=== PATIENT | male | born 1965 | race Caucasian/White ===

== ENCOUNTER → 2017-08-17 | Outpatient (CLI) | payer OTHER ==
--- NOTE | 2017-08-17 17:24 | MR ---
MR brain without contrast HISTORY: Migraine, history of TIA Correlation of previous MR brain 05/22/2017 Plain multisequence imaging obtained through the brain. The restricted diffusion seen in the parietal lobe on previous exam is somewhat less conspicuous on t jimmy's exam. There is no hemorrhage or hydrocephalus. Brain signal is stable. Periventricular increas ed signal on inversion recovery and T2-weighted sequences present, measuring approximately 9 mm in gr eatest dimension and the left frontal lobe, 9 mm in the right parietal location. There are normal vas cular flow voids. The orbits show a symmetric appearance. The corpus callosum, pituitary, cervical me dullary junction, cerebellopontine angles show a stable appearance. IMPRESSION: Findings compatible with patient's history of prior infarct. Correlate for appropriate hi story. Consider additional causes of demyelination such as multiple sclerosis, migraine headaches, hy pertension, vasculitis.
== END | disposition home or self-care (01) ==
LOC: RADMRIMAIN 15:37
PROVIDERS: ATTEND Internal Medicine
DX: G43.909 Migraine, unspecified, not intractable, without status migrainosus (principal); Z86.73 Personal history of transient ischemic attack (TIA), and cerebral infarction without residual deficits
CPT/HCPCS: 70551

== ENCOUNTER → 2017-08-27 | Outpatient (CLI) | payer OTHER ==
--- NOTE | 2017-08-27 10:46 | US ---
EXAMINATION TYPE: US venous doppler duplex LE DATE OF EXAM: 08/27/2017 10:33 AM COMPARISON: NONE CLINICAL HISTORY: R22.42 Swelling of Left R22.41 Swelling of Right. Pt states bilateral leg swelling SIDE PERFORMED: Bilateral TECHNIQUE: The lower extremity deep venous system is examined utilizing real time linear array sonog annabel with graded compression, doppler sonography and color-flow sonography. VESSELS IMAGED: External Iliac Vein (EIV) Common Femoral Vein Deep Femoral Vein Greater Saphenous Vein * Femoral Vein Popliteal Vein Small Saphenous Vein * Proximal Calf Veins (* superficial vessels) Right Leg: Negative for DVT Left Leg: Negative for DVT IMPRESSION: 1. No deep venous thrombosis bilateral lower extremities by ultrasound.
== END | disposition home or self-care (01) ==
LOC: RADUSWWP 10:10
PROVIDERS: ATTEND Internal Medicine
DX: R22.43 Localized swelling, mass and lump, lower limb, bilateral (principal)
CPT/HCPCS: 93970

== ENCOUNTER → 2017-09-08 | Outpatient (CLI) | payer OTHER ==
--- NOTE | 2017-09-15 11:16 | P.ARTDOP ---
Arterial Doppler LOWER EXTREMITY ARTERIAL DOPPLER: DATE OF SERVICE: 09/08/2017 Reason for study: Suspected PVD. Doppler waveforms: Multiphasic bilaterally throughout. Pulse volume recording: Blunted at the ankle level and monophasic at the digital level, especially on the right. Pressure gradients: Significant at the toe level on the right and somewhat on the left. Ankle-brachial indices: Greater than 1 bilaterally. Toe pressures: 0 registered on the right, 60 on the left Impression: Suspect at least moderate distal disease right worse than left. Clinical correlation recommended..
== END | disposition home or self-care (01) ==
LOC: RADUSWWP 14:11
PROVIDERS: ATTEND Podiatrist Foot & Ankle Surgery
DX: I73.9 Peripheral vascular disease, unspecified (principal)
CPT/HCPCS: 93923

== ENCOUNTER → 2017-09-08 | Outpatient (CLI) | payer OTHER ==
--- NOTE | 2017-09-08 16:11 | CT ---
EXAMINATION TYPE: CT heart w calcium score DATE OF EXAM: 09/08/2017 COMPARISON: NONE HISTORY: Screening for cardiovascular disorder. 213.9. Family history of heart disease. CVA per order . CT DLP: 70.6 mGycm Automated exposure control for dose reduction was used. CT CALCIUM SCORING Coronary calcium is a marker for plaque (fatty deposits) in a blood vessel or atherosclerosis (harden ing of the arteries). The presence and amount of calcium detected in a coronary artery by the CT sca n, indicates the presence and amount of atherosclerotic plaque. These calcium deposits appear years before the development of heart disease symptoms such as chest pain and shortness of breath. A calcium score is computed for each of the coronary arteries based upon the volume and density of th e calcium deposits. This can be referred to as your calcified plaque burden. It does not correspond directly to the percentage of narrowing in the artery but does correlate with the severity of the un derlying coronary atherosclerosis. PROCEDURE TECHNIQUE - Prospective Gating was used. Slice thickness: 3mm. Density threshold (HU): 130, Pixel threshold: 3, Algorithm: discrete. RESULTS Region: LM Calcium Score (Agatston): 1 Volume (mm3): 2 Region: RCA Calcium Score (Agatston): 9 Volume (mm3): 18 Region: LAD Calcium Score (Agatston): 96 Volume (mm3): 135 Region: CX Calcium Score (Agatston): 26 Volume (mm3): 19 Region: Other1 Calcium Score (Agatston): 6 Volume (mm3): 11 Total: Calcium Score (Agatston): 138 Volume (mm3): 185 TOTAL CALCIUM SCORE: 138 OTHER: Small sized hiatal hernia is present. Dominant left circumflex artery noted. IMPRESSION: Calcium Score: 101-400 Implication: Definite, at least moderate atherosclerotic plaque. Risk of Coronary Artery Disease: Mild coronary artery disease highly likely, significant narrowings p ossible
== END | disposition home or self-care (01) ==
LOC: RADCTMAIN 15:07
PROVIDERS: ATTEND Internal Medicine Cardiovascular Disease
DX: I25.10 Atherosclerotic heart disease of native coronary artery without angina pectoris (principal); Z86.73 Personal history of transient ischemic attack (TIA), and cerebral infarction without residual deficits
CPT/HCPCS: 75571

== ENCOUNTER → 2017-09-09 | Outpatient (CLI) | payer OTHER | END | disposition home or self-care (01) | LOC: LABWHC1 10:32 | PROVIDERS: ATTEND Internal Medicine Cardiovascular Disease | DX: E11.9 Type 2 diabetes mellitus without complications (principal) | CPT/HCPCS: 36415; 83704 ==

== ENCOUNTER 2017-09-12 22:56 | Emergency (ER) | payer OTHER ==
[2017-09-12 23:06] VITALS: BP 122/72; PULSE 78; RESP 20; TEMP 98
[2017-09-12] MEDS ORDERED: OXYMETAZOLINE 0.05% NASL SPRAY 1 SPRAY BOTTLE NASAL STA (23:43)
--- NOTE | 2017-09-12 23:49 | ED ---
ENT HPI - General Chief complaint: ENT Stated complaint: Blood leaking from ear Time Seen by Provider: 09/12/17 23:13 Source: patient Mode of arrival: ambulatory Limitations: no limitations - History of Present Illness Initial comments: This patient is a 52-year-old man who presents to be evaluated for bleeding from his ear. Patient states that he may have scratched is here earlier he does not recall, but he noticed that there was a trickle of blood from his ear continue to return he checked it. Patient does take platelet age. Patient denies change in hearing or pain. MD complaint: other (Bleeding from the ear canal) -: hour(s) Location: R ear Severity: mild Severity scale (1-10): 0 Quality: other (No pain) Consistency: constant - Related Data Home Medications Medication Instructions Recorded Confirmed Aspirin 325 mg PO DAILY 09/12/17 09/23/17 Atorvastatin [Lipitor] 40 mg PO HS 09/12/17 09/23/17 Citalopram Hydrobromide [CeleXA] 40 mg PO QAM 09/12/17 09/23/17 Docusate Sodium [Dok] 100 mg PO BID 09/12/17 09/23/17 Gabapentin 600 mg PO HS 09/12/17 09/23/17 Glimepiride [Amaryl] 1 mg PO AC-BRKFST 09/12/17 09/23/17 Lisinopril [Zestril] 20 mg PO BID 09/12/17 09/23/17 Lurasidone HCl [Latuda] 20 mg PO HS 09/12/17 09/23/17 amLODIPine [Norvasc] 5 mg PO BID 09/12/17 09/23/17 cloNIDine HCL [Catapres] 0.2 mg PO TID 09/12/17 09/23/17 metFORMIN HCL 1,000 mg PO BID 09/12/17 09/23/17 sitaGLIPtin [Januvia] 100 mg PO QAM 09/12/17 09/23/17 Butalb/Asprin/Caff 50-325-40Mg 1 cap PO Q6H PRN 09/23/17 09/23/17 [Fiorinal 50-325-40 MG] Allergies Allergy/AdvReac Type Severity Reaction Status Date / Time Iodinated Contrast- Oral and Allergy Nausea & Verified 09/23/17 15:21 IV Dye Vomiting Review of Systems ROS Statement: Those systems with pertinent positive or pertinent negative responses have been documented in the HPI. ROS Other: All systems not noted in ROS Statement are negative. Constitutional: Denies: fever, chills ENT: Denies: ear pain, throat pain, hearing loss Respiratory: Denies: cough, dyspnea Cardiovascular: Denies: palpitations Skin: Denies: rash Neurological: Denies: headache, weakness, numbness Past Medical History Past Medical History: CVA/TIA, Hypertension History of Any Multi-Drug Resistant Organisms: None Reported Past Surgical History: No Surgical Hx Reported Past Psychological History: No Psychological Hx Reported Smoking Status: Never smoker Past Alcohol Use History: None Reported Past Drug Use History: None Reported General Exam Limitations: no limitations General appearance: alert, in no apparent distress Head exam: Present: atraumatic, normocephalic Eye exam: Present: normal appearance. Absent: scleral icterus, conjunctival injection ENT exam: Present: TM's normal bilaterally, normal external ear exam, other ( There is an excoriation in the right ear canal with a small amount of dark red blood at the site.) Neck exam: Present: normal inspection, full ROM. Absent: lymphadenopathy Skin exam: Present: warm, dry, normal color. Absent: rash Course Vital Signs 09/12/17 23:04 Temperature 98.0 F Pulse Rate 78 Respiratory 20 Rate Blood Pressure 122/72 O2 Sat by Pulse 100 Oximetry Medical Decision Making - Medical Decision Making I did apply a small amount of oxymetazoline alone using applicator swab, and then observed there was no active bleeding. Discussed appropriate further care and follow-up as well as return parameters. Disposition Clinical Impression: Excoriation of ear canal Disposition: HOME SELF-CARE Condition: Good Instructions: Earache (ED) Referrals: Lamar Scott MD [Primary Care Provider] - 1-2 days
== END 2017-09-13 00:57 | disposition home or self-care (01) ==
LOC: EC 22:56
DX: S00.411A Abrasion of right ear, initial encounter (principal); I10 Essential (primary) hypertension; Z86.73 Personal history of transient ischemic attack (TIA), and cerebral infarction without residual deficits; Z79.82 Long term (current) use of aspirin; Z79.899 Other long term (current) drug therapy; Z79.84 Long term (current) use of oral hypoglycemic drugs; Z91.041 Radiographic dye allergy status
CPT/HCPCS: 99282

== ENCOUNTER → 2017-09-25 | Outpatient (CLI) | payer OTHER ==
[2017-09-25 17:02] LABS: HCT 29.3 % (39.0-53.0); HGB 10.1 gm/dL (13.0-17.5); MCH 29.2 pg (25.0-35.0); MCHC 34.4 g/dL (31.0-37.0); MCV 84.8 fL (80.0-100.0); Mean Platelet Volume 6.9; Platelet Count 177 k/uL (150-450); RBC 3.45 m/uL (4.30-5.90); RDW 13.5 % (11.5-15.5); WBC 7.4 k/uL (3.8-10.6)
[2017-09-25 17:10] LABS: Potassium 4.6 mmol/L (3.5-5.1)
== END | disposition home or self-care (01) ==
LOC: LABPAT 16:04
PROVIDERS: ATTEND Internal Medicine Cardiovascular Disease
DX: Z01.812 Encounter for preprocedural laboratory examination (principal); R94.30 Abnormal result of cardiovascular function study, unspecified
CPT/HCPCS: 80051; 82565; 84520; 85027

== ENCOUNTER 2017-09-29 09:30 | Observation (INO) | payer OTHER ==
[2017-09-29] MEDS ORDERED: LORazepam 2 MG/ML INJ IV STA (09:37)
[2017-09-29] MEDS ORDERED: NITROGLYCERIN OINT 1 INCH/GM PACKET TOPICAL STA (09:37)
[2017-09-29] MEDS ORDERED: ASPIRIN 81 MG PO STA ×2 (09:37→11:29)
[2017-09-29] MEDS ORDERED: ONDANSETRON 4 MG/2 ML VIAL IVP STA (09:37)
--- NOTE | 2017-09-29 09:41 | ED ---
General Adult HPI - General Chief complaint: Weakness Stated complaint: Weakness Time Seen by Provider: 09/29/17 09:30 Source: patient, RN notes reviewed Mode of arrival: EMS Limitations: no limitations - History of Present Illness Initial comments: This is a 52-year-old male with past medical history of diabetes hypertension high cholesterol. Patient states that he also had some heart damage recently was supposed to be eating a catheterization today at 9:00. Patient also has had a stroke in the past. Patient comes in today stating that since last night his been having some chest pain radiates to his back is been short of breath states he is a little sweaty and nauseated. Patient states he vomited times one. Patient states currently has no chest pain but he does have some back pain still. Patient denies any abdominal pain patient denies any headache patient denies lightheadedness or dizziness. Patient denies any recent fever chills. Patient denies any cough. Patient also complains of having some tremors lately. He says the shaking seems of gotten worse today. - Related Data Home Medications Medication Instructions Recorded Confirmed Aspirin 325 mg PO DAILY 09/12/17 09/29/17 Atorvastatin [Lipitor] 40 mg PO HS 09/12/17 09/29/17 Citalopram Hydrobromide [CeleXA] 40 mg PO QAM 09/12/17 09/29/17 Docusate Sodium [Dok] 100 mg PO BID 09/12/17 09/29/17 Gabapentin 600 mg PO HS 09/12/17 09/29/17 Glimepiride [Amaryl] 1 mg PO AC-BRKFST 09/12/17 09/29/17 Lisinopril [Zestril] 20 mg PO BID 09/12/17 09/29/17 Lurasidone HCl [Latuda] 20 mg PO HS 09/12/17 09/29/17 amLODIPine [Norvasc] 5 mg PO BID 09/12/17 09/29/17 cloNIDine HCL [Catapres] 0.2 mg PO TID 09/12/17 09/29/17 metFORMIN HCL 1,000 mg PO BID 09/12/17 09/29/17 sitaGLIPtin [Januvia] 100 mg PO QAM 09/12/17 09/29/17 Butalb/Asprin/Caff 50-325-40Mg 1 cap PO Q6H PRN 09/23/17 09/29/17 [Fiorinal 50-325-40 MG] Allergies Allergy/AdvReac Type Severity Reaction Status Date / Time Iodinated Contrast- Oral and Allergy Nausea & Verified 09/29/17 09:52 IV Dye Vomiting Review of Systems ROS Statement: Those systems with pertinent positive or pertinent negative responses have been documented in the HPI. ROS Other: All systems not noted in ROS Statement are negative. Past Medical History Past Medical History: CVA/TIA, Diabetes Mellitus, Hyperlipidemia, Hypertension, Myocardial Infarction ([place]), Renal Disease, Rheumatoid Arthritis ([place]) Additional Past Medical History / Comment(s): stroke nov, migranes, diabetic neuropathy arms and legs, stage 2 kidney failure Last Myocardial Infarction Date:: 2014? not sure History of Any Multi-Drug Resistant Organisms: None Reported Past Surgical History: No Surgical Hx Reported Past Anesthesia/Blood Transfusion Reactions: Unable to Obtain Additional Past Anesthesia/Blood Transfusion Reaction / Comment(s): never had anethesia Past Psychological History: Anxiety, Depression Smoking Status: Never smoker Past Alcohol Use History: None Reported Past Drug Use History: None Reported - Past Family History Mother Family Medical History: CVA/TIA, Diabetes Mellitus, Hypertension Father Family Medical History: CVA/TIA, Diabetes Mellitus, Myocardial Infarction ([place]) General Exam - General Exam Comments Initial Comments: GENERAL: Patient is well-developed and well-nourished. Patient is nontoxic and well- hydrated and is in mild distress. ENT: Neck is soft and supple. No significant lymphadenopathy is noted. Oropharynx is clear. Moist mucous membranes. EYES: The sclera were anicteric and conjunctiva were pink and moist. Extraocular movements were intact and pupils were equal round and reactive to light. Eyelids were unremarkable. PULMONARY: Unlabored respirations. Good breath sounds bilaterally. No audible rales rhonchi or wheezing was noted. CARDIOVASCULAR: There is a regular rate and rhythm without any murmurs gallops or rubs. ABDOMEN: Soft and nontender with normal bowel sounds. No palpable organomegaly was noted. There is no palpable pulsatile mass. SKIN: Skin is clear with no lesions or rashes and otherwise unremarkable. NEUROLOGIC: Patient is alert and oriented x3. Cranial nerves II through XII are grossly intact. Motor and sensory are also intact. Normal speech, volume and content. Symmetrical smile. Patient has a slight tremor. MUSCULOSKELETAL: Normal extremities with adequate strength and full range of motion. No lower extremity swelling or edema. No calf tenderness. LYMPHATICS: No significant lymphadenopathy is noted PSYCHIATRIC: Normal psychiatric evaluation. Normal interpersonal interactions appears functionally intact in deals appropriately with others. No signs of depression. No signs of anxiety. Limitations: no limitations Course Vital Signs 09/29/17 09/29/17 09:34 10:32 Temperature 98.8 F Pulse Rate 92 93 Respiratory 18 17 Rate Blood Pressure 208/98 169/92 O2 Sat by Pulse 100 100 Oximetry Medical Decision Making - Medical Decision Making EKG shows normal sinus rhythm at 92 bpm OH interval 156 QRS 110 QT interval 380 QTC is 469. Patient's EKG shows no ST segment elevation or depression or T wave abnormalities are noted. I spoke with Kristi and she wanted the patient heparinized I spoke with the Dr. Pizarro he agreed to admit the patient admitted the patient I wrote admitting orders. I consult cardiology. I continued heparin and aspirin and Nitropaste on the floor. - Lab Data Result diagrams: 09/29/17 09:50 09/29/17 09:50 Lab Results 09/29/17 09/29/17 09/29/17 Range/Units 09:50 09:50 09:50 WBC 13.2 H (3.8-10.6) k/uL RBC 4.38 (4.30-5.90) m/uL Hgb 12.4 L (13.0-17.5) gm/dL Hct 36.6 L (39.0-53.0) % MCV 83.6 (80.0-100.0) fL MCH 28.3 (25.0-35.0) pg MCHC 33.8 (31.0-37.0) g/dL RDW 13.3 (11.5-15.5) % Plt Count 202 (150-450) k/uL Neutrophils % 88 % Lymphocytes % 7 % Monocytes % 4 % Eosinophils % 0 % Basophils % 0 % Neutrophils # 11.5 H (1.3-7.7) k/uL Lymphocytes # 0.9 L (1.0-4.8) k/uL Monocytes # 0.5 (0-1.0) k/uL Eosinophils # 0.1 (0-0.7) k/uL Basophils # 0.0 (0-0.2) k/uL PT (9.0-12.0) sec INR (<1.2) APTT (22.0-30.0) sec Sodium 143 (137-145) mmol/L Potassium 5.6 H (3.5-5.1) mmol/L Chloride 102 (98-107) mmol/L Carbon Dioxide 24 (22-30) mmol/L Anion Gap 17 mmol/L BUN 18 (9-20) mg/dL Creatinine 1.03 (0.66-1.25) mg/dL Est GFR (CKD-EPI)AfAm >90 (>60 ml/min/1.73 sqM) Est GFR (CKD-EPI)NonAf 85 (>60 ml/min/1.73 sqM) Glucose 278 H (74-99) mg/dL Calcium 10.0 (8.4-10.2) mg/dL Magnesium 1.5 L (1.6-2.3) mg/dL Total Bilirubin 0.6 (0.2-1.3) mg/dL AST 22 (17-59) U/L ALT 39 (21-72) U/L Alkaline Phosphatase 125 (38-126) U/L Total Creatine Kinase 143 (55-170) U/L CK-MB (CK-2) 2.3 (0.0-2.4) ng/mL CK-MB (CK-2) Rel Index 1.6 Troponin I <0.012 (0.000-0.034) ng/mL Total Protein 8.0 (6.3-8.2) g/dL Albumin 4.9 (3.5-5.0) g/dL 09/29/17 Range/Units 09:50 WBC (3.8-10.6) k/uL RBC (4.30-5.90) m/uL Hgb (13.0-17.5) gm/dL Hct (39.0-53.0) % MCV (80.0-100.0) fL MCH (25.0-35.0) pg MCHC (31.0-37.0) g/dL RDW (11.5-15.5) % Plt Count (150-450) k/uL Neutrophils % % Lymphocytes % % Monocytes % % Eosinophils % % Basophils % % Neutrophils # (1.3-7.7) k/uL Lymphocytes # (1.0-4.8) k/uL Monocytes # (0-1.0) k/uL Eosinophils # (0-0.7) k/uL Basophils # (0-0.2) k/uL PT 10.8 (9.0-12.0) sec INR 1.1 (<1.2) APTT 23.2 (22.0-30.0) sec Sodium (137-145) mmol/L Potassium (3.5-5.1) mmol/L Chloride (98-107) mmol/L Carbon Dioxide (22-30) mmol/L Anion Gap mmol/L BUN (9-20) mg/dL Creatinine (0.66-1.25) mg/dL Est GFR (CKD-EPI)AfAm (>60 ml/min/1.73 sqM) Est GFR (CKD-EPI)NonAf (>60 ml/min/1.73 sqM) Glucose (74-99) mg/dL Calcium (8.4-10.2) mg/dL Magnesium (1.6-2.3) mg/dL Total Bilirubin (0.2-1.3) mg/dL AST (17-59) U/L ALT (21-72) U/L Alkaline Phosphatase (38-126) U/L Total Creatine Kinase (55-170) U/L CK-MB (CK-2) (0.0-2.4) ng/mL CK-MB (CK-2) Rel Index Troponin I (0.000-0.034) ng/mL Total Protein (6.3-8.2) g/dL Albumin (3.5-5.0) g/dL Critical Care Time Critical Care Time: Yes Total Critical Care Time: 35 Disposition Clinical Impression: Unstable angina, Acute vomiting Disposition: ADMITTED IP TO THIS HOSP Referrals: Lamar Scott MD [Primary Care Provider] - 1-2 days Time of Disposition: 11:29
[2017-09-29 10:09] LABS: Basophils % (A) 0 %; Eosinophils # (A) 0.1 k/uL (0-0.7); Eosinophils % (A) 0 %; HCT 36.6 % (39.0-53.0); HGB 12.4 gm/dL (13.0-17.5); Lymphocytes # (A) 0.9 k/uL (1.0-4.8); Lymphocytes % (A) 7 %; MCH 28.3 pg (25.0-35.0); MCHC 33.8 g/dL (31.0-37.0); MCV 83.6 fL (80.0-100.0); Mean Platelet Volume 6.8; Monocytes # (A) 0.5 k/uL (0-1.0); Monocytes % (A) 4 %; Neutrophils # (A) 11.5 k/uL (1.3-7.7); Neutrophils % (A) 88 %; Platelet Count 202 k/uL (150-450); RBC 4.38 m/uL (4.30-5.90); RDW 13.3 % (11.5-15.5); WBC 13.2 k/uL (3.8-10.6)
[2017-09-29 10:12] LABS: INR 1.1 (<1.2); Partial Thromboplastin Time 23.2 sec (22.0-30.0); Prothrombin Time 10.8 sec (9.0-12.0)
[2017-09-29 10:17] LABS: ALT 39 U/L (21-72); AST 22 U/L (17-59); Albumin 4.9 g/dL (3.5-5.0); Alkaline Phosphatase 125 U/L (38-126); Blood Urea Nitrogen 18 mg/dL (9-20); Carbon Dioxide 24 mmol/L (22-30); Glucose 278 mg/dL (74-99); Magnesium 1.5 mg/dL (1.6-2.3); Potassium 5.6 mmol/L (3.5-5.1); Sodium 143 mmol/L (137-145); Total Bilirubin 0.6 mg/dL (0.2-1.3)
--- NOTE | 2017-09-29 10:19 | XR ---
EXAMINATION TYPE: XR chest 2V DATE OF EXAM: 09/29/2017 COMPARISON: NONE HISTORY: Shortness of breath TECHNIQUE: Frontal and lateral views of the chest are obtained. FINDINGS: Scattered senescent parenchymal changes noted. Hyperinflation compatible with COPD. No evidence for infiltrate. No evidence for atelectasis. Heart size is stable. Mediastinal structures are stable and grossly unremarkable. No evidence for hilar prominence. Degenerative changes dorsal spine. IMPRESSION: 1. No evidence for acute pulmonary disease.
[2017-09-29 10:31] LABS: Anion Gap 17 mmol/L; Chloride 102 mmol/L (98-107)
[2017-09-29 10:37] LABS: Creatine Kinase 143 U/L (55-170)
[2017-09-29 10:49] LABS: Creatine Kinase MB 2.3 ng/mL (0.0-2.4); Troponin I <0.012 ng/mL (0.000-0.034)
[2017-09-29] MEDS ORDERED: MAGNESIUM SULFATE-D5W PMX 1 GM in DEXTROSE/WATER 1 100ML.BAG IVPB ONE (10:53)
[2017-09-29] MEDS ORDERED: HEPARIN SODIUM,PORCINE 5,000 UNIT/ML 1 ML VIAL IV ONE (11:26)
[2017-09-29] MEDS ORDERED: NITROGLYCERIN SL TABS 0.4 MG TAB SUBLINGUAL PRN (11:29)
[2017-09-29] MEDS ORDERED: HEPARIN SOD,PORK IN 0.45% NACL 25,000 UNIT in 0.45% NACL 1 500ML.BAG IV SCH (11:30)
[2017-09-29 16:38] LABS: Creatine Kinase MB 1.6 ng/mL (0.0-2.4); Troponin I 0.031 ng/mL (0.000-0.034)
[2017-09-29] MEDS ORDERED: amLODIPine 10 MG TAB PO SCH (17:00)
--- NOTE | 2017-09-29 17:01 | P.CRDCN ---
History of Present Illness Consult date: 09/29/17 Requesting physician: Bryant Pizarro Chief complaint: Fever or chills History of present illness: This is a 52-year-old gentleman with a documented history of diabetes , hypertension, hyperlipidemia, recent CVA, family history of premature coronary artery disease, who underwent a [facility] test at [facility], which revealed evidence of moderate size perfusion defect in the inferior lateral segment with partial reversibility. For this reason he was advised to undergo cardiac catheterization which was actually scheduled as an outpatient for him today. According to the patient, over the past couple of days he has been running fever and chills at home. As of this morning he started also vomiting a significant amount at home and continuing to have chills. For this reason he came to the emergency room for further evaluation. He denies any overt chest discomfort but states he does have a discomfort which starts of his rib cage and radiates up his back. Chest x-ray does not reveal any evidence for acute pulmonary disease. EKG shows a normal sinus rhythm with incomplete left bundle branch block and nonspecific ST-T wave changes. White blood cell count 13.2, hemoglobin 12.4, platelet count 202. Sodium 143, potassium 5.6, BUN 18, creatinine 1.0. Magnesium level on admission 1.5. Troponin 0.012. At the time of my examination today, patient continues to have chills, denies any chest pain. Vomiting seems to have subsided. Temperature on arrival 98.8, blood pressure on arrival 208/98, heart rate in the 90s, 100% on room air. Past Medical History Past Medical History: CVA/TIA, Diabetes Mellitus, Hyperlipidemia, Hypertension, Myocardial Infarction ([place]), Renal Disease, Rheumatoid Arthritis (RA) Additional Past Medical History / Comment(s): NIDDM type II, neuropathy bilateral hands/arms and feet/legs, diabetic retinopathy bilaterally/legally blind, silent ND per echo/stress test, CVA 04/2017, chronic kidney disease stage II, migraines. Last Myocardial Infarction Date:: unknown-silent History of Any Multi-Drug Resistant Organisms: None Reported Past Surgical History: No Surgical Hx Reported Past Anesthesia/Blood Transfusion Reactions: Unable to Obtain Additional Past Anesthesia/Blood Transfusion Reaction / Comment(s): never had anethesia Smoking Status: Never smoker - Past Family History Mother Family Medical History: CVA/TIA, Diabetes Mellitus, Hypertension Additional Family Medical History / Comment(s): Mother is 77yrs old. Father Family Medical History: CVA/TIA, Diabetes Mellitus, Myocardial Infarction (ND) Additional Family Medical History / Comment(s): Father of a ND in his 50s. Medications and Allergies Home Medications Medication Instructions Recorded Confirmed Type Aspirin 325 mg PO DAILY 09/12/17 09/29/17 History Atorvastatin [Lipitor] 40 mg PO HS 09/12/17 09/29/17 History Citalopram Hydrobromide [CeleXA] 40 mg PO QAM 09/12/17 09/29/17 History Docusate Sodium [Dok] 100 mg PO BID 09/12/17 09/29/17 History Gabapentin 600 mg PO HS 09/12/17 09/29/17 History Glimepiride [Amaryl] 1 mg PO AC-BRKFST 09/12/17 09/29/17 History Lisinopril [Zestril] 20 mg PO BID 09/12/17 09/29/17 History Lurasidone HCl [Latuda] 20 mg PO HS 09/12/17 09/29/17 History amLODIPine [Norvasc] 5 mg PO BID 09/12/17 09/29/17 History cloNIDine HCL [Catapres] 0.2 mg PO TID 09/12/17 09/29/17 History metFORMIN HCL 1,000 mg PO BID 09/12/17 09/29/17 History sitaGLIPtin [Januvia] 100 mg PO QAM 09/12/17 09/29/17 History Butalb/Asprin/Caff 50-325-40Mg 1 cap PO Q6H PRN 09/23/17 09/29/17 History [Fiorinal 50-325-40 MG] Allergies Allergy/AdvReac Type Severity Reaction Status Date / Time Iodinated Contrast- Oral and Allergy Nausea & Verified 09/29/17 09:52 IV Dye Vomiting Physical Exam Vitals: Vital Signs Temp Pulse Resp BP Pulse Ox 09/29/17 14:35 98.3 F 76 16 152/77 99 09/29/17 13:14 86 18 170/83 100 09/29/17 12:41 91 17 145/77 97 09/29/17 11:33 98.4 F 80 18 151/72 100 09/29/17 10:32 93 17 169/92 100 09/29/17 09:34 98.8 F 92 18 208/98 100 Intake and Output 09/29/17 09/29/17 09/29/17 06:59 14:59 22:59 Other: Weight 86.183 kg PHYSICAL EXAMINATION: 52-year-old male, currently experiencing chills HEENT: Head is atraumatic, normocephalic. Pupils equal, round. Neck is supple. There is no elevated jugular venous pressure. HEART EXAMINATION: Heart S1, S2 normal. No murmur or gallop heard. CHEST EXAMINATION: Lungs are clear to auscultation and precussion. No chest wall tenderness is noted on palpation or with deep breathing. ABDOMEN: Soft, nontender. Bowel sounds are heard. No organomegaly noted. EXTREMITIES: 2+ peripheral pulses with no evidence of peripheral edema and no calf tenderness noted. NEUROLOGIC patient is awake, alert and oriented -3. . Results 09/29/17 09:50 09/29/17 09:50 Cardiac Enzymes 09/29/17 09/29/17 Range/Units 09:50 09:50 AST 22 (17-59) U/L CK-MB (CK-2) 2.3 (0.0-2.4) ng/mL Troponin I <0.012 (0.000-0.034) ng/mL Coagulation 09/29/17 Range/Units 09:50 PT 10.8 (9.0-12.0) sec APTT 23.2 (22.0-30.0) sec CBC 09/29/17 Range/Units 09:50 WBC 13.2 H (3.8-10.6) k/uL RBC 4.38 (4.30-5.90) m/uL Hgb 12.4 L (13.0-17.5) gm/dL Hct 36.6 L (39.0-53.0) % Plt Count 202 (150-450) k/uL Comprehensive Metabolic Panel 09/29/17 Range/Units 09:50 Sodium 143 (137-145) mmol/L Potassium 5.6 H (3.5-5.1) mmol/L Chloride 102 (98-107) mmol/L Carbon Dioxide 24 (22-30) mmol/L BUN 18 (9-20) mg/dL Creatinine 1.03 (0.66-1.25) mg/dL Glucose 278 H (74-99) mg/dL Calcium 10.0 (8.4-10.2) mg/dL AST 22 (17-59) U/L ALT 39 (21-72) U/L Alkaline Phosphatase 125 (38-126) U/L Total Protein 8.0 (6.3-8.2) g/dL Albumin 4.9 (3.5-5.0) g/dL Current Medications Generic Name Dose Route Start Last Admin Trade Name Freq PRN Reason Stop Dose Admin Aspirin 325 mg 09/30/17 09:00 Aspirin PO DAILY [facility] Heparin Sodium/Sodium Chloride 500 mls @ 19.99 mls/hr 09/29/17 11:30 12:40 25,000 unit/ Sodium Chloride IV 11.6 units/kg/hr .Q24H JAD 19.99 mls/hr Protocol Administration 11.6 UNITS/KG/HR Nitroglycerin 1 inch 09/29/17 18:00 Nitro-Bid Oint TOPICAL Q6HR [facility] Nitroglycerin 0.4 mg 09/29/17 11:29 Nitrostat SUBLINGUAL Q5M PRN Chest Pain Intake and Output 09/29/17 09/29/17 09/29/17 06:59 14:59 22:59 Other: Weight 86.183 kg Patient Weight 09/30/17 06:59 Weight 86.183 kg 09/29/17 09:50 09/29/17 09:50 EKG Interpretations (text) EKG shows normal sinus rhythm with an incomplete right bundle branch block pattern. Assessment and Plan Plan: Assessment and plan #1 symptoms of 2 day duration of fever and chills, vomiting, rule out influenza. White blood cell count 13.2 on admission. Temperature 98.8 on admission. #2 hypertension, blood pressure 208/98 on admission. #3 symptoms of back discomfort, with some radiation to the chest. Initial troponin 0.012, subsequent troponin 0.031. #4 hypomagnesemia, replaced #5 hyperkalemia, potassium 5.6 #6 diabetes #7 hyperlipidemia #8 prior stroke #9 family history of premature coronary artery disease #10 recent stress test positive for reversible ischemia, patient was scheduled to undergo cardiac catheterization as an outpatient today. This has currently been deferred. Plan We will obtain copy of recent echo performed in the office. We'll also obtain a flu swab. Reorder patient's antihypertensive medications. At this point in time, the cardiac catheterization has been placed on hold, we will continue to follow. DNP note has been reviewed, I agree with a documented findings and plan of care. Patient was seen and examined.
[2017-09-29 17:02] LABS: Glucose,Whole Blood 170 mg/dL (75-99)
[2017-09-29 18:41] LABS: Anion Gap 12 mmol/L; Blood Urea Nitrogen 17 mg/dL (9-20); Calcium 9.4 mg/dL (8.4-10.2); Carbon Dioxide 25 mmol/L (22-30); Chloride 103 mmol/L (98-107); Glucose 165 mg/dL (74-99); Potassium 4.6 mmol/L (3.5-5.1); Sodium 140 mmol/L (137-145)
[2017-09-29] MEDS: cloNIDine HCL 0.2 MG TAB PO SCH ×2 (18:55→21:28)
[2017-09-29] MEDS: NITROGLYCERIN OINT 1 INCH/GM PACKET TOPICAL SCH ×2 (18:56→23:35)
[2017-09-29 20:50] LABS: Glucose,Whole Blood 227 mg/dL (75-99)
[2017-09-29] MEDS: LURASIDONE 40 MG TAB PO SCH (21:21)
[2017-09-29] MEDS: DOCUSATE 100 MG CAP PO SCH (21:21)
[2017-09-29] MEDS: GABAPENTIN 300 MG CAP PO SCH (21:21)
[2017-09-29] MEDS: MELATONIN 3 MG TABLET PO SCH (21:27)
[2017-09-29] MEDS: INSULIN ASPART 100 UNIT/ML 1 ML 10 ML VIAL SQ SCH (21:28)
[2017-09-29 21:37] LABS: Creatine Kinase MB 1.4 ng/mL (0.0-2.4); Troponin I 0.025 ng/mL (0.000-0.034)
--- NOTE | 2017-09-30 00:57 | P.HPIM ---
History of Present Illness H&P Date: 09/29/17 Chief Complaint: Fever and chills Patient is a 52-year-old male with a known history of hypertension, hyperlipidemia, history of CVA with mild residual left-sided weakness and diabetes type 2 came to ER with complaints of fever and chills and episode of vomiting in the morning today. Patient was taking shower and became very shaky. Patient did have some chest discomfort and was radiating to the back as a time. Currently patient denied any chest pain. Chest x-ray showed no evidence of acute cardio pulmonary process EKG showed normal sinus rhythm. Patient is supposed to have cardiac catheterization today. Patient is following with cardiology clinic and recently had stress test which showed moderate reversible ischemia. Influenza is negative. Currently saturating well on room air. Blood pressure 208/108 on admission Initial troponin 0.012, subsequent troponin 0.031. Review of Systems Constitutional: Fever and chills . No generalized weakness or weight loss. Abdomen: Patient denied nausea vomiting and diarrhea and abdominal pain. Cardiovascular: Chest pain. No short of breath no palpitations. Respiratory: patient denied any cough is from production. No shortness of breath Neurologic: Patient denied any numbness or tingling headache. Musculoskeletal: Patient denies any complaints of joint swelling or deformity. Skin: Negative Psychiatric: Negative Endocrine: No heat or cold intolerance. No recent weight gain. Genitourinary: No dysuria or hematuria. All other 14 point ROS negative except the above Past Medical History Past Medical History: CVA/TIA, Diabetes Mellitus, Hyperlipidemia, Hypertension, Myocardial Infarction ([place]), Renal Disease, Rheumatoid Arthritis (RA) Additional Past Medical History / Comment(s): stroke nov, migranes, diabetic neuropathy arms and legs, stage 2 kidney failure Last Myocardial Infarction Date:: 2014? not sure History of Any Multi-Drug Resistant Organisms: None Reported Past Surgical History: No Surgical Hx Reported Past Anesthesia/Blood Transfusion Reactions: Unable to Obtain Additional Past Anesthesia/Blood Transfusion Reaction / Comment(s): never had anethesia Past Psychological History: Anxiety, Depression Smoking Status: Never smoker Past Alcohol Use History: None Reported Past Drug Use History: None Reported - Past Family History Mother Family Medical History: CVA/TIA, Diabetes Mellitus, Hypertension Father Family Medical History: CVA/TIA, Diabetes Mellitus, Myocardial Infarction ([place]) Medications and Allergies Home Medications Medication Instructions Recorded Confirmed Type Aspirin 325 mg PO DAILY 09/12/17 09/29/17 History Atorvastatin [Lipitor] 40 mg PO HS 09/12/17 09/29/17 History Citalopram Hydrobromide [CeleXA] 40 mg PO QAM 09/12/17 09/29/17 History Docusate Sodium [Dok] 100 mg PO BID 09/12/17 09/29/17 History Gabapentin 600 mg PO HS 09/12/17 09/29/17 History Glimepiride [Amaryl] 1 mg PO AC-BRKFST 09/12/17 09/29/17 History Lisinopril [Zestril] 20 mg PO BID 09/12/17 09/29/17 History Lurasidone HCl [Latuda] 20 mg PO HS 09/12/17 09/29/17 History amLODIPine [Norvasc] 5 mg PO BID 09/12/17 09/29/17 History cloNIDine HCL [Catapres] 0.2 mg PO TID 09/12/17 09/29/17 History metFORMIN HCL 1,000 mg PO BID 09/12/17 09/29/17 History sitaGLIPtin [Januvia] 100 mg PO QAM 09/12/17 09/29/17 History Butalb/Asprin/Caff 50-325-40Mg 1 cap PO Q6H PRN 09/23/17 09/29/17 History [Fiorinal 50-325-40 MG] Allergies Allergy/AdvReac Type Severity Reaction Status Date / Time Iodinated Contrast- Oral and Allergy Nausea & Verified 09/29/17 09:52 IV Dye Vomiting Physical Exam Vitals: Vital Signs Temp Pulse Resp BP Pulse Ox 09/29/17 12:41 91 17 145/77 97 09/29/17 11:33 98.4 F 80 18 151/72 100 09/29/17 10:32 93 17 169/92 100 09/29/17 09:34 98.8 F 92 18 208/98 100 Intake and Output 09/28/17 09/29/17 09/29/17 22:59 06:59 14:59 Other: Weight 86.183 kg PHYSICAL EXAMINATION: Patient is lying in the bed comfortably, no acute distress, awake alert and oriented.. HEENT: Normocephalic. Neck is supple. Pupils reactive. Nostrils clear. Oral cavity is moist. Ears reveal no drainage. Neck reveals no JVD, carotid bruits, or thyromegaly. CHEST EXAMINATION: Trachea is central. Symmetrical expansion. Lung ricks clear to auscultation and percussion. CARDIAC: Normal S1, S2 with no gallops. No murmurs ABDOMEN: Soft. Bowel sounds normal. No organomegaly. No abdominal bruits. Extremities: reveal no edema. No clubbing or cyanosis Neurologically awake, alert, oriented x3 with well-coordinated movements. No focal deficits noted Skin: No rash or skin lesions. Psychiatric: Coperative. Nonsuicidal Musculoskeletal: No joint swelling or deformity. Normal range of motion. Results CBC & Chem 7: 09/29/17 09:50 09/29/17 17:46 Labs: Abnormal Lab Results - Last 24 Hours (Table) 09/29/17 09/29/17 Range/Units 09:50 09:50 WBC 13.2 H (3.8-10.6) k/uL Hgb 12.4 L (13.0-17.5) gm/dL Hct 36.6 L (39.0-53.0) % Neutrophils # 11.5 H (1.3-7.7) k/uL Lymphocytes # 0.9 L (1.0-4.8) k/uL Potassium 5.6 H (3.5-5.1) mmol/L Glucose 278 H (74-99) mg/dL Magnesium 1.5 L (1.6-2.3) mg/dL Thrombosis Risk Factor Assmnt - DVT/VTE Prophylaxis DVT/VTE Prophylaxis: Pharmacologic Prophylaxis ordered Assessment and Plan Assessment: Fever and chills on admission likely due to viral illness. Influenza negative. Hypertensive urgency on admission Atypical chest pain. Mainly right lower rib cage. Rule out ACS Hyperkalemia mild hypomagnesemia Diabetes type 2 [id number] Hypertension History of CVA with mild left-sided weakness Recent stress test [facility] office showed moderate ischemia reversible. Patient is supposed to get cardiac Catheterization today morning. Plan: Patient be continued on telemetry monitoring. Serial troponin and EKG. Patient was started on heparin drip and cardiology is following. Continue with aspirin and statins. Further recommendations based on the clinical course. Time with Patient: Greater than 30
[2017-09-30 01:27] LABS: Hemoglobin A1C 6.8 % (4.0-6.0)
[2017-09-30 04:57] LABS: Basophils % (A) 0 %; Eosinophils # (A) 0.1 k/uL (0-0.7); Eosinophils % (A) 1 %; HCT 31.2 % (39.0-53.0); HGB 10.9 gm/dL (13.0-17.5); Lymphocytes # (A) 2.2 k/uL (1.0-4.8); Lymphocytes % (A) 29 %; MCHC 34.8 g/dL (31.0-37.0); MCV 83.1 fL (80.0-100.0); Mean Platelet Volume 6.6; Monocytes # (A) 0.6 k/uL (0-1.0); Monocytes % (A) 7 %; Neutrophils # (A) 4.4 k/uL (1.3-7.7); Neutrophils % (A) 59 %; Platelet Count 204 k/uL (150-450); RBC 3.75 m/uL (4.30-5.90); RDW 13.3 % (11.5-15.5); WBC 7.5 k/uL (3.8-10.6)
[2017-09-30 05:13] LABS: Calcium 9.1 mg/dL (8.4-10.2); Potassium 4.4 mmol/L (3.5-5.1)
[2017-09-30 06:13] LABS: Glucose,Whole Blood 197 mg/dL (75-99)
[2017-09-30] MEDS: NITROGLYCERIN OINT 1 INCH/GM PACKET TOPICAL SCH ×2 (06:35→13:01)
[2017-09-30] MEDS: INSULIN ASPART 100 UNIT/ML 1 ML 10 ML VIAL SQ SCH ×4 (06:36→21:04)
[2017-09-30] MEDS ORDERED: ATORVASTATIN 40 MG TAB PO SCH (09:00)
[2017-09-30] MEDS ORDERED: ASPIRIN 325 MG TAB PO SCH (09:00)
[2017-09-30] MEDS: LISINOPRIL 20 MG TAB PO SCH (10:04)
[2017-09-30] MEDS: amLODIPine 5 MG TAB PO SCH ×2 (10:05→20:39)
[2017-09-30] MEDS: ATORVASTATIN 20 MG TAB PO SCH ×2 (10:05→20:39)
[2017-09-30] MEDS: DOCUSATE 100 MG CAP PO SCH ×2 (10:05→20:40)
[2017-09-30] MEDS: cloNIDine HCL 0.2 MG TAB PO SCH ×3 (10:05→20:40)
[2017-09-30 11:53] LABS: Glucose,Whole Blood 190 mg/dL (75-99)
--- NOTE | 2017-09-30 12:50 | P.PN ---
Subjective Progress Note Date: 09/30/17 This is a 52-year-old gentleman with a documented history of diabetes , hypertension, hyperlipidemia, recent CVA, family history of premature coronary artery disease, who underwent a stress test at [facility], which revealed evidence of moderate size perfusion defect in the inferior lateral segment with partial reversibility. For this reason he was advised to undergo cardiac catheterization which was actually scheduled as an outpatient for him today. According to the patient, over the past couple of days he has been running fever and chills at home. As of this morning he started also vomiting a significant amount at home and continuing to have chills. For this reason he came to the emergency room for further evaluation. He denies any overt chest discomfort but states he does have a discomfort which starts of his rib cage and radiates up his back. Chest x-ray does not reveal any evidence for acute pulmonary disease. EKG shows a normal sinus rhythm with incomplete left bundle branch block and nonspecific ST-T wave changes. White blood cell count 13.2, hemoglobin 12.4, platelet count 202. Sodium 143, potassium 5.6, BUN 18, creatinine 1.0. Magnesium level on admission 1.5. Troponin 0.012. At the time of my examination today, patient continues to have chills, denies any chest pain. Vomiting seems to have subsided. Temperature on arrival 98.8, blood pressure on arrival 208/98, heart rate in the 90s, 100% on room air. 09/30/2017 Patient was seen and examined this morning, denies any further chills, no further nausea or vomiting. Blood pressure 120/60 with a heart rate in the 60s , temperature 98.1, 98% on room air. Afebrile. White blood cell count this morning 9.5, hemoglobin 10.9. Sodium 141, potassium 4.4, BUN 22, creatinine 1.2. Liver enzymes normal. Magnesium level I.8. Troponins 0.012, 0.031, 0.025. Influenza A and B-. Blood cultures pending. Objective - Vital Signs Vital signs: Vital Signs Temp 97.9 F 09/30/17 08:00 Pulse 75 09/30/17 08:00 Resp 18 09/30/17 08:00 BP 150/74 09/30/17 08:00 Pulse Ox 99 09/30/17 08:00 Intake & Output 09/29/17 09/30/17 09/30/17 18:59 06:59 18:59 Intake Total 849.558 60 Balance 849.558 60 Weight 86.183 kg 81.4 kg Intake: IV 120 Heparin Sod,Pork in 0.45% 120 NaCl 25,000 unit In 0.45 % NaCl 1 500ml.bag @ 11.6 UNITS/KG/HR 19.99 mls/hr IV .Q24H JAD Rx#: [id number] Intake, IV Titration 369.558 Amount Heparin Sod,Pork in 0.45% 369.558 NaCl 25,000 unit In 0.45 % NaCl 1 500ml.bag @ 11.6 UNITS/KG/HR 19.99 mls/hr IV .Q24H JAD Rx#: [id number] Oral 360 60 Other: # Voids 1 - Exam PHYSICAL EXAMINATION: 52-year-old male, currently experiencing chills HEENT: Head is atraumatic, normocephalic. Pupils equal, round. Neck is supple. There is no elevated jugular venous pressure. HEART EXAMINATION: Heart S1, S2 normal. No murmur or gallop heard. CHEST EXAMINATION: Lungs are clear to auscultation and precussion. No chest wall tenderness is noted on palpation or with deep breathing. ABDOMEN: Soft, nontender. Bowel sounds are heard. No organomegaly noted. EXTREMITIES: 2+ peripheral pulses with no evidence of peripheral edema and no calf tenderness noted. NEUROLOGIC patient is awake, alert and oriented -3. - Labs CBC & Chem 7: 09/30/17 04:07 09/30/17 04:07 Labs: Abnormal Lab Results - Last 24 Hours (Table) 09/29/17 09/29/17 09/29/17 Range/Units 16:51 17:46 20:49 RBC (4.30-5.90) m/uL Hgb (13.0-17.5) gm/dL Hct (39.0-53.0) % APTT (22.0-30.0) sec BUN (9-20) mg/dL Glucose 165 H (74-99) mg/dL POC Glucose (mg/dL) 170 H 227 H (75-99) mg/dL Hemoglobin A1c (4.0-6.0) % HDL Cholesterol (40-60) mg/dL 09/29/17 09/29/17 09/30/17 Range/Units 20:52 20:52 04:07 RBC (4.30-5.90) m/uL Hgb (13.0-17.5) gm/dL Hct (39.0-53.0) % APTT 31.0 H (22.0-30.0) sec BUN 22 H (9-20) mg/dL Glucose 155 H (74-99) mg/dL POC Glucose (mg/dL) (75-99) mg/dL Hemoglobin A1c 6.8 H (4.0-6.0) % HDL Cholesterol 36 L (40-60) mg/dL 09/30/17 09/30/17 09/30/17 Range/Units 04:07 04:07 06:12 RBC 3.75 L (4.30-5.90) m/uL Hgb 10.9 L (13.0-17.5) gm/dL Hct 31.2 L (39.0-53.0) % APTT 31.3 H (22.0-30.0) sec BUN (9-20) mg/dL Glucose (74-99) mg/dL POC Glucose (mg/dL) 197 H (75-99) mg/dL Hemoglobin A1c (4.0-6.0) % HDL Cholesterol (40-60) mg/dL 09/30/17 Range/Units 11:24 RBC (4.30-5.90) m/uL Hgb (13.0-17.5) gm/dL Hct (39.0-53.0) % APTT (22.0-30.0) sec BUN (9-20) mg/dL Glucose (74-99) mg/dL POC Glucose (mg/dL) 190 H (75-99) mg/dL Hemoglobin A1c (4.0-6.0) % HDL Cholesterol (40-60) mg/dL Assessment and Plan Plan: Assessment and plan #1 symptoms of 2 day duration of fever and chills, vomiting, rule out influenza. White blood cell count 13.2 on admission. Temperature 98.8 on admission. #2 hypertension, blood pressure 208/98 on admission. #3 symptoms of back discomfort, with some radiation to the chest. Initial troponin 0.012, subsequent troponin 0.031. #4 hypomagnesemia, replaced #5 hyperkalemia, potassium 5.6 #6 diabetes #7 hyperlipidemia #8 prior stroke #9 family history of premature coronary artery disease #10 recent stress test positive for reversible ischemia, patient was scheduled to undergo cardiac catheterization as an outpatient today. This has currently been deferred. Plan From cardiology's perspective, patient may be able to be discharged home once cleared by the primary. We will make him a follow-up appointment to see Dr. VC Church in the office post discharge. Outpatient cardiac catheterization will be scheduled. DNP note has been reviewed, I agree with a documented findings and plan of care. Patient was seen and examined.
[2017-09-30 14:48] LABS: Reticulocyte % 2.2 % (0.5-2.0)
[2017-09-30 17:00] LABS: Glucose,Whole Blood 205 mg/dL (75-99)
[2017-09-30 18:39] LABS: Iron Saturation 57.96 (15.00-50.00)
[2017-09-30] MEDS: MELATONIN 3 MG TABLET PO SCH (20:39)
[2017-09-30] MEDS: LURASIDONE 40 MG TAB PO SCH (20:40)
[2017-09-30] MEDS: GABAPENTIN 300 MG CAP PO SCH (20:40)
[2017-09-30 20:50] LABS: Glucose,Whole Blood 226 mg/dL (75-99)
--- NOTE | 2017-09-30 21:56 | P.PN ---
Subjective Progress Note Date: 09/30/17 Principal diagnosis: Chest pain and acute viral illness Patient is a 52-year-old male with a known history of hypertension, hyperlipidemia, history of CVA with mild residual left-sided weakness and diabetes type 2 came to ER with complaints of fever and chills and episode of vomiting in the morning today. Patient was taking shower and became very shaky. Patient did have some chest discomfort and was radiating to the back as a time. Currently patient denied any chest pain. Chest x-ray showed no evidence of acute cardio pulmonary process EKG showed normal sinus rhythm. Patient is supposed to have cardiac catheterization today. Patient is following with cardiology clinic and recently had stress test which showed moderate reversible ischemia. Influenza is negative. Currently saturating well on room air. Blood pressure 208/108 on admission Initial troponin 0.012, subsequent troponin 0.031. 09/30/2017 Patient says that he is feeling better today. Otherwise troponins are trending down. Cardiology has seen the patient and recommended possibly outpatient cardiac catheterization once patient is symptomatically much improved. No fever no chills. No complaints of chest pain or worsening shortness of breath. No nausea vomiting or abdominal pain or diarrhea. All other review of systems negative except the above Active Medications Generic Name Dose Route Start Last Admin Trade Name Freq PRN Reason Stop Dose Admin Amlodipine Besylate 5 mg 09/30/17 09:00 09/30/17 20:39 Norvasc PO 5 mg BID JAD Administration Aspirin 81 mg 10/01/17 09:00 Aspirin PO DAILY JAD Atorvastatin Calcium 20 mg 09/30/17 09:00 09/30/17 20:39 Lipitor PO 20 mg BID JAD Administration Clonidine 0.2 mg 09/29/17 17:00 09/30/17 20:40 Catapres PO 0.2 mg TID JAD Administration Docusate Sodium 100 mg 09/29/17 21:00 09/30/17 20:40 Colace PO 100 mg BID JAD Administration Gabapentin 600 mg 09/29/17 21:00 09/30/17 20:40 Neurontin PO 600 mg HS JAD Administration Insulin Aspart 0 unit 09/29/17 21:00 09/30/17 21:04 Novolog SQ 3 unit ACHS JAD Administration Protocol Lisinopril 20 mg 09/30/17 09:00 09/30/17 10:04 Zestril PO 20 mg DAILY JAD Administration Lurasidone HCl 20 mg 09/29/17 21:00 09/30/17 20:40 Latuda PO 20 mg HS JAD Administration Melatonin 3 mg 09/29/17 21:30 09/30/17 20:39 Melatonin PO 3 mg HS JAD Administration Nitroglycerin 0.4 mg 09/29/17 11:29 Nitrostat SUBLINGUAL Q5M PRN Chest Pain Objective - Vital Signs Vital signs: Vital Signs Temp 97.4 F L 09/30/17 16:00 Pulse 71 09/30/17 16:00 Resp 18 09/30/17 16:00 BP 137/74 09/30/17 16:00 Pulse Ox 99 09/30/17 16:00 Intake & Output 09/29/17 09/30/17 09/30/17 18:59 06:59 18:59 Intake Total 619.555 4275 Balance 461.237 4390 Weight 86.183 kg 81.4 kg Intake: IV 120 Heparin Sod,Pork in 0.45% 120 NaCl 25,000 unit In 0.45 % NaCl 1 500ml.bag @ 11.6 UNITS/KG/HR 19.99 mls/hr IV .Q24H JAD Rx#: [id number] Intake, IV Titration 369.558 Amount Heparin Sod,Pork in 0.45% 369.558 NaCl 25,000 unit In 0.45 % NaCl 1 500ml.bag @ 11.6 UNITS/KG/HR 19.99 mls/hr IV .Q24H JAD Rx#: [id number] Oral 360 1180 Other: # Voids 1 3 # Bowel Movements 1 - Exam PHYSICAL EXAMINATION: Patient is lying in the bed comfortably, no acute distress, awake alert and oriented.. HEENT: Normocephalic. Neck is supple. Pupils reactive. Nostrils clear. Oral cavity is moist. Ears reveal no drainage. Neck reveals no JVD, carotid bruits, or thyromegaly. CHEST EXAMINATION: Trachea is central. Symmetrical expansion. Bibasilar diminished air entry. Lung ricks clear to auscultation and percussion. CARDIAC: Normal S1, S2 with no gallops. No murmurs ABDOMEN: Soft. Bowel sounds normal. No organomegaly. No abdominal bruits. Extremities: reveal no edema. No clubbing or cyanosis Neurologically awake, alert, oriented x3 with well-coordinated movements. No focal deficits noted Skin: No rash or skin lesions. Psychiatric: Coperative. Nonsuicidal Musculoskeletal: No joint swelling or deformity. Normal range of motion. - Labs CBC & Chem 7: 09/30/17 04:07 09/30/17 04:07 Labs: Abnormal Lab Results - Last 24 Hours (Table) 09/29/17 09/29/17 09/29/17 Range/Units 17:46 20:49 20:52 RBC (4.30-5.90) m/uL Hgb (13.0-17.5) gm/dL Hct (39.0-53.0) % Retic Count (0.5-2.0) % APTT 31.0 H (22.0-30.0) sec BUN (9-20) mg/dL Glucose 165 H (74-99) mg/dL POC Glucose (mg/dL) 227 H (75-99) mg/dL Hemoglobin A1c (4.0-6.0) % HDL Cholesterol (40-60) mg/dL 09/29/17 09/30/17 09/30/17 Range/Units 20:52 04:07 04:07 RBC (4.30-5.90) m/uL Hgb (13.0-17.5) gm/dL Hct (39.0-53.0) % Retic Count (0.5-2.0) % APTT 31.3 H (22.0-30.0) sec BUN 22 H (9-20) mg/dL Glucose 155 H (74-99) mg/dL POC Glucose (mg/dL) (75-99) mg/dL Hemoglobin A1c 6.8 H (4.0-6.0) % HDL Cholesterol 36 L (40-60) mg/dL 09/30/17 09/30/17 09/30/17 Range/Units 04:07 06:12 11:24 RBC 3.75 L (4.30-5.90) m/uL Hgb 10.9 L (13.0-17.5) gm/dL Hct 31.2 L (39.0-53.0) % Retic Count (0.5-2.0) % APTT (22.0-30.0) sec BUN (9-20) mg/dL Glucose (74-99) mg/dL POC Glucose (mg/dL) 197 H 190 H (75-99) mg/dL Hemoglobin A1c (4.0-6.0) % HDL Cholesterol (40-60) mg/dL 09/30/17 09/30/17 Range/Units 13:42 16:55 RBC (4.30-5.90) m/uL Hgb (13.0-17.5) gm/dL Hct (39.0-53.0) % Retic Count 2.2 H (0.5-2.0) % APTT (22.0-30.0) sec BUN (9-20) mg/dL Glucose (74-99) mg/dL POC Glucose (mg/dL) 205 H (75-99) mg/dL Hemoglobin A1c (4.0-6.0) % HDL Cholesterol (40-60) mg/dL Assessment and Plan Assessment: Fever and chills on admission likely due to viral illness. Influenza negative. Improved symptomatically. Hypertensive urgency on admission Atypical chest pain. Mainly right lower rib cage. 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 Patient is supposed to get cardiac Catheterization today morning. Plan: Patient be continued on telemetry monitoring. Serial troponin and EKG. heparin drip has been discontinued and cardiology is following. Continue with aspirin and statins. Further recommendations based on the clinical course. Cardiology is planning for catheterization once clinically improves as an outpatient. Time with Patient: Greater than 30
[2017-10-01 06:21] LABS: Glucose,Whole Blood 226 mg/dL (75-99)
[2017-10-01] MEDS: INSULIN ASPART 100 UNIT/ML 1 ML 10 ML VIAL SQ SCH ×3 (06:52→17:43)
[2017-10-01 06:56] VITALS: RESP 16
[2017-10-01] MEDS ORDERED: ASPIRIN 81 MG PO SCH (09:00)
[2017-10-01] MEDS: cloNIDine HCL 0.2 MG TAB PO SCH ×2 (09:01→15:11)
[2017-10-01] MEDS: amLODIPine 5 MG TAB PO SCH (09:01)
[2017-10-01] MEDS: DOCUSATE 100 MG CAP PO SCH (09:01)
[2017-10-01] MEDS: LISINOPRIL 20 MG TAB PO SCH (09:01)
[2017-10-01] MEDS: ATORVASTATIN 20 MG TAB PO SCH (09:01)
--- NOTE | 2017-10-01 09:27 | US ---
EXAMINATION TYPE: US gallbladder DATE OF EXAM: 10/01/2017 COMPARISON: NONE CLINICAL HISTORY: vomiting. Abdominal pain. EXAM MEASUREMENTS: Liver Length: 15.8 cm Gallbladder Wall: 0.1 cm CBD: 0.7 cm Right Kidney: 10.3 x 5.4 x 6.4 cm overlying bowel gas limits exam Pancreas: limited views appears wnl Liver: intercostal images due to bowel gas Gallbladder: possible polyps with dependant debris Evidence for sonographic Solorzano's sign: no CBD: wnl Right Kidney: wnl Visualized portion of pancreas is heterogeneous. Portions are obscured by overlying bowel gas on imag es saved. Visualized portion of liver is heterogeneously hyperechoic. No worrisome intrahepatic ducta l dilatation is seen. Evaluation for focal masses suboptimal due to the heterogeneity. Visualized por tion of gallbladder shows no definitive shadowing mobile gallstones. Dependent density could reflect gallbladder sludge. Rounded nonmobile nonshadowing density could reflect tiny polyps. IMPRESSION: No large mobile shadowing gallstones or secondary ultrasound evidence for acute cholecyst itis. Cannot exclude gallbladder sludge.
[2017-10-01] MEDS ORDERED: ACETAMINOPHEN TAB 325 MG TAB PO PRN (11:09)
[2017-10-01 11:44] LABS: Glucose,Whole Blood 288 mg/dL (75-99)
--- NOTE | 2017-10-01 12:32 | P.PN ---
Subjective Progress Note Date: 10/01/17 This is a 52-year-old gentleman with a documented history of diabetes , hypertension, hyperlipidemia, recent CVA, family history of premature coronary artery disease, who underwent a stress test at [facility], which revealed evidence of moderate size perfusion defect in the inferior lateral segment with partial reversibility. For this reason he was advised to undergo cardiac catheterization which was actually scheduled as an outpatient for him today. According to the patient, over the past couple of days he has been running fever and chills at home. As of this morning he started also vomiting a significant amount at home and continuing to have chills. For this reason he came to the emergency room for further evaluation. He denies any overt chest discomfort but states he does have a discomfort which starts of his rib cage and radiates up his back. Chest x-ray does not reveal any evidence for acute pulmonary disease. EKG shows a normal sinus rhythm with incomplete left bundle branch block and nonspecific ST-T wave changes. White blood cell count 13.2, hemoglobin 12.4, platelet count 202. Sodium 143, potassium 5.6, BUN 18, creatinine 1.0. Magnesium level on admission 1.5. Troponin 0.012. At the time of my examination today, patient continues to have chills, denies any chest pain. Vomiting seems to have subsided. Temperature on arrival 98.8, blood pressure on arrival 208/98, heart rate in the 90s, 100% on room air. 09/30/2017 Patient was seen and examined this morning, denies any further chills, no further nausea or vomiting. Blood pressure 120/60 with a heart rate in the 60s , temperature 98.1, 98% on room air. Afebrile. White blood cell count this morning 9.5, hemoglobin 10.9. Sodium 141, potassium 4.4, BUN 22, creatinine 1.2. Liver enzymes normal. Magnesium level I.8. Troponins 0.012, 0.031, 0.025. Influenza A and B-. Blood cultures pending. 10/01/2017 Patient seen and examined this morning, continues to complain of some mild right -sided lower back discomfort, otherwise doing well. A gallbladder ultrasound was performed which did not reveal any large mobile shadowing gallstones or secondary ultrasound no evidence of cholecystitis, cannot exclude gallbladder sludge. Blood pressure 130/70 with a heart rate in the 60s. Objective - Vital Signs Vital signs: Vital Signs Temp 97.4 F L 10/01/17 08:00 Pulse 61 10/01/17 08:00 Resp 16 10/01/17 08:00 BP 130/78 10/01/17 08:00 Pulse Ox 98 10/01/17 08:00 Intake & Output 09/30/17 10/01/17 10/01/17 18:59 06:59 18:59 Intake Total 1580 10 Balance 1580 10 Weight 83 kg Intake: IV 10 .9 10 Oral 1580 Other: # Voids 3 1 # Bowel Movements 1 - Exam PHYSICAL EXAMINATION: 52-year-old male HEENT: Head is atraumatic, normocephalic. Pupils equal, round. Neck is supple. There is no elevated jugular venous pressure. HEART EXAMINATION: Heart S1, S2 normal. No murmur or gallop heard. CHEST EXAMINATION: Lungs are clear to auscultation and precussion. No chest wall tenderness is noted on palpation or with deep breathing. ABDOMEN: Soft, nontender. Bowel sounds are heard. No organomegaly noted. Complaining of mild right lower back EXTREMITIES: 2+ peripheral pulses with no evidence of peripheral edema and no calf tenderness noted. NEUROLOGIC patient is awake, alert and oriented -3. - Labs CBC & Chem 7: 09/30/17 04:07 09/30/17 04:07 Labs: Abnormal Lab Results - Last 24 Hours (Table) 09/30/17 09/30/17 09/30/17 Range/Units 04:07 04:07 13:42 Retic Count 2.2 H (0.5-2.0) % POC Glucose (mg/dL) (75-99) mg/dL Iron Saturation 57.96 H (15.00-50.00) Ferritin 390.6 H (22.0-322.0) ng/mL 09/30/17 09/30/17 10/01/17 Range/Units 16:55 20:48 06:19 Retic Count (0.5-2.0) % POC Glucose (mg/dL) 205 H 226 H 226 H (75-99) mg/dL Iron Saturation (15.00-50.00) Ferritin (22.0-322.0) ng/mL 10/01/17 Range/Units 11:27 Retic Count (0.5-2.0) % POC Glucose (mg/dL) 288 H (75-99) mg/dL Iron Saturation (15.00-50.00) Ferritin (22.0-322.0) ng/mL Microbiology - Last 24 Hours (Table) 09/29/17 17:46 Blood Culture - Preliminary Blood No Growth after 24 hours 09/29/17 18:18 Blood Culture - Preliminary Blood No Growth after 24 hours Assessment and Plan Plan: Assessment and plan #1 symptoms of 2 day duration of fever and chills, vomiting, rule out influenza. White blood cell count 13.2 on admission. Temperature 98.8 on admission. #2 hypertension, blood pressure 208/98 on admission. #3 symptoms of back discomfort, with some radiation to the chest. Initial troponin 0.012, subsequent troponin 0.031. #4 hypomagnesemia, #5 hyperkalemia, #6 diabetes #7 hyperlipidemia #8 prior stroke #9 family history of premature coronary artery disease #10 recent stress test positive for reversible ischemia, patient was scheduled to undergo cardiac catheterization as an outpatient today. This has currently been deferred. Plan Ultrasound of the gallbladder did not reveal any significant findings. Iron saturation 57.9, ferritin 390.6, TIBC 245, iron 142. B12 664. Hemodynamically stable. Recommend a full workup for anemia. From cardiology's perspective, he may be able to be discharged home, follow-up as an outpatient, outpatient cardiac catheterization then will be scheduled. DNP note has been reviewed, I agree with a documented findings and plan of care. Patient was seen and examined.
[2017-10-01 15:18] VITALS: BP 121/60; PULSE 64; TEMP 97.1
[2017-10-01 16:39] LABS: Glucose,Whole Blood 233 mg/dL (75-99)
[2017-10-01] MEDS ORDERED: MAG HYDROX/AL HYDROX/SIMETH 30 ML CUP PO PRN (16:43)
--- NOTE | 2017-10-02 00:15 | P.DS ---
Providers Date of admission: 09/29/17 11:29 Expected date of discharge: 10/01/17 Attending physician: Bryant Pizarro Consults: 09/29/17 11:29 Consult Physician Urgent Consulting Provider: [facility] Consult Reason/Comments: Unstable angina Do you want consulting provider notified?: Yes Primary care physician: Tyler Newton [facility] Course: Discharge diagnosis Fever and chills on admission likely due to viral illness. Influenza negative. Improved symptomatically. Hypertensive urgency on admission Atypical chest pain. Mainly right lower rib cage. 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 Patient is supposed to get cardiac Catheterization today morning. Hospital course Patient is a 52-year-old male with a known history of hypertension, hyperlipidemia, history of CVA with mild residual left-sided weakness and diabetes type 2 came to ER with complaints of fever and chills and episode of vomiting in the morning today. Patient was taking shower and became very shaky. Patient did have some chest discomfort and was radiating to the back as a time. Currently patient denied any chest pain. Chest x-ray showed no evidence of acute cardio pulmonary process EKG showed normal sinus rhythm. Patient is supposed to have cardiac catheterization today. Patient is following with cardiology clinic and recently had stress test which showed moderate reversible ischemia. Influenza is negative. Currently saturating well on room air. Blood pressure 208/108 on admission Initial troponin 0.012, subsequent troponin 0.031. 09/30/2017 Patient says that he is feeling better today. Otherwise troponins are trending down. Cardiology has seen the patient and recommended possibly outpatient cardiac catheterization once patient is symptomatically much improved. No fever no chills. No complaints of chest pain or worsening shortness of breath. No nausea vomiting or abdominal pain or diarrhea. 10/09/2017 Patient denied any complaints of abdominal pain. No fever no chills. Denied any new complaints. US OF THE ABDOMEN SHOWED no evidence of acute cholecystitis. Otherwise patient is stable to be discharged home. Patient was seen by cardiology and recommended to follow-up with clinic in one week to reschedule cardiac catheterization. Patient will be continued on aspirin and statins. Discharge physical examination was done Vital Signs - 24 hr 10/01/17 10/01/17 10/01/17 03:54 04:00 08:00 Temperature 97.4 F L Pulse Rate [ 59 L 61 Pulse Oximetery ] Respiratory 18 16 16 Rate Blood Pressure 130/75 130/78 [Left Arm] O2 Sat by Pulse 97 98 Oximetry 10/01/17 10/01/17 12:00 15:15 Temperature 97.5 F L 97.1 F L Pulse Rate [ 55 L 64 Pulse Oximetery ] Respiratory 16 16 Rate Blood Pressure 104/58 121/60 [Left Arm] O2 Sat by Pulse 96 96 Oximetry Patient Condition at Discharge: Stable Plan - Discharge Summary Discharge Rx Participant: No New Discharge Prescriptions: Continue sitaGLIPtin [Januvia] 100 mg PO QAM Aspirin 325 mg PO DAILY Lurasidone HCl [Latuda] 20 mg PO HS Glimepiride [Amaryl] 1 mg PO AC-BRKFST Gabapentin 600 mg PO HS Citalopram Hydrobromide [CeleXA] 40 mg PO QAM Atorvastatin [Lipitor] 40 mg PO HS metFORMIN HCL 1,000 mg PO BID amLODIPine [Norvasc] 5 mg PO BID Docusate Sodium [Dok] 100 mg PO BID cloNIDine HCL [Catapres] 0.2 mg PO TID Lisinopril [Zestril] 20 mg PO BID Butalb/Asprin/Caff 50-325-40Mg [Fiorinal 50-325-40 MG] 1 cap PO Q6H PRN PRN Reason: Headache Discharge Medication List Aspirin 325 mg PO DAILY 09/12/17 [History] Atorvastatin [Lipitor] 40 mg PO HS 09/12/17 [History] Citalopram Hydrobromide [CeleXA] 40 mg PO QAM 09/12/17 [History] Docusate Sodium [Dok] 100 mg PO BID 09/12/17 [History] Gabapentin 600 mg PO HS 09/12/17 [History] Glimepiride [Amaryl] 1 mg PO AC-BRKFST 09/12/17 [History] Lisinopril [Zestril] 20 mg PO BID 09/12/17 [History] Lurasidone HCl [Latuda] 20 mg PO HS 09/12/17 [History] amLODIPine [Norvasc] 5 mg PO BID 09/12/17 [History] cloNIDine HCL [Catapres] 0.2 mg PO TID 09/12/17 [History] metFORMIN HCL 1,000 mg PO BID 09/12/17 [History] sitaGLIPtin [Januvia] 100 mg PO QAM 09/12/17 [History] Butalb/Asprin/Caff 50-325-40Mg [Fiorinal 50-325-40 MG] 1 cap PO Q6H PRN [History] Follow up Appointment(s)/Referral(s): Lamar Scott MD [Primary Care Provider] - 1-2 days (Please call to make appointment) Beba Church MD [STAFF PHYSICIAN] - 1 Week (Please call to make appointment) Patient Instructions/Handouts: Chest Pain (DC) Discharge Disposition: HOME SELF-CARE
== END 2017-10-01 18:23 | disposition home or self-care (01) ==
LOC: EC 09:30 → 6SEL 11:29
PROVIDERS: ADMIT Internal Medicine; ATTEND Internal Medicine
DX: R07.89 Other chest pain (principal); R11.2 Nausea with vomiting, unspecified; R50.9 Fever, unspecified; I16.0 Hypertensive urgency; I12.9 Hypertensive chronic kidney disease with stage 1 through stage 4 chronic kidney disease, or unspecified chronic kidney disease; N18.2 Chronic kidney disease, stage 2 (mild); E11.22 Type 2 diabetes mellitus with diabetic chronic kidney disease; E11.40 Type 2 diabetes mellitus with diabetic neuropathy, unspecified; E78.5 Hyperlipidemia, unspecified; I69.354 Hemiplegia and hemiparesis following cerebral infarction affecting left non-dominant side; M06.9 Rheumatoid arthritis, unspecified; I25.2 Old myocardial infarction; F41.9 Anxiety disorder, unspecified; F32.9 Major depressive disorder, single episode, unspecified; E87.5 Hyperkalemia; E83.42 Hypomagnesemia; R94.39 Abnormal result of other cardiovascular function study; Z79.82 Long term (current) use of aspirin; Z79.84 Long term (current) use of oral hypoglycemic drugs; Z79.899 Other long term (current) drug therapy; Z91.041 Radiographic dye allergy status; Z82.49 Family history of ischemic heart disease and other diseases of the circulatory system; Z83.3 Family history of diabetes mellitus; Z82.3 Family history of stroke; R25.1 Tremor, unspecified
CPT/HCPCS: 99291 ×2; 96365 ×2; 96367 ×2; 96366 ×6; 96375 ×3; 96376 ×2; 36415; 93005; 80061; 80053; 80048 ×2; 82607; 82728; 82550; 82553; 83540; 83550; 83735; 84484; 85025 ×2; 85610; 85045; 85730 ×2; 87040; 87502; 83036; 71046; 76705; G0378 ×3; J2060; J1644 ×2; J2405; J3475

== ENCOUNTER 2017-10-13 18:53 | Inpatient (IN) | payer OTHER ==
[2017-10-13] MEDS ORDERED: ONDANSETRON 4 MG/2 ML VIAL IVP STA ×2 (19:41→22:55)
[2017-10-13] MEDS ORDERED: MORPHINE SULFATE 4 MG/0.8 ML SYRINGE (INJ) IVP STA (19:41)
[2017-10-13] MEDS ORDERED: SODIUM CHLORIDE 0.9% 1,000 ML IV STA (19:41)
--- NOTE | 2017-10-13 20:13 | ED ---
General Adult HPI - General Chief complaint: Abdominal Pain Stated complaint: NAUSEA AND VOMITING X 2 DAYS Time Seen by Provider: 10/13/17 19:34 Source: patient, RN notes reviewed Mode of arrival: ambulatory Limitations: no limitations - History of Present Illness Initial comments: Patient 52-year-old male presented to the emergency room today with a chief complaint of symptoms nausea vomiting abdominal pain over the last 2 days. He does not that he had similar symptoms a few weeks ago was admitted to the hospital discharged home. States they have been looking into his gallbladder. States symptoms return 2 days ago. States had lots of nausea vomiting difficult time keeping anything down. Patient does admit that his had increased bowel movements. States the normal bowel movements not diarrhea. Patient denies any signs of blood in the emesis or stool. He states he's been vomiting bile. He denies any other complaints or symptoms at this time. Patient denies any recent fever, chills, shortness of breath, chest pain, back pain, numbness or tingling, dysuria or hematuria, constipation or diarrhea, headaches or visual changes, or any other complaints. - Related Data Home Medications Medication Instructions Recorded Confirmed Aspirin 325 mg PO DAILY 09/12/17 10/13/17 Atorvastatin [Lipitor] 40 mg PO HS 09/12/17 10/13/17 Citalopram Hydrobromide [CeleXA] 40 mg PO QAM 09/12/17 10/13/17 Docusate Sodium [Dok] 100 mg PO BID 09/12/17 10/13/17 Gabapentin 600 mg PO HS 09/12/17 10/13/17 Glimepiride [Amaryl] 1 mg PO DAILY 09/12/17 10/13/17 Lisinopril [Zestril] 20 mg PO BID 09/12/17 10/13/17 Lurasidone HCl [Latuda] 20 mg PO HS 09/12/17 10/13/17 amLODIPine [Norvasc] 5 mg PO BID 09/12/17 10/13/17 cloNIDine HCL [Catapres] 0.2 mg PO TID 09/12/17 10/13/17 metFORMIN HCL 1,000 mg PO BID 09/12/17 10/13/17 sitaGLIPtin [Januvia] 100 mg PO QAM 09/12/17 10/13/17 Allergies Allergy/AdvReac Type Severity Reaction Status Date / Time Iodinated Contrast- Oral and Allergy Nausea & Verified 10/13/17 19:55 IV Dye Vomiting Review of Systems ROS Statement: Those systems with pertinent positive or pertinent negative responses have been documented in the HPI. ROS Other: All systems not noted in ROS Statement are negative. Past Medical History Past Medical History: CVA/TIA, Diabetes Mellitus, Hyperlipidemia, Hypertension, Myocardial Infarction ([place]), Renal Disease, Rheumatoid Arthritis ([place]) Additional Past Medical History / Comment(s): stroke nov, migranes, diabetic neuropathy arms and legs, stage 2 kidney failure Last Myocardial Infarction Date:: 2014? not sure History of Any Multi-Drug Resistant Organisms: None Reported Past Surgical History: No Surgical Hx Reported Past Anesthesia/Blood Transfusion Reactions: Unable to Obtain Additional Past Anesthesia/Blood Transfusion Reaction / Comment(s): never had anethesia Past Psychological History: Anxiety, Depression Smoking Status: Never smoker Past Alcohol Use History: None Reported Past Drug Use History: None Reported - Past Family History Mother Family Medical History: CVA/TIA, Diabetes Mellitus, Hypertension Additional Family Medical History / Comment(s): Mother is 77yrs old. Father Family Medical History: CVA/TIA, Diabetes Mellitus, Myocardial Infarction ([place]) Additional Family Medical History / Comment(s): Father of a [place] in his 50s. General Exam - General Exam Comments Initial Comments: General: The patient is awake and alert, in no distress, and does not appear acutely ill. Eye: Pupils are equal, round and reactive to light, extra-ocular movements are intact. No nystagmus. There is normal conjunctiva bilaterally. No signs of icterus. Ears, nose, mouth and throat: There are moist mucous membranes and no oral lesions. Neck: The neck is supple, there is no tenderness or JVD. Cardiovascular: There is a regular rate and rhythm. No murmur, rub or gallop is appreciated. Respiratory: Lungs are clear to auscultation, respirations are non-labored, breath sounds are equal. No wheezes, stridor, rales, or rhonchi. Gastrointestinal: Abdomen soft on palpation. Patient does have tenderness greatest in right upper quadrant and epigastric with mild tenderness in left lower quadrant. No rebound tenderness. No guarding. No CVA tenderness. Musculoskeletal: Normal ROM, no tenderness. Strength 5/5. Sensation intact. Pulses equal bilaterally 2+. Neurological: A&O x 3. CN II-XII intact, There are no obvious motor or sensory deficits. Coordination appears grossly intact. Speech is normal. Skin: Skin is warm and dry and no rashes or lesions are noted. Psychiatric: Cooperative, appropriate mood & affect, normal judgment. Limitations: no limitations Course Vital Signs 10/13/17 10/13/17 10/13/17 19:04 20:13 20:34 Temperature 98.9 F 98.4 F Pulse Rate 107 H 92 83 Respiratory 20 18 18 Rate Blood Pressure 185/94 216/112 194/100 O2 Sat by Pulse 100 99 100 Oximetry 10/13/17 10/13/17 10/14/17 21:28 23:01 00:45 Temperature Pulse Rate 68 96 96 Respiratory 18 18 18 Rate Blood Pressure 166/81 178/68 167/78 O2 Sat by Pulse 98 98 97 Oximetry EKG Findings - EKG Comments: EKG Findings:: EKG performed 2008: Shows normal sinus rhythm at 92 beats per minute.. HI interval 144. QRS is 98. QT/QTc 470/457. Left axis deviation. No acute ST changes. Medical Decision Making - Medical Decision Making Patient reexamined at this time is resting comfortable. Still experiencing some nausea. Patient's blood pressure much improved. Was unable take his meds due to the nausea vomiting. Patient had a CT of the abdomen pelvis as showing no acute abnormalities. Patient's ultrasound of the upper quadrant is negative at this time. Patient does have a 13,000 white count with a lactic acidosis. Patient be admitted for dehydration and abdominal pain. - Lab Data Result diagrams: 10/13/17 20:00 10/13/17 20:00 Lab Results 10/13/17 10/13/17 10/13/17 Range/Units 20:00 20:00 20:00 WBC 13.0 H (3.8-10.6) k/uL RBC 4.71 (4.30-5.90) m/uL Hgb 13.3 (13.0-17.5) gm/dL Hct 39.1 (39.0-53.0) % MCV 83.0 (80.0-100.0) fL MCH 28.2 (25.0-35.0) pg MCHC 34.0 (31.0-37.0) g/dL RDW 13.1 (11.5-15.5) % Plt Count 248 (150-450) k/uL Neutrophils % 80 % Lymphocytes % 12 % Monocytes % 7 % Eosinophils % 0 % Basophils % 0 % Neutrophils # 10.3 H (1.3-7.7) k/uL Lymphocytes # 1.6 (1.0-4.8) k/uL Monocytes # 0.9 (0-1.0) k/uL Eosinophils # 0.0 (0-0.7) k/uL Basophils # 0.0 (0-0.2) k/uL PT 10.9 (9.0-12.0) sec INR 1.1 (<1.2) APTT 23.0 (22.0-30.0) sec Sodium 142 (137-145) mmol/L Potassium 4.9 (3.5-5.1) mmol/L Chloride 97 L (98-107) mmol/L Carbon Dioxide 25 (22-30) mmol/L Anion Gap 20 mmol/L BUN 27 H (9-20) mg/dL Creatinine 1.30 H (0.66-1.25) mg/dL Est GFR (CKD-EPI)AfAm 74 (>60 ml/min/1.73 sqM) Est GFR (CKD-EPI)NonAf 64 (>60 ml/min/1.73 sqM) Glucose 350 H (74-99) mg/dL Lactic Ac Sepsis Rflx Plasma Lactic Acid Preet (0.7-2.0) mmol/L Calcium 10.8 H (8.4-10.2) mg/dL Total Bilirubin 0.5 (0.2-1.3) mg/dL AST 26 (17-59) U/L ALT 35 (21-72) U/L Alkaline Phosphatase 107 (38-126) U/L Total Creatine Kinase (55-170) U/L CK-MB (CK-2) (0.0-2.4) ng/mL CK-MB (CK-2) Rel Index Troponin I (0.000-0.034) ng/mL Total Protein 8.3 H (6.3-8.2) g/dL Albumin 5.1 H (3.5-5.0) g/dL Amylase 97 (30-110) U/L Lipase 394 H (23-300) U/L Urine Color Urine Appearance (Clear) Urine pH (5.0-8.0) Ur Specific [place] (1.001-1.035) Urine Protein (Negative) Urine Glucose (UA) (Negative) Urine Ketones (Negative) Urine Blood (Negative) Urine Nitrite (Negative) Urine Bilirubin (Negative) Urine Urobilinogen (<2.0) mg/dL Ur Leukocyte Esterase (Negative) Urine RBC (0-5) /hpf Urine WBC (0-5) /hpf Hyaline Casts (0-2) /lpf Urine Mucus (None) /hpf 10/13/17 10/13/17 10/13/17 Range/Units 20:00 20:00 20:31 WBC (3.8-10.6) k/uL RBC (4.30-5.90) m/uL Hgb (13.0-17.5) gm/dL Hct (39.0-53.0) % MCV (80.0-100.0) fL MCH (25.0-35.0) pg MCHC (31.0-37.0) g/dL RDW (11.5-15.5) % Plt Count (150-450) k/uL Neutrophils % % Lymphocytes % % Monocytes % % Eosinophils % % Basophils % % Neutrophils # (1.3-7.7) k/uL Lymphocytes # (1.0-4.8) k/uL Monocytes # (0-1.0) k/uL Eosinophils # (0-0.7) k/uL Basophils # (0-0.2) k/uL PT (9.0-12.0) sec INR (<1.2) APTT (22.0-30.0) sec Sodium (137-145) mmol/L Potassium (3.5-5.1) mmol/L Chloride (98-107) mmol/L Carbon Dioxide (22-30) mmol/L Anion Gap mmol/L BUN (9-20) mg/dL Creatinine (0.66-1.25) mg/dL Est GFR (CKD-EPI)AfAm (>60 ml/min/1.73 sqM) Est GFR (CKD-EPI)NonAf (>60 ml/min/1.73 sqM) Glucose (74-99) mg/dL Lactic Ac Sepsis Rflx Y Plasma Lactic Acid Preet 3.5 H* (0.7-2.0) mmol/L Calcium (8.4-10.2) mg/dL Total Bilirubin (0.2-1.3) mg/dL AST (17-59) U/L ALT (21-72) U/L Alkaline Phosphatase (38-126) U/L Total Creatine Kinase 96 (55-170) U/L CK-MB (CK-2) 1.7 (0.0-2.4) ng/mL CK-MB (CK-2) Rel Index 1.8 Troponin I 0.015 (0.000-0.034) ng/mL Total Protein (6.3-8.2) g/dL Albumin (3.5-5.0) g/dL Amylase (30-110) U/L Lipase (23-300) U/L Urine Color Urine Appearance (Clear) Urine pH (5.0-8.0) Ur Specific [place] (1.001-1.035) Urine Protein (Negative) Urine Glucose (UA) (Negative) Urine Ketones (Negative) Urine Blood (Negative) Urine Nitrite (Negative) Urine Bilirubin (Negative) Urine Urobilinogen (<2.0) mg/dL Ur Leukocyte Esterase (Negative) Urine RBC (0-5) /hpf Urine WBC (0-5) /hpf Hyaline Casts (0-2) /lpf Urine Mucus (None) /hpf 10/14/17 Range/Units 00:16 WBC (3.8-10.6) k/uL RBC (4.30-5.90) m/uL Hgb (13.0-17.5) gm/dL Hct (39.0-53.0) % MCV (80.0-100.0) fL MCH (25.0-35.0) pg MCHC (31.0-37.0) g/dL RDW (11.5-15.5) % Plt Count (150-450) k/uL Neutrophils % % Lymphocytes % % Monocytes % % Eosinophils % % Basophils % % Neutrophils # (1.3-7.7) k/uL Lymphocytes # (1.0-4.8) k/uL Monocytes # (0-1.0) k/uL Eosinophils # (0-0.7) k/uL Basophils # (0-0.2) k/uL PT (9.0-12.0) sec INR (<1.2) APTT (22.0-30.0) sec Sodium (137-145) mmol/L Potassium (3.5-5.1) mmol/L Chloride (98-107) mmol/L Carbon Dioxide (22-30) mmol/L Anion Gap mmol/L BUN (9-20) mg/dL Creatinine (0.66-1.25) mg/dL Est GFR (CKD-EPI)AfAm (>60 ml/min/1.73 sqM) Est GFR (CKD-EPI)NonAf (>60 ml/min/1.73 sqM) Glucose (74-99) mg/dL Lactic Ac Sepsis Rflx Plasma Lactic Acid Preet (0.7-2.0) mmol/L Calcium (8.4-10.2) mg/dL Total Bilirubin (0.2-1.3) mg/dL AST (17-59) U/L ALT (21-72) U/L Alkaline Phosphatase (38-126) U/L Total Creatine Kinase (55-170) U/L CK-MB (CK-2) (0.0-2.4) ng/mL CK-MB (CK-2) Rel Index Troponin I (0.000-0.034) ng/mL Total Protein (6.3-8.2) g/dL Albumin (3.5-5.0) g/dL Amylase (30-110) U/L Lipase (23-300) U/L Urine Color Yellow Urine Appearance Clear (Clear) Urine pH 6.5 (5.0-8.0) Ur Specific [place] 1.021 (1.001-1.035) Urine Protein 2+ H (Negative) Urine Glucose (UA) 4+ H (Negative) Urine Ketones Trace H (Negative) Urine Blood Trace H (Negative) Urine Nitrite Negative (Negative) Urine Bilirubin Negative (Negative) Urine Urobilinogen <2.0 (<2.0) mg/dL Ur Leukocyte Esterase Negative (Negative) Urine RBC 1 (0-5) /hpf Urine WBC <1 (0-5) /hpf Hyaline Casts 19 H (0-2) /lpf Urine Mucus Rare H (None) /hpf Disposition Clinical Impression: Abdominal pain, Nausea & vomiting, Lactic acidosis, Dehydration Disposition: ADMITTED IP TO THIS HOSP Condition: Good Is patient prescribed a controlled substance at d/c from ED?: No Referrals: Lamar Scott MD [Primary Care Provider] - 1-2 days Time of Disposition: 00:51
[2017-10-13 20:19] LABS: Basophils % (A) 0 %; Eosinophils % (A) 0 %; HCT 39.1 % (39.0-53.0); HGB 13.3 gm/dL (13.0-17.5); Lymphocytes # (A) 1.6 k/uL (1.0-4.8); Lymphocytes % (A) 12 %; MCH 28.2 pg (25.0-35.0); Mean Platelet Volume 6.8; Monocytes # (A) 0.9 k/uL (0-1.0); Monocytes % (A) 7 %; Neutrophils # (A) 10.3 k/uL (1.3-7.7); Neutrophils % (A) 80 %; Platelet Count 248 k/uL (150-450); RBC 4.71 m/uL (4.30-5.90); RDW 13.1 % (11.5-15.5)
[2017-10-13 20:26] LABS: INR 1.1 (<1.2); Prothrombin Time 10.9 sec (9.0-12.0)
[2017-10-13 20:32] LABS: Albumin 5.1 g/dL (3.5-5.0); Calcium 10.8 mg/dL (8.4-10.2); Potassium 4.9 mmol/L (3.5-5.1); Total Bilirubin 0.5 mg/dL (0.2-1.3); Total Protein 8.3 g/dL (6.3-8.2)
[2017-10-13] MEDS ORDERED: hydrALAZINE HCL 20 MG/ML 1 ML VIAL IVP STA (20:36)
[2017-10-13 20:43] LABS: Creatine Kinase MB 1.7 ng/mL (0.0-2.4); Troponin I 0.015 ng/mL (0.000-0.034)
--- NOTE | 2017-10-13 21:04 | XR ---
EXAMINATION TYPE: XR KUB DATE OF EXAM: 10/13/2017 COMPARISON: NONE HISTORY: Nausea and vomiting. Pain. TECHNIQUE: 2 views FINDINGS: Bowel gas pattern is normal. There is no sign of intestinal obstruction or pneumoperitoneum . Fecal pattern is normal. Lung bases are clear. There are no pathologic calcifications. IMPRESSION: Nonacute abdomen.
--- NOTE | 2017-10-13 22:03 | US ---
EXAMINATION TYPE: US abdomen limited DATE OF EXAM: 10/13/2017 COMPARISON: NONE CLINICAL HISTORY: Pain. RUQ pain nausea and vomiting. EXAM MEASUREMENTS: Liver Length: 15.7 cm Gallbladder Wall: 0.3 cm CBD: 0.4 cm Right Kidney: 11.4 x 5.4 x 4.5 cm Pancreas: Obscured by bowel gas Liver: Intercoastal images due to bowel gas. Gallbladder: possible polys seen. Evidence for sonographic Solorzano's sign: No CBD: wnl Right Kidney: No hydronephrosis or masses seen Possible polyps seen in the gallbladder. IMPRESSION: Possible tiny gallbladder polyps. No gallstones seen. No dilated ducts.
--- NOTE | 2017-10-13 23:13 | CT ---
EXAMINATION TYPE: CT abdomen pelvis wo con DATE OF EXAM: 10/13/2017 COMPARISON: NONE HISTORY: Vomiting x2 days. CT DLP: 436.5 mGycm Automated exposure control for dose reduction was used. TECHNIQUE: Helical acquisition of images was performed from the lung bases through the pelvis. FINDINGS: Lung bases are clear. There is no pleural effusion. Heart size is normal. There is no pericardial eff usion. Liver spleen pancreas gallbladder appear normal. Bile ducts are not dilated. There is no adrenal mass. There is a small hiatal hernia. Kidneys have normal size. There is no hydro nephrosis. Ureters are not dilated. There is no retroperitoneal adenopathy. There is no ascites. Ther e are few diverticula in the sigmoid colon. Bladder is large. Urinary bladder measures 14 cm in lengt h. The lumbar spine is intact. There is no free fluid in the pelvis. Prostate is slightly enlarged an d measures 5.3 cm. Appendix is not seen. There is no sign of appendicitis. IMPRESSION: SMALL HIATAL HERNIA. DILATED URINARY BLADDER WITH ENLARGED PROSTATE. THERE IS PROBABLY CHRONIC BLADDE R OUTLET OBSTRUCTION. MILD SIGMOID DIVERTICULOSIS. THERE IS APPARENT VAS DEFERENS CALCIFICATION WHICH IS ASSOCIATED WITH DIABETES.
[2017-10-14] MEDS ORDERED: hydrALAZINE HCL 20 MG/ML 1 ML VIAL IVP STA (00:20)
[2017-10-14 00:44] LABS: Appearance,Urine Clear (Clear); Bilirubin,Urine Negative (Negative); Blood,Urine Trace (Negative); Color,Urine Yellow; Glucose,Urine (UA) 4+ (Negative); Hyaline Casts,Urine 19 /lpf (0-2); Ketones,Urine Trace (Negative); Leukocyte Esterase,Urine Negative (Negative); Mucus,Urine Rare /hpf; Nitrite,Urine Negative (Negative); PH, Urine 6.5 (5.0-8.0); Protein,Urine 2+ (Negative); RBC,Urine 1 /hpf (0-5); Specific Gravity,Urine 1.021 (1.001-1.035); Urobilinogen,Urine <2.0 mg/dL (<2.0); WBC,Urine <1 /hpf (0-5)
[2017-10-14] MEDS ORDERED: LORazepam 2 MG/ML INJ IV PRN (00:51)
[2017-10-14] MEDS ORDERED: NALOXONE 0.4 MG/ML 1 ML VIAL IV PRN (00:51)
[2017-10-14] MEDS ORDERED: ONDANSETRON 4 MG/2 ML VIAL IVP PRN (00:51)
[2017-10-14] MEDS ORDERED: MORPHINE SULFATE 4 MG/0.8 ML SYRINGE (INJ) IV PRN (00:51)
[2017-10-14 02:07] LABS: Glucose,Whole Blood 258 mg/dL (75-99)
[2017-10-14] MEDS ORDERED: cloNIDine 0.1 MG/24HR PATCH 1 PATCH PATCH TRANSDERM SCH (04:00)
[2017-10-14] MEDS ORDERED: SODIUM CHLORIDE 0.9% 1,000 ML IV SCH (04:00)
[2017-10-14] MEDS: ONDANSETRON 4 MG/2 ML VIAL IVP PRN ×3 (04:12→18:24)
[2017-10-14] MEDS: INSULIN ASPART 100 UNIT/ML 1 ML 10 ML VIAL SQ SCH ×5 (04:12→21:37)
[2017-10-14] MEDS ORDERED: INSULIN ASPART 100 UNIT/ML 1 ML 10 ML VIAL SQ SCH (07:30)
[2017-10-14 07:41] LABS: Glucose,Whole Blood 193 mg/dL (75-99)
[2017-10-14] MEDS ORDERED: hydrALAZINE HCL 20 MG/ML 1 ML VIAL IVP PRN ×2 (11:48→11:49)
--- NOTE | 2017-10-14 11:56 | P.HPIM ---
History of Present Illness This is a pleasant 52 years old male with past medical history of CVA/TIA with mild residual weakness, DM, hyperlipidemia, hypertension, CAD, renal disease, he was here about 2 weeks ago for lower chest pain radiating to the back with nausea vomiting, he underwent cardiac workup which was negative, he presents this time with epigastric abdominal pain radiating to the back about 10 over 10 in severity, nonspecific, relieved with IV morphine now is 4/10, associated with nausea vomiting edges result now, he says he has normal bowel movements, he denies history of drinking No chest pain no shortness of breath no fever, on admission he had high white cell count of 13 K, high lactic acid 3.5 came down to 1.1 with fluids Review of Systems 14 point systemic review were negative except as mentioned in HPI Past Medical History Past Medical History: CVA/TIA, Diabetes Mellitus, Hyperlipidemia, Hypertension, Myocardial Infarction ([place]), Renal Disease, Rheumatoid Arthritis ([place]) Additional Past Medical History / Comment(s): stroke nov, migranes, diabetic neuropathy arms and legs, stage 2 kidney failure Last Myocardial Infarction Date:: 2014? not sure History of Any Multi-Drug Resistant Organisms: None Reported Past Surgical History: No Surgical Hx Reported Past Anesthesia/Blood Transfusion Reactions: Unable to Obtain Additional Past Anesthesia/Blood Transfusion Reaction / Comment(s): never had anethesia Past Psychological History: Anxiety, Depression Additional Psychological History / Comment(s): Pt resides with his spouse. He uses a quad cane or walker to ambulate. He is legally blind. He reads minimally with magnifying glass and signs his name only now. His spouse drives him to [place]. Smoking Status: Never smoker Past Alcohol Use History: None Reported Past Drug Use History: None Reported - Past Family History Mother Family Medical History: CVA/TIA, Diabetes Mellitus, Hypertension Additional Family Medical History / Comment(s): Mother is 77yrs old. Father Family Medical History: CVA/TIA, Diabetes Mellitus, Myocardial Infarction ([place]) Additional Family Medical History / Comment(s): Father of a [place] in his 50s. Medications and Allergies Home Medications Medication Instructions Recorded Confirmed Type Aspirin 325 mg PO DAILY 09/12/17 10/13/17 History Atorvastatin [Lipitor] 40 mg PO HS 09/12/17 10/13/17 History Citalopram Hydrobromide [CeleXA] 40 mg PO QAM 09/12/17 10/13/17 History Docusate Sodium [Dok] 100 mg PO BID 09/12/17 10/13/17 History Gabapentin 600 mg PO HS 09/12/17 10/13/17 History Glimepiride [Amaryl] 1 mg PO DAILY 09/12/17 10/13/17 History Lisinopril [Zestril] 20 mg PO BID 09/12/17 10/13/17 History Lurasidone HCl [Latuda] 20 mg PO HS 09/12/17 10/13/17 History amLODIPine [Norvasc] 5 mg PO BID 09/12/17 10/13/17 History cloNIDine HCL [Catapres] 0.2 mg PO TID 09/12/17 10/13/17 History metFORMIN HCL 1,000 mg PO BID 09/12/17 10/13/17 History sitaGLIPtin [Januvia] 100 mg PO QAM 09/12/17 10/13/17 History Allergies Allergy/AdvReac Type Severity Reaction Status Date / Time Iodinated Contrast- Oral and Allergy Nausea & Verified 10/13/17 19:55 IV Dye Vomiting Physical Exam Vitals: Vital Signs Temp Pulse Pulse Resp BP BP Pulse Ox 10/14/17 07:00 98.3 F 84 16 170/81 99 10/14/17 03:39 98.8 F 86 18 158/85 99 10/14/17 00:45 96 18 167/78 97 10/13/17 23:01 96 18 178/68 98 10/13/17 21:28 68 18 166/81 98 10/13/17 20:34 83 18 194/100 100 10/13/17 20:13 98.4 F 92 18 216/112 99 10/13/17 19:04 98.9 F 107 H 20 185/94 100 Intake and Output 10/13/17 10/14/17 10/14/17 22:59 06:59 14:59 Intake Total 0 Output Total 800 Balance 0 -800 Intake: Oral 0 Output: Urine 800 Straight 800 Other: Weight 79.379 kg 79.379 kg Constitutional: No acute distress, conversant, pleasant Eyes: Anicteric sclerae, moist conjunctiva, no lid-lag PERRLA ENMT: NC/AT Oropharynx clear, no erythema, exudates Neck: Supple, FROM, no masses, or JVD No carotid bruits No thyromegaly Lungs: Clear to auscultation Clear to percussion Normal respiratory effort, no accessory muscle use Cardiovascular: Heart regular in rate and rhythm, No murmurs, gallops, or rubs No peripheral edema Abdominal: Soft - Epigastric tenderness, no guarding, rebound or rigidity Abdomen moving with respiration Normoactive bowel sounds No hepatomegaly, No splenomegaly No palpable mass No abdominal wall hernia noted Skin: Normal temperature, tone, texture, turgor No induration No subcutaneous nodules No rash, lesions No ulcers Extremities: No digital cyanosis No clubbing Pedal pulses intact and symmetrical Radial pulses intact and symmetrical Normal gait and station No calf tenderness Psychiatric: Alert and oriented to person, place and time Appropriate affect Intact judgement Neuro: Muscles Strength 5/5 in all 4 extremities Sensation to light touch grossly present throughout Cranial nerves II-XII grossly intact No focal sensory deficits Results CBC & Chem 7: 10/13/17 20:00 10/13/17 20:00 Labs: Abnormal Lab Results - Last 24 Hours (Table) 10/13/17 10/13/17 10/13/17 Range/Units 20:00 20:00 20:00 WBC 13.0 H (3.8-10.6) k/uL Neutrophils # 10.3 H (1.3-7.7) k/uL Chloride 97 L (98-107) mmol/L BUN 27 H (9-20) mg/dL Creatinine 1.30 H (0.66-1.25) mg/dL Glucose 350 H (74-99) mg/dL POC Glucose (mg/dL) (75-99) mg/dL Plasma Lactic Acid Preet 3.5 H* (0.7-2.0) mmol/L Calcium 10.8 H (8.4-10.2) mg/dL Total Protein 8.3 H (6.3-8.2) g/dL Albumin 5.1 H (3.5-5.0) g/dL Lipase 394 H (23-300) U/L Urine Protein (Negative) Urine Glucose (UA) (Negative) Urine Ketones (Negative) Urine Blood (Negative) Hyaline Casts (0-2) /lpf Urine Mucus (None) /hpf 10/14/17 10/14/17 10/14/17 Range/Units 00:16 02:04 07:22 WBC (3.8-10.6) k/uL Neutrophils # (1.3-7.7) k/uL Chloride (98-107) mmol/L BUN (9-20) mg/dL Creatinine (0.66-1.25) mg/dL Glucose (74-99) mg/dL POC Glucose (mg/dL) 258 H 193 H (75-99) mg/dL Plasma Lactic Acid Preet (0.7-2.0) mmol/L Calcium (8.4-10.2) mg/dL Total Protein (6.3-8.2) g/dL Albumin (3.5-5.0) g/dL Lipase (23-300) U/L Urine Protein 2+ H (Negative) Urine Glucose (UA) 4+ H (Negative) Urine Ketones Trace H (Negative) Urine Blood Trace H (Negative) Hyaline Casts 19 H (0-2) /lpf Urine Mucus Rare H (None) /hpf Thrombosis Risk Factor Assmnt - Choose All That Apply Any of the Below Risk Factors Present?: Yes Each Factor Represents 1 point: Age 41-60 years Each Risk Factor Represents 3 Points: History of DVT/PE Thrombosis Risk Factor Assessment Total Risk Factor Score: 4 Thrombosis Risk Factor Assessment Level: Moderate Risk Assessment and Plan Assessment: -Abdominal pain, of unknown etiology -DM -CAD -Hypertension -Hyperlipidemia Plan: Patient presents with epigastric abdominal , improving, CTA unremarkable, continue with pain management, fluids, and call GI and surgery consult consult Keep patient nothing by mouth, and change by mouth medication to IV Patient has an enlarged prostate with a large urinary bladder, patient he says his peeing, check bladder scan and if his more than [address] catheter, patient agrees to this plan after discussion including the Garcia catheter
[2017-10-14 12:00] LABS: Basophils % (A) 0 %; Eosinophils % (A) 0 %; HCT 35.2 % (39.0-53.0); HGB 11.6 gm/dL (13.0-17.5); Lymphocytes # (A) 1.6 k/uL (1.0-4.8); Lymphocytes % (A) 15 %; MCH 27.8 pg (25.0-35.0); MCHC 32.9 g/dL (31.0-37.0); MCV 84.6 fL (80.0-100.0); Mean Platelet Volume 7.3; Monocytes # (A) 0.7 k/uL (0-1.0); Monocytes % (A) 6 %; Neutrophils % (A) 76 %; Platelet Count 189 k/uL (150-450); RBC 4.16 m/uL (4.30-5.90); RDW 13.2 % (11.5-15.5); WBC 10.5 k/uL (3.8-10.6)
[2017-10-14 12:18] LABS: Calcium 9.2 mg/dL (8.4-10.2); Potassium 4.8 mmol/L (3.5-5.1)
[2017-10-14 12:22] LABS: Glucose,Whole Blood 186 mg/dL (75-99)
[2017-10-14] MEDS: SODIUM CHLORIDE 0.9% 1,000 ML IV SCH ×2 (13:35→21:44)
[2017-10-14] MEDS: TAMSULOSIN 0.4 MG CAP.ER.24H PO SCH (13:36)
[2017-10-14 13:52] LABS: Hemoglobin A1C 6.9 % (4.0-6.0)
[2017-10-14 15:14] VITALS: BMI 25.8
--- NOTE | 2017-10-14 15:14 | P.CONS ---
History of Present Illness - Reason for Consult Consult date: 10/14/17 Nausea vomiting epigastric pain Requesting physician: Cecilio E Sheet - History of Present Illness 52-year-old gentleman history of diabetes mellitus, hyperlipidemia, hypertension , diabetic neuropathy, anxiety, depression, renal disease, presents with intractable nausea vomiting epigastric pain intermittent bilious emesis over the last 2 weeks. He was hospitalized 2 weeks ago with similar symptoms. At that time he underwent ultrasound abdomen and HIDA scan with unremarkable findings. Normal liver function tests. Patient denies changes in medications. Denies EtOH. No history of peptic ulcer disease or GI bleeding. No history of EGD. No NSAIDs. Full strength aspirin daily. Nausea and midepigastric right upper quadrant pain exacerbated with meals. Afebrile. No recent travels. No sick contacts. He is now reporting difficulty with urination. White count 10.5-13. Hemoglobin 11.6-13.3. Platelet 189. BUN 27. Creatinine 1.3. Glucose 350. Lipase 394. Amylase 97. Blood pressures elevated systolic 160s-200s patient is unable to take his antihypertensive oral medications secondary to nausea vomiting. CT abdomen and pelvis small hiatal hernia. Dilated urinary bladder with enlarged prostate. Mild sigmoid diverticulosis. Repeat abdominal ultrasound possible tiny gallbladder polyps. No gallstones. No dilated ducts. CBD 0.4 cm. Liver length 15.7 cm. Review of Systems Constitutional: Denies fever, chills, sweats, weight gain, or loss. HEENT: Negative for migraines, blurred vision or loss, earaches, drainage, tinnitus, oral mucosal lesions, dysphagia, or odynophagia. Cardiac: History of hyperlipidemia. Hypertension. Negative for chest pain, arrhythmias, or palpitation. Respiratory: Negative for shortness of breath, hemoptysis, cough, or sputum production. Gastrointestinal: See HPI for pertinent findings. Genitourinary: Negative for hematuria, urgency, frequency, polyuria, dysuria, or penile discharge. Musculoskeletal: Negative for muscle aches, swelling, arthritis, and arthralgias. Neurologic: Negative for stroke or TIA. Endocrine: History of diabetes. Negative for thyroid problems. Skin: Negative for rash or itching. Psychiatric: History of depression and anxiety Past Medical History Past Medical History: CVA/TIA, Diabetes Mellitus, Hyperlipidemia, Hypertension, Myocardial Infarction (ME), Renal Disease, Rheumatoid Arthritis (RA) Additional Past Medical History / Comment(s): stroke nov, migranes, diabetic neuropathy arms and legs, stage 2 kidney failure Last Myocardial Infarction Date:: 2014? not sure History of Any Multi-Drug Resistant Organisms: None Reported Past Surgical History: No Surgical Hx Reported Past Anesthesia/Blood Transfusion Reactions: Unable to Obtain Additional Past Anesthesia/Blood Transfusion Reaction / Comm: never had anethesia Past Psychological History: Anxiety, Depression Additional Psychological History / Comment(s): Pt resides with his spouse. He uses a quad cane or walker to ambulate. He is legally blind. He reads minimally with magnifying glass and signs his name only now. His spouse drives him to [employer]. Smoking Status: Never smoker Past Alcohol Use History: None Reported Past Drug Use History: None Reported - Past Family History Mother Family Medical History: CVA/TIA, Diabetes Mellitus, Hypertension Additional Family Medical History / Comment(s): Mother is 77yrs old. Father Family Medical History: CVA/TIA, Diabetes Mellitus, Myocardial Infarction (ME) Additional Family Medical History / Comment(s): Father of a ME in his 50s. Medications and Allergies Home Medications Medication Instructions Recorded Confirmed Type Aspirin 325 mg PO DAILY 09/12/17 10/13/17 History Atorvastatin [Lipitor] 40 mg PO HS 09/12/17 10/13/17 History Citalopram Hydrobromide [CeleXA] 40 mg PO QAM 09/12/17 10/13/17 History Docusate Sodium [Dok] 100 mg PO BID 09/12/17 10/13/17 History Gabapentin 600 mg PO HS 09/12/17 10/13/17 History Glimepiride [Amaryl] 1 mg PO DAILY 09/12/17 10/13/17 History Lisinopril [Zestril] 20 mg PO BID 09/12/17 10/13/17 History Lurasidone HCl [Latuda] 20 mg PO HS 09/12/17 10/13/17 History amLODIPine [Norvasc] 5 mg PO BID 09/12/17 10/13/17 History cloNIDine HCL [Catapres] 0.2 mg PO TID 09/12/17 10/13/17 History metFORMIN HCL 1,000 mg PO BID 09/12/17 10/13/17 History sitaGLIPtin [Januvia] 100 mg PO QAM 09/12/17 10/13/17 History Allergies Allergy/AdvReac Type Severity Reaction Status Date / Time Iodinated Contrast- Oral and Allergy Nausea & Verified 10/13/17 19:55 IV Dye Vomiting Physical Exam Vitals: Vital Signs Temp Pulse Pulse Resp BP BP BP 10/14/17 14:08 181/93 10/14/17 14:07 98.6 F 77 18 171/80 10/14/17 07:00 98.3 F 84 16 170/81 10/14/17 03:39 98.8 F 86 18 158/85 10/14/17 00:45 96 18 167/78 10/13/17 23:01 96 18 178/68 10/13/17 21:28 68 18 166/81 10/13/17 20:34 83 18 194/100 10/13/17 20:13 98.4 F 92 18 216/112 10/13/17 19:04 98.9 F 107 H 20 185/94 Pulse Ox 10/14/17 14:08 10/14/17 14:07 98 10/14/17 07:00 99 10/14/17 03:39 99 10/14/17 00:45 97 10/13/17 23:01 98 10/13/17 21:28 98 10/13/17 20:34 100 10/13/17 20:13 99 10/13/17 19:04 100 Intake and Output 10/14/17 10/14/17 10/14/17 06:59 14:59 22:59 Intake Total 0 Output Total 800 Balance 0 -800 Intake: Oral 0 Output: Urine 800 Straight 800 Other: # Voids 0 Weight 79.379 kg General appearance: The patient is alert, oriented, in no acute distress. HET: Head is normocephalic and atraumatic. Pupils are equal and reactive. Oropharynx is clear without lesions. Neck: Supple without lymphadenopathy. Trachea midline. Heart: S1 S2. Regular rate and rhythm. Lungs: No crackles or wheezes are heard. Abdomen: Soft, mild tenderness midepigastrium right upper quadrant, nondistended with bowel sounds. No peritoneal signs. No palpable organomegaly or masses. Extremities: Normal skin color and turgor. No cyanosis, rash, ulceration, clubbing, or edema. Radial and pedal pulses are 2/4 bilaterally. Neurological: No focal deficits. Strength and sensation are grossly intact. Results CBC & Chem 7: 10/15/17 07:18 10/15/17 07:18 Labs: Abnormal Lab Results - Last 24 Hours (Table) 10/13/17 10/13/17 10/13/17 Range/Units 20:00 20:00 20:00 WBC 13.0 H (3.8-10.6) k/uL RBC (4.30-5.90) m/uL Hgb (13.0-17.5) gm/dL Hct (39.0-53.0) % Neutrophils # 10.3 H (1.3-7.7) k/uL Chloride 97 L (98-107) mmol/L BUN 27 H (9-20) mg/dL Creatinine 1.30 H (0.66-1.25) mg/dL Glucose 350 H (74-99) mg/dL POC Glucose (mg/dL) (75-99) mg/dL Hemoglobin A1c (4.0-6.0) % Plasma Lactic Acid Preet 3.5 H* (0.7-2.0) mmol/L Calcium 10.8 H (8.4-10.2) mg/dL Total Protein 8.3 H (6.3-8.2) g/dL Albumin 5.1 H (3.5-5.0) g/dL Lipase 394 H (23-300) U/L Urine Protein (Negative) Urine Glucose (UA) (Negative) Urine Ketones (Negative) Urine Blood (Negative) Hyaline Casts (0-2) /lpf Urine Mucus (None) /hpf 10/13/17 10/14/17 10/14/17 Range/Units 20:00 00:16 02:04 WBC (3.8-10.6) k/uL RBC (4.30-5.90) m/uL Hgb (13.0-17.5) gm/dL Hct (39.0-53.0) % Neutrophils # (1.3-7.7) k/uL Chloride (98-107) mmol/L BUN (9-20) mg/dL Creatinine (0.66-1.25) mg/dL Glucose (74-99) mg/dL POC Glucose (mg/dL) 258 H (75-99) mg/dL Hemoglobin A1c 6.9 H (4.0-6.0) % Plasma Lactic Acid Preet (0.7-2.0) mmol/L Calcium (8.4-10.2) mg/dL Total Protein (6.3-8.2) g/dL Albumin (3.5-5.0) g/dL Lipase (23-300) U/L Urine Protein 2+ H (Negative) Urine Glucose (UA) 4+ H (Negative) Urine Ketones Trace H (Negative) Urine Blood Trace H (Negative) Hyaline Casts 19 H (0-2) /lpf Urine Mucus Rare H (None) /hpf 10/14/17 10/14/17 10/14/17 Range/Units 07:22 11:49 11:52 WBC (3.8-10.6) k/uL RBC 4.16 L (4.30-5.90) m/uL Hgb 11.6 L (13.0-17.5) gm/dL Hct 35.2 L (39.0-53.0) % Neutrophils # 8.0 H (1.3-7.7) k/uL Chloride (98-107) mmol/L BUN (9-20) mg/dL Creatinine (0.66-1.25) mg/dL Glucose (74-99) mg/dL POC Glucose (mg/dL) 193 H 186 H (75-99) mg/dL Hemoglobin A1c (4.0-6.0) % Plasma Lactic Acid Preet (0.7-2.0) mmol/L Calcium (8.4-10.2) mg/dL Total Protein (6.3-8.2) g/dL Albumin (3.5-5.0) g/dL Lipase (23-300) U/L Urine Protein (Negative) Urine Glucose (UA) (Negative) Urine Ketones (Negative) Urine Blood (Negative) Hyaline Casts (0-2) /lpf Urine Mucus (None) /hpf 10/14/17 Range/Units 11:52 WBC (3.8-10.6) k/uL RBC (4.30-5.90) m/uL Hgb (13.0-17.5) gm/dL Hct (39.0-53.0) % Neutrophils # (1.3-7.7) k/uL Chloride (98-107) mmol/L BUN 25 H (9-20) mg/dL Creatinine (0.66-1.25) mg/dL Glucose 182 H (74-99) mg/dL POC Glucose (mg/dL) (75-99) mg/dL Hemoglobin A1c (4.0-6.0) % Plasma Lactic Acid Preet (0.7-2.0) mmol/L Calcium (8.4-10.2) mg/dL Total Protein (6.3-8.2) g/dL Albumin (3.5-5.0) g/dL Lipase (23-300) U/L Urine Protein (Negative) Urine Glucose (UA) (Negative) Urine Ketones (Negative) Urine Blood (Negative) Hyaline Casts (0-2) /lpf Urine Mucus (None) /hpf CT scan - abdomen: report reviewed (Dr. Garcia) US - abdomen: report reviewed (Dr. Garcia) Assessment and Plan (1) Epigastric pain Narrative/Plan: Acute epigastric right upper quadrant abdominal pain with nausea vomiting bilious emesis 2 weeks with unremarkable HIDA scan and ultrasound of the abdomen. Possible peptic ulcer disease. Current Visit: Yes Status: Acute Code(s): R10.13 - EPIGASTRIC PAIN SNOMED Code(s): 49350403 (2) Anemia Narrative/Plan: Possible acute blood loss Current Visit: Yes Status: Acute Code(s): D64.9 - ANEMIA, UNSPECIFIED SNOMED Code(s): 373378727 Plan: 1. Protonix 40 mg IV daily. 2. EGD evaluation. 3. Light diet as tolerated. The chick room supervisor has discussed the risks, benefits and alternative therapies for the above-mentioned procedure and for both sedation/analgesia as well as necessary blood product administration, if indicated, as they pertain to this patient. The patient has indicated understanding and acceptance of the risks and procedures discussed. Thank you for this kind referral and the opportunity to participate in the care of your patient. This consultation was discussed with Dr. Garcia. The impression and plan of care have been directed as dictated.
[2017-10-14] MEDS ORDERED: PANTOPRAZOLE 40 MG/10 ML VIAL IVP SCH (15:15)
[2017-10-14] MEDS: hydrALAZINE HCL 20 MG/ML 1 ML VIAL IVP SCH ×2 (16:00→23:58)
[2017-10-14 17:35] LABS: Glucose,Whole Blood 275 mg/dL (75-99)
[2017-10-14 21:04] LABS: Glucose,Whole Blood 274 mg/dL (75-99)
[2017-10-14] MEDS: PANTOPRAZOLE 40 MG/10 ML VIAL IVP SCH (21:41)
[2017-10-14] MEDS: MELATONIN 3 MG TABLET PO SCH (23:53)
[2017-10-15 02:23] LABS: Glucose,Whole Blood 141 mg/dL (75-99)
[2017-10-15 07:23] LABS: Glucose,Whole Blood 173 mg/dL (75-99)
[2017-10-15 07:52] LABS: Basophils % (A) 0 %; Eosinophils # (A) 0.1 k/uL (0-0.7); Eosinophils % (A) 1 %; HCT 28.6 % (39.0-53.0); Lymphocytes # (A) 1.8 k/uL (1.0-4.8); Lymphocytes % (A) 19 %; MCH 28.9 pg (25.0-35.0); MCHC 34.3 g/dL (31.0-37.0); MCV 84.4 fL (80.0-100.0); Mean Platelet Volume 6.7; Monocytes # (A) 0.7 k/uL (0-1.0); Monocytes % (A) 7 %; Neutrophils # (A) 6.6 k/uL (1.3-7.7); Neutrophils % (A) 71 %; Platelet Count 157 k/uL (150-450); RBC 3.39 m/uL (4.30-5.90); RDW 12.9 % (11.5-15.5); WBC 9.3 k/uL (3.8-10.6)
[2017-10-15 07:53] LABS: Albumin 3.2 g/dL (3.5-5.0); Calcium 8.5 mg/dL (8.4-10.2); Potassium 4.3 mmol/L (3.5-5.1); Total Bilirubin 0.4 mg/dL (0.2-1.3); Total Protein 5.5 g/dL (6.3-8.2)
[2017-10-15 08:02] LABS: HGB 9.8 gm/dL (13.0-17.5)
[2017-10-15] MEDS: SODIUM CHLORIDE 0.9% 1,000 ML IV SCH ×2 (08:09→21:02)
[2017-10-15] MEDS: hydrALAZINE HCL 20 MG/ML 1 ML VIAL IVP SCH ×2 (08:09→15:55)
[2017-10-15] MEDS: PANTOPRAZOLE 40 MG/10 ML VIAL IVP SCH ×2 (08:09→21:02)
[2017-10-15] MEDS: TAMSULOSIN 0.4 MG CAP.ER.24H PO SCH (08:09)
[2017-10-15] MEDS: INSULIN ASPART 100 UNIT/ML 1 ML 10 ML VIAL SQ SCH ×4 (08:09→21:03)
--- NOTE | 2017-10-15 12:02 | P.PN ---
Subjective Progress Note Date: 10/15/17 Principal diagnosis: Epigastric pain nausea vomiting Feels better today. No emesis. Tolerating diet. Intermittent epigastric right upper quadrant pain. Afebrile. Hemoglobin decreased to 9.8 today. White count 9.3. BUN 25. Creatinine 1.1. Denies hematemesis hematochezia melena. Objective - Vital Signs Vital signs: Vital Signs Temp 97.8 F 10/15/17 06:00 Pulse 76 10/15/17 06:00 Resp 18 10/15/17 06:00 BP 132/72 10/15/17 06:00 Pulse Ox 98 10/15/17 06:00 Intake & Output 10/14/17 10/15/17 10/15/17 18:59 06:59 18:59 Intake Total 800 Output Total 1200 800 Balance -1200 0 Weight 79.379 kg Intake: Oral 800 Output: Urine 1200 800 Straight 800 Other: Voiding Method Indwelling Catheter # Voids 0 0 # Bowel Movements 0 - Exam General appearance: The patient is alert, oriented, in no acute distress. HET: Head is normocephalic and atraumatic. Pupils are equal and reactive. Oropharynx is clear without lesions. Neck: Supple without lymphadenopathy. Trachea midline. Heart: S1 S2. Regular rate and rhythm. Lungs: No crackles or wheezes are heard. Abdomen: Soft, mild tenderness midepigastrium right upper quadrant, nondistended with bowel sounds. No peritoneal signs. No palpable organomegaly or masses. Extremities: Normal skin color and turgor. No cyanosis, rash, ulceration, clubbing, or edema. Radial and pedal pulses are 2/4 bilaterally. Neurological: No focal deficits. Strength and sensation are grossly intact. - Labs CBC & Chem 7: 10/15/17 07:18 10/15/17 07:18 Labs: Abnormal Lab Results - Last 24 Hours (Table) 10/13/17 10/14/17 10/14/17 Range/Units 20:00 11:49 11:52 RBC 4.16 L (4.30-5.90) m/uL Hgb 11.6 L (13.0-17.5) gm/dL Hct 35.2 L (39.0-53.0) % Neutrophils # 8.0 H (1.3-7.7) k/uL Chloride (98-107) mmol/L BUN (9-20) mg/dL Glucose (74-99) mg/dL POC Glucose (mg/dL) 186 H (75-99) mg/dL Hemoglobin A1c 6.9 H (4.0-6.0) % Total Protein (6.3-8.2) g/dL Albumin (3.5-5.0) g/dL 10/14/17 10/14/17 10/14/17 Range/Units 11:52 17:02 20:54 RBC (4.30-5.90) m/uL Hgb (13.0-17.5) gm/dL Hct (39.0-53.0) % Neutrophils # (1.3-7.7) k/uL Chloride (98-107) mmol/L BUN 25 H (9-20) mg/dL Glucose 182 H (74-99) mg/dL POC Glucose (mg/dL) 275 H 274 H (75-99) mg/dL Hemoglobin A1c (4.0-6.0) % Total Protein (6.3-8.2) g/dL Albumin (3.5-5.0) g/dL 10/15/17 10/15/17 10/15/17 Range/Units 02:19 07:17 07:18 RBC 3.39 L (4.30-5.90) m/uL Hgb 9.8 L D (13.0-17.5) gm/dL Hct 28.6 L (39.0-53.0) % Neutrophils # (1.3-7.7) k/uL Chloride (98-107) mmol/L BUN (9-20) mg/dL Glucose (74-99) mg/dL POC Glucose (mg/dL) 141 H 173 H (75-99) mg/dL Hemoglobin A1c (4.0-6.0) % Total Protein (6.3-8.2) g/dL Albumin (3.5-5.0) g/dL 10/15/17 Range/Units 07:18 RBC (4.30-5.90) m/uL Hgb (13.0-17.5) gm/dL Hct (39.0-53.0) % Neutrophils # (1.3-7.7) k/uL Chloride 108 H (98-107) mmol/L BUN 25 H (9-20) mg/dL Glucose 172 H (74-99) mg/dL POC Glucose (mg/dL) (75-99) mg/dL Hemoglobin A1c (4.0-6.0) % Total Protein 5.5 L (6.3-8.2) g/dL Albumin 3.2 L (3.5-5.0) g/dL Microbiology - Last 24 Hours (Table) 10/13/17 20:00 Blood Culture - Preliminary Blood No Growth after 24 hours Assessment and Plan (1) Epigastric pain Narrative/Plan: Acute epigastric right upper quadrant abdominal pain with nausea vomiting bilious emesis 2 weeks with unremarkable HIDA scan and ultrasound of the abdomen. Possible peptic ulcer disease. Current Visit: Yes Status: Acute Code(s): R10.13 - EPIGASTRIC PAIN SNOMED Code(s): 00916826 (2) Anemia Narrative/Plan: Possible acute blood loss anemia without overt GI bleeding such as hematemesis hematochezia or melena. Current Visit: Yes Status: Acute Code(s): D64.9 - ANEMIA, UNSPECIFIED SNOMED Code(s): 026695973 Plan: 1. Continue with diet as tolerated. Continue with Protonix 40 mg twice daily. 2. EGD evaluation tomorrow. CBC monitoring. The recreation supervisor has discussed the risks, benefits and alternative therapies for the above-mentioned procedure and for both sedation/analgesia as well as necessary blood product administration, if indicated, as they pertain to this patient. The patient has indicated understanding and acceptance of the risks and procedures discussed. Assessment and plan a care discussed with Dr. Garcia
[2017-10-15 12:15] LABS: Glucose,Whole Blood 238 mg/dL (75-99)
--- NOTE | 2017-10-15 14:11 | P.PN ---
Subjective Patient epigastric abdominal pain is improving, his nausea and vomiting is controlled, is undergoing EGD tomorrow Objective - Vital Signs Vital signs: Vital Signs Temp 97.8 F 10/15/17 06:00 Pulse 76 10/15/17 06:00 Resp 18 10/15/17 06:00 BP 132/72 10/15/17 06:00 Pulse Ox 98 10/15/17 06:00 Intake & Output 10/14/17 10/15/17 10/15/17 18:59 06:59 18:59 Intake Total 800 Output Total 1200 800 Balance -1200 0 Weight 79.379 kg Intake: Oral 800 Output: Urine 1200 800 Straight 800 Other: Voiding Method Indwelling Catheter # Voids 0 0 # Bowel Movements 0 - Exam Constitutional: No acute distress, conversant, pleasant Eyes: Anicteric sclerae, moist conjunctiva, no lid-lag PERRLA ENMT: NC/AT Oropharynx clear, no erythema, exudates Neck: Supple, FROM, no masses, or JVD No carotid bruits No thyromegaly Lungs: Clear to auscultation Clear to percussion Normal respiratory effort, no accessory muscle use Cardiovascular: Heart regular in rate and rhythm, No murmurs, gallops, or rubs No peripheral edema Abdominal: Soft Epigastric tenderness, no guarding, rebound or rigidity Abdomen moving with respiration Normoactive bowel sounds No hepatomegaly, No splenomegaly No palpable mass No abdominal wall hernia noted Skin: Normal temperature, tone, texture, turgor No induration No subcutaneous nodules No rash, lesions No ulcers Extremities: No digital cyanosis No clubbing Pedal pulses intact and symmetrical Radial pulses intact and symmetrical Normal gait and station No calf tenderness Psychiatric: Alert and oriented to person, place and time Appropriate affect Intact judgement Neuro: Muscles Strength 5/5 in all 4 extremities Sensation to light touch grossly present throughout Cranial nerves II-XII grossly intact No focal sensory deficits - Labs CBC & Chem 7: 10/15/17 07:18 10/15/17 07:18 Labs: Abnormal Lab Results - Last 24 Hours (Table) 10/13/17 10/14/17 10/14/17 Range/Units 20:00 17:02 20:54 RBC (4.30-5.90) m/uL Hgb (13.0-17.5) gm/dL Hct (39.0-53.0) % Chloride (98-107) mmol/L BUN (9-20) mg/dL Glucose (74-99) mg/dL POC Glucose (mg/dL) 275 H 274 H (75-99) mg/dL Hemoglobin A1c 6.9 H (4.0-6.0) % Total Protein (6.3-8.2) g/dL Albumin (3.5-5.0) g/dL 10/15/17 10/15/17 10/15/17 Range/Units 02:19 07:17 07:18 RBC 3.39 L (4.30-5.90) m/uL Hgb 9.8 L D (13.0-17.5) gm/dL Hct 28.6 L (39.0-53.0) % Chloride (98-107) mmol/L BUN (9-20) mg/dL Glucose (74-99) mg/dL POC Glucose (mg/dL) 141 H 173 H (75-99) mg/dL Hemoglobin A1c (4.0-6.0) % Total Protein (6.3-8.2) g/dL Albumin (3.5-5.0) g/dL 10/15/17 10/15/17 Range/Units 07:18 12:12 RBC (4.30-5.90) m/uL Hgb (13.0-17.5) gm/dL Hct (39.0-53.0) % Chloride 108 H (98-107) mmol/L BUN 25 H (9-20) mg/dL Glucose 172 H (74-99) mg/dL POC Glucose (mg/dL) 238 H (75-99) mg/dL Hemoglobin A1c (4.0-6.0) % Total Protein 5.5 L (6.3-8.2) g/dL Albumin 3.2 L (3.5-5.0) g/dL Microbiology - Last 24 Hours (Table) 10/13/17 20:00 Blood Culture - Preliminary Blood No Growth after 24 hours Assessment and Plan Assessment: -Epigastric pain, unknown etiology possible gastric -Hyperlipidemia -DM -Hypertension -CAD Assessment Patient symptoms of abdominal pain, nausea and vomiting are improving, patient has been evaluated by breadman and their note is appreciated patient is going for EGD tomorrow
--- NOTE | 2017-10-15 14:30 | P.GSCN ---
History of Present Illness Consult date: 10/15/17 Reason for Consult: Abdominal pain History of present illness: Patient hospitalized with a second admission for intractable vomiting. Patient has a history of diabetes. He does have neuropathy. His blood sugar was elevated. Pain was a secondary symptom with the main issue being intractable vomiting. Emesis was bilious. Lipase was slightly elevated at 394. Patient had 2 separate gallbladder ultrasounds. On the first study there was a question of possible sludge. HIDA scan was normal. CAT scan was relatively normal. He has been seen by GI. They have plans for upper endoscopy tomorrow. Denies diarrhea or constipation. No rectal bleeding or melena. No history of similar events. No sick contacts. No recent travel. Liver enzymes have always been normal. Review of Systems The patient denies any acute changes in vision or hearing, no dysphagia or odynophagia, no chest pain or shortness of breath, no dysuria or hematuria, no headache, no runny nose, no rectal bleeding or melena, no unexplained weight loss Past Medical History Past Medical History: CVA/TIA, Diabetes Mellitus, Hyperlipidemia, Hypertension, Myocardial Infarction ([place]), Renal Disease, Rheumatoid Arthritis (RA) Additional Past Medical History / Comment(s): stroke nov, migranes, diabetic neuropathy arms and legs, stage 2 kidney failure Last Myocardial Infarction Date:: 2014? not sure History of Any Multi-Drug Resistant Organisms: None Reported Past Surgical History: No Surgical Hx Reported Past Anesthesia/Blood Transfusion Reactions: Unable to Obtain Additional Past Anesthesia/Blood Transfusion Reaction / Comm: never had anethesia Past Psychological History: Anxiety, Depression Additional Psychological History / Comment(s): Pt resides with his spouse. He uses a quad cane or walker to ambulate. He is legally blind. He reads minimally with magnifying glass and signs his name only now. His spouse drives him to [employer]. Smoking Status: Never smoker Past Alcohol Use History: None Reported Past Drug Use History: None Reported - Past Family History Mother Family Medical History: CVA/TIA, Diabetes Mellitus, Hypertension Additional Family Medical History / Comment(s): Mother is 77yrs old. Father Family Medical History: CVA/TIA, Diabetes Mellitus, Myocardial Infarction ([place]) Additional Family Medical History / Comment(s): Father of a [place] in his 50s. Medications and Allergies Home Medications Medication Instructions Recorded Confirmed Type Aspirin 325 mg PO DAILY 09/12/17 10/13/17 History Atorvastatin [Lipitor] 40 mg PO HS 09/12/17 10/13/17 History Citalopram Hydrobromide [CeleXA] 40 mg PO QAM 09/12/17 10/13/17 History Docusate Sodium [Dok] 100 mg PO BID 09/12/17 10/13/17 History Gabapentin 600 mg PO HS 09/12/17 10/13/17 History Glimepiride [Amaryl] 1 mg PO DAILY 09/12/17 10/13/17 History Lisinopril [Zestril] 20 mg PO BID 09/12/17 10/13/17 History Lurasidone HCl [Latuda] 20 mg PO HS 09/12/17 10/13/17 History amLODIPine [Norvasc] 5 mg PO BID 09/12/17 10/13/17 History cloNIDine HCL [Catapres] 0.2 mg PO TID 09/12/17 10/13/17 History metFORMIN HCL 1,000 mg PO BID 09/12/17 10/13/17 History sitaGLIPtin [Januvia] 100 mg PO QAM 09/12/17 10/13/17 History Allergies Allergy/AdvReac Type Severity Reaction Status Date / Time Iodinated Contrast- Oral and Allergy Nausea & Verified 10/13/17 19:55 IV Dye Vomiting Surgical - Exam Vital Signs Temp Pulse Resp BP Pulse Ox 98.9 F 107 H 20 185/94 100 10/13/17 19:04 10/13/17 19:04 10/13/17 19:04 10/13/17 19:04 10/13/17 19:04 Physical exam: General: Well-developed, well-nourished HEENT: Normocephalic, sclerae nonicteric Abdomen: Nontender, nondistended Extremities: No edema Neuro: Alert and oriented Results - Labs 10/15/17 07:18 10/15/17 07:18 Abnormal Lab Results - Last 24 Hours (Table) 10/13/17 10/14/17 10/14/17 Range/Units 20:00 17:02 20:54 RBC (4.30-5.90) m/uL Hgb (13.0-17.5) gm/dL Hct (39.0-53.0) % Chloride (98-107) mmol/L BUN (9-20) mg/dL Glucose (74-99) mg/dL POC Glucose (mg/dL) 275 H 274 H (75-99) mg/dL Hemoglobin A1c 6.9 H (4.0-6.0) % Total Protein (6.3-8.2) g/dL Albumin (3.5-5.0) g/dL 10/15/17 10/15/17 10/15/17 Range/Units 02:19 07:17 07:18 RBC 3.39 L (4.30-5.90) m/uL Hgb 9.8 L D (13.0-17.5) gm/dL Hct 28.6 L (39.0-53.0) % Chloride (98-107) mmol/L BUN (9-20) mg/dL Glucose (74-99) mg/dL POC Glucose (mg/dL) 141 H 173 H (75-99) mg/dL Hemoglobin A1c (4.0-6.0) % Total Protein (6.3-8.2) g/dL Albumin (3.5-5.0) g/dL 10/15/17 10/15/17 Range/Units 07:18 12:12 RBC (4.30-5.90) m/uL Hgb (13.0-17.5) gm/dL Hct (39.0-53.0) % Chloride 108 H (98-107) mmol/L BUN 25 H (9-20) mg/dL Glucose 172 H (74-99) mg/dL POC Glucose (mg/dL) 238 H (75-99) mg/dL Hemoglobin A1c (4.0-6.0) % Total Protein 5.5 L (6.3-8.2) g/dL Albumin 3.2 L (3.5-5.0) g/dL Microbiology - Last 24 Hours (Table) 10/13/17 20:00 Blood Culture - Preliminary Blood No Growth after 24 hours Diabetes panel 10/13/17 10/15/17 Range/Units 20:00 07:18 Sodium 142 (137-145) mmol/L Potassium 4.3 (3.5-5.1) mmol/L Chloride 108 H (98-107) mmol/L Carbon Dioxide 24 (22-30) mmol/L BUN 25 H (9-20) mg/dL Creatinine 1.14 (0.66-1.25) mg/dL Glucose 172 H (74-99) mg/dL Hemoglobin A1c 6.9 H (4.0-6.0) % Calcium 8.5 (8.4-10.2) mg/dL AST 24 (17-59) U/L ALT 33 (21-72) U/L Alkaline Phosphatase 66 (38-126) U/L Total Protein 5.5 L (6.3-8.2) g/dL Albumin 3.2 L (3.5-5.0) g/dL Calcium panel 10/15/17 Range/Units 07:18 Calcium 8.5 (8.4-10.2) mg/dL Albumin 3.2 L (3.5-5.0) g/dL Pituitary panel 10/15/17 Range/Units 07:18 Sodium 142 (137-145) mmol/L Potassium 4.3 (3.5-5.1) mmol/L Chloride 108 H (98-107) mmol/L Carbon Dioxide 24 (22-30) mmol/L BUN 25 H (9-20) mg/dL Creatinine 1.14 (0.66-1.25) mg/dL Glucose 172 H (74-99) mg/dL Calcium 8.5 (8.4-10.2) mg/dL Adrenal panel 10/15/17 Range/Units 07:18 Sodium 142 (137-145) mmol/L Potassium 4.3 (3.5-5.1) mmol/L Chloride 108 H (98-107) mmol/L Carbon Dioxide 24 (22-30) mmol/L BUN 25 H (9-20) mg/dL Creatinine 1.14 (0.66-1.25) mg/dL Glucose 172 H (74-99) mg/dL Calcium 8.5 (8.4-10.2) mg/dL Total Bilirubin 0.4 (0.2-1.3) mg/dL AST 24 (17-59) U/L ALT 33 (21-72) U/L Alkaline Phosphatase 66 (38-126) U/L Total Protein 5.5 L (6.3-8.2) g/dL Albumin 3.2 L (3.5-5.0) g/dL Assessment and Plan (1) Nausea & vomiting Narrative/Plan: Etiology for the patient's intractable vomiting is unclear. Await upper endoscopy tomorrow. Given the first ultrasound showing possible sludge underlying biliary source of his symptoms has not been fully excluded. Certainly gastroparesis is also a possibility. May have been exacerbated by a viral illness. We'll follow with you. Current Visit: Yes Status: Acute Code(s): R11.2 - NAUSEA WITH VOMITING, UNSPECIFIED SNOMED Code(s): 14987639
[2017-10-15 17:31] LABS: Glucose,Whole Blood 226 mg/dL (75-99)
[2017-10-15 20:59] LABS: Glucose,Whole Blood 158 mg/dL (75-99)
[2017-10-15] MEDS: MELATONIN 3 MG TABLET PO SCH (21:02)
[2017-10-16] MEDS: hydrALAZINE HCL 20 MG/ML 1 ML VIAL IVP SCH ×4 (01:13→23:36)
[2017-10-16 02:27] LABS: Glucose,Whole Blood 168 mg/dL (75-99)
[2017-10-16] MEDS: SODIUM CHLORIDE 0.9% 1,000 ML IV SCH ×3 (05:41→23:36)
[2017-10-16 06:53] LABS: Glucose,Whole Blood 184 mg/dL (75-99)
[2017-10-16] MEDS: INSULIN ASPART 100 UNIT/ML 1 ML 10 ML VIAL SQ SCH ×4 (08:01→21:00)
[2017-10-16] MEDS: PANTOPRAZOLE 40 MG/10 ML VIAL IVP SCH ×2 (08:08→20:59)
[2017-10-16] MEDS: TAMSULOSIN 0.4 MG CAP.ER.24H PO SCH (08:09)
[2017-10-16 11:11] LABS: Glucose,Whole Blood 186 mg/dL (75-99)
[2017-10-16] MEDS: LACTATED RINGERS 1,000 ML IV SCH (11:20)
--- NOTE | 2017-10-16 11:54 | P.PN ---
Subjective Patient is seen and examined by me at bedside Patient is still nothing by mouth he has this abdominal pain/3-4, no more nausea and vomiting Patient is going for EGD today Objective - Vital Signs Vital signs: Vital Signs Temp 98.3 F 10/16/17 06:59 Pulse 86 10/16/17 08:00 Resp 18 10/16/17 08:00 BP 135/74 10/16/17 06:59 Pulse Ox 96 10/16/17 06:59 Intake & Output 10/15/17 10/16/17 10/16/17 18:59 06:59 18:59 Intake Total 800 1400 Output Total 1000 1000 Balance -200 400 Intake: Intake, IV Titration 800 800 Amount Sodium Chloride 0.9% 1, 800 800 000 ml @ 100 mls/hr IV . Q10H [facility] Rx#:[id number] Oral 600 Output: Urine 1000 1000 Other: Voiding Method Indwelling Catheter Indwelling Catheter Indwelling Catheter - Exam Constitutional: No acute distress, conversant, pleasant Eyes: Anicteric sclerae, moist conjunctiva, no lid-lag PERRLA ENMT: NC/AT Oropharynx clear, no erythema, exudates Neck: Supple, FROM, no masses, or JVD No carotid bruits No thyromegaly Lungs: Clear to auscultation Clear to percussion Normal respiratory effort, no accessory muscle use Cardiovascular: Heart regular in rate and rhythm, No murmurs, gallops, or rubs No peripheral edema Abdominal: Soft Epigastric tenderness, improving, no guarding, rebound or rigidity Abdomen moving with respiration Normoactive bowel sounds No hepatomegaly, No splenomegaly No palpable mass No abdominal wall hernia noted Skin: Normal temperature, tone, texture, turgor No induration No subcutaneous nodules No rash, lesions No ulcers Extremities: No digital cyanosis No clubbing Pedal pulses intact and symmetrical Radial pulses intact and symmetrical Normal gait and station No calf tenderness Psychiatric: Alert and oriented to person, place and time Appropriate affect Intact judgement Neuro: Muscles Strength 5/5 in all 4 extremities Sensation to light touch grossly present throughout Cranial nerves II-XII grossly intact No focal sensory deficits - Labs CBC & Chem 7: 10/15/17 07:18 10/15/17 07:18 Labs: Abnormal Lab Results - Last 24 Hours (Table) 04/26/18 04/26/18 04/26/18 Range/Units 12:12 17:19 20:54 POC Glucose (mg/dL) 238 H 226 H 158 H (75-99) mg/dL 10/16/17 10/16/17 10/16/17 Range/Units 02:18 06:49 11:09 POC Glucose (mg/dL) 168 H 184 H 186 H (75-99) mg/dL Microbiology - Last 24 Hours (Table) 10/13/17 20:00 Blood Culture - Preliminary Blood No Growth after 48 hours Assessment and Plan Assessment: -Epigastric pain, unknown etiology possible gastric -Hyperlipidemia -DM -Hypertension -CAD Plan Patient is nothing by mouth, this severe abdominal pain, no nausea vomiting, EGD today, Surgical consultation is noted and appreciated
--- NOTE | 2017-10-16 13:43 | P.PN ---
Subjective Progress Note Date: 10/16/17 Principal diagnosis: Intractable vomiting Patient feels better today. No nausea or vomiting currently. Denies abdominal pain. Waiting for upper endoscopy at this time. Objective - Vital Signs Vital signs: Vital Signs Temp 98.3 F 10/16/17 06:59 Pulse 86 10/16/17 08:00 Resp 18 10/16/17 08:00 BP 135/74 10/16/17 06:59 Pulse Ox 96 10/16/17 06:59 Intake & Output 10/15/17 10/16/17 10/16/17 18:59 06:59 18:59 Intake Total 800 1400 Output Total 1000 1000 Balance -200 400 Intake: Intake, IV Titration 800 800 Amount Sodium Chloride 0.9% 1, 800 800 000 ml @ 100 mls/hr IV . Q10H [facility] Rx#:[id number] Oral 600 Output: Urine 1000 1000 Other: Voiding Method Indwelling Catheter Indwelling Catheter Indwelling Catheter - Exam Abdomen: Soft, nontender, nondistended - Labs CBC & Chem 7: 10/15/17 07:18 10/15/17 07:18 Labs: Abnormal Lab Results - Last 24 Hours (Table) 10/15/17 10/15/17 10/16/17 Range/Units 17:19 20:54 02:18 POC Glucose (mg/dL) 226 H 158 H 168 H (75-99) mg/dL 10/16/17 10/16/17 Range/Units 06:49 11:09 POC Glucose (mg/dL) 184 H 186 H (75-99) mg/dL Microbiology - Last 24 Hours (Table) 10/13/17 20:00 Blood Culture - Preliminary Blood No Growth after 48 hours Assessment and Plan (1) Nausea & vomiting Narrative/Plan: Await upper endoscopy findings today. Monitor blood sugar closely. Will follow. Current Visit: Yes Status: Acute Code(s): R11.2 - NAUSEA WITH VOMITING, UNSPECIFIED SNOMED Code(s): 53518046
[2017-10-16] MEDS ORDERED: LIDOCAINE 1% INJ 10MG/ML (20 ML MDV) ONE (15:59)
[2017-10-16] MEDS ORDERED: PROPOFOL 10 MG/ML 20 ML VIAL IV ONE (15:59)
[2017-10-16] MEDS ORDERED: MIDAZOLAM 2 MG/2 ML VIAL ONE (15:59)
[2017-10-16] MEDS ORDERED: IV FLUID CONTINUATION 1,000 ML IV ONE (16:00)
--- NOTE | 2017-10-16 16:11 | P.PCN ---
Date of Procedure: 10/16/17 Procedure(s) Performed: BRIEF HISTORY: Patient is a 52-year-old, pleasant, male, with history of diabetes mellitus admitted to the hospital with epigastric pain associated with nausea vomiting for the last few weeks duration. He scheduled for an upper endoscopy to evaluate further. PROCEDURE PERFORMED: Esophagogastroduodenoscopy with biopsy. PREOPERATIVE DIAGNOSIS: Epigastric pain/nausea and vomiting of 2 weeks duration. IV sedation per anesthesia. PROCEDURE: After informed consent was obtained, the patient was brought into the endoscopy unit. IV sedation was administered by Anesthesia under continuous monitoring. Initially the Olympus GIF-140 video endoscope was inserted into the mouth. Esophagus intubated without any difficulty. It was gradually advanced into the stomach and duodenum and carefully examined. The bulb and the second part of the duodenum appeared normal. The scope at this time was withdrawn to the stomach, adequately insufflated with air, and upon careful examination, mucosa of the antrum, had mild patchy areas of erythema in the prepyloric area and biopsies were done from here. The body, cardia and the fundus appeared normal. The scope was then withdrawn into the esophagus. The GE junction was located at 41 cm from the incisors. There were 2 superficial erosions at the GE junction consistent with LA grade A reflux esophagitis area to rest of esophagus appeared normal and the patient tolerated the procedure well. IMPRESSION: 1. Mild antral gastritis but no evidence of peptic ulcer disease. 2. 2 superficial erosions at the GE junction consistent with LA grade A reflux esophagitis. RECOMMENDATIONS: The findings of this examination were discussed with the patient and he was advised to follow with the biopsy results. He will continue with Protonix 40 mg daily and follow antireflux measures..
[2017-10-16 17:23] LABS: Glucose,Whole Blood 177 mg/dL (75-99)
[2017-10-16] MEDS: ONDANSETRON 4 MG/2 ML VIAL IVP PRN (19:24)
[2017-10-16 20:54] LABS: Glucose,Whole Blood 327 mg/dL (75-99)
[2017-10-16] MEDS: MELATONIN 3 MG TABLET PO SCH (21:00)
[2017-10-17 07:12] LABS: Glucose,Whole Blood 174 mg/dL (75-99)
[2017-10-17] MEDS: PANTOPRAZOLE 40 MG/10 ML VIAL IVP SCH ×2 (08:04→21:30)
[2017-10-17] MEDS: INSULIN ASPART 100 UNIT/ML 1 ML 10 ML VIAL SQ SCH ×4 (08:05→21:30)
[2017-10-17] MEDS: TAMSULOSIN 0.4 MG CAP.ER.24H PO SCH (08:05)
[2017-10-17] MEDS: hydrALAZINE HCL 20 MG/ML 1 ML VIAL IVP SCH ×2 (08:05→18:09)
--- NOTE | 2017-10-17 10:17 | P.PN ---
Subjective Progress Note Date: 10/17/17 Principal diagnosis: Intractable vomiting Patient feels better today. Pain is improved. No nausea or vomiting currently. Apparently is having difficulty urinating. Garcia catheter in place. Upper endoscopy yesterday showed gastritis and esophagitis. Objective - Vital Signs Vital signs: Vital Signs Temp 98.4 F 10/17/17 05:49 Pulse 93 10/17/17 05:49 Resp 16 10/17/17 05:49 BP 117/69 10/17/17 05:49 Pulse Ox 98 10/17/17 05:49 Intake & Output 10/16/17 10/17/17 10/17/17 18:59 06:59 18:59 Intake Total 320 Output Total 900 1050 Balance -900 -1050 320 Weight 79.379 kg Intake: Oral 320 Output: Urine 900 1050 Other: Voiding Method Indwelling Catheter Indwelling Catheter # Bowel Movements 0 - Exam Abdomen: Soft, nondistended, nontender - Labs CBC & Chem 7: 10/15/17 07:18 10/15/17 07:18 Labs: Abnormal Lab Results - Last 24 Hours (Table) 10/16/17 10/16/17 10/16/17 Range/Units 11:09 17:10 20:53 POC Glucose (mg/dL) 186 H 177 H 327 H (75-99) mg/dL 10/17/17 Range/Units 07:10 POC Glucose (mg/dL) 174 H (75-99) mg/dL Microbiology - Last 24 Hours (Table) 10/13/17 20:00 Blood Culture - Preliminary Blood No Growth after 72 hours Assessment and Plan (1) Nausea & vomiting Narrative/Plan: Continue diet. Continue antiacid therapy. No surgical plans. We'll sign off. Current Visit: Yes Status: Acute Code(s): R11.2 - NAUSEA WITH VOMITING, UNSPECIFIED SNOMED Code(s): 67779335
--- NOTE | 2017-10-17 10:42 | PN ---
PROGRESS NOTE DATE OF SERVICE: 10/17/17 The patient is a 52-year-old pleasant white male admitted to hospital with epigastric pain associated with nausea, vomiting for the last 3 days duration. He was admitted to the hospital 2 weeks ago with similar symptoms. Had workup done for the gallbladder including a HIDA scan, and they were negative and he was discharged home. He continued to have symptoms despite being on proton pump inhibitor therapy and hence he underwent an upper endoscopy yesterday that showed evidence of mild gastritis and LA grade B reflux esophagitis. The patient has been on Protonix 40 mg q.12 hours. This morning he is feeling better. He still has some epigastric pain. He is on a regular diet, tolerating reasonably well. Has some nausea. PHYSICAL EXAMINATION: He appears comfortable. No apparent distress. VITAL SIGNS: Stable. Blood pressure is 143/80, pulse rate 90, temperature 97.4. HEENT examination unremarkable. Conjunctivae pink. Sclerae anicteric. Oral cavity no lesions. Neck: No jugular venous distention or lymph node enlargement. Chest was clear to auscultation. HEART: Regular rate and rhythm. ABDOMEN: Soft. There was mild tenderness in the epigastric area. Bowel sounds are positive. No organomegaly. Extremities: No pedal edema. Skin no rashes. NEUROLOGIC: Alert and oriented x3. No focal deficits. IMPRESSION: Epigastric pain associated with nausea, vomiting for the last 2 weeks duration. Upper endoscopy done yesterday showed mild gastritis and LA grade B reflux esophagitis. He did have an ultrasound as well as a HIDA scan for possible gallbladder pathology 2 weeks ago, which was all negative. His symptoms are gradually improving on current proton pump inhibitor therapy. RECOMMENDATIONS: 1. Continue with Protonix 40 mg b.i.d. 2. Small frequent meals. 3. I briefly educated him about anti-reflux measures. 4. Was advised to follow up in office in 2-3 weeks following discharge from the hospital. Thank you for this consultation. MMODL / IJN: [id number] /
[2017-10-17] MEDS: SODIUM CHLORIDE 0.9% 1,000 ML IV SCH ×2 (11:22→21:29)
--- NOTE | 2017-10-17 11:22 | P.PN ---
Subjective Patient is seen and examined by me at bedside Patient still complaining from epigastric abdominal pain although says little better, no nausea vomiting Patient is a s/p EGD on 10/16/2017 Patient is not tolerating regular diet. No chest pain no dyspnea Still has Garcia catheter in place, patient started on Flomax Objective - Vital Signs Vital signs: Vital Signs Temp 98.4 F 10/17/17 05:49 Pulse 93 10/17/17 05:49 Resp 16 10/17/17 05:49 BP 117/69 10/17/17 05:49 Pulse Ox 98 10/17/17 05:49 Intake & Output 10/16/17 10/17/17 10/17/17 18:59 06:59 18:59 Intake Total 320 Output Total 900 1050 Balance -900 -1050 320 Weight 79.379 kg Intake: Oral 320 Output: Urine 900 1050 Other: Voiding Method Indwelling Catheter Indwelling Catheter Indwelling Catheter # Bowel Movements 0 - Exam Constitutional: No acute distress, conversant, pleasant Eyes: Anicteric sclerae, moist conjunctiva, no lid-lag PERRLA ENMT: NC/AT Oropharynx clear, no erythema, exudates Neck: Supple, FROM, no masses, or JVD No carotid bruits No thyromegaly Lungs: Clear to auscultation Clear to percussion Normal respiratory effort, no accessory muscle use Cardiovascular: Heart regular in rate and rhythm, No murmurs, gallops, or rubs No peripheral edema Abdominal: Soft Epigastric tenderness, no guarding, rebound or rigidity Abdomen moving with respiration Normoactive bowel sounds No hepatomegaly, No splenomegaly No palpable mass No abdominal wall hernia noted Skin: Normal temperature, tone, texture, turgor No induration No subcutaneous nodules No rash, lesions No ulcers Extremities: No digital cyanosis No clubbing Pedal pulses intact and symmetrical Radial pulses intact and symmetrical Normal gait and station No calf tenderness Psychiatric: Alert and oriented to person, place and time Appropriate affect Intact judgement Neuro: Muscles Strength 5/5 in all 4 extremities Sensation to light touch grossly present throughout Cranial nerves II-XII grossly intact No focal sensory deficits - Labs CBC & Chem 7: 10/15/17 07:18 10/15/17 07:18 Labs: Abnormal Lab Results - Last 24 Hours (Table) 10/16/17 10/16/17 10/17/17 Range/Units 17:10 20:53 07:10 POC Glucose (mg/dL) 177 H 327 H 174 H (75-99) mg/dL Microbiology - Last 24 Hours (Table) 10/13/17 20:00 Blood Culture - Preliminary Blood No Growth after 72 hours Assessment and Plan Assessment: -Epigastric pain, gastritis with reflux esophagitis -Hyperlipidemia -DM -Hypertension -h/o CAD Plan Patient is still with abdominal pain, no nausea vomiting, EGD: Gastritis, no peptic ulcer disease 2 superficial erosions of the esophagus with reflux esophagitis, continue with PPI and small frequent meals as per GI recommendations Surgical consultation is noted and appreciated, the signs off the case no need for surgical intervention Still has Garcia catheter , continue with Flomax
[2017-10-17 11:55] LABS: Glucose,Whole Blood 260 mg/dL (75-99)
[2017-10-17] MEDS: LACTATED RINGERS 1,000 ML IV SCH (13:00)
[2017-10-17 16:10] LABS: Glucose,Whole Blood 214 mg/dL (75-99)
[2017-10-17 17:10] LABS: Glucose,Whole Blood 215 mg/dL (75-99)
[2017-10-17] MEDS: ONDANSETRON 4 MG/2 ML VIAL IVP PRN (18:15)
[2017-10-17 21:07] LABS: Glucose,Whole Blood 169 mg/dL (75-99)
[2017-10-17] MEDS: MELATONIN 3 MG TABLET PO SCH (21:30)
[2017-10-18] MEDS: hydrALAZINE HCL 20 MG/ML 1 ML VIAL IVP SCH ×3 (00:29→18:02)
[2017-10-18] MEDS: SODIUM CHLORIDE 0.9% 1,000 ML IV SCH ×2 (04:43→18:03)
[2017-10-18 07:15] LABS: Glucose,Whole Blood 172 mg/dL (75-99)
[2017-10-18] MEDS: TAMSULOSIN 0.4 MG CAP.ER.24H PO SCH (08:36)
[2017-10-18] MEDS: PANTOPRAZOLE 40 MG/10 ML VIAL IVP SCH ×2 (08:36→20:34)
[2017-10-18] MEDS: INSULIN ASPART 100 UNIT/ML 1 ML 10 ML VIAL SQ SCH ×4 (08:36→21:05)
[2017-10-18] MEDS: LACTATED RINGERS 1,000 ML IV SCH (08:37)
--- NOTE | 2017-10-18 11:04 | PN ---
PROGRESS NOTE DATE OF SERVICE: 10/18/2017. HISTORY: The patient is a 52-year-old pleasant white male admitted to hospital with epigastric pain, nausea, and vomiting that is gradually improving. He is status post EGD 2 days ago and was noted to have some esophagitis and gastritis. He is on Protonix 40 mg twice daily. Tolerating diet. Has some nausea and epigastric discomfort. He is complaining of pain in the suprapubic area and is not able to pass urine since the catheter has been removed. PHYSICAL EXAMINATION: Appears comfortable no apparent distress. VITAL SIGNS: Stable. Blood pressure is 153/79, pulse 88, temperature 98.6. HEENT examination unremarkable. Conjunctivae pink. Sclerae anicteric. Oral cavity no lesions. NECK: No JVD or lymph node enlargement. LUNGS: anicteric. Oral cavity no lesions. CHEST: Clear to auscultation. HEART: Regular rate and rhythm rate and rhythm. ABDOMEN: Soft. Bowel sounds are positive. No organomegaly. EXTREMITIES: No pedal edema. NEUROLOGIC: Alert and oriented x3. No focal deficits. LABS: No labs from today. IMPRESSION: 1. Gastroesophageal reflux disease, on Protonix 40 mg b.i.d. 2. Epigastric pain/nausea and vomiting, status post esophagogastroduodenoscopy 2 days ago with findings of gastritis and esophagitis. RECOMMENDATIONS: Continue with Protonix, small frequent meals, and anti-reflux measures. We will sign off for now. He was advised to follow up in the office in 2 to 3 weeks following discharge from the hospital. MMODL / IJN: [id number] /
[2017-10-18 12:31] LABS: Glucose,Whole Blood 244 mg/dL (75-99)
[2017-10-18 13:44] LABS: Basophils % (A) 0 %; Eosinophils # (A) 0.1 k/uL (0-0.7); Eosinophils % (A) 1 %; HCT 28.7 % (39.0-53.0); HGB 9.5 gm/dL (13.0-17.5); Lymphocytes # (A) 1.1 k/uL (1.0-4.8); Lymphocytes % (A) 17 %; MCH 28.1 pg (25.0-35.0); MCHC 33.2 g/dL (31.0-37.0); MCV 84.6 fL (80.0-100.0); Mean Platelet Volume 7.4; Monocytes # (A) 0.5 k/uL (0-1.0); Monocytes % (A) 7 %; Neutrophils # (A) 4.8 k/uL (1.3-7.7); Neutrophils % (A) 73 %; Platelet Count 149 k/uL (150-450); RBC 3.39 m/uL (4.30-5.90); WBC 6.6 k/uL (3.8-10.6)
--- NOTE | 2017-10-18 13:52 | P.PN ---
Subjective Patient is seen and examined by me at bedside Patient still complaining from epigastric abdominal pain although says little better, no nausea vomiting Patient is a s/p EGD on 10/16/2017 Patient is not tolerating regular diet. No chest pain no dyspnea Still has Garcia catheter in place, patient started on Flomax Objective - Vital Signs Vital signs: Vital Signs Temp 99.2 F 10/18/17 06:07 Pulse 87 10/18/17 06:07 Resp 16 10/18/17 06:07 BP 134/72 10/18/17 06:07 Pulse Ox 97 10/18/17 06:07 Intake & Output 10/17/17 10/18/17 10/18/17 18:59 06:59 18:59 Intake Total 1120 200 Output Total 1200 1500 Balance -80 -1500 200 Weight 79.379 kg Intake: Intake, IV Titration 800 Amount Sodium Chloride 0.9% 1, 800 000 ml @ 100 mls/hr IV . Q10H JAD Rx#:[id number] Oral 320 200 Output: Urine 1500 Post Void Residual 1200 Other: Voiding Method Indwelling Catheter # Voids 0 # Bowel Movements 0 - Exam Constitutional: No acute distress, conversant, pleasant Eyes: Anicteric sclerae, moist conjunctiva, no lid-lag PERRLA ENMT: NC/AT Oropharynx clear, no erythema, exudates Neck: Supple, FROM, no masses, or JVD No carotid bruits No thyromegaly Lungs: Clear to auscultation Clear to percussion Normal respiratory effort, no accessory muscle use Cardiovascular: Heart regular in rate and rhythm, No murmurs, gallops, or rubs No peripheral edema Abdominal: Soft Epigastric tenderness, no guarding, rebound or rigidity Abdomen moving with respiration Normoactive bowel sounds No hepatomegaly, No splenomegaly No palpable mass No abdominal wall hernia noted Skin: Normal temperature, tone, texture, turgor No induration No subcutaneous nodules No rash, lesions No ulcers Extremities: No digital cyanosis No clubbing Pedal pulses intact and symmetrical Radial pulses intact and symmetrical Normal gait and station No calf tenderness Psychiatric: Alert and oriented to person, place and time Appropriate affect Intact judgement Neuro: Muscles Strength 5/5 in all 4 extremities Sensation to light touch grossly present throughout Cranial nerves II-XII grossly intact No focal sensory deficits - Labs CBC & Chem 7: 10/15/17 07:18 10/15/17 07:18 Labs: Abnormal Lab Results - Last 24 Hours (Table) 10/17/17 10/17/17 10/17/17 Range/Units 16:07 16:56 21:02 POC Glucose (mg/dL) 214 H 215 H 169 H (75-99) mg/dL 10/18/17 10/18/17 Range/Units 07:00 12:24 POC Glucose (mg/dL) 172 H 244 H (75-99) mg/dL Microbiology - Last 24 Hours (Table) 10/13/17 20:00 Blood Culture - Preliminary Blood No Growth after 96 hours Assessment and Plan Assessment: -Epigastric pain, gastritis with reflux esophagitis -Hyperlipidemia -DM -Hypertension -h/o CAD Plan Patient is still with abdominal pain, no nausea vomiting, EGD: Gastritis, no peptic ulcer disease 2 superficial erosions of the esophagus with reflux esophagitis, continue with PPI and small frequent meals as per GI recommendations Surgical consultation is noted and appreciated, the signs off the case no need for surgical intervention Still has Garcia catheter , continue with Flomax Plan: Patient presents with epigastric abdominal , improving, CTA unremarkable, continue with pain management, fluids, and call GI and surgery consult consult are appreciated, patient was found to have gastritis and esophagitis. Surgery team signed off. GI team are okay to discharge the patient when he is ready and follow-up in the clinic and to 3 weeks We and advancing the diet slowly Patient has an enlarged prostate with a large urinary bladder, patient failed pain without the catheter so Garcia catheter is placed back again, and follow- up with urology as an outpatient patient agrees to this plan after discussion including the Garcia catheter
[2017-10-18 13:55] LABS: Anion Gap 11 mmol/L; Blood Urea Nitrogen 16 mg/dL (9-20); Calcium 8.4 mg/dL (8.4-10.2); Carbon Dioxide 24 mmol/L (22-30); Chloride 105 mmol/L (98-107); Glucose 295 mg/dL (74-99); Sodium 140 mmol/L (137-145)
[2017-10-18 17:40] LABS: Glucose,Whole Blood 256 mg/dL (75-99)
[2017-10-18] MEDS: ONDANSETRON 4 MG/2 ML VIAL IVP PRN (18:08)
[2017-10-18] MEDS: MELATONIN 3 MG TABLET PO SCH (20:34)
[2017-10-18 21:02] LABS: Glucose,Whole Blood 231 mg/dL (75-99)
[2017-10-19] MEDS: hydrALAZINE HCL 20 MG/ML 1 ML VIAL IVP SCH ×2 (00:31→08:28)
[2017-10-19] MEDS: SODIUM CHLORIDE 0.9% 1,000 ML IV SCH ×2 (01:29→11:45)
[2017-10-19 07:28] LABS: Glucose,Whole Blood 194 mg/dL (75-99)
[2017-10-19] MEDS ORDERED: MORPHINE ORAL SOLN 10 MG/5 ML CUP PO PRN (08:05)
[2017-10-19] MEDS: INSULIN ASPART 100 UNIT/ML 1 ML 10 ML VIAL SQ SCH ×4 (08:27→21:25)
[2017-10-19] MEDS: TAMSULOSIN 0.4 MG CAP.ER.24H PO SCH (08:28)
[2017-10-19] MEDS: PANTOPRAZOLE 40 MG/10 ML VIAL IVP SCH (08:28)
[2017-10-19] MEDS: LACTATED RINGERS 1,000 ML IV SCH (08:40)
[2017-10-19 10:11] LABS: Basophils % (A) 0 %; Eosinophils # (A) 0.1 k/uL (0-0.7); Eosinophils % (A) 1 %; HCT 27.6 % (39.0-53.0); HGB 9.5 gm/dL (13.0-17.5); Lymphocytes # (A) 0.9 k/uL (1.0-4.8); Lymphocytes % (A) 14 %; MCH 28.8 pg (25.0-35.0); MCHC 34.6 g/dL (31.0-37.0); MCV 83.3 fL (80.0-100.0); Mean Platelet Volume 6.8; Monocytes # (A) 0.4 k/uL (0-1.0); Monocytes % (A) 6 %; Neutrophils % (A) 78 %; Platelet Count 172 k/uL (150-450); RBC 3.31 m/uL (4.30-5.90); RDW 13.1 % (11.5-15.5); WBC 6.5 k/uL (3.8-10.6)
[2017-10-19 11:51] LABS: Glucose,Whole Blood 208 mg/dL (75-99)
[2017-10-19] MEDS ORDERED: ONDANSETRON 4 MG TAB PO PRN (13:50)
[2017-10-19] MEDS: cloNIDine HCL 0.2 MG TAB PO SCH ×2 (15:05→21:24)
[2017-10-19 18:01] LABS: Glucose,Whole Blood 345 mg/dL (75-99)
[2017-10-19 20:29] LABS: Glucose,Whole Blood 332 mg/dL (75-99)
[2017-10-19] MEDS ORDERED: ATORVASTATIN 40 MG TAB PO SCH (21:00)
[2017-10-19] MEDS ORDERED: amLODIPine 5 MG TAB PO SCH (21:00)
[2017-10-19] MEDS ORDERED: GABAPENTIN 300 MG CAP PO SCH (21:00)
[2017-10-19] MEDS ORDERED: LURASIDONE 40 MG TAB PO SCH (21:00)
[2017-10-19] MEDS: metFORMIN 500 MG TAB PO SCH (21:24)
[2017-10-19] MEDS: LISINOPRIL 20 MG TAB PO SCH (21:24)
[2017-10-19] MEDS: DOCUSATE 100 MG CAP PO SCH (21:24)
[2017-10-19] MEDS: MELATONIN 3 MG TABLET PO SCH (21:25)
--- NOTE | 2017-10-19 22:48 | P.PN ---
Subjective Patient is seen and examined by me at bedside Patient still complaining from epigastric abdominal pain although says little better, no nausea vomiting Patient is a s/p EGD on 10/16/2017 Patient is not tolerating regular diet. No chest pain no dyspnea tolerated diet well Bustos catheter was removed , patient started on Flomax he was able to urinate yesterday and this am , later on during the evening pt got urinary retention , pt refused bustos catheter and wanted straight cath, if by tomorrow is not resolved he will rethink the bustos Objective - Vital Signs Vital signs: Vital Signs Temp 97.0 F L 10/19/17 15:00 Pulse 99 10/19/17 15:00 Resp 17 10/19/17 15:00 BP 162/87 10/19/17 15:00 Pulse Ox 97 10/19/17 15:00 Intake & Output 10/19/17 10/19/17 10/20/17 06:59 18:59 06:59 Intake Total 350 Output Total 950 2250 Balance -600 -2250 Weight 79.379 kg 79.379 kg Intake: Oral 350 Output: Urine 950 1850 Uretheral (Bustos) 750 Post Void Residual 400 Other: Voiding Method Urinal - Exam Constitutional: No acute distress, conversant, pleasant Eyes: Anicteric sclerae, moist conjunctiva, no lid-lag PERRLA ENMT: NC/AT Oropharynx clear, no erythema, exudates Neck: Supple, FROM, no masses, or JVD No carotid bruits No thyromegaly Lungs: Clear to auscultation Clear to percussion Normal respiratory effort, no accessory muscle use Cardiovascular: Heart regular in rate and rhythm, No murmurs, gallops, or rubs No peripheral edema Abdominal: Soft mild Epigastric tenderness, no guarding, rebound or rigidity Abdomen moving with respiration Normoactive bowel sounds No hepatomegaly, No splenomegaly No palpable mass No abdominal wall hernia noted Skin: Normal temperature, tone, texture, turgor No induration No subcutaneous nodules No rash, lesions No ulcers Extremities: No digital cyanosis No clubbing Pedal pulses intact and symmetrical Radial pulses intact and symmetrical Normal gait and station No calf tenderness Psychiatric: Alert and oriented to person, place and time Appropriate affect Intact judgement Neuro: Muscles Strength 5/5 in all 4 extremities Sensation to light touch grossly present throughout Cranial nerves II-XII grossly intact No focal sensory deficits - Labs CBC & Chem 7: 10/19/17 09:58 10/18/17 13:27 Labs: Abnormal Lab Results - Last 24 Hours (Table) 10/19/17 10/19/17 10/19/17 Range/Units 07:22 09:58 11:41 RBC 3.31 L (4.30-5.90) m/uL Hgb 9.5 L (13.0-17.5) gm/dL Hct 27.6 L (39.0-53.0) % Lymphocytes # 0.9 L (1.0-4.8) k/uL POC Glucose (mg/dL) 194 H 208 H (75-99) mg/dL 10/19/17 10/19/17 Range/Units 17:47 20:27 RBC (4.30-5.90) m/uL Hgb (13.0-17.5) gm/dL Hct (39.0-53.0) % Lymphocytes # (1.0-4.8) k/uL POC Glucose (mg/dL) 345 H 332 H (75-99) mg/dL Microbiology - Last 24 Hours (Table) 10/13/17 20:00 Blood Culture - Final Blood No Growth after 144 hours Assessment and Plan Assessment: -Epigastric pain, gastritis with reflux esophagitis -urinary retention -Hyperlipidemia -DM -Hypertension -h/o CAD Plan Patient is still with abdominal pain, no nausea vomiting, EGD: Gastritis, no peptic ulcer disease 2 superficial erosions of the esophagus with reflux esophagitis, continue with PPI and small frequent meals as per GI recommendations Surgical consultation is noted and appreciated, the signs off the case no need for surgical intervention while off Bustos catheter he could not urinate, pt is placed on bladder scan and straight cath prn , continue with Flomax Plan: Patient presents with epigastric abdominal , improving, CTA unremarkable, continue with pain management, fluids, and call GI and surgery consult consult are appreciated, patient was found to have gastritis and esophagitis. Surgery team signed off. GI team are okay to discharge the patient when he is ready and follow-up in the clinic and to 3 weeks We and advancing the diet slowly Patient has an enlarged prostate with a large urinary bladder, patient failed pain without the catheter so Bustos catheter is placed back again, and follow- up with urology as an outpatient patient agrees to this plan after discussion including the Bustos catheter
[2017-10-20] MEDS ORDERED: PANTOPRAZOLE 40 MG TABLET PO SCH (07:30)
[2017-10-20] MEDS ORDERED: GLIMEPIRIDE 1 MG TAB PO SCH (07:30)
[2017-10-20 07:32] LABS: Glucose,Whole Blood 182 mg/dL (75-99)
[2017-10-20] MEDS: INSULIN ASPART 100 UNIT/ML 1 ML 10 ML VIAL SQ SCH ×3 (08:11→17:20)
[2017-10-20] MEDS: TAMSULOSIN 0.4 MG CAP.ER.24H PO SCH (08:12)
[2017-10-20] MEDS: cloNIDine HCL 0.2 MG TAB PO SCH ×2 (08:12→16:24)
[2017-10-20] MEDS: metFORMIN 500 MG TAB PO SCH (08:13)
[2017-10-20] MEDS: DOCUSATE 100 MG CAP PO SCH (08:13)
[2017-10-20] MEDS: LISINOPRIL 20 MG TAB PO SCH (08:13)
[2017-10-20] MEDS ORDERED: ASPIRIN 325 MG TAB PO SCH (09:00)
[2017-10-20] MEDS ORDERED: LINAGLIPTIN 5 MG TABLET PO SCH (09:00)
[2017-10-20] MEDS ORDERED: CITALOPRAM HYDROBROMIDE 20 MG TAB PO SCH (09:00)
[2017-10-20 12:25] LABS: Glucose,Whole Blood 287 mg/dL (75-99)
[2017-10-20 14:41] VITALS: BP 118/59; PULSE 83; RESP 28; TEMP 97.3
--- NOTE | 2017-10-20 15:23 | P.DS ---
Providers Date of admission: 10/14/17 00:47 Attending physician: Shakeel Miramontes Consults: 10/14/17 12:00 Consult Physician Urgent Consulting Provider: Deniz Keane Consult Reason/Comments: ONGOING NAUSEA, VOMITING, EPIGASTRIC PAIN Do you want consulting provider notified?: Yes 10/14/17 12:01 Consult Physician Urgent Consulting Provider: Steven Baca Consult Reason/Comments: ABDOMINAL PAIN, NAUSEA, VOMITING Do you want consulting provider notified?: Yes Primary care physician: Tyler Rosenberg [facility] Course: This is a pleasant 52 years old male with past medical history of CVA/TIA with mild residual weakness, DM, hyperlipidemia, hypertension, CAD, renal disease, he was here about 2 weeks ago for lower chest pain radiating to the back with nausea vomiting, he underwent cardiac workup which was negative, he presents this time with epigastric abdominal pain radiating to the back about 10 over 10 in severity, associated with nausea vomiting edges, patient has been evaluated by GI team, he underwent EGD which showed gastritis and 2 superficial erosions at the gastroesophageal junction consistent with reflux esophagitis, pt is informed and he was started on Protonix 40 mg daily, diet has been advanced patient tolerated well he has dull some epigastric pain but is improving, his nausea vomiting are improving too Pathology report from this EGD results are as below, patient is informed, pt symptoms resolved to a great deal, no more n/v and pt tolerating regular diet with minimal abd pain His lactic acid on admission was 3.51 down to 1.1 and leukocytosis of 13 K went down to normal at 10.5 K Patient also complained from urinary to tension, associated with a large prostate, Bustos catheter has been placed , urology appointment was tried and the urology office will call the pt later on for an appointment , pt is informed and he agrees to follow up with urology clinic as an outpatient, risks , benefits and alternative are explained for the pt and he verbalized understanding and acceptance his norvasc is decreased from 5 mg bid to 5 mg daily and pt agree Patient looks his stable and can be discharged home however he needs follow up as an outpatient Constitutional: No acute distress, conversant, pleasant Eyes: Anicteric sclerae, moist conjunctiva, no lid-lag PERRLA ENMT: NC/AT Oropharynx clear, no erythema, exudates Neck: Supple, FROM, no masses, or JVD No carotid bruits No thyromegaly Lungs: Clear to auscultation Clear to percussion Normal respiratory effort, no accessory muscle use Cardiovascular: Heart regular in rate and rhythm, No murmurs, gallops, or rubs No peripheral edema Abdominal: Soft no more Epigastric tenderness, no guarding, rebound or rigidity Abdomen moving with respiration Normoactive bowel sounds No hepatomegaly, No splenomegaly No palpable mass No abdominal wall hernia noted bustos catheter is in place Skin: Normal temperature, tone, texture, turgor No induration No subcutaneous nodules No rash, lesions No ulcers Extremities: No digital cyanosis No clubbing Pedal pulses intact and symmetrical Radial pulses intact and symmetrical Normal gait and station No calf tenderness Psychiatric: Alert and oriented to person, place and time Appropriate affect Intact judgement Neuro: Muscles Strength 5/5 in all 4 extremities Sensation to light touch grossly present throughout Cranial nerves II-XII grossly intact No focal sensory deficits Pertinent Studies: Final Pathologic Diagnosis A. DUODENUM, BIOPSIES: BENIGN ENTERIC MUCOSA WITH INTACT VILLOUS ARCHITECTURE. B. GASTRIC ANTRUM, BIOPSIES: BENIGN GASTRIC MUCOSA. HELICOBACTER ORGANISMS ARE NOT IDENTIFIED ON ROUTINE H+E STAINED SECTIONS. C. ESOPHAGUS, BIOPSIES: BENIGN SQUAMOUS ESOPHAGEAL MUCOSA. Patient Condition at Discharge: Good Plan - Discharge Summary Discharge Rx Participant: Yes New Discharge Prescriptions: New Pantoprazole [Protonix] 40 mg PO AC-BRKFST #30 tablet. Tamsulosin [Flomax] 0.4 mg PO PC-BRKFST #30 cap.er.24h amLODIPine [Norvasc] 5 mg PO DAILY #30 tab Ondansetron HCl [Zofran] 8 mg PO DAILY #4 tablet Continue sitaGLIPtin [Januvia] 100 mg PO QAM Aspirin 325 mg PO DAILY Lurasidone HCl [Latuda] 20 mg PO HS Glimepiride [Amaryl] 1 mg PO DAILY Gabapentin 600 mg PO HS Citalopram Hydrobromide [CeleXA] 40 mg PO QAM Atorvastatin [Lipitor] 40 mg PO HS metFORMIN HCL 1,000 mg PO BID Docusate Sodium [Dok] 100 mg PO BID cloNIDine HCL [Catapres] 0.2 mg PO TID Lisinopril [Zestril] 20 mg PO BID Changed amLODIPine [Norvasc] 5 mg PO DAILY #30 Discharge Medication List Aspirin 325 mg PO DAILY 09/12/17 [History] Atorvastatin [Lipitor] 40 mg PO HS 09/12/17 [History] Citalopram Hydrobromide [CeleXA] 40 mg PO QAM 09/12/17 [History] Docusate Sodium [Dok] 100 mg PO BID 09/12/17 [History] Gabapentin 600 mg PO HS 09/12/17 [History] Glimepiride [Amaryl] 1 mg PO DAILY 09/12/17 [History] Lisinopril [Zestril] 20 mg PO BID 09/12/17 [History] Lurasidone HCl [Latuda] 20 mg PO HS 09/12/17 [History] cloNIDine HCL [Catapres] 0.2 mg PO TID 09/12/17 [History] metFORMIN HCL 1,000 mg PO BID 09/12/17 [History] sitaGLIPtin [Januvia] 100 mg PO QAM 09/12/17 [History] Ondansetron HCl [Zofran] 8 mg PO DAILY #4 tablet 10/20/17 [Rx] Pantoprazole [Protonix] 40 mg PO AC-BRKFST #30 tablet.dr 10/20/17 [Rx] Tamsulosin [Flomax] 0.4 mg PO PC-BRKFST #30 cap.er.24h 10/20/17 [Rx] amLODIPine [Norvasc] 5 mg PO DAILY #30 10/20/17 [Rx] amLODIPine [Norvasc] 5 mg PO DAILY #30 tab 10/20/17 [Rx] Follow up Appointment(s)/Referral(s): Lamar Scott MD [Primary Care Provider] - 1-2 days Elio Fink MD [STAFF PHYSICIAN] - 1 Week (office will call you with appointment time and date -urologist office for your urinary retention and bustos catheter management-) Sonja Gracia MD [STAFF PHYSICIAN] - 10/28/17 4:45 pm Patient Instructions/Handouts: Type 2 Diabetes in Adults (DC), Acute Abdominal Pain (DC) Activity/Diet/Wound Care/Special Instructions: activity as tolerated regular diet as tolerated referred to urologist after discharge indwelling bustos Discharge Disposition: HOME SELF-CARE
[2017-10-20 17:20] LABS: Glucose,Whole Blood 87 mg/dL (75-99)
--- NOTE | 2017-10-22 12:28 | CDI ---
Last Revision, May 2017 Documentation Clarification Form Date: 10/22/17 From: Saundra Ponce Phone: If you have a question regarding this query, please contact Crys Montesinos at [phone] between 8am and 5pm Admit Date: 10/14/2017 12:47:00 AM Patient Name: Kashmir Tinajero Visit Number: [id number] Discharge Date: 10/20/17 ATTENTION: The Clinical Documentation Specialists (CDI) and [facility] Coding Staff appreciate your assistance in clarifying documentation. Please respond to the clarification below the line at the bottom and electronically sign. The CDI & [facility] Coding staff will review the response and follow-up if needed. Please note: Queries are made part of the Legal Health Record. If you have any questions, please contact the author of this message via ITS. Dr. Hernandes E Yoni Gastritis is documented in the discharge summary, and in your and Dr. Garcia's through 10/19 progress notes. Patient history/risk factors: Patient was admitted due to abdominal pain. The patient also has a history of diverticulosis, BPH with urinary retention, hypertension and CAD. Clinical Indicators: Abdominal pain EGD findings: Mild antral gastritis, 2 superficial erosions at the GE junction consistent with LA grad A reflux esophagitis. Biopsy findings: Gastric antrum biopsy: benign gastric mucosa. Esophagus biopsy: benign squamous esophageal mucosa. Treatment: IV and PO protonix In your professional opinion, can you please clarify the acuity of the gastritis ? Acute Chronic Other, please specify Unable to determine acute MTDD
--- NOTE | 2017-10-22 12:42 | CDI ---
Last Revision, May 2017 Documentation Clarification Form Date: 10/22/17 From: Saundra Ponce Phone: If you have a question regarding this query, please contact Crys Montesinos at [phone] between 8am and 5pm Admit Date: 10/14/2017 12:47:00 AM Patient Name: Kashmir Tinajero Visit Number: [id number] Discharge Date: 10/20/17 ATTENTION: The Clinical Documentation Specialists (CDI) and [facility] Coding Staff appreciate your assistance in clarifying documentation. Please respond to the clarification below the line at the bottom and electronically sign. The CDI & [facility] Coding staff will review the response and follow-up if needed. Please note: Queries are made part of the Legal Health Record. If you have any questions, please contact the author of this message via ITS. Dr. Hernandes E Sheet A diagnosis of anemia lacks specificity to accurately reflect your patients severity of condition and clarification is needed. History/Risk Factors: Patient presented with abdominal pain and has a history of diverticulosis, hypertension, CAD and chronic kidney disease. Clinical indicators: Drop in hemoglobin and hematocrit. Dr. Garcia documented possible acute blood loss anemia without overt GI bleeding such as hematemesis, hematochezia or melena. Hemoglobin: 13.3 on admission and down to 9.5 on discharge Hematocrit: 39.1 on admission and down to 27.6 on discharge In order to capture the severity of condition, please clarify the type of anemia and etiology if known: Acute blood loss anemia Acute on chronic blood loss anemia Chronic blood loss anemia Iron deficiency anemia Anemia of chronic kidney disease Unable to determine Other, please specify Unable to determine, possible chronic anemia with hemodilution MTDD
== END 2017-10-20 19:49 | disposition home or self-care (01) | DRG 392 ==
LOC: EC 18:53 → 4MS4W 10-14 00:47
PROVIDERS: ADMIT Hospitalist; ATTEND Hospitalist
DX: K29.00 Acute gastritis without bleeding (principal); E87.2 Acidosis; K21.0 Gastro-esophageal reflux disease with esophagitis; K44.9 Diaphragmatic hernia without obstruction or gangrene; D72.829 Elevated white blood cell count, unspecified; D64.9 Anemia, unspecified; E11.22 Type 2 diabetes mellitus with diabetic chronic kidney disease; E11.40 Type 2 diabetes mellitus with diabetic neuropathy, unspecified; E78.5 Hyperlipidemia, unspecified; E86.0 Dehydration; F32.9 Major depressive disorder, single episode, unspecified; F41.9 Anxiety disorder, unspecified; H54.8 Legal blindness, as defined in USA; I25.10 Atherosclerotic heart disease of native coronary artery without angina pectoris; I25.2 Old myocardial infarction; K57.30 Diverticulosis of large intestine without perforation or abscess without bleeding; M06.9 Rheumatoid arthritis, unspecified; N40.1 Benign prostatic hyperplasia with lower urinary tract symptoms; R33.8 Other retention of urine; I12.9 Hypertensive chronic kidney disease with stage 1 through stage 4 chronic kidney disease, or unspecified chronic kidney disease; N18.2 Chronic kidney disease, stage 2 (mild); G43.909 Migraine, unspecified, not intractable, without status migrainosus; Z79.84 Long term (current) use of oral hypoglycemic drugs; Z79.899 Other long term (current) drug therapy; Z79.82 Long term (current) use of aspirin; Z91.041 Radiographic dye allergy status; I69.998 Other sequelae following unspecified cerebrovascular disease; Z83.3 Family history of diabetes mellitus; Z82.49 Family history of ischemic heart disease and other diseases of the circulatory system; Z82.3 Family history of stroke
CPT/HCPCS: 36415; 43239; 74018; 74176; 76705; 80048; 80053; 81001; 82150; 82550; 82553; 83036; 83605; 83690; 84484; 85025; 85610; 85730; 87040; 88305; 93005; 96361; 96374; 96375; 96376; 99285

== ENCOUNTER 2017-11-11 07:53 | Day surgery (SDC) | payer OTHER ==
[2017-11-05 15:24] VITALS: BMI 27.3
[~2017-11-11 07:53] MED LIST: ALPRAZolam 0.25 MG TAB PO PRN; ASPIRIN 325 MG TAB PO ONE; SODIUM CHLORIDE 0.9% 1,000 ML in EMPTY BAG 1 BAG IV ONE
[2017-11-11 08:42] LABS: Glucose,Whole Blood 171 mg/dL (75-99)
[2017-11-11] MEDS ORDERED: LISINOPRIL 20 MG TAB PO ONE (10:01)
[2017-11-11] MEDS ORDERED: diphenhydrAMINE 50 MG/ML 1 ML VIAL IVP PRN (10:16)
[2017-11-11] MEDS ORDERED: methylPREDNISolone SOD SUCCI 125 MG/2 ML VIAL IV STA (10:16)
[2017-11-11] MEDS ORDERED: LIDOCAINE 2% INJ 20 MG/ML (20 ML MDV) ONE ×3 (12:28→14:56)
[2017-11-11] MEDS ORDERED: fentaNYL (PF) 50 MCG/ML 2 ML AMP ONE (12:28)
[2017-11-11] MEDS ORDERED: MIDAZOLAM 2 MG/2 ML VIAL ONE ×2 (12:28→14:59)
[2017-11-11] MEDS ORDERED: MIDAZOLAM 2 MG/2 ML VIAL IVP ONE ×2 (12:38→16:05)
[2017-11-11] MEDS ORDERED: fentaNYL (PF) 50 MCG/ML 2 ML AMP IVP ONE (12:38)
[2017-11-11] MEDS ORDERED: LABETALOL 5 MG/ML VIAL MDV IVP ONE (12:40)
[2017-11-11] MEDS ORDERED: LIDOCAINE 2% INJ 20 MG/ML SQ ONE (12:45)
[2017-11-11] MEDS ORDERED: NITROGLYCERIN SL TABS 0.4 MG TAB SUBLINGUAL ONE (12:46)
[2017-11-11] MEDS ORDERED: cloNIDine HCL 0.2 MG TAB PO STA (12:48)
[2017-11-11] MEDS: NITROGLYCERIN 1000MCG/10ML SYRINGE INTRACORON ONE ×4 (12:53→16:50)
[2017-11-11] MEDS ORDERED: IOPAMIDOL-370 125ML BTL INJ ONE (13:16)
[2017-11-11] MEDS ORDERED: IOPAMIDOL-370 50ML BTL INJ ONE (13:19)
[2017-11-11] MEDS ORDERED: diphenhydrAMINE 50 MG/ML 1 ML VIAL ONE (14:59)
[2017-11-11] MEDS ORDERED: diphenhydrAMINE 50 MG/ML 1 ML VIAL IVP ONE (16:05)
[2017-11-11] MEDS ORDERED: BIVALIRUDIN BOLUS 250 MG/50 ML IV ONE (16:18)
[2017-11-11] MEDS ORDERED: BIVALIRUDIN 250 MG in SODIUM CHLORIDE 0.9% 50 ML IV ONE (16:20)
[2017-11-11] MEDS ORDERED: IOPAMIDOL-370 100ML BTL INJ ONE ×2 (16:54)
[2017-11-11] MEDS ORDERED: MORPHINE SULF 5MG/10ML VL ONE (16:56)
[2017-11-11] MEDS ORDERED: CLOPIDOGREL 75 MG TAB ONE (16:57)
[2017-11-11] MEDS ORDERED: MORPHINE SULF 5MG/10ML VL IVP ONE (17:00)
[2017-11-11] MEDS ORDERED: CLOPIDOGREL 75 MG TAB PO ONE (17:01)
[2017-11-11] MEDS ORDERED: ZOLPIDEM 5 MG TAB PO PRN (17:29)
[2017-11-11] MEDS ORDERED: NITROGLYCERIN SL TABS 0.4 MG TAB SUBLINGUAL PRN (17:29)
[2017-11-11] MEDS ORDERED: RX INFO: IV CONTRAST WAS GIVEN 1 EACH MISC MISCELLANE PRN (17:29)
[2017-11-11] MEDS ORDERED: ATROPINE SULFATE 0.1 MG/ML 10ML SYRINGE IV PRN (17:29)
[2017-11-11] MEDS ORDERED: MAG HYDROX/AL HYDROX/SIMETH 30 ML CUP PO PRN (17:29)
[2017-11-11] MEDS ORDERED: ONDANSETRON 4 MG TAB PO PRN (17:33)
--- NOTE | 2017-11-11 18:37 | CC ---
CARDIAC CATHETERIZATION REPORT DATE OF SERVICE: 11/11/2017. HISTORY: Mr. Tinajero is a 52-year-old gentleman who has a history of stroke, hypertension, and diabetes. The patient underwent a stress test, which was suggestive of prior inferior wall myocardial infarction and there is inferolateral ischemia. In view of that, the patient was recommended to have a cardiac catheterization for definitive diagnosis. PROCEDURE: The right groin was prepped and draped in the usual manner and the skin was infiltrated with 2% Xylocaine. The right femoral artery was entered using Seldinger technique. A #6- Mauritian sheath was placed in. Selective coronary angiography was then performed in multiple projections. Left ventriculography was performed in 30 degree HAYWARD projection. Patient tolerated the procedure well. Sheath was sutured in. We will review the films with Dr. Darcie Avendaño and consider stent placement. HEMODYNAMICS: Left ventricular end-diastolic pressure is 28 to 30 mmHg prior to angiography. No gradient is noted across the aortic valve. SELECTIVE CORONARY ANGIOGRAPHY: LEFT MAIN: Left main coronary artery is normally patent. LAD: LAD is a good caliber blood vessel, and the mid LAD has a 90% stenosis. Distal LAD near the apex becomes a very small caliber blood vessel and there is another area of 70% to 80% stenosis. CIRCUMFLEX: The circumflex coronary artery is subtotally occluded in its midportion with slow filling of the PLV branch is noted after the nitroglycerin injection. RIGHT CORONARY : Right coronary artery is totally occluded in its proximal portion with a few antegrade collaterals noted, which appears to be chronic. Left ventriculography reveals inferobasal hypokinesia with normal left ventricular systolic function. FINAL IMPRESSION: This study reveals severe triple-vessel disease. We will review the films with Dr. Darcie Avendaño and consider stent to the obtuse marginal branch and mid LAD. MMODL / IJN: [id number] /
[2017-11-11] MEDS: SODIUM CHLORIDE 0.9% 1,000 ML IV SCH (19:08)
--- NOTE | 2017-11-11 19:52 | PTCA ---
PERCUTANEOUSTRANS CORORONARY ANGIOGRAPHY DATE OF PROCEDURE: 11/11/2017 PROCEDURE: Percutaneous transluminal coronary angioplasty and stenting of chronically diseased diffuse calcified dominant mid and proximal circumflex coronary artery with drug- eluting stents. PERFORMED BY: Dr. Chet Avendaño. Moderate conscious sedation time was 63 minutes. This patient was monitored very closely with his oxygen saturation, hemodynamics and EKG throughout the procedure. He received a combination of Versed and Benadryl. CLINICAL INFORMATION: Mr. Kashmir Tinajero is a 52-year-old gentleman with history of type 2 diabetes, hypertension, hyperlipidemia, who apparently had a stroke about 4-5 months ago. He has recovered from this well. He was seen and evaluated by Dr. Maciel Church and a stress test revealed an inferior wall fixed defect with moderate, partially reversible defect suggestive of significant miguel-infarct ischemia and he underwent cardiac cath performed by Dr. Jovanni Church earlier today which revealed total occlusion of RCA with collaterals from the left system. The circumflex appeared to be a codominant vessel and had a long diseased segment in the mid portion with a 99% stenosis. It appeared to be a subtotal occlusion with sluggish flow. He has significant disease in the LAD system as well in the mid portion. He was advised intervention. He already received about 85-90 mL of dye. I discussed the findings with the patient and also with his at length, explained to them the increased risk because of the chronicity of the lesion and calcification, and also the restenosis risk is high, given his comorbid conditions and the length of lesion. I will perform staged intervention and will only do circumflex today and consider LAD at a later date if this goes well. PROCEDURE NOTE: The existing 6-Nepalese introducer in the right femoral artery was used to perform the procedure. A standard left Anny guide catheter of 6-Nepalese caliber was used to cannulate the left coronary artery. A run-through wire was used to cross the lesion. Wire was kept distally. Predilatation was performed using a 2.25 caliber, 18 mm long NC Mozec balloon. Subsequently I deployed an 18 mm long, 2.5 caliber Xience stent in the proximal portion of the lesion. I then used a 12 mm long, 2.5 caliber Xience stent into the proximal portion of the PDA branch, which was a large branch. The proximal end of the stent was still in the main circumflex. Between the 2 stents I deployed another 18 mm long, 2.5 caliber Xience stent. Excellent angiographic result was achieved. Patient did not have chest pain or EKG changes. There was excellent angiographic appearance with remarkable improvement in angiographic appearance and flow. The sheath was taken out and I tried to use a Perclose device, but I had difficulty. I switched over to 8-Nepalese Angio-Seal to secure hemostasis. I applied manual pressure and then a FemoStop was applied. Patient was sent to the room in a stable condition with a good distal right lower extremity pulse. He will have the FemoStop for a total duration of 4 hours. He received 600 mg of Plavix, and also Angiomax bolus and infusion was given as per protocol. Excellent angiographic result without complication was achieved and findings were discussed with the patient's as well. I expect he will be discharged tomorrow if he remains stable. Risk factor modification issues were discussed at length with the patient and his . Prognosis remains guarded. Staged intervention of LAD will be performed in the next couple of weeks. MMODL / IJN: [id number] /
--- NOTE | 2017-11-11 19:58 | LTR ---
November 11, 2017 To: Dr. Lamar Scott Re: Kashmir Tinajero (69) Dear Dr. Scott, Thank you for the opportunity to participate in the care of Mr. Kashmir Tinajero. I am pleased to report to you that this gentleman had an excellent angiographic result. I was able to open up his chronically diseased circumflex with 3 drug-eluting stents with excellent angiographic result. I will perform staged intervention of the LAD at a later date. Prognosis in the long-term remains guarded, given his diabetes and multiple comorbid conditions. Thank you for your referral. Please do call with questions. The patient should be on dual antiplatelet therapy without interruption for at least one year. With kindest regards. Sincerely, Dr. Darcie JOHNSON / KARYN: [id number] /
[2017-11-11] MEDS ORDERED: ATORVASTATIN 80 MG TAB PO SCH (21:00)
[2017-11-11] MEDS ORDERED: GABAPENTIN 300 MG CAP PO SCH (21:00)
[2017-11-11] MEDS: DOCUSATE 100 MG CAP PO SCH (22:19)
[2017-11-11] MEDS: TAMSULOSIN 0.4 MG CAP.ER.24H PO SCH (22:19)
[2017-11-11] MEDS: PANTOPRAZOLE 40 MG TABLET PO SCH (22:19)
[2017-11-11] MEDS: cloNIDine HCL 0.2 MG TAB PO SCH (22:19)
[2017-11-11] MEDS: METOPROLOL TARTRATE 25 MG TAB PO SCH (22:19)
[2017-11-11 22:32] LABS: Glucose,Whole Blood 274 mg/dL (75-99)
[2017-11-12 05:52] LABS: Glucose,Whole Blood 330 mg/dL (75-99)
[2017-11-12 06:08] LABS: Basophils % (A) 0 %; Eosinophils % (A) 0 %; HCT 26.5 % (39.0-53.0); HGB 8.6 gm/dL (13.0-17.5); Lymphocytes # (A) 1.1 k/uL (1.0-4.8); Lymphocytes % (A) 8 %; MCH 28.5 pg (25.0-35.0); MCHC 32.7 g/dL (31.0-37.0); MCV 87.1 fL (80.0-100.0); Mean Platelet Volume 6.8; Monocytes # (A) 0.7 k/uL (0-1.0); Monocytes % (A) 5 %; Neutrophils # (A) 12.1 k/uL (1.3-7.7); Neutrophils % (A) 86 %; Platelet Count 201 k/uL (150-450); Poikilocytosis Slight; RBC 3.04 m/uL (4.30-5.90); RDW 14.4 % (11.5-15.5)
[2017-11-12 06:20] LABS: Calcium 8.6 mg/dL (8.4-10.2)
[2017-11-12] MEDS: PANTOPRAZOLE 40 MG TABLET PO SCH (07:06)
[2017-11-12] MEDS: SODIUM CHLORIDE 0.9% 1,000 ML IV SCH (07:06)
[2017-11-12] MEDS: INSULIN ASPART 100 UNIT/ML 1 ML 10 ML VIAL SQ SCH ×2 (07:07→12:20)
[2017-11-12] MEDS ORDERED: GLIMEPIRIDE 1 MG TAB PO SCH (07:30)
[2017-11-12] MEDS: cloNIDine HCL 0.2 MG TAB PO SCH (08:37)
[2017-11-12] MEDS: DOCUSATE 100 MG CAP PO SCH (08:37)
[2017-11-12] MEDS: TAMSULOSIN 0.4 MG CAP.ER.24H PO SCH (08:37)
[2017-11-12] MEDS: METOPROLOL TARTRATE 25 MG TAB PO SCH (08:38)
[2017-11-12] MEDS ORDERED: ASPIRIN 81 MG PO SCH (09:00)
[2017-11-12] MEDS ORDERED: LOSARTAN 50 MG TAB PO SCH (09:00)
[2017-11-12] MEDS ORDERED: CLOPIDOGREL 75 MG TAB PO SCH (09:00)
[2017-11-12] MEDS ORDERED: LINAGLIPTIN 5 MG TABLET PO SCH (09:00)
[2017-11-12] MEDS ORDERED: CITALOPRAM HYDROBROMIDE 20 MG TAB PO SCH (09:00)
[2017-11-12 12:01] LABS: Glucose,Whole Blood 240 mg/dL (75-99)
--- NOTE | 2017-11-12 14:47 | P.PN ---
Subjective Progress Note Date: 11/12/17 Discharge note This is a 52-year-old gentleman with history of prior CVA, hypertension, diabetes, he underwent a stress test which was suggestive of prior inferior wall myocardial infarction with inferior lateral ischemia in view of that the patient was recommended to undergo cardiac catheterization. Cardiac catheterization was performed yesterday and revealed severe triple vessel disease. Films were reviewed with Dr. LIGHT and patient underwent stenting of the circumflex artery. He was seen and examined this morning, had one mild episode of chest discomfort earlier this morning, worsened with deep breathing. He's been encouraged to be up ambulating in the hallway today. He will be discharged home later today to follow-up in the office in one week. Patient will be brought back to the hospital to undergo staged angioplasty of the LAD. Hemodynamically he is stable with a blood pressure of 116/60, heart rate in the 70s, 96% on room air. White blood cell count 14.0, hemoglobin 8.6, platelet count 201. Sodium 140, potassium 5.0, P1 28, and creatinine 1.3. Objective - Vital Signs Vital signs: Vital Signs Temp 98.8 F 11/12/17 04:10 Pulse 72 11/12/17 04:15 Resp 18 11/12/17 04:15 BP 117/63 11/12/17 04:10 Pulse Ox 96 11/12/17 04:10 Intake & Output 11/11/17 11/12/17 11/12/17 18:59 06:59 18:59 Intake Total 371 75 582 Output Total 420 400 Balance 371 -345 182 Weight 83.915 kg 84.2 kg 84.2 kg Intake: IV 371 Intake, IV Titration 75 Amount Sodium Chloride 0.9% 1, 75 000 ml @ 75 mls/hr IV . [id number] [facility] Rx#:[id number] Oral 582 Output: Urine 420 400 Other: Voiding Method Urinal # Voids 0 - Exam PHYSICAL EXAMINATION: HEENT: Head is atraumatic, normocephalic. Pupils equal, round. Neck is supple. There is no elevated jugular venous pressure. HEART EXAMINATION: Heart S1, S2 normal. PMI normal. CHEST EXAMINATION: Lungs are clear to auscultation and precussion. No chest wall tenderness is noted on palpation or with deep breathing.] ABDOMEN: [ Soft, nontender. Bowel sounds are heard. No organomegaly noted]. Right groin soft, no evidence of any hematoma. No bruit. EXTREMITIES:[ 2+ peripheral pulses with no evidence of peripheral edema and no calf tenderness noted]. NEUROLOGIC [patient is awake, alert and oriented -3.] . - Labs CBC & Chem 7: 11/12/17 05:17 11/12/17 05:17 Labs: Abnormal Lab Results - Last 24 Hours (Table) 11/11/17 11/12/17 11/12/17 Range/Units 22:30 05:17 05:17 WBC 14.0 H (3.8-10.6) k/uL RBC 3.04 L (4.30-5.90) m/uL Hgb 8.6 L (13.0-17.5) gm/dL Hct 26.5 L (39.0-53.0) % Neutrophils # 12.1 H (1.3-7.7) k/uL BUN 28 H (9-20) mg/dL Creatinine 1.30 H (0.66-1.25) mg/dL Glucose 264 H (74-99) mg/dL POC Glucose (mg/dL) 274 H (75-99) mg/dL 11/12/17 11/12/17 Range/Units 05:50 11:36 WBC (3.8-10.6) k/uL RBC (4.30-5.90) m/uL Hgb (13.0-17.5) gm/dL Hct (39.0-53.0) % Neutrophils # (1.3-7.7) k/uL BUN (9-20) mg/dL Creatinine (0.66-1.25) mg/dL Glucose (74-99) mg/dL POC Glucose (mg/dL) 330 H 240 H (75-99) mg/dL Assessment and Plan Plan: Assessment and plan #1 status post angioplasty and stenting of the circumflex artery. Patient also has a stenosis of the LAD for which he will return to have a staged angioplasty as an outpatient. #2 diabetes #3 hyperlipidemia #4 hypertension Plan Patient will be discharged home today, follow-up appointment in the office in one week. Outpatient staged angioplasty of the LAD. Discharge medications include aspirin 81 mg daily, Lipitor 80 mg daily, clonidine 0.2 mg twice a day, Plavix 75 mg daily, Neurontin 600 mg at at bedtime, Amaryl 1 mg at breakfast, tragenta 5 mg daily, losartan 50 mg daily, metoprolol tartrate 25 mg twice a day , Flomax 0.4 mg twice a day and sublingual nitroglycerin as needed for chest pain. Patient has been provided prescriptions for all of any medications.
[2017-11-12 14:54] VITALS: TEMP 98
[2017-11-12 15:16] VITALS: BP 132/70; PULSE 70; RESP 16
== END 2017-11-12 15:55 | disposition home or self-care (01) ==
LOC: CATHCVL 07:53 → 6SEL 16:55 → CATHCVL 11-12 15:55
PROVIDERS: ATTEND Internal Medicine Cardiovascular Disease
DX: I25.10 Atherosclerotic heart disease of native coronary artery without angina pectoris (principal); I25.82 Chronic total occlusion of coronary artery; I10 Essential (primary) hypertension; Z86.73 Personal history of transient ischemic attack (TIA), and cerebral infarction without residual deficits; E78.5 Hyperlipidemia, unspecified; E11.9 Type 2 diabetes mellitus without complications; Z79.84 Long term (current) use of oral hypoglycemic drugs; Z82.49 Family history of ischemic heart disease and other diseases of the circulatory system; Z79.82 Long term (current) use of aspirin; Z79.899 Other long term (current) drug therapy
CPT/HCPCS: 93458; 80048; 85025; C9600; C9601; C1760 ×2; C1769 ×3; C1887; C1894; C1874; C1725; J2001; J2250; J1200; J2930; J3010; J0583; Q9967 ×3; J2270

== ENCOUNTER → 2017-12-08 | Outpatient (CLI) | payer OTHER ==
[2017-12-08 16:39] LABS: Albumin 4.3 g/dL (3.5-5.0); Calcium 8.5 mg/dL (8.4-10.2); Potassium 5.5 mmol/L (3.5-5.1); Total Bilirubin 0.2 mg/dL (0.2-1.3); Total Protein 6.9 g/dL (6.3-8.2)
[2017-12-08 16:51] LABS: HCT 30.6 % (39.0-53.0); MCH 28.1 pg (25.0-35.0); MCHC 32.5 g/dL (31.0-37.0); MCV 86.4 fL (80.0-100.0); Mean Platelet Volume 6.4; Platelet Count 194 k/uL (150-450); RBC 3.54 m/uL (4.30-5.90); RDW 14.1 % (11.5-15.5)
== END | disposition home or self-care (01) ==
LOC: LABWHC1 15:13
PROVIDERS: ATTEND Internal Medicine Cardiovascular Disease
DX: I25.10 Atherosclerotic heart disease of native coronary artery without angina pectoris (principal)
CPT/HCPCS: 36415; 80053; 85027

== ENCOUNTER 2017-12-14 06:52 | Day surgery (SDC) | payer OTHER ==
[~2017-12-14 06:52] MED LIST changes: +ALPRAZolam 0.5 MG TAB PO PRN; -ASPIRIN 325 MG TAB PO ONE; +ASPIRIN 325 MG TAB PO STA; +ATORVASTATIN 80 MG TAB PO STA; +NITROGLYCERIN SL TABS 0.4 MG TAB SUBLINGUAL PRN
[2017-12-14 07:56] LABS: Glucose,Whole Blood 295 mg/dL (75-99)
[2017-12-14 08:10] LABS: Basophils % (A) 0 %; Eosinophils # (A) 0.4 k/uL (0-0.7); Eosinophils % (A) 3 %; HGB 10.1 gm/dL (13.0-17.5); Lymphocytes % (A) 10 %; MCH 28.5 pg (25.0-35.0); MCHC 33.7 g/dL (31.0-37.0); MCV 84.6 fL (80.0-100.0); Mean Platelet Volume 6.6; Monocytes # (A) 0.5 k/uL (0-1.0); Monocytes % (A) 5 %; Neutrophils # (A) 8.4 k/uL (1.3-7.7); Neutrophils % (A) 80 %; Platelet Count 164 k/uL (150-450); RBC 3.54 m/uL (4.30-5.90); RDW 13.8 % (11.5-15.5); WBC 10.4 k/uL (3.8-10.6)
[2017-12-14] MEDS ORDERED: INSULIN ASPART 100 UNIT/ML 1 ML 10 ML VIAL SQ ONE (08:15)
[2017-12-14] MEDS ORDERED: IV FLUID CONTINUATION 1,000 ML IV ONE (09:27)
[2017-12-14] MEDS ORDERED: LIDOCAINE 1% INJ 10MG/ML (20 ML MDV) ONE (09:36)
[2017-12-14 09:39] LABS: Potassium 5.3 mmol/L (3.5-5.1)
[2017-12-14] MEDS ORDERED: MIDAZOLAM 2 MG/2 ML VIAL ONE (09:51)
[2017-12-14] MEDS ORDERED: diphenhydrAMINE 50 MG/ML 1 ML VIAL ONE (09:51)
[2017-12-14] MEDS: MIDAZOLAM 2 MG/2 ML VIAL IV ONE ×2 (09:53→10:02)
[2017-12-14] MEDS ORDERED: diphenhydrAMINE 50 MG/ML 1 ML VIAL IVP ONE (09:53)
[2017-12-14] MEDS: LIDOCAINE 1% INJ 10MG/ML (20 ML MDV) SQ ONE ×2 (10:01→10:25)
[2017-12-14] MEDS ORDERED: BIVALIRUDIN BOLUS 250 MG/50 ML IV ONE (10:08)
[2017-12-14] MEDS ORDERED: BIVALIRUDIN 250 MG in SODIUM CHLORIDE 0.9% 50 ML IV ONE (10:09)
[2017-12-14] MEDS ORDERED: NITROGLYCERIN 1000MCG/10ML SYRINGE INTRACORON ONE (10:20)
[2017-12-14] MEDS ORDERED: MORPHINE SULFATE 4 MG/ML SYRINGE ONE (10:24)
[2017-12-14] MEDS ORDERED: MORPHINE SULFATE 4 MG/ML SYRINGE IV ONE (10:26)
[2017-12-14] MEDS ORDERED: IOPAMIDOL-370 100ML BTL INJ ONE (10:27)
[2017-12-14] MEDS ORDERED: NITROGLYCERIN SL TABS 0.4 MG TAB SUBLINGUAL PRN (10:41)
[2017-12-14] MEDS ORDERED: ATROPINE SULFATE 0.1 MG/ML 10ML SYRINGE IV PRN (10:41)
[2017-12-14] MEDS ORDERED: RX INFO: IV CONTRAST WAS GIVEN 1 EACH MISC MISCELLANE PRN (10:41)
[2017-12-14] MEDS ORDERED: ZOLPIDEM 5 MG TAB PO PRN (10:41)
[2017-12-14] MEDS ORDERED: MAG HYDROX/AL HYDROX/SIMETH 30 ML CUP PO PRN (10:41)
[2017-12-14] MEDS ORDERED: CLOPIDOGREL 75 MG TAB PO ONE (10:54)
[2017-12-14] MEDS ORDERED: CLOPIDOGREL 75 MG TAB ONE (10:54)
--- NOTE | 2017-12-14 11:35 | CC ---
CARDIAC CATHETERIZATION REPORT DATE OF SERVICE: 12/14/2017. PROCEDURE: 1. Coronary angiography to check patency of left circumflex left circumflex coronary artery. 2. PTCA and stenting of mid LAD with a drug-eluting stent. SEDATION/ANESTHESIA: Moderate conscious sedation time was 37 minutes. Patient's EKG hemodynamics and oxygen saturation were monitored closely. CLINICAL INFORMATION: Mr. Kashmir Tinajero is a 52-year-old gentleman with history of type 2 diabetes on oral agents, hypertension, hyperlipidemia, and coronary artery disease. He underwent stenting of a very diffusely diseased lesion involved in the circumflex with excellent result. He was brought in for elective PCI of mid LAD. He has known RCA occlusion with collaterals from the left system. Risks, benefits, options, rationale were explained to the patient regarding the PCI procedure. Risks of restenoses, abruptly closure, CVA, infection, vascular injury etc, were given in great detail. The patient understood all details and wished to proceed with the procedure. PROCEDURE NOTE: Under local anesthesia and strict aseptic precautions, a 6-Ukrainian introducer was placed in the right femoral artery. I used a standard left Anny guide catheter to cannulate left coronary artery. I performed injection in the HAYWARD caudal projection to check the patency of circumflex. This vessel was widely patent with remarkably good angiographic appearance and flow. This was communicated to the patient and I then proceeded to perform intervention of the LAD. A run-through wire was used to cross the lesion in the LAD which was 80% mid LAD lesion. Predilatation was performed with a 15 mm long 2.25 caliber Trek balloon. I then deployed a 15 mm long 2.5 caliber Xience stent at 13 atmospheres. Patient had mild chest discomfort and precordial ST elevation. Excellent angiographic result was achieved. He received Angiomax bolus and infusion as per protocol. He was already on aspirin and Plavix which were continued. The sheath was taken out and a Perclose device used to secure hemostasis. Because of some oozing, I applied a FemoStop as well for 2 hours. Excellent angiographic result without complication was achieved. Results were discussed with the patient and his . He was sent to the room in a stable condition. MMODL / IJN: [id number] /
[2017-12-14 12:08] LABS: Glucose,Whole Blood 189 mg/dL (75-99)
[2017-12-14 18:50] LABS: Glucose,Whole Blood 168 mg/dL (75-99)
[2017-12-14 21:31] LABS: Glucose,Whole Blood 205 mg/dL (75-99)
[2017-12-14] MEDS: LISINOPRIL 20 MG TAB PO SCH (21:42)
[2017-12-14] MEDS: SODIUM CHLORIDE 0.9% 1,000 ML IV SCH (21:44)
[2017-12-14] MEDS: cloNIDine HCL 0.2 MG TAB PO SCH (21:51)
[2017-12-14] MEDS ORDERED: amLODIPine 5 MG TAB PO STA (23:00)
[2017-12-15 06:07] LABS: Glucose,Whole Blood 212 mg/dL (75-99)
[2017-12-15 07:44] VITALS: BP 159/77; PULSE 65; RESP 17; TEMP 97.8
[2017-12-15] MEDS ORDERED: NITROGLYCERIN SL TABS 0.4 MG TAB SUBLINGUAL PRN (07:49)
[2017-12-15] MEDS ORDERED: LISINOPRIL 20 MG TAB PO SCH (07:49)
[2017-12-15] MEDS ORDERED: PANTOPRAZOLE 40 MG TABLET PO SCH (08:00)
[2017-12-15] MEDS: SODIUM CHLORIDE 0.9% 1,000 ML IV SCH (08:00)
[2017-12-15 08:08] LABS: Basophils % (A) 1 %; Eosinophils # (A) 0.3 k/uL (0-0.7); Eosinophils % (A) 5 %; HCT 26.9 % (39.0-53.0); HGB 8.9 gm/dL (13.0-17.5); Lymphocytes # (A) 1.2 k/uL (1.0-4.8); Lymphocytes % (A) 20 %; MCH 28.5 pg (25.0-35.0); MCHC 33.2 g/dL (31.0-37.0); MCV 85.9 fL (80.0-100.0); Mean Platelet Volume 7.4; Monocytes # (A) 0.4 k/uL (0-1.0); Monocytes % (A) 6 %; Neutrophils % (A) 67 %; Platelet Count 135 k/uL (150-450); RBC 3.14 m/uL (4.30-5.90); RDW 14.2 % (11.5-15.5)
[2017-12-15 08:35] LABS: Anion Gap 9 mmol/L; Blood Urea Nitrogen 20 mg/dL (9-20); Calcium 8.4 mg/dL (8.4-10.2); Carbon Dioxide 26 mmol/L (22-30); Chloride 104 mmol/L (98-107); Glucose 205 mg/dL (74-99); Potassium 4.4 mmol/L (3.5-5.1); Sodium 139 mmol/L (137-145)
[2017-12-15] MEDS ORDERED: cloNIDine HCL 0.2 MG TAB PO SCH (09:00)
[2017-12-15] MEDS ORDERED: CITALOPRAM HYDROBROMIDE 20 MG TAB PO SCH (09:00)
[2017-12-15] MEDS ORDERED: ASPIRIN 81 MG PO SCH ×2 (09:00)
[2017-12-15] MEDS ORDERED: CLOPIDOGREL 75 MG TAB PO SCH ×2 (09:00)
[2017-12-15] MEDS ORDERED: DOCUSATE 100 MG CAP PO SCH (09:00)
[2017-12-15] MEDS ORDERED: METOPROLOL TARTRATE 25 MG TAB PO SCH (09:00)
[2017-12-15] MEDS ORDERED: LINAGLIPTIN 5 MG TABLET PO SCH (09:00)
[2017-12-15] MEDS ORDERED: TAMSULOSIN 0.4 MG CAP.ER.24H PO SCH (09:00)
[2017-12-15] MEDS ORDERED: GLIMEPIRIDE 1 MG TAB PO SCH (09:00)
[2017-12-15] MEDS: LISINOPRIL 20 MG TAB PO SCH (09:35)
[2017-12-15] MEDS: cloNIDine HCL 0.2 MG TAB PO SCH (09:36)
[2017-12-15 10:34] VITALS: BMI 27.0
--- NOTE | 2017-12-15 14:02 | P.DS ---
Providers Attending physician: Guerrero Avendaño Consults: 12/14/17 10:41 Consult Physician Routine Consulting Provider: [facility] Consult Reason/Comments: Post Interventional patient Do you want consulting provider notified?: Already Contacted Primary care physician: Tyler Rosenberg [facility] Course: Mr. Tinajero was brought to the hospital for an elective PCI of the mid LAD. He has known RCA occlusion with collaterals from the left system. He is a 52-year- old gentleman with past medical history significant for type 2 diabetes mellitus , hypertension, dyslipidemia and coronary artery disease. He underwent successful angioplasty of the mid LAD yesterday per Dr. Avendaño. The lesion was 80% reduced to 0% status post stenting. He was seen in this morning resting comfortably in bed with no acute distress noted. Right groin was clean dry and intact with no evidence of hematoma, ecchymosis or bleeding. EKG this morning shows no new abnormalities. He denies symptoms of chest pain, shortness of breath, dizziness, nausea, palpitations or diaphoresis. Blood pressure and heart rate are stable. Hemoglobin 8.9, platelets 135, sodium 139, potassium 4.4 , creatinine 1.07. A sling hemoglobin on the low 9 range. He was discharged home on clonidine 0.2 mg twice a day, lisinopril 20 mg twice a day, atorvastatin 80 mg daily, Lopressor 25 mg twice a day, Plavix 75 mg daily and aspirin 81 mg daily. Follow-up with Dr. VC Church in one week. Patient Condition at Discharge: Stable Plan - Discharge Summary Discharge Rx Participant: Yes New Discharge Prescriptions: New Aspirin 81 mg PO DAILY chew Continue sitaGLIPtin [Januvia] 100 mg PO QAM Lurasidone HCl [Latuda] 40 mg PO HS Glimepiride [Amaryl] 1 mg PO QAM Gabapentin 600 mg PO HS Citalopram Hydrobromide [CeleXA] 40 mg PO QAM Docusate Sodium [Dok] 100 mg PO BID cloNIDine HCL [Catapres] 0.2 mg PO BID Lisinopril [Zestril] 20 mg PO BID Pantoprazole [Protonix] 40 mg PO BID Tamsulosin [Flomax] 0.4 mg PO BID Atorvastatin [Lipitor] 80 mg PO HS tab Metoprolol Tartrate [Lopressor] 25 mg PO BID #60 tab Nitroglycerin Sl Tabs [Nitrostat] 0.4 mg SUBLINGUAL Q5M PRN #25 tab PRN Reason: Chest Pain metFORMIN HCL 1,000 mg PO BID #0 Clopidogrel [Plavix] 75 mg PO QAM Aspirin 81 mg PO QAM Discontinued Ondansetron HCl [Zofran] 8 mg PO TID PRN PRN Reason: Nausea Discharge Medication List Citalopram Hydrobromide [CeleXA] 40 mg PO QAM 09/12/17 [History] Docusate Sodium [Dok] 100 mg PO BID 09/12/17 [History] Gabapentin 600 mg PO HS 09/12/17 [History] Glimepiride [Amaryl] 1 mg PO QAM 09/12/17 [History] Lisinopril [Zestril] 20 mg PO BID 09/12/17 [History] Lurasidone HCl [Latuda] 40 mg PO HS 09/12/17 [History] cloNIDine HCL [Catapres] 0.2 mg PO BID 09/12/17 [History] sitaGLIPtin [Januvia] 100 mg PO QAM 09/12/17 [History] Pantoprazole [Protonix] 40 mg PO BID 11/05/17 [History] Tamsulosin [Flomax] 0.4 mg PO BID 11/05/17 [History] Atorvastatin [Lipitor] 80 mg PO HS tab 11/12/17 [Rx] Metoprolol Tartrate [Lopressor] 25 mg PO BID #60 tab 11/12/17 [Rx] Nitroglycerin Sl Tabs [Nitrostat] 0.4 mg SUBLINGUAL Q5M PRN #25 tab 11/12/17 [Rx ] metFORMIN HCL 1,000 mg PO BID #0 11/12/17 [Rx] Aspirin 81 mg PO QAM 12/09/17 [History] Clopidogrel [Plavix] 75 mg PO QAM 12/09/17 [History] Aspirin 81 mg PO DAILY chew 12/15/17 [Rx] Follow up Appointment(s)/Referral(s): Beba Church MD [STAFF PHYSICIAN] - 12/22/17 2:30 pm (At [facility] office by Mathew.) Patient Instructions/Handouts: *Surgery [facility] - After Heart Catheterization - Diamond Sizer Instructions, Iron Rich Diet (DC), Heart Healthy Diet (DC), Coronary Intravascular Stent Placement (DC) Discharge Disposition: HOME SELF-CARE
[2017-12-15] MEDS ORDERED: ATORVASTATIN 80 MG TAB PO SCH (21:00)
[2017-12-15] MEDS ORDERED: GABAPENTIN 300 MG CAP PO SCH (21:00)
[2017-12-15] MEDS ORDERED: LURASIDONE 40 MG TAB PO SCH (21:00)
== END 2017-12-15 10:55 | disposition home or self-care (01) ==
LOC: CATHCVL 06:52 → 6SEL 10:30 → CATHCVL 17:40
PROVIDERS: ATTEND Internal Medicine Interventional Cardiology
DX: I25.10 Atherosclerotic heart disease of native coronary artery without angina pectoris (principal); E11.36 Type 2 diabetes mellitus with diabetic cataract; I63.3 Cerebral infarction due to thrombosis of cerebral arteries; E78.5 Hyperlipidemia, unspecified; I10 Essential (primary) hypertension; Z79.84 Long term (current) use of oral hypoglycemic drugs; Z79.82 Long term (current) use of aspirin; Z79.02 Long term (current) use of antithrombotics/antiplatelets; Z79.52 Long term (current) use of systemic steroids; Z79.899 Other long term (current) drug therapy; Z95.5 Presence of coronary angioplasty implant and graft; Z82.49 Family history of ischemic heart disease and other diseases of the circulatory system
CPT/HCPCS: 80048 ×2; 85025 ×2; C9600; C1887; C1725; C1769 ×3; C1894; C1874; C1760; J2250; J2270; J1200; J2001; J0583; Q9967

== ENCOUNTER → 2018-09-20 | Outpatient (CLI) | payer OTHER ==
[2018-09-20 17:10] LABS: HCT 25.4 % (39.0-53.0); HGB 8.7 gm/dL (13.0-17.5); MCH 29.4 pg (25.0-35.0); MCHC 34.3 g/dL (31.0-37.0); MCV 85.7 fL (80.0-100.0); Mean Platelet Volume 8.1; Platelet Count 126 k/uL (150-450); RBC 2.96 m/uL (4.30-5.90); RDW 13.8 % (11.5-15.5); WBC 5.7 k/uL (3.8-10.6)
[2018-09-20 17:43] LABS: Appearance,Urine Clear (Clear); Bilirubin,Urine Negative (Negative); Blood,Urine Small (Negative); Color,Urine Light Yellow; Glucose,Urine (UA) 4+ (Negative); Ketones,Urine Negative (Negative); Leukocyte Esterase,Urine Negative (Negative); Nitrite,Urine Negative (Negative); Protein,Urine 1+ (Negative); RBC,Urine 8 /hpf (0-5); Specific Gravity,Urine 1.019 (1.001-1.035); Urobilinogen,Urine <2.0 mg/dL (<2.0); WBC,Urine 1 /hpf (0-5)
[2018-09-20 23:41] LABS: Albumin 3.9 g/dL (3.80-4.90); Albumin/Globulin Ratio 2.17 (1.60-3.17); Anion Gap 8.1 mmol/L (4.00-12.00); Calcium 7.9 mg/dL (8.7-10.3); Carbon Dioxide 23.9 mmol/L (21.6-31.8); Globulin 1.8 g/dL (1.6-3.3); Iron Saturation 22.59 (15.00-50.00); Magnesium 1.3 mg/dL (1.5-2.4); Phosphorus 3.2 mg/dL (2.4-5.1); Potassium 5.4 mmol/L (3.5-5.5); Total Bilirubin 0.4 mg/dL (0.3-1.2); Total Protein 5.7 g/dL (6.2-8.2)
[2018-09-20 23:55] LABS: Uric Acid 6.9 mg/dL (3.7-8.7); Vitamin D 25 Hydroxy 10.8 ng/mL (30.0-100.0)
[2018-09-21 00:25] LABS: Parathyroid Hormone Intact 165.7 pg/mL (14.0-72.0)
== END | disposition home or self-care (01) ==
LOC: LABWHC1 16:27
PROVIDERS: ATTEND Internal Medicine
DX: N18.9 Chronic kidney disease, unspecified (principal); D63.1 Anemia in chronic kidney disease; N39.0 Urinary tract infection, site not specified; N25.81 Secondary hyperparathyroidism of renal origin; E55.9 Vitamin D deficiency, unspecified; M10.9 Gout, unspecified
CPT/HCPCS: 36415; 80053; 81001; 82043; 82306; 82570; 82728; 83540; 83550; 83735; 83970; 84100; 84550; 85027

== ENCOUNTER → 2018-10-05 | Outpatient (CLI) | payer OTHER ==
--- NOTE | 2018-10-06 09:48 | US ---
EXAMINATION TYPE: US kidneys/renal and bladder DATE OF EXAM: 10/05/2018 COMPARISON: Ultrasound 10/13/2017., CT for 09/10/2017 CLINICAL HISTORY: N18.9 Chronic Kidney Disease. abnormal labs EXAM MEASUREMENTS: Right Kidney: 10.0 x 5.6 x 5.4 cm Left Kidney: 10.8 x 5.2 x 5.6 cm Right Kidney: lower pole anechoic lesion - 1.7 x 0.7 x 0.8 cm This could be some mild hydronephrosis , or peripelvic cyst Left Kidney: No hydronephrosis or masses seen Bladder: Moderately distended. Length- 14.1 cm. Right Jet seen IMPRESSION: Anechoic structure within the mid to inferior pole right kidney could be some mild hydronephrosis or peripelvic cyst. This is an interval change from 10/13/2017. Consider repeat CT of the bilateral kidne ys.
== END | disposition home or self-care (01) ==
LOC: RADUSWWP 15:39
PROVIDERS: ATTEND Internal Medicine Nephrology
DX: N18.9 Chronic kidney disease, unspecified (principal)
CPT/HCPCS: 76770

== ENCOUNTER 2018-10-10 18:15 | Emergency (ER) | payer OTHER ==
[2018-10-10 18:23] LABS: Glucose,Whole Blood 292 mg/dL (75-99)
[2018-10-10] MEDS ORDERED: SODIUM CHLORIDE 0.9% 1,000 ML IV STA (18:26)
--- NOTE | 2018-10-10 18:45 | CT ---
EXAMINATION TYPE: CT brain wo con for TPA DATE OF EXAM: 10/10/2018 COMPARISON: None HISTORY: Left sided weakness CT DLP: 1134.4 mGycm Automated exposure control for dose reduction was used. FINDINGS: There is some cerebral cortical atrophy. There is no mass effect nor midline shift. There is no sign of intracranial hemorrhage. Calvarium is intact. IMPRESSION: CEREBRAL ATROPHY. NO ACUTE INTRACRANIAL ABNORMALITY.
--- NOTE | 2018-10-10 18:46 | XR ---
EXAMINATION TYPE: XR chest 2V DATE OF EXAM: 10/10/2018 COMPARISON: 09/29/2017 HISTORY: Short of breath TECHNIQUE: Frontal and lateral views of the chest are obtained. FINDINGS: Heart and mediastinum are normal. Lungs are clear. Diaphragm is normal. Bony thorax appear s normal. There are chest leads. IMPRESSION: Normal chest. No change.
--- NOTE | 2018-10-10 18:54 | ED ---
General Adult HPI - General Chief complaint: Neuro Symptoms/Deficit Stated complaint: neuro deficits Time Seen by Provider: 10/10/18 18:17 Source: patient, EMS Mode of arrival: EMS Limitations: physical limitation - History of Present Illness Initial comments: Dictation was produced using [employer] dictation software. please excuse any gr ammatical, word or spelling errors. Chief Complaint: 53-year-old male past medical history of CVA, diabetes, dyslipidemia presents with strokelike symptoms 4 days. History of Present Illness: He 3-year-old male presents with strokelike symptoms 4 days. When asked why he waited so long to come to the emergency department he states that he thought it would go away. Patient states that he is feeling some mild left-sided weakness and left-sided facial droop. He was told that his noted left-sided facial droop. Patient states he doesn't stroke suffered in October of last year. Patient denies any significant residual deficits since that stroke. He is on anti-stroke medications. The ROS documented in this emergency department record has been reviewed and confirmed by me. Those systems with pertinent positive or negative responses have been documented in the HPI. All other systems are other negative and/or noncontributory. PHYSICAL EXAM: General Impression: Alert and oriented x3, not in acute distress HEENT: Normocephalic atraumatic, extra-ocular movements intact, pupils equal and reactive to light bilaterally, mucous membranes moist. Cardiovascular: Heart regular rate and rhythm, S1&S2 audible, no murmurs, rubs or gallops Chest: Lungs clear to auscultation bilaterally, no rhonchi, no wheeze, no rales Abdomen: Bowel sounds present, abdomen soft, non-tender, non-distended, no organomegaly Musculoskeletal: Pulses present and equal in all extremities, no peripheral edema Motor: no focal deficits noted Neurological: CN II-XII grossly intact, no appreciable facial droop, not aphasic, mild drift of the left upper and left lower extremity Skin: Intact with no visualized rashes Psych: Normal affect and mood ED course: 53 yo male presents with strokelike symptoms. Patient states she's been symptomatic for approximate 4 days. Patient outside of TPA window. Vital signs upon arrival shows blood pressure 203/99, worse vital signs within acceptable limits. Patient given initial NIH score of 2. Laboratory evaluation obtained. CBC unremarkable. Patient has a hemoglobin 8.8 which is around his baseline. Coag panel unremarkable. Patient had elevated r enal markers with a creatinine 2.31. This appears to be elevated recently. Hyperglycemia. Cardiac enzymes negative. Chest x-ray and brain CT are both nonacute. Patient given aspirin. Patient be transferred to [facility] for CVA. Patient given intravenous fluids for acute kidney injury. Excepting physician is Dr. Wall. EKG interpretation: Ventricular rate 74, normal sinus rhythm, KS interval 176, QS 90, QTc 448. No KS prolongation, no QTC prolongation, no ST or T-wave changes noted. Overall, this EKG is unremarkable - Related Data Home Medications Medication Instructions Recorded Confirmed Docusate Sodium [Dok] 100 mg PO BID 09/12/17 10/10/18 Gabapentin 600 mg PO BID 09/12/17 10/10/18 Glimepiride [Amaryl] 1 mg PO QAM 09/12/17 10/10/18 Lisinopril [Zestril] 20 mg PO BID 09/12/17 10/10/18 Lurasidone [Latuda] 40 mg PO HS 09/12/17 10/10/18 cloNIDine HCL [Catapres] 0.2 mg PO BID 09/12/17 10/10/18 sitaGLIPtin [Januvia] 100 mg PO QAM 09/12/17 10/10/18 Pantoprazole [Protonix] 40 mg PO BID 11/05/17 10/10/18 Tamsulosin [Flomax] 0.4 mg PO BID 11/05/17 10/10/18 Clopidogrel [Plavix] 75 mg PO QAM 12/09/17 10/10/18 Escitalopram [Lexapro] 20 mg PO DAILY 10/10/18 10/10/18 Previous Rx's Medication Instructions Recorded Atorvastatin [Lipitor] 80 mg PO HS tab 11/12/17 Metoprolol Tartrate [Lopressor] 25 mg PO BID #60 tab 11/12/17 Nitroglycerin Sl Tabs [Nitrostat] 0.4 mg SUBLINGUAL Q5M PRN #25 tab 11/12/17 metFORMIN HCL 1,000 mg PO BID #0 11/12/17 Aspirin 81 mg PO DAILY chew 12/15/17 Allergies Allergy/AdvReac Type Severity Reaction Status Date / Time Iodinated Contrast- Oral and Allergy Nausea & Verified 10/10/18 19:25 IV Dye Vomiting Review of Systems ROS Statement: Those systems with pertinent positive or pertinent negative responses have been documented in the HPI. ROS Other: All systems not noted in ROS Statement are negative. Past Medical History Past Medical History: CVA/TIA, Diabetes Mellitus, GERD/Reflux, Hyperlipidemia, Hypertension, Myocardial Infarction (RI), Renal Disease, Rheumatoid Arthritis (RA) Additional Past Medical History / Comment(s): stroke apr 2017, migranes, diabetic neuropathy arms and legs, stage 2 kidney failure, PANCREATITIS, LEGALLY BLIND, enlarged prostate, trouble urinating Last Myocardial Infarction Date:: 2014? not sure History of Any Multi-Drug Resistant Organisms: None Reported Past Surgical History: No Surgical Hx Reported Additional Past Surgical History / Comment(s): EGD Past Anesthesia/Blood Transfusion Reactions: No Reported Reaction Additional Past Anesthesia/Blood Transfusion Reaction / Comment(s): never had anethesia Date of Last Stent Placement:: 11/11/2017 Past Psychological History: Anxiety, Depression Smoking Status: Never smoker Past Alcohol Use History: None Reported Past Drug Use History: None Reported - Past Family History Mother Family Medical History: CVA/TIA, Diabetes Mellitus, Hypertension Additional Family Medical History / Comment(s): Mother is 77yrs old. Father Family Medical History: CVA/TIA, Diabetes Mellitus, Myocardial Infarction (RI) Additional Family Medical History / Comment(s): Father of a RI in his 50s. 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 ] Respiratory 16 18 Rate Blood Pressure 203/99 Blood Pressure 188/83 [Right Arm Supine] O2 Sat by Pulse 98 Oximetry Medical Decision Making - Lab Data Result diagrams: 10/10/18 18:47 10/10/18 18:47 Lab Results 10/10/18 10/10/18 10/10/18 Range/Units 18:20 18:47 18:47 WBC 5.8 (3.8-10.6) k/uL RBC 3.10 L (4.30-5.90) m/uL Hgb 8.8 L (13.0-17.5) gm/dL Hct 26.5 L (39.0-53.0) % MCV 85.6 (80.0-100.0) fL MCH 28.4 (25.0-35.0) pg MCHC 33.2 (31.0-37.0) g/dL RDW 13.3 (11.5-15.5) % Plt Count 146 L (150-450) k/uL Neutrophils % 63 % Lymphocytes % 25 % Monocytes % 5 % Eosinophils % 3 % Basophils % 0 % Neutrophils # 3.7 (1.3-7.7) k/uL Lymphocytes # 1.4 (1.0-4.8) k/uL Monocytes # 0.3 (0-1.0) k/uL Eosinophils # 0.2 (0-0.7) k/uL Basophils # 0.0 (0-0.2) k/uL PT (9.0-12.0) sec INR (<1.2) APTT (22.0-30.0) sec Sodium 139 (137-145) mmol/L Potassium 5.1 (3.5-5.1) mmol/L Chloride 107 (98-107) mmol/L Carbon Dioxide 25 (22-30) mmol/L Anion Gap 7 mmol/L BUN 38 H (9-20) mg/dL Creatinine 2.31 H (0.66-1.25) mg/dL Est GFR (CKD-EPI)AfAm 37 (>60 ml/min/1.73 sqM) Est GFR (CKD-EPI)NonAf 32 (>60 ml/min/1.73 sqM) Glucose 260 H (74-99) mg/dL POC Glucose (mg/dL) 292 H (75-99) mg/dL POC Glu Switchboard Mechanic ID Sina Melanie Calcium 8.6 (8.4-10.2) mg/dL Total Bilirubin 0.4 (0.2-1.3) mg/dL AST 16 L (17-59) U/L ALT 22 (21-72) U/L Alkaline Phosphatase 104 (38-126) U/L Troponin I (0.000-0.034) ng/mL Total Protein 6.4 (6.3-8.2) g/dL Albumin 3.9 (3.5-5.0) g/dL 10/10/18 10/10/18 Range/Units 18:47 18:47 WBC (3.8-10.6) k/uL RBC (4.30-5.90) m/uL Hgb (13.0-17.5) gm/dL Hct (39.0-53.0) % MCV (80.0-100.0) fL MCH (25.0-35.0) pg MCHC (31.0-37.0) g/dL RDW (11.5-15.5) % Plt Count (150-450) k/uL Neutrophils % % Lymphocytes % % Monocytes % % Eosinophils % % Basophils % % Neutrophils # (1.3-7.7) k/uL Lymphocytes # (1.0-4.8) k/uL Monocytes # (0-1.0) k/uL Eosinophils # (0-0.7) k/uL Basophils # (0-0.2) k/uL PT 10.0 (9.0-12.0) sec INR 0.9 (<1.2) APTT 24.3 (22.0-30.0) sec Sodium (137-145) mmol/L Potassium (3.5-5.1) mmol/L Chloride (98-107) mmol/L Carbon Dioxide (22-30) mmol/L Anion Gap mmol/L BUN (9-20) mg/dL Creatinine (0.66-1.25) mg/dL Est GFR (CKD-EPI)AfAm (>60 ml/min/1.73 sqM) Est GFR (CKD-EPI)NonAf (>60 ml/min/1.73 sqM) Glucose (74-99) mg/dL POC Glucose (mg/dL) (75-99) mg/dL POC Glu Switchboard Mechanic ID Calcium (8.4-10.2) mg/dL Total Bilirubin (0.2-1.3) mg/dL AST (17-59) U/L ALT (21-72) U/L Alkaline Phosphatase (38-126) U/L Troponin I <0.012 (0.000-0.034) ng/mL Total Protein (6.3-8.2) g/dL Albumin (3.5-5.0) g/dL Disposition Clinical Impression: CVA (cerebral vascular accident) Disposition: OTHER INSTITUTION NOT DEFINED Condition: Fair Referrals: Lamar Scott MD [Primary Care Provider] - 1-2 days Time of Disposition: 19:33 - Out of Hospital Transfer - Req. Specs Out of Hospital Transfer - Requested Specifics: Other Emergency Center ([facility] for [facility])
[2018-10-10 18:58] LABS: Basophils % (A) 0 %; Eosinophils # (A) 0.2 k/uL (0-0.7); Eosinophils % (A) 3 %; HCT 26.5 % (39.0-53.0); HGB 8.8 gm/dL (13.0-17.5); Lymphocytes # (A) 1.4 k/uL (1.0-4.8); Lymphocytes % (A) 25 %; MCH 28.4 pg (25.0-35.0); MCHC 33.2 g/dL (31.0-37.0); MCV 85.6 fL (80.0-100.0); Mean Platelet Volume 6.8; Monocytes # (A) 0.3 k/uL (0-1.0); Monocytes % (A) 5 %; Neutrophils # (A) 3.7 k/uL (1.3-7.7); Neutrophils % (A) 63 %; Platelet Count 146 k/uL (150-450); RDW 13.3 % (11.5-15.5); WBC 5.8 k/uL (3.8-10.6)
[2018-10-10 19:09] LABS: Albumin 3.9 g/dL (3.5-5.0); Calcium 8.6 mg/dL (8.4-10.2); Potassium 5.1 mmol/L (3.5-5.1); Total Bilirubin 0.4 mg/dL (0.2-1.3); Total Protein 6.4 g/dL (6.3-8.2)
[2018-10-10 19:10] LABS: INR 0.9 (<1.2); Partial Thromboplastin Time 24.3 sec (22.0-30.0)
[2018-10-10 19:17] VITALS: TEMP 98.8
[2018-10-10] MEDS ORDERED: SODIUM CHLORIDE 0.9% 500 ML IV STA (19:32)
[2018-10-10] MEDS ORDERED: ASPIRIN 81 MG PO STA (19:32)
[2018-10-10 19:55] VITALS: PULSE 69
[2018-10-10 20:29] VITALS: BP 191/88; RESP 18
== END 2018-10-10 20:10 | disposition short-term general hospital (02) ==
LOC: EC 18:15
DX: I63.9 Cerebral infarction, unspecified (principal); R29.703 NIHSS score 3; E11.65 Type 2 diabetes mellitus with hyperglycemia; E11.40 Type 2 diabetes mellitus with diabetic neuropathy, unspecified; K21.9 Gastro-esophageal reflux disease without esophagitis; I10 Essential (primary) hypertension; N17.9 Acute kidney failure, unspecified; I25.2 Old myocardial infarction; F41.9 Anxiety disorder, unspecified; F32.9 Major depressive disorder, single episode, unspecified; Z79.84 Long term (current) use of oral hypoglycemic drugs; Z79.02 Long term (current) use of antithrombotics/antiplatelets; Z79.899 Other long term (current) drug therapy; Z91.041 Radiographic dye allergy status
CPT/HCPCS: 36415; 70450; 71046; 80053; 84484; 85025; 85610; 85730; 93005; 96360; 96361; 99285

== ENCOUNTER 2018-10-19 12:11 | Emergency (ER) | payer OTHER ==
[2018-10-19 12:15] VITALS: BP 189/75; PULSE 57; RESP 18; TEMP 97.2
--- NOTE | 2018-10-19 12:21 | ED ---
Recheck HPI - General Chief Complaint: Recheck/Abnormal Lab/Rx Stated Complaint: catheter removal Time Seen by Provider: 10/19/18 12:18 Source: patient, RN notes reviewed Mode of arrival: ambulatory Limitations: no limitations - History of Present Illness Initial Comments: 53-year-old male presents emergency Department with chief complaint of wanting Garcia cath removed. Patient states he had a placed on 10/12/2018 at [facility]. Patient states he was seen here transferred there for possible CVA though they found that he did not have one. Patient states that he had in because he was having some difficulty voiding while he was in the bed. Patient states they told him to remove it after one week. Patient has appointment next week with urology but states that he cannot tolerate anymore. Patient states that he does understand that he may not be up to urinate and that he may have to return the emergency department. Patient has no abdominal pain no fevers or chills. - Related Data Home Medications Medication Instructions Recorded Confirmed Docusate Sodium [Dok] 100 mg PO BID 09/12/17 10/10/18 Gabapentin 600 mg PO BID 09/12/17 10/10/18 Glimepiride [Amaryl] 1 mg PO QAM 09/12/17 10/10/18 Lisinopril [Zestril] 20 mg PO BID 09/12/17 10/10/18 Lurasidone [Latuda] 40 mg PO HS 09/12/17 10/10/18 cloNIDine HCL [Catapres] 0.2 mg PO BID 09/12/17 10/10/18 sitaGLIPtin [Januvia] 100 mg PO QAM 09/12/17 10/10/18 Pantoprazole [Protonix] 40 mg PO BID 11/05/17 10/10/18 Tamsulosin [Flomax] 0.4 mg PO BID 11/05/17 10/10/18 Clopidogrel [Plavix] 75 mg PO QAM 12/09/17 10/10/18 Escitalopram [Lexapro] 20 mg PO DAILY 10/10/18 10/10/18 Previous Rx's Medication Instructions Recorded Atorvastatin [Lipitor] 80 mg PO HS tab 11/12/17 Metoprolol Tartrate [Lopressor] 25 mg PO BID #60 tab 11/12/17 Nitroglycerin Sl Tabs [Nitrostat] 0.4 mg SUBLINGUAL Q5M PRN #25 tab 11/12/17 metFORMIN HCL 1,000 mg PO BID #0 11/12/17 Aspirin 81 mg PO DAILY chew 12/15/17 Allergies Allergy/AdvReac Type Severity Reaction Status Date / Time Iodinated Contrast- Oral and Allergy Nausea & Verified 10/10/18 19:25 IV Dye Vomiting Review of Systems ROS Statement: Those systems with pertinent positive or pertinent negative responses have been documented in the HPI. ROS Other: All systems not noted in ROS Statement are negative. Past Medical History Past Medical History: CVA/TIA, Diabetes Mellitus, GERD/Reflux, Hyperlipidemia, Hypertension, Myocardial Infarction ([place]), Renal Disease, Rheumatoid Arthritis ([place]) Additional Past Medical History / Comment(s): stroke apr 2017, migranes, diabetic neuropathy arms and legs, stage 2 kidney failure, PANCREATITIS, LEGALLY BLIND, enlarged prostate, trouble urinating Last Myocardial Infarction Date:: 2014? not sure History of Any Multi-Drug Resistant Organisms: None Reported Past Surgical History: No Surgical Hx Reported Additional Past Surgical History / Comment(s): EGD Past Anesthesia/Blood Transfusion Reactions: No Reported Reaction Additional Past Anesthesia/Blood Transfusion Reaction / Comment(s): never had anethesia Date of Last Stent Placement:: 11/11/2017 Past Psychological History: Anxiety, Depression Smoking Status: Never smoker Past Alcohol Use History: None Reported Past Drug Use History: None Reported - Past Family History Mother Family Medical History: CVA/TIA, Diabetes Mellitus, Hypertension Additional Family Medical History / Comment(s): Mother is 77yrs old. Father Family Medical History: CVA/TIA, Diabetes Mellitus, Myocardial Infarction ([place]) Additional Family Medical History / Comment(s): Father of a [place] in his 50s. General Exam Limitations: no limitations General appearance: alert, in no apparent distress Neck exam: Present: normal inspection. Absent: tenderness, meningismus, lymphadenopathy Respiratory exam: Present: normal lung sounds bilaterally. Absent: respiratory distress, wheezes, rales, rhonchi, stridor Cardiovascular Exam: Present: regular rate, normal rhythm, normal heart sounds. Absent: systolic murmur, diastolic murmur, rubs, gallop, clicks GI/Abdominal exam: Present: soft, normal bowel sounds. Absent: distended, tenderness, guarding, rebound, rigid exam: Absent: normal inspection (Fully catheter placed) Course Vital Signs 10/19/18 12:13 Temperature 97.2 F L Pulse Rate 57 L Respiratory 18 Rate Blood Pressure 189/75 O2 Sat by Pulse 100 Oximetry Medical Decision Making - Medical Decision Making 53-year-old male presented from for Garcia catheter removal. This was removed in emergency department. He was given return parameters if he is unable to urinate. Patient has a follow-up appointment with urology. Return parameters discussed. Disposition Clinical Impression: Encounter for Garcia catheter removal, Urinary retention Disposition: HOME SELF-CARE Condition: Stable Additional Instructions: Please return to the Emergency Department if symptoms worsen or any other concerns. Is patient prescribed a controlled substance at d/c from ED?: No Referrals: Lamar Scott MD [Primary Care Provider] - 1-2 days Time of Disposition: 12:21
== END 2018-10-19 12:34 | disposition home or self-care (01) ==
LOC: EC 12:11
DX: Z46.6 Encounter for fitting and adjustment of urinary device (principal); R33.9 Retention of urine, unspecified; E11.40 Type 2 diabetes mellitus with diabetic neuropathy, unspecified; K21.9 Gastro-esophageal reflux disease without esophagitis; I10 Essential (primary) hypertension; I25.2 Old myocardial infarction; N40.0 Benign prostatic hyperplasia without lower urinary tract symptoms; F41.9 Anxiety disorder, unspecified; F32.9 Major depressive disorder, single episode, unspecified; Z86.73 Personal history of transient ischemic attack (TIA), and cerebral infarction without residual deficits; Z79.84 Long term (current) use of oral hypoglycemic drugs; Z79.02 Long term (current) use of antithrombotics/antiplatelets; Z79.899 Other long term (current) drug therapy; Z91.041 Radiographic dye allergy status
CPT/HCPCS: 99283

== ENCOUNTER 2018-12-12 12:49 | Inpatient (IN) | payer MEDICARE, OTHER ==
[2018-12-12] MEDS ORDERED: methylPREDNISolone SOD SUCCI 125 MG/2 ML VIAL IV STA (13:42)
[2018-12-12] MEDS ORDERED: diphenhydrAMINE 50 MG/ML 1 ML VIAL IVP STA (13:42)
[2018-12-12] MEDS ORDERED: FAMOTIDINE 20 MG/2 ML VIAL IV STA (13:42)
[2018-12-12] MEDS ORDERED: ONDANSETRON 4 MG/2 ML VIAL IVP STA (13:43)
[2018-12-12] MEDS ORDERED: LABETALOL SYRINGE 5 MG/ML IVP STA (13:43)
--- NOTE | 2018-12-12 13:53 | ED ---
General Adult HPI <Lauri Sam - Last Filed: 12/12/18 17:09> - General Source: patient Mode of arrival: wheelchair Limitations: no limitations <Saundra Mohr - Last Filed: 12/12/18 19:03> - General Chief complaint: Nausea/Vomiting/Diarrhea Stated complaint: vomiting Time Seen by Provider: 12/12/18 13:27 - History of Present Illness Initial comments: Patient is a 53-year-old male with past medical history of CVA, hypertension, hyperlipidemia, diabetes presenting emergency Department with complaints of nausea and vomiting 3 days. Patient states he also has a headache and did not take his blood pressure medication this morning 2/2 the nausea so his BP has been elevated. Patient also admits to 1- 2 episodes of diarrhea. Patient denies blurry vision, urinary symptoms, fever, chills, cough, shortness of breath. Patient has been unable to eat or drink for the past 3 days. Last BM was yesterday and was loose. No other complaints at this time. (Saundra Mohr) - Related Data Home Medications Medication Instructions Recorded Confirmed Docusate Sodium [Dok] 100 mg PO BID 09/12/17 12/12/18 Gabapentin 600 mg PO BID 09/12/17 12/12/18 Glimepiride [Amaryl] 1 mg PO QAM 09/12/17 12/12/18 Lisinopril [Zestril] 20 mg PO BID 09/12/17 12/12/18 Lurasidone [Latuda] 40 mg PO HS 09/12/17 12/12/18 cloNIDine HCL [Catapres] 0.2 mg PO BID 09/12/17 12/12/18 sitaGLIPtin [Januvia] 100 mg PO QAM 09/12/17 12/12/18 Pantoprazole [Protonix] 40 mg PO BID 11/05/17 12/12/18 Tamsulosin [Flomax] 0.4 mg PO BID 11/05/17 12/12/18 Clopidogrel [Plavix] 75 mg PO QAM 12/09/17 12/12/18 Butalb/APAP/Caff 50-325-40Mg 1 tab PO Q4H PRN 12/12/18 12/12/18 [Fioricet 50-325-40] Citalopram Hydrobromide [CeleXA] 60 mg PO DAILY 12/12/18 12/12/18 Loratadine [Claritin] 10 mg PO DAILY 12/12/18 12/12/18 Previous Rx's Medication Instructions Recorded Atorvastatin [Lipitor] 80 mg PO HS tab 11/12/17 Metoprolol Tartrate [Lopressor] 25 mg PO BID #60 tab 11/12/17 Nitroglycerin Sl Tabs [Nitrostat] 0.4 mg SUBLINGUAL Q5M PRN #25 tab 11/12/17 metFORMIN HCL 1,000 mg PO BID #0 11/12/17 Aspirin 81 mg PO DAILY chew 12/15/17 Allergies Allergy/AdvReac Type Severity Reaction Status Date / Time Iodinated Contrast- Oral and Allergy Nausea & Verified 12/12/18 13:32 IV Dye Vomiting Review of Systems ROS Other: All systems not noted in ROS Statement are negative. <Lauri Sam - Last Filed: 12/12/18 17:09> ROS Other: All systems not noted in ROS Statement are negative. <Saundra Mohr - Last Filed: 12/12/18 19:03> ROS Statement: Those systems with pertinent positive or pertinent negative responses have been documented in the HPI. Past Medical History Past Medical History: CVA/TIA, Diabetes Mellitus, GERD/Reflux, Hyperlipidemia, Hypertension, Myocardial Infarction ([place]), Renal Disease, Rheumatoid Arthritis (RA) Additional Past Medical History / Comment(s): stroke apr 2017, migranes, diabetic neuropathy arms and legs, stage 2 kidney failure, PANCREATITIS, LEGALLY BLIND, enlarged prostate, trouble urinating Last Myocardial Infarction Date:: 2014? not sure History of Any Multi-Drug Resistant Organisms: None Reported Past Surgical History: No Surgical Hx Reported Additional Past Surgical History / Comment(s): EGD Past Anesthesia/Blood Transfusion Reactions: No Reported Reaction Additional Past Anesthesia/Blood Transfusion Reaction / Comment(s): never had anethesia Date of Last Stent Placement:: 11/11/2017 Past Psychological History: Anxiety, Depression Smoking Status: Never smoker - Past Family History Mother Family Medical History: CVA/TIA, Diabetes Mellitus, Hypertension Additional Family Medical History / Comment(s): Mother is 77yrs old. Father Family Medical History: CVA/TIA, Diabetes Mellitus, Myocardial Infarction ([place]) Additional Family Medical History / Comment(s): Father of a [place] in his 50s. <FaniSaundra Sharmaine - Last Filed: 12/12/18 19:03> General Exam Neurological exam: Present: alert, oriented X3, CN II-XII intact. Absent: motor sensory deficit Expanded Cranial nerves: Facial Sensation: Normal Sensory exam: Upper Extremity Light Touch: Normal, Lower Extremity Light Touch: Normal Motor strength exam: RUE: 5, LUE: 5, RLE: 5, LLE: 5 Eye Response: (4) open spontaneously Motor Response: (6) obeys commands Verbal Response: (5) oriented <Lauri Sam - Last Filed: 12/12/18 17:09> Limitations: no limitations <FaniJacquieSaundra L - Last Filed: 12/12/18 19:03> - General Exam Comments Initial Comments: GENERAL: Patient appears fatigued and disheveled.. HEAD: Atraumatic, normocephalic. EYES: Pupils equal round and reactive to light, extraocular movements intact, sclera anicteric, conjunctiva are normal. ENT: TMs normal, nares patent, oropharynx clear without exudates. Moist mucous membranes. NECK: Normal range of motion, supple without lymphadenopathy or JVD. LUNGS: Breath sounds clear to auscultation bilaterally and equal. No wheezes rales or rhonchi. HEART: Regular rate and rhythm without murmurs, rubs or gallops. ABDOMEN: Soft, generalized abdominal tenderness, normoactive bowel sounds. No guarding, no rebound. No masses appreciated. : Deferred EXTREMITIES: Normal range of motion, no pitting or edema. No clubbing or cyanosis. NEUROLOGICAL: Cranial nerves II through XII grossly intact. Normal speech, normal gait. PSYCH: Normal mood, normal affect. SKIN: Warm, Dry, normal turgor, no rashes or lesions noted. (Saundra Mohr) Course Vital Signs 12/12/18 12/12/18 12/12/18 13:03 13:24 13:30 Temperature 99 F Pulse Rate 84 81 73 Respiratory 18 20 20 Rate Blood Pressure 233/97 241/114 O2 Sat by Pulse 99 100 100 Oximetry 12/12/18 12/12/18 12/12/18 14:00 14:30 15:00 Temperature Pulse Rate 76 89 83 Respiratory 20 20 20 Rate Blood Pressure 241/114 230/112 230/113 O2 Sat by Pulse 100 97 98 Oximetry 12/12/18 12/12/18 12/12/18 15:30 16:00 16:30 Temperature Pulse Rate 73 85 82 Respiratory 18 18 20 Rate Blood Pressure 212/99 206/103 215/106 O2 Sat by Pulse 98 97 97 Oximetry 12/12/18 12/12/18 12/12/18 17:00 17:30 18:00 Temperature Pulse Rate 78 69 70 Respiratory 18 20 20 Rate Blood Pressure 230/109 201/96 179/104 O2 Sat by Pulse 97 97 98 Oximetry 12/12/18 18:30 Temperature Pulse Rate 67 Respiratory 20 Rate Blood Pressure 191/90 O2 Sat by Pulse 98 Oximetry EKG Findings - EKG Comments: EKG Findings:: Ventricular rate 76, DC interval 150, QTC 481. Normal sinus rhythm, prolonged QT. No ST segment changes. <Saundra Mohr - Last Filed: 12/12/18 19:03> Medical Decision Making - Lab Data Result diagrams: 12/12/18 13:18 12/12/18 13:18 <Lauri Sam - Last Filed: 12/12/18 17:09> - Lab Data Result diagrams: 12/12/18 13:18 12/12/18 13:18 <Saundra Mohr - Last Filed: 12/12/18 19:03> - Medical Decision Making Patient was reevaluated by myself, Dr. Sam. Patient was reevaluated and reexamined. I do agree with. Findings. This includes diagnostic interpretation and treatment plan. Patient resting comfortably in bed. Patient states headache has been waxing and waning over the past couple of weeks, gradually. He states headache is only moderate at this time. Nausea is mild at this time. Patient did not take his blood pressure medication today. Patient likely is having rebound hypertension from missing Catapres. Case was discussed in detail with Dr. Miramontes who did evaluate the patient. He did request specimen case with neurology. Case was discussed with Dr. Limon who was coming on serv ice in the morning. He did feel comfortable with keeping the patient and will evaluate patient in the morning. (Lauri Sam) Patient is a 53-year-old male complains of nausea and vomiting 3 days. Patient also admits to having a headache and elevated blood pressure since today. Patient denies taking his blood pressure medication this morning due to the nausea and vomiting. On exam patient has generalized abdominal tenderness. Neuro exam is normal. CBC and CMP are not impressive. Patient has elevated troponin at 0.043. CTA of brain shows no evidence of aneurysm. Patient's blood pressure has been elevated in the 220s during stay. Patient was given labetalol and Catapres. Most likely having rebound hypertension. Case was discussed with Dr. Sam. Patient will be admitted under Dr. Miramontes with consult to Dr. Limon. Last recorded blood pressure was 201/96. Patient is okay with this plan. (Saundra Mohr) - Lab Data Lab Results 12/12/18 12/12/18 12/12/18 Range/Units 13:18 13:18 13:18 WBC 7.7 (3.8-10.6) k/uL RBC 3.54 L (4.30-5.90) m/uL Hgb 10.0 L (13.0-17.5) gm/dL Hct 28.3 L (39.0-53.0) % MCV 80.0 D (80.0-100.0) fL MCH 28.3 (25.0-35.0) pg MCHC 35.4 (31.0-37.0) g/dL RDW 14.7 (11.5-15.5) % Plt Count 181 (150-450) k/uL Neutrophils % 83 % Lymphocytes % 9 % Monocytes % 6 % Eosinophils % 1 % Basophils % 0 % Neutrophils # 6.4 (1.3-7.7) k/uL Lymphocytes # 0.7 L (1.0-4.8) k/uL Monocytes # 0.5 (0-1.0) k/uL Eosinophils # 0.0 (0-0.7) k/uL Basophils # 0.0 (0-0.2) k/uL Poikilocytosis Slight PT 10.8 (9.0-12.0) sec INR 1.0 (<1.2) APTT 22.5 (22.0-30.0) sec Sodium 141 (137-145) mmol/L Potassium 3.9 (3.5-5.1) mmol/L Chloride 107 (98-107) mmol/L Carbon Dioxide 23 (22-30) mmol/L Anion Gap 11 mmol/L BUN 17 (9-20) mg/dL Creatinine 1.62 H (0.66-1.25) mg/dL Est GFR (CKD-EPI)AfAm 56 (>60 ml/min/1.73 sqM) Est GFR (CKD-EPI)NonAf 48 (>60 ml/min/1.73 sqM) Glucose 255 H (74-99) mg/dL Calcium 9.0 (8.4-10.2) mg/dL Total Bilirubin 0.6 (0.2-1.3) mg/dL AST 22 (17-59) U/L ALT 23 (21-72) U/L Alkaline Phosphatase 128 H (38-126) U/L Troponin I (0.000-0.034) ng/mL Total Protein 6.4 (6.3-8.2) g/dL Albumin 3.8 (3.5-5.0) g/dL Lipase 100 (23-300) U/L 12/12/18 Range/Units 13:18 WBC (3.8-10.6) k/uL RBC (4.30-5.90) m/uL Hgb (13.0-17.5) gm/dL Hct (39.0-53.0) % MCV (80.0-100.0) fL MCH (25.0-35.0) pg MCHC (31.0-37.0) g/dL RDW (11.5-15.5) % Plt Count (150-450) k/uL Neutrophils % % Lymphocytes % % Monocytes % % Eosinophils % % Basophils % % Neutrophils # (1.3-7.7) k/uL Lymphocytes # (1.0-4.8) k/uL Monocytes # (0-1.0) k/uL Eosinophils # (0-0.7) k/uL Basophils # (0-0.2) k/uL Poikilocytosis PT (9.0-12.0) sec INR (<1.2) APTT (22.0-30.0) sec Sodium (137-145) mmol/L Potassium (3.5-5.1) mmol/L Chloride (98-107) mmol/L Carbon Dioxide (22-30) mmol/L Anion Gap mmol/L BUN (9-20) mg/dL Creatinine (0.66-1.25) mg/dL Est GFR (CKD-EPI)AfAm (>60 ml/min/1.73 sqM) Est GFR (CKD-EPI)NonAf (>60 ml/min/1.73 sqM) Glucose (74-99) mg/dL Calcium (8.4-10.2) mg/dL Total Bilirubin (0.2-1.3) mg/dL AST (17-59) U/L ALT (21-72) U/L Alkaline Phosphatase (38-126) U/L Troponin I 0.043 H* (0.000-0.034) ng/mL Total Protein (6.3-8.2) g/dL Albumin (3.5-5.0) g/dL Lipase (23-300) U/L Disposition <Lauri Sam - Last Filed: 12/12/18 17:09> Decision Date: 12/12/18 Decision Time: 17:56 <Saundra Mohr - Last Filed: 12/12/18 19:03> Clinical Impression: Nausea & vomiting, Hypertensive urgency, Headache Disposition: ADMITTED IP TO THIS [facility] Condition: Stable
[2018-12-12] MEDS ORDERED: SODIUM CHLORIDE 0.9% 1,000 ML IV STA (13:54)
[2018-12-12 14:27] LABS: Partial Thromboplastin Time 22.5 sec (22.0-30.0); Prothrombin Time 10.8 sec (9.0-12.0)
[2018-12-12 14:31] LABS: Albumin 3.8 g/dL (3.5-5.0); Potassium 3.9 mmol/L (3.5-5.1); Total Bilirubin 0.6 mg/dL (0.2-1.3); Total Protein 6.4 g/dL (6.3-8.2)
[2018-12-12 14:34] LABS: Basophils % (A) 0 %; Eosinophils % (A) 1 %; HCT 28.3 % (39.0-53.0); Lymphocytes # (A) 0.7 k/uL (1.0-4.8); Lymphocytes % (A) 9 %; MCH 28.3 pg (25.0-35.0); MCHC 35.4 g/dL (31.0-37.0); Mean Platelet Volume 6.9; Monocytes # (A) 0.5 k/uL (0-1.0); Monocytes % (A) 6 %; Neutrophils # (A) 6.4 k/uL (1.3-7.7); Neutrophils % (A) 83 %; Platelet Count 181 k/uL (150-450); Poikilocytosis Slight; RBC 3.54 m/uL (4.30-5.90); RDW 14.7 % (11.5-15.5); WBC 7.7 k/uL (3.8-10.6)
--- NOTE | 2018-12-12 15:03 | CT ---
EXAMINATION TYPE: CT angio head DATE OF EXAM: 12/12/2018 2:52 PM COMPARISON: HISTORY: BAER and dizziness CT DLP: 2134.1 mGycm Automated exposure control for dose reduction was used. TECHNIQUE: Performed with IV Contrast, patient injected with 80 mL of Isovue 370. . There are 3-D post processed images. FINDINGS: The noncontrast images show some cerebral cortical atrophy. There is no mass effect nor midline shift . There is no sign of intracranial hemorrhage. There is arterial flow in the anterior middle and posterior cerebral arteries. There is arterial flow in the vertebrobasilar artery system. I see no evidence of intracranial aneurysm or neovascularity. There is no evidence of hemodynamic stenosis. There is normal contrast opacification of the venous si nuses. IMPRESSION: NEGATIVE CT ANGIOGRAM OF THE BRAIN. CEREBRAL CORTICAL ATROPHY.
[2018-12-12] MEDS ORDERED: SODIUM CHLORIDE 0.9% 500 ML 500 ML IV ONE (15:20)
[2018-12-12] MEDS: LABETALOL SYRINGE 5 MG/ML IVP STA ×2 (15:21→15:41)
[2018-12-12] MEDS ORDERED: LABETALOL 5 MG/ML VIAL MDV IVP STA (15:24)
[2018-12-12] MEDS ORDERED: LISINOPRIL 20 MG TAB PO STA (16:49)
[2018-12-12] MEDS ORDERED: cloNIDine HCL 0.2 MG TAB PO STA (16:49)
[2018-12-12] MEDS ORDERED: METOCLOPRAMIDE 5 MG/ML 2 ML VIAL IVP STA (17:11)
[2018-12-12] MEDS ORDERED: oxyCODONE-APAP 5-325MG 1 EACH TAB PO PRN (17:17)
[2018-12-12] MEDS ORDERED: ONDANSETRON 4 MG/2 ML VIAL IVP PRN (17:17)
[2018-12-12] MEDS ORDERED: NALOXONE 0.4 MG/ML 1 ML VIAL IV PRN (17:17)
[2018-12-12] MEDS ORDERED: traMADol 50 MG TAB PO PRN (17:17)
[2018-12-12] MEDS ORDERED: hydrALAZINE HCL 20 MG/ML 1 ML VIAL IVP PRN ×2 (17:23→17:37)
[2018-12-12] MEDS ORDERED: BUTALB/APAP/CAFF 50-325-40MG TAB PO PRN (17:27)
[2018-12-12] MEDS ORDERED: HYDROmorphone 0.5 MG/0.5 ML SYRINGE IVP PRN (17:29)
[2018-12-12] MEDS ORDERED: ALPRAZolam 0.25 MG TAB PO PRN (17:29)
[2018-12-12] MEDS ORDERED: TEMAZEPAM 15 MG CAP PO PRN (17:29)
--- NOTE | 2018-12-12 18:11 | XR ---
EXAMINATION TYPE: XR chest 1V portable DATE OF EXAM: 12/12/2018 COMPARISON: NONE HISTORY: Chest pain TECHNIQUE: Single frontal view of the chest is obtained. FINDINGS: There is no heart failure nor confluent pneumonic infiltrate. Costophrenic angles are jada r. There are chest leads. IMPRESSION: Normal chest. No change. No heart failure.
[2018-12-12] MEDS: TAMSULOSIN 0.4 MG CAP.ER.24H PO SCH (20:06)
[2018-12-12] MEDS: GABAPENTIN 300 MG CAP PO SCH (20:06)
[2018-12-12] MEDS: cloNIDine HCL 0.2 MG TAB PO SCH (20:06)
[2018-12-12] MEDS: LURASIDONE 40 MG TAB PO SCH (20:06)
[2018-12-12] MEDS: ATORVASTATIN 80 MG TAB PO SCH (20:06)
[2018-12-12] MEDS: DOCUSATE 100 MG CAP PO SCH (20:06)
[2018-12-12] MEDS: LISINOPRIL 20 MG TAB PO SCH (20:06)
[2018-12-12] MEDS: metFORMIN 500 MG TAB PO SCH (20:06)
[2018-12-12] MEDS: METOPROLOL TARTRATE 25 MG TAB PO SCH (20:06)
[2018-12-12] MEDS: SODIUM CHLORIDE 0.9% 1,000 ML IV SCH (20:07)
[2018-12-12] MEDS: PANTOPRAZOLE 40 MG/10 ML VIAL IVP SCH (20:09)
[2018-12-12 20:11] LABS: Glucose,Whole Blood 331 mg/dL (75-99)
[2018-12-12 21:24] LABS: Appearance,Urine Clear (Clear); Bilirubin,Urine Negative (Negative); Blood,Urine Moderate (Negative); Color,Urine Light Yellow; Glucose,Urine (UA) 4+ (Negative); Hyaline Casts,Urine 133 /lpf (0-2); Ketones,Urine Trace (Negative); Leukocyte Esterase,Urine Negative (Negative); Mucus,Urine Rare /hpf; Nitrite,Urine Negative (Negative); PH, Urine 6.5 (5.0-8.0); Protein,Urine 3+ (Negative); RBC,Urine 27 /hpf (0-5); Specific Gravity,Urine 1.028 (1.001-1.035); Squamous Epithelial Cell,Urine <1 /hpf (0-4); Urobilinogen,Urine <2.0 mg/dL (<2.0)
[2018-12-12] MEDS: INSULIN ASPART (NovoLOG) 100 UNIT/ML VIAL SQ SCH (21:53)
[2018-12-12 22:55] LABS: VBG PH 7.3 (7.31-7.41)
--- NOTE | 2018-12-12 23:19 | HP ---
HISTORY AND PHYSICAL CHIEF COMPLAINTS: Difficulty walking, nausea and accelerated hypertension, hypertensive urgency. HISTORY OF PRESENT ILLNESS: This 53-year-old woman with a past history of diabetes, CVA, TIA, hypertension, hyperlipidemia, myocardial infarction, rheumatoid arthritis, stroke, history of anxiety, depression, being followed by Dr. Scott in the outpatient setting was recently admitted to [facility] with acute stroke. Apparently, MRA showed multiple strokes and outpatient ROGERIO is being planned by cardiology and also Dr. Mccullough, who is the patient's neurologist, evaluating the patient for multiple lesions in the brain for possible lumbar puncture. The results are not available at this time. Currently the patient is presenting to [facility] at this time with progressive deterioration over the past several days. Patient had demonstrated diminished p.o. intake and subsequently today the patient had multiple episodes of vomiting. The patient unable to keep any medications down including the hypertensive medications. The patient came to [facility] and was admitted for further evaluation and treatment. The patient is followed by Dr. Scott in the outpatient setting. There is no history of any fever, rigor or chills. The patient also complaining of some unsteadiness of weight and generalized weakness at this time. PAST MEDICAL HISTORY: History of CVA/TIA, diabetes type 2, GERD, hypertension, hyperlipidemia, history of myocardial infarction. Renal disease, rheumatoid arthritis. MEDICATIONS ARE: Medications prior to admission include home medications are: 1. Januvia 100 mg p.o. q.a.m. 2. Metformin 1000 mg p.o. b.i.d. 3. Catapres 0.2 b.i.d. 4. Flomax 0.4 b.i.d. 5. Protonix 40 p.o. b.i.d. 6. Lopressor 25 mg p.o. b.i.d. 7. Latuda 40 mg p.o. q.h.s. 8. Claritin 10 mg p.o. daily. 9. Zestril 20 mg p.o. b.i.d. 10.Amaryl 1 mg p.o. q.a.m. 11.Gabapentin 600 mg p.o. b.i.d. 12.Colace 100 mg p.o. b.i.d. 13.Plavix 75 mg p.o. q.a.m. 14.Celexa 60 mg p.o. daily. 15.Fioricet 50/320 mg, 40 mg p.o. q.4 p.r.n. 16.Lipitor 40 mg q.h.s. 17.Aspirin 81 mg p.o. 18.Nitro 0.4 mg sublingual p.r.n. ALLERGIES: IODINATED CONTRAST DYES. FAMILY HISTORY: History of CVA/TIA, diabetes and hypertension in the family. SOCIAL HISTORY: No history of smoking. No history of alcohol. REVIEW OF SYSTEMS: ENT: No diminished vision. No diminished hearing. Cardio system: No angina or palpitations, otherwise mentioned earlier. RESPIRATION: No cough. GI as mentioned earlier. mentioned earlier. Nervous System: As mentioned earlier. ALLERGIES/IMMUNOLOGY: No asthma or hayfever. MUSCULOSKELETAL as mentioned earlier. HEMATOLOGY/ONCOLOGY: No history of anemia. ENDOCRINE: Diabetes mellitus as mentioned earlier. CONSTITUTIONAL: As mentioned earlier. PSYCHIATRY: As mentioned earlier. PHYSICAL EXAM: Patient is alert, oriented x3. Pulse 73, blood pressure elevated up to 241, 114 initially. Currently it is 206, 103, respiration 18, temperature normal, pulse ox 97% on room air. HEENT: Conjunctivae normal. Oral mucosa moist. NECK is no jugular venous distention. No carotid bruit. No lymph node enlargement. CARDIOVASCULAR system: S1, S2 muffled. No S3, no S4. RESPIRATORY: Breath sounds diminished in the bases. A few scattered rhonchi and crackles. ABDOMEN: Soft, nontender, obese. No mass palpable. LEGS: No edema. No swelling. NERVOUS SYSTEM: Higher functions as mentioned earlier, moves all 4 limbs. No focal motor or sensory deficits. Diffuse weakness and diffuse tremors also. No focal deficits were reported. Plantars are normal. LYMPHATICS: No lymph nodes palpable in the neck, axillae or groin. SKIN: No ulcer, rash or bleeding. JOINTS: No active deforming arthropathy. LABS: WBC 7.7, hemoglobin 10, sodium 140, potassium 3.9, and creatinine is 1.62 and glucose 255 and troponin 0.043. ASSESSMENT: 1. Accelerated hypertension and hypertensive urgency with possible change in mental status, acute hypertensive encephalopathy. 2. Rule out transient ischemic attack or stroke. 3. History of recent stroke. 4. Troponin 0.043 indeterminate rule out acute non ST-segment elevation myocardial infarction. 5. Elevated creatinine 162 showing possibly acute kidney failure prerenal factors. 6. Anemia, chronic, undetermined etiology. 7. History of cerebrovascular accident, transient ischemic attack. 8. Diabetes mellitus type 2. 9. Hypertension. 10.Hyperlipidemia. 11.History of rheumatoid arthritis. 12.History of migraine. 13.Diabetic peripheral neuropathy. 14.History of anxiety and depression. 15.Gait dysfunction. RECOMMENDATIONS AND DISCUSSION: In this 53-year-old gentleman who presented with multiple complex medical issues. We will monitor the patient closely, continue the current medications, symptomatic treatment. Otherwise at this time I recommend antiplatelet agents and closely monitor along with Neurology and Cardiology. Resume the home medications. p.r.n. medications. The blood pressure is not coming down. The patient will be admitted to ICU with consultation to Dr. Block and continue to monitor. Intravenous may be cleared. Otherwise, we will follow the patient closely. See orders for details. Further recommendations to follow. A copy of dictating being forwarded to Dr. Scott who is the primary physician. MMTIMOTHY / KARYN: [id number] /
[2018-12-13] MEDS: ACETAMINOPHEN TAB 325 MG TAB PO PRN (03:28)
[2018-12-13 05:57] LABS: Glucose,Whole Blood 288 mg/dL (75-99)
[2018-12-13] MEDS: INSULIN ASPART (NovoLOG) 100 UNIT/ML VIAL SQ SCH ×4 (06:46→21:35)
[2018-12-13 06:56] LABS: Basophils % (A) 0 %; Eosinophils % (A) 0 %; HCT 23.4 % (39.0-53.0); Lymphocytes # (A) 0.8 k/uL (1.0-4.8); Lymphocytes % (A) 10 %; MCH 27.2 pg (25.0-35.0); MCHC 32.2 g/dL (31.0-37.0); MCV 84.6 fL (80.0-100.0); Mean Platelet Volume 6.5; Monocytes # (A) 0.5 k/uL (0-1.0); Monocytes % (A) 7 %; Neutrophils # (A) 6.5 k/uL (1.3-7.7); Neutrophils % (A) 82 %; Platelet Count 158 k/uL (150-450); RBC 2.76 m/uL (4.30-5.90); WBC 7.9 k/uL (3.8-10.6)
[2018-12-13 07:02] LABS: Calcium 7.8 mg/dL (8.4-10.2); Potassium 4.4 mmol/L (3.5-5.1)
[2018-12-13] MEDS: GLIMEPIRIDE 1 MG TAB PO SCH (07:06)
[2018-12-13 07:11] LABS: HGB 7.5 gm/dL (13.0-17.5)
[2018-12-13] MEDS: LINAGLIPTIN 5 MG TABLET PO SCH (10:52)
[2018-12-13] MEDS: CLOPIDOGREL 75 MG TAB PO SCH (10:52)
[2018-12-13] MEDS: TAMSULOSIN 0.4 MG CAP.ER.24H PO SCH ×2 (10:52→21:50)
[2018-12-13] MEDS: LISINOPRIL 20 MG TAB PO SCH ×2 (10:52→21:51)
[2018-12-13] MEDS: metFORMIN 500 MG TAB PO SCH ×2 (10:52→21:50)
[2018-12-13] MEDS: METOPROLOL TARTRATE 25 MG TAB PO SCH (10:52)
[2018-12-13] MEDS: LORATADINE 10 MG TAB PO SCH (10:53)
[2018-12-13] MEDS: GABAPENTIN 300 MG CAP PO SCH ×2 (10:53→21:51)
[2018-12-13] MEDS: DOCUSATE 100 MG CAP PO SCH ×2 (10:53→21:51)
[2018-12-13] MEDS: PANTOPRAZOLE 40 MG/10 ML VIAL IVP SCH (10:53)
[2018-12-13] MEDS: cloNIDine HCL 0.2 MG TAB PO SCH ×2 (10:53→21:50)
--- NOTE | 2018-12-13 11:28 | P.CRDCN ---
History of Present Illness Consult date: 12/13/18 Requesting physician: Marylou Campuzano Chief complaint: Nausea and vomiting History of present illness: This is a 53-year-old gentleman who follows with Dr. kathia leon in the office. He has a known history of diabetes, hypertension, rheumatoid arthritis, hyperlipidemia, family history of coronary artery disease, history of prior CVA, underwent a cardiac catheterization in October of last year with subsequent angio plasty and stenting of a chronically diseased diffusely calcified mid and proximal circumflex artery. He presents to the hospital on this occasion with symptoms of progressive weakness with associated episodes of vomiting and decreased intake at home. He has been able to take many of his medications including his antihypertensives because of the persistent nausea and vomiting. The TA of the brain was performed which was negative. EKG shows a normal sinus rhythm with no acute changes. Chest x-ray normal. On arrival to the hospital, blood pressure 233/97, heart rate in the 80s, temperature 90.9, 99% on room air. Blood Pressure this morning 140/70 with a heart rate in the 70s, 95% on room air. Admission labs, blood cell count 7.7, hemoglobin 10.0, platelet count 181, sodium 141, potassium 3.9, BUN 17 and creatinine 1.6. Troponin 0.043. This morning's labs, white blood cell count 7.9, hemoglobin down to 7.5, platelet count 158. Blood gases were obtained, pH 7.3, pCO2 47 and HCO3 22. Sodium 138, potassium 4.4, BUN 24 and creatinine 2.3. Past Medical History Past Medical History: CVA/TIA, Diabetes Mellitus, GERD/Reflux, Hyperlipidemia, Hypertension, Myocardial Infarction ([place]), Renal Disease, Rheumatoid Arthritis ([place]) Additional Past Medical History / Comment(s): stroke apr 2017, migranes, diabetic neuropathy arms and legs, stage 2 kidney failure, PANCREATITIS, LEGALLY BLIND, enlarged prostate, trouble urinating Last Myocardial Infarction Date:: 2014? not sure History of Any Multi-Drug Resistant Organisms: None Reported Past Surgical History: No Surgical Hx Reported Additional Past Surgical History / Comment(s): EGD Past Anesthesia/Blood Transfusion Reactions: No Reported Reaction Additional Past Anesthesia/Blood Transfusion Reaction / Comment(s): never had anethesia Date of Last Stent Placement:: 11/11/2017 Past Psychological History: Anxiety, Depression Smoking Status: Never smoker - Past Family History Mother Family Medical History: CVA/TIA, Diabetes Mellitus, Hypertension Additional Family Medical History / Comment(s): Mother is 77yrs old. Father Family Medical History: CVA/TIA, Diabetes Mellitus, Myocardial Infarction ([place]) Additional Family Medical History / Comment(s): Father of a [place] in his 50s. Medications and Allergies Home Medications Medication Instructions Recorded Confirmed Type Docusate Sodium [Dok] 100 mg PO BID 09/12/17 12/12/18 History Gabapentin 600 mg PO BID 09/12/17 12/12/18 History Glimepiride [Amaryl] 1 mg PO QAM 09/12/17 12/12/18 History Lisinopril [Zestril] 20 mg PO BID 09/12/17 12/12/18 History Lurasidone [Latuda] 40 mg PO HS 09/12/17 12/12/18 History cloNIDine HCL [Catapres] 0.2 mg PO BID 09/12/17 12/12/18 History sitaGLIPtin [Januvia] 100 mg PO QAM 09/12/17 12/12/18 History Pantoprazole [Protonix] 40 mg PO BID 11/05/17 12/12/18 History Tamsulosin [Flomax] 0.4 mg PO BID 11/05/17 12/12/18 History Atorvastatin [Lipitor] 80 mg PO HS tab 11/12/17 12/12/18 Rx Metoprolol Tartrate [Lopressor] 25 mg PO BID #60 tab 11/12/17 12/12/18 Rx Nitroglycerin Sl Tabs [Nitrostat] 0.4 mg SUBLINGUAL Q5M PRN #25 tab 11/12/17 10/19/18 Rx metFORMIN HCL 1,000 mg PO BID #0 11/12/17 12/12/18 Rx Clopidogrel [Plavix] 75 mg PO QAM 12/09/17 12/12/18 History Aspirin 81 mg PO DAILY chew 12/15/17 12/12/18 Rx Butalb/APAP/Caff 50-325-40Mg 1 tab PO Q4H PRN 12/12/18 12/12/18 History [Fioricet 50-325-40] Citalopram Hydrobromide [CeleXA] 60 mg PO DAILY 12/12/18 12/12/18 History Loratadine [Claritin] 10 mg PO DAILY 12/12/18 12/12/18 History Mupirocin 2% Oint [Bactroban 2% 1 applic TOPICAL BID 12/13/18 12/13/18 History Oint] Triamcinolone 0.1% Ointment 1 applicate TOPICAL BID 12/13/18 12/13/18 History [Kenalog 0.1% Ointment] Allergies Allergy/AdvReac Type Severity Reaction Status Date / Time Iodinated Contrast- Oral and Allergy Nausea & Verified 12/12/18 13:32 IV Dye Vomiting Physical Exam Vitals: Vital Signs Temp Pulse Pulse Resp BP BP Pulse Ox 12/13/18 04:00 97.7 F 72 16 145/72 95 12/13/18 00:00 98 F 70 17 130/67 94 L 12/12/18 20:00 99.9 F H 74 16 189/79 98 12/12/18 18:30 99.9 F H 67 74 17 191/90 189/79 98 12/12/18 18:00 70 20 179/104 98 12/12/18 17:30 69 20 201/96 97 12/12/18 17:00 78 18 230/109 97 12/12/18 16:30 82 20 215/106 97 12/12/18 16:00 85 18 206/103 97 12/12/18 15:30 73 18 212/99 98 12/12/18 15:00 83 20 230/113 98 12/12/18 14:30 89 20 230/112 97 12/12/18 14:00 76 20 241/114 100 12/12/18 13:30 73 20 241/114 100 12/12/18 13:24 81 20 100 12/12/18 13:03 99 F 84 18 233/97 99 Intake and Output 12/12/18 12/13/18 12/13/18 22:59 06:59 14:59 Intake Total 10 20 240 Balance 10 20 240 Intake: IV 10 20 Invasive Line 1 10 20 Oral 240 Other: Voiding Method Toilet Toilet # Voids 2 Weight 83.4 kg PHYSICAL EXAMINATION: GENERAL: 53-year-old gentleman in no acute distress at the time of my examination HEENT: Head is atraumatic, normocephalic. Pupils equal, round. Sclera anicteric. Conjunctiva are clear. Mucous membranes of the mouth are moist. Neck is supple. There is no elevated jugular venous pressure. No Carotid bruit is heard. HEART EXAMINATION: Heart S1, S2 normal. No murmur or gallop heard. CHEST EXAMINATION: Lungs reveal some coarse crackles that clear with cough. ABDOMEN: Soft, nontender. Bowel sounds are heard. No organomegaly noted. EXTREMITIES: 2+ peripheral pulses with no evidence of peripheral edema and no calf tenderness noted. NEUROLOGIC patient is awake, alert and oriented 3 . . Results 12/13/18 05:51 12/13/18 05:51 Cardiac Enzymes 12/12/18 12/12/18 Range/Units 13:18 13:18 AST 22 (17-59) U/L Troponin I 0.043 H* (0.000-0.034) ng/mL Coagulation 12/12/18 Range/Units 13:18 PT 10.8 (9.0-12.0) sec APTT 22.5 (22.0-30.0) sec CBC 12/12/18 12/13/18 Range/Units 13:18 05:51 WBC 7.7 7.9 (3.8-10.6) k/uL RBC 3.54 L 2.76 L (4.30-5.90) m/uL Hgb 10.0 L 7.5 L D (13.0-17.5) gm/dL Hct 28.3 L 23.4 L (39.0-53.0) % Plt Count 181 158 (150-450) k/uL Comprehensive Metabolic Panel 12/12/18 12/13/18 Range/Units 13:18 05:51 Sodium 141 138 (137-145) mmol/L Potassium 3.9 4.4 (3.5-5.1) mmol/L Chloride 107 108 H (98-107) mmol/L Carbon Dioxide 23 24 (22-30) mmol/L BUN 17 24 H (9-20) mg/dL Creatinine 1.62 H 2.33 H (0.66-1.25) mg/dL Glucose 255 H 256 H (74-99) mg/dL Calcium 9.0 7.8 L (8.4-10.2) mg/dL AST 22 (17-59) U/L ALT 23 (21-72) U/L Alkaline Phosphatase 128 H (38-126) U/L Total Protein 6.4 (6.3-8.2) g/dL Albumin 3.8 (3.5-5.0) g/dL Current Medications Generic Name Dose Route Start Last Admin Trade Name Freq PRN Reason Stop Dose Admin Acetaminophen 650 mg 12/12/18 17:17 12/13/18 03:28 Tylenol Tab PO 650 mg Q6HR PRN Administration Mild Pain or Fever > 100.5 Acetaminophen/Butalbital/Caffeine 1 each 12/12/18 17:27 Fioricet 50-325-40 PO Q4H PRN Migraine Headache Alprazolam 0.25 mg 12/12/18 17:29 Xanax PO TID PRN Anxiety Atorvastatin Calcium 80 mg 12/12/18 21:00 12/12/18 20:06 Lipitor PO 80 mg HS JAD Administration Clonidine 0.2 mg 12/12/18 21:00 12/12/18 20:06 Catapres PO 0.2 mg BID JAD Administration Clopidogrel Bisulfate 75 mg 12/13/18 09:00 Plavix PO QAM JAD Docusate Sodium 100 mg 12/12/18 21:00 12/12/18 20:06 Colace PO 100 mg BID JAD Administration Gabapentin 600 mg 12/12/18 21:00 12/12/18 20:06 Neurontin PO 600 mg BID JAD Administration Glimepiride 1 mg 12/13/18 07:30 12/13/18 07:06 Amaryl PO 1 mg [id number] JAD Administration Hydralazine HCl 10 mg 12/12/18 17:23 Apresoline IVP ONCE PRN If BP > 185 Hydralazine HCl 10 mg 12/12/18 17:37 Apresoline IVP Q4HR PRN Blood Pressure - High Hydromorphone HCl 0.5 mg 12/12/18 17:29 Dilaudid IVP Q6HR PRN Severe Pain Sodium Chloride 1,000 mls @ 50 mls/hr 12/12/18 17:30 12/12/18 20:07 Saline 0.9% IV 50 mls/hr .Q20H JAD Administration Insulin Aspart 0 unit 12/12/18 21:00 12/13/18 06:46 Novolog SQ 5 unit ACHS AJD Administration Protocol Linagliptin 5 mg 12/13/18 09:00 Tradjenta PO QAM JAD Lisinopril 40 mg 12/12/18 21:00 12/12/18 20:06 Zestril PO 40 mg BID JAD Administration Loratadine 10 mg 12/13/18 09:00 Claritin PO DAILY JAD Lurasidone HCl 40 mg 12/12/18 21:00 12/12/18 20:06 Latuda PO 40 mg HS JAD Administration Metformin HCl 1,000 mg 12/12/18 21:00 12/12/18 20:06 Glucophage PO 1,000 mg BID JAD Administration Metoprolol Tartrate 25 mg 12/12/18 21:00 12/12/18 20:06 Lopressor PO 25 mg BID JAD Administration Naloxone HCl 0.2 mg 12/12/18 17:17 Narcan IV Q2M PRN Opioid Reversal Ondansetron HCl 4 mg 12/12/18 17:17 12/12/18 23:15 Zofran IVP 4 mg Q8HR PRN Administration Nausea And Vomiting Oxycodone/Acetaminophen 1 each 12/12/18 17:17 Percocet 5-325 PO Q4HR PRN Severe Pain Pantoprazole Sodium 40 mg 12/12/18 17:30 12/12/18 20:09 Protonix IVP 40 mg DAILY JAD Administration Tamsulosin HCl 0.4 mg 12/12/18 21:00 12/12/18 20:06 Flomax PO 0.4 mg BID JAD Administration Temazepam 15 mg 12/12/18 17:29 Restoril PO HS PRN Insomnia Tramadol HCl 50 mg 12/12/18 17:17 Ultram PO Q6H PRN Moderate Pain Intake and Output 12/12/18 12/13/18 12/13/18 22:59 06:59 14:59 Intake Total 10 20 240 Balance 10 20 240 Intake: IV 10 20 Invasive Line 1 10 20 Oral 240 Other: Voiding Method Toilet Toilet # Voids 2 Weight 83.4 kg 12/13/18 05:51 12/13/18 05:51 EKG Interpretations (text) EKG shows a normal sinus rhythm with no acute changes. Assessment and Plan Plan: Assessment and plan #1 accelerated hypertension #2 mental status change, rule out TIA, recurrent CVA #3 history of recent CVA #4 persistent nausea and vomiting with associated decreased appetite #5 diabetes #6 hyperlipidemia #7 rheumatoid arthritis #8 history of anxiety or depression #9 abnormal troponin, patient denies having any chest discomfort #10 coronary artery disease with prior PCI, patient underwent PTCA and stenting of a dominant mid and proximal circumflex artery in 2018 #11 anemia Plan We'll obtain an echocardiogram with Doppler study. Blood pressure this morning 158/80. We will increase the dose of beta ronni, for more optimal heart rate control. Obtain 2 subsequent troponins. Patient did have a stent placed in October of last year, continues to be on Plavix, no aspirin. Further recommendations to follow. DNP note has been reviewed, I agree with a documented findings and plan of care. Patient was seen and examined.
--- NOTE | 2018-12-13 11:35 | P.CNNES ---
History of Present Illness Consult date: 12/13/18 Requesting physician: Saundra Mohr Reason for Consult: Headache, h/o CVA Chief complaint: "I have nausea and a headache" History of Present Illness: This is a 53-year-old left-handed male with a history of hypertension, diabetes mellitus, hyperlipidemia, rheumatoid arthritis with a recent history of multiple strokes, details unknown. Patient was hospitalized and also hospital. He is followed by Dr. Thomas in neurology locally who reportedly plans on obtaining a trans-esophageal echocardiogram. There was also mentioning of multiple lesions in the brain and potential need for lumbar puncture. Unfortunately, I do not have his previous neuro records for review prior to this consultation. Patient states that as a result of his stroke, he had left facial droop and left-sided weakness. He has been working diligently with outpatient therapy and regained a lot of his strength on the left side. He still has a mild facial droop but no difficulty with talking or swallowing. He does walk with a cane for safety. Patient does not currently drive. He states that he had blood into the back of his outlined previously which affected his vision. He does not remember if his recent stroke cost a field cut or not. All he remembers is the left-sided weakness and hand tremors since his stroke. Over the past 2-3 weeks, patient has been having progressively worsening headache, nausea and vomiting. A few days ago, he was grocery shopping with his and was too weak to carry his groceries. When he got home, he was weak and nauseated and actually vomited. When he presented to the emergency room, he was found to have a systolic blood pressure well into the 200s. The ER physician informed me hat he was on Catapres but that he had not put on his patch, raising the concern of rebound hypertension. Since he was admitted to the hospital, his blood pressure is slowly being brought down, he does note an improvement in his headache and nausea, but they have not resolved. Patient states that he has chronic decreased vision bilaterally due to which he does not drive. Neurologically, patient denies decreased level or loss of consciousness, diplopia, amaurosis, facial numbness or new facial droop, vertigo, dysarthria, dysphagia, aphasia, new focal numbness/weakness not mentioned above, bowel/bladder incontinence and ataxia. Review of Systems 14-point ROS performed and as per HPI. Past Medical History Past Medical History: CVA/TIA, Diabetes Mellitus, GERD/Reflux, Hyperlipidemia, Hypertension, Myocardial Infarction ([place]), Renal Disease, Rheumatoid Arthritis ([place]) Additional Past Medical History / Comment(s): stroke apr 2017, migranes, diabetic neuropathy arms and legs, stage 2 kidney failure, PANCREATITIS, LEGALLY BLIND, enlarged prostate, trouble urinating Last Myocardial Infarction Date:: 2014? not sure History of Any Multi-Drug Resistant Organisms: None Reported Past Surgical History: No Surgical Hx Reported Additional Past Surgical History / Comment(s): EGD Past Anesthesia/Blood Transfusion Reactions: No Reported Reaction Additional Past Anesthesia/Blood Transfusion Reaction / Comment(s): never had anethesia Date of Last Stent Placement:: 11/11/2017 Past Psychological History: Anxiety, Depression Smoking Status: Never smoker - Past Family History Mother Family Medical History: CVA/TIA, Diabetes Mellitus, Hypertension Additional Family Medical History / Comment(s): Mother is 77yrs old. Father Family Medical History: CVA/TIA, Diabetes Mellitus, Myocardial Infarction ([place]) Additional Family Medical History / Comment(s): Father of a [place] in his 50s. Medications and Allergies Home Medications Medication Instructions Recorded Confirmed Type Docusate Sodium [Dok] 100 mg PO BID 09/12/17 12/12/18 History Gabapentin 600 mg PO BID 09/12/17 12/12/18 History Glimepiride [Amaryl] 1 mg PO QAM 09/12/17 12/12/18 History Lisinopril [Zestril] 20 mg PO BID 09/12/17 12/12/18 History Lurasidone [Latuda] 40 mg PO HS 09/12/17 12/12/18 History cloNIDine HCL [Catapres] 0.2 mg PO BID 09/12/17 12/12/18 History sitaGLIPtin [Januvia] 100 mg PO QAM 09/12/17 12/12/18 History Pantoprazole [Protonix] 40 mg PO BID 11/05/17 12/12/18 History Tamsulosin [Flomax] 0.4 mg PO BID 11/05/17 12/12/18 History Atorvastatin [Lipitor] 80 mg PO HS tab 11/12/17 12/12/18 Rx Metoprolol Tartrate [Lopressor] 25 mg PO BID #60 tab 11/12/17 12/12/18 Rx Nitroglycerin Sl Tabs [Nitrostat] 0.4 mg SUBLINGUAL Q5M PRN #25 tab 11/12/17 10/19/18 Rx metFORMIN HCL 1,000 mg PO BID #0 11/12/17 12/12/18 Rx Clopidogrel [Plavix] 75 mg PO QAM 12/09/17 12/12/18 History Aspirin 81 mg PO DAILY chew 12/15/17 12/12/18 Rx Butalb/APAP/Caff 50-325-40Mg 1 tab PO Q4H PRN 12/12/18 12/12/18 History [Fioricet 50-325-40] Citalopram Hydrobromide [CeleXA] 60 mg PO DAILY 12/12/18 12/12/18 History Loratadine [Claritin] 10 mg PO DAILY 12/12/18 12/12/18 History Mupirocin 2% Oint [Bactroban 2% 1 applic TOPICAL BID 12/13/18 12/13/18 History Oint] Triamcinolone 0.1% Ointment 1 applicate TOPICAL BID 12/13/18 12/13/18 History [Kenalog 0.1% Ointment] Allergies Allergy/AdvReac Type Severity Reaction Status Date / Time Iodinated Contrast- Oral and Allergy Nausea & Verified 12/12/18 13:32 IV Dye Vomiting Physical Examination - Vital Signs Vital Signs: Vital Signs Temp Pulse Pulse Resp BP BP Pulse Ox 12/13/18 04:00 97.7 F 72 16 145/72 95 12/13/18 00:00 98 F 70 17 130/67 94 L 12/12/18 20:00 99.9 F H 74 16 189/79 98 12/12/18 18:30 99.9 F H 67 74 17 191/90 189/79 98 12/12/18 18:00 70 20 179/104 98 12/12/18 17:30 69 20 201/96 97 12/12/18 17:00 78 18 230/109 97 12/12/18 16:30 82 20 215/106 97 12/12/18 16:00 85 18 206/103 97 12/12/18 15:30 73 18 212/99 98 06/23/19 15:00 83 20 230/113 98 12/12/18 14:30 89 20 230/112 97 12/12/18 14:00 76 20 241/114 100 12/12/18 13:30 73 20 241/114 100 12/12/18 13:24 81 20 100 12/12/18 13:03 99 F 84 18 233/97 99 Intake and Output 12/12/18 12/13/18 12/13/18 22:59 06:59 14:59 Intake Total 10 20 240 Balance 10 20 240 Intake: IV 10 20 Invasive Line 1 10 20 Oral 240 Other: Voiding Method Toilet Toilet # Voids 2 Weight 83.4 kg Gen NAD Pleasant and cooperative HEENT NCAT Sclera without icterus O/P clear Neck Supple No carotid bruit Cor RRR no m/r/g Lungs CTAB Abd Soft NTND +BS Ext Warm to touch No edema Neuro MS A+Ox4 Normal fluency Able to follow all commands CN PERRL Blinks to threat bilaterally no APD EOMI no nystagmus or FENG Decreased left NLF Mass[place]'s symmetric Hearing intact to normal voice bilaterally Speech not dysarthric Equal elevation of palate Tongue midline Sym shrug and SCM bilaterally Motor Normal bulk/tone Mild left pronator drift No leg drift Mild action tremor in hands Strength 5/5 right 5-/5 left Sens Intact to LT x4 No neglect or extinction Coord No dysmetria on FTN bilaterally DTRs 2+/4 sym throughout Toes downgoing bilaterally No clonus at achilles Gait Deferred NIHSS [address] and CTA Head 12/12/18. Mild cerebral atrophy. No intracranial hemorrhage or other acute intracranial abnormalities. There is no intracranial large vessel occlusion or aneurysm. I have reviewed all neuro images myself. - Laboratory Findings CBC and BMP: 12/13/18 05:51 12/13/18 05:51 Abnormal Lab Findings: Abnormal Labs 12/12/18 12/12/18 12/12/18 13:18 13:18 13:18 RBC 3.54 L Hgb 10.0 L Hct 28.3 L Lymphocytes # 0.7 L VBG pH VBG HCO3 Chloride BUN Creatinine 1.62 H Glucose 255 H POC Glucose (mg/dL) Calcium Alkaline Phosphatase 128 H Troponin I 0.043 H* Urine Protein Urine Glucose (UA) Urine Ketones Urine Blood Urine RBC Hyaline Casts Urine Mucus 12/12/18 12/12/18 12/12/18 20:10 20:30 22:43 RBC Hgb Hct Lymphocytes # VBG pH 7.30 L VBG HCO3 22 L Chloride BUN Creatinine Glucose POC Glucose (mg/dL) 331 H Calcium Alkaline Phosphatase Troponin I Urine Protein 3+ H Urine Glucose (UA) 4+ H Urine Ketones Trace H Urine Blood Moderate H Urine RBC 27 H Hyaline Casts 133 H Urine Mucus Rare H 12/13/18 12/13/18 12/13/18 05:51 05:51 05:56 RBC 2.76 L Hgb 7.5 L D Hct 23.4 L Lymphocytes # 0.8 L VBG pH VBG HCO3 Chloride 108 H BUN 24 H Creatinine 2.33 H Glucose 256 H POC Glucose (mg/dL) 288 H Calcium 7.8 L Alkaline Phosphatase Troponin I Urine Protein Urine Glucose (UA) Urine Ketones Urine Blood Urine RBC Hyaline Casts Urine Mucus Assessment and Plan Assessment: 1. Headache, N/V, likely due to malignant hypertension, r/o PRES. 2. Recent history of multiple strokes. Plan: -BP management per primary team. May bring BP down to normotensive range as he presents with no acute (or new) focal neuro sx. -MRI brain wo khushi r/o PRES given persistent headache and N/V. -CT and CTA Head reviewed. -Clopidogrel 75mg/day. -Statin therapy. -Goals BP <130, hga1c <7.0 and LDL <70. -Obtain medical records from outpatient neurology Dr. Thomas' office. Will hold on ordering further stroke work-up until records reviewed. -Will follow up. -d/w patient. All questions answered. Thank you for this consultation. Please call with ?. Time with Patient: Greater than 30 (Time spent in direct patient care, greater than 50% of which was spent in [id number] counseling coordination of care: 70 minutes.)
[2018-12-13 12:04] LABS: Glucose,Whole Blood 180 mg/dL (75-99)
[2018-12-13] MEDS: SODIUM CHLORIDE 0.9% 1,000 ML IV SCH (12:31)
--- NOTE | 2018-12-13 13:13 | ECHOF ---
Referral Reason:htn MEASUREMENTS -------- HEIGHT: 175.3 cm WEIGHT: 83.0 kg BP: 159/80 IVSd: 1.3 cm (0.6 - 1.1) LVIDd: 3.1 cm (3.9 - 5.3) LVPWd: 1.4 cm (0.6 - 1.1) IVSs: 1.8 cm LVIDs: 2.0 cm LVPWs: 1.6 cm LAESV Index (A-L): 29.52 ml/m Ao Diam: 3.4 cm (2.0 - 3.7) AV Cusp: 2.0 cm (1.5 - 2.6) LA Diam: 3.3 cm (2.7 - 3.8) MV EXCURSION: 14.230 mm (> 18.000) MV EF SLOPE: 73 mm/s (70 - 150) EPSS: 0.7 cm MV E En: 0.84 m/s MV DecT: 155 ms MV A En: 1.11 m/s MV E/A Ratio: 0.75 RAP: 5.00 mmHg RVSP: 23.73 mmHg FINDINGS -------- Sinus rhythm. This was a technically good study. The left ventricular size is normal. There is mild concentric left ventricular hypertrophy. Overa ll left ventricular systolic function is normal with, an EF between 55 - 60 %. The right ventricle is normal in size. LA is midly dilated 29-33ml/m2. The right atrial size is normal. Interatrial and interventricular septum intact. The aortic valve is trileaflet, and appears structurally normal. No aortic stenosis or regurgitation. The mitral valve leaflets are mildly thickened. Moderate mitral regurgitation is present. Mild tricuspid regurgitation present. Right ventricular systolic pressure is normal at < 35 mmHg. There is no pulmonic regurgitation present. The aortic root size is normal. Normal inferior vena cava with normal inspiratory collapse consistent with estimated right atrial pre ssure of 5 mmHg. There is no pericardial effusion. CONCLUSIONS -------- 1. Sinus rhythm. 2. This was a technically good study. 3. The left ventricular size is normal. 4. There is mild concentric left ventricular hypertrophy. 5. Overall left ventricular systolic function is normal with, an EF between 55 - 60 %. 6. LA is midly dilated 29-33ml/m2. 7. The aortic valve is trileaflet, and appears structurally normal. No aortic stenosis or regurgitati on. 8. The mitral valve leaflets are mildly thickened. 9. Moderate mitral regurgitation is present. 10. Mild tricuspid regurgitation present. 11. Right ventricular systolic pressure is normal at < 35 mmHg. 12. There is no pulmonic regurgitation present. 13. The aortic root size is normal. 14. Normal inferior vena cava with normal inspiratory collapse consistent with estimated right atrial pressure of 5 mmHg. 15. There is no pericardial effusion. CATEGORY MANAGER: Kendy Valle RDCS
[2018-12-13 15:29] LABS: Hemoglobin A1C 9.1 % (4.0-6.0)
[2018-12-13 16:50] LABS: Glucose,Whole Blood 76 mg/dL (75-99)
--- NOTE | 2018-12-13 17:17 | PN ---
PROGRESS NOTE DATE OF SERVICE: 12/13/2018 This 53-year-old gentleman who was admitted with difficulty in walking, nausea, accelerated hypertension, hypertensive urgency, is being closely monitored at this time. The CT scan of the brain did not show any acute abnormality. The patient is followed by Dr. Scott in the outpatient setting. The patient has a history of multiple strokes and has been evaluated in [facility], also. Past medical history reviewed. REVIEW OF SYSTEMS: CARDIOVASCULAR SYSTEM: No angina, palpitations. RESPIRATORY SYSTEM: As mentioned earlier. GI: No nausea, vomiting. : No dysuria or retention. NERVOUS SYSTEM: No numbness, weakness. CURRENT MEDICATIONS: Reviewed. They include: 1. Tylenol 650 q.6 p.r.n. 2. Fioricet 50/325/40 one p.o. q.4 p.r.n. 3. Xanax 0.25 t.i.d. 4. Lipitor 80 mg p.o. at bedtime. 5. Catapres 0.2 b.i.d. 6. Plavix 75 mg each morning. 7. Colace 100 mg b.i.d. 8. Neurontin 600 mg b.i.d. 9. Amaryl before breakfast. 10.Apresoline 10 mg p.r.n. 11.Dilaudid 0.5 mg q.6 p.r.n. 12.NovoLog scale. 13.Tradjenta 5 mg each morning. 14.Zestril 40 mg p.o. b.i.d. 15.Claritin 10 mg p.o. daily. 16.Latuda 40 mg at bedtime. 17.Glucophage 1000 mg p.o. b.i.d. 18.Lopressor 50 mg p.o. b.i.d. 19.Narcan. 20.Zofran. 21.Percocet 5 mg q.4 p.r.n. 22.Protonix 40 mg IV daily. 23.Flomax 0.4 p.o. b.i.d. 24.Restoril 15 mg at bedtime p.r.n. 25.Ultram 50 mg q.6 p.r.n. PHYSICAL EXAMINATION: Patient is alert, oriented x3. Pulse 72, blood pressure 140/72, respiration 16, temperature 97.7, pulse ox 94% on room. HEENT: Conjunctivae normal. Oral mucosa moist. NECK: No jugular venous distention. No carotid bruit. No lymph node enlargement. CARDIOVASCULAR SYSTEM: S1, S2 muffled. No S3. No S4. RESPIRATORY SYSTEM: Breath sounds diminished at the bases. A few scattered rhonchi and crackles. ABDOMEN: Soft, obese, non-tender. LEGS: No edema. No swelling. NERVOUS SYSTEM: Higher functions as mentioned earlier. Moves all 4 limbs. No focal motor or sensory deficit. Otherwise, minimal diffuse weakness noted. No signs of cerebellar dysfunction. SKIN: No ulcer, rash, bleeding. JOINTS: No active deforming arthropathy. LABS: WBC 7.9, hemoglobin 7.5, sodium 138, potassium 4.4. Troponin 0.046. Glucose 258. Creatinine is 2.33. UA noted. ASSESSMENT: 1. Accelerated hypertension and hypertensive urgency with change in mental status, acute hypertensive encephalopathy; rule out PRES. 2. Rule out transient ischemic attack or stroke. 3. History of recent multiple strokes. 4. Troponin 0.043, indeterminate. Rule out acute [id number]-HE-rmkbkph-elevation myocardial infarction. 5. Elevated creatinine of 1.62 showing possible acute kidney failure, prerenal, with multiple prerenal factors. 6. Anemia, chronic, of undetermined etiology. 7. History of cerebrovascular accident, transient ischemic attack. 8. Diabetes mellitus, type 2. 9. Hypertension. 10.Hyperlipidemia. 11.History of rheumatoid arthritis. 12.History of migraine. 13.Diabetic peripheral neuropathy. 14.History of anxiety, depression. 15.Gait dysfunction. RECOMMENDATIONS AND DISCUSSION: I recommend to continue current medications, continue with the monitoring, symptomatic treatment. Monitor the blood pressure closely. Cardiology input appreciated. Neurology has also seen the patient. A 2D echo with Doppler was done which showed ejection fraction about 50% to 60% and moderate mitral regurgitation as well. Otherwise, we will also get outpatient records from Dr. Mccullough and Jack Hensley and continue to monitor. The prognosis is guarded because of multiple complex medical issues. I would also recommend PT/OT evaluation and increase ambulation as well. Continue the rest of medications. Guarded prognosis. Further recommendations to follow. MMODL / IJN: [id number] /
--- NOTE | 2018-12-13 20:20 | MR ---
EXAMINATION TYPE: MR brain wo con DATE OF EXAM: 12/13/2018 COMPARISON: 08/17/2017 HISTORY: Headache, left-sided weakness, h/o CVA CONTRAST: Performed utilizing 0 mL intravenous Gadavist gadolinium contrast. TECHNIQUE: Multiplanar, multiecho imaging on a 3.0 Dianna magnet is performed through the brain. Stud y is performed within 24 hours of arrival to the hospital. The craniovertebral junction is normal. The pituitary is normal. Diffusion-weighted imaging is performed. No abnormal hyperintensity is present to suggest an acute i ntracranial infarct or acute ischemic change. There are multiple areas of scattered increased signal within the deep white matter. Larger areas wit hin the left centrum semiovale measures 1.0 cm and is stable from comparison. Additional white matter changes are within the periventricular white matter and within the brainstem. Findings were present previously. A white matter change in the right centrum semiovale appears smaller than comparison Ventricles and sulci are appropriate for the patient age. IMPRESSIONS: 1. No suspicious area of increasing infarct or gliosis. 2. White matter changes appear stable. Right periventricular white matter change may have improved fr om comparison.
[2018-12-13 21:04] LABS: Glucose,Whole Blood 144 mg/dL (75-99)
[2018-12-13] MEDS: METOPROLOL TARTRATE 50 MG TAB PO SCH (21:50)
[2018-12-13] MEDS: TRIAMCINOLONE ACET 0.1% OINTMENT 15 GM TUBE TOPICAL SCH (21:51)
[2018-12-13] MEDS: ATORVASTATIN 80 MG TAB PO SCH (21:51)
[2018-12-13] MEDS: MUPIROCIN 2% OINT 22 GM TUBE TOPICAL SCH (21:51)
[2018-12-13] MEDS: LURASIDONE 40 MG TAB PO SCH (23:18)
[2018-12-14 06:07] LABS: Basophils % (A) 0 %; Eosinophils # (A) 0.2 k/uL (0-0.7); Eosinophils % (A) 2 %; HCT 24.1 % (39.0-53.0); HGB 8.4 gm/dL (13.0-17.5); Lymphocytes # (A) 1.7 k/uL (1.0-4.8); Lymphocytes % (A) 18 %; MCH 28.6 pg (25.0-35.0); MCHC 34.7 g/dL (31.0-37.0); MCV 82.3 fL (80.0-100.0); Mean Platelet Volume 7.2; Monocytes # (A) 0.6 k/uL (0-1.0); Monocytes % (A) 7 %; Neutrophils # (A) 6.7 k/uL (1.3-7.7); Neutrophils % (A) 71 %; Platelet Count 149 k/uL (150-450); RBC 2.93 m/uL (4.30-5.90); RDW 15.2 % (11.5-15.5); WBC 9.5 k/uL (3.8-10.6)
[2018-12-14 06:13] LABS: Glucose,Whole Blood 102 mg/dL (75-99)
[2018-12-14 06:17] LABS: Potassium 3.9 mmol/L (3.5-5.1)
[2018-12-14] MEDS: INSULIN ASPART (NovoLOG) 100 UNIT/ML VIAL SQ SCH ×5 (06:24→22:49)
[2018-12-14] MEDS: GLIMEPIRIDE 1 MG TAB PO SCH (06:52)
[2018-12-14] MEDS: TAMSULOSIN 0.4 MG CAP.ER.24H PO SCH ×2 (08:30→19:48)
[2018-12-14] MEDS: TRIAMCINOLONE ACET 0.1% OINTMENT 15 GM TUBE TOPICAL SCH ×2 (08:30→19:49)
[2018-12-14] MEDS: GABAPENTIN 300 MG CAP PO SCH ×2 (08:30→19:47)
[2018-12-14] MEDS: metFORMIN 500 MG TAB PO SCH (08:30)
[2018-12-14] MEDS: LISINOPRIL 20 MG TAB PO SCH (08:30)
[2018-12-14] MEDS: MUPIROCIN 2% OINT 22 GM TUBE TOPICAL SCH ×2 (08:30→19:49)
[2018-12-14] MEDS: LORATADINE 10 MG TAB PO SCH (08:30)
[2018-12-14] MEDS: CLOPIDOGREL 75 MG TAB PO SCH (08:30)
[2018-12-14] MEDS: LINAGLIPTIN 5 MG TABLET PO SCH (08:30)
[2018-12-14] MEDS: CITALOPRAM HYDROBROMIDE 20 MG TAB PO SCH (08:31)
[2018-12-14] MEDS: SODIUM CHLORIDE 0.9% 1,000 ML IV SCH (08:31)
[2018-12-14] MEDS: METOPROLOL TARTRATE 50 MG TAB PO SCH ×2 (08:31→19:52)
[2018-12-14] MEDS: PANTOPRAZOLE 40 MG/10 ML VIAL IVP SCH (08:31)
[2018-12-14] MEDS: cloNIDine HCL 0.2 MG TAB PO SCH ×2 (08:31→19:48)
[2018-12-14] MEDS: DOCUSATE 100 MG CAP PO SCH ×2 (08:32→19:49)
[2018-12-14] MEDS: amLODIPine 5 MG TAB PO SCH (10:06)
[2018-12-14 11:32] LABS: Glucose,Whole Blood 106 mg/dL (75-99)
--- NOTE | 2018-12-14 14:28 | P.PN ---
Subjective Progress Note Date: 12/14/18 This is a 53-year-old gentleman who follows with Dr. kathia leon in the office. He has a known history of diabetes, hypertension, rheumatoid arthritis, hyperlipidemia, family history of coronary artery disease, history of prior CVA, underwent a cardiac catheterization in October of last year with subsequent angioplasty and stenting of a chronically diseased diffusely calcified mid and proximal circumflex artery. He presents to the hospital on this occasion with symptoms of progressive weakness with associated episodes of vomiting and decreased intake at home. He has been able to take many of his medications including his antihypertensives because of the persistent nausea and vomiting. The TA of the brain was performed which was negative. EKG shows a normal sinus rhythm with no acute changes. Chest x-ray normal. On arrival to the hospital, blood pressure 233/97, heart rate in the 80s, temperature 90.9, 99% on room air. Blood Pressure this morning 140/70 with a heart rate in the 70s, 95% on room air. Admission labs, blood cell count 7.7, hemoglobin 10.0, platelet count 181, sodium 141, potassium 3.9, BUN 17 and creatinine 1.6. Troponin 0.043. This morning's labs, white blood cell count 7.9, hemoglobin down to 7.5, platelet count 158. Blood gases were obtained, pH 7.3, pCO2 47 and HCO3 22. Sodium 138, potassium 4.4, BUN 24 and creatinine 2.3. 12/14/2018 Patient was seen and examined today, much more alert today, feeling better overall. Blood pressure earlier this morning 198/90, Norvasc was added to his medication regime. Echocardiogram with Doppler study showed a normal ejection fraction. Objective - Vital Signs Vital signs: Vital Signs Temp 98.2 F 12/14/18 08:15 Pulse 60 12/14/18 12:00 Resp 17 12/14/18 12:00 BP 137/79 12/14/18 12:00 Pulse Ox 98 12/14/18 12:00 Intake & Output 12/13/18 12/14/18 12/14/18 18:59 06:59 18:59 Intake Total 865 1240 480 Output Total 500 Balance 865 1240 -20 Weight 83.4 kg 81 kg Intake: IV 30 Invasive Line 1 30 Intake, IV Titration 500 250 Amount Sodium Chloride 0.9% 1, 500 250 000 ml @ 50 mls/hr IV . Q20H JAD Rx#:[id number] Oral 365 960 480 Output: Urine 500 Other: Voiding Method Toilet # Voids 3 - Exam PHYSICAL EXAMINATION: GENERAL: 53-year-old gentleman in no acute distress at the time of my examination HEENT: Head is atraumatic, normocephalic. Pupils equal, round. Sclera a nicteric. Conjunctiva are clear. Mucous membranes of the mouth are moist. Neck is supple. There is no elevated jugular venous pressure. No Carotid bruit is heard. HEART EXAMINATION: Heart S1, S2 normal. No murmur or gallop heard. CHEST EXAMINATION: Lungs reveal some coarse crackles that clear with cough. ABDOMEN: Soft, nontender. Bowel sounds are heard. No organomegaly noted. EXTREMITIES: 2+ peripheral pulses with no evidence of peripheral edema and no calf tenderness noted. NEUROLOGIC patient is awake, alert and oriented 3 . . - Labs CBC & Chem 7: 12/14/18 05:31 12/14/18 05:31 Labs: Abnormal Lab Results - Last 24 Hours (Table) 12/13/18 12/13/18 12/14/18 Range/Units 05:51 21:03 01:19 RBC (4.30-5.90) m/uL Hgb (13.0-17.5) gm/dL Hct (39.0-53.0) % Plt Count (150-450) k/uL Chloride (98-107) mmol/L BUN (9-20) mg/dL Creatinine (0.66-1.25) mg/dL POC Glucose (mg/dL) 144 H (75-99) mg/dL Hemoglobin A1c 9.1 H (4.0-6.0) % Calcium (8.4-10.2) mg/dL Troponin I 0.036 H* (0.000-0.034) ng/mL 12/14/18 12/14/18 12/14/18 Range/Units 05:31 05:31 06:12 RBC 2.93 L (4.30-5.90) m/uL Hgb 8.4 L (13.0-17.5) gm/dL Hct 24.1 L (39.0-53.0) % Plt Count 149 L (150-450) k/uL Chloride 109 H (98-107) mmol/L BUN 31 H (9-20) mg/dL Creatinine 2.79 H (0.66-1.25) mg/dL POC Glucose (mg/dL) 102 H (75-99) mg/dL Hemoglobin A1c (4.0-6.0) % Calcium 8.0 L (8.4-10.2) mg/dL Troponin I (0.000-0.034) ng/mL 12/14/18 Range/Units 11:31 RBC (4.30-5.90) m/uL Hgb (13.0-17.5) gm/dL Hct (39.0-53.0) % Plt Count (150-450) k/uL Chloride (98-107) mmol/L BUN (9-20) mg/dL Creatinine (0.66-1.25) mg/dL POC Glucose (mg/dL) 106 H (75-99) mg/dL Hemoglobin A1c (4.0-6.0) % Calcium (8.4-10.2) mg/dL Troponin I (0.000-0.034) ng/mL Microbiology - Last 24 Hours (Table) 12/12/18 17:51 Blood Culture - Preliminary Blood No Growth after 24 hours Assessment and Plan Plan: Assessment and plan #1 accelerated hypertension #2 mental status change, rule out TIA, recurrent CVA #3 history of recent CVA #4 persistent nausea and vomiting with associated decreased appetite #5 diabetes #6 hyperlipidemia #7 rheumatoid arthritis #8 history of anxiety or depression #9 abnormal troponin, patient denies having any chest discomfort #10 coronary artery disease with prior PCI, patient underwent PTCA and stenting of a dominant mid and proximal circumflex artery in 2018 #11 anemia Plan we will add a small dose of Norvasc to the patient's medication regime, continue the rest of the medications. Echo showed normal LV function. DNP note has been reviewed, I agree with a documented findings and plan of care. Patient was seen and examined.
[2018-12-14] MEDS: hydrALAZINE HCL 50 MG TAB PO SCH ×3 (15:25→22:46)
[2018-12-14] MEDS: ASPIRIN 81 MG PO SCH (15:26)
--- NOTE | 2018-12-14 16:24 | PN ---
PROGRESS NOTE DATE OF SERVICE: 12/14/2018 This 53-year-old gentleman who was admitted with difficulty in walking, nausea, accelerated hypertension, was suspected to have an acute stroke on admission. The patient also had some change in mental status. Patient also had one very elevated blood pressure at more than 210. Multiple consultants are following the patient closely. A 2D echo showed no evidence of acute abnormality. Ejection fraction was found to be 50% to 60%. The patient also had a brain MRI and Neurology saw the patient and recommended continued monitoring. Blood pressure is still elevated, more than 180. White matter changes are noted in the MRI. Past medical history reviewed. REVIEW OF SYSTEMS: CARDIOVASCULAR SYSTEM: No angina, palpitations. RESPIRATORY SYSTEM: As mentioned earlier. GI: As mentioned earlier. : No dysuria or retention. NERVOUS SYSTEM: As mentioned earlier. CURRENT MEDICATIONS: Reviewed. They include: 1. Tylenol 650 q.6 p.r.n. 2. Fioricet 50 mg q.4 p.r.n. 3. Xanax 0.25 t.i.d. 4. Norvasc 5 mg daily. 5. Lipitor 80 mg at bedtime. 6. Celexa 60 mg daily. 7. Catapres 0.2 b.i.d. 8. Colace 100 mg p.o. b.i.d. 9. Neurontin 600 mg p.o. b.i.d. 10.Amaryl 1 mg before breakfast. 11.Dilaudid 0.5 mg q.6 p.r.n. 12.NovoLog scale. 13.Tradjenta. 14.Zestril. 15.Claritin. 16.Latuda. 17.Glucophage. 18.Narcan. 19.Zofran. 20.Percocet. 21.Protonix. 22.Saline. 23.Flomax. 24.Restoril. 25.Ultram. 26.Kenalog. Doses are reviewed. PHYSICAL EXAMINATION: Patient is alert, oriented x3. Pulse 78, blood pressure 198/91, respiration 17, temperature 98.2, pulse ox 99% on room air. HEENT: Conjunctivae normal. NECK: No jugular venous distention. CARDIOVASCULAR SYSTEM: S1, S2 muffled. RESPIRATORY SYSTEM: Breath sounds diminished at the bases. A few scattered rhonchi and crackles. ABDOMEN: Soft, non-tender. LEGS: No edema. No swelling. NERVOUS SYSTEM: Mild diffuse weakness. LABS: WBC 8.9, hemoglobin 8.4, creatinine 2.79. ASSESSMENT: 1. Accelerated hypertension with hypertensive urgency, change in mental status with acute hypertensive encephalopathy; rule out PRES. 2. Rule out possible transient ischemic attack or stroke. 3. History of recent multiple strokes. 4. Troponin 0.043, indeterminate. Rule out acute pqq-HL-xrckbou-elevation myocardial infarction. 5. Elevated creatinine to 2.79, indicating acute on chronic renal failure with possibly chronic kidney disease, stage III, as baseline. 6. Anemia, chronic, of undetermined etiology. 7. History of cerebrovascular accident, transient ischemic attack. 8. Diabetes mellitus, type 2. 9. Hypertension. 10.Hyperlipidemia. 11.History of rheumatoid arthritis. 12.History of migraine. 13.History of diabetic peripheral neuropathy. 14.History of anxiety, depression. 15.Gait dysfunction. RECOMMENDATIONS AND DISCUSSION: I recommend to continue current medications, continue with the monitoring, symptomatic treatment. I recommend continued antiplatelet agents. Monitor blood pressure closely. I would also get a nephrology consultation for worsening renal failure. This patient has multiple complex medical issues, as mentioned earlier, with high risk of morbidity as listed above. This patient will require more than 2 nights of hospital stay for workup and daily treatment of above-mentioned multiple complex medical issues. We will closely follow with multiple consultants. As mentioned earlier, we will monitor the blood pressure and make changes accordingly. Avoid nephrotoxic medications. Overall prognosis guarded. Further recommendations to follow. See orders for further details. Will add hydralazine to the current regimen. MMODL / IJN: [id number] / RAJAN
[2018-12-14 16:43] LABS: Glucose,Whole Blood 91 mg/dL (75-99)
--- NOTE | 2018-12-14 17:49 | P.PN ---
Subjective Progress Note Date: 12/14/18 Principal diagnosis: Headache History of recent bilateral CVAs Still has a headache. Able to eat better today. Nausea has decreased significantly. No new neuro c/o. Scheduled for ROGERIO in am. His outpatient neurologist Dr. Thomas still has not authorized release of his outpatient medical records. Objective - Vital Signs Vital signs: Vital Signs Temp 98.1 F 12/14/18 16:00 Pulse 68 12/14/18 16:00 Resp 17 12/14/18 16:00 BP 141/79 12/14/18 16:00 Pulse Ox 100 12/14/18 16:00 Intake & Output 12/13/18 12/14/18 12/14/18 18:59 06:59 18:59 Intake Total 865 1240 480 Output Total 1000 Balance 865 1240 -520 Weight 83.4 kg 81 kg Intake: IV 30 Invasive Line 1 30 Intake, IV Titration 500 250 Amount Sodium Chloride 0.9% 1, 500 250 000 ml @ 50 mls/hr IV . Q20H JAD Rx#:[id number] Oral 365 960 480 Output: Urine 1000 Other: Voiding Method Toilet # Voids 3 - Exam Gen NAD pleasant and cooperative Neuro MS A+Ox4 Normal fluency Able to follow all commands CN PERRL Blinks to threat bilaterally no APD EOMI no nystagmus or FENG Decreased left NLF Masseter's symmetric Hearing intact to normal voice bilaterally Speech not dysarthric Equal elevation of palate Tongue midline Sym shrug and SCM bilaterally Motor Normal bulk/tone Mild left pronator drift No leg drift Mild action tremor in hands Strength 5/5 right 5-/5 left Sens Intact to LT x4 No neglect or extinction Coord No dysmetria on FTN bilaterally DTRs 2+/4 sym throughout Toes downgoing bilaterally No clonus at achilles Gait Deferred NIHSS 2 - Labs CBC & Chem 7: 12/14/18 05:31 12/14/18 05:31 Labs: Abnormal Lab Results - Last 24 Hours (Table) 12/13/18 12/14/18 12/14/18 Range/Units 21:03 01:19 05:31 RBC 2.93 L (4.30-5.90) m/uL Hgb 8.4 L (13.0-17.5) gm/dL Hct 24.1 L (39.0-53.0) % Plt Count 149 L (150-450) k/uL Chloride (98-107) mmol/L BUN (9-20) mg/dL Creatinine (0.66-1.25) mg/dL POC Glucose (mg/dL) 144 H (75-99) mg/dL Calcium (8.4-10.2) mg/dL Troponin I 0.036 H* (0.000-0.034) ng/mL 12/14/18 12/14/18 12/14/18 Range/Units 05:31 06:12 11:31 RBC (4.30-5.90) m/uL Hgb (13.0-17.5) gm/dL Hct (39.0-53.0) % Plt Count (150-450) k/uL Chloride 109 H (98-107) mmol/L BUN 31 H (9-20) mg/dL Creatinine 2.79 H (0.66-1.25) mg/dL POC Glucose (mg/dL) 102 H 106 H (75-99) mg/dL Calcium 8.0 L (8.4-10.2) mg/dL Troponin I (0.000-0.034) ng/mL Microbiology - Last 24 Hours (Table) 12/12/18 17:51 Blood Culture - Preliminary Blood No Growth after 24 hours - Imaging and Cardiology MRI Brain wo khushi 12/13/18. No area of restricted diffusion seen to suggest acute intracranial changes. There are multiple areas of scattered increased 6 no on T2/flair within the white matter. Larger areas within the left centrum semiovale measuring 1.0 cm. Additional white matter changes within the periventricular white matter and within the brainstem. Findings were present previously. A white matter change in the right centrum semiovale appears stable in comparison. Ventricles and sulci are appropriate for the patient's age. TTE 12/13/18. Left ventricular size is normal. There is mild concentric left ventricular hypertrophy. EF between 55-60%. Left atrium is mildly dilated. There are no intracardiac thrombi seen. Assessment and Plan Assessment: 1. Headache, N/V, likely due to malignant hypertension. No evidence of PRES, new CVA or other acute structural changes to explain his headache. 2. Recent history of multiple strokes, again visualized on MRI Brain. Other differential considerations include conditions of demyelination. Plan: -BP management per primary team. May bring BP down to normotensive range as he presents with no acute (or new) focal neuro sx. -MRI brain wo khushi did rule out PRES given persistent headache and N/V. -CT and CTA Head reviewed. -Clopidogrel 75mg/day. -Statin therapy. -Goals BP <130, hga1c <7.0 and LDL <70. -Still awaiting medical records from outpatient neurology Dr. Thomas' office. -ROGERIO scheduled for follow-up. -Given his left atrial enlargement, may need extended cardiac event monitoring. Please have patient follow up with cardiology. -Patient does have significant white matter changes seen on MRI Brain. If his vascular work-up is unrevealing, it would certainly be reasonable to look at biomarkers in his CSF to r/o demyelination. This can be followed up as outpatient as he already has an outpatient neurologist. -d/w patient and . All questions answered. Thank you again for this consultation. Please call with ?. Time with Patient: Less than 30
[2018-12-14] MEDS: ATORVASTATIN 80 MG TAB PO SCH (19:47)
[2018-12-14] MEDS: LURASIDONE 40 MG TAB PO SCH (19:49)
[2018-12-14 21:02] LABS: Glucose,Whole Blood 148 mg/dL (75-99)
[2018-12-15] MEDS: GLIMEPIRIDE 1 MG TAB PO SCH (05:09)
[2018-12-15] MEDS: INSULIN ASPART (NovoLOG) 100 UNIT/ML VIAL SQ SCH ×4 (05:09→20:23)
[2018-12-15 05:50] LABS: Glucose,Whole Blood 126 mg/dL (75-99)
[2018-12-15] MEDS: SODIUM CHLORIDE 0.9% 1,000 ML IV SCH ×2 (07:04→23:06)
[2018-12-15 07:29] LABS: Basophils % (A) 0 %; Eosinophils # (A) 0.3 k/uL (0-0.7); Eosinophils % (A) 4 %; HGB 8.8 gm/dL (13.0-17.5); Lymphocytes # (A) 1.6 k/uL (1.0-4.8); Lymphocytes % (A) 22 %; MCH 27.6 pg (25.0-35.0); MCHC 32.5 g/dL (31.0-37.0); Mean Platelet Volume 6.4; Monocytes # (A) 0.6 k/uL (0-1.0); Monocytes % (A) 7 %; Neutrophils # (A) 4.7 k/uL (1.3-7.7); Neutrophils % (A) 64 %; Platelet Count 175 k/uL (150-450); RBC 3.18 m/uL (4.30-5.90); WBC 7.3 k/uL (3.8-10.6)
[2018-12-15 07:46] LABS: Calcium 7.8 mg/dL (8.4-10.2); Potassium 3.9 mmol/L (3.5-5.1)
[2018-12-15] MEDS: hydrALAZINE HCL 50 MG TAB PO SCH ×4 (09:14→23:06)
[2018-12-15] MEDS: PANTOPRAZOLE 40 MG/10 ML VIAL IVP SCH (09:14)
[2018-12-15] MEDS: LINAGLIPTIN 5 MG TABLET PO SCH (09:14)
[2018-12-15] MEDS: GABAPENTIN 300 MG CAP PO SCH ×2 (09:15→20:19)
[2018-12-15] MEDS: amLODIPine 5 MG TAB PO SCH (09:15)
[2018-12-15] MEDS: CITALOPRAM HYDROBROMIDE 20 MG TAB PO SCH (09:15)
[2018-12-15] MEDS: TAMSULOSIN 0.4 MG CAP.ER.24H PO SCH ×2 (09:15→20:19)
[2018-12-15] MEDS: CLOPIDOGREL 75 MG TAB PO SCH (09:15)
[2018-12-15] MEDS: METOPROLOL TARTRATE 50 MG TAB PO SCH ×2 (09:15→20:19)
[2018-12-15] MEDS: LORATADINE 10 MG TAB PO SCH (09:15)
[2018-12-15] MEDS: ASPIRIN 81 MG PO SCH (09:15)
[2018-12-15] MEDS: cloNIDine HCL 0.2 MG TAB PO SCH ×3 (09:15→20:19)
[2018-12-15] MEDS: DOCUSATE 100 MG CAP PO SCH ×2 (09:16→20:19)
[2018-12-15] MEDS: MUPIROCIN 2% OINT 22 GM TUBE TOPICAL SCH ×2 (09:17→20:20)
[2018-12-15] MEDS: TRIAMCINOLONE ACET 0.1% OINTMENT 15 GM TUBE TOPICAL SCH ×2 (09:18→20:20)
--- NOTE | 2018-12-15 09:28 | P.PN ---
Subjective Progress Note Date: 12/15/18 Principal diagnosis: Headache History of recent bilateral CVAs No events O/N. No Headache this morning. Able to keep food down yesterday without N/V. Some diarrhea. No new neuro c/o. Objective - Vital Signs Vital signs: Vital Signs Temp 97.9 F 12/15/18 04:00 Pulse 70 12/15/18 04:00 Resp 17 12/15/18 04:00 BP 145/77 12/15/18 04:00 Pulse Ox 96 12/15/18 04:00 Intake & Output 12/14/18 12/15/18 12/15/18 18:59 06:59 18:59 Intake Total 702 1370 240 Output Total 1000 Balance -298 1370 240 Weight 87.4 kg Intake: IV 10 Invasive Line 1 10 Intake, IV Titration 400 Amount Sodium Chloride 0.9% 1, 400 000 ml @ 50 mls/hr IV . Q20H JAD Rx#:[id number] Oral 702 960 240 Output: Urine 1000 Other: Voiding Method Toilet - Exam Gen NAD pleasant and cooperative Neuro MS A+Ox4 Normal fluency Able to follow all commands CN PERRL Blinks to threat bilaterally no APD EOMI no nystagmus or FENG Decreased left NLF Masseter's symmetric Hearing intact to normal voice bilaterally Speech not dysarthric Equal elevation of palate Tongue midline Sym shrug and SCM bilaterally Motor Normal bulk/tone Mild left pronator drift No leg drift Mild action tremor in hands Strength 5/5 right 5-/5 left Sens Intact to LT x4 No neglect or extinction Coord No dysmetria on FTN bilaterally DTRs 2+/4 sym throughout Toes downgoing bilaterally No clonus at achilles Gait Deferred NIHSS 2 - Labs CBC & Chem 7: 12/15/18 06:14 12/15/18 06:14 Labs: Abnormal Lab Results - Last 24 Hours (Table) 12/14/18 12/14/18 12/15/18 Range/Units 11:31 21:01 05:48 RBC (4.30-5.90) m/uL Hgb (13.0-17.5) gm/dL Hct (39.0-53.0) % Chloride (98-107) mmol/L BUN (9-20) mg/dL Creatinine (0.66-1.25) mg/dL POC Glucose (mg/dL) 106 H 148 H 126 H (75-99) mg/dL Calcium (8.4-10.2) mg/dL 12/15/18 12/15/18 Range/Units 06:14 06:14 RBC 3.18 L (4.30-5.90) m/uL Hgb 8.8 L (13.0-17.5) gm/dL Hct 27.0 L (39.0-53.0) % Chloride 109 H (98-107) mmol/L BUN 34 H (9-20) mg/dL Creatinine 2.57 H (0.66-1.25) mg/dL POC Glucose (mg/dL) (75-99) mg/dL Calcium 7.8 L (8.4-10.2) mg/dL Microbiology - Last 24 Hours (Table) 12/12/18 17:51 Blood Culture - Preliminary Blood No Growth after 48 hours Assessment and Plan Assessment: 1. Headache, N/V, likely due to malignant hypertension. No evidence of PRES, new CVA or other acute structural changes to explain his headache and N/V, which have improved with stabilization of his BP. 2. Recent history of multiple strokes, again visualized on MRI Brain. Other differential considerations include conditions of demyelination. Plan: -BP management per primary team. May bring BP down to normotensive range as he presents with no acute (or new) focal neuro sx. -MRI brain wo khushi did rule out PRES given persistent headache and N/V. -CT and CTA Head reviewed. -Clopidogrel 75mg/day. -Statin therapy. -Goals BP <130, hga1c <7.0 and LDL <70. -Still awaiting medical records from outpatient neurology Dr. Thomas' office. -ROGERIO scheduled for later this morning. -Given his left atrial enlargement, may need extended cardiac event monitoring. Please have patient follow up with cardiology. -Patient does have significant white matter changes seen on MRI Brain. If his vascular work-up is unrevealing, it would certainly be reasonable to look at biomarkers in his CSF to r/o demyelination. This can be followed up as outpatient as he already has an outpatient neurologist. -After ROGERIO, can be discharged from neuro standpoint with outpatient neuro follow-up for potential further work-up. No other neuro recs at this time. Please call with new ?. Time with Patient: Less than 30 (Time spent in direct patient care, greater than 50% of which was spent in [id number] counseling and coordination of care: 25 minutes)
[2018-12-15 10:50] VITALS: BMI 28.4
[2018-12-15] MEDS ORDERED: fentaNYL (PF) 50 MCG/ML 2 ML AMP ONE (11:22)
--- NOTE | 2018-12-15 11:23 | P.NPCON ---
History of Present Illness - Reason for Consult acute renal failure, chronic renal failure - History of Present Illness Reason for consultation: Acute kidney injury on chronic kidney disease History of present illness: Patient is a 53-year-old male seen in renal consultation for acute kidney injury on chronic kidney disease. Patient has chronic kidney disease stage III with baseline creatinine in the range of 1-1.3. However when patient was seen in the office in September 2018 his creatinine was 2.1. This admission his creatinine was 1.62 and peaked at 2.79. His 2.57 today. Patient presented to the hospital with nausea vomiting and headache. He had a CTA of the brain done on December 12 which was negative. He does have history of diastolic CHF with moderate mitral regurgitation. Denies edema. Admits to good urine output. His blood pressure has been very high this admission the systolic blood pressure over 200. It is now better controlled. Patient has long-standing history of diabetes mellitus. Currently he denies any headache. No vomiting or diarrhea. He is tolerating oral intake. Denies use of nonsteroidals. Vital signs are stable. General: The patient appeared well nourished and normally developed. HEENT: Head exam is unremarkable. Neck is without jugular venous distension. LUNGS: Lungs are clear to auscultation and percussion. Breath sounds decreased. HEART: Rate and Rhythm are regular. First and second heart sounds normal. No murmurs, rubs or gallops. ABDOMEN: Abdominal exam reveals normal bowel sounds. Non-tender and non- distended. No evidence of peritonitis. EXTREMITITES: No clubbing, cyanosis, or edema. Past Medical History Past Medical History: CVA/TIA, Diabetes Mellitus, GERD/Reflux, Hyperlipidemia, Hypertension, Myocardial Infarction ([place]), Renal Disease, Rheumatoid Arthritis ([place]) Additional Past Medical History / Comment(s): stroke apr 2017, migranes, diabetic neuropathy arms and legs, stage 2 kidney failure, PANCREATITIS, LEGALLY BLIND, enlarged prostate, trouble urinating Last Myocardial Infarction Date:: 2014? not sure History of Any Multi-Drug Resistant Organisms: None Reported Past Surgical History: No Surgical Hx Reported Additional Past Surgical History / Comment(s): EGD Past Anesthesia/Blood Transfusion Reactions: No Reported Reaction Additional Past Anesthesia/Blood Transfusion Reaction / Comment(s): never had anethesia Date of Last Stent Placement:: 11/11/2017 Past Psychological History: Anxiety, Depression Smoking Status: Never smoker - Past Family History Mother Family Medical History: CVA/TIA, Diabetes Mellitus, Hypertension Additional Family Medical History / Comment(s): Mother is 77yrs old. Father Family Medical History: CVA/TIA, Diabetes Mellitus, Myocardial Infarction ([place]) Additional Family Medical History / Comment(s): Father of a [place] in his 50s. Medications and Allergies Home Medications Medication Instructions Recorded Confirmed Type Docusate Sodium [Dok] 100 mg PO BID 09/12/17 12/12/18 History Gabapentin 600 mg PO BID 09/12/17 12/12/18 History Glimepiride [Amaryl] 1 mg PO QAM 09/12/17 12/12/18 History Lisinopril [Zestril] 20 mg PO BID 09/12/17 12/12/18 History Lurasidone [Latuda] 40 mg PO HS 09/12/17 12/12/18 History cloNIDine HCL [Catapres] 0.2 mg PO BID 09/12/17 12/12/18 History sitaGLIPtin [Januvia] 100 mg PO QAM 09/12/17 12/12/18 History Pantoprazole [Protonix] 40 mg PO BID 11/05/17 12/12/18 History Tamsulosin [Flomax] 0.4 mg PO BID 11/05/17 12/12/18 History Atorvastatin [Lipitor] 80 mg PO HS tab 11/12/17 12/12/18 Rx Metoprolol Tartrate [Lopressor] 25 mg PO BID #60 tab 11/12/17 12/12/18 Rx Nitroglycerin Sl Tabs [Nitrostat] 0.4 mg SUBLINGUAL Q5M PRN #25 tab 11/12/17 10/19/18 Rx metFORMIN HCL 1,000 mg PO BID #0 11/12/17 12/12/18 Rx Clopidogrel [Plavix] 75 mg PO QAM 12/09/17 12/12/18 History Aspirin 81 mg PO DAILY chew 12/15/17 12/12/18 Rx Butalb/APAP/Caff 50-325-40Mg 1 tab PO Q4H PRN 12/12/18 12/12/18 History [Fioricet 50-325-40] Citalopram Hydrobromide [CeleXA] 60 mg PO DAILY 12/12/18 12/12/18 History Loratadine [Claritin] 10 mg PO DAILY 12/12/18 12/12/18 History Mupirocin 2% Oint [Bactroban 2% 1 applic TOPICAL BID 12/13/18 12/13/18 History Oint] Triamcinolone 0.1% Ointment 1 applicate TOPICAL BID 12/13/18 12/13/18 History [Kenalog 0.1% Ointment] Allergies Allergy/AdvReac Type Severity Reaction Status Date / Time Iodinated Contrast- Oral and Allergy Nausea & Verified 12/12/18 13:32 IV Dye Vomiting Physical Exam Vitals: Vital Signs Temp Pulse Resp BP Pulse Ox 12/15/18 08:30 97.4 F L 66 18 155/81 97 12/15/18 04:00 97.9 F 70 17 145/77 96 12/14/18 22:56 97.1 F L 80 17 197/87 99 12/14/18 20:00 97.8 F 77 15 164/81 97 12/14/18 19:33 17 12/14/18 16:00 98.1 F 68 17 141/79 100 12/14/18 12:00 60 17 137/79 98 Intake and Output 12/14/18 12/15/18 12/15/18 22:59 06:59 14:59 Intake Total 222 1370 240 Output Total 500 Balance -278 1370 240 Intake: IV 10 Invasive Line 1 10 Intake, IV Titration 400 Amount Sodium Chloride 0.9% 1, 400 000 ml @ 50 mls/hr IV . Q20H [facility] Rx#:[id number] Oral 222 960 240 Output: Urine 500 Other: Voiding Method Toilet Toilet Weight 87.4 kg 87.4 kg Results - Lab Results Most recent lab results Calcium 7.8 mg/dL (8.4-10.2) L 12/15/18 06:14 12/15/18 06:14 12/15/18 06:14 Assessment and Plan Plan: Assessment: 1. Acute kidney injury secondary to ATN secondary to hemodynamic instability as well as contrast-induced nephropathy. Creatinine peaked at 2.7 and his admission and is 2.59 today. Rule out obstructive uropathy. 2. Chronic kidney disease stage III with Baseline creatinine in the range of 1- 1.3 secondary to diabetic kidney disease. 3. Hypertensive urgency. Better. 4. Diastolic CHF with moderate mitral regurgitation. 5. Anemia of chronic disease. Rule out iron deficiency. 6. Insulin-dependent diabetes mellitus. Plan: Check bladder scan to rule out urinary retention. Check renal ultrasound. Maintain current antihypertensives. Norvasc was added on December 14. Continue to monitor blood pressure closely. Agree with holding lisinopril and metformin at this time. Check iron studies. Repeat electrolytes in the morning. Thank you for the consultation. I will continue to follow the patient with you during his hospital stay.
[2018-12-15] MEDS ORDERED: IV FLUID CONTINUATION 1,000 ML IV ONE (11:25)
[2018-12-15] MEDS ORDERED: BENZOCAINE SPRAY 1 CAN MUCOUS MEM ONE (11:38)
[2018-12-15] MEDS ORDERED: MIDAZOLAM (PF) 2 MG/2 ML VIAL IV ONE (11:40)
[2018-12-15] MEDS ORDERED: fentaNYL (PF) 50 MCG/ML 2 ML AMP IV ONE (11:40)
--- NOTE | 2018-12-15 12:23 | ECHOT ---
TRANSESOPHAGEAL ECHOCARDIOGRAM Mr. Tinajero was admitted with persistent nausea, vomiting, and had a significantly elevated blood pressure. This patient has a past history of a stroke and the MRI showed diffuse deep white matter changes, which most likely suggestive of small vessel disease. Underlying demyelinating disease cannot be entirely excluded. There are no evidence of any ischemic lesions in the cortex. PROCEDURE: The patient was given intravenous sedation with Versed and fentanyl and transesophageal echocardiogram was performed without any complications. FINDINGS: Left ventricular chamber is normal in size with severe degree of left ventricular hypertrophy and normal left ventricular systolic function. Mitral valve morphology is normal. Mild mitral regurgitation is noted. Aortic valve morphology is normal. No aortic regurgitation is noted. Left atrium is mildly enlarged. There is no evidence of thrombus in left atrium or atrial appendage. Pulmonary vein flow is normal. Mild to moderate tricuspid regurgitation is noted. Interatrial septum is intact. There is no evidence of PFO by saline contrast study. FINAL IMPRESSION: 1. This study shows severe degree of left ventricular hypertrophy with normal left ventricular systolic function. 2. There is no evidence of thrombus in left atrium or atrial appendage. 3. There is mild mitral regurgitation noted. 4. Interatrial septum is intact. There is no evidence of any patent foramen ovale. 5. There is no definite evidence of any cardiac source of emboli. The patient's MRI is suggestive of and shows evidence of predominantly deep white matter changes could be secondary to small-vessel disease or any underlying demyelinating disease needs to be ruled out. We will also discuss with the assortment planner whether patient could be considered for FIDELINA inhibitor. MMODL / IJN: [id number] /
[2018-12-15 12:47] LABS: Glucose,Whole Blood 163 mg/dL (75-99)
--- NOTE | 2018-12-15 15:44 | US ---
EXAMINATION TYPE: US kidneys/renal and bladder DATE OF EXAM: 12/15/2018 COMPARISON: US 2019 CLINICAL HISTORY: [email or web address], exam done portable. EXAM MEASUREMENTS: Right Kidney: 10.9 x 6.4 x 5.8cm Left Kidney: 11.3 x 5.9 x 6.0 cm Right Kidney: 1.2 x 1.0 x 1.1cm cystic area inferior pole and findings may represent parapelvic cyst Left Kidney: wnl Bladder: wnl Bilateral Jets seen: right jet seen Cortical echotexture appears somewhat increased. There is no hydronephrosis bilaterally. IMPRESSION: Correlate for medical renal disease.
[2018-12-15 16:40] LABS: Glucose,Whole Blood 243 mg/dL (75-99)
[2018-12-15 17:03] LABS: Iron Saturation 13.85 (15.00-50.00)
--- NOTE | 2018-12-15 17:56 | PN ---
PROGRESS NOTE DATE OF SERVICE: 12/15/2018 This 53-year-old gentleman, admitted with change in mental status, possible acute TIA, is being closely monitored. Patient's sensorium has improved. ROGERIO showed no evidence of any thrombus or any intracardiac shunt. Abdomen/bladder ultrasound was noted. Multiple consultants are following the patient closely. Currently the creatinine is 2.57, which is rather elevated. Hemoglobin is 8.8. Baseline creatinine when the patient came in was 1.62. On exam, alert and oriented x3. Pulse 61, blood pressure 109/58, respirations 17, temperature normal, pulse ox 98% on room air. HEENT: Conjunctivae normal. NECK: No jugular venous distention. CARDIOVASCULAR SYSTEM: S1, S2 muffled. RESPIRATORY SYSTEM: Breath sounds diminished at the bases. No rhonchi. No crackles. ABDOMEN: Soft, non-tender. LEGS: No edema. No swelling. NERVOUS SYSTEM: No focal deficit. LABS: WBC 7.3, hemoglobin 8.8, creatinine 2.57. ASSESSMENT: 1. Accelerated hypertension with hypertensive urgency and change in mental status with acute hypertensive encephalopathy. Rule out PRES. 2. Rule out possible transient ischemic attack or stroke. 3. History of recent multiple strokes. 4. Negative transesophageal echocardiogram. 5. Troponin 0.043, indeterminate. Rule out acute aih-BA-jtisqsw-elevation myocardial infarction. 6. Elevated creatinine to 2.7, indicating acute on chronic renal failure with possible chronic kidney disease, stage III at baseline. 7. Anemia, chronic, of undetermined etiology. 8. History of cerebrovascular accident, transient ischemic attack. 9. Diabetes mellitus, type 2. 10.Hypertension. 11.Hyperlipidemia. 12.History of rheumatoid arthritis. 13.History of migraine. 14.History of diabetic peripheral neuropathy. 15.History of anxiety, depression. 16.History of gait dysfunction. RECOMMENDATIONS AND DISCUSSION: I recommend to continue current medications, continue with the monitoring, symptomatic treatment. Monitor blood pressure further. Closely follow with multiple consultants, including Cardiology, Nephrology, Neurology. Increase ambulation. Creatinine is elevated but currently stable at this time. We will continue to monitor. Guarded prognosis because of multiple complex medical issues. Further recommendations to follow. MMODL / IJN: [id number] /
[2018-12-15 20:09] LABS: Glucose,Whole Blood 260 mg/dL (75-99)
[2018-12-15] MEDS: ATORVASTATIN 80 MG TAB PO SCH (20:19)
[2018-12-15] MEDS: LURASIDONE 40 MG TAB PO SCH (20:19)
[2018-12-16 05:38] LABS: Glucose,Whole Blood 144 mg/dL (75-99)
[2018-12-16 06:17] LABS: Calcium 7.4 mg/dL (8.4-10.2); Magnesium 1.6 mg/dL (1.6-2.3); Potassium 4.4 mmol/L (3.5-5.1)
[2018-12-16] MEDS: INSULIN ASPART (NovoLOG) 100 UNIT/ML VIAL SQ SCH ×4 (06:46→21:17)
[2018-12-16] MEDS: PANTOPRAZOLE 40 MG TABLET PO SCH (06:46)
[2018-12-16] MEDS: GLIMEPIRIDE 1 MG TAB PO SCH (06:46)
[2018-12-16 06:53] LABS: Basophils % (A) 0 %; Eosinophils # (A) 0.2 k/uL (0-0.7); Eosinophils % (A) 3 %; HCT 22.4 % (39.0-53.0); HGB 7.7 gm/dL (13.0-17.5); Lymphocytes # (A) 1.5 k/uL (1.0-4.8); Lymphocytes % (A) 18 %; MCH 28.8 pg (25.0-35.0); MCHC 34.2 g/dL (31.0-37.0); MCV 84.1 fL (80.0-100.0); Mean Platelet Volume 7.1; Monocytes # (A) 0.5 k/uL (0-1.0); Monocytes % (A) 6 %; Neutrophils % (A) 72 %; Platelet Count 141 k/uL (150-450); RBC 2.67 m/uL (4.30-5.90); RDW 14.5 % (11.5-15.5); WBC 8.3 k/uL (3.8-10.6)
[2018-12-16] MEDS: LINAGLIPTIN 5 MG TABLET PO SCH (09:11)
[2018-12-16] MEDS: TAMSULOSIN 0.4 MG CAP.ER.24H PO SCH ×2 (09:11→21:16)
[2018-12-16] MEDS: LORATADINE 10 MG TAB PO SCH (09:11)
[2018-12-16] MEDS: CLOPIDOGREL 75 MG TAB PO SCH (09:11)
[2018-12-16] MEDS: GABAPENTIN 300 MG CAP PO SCH ×2 (09:11→21:16)
[2018-12-16] MEDS: CITALOPRAM HYDROBROMIDE 20 MG TAB PO SCH (09:11)
[2018-12-16] MEDS: METOPROLOL TARTRATE 50 MG TAB PO SCH ×2 (09:11→21:16)
[2018-12-16] MEDS: ASPIRIN 81 MG PO SCH (09:11)
[2018-12-16] MEDS: DOCUSATE 100 MG CAP PO SCH ×2 (09:12→21:16)
[2018-12-16] MEDS: cloNIDine HCL 0.2 MG TAB PO SCH ×3 (09:14→21:16)
[2018-12-16] MEDS: hydrALAZINE HCL 50 MG TAB PO SCH ×4 (09:48→21:16)
[2018-12-16] MEDS: MUPIROCIN 2% OINT 22 GM TUBE TOPICAL SCH ×2 (09:49→21:16)
[2018-12-16] MEDS: TRIAMCINOLONE ACET 0.1% OINTMENT 15 GM TUBE TOPICAL SCH ×2 (09:49→21:16)
[2018-12-16] MEDS: SODIUM CHLORIDE 0.9% 1,000 ML IV SCH (09:52)
--- NOTE | 2018-12-16 11:24 | P.PN ---
Subjective Patient is seen in follow-up for acute kidney injury on chronic kidney disease. Patient has chronic kidney disease stage III with baseline creatinine in the range of 1-1.3; however in September 2018 his creatinine was 2.1. It is mildly worse compared to yesterday at 2.68. He denies any active headaches. No chest pain or shortness of breath. He was noted to have urinary retention yesterday and required straight catheterization with 500 mL drained. Patient states he has voided once this morning. Vital signs are stable. General: The patient appeared well nourished and normally developed. HEENT: Head exam is unremarkable. Neck is without jugular venous distension. LUNGS: Breath sounds decreased. HEART: Rate and Rhythm are regular. First and second heart sounds normal. No murmurs, rubs or gallops. ABDOMEN: Abdominal exam reveals normal bowel sounds. Non-tender and non- distended. No evidence of peritonitis. EXTREMITITES: No clubbing, cyanosis, or edema. Objective - Vital Signs Vital signs: Vital Signs Temp 98.6 F 12/16/18 08:00 Pulse 70 12/16/18 08:00 Resp 16 12/16/18 08:00 BP 147/81 12/16/18 09:46 Pulse Ox 98 12/16/18 08:00 Intake & Output 12/15/18 12/16/18 12/16/18 18:59 06:59 18:59 Intake Total 902 240 80 Output Total 1000 250 Balance -98 240 -170 Weight 87.4 kg 87.7 kg Intake: IV 50 Intake, IV Titration 150 Amount Sodium Chloride 0.9% 1, 150 000 ml @ 50 mls/hr IV . Q20H [facility] Rx#:[id number] Oral 702 240 80 Output: Urine 1000 250 Straight 500 Other: Voiding Method Toilet # Voids 0 1 - Labs CBC & Chem 7: 12/16/18 05:38 12/16/18 05:38 Labs: Abnormal Lab Results - Last 24 Hours (Table) 12/15/18 12/15/18 12/15/18 Range/Units 06:14 12:35 16:35 RBC (4.30-5.90) m/uL Hgb (13.0-17.5) gm/dL Hct (39.0-53.0) % Plt Count (150-450) k/uL Chloride (98-107) mmol/L BUN (9-20) mg/dL Creatinine (0.66-1.25) mg/dL Glucose (74-99) mg/dL POC Glucose (mg/dL) 163 H 243 H (75-99) mg/dL Calcium (8.4-10.2) mg/dL Iron 32 L (65-175) ug/dL Iron Saturation 13.85 L (15.00-50.00) 12/15/18 12/16/18 12/16/18 Range/Units 20:05 05:36 05:38 RBC 2.67 L (4.30-5.90) m/uL Hgb 7.7 L (13.0-17.5) gm/dL Hct 22.4 L (39.0-53.0) % Plt Count 141 L (150-450) k/uL Chloride (98-107) mmol/L BUN (9-20) mg/dL Creatinine (0.66-1.25) mg/dL Glucose (74-99) mg/dL POC Glucose (mg/dL) 260 H 144 H (75-99) mg/dL Calcium (8.4-10.2) mg/dL Iron (65-175) ug/dL Iron Saturation (15.00-50.00) 12/16/18 Range/Units 05:38 RBC (4.30-5.90) m/uL Hgb (13.0-17.5) gm/dL Hct (39.0-53.0) % Plt Count (150-450) k/uL Chloride 110 H (98-107) mmol/L BUN 41 H (9-20) mg/dL Creatinine 2.68 H (0.66-1.25) mg/dL Glucose 128 H (74-99) mg/dL POC Glucose (mg/dL) (75-99) mg/dL Calcium 7.4 L (8.4-10.2) mg/dL Iron (65-175) ug/dL Iron Saturation (15.00-50.00) Microbiology - Last 24 Hours (Table) 12/12/18 17:51 Blood Culture - Preliminary Blood No Growth after 72 hours Assessment and Plan Plan: Assessment: 1. Acute kidney injury secondary to ATN secondary to hemodynamic instability as well as contrast-induced nephropathy. Creatinine peaked at 2.7 and his admission and is 2.68 today. Possible component of urinary retention. He did require straight catheterization yesterday. No hydronephrosis noted on renal ultrasound. 2. Chronic kidney disease stage III with Baseline creatinine in the range of 1- 1.3 secondary to diabetic kidney disease. 3. Hypertensive urgency. Better. 4. Diastolic CHF with moderate mitral regurgitation. 5. Anemia of chronic disease. Iron deficiency noted. 6. Insulin-dependent diabetes mellitus. Plan: Check bladder scan to rule out urinary retention; Garcia catheter to be inserted if has persistent urinary retention. Agree with holding lisinopril and metformin at this time. IV iron 3 doses. First dose today. Repeat electrolytes in the morning. Replace magnesium. 2 g IV today. I will also check serologies to rule out underlying GN.
[2018-12-16 11:34] LABS: Glucose,Whole Blood 169 mg/dL (75-99)
--- NOTE | 2018-12-16 12:10 | P.PN ---
Subjective Progress Note Date: 12/16/18 This is a 53-year-old gentleman who follows with Dr. kathia leon in the office. He has a known history of diabetes, hypertension, rheumatoid arthritis, hyperlipidemia, family history of coronary artery disease, history of prior CVA, underwent a cardiac catheterization in October of last year with subsequent angioplasty and stenting of a chronically diseased diffusely calcified mid and proximal circumflex artery. He presents to the hospital on this occasion with symptoms of progressive weakness with associated episodes of vomiting and decreased intake at home. He has been able to take many of his medications including his antihypertensives because of the persistent nausea and vomiting. The TA of the brain was performed which was negative. EKG shows a normal sinus rhythm with no acute changes. Chest x-ray normal. On arrival to the hospital, blood pressure 233/97, heart rate in the 80s, temperature 90.9, 99% on room air. Blood Pressure this morning 140/70 with a heart rate in the 70s, 95% on room air. Admission labs, blood cell count 7.7, hemoglobin 10.0, platelet count 181, sodium 141, potassium 3.9, BUN 17 and creatinine 1.6. Troponin 0.043. This morning's labs, white blood cell count 7.9, hemoglobin down to 7.5, platelet count 158. Blood gases were obtained, pH 7.3, pCO2 47 and HCO3 22. Sodium 138, potassium 4.4, BUN 24 and creatinine 2.3. 12/14/2018 Patient was seen and examined today, much more alert today, feeling better overall. Blood pressure earlier this morning 198/90, Norvasc was added to his medication regime. Echocardiogram with Doppler study showed a normal ejection fraction. 12/16/2018 Patient underwent a ROGERIO yesterday which revealed severe degree of LVH with normal left ventricular systolic function, no evidence of thrombus in the left atrium or atrial appendage. Mild mitral regurgitation intra-atrial septum is intact no evidence for patent foramen ovale. No definite evidence of any cardiac source of emboli. Overall the patient is doing well this morning, blood pressure 132/70 with a heart rate in the 70s, he was up ambulating with physical therapy today Objective - Vital Signs Vital signs: Vital Signs Temp 98.6 F 12/16/18 08:00 Pulse 70 12/16/18 08:00 Resp 16 06/27/19 08:00 BP 147/81 12/16/18 09:46 Pulse Ox 98 12/16/18 08:00 Intake & Output 12/15/18 12/16/18 12/16/18 18:59 06:59 18:59 Intake Total 902 240 80 Output Total 1000 250 Balance -98 240 -170 Weight 87.4 kg 87.7 kg Intake: IV 50 Intake, IV Titration 150 Amount Sodium Chloride 0.9% 1, 150 000 ml @ 50 mls/hr IV . Q20H [facility] Rx#:[id number] Oral 702 240 80 Output: Urine 1000 250 Straight 500 Other: Voiding Method Toilet # Voids 0 1 - Exam PHYSICAL EXAMINATION: GENERAL: 53-year-old gentleman in no acute distress at the time of my examination HEENT: Head is atraumatic, normocephalic. Pupils equal, round. Sclera anicteric. Conjunctiva are clear. Mucous membranes of the mouth are moist. Neck is supple. There is no elevated jugular venous pressure. No Carotid bruit is heard. HEART EXAMINATION: Heart S1, S2 normal. No murmur or gallop heard. CHEST EXAMINATION: Lungs reveal some coarse crackles that clear with cough. ABDOMEN: Soft, nontender. Bowel sounds are heard. No organomegaly noted. EXTREMITIES: 2+ peripheral pulses with no evidence of peripheral edema and no calf tenderness noted. NEUROLOGIC patient is awake, alert and oriented 3 . . - Labs CBC & Chem 7: 12/16/18 05:38 12/16/18 05:38 Labs: Abnormal Lab Results - Last 24 Hours (Table) 12/15/18 12/15/18 12/15/18 Range/Units 06:14 12:35 16:35 RBC (4.30-5.90) m/uL Hgb (13.0-17.5) gm/dL Hct (39.0-53.0) % Plt Count (150-450) k/uL Chloride (98-107) mmol/L BUN (9-20) mg/dL Creatinine (0.66-1.25) mg/dL Glucose (74-99) mg/dL POC Glucose (mg/dL) 163 H 243 H (75-99) mg/dL Calcium (8.4-10.2) mg/dL Iron 32 L (65-175) ug/dL Iron Saturation 13.85 L (15.00-50.00) 12/15/18 12/16/18 12/16/18 Range/Units 20:05 05:36 05:38 RBC 2.67 L (4.30-5.90) m/uL Hgb 7.7 L (13.0-17.5) gm/dL Hct 22.4 L (39.0-53.0) % Plt Count 141 L (150-450) k/uL Chloride (98-107) mmol/L BUN (9-20) mg/dL Creatinine (0.66-1.25) mg/dL Glucose (74-99) mg/dL POC Glucose (mg/dL) 260 H 144 H (75-99) mg/dL Calcium (8.4-10.2) mg/dL Iron (65-175) ug/dL Iron Saturation (15.00-50.00) 12/16/18 12/16/18 Range/Units 05:38 11:28 RBC (4.30-5.90) m/uL Hgb (13.0-17.5) gm/dL Hct (39.0-53.0) % Plt Count (150-450) k/uL Chloride 110 H (98-107) mmol/L BUN 41 H (9-20) mg/dL Creatinine 2.68 H (0.66-1.25) mg/dL Glucose 128 H (74-99) mg/dL POC Glucose (mg/dL) 169 H (75-99) mg/dL Calcium 7.4 L (8.4-10.2) mg/dL Iron (65-175) ug/dL Iron Saturation (15.00-50.00) Microbiology - Last 24 Hours (Table) 12/12/18 17:51 Blood Culture - Preliminary Blood No Growth after 72 hours Assessment and Plan Plan: Assessment and plan #1 accelerated hypertension #2 mental status change, rule out TIA, recurrent CVA #3 history of recent CVA #4 persistent nausea and vomiting with associated decreased appetite #5 diabetes #6 hyperlipidemia #7 rheumatoid arthritis #8 history of anxiety or depression #9 abnormal troponin, patient denies having any chest discomfort #10 coronary artery disease with prior PCI, patient underwent PTCA and stenting of a dominant mid and proximal circumflex artery in 2018 #11 anemia Plan ROGERIO that was performed did not reveal any cardiac source of emboli. From our perspective we will follow this patient along with you now on an as-needed basis only, please don't hesitate to call with any questions. DNP note has been reviewed, I agree with a documented findings and plan of care. Patient was seen and examined.
--- NOTE | 2018-12-16 12:23 | P.PN ---
Subjective Progress Note Date: 12/16/18 Principal diagnosis: Headache History of recent bilateral CVAs No events O/N. Headache and N/V pretty much resolved with judicious BP control. No new neuro c/o. Objective - Vital Signs Vital signs: Vital Signs Temp 98.6 F 12/16/18 08:00 Pulse 70 12/16/18 08:00 Resp 16 12/16/18 08:00 BP 147/81 12/16/18 09:46 Pulse Ox 98 12/16/18 08:00 Intake & Output 12/15/18 12/16/18 12/16/18 18:59 06:59 18:59 Intake Total 902 240 80 Output Total 1000 250 Balance -98 240 -170 Weight 87.4 kg 87.7 kg Intake: IV 50 Intake, IV Titration 150 Amount Sodium Chloride 0.9% 1, 150 000 ml @ 50 mls/hr IV . Q20H JAD Rx#:[id number] Oral 702 240 80 Output: Urine 1000 250 Straight 500 Other: Voiding Method Toilet # Voids 0 1 - Exam Gen NAD pleasant and cooperative Neuro MS A+Ox4 Normal fluency Able to follow all commands CN PERRL Blinks to threat bilaterally no APD EOMI no nystagmus or FENG Decreased left NLF Mass[place]'s symmetric Hearing intact to normal voice bilaterally Speech not dysarthric Equal elevation of palate Tongue midline Sym shrug and SCM bilaterally Motor Normal bulk/tone Mild left pronator drift No leg drift Mild action tremor in hands Strength 5/5 right 5-/5 left Sens Intact to LT x4 No neglect or extinction Coord No dysmetria on FTN bilaterally DTRs 2+/4 sym throughout Toes downgoing bilaterally No clonus at achilles Gait Deferred NIHSS 2 - Labs CBC & Chem 7: 12/16/18 05:38 12/16/18 05:38 Labs: Abnormal Lab Results - Last 24 Hours (Table) 12/15/18 12/15/18 12/15/18 Range/Units 06:14 12:35 16:35 RBC (4.30-5.90) m/uL Hgb (13.0-17.5) gm/dL Hct (39.0-53.0) % Plt Count (150-450) k/uL Chloride (98-107) mmol/L BUN (9-20) mg/dL Creatinine (0.66-1.25) mg/dL Glucose (74-99) mg/dL POC Glucose (mg/dL) 163 H 243 H (75-99) mg/dL Calcium (8.4-10.2) mg/dL Iron 32 L (65-175) ug/dL Iron Saturation 13.85 L (15.00-50.00) 12/15/18 12/16/18 12/16/18 Range/Units 20:05 05:36 05:38 RBC 2.67 L (4.30-5.90) m/uL Hgb 7.7 L (13.0-17.5) gm/dL Hct 22.4 L (39.0-53.0) % Plt Count 141 L (150-450) k/uL Chloride (98-107) mmol/L BUN (9-20) mg/dL Creatinine (0.66-1.25) mg/dL Glucose (74-99) mg/dL POC Glucose (mg/dL) 260 H 144 H (75-99) mg/dL Calcium (8.4-10.2) mg/dL Iron (65-175) ug/dL Iron Saturation (15.00-50.00) 12/16/18 12/16/18 Range/Units 05:38 11:28 RBC (4.30-5.90) m/uL Hgb (13.0-17.5) gm/dL Hct (39.0-53.0) % Plt Count (150-450) k/uL Chloride 110 H (98-107) mmol/L BUN 41 H (9-20) mg/dL Creatinine 2.68 H (0.66-1.25) mg/dL Glucose 128 H (74-99) mg/dL POC Glucose (mg/dL) 169 H (75-99) mg/dL Calcium 7.4 L (8.4-10.2) mg/dL Iron (65-175) ug/dL Iron Saturation (15.00-50.00) Microbiology - Last 24 Hours (Table) 12/12/18 17:51 Blood Culture - Preliminary Blood No Growth after 72 hours - Imaging and Cardiology ROGERIO 12/15/18. Severe left ventricular hypertrophy but with normal left ventricular systolic function. No evidence of thrombus in the left atrium or atrial appendage. Mitral regurgitation. Interatrial septum is intact. There is no evidence of patent foramen ovale. Assessment and Plan Assessment: 1. Headache, N/V, likely due to malignant hypertension. No evidence of PRES, new CVA or other acute structural changes to explain his headache and N/V, which have improved with stabilization of his BP. 2. Recent history of multiple strokes, again visualized on MRI Brain. Other differential considerations include conditions of demyelination. Plan: -BP management per primary team. May bring BP down to normotensive range as he presents with no acute (or new) focal neuro sx. -MRI brain wo khushi did rule out PRES given persistent headache and N/V. -CT and CTA Head reviewed. -Clopidogrel 75mg/day. -Statin therapy. -Goals BP <130, hga1c <7.0 and LDL <70. -ROGERIO unrevealing for structural cardioembolic source. -Given his left atrial enlargement, may need extended cardiac event monitoring. Please have patient follow up with cardiology. -Patient does have significant white matter changes seen on MRI Brain. If his vascular work-up is eventually proved entirely unrevealing, it would certainly be reasonable to look at biomarkers in his CSF to r/o demyelination. This will need to be followed up [facility] Dr. Mccullough his outpatient neurologist. -Patient may be discharged from acute care from a neuro standpoint with outpatient neuro follow-up as per above. -No other neuro recs at this time. Will sign off. Please call with new ?. Time with Patient: Less than 30 (Time spent in direct patient care, greater than 50% of which was spent in [id number] counseling and coordination of care: 25 minutes.)
[2018-12-16] MEDS: SODIUM FERRIC GLUCONAT-SUCROSE 125 MG in SODIUM CHLORIDE 0.9% 100 ML IVPB SCH (12:39)
[2018-12-16] MEDS: MAGNESIUM SULFATE-D5W PMX 1 GM in DEXTROSE/WATER 1 100ML.BAG IVPB SCH ×2 (13:17→15:24)
[2018-12-16] MEDS: amLODIPine 5 MG TAB PO SCH (13:30)
[2018-12-16] MEDS: ACETAMINOPHEN TAB 325 MG TAB PO PRN (16:14)
--- NOTE | 2018-12-16 16:29 | PN ---
PROGRESS NOTE DATE OF SERVICE: 12/16/2018 This 53-year-old gentleman admitted with accelerated hypertension, hypertensive urgency, also had renal failure. The patient also had urinary retention. Nephrology is recommending Garcia catheterization. No chest pain. No palpitations. No fever. PHYSICAL EXAMINATION: Alert and oriented x3. Pulse is 67, blood pressure 117/68, respirations 16, temperature 97.7, pulse ox 97% on room air. HEENT: Conjunctivae normal. NECK: No jugular venous distention. CARDIOVASCULAR SYSTEM: S1, S2 muffled. RESPIRATORY SYSTEM: Breath sounds diminished at the bases. No rhonchi. No crackles. ABDOMEN: Soft, non-tender. No mass palpable. LEGS: No edema. No swelling. NERVOUS SYSTEM: Higher functions as mentioned earlier. Moves all 4 limbs. No focal motor or sensory deficit. LYMPHATICS: No lymph node palpable in neck, axillae or groin. SKIN: No ulcer, rash, bleeding. JOINTS: No active deforming arthropathy. LABS: WBC 8.3, hemoglobin 7.7, creatinine 2.68. ASSESSMENT: 1. Accelerated hypertension with hypertensive urgency with change in mental status with acute hypertensive encephalopathy. Rule out PRES. 2. Rule out possible transient ischemic attack or stroke. 3. History of recent multiple strokes. 4. Negative transesophageal echocardiogram. 5. Troponin 0.043, indeterminate. 6. Elevated creatinine up to 2.7, indicating acute on chronic renal failure with possible chronic kidney disease, stage III baseline. 7. Rule out obstructive uropathy. 8. Anemia, chronic, of undetermined etiology. 9. History of cerebrovascular accident, transient ischemic attack. 10.Diabetes mellitus, type 2. 11.Hypertension. 12.Hyperlipidemia. 13.History of rheumatoid arthritis. 14.History of migraine. 15.History of diabetic peripheral neuropathy. 16.History of anxiety, depression. 17.Gait dysfunction. RECOMMENDATIONS AND DISCUSSION: I recommend to continue current medications, continue with the monitoring, symptomatic treatment. Otherwise at this time I recommend repeat labs. Closely follow with Nephrology and Neurology. Increase ambulation. Possible discharge within the next 24- 48 hours if the patient is stable. Further recommendations to follow. MMODL / IJN: [id number] /
[2018-12-16 16:39] LABS: Glucose,Whole Blood 211 mg/dL (75-99)
[2018-12-16 19:40] LABS: Hepatitis A Antibody IgM Non-Reactive (Non-Reactive); Hepatitis B Core IgM Non-Reactive (Non-Reactive)
[2018-12-16 19:52] LABS: Protein, Total 4.8 g/dL (6.2-8.2)
[2018-12-16 20:07] LABS: Glucose,Whole Blood 118 mg/dL (75-99)
[2018-12-16 20:53] LABS: Anti-DNA, DS unit <1.0 IU/mL; DNA Double-Stranded NEGATIVE (NEGATIVE)
[2018-12-16] MEDS: ATORVASTATIN 80 MG TAB PO SCH (21:16)
[2018-12-16] MEDS: LURASIDONE 40 MG TAB PO SCH (21:16)
[2018-12-17 06:19] LABS: Glucose,Whole Blood 210 mg/dL (75-99)
[2018-12-17 06:35] LABS: Basophils % (A) 0 %; Eosinophils # (A) 0.3 k/uL (0-0.7); Eosinophils % (A) 4 %; HCT 21.1 % (39.0-53.0); HGB 7.3 gm/dL (13.0-17.5); Lymphocytes # (A) 1.4 k/uL (1.0-4.8); Lymphocytes % (A) 21 %; MCH 28.7 pg (25.0-35.0); MCHC 34.7 g/dL (31.0-37.0); MCV 82.6 fL (80.0-100.0); Mean Platelet Volume 7.2; Monocytes # (A) 0.4 k/uL (0-1.0); Monocytes % (A) 7 %; Neutrophils # (A) 4.5 k/uL (1.3-7.7); Neutrophils % (A) 67 %; Platelet Count 118 k/uL (150-450); RBC 2.55 m/uL (4.30-5.90); RDW 14.4 % (11.5-15.5); WBC 6.7 k/uL (3.8-10.6)
[2018-12-17] MEDS: INSULIN ASPART (NovoLOG) 100 UNIT/ML VIAL SQ SCH ×2 (06:41→12:10)
[2018-12-17] MEDS: GLIMEPIRIDE 1 MG TAB PO SCH (06:41)
[2018-12-17] MEDS: PANTOPRAZOLE 40 MG TABLET PO SCH (06:41)
[2018-12-17 06:44] LABS: Calcium 7.5 mg/dL (8.4-10.2); Magnesium 2.2 mg/dL (1.6-2.3); Potassium 4.5 mmol/L (3.5-5.1)
[2018-12-17 08:27] VITALS: PULSE 73; RESP 20; TEMP 98.1
[2018-12-17] MEDS: SODIUM CHLORIDE 0.9% 1,000 ML IV SCH (08:33)
[2018-12-17] MEDS: ASPIRIN 81 MG PO SCH (08:33)
[2018-12-17] MEDS: CLOPIDOGREL 75 MG TAB PO SCH (08:33)
[2018-12-17] MEDS: cloNIDine HCL 0.2 MG TAB PO SCH (08:33)
[2018-12-17] MEDS: hydrALAZINE HCL 50 MG TAB PO SCH ×2 (08:33→12:10)
[2018-12-17] MEDS: DOCUSATE 100 MG CAP PO SCH (08:34)
[2018-12-17] MEDS: GABAPENTIN 300 MG CAP PO SCH (08:34)
[2018-12-17] MEDS: LINAGLIPTIN 5 MG TABLET PO SCH (08:34)
[2018-12-17] MEDS: METOPROLOL TARTRATE 50 MG TAB PO SCH (08:34)
[2018-12-17] MEDS: CITALOPRAM HYDROBROMIDE 20 MG TAB PO SCH (08:34)
[2018-12-17] MEDS: LORATADINE 10 MG TAB PO SCH (08:34)
[2018-12-17] MEDS: TAMSULOSIN 0.4 MG CAP.ER.24H PO SCH (08:34)
[2018-12-17] MEDS: MUPIROCIN 2% OINT 22 GM TUBE TOPICAL SCH (08:35)
[2018-12-17] MEDS: TRIAMCINOLONE ACET 0.1% OINTMENT 15 GM TUBE TOPICAL SCH (08:35)
[2018-12-17] MEDS: SODIUM FERRIC GLUCONAT-SUCROSE 125 MG in SODIUM CHLORIDE 0.9% 100 ML IVPB SCH (09:13)
--- NOTE | 2018-12-17 09:22 | P.PN ---
Subjective Patient is seen in follow-up for acute kidney injury on chronic kidney disease. Patient has chronic kidney disease stage III with baseline creatinine in the range of 1-1.3; however in September 2018 his creatinine was 2.1. Renal function is stable. Creatinine 2.56 today. He denies any active headaches. No chest pain or shortness of breath. Garcia catheter was inserted yesterday for urinary retention. Patient has no active complaints. Vital signs are stable. General: The patient appeared well nourished and normally developed. HEENT: Head exam is unremarkable. Neck is without jugular venous distension. LUNGS: Breath sounds decreased. HEART: Rate and Rhythm are regular. First and second heart sounds normal. No murmurs, rubs or gallops. ABDOMEN: Abdominal exam reveals normal bowel sounds. Non-tender and non- distended. No evidence of peritonitis. EXTREMITITES: No clubbing, cyanosis, or edema. Objective - Vital Signs Vital signs: Vital Signs Temp 98.1 F 12/17/18 08:26 Pulse 73 12/17/18 08:26 Resp 20 12/17/18 08:26 BP 144/75 12/17/18 08:26 Pulse Ox 97 12/17/18 08:26 Intake & Output 12/16/18 12/17/18 12/17/18 18:59 06:59 18:59 Intake Total 1065 150 360 Output Total 750 600 Balance 315 -450 360 Weight 89.5 kg Intake: IV 750 150 Magnesium Sulfate-D5w Pmx 200 1 gm In Dextrose/Water 1 100ml.bag @ 100 mls/hr IVPB Q1H JAD Rx#: [id number] Sodium Chloride 0.9% 1, 450 150 000 ml @ 50 mls/hr IV . Q20H JAD Rx#:[id number] Sodium Ferric Gluconat- 100 Sucrose 125 mg In Sodium Chloride 0.9% 100 ml @ 100 mls/hr IVPB DAILY JAD Rx#:[id number] Oral 315 360 Output: Urine 750 600 Uretheral (Garcia) 500 Other: Voiding Method Indwelling Catheter Indwelling Catheter - Labs CBC & Chem 7: 12/17/18 05:46 12/17/18 05:46 Labs: Abnormal Lab Results - Last 24 Hours (Table) 12/16/18 12/16/18 12/16/18 Range/Units 11:28 12:40 12:40 RBC (4.30-5.90) m/uL Hgb (13.0-17.5) gm/dL Hct (39.0-53.0) % Plt Count (150-450) k/uL Chloride (98-107) mmol/L BUN (9-20) mg/dL Creatinine (0.66-1.25) mg/dL Glucose (74-99) mg/dL POC Glucose (mg/dL) 169 H (75-99) mg/dL Calcium (8.4-10.2) mg/dL Total Protein (PEP) 4.8 L (6.2-8.2) g/dL Tot Complement (CH50) >98 H (42 - 95) U/mL 12/16/18 12/16/18 12/17/18 Range/Units 16:38 20:05 05:46 RBC 2.55 L (4.30-5.90) m/uL Hgb 7.3 L (13.0-17.5) gm/dL Hct 21.1 L (39.0-53.0) % Plt Count 118 L (150-450) k/uL Chloride (98-107) mmol/L BUN (9-20) mg/dL Creatinine (0.66-1.25) mg/dL Glucose (74-99) mg/dL POC Glucose (mg/dL) 211 H 118 H (75-99) mg/dL Calcium (8.4-10.2) mg/dL Total Protein (PEP) (6.2-8.2) g/dL Tot Complement (CH50) (42 - 95) U/mL 12/17/18 12/17/18 Range/Units 05:46 06:17 RBC (4.30-5.90) m/uL Hgb (13.0-17.5) gm/dL Hct (39.0-53.0) % Plt Count (150-450) k/uL Chloride 110 H (98-107) mmol/L BUN 41 H (9-20) mg/dL Creatinine 2.56 H (0.66-1.25) mg/dL Glucose 183 H (74-99) mg/dL POC Glucose (mg/dL) 210 H (75-99) mg/dL Calcium 7.5 L (8.4-10.2) mg/dL Total Protein (PEP) (6.2-8.2) g/dL Tot Complement (CH50) (42 - 95) U/mL Microbiology - Last 24 Hours (Table) 12/12/18 17:51 Blood Culture - Preliminary Blood No Growth after 96 hours Assessment and Plan Plan: Assessment: 1. Acute kidney injury secondary to ATN secondary to hemodynamic instability as well as contrast-induced nephropathy. Creatinine peaked at 2.7 and his admission and is 2.56 today. Also component of urinary retention. No hydronephrosis noted on renal ultrasound. 2. Chronic kidney disease stage III with Baseline creatinine in the range of 1- 1.3 secondary to diabetic kidney disease. 3. Hypertensive urgency. Better. 4. Diastolic CHF with moderate mitral regurgitation. 5. Anemia of chronic disease. Iron deficiency noted. 6. Insulin-dependent diabetes mellitus. 7. Urinary retention status post Garcia catheter placement. Also on Flomax. Plan: Agree with holding lisinopril and metformin at this time. IV iron 3 doses. do secondse today. I will also check serologies to rule out underlying GN - negative so far. Stable to be discharged home from nephrology standpoint. Follow-up with urology within 1 week. He will also need to follow-up in our office in 1-2 weeks. Case discussed with attending physician.
--- NOTE | 2018-12-17 09:56 | P.DS ---
Providers Date of admission: 12/14/18 15:07 Expected date of discharge: 12/17/18 Attending physician: Shakeel Miramontes Consults: 12/12/18 17:17 Consult Physician Stat Consulting Provider: Jonah Limon Consult Reason/Comments: Headache, elevated BP, nausea, vomiting Do you want consulting provider notified?: Already Contacted 12/12/18 17:32 Consult Physician Routine Consulting Provider: Frandy Jones Consult Reason/Comments: cad, hypertension, ROGERIO?? Do you want consulting provider notified?: Yes 12/15/18 09:32 Consult Physician Routine Consulting Provider: Ricky Nieves Consult Reason/Comments: arf Do you want consulting provider notified?: Yes Primary care physician: Tyler Newton [facility] Course: 53-year-old gentleman who follows with Dr. kathia leon in the office. He has a known history of diabetes, hypertension, rheumatoid arthritis, hyperlipidemia, family history of coronary artery disease, history of prior CVA, underwent a cardiac catheterization in October of last year with subsequent angioplasty and stenting of a chronically diseased diffusely calcified mid and proximal circumflex artery. He presents to the hospital on this occasion with symptoms of progressive weakness with associated episodes of vomiting and decreased intake at home. He has been able to take many of his medications including his antihypertensives because of the persistent nausea and vomiting. The TA of the brain was performed which was negative. EKG shows a normal sinus rhythm with no acute changes. Chest x-ray normal. On arrival to the hospital, blood pressure 233/97, heart rate in the 80s, temperature 90.9, 99% on room air. Blood Pressure this morning 140/70 with a heart rate in the 70s, 95% on room air. Admission labs, blood cell count 7.7, hemoglobin 10.0, platelet count 181, sodium 141, potassium 3.9, BUN 17 and creatinine 1.6. Troponin 0.043. This morning's labs, white blood cell count 7.9, hemoglobin down to 7.5, platelet count 158. Blood gases were obtained, pH 7.3, pCO2 47 and HCO3 22. Sodium 138, potassium 4.4, BUN 24 and creatinine 2.3. 12/14/2018 Patient was seen and examined today, much more alert today, feeling better ov erall. Blood pressure earlier this morning 198/90, Norvasc was added to his medication regime. Echocardiogram with Doppler study showed a normal ejection fraction. 12/16/2018 Patient underwent a ROGERIO yesterday which revealed severe degree of LVH with normal left ventricular systolic function, no evidence of thrombus in the left atrium or atrial appendage. Mild mitral regurgitation intra-atrial septum is intact no evidence for patent foramen ovale. No definite evidence of any cardiac source of emboli. Overall the patient is doing well this morning, blood pressure 132/70 with a heart rate in the 70s, he was up ambulating with physical therapy today 12/17/18 patient is clearde for dc by Neurology, Cards and Nephro service. patient unable to void and has a bustos cath in; will follow up with primary urologist will dc Patient Condition at Discharge: Stable Plan - Discharge Summary Discharge Rx Participant: No New Discharge Prescriptions: New hydrALAZINE HCL [Apresoline] 50 mg PO QID #120 tab amLODIPine [Norvasc] 5 mg PO DAILY #30 tab Continue sitaGLIPtin [Januvia] 100 mg PO QAM Lurasidone [Latuda] 40 mg PO HS Glimepiride [Amaryl] 1 mg PO QAM Gabapentin 600 mg PO BID Docusate Sodium [Dok] 100 mg PO BID cloNIDine HCL [Catapres] 0.2 mg PO BID Lisinopril [Zestril] 20 mg PO BID Pantoprazole [Protonix] 40 mg PO BID Tamsulosin [Flomax] 0.4 mg PO BID Atorvastatin [Lipitor] 80 mg PO HS tab Metoprolol Tartrate [Lopressor] 25 mg PO BID #60 tab Nitroglycerin Sl Tabs [Nitrostat] 0.4 mg SUBLINGUAL Q5M PRN #25 tab PRN Reason: Chest Pain metFORMIN HCL 1,000 mg PO BID #0 Clopidogrel [Plavix] 75 mg PO QAM Aspirin 81 mg PO DAILY chew Loratadine [Claritin] 10 mg PO DAILY Citalopram Hydrobromide [CeleXA] 60 mg PO DAILY Butalb/APAP/Caff 50-325-40Mg [Fioricet 50-325-40] 1 tab PO Q4H PRN PRN Reason: Migraine Headache Triamcinolone 0.1% Ointment [Kenalog 0.1% Ointment] 1 applicate TOPICAL BID Mupirocin 2% Oint [Bactroban 2% Oint] 1 applic TOPICAL BID Discharge Medication List Docusate Sodium [Dok] 100 mg PO BID 09/12/17 [History] Gabapentin 600 mg PO BID 09/12/17 [History] Glimepiride [Amaryl] 1 mg PO QAM 09/12/17 [History] Lisinopril [Zestril] 20 mg PO BID 09/12/17 [History] Lurasidone [Latuda] 40 mg PO HS 09/12/17 [History] cloNIDine HCL [Catapres] 0.2 mg PO BID 09/12/17 [History] sitaGLIPtin [Januvia] 100 mg PO QAM 09/12/17 [History] Pantoprazole [Protonix] 40 mg PO BID 11/05/17 [History] Tamsulosin [Flomax] 0.4 mg PO BID 11/05/17 [History] Atorvastatin [Lipitor] 80 mg PO HS tab 11/12/17 [Rx] Metoprolol Tartrate [Lopressor] 25 mg PO BID #60 tab 11/12/17 [Rx] Nitroglycerin Sl Tabs [Nitrostat] 0.4 mg SUBLINGUAL Q5M PRN #25 tab 11/12/17 [Rx] metFORMIN HCL 1,000 mg PO BID #0 11/12/17 [Rx] Clopidogrel [Plavix] 75 mg PO QAM 12/09/17 [History] Aspirin 81 mg PO DAILY chew 12/15/17 [Rx] Butalb/APAP/Caff 50-325-40Mg [Fioricet 50-325-40] 1 tab PO Q4H PRN 12/12/18 [History] Citalopram Hydrobromide [CeleXA] 60 mg PO DAILY 12/12/18 [History] Loratadine [Claritin] 10 mg PO DAILY 12/12/18 [History] Mupirocin 2% Oint [Bactroban 2% Oint] 1 applic TOPICAL BID 12/13/18 [History] Triamcinolone 0.1% Ointment [Kenalog 0.1% Ointment] 1 applicate TOPICAL BID 12/13/18 [History] amLODIPine [Norvasc] 5 mg PO DAILY #30 tab 12/17/18 [Rx] hydrALAZINE HCL [Apresoline] 50 mg PO QID #120 tab 12/17/18 [Rx] Follow up Appointment(s)/Referral(s): Lamar Scott MD [Primary Care Provider] - 12/28/18 1:40 pm (Thursday) Ricky Nieves DO [STAFF PHYSICIAN] - 1 Week (Office is currently closed. Please call to schedule appointment) Beba Church MD [STAFF PHYSICIAN] - 12/29/18 9:15 am (Thursday) [facility] Visiting Nurse, [NON-STAFF] - Patient Instructions/Handouts: Acute Kidney Injury (DC), DASH Eating Plan (DC), Hypertensive Crisis (DC), Diabetic Hyperglycemia (DC) Discharge Disposition: HOME SELF-CARE
[2018-12-17] MEDS: amLODIPine 5 MG TAB PO SCH (10:06)
--- NOTE | 2018-12-17 11:13 | P.PN ---
Subjective Progress Note Date: 12/17/18 This is a 53-year-old gentleman who follows with Dr. kathia leon in the office. He has a known history of diabetes, hypertension, rheumatoid arthritis, hyperlipidemia, family history of coronary artery disease, history of prior CVA, underwent a cardiac catheterization in October of last year with subsequent angioplasty and stenting of a chronically diseased diffusely calcified mid and proximal circumflex artery. He presents to the hospital on this occasion with symptoms of progressive weakness with associated episodes of vomiting and decreased intake at home. He has been able to take many of his medications including his antihypertensives because of the persistent nausea and vomiting. The TA of the brain was performed which was negative. EKG shows a normal sinus rhythm with no acute changes. Chest x-ray normal. On arrival to the hospital, blood pressure 233/97, heart rate in the 80s, temperature 90.9, 99% on room air. Blood Pressure this morning 140/70 with a heart rate in the 70s, 95% on room air. Admission labs, blood cell count 7.7, hemoglobin 10.0, platelet count 181, sodium 141, potassium 3.9, BUN 17 and creatinine 1.6. Troponin 0.043. This morning's labs, white blood cell count 7.9, hemoglobin down to 7.5, platelet count 158. Blood gases were obtained, pH 7.3, pCO2 47 and HCO3 22. Sodium 138, potassium 4.4, BUN 24 and creatinine 2.3. 12/14/2018 Patient was seen and examined today, much more alert today, feeling better overall. Blood pressure earlier this morning 198/90, Norvasc was added to his medication regime. Echocardiogram with Doppler study showed a normal ejection fraction. 12/16/2018 Patient underwent a ROGERIO yesterday which revealed severe degree of LVH with normal left ventricular systolic function, no evidence of thrombus in the left atrium or atrial appendage. Mild mitral regurgitation intra-atrial septum is intact no evidence for patent foramen ovale. No definite evidence of any cardiac source of emboli. Overall the patient is doing well this morning, blood pressure 132/70 with a heart rate in the 70s, he was up ambulating with physical therapy today 12/17/18 Pt seen and examined this day and doing well. Pt has no current c/o of chest pain, chest pressure, SOB or lower extremity edema. Pt blood pressure stable. Clear from a cardiology perspective to go home. PHYSICAL EXAM: VITAL SIGNS: GENERAL: Well developed, in no acute distress. HEENT: Head is atraumatic, normocephalic. Pupils are equal, round. Extra ocular movements intact. Mucous membranes moist. Neck supple. No JVD. No carotid bruit. No thyromegaly. LUNGS: Clear to auscultation no wheezes, rales or rhonchi. No chest wall ten derness on palpation or with deep breathing. HEART: Regular rate and rhythm, no rubs or gallops. S1 and S2 heard. No murmur. ABDOMEN: Abdominal exam, WNL. Bowel sounds x4 quads. Soft, non-tender, without masses, organomegaly, or abdominal aorta enlargement. EXTREMITIES/VASCULAR: Extremities have easily palpable radial, femoral, dorsalis pedis and posterior tibial pulses. No cyanosis, calf tenderness. No BLE edema. NEUROLOGIC: Patient is awake, alert and oriented x3. No focal neurologic abnor malities. Plan: Assessment and plan #1 accelerated hypertension #2 mental status change, rule out TIA, recurrent CVA #3 history of recent CVA #4 persistent nausea and vomiting with associated decreased appetite #5 diabetes #6 hyperlipidemia #7 rheumatoid arthritis #8 history of anxiety or depression #9 abnormal troponin, patient denies having any chest discomfort #10 coronary artery disease with prior PCI, patient underwent PTCA and stenting of a dominant mid and proximal circumflex artery in 2018 #11 anemia Plan: Pt feeling much better. Vital signs are stable. Clear for discharge from a cardiology perspective. Thank you kindly for this consult. Objective - Vital Signs Vital signs: Vital Signs Temp 98.1 F 12/17/18 08:26 Pulse 73 12/17/18 08:26 Resp 20 12/17/18 08:26 BP 144/75 12/17/18 08:26 Pulse Ox 97 12/17/18 08:26 Intake & Output 12/16/18 12/17/18 12/17/18 18:59 06:59 18:59 Intake Total 1065 150 360 Output Total 750 600 800 Balance 315 -450 -440 Weight 89.5 kg Intake: IV 750 150 Magnesium Sulfate-D5w Pmx 200 1 gm In Dextrose/Water 1 100ml.bag @ 100 mls/hr IVPB Q1H [facility] Rx#: [id number] Sodium Chloride 0.9% 1, 450 150 000 ml @ 50 mls/hr IV . Q20H JAD Rx#:[id number] Sodium Ferric Gluconat- 100 Sucrose 125 mg In Sodium Chloride 0.9% 100 ml @ 100 mls/hr IVPB DAILY [facility] Rx#:[id number] Oral 315 360 Output: Urine 750 600 800 Uretheral (Garcia) 500 Other: Voiding Method Indwelling Catheter Indwelling Catheter Indwelling Catheter - Labs CBC & Chem 7: 12/17/18 05:46 12/17/18 05:46 Labs: Abnormal Lab Results - Last 24 Hours (Table) 12/16/18 12/16/18 12/16/18 Range/Units 11:28 12:40 12:40 RBC (4.30-5.90) m/uL Hgb (13.0-17.5) gm/dL Hct (39.0-53.0) % Plt Count (150-450) k/uL Chloride (98-107) mmol/L BUN (9-20) mg/dL Creatinine (0.66-1.25) mg/dL Glucose (74-99) mg/dL POC Glucose (mg/dL) 169 H (75-99) mg/dL Calcium (8.4-10.2) mg/dL Total Protein (PEP) 4.8 L (6.2-8.2) g/dL Tot Complement (CH50) >98 H (42 - 95) U/mL 12/16/18 12/16/18 12/17/18 Range/Units 16:38 20:05 05:46 RBC 2.55 L (4.30-5.90) m/uL Hgb 7.3 L (13.0-17.5) gm/dL Hct 21.1 L (39.0-53.0) % Plt Count 118 L (150-450) k/uL Chloride (98-107) mmol/L BUN (9-20) mg/dL Creatinine (0.66-1.25) mg/dL Glucose (74-99) mg/dL POC Glucose (mg/dL) 211 H 118 H (75-99) mg/dL Calcium (8.4-10.2) mg/dL Total Protein (PEP) (6.2-8.2) g/dL Tot Complement (CH50) (42 - 95) U/mL 12/17/18 12/17/18 Range/Units 05:46 06:17 RBC (4.30-5.90) m/uL Hgb (13.0-17.5) gm/dL Hct (39.0-53.0) % Plt Count (150-450) k/uL Chloride 110 H (98-107) mmol/L BUN 41 H (9-20) mg/dL Creatinine 2.56 H (0.66-1.25) mg/dL Glucose 183 H (74-99) mg/dL POC Glucose (mg/dL) 210 H (75-99) mg/dL Calcium 7.5 L (8.4-10.2) mg/dL Total Protein (PEP) (6.2-8.2) g/dL Tot Complement (CH50) (42 - 95) U/mL Microbiology - Last 24 Hours (Table) 12/12/18 17:51 Blood Culture - Preliminary Blood No Growth after 96 hours
[2018-12-17 11:38] LABS: Glucose,Whole Blood 173 mg/dL (75-99)
[2018-12-17 11:51] LABS: Complement C3 82.8 mg/dL (80.0-207.0)
[2018-12-17 12:09] VITALS: BP 128/71
[2018-12-17 12:46] LABS: Albumin 2.74 g/dL (3.80-4.90); Gamma Globulin 0.55 g/dL (0.70-1.50)
[2018-12-17 15:17] LABS: C-ANCA <1:20 Titer (<1:20); P-ANCA <1:20 Titer (<1:20)
--- NOTE | 2018-12-17 17:40 | PN ---
PROGRESS NOTE DATE OF SERVICE: Mr. Tinajero is in sinus rhythm today. This gentleman came with clear hypertension and a recent stroke. His ROGERIO was unremarkable. His blood pressure control is good. I reviewed his medications. I am recommending that he can be discharged on current medications and see Dr. Jovanni Church in 2 weeks. Vitals are stable. No JVD. S1, S2 heard normally. Heart sounds heard distantly. Lungs are clear. Abdomen and lower extremity exam unchanged. MMODL / IJN: [id number] /
== END 2018-12-17 13:03 | disposition home health service (06) | DRG 304 ==
LOC: EC 12:49 → 3SCARD 17:11 → OBSVTOIN 12-14 15:07
PROVIDERS: ADMIT Hospitalist; ATTEND Hospitalist
PROC: B246ZZ4 Ultrasonography of Right and Left Heart, Transesophageal (ICD-10-PCS; principal; 2018-12-15 10:25)
DX: I16.0 Hypertensive urgency (principal); N17.0 Acute kidney failure with tubular necrosis; I67.4 Hypertensive encephalopathy; I69.354 Hemiplegia and hemiparesis following cerebral infarction affecting left non-dominant side; I50.32 Chronic diastolic (congestive) heart failure; N17.9 Acute kidney failure, unspecified; E11.22 Type 2 diabetes mellitus with diabetic chronic kidney disease; E11.42 Type 2 diabetes mellitus with diabetic polyneuropathy; N18.3 Chronic kidney disease, stage 3 (moderate); I13.0 Hypertensive heart and chronic kidney disease with heart failure and stage 1 through stage 4 chronic kidney disease, or unspecified chronic kidney disease; I69.392 Facial weakness following cerebral infarction; R40.2362 Coma scale, best motor response, obeys commands, at arrival to emergency department; R40.2142 Coma scale, eyes open, spontaneous, at arrival to emergency department; R40.2252 Coma scale, best verbal response, oriented, at arrival to emergency department; N40.1 Benign prostatic hyperplasia with lower urinary tract symptoms; I34.0 Nonrheumatic mitral (valve) insufficiency; R33.8 Other retention of urine; D63.8 Anemia in other chronic diseases classified elsewhere; I25.10 Atherosclerotic heart disease of native coronary artery without angina pectoris; E78.5 Hyperlipidemia, unspecified; N14.1 Nephropathy induced by other drugs, medicaments and biological substances; T50.8X5A Adverse effect of diagnostic agents, initial encounter; K21.9 Gastro-esophageal reflux disease without esophagitis; H54.8 Legal blindness, as defined in USA; F32.9 Major depressive disorder, single episode, unspecified; F41.9 Anxiety disorder, unspecified; G43.909 Migraine, unspecified, not intractable, without status migrainosus; M06.9 Rheumatoid arthritis, unspecified; E61.1 Iron deficiency; R26.2 Difficulty in walking, not elsewhere classified; I25.2 Old myocardial infarction; Z79.82 Long term (current) use of aspirin; Z79.02 Long term (current) use of antithrombotics/antiplatelets; Z79.4 Long term (current) use of insulin; Z79.899 Other long term (current) drug therapy; Z95.5 Presence of coronary angioplasty implant and graft; Z87.19 Personal history of other diseases of the digestive system; Z91.041 Radiographic dye allergy status; Z83.3 Family history of diabetes mellitus; Z82.49 Family history of ischemic heart disease and other diseases of the circulatory system
CPT/HCPCS: 36415; 70496; 70551; 71045; 76770; 80048; 80053; 80074; 81001; 82009; 82728; 82803; 83036; 83540; 83550; 83690; 83735; 84165; 84484; 85025; 85610; 85730; 86038; 86160; 86162; 86225; 86255; 86334; 86335; 87040; 87324; 93005; 93306; 93312; 93320; 93325; 96361; 96374; 96375; 96376; 99285

== ENCOUNTER → 2019-01-10 | Outpatient (CLI) | payer OTHER ==
[2019-01-10 10:17] LABS: Basophils % (A) 0 %; Eosinophils # (A) 0.1 k/uL (0-0.7); Eosinophils % (A) 3 %; HCT 22.1 % (39.0-53.0); HGB 7.7 gm/dL (13.0-17.5); Lymphocytes # (A) 0.7 k/uL (1.0-4.8); Lymphocytes % (A) 17 %; MCH 29.7 pg (25.0-35.0); MCHC 34.8 g/dL (31.0-37.0); MCV 85.5 fL (80.0-100.0); Monocytes # (A) 0.3 k/uL (0-1.0); Monocytes % (A) 6 %; Neutrophils # (A) 3.1 k/uL (1.3-7.7); Neutrophils % (A) 72 %; Platelet Count 134 k/uL (150-450); RBC 2.59 m/uL (4.30-5.90); RDW 14.2 % (11.5-15.5); WBC 4.3 k/uL (3.8-10.6)
[2019-01-10 11:29] LABS: Appearance,Urine Clear (Clear); Bilirubin,Urine Negative (Negative); Blood,Urine Negative (Negative); Color,Urine Yellow; Glucose,Urine (UA) 4+ (Negative); Hyaline Casts,Urine 3 /lpf (0-2); Ketones,Urine Negative (Negative); Leukocyte Esterase,Urine Negative (Negative); Nitrite,Urine Negative (Negative); PH, Urine 6.5 (5.0-8.0); Protein,Urine 1+ (Negative); RBC,Urine 1 /hpf (0-5); Specific Gravity,Urine 1.012 (1.001-1.035); Urobilinogen,Urine <2.0 mg/dL (<2.0); WBC,Urine <1 /hpf (0-5)
[2019-01-10 18:06] LABS: Creatinine,Urine Random 88.6 mg/dL
[2019-01-10 18:24] LABS: Total Protein,Urine Random 66.1 mg/dL (0.0-13.5)
[2019-01-10 18:41] LABS: African American GFR (CKD) 34.9 (60.0-200.0); Albumin/Globulin Ratio 2.22 (1.60-3.17); Anion Gap 11.9 mmol/L (4.00-12.00); BUN/Creat Ratio 18.33 Ratio (12.00-20.00); Calcium 8.5 mg/dL (8.7-10.3); Carbon Dioxide 24.1 mmol/L (21.6-31.8); Globulin 1.8 g/dL (1.6-3.3); Magnesium 2.3 mg/dL (1.5-2.4); Non-African American GFR(CKD) 30.1 (60.0-200.0); Phosphorus 4.1 mg/dL (2.4-5.1); Total Bilirubin 0.3 mg/dL (0.3-1.2); Total Protein 5.8 g/dL (6.2-8.2)
[2019-01-10 18:44] LABS: Ferritin 332.2 ng/mL (22.0-322.0); Iron Saturation 21.55 (15.00-50.00)
[2019-01-10 19:25] LABS: Uric Acid 8.3 mg/dL (3.7-8.7)
== END | disposition home or self-care (01) ==
LOC: LABWHC1 09:15
PROVIDERS: ATTEND Internal Medicine Nephrology
DX: E55.9 Vitamin D deficiency, unspecified (principal); D64.9 Anemia, unspecified; N25.81 Secondary hyperparathyroidism of renal origin; M10.9 Gout, unspecified; N39.0 Urinary tract infection, site not specified; N18.9 Chronic kidney disease, unspecified; E83.40 Disorders of magnesium metabolism, unspecified
CPT/HCPCS: 36415; 80053; 81001; 82306; 82570; 82728; 83540; 83550; 83735; 83970; 84100; 84156; 84550; 85025

== ENCOUNTER 2019-01-17 19:05 | Inpatient (IN) | payer OTHER ==
[2019-01-17] MEDS ORDERED: NITROGLYCERIN OINT 1 INCH/GM PACKET TOPICAL STA (19:23)
[2019-01-17] MEDS ORDERED: SODIUM CHLORIDE 0.9% 1,000 ML IV STA (19:23)
--- NOTE | 2019-01-17 19:27 | ED ---
Chest Pain HPI - General Chief Complaint: Chest Pain Stated Complaint: Chest Pain Time Seen by Provider: 01/17/19 19:05 Source: patient, EMS, RN notes reviewed Mode of arrival: EMS Limitations: no limitations - History of Present Illness Initial Comments: This is a 53-year-old male history of heart disease and stents who states he started having chest pain about one hour prior to arrival. He states it was midsternal at bedtime in severity squeezing-like pain he did take 325 of aspirin as well as was given nitroglycerin by paramedics states the pain is somewhat improved at this time it also gets worse with deep breathing. No fevers chills nausea vomiting sweats or other symptoms. MD Complaint: chest pain - Related Data Home Medications Medication Instructions Recorded Confirmed Docusate Sodium [Dok] 100 mg PO BID 09/12/17 01/17/19 Gabapentin 600 mg PO BID 09/12/17 01/17/19 Glimepiride [Amaryl] 1 mg PO QAM 09/12/17 01/17/19 Lurasidone [Latuda] 40 mg PO HS 09/12/17 01/17/19 sitaGLIPtin [Januvia] 100 mg PO QAM 09/12/17 01/17/19 Pantoprazole [Protonix] 40 mg PO BID 11/05/17 01/17/19 Tamsulosin [Flomax] 0.4 mg PO BID 11/05/17 01/17/19 Clopidogrel [Plavix] 75 mg PO HS 12/09/17 01/17/19 Butalb/APAP/Caff 50-325-40Mg 1 tab PO Q4H PRN 12/12/18 01/17/19 [Fioricet 50-325-40] Citalopram Hydrobromide [CeleXA] 60 mg PO DAILY 12/12/18 01/17/19 Loratadine [Claritin] 10 mg PO DAILY 12/12/18 01/17/19 Aspirin 81 mg PO HS 01/17/19 01/17/19 Previous Rx's Medication Instructions Recorded Atorvastatin [Lipitor] 80 mg PO HS tab 11/12/17 Metoprolol Tartrate [Lopressor] 50 mg PO BID #60 tab 12/17/18 amLODIPine [Norvasc] 5 mg PO DAILY #30 tab 12/17/18 cloNIDine HCL [Catapres] 0.2 mg PO TID #90 tab 12/17/18 hydrALAZINE HCL [Apresoline] 50 mg PO QID #120 tab 12/17/18 Allergies Allergy/AdvReac Type Severity Reaction Status Date / Time Iodinated Contrast- Oral and Allergy Nausea & Verified 01/17/19 19:35 IV Dye Vomiting Review of Systems ROS Statement: Those systems with pertinent positive or pertinent negative responses have been documented in the HPI. ROS Other: All systems not noted in ROS Statement are negative. EKG Findings - EKG Results: EKG: interpreted by ERMD, sinus rhythm (Normal sinus rhythm 86. A 142 QRS duration 100 QT since QTC 396/[address]-T wave changes this is compared with EKG dated 12/12/18 demonstrating a similar configuration) Past Medical History Past Medical History: CVA/TIA, Diabetes Mellitus, GERD/Reflux, Hyperlipidemia, Hypertension, Myocardial Infarction ([place]), Renal Disease, Rheumatoid Arthritis ([place]) Additional Past Medical History / Comment(s): stroke apr 2017, migranes, diabetic neuropathy arms and legs, stage 2 kidney failure, PANCREATITIS, LEGALLY BLIND, enlarged prostate, trouble urinating Last Myocardial Infarction Date:: 2014? not sure History of Any Multi-Drug Resistant Organisms: None Reported Past Surgical History: No Surgical Hx Reported Additional Past Surgical History / Comment(s): EGD Past Anesthesia/Blood Transfusion Reactions: No Reported Reaction Additional Past Anesthesia/Blood Transfusion Reaction / Comment(s): never had anethesia Date of Last Stent Placement:: 11/11/2017 Past Psychological History: Anxiety, Depression Smoking Status: Never smoker Past Alcohol Use History: None Reported Past Drug Use History: None Reported - Past Family History Mother Family Medical History: CVA/TIA, Diabetes Mellitus, Hypertension Additional Family Medical History / Comment(s): Mother is 77yrs old. Father Family Medical History: CVA/TIA, Diabetes Mellitus, Myocardial Infarction ([place]) Additional Family Medical History / Comment(s): Father of a [place] in his 50s. General Exam - General Exam Comments Initial Comments: This is a well developed well-nourished awake alert oriented times 3 male Limitations: no limitations General appearance: alert, anxious Head exam: Present: atraumatic, normocephalic, normal inspection Eye exam: Present: normal appearance, PERRL, EOMI. Absent: scleral icterus, conjunctival injection, periorbital swelling ENT exam: Present: normal exam, mucous membranes moist Neck exam: Present: normal inspection, full ROM, other (No stridor JVD or bruits). Absent: tenderness, meningismus, lymphadenopathy Respiratory exam: Present: normal lung sounds bilaterally, chest wall tenderness. Absent: respiratory distress, wheezes, rales, rhonchi, stridor Cardiovascular Exam: Present: regular rate, normal rhythm, normal heart sounds. Absent: systolic murmur, diastolic murmur, rubs, gallop, clicks GI/Abdominal exam: Present: soft, normal bowel sounds. Absent: distended, tenderness, guarding, rebound, rigid Extremities exam: Present: normal inspection, full ROM, normal capillary refill. Absent: tenderness, pedal edema, joint swelling, calf tenderness Back exam: Present: normal inspection Neurological exam: Present: alert, oriented X3, CN II-XII intact Psychiatric exam: Present: normal affect, normal mood Skin exam: Present: warm, dry, intact, normal color. Absent: rash Course Vital Signs 01/17/19 01/17/19 01/17/19 19:07 19:51 21:54 Temperature 98 F Pulse Rate 104 H 80 69 Respiratory 22 18 18 Rate Blood Pressure 215/90 188/91 167/77 O2 Sat by Pulse 97 96 96 Oximetry Chest Pain MDM - MDM Did review the imaging and report no acute findings. Patient does have some reproducibility with chest pain due to his previous history and symptoms he will be admitted for evaluation by cardiology at did discuss case with Dr. Valdovinos. 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 Disposition Clinical Impression: Chest pain, Chronic anemia, Renal insufficiency syndrome Disposition: ADMITTED IP TO THIS [facility] Condition: Fair Referrals: None,Stated [REFERRING] - 1-2 days
[2019-01-17 19:39] LABS: Basophils % (A) 0 %; Eosinophils # (A) 0.2 k/uL (0-0.7); Eosinophils % (A) 3 %; HCT 23.8 % (39.0-53.0); HGB 7.9 gm/dL (13.0-17.5); Lymphocytes # (A) 1.2 k/uL (1.0-4.8); Lymphocytes % (A) 20 %; MCH 28.6 pg (25.0-35.0); MCHC 33.4 g/dL (31.0-37.0); MCV 85.7 fL (80.0-100.0); Mean Platelet Volume 6.8; Monocytes # (A) 0.4 k/uL (0-1.0); Monocytes % (A) 6 %; Neutrophils # (A) 4.2 k/uL (1.3-7.7); Neutrophils % (A) 69 %; Platelet Count 146 k/uL (150-450); RBC 2.77 m/uL (4.30-5.90); RDW 14.1 % (11.5-15.5); WBC 6.1 k/uL (3.8-10.6)
--- NOTE | 2019-01-17 19:49 | XR ---
EXAMINATION TYPE: XR chest 2V DATE OF EXAM: 01/17/2019 COMPARISON: 12/12/2018 HISTORY: Chest pain TECHNIQUE: Frontal and lateral views of the chest are obtained. FINDINGS: There is no heart failure nor confluent pneumonic infiltrate. Costophrenic angles are jada r. There are chest leads. Bony thorax is intact. IMPRESSION: No active cardiopulmonary disease. Normal heart. No change.
[2019-01-17 19:50] LABS: Albumin 4.1 g/dL (3.5-5.0); Calcium 9.2 mg/dL (8.4-10.2); Potassium 4.3 mmol/L (3.5-5.1); Total Bilirubin 0.4 mg/dL (0.2-1.3); Total Protein 6.8 g/dL (6.3-8.2)
[2019-01-17 19:55] LABS: Prothrombin Time 10.5 sec (9.0-12.0)
[2019-01-17] MEDS ORDERED: BUTALB/APAP/CAFF 50-325-40MG TAB PO PRN (23:10)
[2019-01-18] MEDS ORDERED: HEPARIN SODIUM,PORCINE 5,000 UNIT/ML 1 ML VIAL IV STA (03:49)
[2019-01-18] MEDS: HEPARIN SOD,PORK IN 0.45% NACL 25,000 UNIT in 0.45% NACL 1 250ML.BAG IV SCH (04:23)
[2019-01-18] MEDS: NITROGLYCERIN OINT 1 INCH/GM PACKET TOPICAL SCH ×4 (04:30→18:19)
[2019-01-18 07:41] LABS: Cholesterol 90 mg/dL (<200); HDL Cholesterol 34 mg/dL (40-60); LDL Cholesterol,Calculated 32 mg/dL (0-99); Triglycerides 120 mg/dL (<150)
[2019-01-18 07:42] LABS: Glucose,Whole Blood 240 mg/dL (75-99)
[2019-01-18] MEDS ORDERED: ASPIRIN 325 MG TAB PO SCH (09:00)
[2019-01-18] MEDS ORDERED: PANTOPRAZOLE 40 MG TABLET PO SCH (09:00)
[2019-01-18] MEDS ORDERED: cloNIDine HCL 0.2 MG TAB PO SCH (09:00)
[2019-01-18] MEDS ORDERED: METOPROLOL TARTRATE 50 MG TAB PO SCH (09:00)
[2019-01-18] MEDS: INSULIN ASPART (NovoLOG) 100 UNIT/ML VIAL SQ SCH ×3 (09:37→17:21)
[2019-01-18] MEDS: ONDANSETRON 4 MG/2 ML VIAL IVP PRN ×2 (10:12→21:00)
--- NOTE | 2019-01-18 10:40 | P.NPCON ---
History of Present Illness - Reason for Consult acute renal failure, chronic renal failure - History of Present Illness Reason for consultation: Chronic kidney disease. History of present illness: Patient is a 53-year-old male seen in renal consultation for chronic kidney disease. Patient was seen and examined in the emergency room. Patient has chronic kidney disease stage III with baseline creatinine recently in the range of 1.6-2 secondary to diabetic kidney disease. Patient presented to the hosp [facility] with chest pain which started yesterday evening at 6 PM. Patient describes the pain as squeezing and states he took an aspirin. He does have history of coronary artery disease and has [address] Denies vomiting or diarrhea prior to admission. Patient states he did vomit while in the ER. He is a chronic Garcia catheter for urinary retention. He has been voiding. No active chest pain or shortness of breath. He is currently maintained on IV heparin. Denies use of nonsteroidals. He does have history of diabetes mellitus. Blood pressures are on the higher side. No evidence of fluid overload on chest x-ray. Renal ultrasound from November 2018 revealed no evidence of hydronephrosis. Patient has history of diastolic CHF with moderate MR. Vital signs are stable. General: The patient appeared well nourished and normally developed. HEENT: Head exam is unremarkable. Neck is without jugular venous distension. LUNGS: Lungs are clear to auscultation and percussion. Breath sounds decreased. HEART: Rate and Rhythm are regular. First and second heart sounds normal. No murmurs, rubs or gallops. ABDOMEN: Abdominal exam reveals normal bowel sounds. Non-tender and non-distended. No evidence of peritonitis. EXTREMITITES: Trace edema. Past Medical History Past Medical History: CVA/TIA, Diabetes Mellitus, GERD/Reflux, Hyperlipidemia, Hypertension, Myocardial Infarction ([place]), Renal Disease, Rheumatoid Arthritis ([place]) Additional Past Medical History / Comment(s): stroke apr 2017, migranes, diabetic neuropathy arms and legs, stage 2 kidney failure, PANCREATITIS, LEGALLY BLIND, enlarged prostate, trouble urinating Last Myocardial Infarction Date:: 2014? not sure History of Any Multi-Drug Resistant Organisms: None Reported Past Surgical History: No Surgical Hx Reported, Heart Catheterization With Stent Additional Past Surgical History / Comment(s): EGD, 4 stents Past Anesthesia/Blood Transfusion Reactions: No Reported Reaction Additional Past Anesthesia/Blood Transfusion Reaction / Comment(s): never had anethesia Date of Last Stent Placement:: 2017 Past Psychological History: Anxiety, Depression Additional Psychological History / Comment(s): Pt resides with his spouse. He uses a quad cane or walker to ambulate. He is legally blind. He reads minimally with magnifying glass and signs his name only now. His spouse drives him to [employer]. Smoking Status: Never smoker Past Alcohol Use History: None Reported Past Drug Use History: None Reported - Past Family History Mother Family Medical History: CVA/TIA, Diabetes Mellitus, Hypertension Additional Family Medical History / Comment(s): Mother is 77yrs old. Father Family Medical History: CVA/TIA, Diabetes Mellitus, Myocardial Infarction ([place]) Additional Family Medical History / Comment(s): Father of a [place] in his 50s. Medications and Allergies Home Medications Medication Instructions Recorded Confirmed Type Docusate Sodium [Dok] 100 mg PO BID 09/12/17 01/17/19 History Gabapentin 600 mg PO BID 09/12/17 01/17/19 History Glimepiride [Amaryl] 1 mg PO QAM 09/12/17 01/17/19 History Lurasidone [Latuda] 40 mg PO HS 09/12/17 01/17/19 History sitaGLIPtin [Januvia] 100 mg PO QAM 09/12/17 01/17/19 History Pantoprazole [Protonix] 40 mg PO BID 11/05/17 01/17/19 History Tamsulosin [Flomax] 0.4 mg PO BID 11/05/17 01/17/19 History Atorvastatin [Lipitor] 80 mg PO HS tab 11/12/17 01/17/19 Rx Clopidogrel [Plavix] 75 mg PO HS 12/09/17 01/17/19 History Butalb/APAP/Caff 50-325-40Mg 1 tab PO Q4H PRN 12/12/18 01/17/19 History [Fioricet 50-325-40] Citalopram Hydrobromide [CeleXA] 60 mg PO DAILY 12/12/18 01/17/19 History Loratadine [Claritin] 10 mg PO DAILY 12/12/18 01/17/19 History Metoprolol Tartrate [Lopressor] 50 mg PO BID #60 tab 12/17/18 01/17/19 Rx amLODIPine [Norvasc] 5 mg PO DAILY #30 tab 12/17/18 01/17/19 Rx cloNIDine HCL [Catapres] 0.2 mg PO TID #90 tab 12/17/18 01/17/19 Rx hydrALAZINE HCL [Apresoline] 50 mg PO QID #120 tab 12/17/18 01/17/19 Rx Aspirin 81 mg PO HS 01/17/19 01/17/19 History Allergies Allergy/AdvReac Type Severity Reaction Status Date / Time Iodinated Contrast- Oral and Allergy Nausea & Verified 01/17/19 19:35 IV Dye Vomiting Physical Exam Vitals: Vital Signs Temp Pulse Pulse Resp BP BP Pulse Ox 01/18/19 09:49 98.7 F 87 16 201/90 95 01/18/19 05:30 88 18 170/73 96 01/18/19 02:30 80 18 166/81 99 01/18/19 00:30 81 16 166/80 97 01/17/19 23:42 77 18 142/91 98 01/17/19 21:54 69 18 167/77 96 01/17/19 19:51 80 18 188/91 96 01/17/19 19:07 98 F 104 H 22 215/90 97 Intake and Output 01/17/19 01/18/19 01/18/19 22:59 06:59 14:59 Other: Weight 90.265 kg Results - Lab Results Most recent lab results Calcium 9.2 mg/dL (8.4-10.2) 01/17/19 19:21 Magnesium 2.0 mg/dL (1.6-2.3) 01/17/19 19:21 01/17/19 19:21 01/17/19 19:21 Assessment and Plan Plan: Assessment: 1. Chronic kidney disease stage III secondary to diabetic kidney disease with baseline creatinine in the range of 1.6-2 recently. GFR currently at baseline. Ultrasound from last month revealed no evidence of hydronephrosis. 2. Chest pain. Rule out acute coronary syndrome. Currently on heparin drip. 3. History of coronary artery disease status post 4 cardiac stents. 4. Urinary retention. Currently has a Garcia catheter in place. 5. Diabetes mellitus. 6. Diastolic CHF with moderate MR. Currently compensated. 7. Hypertension with chronic kidney disease. 8. Anemia chronic kidney disease. Rule out iron deficiency. Plan: I will decrease rate of normal saline to 50 mL an hour. Encourage oral intake. Resume home antihypertensives. Avoid nephrotoxins. Check iron studies. Continue to monitor renal function and urine output. Thank you for the consultation. I will continue to follow the patient with you during his hospital stay.
[2019-01-18] MEDS: amLODIPine 5 MG TAB PO SCH (13:15)
[2019-01-18] MEDS: CITALOPRAM HYDROBROMIDE 20 MG TAB PO SCH (13:15)
[2019-01-18] MEDS: hydrALAZINE HCL 50 MG TAB PO SCH ×4 (13:16→21:00)
[2019-01-18] MEDS: LINAGLIPTIN 5 MG TABLET PO SCH (13:16)
[2019-01-18] MEDS: DOCUSATE 100 MG CAP PO SCH ×2 (13:16→22:43)
[2019-01-18] MEDS: GABAPENTIN 300 MG CAP PO SCH ×2 (13:16→22:43)
[2019-01-18] MEDS: GLIMEPIRIDE 1 MG TAB PO SCH (13:16)
[2019-01-18] MEDS: LORATADINE 10 MG TAB PO SCH (13:17)
[2019-01-18] MEDS: TAMSULOSIN 0.4 MG CAP.ER.24H PO SCH ×2 (13:17→22:43)
[2019-01-18] MEDS ORDERED: HEPARIN SODIUM,PORCINE 5,000 UNIT/ML 1 ML VIAL IV PRN (13:19)
[2019-01-18 13:28] LABS: Glucose,Whole Blood 325 mg/dL (75-99)
[2019-01-18] MEDS: SODIUM CHLORIDE 0.9% 1,000 ML IV SCH (13:32)
[2019-01-18] MEDS ORDERED: BISACODYL 10 MG SUPP RECTAL STA (14:14)
--- NOTE | 2019-01-18 14:56 | P.HPIM ---
History of Present Illness 53-year-old male with known history of coronary artery disease in with compensative chest pain on the side of the chest squeezing squeezing kind of pain moderate amount of pain associated with nausea not related to food patient does describe some pleuritic competent to his chest pain. Patient denied any fever chills denied, was comparing of nauseaand vomiting patient was constipated last move his bowel about 5 days ago patient the abdomen is tympanic mildly distended opting abdominal x-ray. Patient has minimally elevated troponin of 0.288 and EKG did not show any acute ST-T wave changes. has constant chest pain moderate severity. Review of Systems REVIEW OF SYSTEMS: CONSTITUTIONAL: No fever, no malaise, no fatigue. HEENT: No recent visual problems or hearing problems. Denied any sore throat. CARDIOVASCULAR: No orthopnea, PND, no palpitations, no syncope. PULMONARY: No shortness of breath, no cough, no hemoptysis. GASTROINTESTINAL: no abdominal pain. NEUROLOGICAL: No headaches, no weakness, no numbness. HEMATOLOGICAL: Denies any bleeding or petechiae. GENITOURINARY: Denies any burning micturition, frequency, or urgency. MUSCULOSKELETAL/RHEUMATOLOGICAL: Denies any joint pain, swelling, or any muscle pain. ENDOCRINE: Denies any polyuria or polydipsia. The rest of the 14-point review of systems is negative. Past Medical History Past Medical History: CVA/TIA, Diabetes Mellitus, GERD/Reflux, Hyperlipidemia, Hypertension, Myocardial Infarction ([place]), Renal Disease, Rheumatoid Arthritis ([place]) Additional Past Medical History / Comment(s): stroke apr 2017, migranes, diabetic neuropathy arms and legs, stage 2 kidney failure, PANCREATITIS, LEGALLY BLIND, enlarged prostate, trouble urinating Last Myocardial Infarction Date:: 2014? not sure History of Any Multi-Drug Resistant Organisms: None Reported Past Surgical History: No Surgical Hx Reported, Heart Catheterization With Stent Additional Past Surgical History / Comment(s): EGD, 4 stents Past Anesthesia/Blood Transfusion Reactions: No Reported Reaction Additional Past Anesthesia/Blood Transfusion Reaction / Comment(s): never had anethesia Date of Last Stent Placement:: 2017 Past Psychological History: Anxiety, Depression Additional Psychological History / Comment(s): Pt resides with his spouse. He uses a quad cane or walker to ambulate. He is legally blind. He reads minimally with magnifying glass and signs his name only now. His spouse drives him to [employer]. Smoking Status: Never smoker Past Alcohol Use History: None Reported Past Drug Use History: None Reported - Past Family History Mother Family Medical History: CVA/TIA, Diabetes Mellitus, Hypertension Additional Family Medical History / Comment(s): Mother is 77yrs old. Father Family Medical History: CVA/TIA, Diabetes Mellitus, Myocardial Infarction ([place]) Additional Family Medical History / Comment(s): Father of a [place] in his 50s. Medications and Allergies Home Medications Medication Instructions Recorded Confirmed Type Docusate Sodium [Dok] 100 mg PO BID 09/12/17 01/17/19 History Gabapentin 600 mg PO BID 09/12/17 01/17/19 History Glimepiride [Amaryl] 1 mg PO QAM 09/12/17 01/17/19 History Lurasidone [Latuda] 40 mg PO HS 09/12/17 01/17/19 History sitaGLIPtin [Januvia] 100 mg PO QAM 09/12/17 01/17/19 History Pantoprazole [Protonix] 40 mg PO BID 11/05/17 01/17/19 History Tamsulosin [Flomax] 0.4 mg PO BID 11/05/17 01/17/19 History Atorvastatin [Lipitor] 80 mg PO HS tab 11/12/17 01/17/19 Rx Clopidogrel [Plavix] 75 mg PO HS 12/09/17 01/17/19 History Butalb/APAP/Caff 50-325-40Mg 1 tab PO Q4H PRN 12/12/18 01/17/19 History [Fioricet 50-325-40] Citalopram Hydrobromide [CeleXA] 60 mg PO DAILY 12/12/18 01/17/19 History Loratadine [Claritin] 10 mg PO DAILY 12/12/18 01/17/19 History Metoprolol Tartrate [Lopressor] 50 mg PO BID #60 tab 12/17/18 01/17/19 Rx amLODIPine [Norvasc] 5 mg PO DAILY #30 tab 12/17/18 01/17/19 Rx cloNIDine HCL [Catapres] 0.2 mg PO TID #90 tab 12/17/18 01/17/19 Rx hydrALAZINE HCL [Apresoline] 50 mg PO QID #120 tab 12/17/18 01/17/19 Rx Aspirin 81 mg PO HS 01/17/19 01/17/19 History Allergies Allergy/AdvReac Type Severity Reaction Status Date / Time Iodinated Contrast- Oral and Allergy Nausea & Verified 01/17/19 19:35 IV Dye Vomiting Physical Exam Vitals: Vital Signs Temp Pulse Pulse Resp BP BP Pulse Ox 01/18/19 10:00 185/90 01/18/19 09:49 98.7 F 87 16 201/90 95 01/18/19 05:30 88 18 170/73 96 01/18/19 02:30 80 18 166/81 99 01/18/19 00:30 81 16 166/80 97 01/17/19 23:42 77 18 142/91 98 01/17/19 21:54 69 18 167/77 96 01/17/19 19:51 80 18 188/91 96 01/17/19 19:07 98 F 104 H 22 215/90 97 Intake and Output 01/17/19 01/18/19 01/18/19 22:59 06:59 14:59 Intake Total 91.181 Balance 91.181 Intake: Intake, IV Titration 91.181 Amount Heparin Sod,Pork in 0.45% 91.181 NaCl 25,000 unit In 0.45 % NaCl 1 250ml.bag @ 11 UNITS/KG/HR 9.929 mls/hr IV .Q24H [facility] Rx#: [id number] Other: Voiding Method Indwelling Catheter Weight 90.265 kg PHYSICAL EXAMINATION: GENERAL: The patient is alert and oriented x3, not in any acute distress. Well developed, well nourished. HEENT: Pupils are round and equally reacting to light. EOMI. No scleral icterus. No conjunctival pallor. Normocephalic, atraumatic. No pharyngeal erythema. No thyromegaly. CARDIOVASCULAR: S1 and S2 present. No murmurs, rubs, or gallops. PULMONARY: Chest is clear to auscultation, no wheezing or crackles. ABDOMEN: Mildly distended tympanic sluggish bowel sounds no organomegaly no significant tenderness MUSCULOSKELETAL: No joint swelling or deformity. EXTREMITIES: No cyanosis, clubbing, or pedal edema. NEUROLOGICAL: Gross neurological examination did not reveal any focal deficits. SKIN: No rashes. Results CBC & Chem 7: 01/17/19 19:21 01/17/19 19:21 Labs: Abnormal Lab Results - Last 24 Hours (Table) 01/17/19 01/17/19 01/17/19 Range/Units 19:21 19:21 19:21 RBC 2.77 L (4.30-5.90) m/uL Hgb 7.9 L (13.0-17.5) gm/dL Hct 23.8 L (39.0-53.0) % Plt Count 146 L (150-450) k/uL APTT 19.0 L (22.0-30.0) sec BUN 29 H (9-20) mg/dL Creatinine 1.74 H (0.66-1.25) mg/dL Glucose 235 H (74-99) mg/dL POC Glucose (mg/dL) (75-99) mg/dL Troponin I (0.000-0.034) ng/mL HDL Cholesterol (40-60) mg/dL 01/18/19 01/18/19 01/18/19 Range/Units 00:36 06:16 06:16 RBC (4.30-5.90) m/uL Hgb (13.0-17.5) gm/dL Hct (39.0-53.0) % Plt Count (150-450) k/uL APTT (22.0-30.0) sec BUN (9-20) mg/dL Creatinine (0.66-1.25) mg/dL Glucose (74-99) mg/dL POC Glucose (mg/dL) (75-99) mg/dL Troponin I 0.200 H* 0.288 H* (0.000-0.034) ng/mL HDL Cholesterol 34 L (40-60) mg/dL 01/18/19 01/18/19 01/18/19 Range/Units 07:39 11:51 13:26 RBC (4.30-5.90) m/uL Hgb (13.0-17.5) gm/dL Hct (39.0-53.0) % Plt Count (150-450) k/uL APTT 30.3 H (22.0-30.0) sec BUN (9-20) mg/dL Creatinine (0.66-1.25) mg/dL Glucose (74-99) mg/dL POC Glucose (mg/dL) 240 H 325 H (75-99) mg/dL Troponin I (0.000-0.034) ng/mL HDL Cholesterol (40-60) mg/dL Thrombosis Risk Factor Assmnt - Choose All That Apply Any of the Below Risk Factors Present?: Yes Each Factor Represents 1 point: Age 41-60 years, Obesity (BMI >25) Thrombosis Risk Factor Assessment Total Risk Factor Score: 2 Thrombosis Risk Factor Assessment Level: Low Risk Assessment and Plan Plan: Chest pain with elevated troponins, possibly of non-ST elevation microinfarction: Patient was started on IV heparin cardiology was consulted o ther possible etiologies being pulmonary embolism with because of his pleuritic competent of chest pain and obtain a d-dimer if that's positive obtain CT angios the chest rule out PE. Considering his nausea vomiting patient was started on Protonix possibly a peptic ulcer disease cannot be ruled out at this time. -Nausea vomiting with abdominal distention: obtain abdominal x-ray can be related to ileus from constipation -Carotid disease with previous stents in the past -Type 2 diabetes mellitus -Urinary retention patient has a Garcia catheter urine intervention can be related to constipation -Can start failure chronic diastolic dysfunction without any acute exacerbation patient has moderate MR patient is receiving 50 mL of normal saline that was ordered for from nephrology -Mild acute renal failure due to intravascular depletion [place]-chronic kidney disease stage III secondary to diabetic nephropathy
[2019-01-18] MEDS: cloNIDine 0.2 MG/24HR PATCH TRANSDERM SCH (15:07)
[2019-01-18] MEDS: PANTOPRAZOLE 40 MG/10 ML VIAL IVP SCH ×2 (15:07→22:01)
--- NOTE | 2019-01-18 16:08 | XR ---
EXAMINATION TYPE: XR KUB portable DATE OF EXAM: 01/18/2019 3:10 PM CLINICAL HISTORY: 10/13/2017 TECHNIQUE: Single supine KUB image of the abdomen is obtained. COMPARISON: None. FINDINGS: Bowel gas pattern nonspecific. Osseous structures grossly intact. No suspicious calcificati ons. IMPRESSION: 1. Nonspecific abdomen.
[2019-01-18] MEDS ORDERED: FUROSEMIDE 10 MG/ML 4 ML VIAL IV STA (16:22)
--- NOTE | 2019-01-18 16:23 | P.CRDCN ---
History of Present Illness Consult date: 01/18/19 Requesting physician: Chris Valdovinos Consult reason: chest pain, shortness of breath Chief complaint: Chest pain, shortness of breath History of present illness: This is a pleasant 53-year-old gentleman who follows regularly with Dr. VC Church in the office. He has a known history of diabetes, chronic kidney disease, hypertension, hyperlipidemia, he also has history of TIA in the past, rheumatoid arthritis, family history of premature coronary artery disease, he himself has coronary artery disease and in October of last year underwent angioplasty and stenting of the chronically occluded mid and proximal circumflex artery. He presents to the hospital on this occasion with symptoms of chest discomfort, shortness of breath and bilateral lower extremity swelling. According to the patient, he's been experiencing discomfort in his chest which she describes as a tightness that comes and goes. He states it does remind him of what he had prior to his stent placement. Patient also has been much more short of breath than usual, and is experiencing symptoms of nausea. He does have bilateral lower extremity edema which according to the is about the same as his usual. Chest x-ray did not reveal any active cardiopulmonary disease. EKG shows a normal sinus rhythm with no acute changes noted. KUB was performed which was negative. Blood pressure 186/99, heart rate 106, 95% on room air. White blood cell count 6.1, hemoglobin 7.9, platelet count 146. D- dimer 0.9, sodium 141, potassium 4.3, BUN 29 and creatinine 1.7. Troponins 0.012, 0.20, 0.28. BNP level 1510. At the time of my examination, patient has just been brought up to the cardiac unit, he spent most of his time in the emergency room. He is quite nauseated and weak, feels short of breath, currently chest pain-free. Past Medical History Past Medical History: CVA/TIA, Diabetes Mellitus, GERD/Reflux, Hyperlipidemia, Hypertension, Myocardial Infarction ([place]), Renal Disease, Rheumatoid Arthritis ([place]) Additional Past Medical History / Comment(s): stroke apr 2017, migranes, diabetic neuropathy arms and legs, stage 2 kidney failure, PANCREATITIS, LEGALLY BLIND, enlarged prostate, trouble urinating Last Myocardial Infarction Date:: 2014? not sure History of Any Multi-Drug Resistant Organisms: None Reported Past Surgical History: No Surgical Hx Reported, Heart Catheterization With Stent Additional Past Surgical History / Comment(s): EGD, 4 stents Past Anesthesia/Blood Transfusion Reactions: No Reported Reaction Additional Past Anesthesia/Blood Transfusion Reaction / Comment(s): never had anethesia Date of Last Stent Placement:: 2017 Past Psychological History: Anxiety, Depression Additional Psychological History / Comment(s): Pt resides with his spouse. He uses a quad cane or walker to ambulate. He is legally blind. He reads minimally with magnifying glass and signs his name only now. His spouse drives him to [place]. Smoking Status: Never smoker Past Alcohol Use History: None Reported Past Drug Use History: None Reported - Past Family History Mother Family Medical History: CVA/TIA, Diabetes Mellitus, Hypertension Additional Family Medical History / Comment(s): Mother is 77yrs old. Father Family Medical History: CVA/TIA, Diabetes Mellitus, Myocardial Infarction ([place]) Additional Family Medical History / Comment(s): Father of a [place] in his 50s. Medications and Allergies Home Medications Medication Instructions Recorded Confirmed Type Docusate Sodium [Dok] 100 mg PO BID 09/12/17 01/17/19 History Gabapentin 600 mg PO BID 09/12/17 01/17/19 History Glimepiride [Amaryl] 1 mg PO QAM 09/12/17 01/17/19 History Lurasidone [Latuda] 40 mg PO HS 09/12/17 01/17/19 History sitaGLIPtin [Januvia] 100 mg PO QAM 09/12/17 01/17/19 History Pantoprazole [Protonix] 40 mg PO BID 11/05/17 01/17/19 History Tamsulosin [Flomax] 0.4 mg PO BID 11/05/17 01/17/19 History Atorvastatin [Lipitor] 80 mg PO HS tab 11/12/17 01/17/19 Rx Clopidogrel [Plavix] 75 mg PO HS 12/09/17 01/17/19 History Butalb/APAP/Caff 50-325-40Mg 1 tab PO Q4H PRN 12/12/18 01/17/19 History [Fioricet 50-325-40] Citalopram Hydrobromide [CeleXA] 60 mg PO DAILY 12/12/18 01/17/19 History Loratadine [Claritin] 10 mg PO DAILY 12/12/18 01/17/19 History Metoprolol Tartrate [Lopressor] 50 mg PO BID #60 tab 12/17/18 01/17/19 Rx amLODIPine [Norvasc] 5 mg PO DAILY #30 tab 12/17/18 01/17/19 Rx cloNIDine HCL [Catapres] 0.2 mg PO TID #90 tab 12/17/18 01/17/19 Rx hydrALAZINE HCL [Apresoline] 50 mg PO QID #120 tab 12/17/18 01/17/19 Rx Aspirin 81 mg PO HS 01/17/19 01/17/19 History Allergies Allergy/AdvReac Type Severity Reaction Status Date / Time Iodinated Contrast- Oral and Allergy Nausea & Verified 01/17/19 19:35 IV Dye Vomiting Physical Exam Vitals: Vital Signs Temp Pulse Pulse Resp BP BP Pulse Ox 01/18/19 14:57 97.8 F 106 H 16 186/99 95 01/18/19 10:00 185/90 01/18/19 09:49 98.7 F 87 16 201/90 95 01/18/19 05:30 88 18 170/73 96 01/18/19 02:30 80 18 166/81 99 01/18/19 00:30 81 16 166/80 97 01/17/19 23:42 77 18 142/91 98 01/17/19 21:54 69 18 167/77 96 01/17/19 19:51 80 18 188/91 96 01/17/19 19:07 98 F 104 H 22 215/90 97 Intake and Output 01/18/19 01/18/19 01/18/19 06:59 14:59 22:59 Intake Total 691.181 Output Total 800 Balance -108.819 Intake: Intake, IV Titration 691.181 Amount Heparin Sod,Pork in 0.45% 91.181 NaCl 25,000 unit In 0.45 % NaCl 1 250ml.bag @ 11 UNITS/KG/HR 9.929 mls/hr IV .Q24H [facility] Rx#: [id number] Sodium Chloride 0.9% 1, 600 000 ml @ 50 mls/hr IV . Q20H [facility] Rx#:[id number] Output: Urine 800 Other: Voiding Method Indwelling Catheter PHYSICAL EXAMINATION: GENERAL: 53-year-old pale looking gentleman in no acute distress at the time of my examination HEENT: Head is atraumatic, normocephalic. Pupils equal, round. Sclera anicteric. Conjunctiva are clear. Mucous membranes of the mouth are moist. Neck is supple. There is elevated jugular venous pressure. No Carotid bruit is heard. HEART EXAMINATION: Heart S1, S2 normal. No murmur or gallop heard. CHEST EXAMINATION: Lungs reveal some coarse crackles with diminished air entry to the bases. ABDOMEN: Soft, nontender. Bowel sounds are heard. No organomegaly noted. EXTREMITIES: 2+ peripheral pulses with 2-3+ evidence of peripheral edema and no calf tenderness noted. NEUROLOGIC patient is awake, alert and oriented 3 . Results 01/17/19 19:21 01/17/19 19:21 Cardiac Enzymes 01/17/19 01/17/19 01/18/19 Range/Units 19:21 19:21 00:36 AST 24 (17-59) U/L Troponin I <0.012 0.200 H* (0.000-0.034) ng/mL 01/18/19 Range/Units 06:16 AST (17-59) U/L Troponin I 0.288 H* (0.000-0.034) ng/mL Coagulation 01/17/19 01/18/19 Range/Units 19:21 11:51 PT 10.5 (9.0-12.0) sec APTT 19.0 L 30.3 H (22.0-30.0) sec Lipids 01/18/19 Range/Units 06:16 Triglycerides 120 (<150) mg/dL Cholesterol 90 (<200) mg/dL HDL Cholesterol 34 L (40-60) mg/dL CBC 01/17/19 Range/Units 19:21 WBC 6.1 (3.8-10.6) k/uL RBC 2.77 L (4.30-5.90) m/uL Hgb 7.9 L (13.0-17.5) gm/dL Hct 23.8 L (39.0-53.0) % Plt Count 146 L (150-450) k/uL Comprehensive Metabolic Panel 01/17/19 Range/Units 19:21 Sodium 141 (137-145) mmol/L Potassium 4.3 (3.5-5.1) mmol/L Chloride 107 (98-107) mmol/L Carbon Dioxide 22 (22-30) mmol/L BUN 29 H (9-20) mg/dL Creatinine 1.74 H (0.66-1.25) mg/dL Glucose 235 H (74-99) mg/dL Calcium 9.2 (8.4-10.2) mg/dL AST 24 (17-59) U/L ALT 36 (21-72) U/L Alkaline Phosphatase 112 (38-126) U/L Total Protein 6.8 (6.3-8.2) g/dL Albumin 4.1 (3.5-5.0) g/dL Current Medications Generic Name Dose Route Start Last Admin Trade Name Freq PRN Reason Stop Dose Admin Acetaminophen/Butalbital/Caffeine 1 each 01/17/19 23:10 Fioricet 50-325-40 PO Q4H PRN Migraine Headache Amlodipine Besylate 5 mg 01/18/19 09:00 01/18/19 13:15 Norvasc PO Not Given DAILY [facility] Aspirin 325 mg 01/18/19 09:00 01/18/19 13:15 Aspirin PO Not Given DAILY [facility] Atorvastatin Calcium 80 mg 01/18/19 21:00 Lipitor PO HS [facility] Citalopram Hydrobromide 60 mg 01/18/19 09:00 01/18/19 13:15 Celexa PO Not Given DAILY [facility] Clonidine HCl 1 patch 01/18/19 14:30 01/18/19 15:07 Catapres-Tts 0.2mg Patch TRANSDERM 1 patch Q7D [facility] Administration Clopidogrel Bisulfate 75 mg 01/18/19 21:00 Plavix PO HS [facility] Docusate Sodium 100 mg 01/18/19 09:00 01/18/19 13:16 Colace PO Not Given BID [facility] Gabapentin 600 mg 01/18/19 09:00 01/18/19 13:16 Neurontin PO Not Given BID [facility] Glimepiride 1 mg 01/18/19 09:00 01/18/19 13:16 Amaryl PO Not Given QAM [facility] Heparin Sodium (Porcine) 0 unit 01/18/19 13:19 01/18/19 13:34 Heparin IV 2,255 unit PER PROTOCOL PRN Administration Low PTT Protocol Hydralazine HCl 50 mg 01/18/19 09:00 01/18/19 13:43 Apresoline PO Not Given QID [facility] Heparin Sodium/Sodium Chloride 250 mls @ 9.929 mls/hr 01/18/19 04:00 01/18/19 13:34 25,000 unit/ Sodium Chloride IV 1,262 units/kg/hr .Q24H [facility] 1,139.144 mls/hr Titration Protocol 11 UNITS/KG/HR Sodium Chloride 1,000 mls @ 50 mls/hr 01/18/19 10:45 01/18/19 13:32 Saline 0.9% IV 50 mls/hr .Q20H [facility] Administration Insulin Aspart 0 unit 01/18/19 07:30 01/18/19 13:42 Novolog SQ 5 unit ACHS [facility] Administration Protocol Linagliptin 5 mg 01/18/19 09:00 01/18/19 13:16 Tradjenta PO Not Given QAM [facility] Loratadine 10 mg 01/18/19 09:00 01/18/19 13:17 Claritin PO Not Given DAILY [facility] Lurasidone HCl 40 mg 01/18/19 21:00 Latuda PO HS [facility] Metoprolol Tartrate 50 mg 01/18/19 09:00 01/18/19 13:17 Lopressor PO Not Given BID [facility] Nitroglycerin 1 inch 01/18/19 00:00 01/18/19 13:32 Nitro-Bid Oint TOPICAL 1 inch Q6HR [facility] Administration Nitroglycerin 0.4 mg 01/17/19 23:08 Nitrostat SUBLINGUAL Q5M PRN Chest Pain Ondansetron HCl 4 mg 01/18/19 09:35 01/18/19 10:12 Zofran IVP 4 mg Q6HR PRN Administration Nausea And Vomiting Pantoprazole Sodium 40 mg 01/18/19 13:30 01/18/19 15:07 Protonix IVP 40 mg BID [facility] Administration Prochlorperazine Maleate 10 mg 01/18/19 14:10 Compazine PO Q8HR PRN Nausea And Vomiting Tamsulosin HCl 0.4 mg 01/18/19 09:00 01/18/19 13:17 Flomax PO Not Given BID [facility] Intake and Output 01/18/19 01/18/19 01/18/19 06:59 14:59 22:59 Intake Total 691.181 Output Total 800 Balance -108.819 Intake: Intake, IV Titration 691.181 Amount Heparin Sod,Pork in 0.45% 91.181 NaCl 25,000 unit In 0.45 % NaCl 1 250ml.bag @ 11 UNITS/KG/HR 9.929 mls/hr IV .Q24H [facility] Rx#: [id number] Sodium Chloride 0.9% 1, 600 000 ml @ 50 mls/hr IV . Q20H [facility] Rx#:[id number] Output: Urine 800 Other: Voiding Method Indwelling Catheter 01/17/19 19:21 01/17/19 19:21 EKG Interpretations (text) EKG shows normal sinus rhythm with no acute changes. Assessment and Plan Plan: Assessment and plan #1 accelerated hypertension #2 symptoms of chest tightness with mild abnormality in troponin, possible acute coronary syndrome. EKG shows normal sinus rhythm with no acute changes. #3 history of recent CVA #4 persistent nausea and vomiting with associated decreased appetite #5 diabetes #6 hyperlipidemia #7 rheumatoid arthritis #8 history of anxiety or depression #9 abnormal troponin, patient denies having any chest discomfort #10 coronary artery disease with prior PCI, patient underwent PTCA and stenting of a dominant mid and proximal circumflex artery in 2018 #11 anemia #12 congestive heart failure, diastolic acute on chronic Plan Patient had an echocardiogram with Doppler study performed in November, however we will repeat an echo at this time as well just to review the LV function. He was noted at that time to have an EF of 55-60%, moderate mitral regurgitation. A ROGERIO was also performed on that admission to rule out any cardiac source of thrombus because the patient had a CVA, this was negative. I will give the patient one time dose of 40 IV Lasix tonight, check lytes BUN and creatinine in the morning. Patient is currently not taking anything by mouth because of his significant nausea. We will give him IV beta blockers until he is able to take oral. He's also been started on a clonidine patch. Further recommendations to follow. DNP note has been reviewed, I agree with a documented findings and plan of care. Patient was seen and examined.
[2019-01-18] MEDS: METOPROLOL TARTRATE 5 MG/5 ML VIAL IVP SCH ×2 (16:45→16:49)
[2019-01-18 16:48] LABS: Glucose,Whole Blood 304 mg/dL (75-99)
[2019-01-18 20:28] LABS: Iron Saturation 21.07 (15.00-50.00)
[2019-01-18 21:02] LABS: Glucose,Whole Blood 240 mg/dL (75-99)
[2019-01-18] MEDS: PROCHLORPERAZINE 10 MG TAB PO PRN (22:13)
[2019-01-18] MEDS: NITROGLYCERIN SL TABS 0.4 MG TAB SUBLINGUAL PRN (22:22)
[2019-01-18] MEDS ORDERED: LABETALOL 5 MG/ML VIAL MDV IVP STA (22:39)
[2019-01-18] MEDS: ATORVASTATIN 80 MG TAB PO SCH (22:43)
[2019-01-18] MEDS: LURASIDONE 20 MG TAB PO SCH (22:43)
[2019-01-18] MEDS: CLOPIDOGREL 75 MG TAB PO SCH (22:43)
--- NOTE | 2019-01-18 23:11 | XR ---
EXAM: XR Chest, 1 View CLINICAL HISTORY: Recheck TECHNIQUE: Frontal view of the chest. COMPARISON: Chest x-ray dated 01/17/2019 FINDINGS: Lungs: Unremarkable. No consolidation. Pleural space: Unremarkable. No pneumothorax. Heart: Unremarkable. No cardiomegaly. Mediastinum: Unremarkable. Bones/joints: Unremarkable. IMPRESSION: Normal chest x-ray.
[2019-01-19] MEDS: INSULIN ASPART (NovoLOG) 100 UNIT/ML VIAL SQ SCH ×5 (01:14→22:54)
[2019-01-19] MEDS: NITROGLYCERIN OINT 1 INCH/GM PACKET TOPICAL SCH ×5 (01:15→23:31)
[2019-01-19] MEDS: METOPROLOL TARTRATE 5 MG/5 ML VIAL IVP SCH ×3 (01:15→13:39)
[2019-01-19] MEDS: HEPARIN SOD,PORK IN 0.45% NACL 25,000 UNIT in 0.45% NACL 1 250ML.BAG IV SCH ×2 (01:16→20:47)
[2019-01-19] MEDS: ONDANSETRON 4 MG/2 ML VIAL IVP PRN ×2 (03:22→08:31)
[2019-01-19] MEDS ORDERED: LABETALOL 5 MG/ML VIAL MDV IVP STA (03:36)
[2019-01-19 06:12] LABS: Glucose,Whole Blood 313 mg/dL (75-99)
[2019-01-19] MEDS: PROCHLORPERAZINE 10 MG TAB PO PRN (06:17)
[2019-01-19 08:01] LABS: Calcium 9.1 mg/dL (8.4-10.2); Magnesium 1.9 mg/dL (1.6-2.3); Potassium 5.3 mmol/L (3.5-5.1)
[2019-01-19] MEDS: SODIUM CHLORIDE 0.9% 1,000 ML IV SCH (08:23)
[2019-01-19] MEDS: ASPIRIN 81 MG PO SCH (08:32)
[2019-01-19] MEDS: PANTOPRAZOLE 40 MG/10 ML VIAL IVP SCH ×2 (08:32→20:44)
[2019-01-19] MEDS: hydrALAZINE HCL 50 MG TAB PO SCH ×4 (08:32→22:54)
[2019-01-19] MEDS: amLODIPine 5 MG TAB PO SCH ×2 (08:32→20:44)
[2019-01-19] MEDS: TAMSULOSIN 0.4 MG CAP.ER.24H PO SCH ×2 (08:32→20:43)
[2019-01-19 09:03] LABS: Basophils % (A) 0 %; Eosinophils % (A) 0 %; HCT 29.6 % (39.0-53.0); HGB 9.3 gm/dL (13.0-17.5); Lymphocytes % (A) 5 %; MCH 27.9 pg (25.0-35.0); MCHC 31.4 g/dL (31.0-37.0); MCV 88.8 fL (80.0-100.0); Mean Platelet Volume 6.6; Monocytes # (A) 0.8 k/uL (0-1.0); Monocytes % (A) 4 %; Neutrophils # (A) 17.1 k/uL (1.3-7.7); Neutrophils % (A) 90 %; Platelet Count 241 k/uL (150-450); RBC 3.33 m/uL (4.30-5.90); RDW 14.3 % (11.5-15.5); WBC 19.1 k/uL (3.8-10.6)
[2019-01-19] MEDS: CITALOPRAM HYDROBROMIDE 20 MG TAB PO SCH (10:34)
[2019-01-19 10:35] LABS: Glucose,Whole Blood 243 mg/dL (75-99)
[2019-01-19] MEDS: GLIMEPIRIDE 1 MG TAB PO SCH (10:35)
[2019-01-19] MEDS: LINAGLIPTIN 5 MG TABLET PO SCH (10:35)
[2019-01-19] MEDS: DOCUSATE 100 MG CAP PO SCH ×2 (10:35→20:43)
[2019-01-19] MEDS: LORATADINE 10 MG TAB PO SCH (10:35)
[2019-01-19] MEDS: GABAPENTIN 300 MG CAP PO SCH ×2 (10:35→20:43)
[2019-01-19] MEDS ORDERED: hydrALAZINE HCL 20 MG/ML 1 ML VIAL IVP PRN (11:55)
--- NOTE | 2019-01-19 11:56 | P.PN ---
Subjective Patient seen in follow-up for chronic disease. Patient has chronic kidney disease stage III with baseline creatinine in the range of 1.6-2 secondary to diabetic kidney disease. Creatinine today is 2.01. Patient has a chronic Garcia catheter. He is nonoliguric. Doesn't feel well overall today. He did receive 1 dose of IV Lasix yesterday. Chest pain is better. No shortness of breath. Vital signs are stable. General: The patient appeared well nourished and normally developed. HEENT: Head exam is unremarkable. Neck is without jugular venous distension. LUNGS: Lungs are clear to auscultation and percussion. Breath sounds decreased. HEART: Rate and Rhythm are regular. First and second heart sounds normal. No murmurs, rubs or gallops. ABDOMEN: Abdominal exam reveals normal bowel sounds. Non-tender and non- distended. No evidence of peritonitis. EXTREMITITES: Trace edema. Tremors noted. Objective - Vital Signs Vital signs: Vital Signs Temp 98.2 F 01/19/19 07:30 Pulse 83 01/19/19 07:30 Resp 20 01/19/19 07:30 BP 169/77 01/19/19 07:30 Pulse Ox 92 L 01/19/19 07:30 Intake & Output 01/18/19 01/19/19 01/19/19 18:59 06:59 18:59 Intake Total 850.000 400 Output Total 1700 700 Balance -850.000 -300 Weight 86 kg Intake: Intake, IV Titration 850.000 400 Amount Heparin Sod,Pork in 0.45% 250.000 NaCl 25,000 unit In 0.45 % NaCl 1 250ml.bag @ 11 UNITS/KG/HR 9.929 mls/hr IV .Q24H [facility] Rx#: [id number] Sodium Chloride 0.9% 1, 600 400 000 ml @ 50 mls/hr IV . Q20H [facility] Rx#:[id number] Output: Urine 1700 700 Other: Voiding Method Indwelling Catheter Indwelling Catheter Indwelling Catheter # Voids 2 # Bowel Movements 1 - Labs CBC & Chem 7: 01/19/19 07:11 01/19/19 07:11 Labs: Abnormal Lab Results - Last 24 Hours (Table) 01/18/19 01/18/19 01/18/19 Range/Units 11:51 11:51 11:51 WBC (3.8-10.6) k/uL RBC (4.30-5.90) m/uL Hgb (13.0-17.5) gm/dL Hct (39.0-53.0) % Neutrophils # (1.3-7.7) k/uL APTT 30.3 H (22.0-30.0) sec D-Dimer 0.92 H (<0.60) mg/L FEU Potassium (3.5-5.1) mmol/L BUN (9-20) mg/dL Creatinine (0.66-1.25) mg/dL Glucose (74-99) mg/dL POC Glucose (mg/dL) (75-99) mg/dL Iron 59 L (65-175) ug/dL Ferritin 409.1 H (22.0-322.0) ng/mL Troponin I (0.000-0.034) ng/mL 01/18/19 01/18/19 01/18/19 Range/Units 13:26 16:46 19:48 WBC (3.8-10.6) k/uL RBC (4.30-5.90) m/uL Hgb (13.0-17.5) gm/dL Hct (39.0-53.0) % Neutrophils # (1.3-7.7) k/uL APTT 49.1 H (22.0-30.0) sec D-Dimer (<0.60) mg/L FEU Potassium (3.5-5.1) mmol/L BUN (9-20) mg/dL Creatinine (0.66-1.25) mg/dL Glucose (74-99) mg/dL POC Glucose (mg/dL) 325 H 304 H (75-99) mg/dL Iron (65-175) ug/dL Ferritin (22.0-322.0) ng/mL Troponin I (0.000-0.034) ng/mL 01/18/19 01/18/19 01/19/19 Range/Units 19:48 21:01 06:10 WBC (3.8-10.6) k/uL RBC (4.30-5.90) m/uL Hgb (13.0-17.5) gm/dL Hct (39.0-53.0) % Neutrophils # (1.3-7.7) k/uL APTT (22.0-30.0) sec D-Dimer (<0.60) mg/L FEU Potassium (3.5-5.1) mmol/L BUN (9-20) mg/dL Creatinine (0.66-1.25) mg/dL Glucose (74-99) mg/dL POC Glucose (mg/dL) 240 H 313 H (75-99) mg/dL Iron (65-175) ug/dL Ferritin (22.0-322.0) ng/mL Troponin I 0.907 H* (0.000-0.034) ng/mL 01/19/19 01/19/19 01/19/19 Range/Units 07:11 07:11 10:30 WBC 19.1 H (3.8-10.6) k/uL RBC 3.33 L (4.30-5.90) m/uL Hgb 9.3 L (13.0-17.5) gm/dL Hct 29.6 L (39.0-53.0) % Neutrophils # 17.1 H (1.3-7.7) k/uL APTT (22.0-30.0) sec D-Dimer (<0.60) mg/L FEU Potassium 5.3 H (3.5-5.1) mmol/L BUN 36 H (9-20) mg/dL Creatinine 2.01 H (0.66-1.25) mg/dL Glucose 303 H (74-99) mg/dL POC Glucose (mg/dL) 243 H (75-99) mg/dL Iron (65-175) ug/dL Ferritin (22.0-322.0) ng/mL Troponin I (0.000-0.034) ng/mL Assessment and Plan Plan: Assessment: 1. Chronic kidney disease stage III secondary to diabetic kidney disease with baseline creatinine in the range of 1.6-2 recently. GFR currently at baseline. Ultrasound from last month revealed no evidence of hydronephrosis. 2. Chest pain. Rule out acute coronary syndrome. Currently on heparin drip. 3. History of coronary artery disease status post 4 cardiac stents. 4. Urinary retention. Currently has a Garcia catheter in place. 5. Diabetes mellitus. 6. Diastolic CHF with moderate MR. Currently compensated. 7. Hypertension with chronic kidney disease. Better today. 8. Anemia chronic kidney disease. Iron deficiency noted. Plan: Hep-Lock IV fluids. Hold off on diuretics today. Encourage oral intake. Maintain current antihypertensives. Increase amlodipine to 5 mg bid. Add hydralazine 10 mg IV every 4 hours if needed for systolic blood pressure greater than 160. Avoid nephrotoxins. IV iron 2 doses. Continue to monitor renal function and urine output. Repeat electrolytes in the morning.
[2019-01-19 12:13] LABS: Glucose,Whole Blood 268 mg/dL (75-99)
--- NOTE | 2019-01-19 12:14 | P.PN ---
Subjective Progress Note Date: 01/19/19 This is a pleasant 53-year-old gentleman who follows regularly with Dr. VC Church in the office. He has a known history of diabetes, chronic kidney disease, hypertension, hyperlipidemia, he also has history of TIA in the past, rheumatoid arthritis, family history of premature coronary artery disease, he himself has coronary artery disease and in October of last year underwent angioplasty and stenting of the chronically occluded mid and proximal circumflex artery. He presents to the hospital on this occasion with symptoms of chest discomfort, shortness of breath and bilateral lower extremity swelling. According to the patient, he's been experiencing discomfort in his chest which she describes as a tightness that comes and goes. He states it does remind him of what he had prior to his stent placement. Patient also has been much more short of breath than usual, and is experiencing symptoms of nausea. He does have bilateral lower extremity edema which according to the is about the same as his usual. Chest x-ray did not reveal any active cardiopulmonary disease. EKG shows a normal sinus rhythm with no acute changes noted. KUB was performed which was negative. Blood pressure 186/99, heart rate 106, 95% on room air. White blood cell count 6.1, hemoglobin 7.9, platelet count 146. D- dimer 0.9, sodium 141, potassium 4.3, BUN 29 and creatinine 1.7. Troponins 0.012, 0.20, 0.28. BNP level 1510. At the time of my examination, patient has just been brought up to the cardiac unit, he spent most of his time in the emergency room. He is quite nauseated and weak, feels short of breath, currently chest pain-free. 01/19/2019 Patient was seen and examined this morning, he does state that he's feeling somewhat better today, still appears to be quite weak. Complaining of feeling short of breath, sitting up in the chair at bedside today. Denies any further chest tightness. Blood pressure 164/90 with a heart rate in the 80s, 92% on 2 L of oxygen. White blood cell count today is up to 19,000, hemoglobin 9.3, platelet count 241. Sodium 143, potassium 5.3, BUN 36 and creatinine 2.01. Magnesium 1.9. Objective - Vital Signs Vital signs: Vital Signs Temp 98.2 F 01/19/19 07:30 Pulse 83 01/19/19 07:30 Resp 20 01/19/19 07:30 BP 169/77 01/19/19 07:30 Pulse Ox 92 L 01/19/19 07:30 Intake & Output 01/18/19 01/19/19 01/19/19 18:59 06:59 18:59 Intake Total 850.000 400 Output Total 1700 700 Balance -850.000 -300 Weight 86 kg Intake: Intake, IV Titration 850.000 400 Amount Heparin Sod,Pork in 0.45% 250.000 NaCl 25,000 unit In 0.45 % NaCl 1 250ml.bag @ 11 UNITS/KG/HR 9.929 mls/hr IV .Q24H [facility] Rx#: [id number] Sodium Chloride 0.9% 1, 600 400 000 ml @ 50 mls/hr IV . Q20H [facility] Rx#:[id number] Output: Urine 1700 700 Other: Voiding Method Indwelling Catheter Indwelling Catheter Indwelling Catheter # Voids 2 # Bowel Movements 1 - Exam PHYSICAL EXAMINATION: GENERAL: 53-year-old pale looking gentleman in no acute distress at the time of my examination HEENT: Head is atraumatic, normocephalic. Pupils equal, round. Sclera anicteric. Conjunctiva are clear. Mucous membranes of the mouth are moist. Neck is supple. There is elevated jugular venous pressure. No Carotid bruit is heard. HEART EXAMINATION: Heart S1, S2 normal. No murmur or gallop heard. CHEST EXAMINATION: Lungs reveal some coarse crackles with diminished air entry to the bases. ABDOMEN: Soft, nontender. Bowel sounds are heard. No organomegaly noted. EXTREMITIES: 2+ peripheral pulses with 2+ evidence of peripheral edema and no calf tenderness noted. NEUROLOGIC patient is awake, alert and oriented 3 . - Labs CBC & Chem 7: 01/19/19 07:11 01/19/19 07:11 Labs: Abnormal Lab Results - Last 24 Hours (Table) 01/18/19 01/18/19 01/18/19 Range/Units 11:51 11:51 11:51 WBC (3.8-10.6) k/uL RBC (4.30-5.90) m/uL Hgb (13.0-17.5) gm/dL Hct (39.0-53.0) % Neutrophils # (1.3-7.7) k/uL APTT 30.3 H (22.0-30.0) sec D-Dimer 0.92 H (<0.60) mg/L FEU Potassium (3.5-5.1) mmol/L BUN (9-20) mg/dL Creatinine (0.66-1.25) mg/dL Glucose (74-99) mg/dL POC Glucose (mg/dL) (75-99) mg/dL Iron 59 L (65-175) ug/dL Ferritin 409.1 H (22.0-322.0) ng/mL Troponin I (0.000-0.034) ng/mL 01/18/19 01/18/19 01/18/19 Range/Units 13:26 16:46 19:48 WBC (3.8-10.6) k/uL RBC (4.30-5.90) m/uL Hgb (13.0-17.5) gm/dL Hct (39.0-53.0) % Neutrophils # (1.3-7.7) k/uL APTT 49.1 H (22.0-30.0) sec D-Dimer (<0.60) mg/L FEU Potassium (3.5-5.1) mmol/L BUN (9-20) mg/dL Creatinine (0.66-1.25) mg/dL Glucose (74-99) mg/dL POC Glucose (mg/dL) 325 H 304 H (75-99) mg/dL Iron (65-175) ug/dL Ferritin (22.0-322.0) ng/mL Troponin I (0.000-0.034) ng/mL 01/18/19 01/18/19 01/19/19 Range/Units 19:48 21:01 06:10 WBC (3.8-10.6) k/uL RBC (4.30-5.90) m/uL Hgb (13.0-17.5) gm/dL Hct (39.0-53.0) % Neutrophils # (1.3-7.7) k/uL APTT (22.0-30.0) sec D-Dimer (<0.60) mg/L FEU Potassium (3.5-5.1) mmol/L BUN (9-20) mg/dL Creatinine (0.66-1.25) mg/dL Glucose (74-99) mg/dL POC Glucose (mg/dL) 240 H 313 H (75-99) mg/dL Iron (65-175) ug/dL Ferritin (22.0-322.0) ng/mL Troponin I 0.907 H* (0.000-0.034) ng/mL 01/19/19 01/19/19 01/19/19 Range/Units 07:11 07:11 10:30 WBC 19.1 H (3.8-10.6) k/uL RBC 3.33 L (4.30-5.90) m/uL Hgb 9.3 L (13.0-17.5) gm/dL Hct 29.6 L (39.0-53.0) % Neutrophils # 17.1 H (1.3-7.7) k/uL APTT (22.0-30.0) sec D-Dimer (<0.60) mg/L FEU Potassium 5.3 H (3.5-5.1) mmol/L BUN 36 H (9-20) mg/dL Creatinine 2.01 H (0.66-1.25) mg/dL Glucose 303 H (74-99) mg/dL POC Glucose (mg/dL) 243 H (75-99) mg/dL Iron (65-175) ug/dL Ferritin (22.0-322.0) ng/mL Troponin I (0.000-0.034) ng/mL Assessment and Plan Plan: Assessment and plan #1 accelerated hypertension #2 symptoms of chest tightness with mild abnormality in troponin, possible acute coronary syndrome. EKG shows normal sinus rhythm with no acute changes. #3 history of recent CVA #4 persistent nausea and vomiting with associated decreased appetite #5 diabetes #6 hyperlipidemia #7 rheumatoid arthritis #8 history of anxiety or depression #9 abnormal troponin, patient denies having any chest discomfort #10 coronary artery disease with prior PCI, patient underwent PTCA and stenting of a dominant mid and proximal circumflex artery in 2018 #11 anemia #12 congestive heart failure, diastolic acute on chronic Plan Patient is able to take his oral medications today, so we will continue the Norvasc which is been increased to twice a day, discontinue the IV metoprolol and change back to oral. Hold off diuretics at this time, check lytes BUN and creatinine in the morning. DNP note has been reviewed, I agree with a documented findings and plan of care. Patient was seen and examined.
[2019-01-19] MEDS: METOPROLOL SUCCINATE (ER) 50 MG TAB.ER.24H PO SCH (12:58)
--- NOTE | 2019-01-19 13:16 | P.PN ---
Subjective 53-year-old admitted with possible non-ST elevation myocardial infarction Patient chest pain was similar to the pain week when he had microinfarction the past. Patient appears to be volume overloaded with elevated JVD although doesn't have any significant crackles chest x-ray showing pulmonary edema because of that reason I'll start IV fluids patient was started on Lasix. Patient is still nauseous quite a bit patient was receiving Protonix able to take some oral diet today looks better than yesterday but does have leukocytosis I am obtaining an ultrasound of the abdomen to rule out any cholelithiasis although patient doesn't have any pain in the right upper quadrant. Constitutional: Denied any fatigue denied any fever. Cardio vascular: denied any chest pain, palpitations Gastrointestinal does have nausea Pulmonary: Can use to be short of breath significantly Neurologic denied any new focal deficits All inpatient medications were reviewed and appropriate changes in these medications as dictated in the interval history and assessment and plan. Objective - Vital Signs Vital signs: Vital Signs Temp 98.2 F 01/19/19 07:30 Pulse 83 01/19/19 07:30 Resp 20 01/19/19 07:30 BP 169/77 01/19/19 07:30 Pulse Ox 92 L 01/19/19 07:30 Intake & Output 01/18/19 01/19/19 01/19/19 18:59 06:59 18:59 Intake Total 850.000 400 Output Total 1700 700 Balance -850.000 -300 Weight 86 kg Intake: Intake, IV Titration 850.000 400 Amount Heparin Sod,Pork in 0.45% 250.000 NaCl 25,000 unit In 0.45 % NaCl 1 250ml.bag @ 11 UNITS/KG/HR 9.929 mls/hr IV .Q24H [facility] Rx#: [id number] Sodium Chloride 0.9% 1, 600 400 000 ml @ 50 mls/hr IV . Q20H [facility] Rx#:[id number] Output: Urine 1700 700 Other: Voiding Method Indwelling Catheter Indwelling Catheter Indwelling Catheter # Voids 2 # Bowel Movements 1 - Exam PHYSICAL EXAMINATION: GENERAL: The patient is alert and oriented x3, not in any acute distress. Well developed, well nourished. HEENT: Pupils are round and equally reacting to light. EOMI. No scleral icterus. No conjunctival pallor. Normocephalic, atraumatic. No pharyngeal erythema. No thyromegaly. CARDIOVASCULAR: S1 and S2 present. No murmurs, rubs, or gallops. Does have elevated JVD PULMONARY: Chest is clear to auscultation, no wheezing or crackles. ABDOMEN: Mildly distended tympanic sluggish bowel sounds no organomegaly no significant tenderness MUSCULOSKELETAL: No joint swelling or deformity. EXTREMITIES: No cyanosis, clubbing, or lateral 2+ pitting pedal edema NEUROLOGICAL: Gross neurological examination did not reveal any focal deficits. SKIN: No rashes. - Labs CBC & Chem 7: 01/19/19 07:11 01/19/19 07:11 Labs: Abnormal Lab Results - Last 24 Hours (Table) 01/18/19 01/18/19 01/18/19 Range/Units 11:51 11:51 13:26 WBC (3.8-10.6) k/uL RBC (4.30-5.90) m/uL Hgb (13.0-17.5) gm/dL Hct (39.0-53.0) % Neutrophils # (1.3-7.7) k/uL APTT (22.0-30.0) sec D-Dimer 0.92 H (<0.60) mg/L FEU Potassium (3.5-5.1) mmol/L BUN (9-20) mg/dL Creatinine (0.66-1.25) mg/dL Glucose (74-99) mg/dL POC Glucose (mg/dL) 325 H (75-99) mg/dL Iron 59 L (65-175) ug/dL Ferritin 409.1 H (22.0-322.0) ng/mL Troponin I (0.000-0.034) ng/mL 01/18/19 01/18/19 01/18/19 Range/Units 16:46 19:48 19:48 WBC (3.8-10.6) k/uL RBC (4.30-5.90) m/uL Hgb (13.0-17.5) gm/dL Hct (39.0-53.0) % Neutrophils # (1.3-7.7) k/uL APTT 49.1 H (22.0-30.0) sec D-Dimer (<0.60) mg/L FEU Potassium (3.5-5.1) mmol/L BUN (9-20) mg/dL Creatinine (0.66-1.25) mg/dL Glucose (74-99) mg/dL POC Glucose (mg/dL) 304 H (75-99) mg/dL Iron (65-175) ug/dL Ferritin (22.0-322.0) ng/mL Troponin I 0.907 H* (0.000-0.034) ng/mL 01/18/19 01/19/19 01/19/19 Range/Units 21:01 06:10 07:11 WBC (3.8-10.6) k/uL RBC (4.30-5.90) m/uL Hgb (13.0-17.5) gm/dL Hct (39.0-53.0) % Neutrophils # (1.3-7.7) k/uL APTT (22.0-30.0) sec D-Dimer (<0.60) mg/L FEU Potassium 5.3 H (3.5-5.1) mmol/L BUN 36 H (9-20) mg/dL Creatinine 2.01 H (0.66-1.25) mg/dL Glucose 303 H (74-99) mg/dL POC Glucose (mg/dL) 240 H 313 H (75-99) mg/dL Iron (65-175) ug/dL Ferritin (22.0-322.0) ng/mL Troponin I (0.000-0.034) ng/mL 01/19/19 01/19/19 01/19/19 Range/Units 07:11 10:30 12:09 WBC 19.1 H (3.8-10.6) k/uL RBC 3.33 L (4.30-5.90) m/uL Hgb 9.3 L (13.0-17.5) gm/dL Hct 29.6 L (39.0-53.0) % Neutrophils # 17.1 H (1.3-7.7) k/uL APTT (22.0-30.0) sec D-Dimer (<0.60) mg/L FEU Potassium (3.5-5.1) mmol/L BUN (9-20) mg/dL Creatinine (0.66-1.25) mg/dL Glucose (74-99) mg/dL POC Glucose (mg/dL) 243 H 268 H (75-99) mg/dL Iron (65-175) ug/dL Ferritin (22.0-322.0) ng/mL Troponin I (0.000-0.034) ng/mL Assessment and Plan Plan: Chest pain with elevated troponins, possibly of non-ST elevation microinfarction: Patient is on IV heparin cardiology evaluated the patient, patient is still not feeling well but does have minimally elevated d-dimer we are not obtaining a CAT scan of the chest is a possibility of PE is lower in the mostly patient may have non-ST elevation microinfarction. -Congestive heart failure chronic diastolic dysfunction with acute exacerbation IV fluids at this can urine patient was started on Lasix will monitor kidney function - -Nausea vomiting with abdominal distention: Abdominal x-ray did not show any ileus in the will order medications for constipation will also order ultrasound of the abdomen to rule out any cholelithiasis continue with Protonix. 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
[2019-01-19] MEDS ORDERED: PROCHLORPERAZINE SUPPOSITORY 25 MG SUPP RECTAL PRN (13:20)
--- NOTE | 2019-01-19 13:20 | P.CONS ---
History of Present Illness - Reason for Consult Consult date: 01/19/19 Nausea Requesting physician: Bryant Pizarro - Chief Complaint Chest pain shortness of breath - History of Present Illness 53-year-old gentleman with a history of chronic anemia, chronic nausea greater than 1 year duration, diabetes, chronic kidney disease, hypertension, hyperlipidemia, TIA, RA, CAD with PCI stent admitted with shortness of breath chest pain. Consult requested for nausea. Patient states he chronically has nausea maintained on omeprazole and Zofran as needed. EGD a year ago to his memory was unremarkable. HIDA scan 1 year ago was within normal limits. Denies hematemesis medication melena. No fever or chills. Admission white count 7.9 presently 9.3. Platelet 241. White count 6.1 increased to 19.1 today. Hemoglobin 9.3. BUN 29. Creatinine 1.7. Glucose 235. LFTs within normal limits. Troponin 0.2. Gallbladder ultrasound pending. Previous ultrasounds reported no definite stones however underlying periampullary sludge cannot be excluded. Review of Systems Constitutional: Denies fever, chills, sweats, weight gain, or loss. HEENT: Negative for migraines, blurred vision or loss, earaches, drainage, tinnitus, oral mucosal lesions, dysphagia, or odynophagia. Cardiac: Positive for chest pain, denies arrhythmias, or palpitation. Respiratory: Positive for shortness of breath, denies hemoptysis, cough, or sputum production. Gastrointestinal: See HPI for pertinent findings. Genitourinary: Negative for hematuria, urgency, frequency, polyuria, dysuria, or penile discharge. Musculoskeletal: Negative for muscle aches, swelling, arthritis, and arthralgias. Neurologic: Negative for stroke or TIA. Endocrine: Negative for thyroid problems. Skin: Negative for rash or itching. Psychiatric: Negative history for depression and anxiety Past Medical History Past Medical History: CVA/TIA, Diabetes Mellitus, GERD/Reflux, Hyperlipidemia, Hypertension, Myocardial Infarction (AR), Renal Disease, Rheumatoid Arthritis (RA) Additional Past Medical History / Comment(s): stroke apr 2017, migranes, diabetic neuropathy arms and legs, stage 2 kidney failure, PANCREATITIS, LEGALLY BLIND, enlarged prostate, trouble urinating Last Myocardial Infarction Date:: 2014? not sure History of Any Multi-Drug Resistant Organisms: None Reported Past Surgical History: No Surgical Hx Reported, Heart Catheterization With Stent Additional Past Surgical History / Comment(s): EGD, 4 stents Past Anesthesia/Blood Transfusion Reactions: No Reported Reaction Additional Past Anesthesia/Blood Transfusion Reaction / Comm: never had anethesia Date of Last Stent Placement:: 2017 Past Psychological History: Anxiety, Depression Additional Psychological History / Comment(s): Pt resides with his spouse. He uses a quad cane or walker to ambulate. He is legally blind. He reads minimally with magnifying glass and signs his name only now. His spouse drives him to [place]. Smoking Status: Never smoker Past Alcohol Use History: None Reported Past Drug Use History: None Reported - Past Family History Mother Family Medical History: CVA/TIA, Diabetes Mellitus, Hypertension Additional Family Medical History / Comment(s): Mother is 77yrs old. Father Family Medical History: CVA/TIA, Diabetes Mellitus, Myocardial Infarction (AR) Additional Family Medical History / Comment(s): Father of a AR in his 50s. Medications and Allergies Home Medications Medication Instructions Recorded Confirmed Type Docusate Sodium [Dok] 100 mg PO BID 09/12/17 01/17/19 History Gabapentin 600 mg PO BID 09/12/17 01/17/19 History Glimepiride [Amaryl] 1 mg PO QAM 09/12/17 01/17/19 History Lurasidone [Latuda] 40 mg PO HS 09/12/17 01/17/19 History sitaGLIPtin [Januvia] 100 mg PO QAM 09/12/17 01/17/19 History Pantoprazole [Protonix] 40 mg PO BID 11/05/17 01/17/19 History Tamsulosin [Flomax] 0.4 mg PO BID 11/05/17 01/17/19 History Atorvastatin [Lipitor] 80 mg PO HS tab 11/12/17 01/17/19 Rx Clopidogrel [Plavix] 75 mg PO HS 12/09/17 01/17/19 History Butalb/APAP/Caff 50-325-40Mg 1 tab PO Q4H PRN 12/12/18 01/17/19 History [Fioricet 50-325-40] Citalopram Hydrobromide [CeleXA] 60 mg PO DAILY 12/12/18 01/17/19 History Loratadine [Claritin] 10 mg PO DAILY 12/12/18 01/17/19 History Metoprolol Tartrate [Lopressor] 50 mg PO BID #60 tab 12/17/18 01/17/19 Rx amLODIPine [Norvasc] 5 mg PO DAILY #30 tab 12/17/18 01/17/19 Rx cloNIDine HCL [Catapres] 0.2 mg PO TID #90 tab 12/17/18 01/17/19 Rx hydrALAZINE HCL [Apresoline] 50 mg PO QID #120 tab 12/17/18 01/17/19 Rx Aspirin 81 mg PO HS 01/17/19 01/17/19 History Allergies Allergy/AdvReac Type Severity Reaction Status Date / Time Iodinated Contrast- Oral and Allergy Nausea & Verified 01/17/19 19:35 IV Dye Vomiting Physical Exam Vitals: Vital Signs Temp Pulse Resp BP Pulse Ox 01/19/19 07:30 98.2 F 83 20 169/77 92 L 01/19/19 06:27 88 164/90 01/19/19 06:15 201/91 01/19/19 03:45 150/84 01/19/19 03:21 100 17 186/92 92 L 01/19/19 01:24 88 168/83 01/19/19 01:15 182/87 01/18/19 23:48 87 140/81 01/18/19 23:32 139/82 01/18/19 23:28 90 150/77 01/18/19 23:09 98.8 F 101 H 16 208/96 95 01/18/19 22:27 187/88 01/18/19 22:24 104 H 209/98 01/18/19 22:16 101 H 205/96 01/18/19 21:57 97 174/85 01/18/19 21:10 202/100 01/18/19 20:55 98.8 F 101 H 15 190/93 97 01/18/19 15:55 98.2 F 105 H 16 187/91 87 L 01/18/19 14:57 97.8 F 106 H 16 186/99 95 Intake and Output 01/18/19 01/19/19 01/19/19 22:59 06:59 14:59 Intake Total 400 Output Total 900 700 Balance -900 -300 Intake: Intake, IV Titration 400 Amount Sodium Chloride 0.9% 1, 400 000 ml @ 50 mls/hr IV . Q20H [facility] Rx#:[id number] Output: Urine 900 700 Other: Voiding Method Indwelling Catheter Indwelling Catheter Indwelling Catheter # Voids 2 # Bowel Movements 1 Weight 86 kg General appearance: The patient is alert, oriented, in no acute distress. HET: Head is normocephalic and atraumatic. Pupils are equal and reactive. Oropharynx is clear without lesions. Neck: Supple without lymphadenopathy. Trachea midline. Heart: S1 S2. Regular rate and rhythm. Lungs: No crackles or wheezes are heard. Abdomen: Soft, very mild midepigastric tenderness, nondistended with bowel sounds. No peritoneal signs. No palpable organomegaly or masses. Extremities: Normal skin color and turgor. No cyanosis, rash, ulceration, clubbing, or edema. Radial and pedal pulses are 2/4 bilaterally. Neurological: No focal deficits. Strength and sensation are grossly intact. Results CBC & Chem 7: 01/20/19 05:47 01/20/19 05:47 Labs: Abnormal Lab Results - Last 24 Hours (Table) 01/18/19 01/18/19 01/18/19 Range/Units 11:51 11:51 13:26 WBC (3.8-10.6) k/uL RBC (4.30-5.90) m/uL Hgb (13.0-17.5) gm/dL Hct (39.0-53.0) % Neutrophils # (1.3-7.7) k/uL APTT (22.0-30.0) sec D-Dimer 0.92 H (<0.60) mg/L FEU Potassium (3.5-5.1) mmol/L BUN (9-20) mg/dL Creatinine (0.66-1.25) mg/dL Glucose (74-99) mg/dL POC Glucose (mg/dL) 325 H (75-99) mg/dL Iron 59 L (65-175) ug/dL Ferritin 409.1 H (22.0-322.0) ng/mL Troponin I (0.000-0.034) ng/mL 01/18/19 01/18/19 01/18/19 Range/Units 16:46 19:48 19:48 WBC (3.8-10.6) k/uL RBC (4.30-5.90) m/uL Hgb (13.0-17.5) gm/dL Hct (39.0-53.0) % Neutrophils # (1.3-7.7) k/uL APTT 49.1 H (22.0-30.0) sec D-Dimer (<0.60) mg/L FEU Potassium (3.5-5.1) mmol/L BUN (9-20) mg/dL Creatinine (0.66-1.25) mg/dL Glucose (74-99) mg/dL POC Glucose (mg/dL) 304 H (75-99) mg/dL Iron (65-175) ug/dL Ferritin (22.0-322.0) ng/mL Troponin I 0.907 H* (0.000-0.034) ng/mL 01/18/19 01/19/19 01/19/19 Range/Units 21:01 06:10 07:11 WBC (3.8-10.6) k/uL RBC (4.30-5.90) m/uL Hgb (13.0-17.5) gm/dL Hct (39.0-53.0) % Neutrophils # (1.3-7.7) k/uL APTT (22.0-30.0) sec D-Dimer (<0.60) mg/L FEU Potassium 5.3 H (3.5-5.1) mmol/L BUN 36 H (9-20) mg/dL Creatinine 2.01 H (0.66-1.25) mg/dL Glucose 303 H (74-99) mg/dL POC Glucose (mg/dL) 240 H 313 H (75-99) mg/dL Iron (65-175) ug/dL Ferritin (22.0-322.0) ng/mL Troponin I (0.000-0.034) ng/mL 01/19/19 01/19/19 01/19/19 Range/Units 07:11 10:30 12:09 WBC 19.1 H (3.8-10.6) k/uL RBC 3.33 L (4.30-5.90) m/uL Hgb 9.3 L (13.0-17.5) gm/dL Hct 29.6 L (39.0-53.0) % Neutrophils # 17.1 H (1.3-7.7) k/uL APTT (22.0-30.0) sec D-Dimer (<0.60) mg/L FEU Potassium (3.5-5.1) mmol/L BUN (9-20) mg/dL Creatinine (0.66-1.25) mg/dL Glucose (74-99) mg/dL POC Glucose (mg/dL) 243 H 268 H (75-99) mg/dL Iron (65-175) ug/dL Ferritin (22.0-322.0) ng/mL Troponin I (0.000-0.034) ng/mL US - abdomen: pending Assessment and Plan Assessment: Impression: 1. 53-year-old gentleman with a history of diabetes chronic nausea GERD CAD with PCI stent presents with chest pain shortness of breath elevated troponin acute on chronic nausea. EGD 1 year ago reported mild antral gastritis no evidence of peptic ulcer disease and to superficial erosions of the GE junction consistent with LA grade a reflux esophagitis. HIDA scan 1 year ago then normal limits. Possible underlying diabetic gastroparesis. 2. Elevated troponin history of CAD PCI stent cardiology following. 3. Leukocytosis. 4. Elevated creatinine. Plan: 1. Zofran 4 mg every 6 hours. Protonix 40 mg twice daily. Compazine suppositories as needed. We'll follow closely with you. Thank you for this kind referral and the opportunity to participate in the care of your patient. This consultation was discussed with Dr. Garcia. The impression and plan of care have been directed as dictated.
--- NOTE | 2019-01-19 13:21 | XR ---
EXAMINATION TYPE: XR chest 1V DATE OF EXAM: 01/19/2019 COMPARISON: Prior chest x-ray 01/18/2019 HISTORY: Shortness of breath and chest pain TECHNIQUE: Single frontal view of the chest is obtained. FINDINGS: There is some lucency along the medial aspect of the aorta in the thoracic region as well as the pericardium. Small left apical pneumothorax difficult to exclude. Airspace disease has develop ed in the perihilar region on the left, possibly upper and lower lobes. No sizable effusion. Patient is rotated. Heart size is stable. Aorta is dense. IMPRESSION: The abnormal lucency seen along the mediastinum could be a mach band effect rather than represent anterior pneumothorax. Follow-up recommended for better evaluation. A [place] critical message alert has been initiated for Bryant Olvera via the [employer] Critical Results System on 01/19/2019 1:18 PM. This message alert has been sent to Suyapanhmarquita Olvera via the preferences provided by the clinician for the receipt of Radiology Critical Findings. Message ID [id number].
--- NOTE | 2019-01-19 14:14 | US ---
EXAMINATION TYPE: US gallbladder DATE OF EXAM: 01/19/2019 COMPARISON: NONE CLINICAL HISTORY: abd pain. Nausea and vomiting. EXAM MEASUREMENTS: Liver Length: 13.6 cm Gallbladder Wall: 0.3 cm CBD: 0.4 cm Right Kidney: 10.8 x 6.9 x 5.4 cm There is some motion on the exam. Pancreas: Obscured by bowel gas Liver: wnl Gallbladder: wnl Evidence for sonographic Solorzano's sign: No CBD: wnl Right Kidney: wnl There is no ascites. IMPRESSION: Exam is somewhat limited.
[2019-01-19] MEDS: SODIUM FERRIC GLUCONAT-SUCROSE 125 MG in SODIUM CHLORIDE 0.9% 100 ML IVPB SCH (16:08)
[2019-01-19] MEDS: FUROSEMIDE 10 MG/ML 4 ML VIAL IV SCH ×2 (16:08→20:49)
--- NOTE | 2019-01-19 16:24 | CT ---
EXAMINATION TYPE: CT chest wo con DATE OF EXAM: 01/19/2019 COMPARISON: Radiograph same day HISTORY: 53-year-old male with pain, r/o pneumothorax TECHNIQUE: Contiguous axial scanning of the chest without IV contrast. Coronal and sagittal reconstru ctions performed. CT DLP: 418.5 mGycm Automated exposure control for dose reduction was used. FINDINGS: Heart upper limits of normal in size without pericardial effusion. Coronary vessel calcifications are present in remarkable for coronary artery disease. Aorta normal caliber with variant direct takeoff of the left vertebral artery directly from the aorti c arch. A few enlarged mediastinal lymph nodes measuring up to 1.1 cm at the right and left tracheobronchial angles likely reactive. There are small left greater than right pleural effusions with patchy and confluent areas of groundgl ass and more dense peribronchovascular patchy consolidation in the upper lungs again, left greater th an right. No pneumothorax. Small hiatal hernia. Visualized upper abdomen otherwise show scattered mild to moderate stool. Bones: No osseous destructive process. IMPRESSION: 1. NO PNEUMOTHORAX. 2. SMALL PLEURAL EFFUSIONS WITH PATCHY AND CONFLUENT AREAS OF GROUNDGLASS AND CONSOLIDATION, LEFT GRE ATER THAN RIGHT. CORRELATE FOR POSSIBLE ETIOLOGIES INCLUDING PULMONARY EDEMA, ARDS, MULTIFOCAL PNEUMO FATMATA, INTERSTITIAL PNEUMONITIS, HYPERSENSITIVITY PNEUMONITIS, VASCULITIS, ETC. 3. SMALL HIATAL HERNIA.
[2019-01-19 16:38] LABS: Glucose,Whole Blood 201 mg/dL (75-99)
[2019-01-19] MEDS: ONDANSETRON 4 MG/2 ML VIAL IVP SCH ×2 (17:16→23:16)
[2019-01-19] MEDS: CLOPIDOGREL 75 MG TAB PO SCH (20:43)
[2019-01-19] MEDS: ATORVASTATIN 80 MG TAB PO SCH (20:43)
[2019-01-19] MEDS: LURASIDONE 20 MG TAB PO SCH (20:44)
[2019-01-19 20:51] LABS: Glucose,Whole Blood 207 mg/dL (75-99)
[2019-01-19 23:00] LABS: Glucose,Whole Blood 156 mg/dL (75-99)
[2019-01-20] MEDS: NITROGLYCERIN OINT 1 INCH/GM PACKET TOPICAL SCH ×4 (00:15→17:51)
[2019-01-20] MEDS: ONDANSETRON 4 MG/2 ML VIAL IVP SCH ×3 (05:40→17:51)
[2019-01-20 06:09] LABS: Basophils % (A) 0 %; Eosinophils % (A) 0 %; HCT 22.5 % (39.0-53.0); Lymphocytes # (A) 1.1 k/uL (1.0-4.8); Lymphocytes % (A) 9 %; MCH 27.7 pg (25.0-35.0); MCHC 31.8 g/dL (31.0-37.0); MCV 87.2 fL (80.0-100.0); Mean Platelet Volume 7.4; Monocytes # (A) 0.8 k/uL (0-1.0); Monocytes % (A) 6 %; Neutrophils # (A) 10.7 k/uL (1.3-7.7); Neutrophils % (A) 83 %; Platelet Count 149 k/uL (150-450); RBC 2.58 m/uL (4.30-5.90); RDW 14.3 % (11.5-15.5)
[2019-01-20 06:11] LABS: Glucose,Whole Blood 185 mg/dL (75-99)
[2019-01-20 06:19] LABS: HGB 7.1 gm/dL (13.0-17.5)
[2019-01-20 06:32] LABS: Calcium 8.2 mg/dL (8.4-10.2); Potassium 4.1 mmol/L (3.5-5.1)
[2019-01-20] MEDS: INSULIN ASPART (NovoLOG) 100 UNIT/ML VIAL SQ SCH ×4 (06:36→22:11)
[2019-01-20] MEDS: CITALOPRAM HYDROBROMIDE 20 MG TAB PO SCH (09:01)
[2019-01-20] MEDS: PANTOPRAZOLE 40 MG/10 ML VIAL IVP SCH ×2 (09:01→22:09)
[2019-01-20] MEDS: SODIUM FERRIC GLUCONAT-SUCROSE 125 MG in SODIUM CHLORIDE 0.9% 100 ML IVPB SCH (09:01)
[2019-01-20] MEDS: GABAPENTIN 300 MG CAP PO SCH ×2 (09:01→22:08)
[2019-01-20] MEDS: FUROSEMIDE 10 MG/ML 4 ML VIAL IV SCH (09:02)
[2019-01-20] MEDS: DOCUSATE 100 MG CAP PO SCH ×2 (09:02→22:09)
[2019-01-20] MEDS: ASPIRIN 81 MG PO SCH (09:02)
[2019-01-20] MEDS: LORATADINE 10 MG TAB PO SCH (09:02)
[2019-01-20] MEDS: amLODIPine 5 MG TAB PO SCH ×2 (09:02→22:09)
[2019-01-20] MEDS: GLIMEPIRIDE 1 MG TAB PO SCH (09:02)
[2019-01-20] MEDS: hydrALAZINE HCL 50 MG TAB PO SCH ×4 (09:03→22:09)
[2019-01-20] MEDS: TAMSULOSIN 0.4 MG CAP.ER.24H PO SCH ×2 (09:03→22:09)
[2019-01-20] MEDS: METOPROLOL SUCCINATE (ER) 50 MG TAB.ER.24H PO SCH (09:03)
[2019-01-20] MEDS: LINAGLIPTIN 5 MG TABLET PO SCH (09:03)
[2019-01-20] MEDS: NITROGLYCERIN SL TABS 0.4 MG TAB SUBLINGUAL PRN (10:26)
--- NOTE | 2019-01-20 10:42 | P.PN ---
Subjective Patient seen in follow-up for acute kidney injury on chronic kidney disease. Patient has chronic kidney disease stage III with baseline creatinine in the range of 1.6-2 secondary to diabetic kidney disease. Creatinine today is 2.45. Patient has a chronic Garcia catheter. He is nonoliguric. Currently on Lasix 40 mg IV twice daily which was started yesterday. He is tolerating oral intake. Vital signs are stable. General: The patient appeared well nourished and normally developed. HEENT: Head exam is unremarkable. Neck is without jugular venous distension. LUNGS: Lungs are clear to auscultation and percussion. Breath sounds decreased. HEART: Rate and Rhythm are regular. First and second heart sounds normal. No murmurs, rubs or gallops. ABDOMEN: Abdominal exam reveals normal bowel sounds. Non-tender and non- distended. No evidence of peritonitis. EXTREMITITES: Trace edema. Tremors noted. Objective - Vital Signs Vital signs: Vital Signs Temp 98.6 F 01/20/19 08:00 Pulse 77 01/20/19 08:00 Resp 16 01/20/19 08:00 BP 134/70 01/20/19 08:00 Pulse Ox 97 01/20/19 08:00 Intake & Output 01/19/19 01/20/19 01/20/19 18:59 06:59 18:59 Intake Total 440 Output Total 600 1200 Balance -160 -1200 Weight 87.3 kg Intake: Oral 440 Output: Urine 600 1200 Other: Voiding Method Indwelling Catheter Indwelling Catheter Indwelling Catheter # Bowel Movements 1 - Labs CBC & Chem 7: 01/20/19 05:47 01/20/19 05:47 Labs: Abnormal Lab Results - Last 24 Hours (Table) 01/19/19 01/19/19 01/19/19 Range/Units 12:09 16:34 19:29 WBC (3.8-10.6) k/uL RBC (4.30-5.90) m/uL Hgb (13.0-17.5) gm/dL Hct (39.0-53.0) % Plt Count (150-450) k/uL Neutrophils # (1.3-7.7) k/uL APTT 69.3 H (22.0-30.0) sec BUN (9-20) mg/dL Creatinine (0.66-1.25) mg/dL Glucose (74-99) mg/dL POC Glucose (mg/dL) 268 H 201 H (75-99) mg/dL Calcium (8.4-10.2) mg/dL 01/19/19 01/19/19 01/20/19 Range/Units 20:50 22:48 05:47 WBC 13.0 H (3.8-10.6) k/uL RBC 2.58 L (4.30-5.90) m/uL Hgb 7.1 L D (13.0-17.5) gm/dL Hct 22.5 L (39.0-53.0) % Plt Count 149 L (150-450) k/uL Neutrophils # 10.7 H (1.3-7.7) k/uL APTT (22.0-30.0) sec BUN (9-20) mg/dL Creatinine (0.66-1.25) mg/dL Glucose (74-99) mg/dL POC Glucose (mg/dL) 207 H 156 H (75-99) mg/dL Calcium (8.4-10.2) mg/dL 01/20/19 01/20/19 01/20/19 Range/Units 05:47 06:09 08:01 WBC (3.8-10.6) k/uL RBC (4.30-5.90) m/uL Hgb (13.0-17.5) gm/dL Hct (39.0-53.0) % Plt Count (150-450) k/uL Neutrophils # (1.3-7.7) k/uL APTT 56.6 H (22.0-30.0) sec BUN 50 H (9-20) mg/dL Creatinine 2.45 H (0.66-1.25) mg/dL Glucose 171 H (74-99) mg/dL POC Glucose (mg/dL) 185 H (75-99) mg/dL Calcium 8.2 L (8.4-10.2) mg/dL Assessment and Plan Plan: Assessment: 1. Chronic kidney disease stage III secondary to diabetic kidney disease with baseline creatinine in the range of 1.6-2 recently. Ultrasound from last month revealed no evidence of hydronephrosis. 2. Chest pain. Rule out acute coronary syndrome. Cardiology following. No plans for cardiac catheterization this admission. 3. History of coronary artery disease status post 4 cardiac stents. 4. Urinary retention. Currently has a Garcia catheter in place. 5. Diabetes mellitus. 6. Diastolic CHF with moderate MR. Currently compensated. 7. Hypertension with chronic kidney disease. Controlled. 8. Anemia chronic kidney disease. Iron deficiency noted. Plan: I will change Lasix to 40 mg orally once daily. Encourage oral intake. Maintain current antihypertensives. Maintain current antihypertensives. Avoid nephrotoxins. IV iron 2 doses. Second dose today. Add Aranesp. Continue to monitor renal function and urine output. Repeat electrolytes in the morning.
[2019-01-20 11:41] LABS: Glucose,Whole Blood 211 mg/dL (75-99)
[2019-01-20] MEDS ORDERED: DARBEPOETIN ALFA 40 MCG/0.4 ML SYRINGE SQ SCH (12:00)
--- NOTE | 2019-01-20 12:07 | P.PN ---
Subjective Progress Note Date: 01/20/19 Principal diagnosis: Nausea Nausea improved. No abdominal complaints. Tolerating small meals. Creatinine increased 2.4 today. Ultrasound abdomen no ascites. CT chest no PE. Small hiatal hernia. Objective - Vital Signs Vital signs: Vital Signs Temp 98.2 F 01/20/19 11:46 Pulse 79 01/20/19 11:46 Resp 16 01/20/19 11:46 BP 126/74 01/20/19 11:46 Pulse Ox 97 01/20/19 11:46 Intake & Output 01/19/19 01/20/19 01/20/19 18:59 06:59 18:59 Intake Total 440 Output Total 600 1200 Balance -160 -1200 Weight 87.3 kg Intake: Oral 440 Output: Urine 600 1200 Other: Voiding Method Indwelling Catheter Indwelling Catheter Indwelling Catheter # Bowel Movements 1 - Exam General appearance: The patient is alert, oriented, in no acute distress. HET: Head is normocephalic and atraumatic. Pupils are equal and reactive. Oropharynx is clear without lesions. Neck: Supple without lymphadenopathy. Trachea midline. Heart: S1 S2. Regular rate and rhythm. Lungs: No crackles or wheezes are heard. Abdomen: Soft, nontender, nondistended with bowel sounds. No peritoneal signs. No palpable organomegaly or masses. Extremities: Normal skin color and turgor. No cyanosis, rash, ulceration, clubbing, or edema. Radial and pedal pulses are 2/4 bilaterally. Neurological: No focal deficits. Strength and sensation are grossly intact. - Labs CBC & Chem 7: 01/20/19 05:47 01/20/19 05:47 Labs: Abnormal Lab Results - Last 24 Hours (Table) 01/19/19 01/19/19 01/19/19 Range/Units 12:09 16:34 19:29 WBC (3.8-10.6) k/uL RBC (4.30-5.90) m/uL Hgb (13.0-17.5) gm/dL Hct (39.0-53.0) % Plt Count (150-450) k/uL Neutrophils # (1.3-7.7) k/uL APTT 69.3 H (22.0-30.0) sec BUN (9-20) mg/dL Creatinine (0.66-1.25) mg/dL Glucose (74-99) mg/dL POC Glucose (mg/dL) 268 H 201 H (75-99) mg/dL Calcium (8.4-10.2) mg/dL 01/19/19 01/19/19 01/20/19 Range/Units 20:50 22:48 05:47 WBC 13.0 H (3.8-10.6) k/uL RBC 2.58 L (4.30-5.90) m/uL Hgb 7.1 L D (13.0-17.5) gm/dL Hct 22.5 L (39.0-53.0) % Plt Count 149 L (150-450) k/uL Neutrophils # 10.7 H (1.3-7.7) k/uL APTT (22.0-30.0) sec BUN (9-20) mg/dL Creatinine (0.66-1.25) mg/dL Glucose (74-99) mg/dL POC Glucose (mg/dL) 207 H 156 H (75-99) mg/dL Calcium (8.4-10.2) mg/dL 01/20/19 01/20/19 01/20/19 Range/Units 05:47 06:09 08:01 WBC (3.8-10.6) k/uL RBC (4.30-5.90) m/uL Hgb (13.0-17.5) gm/dL Hct (39.0-53.0) % Plt Count (150-450) k/uL Neutrophils # (1.3-7.7) k/uL APTT 56.6 H (22.0-30.0) sec BUN 50 H (9-20) mg/dL Creatinine 2.45 H (0.66-1.25) mg/dL Glucose 171 H (74-99) mg/dL POC Glucose (mg/dL) 185 H (75-99) mg/dL Calcium 8.2 L (8.4-10.2) mg/dL 01/20/19 Range/Units 11:39 WBC (3.8-10.6) k/uL RBC (4.30-5.90) m/uL Hgb (13.0-17.5) gm/dL Hct (39.0-53.0) % Plt Count (150-450) k/uL Neutrophils # (1.3-7.7) k/uL APTT (22.0-30.0) sec BUN (9-20) mg/dL Creatinine (0.66-1.25) mg/dL Glucose (74-99) mg/dL POC Glucose (mg/dL) 211 H (75-99) mg/dL Calcium (8.4-10.2) mg/dL - Imaging and Cardiology CT scan - chest: report reviewed (Dr. Garcia) US - abdomen: report reviewed (Dr. Garcia) Assessment and Plan Assessment: Impression: 1. 53-year-old gentleman with a history of diabetes chronic nausea GERD CAD with PCI stent presents with chest pain shortness of breath elevated troponin acute on chronic nausea. EGD 1 year ago reported mild antral gastritis no evidence of peptic ulcer disease and to superficial erosions of the GE junction consistent with LA grade a reflux esophagitis. HIDA scan 1 year ago then normal limits. Possible underlying diabetic gastroparesis. 2. Elevated troponin history of CAD PCI stent cardiology following. 3. Leukocytosis. Plan: 1. Continue on Zofran 4 mg every 6 hours. Protonix 40 mg twice daily. Compazine suppositories as needed. Small frequent meals. We'll follow as needed.. Assessment plan a care discussed with Dr. Garcia
--- NOTE | 2019-01-20 12:55 | P.PN ---
Subjective Progress Note Date: 01/20/19 This is a pleasant 53-year-old gentleman who follows regularly with Dr. VC Church in the office. He has a known history of diabetes, chronic kidney disease, hypertension, hyperlipidemia, he also has history of TIA in the past, rheumatoid arthritis, family history of premature coronary artery disease, he himself has coronary artery disease and in October of last year underwent angioplasty and stenting of the chronically occluded mid and proximal circumflex artery. He presents to the hospital on this occasion with symptoms of chest discomfort, shortness of breath and bilateral lower extremity swelling. According to the patient, he's been experiencing discomfort in his chest which she describes as a tightness that comes and goes. He states it does remind him of what he had prior to his stent placement. Patient also has been much more short of breath than usual, and is experiencing symptoms of nausea. He does have bilateral lower extremity edema which according to the is about the same as his usual. Chest x-ray did not reveal any active cardiopulmonary disease. EKG shows a normal sinus rhythm with no acute changes noted. KUB was performed which was negative. Blood pressure 186/99, heart rate 106, 95% on room air. White blood cell count 6.1, hemoglobin 7.9, platelet count 146. D- dimer 0.9, sodium 141, potassium 4.3, BUN 29 and creatinine 1.7. Troponins 0.012, 0.20, 0.28. BNP level 1510. At the time of my examination, patient has just been brought up to the cardiac unit, he spent most of his time in the emergency room. He is quite nauseated and weak, feels short of breath, currently chest pain-free. 01/19/2019 Patient was seen and examined this morning, he does state that he's feeling somewhat better today, still appears to be quite weak. Complaining of feeling short of breath, sitting up in the chair at bedside today. Denies any further chest tightness. Blood pressure 164/90 with a heart rate in the 80s, 92% on 2 L of oxygen. White blood cell count today is up to 19,000, hemoglobin 9.3, platelet count 241. Sodium 143, potassium 5.3, BUN 36 and creatinine 2.01. Magnesium 1.9. 01/20/2019 Patient seen and examined this morning, nausea is improving. Creatinine today is 2.4. He did have one episode of chest discomfort earlier this morning, and EKG was performed which did not reveal any new changes. Blood pressure 126/70 with a heart rate in the 70s, 97% on 2 L of oxygen. White blood cell count 13, hemoglobin 7.1 today, platelet count 149. Sodium 138, potassium 4.1, BUN 50 and creatinine 2.4, magnesium 2.0. Objective - Vital Signs Vital signs: Vital Signs Temp 98.2 F 01/20/19 11:46 Pulse 79 01/20/19 11:46 Resp 16 01/20/19 11:46 BP 126/74 01/20/19 11:46 Pulse Ox 97 01/20/19 11:46 Intake & Output 01/19/19 01/20/19 01/20/19 18:59 06:59 18:59 Intake Total 440 Output Total 600 1200 Balance -160 -1200 Weight 87.3 kg Intake: Oral 440 Output: Urine 600 1200 Other: Voiding Method Indwelling Catheter Indwelling Catheter Indwelling Catheter # Bowel Movements 1 - Exam PHYSICAL EXAMINATION: GENERAL: 53-year-old pale looking gentleman in no acute distress at the time of my examination HEENT: Head is atraumatic, normocephalic. Pupils equal, round. Sclera anicteric. Conjunctiva are clear. Mucous membranes of the mouth are moist. N ervin is supple. There is elevated jugular venous pressure. No Carotid bruit is heard. HEART EXAMINATION: Heart S1, S2 normal. No murmur or gallop heard. CHEST EXAMINATION: Lungs reveal some coarse crackles with diminished air entry to the bases. ABDOMEN: Soft, nontender. Bowel sounds are heard. No organomegaly noted. EXTREMITIES: 2+ peripheral pulses with 2+ evidence of peripheral edema and no calf tenderness noted. NEUROLOGIC patient is awake, alert and oriented 3 . - Labs CBC & Chem 7: 01/20/19 05:47 01/20/19 05:47 Labs: Abnormal Lab Results - Last 24 Hours (Table) 01/19/19 01/19/19 01/19/19 Range/Units 16:34 19:29 20:50 WBC (3.8-10.6) k/uL RBC (4.30-5.90) m/uL Hgb (13.0-17.5) gm/dL Hct (39.0-53.0) % Plt Count (150-450) k/uL Neutrophils # (1.3-7.7) k/uL APTT 69.3 H (22.0-30.0) sec BUN (9-20) mg/dL Creatinine (0.66-1.25) mg/dL Glucose (74-99) mg/dL POC Glucose (mg/dL) 201 H 207 H (75-99) mg/dL Calcium (8.4-10.2) mg/dL 01/19/19 01/20/19 01/20/19 Range/Units 22:48 05:47 05:47 WBC 13.0 H (3.8-10.6) k/uL RBC 2.58 L (4.30-5.90) m/uL Hgb 7.1 L D (13.0-17.5) gm/dL Hct 22.5 L (39.0-53.0) % Plt Count 149 L (150-450) k/uL Neutrophils # 10.7 H (1.3-7.7) k/uL APTT (22.0-30.0) sec BUN 50 H (9-20) mg/dL Creatinine 2.45 H (0.66-1.25) mg/dL Glucose 171 H (74-99) mg/dL POC Glucose (mg/dL) 156 H (75-99) mg/dL Calcium 8.2 L (8.4-10.2) mg/dL 01/20/19 01/20/19 01/20/19 Range/Units 06:09 08:01 11:39 WBC (3.8-10.6) k/uL RBC (4.30-5.90) m/uL Hgb (13.0-17.5) gm/dL Hct (39.0-53.0) % Plt Count (150-450) k/uL Neutrophils # (1.3-7.7) k/uL APTT 56.6 H (22.0-30.0) sec BUN (9-20) mg/dL Creatinine (0.66-1.25) mg/dL Glucose (74-99) mg/dL POC Glucose (mg/dL) 185 H 211 H (75-99) mg/dL Calcium (8.4-10.2) mg/dL Assessment and Plan Plan: Assessment and plan #1 accelerated hypertension #2 symptoms of chest tightness with mild abnormality in troponin, possible acute coronary syndrome. EKG shows normal sinus rhythm with no acute changes. #3 history of recent CVA #4 persistent nausea and vomiting with associated decreased appetite #5 diabetes #6 hyperlipidemia #7 rheumatoid arthritis #8 history of anxiety or depression #9 abnormal troponin, patient denies having any chest discomfort #10 coronary artery disease with prior PCI, patient underwent PTCA and stenting of a dominant mid and proximal circumflex artery in 2018 #11 anemia #12 congestive heart failure, diastolic acute on chronic Plan Patient's IV Lasix was decreased to 40 mg IV daily today, we will discontinue the Nitropaste and put the patient on some oral nitrates. The decision at this time is to continue maximal medical therapy, and consider cardiac catheterization once the patient is stable from a kidney and heart failure perspective. DNP note has been reviewed, I agree with a documented findings and plan of care. Patient was seen and examined.
--- NOTE | 2019-01-20 13:24 | P.PN ---
Subjective 53-year-old admitted with possible non-ST elevation myocardial infarction Patient chest pain was similar to the pain week when he had microinfarction the past. Patient appears to be volume overloaded with elevated JVD although doesn't have any significant crackles chest x-ray showing pulmonary edema because of that reason I'll start IV fluids patient was started on Lasix. Patient is still nauseous quite a bit patient was receiving Protonix able to take some oral diet today looks better than yesterday but does have leukocytosis I am obtaining an ultrasound of the abdomen to rule out any cholelithiasis although patient doesn't have any pain in the right upper quadrant. 01/20/2019 Patient respiratory status improved but his serum creatinine has worsened patient's Lasix was cut down to daily from twice a day. Patient had a CAT scan of the chest as there is a concern on the chest x-ray that may be a pneumothorax. There is no pneumothorax evident on the CAT scan of the chest but patient does have diffuse pulmonary edema. Patient nausea improved. Constitutional: Denied any fatigue denied any fever. Cardio vascular: denied any chest pain, palpitations Gastrointestinal nausea resolved Pulmonary: Shortness of breath significantly improved Neurologic denied any new focal deficits All inpatient medications were reviewed and appropriate changes in these medications as dictated in the interval history and assessment and plan. Objective - Vital Signs Vital signs: Vital Signs Temp 98.2 F 01/20/19 11:46 Pulse 79 01/20/19 11:46 Resp 16 01/20/19 11:46 BP 126/74 01/20/19 11:46 Pulse Ox 97 01/20/19 11:46 Intake & Output 01/19/19 01/20/19 01/20/19 18:59 06:59 18:59 Intake Total 440 Output Total 600 1200 Balance -160 -1200 Weight 87.3 kg Intake: Oral 440 Output: Urine 600 1200 Other: Voiding Method Indwelling Catheter Indwelling Catheter Indwelling Catheter # Bowel Movements 1 - Exam PHYSICAL EXAMINATION: GENERAL: The patient is alert and oriented x3, not in any acute distress. Well developed, well nourished. HEENT: Pupils are round and equally reacting to light. EOMI. No scleral icterus. No conjunctival pallor. Normocephalic, atraumatic. No pharyngeal erythema. No thyromegaly. CARDIOVASCULAR: S1 and S2 present. No murmurs, rubs, or gallops. JVD improved PULMONARY: Chest is clear to auscultation, no wheezing or crackles. ABDOMEN: Mildly distended tympanic sluggish bowel sounds no organomegaly no significant tenderness MUSCULOSKELETAL: No joint swelling or deformity. EXTREMITIES: No cyanosis, clubbing, or pedal edema improved NEUROLOGICAL: Gross neurological examination did not reveal any focal deficits. SKIN: No rashes. - Labs CBC & Chem 7: 01/20/19 05:47 01/20/19 05:47 Labs: Abnormal Lab Results - Last 24 Hours (Table) 01/19/19 01/19/19 01/19/19 Range/Units 16:34 19:29 20:50 WBC (3.8-10.6) k/uL RBC (4.30-5.90) m/uL Hgb (13.0-17.5) gm/dL Hct (39.0-53.0) % Plt Count (150-450) k/uL Neutrophils # (1.3-7.7) k/uL APTT 69.3 H (22.0-30.0) sec BUN (9-20) mg/dL Creatinine (0.66-1.25) mg/dL Glucose (74-99) mg/dL POC Glucose (mg/dL) 201 H 207 H (75-99) mg/dL Calcium (8.4-10.2) mg/dL 01/19/19 01/20/19 01/20/19 Range/Units 22:48 05:47 05:47 WBC 13.0 H (3.8-10.6) k/uL RBC 2.58 L (4.30-5.90) m/uL Hgb 7.1 L D (13.0-17.5) gm/dL Hct 22.5 L (39.0-53.0) % Plt Count 149 L (150-450) k/uL Neutrophils # 10.7 H (1.3-7.7) k/uL APTT (22.0-30.0) sec BUN 50 H (9-20) mg/dL Creatinine 2.45 H (0.66-1.25) mg/dL Glucose 171 H (74-99) mg/dL POC Glucose (mg/dL) 156 H (75-99) mg/dL Calcium 8.2 L (8.4-10.2) mg/dL 01/20/19 01/20/19 01/20/19 Range/Units 06:09 08:01 11:39 WBC (3.8-10.6) k/uL RBC (4.30-5.90) m/uL Hgb (13.0-17.5) gm/dL Hct (39.0-53.0) % Plt Count (150-450) k/uL Neutrophils # (1.3-7.7) k/uL APTT 56.6 H (22.0-30.0) sec BUN (9-20) mg/dL Creatinine (0.66-1.25) mg/dL Glucose (74-99) mg/dL POC Glucose (mg/dL) 185 H 211 H (75-99) mg/dL Calcium (8.4-10.2) mg/dL Assessment and Plan Plan: Chest pain with elevated troponins, possibly of non-ST elevation microinfarction: Patient is seated IV heparin for 2 days sepsis subsequently now discontinued. -Congestive heart failure chronic diastolic dysfunction with acute exacerbation patient will be continued on Lasix with a lower dose since his kidney function has worsened -Nausea vomiting with abdominal distention: Probably related to acute myocardial infarction. Ultrasound essentially within normal limits -Carotid disease with previous stents in the past -Type 2 diabetes mellitus -Urinary retention patient has a Garcia catheter urine intervention can be related to constipation -Increasing creatinine acute renal failure secondary to prerenal azotemia and congestive heart failure but worsening renal function is due to excessive diuresis on aggressive diuresis cutting down on the diuretic therapy as mentioned above -chronic kidney disease stage III secondary to diabetic nephropathy
[2019-01-20 16:59] LABS: Glucose,Whole Blood 130 mg/dL (75-99)
[2019-01-20 21:08] LABS: Glucose,Whole Blood 209 mg/dL (75-99)
[2019-01-20] MEDS ORDERED: ALTEPLASE 2 MG VIAL (CATHFLO) IV STA (21:34)
[2019-01-20] MEDS: LURASIDONE 20 MG TAB PO SCH (22:00)
[2019-01-20] MEDS: CLOPIDOGREL 75 MG TAB PO SCH (22:09)
[2019-01-20] MEDS: ATORVASTATIN 80 MG TAB PO SCH (22:09)
[2019-01-21] MEDS: ONDANSETRON 4 MG/2 ML VIAL IVP SCH ×5 (03:26→23:33)
[2019-01-21 06:26] LABS: Glucose,Whole Blood 146 mg/dL (75-99)
[2019-01-21 06:39] LABS: Calcium 7.9 mg/dL (8.4-10.2)
[2019-01-21] MEDS: NITROGLYCERIN OINT 1 INCH/GM PACKET TOPICAL SCH ×4 (07:10→23:18)
[2019-01-21] MEDS: INSULIN ASPART (NovoLOG) 100 UNIT/ML VIAL SQ SCH ×4 (07:11→21:33)
[2019-01-21] MEDS ORDERED: FUROSEMIDE 10 MG/ML 4 ML VIAL IV SCH (09:00)
[2019-01-21] MEDS: amLODIPine 5 MG TAB PO SCH ×2 (09:14→21:34)
[2019-01-21] MEDS: LINAGLIPTIN 5 MG TABLET PO SCH (09:14)
[2019-01-21] MEDS: DOCUSATE 100 MG CAP PO SCH ×2 (09:14→21:34)
[2019-01-21] MEDS: PANTOPRAZOLE 40 MG/10 ML VIAL IVP SCH (09:14)
[2019-01-21] MEDS: hydrALAZINE HCL 50 MG TAB PO SCH ×4 (09:14→21:34)
[2019-01-21] MEDS: TAMSULOSIN 0.4 MG CAP.ER.24H PO SCH ×2 (09:14→21:34)
[2019-01-21] MEDS: GABAPENTIN 300 MG CAP PO SCH ×2 (09:14→21:34)
[2019-01-21] MEDS: CITALOPRAM HYDROBROMIDE 20 MG TAB PO SCH (09:15)
[2019-01-21] MEDS: LORATADINE 10 MG TAB PO SCH (09:15)
[2019-01-21] MEDS: METOPROLOL SUCCINATE (ER) 50 MG TAB.ER.24H PO SCH (09:15)
[2019-01-21] MEDS: ASPIRIN 81 MG PO SCH (09:15)
[2019-01-21] MEDS: SODIUM FERRIC GLUCONAT-SUCROSE 125 MG in SODIUM CHLORIDE 0.9% 100 ML IVPB SCH (09:15)
[2019-01-21] MEDS: GLIMEPIRIDE 1 MG TAB PO SCH (09:17)
--- NOTE | 2019-01-21 11:44 | P.PN ---
Subjective Progress Note Date: 01/21/19 Principal diagnosis: Nausea Nausea improved. No abdominal complaints. Tolerating small meals. Objective - Vital Signs Vital signs: Vital Signs Temp 98.5 F 01/21/19 08:00 Pulse 78 01/21/19 08:00 Resp 18 01/21/19 08:00 BP 134/66 01/21/19 08:00 Pulse Ox 96 01/21/19 08:00 Intake & Output 01/20/19 01/21/19 01/21/19 18:59 06:59 18:59 Intake Total 480 240 Output Total 700 1400 Balance -220 -1400 240 Weight 89.3 kg Intake: Oral 480 240 Output: Urine 700 1400 Other: Voiding Method Indwelling Catheter Indwelling Catheter Indwelling Catheter # Voids 2 - Exam General appearance: The patient is alert, oriented, in no acute distress. HET: Head is normocephalic and atraumatic. Pupils are equal and reactive. Oropharynx is clear without lesions. Neck: Supple without lymphadenopathy. Trachea midline. Heart: S1 S2. Regular rate and rhythm. Lungs: No crackles or wheezes are heard. Abdomen: Soft, nontender, nondistended with bowel sounds. No peritoneal signs. No palpable organomegaly or masses. Extremities: Normal skin color and turgor. No cyanosis, rash, ulceration, clubbing, or edema. Radial and pedal pulses are 2/4 bilaterally. Neurological: No focal deficits. Strength and sensation are grossly intact. - Labs CBC & Chem 7: 01/20/19 05:47 01/21/19 05:58 Labs: Abnormal Lab Results - Last 24 Hours (Table) 01/20/19 01/20/19 01/21/19 Range/Units 16:55 21:07 05:58 Sodium 136 L (137-145) mmol/L BUN 57 H (9-20) mg/dL Creatinine 2.64 H (0.66-1.25) mg/dL Glucose 120 H (74-99) mg/dL POC Glucose (mg/dL) 130 H 209 H (75-99) mg/dL Calcium 7.9 L (8.4-10.2) mg/dL 01/21/19 Range/Units 06:24 Sodium (137-145) mmol/L BUN (9-20) mg/dL Creatinine (0.66-1.25) mg/dL Glucose (74-99) mg/dL POC Glucose (mg/dL) 146 H (75-99) mg/dL Calcium (8.4-10.2) mg/dL Assessment and Plan Assessment: Impression: 1. 53-year-old gentleman with a history of diabetes chronic nausea GERD CAD with PCI stent presents with chest pain shortness of breath elevated troponin acute on chronic nausea. EGD 1 year ago reported mild antral gastritis no evidence of peptic ulcer disease and to superficial erosions of the GE junction consistent with LA grade a reflux esophagitis. HIDA scan 1 year ago then normal limits. Possible underlying diabetic gastroparesis. 2. Elevated troponin history of CAD PCI stent cardiology following. 3. Leukocytosis. 4. Elevated creatinine. Plan: 1. Tinea Zofran 4 mg every 6 hours. Protonix 40 mg twice daily. Compazine suppositories as needed. Return to office 4-6 weeks. We'll follow as needed. Assessment and plan a care discussed with Dr. Garcia
[2019-01-21 11:53] LABS: Glucose,Whole Blood 188 mg/dL (75-99)
--- NOTE | 2019-01-21 12:31 | CONS ---
CONSULTATION [place] is a 53-year-old gentleman with complex and multiple medical problems including anemia, renal insufficiency, cardiomyopathy who was admitted to hospital with chest pain. He needs cardiac catheterization. He is stable otherwise. He has had elevated blood pressure. This morning he is doing fine, free of chest pain or difficulty in breathing. PHYSICAL EXAM: Heart rate is 78 beats per minute, blood pressure is 130/66, respiratory rate is 18. Chest exam reveals good air entry bilaterally. Heart exam reveals first and second heart sounds. No gallop. Abdomen is soft. Exam of the extremities reveals bilateral 1+ pitting edema. LABS: Show potassium of 4, BUN is 57, creatinine is 2.6. ASSESSMENT: 1. Chest pain with elevated troponin. 2. Hypertension. 3. Coronary artery disease, status post prior angioplasty. 4. Anemia. 5. Renal insufficiency. PLAN: Patient will continue with the current medications. When okay with Nephrology, we will consider cardiac catheterization with Dr. VC Church. MMTIMOTHY / SHAHRIARN: [id number] /
--- NOTE | 2019-01-21 15:03 | P.PN ---
Subjective 53-year-old admitted with possible non-ST elevation myocardial infarction Patient chest pain was similar to the pain week when he had microinfarction the past. Patient appears to be volume overloaded with elevated JVD although doesn't have any significant crackles chest x-ray showing pulmonary edema because of that reason I'll start IV fluids patient was started on Lasix. Patient is still nauseous quite a bit patient was receiving Protonix able to take some oral diet today looks better than yesterday but does have leukocytosis I am obtaining an ultrasound of the abdomen to rule out any cholelithiasis although patient doesn't have any pain in the right upper quadrant. 01/20/2019 Patient respiratory status improved but his serum creatinine has worsened patient's Lasix was cut down to daily from twice a day. Patient had a CAT scan of the chest as there is a concern on the chest x-ray that may be a pneumothorax. There is no pneumothorax evident on the CAT scan of the chest but patient does have diffuse pulmonary edema. Patient nausea improved. 01/21/2019 She looks better today but had a his creatinine went up a bit patient remains on 6 once a day continue to monitor kidney function possibly of cardiac catheterization on Thursday Constitutional: Denied any fatigue denied any fever. Cardio vascular: denied any chest pain, palpitations Gastrointestinal nausea resolved Pulmonary: Shortness of breath significantly improved Neurologic denied any new focal deficits All inpatient medications were reviewed and appropriate changes in these medications as dictated in the interval history and assessment and plan. Objective - Vital Signs Vital signs: Vital Signs Temp 98.6 F 01/21/19 12:00 Pulse 74 01/21/19 12:00 Resp 18 01/21/19 12:00 BP 129/66 01/21/19 12:00 Pulse Ox 99 01/21/19 12:00 Intake & Output 01/20/19 01/21/19 01/21/19 18:59 06:59 18:59 Intake Total 480 480 Output Total 700 1400 Balance -220 -1400 480 Weight 89.3 kg Intake: Oral 480 480 Output: Urine 700 1400 Other: Voiding Method Indwelling Catheter Indwelling Catheter Indwelling Catheter # Voids 2 0 - Exam PHYSICAL EXAMINATION: GENERAL: The patient is alert and oriented x3, not in any acute distress. Well developed, well nourished. HEENT: Pupils are round and equally reacting to light. EOMI. No scleral icterus. No conjunctival pallor. Normocephalic, atraumatic. No pharyngeal erythema. No thyromegaly. CARDIOVASCULAR: S1 and S2 present. No murmurs, rubs, or gallops. JVD improved PULMONARY: Chest is clear to auscultation, no wheezing or crackles. ABDOMEN: Mildly distended tympanic sluggish bowel sounds no organomegaly no significant tenderness MUSCULOSKELETAL: No joint swelling or deformity. EXTREMITIES: No cyanosis, clubbing, or pedal edema improved NEUROLOGICAL: Gross neurological examination did not reveal any focal deficits. SKIN: No rashes. - Labs CBC & Chem 7: 01/20/19 05:47 01/21/19 05:58 Labs: Abnormal Lab Results - Last 24 Hours (Table) 01/20/19 01/20/19 01/21/19 Range/Units 16:55 21:07 05:58 Sodium 136 L (137-145) mmol/L BUN 57 H (9-20) mg/dL Creatinine 2.64 H (0.66-1.25) mg/dL Glucose 120 H (74-99) mg/dL POC Glucose (mg/dL) 130 H 209 H (75-99) mg/dL Calcium 7.9 L (8.4-10.2) mg/dL 01/21/19 01/21/19 Range/Units 06:24 11:49 Sodium (137-145) mmol/L BUN (9-20) mg/dL Creatinine (0.66-1.25) mg/dL Glucose (74-99) mg/dL POC Glucose (mg/dL) 146 H 188 H (75-99) mg/dL Calcium (8.4-10.2) mg/dL Assessment and Plan Plan: Chest pain with elevated troponins, possibly of non-ST elevation microinfarction: Patient is seated IV heparin for 2 days sepsis subsequently now discontinued. -Congestive heart failure chronic diastolic dysfunction with acute exacerbation patient will be continued on Lasix with a lower dose since his kidney function has worsened -Nausea vomiting with abdominal distention: Probably related to acute myocardial infarction. Ultrasound essentially within normal limits -Carotid disease with previous stents in the past -Type 2 diabetes mellitus -Urinary retention patient has a Garcia catheter urine intervention can be r elated to constipation -Increasing creatinine acute renal failure secondary to prerenal azotemia and congestive heart failure but worsening renal function is due to excessive diuresis on aggressive diuresis cutting down on the diuretic therapy as mentioned above -chronic kidney disease stage III secondary to diabetic nephropathy
--- NOTE | 2019-01-21 15:52 | PN ---
PROGRESS NOTE Patient is seen for followup for acute kidney injury. He is currently being diuresed. Patient states he is feeling better. On examination, blood pressure this morning was 134/66, heart rate 78 per minute. Patient is afebrile. EXAMINATION OF THE HEART: S1 and S2. EXAMINATION OF LUNGS: Bilateral breath sounds are heard. ABDOMEN: Soft, non-tender. Examination of lower extremities shows edema 1+ bilaterally. [employer] exam is grossly intact. Labs show sodium 136, potassium 4.0, chloride 102, BUN 57, serum creatinine 2.64, magnesium 2.0. ASSESSMENT: 1. Acute kidney injury, cardiorenal. Patient has been diuresed, Lasix decreased to once a day. Weight is, however, up from yesterday; 24-hour urine output at 2100 mL. There are no nephrotoxic agents on board. Patient is not hypotensive. I will repeat labs in a.m. and we will switch to p.o. diuretics in a.m. No plans for cardiac catheterization at this time, particularly given the worsening of renal function. 2. Diastolic congestive heart failure. PLAN: Switch to p.o. Lasix. Repeat labs in a.m. Avoid hypotension. MMODL / IJN: [id number] /
[2019-01-21 16:55] LABS: Glucose,Whole Blood 160 mg/dL (75-99)
[2019-01-21] MEDS: PANTOPRAZOLE 40 MG TABLET PO SCH (17:42)
[2019-01-21 20:28] LABS: Glucose,Whole Blood 122 mg/dL (75-99)
[2019-01-21] MEDS: LURASIDONE 20 MG TAB PO SCH (21:34)
[2019-01-21] MEDS: ATORVASTATIN 80 MG TAB PO SCH (21:34)
[2019-01-21] MEDS: CLOPIDOGREL 75 MG TAB PO SCH (21:34)
[2019-01-22 06:08] LABS: Glucose,Whole Blood 259 mg/dL (75-99)
[2019-01-22] MEDS: PANTOPRAZOLE 40 MG TABLET PO SCH ×2 (06:17→17:48)
[2019-01-22] MEDS: NITROGLYCERIN OINT 1 INCH/GM PACKET TOPICAL SCH ×4 (06:18→22:56)
[2019-01-22] MEDS: ONDANSETRON 4 MG/2 ML VIAL IVP SCH ×4 (06:19→22:55)
[2019-01-22] MEDS: INSULIN ASPART (NovoLOG) 100 UNIT/ML VIAL SQ SCH ×4 (06:19→21:03)
[2019-01-22 06:56] LABS: Calcium 8.1 mg/dL (8.4-10.2); Potassium 4.1 mmol/L (3.5-5.1)
[2019-01-22] MEDS: DOCUSATE 100 MG CAP PO SCH ×2 (08:40→20:42)
[2019-01-22] MEDS: GABAPENTIN 300 MG CAP PO SCH ×2 (08:40→20:42)
[2019-01-22] MEDS: ASPIRIN 81 MG PO SCH (08:40)
[2019-01-22] MEDS: amLODIPine 5 MG TAB PO SCH ×2 (08:40→20:42)
[2019-01-22] MEDS: LORATADINE 10 MG TAB PO SCH (08:40)
[2019-01-22] MEDS: LINAGLIPTIN 5 MG TABLET PO SCH (08:40)
[2019-01-22] MEDS: hydrALAZINE HCL 50 MG TAB PO SCH ×4 (08:40→20:42)
[2019-01-22] MEDS: METOPROLOL SUCCINATE (ER) 50 MG TAB.ER.24H PO SCH (08:40)
[2019-01-22] MEDS: CITALOPRAM HYDROBROMIDE 20 MG TAB PO SCH (08:40)
[2019-01-22] MEDS: TAMSULOSIN 0.4 MG CAP.ER.24H PO SCH ×2 (08:41→20:42)
[2019-01-22] MEDS: GLIMEPIRIDE 1 MG TAB PO SCH (08:41)
[2019-01-22 11:35] LABS: Glucose,Whole Blood 197 mg/dL (75-99)
--- NOTE | 2019-01-22 13:14 | P.PN ---
Subjective 53-year-old admitted with possible non-ST elevation myocardial infarction Patient chest pain was similar to the pain week when he had microinfarction the past. Patient appears to be volume overloaded with elevated JVD although doesn't have any significant crackles chest x-ray showing pulmonary edema because of that reason I'll start IV fluids patient was started on Lasix. Patient is still nauseous quite a bit patient was receiving Protonix able to take some oral diet today looks better than yesterday but does have leukocytosis I am obtaining an ultrasound of the abdomen to rule out any cholelithiasis although patient doesn't have any pain in the right upper quadrant. 01/20/2019 Patient respiratory status improved but his serum creatinine has worsened patient's Lasix was cut down to daily from twice a day. Patient had a CAT scan of the chest as there is a concern on the chest x-ray that may be a pneumothorax. There is no pneumothorax evident on the CAT scan of the chest but patient does have diffuse pulmonary edema. Patient nausea improved. 01/21/2019 She looks better today but had a his creatinine went up a bit patient remains on 6 once a day continue to monitor kidney function possibly of cardiac catheterization on Thursday01/22/2019 Overall patient has significant improvement patient's creatinine continued to improve patient probably will undergo cardiac catheterization on Thursday Constitutional: Denied any fatigue denied any fever. Cardio vascular: denied any chest pain, palpitations Gastrointestinal nausea resolved Pulmonary: Shortness of breath significantly improved Neurologic denied any new focal deficits All inpatient medications were reviewed and appropriate changes in these medications as dictated in the interval history and assessment and plan. Objective - Vital Signs Vital signs: Vital Signs Temp 97.9 F 01/22/19 08:40 Pulse 71 01/22/19 12:00 Resp 20 01/22/19 12:00 BP 142/65 01/22/19 12:00 Pulse Ox 99 01/22/19 12:00 Intake & Output 01/21/19 01/22/19 01/22/19 18:59 06:59 18:59 Intake Total 720 320 118 Output Total 900 1250 Balance -180 -930 118 Weight 89.2 kg Intake: IV 320 0.9 320 Oral 720 118 Output: Urine 900 1250 Other: Voiding Method Indwelling Catheter Indwelling Catheter Indwelling Catheter # Voids 0 3 - Exam PHYSICAL EXAMINATION: GENERAL: The patient is alert and oriented x3, not in any acute distress. Well developed, well nourished. HEENT: Pupils are round and equally reacting to light. EOMI. No scleral icterus. No conjunctival pallor. Normocephalic, atraumatic. No pharyngeal erythema. No thyromegaly. CARDIOVASCULAR: S1 and S2 present. No murmurs, rubs, or gallops. JVD improved PULMONARY: Chest is clear to auscultation, no wheezing or crackles. ABDOMEN: Mildly distended tympanic sluggish bowel sounds no organomegaly no significant tenderness MUSCULOSKELETAL: No joint swelling or deformity. EXTREMITIES: No cyanosis, clubbing, or pedal edema improved NEUROLOGICAL: Gross neurological examination did not reveal any focal deficits. SKIN: No rashes. - Labs CBC & Chem 7: 01/20/19 05:47 01/22/19 05:30 Labs: Abnormal Lab Results - Last 24 Hours (Table) 01/21/19 01/21/19 01/22/19 Range/Units 16:44 20:23 05:30 BUN 51 H (9-20) mg/dL Creatinine 2.23 H (0.66-1.25) mg/dL Glucose 244 H (74-99) mg/dL POC Glucose (mg/dL) 160 H 122 H (75-99) mg/dL Calcium 8.1 L (8.4-10.2) mg/dL 01/22/19 01/22/19 Range/Units 06:06 11:33 BUN (9-20) mg/dL Creatinine (0.66-1.25) mg/dL Glucose (74-99) mg/dL POC Glucose (mg/dL) 259 H 197 H (75-99) mg/dL Calcium (8.4-10.2) mg/dL Assessment and Plan Plan: Chest pain with elevated troponins, possibly of non-ST elevation microinfarction: Patient is seated IV heparin for 2 days sepsis subsequently now discontinued. -Congestive heart failure chronic diastolic dysfunction with acute exacerbation patient will be continued on Lasix with a lower dose since his kidney function has worsened -Nausea vomiting with abdominal distention: Probably related to acute myocardial infarction. Ultrasound essentially within normal limits -Carotid disease with previous stents in the past -Type 2 diabetes mellitus -Urinary retention patient has a Garcia catheter urine intervention can be related to constipation -Increasing creatinine acute renal failure secondary to prerenal azotemia and congestive heart failure but worsening renal function is due to excessive diuresis on aggressive diuresis cutting down on the diuretic therapy as mentioned above, patient's creatinine improved compared to yesterday -chronic kidney disease stage III secondary to diabetic nephropathy
--- NOTE | 2019-01-22 14:09 | P.PN ---
Subjective Progress Note Date: 01/22/19 This is a pleasant 53-year-old gentleman who follows regularly with Dr. VC Church in the office. He has a known history of diabetes, chronic kidney disease, hypertension, hyperlipidemia, he also has history of TIA in the past, rheumatoid arthritis, family history of premature coronary artery disease, he himself has coronary artery disease and in October of last year underwent angioplasty and stenting of the chronically occluded mid and proximal circumflex artery. He presents to the hospital on this occasion with symptoms of chest discomfort, shortness of breath and bilateral lower extremity swelling. According to the patient, he's been experiencing discomfort in his chest which she describes as a tightness that comes and goes. He states it does remind him of what he had prior to his stent placement. Patient also has been much more short of breath than usual, and is experiencing symptoms of nausea. He does have bilateral lower extremity edema which according to the is about the same as his usual. Chest x-ray did not reveal any active cardiopulmonary disease. EKG shows a normal sinus rhythm with no acute changes noted. KUB was performed which was negative. Blood pressure 186/99, heart rate 106, 95% on room air. White blood cell count 6.1, hemoglobin 7.9, platelet count 146. D- dimer 0.9, sodium 141, potassium 4.3, BUN 29 and creatinine 1.7. Troponins 0.012, 0.20, 0.28. BNP level 1510. At the time of my examination, patient has just been brought up to the cardiac unit, he spent most of his time in the emergency room. He is quite nauseated and weak, feels short of breath, currently chest pain-free. 01/19/2019 Patient was seen and examined this morning, he does state that he's feeling somewhat better today, still appears to be quite weak. Complaining of feeling short of breath, sitting up in the chair at bedside today. Denies any further chest tightness. Blood pressure 164/90 with a heart rate in the 80s, 92% on 2 L of oxygen. White blood cell count today is up to 19,000, hemoglobin 9.3, platelet count 241. Sodium 143, potassium 5.3, BUN 36 and creatinine 2.01. Magnesium 1.9. 01/20/2019 Patient seen and examined this morning, nausea is improving. Creatinine today is 2.4. He did have one episode of chest discomfort earlier this morning, and EKG was performed which did not reveal any new changes. Blood pressure 126/70 with a heart rate in the 70s, 97% on 2 L of oxygen. White blood cell count 13, hemoglobin 7.1 today, platelet count 149. Sodium 138, potassium 4.1, BUN 50 and creatinine 2.4, magnesium 2.0. 8/3: The patient denies having any chest pain or shortness of breath and in general he states he is feeling better. Creatinine today is at 2.23 which is slightly improved from yesterday. Patient is tentatively scheduled for heart catheterization on Thursday with Dr. VC Church if he is cleared by nephrology. Blood pressure 142/65, heart rate 71, pulse ox 99% on 2 L nasal cannula, patient is been afebrile. Gen: This is a 53-year-old obese male. He is sitting up in a recliner to be comfortable and in no acute distress. HEENT: Head is atraumatic, normocephalic. Pupils equal, round. Sclerae is anicteric. NECK: Supple. No JVD. No lymphadenopathy. No thyromegaly. LUNGS: Mild coarse crackles to bilateral bases.. No intercostal retractions. HEART: Regular rate and rhythm. Systolic murmur. ABDOMEN: Soft. Bowel sounds are present. No masses. No tenderness. EXTREMITIES: 1+ pedal edema. No calf tenderness. NEUROLOGICAL: Patient is awake, alert and oriented x3. Cranial nerves 2 through 12 are grossly intact. Assessment: Chest pain secondary to acute coronary syndrome Accelerated hypertension Acute on chronic diastolic heart failure Recent CVA Diabetes mellitus Hyperlipidemia Rheumatoid arthritis, history of coronary artery disease with prior PCI and PTCA and stenting of a dominant mid and proximal circumflex artery in 2018 Anemia Acute kidney injury and Chronic kidney disease stage III Plan: Continue Lasix changed to oral at 40 mg twice daily Continue amlodipine 5 mg twice daily, clonidine patch at 0.2 mg, hydralazine 50 mg 4 times daily, Toprol-XL 50 g daily, Nitropaste Patient is tentatively scheduled for heart catheterization on Thursday with Dr. VC Church Further recommendations to follow based upon clinical course. Nurse practitioner note has been reviewed, I agree with documented findings and plan of care. Patient was seen and examined. Objective - Vital Signs Vital signs: Vital Signs Temp 97.9 F 01/22/19 08:40 Pulse 71 01/22/19 12:00 Resp 20 01/22/19 12:00 BP 142/65 01/22/19 12:00 Pulse Ox 99 01/22/19 12:00 Intake & Output 01/21/19 01/22/19 01/22/19 18:59 06:59 18:59 Intake Total 720 320 118 Output Total 900 1250 Balance -180 -930 118 Weight 89.2 kg Intake: IV 320 0.9 320 Oral 720 118 Output: Urine 900 1250 Other: Voiding Method Indwelling Catheter Indwelling Catheter Indwelling Catheter # Voids 0 3 - Labs CBC & Chem 7: 01/20/19 05:47 01/22/19 05:30 Labs: Abnormal Lab Results - Last 24 Hours (Table) 01/21/19 01/21/19 01/22/19 Range/Units 16:44 20:23 05:30 BUN 51 H (9-20) mg/dL Creatinine 2.23 H (0.66-1.25) mg/dL Glucose 244 H (74-99) mg/dL POC Glucose (mg/dL) 160 H 122 H (75-99) mg/dL Calcium 8.1 L (8.4-10.2) mg/dL 01/22/19 01/22/19 Range/Units 06:06 11:33 BUN (9-20) mg/dL Creatinine (0.66-1.25) mg/dL Glucose (74-99) mg/dL POC Glucose (mg/dL) 259 H 197 H (75-99) mg/dL Calcium (8.4-10.2) mg/dL
[2019-01-22] MEDS ORDERED: ACETAMINOPHEN TAB 325 MG TAB PO PRN (15:55)
--- NOTE | 2019-01-22 15:55 | PN ---
PROGRESS NOTE Patient is seen for followup for acute kidney injury on top of chronic kidney disease. The patient was recently being diuresed. His creatinine had peaked to 2.6. He was maintained on IV Lasix daily and this was held yesterday. Serum creatinine is down to 2.23 today. Overall, patient continues to have edema. He denies any chest pains. No significant shortness of breath. Weight is about the same as yesterday. 24 hour urine output of about 2.1 L. PHYSICAL EXAMINATION: This morning blood pressure was 122/63, heart rate 64 per minute. Patient is afebrile. Examination of the heart S1, S2. Examination of the lungs, decreased breath sounds bases. Abdomen is soft, nontender, obese. Examination lower extremities shows edema 1+ bilaterally. [employer]ER exam is grossly intact. LABS: Shows sodium 138, potassium 4.1, BUN 51, serum creatinine 2.23. ASSESSMENT: 1. Acute kidney injury mainly cardiorenal, status post diuresis. However, patient remains volume overloaded. I will switch him to oral diuretics. Possible cardiac catheterization on Thursday as renal function is slightly better. 2. Chronic kidney disease stage 3 secondary to diabetic kidney disease with baseline creatinine about 1.6-2 mg/dL. 3. Chest pain, being considered for cardiac catheterization on Thursday if renal function continues to improve. 4. Coronary artery disease with history of 4 coronary stents. 5. Urinary retention status post Garcia catheter. 6. Diastolic heart failure with moderate mitral regurgitation. 7. Anemia of chronic disease with iron deficiency, maintained on IV iron. PLAN: Start oral diuretics. Repeat labs in a.m. Continue to avoid nephrotoxic agents. MMODL / IJN: [id number] /
[2019-01-22 17:14] LABS: Glucose,Whole Blood 286 mg/dL (75-99)
[2019-01-22] MEDS: FUROSEMIDE 40 MG TAB PO SCH (17:48)
[2019-01-22 19:21] LABS: Amorphous Sediment,Urine Rare /hpf; Appearance,Urine Clear (Clear); Bilirubin,Urine Negative (Negative); Blood,Urine Small (Negative); Color,Urine Yellow; Glucose,Urine (UA) 2+ (Negative); Ketones,Urine Negative (Negative); Leukocyte Esterase,Urine Trace (Negative); Mucus,Urine Rare /hpf; Nitrite,Urine Negative (Negative); PH, Urine 5.5 (5.0-8.0); Protein,Urine 2+ (Negative); RBC,Urine 17 /hpf (0-5); Specific Gravity,Urine 1.016 (1.001-1.035); Urobilinogen,Urine <2.0 mg/dL (<2.0); WBC,Urine 5 /hpf (0-5)
[2019-01-22] MEDS: LURASIDONE 20 MG TAB PO SCH (20:42)
[2019-01-22] MEDS: ATORVASTATIN 80 MG TAB PO SCH (20:42)
[2019-01-22] MEDS: CLOPIDOGREL 75 MG TAB PO SCH (20:42)
[2019-01-22 21:12] LABS: Glucose,Whole Blood 168 mg/dL (75-99)
[2019-01-23 06:18] LABS: Glucose,Whole Blood 251 mg/dL (75-99)
[2019-01-23] MEDS: INSULIN ASPART (NovoLOG) 100 UNIT/ML VIAL SQ SCH ×4 (06:39→21:07)
[2019-01-23] MEDS: PANTOPRAZOLE 40 MG TABLET PO SCH ×2 (06:39→16:49)
[2019-01-23] MEDS: ONDANSETRON 4 MG/2 ML VIAL IVP SCH ×4 (06:40→23:07)
[2019-01-23] MEDS: NITROGLYCERIN OINT 1 INCH/GM PACKET TOPICAL SCH ×4 (06:40→23:05)
[2019-01-23 06:54] LABS: Calcium 7.9 mg/dL (8.4-10.2); Potassium 4.1 mmol/L (3.5-5.1)
[2019-01-23] MEDS: CITALOPRAM HYDROBROMIDE 20 MG TAB PO SCH (07:59)
[2019-01-23] MEDS: GABAPENTIN 300 MG CAP PO SCH ×2 (07:59→21:07)
[2019-01-23] MEDS: hydrALAZINE HCL 50 MG TAB PO SCH ×4 (07:59→21:07)
[2019-01-23] MEDS: DOCUSATE 100 MG CAP PO SCH ×2 (07:59→21:07)
[2019-01-23] MEDS: LINAGLIPTIN 5 MG TABLET PO SCH (08:00)
[2019-01-23] MEDS: TAMSULOSIN 0.4 MG CAP.ER.24H PO SCH ×2 (08:00→21:07)
[2019-01-23] MEDS: FUROSEMIDE 40 MG TAB PO SCH ×2 (08:00→16:49)
[2019-01-23] MEDS: ASPIRIN 81 MG PO SCH (08:00)
[2019-01-23] MEDS: amLODIPine 5 MG TAB PO SCH ×2 (08:00→21:06)
[2019-01-23] MEDS: LORATADINE 10 MG TAB PO SCH (08:00)
[2019-01-23] MEDS: GLIMEPIRIDE 1 MG TAB PO SCH (08:00)
[2019-01-23] MEDS: METOPROLOL SUCCINATE (ER) 50 MG TAB.ER.24H PO SCH (08:00)
[2019-01-23 11:40] LABS: Glucose,Whole Blood 196 mg/dL (75-99)
--- NOTE | 2019-01-23 11:50 | PN ---
PROGRESS NOTE HISTORY: Patient is seen for followup for acute kidney injury, which is mainly cardiorenal. The patient also has chronic kidney disease stage 3 with baseline creatinine about 1.6 mg/dL recently, 1.6 to -1.7. There are plans for possible cardiac catheterization tomorrow. At this time renal function has been improving, therefore, as long as there is no further worsening of renal function, we can proceed with cardiac cath tomorrow. PHYSICAL EXAMINATION: This morning, blood pressure was 126/63, heart rate 66 per minute. Patient is afebrile. Examination of the heart S1, S2. Examination of the lungs, bilateral breath sounds are heard. Abdomen is soft, nontender, obese. Examination of lower extremities shows edema 2+ bilaterally. 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 LABS: Sodium 140, potassium 4.1, BUN 41, serum creatinine 2.16. ASSESSMENT: 1. Acute kidney injury, cardiorenal, slowly improving. Continue with oral Lasix for now. 2. Volume overload/CHF, slowly improved. 3. Chronic kidney disease stage 3 secondary to diabetic kidney disease. Baseline creatinine 1.6 to 2 mg/dL. 4. Urinary retention, currently with indwelling Garcia catheter. PLAN: Continue with oral Lasix. Repeat labs in a.m. As long as the renal function is better tomorrow, we can proceed with cardiac cath in a.m. ELIZABETH / SHAHRIARN: [id number] /
--- NOTE | 2019-01-23 12:49 | P.PN ---
Subjective 53-year-old admitted with possible non-ST elevation myocardial infarction Patient chest pain was similar to the pain week when he had microinfarction the past. Patient appears to be volume overloaded with elevated JVD although doesn't have any significant crackles chest x-ray showing pulmonary edema because of that reason I'll start IV fluids patient was started on Lasix. Patient is still nauseous quite a bit patient was receiving Protonix able to take some oral diet today looks better than yesterday but does have leukocytosis I am obtaining an ultrasound of the abdomen to rule out any cholelithiasis although patient doesn't have any pain in the right upper quadrant. 01/20/2019 Patient respiratory status improved but his serum creatinine has worsened patient's Lasix was cut down to daily from twice a day. Patient had a CAT scan of the chest as there is a concern on the chest x-ray that may be a pneumothorax. There is no pneumothorax evident on the CAT scan of the chest but patient does have diffuse pulmonary edema. Patient nausea improved. 01/21/2019 She looks better today but had a his creatinine went up a bit patient remains on 6 once a day continue to monitor kidney function possibly of cardiac catheterization on Thursday01/22/2019 Overall patient has significant improvement patient's creatinine continued to improve patient probably will undergo cardiac catheterization on Thursday01/23/2019 Patient's creatinine continued to improve patient probably will undergo cardiac catheterization tomorrow Constitutional: Denied any fatigue denied any fever. Cardio vascular: denied any chest pain, palpitations Gastrointestinal nausea resolved Pulmonary: Shortness of breath significantly improved Neurologic denied any new focal deficits All inpatient medications were reviewed and appropriate changes in these medications as dictated in the interval history and assessment and plan. Objective - Vital Signs Vital signs: Vital Signs Temp 98.3 F 01/23/19 08:00 Pulse 77 01/23/19 08:00 Resp 20 01/23/19 08:00 BP 178/77 01/23/19 08:00 Pulse Ox 98 01/23/19 08:00 Intake & Output 01/22/19 01/23/19 01/23/19 18:59 06:59 18:59 Intake Total 340 444 238 Output Total 1250 675 Balance 340 -806 -437 Weight 89.4 kg Intake: Oral 340 444 238 Output: Urine 1250 675 Uretheral (Garcia) 675 Other: Voiding Method Indwelling Catheter Indwelling Catheter Indwelling Catheter # Voids 1 - Exam PHYSICAL EXAMINATION: GENERAL: The patient is alert and oriented x3, not in any acute distress. Well developed, well nourished. HEENT: Pupils are round and equally reacting to light. EOMI. No scleral icterus. No conjunctival pallor. Normocephalic, atraumatic. No pharyngeal erythema. No thyromegaly. CARDIOVASCULAR: S1 and S2 present. No murmurs, rubs, or gallops. JVD improved PULMONARY: Chest is clear to auscultation, no wheezing or crackles. ABDOMEN: Mildly distended tympanic sluggish bowel sounds no organomegaly no significant tenderness MUSCULOSKELETAL: No joint swelling or deformity. EXTREMITIES: No cyanosis, clubbing, or pedal edema improved NEUROLOGICAL: Gross neurological examination did not reveal any focal deficits. SKIN: No rashes. - Labs CBC & Chem 7: 01/20/19 05:47 01/23/19 06:14 Labs: Abnormal Lab Results - Last 24 Hours (Table) 01/22/19 01/22/19 01/22/19 Range/Units 16:00 17:12 21:00 BUN (9-20) mg/dL Creatinine (0.66-1.25) mg/dL Glucose (74-99) mg/dL POC Glucose (mg/dL) 286 H 168 H (75-99) mg/dL Calcium (8.4-10.2) mg/dL Urine Protein 2+ H (Negative) Urine Glucose (UA) 2+ H (Negative) Urine Blood Small H (Negative) Ur Leukocyte Esterase Trace H (Negative) Urine RBC 17 H (0-5) /hpf Amorphous Sediment Rare H (None) /hpf Urine Mucus Rare H (None) /hpf 01/23/19 01/23/19 01/23/19 Range/Units 06:14 06:16 11:39 BUN 41 H (9-20) mg/dL Creatinine 2.16 H (0.66-1.25) mg/dL Glucose 223 H (74-99) mg/dL POC Glucose (mg/dL) 251 H 196 H (75-99) mg/dL Calcium 7.9 L (8.4-10.2) mg/dL Urine Protein (Negative) Urine Glucose (UA) (Negative) Urine Blood (Negative) Ur Leukocyte Esterase (Negative) Urine RBC (0-5) /hpf Amorphous Sediment (None) /hpf Urine Mucus (None) /hpf Microbiology - Last 24 Hours (Table) 01/22/19 16:00 Urine Culture - Preliminary Urine,Catheterized Assessment and Plan Plan: Chest pain with elevated troponins, possibly of non-ST elevation microinfarction: Patient is seated IV heparin for 2 days sepsis subsequently now discontinued. -Congestive heart failure chronic diastolic dysfunction with acute exacerbation patient will be continued on Lasix with a lower dose since his kidney function has worsened -Nausea vomiting with abdominal distention: Probably related to acute myocardial infarction. Ultrasound essentially within normal limits -Carotid disease with previous stents in the past -Type 2 diabetes mellitus -Urinary retention patient has a Garcia catheter urine intervention can be related to constipation -Increasing creatinine acute renal failure secondary to prerenal azotemia and congestive heart failure but worsening renal function is due to excessive diuresis on aggressive diuresis cutting down on the diuretic therapy as mentioned above, patient's creatinine improved compared to yesterday -chronic kidney disease stage III secondary to diabetic nephropathy
--- NOTE | 2019-01-23 14:04 | P.PN ---
Subjective Progress Note Date: 01/23/19 This is a pleasant 53-year-old gentleman who follows regularly with Dr. VC Church in the office. He has a known history of diabetes, chronic kidney disease, hypertension, hyperlipidemia, he also has history of TIA in the past, rheumatoid arthritis, family history of premature coronary artery disease, he himself has coronary artery disease and in October of last year underwent angioplasty and stenting of the chronically occluded mid and proximal circumflex artery. He presents to the hospital on this occasion with symptoms of chest discomfort, shortness of breath and bilateral lower extremity swelling. According to the patient, he's been experiencing discomfort in his chest which she describes as a tightness that comes and goes. He states it does remind him of what he had prior to his stent placement. Patient also has been much more short of breath than usual, and is experiencing symptoms of nausea. He does have bilateral lower extremity edema which according to the is about the same as his usual. Chest x-ray did not reveal any active cardiopulmonary disease. EKG shows a normal sinus rhythm with no acute changes noted. KUB was performed which was negative. Blood pressure 186/99, heart rate 106, 95% on room air. White blood cell count 6.1, hemoglobin 7.9, platelet count 146. D- dimer 0.9, sodium 141, potassium 4.3, BUN 29 and creatinine 1.7. Troponins 0.012, 0.20, 0.28. BNP level 1510. At the time of my examination, patient has just been brought up to the cardiac unit, he spent most of his time in the emergency room. He is quite nauseated and weak, feels short of breath, currently chest pain-free. 01/19/2019 Patient was seen and examined this morning, he does state that he's feeling somewhat better today, still appears to be quite weak. Complaining of feeling short of breath, sitting up in the chair at bedside today. Denies any further chest tightness. Blood pressure 164/90 with a heart rate in the 80s, 92% on 2 L of oxygen. White blood cell count today is up to 19,000, hemoglobin 9.3, platelet count 241. Sodium 143, potassium 5.3, BUN 36 and creatinine 2.01. Magnesium 1.9. 01/20/2019 Patient seen and examined this morning, nausea is improving. Creatinine today is 2.4. He did have one episode of chest discomfort earlier this morning, and EKG was performed which did not reveal any new changes. Blood pressure 126/70 with a heart rate in the 70s, 97% on 2 L of oxygen. White blood cell count 13, hemoglobin 7.1 today, platelet count 149. Sodium 138, potassium 4.1, BUN 50 and creatinine 2.4, magnesium 2.0. 01/22: The patient denies having any chest pain or shortness of breath and in general he states he is feeling better. Creatinine today is at 2.23 which is slightly improved from yesterday. Patient is tentatively scheduled for heart catheterization on Thursday with Dr. VC Church if he is cleared by nephrology. Blood pressure 142/65, heart rate 71, pulse ox 99% on 2 L nasal cannula, patient is been afebrile. 01/23: Patient is a little sitting in his recliner appears to be comfortable. No chest pain or shortness of breath. Dr. Gomez has cleared him for heart catheterization tomorrow as long as renal function remains improved and does not worsen. BUN today of 41 creatinine 2.16 and repeat lab work ordered for the [facility]. Patient is continued on oral Lasix Afebrile, blood pressure 178/77, heart rate 77, pulse ox 98% on 2 L nasal cannula. Gen: This is a 53-year-old obese male. He is sitting up in a recliner to be comfortable and in no acute distress. HEENT: Head is atraumatic, normocephalic. Pupils equal, round. Sclerae is anicteric. NECK: Supple. No JVD. No lymphadenopathy. No thyromegaly. LUNGS: Mild coarse crackles to bilateral bases.. No intercostal retractions. HEART: Regular rate and rhythm. Systolic murmur. ABDOMEN: Soft. Bowel sounds are present. No masses. No tenderness. EXTREMITIES: 1+ bilateral pedal edema. No calf tenderness. NEUROLOGICAL: Patient is awake, alert and oriented x3. Cranial nerves 2 through 12 are grossly intact. Assessment: Chest pain secondary to possible non-ST elevated myocardial infarction Accelerated hypertension Acute on chronic diastolic heart failure Recent CVA Diabetes mellitus Hyperlipidemia Rheumatoid arthritis History of coronary artery disease with prior PCI and PTCA and stenting of a dominant mid and proximal circumflex artery in 2018 Anemia Acute kidney injury and Chronic kidney disease stage III Plan: Continue Lasix 40 mg twice daily Continue amlodipine 5 mg twice daily, clonidine patch at 0.2 mg, hydralazine 50 mg 4 times daily, Toprol-XL 50 g daily, Nitropaste Patient is scheduled for heart catheterization on Thursday with Dr. VC Church, nothing by mouth after midnight Further recommendations to follow based upon clinical course. Nurse practitioner note has been reviewed, I agree with documented findings and plan of care. Patient was seen and examined. Objective - Vital Signs Vital signs: Vital Signs Temp 98.3 F 01/23/19 08:00 Pulse 77 01/23/19 08:00 Resp 20 01/23/19 08:00 BP 178/77 01/23/19 08:00 Pulse Ox 98 01/23/19 08:00 Intake & Output 01/22/19 01/23/19 01/23/19 18:59 06:59 18:59 Intake Total 340 444 476 Output Total 1250 1475 Balance 340 -806 -999 Weight 89.4 kg Intake: Oral 340 444 476 Output: Urine 1250 1475 Uretheral (Garcia) 675 Other: Voiding Method Indwelling Catheter Indwelling Catheter Indwelling Catheter # Voids 1 - Labs CBC & Chem 7: 01/20/19 05:47 01/23/19 06:14 Labs: Abnormal Lab Results - Last 24 Hours (Table) 01/22/19 01/22/19 01/22/19 Range/Units 16:00 17:12 21:00 BUN (9-20) mg/dL Creatinine (0.66-1.25) mg/dL Glucose (74-99) mg/dL POC Glucose (mg/dL) 286 H 168 H (75-99) mg/dL Calcium (8.4-10.2) mg/dL Urine Protein 2+ H (Negative) Urine Glucose (UA) 2+ H (Negative) Urine Blood Small H (Negative) Ur Leukocyte Esterase Trace H (Negative) Urine RBC 17 H (0-5) /hpf Amorphous Sediment Rare H (None) /hpf Urine Mucus Rare H (None) /hpf 01/23/19 01/23/19 01/23/19 Range/Units 06:14 06:16 11:39 BUN 41 H (9-20) mg/dL Creatinine 2.16 H (0.66-1.25) mg/dL Glucose 223 H (74-99) mg/dL POC Glucose (mg/dL) 251 H 196 H (75-99) mg/dL Calcium 7.9 L (8.4-10.2) mg/dL Urine Protein (Negative) Urine Glucose (UA) (Negative) Urine Blood (Negative) Ur Leukocyte Esterase (Negative) Urine RBC (0-5) /hpf Amorphous Sediment (None) /hpf Urine Mucus (None) /hpf Microbiology - Last 24 Hours (Table) 01/22/19 16:00 Urine Culture - Preliminary Urine,Catheterized
[2019-01-23 16:33] LABS: Glucose,Whole Blood 217 mg/dL (75-99)
[2019-01-23 20:54] LABS: Glucose,Whole Blood 239 mg/dL (75-99)
[2019-01-23] MEDS: CLOPIDOGREL 75 MG TAB PO SCH (21:07)
[2019-01-23] MEDS: LURASIDONE 20 MG TAB PO SCH (21:07)
[2019-01-23] MEDS: ATORVASTATIN 80 MG TAB PO SCH (21:07)
[2019-01-24 06:32] LABS: Glucose,Whole Blood 212 mg/dL (75-99)
[2019-01-24] MEDS: PANTOPRAZOLE 40 MG TABLET PO SCH ×2 (06:46→17:38)
[2019-01-24] MEDS: INSULIN ASPART (NovoLOG) 100 UNIT/ML VIAL SQ SCH ×5 (06:47→21:18)
[2019-01-24] MEDS: NITROGLYCERIN OINT 1 INCH/GM PACKET TOPICAL SCH ×4 (06:48→23:06)
[2019-01-24] MEDS: ONDANSETRON 4 MG/2 ML VIAL IVP SCH ×4 (06:49→23:06)
[2019-01-24 07:07] LABS: Calcium 8.1 mg/dL (8.4-10.2); Potassium 4.1 mmol/L (3.5-5.1)
[2019-01-24] MEDS: ASPIRIN 81 MG PO SCH (09:01)
[2019-01-24] MEDS: FUROSEMIDE 40 MG TAB PO SCH ×2 (09:01→17:38)
[2019-01-24] MEDS: GLIMEPIRIDE 1 MG TAB PO SCH (09:01)
[2019-01-24] MEDS: LORATADINE 10 MG TAB PO SCH (09:01)
[2019-01-24] MEDS: DOCUSATE 100 MG CAP PO SCH ×2 (09:01→21:18)
[2019-01-24] MEDS: TAMSULOSIN 0.4 MG CAP.ER.24H PO SCH ×2 (09:01→21:19)
[2019-01-24] MEDS: GABAPENTIN 300 MG CAP PO SCH ×2 (09:01→21:18)
[2019-01-24] MEDS: METOPROLOL SUCCINATE (ER) 50 MG TAB.ER.24H PO SCH (09:01)
[2019-01-24] MEDS: LINAGLIPTIN 5 MG TABLET PO SCH (09:02)
[2019-01-24] MEDS: amLODIPine 5 MG TAB PO SCH ×2 (09:02→21:18)
[2019-01-24] MEDS: CITALOPRAM HYDROBROMIDE 20 MG TAB PO SCH (09:02)
[2019-01-24] MEDS: hydrALAZINE HCL 50 MG TAB PO SCH ×4 (09:04→21:19)
[2019-01-24] MEDS ORDERED: ATORVASTATIN 80 MG TAB PO STA (09:31)
[2019-01-24] MEDS ORDERED: NITROGLYCERIN SL TABS 0.4 MG TAB SUBLINGUAL PRN (09:31)
[2019-01-24] MEDS ORDERED: ALPRAZolam 0.25 MG TAB PO PRN (09:31)
[2019-01-24] MEDS ORDERED: ASPIRIN 325 MG TAB PO STA (09:31)
[2019-01-24] MEDS ORDERED: SODIUM CHLORIDE 0.9% 1,000 ML in EMPTY BAG 1 BAG IV ONE (09:31)
[2019-01-24] MEDS ORDERED: ALPRAZolam 0.5 MG TAB PO PRN (09:31)
--- NOTE | 2019-01-24 10:31 | P.PN ---
Subjective Patient seen in follow-up for acute kidney injury on chronic kidney disease. Patient has chronic kidney disease stage III with baseline creatinine in the range of 1.6-2 secondary to diabetic kidney disease. Renal function stable. Creatinine 2.02 today. Patient has a chronic Garcia catheter. He is nonoliguric. Currently on Lasix 40 mg po twice daily. He is tolerating oral intake. Scheduled for cardiac catheterization today. Vital signs are stable. General: The patient appeared well nourished and normally developed. HEENT: Head exam is unremarkable. Neck is without jugular venous distension. LUNGS: Lungs are clear to auscultation and percussion. Breath sounds decreased. HEART: Rate and Rhythm are regular. First and second heart sounds normal. No murmurs, rubs or gallops. ABDOMEN: Abdominal exam reveals normal bowel sounds. Non-tender and non- distended. No evidence of peritonitis. EXTREMITITES: 1+ edema. Objective - Vital Signs Vital signs: Vital Signs Temp 98.3 F 01/24/19 08:00 Pulse 80 01/24/19 08:00 Resp 18 01/24/19 08:00 BP 165/77 01/24/19 08:00 Pulse Ox 95 01/24/19 08:00 Intake & Output 01/23/19 01/24/19 01/24/19 18:59 06:59 18:59 Intake Total 476 160 Output Total 1850 1325 Balance -1374 -1165 Weight 89.4 kg Intake: IV 160 0.9 160 Oral 476 Output: Urine 1850 1325 Uretheral (Garcia) 1050 Other: Voiding Method Indwelling Catheter Indwelling Catheter - Labs CBC & Chem 7: 01/20/19 05:47 01/24/19 05:56 Labs: Abnormal Lab Results - Last 24 Hours (Table) 01/23/19 01/23/19 01/23/19 Range/Units 11:39 16:32 20:52 BUN (9-20) mg/dL Creatinine (0.66-1.25) mg/dL Glucose (74-99) mg/dL POC Glucose (mg/dL) 196 H 217 H 239 H (75-99) mg/dL Calcium (8.4-10.2) mg/dL 01/24/19 01/24/19 Range/Units 05:56 06:31 BUN 34 H (9-20) mg/dL Creatinine 2.02 H (0.66-1.25) mg/dL Glucose 185 H (74-99) mg/dL POC Glucose (mg/dL) 212 H (75-99) mg/dL Calcium 8.1 L (8.4-10.2) mg/dL Assessment and Plan Plan: Assessment: 1. Chronic kidney disease stage III secondary to diabetic kidney disease with baseline creatinine in the range of 1.6-2 recently. Ultrasound from last month revealed no evidence of hydronephrosis. GFR near baseline. 2. Chest pain. Rule out acute coronary syndrome. Cardiology following. Scheduled for cardiac catheterization today. 3. History of coronary artery disease status post 4 cardiac stents. 4. Urinary retention. Currently has a Garcia catheter in place. 5. Diabetes mellitus. 6. Diastolic CHF with moderate MR. 7. Hypertension with chronic kidney disease. Stable. 8. Anemia chronic kidney disease. Iron deficiency noted. Status post IV iron. Maintained on Aranesp. Plan: Hold tonight's dose of Lasix. Scheduled for cardiac catheterization today. I discussed with the patient the potential worsening of renal function from IV contrast. Patient understands. I will hydrate the patient with 3 mL per KG per hour of isotonic sodium bicarbonate to be given one hour prior to cardiac catheterization and to be continued at a rate of 1 mL per KG per hour for 6 hours post cardiac catheterization. Lasix can be resumed tomorrow. Avoid nephrotoxins. Continue to monitor renal function and urine output.
[2019-01-24] MEDS ORDERED: DEXTROSE 5% IN WATER 1,000 ML with SODIUM BICARB (1 MEQ/ML) 150 ML IV SCH (11:00)
[2019-01-24] MEDS ORDERED: DEXTROSE 5% IN WATER 1,000 ML with SODIUM BICARB (1 MEQ/ML) 150 ML IV ONE ×5 (11:00→13:00)
[2019-01-24 11:30] LABS: Basophils % (A) 1 %; Eosinophils # (A) 0.3 k/uL (0-0.7); Eosinophils % (A) 3 %; HCT 20.7 % (39.0-53.0); Lymphocytes % (A) 12 %; MCH 29.3 pg (25.0-35.0); MCHC 32.9 g/dL (31.0-37.0); MCV 89.2 fL (80.0-100.0); Mean Platelet Volume 7.6; Monocytes # (A) 0.5 k/uL (0-1.0); Monocytes % (A) 7 %; Neutrophils # (A) 5.9 k/uL (1.3-7.7); Neutrophils % (A) 76 %; Platelet Count 150 k/uL (150-450); RBC 2.32 m/uL (4.30-5.90); RDW 15.6 % (11.5-15.5); WBC 7.8 k/uL (3.8-10.6)
[2019-01-24 11:37] LABS: HGB 6.8 gm/dL (13.0-17.5)
[2019-01-24 11:41] LABS: Glucose,Whole Blood 204 mg/dL (75-99)
--- NOTE | 2019-01-24 11:50 | P.PN ---
Subjective 53-year-old admitted with possible non-ST elevation myocardial infarction Patient chest pain was similar to the pain week when he had microinfarction the past. Patient appears to be volume overloaded with elevated JVD although doesn't have any significant crackles chest x-ray showing pulmonary edema because of that reason I'll start IV fluids patient was started on Lasix. Patient is still nauseous quite a bit patient was receiving Protonix able to take some oral diet today looks better than yesterday but does have leukocytosis I am obtaining an ultrasound of the abdomen to rule out any cholelithiasis although patient doesn't have any pain in the right upper quadrant. 01/20/2019 Patient respiratory status improved but his serum creatinine has worsened patient's Lasix was cut down to daily from twice a day. Patient had a CAT scan of the chest as there is a concern on the chest x-ray that may be a pneumothorax. There is no pneumothorax evident on the CAT scan of the chest but patient does have diffuse pulmonary edema. Patient nausea improved. 01/21/2019 She looks better today but had a his creatinine went up a bit patient remains on 6 once a day continue to monitor kidney function possibly of cardiac catheterization on Thursday01/22/2019 Overall patient has significant improvement patient's creatinine continued to improve patient probably will undergo cardiac catheterization on Thursday01/23/2019 Patient's creatinine continued to improve patient probably will undergo cardiac catheterization tomorrow 01/24/2019 Patient's serum creatinine continue to improve patient will undergo cardiac catheterization today. Since hemoglobin is 6.9 today secondary to daily blood draws,, patient will be transfused 1 unit of PRBC Constitutional: Denied any fatigue denied any fever. Cardio vascular: denied any chest pain, palpitations Gastrointestinal nausea resolved Pulmonary: Shortness of breath significantly improved Neurologic denied any new focal deficits All inpatient medications were reviewed and appropriate changes in these medications as dictated in the interval history and assessment and plan. Objective - Vital Signs Vital signs: Vital Signs Temp 98.3 F 01/24/19 08:00 Pulse 74 01/24/19 11:17 Resp 16 01/24/19 11:17 BP 140/67 01/24/19 11:17 Pulse Ox 97 01/24/19 11:17 Intake & Output 01/23/19 01/24/19 01/24/19 18:59 06:59 18:59 Intake Total 476 160 Output Total 1850 1325 600 Balance -1371 -7899 -600 Weight 89.4 kg Intake: IV 160 0.9 160 Oral 476 Output: Urine 1850 1325 600 Uretheral (Garcia) 1050 Other: Voiding Method Indwelling Catheter Indwelling Catheter - Exam PHYSICAL EXAMINATION: GENERAL: The patient is alert and oriented x3, not in any acute distress. Well developed, well nourished. HEENT: Pupils are round and equally reacting to light. EOMI. No scleral icterus. No conjunctival pallor. Normocephalic, atraumatic. No pharyngeal erythema. No thyromegaly. CARDIOVASCULAR: S1 and S2 present. No murmurs, rubs, or gallops. JVD improved PULMONARY: Chest is clear to auscultation, no wheezing or crackles. ABDOMEN: Mildly distended tympanic sluggish bowel sounds no organomegaly no significant tenderness MUSCULOSKELETAL: No joint swelling or deformity. EXTREMITIES: No cyanosis, clubbing, or pedal edema improved NEUROLOGICAL: Gross neurological examination did not reveal any focal deficits. SKIN: No rashes. - Labs CBC & Chem 7: 01/24/19 05:56 01/24/19 05:56 Labs: Abnormal Lab Results - Last 24 Hours (Table) 01/23/19 01/23/19 01/24/19 Range/Units 16:32 20:52 05:56 RBC (4.30-5.90) m/uL Hgb (13.0-17.5) gm/dL Hct (39.0-53.0) % RDW (11.5-15.5) % BUN 34 H (9-20) mg/dL Creatinine 2.02 H (0.66-1.25) mg/dL Glucose 185 H (74-99) mg/dL POC Glucose (mg/dL) 217 H 239 H (75-99) mg/dL Calcium 8.1 L (8.4-10.2) mg/dL 01/24/19 01/24/19 01/24/19 Range/Units 05:56 06:31 11:39 RBC 2.32 L (4.30-5.90) m/uL Hgb 6.8 L* (13.0-17.5) gm/dL Hct 20.7 L (39.0-53.0) % RDW 15.6 H (11.5-15.5) % BUN (9-20) mg/dL Creatinine (0.66-1.25) mg/dL Glucose (74-99) mg/dL POC Glucose (mg/dL) 212 H 204 H (75-99) mg/dL Calcium (8.4-10.2) mg/dL Assessment and Plan Plan: Chest pain with elevated troponins, possibly of non-ST elevation myocardial infarction: Patient is seated IV heparin for 2 days sepsis subsequently now discontinued. -Anemia secondary to blood draws and acute patient does have chronic anemia probably iron deficiency -Congestive heart failure chronic diastolic dysfunction with acute exacerbation patient will be continued on Lasix with a lower dose since his kidney function has worsened -Nausea vomiting with abdominal distention: Probably related to acute myocardial infarction. Ultrasound essentially within normal limits -Carotid disease with previous stents in the past -Type 2 diabetes mellitus -Urinary retention patient has a Garcia catheter urine intervention can be related to constipation -Increasing creatinine acute renal failure secondary to prerenal azotemia and congestive heart failure but worsening renal function is due to excessive diuresis on aggressive diuresis cutting down on the diuretic therapy as mentioned above, patient's creatinine improved compared to yesterday -chronic kidney disease stage III secondary to diabetic nephropathy
--- NOTE | 2019-01-24 12:28 | P.PN ---
Subjective Progress Note Date: 01/24/19 This is a pleasant 53-year-old gentleman who follows regularly with Dr. VC Church in the office. He has a known history of diabetes, chronic kidney disease, hypertension, hyperlipidemia, he also has history of TIA in the past, rheumatoid arthritis, family history of premature coronary artery disease, he himself has coronary artery disease and in October of last year underwent angioplasty and stenting of the chronically occluded mid and proximal circumflex artery. He presents to the hospital on this occasion with symptoms of chest discomfort, shortness of breath and bilateral lower extremity swelling. According to the patient, he's been experiencing discomfort in his chest which she describes as a tightness that comes and goes. He states it does remind him of what he had prior to his stent placement. Patient also has been much more short of breath than usual, and is experiencing symptoms of nausea. He does have bilateral lower extremity edema which according to the is about the same as his usual. Chest x-ray did not reveal any active cardiopulmonary disease. EKG shows a normal sinus rhythm with no acute changes noted. KUB was performed which was negative. Blood pressure 186/99, heart rate 106, 95% on room air. White blood cell count 6.1, hemoglobin 7.9, platelet count 146. D- dimer 0.9, sodium 141, potassium 4.3, BUN 29 and creatinine 1.7. Troponins 0.012, 0.20, 0.28. BNP level 1510. At the time of my examination, patient has just been brought up to the cardiac unit, he spent most of his time in the emergency room. He is quite nauseated and weak, feels short of breath, currently chest pain-free. 01/19/2019 Patient was seen and examined this morning, he does state that he's feeling somewhat better today, still appears to be quite weak. Complaining of feeling short of breath, sitting up in the chair at bedside today. Denies any further chest tightness. Blood pressure 164/90 with a heart rate in the 80s, 92% on 2 L of oxygen. White blood cell count today is up to 19,000, hemoglobin 9.3, platelet count 241. Sodium 143, potassium 5.3, BUN 36 and creatinine 2.01. Magnesium 1.9. 01/20/2019 Patient seen and examined this morning, nausea is improving. Creatinine today is 2.4. He did have one episode of chest discomfort earlier this morning, and EKG was performed which did not reveal any new changes. Blood pressure 126/70 with a heart rate in the 70s, 97% on 2 L of oxygen. White blood cell count 13, hemoglobin 7.1 today, platelet count 149. Sodium 138, potassium 4.1, BUN 50 and creatinine 2.4, magnesium 2.0. 01/24/2019 Patient was seen and examined this morning, creatinine 2.02 today, cleared by nephrology to proceed with cardiac cath. Hemoglobin today is 6.8, patient will receive a blood transfusion. He will be scheduled tomorrow to undergo cardiac catheterization with Dr. VC Church. The risks and the benefits again were discussed with the patient and his in detail. Objective - Vital Signs Vital signs: Vital Signs Temp 98.3 F 01/24/19 08:00 Pulse 74 01/24/19 11:17 Resp 16 01/24/19 11:17 BP 140/67 01/24/19 11:17 Pulse Ox 97 01/24/19 11:17 Intake & Output 01/23/19 01/24/19 01/24/19 18:59 06:59 18:59 Intake Total 476 160 Output Total 1850 1325 600 Balance -1374 -1165 -600 Weight 89.4 kg Intake: IV 160 0.9 160 Oral 476 Output: Urine 1850 1325 600 Uretheral (Garcia) 1050 Other: Voiding Method Indwelling Catheter Indwelling Catheter - Exam PHYSICAL EXAMINATION: GENERAL: 53-year-old pale looking gentleman in no acute distress at the time of my examination HEENT: Head is atraumatic, normocephalic. Pupils equal, round. Sclera anicteric. Conjunctiva are clear. Mucous membranes of the mouth are moist. Neck is supple. There is elevated jugular venous pressure. No Carotid bruit is heard. HEART EXAMINATION: Heart S1, S2 normal. No murmur or gallop heard. CHEST EXAMINATION: Lungs reveal some coarse crackles with diminished air entry to the bases. ABDOMEN: Soft, nontender. Bowel sounds are heard. No organomegaly noted. EXTREMITIES: 2+ peripheral pulses with 2+ evidence of peripheral edema and no calf tenderness noted. NEUROLOGIC patient is awake, alert and oriented 3 . - Labs CBC & Chem 7: 01/24/19 05:56 01/24/19 05:56 Labs: Abnormal Lab Results - Last 24 Hours (Table) 01/23/19 01/23/19 01/24/19 Range/Units 16:32 20:52 05:56 RBC (4.30-5.90) m/uL Hgb (13.0-17.5) gm/dL Hct (39.0-53.0) % RDW (11.5-15.5) % BUN 34 H (9-20) mg/dL Creatinine 2.02 H (0.66-1.25) mg/dL Glucose 185 H (74-99) mg/dL POC Glucose (mg/dL) 217 H 239 H (75-99) mg/dL Calcium 8.1 L (8.4-10.2) mg/dL 01/24/19 01/24/19 01/24/19 Range/Units 05:56 06:31 11:39 RBC 2.32 L (4.30-5.90) m/uL Hgb 6.8 L* (13.0-17.5) gm/dL Hct 20.7 L (39.0-53.0) % RDW 15.6 H (11.5-15.5) % BUN (9-20) mg/dL Creatinine (0.66-1.25) mg/dL Glucose (74-99) mg/dL POC Glucose (mg/dL) 212 H 204 H (75-99) mg/dL Calcium (8.4-10.2) mg/dL Assessment and Plan Plan: Assessment and plan #1 accelerated hypertension #2 symptoms of chest tightness with mild abnormality in troponin, possible acute coronary syndrome. EKG shows normal sinus rhythm with no acute changes. #3 history of recent CVA #4 persistent nausea and vomiting with associated decreased appetite #5 diabetes #6 hyperlipidemia #7 rheumatoid arthritis #8 history of anxiety or depression #9 abnormal troponin, patient denies having any chest discomfort #10 coronary artery disease with prior PCI, patient underwent PTCA and stenting of a dominant mid and proximal circumflex artery in 2018 #11 anemia #12 congestive heart failure, diastolic acute on chronic Plan Because the patient is receiving a unit of packed red blood cells today, his cath will be deferred until tomorrow. He will receive sodium bicarb protocol and our preprocedure and 6 hours postprocedure then the patient will be hep- locked. Further recommendations to follow. DNP note has been reviewed, I agree with a documented findings and plan of care. Patient was seen and examined.
[2019-01-24] MEDS ORDERED: DEXTROSE 5% IN WATER 1,000 ML with SODIUM BICARB (1 MEQ/ML) 50 ML IV SCH (13:00)
[2019-01-24 17:11] LABS: Glucose,Whole Blood 347 mg/dL (75-99)
[2019-01-24 20:55] LABS: Glucose,Whole Blood 170 mg/dL (75-99)
[2019-01-24] MEDS: LURASIDONE 20 MG TAB PO SCH (21:18)
[2019-01-24] MEDS: CLOPIDOGREL 75 MG TAB PO SCH (21:18)
[2019-01-25 06:04] LABS: Glucose,Whole Blood 290 mg/dL (75-99)
[2019-01-25] MEDS: NITROGLYCERIN OINT 1 INCH/GM PACKET TOPICAL SCH ×2 (06:24→12:04)
[2019-01-25] MEDS: ONDANSETRON 4 MG/2 ML VIAL IVP SCH ×4 (06:25→23:57)
[2019-01-25] MEDS: INSULIN ASPART (NovoLOG) 100 UNIT/ML VIAL SQ SCH ×4 (06:26→20:42)
[2019-01-25] MEDS: PANTOPRAZOLE 40 MG TABLET PO SCH ×2 (06:26→17:25)
[2019-01-25 06:37] LABS: Basophils % (A) 0 %; Eosinophils # (A) 0.4 k/uL (0-0.7); Eosinophils % (A) 4 %; HCT 25.5 % (39.0-53.0); Lymphocytes # (A) 1.5 k/uL (1.0-4.8); Lymphocytes % (A) 18 %; MCH 28.9 pg (25.0-35.0); MCHC 33.2 g/dL (31.0-37.0); Mean Platelet Volume 6.7; Monocytes # (A) 0.6 k/uL (0-1.0); Monocytes % (A) 8 %; Neutrophils # (A) 5.3 k/uL (1.3-7.7); Neutrophils % (A) 67 %; Platelet Count 144 k/uL (150-450); RBC 2.93 m/uL (4.30-5.90); RDW 14.7 % (11.5-15.5)
[2019-01-25 06:39] LABS: HGB 8.5 gm/dL (13.0-17.5)
[2019-01-25 06:55] LABS: Calcium 8.1 mg/dL (8.4-10.2); Potassium 3.9 mmol/L (3.5-5.1)
[2019-01-25] MEDS: ASPIRIN 81 MG PO SCH (07:03)
[2019-01-25] MEDS ORDERED: ATORVASTATIN 80 MG TAB PO STA (07:03)
[2019-01-25] MEDS ORDERED: ASPIRIN 325 MG TAB PO STA (07:03)
[2019-01-25] MEDS: LINAGLIPTIN 5 MG TABLET PO SCH (07:04)
[2019-01-25] MEDS: GLIMEPIRIDE 1 MG TAB PO SCH (07:04)
[2019-01-25] MEDS: FUROSEMIDE 40 MG TAB PO SCH ×2 (08:49→14:31)
[2019-01-25] MEDS: CITALOPRAM HYDROBROMIDE 20 MG TAB PO SCH (08:49)
[2019-01-25] MEDS: LORATADINE 10 MG TAB PO SCH (08:49)
[2019-01-25] MEDS: GABAPENTIN 300 MG CAP PO SCH ×2 (08:49→20:42)
[2019-01-25] MEDS: METOPROLOL SUCCINATE (ER) 50 MG TAB.ER.24H PO SCH (08:50)
[2019-01-25] MEDS: amLODIPine 5 MG TAB PO SCH ×2 (08:50→20:42)
[2019-01-25] MEDS: TAMSULOSIN 0.4 MG CAP.ER.24H PO SCH ×2 (08:50→20:42)
[2019-01-25] MEDS: hydrALAZINE HCL 50 MG TAB PO SCH ×4 (08:50→20:42)
[2019-01-25] MEDS: DOCUSATE 100 MG CAP PO SCH ×2 (08:50→20:42)
--- NOTE | 2019-01-25 10:17 | P.PN ---
Subjective Patient seen in follow-up for acute kidney injury on chronic kidney disease. Patient has chronic kidney disease stage III with baseline creatinine in the range of 1.6-2 secondary to diabetic kidney disease. Renal function stable. Creatinine 1.97 today. Patient has a chronic Garcia catheter. He is nonoliguric. Currently on Lasix 40 mg po twice daily. He is tolerating oral intake. Scheduled for cardiac catheterization today. It was held yesterday due to elevated INR. Vital signs are stable. General: The patient appeared well nourished and normally developed. HEENT: Head exam is unremarkable. Neck is without jugular venous distension. LUNGS: Lungs are clear to auscultation and percussion. Breath sounds decreased. HEART: Rate and Rhythm are regular. First and second heart sounds normal. No murmurs, rubs or gallops. ABDOMEN: Abdominal exam reveals normal bowel sounds. Non-tender and non- distended. No evidence of peritonitis. EXTREMITITES: 1+ edema. Objective - Vital Signs Vital signs: Vital Signs Temp 98.3 F 01/25/19 07:35 Pulse 78 01/25/19 07:35 Resp 16 01/25/19 07:35 BP 173/82 01/25/19 07:35 Pulse Ox 99 01/25/19 07:35 Intake & Output 01/24/19 01/25/19 01/25/19 18:59 06:59 18:59 Intake Total 790 Output Total 1500 2775 Balance -710 -2775 Weight 88.7 kg Intake: Oral 480 Blood Product 310 Rc As-1 Unit 310 [id number] Output: Urine 1500 2775 Other: Voiding Method Indwelling Catheter Indwelling Catheter Indwelling Catheter - Labs CBC & Chem 7: 01/25/19 05:48 01/25/19 05:48 Labs: Abnormal Lab Results - Last 24 Hours (Table) 01/24/19 01/24/19 01/24/19 Range/Units 05:56 11:39 12:24 RBC 2.32 L (4.30-5.90) m/uL Hgb 6.8 L* (13.0-17.5) gm/dL Hct 20.7 L (39.0-53.0) % RDW 15.6 H (11.5-15.5) % Plt Count (150-450) k/uL BUN (9-20) mg/dL Creatinine (0.66-1.25) mg/dL Glucose (74-99) mg/dL POC Glucose (mg/dL) 204 H (75-99) mg/dL Calcium (8.4-10.2) mg/dL Crossmatch See Detail 01/24/19 01/24/19 01/25/19 Range/Units 16:59 20:53 05:48 RBC (4.30-5.90) m/uL Hgb (13.0-17.5) gm/dL Hct (39.0-53.0) % RDW (11.5-15.5) % Plt Count (150-450) k/uL BUN 28 H (9-20) mg/dL Creatinine 1.97 H (0.66-1.25) mg/dL Glucose 263 H (74-99) mg/dL POC Glucose (mg/dL) 347 H 170 H (75-99) mg/dL Calcium 8.1 L (8.4-10.2) mg/dL Crossmatch 01/25/19 01/25/19 Range/Units 05:48 06:03 RBC 2.93 L (4.30-5.90) m/uL Hgb 8.5 L D (13.0-17.5) gm/dL Hct 25.5 L (39.0-53.0) % RDW (11.5-15.5) % Plt Count 144 L (150-450) k/uL BUN (9-20) mg/dL Creatinine (0.66-1.25) mg/dL Glucose (74-99) mg/dL POC Glucose (mg/dL) 290 H (75-99) mg/dL Calcium (8.4-10.2) mg/dL Crossmatch Assessment and Plan Plan: Assessment: 1. Chronic kidney disease stage III secondary to diabetic kidney disease with baseline creatinine in the range of 1.6-2 recently. Ultrasound from last month revealed no evidence of hydronephrosis. GFR near baseline. 2. Chest pain. Rule out acute coronary syndrome. Cardiology following. Scheduled for cardiac catheterization today. 3. History of coronary artery disease status post 4 cardiac stents. 4. Urinary retention. Currently has a Garcia catheter in place. 5. Diabetes mellitus. 6. Diastolic CHF with moderate MR. 7. Hypertension with chronic kidney disease. Stable. 8. Anemia chronic kidney disease. Iron deficiency noted. Status post IV iron. Maintained on Aranesp. Plan: Hold tonight's dose of Lasix. Scheduled for cardiac catheterization today. I discussed with the patient the potential worsening of renal function from IV contrast. Patient understands. I will hydrate the patient with 3 mL per KG per hour of isotonic sodium bicarbonate to be given one hour prior to cardiac catheterization and to be continued at a rate of 1 mL per KG per hour for 6 hours post cardiac catheterization. Lasix can be resumed tomorrow. Avoid nephrotoxins. Continue to monitor renal function and urine output.
[2019-01-25 10:19] VITALS: BMI 28.8
[2019-01-25 11:55] LABS: Glucose,Whole Blood 116 mg/dL (75-99)
[2019-01-25] MEDS ORDERED: IV FLUID CONTINUATION 1,000 ML IV ONE ×2 (13:45)
[2019-01-25] MEDS ORDERED: methylPREDNISolone SOD SUCCI 125 MG/2 ML VIAL IVP ONE (13:53)
[2019-01-25] MEDS ORDERED: diphenhydrAMINE 50 MG/ML 1 ML VIAL IVP ONE (13:53)
[2019-01-25] MEDS ORDERED: fentaNYL (PF) 50 MCG/ML 2 ML AMP IVP ONE (13:55)
[2019-01-25] MEDS ORDERED: LIDOCAINE 1% INJ 10MG/ML (20 ML MDV) SQ ONE (13:57)
[2019-01-25] MEDS ORDERED: MIDAZOLAM (PF) 2 MG/2 ML VIAL IVP ONE (13:57)
[2019-01-25] MEDS ORDERED: NITROGLYCERIN 1000MCG/10ML SYRINGE INTRACORON ONE (14:06)
[2019-01-25] MEDS ORDERED: IOPAMIDOL-370 125ML BTL INJ ONE (14:12)
[2019-01-25] MEDS ORDERED: RX INFO: IV CONTRAST WAS GIVEN 1 EACH MISC MISCELLANE PRN (14:26)
[2019-01-25] MEDS ORDERED: DEXTROSE 5% IN WATER 1,000 ML with SODIUM BICARB (1 MEQ/ML) 150 ML IV ONE (15:00)
[2019-01-25] MEDS: ISOSORBIDE MONONITRATE ER 60 MG TAB.ER.24H PO SCH (15:20)
[2019-01-25] MEDS: cloNIDine 0.2 MG/24HR PATCH TRANSDERM SCH (15:20)
--- NOTE | 2019-01-25 15:29 | P.PN ---
Subjective Progress Note Date: 01/25/19 Principal diagnosis: 53-year-old admitted with possible non-ST elevation myocardial infarction Patient chest pain was similar to the pain week when he had microinfarction the past. Patient appears to be volume overloaded with elevated JVD although doesn't have any significant crackles chest x-ray showing pulmonary edema because of that reason I'll start IV fluids patient was started on Lasix. Patient is still nauseous quite a bit patient was receiving Protonix able to take some oral diet today looks better than yesterday but does have leukocytosis I am obtaining an ultrasound of the abdomen to rule out any cholelithiasis although patient doesn't have any pain in the right upper quadrant. 01/20/2019 Patient respiratory status improved but his serum creatinine has worsened patient's Lasix was cut down to daily from twice a day. Patient had a CAT scan of the chest as there is a concern on the chest x-ray that may be a pneumothorax. There is no pneumothorax evident on the CAT scan of the chest but patient does have diffuse pulmonary edema. Patient nausea improved. 01/21/2019 She looks better today but had a his creatinine went up a bit patient remains on 6 once a day continue to monitor kidney function possibly of cardiac catheterization on Thursday01/22/2019 Overall patient has significant improvement patient's creatinine continued to improve patient probably will undergo cardiac catheterization on Thursday01/23/2019 Patient's creatinine continued to improve patient probably will undergo cardiac catheterization tomorrow 01/24/2019 Patient's serum creatinine continue to improve patient will undergo cardiac catheterization today. Since hemoglobin is 6.9 today secondary to daily blood draws,, patient will be transfused 1 unit of PRBC Constitutional: Denied any fatigue denied any fever. Cardio vascular: denied any chest pain, palpitations Gastrointestinal nausea resolved Pulmonary: Shortness of breath significantly improved Neurologic denied any new focal deficits All inpatient medications were reviewed and appropriate changes in these med ications as dictated in the interval history and assessment and plan. 01/25/2019 Is a 53-year-old male lying in bed sleeping but easily arousable. Patient is awaiting a cardiac catheterization early this afternoon. Patient is currently nothing by mouth. Patient denies any chest pain, shortness of breath, or palpitations at this time. Denies any nausea or vomiting just hungry but understands that he needs to be nothing by mouth for the procedure. Patient serum creatinine is continuing to improve. Current creatinine is 1.97. Yesterday patient's hemoglobin was 6.9 and received 1 unit of PRBCs. Current hemoglobin is 8.5. Objective - Vital Signs Vital signs: Vital Signs Temp 98.1 F 01/25/19 15:10 Pulse 67 01/25/19 15:10 Resp 16 01/25/19 15:10 BP 144/73 01/25/19 15:10 Pulse Ox 96 01/25/19 15:10 Intake & Output 01/24/19 01/25/19 01/25/19 18:59 06:59 18:59 Intake Total 790 100 Output Total 1500 2775 Balance -710 -2775 100 Weight 88.7 kg 88.7 kg Intake: IV 100 Oral 480 0 Blood Product 310 Rc As-1 Unit 310 [id number] Output: Urine 1500 2775 Other: Voiding Method Indwelling Catheter Indwelling Catheter Indwelling Catheter - Exam PHYSICAL EXAMINATION: GENERAL: The patient is alert and oriented x3, not in any acute distress. Well developed, well nourished. Vital signs are stable. Blood pressure is 134/67, pulse is 66, respirations are 16, temp is 98.3F, oxygen saturation is 96% on room air HEENT: Pupils are round and equally reacting to light. EOMI. No scleral icterus. No conjunctival pallor. Normocephalic, atraumatic. No pharyngeal erythema. No thyromegaly. CARDIOVASCULAR: S1 and S2 present. No murmurs, rubs, or gallops. JVD improved PULMONARY: Chest is clear to auscultation, no wheezing or crackles. ABDOMEN: Mildly distended tympanic sluggish bowel sounds no organomegaly no significant tenderness MUSCULOSKELETAL: No joint swelling or deformity. EXTREMITIES: No cyanosis, clubbing, or pedal edema improved NEUROLOGICAL: Gross neurological examination did not reveal any focal deficits. SKIN: No rashes. - Labs CBC & Chem 7: 01/25/19 05:48 01/25/19 05:48 Labs: Abnormal Lab Results - Last 24 Hours (Table) 01/24/19 01/24/19 01/24/19 Range/Units 12:24 16:59 20:53 RBC (4.30-5.90) m/uL Hgb (13.0-17.5) gm/dL Hct (39.0-53.0) % Plt Count (150-450) k/uL BUN (9-20) mg/dL Creatinine (0.66-1.25) mg/dL Glucose (74-99) mg/dL POC Glucose (mg/dL) 347 H 170 H (75-99) mg/dL Calcium (8.4-10.2) mg/dL Crossmatch See Detail 01/25/19 01/25/19 01/25/19 Range/Units 05:48 05:48 06:03 RBC 2.93 L (4.30-5.90) m/uL Hgb 8.5 L D (13.0-17.5) gm/dL Hct 25.5 L (39.0-53.0) % Plt Count 144 L (150-450) k/uL BUN 28 H (9-20) mg/dL Creatinine 1.97 H (0.66-1.25) mg/dL Glucose 263 H (74-99) mg/dL POC Glucose (mg/dL) 290 H (75-99) mg/dL Calcium 8.1 L (8.4-10.2) mg/dL Crossmatch 01/25/19 Range/Units 11:50 RBC (4.30-5.90) m/uL Hgb (13.0-17.5) gm/dL Hct (39.0-53.0) % Plt Count (150-450) k/uL BUN (9-20) mg/dL Creatinine (0.66-1.25) mg/dL Glucose (74-99) mg/dL POC Glucose (mg/dL) 116 H (75-99) mg/dL Calcium (8.4-10.2) mg/dL Crossmatch Assessment and Plan Assessment: Chest pain with elevated troponins, possibly of non-ST elevation myocardial infarction: Patient was on IV heparin for 2 days subsequently now discontinued. -Anemia secondary to blood draws and acute patient does have chronic anemia probably iron deficiency. Current hemoglobin is 8.5 -Congestive heart failure chronic diastolic dysfunction with acute exacerbation patient will be continued on Lasix with a lower dose since his kidney function has worsened. Current creatinine is 1.97, BUNs 28 -Nausea vomiting with abdominal distention: Probably related to acute myocardial infarction. Ultrasound essentially within normal limits. Patient denies any nausea or vomiting at this time -Carotid disease with previous stents in the past -Type 2 diabetes mellitus -Urinary retention patient has a Garcia catheter urine intervention can be related to constipation -Increasing creatinine acute renal failure secondary to prerenal azotemia and congestive heart failure but worsening renal function is due to excessive diuresis on aggressive diuresis cutting down on the diuretic therapy as mentioned above, patient's creatinine improved compared to yesterday -chronic kidney disease stage III secondary to diabetic nephropathy Recommendations and discussion Recommend continue current medication management and symptomatic treatment. Will continue to monitor vital signs and labs closely. Patient is going down for a cardiac catheterization this afternoon. Will await report. Lucy vuong. Further recommendations to follow.
--- NOTE | 2019-01-25 16:33 | CC ---
CARDIAC CATHETERIZATION REPORT Mr. Tinajero is a 53-year-old gentleman who was admitted with symptoms of chest pain, nausea and high blood pressure. Patient had a mildly elevated troponin. In view of his known coronary artery disease, patient was advised further evaluation with a cardiac catheterization for definitive diagnosis. PROCEDURE DESCRIPTION: The right groin was prepped and draped in the usual manner and the skin was infiltrated with 2% Xylocaine. The right femoral artery was entered using Seldinger technique. Micropuncture needle under ultrasound guidance and a #6 Kosovan sheath was placed in. Selective coronary angiography was then performed in multiple projections and the left ventricular pressures were obtained. Sheath was removed and good hemostasis was achieved with the use of Angio-Seal. Moderate sedation was used. Total sedation time was 26 minutes. HEMODYNAMICS: The left ventricular end-diastolic pressure was 20 mmHg prior to angiography. No gradient was noted across the aortic valve. SELECTIVE CORONARY ANGIOGRAPHY: Left main coronary artery is normal and patent. LAD is a good-caliber blood vessel. The stent in proximal and mid LAD is patent. The distal LAD is diffusely diseased and becomes thread-like and is unchanged from before. The circumflex coronary artery is a good-caliber blood vessel and it is patent at the site of prior stent placement. It is dominant in distribution. The right coronary artery is small and totally occluded, unchanged from before. RECOMMENDATIONS: Medical treatment and risk factor modification. MMODL / IJN: [id number] /
[2019-01-25 16:57] LABS: Glucose,Whole Blood 258 mg/dL (75-99)
[2019-01-25 19:51] VITALS: RESP 18
[2019-01-25] MEDS: LURASIDONE 20 MG TAB PO SCH (20:42)
[2019-01-25] MEDS: CLOPIDOGREL 75 MG TAB PO SCH (20:42)
[2019-01-25 20:43] LABS: Glucose,Whole Blood 444 mg/dL (75-99)
[2019-01-25] MEDS ORDERED: ATORVASTATIN 80 MG TAB PO SCH (21:00)
[2019-01-26 06:25] LABS: Glucose,Whole Blood 428 mg/dL (75-99)
[2019-01-26] MEDS: INSULIN ASPART (NovoLOG) 100 UNIT/ML VIAL SQ SCH ×2 (06:46→11:53)
[2019-01-26] MEDS: PANTOPRAZOLE 40 MG TABLET PO SCH (06:46)
[2019-01-26] MEDS: ONDANSETRON 4 MG/2 ML VIAL IVP SCH ×2 (06:47→11:52)
[2019-01-26 07:21] LABS: Calcium 7.7 mg/dL (8.4-10.2); Magnesium 1.9 mg/dL (1.6-2.3); Potassium 4.1 mmol/L (3.5-5.1)
[2019-01-26] MEDS: CITALOPRAM HYDROBROMIDE 20 MG TAB PO SCH (08:14)
[2019-01-26] MEDS: GLIMEPIRIDE 1 MG TAB PO SCH (08:14)
[2019-01-26] MEDS: DOCUSATE 100 MG CAP PO SCH (08:14)
[2019-01-26] MEDS: LINAGLIPTIN 5 MG TABLET PO SCH (08:14)
[2019-01-26] MEDS: ISOSORBIDE MONONITRATE ER 60 MG TAB.ER.24H PO SCH (08:15)
[2019-01-26] MEDS: LORATADINE 10 MG TAB PO SCH (08:15)
[2019-01-26] MEDS: METOPROLOL SUCCINATE (ER) 50 MG TAB.ER.24H PO SCH (08:15)
[2019-01-26] MEDS: hydrALAZINE HCL 50 MG TAB PO SCH ×2 (08:15→11:55)
[2019-01-26] MEDS: amLODIPine 5 MG TAB PO SCH (08:15)
[2019-01-26] MEDS: GABAPENTIN 300 MG CAP PO SCH (08:15)
[2019-01-26] MEDS: TAMSULOSIN 0.4 MG CAP.ER.24H PO SCH (08:15)
[2019-01-26] MEDS: FUROSEMIDE 40 MG TAB PO SCH (08:15)
--- NOTE | 2019-01-26 10:46 | P.PN ---
Subjective Patient seen in follow-up for acute kidney injury on chronic kidney disease. Patient has chronic kidney disease stage III with baseline creatinine in the range of 1.6-2 secondary to diabetic kidney disease. Renal function stable. Creatinine 1.94 today. Patient has a chronic Garcia catheter. He is nonoliguric. Currently on Lasix 40 mg po twice daily. He is tolerating oral intake. No chest pain or shortness of breath. Vital signs are stable. General: The patient appeared well nourished and normally developed. HEENT: Head exam is unremarkable. Neck is without jugular venous distension. LUNGS: Lungs are clear to auscultation and percussion. Breath sounds decreased. HEART: Rate and Rhythm are regular. First and second heart sounds normal. No murmurs, rubs or gallops. ABDOMEN: Abdominal exam reveals normal bowel sounds. Non-tender and non- distended. No evidence of peritonitis. EXTREMITITES: 1+ edema. Objective - Vital Signs Vital signs: Vital Signs Temp 98.3 F 01/26/19 08:28 Pulse 79 01/26/19 08:28 Resp 18 01/26/19 08:28 BP 138/62 01/26/19 08:28 Pulse Ox 96 01/26/19 08:28 Intake & Output 01/25/19 01/26/19 01/26/19 18:59 06:59 18:59 Intake Total 340 240 Output Total 2400 925 Balance -2059 -925 240 Weight 88.7 kg 90 kg Intake: IV 100 Oral 240 240 Output: Urine 2400 925 Other: Voiding Method Indwelling Catheter Indwelling Catheter Indwelling Catheter - Labs CBC & Chem 7: 01/25/19 05:48 01/26/19 05:57 Labs: Abnormal Lab Results - Last 24 Hours (Table) 01/25/19 01/25/19 01/25/19 Range/Units 05:48 11:50 16:53 Sodium (137-145) mmol/L Chloride (98-107) mmol/L BUN (9-20) mg/dL Creatinine (0.66-1.25) mg/dL Glucose (74-99) mg/dL POC Glucose (mg/dL) 116 H 258 H (75-99) mg/dL Calcium (8.4-10.2) mg/dL Ferritin 493.8 H (22.0-322.0) ng/mL 01/25/19 01/26/19 01/26/19 Range/Units 20:38 05:57 06:20 Sodium 134 L (137-145) mmol/L Chloride 96 L (98-107) mmol/L BUN 31 H (9-20) mg/dL Creatinine 1.94 H (0.66-1.25) mg/dL Glucose 384 H (74-99) mg/dL POC Glucose (mg/dL) 444 H 428 H (75-99) mg/dL Calcium 7.7 L (8.4-10.2) mg/dL Ferritin (22.0-322.0) ng/mL Microbiology - Last 24 Hours (Table) 01/22/19 16:00 Urine Culture - Final Urine,Catheterized Staph capitis SS capitis Assessment and Plan Plan: Assessment: 1. Chronic kidney disease stage III secondary to diabetic kidney disease with baseline creatinine in the range of 1.6-2 recently. Ultrasound from last month revealed no evidence of hydronephrosis. GFR near baseline. 2. Chest pain status post cardiac catheterization on January 25. Chronic disease noted. No new interventions done. 3. History of coronary artery disease status post 4 cardiac stents. 4. Urinary retention. Currently has a Garcia catheter in place. 5. Diabetes mellitus. 6. Diastolic CHF with moderate MR. 7. Hypertension with chronic kidney disease. Stable. 8. Anemia chronic kidney disease. Iron deficiency noted. Status post IV iron. Maintained on Aranesp. Plan: Resume Lasix 40 mg orally twice daily. Avoid nephrotoxins. Continue to monitor renal function and urine output. Stable to be discharged home from nephrology standpoint. BMP and magnesium level to be checked 2-3 days postdischarge and follow up outpatient in the next 1-2 weeks.
[2019-01-26] MEDS ORDERED: INSULIN ASPART (NovoLOG) 100 UNIT/ML VIAL SQ ONE (11:31)
[2019-01-26 11:33] LABS: Glucose,Whole Blood 303 mg/dL (75-99)
--- NOTE | 2019-01-26 14:44 | P.PN ---
Subjective Progress Note Date: 01/26/19 This is a pleasant 53-year-old gentleman who follows regularly with Dr. VC Church in the office. He has a known history of diabetes, chronic kidney disease, hypertension, hyperlipidemia, he also has history of TIA in the past, rheumatoid arthritis, family history of premature coronary artery disease, he himself has coronary artery disease and in October of last year underwent angioplasty and stenting of the chronically occluded mid and proximal circumflex artery. He presents to the hospital on this occasion with symptoms of chest discomfort, shortness of breath and bilateral lower extremity swelling. According to the patient, he's been experiencing discomfort in his chest which she describes as a tightness that comes and goes. He states it does remind him of what he had prior to his stent placement. Patient also has been much more short of breath than usual, and is experiencing symptoms of nausea. He does have bilateral lower extremity edema which according to the is about the same as his usual. Chest x-ray did not reveal any active cardiopulmonary disease. EKG shows a normal sinus rhythm with no acute changes noted. KUB was performed which was negative. Blood pressure 186/99, heart rate 106, 95% on room air. White blood cell count 6.1, hemoglobin 7.9, platelet count 146. D- dimer 0.9, sodium 141, potassium 4.3, BUN 29 and creatinine 1.7. Troponins 0.012, 0.20, 0.28. BNP level 1510. At the time of my examination, patient has just been brought up to the cardiac unit, he spent most of his time in the emergency room. He is quite nauseated and weak, feels short of breath, currently chest pain-free. 01/19/2019 Patient was seen and examined this morning, he does state that he's feeling somewhat better today, still appears to be quite weak. Complaining of feeling short of breath, sitting up in the chair at bedside today. Denies any further chest tightness. Blood pressure 164/90 with a heart rate in the 80s, 92% on 2 L of oxygen. White blood cell count today is up to 19,000, hemoglobin 9.3, platelet count 241. Sodium 143, potassium 5.3, BUN 36 and creatinine 2.01. Magnesium 1.9. 01/20/2019 Patient seen and examined this morning, nausea is improving. Creatinine today is 2.4. He did have one episode of chest discomfort earlier this morning, and EKG was performed which did not reveal any new changes. Blood pressure 126/70 with a heart rate in the 70s, 97% on 2 L of oxygen. White blood cell count 13, hemoglobin 7.1 today, platelet count 149. Sodium 138, potassium 4.1, BUN 50 and creatinine 2.4, magnesium 2.0. 01/24/2019 Patient was seen and examined this morning, creatinine 2.02 today, cleared by nephrology to proceed with cardiac cath. Hemoglobin today is 6.8, patient will receive a blood transfusion. He will be scheduled tomorrow to undergo cardiac catheterization with Dr. VC Church. The risks and the benefits again were discussed with the patient and his in detail. 01/26/2019 Patient underwent a cardiac catheterization yesterday, medical therapy was advised. He was seen and examined this morning, denied any further chest discomfort. Hemodynamically stable.sodium 134, potassium 4.1, BUN 31 and creatinine 1.9, magnesium 1.9 today. Objective - Vital Signs Vital signs: Vital Signs Temp 98.3 F 01/26/19 08:28 Pulse 79 01/26/19 08:28 Resp 18 01/26/19 08:28 BP 138/62 01/26/19 08:28 Pulse Ox 96 01/26/19 08:28 Intake & Output 01/25/19 01/26/19 01/26/19 18:59 06:59 18:59 Intake Total 340 720 Output Total 2400 925 Balance -2059 720 Weight 88.7 kg 90 kg Intake: IV 100 Oral 240 720 Output: Urine 2400 925 Other: Voiding Method Indwelling Catheter Indwelling Catheter Indwelling Catheter - Exam PHYSICAL EXAMINATION: GENERAL: 53-year-old pale looking gentleman in no acute distress at the time of my examination HEENT: Head is atraumatic, normocephalic. Pupils equal, round. Sclera anicteric. Conjunctiva are clear. Mucous membranes of the mouth are moist. Neck is supple. There is elevated jugular venous pressure. No Carotid bruit is heard. HEART EXAMINATION: Heart S1, S2 normal. No murmur or gallop heard. CHEST EXAMINATION: Lungs reveal some coarse crackles with diminished air entry to the bases. ABDOMEN: Soft, nontender. Bowel sounds are heard. No organomegaly noted. EXTREMITIES: 2+ peripheral pulses with 2+ evidence of peripheral edema and no calf tenderness noted. Right groin soft, no evidence of any hematoma. NEUROLOGIC patient is awake, alert and oriented 3 . - Labs CBC & Chem 7: 01/25/19 05:48 01/26/19 05:57 Labs: Abnormal Lab Results - Last 24 Hours (Table) 01/25/19 01/25/19 01/25/19 Range/Units 05:48 16:53 20:38 Sodium (137-145) mmol/L Chloride (98-107) mmol/L BUN (9-20) mg/dL Creatinine (0.66-1.25) mg/dL Glucose (74-99) mg/dL POC Glucose (mg/dL) 258 H 444 H (75-99) mg/dL Calcium (8.4-10.2) mg/dL Ferritin 493.8 H (22.0-322.0) ng/mL 01/26/19 01/26/19 01/26/19 Range/Units 05:57 06:20 11:23 Sodium 134 L (137-145) mmol/L Chloride 96 L (98-107) mmol/L BUN 31 H (9-20) mg/dL Creatinine 1.94 H (0.66-1.25) mg/dL Glucose 384 H (74-99) mg/dL POC Glucose (mg/dL) 428 H 303 H (75-99) mg/dL Calcium 7.7 L (8.4-10.2) mg/dL Ferritin (22.0-322.0) ng/mL Microbiology - Last 24 Hours (Table) 01/22/19 16:00 Urine Culture - Final Urine,Catheterized Staph capitis SS capitis Assessment and Plan Plan: Assessment and plan #1 accelerated hypertension #2 symptoms of chest tightness with mild abnormality in troponin, possible acute coronary syndrome. EKG shows normal sinus rhythm with no acute changes. #3 history of recent CVA #4 persistent nausea and vomiting with associated decreased appetite #5 diabetes #6 hyperlipidemia #7 rheumatoid arthritis #8 history of anxiety or depression #9 abnormal troponin, patient denies having any chest discomfort #10 coronary artery disease with prior PCI, patient underwent PTCA and stenting of a dominant mid and proximal circumflex artery in 2018 #11 anemia #12 congestive heart failure, diastolic acute on chronic Plan status post cardiac catheterization yesterday, medical therapy was advised. From cardiology's perspective patient can be discharged home today, we'll make a follow-up appointment in the office with Dr. VC Church post discharge. DNP note has been reviewed, I agree with a documented findings and plan of care. Patient was seen and examined.
[2019-01-26 15:46] VITALS: BP 130/60; PULSE 69; TEMP 97.8
[2019-01-26] MEDS ORDERED: ASPIRIN 81 MG PO SCH (21:00)
--- NOTE | 2019-01-27 05:56 | DS ---
DISCHARGE SUMMARY FINAL DIAGNOSES: 1. Chest pain, possible acute non ST-segment elevation myocardial infarction, status post cardiac catheterization and on medical treatment. 2. Anemia possibly iron deficiency anemia. 3. Congestive heart failure with chronic diastolic dysfunction with acute on chronic exacerbation. 4. Nausea, vomiting possible secondary to acute myocardial infarction. 5. Carotid disease and stent in the past. 6. Diabetes mellitus type 2. 7. Urinary retention. 8. Prerenal failure secondary to prerenal azotemia secondary to congestive heart failure. 9. Chronic kidney disease stage 3 as baseline. 10.Diabetes mellitus type 2. 11.Anemia. 12.Gastroesophageal reflux disease. 13.History of rheumatoid arthritis. 14.History of stroke. 15.Anxiety, depression. 16.Gait dysfunction. 17.FULL CODE. DISCHARGE DISPOSITION: The patient will be discharged in stable condition with guarded prognosis. Discharge cleared by multiple consultants. Patient is keen on going home. Total time 35 minutes. HISTORY OF PRESENT ILLNESS: This 53-year-old gentleman with a past medical history of multiple medical problems admitted with chest pain, acute non ST elevation myocardial infarction suspected. Patient was treated medically. Cardiac catheterization was done and Cardiology recommended continued medical treatment. Otherwise, other medication continued. Patient improved significantly. Nephrology saw the patient. Creatinine is stable at 2.16. Medication adjusted. The patient follows with Dr. Scott in the outpatient setting. On exam, vitals are stable. CARDIOVASCULAR: S1, S2 muffled. RESPIRATORY: A few rhonchi. ABDOMEN: Soft. NERVOUS SYSTEM: No focal deficits. The patient had Garcia catheter to be followed up in the outpatient setting via Urology. DISCHARGE ADVICE AND MEDICATIONS: 1. Diet is cardiac. 2. Activity limited until followup. 3. Follow up with Dr. Scott in 2 to 3 days. 4. Follow up with Dr. Nguyễn Garcia as advised. 5. Follow up with Nephrology and Cardiology as recommended. Medications are as follows: 1. Amaryl 1 mg q.a.m. 2. Aspirin 81 mg q.h.s. 3. Celexa 60 mg p.o. daily. 4. Claritin 10 mg p.o. daily. 5. DOK 100 mg p.o. b.i.d. 6. Fioricet 50/325/40 one p.o. q.4 p.r.n. 7. Flomax 0.4 daily p.o. b.i.d. 8. Gabapentin 600 mg p.o. b.i.d. 9. Januvia 100 mg p.o. q.a.m. 10.Latuda 40 mg q.h.s. 11.Plavix 75 mg p.o. q.h.s. 12.Protonix 40 mg p.o. b.i.d. 13.Apresoline 100 mg p.o. q.i.d. 14.Catapres 0.2 t.i.d. 15.Imdur 60 mg p.o. daily. 16.Lasix 40 mg p.o. b.i.d. 17.Lipitor 80 mg p.o. q.h.s. 18.Norvasc 5 mg p.o. b.i.d. 19.Toprol XL 50 mg p.o. daily. 20.Tylenol 650 q.6 p.r.n. Once again, the patient will be discharged in stable condition with guarded prognosis. MMODL / IJN: [id number] /
== END 2019-01-26 16:41 | disposition home or self-care (01) | DRG 280 ==
LOC: EC 19:05 → 1SOBS 23:08 → 3SCARD 01-18 03:42 → OBSVTOIN 01-18 15:59
PROVIDERS: ADMIT Internal Medicine; ATTEND Internal Medicine
PROC: 05HC33Z Insertion of Infusion Device into Left Basilic Vein, Percutaneous Approach (ICD-10-PCS; 2019-01-19)
PROC: B2151ZZ Fluoroscopy of Left Heart using Low Osmolar Contrast (ICD-10-PCS; 2019-01-25)
PROC: 4A023N7 Measurement of Cardiac Sampling and Pressure, Left Heart, Percutaneous Approach (ICD-10-PCS; principal; 2019-01-25 13:30)
PROC: B2111ZZ Fluoroscopy of Multiple Coronary Arteries using Low Osmolar Contrast (ICD-10-PCS; 2019-01-25 13:30)
DX: I21.4 Non-ST elevation (NSTEMI) myocardial infarction (principal); I50.33 Acute on chronic diastolic (congestive) heart failure; I13.0 Hypertensive heart and chronic kidney disease with heart failure and stage 1 through stage 4 chronic kidney disease, or unspecified chronic kidney disease; I42.9 Cardiomyopathy, unspecified; N17.9 Acute kidney failure, unspecified; N18.3 Chronic kidney disease, stage 3 (moderate); D50.0 Iron deficiency anemia secondary to blood loss (chronic); D63.1 Anemia in chronic kidney disease; D72.829 Elevated white blood cell count, unspecified; E11.22 Type 2 diabetes mellitus with diabetic chronic kidney disease; E11.40 Type 2 diabetes mellitus with diabetic neuropathy, unspecified; Z79.84 Long term (current) use of oral hypoglycemic drugs; E66.9 Obesity, unspecified; Z68.29 Body mass index [BMI] 29.0-29.9, adult; E78.5 Hyperlipidemia, unspecified; F32.9 Major depressive disorder, single episode, unspecified; F41.9 Anxiety disorder, unspecified; H54.8 Legal blindness, as defined in USA; I25.10 Atherosclerotic heart disease of native coronary artery without angina pectoris; I25.2 Old myocardial infarction; I34.0 Nonrheumatic mitral (valve) insufficiency; K21.9 Gastro-esophageal reflux disease without esophagitis; M06.9 Rheumatoid arthritis, unspecified; N40.1 Benign prostatic hyperplasia with lower urinary tract symptoms; R33.8 Other retention of urine; R79.1 Abnormal coagulation profile; Z79.82 Long term (current) use of aspirin; Z79.899 Other long term (current) drug therapy; Z82.49 Family history of ischemic heart disease and other diseases of the circulatory system; Z83.3 Family history of diabetes mellitus; Z86.73 Personal history of transient ischemic attack (TIA), and cerebral infarction without residual deficits; Z95.5 Presence of coronary angioplasty implant and graft; Z79.02 Long term (current) use of antithrombotics/antiplatelets; R26.9 Unspecified abnormalities of gait and mobility; Z91.041 Radiographic dye allergy status; R11.2 Nausea with vomiting, unspecified
CPT/HCPCS: 36410; 36415; 71045; 71046; 71250; 74018; 76705; 76937; 80048; 80053; 80061; 81001; 82728; 83540; 83550; 83690; 83735; 83880; 84484; 85025; 85379; 85610; 85730; 86850; 86900; 86901; 86920; 87077; 87086; 87186; 93005; 93458; 96361; 96365; 96366; 96375; 96376; 99285

== ENCOUNTER → 2019-02-02 | Outpatient (CLI) | payer OTHER ==
[2019-02-02 12:08] LABS: Appearance,Urine Cloudy (Clear); Bacteria,Urine Occasional /hpf; Bilirubin,Urine Negative (Negative); Blood,Urine Large (Negative); Color,Urine Light Red; Glucose,Urine (UA) Negative (Negative); Ketones,Urine Negative (Negative); Leukocyte Esterase,Urine Trace (Negative); Mucus,Urine Rare /hpf; Nitrite,Urine Positive (Negative); PH, Urine 6.5 (5.0-8.0); Protein,Urine 2+ (Negative); RBC,Urine >182 /hpf (0-5); Specific Gravity,Urine 1.015 (1.001-1.035); Urobilinogen,Urine <2.0 mg/dL (<2.0); WBC,Urine 40 /hpf (0-5)
[2019-02-02 12:21] LABS: Albumin 3.8 g/dL (3.5-5.0); Calcium 8.9 mg/dL (8.4-10.2); Total Bilirubin 0.4 mg/dL (0.2-1.3); Total Protein 6.4 g/dL (6.3-8.2)
[2019-02-02 12:22] LABS: Basophils % (A) 0 %; Eosinophils # (A) 0.2 k/uL (0-0.7); Eosinophils % (A) 2 %; HCT 26.2 % (39.0-53.0); HGB 8.6 gm/dL (13.0-17.5); Lymphocytes % (A) 14 %; MCH 29.3 pg (25.0-35.0); MCV 88.8 fL (80.0-100.0); Mean Platelet Volume 6.5; Monocytes # (A) 0.4 k/uL (0-1.0); Monocytes % (A) 6 %; Neutrophils # (A) 5.3 k/uL (1.3-7.7); Neutrophils % (A) 75 %; Platelet Count 170 k/uL (150-450); RBC 2.95 m/uL (4.30-5.90); RDW 14.1 % (11.5-15.5); WBC 7.1 k/uL (3.8-10.6)
== END | disposition home or self-care (01) ==
LOC: LABPAT 11:03
PROVIDERS: ATTEND Urology
DX: Z01.812 Encounter for preprocedural laboratory examination (principal); Z01.818 Encounter for other preprocedural examination; N40.1 Benign prostatic hyperplasia with lower urinary tract symptoms; R33.9 Retention of urine, unspecified; E11.49 Type 2 diabetes mellitus with other diabetic neurological complication; I10 Essential (primary) hypertension
CPT/HCPCS: 36415; 80053; 81001; 85025; 87077; 87086; 87186

== ENCOUNTER 2019-02-09 08:00 | Inpatient (IN) | payer OTHER ==
[2019-02-03 15:46] VITALS: BMI 28.5
--- NOTE | 2019-02-08 12:24 | P.GSHP ---
History of Present Illness H&P Date: 02/08/19 53 yo male who went into retention after a cva He has been unable to void post cva despite several attempts on alpha blockers He comes for a bipolar turp THe risks complications and altrernatives have been discussed, - Constitutional Constitutional: Denies chills, Denies fever - EENT Eyes: denies blurred vision, denies pain Ears, nose, mouth and throat: Denies headache, Denies sore throat - Cardiovascular Cardiovascular: Denies chest pain, Denies shortness of breath - Respiratory Respiratory: Denies cough, Denies 7 - Gastrointestinal Gastrointestinal: Denies abdominal pain, Denies diarrhea, Denies nausea, Denies vomiting - Genitourinary (Female) Genitourinary: Denies dysuria, Denies hematuria - Genitourinary (Male) Genitourinary: Denies dysuria, Denies hematuria - Musculoskeletal Musculoskeletal: Denies myalgias - Integumentary Integumentary: Denies pruritus, Denies rash - Neurological Neurological: Denies numbness, Denies weakness - Psychiatric Psychiatric: Denies anxiety, Denies depression - Endocrine Endocrine: Denies fatigue, Denies weight change Past Medical History Past Medical History: CVA/TIA, Diabetes Mellitus, GERD/Reflux, Hyperlipidemia, Hypertension, Myocardial Infarction ([place]), Renal Disease, Rheumatoid Arthritis ([place]) Additional Past Medical History / Comment(s): stroke apr 2017, migranes, diabetic neuropathy arms and legs, stage 3 kidney failure, PANCREATITIS, LEGALLY BLIND, enlarged prostate, trouble urinating has bustos catheter Last Myocardial Infarction Date:: 2014? not sure History of Any Multi-Drug Resistant Organisms: None Reported Past Surgical History: Heart Catheterization With Stent Additional Past Surgical History / Comment(s): EGD, 4 stents Past Anesthesia/Blood Transfusion Reactions: No Reported Reaction Additional Past Anesthesia/Blood Transfusion Reaction / Comment(s): never had anethesia Date of Last Stent Placement:: 2017 Smoking Status: Never smoker - Past Family History Mother Family Medical History: CVA/TIA, Diabetes Mellitus, Hypertension Additional Family Medical History / Comment(s): Mother is 77yrs old. Father Family Medical History: CVA/TIA, Diabetes Mellitus, Myocardial Infarction ([place]) Additional Family Medical History / Comment(s): Father of a [place] in his 50s. Medications and Allergies Home Medications Medication Instructions Recorded Confirmed Type Docusate Sodium [Dok] 100 mg PO BID 09/12/17 02/03/19 History Gabapentin 600 mg PO BID 09/12/17 02/03/19 History Glimepiride [Amaryl] 1 mg PO TID 09/12/17 02/03/19 History Lurasidone [Latuda] 40 mg PO HS 09/12/17 02/03/19 History sitaGLIPtin [Januvia] 50 mg PO QAM 09/12/17 02/03/19 History Pantoprazole [Protonix] 40 mg PO BID 11/05/17 02/03/19 History Tamsulosin [Flomax] 0.4 mg PO BID 11/05/17 02/03/19 History Atorvastatin [Lipitor] 80 mg PO HS tab 11/12/17 02/03/19 Rx Clopidogrel [Plavix] 75 mg PO HS 12/09/17 02/03/19 History Butalb/APAP/Caff 50-325-40Mg 1 tab PO Q4H PRN 12/12/18 02/03/19 History [Fioricet 50-325-40] Citalopram Hydrobromide [CeleXA] 60 mg PO DAILY 12/12/18 02/03/19 History Loratadine [Claritin] 10 mg PO DAILY 12/12/18 02/03/19 History Aspirin 81 mg PO HS 01/17/19 02/03/19 History Acetaminophen Tab [Tylenol] 650 mg PO Q6HR PRN tab 01/26/19 02/03/19 Rx Furosemide [Lasix] 40 mg PO BID@0900,1600 #60 tab 01/26/19 02/03/19 Rx Isosorbide Mononitrate ER [Imdur] 60 mg PO DAILY #30 tab.er.24h 01/26/19 02/03/19 Rx Metoprolol Succinate (ER) [Toprol 50 mg PO DAILY #30 tab 01/26/19 02/03/19 Rx Xl] amLODIPine [Norvasc] 5 mg PO BID #60 tab 01/26/19 02/03/19 Rx hydrALAZINE HCL [Apresoline] 100 mg PO QID #120 tab 01/26/19 02/03/19 Rx cloNIDine HCL [Catapres] 0.2 mg PO BID 02/03/19 02/03/19 History Allergies Allergy/AdvReac Type Severity Reaction Status Date / Time Iodinated Contrast- Oral and Allergy Nausea & Verified 02/03/19 15:30 IV Dye Vomiting Surgical - Exam - General well developed, well nourished, no distress - Eyes PERRL - ENT no hearing loss - Neck trachea midline - Respiratory normal respiratory effort - Cardiovascular Rhythm: regular - Genitourinary indwelling catheter - Integumentary no rash, no growths - Neurologic normal coordination, normal sensation - Musculoskeletal normal gait, normal posture - Psychiatric oriented to time, oriented to person, oriented to place, speech is normal, memory intact Assessment and Plan Assessment: Impression: Urine retention secondary bph Plan: bipolar turp
[~2019-02-09 08:00] MED LIST changes: -ALPRAZolam 0.25 MG TAB PO PRN; -ALPRAZolam 0.5 MG TAB PO PRN; +AMPICILLIN 1,000 MG in SODIUM CHLORIDE 0.9% 50 ML IVPB ONE; -ASPIRIN 325 MG TAB PO STA; -ATORVASTATIN 80 MG TAB PO STA; +DEXAMETHASONE SOD PHOSPHATE 10 MG/ML 1 ML VIAL IV ONE; +GENTAMICIN 100 MG in SODIUM CHLORIDE 0.9% 100 ML IVPB ONE; +HYDROmorphone 0.5 MG/0.5 ML SYRINGE IVP PRN; +LIDOCAINE 1% 20 ML VIAL (10MG/ML) FOR IV START INTRADERMA PRN; -NITROGLYCERIN SL TABS 0.4 MG TAB SUBLINGUAL PRN; +ONDANSETRON 4 MG/2 ML VIAL IVP ONE; +SCOPOLAMINE 1.5MG/72HR PATCH TRANSDERM ONE; -SODIUM CHLORIDE 0.9% 1,000 ML in EMPTY BAG 1 BAG IV ONE
[2019-02-09] MEDS: LACTATED RINGERS 1,000 ML IV SCH ×2 (10:34→14:09)
[2019-02-09 10:36] LABS: Glucose,Whole Blood 194 mg/dL (75-99)
[2019-02-09] MEDS ORDERED: MIDAZOLAM 2 MG/2 ML VIAL ONE (11:25)
[2019-02-09] MEDS ORDERED: PROPOFOL 10 MG/ML 20 ML VIAL IV ONE (11:25)
[2019-02-09] MEDS ORDERED: fentaNYL (PF) 50 MCG/ML 2 ML AMP ONE (11:25)
--- NOTE | 2019-02-09 12:29 | P.OP ---
Date of Procedure: 02/09/19 Preoperative Diagnosis: Urine retention, BPH with obstruction Postoperative Diagnosis: Same Procedure(s) Performed: Bipolar TURP with plasma button Anesthesia: MAC, spinal Surgeon: Raj Harris Estimated Blood Loss (ml): 25 Pathology: none sent Condition: stable Disposition: PACU Indications for Procedure: The patient is 53. He is gone in urine retention. He comes for a bipolar TURP. He understands he may have a hypotonic neurogenic bladder Description of Procedure: Patient is brought to the operating suite. He is given spinal anesthetic. He is given IV sedation. He's placed lithotomy position with a sterile prep and drape. Urethra is cut to 28-Moldovan with Koffi urethrotome. Under direct vision the 25-Moldovan sheath and direct vision obturator was introduced into the bladder. The prostate shows a high riding bladder neck. The bladder benjamin trabeculated and capacious. With the plasma button I sequentially melt the prostate beginning on the posterior prostate bladder neck to verumontanum . I then vaporized the left lateral wall bladder neck to verumontanum, the right lateral wall bladder neck to verumontanum. I then vaporized the anterior prostatic tissue bladder neck to verumontanum. A irrigate the bladder debris. I controlled bleeding with electrocautery. The patient is awakened and returned recovery room in good condition. Blood loss is less than 25 mL. He will be discharged home upon recovery.
[2019-02-09 12:39] VITALS: TEMP 97.3
[2019-02-09 12:50] LABS: Glucose,Whole Blood 187 mg/dL (75-99)
[2019-02-09] MEDS ORDERED: HYDROcodone/APAP 5-325MG 1 EACH TAB PO ONE (13:43)
[2019-02-09 14:05] LABS: Glucose,Whole Blood 226 mg/dL (75-99)
[2019-02-09 14:32] VITALS: RESP 18
[2019-02-09 15:50] VITALS: BP 122/70; PULSE 55
== END 2019-02-09 15:50 | disposition home or self-care (01) | DRG 713 ==
LOC: EDSTATUS 08:00 → 2ORMAIN 08:56
PROVIDERS: ADMIT Urology; ATTEND Urology
PROC: 0VB08ZZ Excision of Prostate, Via Natural or Artificial Opening Endoscopic (ICD-10-PCS; principal; 2019-02-09 10:15)
DX: N40.1 Benign prostatic hyperplasia with lower urinary tract symptoms (principal); N13.8 Other obstructive and reflux uropathy; R33.8 Other retention of urine; I69.398 Other sequelae of cerebral infarction; I12.9 Hypertensive chronic kidney disease with stage 1 through stage 4 chronic kidney disease, or unspecified chronic kidney disease; N18.3 Chronic kidney disease, stage 3 (moderate); E78.5 Hyperlipidemia, unspecified; H54.8 Legal blindness, as defined in USA; I10 Essential (primary) hypertension; I25.2 Old myocardial infarction; K21.9 Gastro-esophageal reflux disease without esophagitis; M06.9 Rheumatoid arthritis, unspecified; E11.40 Type 2 diabetes mellitus with diabetic neuropathy, unspecified; Z79.82 Long term (current) use of aspirin; Z79.84 Long term (current) use of oral hypoglycemic drugs; Z79.899 Other long term (current) drug therapy; Z82.49 Family history of ischemic heart disease and other diseases of the circulatory system; Z83.3 Family history of diabetes mellitus; Z82.3 Family history of stroke; Z79.02 Long term (current) use of antithrombotics/antiplatelets
CPT/HCPCS: 86850; 86900; 86901

== ENCOUNTER 2019-02-09 22:54 | Inpatient (IN) | payer OTHER ==
[2019-02-09] MEDS ORDERED: SODIUM CHLORIDE 0.9% 1,000 ML IV ONE (23:29)
[2019-02-09] MEDS ORDERED: MORPHINE SULFATE 4 MG/ML SYRINGE IVP STA (23:43)
[2019-02-10] MEDS ORDERED: IBUPROFEN IV 800 MG in SODIUM CHLORIDE 0.9% 250 ML IV ONE ×2
[2019-02-10 00:23] LABS: Basophils % (A) 0 %; Eosinophils % (A) 0 %; HCT 24.3 % (39.0-53.0); HGB 8.1 gm/dL (13.0-17.5); Lymphocytes # (A) 0.5 k/uL (1.0-4.8); Lymphocytes % (A) 4 %; MCH 28.8 pg (25.0-35.0); MCHC 33.3 g/dL (31.0-37.0); MCV 86.6 fL (80.0-100.0); Monocytes # (A) 0.3 k/uL (0-1.0); Monocytes % (A) 3 %; Neutrophils # (A) 10.2 k/uL (1.3-7.7); Neutrophils % (A) 92 %; Platelet Count 136 k/uL (150-450); RDW 14.7 % (11.5-15.5); WBC 11.1 k/uL (3.8-10.6)
[2019-02-10 00:29] LABS: Partial Thromboplastin Time 24.3 sec (22.0-30.0); Prothrombin Time 10.7 sec (9.0-12.0)
[2019-02-10] MEDS ORDERED: ONDANSETRON 4 MG/2 ML VIAL IVP STA (01:09)
--- NOTE | 2019-02-10 02:03 | ED ---
General Adult HPI - General Chief complaint: Urogenital Stated complaint: blood in urine Time Seen by Provider: 02/09/19 23:10 Source: patient, family Mode of arrival: wheelchair Limitations: no limitations - History of Present Illness Initial comments: 53-year-old male patient with past medical history significant for anemia with recent blood transfusion presents to the emergency department today for evaluation of hematuria after undergoing transurethral resection of the prostate earlier this morning. The patient does have a Garcia catheter in place. States this afternoon he noticed the urine was turning red. Patient is concerned because he does have history of anemia did have a blood transfusion recently. Patient denies any weakness or dizziness. Denies any sweats, chest pain, or shortness of breath. Patient states he is having some burning discomfort to the surgical region. Patient denies any recent rash, shortness breath, chest pain, abdominal pain, nausea, vomiting, diarrhea, constipation, back pain, numbness, tingling, dizziness, weakness, headache, visual changes, or any other complaints. - Related Data Home Medications Medication Instructions Recorded Confirmed Docusate Sodium [Dok] 100 mg PO BID 09/12/17 02/09/19 Gabapentin 600 mg PO BID 09/12/17 02/09/19 Glimepiride [Amaryl] 1 mg PO TID 09/12/17 02/09/19 Lurasidone [Latuda] 40 mg PO HS 09/12/17 02/09/19 sitaGLIPtin [Januvia] 50 mg PO QAM 09/12/17 02/09/19 Pantoprazole [Protonix] 40 mg PO BID 11/05/17 02/09/19 Tamsulosin [Flomax] 0.4 mg PO BID 11/05/17 02/09/19 Clopidogrel [Plavix] 75 mg PO HS 12/09/17 02/09/19 Butalb/APAP/Caff 50-325-40Mg 1 tab PO Q4H PRN 12/12/18 02/09/19 [Fioricet 50-325-40] Citalopram Hydrobromide [CeleXA] 60 mg PO DAILY 12/12/18 02/09/19 Loratadine [Claritin] 10 mg PO DAILY 12/12/18 02/09/19 Aspirin 81 mg PO HS 01/17/19 02/09/19 cloNIDine HCL [Catapres] 0.2 mg PO BID 02/03/19 02/09/19 Previous Rx's Medication Instructions Recorded Atorvastatin [Lipitor] 80 mg PO HS tab 11/12/17 Acetaminophen Tab [Tylenol] 650 mg PO Q6HR PRN tab 01/26/19 Furosemide [Lasix] 40 mg PO BID@0900,1600 #60 tab 01/26/19 Isosorbide Mononitrate ER [Imdur] 60 mg PO DAILY #30 tab.er.24h 01/26/19 Metoprolol Succinate (ER) [Toprol 50 mg PO DAILY #30 tab 01/26/19 Xl] amLODIPine [Norvasc] 5 mg PO BID #60 tab 01/26/19 hydrALAZINE HCL [Apresoline] 100 mg PO QID #120 tab 01/26/19 Allergies Allergy/AdvReac Type Severity Reaction Status Date / Time Iodinated Contrast- Oral and Allergy Nausea & Verified 02/03/19 15:30 IV Dye Vomiting Review of Systems ROS Statement: Those systems with pertinent positive or pertinent negative responses have been documented in the HPI. ROS Other: All systems not noted in ROS Statement are negative. Past Medical History Past Medical History: CVA/TIA, Diabetes Mellitus, GERD/Reflux, Hyperlipidemia, Hypertension, Myocardial Infarction ([place]), Renal Disease, Rheumatoid Arthritis ([place]) Additional Past Medical History / Comment(s): stroke apr 2017, migranes, diabetic neuropathy arms and legs, stage 2 kidney failure, PANCREATITIS, LEGALLY BLIND, enlarged prostate, trouble urinating Last Myocardial Infarction Date:: 2014? not sure History of Any Multi-Drug Resistant Organisms: None Reported Past Surgical History: No Surgical Hx Reported, Heart Catheterization With Stent Additional Past Surgical History / Comment(s): Prostrate surgery Past Anesthesia/Blood Transfusion Reactions: No Reported Reaction Additional Past Anesthesia/Blood Transfusion Reaction / Comment(s): never had anethesia Date of Last Stent Placement:: 2017 Past Psychological History: Anxiety, Depression Smoking Status: Never smoker Past Alcohol Use History: None Reported Past Drug Use History: None Reported - Past Family History Mother Family Medical History: CVA/TIA, Diabetes Mellitus, Hypertension Additional Family Medical History / Comment(s): Mother is 77yrs old. Father Family Medical History: CVA/TIA, Diabetes Mellitus, Myocardial Infarction ([place]) Additional Family Medical History / Comment(s): Father of a [place] in his 50s. General Exam Limitations: no limitations General appearance: alert, in no apparent distress, other (This is a well- developed, well-nourished adult male patient in no acute distress. Vital signs upon presentation are temperature 97.9F, pulse 75, respirations 17, blood pressure 142/64, pulse ox 98% on room air.) Eye exam: Present: normal appearance, PERRL, EOMI. Absent: scleral icterus, conjunctival injection, periorbital swelling ENT exam: Present: normal exam, normal oropharynx, mucous membranes moist Respiratory exam: Present: normal lung sounds bilaterally. Absent: respiratory distress, wheezes, rales, rhonchi, stridor Cardiovascular Exam: Present: regular rate, normal rhythm, normal heart sounds. Absent: systolic murmur, diastolic murmur, rubs, gallop, clicks GI/Abdominal exam: Present: soft, normal bowel sounds. Absent: distended, tenderness, guarding, rebound, rigid Neurological exam: Present: alert, oriented X3, CN II-XII intact Psychiatric exam: Present: normal affect, normal mood Skin exam: Present: warm, dry, intact, normal color. Absent: rash Course Vital Signs 02/09/19 02/10/19 22:55 01:57 Temperature 97.9 F Pulse Rate 75 73 Respiratory 17 18 Rate Blood Pressure 142/64 130/65 O2 Sat by Pulse 98 98 Oximetry Medical Decision Making - Medical Decision Making 53-year-old male patient presents to the emergency department today for evaluation of hematuria. Patient did undergo TURP earlier today. Patient has history of anemia and recently had blood transfusion. Labs reviewed and showed hgb 8.1. With gross hematuria and history of cardiac disease we will admit for serial hgb and 1 unit of packed red cells. Urology will be consulted. Patient agrees with this plan. - Lab Data Result diagrams: 02/10/19 00:09 Lab Results 02/10/19 02/10/19 Range/Units 00:09 00:09 WBC 11.1 H (3.8-10.6) k/uL RBC 2.80 L (4.30-5.90) m/uL Hgb 8.1 L (13.0-17.5) gm/dL Hct 24.3 L (39.0-53.0) % MCV 86.6 (80.0-100.0) fL MCH 28.8 (25.0-35.0) pg MCHC 33.3 (31.0-37.0) g/dL RDW 14.7 (11.5-15.5) % Plt Count 136 L (150-450) k/uL Neutrophils % 92 % Lymphocytes % 4 % Monocytes % 3 % Eosinophils % 0 % Basophils % 0 % Neutrophils # 10.2 H (1.3-7.7) k/uL Lymphocytes # 0.5 L (1.0-4.8) k/uL Monocytes # 0.3 (0-1.0) k/uL Eosinophils # 0.0 (0-0.7) k/uL Basophils # 0.0 (0-0.2) k/uL PT 10.7 (9.0-12.0) sec INR 1.0 (<1.2) APTT 24.3 (22.0-30.0) sec Disposition Clinical Impression: Hematuria, Anemia Disposition: ADMITTED IP TO THIS [facility] Condition: Serious Referrals: Lamar Scott MD [Primary Care Provider] - 1-2 days Decision to Admit Reason: Admit from EC Decision Date: 02/10/19 Decision Time: 03:05
[2019-02-10] MEDS ORDERED: NALOXONE 0.4 MG/ML 1 ML VIAL IV PRN (03:02)
[2019-02-10 06:37] LABS: Glucose,Whole Blood 186 mg/dL (75-99)
[2019-02-10] MEDS ORDERED: SODIUM CHLORIDE 0.9% 1,000 ML IV SCH (09:00)
[2019-02-10] MEDS: METOPROLOL SUCCINATE (ER) 50 MG TAB.ER.24H PO SCH (09:11)
[2019-02-10] MEDS: CITALOPRAM HYDROBROMIDE 20 MG TAB PO SCH (09:11)
[2019-02-10] MEDS: amLODIPine 5 MG TAB PO SCH ×2 (09:11→20:48)
[2019-02-10] MEDS: LORATADINE 10 MG TAB PO SCH (09:11)
[2019-02-10] MEDS: GABAPENTIN 300 MG CAP PO SCH ×2 (09:11→20:48)
[2019-02-10] MEDS: TAMSULOSIN 0.4 MG CAP.ER.24H PO SCH ×2 (09:11→20:48)
[2019-02-10] MEDS: cloNIDine HCL 0.2 MG TAB PO SCH ×2 (09:12→20:48)
[2019-02-10] MEDS: ISOSORBIDE MONONITRATE ER 60 MG TAB.ER.24H PO SCH (09:12)
[2019-02-10] MEDS: GLIMEPIRIDE 1 MG TAB PO SCH ×3 (09:12→22:16)
[2019-02-10] MEDS: DOCUSATE 100 MG CAP PO SCH ×2 (09:12→20:48)
[2019-02-10] MEDS: hydrALAZINE HCL 50 MG TAB PO SCH ×4 (09:12→22:16)
[2019-02-10] MEDS: LINAGLIPTIN 5 MG TABLET PO SCH (09:13)
[2019-02-10] MEDS: PANTOPRAZOLE 40 MG TABLET PO SCH ×2 (09:56→18:27)
--- NOTE | 2019-02-10 10:57 | P.GSCN ---
History of Present Illness Consult date: 02/10/19 History of present illness: 53 yo male with multiple medical problems including chronic anemia underwent a turp yesterday at the [facility] for urine retention. He had some hematuria He was admitted to the hospital for that His hgb was 8.1(8.6), the patient has had an upper endoscopy but due to cardiac issues is not had a colonoscopy yet. His gross hematuria is old blood this morning. The catheter seems to be flowing. There is no fresh bleeding. Review of Systems All systems: negative - Constitutional Denies fever, Denies weight loss - EENT Eyes: denies blurred vision Ears, nose, mouth and throat: Denies dysphagia - Cardiovascular Denies chest pain, Denies shortness of breath - Respiratory Denies cough, Denies 7 - Gastrointestinal Reports as per HPI - Genitourinary Denies dysuria, Denies hematuria - Integumentary Denies rash, Denies unusual bruising - Neurological Denies headaches, Denies syncope - Hematologic/Lymphatic Denies easy bleeding, Denies easy bruising Past Medical History Past Medical History: Coronary Artery Disease (CAD), CVA/TIA, Diabetes Mellitus, GERD/Reflux, Hyperlipidemia, Hypertension, Myocardial Infarction ([place]), Renal Disease, Rheumatoid Arthritis (RA) Additional Past Medical History / Comment(s): stroke apr 2017, migranes, diabetic neuropathy arms and legs, stage 2 kidney failure, PANCREATITIS, LEGALLY BLIND, enlarged prostate, trouble urinating Last Myocardial Infarction Date:: 2014? not sure History of Any Multi-Drug Resistant Organisms: None Reported Past Surgical History: No Surgical Hx Reported, Heart Catheterization With Stent Additional Past Surgical History / Comment(s): Prostrate surgery Past Anesthesia/Blood Transfusion Reactions: No Reported Reaction Additional Past Anesthesia/Blood Transfusion Reaction / Comm: never had anethesia Date of Last Stent Placement:: 2017 Past Psychological History: Anxiety, Depression Additional Psychological History / Comment(s): Pt resides with his spouse. He uses a quad cane or walker to ambulate. He is legally blind. He reads minimally with magnifying glass and signs his name only now. His spouse drives him to [place]. Smoking Status: Never smoker Past Alcohol Use History: None Reported Past Drug Use History: None Reported - Past Family History Mother Family Medical History: CVA/TIA, Diabetes Mellitus, Hypertension Additional Family Medical History / Comment(s): Mother is 77yrs old. Father Family Medical History: CVA/TIA, Diabetes Mellitus, Myocardial Infarction ([place]) Additional Family Medical History / Comment(s): Father of a [place] in his 50s. Medications and Allergies Home Medications Medication Instructions Recorded Confirmed Type Docusate Sodium [Dok] 100 mg PO BID 09/12/17 02/09/19 History Gabapentin 600 mg PO BID 09/12/17 02/09/19 History Glimepiride [Amaryl] 1 mg PO TID 09/12/17 02/09/19 History Lurasidone [Latuda] 40 mg PO HS 09/12/17 02/09/19 History sitaGLIPtin [Januvia] 50 mg PO QAM 09/12/17 02/09/19 History Pantoprazole [Protonix] 40 mg PO BID 11/05/17 02/09/19 History Tamsulosin [Flomax] 0.4 mg PO BID 11/05/17 02/09/19 History Atorvastatin [Lipitor] 80 mg PO HS tab 11/12/17 02/09/19 Rx Clopidogrel [Plavix] 75 mg PO HS 12/09/17 02/09/19 History Butalb/APAP/Caff 50-325-40Mg 1 tab PO Q4H PRN 12/12/18 02/09/19 History [Fioricet 50-325-40] Citalopram Hydrobromide [CeleXA] 60 mg PO DAILY 12/12/18 02/09/19 History Loratadine [Claritin] 10 mg PO DAILY 12/12/18 02/09/19 History Aspirin 81 mg PO HS 01/17/19 02/09/19 History Acetaminophen Tab [Tylenol] 650 mg PO Q6HR PRN tab 01/26/19 02/09/19 Rx Furosemide [Lasix] 40 mg PO BID@0900,1600 #60 tab 01/26/19 02/09/19 Rx Isosorbide Mononitrate ER [Imdur] 60 mg PO DAILY #30 tab.er.24h 01/26/19 02/09/19 Rx Metoprolol Succinate (ER) [Toprol 50 mg PO DAILY #30 tab 01/26/19 02/09/19 Rx Xl] amLODIPine [Norvasc] 5 mg PO BID #60 tab 01/26/19 02/09/19 Rx hydrALAZINE HCL [Apresoline] 100 mg PO QID #120 tab 01/26/19 02/09/19 Rx cloNIDine HCL [Catapres] 0.2 mg PO BID 02/03/19 02/09/19 History Allergies Allergy/AdvReac Type Severity Reaction Status Date / Time Iodinated Contrast- Oral and Allergy Nausea & Verified 02/03/19 15:30 IV Dye Vomiting Surgical - Exam Vital Signs Temp Pulse Resp BP Pulse Ox 97.9 F 75 17 142/64 98 02/09/19 22:55 02/09/19 22:55 02/09/19 22:55 02/09/19 22:55 02/09/19 22:55 - General well developed, well nourished, no distress - Eyes PERRL - ENT no hearing loss - Neck no masses - Respiratory normal expansion, normal respiratory effort - Cardiovascular Rhythm: irregularly irregular - Abdomen Abdomen: soft, non tender - Genitourinary Indwelling catheter, old blood in the bag. Tea colored urine in the tubing. - Neurologic normal coordination, normal sensation - Musculoskeletal normal posture - Psychiatric oriented to time, oriented to person, oriented to place, speech is normal, memory intact Results - Labs 02/10/19 00:09 Abnormal Lab Results - Last 24 Hours (Table) 02/10/19 02/10/19 02/10/19 Range/Units 00:09 03:07 06:34 WBC 11.1 H (3.8-10.6) k/uL RBC 2.80 L (4.30-5.90) m/uL Hgb 8.1 L (13.0-17.5) gm/dL Hct 24.3 L (39.0-53.0) % Plt Count 136 L (150-450) k/uL Neutrophils # 10.2 H (1.3-7.7) k/uL Lymphocytes # 0.5 L (1.0-4.8) k/uL POC Glucose (mg/dL) 186 H (75-99) mg/dL Crossmatch See Detail Assessment and Plan Assessment: Impression: That is post-TURP with gross hematuria. Chronic anemia indeterminate etiology Recommendations: At this point in time the amount of bleeding postop is not significant. I do not need to re-cystoscope the patient. I will cancel his appointment for tomorrow and see him on Thursday. By then his urine has cleared. He will obviously need lower endoscopy for is a chronic anemia. His hemoglobin was 8.6 preoperatively. From a urologic standpoint he can be discharged home at any time.
[2019-02-10 11:44] LABS: Glucose,Whole Blood 141 mg/dL (75-99)
[2019-02-10] MEDS: INSULIN ASPART (NovoLOG) 100 UNIT/ML VIAL SQ SCH ×3 (12:01→20:32)
[2019-02-10 12:08] LABS: HCT 20.7 % (39.0-53.0); MCH 28.8 pg (25.0-35.0); MCHC 32.8 g/dL (31.0-37.0); MCV 87.7 fL (80.0-100.0); Mean Platelet Volume 6.6; Platelet Count 129 k/uL (150-450); RBC 2.36 m/uL (4.30-5.90); RDW 13.9 % (11.5-15.5); WBC 11.2 k/uL (3.8-10.6)
[2019-02-10 12:12] LABS: HGB 6.8 gm/dL (13.0-17.5)
[2019-02-10] MEDS: SODIUM CHLORIDE 0.9% 1,000 ML IV SCH ×2 (15:54→22:16)
[2019-02-10 16:59] LABS: Glucose,Whole Blood 101 mg/dL (75-99)
[2019-02-10 18:53] LABS: Basophils % (A) 0 %; Eosinophils # (A) 0.1 k/uL (0-0.7); Eosinophils % (A) 1 %; HCT 25.1 % (39.0-53.0); HGB 8.1 gm/dL (13.0-17.5); Lymphocytes # (A) 1.8 k/uL (1.0-4.8); Lymphocytes % (A) 15 %; MCH 28.5 pg (25.0-35.0); MCV 88.9 fL (80.0-100.0); Mean Platelet Volume 6.6; Monocytes # (A) 0.7 k/uL (0-1.0); Monocytes % (A) 6 %; Neutrophils # (A) 9.1 k/uL (1.3-7.7); Neutrophils % (A) 76 %; Platelet Count 142 k/uL (150-450); RBC 2.83 m/uL (4.30-5.90)
--- NOTE | 2019-02-10 19:17 | P.HPIM ---
History of Present Illness H&P Date: 02/10/19 Chief Complaint: Blood in the urine Patient is a 53-year-old male with a known history of chronic anemia, history of CVA/TIA, hypertension, diabetes type 2, history of [place], coronary artery disease status post cardiac catheterization and medical management recommended, rheumat oid arthritis and diabetic neuropathy, legally blind and multiple other medical problems came to ER with complaints of blood in the urine after undergoing TURP yesterday morning. The patient does have a Garcia catheter in place. States this afternoon he noticed the urine was turning red. Patient is concerned because he does have history of anemia did have a blood transfusion recently. Patient de nies any weakness or dizziness. Denies any sweats, chest pain, or shortness of breath. Patient states he is having some burning discomfort to the surgical region. Patient denies any recent rash, shortness breath, chest pain, abdominal pain, nausea, vomiting, diarrhea, constipation, back pain, numbness, tingling, dizziness, weakness, headache, visual changes, or any other complaints. Review of Systems Constitutional: Patient denies any fever or chills . No generalized weakness or weight loss. Abdomen: Patient denied nausea vomiting and diarrhea and abdominal pain. Cardiovascular: Patient denies any chest pain or short of breath no palpitatio ns. Respiratory: patient denied any cough is from production. No shortness of breath Neurologic: Patient denied any numbness or tingling headache. Musculoskeletal: Patient denies any complaints of joint swelling or deformity. Skin: Negative Psychiatric: Negative Endocrine: No heat or cold intolerance. No recent weight gain. Genitourinary: No dysuria patient does have hematuria. All other 14 point ROS negative except the above Past Medical History Past Medical History: Coronary Artery Disease (CAD), CVA/TIA, Diabetes Mellitus, GERD/Reflux, Hyperlipidemia, Hypertension, Myocardial Infarction ([place]), Renal Disease, Rheumatoid Arthritis ([place]) Additional Past Medical History / Comment(s): stroke apr 2017, migranes, diab etic neuropathy arms and legs, stage 2 kidney failure, PANCREATITIS, LEGALLY BLIND, enlarged prostate, trouble urinating Last Myocardial Infarction Date:: 2014? not sure History of Any Multi-Drug Resistant Organisms: None Reported Past Surgical History: No Surgical Hx Reported, Heart Catheterization With Stent Additional Past Surgical History / Comment(s): Prostrate surgery Past Anesthesia/Blood Transfusion Reactions: No Reported Reaction Additional Past Anesthesia/Blood Transfusion Reaction / Comment(s): never had anethesia Date of Last Stent Placement:: 2017 Past Psychological History: Anxiety, Depression Additional Psychological History / Comment(s): Pt resides with his spouse. He uses a quad cane or walker to ambulate. He is legally blind. He reads minimally with magnifying glass and signs his name only now. His spouse drives him to [place]. Smoking Status: Never smoker Past Alcohol Use History: None Reported Past Drug Use History: None Reported - Past Family History Mother Family Medical History: CVA/TIA, Diabetes Mellitus, Hypertension Additional Family Medical History / Comment(s): Mother is 77yrs old. Father Family Medical History: CVA/TIA, Diabetes Mellitus, Myocardial Infarction ([place]) Additional Family Medical History / Comment(s): Father of a [place] in his 50s. Medications and Allergies Home Medications Medication Instructions Recorded Confirmed Type Docusate Sodium [Dok] 100 mg PO BID 09/12/17 02/09/19 History Gabapentin 600 mg PO BID 09/12/17 02/09/19 History Glimepiride [Amaryl] 1 mg PO TID 09/12/17 02/09/19 History Lurasidone [Latuda] 40 mg PO HS 09/12/17 02/09/19 History sitaGLIPtin [Januvia] 50 mg PO QAM 09/12/17 02/09/19 History Pantoprazole [Protonix] 40 mg PO BID 11/05/17 02/09/19 History Tamsulosin [Flomax] 0.4 mg PO BID 11/05/17 02/09/19 History Atorvastatin [Lipitor] 80 mg PO HS tab 11/12/17 02/09/19 Rx Clopidogrel [Plavix] 75 mg PO HS 12/09/17 02/09/19 History Butalb/APAP/Caff 50-325-40Mg 1 tab PO Q4H PRN 12/12/18 02/09/19 History [Fioricet 50-325-40] Citalopram Hydrobromide [CeleXA] 60 mg PO DAILY 12/12/18 02/09/19 History Loratadine [Claritin] 10 mg PO DAILY 12/12/18 02/09/19 History Aspirin 81 mg PO HS 01/17/19 02/09/19 History Acetaminophen Tab [Tylenol] 650 mg PO Q6HR PRN tab 01/26/19 02/09/19 Rx Furosemide [Lasix] 40 mg PO BID@0900,1600 #60 tab 01/26/19 02/09/19 Rx Isosorbide Mononitrate ER [Imdur] 60 mg PO DAILY #30 tab.er.24h 01/26/19 02/09/19 Rx Metoprolol Succinate (ER) [Toprol 50 mg PO DAILY #30 tab 01/26/19 02/09/19 Rx Xl] amLODIPine [Norvasc] 5 mg PO BID #60 tab 01/26/19 02/09/19 Rx hydrALAZINE HCL [Apresoline] 100 mg PO QID #120 tab 01/26/19 02/09/19 Rx cloNIDine HCL [Catapres] 0.2 mg PO BID 02/03/19 02/09/19 History Allergies Allergy/AdvReac Type Severity Reaction Status Date / Time Iodinated Contrast- Oral and Allergy Nausea & Verified 02/03/19 15:30 IV Dye Vomiting Physical Exam Vitals: Vital Signs Temp Pulse Pulse Resp BP BP Pulse Ox 02/10/19 07:10 98.2 F 76 18 144/73 97 02/10/19 05:00 79 18 02/10/19 04:59 98.2 F 79 18 153/73 97 02/10/19 04:00 98.7 F 78 18 136/74 98 02/10/19 01:57 73 18 130/65 98 02/09/19 22:55 97.9 F 75 17 142/64 98 Intake and Output 02/09/19 02/10/19 02/10/19 22:59 06:59 14:59 Other: Voiding Method Indwelling Catheter Weight 88.451 kg PHYSICAL EXAMINATION: Patient is lying in the bed comfortably, no acute distress, awake alert and jhonatan ented.. HEENT: Normocephalic. Neck is supple. Pupils reactive. Nostrils clear. Oral cavity is moist. Ears reveal no drainage. Neck reveals no JVD, carotid bruits, or thyromegaly. CHEST EXAMINATION: Trachea is central. Symmetrical expansion. Lung ricks clear to auscultation and percussion. CARDIAC: Normal S1, S2 with no gallops. No murmurs ABDOMEN: Soft. Bowel sounds normal. No organomegaly. No abdominal bruits. Garcia catheter with bright red blood clots. Extremities: reveal no edema. No clubbing or cyanosis Neurologically awake, alert, oriented x3 with well-coordinated movements. No f ocal deficits noted Skin: No rash or skin lesions. Psychiatric: Coperative. Nonsuicidal Musculoskeletal: No joint swelling or deformity. Normal range of motion. Results CBC & Chem 7: 02/10/19 18:26 Labs: Abnormal Lab Results - Last 24 Hours (Table) 02/10/19 02/10/19 02/10/19 Range/Units 00:09 03:07 06:34 WBC 11.1 H (3.8-10.6) k/uL RBC 2.80 L (4.30-5.90) m/uL Hgb 8.1 L (13.0-17.5) gm/dL Hct 24.3 L (39.0-53.0) % Plt Count 136 L (150-450) k/uL Neutrophils # 10.2 H (1.3-7.7) k/uL Lymphocytes # 0.5 L (1.0-4.8) k/uL POC Glucose (mg/dL) 186 H (75-99) mg/dL Crossmatch See Detail Thrombosis Risk Factor Assmnt - DVT/VTE Prophylaxis DVT/VTE Prophylaxis: Mechanical Prophylaxis ordered - Choose All That Apply Any of the Below Risk Factors Present?: Yes Each Factor Represents 1 point: Age 41-60 years, Obesity (BMI >25) Other Risk Factors: No Other congenital or acquired thrombophilia - If yes, enter type in comment: No Thrombosis Risk Factor Assessment Total Risk Factor Score: 2 Thrombosis Risk Factor Assessment Level: Low Risk Assessment and Plan Assessment: Hematuria related to TURP done on 02/09/2019 Acute blood loss anemia with hemoglobin of 6.8. Baseline around 8.6 Chronic anemia History of rheumatoid arthritis Coronary artery disease with history of stent. Medical management recommended. History of CVA/TIA Diabetes type 2 GERD Hypertension and hyperlipidemia History of [place] History of migraine headaches Diabetic peripheral neuropathy CK stage II Legally blind BPH Anxiety/depression Plan: Patient will be continued on IV hydration. Monitor H&H. Pt. will be transfused with 1 unit of PRBC. Avoid blood thinners. Continue to follow closely Patient was seen by urology and treatments no intervention at this time. Follow with in the clinic on Thursday. Concurrent management and further recommendations based on the clinical course. Prognosis is guarded. Time with Patient: Greater than 30
[2019-02-10 20:21] LABS: Glucose,Whole Blood 121 mg/dL (75-99)
[2019-02-10] MEDS: LURASIDONE 40 MG TAB PO SCH (20:47)
[2019-02-10] MEDS: ATORVASTATIN 80 MG TAB PO SCH (20:48)
[2019-02-10] MEDS: ASPIRIN 81 MG PO SCH (20:48)
--- NOTE | 2019-02-11 06:57 | P.PN ---
Subjective Progress Note Date: 02/11/19 The patient underwent a bipolar TURP on Thursday. He had some postoperative bleeding that landed him in the hospital yesterday. The urine is dark consistent with old blood. I suspect the blood immediately postoperatively and now is dissolving the clot that his intravesical. I discussed the option of repeat anesthetic endoscopy evacuation of clot versus allowing the clot to dissolve and pass without the anesthetic. I do not think he has any active bleeding. His hemoglobin is 8.1 after transfusion which is baseline. He chooses to allow the clot to dissolve on its own. I will continue to follow. Objective - Vital Signs Vital signs: Vital Signs Temp 97.2 F L 02/11/19 04:57 Pulse 63 02/11/19 04:57 Resp 18 02/11/19 04:57 BP 99/51 02/11/19 04:57 Pulse Ox 97 02/11/19 04:57 Intake & Output 02/10/19 02/10/19 02/11/19 06:59 18:59 06:59 Intake Total 1840 920 Output Total 500 1989 Balance 1340 -1070 Weight 88.451 kg Intake: Intake, IV Titration 800 800 Amount Sodium Chloride 0.9% 1, 800 800 000 ml @ 100 mls/hr IV . Q10H [facility] Rx#:[id number] Oral 420 120 Blood Product 620 Rc As-1 Unit 310 [id number] Output: Urine 500 1989 Other: Voiding Method Indwelling Catheter Indwelling Catheter Indwelling Catheter - Labs CBC & Chem 7: 02/10/19 18:26 Labs: Abnormal Lab Results - Last 24 Hours (Table) 02/10/19 02/10/19 02/10/19 Range/Units 03:07 11:08 11:42 WBC 11.2 H (3.8-10.6) k/uL RBC 2.36 L (4.30-5.90) m/uL Hgb 6.8 L* (13.0-17.5) gm/dL Hct 20.7 L (39.0-53.0) % Plt Count 129 L (150-450) k/uL Neutrophils # (1.3-7.7) k/uL POC Glucose (mg/dL) 141 H (75-99) mg/dL Crossmatch See Detail 02/10/19 02/10/19 02/10/19 Range/Units 16:58 18:26 20:20 WBC 12.0 H (3.8-10.6) k/uL RBC 2.83 L (4.30-5.90) m/uL Hgb 8.1 L (13.0-17.5) gm/dL Hct 25.1 L (39.0-53.0) % Plt Count 142 L (150-450) k/uL Neutrophils # 9.1 H (1.3-7.7) k/uL POC Glucose (mg/dL) 101 H 121 H (75-99) mg/dL Crossmatch
[2019-02-11 07:02] LABS: Glucose,Whole Blood 73 mg/dL (75-99)
[2019-02-11] MEDS: INSULIN ASPART (NovoLOG) 100 UNIT/ML VIAL SQ SCH ×4 (07:04→22:13)
[2019-02-11 07:52] LABS: Glucose,Whole Blood 89 mg/dL (75-99)
[2019-02-11] MEDS: DOCUSATE 100 MG CAP PO SCH ×2 (09:08→22:14)
[2019-02-11] MEDS: GABAPENTIN 300 MG CAP PO SCH ×2 (09:08→22:15)
[2019-02-11] MEDS: TAMSULOSIN 0.4 MG CAP.ER.24H PO SCH ×2 (09:09→22:15)
[2019-02-11] MEDS: PANTOPRAZOLE 40 MG TABLET PO SCH ×2 (09:09→18:06)
[2019-02-11] MEDS: SODIUM CHLORIDE 0.9% 1,000 ML IV SCH ×2 (09:09→22:12)
[2019-02-11] MEDS: CITALOPRAM HYDROBROMIDE 20 MG TAB PO SCH (09:09)
[2019-02-11] MEDS: GLIMEPIRIDE 1 MG TAB PO SCH ×3 (09:10→22:18)
[2019-02-11] MEDS: LINAGLIPTIN 5 MG TABLET PO SCH (09:10)
[2019-02-11] MEDS: LORATADINE 10 MG TAB PO SCH (09:11)
[2019-02-11] MEDS: cloNIDine HCL 0.2 MG TAB PO SCH (09:11)
[2019-02-11] MEDS: ISOSORBIDE MONONITRATE ER 60 MG TAB.ER.24H PO SCH (09:12)
[2019-02-11] MEDS: amLODIPine 5 MG TAB PO SCH ×2 (09:12→22:14)
[2019-02-11] MEDS: METOPROLOL SUCCINATE (ER) 50 MG TAB.ER.24H PO SCH (09:13)
[2019-02-11] MEDS: hydrALAZINE HCL 50 MG TAB PO SCH ×4 (09:13→22:14)
[2019-02-11 09:36] LABS: Potassium 4.6 mmol/L (3.5-5.1)
[2019-02-11 09:57] LABS: Basophils % (A) 0 %; Eosinophils # (A) 0.2 k/uL (0-0.7); Eosinophils % (A) 2 %; HCT 21.1 % (39.0-53.0); HGB 7.1 gm/dL (13.0-17.5); Lymphocytes # (A) 1.7 k/uL (1.0-4.8); Lymphocytes % (A) 20 %; MCH 29.3 pg (25.0-35.0); MCHC 33.6 g/dL (31.0-37.0); MCV 87.5 fL (80.0-100.0); Mean Platelet Volume 7.3; Monocytes # (A) 0.4 k/uL (0-1.0); Monocytes % (A) 5 %; Neutrophils # (A) 5.9 k/uL (1.3-7.7); Neutrophils % (A) 72 %; Platelet Count 135 k/uL (150-450); RBC 2.41 m/uL (4.30-5.90); RDW 14.4 % (11.5-15.5); WBC 8.3 k/uL (3.8-10.6)
[2019-02-11] MEDS: ACETAMINOPHEN TAB 325 MG TAB PO PRN (10:40)
[2019-02-11 12:07] LABS: Glucose,Whole Blood 96 mg/dL (75-99)
[2019-02-11] MEDS ORDERED: NITROGLYCERIN SL TABS 0.4 MG TAB SUBLINGUAL STA (15:09)
[2019-02-11] MEDS ORDERED: NITROGLYCERIN SL TABS 0.4 MG TAB SUBLINGUAL PRN (15:09)
[2019-02-11 17:44] LABS: Glucose,Whole Blood 164 mg/dL (75-99)
[2019-02-11 18:36] LABS: HCT 24.4 % (39.0-53.0); MCH 28.5 pg (25.0-35.0); MCHC 32.9 g/dL (31.0-37.0); MCV 86.9 fL (80.0-100.0); Mean Platelet Volume 7.2; Platelet Count 139 k/uL (150-450); RDW 14.5 % (11.5-15.5); WBC 9.8 k/uL (3.8-10.6)
[2019-02-11 20:12] LABS: Glucose,Whole Blood 225 mg/dL (75-99)
[2019-02-11 20:53] LABS: Basophils % (A) 0 %; Eosinophils # (A) 0.2 k/uL (0-0.7); Eosinophils % (A) 2 %; HGB 7.5 gm/dL (13.0-17.5); Lymphocytes # (A) 1.5 k/uL (1.0-4.8); Lymphocytes % (A) 15 %; MCH 27.3 pg (25.0-35.0); MCHC 31.3 g/dL (31.0-37.0); MCV 87.2 fL (80.0-100.0); Mean Platelet Volume 6.9; Monocytes # (A) 0.7 k/uL (0-1.0); Monocytes % (A) 7 %; Neutrophils # (A) 7.1 k/uL (1.3-7.7); Neutrophils % (A) 74 %; Platelet Count 134 k/uL (150-450); RBC 2.75 m/uL (4.30-5.90); RDW 14.6 % (11.5-15.5); WBC 9.6 k/uL (3.8-10.6)
[2019-02-11] MEDS ORDERED: SODIUM CHLORIDE 0.9% 500 ML 500 ML IV ONE (21:40)
[2019-02-11] MEDS: ATORVASTATIN 80 MG TAB PO SCH (22:14)
[2019-02-11] MEDS: LURASIDONE 40 MG TAB PO SCH (22:14)
[2019-02-11] MEDS: cloNIDine HCL 0.1 MG TAB PO SCH (22:15)
[2019-02-11] MEDS: ASPIRIN 81 MG PO SCH (22:15)
[2019-02-11] MEDS: POLYETHYLENE GLYCOL 3350 17 GM POWD.PACK PO SCH (22:16)
--- NOTE | 2019-02-11 23:38 | P.PN ---
Subjective Progress Note Date: 02/11/19 Principal diagnosis: Hematuria status post TURP Patient is a 53-year-old male with a known history of chronic anemia, history of CVA/TIA, hypertension, diabetes type 2, history of [place], coronary artery disease status post cardiac catheterization and medical management recommended, rheumatoid arthritis and diabetic neuropathy, legally blind and multiple other medical problems came to ER with complaints of blood in the urine after undergoing TURP yesterday morning. The patient does have a Garcia catheter in place. States this afternoon he noticed the urine was turning red. Patient is concerned because he does have history of anemia did have a blood transfusion recently. Patient denies any weakness or dizziness. Denies any sweats, chest pain, or shortness of breath. Patient states he is having some burning discomfort to the surgical region. Patient denies any recent rash, shortness breath, chest pain, abdominal pain, nausea, vomiting, diarrhea, constipation, back pain, numbness, tingling, dizziness, weakness, headache, visual changes, or any other complaints. \ 02/11/2019 Patient is still having dark urine and blood clots. Patient was also having urinary retention. Garcia catheter was changed. Hemoglobin did drop was 7.1 today. Hemoglobin was 8.1 post transfusion yesterday. Patient will be getting 1 more unit of PRBC today. Otherwise denied any complaints of chest pain or shortness of breath. No nausea vomiting or abdominal pain. Current medications reviewed. Objective - Vital Signs Vital signs: Vital Signs Temp 97.5 F L 02/11/19 15:31 Pulse 65 02/11/19 15:31 Resp 14 02/11/19 15:31 BP 138/71 02/11/19 15:31 Pulse Ox 96 02/11/19 14:46 Intake & Output 02/10/19 02/11/19 02/11/19 18:59 06:59 18:59 Intake Total 0297 540 5440 Output Total 500 1989 2750 Balance 1340 -1070 -1350 Intake: Intake, IV Titration 800 800 800 Amount Sodium Chloride 0.9% 1, 800 800 800 000 ml @ 100 mls/hr IV . Q10H [facility] Rx#:[id number] Oral 420 120 600 Blood Product 620 0 Rc As-1 Unit 0 [id number] Rc As-1 Unit 310 [id number] Output: Urine 500 1989 2750 Other: Voiding Method Indwelling Catheter Indwelling Catheter Indwelling Catheter - Exam PHYSICAL EXAMINATION: Patient is lying in the bed comfortably, no acute distress, awake alert and oriented.. HEENT: Normocephalic. Neck is supple. Pupils reactive. Nostrils clear. Oral cav ity is moist. Ears reveal no drainage. Neck reveals no JVD, carotid bruits, or thyromegaly. CHEST EXAMINATION: Trachea is central. Symmetrical expansion. Lung ricks clear to auscultation and percussion. CARDIAC: Normal S1, S2 with no gallops. No murmurs ABDOMEN: Soft. Bowel sounds normal. No organomegaly. No abdominal bruits. Garcia catheter is in place with dark red colored urine Extremities: reveal no edema. No clubbing or cyanosis Neurologically awake, alert, oriented x3 with well-coordinated movements. No focal deficits noted Skin: No rash or skin lesions. Psychiatric: Coperative. Nonsuicidal Musculoskeletal: No joint swelling or deformity. Normal range of motion. - Labs CBC & Chem 7: 02/11/19 20:33 02/11/19 08:19 Labs: Abnormal Lab Results - Last 24 Hours (Table) 02/10/19 02/10/19 02/10/19 Range/Units 03:07 18:26 20:20 WBC 12.0 H (3.8-10.6) k/uL RBC 2.83 L (4.30-5.90) m/uL Hgb 8.1 L (13.0-17.5) gm/dL Hct 25.1 L (39.0-53.0) % Plt Count 142 L (150-450) k/uL Neutrophils # 9.1 H (1.3-7.7) k/uL BUN (9-20) mg/dL Creatinine (0.66-1.25) mg/dL Glucose (74-99) mg/dL POC Glucose (mg/dL) 121 H (75-99) mg/dL Calcium (8.4-10.2) mg/dL Crossmatch See Detail 02/11/19 02/11/19 02/11/19 Range/Units 07:00 08:19 08:19 WBC (3.8-10.6) k/uL RBC 2.41 L (4.30-5.90) m/uL Hgb 7.1 L (13.0-17.5) gm/dL Hct 21.1 L (39.0-53.0) % Plt Count 135 L (150-450) k/uL Neutrophils # (1.3-7.7) k/uL BUN 47 H (9-20) mg/dL Creatinine 2.95 H (0.66-1.25) mg/dL Glucose 103 H (74-99) mg/dL POC Glucose (mg/dL) 73 L (75-99) mg/dL Calcium 8.0 L (8.4-10.2) mg/dL Crossmatch 02/11/19 Range/Units 17:38 WBC (3.8-10.6) k/uL RBC (4.30-5.90) m/uL Hgb (13.0-17.5) gm/dL Hct (39.0-53.0) % Plt Count (150-450) k/uL Neutrophils # (1.3-7.7) k/uL BUN (9-20) mg/dL Creatinine (0.66-1.25) mg/dL Glucose (74-99) mg/dL POC Glucose (mg/dL) 164 H (75-99) mg/dL Calcium (8.4-10.2) mg/dL Crossmatch Assessment and Plan Assessment: Hematuria related to TURP done on 02/09/2019 Acute blood loss anemia with hemoglobin of 6.8 on admission. Baseline around 8.6 Chronic anemia History of rheumatoid arthritis Coronary artery disease with history of stent. Medical management recommended. History of CVA/TIA Diabetes type 2 GERD Hypertension and hyperlipidemia History of [place] History of migraine headaches Diabetic peripheral neuropathy CK stage II Legally blind BPH Anxiety/depression Plan: Patient will be continued on IV hydration. Monitor H&H. Pt. patient was transfused with second unit of PRBC today. Avoid blood thinners. Continue to follow closely Patient was seen by urology and treatments no intervention at this time. Follow with in the clinic on Thursday. Concurrent management and further recommendations based on the clinical course. Prognosis is guarded. Time with Patient: Greater than 30
[2019-02-12 07:17] LABS: Glucose,Whole Blood 90 mg/dL (75-99)
[2019-02-12] MEDS: INSULIN ASPART (NovoLOG) 100 UNIT/ML VIAL SQ SCH ×4 (07:49→20:32)
[2019-02-12 08:29] LABS: Calcium 7.9 mg/dL (8.4-10.2); Potassium 4.3 mmol/L (3.5-5.1)
--- NOTE | 2019-02-12 10:45 | P.PN ---
Subjective Progress Note Date: 02/12/19 Principal diagnosis: Patient is POD #3, s/p plasma button electrode vaporization of the prostate. The Garcia catheter remains in place. Irrigation of the catheter has been requir ed on several occasions due to clots. The patient currently reports mild suprapubic and penile discomfort. I irrigated the Garcia catheter, removing several small clots which were not plugging the catheter. There does not appear to be any significant active bleeding. The patient denies chest pain, dyspnea, and dizziness. Objective - Vital Signs Vital signs: Vital Signs Temp 97.8 F 02/12/19 05:03 Pulse 63 02/12/19 05:03 Resp 18 02/12/19 05:03 BP 124/68 02/12/19 05:03 Pulse Ox 96 02/12/19 05:03 Intake & Output 02/11/19 02/12/19 02/12/19 18:59 06:59 18:59 Intake Total 1710 2340 Output Total 2750 1850 Balance -1040 490 Intake: Intake, IV Titration 800 1500 Amount Sodium Chloride 0.9% 1, 800 1000 000 ml @ 100 mls/hr IV . Q10H [facility] Rx#:[id number] Sodium Chloride 0.9% 500 500 ml 500 ml @ 999 mls/hr IV .Q31M [facility] Rx#:[id number] Oral 600 840 Blood Product 310 Rc As-1 Unit 310 [id number] Output: Urine 2750 1850 Uretheral (Garcia) 650 Other: Voiding Method Indwelling Catheter Indwelling Catheter - Constitutional General appearance: Present: cooperative, no acute distress - Gastrointestinal General gastrointestinal: Present: soft. Absent: distended, tenderness - Psychiatric Psychiatric: Present: A&O x's 3 - Labs CBC & Chem 7: 02/11/19 20:33 02/12/19 06:48 Labs: Abnormal Lab Results - Last 24 Hours (Table) 02/10/19 02/11/19 02/11/19 Range/Units 03:07 17:38 18:21 RBC 2.80 L (4.30-5.90) m/uL Hgb 8.0 L (13.0-17.5) gm/dL Hct 24.4 L (39.0-53.0) % Plt Count 139 L (150-450) k/uL Chloride (98-107) mmol/L BUN (9-20) mg/dL Creatinine (0.66-1.25) mg/dL POC Glucose (mg/dL) 164 H (75-99) mg/dL Calcium (8.4-10.2) mg/dL Crossmatch See Detail 02/11/19 02/11/19 02/12/19 Range/Units 20:10 20:33 06:48 RBC 2.75 L (4.30-5.90) m/uL Hgb 7.5 L (13.0-17.5) gm/dL Hct 24.0 L (39.0-53.0) % Plt Count 134 L (150-450) k/uL Chloride 111 H (98-107) mmol/L BUN 38 H (9-20) mg/dL Creatinine 2.34 H (0.66-1.25) mg/dL POC Glucose (mg/dL) 225 H (75-99) mg/dL Calcium 7.9 L (8.4-10.2) mg/dL Crossmatch Assessment and Plan (1) Hematuria Current Visit: Yes Status: Acute Code(s): R31.9 - HEMATURIA, UNSPECIFIED SNOMED Code(s): 41117263 Plan: Continue catheter irrigation when necessary. Await CBC results.
[2019-02-12] MEDS: SODIUM CHLORIDE 0.9% 1,000 ML IV SCH ×2 (10:53→17:44)
[2019-02-12 11:33] LABS: Glucose,Whole Blood 111 mg/dL (75-99)
--- NOTE | 2019-02-12 11:45 | P.CRDCN ---
History of Present Illness History of present illness: This is a pleasant 53-year-old male past medical history significant for coronary artery disease, diabetes mellitus, hypertension, dyslipidemia, CVA and chronic kidney disease. We have been asked to see him in consultation secondary to chest discomfort. He follows in the office with Dr. Church. He is currently admitted into the hospital secondary to hematuria status post TURP with anemia requiring blood transfusion. He is seen and examined resting comfortably laying flat in bed in no acute distress. He states yesterday while resting in bed he felt a heavy sensation in the midsternal region. This lasted for about 30 minutes and ultimately subsided on its own. He states he has chest discomfort of this nature very frequently and it typically subsides on its own. He recently underwent cardiac catheterization earlier this month revealing a patent stent in the mid LAD and a chronic total occlusion of RCA that is similar to previous catheterization with no changes noted. Recent echocardiogram revealed preserved LV systolic function with ejection fraction 55% and mild mitral regurgitation. EKG reveals sinus mechanism with nonspecific abnormalities noted ST or T-wave changes. Laboratory data reviewed, WBC 9.6, hemoglobin 7.5, platelets 134, sodium 141, potassium 4.3, creatinine 2.34, GFR 31, cardiac enzymes negative times one. Current cardiac medications include Imdur 60 mg daily, aspirin 81 mg daily, clonidine 0.1 mg twice a day, atorvastatin 80 mg daily, Plavix 75 mg daily, Lasix 40 mg twice a day, Toprol 50 mg daily, amlodipine 5 mg twice a day and hydralazine 100 mg 4 times a day. Plavix and aspirin have been held since admission. At the time of my exam: CONSTITUTIONAL: Denies fever. Denies chills. EYES: Denies blurred vision. Denies vision changes. Denies eye pain. EARS, NOSE, MOUTH & THROAT: Denies headache. Denies sore throat. Denies ear pain. CARDIOVASCULAR: Denies chest pain. Denies shortness of breath. Denies orthopnea. Denies PND. Denies palpitations. RESPIRATORY: Denies cough. GASTROINTESTINAL: Denies abdominal pain. Denies diarrhea. Denies constipation. Denies nausea. Denies vomiting. MUSCULOSKELETAL: Denies myalgias. INTEGUMENTARY: Denies pruitis. Denies rash. NEUROLOGIC: Denies numbness. Denies tingling. Denies weakness. PSYCHIATRIC: Denies anxiety. Denies depression. ENDOCRINE: Denies fatigue. Denies weight change. Denies polydipsia. Denies polyurina. GENITOURINARY: Denies burning, hematuria or urgency with micturation. HEMATOLOGIC: Denies history of anemia. Denies bleeding. Blood pressure 124/68 heart rate 63 afebrile maintaining oxygen saturation on room air GENERAL: This is a 53-year-old male in no apparent distress at the time of my examination. HEENT: Head is atraumatic, normocephalic. Pupils are equal, round. Sclerae anicteric. Conjunctivae are clear. Mucous membranes of the mouth are moist. Neck is supple. There is no jugular venous distention. No carotid bruit is heard. LUNGS: Clear to auscultation no wheezes, rales or rhonchi. No chest wall tenderness is noted on palpation or with deep breathing. HEART: Regular rate and rhythm without murmurs, rubs or gallops. S1 and S2 heard. ABDOMEN: Soft, nontender. Bowel sounds are heard. No organomegaly noted. EXTREMITIES: No evidence of peripheral edema and no calf tenderness noted. VASCULAR: Radial and dorsalis pedis pulses palpated, no evidence of clubbing. NEUROLOGIC: Patient is awake, alert and oriented x3. ASSESSMENT Chest pain, atypical. Suggestive of stable angina. On appropriate cardiac medications. Recent catheterization revealed no progression of disease. History of coronary artery disease Hematuria status post TURP Anemia requiring blood transfusion Hypertension Dyslipidemia CVA Chronic kidney disease PLAN Obtain second troponin to rule out an acute coronary event. Ongoing medical management of hematuria and anemia. Continue current medical regimen. Follow up with Dr. Church upon discharge. Thank you kindly for this consultation. Nurse Practitioner note has been reviewed, I agree with a documented findings and plan of care. Patient was seen and examined. Past Medical History Past Medical History: Coronary Artery Disease (CAD), CVA/TIA, Diabetes Mellitus, GERD/Reflux, Hyperlipidemia, Hypertension, Myocardial Infarction (SC), Renal Disease, Rheumatoid Arthritis (RA) Additional Past Medical History / Comment(s): stroke apr 2017, migranes, diabetic neuropathy arms and legs, stage 2 kidney failure, PANCREATITIS, LEGALLY BLIND, enlarged prostate, trouble urinating Last Myocardial Infarction Date:: 2014? not sure History of Any Multi-Drug Resistant Organisms: None Reported Past Surgical History: No Surgical Hx Reported, Heart Catheterization With Stent Additional Past Surgical History / Comment(s): Prostrate surgery Past Anesthesia/Blood Transfusion Reactions: No Reported Reaction Additional Past Anesthesia/Blood Transfusion Reaction / Comment(s): never had anethesia Date of Last Stent Placement:: 2017 Past Psychological History: Anxiety, Depression Additional Psychological History / Comment(s): Pt resides with his spouse. He uses a quad cane or walker to ambulate. He is legally blind. He reads minimally with magnifying glass and signs his name only now. His spouse drives him to [employer]. Smoking Status: Never smoker Past Alcohol Use History: None Reported Past Drug Use History: None Reported - Past Family History Mother Family Medical History: CVA/TIA, Diabetes Mellitus, Hypertension Additional Family Medical History / Comment(s): Mother is 77yrs old. Father Family Medical History: CVA/TIA, Diabetes Mellitus, Myocardial Infarction (SC) Additional Family Medical History / Comment(s): Father of a SC in his 50s. Medications and Allergies Home Medications Medication Instructions Recorded Confirmed Type Docusate Sodium [Dok] 100 mg PO BID 09/12/17 02/09/19 History Gabapentin 600 mg PO BID 09/12/17 02/09/19 History Glimepiride [Amaryl] 4 mg PO DAILY 09/12/17 02/11/19 History Lurasidone [Latuda] 40 mg PO HS 09/12/17 02/09/19 History Pantoprazole [Protonix] 40 mg PO BID 11/05/17 02/09/19 History Tamsulosin [Flomax] 0.4 mg PO BID 11/05/17 02/09/19 History Atorvastatin [Lipitor] 80 mg PO HS tab 11/12/17 02/09/19 Rx Clopidogrel [Plavix] 75 mg PO HS 12/09/17 02/09/19 History Butalb/APAP/Caff 50-325-40Mg 1 tab PO Q4H PRN 12/12/18 02/09/19 History [Fioricet 50-325-40] Citalopram Hydrobromide [CeleXA] 60 mg PO DAILY 12/12/18 02/09/19 History Loratadine [Claritin] 10 mg PO DAILY 12/12/18 02/09/19 History Aspirin 81 mg PO HS 01/17/19 02/09/19 History Acetaminophen Tab [Tylenol] 650 mg PO Q6HR PRN tab 01/26/19 02/09/19 Rx Furosemide [Lasix] 40 mg PO BID@0900,1600 #60 tab 01/26/19 02/09/19 Rx Isosorbide Mononitrate ER [Imdur] 60 mg PO DAILY #30 tab.er.24h 01/26/19 02/09/19 Rx Metoprolol Succinate (ER) [Toprol 50 mg PO DAILY #30 tab 01/26/19 02/09/19 Rx XL] amLODIPine [Norvasc] 5 mg PO BID #60 tab 01/26/19 02/09/19 Rx hydrALAZINE HCL [Apresoline] 100 mg PO QID #120 tab 01/26/19 02/09/19 Rx cloNIDine HCL [Catapres] 0.1 mg PO BID tab 02/11/19 Rx Allergies Allergy/AdvReac Type Severity Reaction Status Date / Time Iodinated Contrast- Oral and Allergy Nausea & Verified 02/03/19 15:30 IV Dye Vomiting Physical Exam Vitals: Vital Signs Temp Pulse Pulse Resp BP BP Pulse Ox 02/12/19 05:03 97.8 F 63 18 124/68 96 02/12/19 00:00 71 18 02/11/19 21:09 98.5 F 71 18 144/70 96 02/11/19 18:00 98 F 67 16 148/71 02/11/19 15:31 97.5 F L 65 14 138/71 02/11/19 15:26 97.5 F L 65 14 138/71 02/11/19 14:56 97.5 F L 69 14 128/69 02/11/19 14:46 97.4 F L 66 14 123/69 96 02/11/19 12:56 97.7 F 66 20 135/70 99 Intake and Output 02/11/19 02/12/19 02/12/19 22:59 06:59 14:59 Intake Total 2050 600 Output Total 950 1850 Balance 1100 -1250 Intake: Intake, IV Titration 900 600 Amount Sodium Chloride 0.9% 1, 400 600 000 ml @ 100 mls/hr IV . Q10H [facility] Rx#:[id number] Sodium Chloride 0.9% 500 500 ml 500 ml @ 999 mls/hr IV .Q31M ONE Rx#:[id number] Oral 840 0 Blood Product 310 Rc As-1 Unit 310 [id number] Output: Urine 950 1850 Uretheral (Garcia) 650 Other: Voiding Method Indwelling Catheter Indwelling Catheter Results 02/11/19 20:33 02/12/19 06:48 Cardiac Enzymes 02/11/19 Range/Units 18:19 Troponin I <0.012 (0.000-0.034) ng/mL CBC 02/11/19 02/11/19 Range/Units 18:21 20:33 WBC 9.8 9.6 (3.8-10.6) k/uL RBC 2.80 L 2.75 L (4.30-5.90) m/uL Hgb 8.0 L 7.5 L (13.0-17.5) gm/dL Hct 24.4 L 24.0 L (39.0-53.0) % Plt Count 139 L 134 L (150-450) k/uL Comprehensive Metabolic Panel 02/12/19 Range/Units 06:48 Sodium 141 (137-145) mmol/L Potassium 4.3 (3.5-5.1) mmol/L Chloride 111 H (98-107) mmol/L Carbon Dioxide 25 (22-30) mmol/L BUN 38 H (9-20) mg/dL Creatinine 2.34 H (0.66-1.25) mg/dL Glucose 79 (74-99) mg/dL Calcium 7.9 L (8.4-10.2) mg/dL Current Medications Generic Name Dose Route Start Last Admin Trade Name Freq PRN Reason Stop Dose Admin Acetaminophen 650 mg 02/10/19 08:08 02/11/19 10:40 Tylenol Tab PO 650 mg Q6HR PRN Administration Fever and/ or Pain Amlodipine Besylate 5 mg 02/10/19 09:00 02/11/19 22:14 Norvasc PO 5 mg BID JAD Administration Aspirin 81 mg 02/10/19 21:00 02/11/19 22:15 Aspirin PO Not Given HS JAD Atorvastatin Calcium 80 mg 02/10/19 21:00 02/11/19 22:14 Lipitor PO 80 mg HS JAD Administration Citalopram Hydrobromide 60 mg 02/10/19 09:00 02/11/19 09:09 Celexa PO 60 mg DAILY J[facility] Administration Clonidine 0.1 mg 02/11/19 21:00 02/11/19 22:15 Catapres PO 0.1 mg BID JAD Administration Docusate Sodium 100 mg 02/10/19 09:00 02/11/19 22:14 Colace PO 100 mg BID JAD Administration Gabapentin 600 mg 02/10/19 09:00 02/11/19 22:15 Neurontin PO 600 mg BID JAD Administration Glimepiride 1 mg 02/10/19 09:00 02/11/19 22:18 Amaryl PO 1 mg TID JAD Administration Hydralazine HCl 100 mg 02/10/19 09:00 02/11/19 22:14 Apresoline PO 100 mg QID JAD Administration Sodium Chloride 1,000 mls @ 100 mls/hr 02/10/19 13:45 02/11/19 22:12 Saline 0.9% IV 100 mls/hr .Q10H [facility] Administration Insulin Aspart 0 unit 02/10/19 12:30 02/12/19 07:49 Novolog SQ Not Given ACHS [facility] Protocol Isosorbide Mononitrate 60 mg 02/10/19 09:00 02/11/19 09:12 Imdur PO 60 mg DAILY [facility] Administration Linagliptin 5 mg 02/10/19 09:00 02/11/19 09:10 Tradjenta PO 5 mg QAM [facility] Administration Loratadine 10 mg 02/10/19 09:00 02/11/19 09:11 Claritin PO 10 mg DAILY [facility] Administration Lurasidone HCl 40 mg 02/10/19 21:00 02/11/19 22:14 Latuda PO 40 mg HS JAD Administration Metoprolol Succinate 50 mg 02/10/19 09:00 02/11/19 09:13 Toprol Xl PO 50 mg DAILY [facility] Administration Naloxone HCl 0.2 mg 02/10/19 03:02 Narcan IV Q2M PRN Opioid Reversal Nitroglycerin 0.4 mg 02/11/19 15:09 Nitrostat SUBLINGUAL Q5M PRN Chest Pain Ondansetron HCl 4 mg 02/10/19 03:02 Zofran IVP Q8HR PRN Nausea And Vomiting Pantoprazole Sodium 40 mg 02/10/19 09:00 02/11/19 18:06 Protonix PO 40 mg AC-BID [facility] Administration Polyethylene Glycol 17 gm 02/11/19 21:00 02/11/19 22:16 Miralax PO Not Given HS JAD Tamsulosin HCl 0.4 mg 02/10/19 09:00 02/11/19 22:15 Flomax PO 0.4 mg BID JAD Administration Intake and Output 02/11/19 02/12/19 02/12/19 22:59 06:59 14:59 Intake Total 2050 600 Output Total 950 1850 Balance 1100 -1250 Intake: Intake, IV Titration 900 600 Amount Sodium Chloride 0.9% 1, 400 600 000 ml @ 100 mls/hr IV . Q10H [facility] Rx#:[id number] Sodium Chloride 0.9% 500 500 ml 500 ml @ 999 mls/hr IV .Q31M ONE Rx#:[id number] Oral 840 0 Blood Product 310 Rc As-1 Unit 310 [id number] Output: Urine 950 1850 Uretheral (Garcia) 650 Other: Voiding Method Indwelling Catheter Indwelling Catheter 02/11/19 20:33 02/12/19 06:48
[2019-02-12] MEDS: amLODIPine 5 MG TAB PO SCH ×2 (12:07→20:28)
[2019-02-12] MEDS: hydrALAZINE HCL 50 MG TAB PO SCH ×4 (12:07→22:35)
[2019-02-12] MEDS: CITALOPRAM HYDROBROMIDE 20 MG TAB PO SCH (12:07)
[2019-02-12] MEDS: cloNIDine HCL 0.1 MG TAB PO SCH ×2 (12:08→20:29)
[2019-02-12] MEDS: GABAPENTIN 300 MG CAP PO SCH ×2 (12:08→20:29)
[2019-02-12] MEDS: LORATADINE 10 MG TAB PO SCH (12:08)
[2019-02-12] MEDS: PANTOPRAZOLE 40 MG TABLET PO SCH ×2 (12:08→17:42)
[2019-02-12] MEDS: METOPROLOL SUCCINATE (ER) 50 MG TAB.ER.24H PO SCH (12:08)
[2019-02-12] MEDS: TAMSULOSIN 0.4 MG CAP.ER.24H PO SCH ×2 (12:08→20:29)
[2019-02-12] MEDS: ISOSORBIDE MONONITRATE ER 60 MG TAB.ER.24H PO SCH (12:09)
[2019-02-12] MEDS: DOCUSATE 100 MG CAP PO SCH ×2 (12:11→20:29)
[2019-02-12 12:50] LABS: Basophils % (A) 0 %; Eosinophils # (A) 0.2 k/uL (0-0.7); Eosinophils % (A) 2 %; HCT 23.2 % (39.0-53.0); HGB 7.7 gm/dL (13.0-17.5); Lymphocytes # (A) 0.9 k/uL (1.0-4.8); Lymphocytes % (A) 11 %; MCH 28.7 pg (25.0-35.0); MCHC 33.2 g/dL (31.0-37.0); MCV 86.2 fL (80.0-100.0); Mean Platelet Volume 6.5; Monocytes # (A) 0.6 k/uL (0-1.0); Monocytes % (A) 7 %; Neutrophils % (A) 77 %; Platelet Count 124 k/uL (150-450); RBC 2.69 m/uL (4.30-5.90); RDW 14.6 % (11.5-15.5); WBC 7.7 k/uL (3.8-10.6)
[2019-02-12] MEDS: LINAGLIPTIN 5 MG TABLET PO SCH (13:23)
[2019-02-12] MEDS: GLIMEPIRIDE 1 MG TAB PO SCH ×3 (13:23→22:35)
[2019-02-12 17:06] LABS: Glucose,Whole Blood 216 mg/dL (75-99)
[2019-02-12] MEDS: ONDANSETRON 4 MG/2 ML VIAL IVP PRN (17:42)
[2019-02-12] MEDS: ACETAMINOPHEN TAB 325 MG TAB PO PRN (17:57)
[2019-02-12 20:28] LABS: Glucose,Whole Blood 88 mg/dL (75-99)
[2019-02-12] MEDS: POLYETHYLENE GLYCOL 3350 17 GM POWD.PACK PO SCH (20:29)
[2019-02-12] MEDS: ATORVASTATIN 80 MG TAB PO SCH (20:29)
[2019-02-12] MEDS: LURASIDONE 40 MG TAB PO SCH (22:36)
--- NOTE | 2019-02-13 06:37 | P.PN ---
Progress Note - Text Progress Note Date: 02/13/19 Mr. Tinajero is comfortable. He is afebrile with stable vital signs. The catheter is draining urine which is somewhat bloody, without clots. He did not have any catheter related issues throughout the day yesterday or overnight. His catheter was irrigated once overnight, and no clots were retrieved. He will likely be discharged home today with the Garcia catheter, though no decision will be made until the CBC result is back.
[2019-02-13] MEDS: SODIUM CHLORIDE 0.9% 1,000 ML IV SCH ×3 (07:03→22:49)
[2019-02-13 07:23] LABS: Glucose,Whole Blood 121 mg/dL (75-99)
[2019-02-13 07:47] LABS: Basophils % (A) 0 %; Eosinophils # (A) 0.2 k/uL (0-0.7); Eosinophils % (A) 3 %; Lymphocytes # (A) 1.2 k/uL (1.0-4.8); Lymphocytes % (A) 20 %; MCH 29.1 pg (25.0-35.0); MCHC 33.7 g/dL (31.0-37.0); MCV 86.4 fL (80.0-100.0); Mean Platelet Volume 6.9; Monocytes # (A) 0.4 k/uL (0-1.0); Monocytes % (A) 7 %; Neutrophils # (A) 3.9 k/uL (1.3-7.7); Neutrophils % (A) 67 %; Platelet Count 105 k/uL (150-450); RDW 14.9 % (11.5-15.5); WBC 5.8 k/uL (3.8-10.6)
[2019-02-13 07:53] LABS: Calcium 7.8 mg/dL (8.4-10.2); Potassium 4.5 mmol/L (3.5-5.1)
[2019-02-13 07:58] LABS: HCT 19.8 % (39.0-53.0); HGB 6.7 gm/dL (13.0-17.5)
[2019-02-13] MEDS ORDERED: DARBEPOETIN ALFA 100MCG/0.5ML SYRINGE SQ SCH (09:00)
[2019-02-13] MEDS ORDERED: FUROSEMIDE 10 MG/ML 2 ML VIAL IV ONE ×2 (09:49→18:00)
[2019-02-13] MEDS: INSULIN ASPART (NovoLOG) 100 UNIT/ML VIAL SQ SCH ×4 (09:50→20:45)
[2019-02-13] MEDS: cloNIDine HCL 0.1 MG TAB PO SCH ×2 (11:09→20:43)
[2019-02-13] MEDS: TAMSULOSIN 0.4 MG CAP.ER.24H PO SCH ×2 (11:10→20:43)
[2019-02-13] MEDS: PANTOPRAZOLE 40 MG TABLET PO SCH ×2 (11:10→17:55)
[2019-02-13] MEDS: LORATADINE 10 MG TAB PO SCH (11:10)
[2019-02-13] MEDS: amLODIPine 5 MG TAB PO SCH ×2 (11:10→20:44)
[2019-02-13] MEDS: hydrALAZINE HCL 50 MG TAB PO SCH ×4 (11:10→22:49)
[2019-02-13] MEDS: GABAPENTIN 300 MG CAP PO SCH ×2 (11:10→20:44)
[2019-02-13] MEDS: DOCUSATE 100 MG CAP PO SCH ×2 (11:10→20:43)
[2019-02-13] MEDS: CITALOPRAM HYDROBROMIDE 20 MG TAB PO SCH (11:10)
[2019-02-13 11:34] LABS: Glucose,Whole Blood 170 mg/dL (75-99)
[2019-02-13] MEDS: GLIMEPIRIDE 1 MG TAB PO SCH ×3 (13:51→22:48)
[2019-02-13] MEDS: METOPROLOL SUCCINATE (ER) 50 MG TAB.ER.24H PO SCH (13:51)
[2019-02-13] MEDS: ISOSORBIDE MONONITRATE ER 60 MG TAB.ER.24H PO SCH (13:52)
--- NOTE | 2019-02-13 14:04 | P.PN ---
Subjective Progress Note Date: 02/13/19 The patient last Thursday underwent a bipolar plasma button for outlet obstruction in urine retention. He had postoperative bleeding. He is required an indwelling catheter. The urine is finally clearing. He had anemia preoperatively of indeterminate etiology. How much that is contributed to this postoperative situation is indeterminate. I have to assume he had some surgical bleeding but whether there is a condition causing the anemia that would aggravate or make the postsurgical bleeding increases indeterminate. Regardless he is seen Dr. Rankin for this. From a urologic standpoint he can be discharged home tomorrow. I suspect about Thursday the catheter will come out. This is been discussed at length with the patient and his today. Objective - Vital Signs Vital signs: Vital Signs Temp 98.3 F 02/13/19 13:58 Pulse 76 02/13/19 13:58 Resp 18 02/13/19 13:58 BP 158/72 02/13/19 13:58 Pulse Ox 97 02/13/19 13:58 Intake & Output 02/12/19 02/13/19 02/13/19 18:59 06:59 18:59 Intake Total 1100 Output Total 2125 2100 825 Balance -21241000 -825 Intake: Intake, IV Titration 1100 Amount Sodium Chloride 0.9% 1, 1100 000 ml @ 100 mls/hr IV . Q10H [facility] Rx#:[id number] Output: Urine 2124 2100 825 Uretheral (Garcia) 2100 825 Other: Voiding Method Indwelling Catheter Indwelling Catheter - Labs CBC & Chem 7: 02/13/19 06:48 02/13/19 06:48 Labs: Abnormal Lab Results - Last 24 Hours (Table) 02/10/19 02/12/19 02/13/19 Range/Units 03:07 17:05 06:48 RBC 2.30 L (4.30-5.90) m/uL Hgb 6.7 L* (13.0-17.5) gm/dL Hct 19.8 L* (39.0-53.0) % Plt Count 105 L (150-450) k/uL Chloride (98-107) mmol/L BUN (9-20) mg/dL Creatinine (0.66-1.25) mg/dL POC Glucose (mg/dL) 216 H (75-99) mg/dL Calcium (8.4-10.2) mg/dL Crossmatch See Detail 02/13/19 02/13/19 02/13/19 Range/Units 06:48 07:22 10:04 RBC (4.30-5.90) m/uL Hgb (13.0-17.5) gm/dL Hct (39.0-53.0) % Plt Count (150-450) k/uL Chloride 111 H (98-107) mmol/L BUN 25 H (9-20) mg/dL Creatinine 1.96 H (0.66-1.25) mg/dL POC Glucose (mg/dL) 121 H (75-99) mg/dL Calcium 7.8 L (8.4-10.2) mg/dL Crossmatch See Detail 02/13/19 Range/Units 11:33 RBC (4.30-5.90) m/uL Hgb (13.0-17.5) gm/dL Hct (39.0-53.0) % Plt Count (150-450) k/uL Chloride (98-107) mmol/L BUN (9-20) mg/dL Creatinine (0.66-1.25) mg/dL POC Glucose (mg/dL) 170 H (75-99) mg/dL Calcium (8.4-10.2) mg/dL Crossmatch
[2019-02-13 17:16] LABS: Glucose,Whole Blood 171 mg/dL (75-99)
[2019-02-13] MEDS: LINAGLIPTIN 5 MG TABLET PO SCH (17:54)
[2019-02-13 19:48] LABS: Glucose,Whole Blood 190 mg/dL (75-99)
[2019-02-13] MEDS: POLYETHYLENE GLYCOL 3350 17 GM POWD.PACK PO SCH (20:00)
[2019-02-13] MEDS: ATORVASTATIN 80 MG TAB PO SCH (20:44)
[2019-02-13] MEDS: ACETAMINOPHEN TAB 325 MG TAB PO PRN (20:45)
[2019-02-13] MEDS: LURASIDONE 40 MG TAB PO SCH (22:48)
[2019-02-14 07:13] LABS: Glucose,Whole Blood 129 mg/dL (75-99)
[2019-02-14] MEDS: INSULIN ASPART (NovoLOG) 100 UNIT/ML VIAL SQ SCH ×4 (07:37→21:51)
[2019-02-14 08:49] LABS: Basophils % (A) 0 %; Eosinophils # (A) 0.4 k/uL (0-0.7); Eosinophils % (A) 5 %; Lymphocytes # (A) 0.9 k/uL (1.0-4.8); Lymphocytes % (A) 13 %; MCH 28.9 pg (25.0-35.0); MCHC 33.5 g/dL (31.0-37.0); MCV 86.2 fL (80.0-100.0); Mean Platelet Volume 6.8; Monocytes # (A) 0.4 k/uL (0-1.0); Monocytes % (A) 6 %; Neutrophils % (A) 74 %; Platelet Count 118 k/uL (150-450); RBC 2.89 m/uL (4.30-5.90); RDW 14.3 % (11.5-15.5); WBC 6.8 k/uL (3.8-10.6)
[2019-02-14 09:05] LABS: HGB 8.4 gm/dL (13.0-17.5)
[2019-02-14] MEDS: hydrALAZINE HCL 50 MG TAB PO SCH ×4 (09:05→21:51)
[2019-02-14] MEDS: CITALOPRAM HYDROBROMIDE 20 MG TAB PO SCH (09:07)
[2019-02-14] MEDS: amLODIPine 5 MG TAB PO SCH ×2 (09:07→21:49)
[2019-02-14] MEDS: GABAPENTIN 300 MG CAP PO SCH ×2 (09:07→21:49)
[2019-02-14] MEDS: cloNIDine HCL 0.1 MG TAB PO SCH ×2 (09:08→21:49)
[2019-02-14] MEDS: DOCUSATE 100 MG CAP PO SCH ×2 (09:08→21:49)
[2019-02-14] MEDS: TAMSULOSIN 0.4 MG CAP.ER.24H PO SCH ×2 (09:08→21:50)
[2019-02-14] MEDS: LORATADINE 10 MG TAB PO SCH (09:08)
[2019-02-14] MEDS: PANTOPRAZOLE 40 MG TABLET PO SCH ×2 (09:08→17:26)
[2019-02-14] MEDS: SODIUM CHLORIDE 0.9% 1,000 ML IV SCH ×2 (09:09→17:28)
[2019-02-14] MEDS: ISOSORBIDE MONONITRATE ER 60 MG TAB.ER.24H PO SCH (09:11)
[2019-02-14] MEDS: GLIMEPIRIDE 1 MG TAB PO SCH ×3 (09:11→21:51)
[2019-02-14] MEDS: METOPROLOL SUCCINATE (ER) 50 MG TAB.ER.24H PO SCH (09:11)
[2019-02-14] MEDS: LINAGLIPTIN 5 MG TABLET PO SCH (09:12)
[2019-02-14] MEDS ORDERED: BISACODYL 5 MG TABLET.DR PO STA (11:11)
[2019-02-14 11:14] LABS: Glucose,Whole Blood 217 mg/dL (75-99)
[2019-02-14 11:36] VITALS: RESP 20
[2019-02-14] MEDS ORDERED: BISACODYL 10 MG SUPP RECTAL STA (12:20)
[2019-02-14 13:00] LABS: Calcium 8.2 mg/dL (8.4-10.2); Potassium 4.6 mmol/L (3.5-5.1)
[2019-02-14] MEDS: ONDANSETRON 4 MG/2 ML VIAL IVP PRN ×2 (13:31→21:55)
[2019-02-14 17:13] LABS: Glucose,Whole Blood 139 mg/dL (75-99)
[2019-02-14] MEDS: FUROSEMIDE 40 MG TAB PO SCH (17:14)
--- NOTE | 2019-02-14 17:22 | P.PN ---
Subjective Progress Note Date: 02/12/19 Principal diagnosis: Hematuria status post TURP Patient is a 53-year-old male with a known history of chronic anemia, history of CVA/TIA, hypertension, diabetes type 2, history of MA, coronary artery disease status post cardiac catheterization and medical management recommended, rheumatoid arthritis and diabetic neuropathy, legally blind and multiple other medical problems came to ER with complaints of blood in the urine after undergoing TURP yesterday morning. The patient does have a Garcia catheter in place. States this afternoon he noticed the urine was turning red. Patient is concerned because he does have history of anemia did have a blood transfusion recently. Patient denies any weakness or dizziness. Denies any sweats, chest pain, or shortness of breath. Patient states he is having some burning discomfort to the surgical region. Patient denies any recent rash, shortness breath, chest pain, abdominal pain, nausea, vomiting, diarrhea, constipation, back pain, numbness, tingling, dizziness, weakness, headache, visual changes, or any other complaints. \ 02/11/2019 Patient is still having dark urine and blood clots. Patient was also having urinary retention. Garcia catheter was changed. Hemoglobin did drop was 7.1 today. Hemoglobin was 8.1 post transfusion yesterday. Patient will be getting 1 more unit of PRBC today. Otherwise denied any complaints of chest pain or shortness of breath. No nausea vomiting or abdominal pain. 02/12/2019 Patient is still having blood-tinged urine and also has been retaining. No blood clots are active bleeding. Hemoglobin is slightly improved to 7.7 today. Patient is being continued on IV hydration. Renal function slightly better. Urology is following. Current medications reviewed. Objective - Vital Signs Vital signs: Vital Signs Temp 98 F 02/12/19 20:50 Pulse 73 02/12/19 20:50 Resp 18 02/12/19 20:50 BP 120/57 02/12/19 20:50 Pulse Ox 95 02/12/19 20:50 Intake & Output 02/12/19 02/12/19 02/13/19 06:59 18:59 06:59 Intake Total 2340 Output Total 1850 2125 Balance 490 -2125 Intake: Intake, IV Titration 1500 Amount Sodium Chloride 0.9% 1, 1000 000 ml @ 100 mls/hr IV . Q10H [facility] Rx#:[id number] Sodium Chloride 0.9% 500 500 ml 500 ml @ 999 mls/hr IV .Q31M ONE Rx#:[id number] Oral 840 Output: Urine 1850 2125 Uretheral (Garcia) 650 Other: Voiding Method Indwelling Catheter Indwelling Catheter - Exam PHYSICAL EXAMINATION: Patient is lying in the bed comfortably, no acute distress, awake alert and oriented.. HEENT: Normocephalic. Neck is supple. Pupils reactive. Nostrils clear. Oral cavity is moist. Ears reveal no drainage. Neck reveals no JVD, carotid bruits, or thyromegaly. CHEST EXAMINATION: Trachea is central. Symmetrical expansion. Lung ricks clear to auscultation and percussion. CARDIAC: Normal S1, S2 with no gallops. No murmurs ABDOMEN: Soft. Bowel sounds normal. No organomegaly. No abdominal bruits. Garcia catheter is in place with dark red colored urine Extremities: reveal no edema. No clubbing or cyanosis Neurologically awake, alert, oriented x3 with well-coordinated movements. No focal deficits noted Skin: No rash or skin lesions. Psychiatric: Coperative. Nonsuicidal Musculoskeletal: No joint swelling or deformity. Normal range of motion. - Labs CBC & Chem 7: 02/14/19 07:53 02/14/19 07:53 Labs: Abnormal Lab Results - Last 24 Hours (Table) 02/12/19 02/12/19 02/12/19 Range/Units 06:48 11:15 11:31 RBC 2.69 L (4.30-5.90) m/uL Hgb 7.7 L (13.0-17.5) gm/dL Hct 23.2 L (39.0-53.0) % Plt Count 124 L (150-450) k/uL Lymphocytes # 0.9 L (1.0-4.8) k/uL Chloride 111 H (98-107) mmol/L BUN 38 H (9-20) mg/dL Creatinine 2.34 H (0.66-1.25) mg/dL POC Glucose (mg/dL) 111 H (75-99) mg/dL Calcium 7.9 L (8.4-10.2) mg/dL 02/12/19 Range/Units 17:05 RBC (4.30-5.90) m/uL Hgb (13.0-17.5) gm/dL Hct (39.0-53.0) % Plt Count (150-450) k/uL Lymphocytes # (1.0-4.8) k/uL Chloride (98-107) mmol/L BUN (9-20) mg/dL Creatinine (0.66-1.25) mg/dL POC Glucose (mg/dL) 216 H (75-99) mg/dL Calcium (8.4-10.2) mg/dL Assessment and Plan Assessment: Hematuria related to TURP done on 02/09/2019 Acute blood loss anemia with hemoglobin of 6.8 on admission. Baseline around 8.6 Chronic anemia/anemia of chronic disease History of rheumatoid arthritis Coronary artery disease with history of stent. Medical management recommended. History of CVA/TIA Diabetes type 2 GERD Hypertension and hyperlipidemia History of MA History of migraine headaches Diabetic peripheral neuropathy CKD stage II Legally blind BPH Anxiety/depression Plan: Patient will be continued on IV hydration. Monitor H&H. Pt. patient was transfused with 2 units of PRBC so far. Avoid blood thinners. Continue to follow closely Patient was seen by urology and treatments no intervention at this time. Follow with in the clinic on Thursday. Concurrent management and further recommendations based on the clinical course. Prognosis is guarded. Time with Patient: Greater than 30
--- NOTE | 2019-02-14 17:24 | P.PN ---
Subjective Progress Note Date: 02/13/19 Principal diagnosis: Hematuria status post TURP Patient is a 53-year-old male with a known history of chronic anemia, history of CVA/TIA, hypertension, diabetes type 2, history of SC, coronary artery disease status post cardiac catheterization and medical management recommended, rheumatoid arthritis and diabetic neuropathy, legally blind and multiple other medical problems came to ER with complaints of blood in the urine after undergoing TURP yesterday morning. The patient does have a Garcia catheter in place. States this afternoon he noticed the urine was turning red. Patient is concerned because he does have history of anemia did have a blood transfusion recently. Patient denies any weakness or dizziness. Denies any sweats, chest pain, or shortness of breath. Patient states he is having some burning discomfort to the surgical region. Patient denies any recent rash, shortness breath, chest pain, abdominal pain, nausea, vomiting, diarrhea, constipation, back pain, numbness, tingling, dizziness, weakness, headache, visual changes, or any other complaints. \ 02/11/2019 Patient is still having dark urine and blood clots. Patient was also having urinary retention. Garcia catheter was changed. Hemoglobin did drop was 7.1 today. Hemoglobin was 8.1 post transfusion yesterday. Patient will be getting 1 more unit of PRBC today. Otherwise denied any complaints of chest pain or shortness of breath. No nausea vomiting or abdominal pain. 02/12/2019 Patient is still having blood-tinged urine and also has been retaining. No blood clots are active bleeding. Hemoglobin is slightly improved to 7.7 today. Patient is being continued on IV hydration. Renal function slightly better. Urology is following. 02/13/2019 Patient denied any complaints of chest pain or shortness. Renal function is better. Hemoglobin again dropped to 6.7 today. Still having blood in the urine. No fever or chills. No other acute overnight issues. Current medications reviewed. Objective - Vital Signs Vital signs: Vital Signs Temp 98.2 F 02/13/19 16:15 Pulse 75 02/13/19 16:15 Resp 18 02/13/19 16:15 BP 153/73 02/13/19 16:15 Pulse Ox 97 02/13/19 16:15 Intake & Output 02/12/19 02/13/19 02/13/19 18:59 06:59 18:59 Intake Total 1100 310 Output Total 2124 2100 825 Balance -2125 -1000 -515 Intake: Intake, IV Titration 1100 Amount Sodium Chloride 0.9% 1, 1100 000 ml @ 100 mls/hr IV . Q10H [facility] Rx#:[id number] Blood Product 310 Rc Pheresis As-3 Unit 310 [id number] Output: Urine 2124 2100 825 Uretheral (Garcia) 2100 825 Other: Voiding Method Indwelling Catheter Indwelling Catheter Indwelling Catheter - Exam PHYSICAL EXAMINATION: Patient is lying in the bed comfortably, no acute distress, awake alert and oriented.. HEENT: Normocephalic. Neck is supple. Pupils reactive. Nostrils clear. Oral cavity is moist. Ears reveal no drainage. Neck reveals no JVD, carotid bruits, or thyromegaly. CHEST EXAMINATION: Trachea is central. Symmetrical expansion. Lung ricks clear to auscultation and percussion. CARDIAC: Normal S1, S2 with no gallops. No murmurs ABDOMEN: Soft. Bowel sounds normal. No organomegaly. No abdominal bruits. Garcia catheter is in place with dark red colored urine Extremities: reveal no edema. No clubbing or cyanosis Neurologically awake, alert, oriented x3 with well-coordinated movements. No focal deficits noted Skin: No rash or skin lesions. Psychiatric: Coperative. Nonsuicidal Musculoskeletal: No joint swelling or deformity. Normal range of motion. - Labs CBC & Chem 7: 02/14/19 07:53 02/14/19 07:53 Labs: Abnormal Lab Results - Last 24 Hours (Table) 02/10/19 02/12/19 02/13/19 Range/Units 03:07 17:05 06:48 RBC 2.30 L (4.30-5.90) m/uL Hgb 6.7 L* (13.0-17.5) gm/dL Hct 19.8 L* (39.0-53.0) % Plt Count 105 L (150-450) k/uL Chloride (98-107) mmol/L BUN (9-20) mg/dL Creatinine (0.66-1.25) mg/dL POC Glucose (mg/dL) 216 H (75-99) mg/dL Calcium (8.4-10.2) mg/dL Crossmatch See Detail 02/13/19 02/13/19 02/13/19 Range/Units 06:48 07:22 10:04 RBC (4.30-5.90) m/uL Hgb (13.0-17.5) gm/dL Hct (39.0-53.0) % Plt Count (150-450) k/uL Chloride 111 H (98-107) mmol/L BUN 25 H (9-20) mg/dL Creatinine 1.96 H (0.66-1.25) mg/dL POC Glucose (mg/dL) 121 H (75-99) mg/dL Calcium 7.8 L (8.4-10.2) mg/dL Crossmatch See Detail 02/13/19 Range/Units 11:33 RBC (4.30-5.90) m/uL Hgb (13.0-17.5) gm/dL Hct (39.0-53.0) % Plt Count (150-450) k/uL Chloride (98-107) mmol/L BUN (9-20) mg/dL Creatinine (0.66-1.25) mg/dL POC Glucose (mg/dL) 170 H (75-99) mg/dL Calcium (8.4-10.2) mg/dL Crossmatch Assessment and Plan Assessment: Hematuria related to TURP done on 02/09/2019 Acute blood loss anemia with hemoglobin of 6.8 on admission. Baseline around 8.6 Chronic anemia/anemia of chronic disease History of rheumatoid arthritis Coronary artery disease with history of stent. Medical management recommended. History of CVA/TIA Diabetes type 2 GERD Hypertension and hyperlipidemia History of SC History of migraine headaches Diabetic peripheral neuropathy CKD stage II Legally blind BPH Anxiety/depression Plan: Patient will be continued on IV hydration. Monitor H&H. Pt. patient was transfused with 2 units of PRBC so far. Avoid blood thinners. Continue to follow closely Patient was seen by urology and treatments no intervention at this time. Follow with in the clinic on Thursday. Concurrent management and further recommendations based on the clinical course. Prognosis is guarded. Time with Patient: Greater than 30
--- NOTE | 2019-02-14 18:50 | P.PN ---
Subjective Progress Note Date: 02/14/19 Principal diagnosis: This is a 53 year old male who was recently admitted following a TURP procedure who had hematuria and anemia and is being closely monitored. Patient is lying in bed in mild acute distress due to his bustos not draining properly and causing some discomfort in the abdomen. RN irrigated the bustos with 30mL of sterile saline and urine began to drain and was tinged with dark blood with no obvious clots. Patient output was over 500mL and still draining. Patient also states that he has not had a bowel movement and is requesting something to help. Dulcolax suppository was ordered. Patient is having some generalized edema and requesting his lasix be restarted. Patient denies any chest pain, shortness of breath, or palpitations at this time. Patient denies any nausea or vomiting and is tolerating diet. Patient is afebrile. Patient is anxious about going home as he is nervous about having to come back if the bustos isn't draining. is at the bedside. Guarded prognosis. Objective - Vital Signs Vital signs: Vital Signs Temp 97.8 F 02/14/19 11:27 Pulse 62 02/14/19 11:27 Resp 20 02/14/19 11:27 BP 145/67 02/14/19 11:27 Pulse Ox 98 02/14/19 11:27 Intake & Output 02/13/19 02/14/19 02/14/19 18:59 06:59 18:59 Intake Total 550 2190 300 Output Total 3525 2800 Balance -2975 -610 300 Intake: Intake, IV Titration 1600 300 Amount Sodium Chloride 0.9% 1, 1600 300 000 ml @ 100 mls/hr IV . Q10H [facility] Rx#:[id number] Oral 240 590 Blood Product 310 Rc Pheresis As-3 Unit 310 [id number] Output: Urine 3525 2800 Uretheral (Bustos) 825 2800 Other: Voiding Method Indwelling Catheter Indwelling Catheter Indwelling Catheter - Exam Gen: This is a 53 year old male lying in bed in mild acute distress. Vital signs are stable. HEENT: Head is atraumatic, normocephalic. Pupils equal, round. Sclerae is anicteric. NECK: Supple. No JVD. No lymphadenopathy. No thyromegaly. LUNGS: Clear to auscultation. No wheezes or rhonchi. No intercostal retractions. HEART: Regular rate and rhythm. No murmur. ABDOMEN: Soft. Bowel sounds are present. No masses. mild tenderness of the lower abdomen upon palpation. EXTREMITIES: mild upper and lower extremity edema. No calf tenderness. NEUROLOGICAL: Patient is awake, alert and oriented x3. Cranial nerves 2 through 12 are grossly intact. - Labs CBC & Chem 7: 02/14/19 07:53 02/14/19 07:53 Labs: Abnormal Lab Results - Last 24 Hours (Table) 02/13/19 02/13/19 02/14/19 Range/Units 17:15 19:46 07:10 RBC (4.30-5.90) m/uL Hgb (13.0-17.5) gm/dL Hct (39.0-53.0) % Plt Count (150-450) k/uL Lymphocytes # (1.0-4.8) k/uL Chloride (98-107) mmol/L Creatinine (0.66-1.25) mg/dL Glucose (74-99) mg/dL POC Glucose (mg/dL) 171 H 190 H 129 H (75-99) mg/dL Calcium (8.4-10.2) mg/dL 02/14/19 02/14/19 02/14/19 Range/Units 07:53 07:53 11:01 RBC 2.89 L (4.30-5.90) m/uL Hgb 8.4 L D (13.0-17.5) gm/dL Hct 25.0 L (39.0-53.0) % Plt Count 118 L (150-450) k/uL Lymphocytes # 0.9 L (1.0-4.8) k/uL Chloride 109 H (98-107) mmol/L Creatinine 1.75 H (0.66-1.25) mg/dL Glucose 142 H (74-99) mg/dL POC Glucose (mg/dL) 217 H (75-99) mg/dL Calcium 8.2 L (8.4-10.2) mg/dL Assessment and Plan Assessment: Hematuria related of TURP done 02/09/2019 Acute blood loss anemia with hemoglobin of 6.8 on admission. Baseline is around 8.6.current hgb is 8.4. Patient was transfused 1 unit PRBC yesterday Chronic anemia history of rheumatoid arthritis Coronary artery disease with history of stents. Medical management recommended History of CVA/TIA Diabetes mellitus type 2 GERD Hypertension and hyperlipidemia History of [place] History of migraine headaches Diabetic peripheral neuropathy Chronic kidney disease stage II. Creatinine improving. Current Cr is 1.75 Legally blind BPH Depression Anxiety Recommendations and discussion: Recommend to continue current medications, management, and symptomatic treatment. Urology is following and will be seeing patient in the outpatient setting. Continue to monitor output, vitals, and labs closely. Cardiology is following. Guarded prognosis. Further recommendations to follow. Possible di scharge in 24 hours.
[2019-02-14 19:52] LABS: Glucose,Whole Blood 160 mg/dL (75-99)
--- NOTE | 2019-02-14 20:08 | P.PN ---
Progress Note - Text Progress Note Date: 02/14/19 Mr. Tinajero reported mild abdominal discomfort 1 seen this morning, but overall felt quite good. His urine was only faintly pink in color, and the hemoglobin level was 8.4. It was anticipated that he will be discharged home, but he subsequently developed clot retention, requiring catheter irrigation with return of 800 mL of urine. He will therefore remained hospitalized. If the urine is clear tomorrow, removal of the Garcia catheter for a voiding trial will be considered.
[2019-02-14] MEDS: ATORVASTATIN 80 MG TAB PO SCH (21:49)
[2019-02-14] MEDS: LURASIDONE 40 MG TAB PO SCH (21:49)
[2019-02-14] MEDS: POLYETHYLENE GLYCOL 3350 17 GM POWD.PACK PO SCH (21:50)
[2019-02-15 05:37] VITALS: BP 146/79; PULSE 66; TEMP 98.1
[2019-02-15 07:28] LABS: Glucose,Whole Blood 99 mg/dL (75-99)
[2019-02-15 07:48] LABS: HCT 24.1 % (39.0-53.0); HGB 8.3 gm/dL (13.0-17.5); MCH 29.8 pg (25.0-35.0); MCHC 34.4 g/dL (31.0-37.0); MCV 86.6 fL (80.0-100.0); Mean Platelet Volume 6.7; Platelet Count 123 k/uL (150-450); RBC 2.79 m/uL (4.30-5.90); RDW 14.6 % (11.5-15.5); WBC 6.5 k/uL (3.8-10.6)
[2019-02-15 08:01] LABS: Calcium 8.3 mg/dL (8.4-10.2); Potassium 4.5 mmol/L (3.5-5.1)
[2019-02-15] MEDS: INSULIN ASPART (NovoLOG) 100 UNIT/ML VIAL SQ SCH ×2 (08:12→12:35)
[2019-02-15] MEDS: DOCUSATE 100 MG CAP PO SCH (08:14)
[2019-02-15] MEDS: PANTOPRAZOLE 40 MG TABLET PO SCH (08:14)
[2019-02-15] MEDS: LORATADINE 10 MG TAB PO SCH (08:14)
[2019-02-15] MEDS: TAMSULOSIN 0.4 MG CAP.ER.24H PO SCH (08:14)
[2019-02-15] MEDS: CITALOPRAM HYDROBROMIDE 20 MG TAB PO SCH (08:14)
[2019-02-15] MEDS: FUROSEMIDE 40 MG TAB PO SCH (08:14)
[2019-02-15] MEDS: cloNIDine HCL 0.1 MG TAB PO SCH (08:15)
[2019-02-15] MEDS: hydrALAZINE HCL 50 MG TAB PO SCH ×2 (08:15→12:35)
[2019-02-15] MEDS: GABAPENTIN 300 MG CAP PO SCH (08:15)
[2019-02-15] MEDS: amLODIPine 5 MG TAB PO SCH (08:15)
[2019-02-15] MEDS: GLIMEPIRIDE 1 MG TAB PO SCH (08:15)
[2019-02-15] MEDS: METOPROLOL SUCCINATE (ER) 50 MG TAB.ER.24H PO SCH (08:16)
[2019-02-15] MEDS: ISOSORBIDE MONONITRATE ER 60 MG TAB.ER.24H PO SCH (08:16)
[2019-02-15] MEDS: LINAGLIPTIN 5 MG TABLET PO SCH (08:16)
--- NOTE | 2019-02-15 10:10 | P.PN ---
Subjective Progress Note Date: 02/15/19 The patient is one week postop IPP. He is in the hospital gross hematuria and clot retention. The urine is cleared. I'll pull his catheter and see how he voids. Objective - Vital Signs Vital signs: Vital Signs Temp 98.1 F 02/15/19 05:00 Pulse 66 02/15/19 05:00 Resp 20 02/15/19 05:00 BP 146/79 02/15/19 05:00 Pulse Ox 94 L 02/15/19 05:00 Intake & Output 02/14/19 02/15/19 02/15/19 18:59 06:59 18:59 Intake Total 300 160 Output Total 2400 Balance 300 -2240 Intake: Intake, IV Titration 300 160 Amount Sodium Chloride 0.9% 1, 300 160 000 ml @ 20 mls/hr IV . Q24H [facility] Rx#:[id number] Output: Urine 2400 Uretheral (Garcia) 2400 Other: Voiding Method Indwelling Catheter Indwelling Catheter # Bowel Movements 0 - Labs CBC & Chem 7: 02/15/19 07:23 02/15/19 07:23 Labs: Abnormal Lab Results - Last 24 Hours (Table) 02/14/19 02/14/19 02/14/19 Range/Units 07:53 11:01 17:11 RBC (4.30-5.90) m/uL Hgb (13.0-17.5) gm/dL Hct (39.0-53.0) % Plt Count (150-450) k/uL Chloride 109 H (98-107) mmol/L Creatinine 1.75 H (0.66-1.25) mg/dL Glucose 142 H (74-99) mg/dL POC Glucose (mg/dL) 217 H 139 H (75-99) mg/dL Calcium 8.2 L (8.4-10.2) mg/dL 02/14/19 02/15/19 02/15/19 Range/Units 19:50 07:23 07:23 RBC 2.79 L (4.30-5.90) m/uL Hgb 8.3 L (13.0-17.5) gm/dL Hct 24.1 L (39.0-53.0) % Plt Count 123 L (150-450) k/uL Chloride 108 H (98-107) mmol/L Creatinine 1.94 H (0.66-1.25) mg/dL Glucose (74-99) mg/dL POC Glucose (mg/dL) 160 H (75-99) mg/dL Calcium 8.3 L (8.4-10.2) mg/dL
[2019-02-15 11:19] LABS: Glucose,Whole Blood 136 mg/dL (75-99)
--- NOTE | 2019-02-15 14:19 | P.DS ---
Providers Date of admission: 02/10/19 13:20 Expected date of discharge: 02/15/19 Attending physician: Shakeel Miramontes Consults: 02/10/19 03:03 Consult Physician Routine Consulting Provider: Raj Harris Consult Reason/Comments: hematuria Do you want consulting provider notified?: Yes 02/11/19 15:12 Consult Physician Routine Consulting Provider: Beba Church Consult Reason/Comments: chest pain Do you want consulting provider notified?: Yes Primary care physician: Tyler Rosenberg [facility] Course: Final diagnosis Hematuria related to TURP done on 02/09/2019 Acute blood loss anemia with hemoglobin of 6.8 on admission Chronic anemia History of rheumatoid arthritis Coronary artery disease with history of stents. Medical management recommended History of CVA/TIA Diabetes mellitus type 2 GERD Hypertension Hyperlipidemia History of [place] History of migraine headaches Diabetic peripheral neuropathy Chronic kidney disease stage II Legally blind BPH Depression Anxiety Discharge disposition Patient is being discharged in a stable condition with guarded prognosis to home and will follow-up with urology this week. Patient had Garcia catheter removed this morning and is urinating with no complaints. History of present illness This is a 53-year-old male who was recently admitted status post TURP procedure and had hematuria and anemia and was being closely monitored. Urology was following closely. Garcia catheter was discontinued this morning and patient has been urinating with no difficulties. Patient will follow-up with urology this week in the clinic. Patient denies any chest pain, shortness of breath, or palpitations at this time. Patient denies any nausea or vomiting and has been tolerating diet. Patient did have a large bowel movement yesterday after suppository was administered and states that his abdominal discomfort has gone away. Patient has been afebrile. Patient is awaiting for his to get here to take him home today. Currently the patient is stable with much improvement. Guarded prognosis. On exam vital signs are stable. Blood pressure is 146/79, pulse is 66, respirations are 20, temp is 98.1F, oxygen saturation is 94% on room air. Cardio S1 and S2 are normal. Respiratory system shows clear to auscultation. Abdomen is soft, obese, and non-tender. Nervous system shows no focal deficits. Please refer to medication reconciliation sheet for a list of medications. Patient Condition at Discharge: Fair Plan - Discharge Summary Discharge Rx Participant: No New Discharge Prescriptions: New cloNIDine HCL [Catapres] 0.1 mg PO BID tab Darbepoetin Omari [Aranesp] 100 mcg SQ Q7D syringe Linagliptin [Tradjenta] 5 mg PO QAM 30 Days #30 tablet Continue Lurasidone [Latuda] 40 mg PO HS Glimepiride [Amaryl] 4 mg PO DAILY Gabapentin 600 mg PO BID Docusate Sodium [Dok] 100 mg PO BID Pantoprazole [Protonix] 40 mg PO BID Tamsulosin [Flomax] 0.4 mg PO BID Atorvastatin [Lipitor] 80 mg PO HS tab Clopidogrel [Plavix] 75 mg PO HS Loratadine [Claritin] 10 mg PO DAILY Citalopram Hydrobromide [CeleXA] 60 mg PO DAILY Butalb/APAP/Caff 50-325-40Mg [Fioricet 50-325-40] 1 tab PO Q4H PRN PRN Reason: Migraine Headache Aspirin 81 mg PO HS Isosorbide Mononitrate ER [Imdur] 60 mg PO DAILY #30 tab.er.24h Furosemide [Lasix] 40 mg PO BID@0900,1600 #60 tab Acetaminophen Tab [Tylenol] 650 mg PO Q6HR PRN tab PRN Reason: Fever And/ Or Pain hydrALAZINE HCL [Apresoline] 100 mg PO QID #120 tab amLODIPine [Norvasc] 5 mg PO BID #60 tab Metoprolol Succinate (ER) [Toprol XL] 50 mg PO DAILY #30 tab Discontinued cloNIDine HCL [Catapres] 0.2 mg PO BID Discharge Medication List Docusate Sodium [Dok] 100 mg PO BID 09/12/17 [History] Gabapentin 600 mg PO BID 09/12/17 [History] Glimepiride [Amaryl] 4 mg PO DAILY 09/12/17 [History] Lurasidone [Latuda] 40 mg PO HS 09/12/17 [History] Pantoprazole [Protonix] 40 mg PO BID 11/05/17 [History] Tamsulosin [Flomax] 0.4 mg PO BID 11/05/17 [History] Atorvastatin [Lipitor] 80 mg PO HS tab 11/12/17 [Rx] Clopidogrel [Plavix] 75 mg PO HS 12/09/17 [History] Butalb/APAP/Caff 50-325-40Mg [Fioricet 50-325-40] 1 tab PO Q4H PRN 12/12/18 [History] Citalopram Hydrobromide [CeleXA] 60 mg PO DAILY 12/12/18 [History] Loratadine [Claritin] 10 mg PO DAILY 12/12/18 [History] Aspirin 81 mg PO HS 01/17/19 [History] Acetaminophen Tab [Tylenol] 650 mg PO Q6HR PRN tab 01/26/19 [Rx] Furosemide [Lasix] 40 mg PO BID@0900,1600 #60 tab 01/26/19 [Rx] Isosorbide Mononitrate ER [Imdur] 60 mg PO DAILY #30 tab.er.24h 01/26/19 [Rx] Metoprolol Succinate (ER) [Toprol XL] 50 mg PO DAILY #30 tab 01/26/19 [Rx] amLODIPine [Norvasc] 5 mg PO BID #60 tab 01/26/19 [Rx] hydrALAZINE HCL [Apresoline] 100 mg PO QID #120 tab 01/26/19 [Rx] cloNIDine HCL [Catapres] 0.1 mg PO BID tab 02/11/19 [Rx] Darbepoetin Omari [Aranesp] 100 mcg SQ Q7D syringe 02/15/19 [Rx] Linagliptin [Tradjenta] 5 mg PO QAM 30 Days #30 tablet 02/15/19 [Rx] Follow up Appointment(s)/Referral(s): Lamar Scott MD [Primary Care Provider] - 02/22/19 2:00 pm Raj Harris MD [STAFF PHYSICIAN] - (The office will give you a call with your appointment time and date.) Beba Church MD [STAFF PHYSICIAN] - 2 Weeks (Dr. Church's office will call patient with an appointment date and time. ) Ambulatory/Diagnostic Orders: Basic Metabolic Panel [LAB.AMB] Time Frame: 2 Days, Location: None Selected Complete Blood Count w/diff [LAB.AMB] Time Frame: 2 Days, Location: None Selected Patient Instructions/Handouts: Linagliptin (By mouth), Hematuria (GEN), Anemia (DC) Activity/Diet/Wound Care/Special Instructions: Activity limited until follow-up Repeat labs in 2-3 days Discharge Disposition: HOME SELF-CARE
== END 2019-02-15 16:40 | disposition home or self-care (01) | DRG 920 ==
LOC: EC 22:54 → 1SOBS 02-10 03:56 → OBSVTOIN 02-10 13:20 → 3NMEDONC 02-10 14:27
PROVIDERS: ADMIT Hospitalist; ATTEND Hospitalist
PROC: 30233N1 Transfusion of Nonautologous Red Blood Cells into Peripheral Vein, Percutaneous Approach (ICD-10-PCS; principal; 2019-02-10)
DX: N99.820 Postprocedural hemorrhage of a genitourinary system organ or structure following a genitourinary system procedure (principal); D62 Acute posthemorrhagic anemia; D63.8 Anemia in other chronic diseases classified elsewhere; E11.22 Type 2 diabetes mellitus with diabetic chronic kidney disease; E11.42 Type 2 diabetes mellitus with diabetic polyneuropathy; E78.5 Hyperlipidemia, unspecified; F32.9 Major depressive disorder, single episode, unspecified; F41.9 Anxiety disorder, unspecified; H54.8 Legal blindness, as defined in USA; I12.9 Hypertensive chronic kidney disease with stage 1 through stage 4 chronic kidney disease, or unspecified chronic kidney disease; I25.10 Atherosclerotic heart disease of native coronary artery without angina pectoris; I25.2 Old myocardial infarction; I25.82 Chronic total occlusion of coronary artery; Z86.73 Personal history of transient ischemic attack (TIA), and cerebral infarction without residual deficits; K21.9 Gastro-esophageal reflux disease without esophagitis; M06.9 Rheumatoid arthritis, unspecified; N18.2 Chronic kidney disease, stage 2 (mild); N40.1 Benign prostatic hyperplasia with lower urinary tract symptoms; R31.0 Gross hematuria; R33.8 Other retention of urine; Z79.02 Long term (current) use of antithrombotics/antiplatelets; Z79.82 Long term (current) use of aspirin; Z79.84 Long term (current) use of oral hypoglycemic drugs; Z79.899 Other long term (current) drug therapy; Z82.49 Family history of ischemic heart disease and other diseases of the circulatory system; Z83.3 Family history of diabetes mellitus; Z90.79 Acquired absence of other genital organ(s); Z95.5 Presence of coronary angioplasty implant and graft
CPT/HCPCS: 36415; 51798; 80048; 84484; 85025; 85027; 85610; 85730; 86850; 86900; 86901; 86920; 93005; 96361; 96374; 96375; 99284

== ENCOUNTER 2019-02-23 20:02 | Inpatient (IN) | payer OTHER ==
--- NOTE | 2019-02-23 20:42 | ED ---
General Adult HPI - General Source: patient, RN notes reviewed, old records reviewed Mode of arrival: wheelchair Limitations: no limitations <Ran Conklin - Last Filed: 02/24/19 01:02> <Rubio Cox - Last Filed: 02/25/19 06:35> - General Chief complaint: Urogenital Stated complaint: Blood in Urine Time Seen by Provider: 02/23/19 20:31 - History of Present Illness Initial comments: 53-year-old male patient past history significant for TURP procedure on 02/[address] Adams as well as chronic anemia. Patient was hospitalized for one week after procedure due to anemia. Patient was seen at the office today and had a catheter placed due to urinary retention. Patient now has gross he maturia. Patient reports a mild amount of suprapubic pain. Patient also reports that he has had a minimal amount of drainage from has catheter today. Patient denies any other complaints at this time. Systemic: Pt denies fatigue, fever/chills, rash. Pt denies weakness, night sweats, weight loss. Neuro: Pt denies headache, visual disturbances, syncope or pre-syncope. HEENT: Pt denies ocular discharge or irritation, otalgia, rhinorrhea, pharyngitis or notable lymphadenopathy. Cardiopulmonary: Pt denies chest pain, SOB, heart palpitations, dyspnea on exertion. Abdominal/GI: Pt denies abdominal pain, n/v/d. : Pt denies dysuria, burning w/ urination, frequency/urgency. Denies new onset urinary or bowel incontinence. MSK: Pt denies myalgia, loss of strength or function in extremities. Neuro: Pt denies new onset weakness, paresthesias. (Ran Conklin) - Related Data Home Medications Medication Instructions Recorded Confirmed Docusate Sodium [Dok] 100 mg PO BID 09/12/17 02/23/19 Gabapentin 600 mg PO BID 09/12/17 02/23/19 Glimepiride [Amaryl] 2 mg PO BID 09/12/17 02/23/19 Lurasidone [Latuda] 40 mg PO HS 09/12/17 02/23/19 Pantoprazole [Protonix] 40 mg PO BID 11/05/17 02/23/19 Tamsulosin [Flomax] 0.4 mg PO BID 11/05/17 02/23/19 Clopidogrel [Plavix] 75 mg PO HS 12/09/17 02/23/19 Butalb/APAP/Caff 50-325-40Mg 1 tab PO Q4H PRN 12/12/18 02/23/19 [Fioricet 50-325-40] Citalopram Hydrobromide [CeleXA] 60 mg PO DAILY 12/12/18 02/23/19 Loratadine [Claritin] 10 mg PO DAILY 12/12/18 02/23/19 Aspirin 81 mg PO HS 01/17/19 02/23/19 Furosemide [Lasix] 40 mg PO TID 02/22/19 02/23/19 sitaGLIPtin PHOSPHATE [Januvia] 50 mg PO DAILY 02/22/19 02/23/19 Ergocalciferol (Vitamin D2) 50,000 unit PO MOFR 02/23/19 02/23/19 [Drisdol] Previous Rx's Medication Instructions Recorded Atorvastatin [Lipitor] 80 mg PO HS tab 11/12/17 Acetaminophen Tab [Tylenol] 650 mg PO Q6HR PRN tab 01/26/19 Isosorbide Mononitrate ER [Imdur] 60 mg PO DAILY #30 tab.er.24h 01/26/19 Metoprolol Succinate (ER) [Toprol 50 mg PO DAILY #30 tab 01/26/19 XL] amLODIPine [Norvasc] 5 mg PO BID #60 tab 01/26/19 hydrALAZINE HCL [Apresoline] 100 mg PO QID #120 tab 01/26/19 Darbepoetin Omari [Aranesp] 100 mcg SQ Q7D syringe 02/15/19 cloNIDine HCL [Catapres] 0.1 mg PO BID #60 tab 02/15/19 Allergies Allergy/AdvReac Type Severity Reaction Status Date / Time Iodinated Contrast- Oral and Allergy Nausea & Verified 02/23/19 20:53 IV Dye Vomiting Review of Systems ROS Other: All systems not noted in ROS Statement are negative. <Ran Conklin - Last Filed: 02/24/19 01:02> ROS Other: All systems not noted in ROS Statement are negative. <Rubio Cox - Last Filed: 02/25/19 06:35> ROS Statement: Those systems with pertinent positive or pertinent negative responses have been documented in the HPI. Past Medical History Past Medical History: Coronary Artery Disease (CAD), CVA/TIA, Diabetes Mellitus, GERD/Reflux, Hyperlipidemia, Hypertension, Myocardial Infarction ([place]), Renal Disease, Rheumatoid Arthritis (RA) Additional Past Medical History / Comment(s): stroke apr 2017, migranes, diabetic neuropathy arms and legs, stage 2 kidney failure, PANCREATITIS, LEGALLY BLIND, enlarged prostate, trouble urinating Last Myocardial Infarction Date:: 2014? not sure History of Any Multi-Drug Resistant Organisms: None Reported Past Surgical History: No Surgical Hx Reported, Heart Catheterization With Stent Additional Past Surgical History / Comment(s): Prostrate surgery Past Anesthesia/Blood Transfusion Reactions: No Reported Reaction Additional Past Anesthesia/Blood Transfusion Reaction / Comment(s): never had anethesia Date of Last Stent Placement:: 2017 Past Psychological History: Anxiety, Depression Smoking Status: Never smoker Past Alcohol Use History: None Reported Past Drug Use History: None Reported - Past Family History Mother Family Medical History: CVA/TIA, Diabetes Mellitus, Hypertension Additional Family Medical History / Comment(s): Mother is 77yrs old. Father Family Medical History: CVA/TIA, Diabetes Mellitus, Myocardial Infarction ([place]) Additional Family Medical History / Comment(s): Father of a AK in his 50s. <Wale Conklinranjit Tee - Last Filed: 02/24/19 01:02> General Exam Limitations: no limitations <Wale Conklinothy Nay - Last Filed: 02/24/19 01:02> - General Exam Comments Initial Comments: Constitutional: NAD, AOX3, Pt has pleasant affect. HEENT: NC/AT, trachea midline, neck supple, no lymphadenopathy. Posterior pharynx non erythematous, without exudates. External ears appear normal, without discharge. Mucous membranes moist. Eyes PERRLA, EOM intact. There is no scleral icterus. No pallor noted. Cardiopulmonary: RRR, no murmurs, rubs or gallops, no JVD noted. Lungs CTAB in anterior and posterior ricks. No peripheral edema. Abdominal exam: Abdomen soft and non-distended. Abdomen non-tender to palpation in all 4 quadrants. Bowel sounds active in LLQ. No hepatosplenomegaly. No ecchymosis Neuro: CN II-XII grossly intact. No nuchal rigidity. No raccon eyes, no huffman sign, no hemotympanum. No cervical spinal tenderness. MSK: No posterior calf tenderness bilaterally, homans sign negative bilaterally. Posterior tibialis and radial pulse +2 bilaterally. Sensation intact in upper and lower extremities. Full active ROM in upper and lower extremities, 5/5 stregnth. Gu: Small amount of blood noted at uerthrea, gross hematuria noted in bag. (Ran Conklin) Course Vital Signs 02/23/19 02/23/19 02/23/19 20:03 22:14 23:44 Temperature 97.8 F 97.8 F Pulse Rate 76 70 70 Pulse Rate [ Right] Respiratory 20 18 18 Rate Blood Pressure 149/73 128/65 123/59 Blood Pressure [Right Arm] O2 Sat by Pulse 98 98 98 Oximetry 02/24/19 01:28 Temperature 98.1 F Pulse Rate Pulse Rate [ 74 Right] Respiratory 18 Rate Blood Pressure Blood Pressure 141/69 [Right Arm] O2 Sat by Pulse 97 Oximetry Medical Decision Making - Lab Data Result diagrams: 02/23/19 21:40 02/23/19 21:40 <Ran Conklin - Last Filed: 02/24/19 01:02> - Lab Data Result diagrams: 02/24/19 16:27 02/24/19 16:27 <Rubio Cox - Last Filed: 02/25/19 06:35> - Medical Decision Making 53-year-old male patient past history significant for TURP procedure on 02/[address] Adams as well as chronic anemia. Patient was hospitalized for one week after procedure due to anemia. Patient was seen at the office today and had a catheter placed due to urinary retention. Patient now has gross hematuria. Patient reports a mild amount of suprapubic pain. Patient also reports that he has had a minimal amount of drainage from has catheter today. Patient denies any other complaints at this time. Pt VSS, afebrile. Physical exam displayed blood in catheter bag. Investigations revealed a hemoglobin of 8.3. Creatinine 3.07. Urine displayed gross hematuria.: Incontinence within normal limits. Patient bolused 1 L normal saline. Bladder scan revealed 0 mL and bladder. Patient will be admitted for acute on chronic acute kidney injury. Case discussed the patient seen by Dr. Joyner. (Ran Conklin) I saw this patient in conjunction with the physician enrichment assistant. I performed independent history and physical exam. Agree with case management. (Rubio Cox) - Lab Data Lab Results 02/23/19 02/23/19 02/23/19 Range/Units 21:40 21:40 21:40 WBC 7.3 (3.8-10.6) k/uL RBC 2.82 L (4.30-5.90) m/uL Hgb 8.3 L (13.0-17.5) gm/dL Hct 24.2 L (39.0-53.0) % MCV 85.9 (80.0-100.0) fL MCH 29.4 (25.0-35.0) pg MCHC 34.2 (31.0-37.0) g/dL RDW 15.2 (11.5-15.5) % Plt Count 129 L (150-450) k/uL Neutrophils % 74 % Lymphocytes % 14 % Monocytes % 6 % Eosinophils % 3 % Basophils % 0 % Neutrophils # 5.4 (1.3-7.7) k/uL Lymphocytes # 1.0 (1.0-4.8) k/uL Monocytes # 0.5 (0-1.0) k/uL Eosinophils # 0.2 (0-0.7) k/uL Basophils # 0.0 (0-0.2) k/uL Sodium 137 (137-145) mmol/L Potassium 4.2 (3.5-5.1) mmol/L Chloride 100 (98-107) mmol/L Carbon Dioxide 27 (22-30) mmol/L Anion Gap 10 mmol/L BUN 46 H (9-20) mg/dL Creatinine 3.07 H (0.66-1.25) mg/dL Est GFR (CKD-EPI)AfAm 26 (>60 ml/min/1.73 sqM) Est GFR (CKD-EPI)NonAf 22 (>60 ml/min/1.73 sqM) Glucose 199 H (74-99) mg/dL Calcium 8.1 L (8.4-10.2) mg/dL Iron 52 L (65-175) ug/dL TIBC 242 (228-460) ug/dL Iron Saturation 21.49 (15.00-50.00) Ferritin 341.6 H (22.0-322.0) ng/mL Total Bilirubin 0.2 (0.2-1.3) mg/dL AST 21 (17-59) U/L ALT 32 (21-72) U/L Alkaline Phosphatase 92 (38-126) U/L Creatine Kinase 131 (55-170) U/L Total Protein 6.2 L (6.3-8.2) g/dL Albumin 3.7 (3.5-5.0) g/dL Urine Color Urine Appearance (Clear) Urine RBC (0-5) /hpf Urine WBC (0-5) /hpf 02/23/19 Range/Units 22:14 WBC (3.8-10.6) k/uL RBC (4.30-5.90) m/uL Hgb (13.0-17.5) gm/dL Hct (39.0-53.0) % MCV (80.0-100.0) fL MCH (25.0-35.0) pg MCHC (31.0-37.0) g/dL RDW (11.5-15.5) % Plt Count (150-450) k/uL Neutrophils % % Lymphocytes % % Monocytes % % Eosinophils % % Basophils % % Neutrophils # (1.3-7.7) k/uL Lymphocytes # (1.0-4.8) k/uL Monocytes # (0-1.0) k/uL Eosinophils # (0-0.7) k/uL Basophils # (0-0.2) k/uL Sodium (137-145) mmol/L Potassium (3.5-5.1) mmol/L Chloride (98-107) mmol/L Carbon Dioxide (22-30) mmol/L Anion Gap mmol/L BUN (9-20) mg/dL Creatinine (0.66-1.25) mg/dL Est GFR (CKD-EPI)AfAm (>60 ml/min/1.73 sqM) Est GFR (CKD-EPI)NonAf (>60 ml/min/1.73 sqM) Glucose (74-99) mg/dL Calcium (8.4-10.2) mg/dL Iron (65-175) ug/dL TIBC (228-460) ug/dL Iron Saturation (15.00-50.00) Ferritin (22.0-322.0) ng/mL Total Bilirubin (0.2-1.3) mg/dL AST (17-59) U/L ALT (21-72) U/L Alkaline Phosphatase (38-126) U/L Creatine Kinase (55-170) U/L Total Protein (6.3-8.2) g/dL Albumin (3.5-5.0) g/dL Urine Color Brown Urine Appearance Bloody (Clear) Urine RBC >182 H (0-5) /hpf Urine WBC 43 H (0-5) /hpf Disposition Is patient prescribed a controlled substance at d/c from ED?: No <Ran Conklin - Last Filed: 02/24/19 01:02> <Rubio Cox - Last Filed: 02/25/19 06:35> Clinical Impression: MIKEY (acute kidney injury) Disposition: ADMITTED IP TO THIS HOSP Condition: Serious
[2019-02-23] MEDS ORDERED: SODIUM CHLORIDE 0.9% 1,000 ML IV STA (21:46)
[2019-02-23 21:56] LABS: Basophils % (A) 0 %; Eosinophils # (A) 0.2 k/uL (0-0.7); Eosinophils % (A) 3 %; HCT 24.2 % (39.0-53.0); HGB 8.3 gm/dL (13.0-17.5); Lymphocytes % (A) 14 %; MCH 29.4 pg (25.0-35.0); MCHC 34.2 g/dL (31.0-37.0); MCV 85.9 fL (80.0-100.0); Mean Platelet Volume 7.2; Monocytes # (A) 0.5 k/uL (0-1.0); Monocytes % (A) 6 %; Neutrophils # (A) 5.4 k/uL (1.3-7.7); Neutrophils % (A) 74 %; Platelet Count 129 k/uL (150-450); RBC 2.82 m/uL (4.30-5.90); RDW 15.2 % (11.5-15.5); WBC 7.3 k/uL (3.8-10.6)
[2019-02-23 22:04] LABS: Albumin 3.7 g/dL (3.5-5.0); Calcium 8.1 mg/dL (8.4-10.2); Potassium 4.2 mmol/L (3.5-5.1); Total Bilirubin 0.2 mg/dL (0.2-1.3); Total Protein 6.2 g/dL (6.3-8.2)
[2019-02-23 22:40] LABS: Color,Urine Brown
[2019-02-23 22:41] LABS: Appearance,Urine Bloody (Clear)
[2019-02-23 22:44] LABS: RBC,Urine >182 /hpf (0-5); WBC,Urine 43 /hpf (0-5)
[2019-02-24] MEDS ORDERED: NALOXONE 0.4 MG/ML 1 ML VIAL IV PRN (00:20)
[2019-02-24 01:29] VITALS: BMI 27.7
[2019-02-24] MEDS: SODIUM CHLORIDE 0.9% 1,000 ML IV SCH ×4 (01:55→22:07)
[2019-02-24] MEDS ORDERED: ACETAMINOPHEN TAB 325 MG TAB PO PRN (08:31)
[2019-02-24] MEDS ORDERED: BUTALB/APAP/CAFF 50-325-40MG TAB PO PRN (08:31)
[2019-02-24] MEDS: PANTOPRAZOLE 40 MG TABLET PO SCH ×2 (10:30→17:39)
[2019-02-24] MEDS: METOPROLOL SUCCINATE (ER) 50 MG TAB.ER.24H PO SCH (10:30)
[2019-02-24] MEDS: TAMSULOSIN 0.4 MG CAP.ER.24H PO SCH ×2 (10:30→21:32)
[2019-02-24] MEDS: LORATADINE 10 MG TAB PO SCH (10:30)
[2019-02-24] MEDS: GABAPENTIN 300 MG CAP PO SCH ×2 (10:31→21:32)
[2019-02-24] MEDS: GLIMEPIRIDE 2 MG TAB PO SCH ×2 (10:31→21:33)
[2019-02-24] MEDS: cloNIDine HCL 0.1 MG TAB PO SCH ×2 (10:31→21:32)
[2019-02-24] MEDS: ISOSORBIDE MONONITRATE ER 60 MG TAB.ER.24H PO SCH (10:31)
[2019-02-24] MEDS: CITALOPRAM HYDROBROMIDE 20 MG TAB PO SCH (10:31)
[2019-02-24] MEDS: DOCUSATE 100 MG CAP PO SCH ×2 (10:31→21:32)
[2019-02-24] MEDS: amLODIPine 5 MG TAB PO SCH ×2 (10:31→21:32)
[2019-02-24] MEDS: LINAGLIPTIN 5 MG TABLET PO SCH (10:32)
[2019-02-24] MEDS: hydrALAZINE HCL 50 MG TAB PO SCH ×4 (10:33→22:40)
[2019-02-24 10:57] LABS: Glucose,Whole Blood 94 mg/dL (75-99)
--- NOTE | 2019-02-24 11:59 | P.NPCON ---
History of Present Illness - Reason for Consult acute renal failure, chronic renal failure - History of Present Illness Reason for consultation: Acute kidney injury on chronic kidney disease History of present illness: Patient is a 53-year-old male seen in consultation for acute kidney injury on chronic kidney disease. Patient has chronic kidney disease stage III with baseline creatinine in the range of 1.6-2 secondary to diabetic kidney disease. Patient also has history of urinary retention And BPH. He underwent prior pulmonary February 09. Subsequently the patient had hematuria and hemoglobin dropped down to 6.7. He did receive blood transfusion. Hemoglobin this admission is stable. Patient states he was having trouble voiding and also had hematuria. Yesterday he was seen by the urologist and a Garcia catheter was placed. He is currently nonoliguric but the urine is bloody appearing. He denies chest pain or shortness of breath. No vomiting or diarrhea. Oral intake is fair. Creatinine was 3.07 on admission yesterday. Labs from today are pending. Hemodynamically stable. Vital signs are stable. General: The patient appeared well nourished and normally developed. HEENT: Head exam is unremarkable. Neck is without jugular venous distension. LUNGS: Lungs are clear to auscultation and percussion. Breath sounds decreased. HEART: Rate and Rhythm are regular. First and second heart sounds normal. No murmurs, rubs or gallops. ABDOMEN: Abdominal exam reveals normal bowel sounds. Non-tender and non- distended. No evidence of peritonitis. EXTREMITITES: No clubbing, cyanosis, or edema. Past Medical History Past Medical History: Coronary Artery Disease (CAD), CVA/TIA, Diabetes Mellitus, GERD/Reflux, Hyperlipidemia, Hypertension, Myocardial Infarction ([place]), Renal Disease, Rheumatoid Arthritis (RA) Additional Past Medical History / Comment(s): stroke apr 2017, migranes, diabetic neuropathy arms and legs, stage 2 kidney failure, PANCREATITIS, LEGALLY BLIND, enlarged prostate, trouble urinating, tremors Last Myocardial Infarction Date:: 2014? not sure History of Any Multi-Drug Resistant Organisms: None Reported Past Surgical History: Heart Catheterization With Stent Additional Past Surgical History / Comment(s): TURP 02/09/2019 Past Anesthesia/Blood Transfusion Reactions: No Reported Reaction Additional Past Anesthesia/Blood Transfusion Reaction / Comment(s): never had anethesia Date of Last Stent Placement:: 2018 Past Psychological History: Anxiety, Depression Additional Psychological History / Comment(s): Pt resides with his spouse. He uses a quad cane or walker to ambulate. He is legally blind. He reads minimally with magnifying glass and signs his name only now. His spouse drives him to [employer]. Smoking Status: Never smoker Past Alcohol Use History: None Reported Past Drug Use History: None Reported - Past Family History Mother Family Medical History: CVA/TIA, Diabetes Mellitus, Hypertension Additional Family Medical History / Comment(s): Parkinson's Mother is 77yrs old. Father Family Medical History: CVA/TIA, Diabetes Mellitus, Myocardial Infarction ([place]) Additional Family Medical History / Comment(s): Father of a [place] in his 50s. Medications and Allergies Home Medications Medication Instructions Recorded Confirmed Type Docusate Sodium [Dok] 100 mg PO BID 09/12/17 02/23/19 History Gabapentin 600 mg PO BID 09/12/17 02/23/19 History Glimepiride [Amaryl] 2 mg PO BID 09/12/17 02/23/19 History Lurasidone [Latuda] 40 mg PO HS 09/12/17 02/23/19 History Pantoprazole [Protonix] 40 mg PO BID 11/05/17 02/23/19 History Tamsulosin [Flomax] 0.4 mg PO BID 11/05/17 02/23/19 History Atorvastatin [Lipitor] 80 mg PO HS tab 11/12/17 02/23/19 Rx Clopidogrel [Plavix] 75 mg PO HS 12/09/17 02/23/19 History Butalb/APAP/Caff 50-325-40Mg 1 tab PO Q4H PRN 12/12/18 02/23/19 History [Fioricet 50-325-40] Citalopram Hydrobromide [CeleXA] 60 mg PO DAILY 12/12/18 02/23/19 History Loratadine [Claritin] 10 mg PO DAILY 12/12/18 02/23/19 History Aspirin 81 mg PO HS 01/17/19 02/23/19 History Acetaminophen Tab [Tylenol] 650 mg PO Q6HR PRN tab 01/26/19 02/23/19 Rx Isosorbide Mononitrate ER [Imdur] 60 mg PO DAILY #30 tab.er.24h 01/26/19 02/23/19 Rx Metoprolol Succinate (ER) [Toprol 50 mg PO DAILY #30 tab 01/26/19 02/23/19 Rx XL] amLODIPine [Norvasc] 5 mg PO BID #60 tab 01/26/19 02/23/19 Rx hydrALAZINE HCL [Apresoline] 100 mg PO QID #120 tab 01/26/19 02/23/19 Rx Darbepoetin Omari [Aranesp] 100 mcg SQ Q7D syringe 02/15/19 02/23/19 Rx cloNIDine HCL [Catapres] 0.1 mg PO BID #60 tab 02/15/19 02/23/19 Rx Furosemide [Lasix] 40 mg PO TID 02/22/19 02/23/19 History sitaGLIPtin PHOSPHATE [Januvia] 50 mg PO DAILY 02/22/19 02/23/19 History Ergocalciferol (Vitamin D2) 50,000 unit PO MOFR 02/23/19 02/23/19 History [Drisdol] Allergies Allergy/AdvReac Type Severity Reaction Status Date / Time Iodinated Contrast- Oral and Allergy Nausea & Verified 02/23/19 20:53 IV Dye Vomiting Physical Exam Vitals: Vital Signs Temp Pulse Pulse Resp BP BP Pulse Ox 02/24/19 05:06 98.2 F 90 18 121/68 95 02/24/19 01:28 98.1 F 74 18 141/69 97 02/23/19 23:44 97.8 F 70 18 123/59 98 02/23/19 22:14 70 18 128/65 98 02/23/19 20:03 97.8 F 76 20 149/73 98 Intake and Output 02/23/19 02/24/19 02/24/19 22:59 06:59 14:59 Output Total 1200 1000 Balance -1200 -1000 Output: Urine 1200 1000 Other: Weight 85.275 kg Results - Lab Results Most recent lab results Calcium 8.1 mg/dL (8.4-10.2) L 02/23/19 21:40 02/23/19 21:40 02/23/19 21:40 Assessment and Plan Plan: Assessment: 1. Acute kidney injury secondary to urinary retention. Creatinine 3.07 on admission yesterday. Labs from today are pending. 2. BPH and urinary retention status post TURP on February 09. Garcia catheter placed yesterday. 3. Anemia of chronic kidney disease as well as component of acute blood loss postsurgery. 4. Chronic kidney disease stage III with baseline creatinine in the range of 1. 62 secondary to diabetic kidney disease. Serologic workup in the past has been negative. 5. Diabetes mellitus. 6. Coronary artery disease. Patient had a cardiac catheterization done in January 2019. 7. Hematuria. Possibly traumatic. Urology consulted. 8. Chronic diastolic CHF with moderate mitral regurgitation. Plan: Decrease rate of normal saline to 75 mL an hour. Maintain Garcia catheter. Maintain Flomax. Hold diuretics. Repeat electrolytes in the morning. Check iron studies. Maintain Aranesp. Thank you for the consultation. I will continue to follow the patient with you during his hospital stay.
--- NOTE | 2019-02-24 13:37 | P.HPIM ---
History of Present Illness This is a pleasant 53 years old male with past medical history of coronary artery disease, diabetes mellitus, CVA/TIA, GERD, hyperlipidemia, hypertension, rheumatoid arthritis, migraine, diabetic neuropathy, chronic kidney disease s tage II, pancreatitis, legally blind, BPH. This is the third admission regarding his renal problem. He was recently discharged from the hospital on 02/15/2019 for hematuria following a TURP procedure. On the day of discharge Garcia catheter was discontinued, however Patient has difficulty urination with suprapubic tenderness. As per patient he went to Dr. Bermudez in the office place a Garcia catheter and at that time he had hematuria. Yesterday it was taken the Garcia of again and he developed the same symptoms of difficulty urination with hematuria and suprapubic tenderness so he decided to come to the hospital. Currently his suprapubic pain is better controlled about 5/10 in severity and he is resting comfortably in bed. Garcia catheter is replaced and he has T colored urine. Vitals are stable. Labs showing hemoglobin of 8.3,Baseline hemoglobin 6.7-8.4. Creatinine 3.0, baseline 1.7-2.0. Liver enzymes not elevated. Urinalysis showing blood cells more than 182. On admission patient was started on normal saline at 75 mL/h and consult for nephrology and urology consult Review of Systems CONSTITUTIONAL: No fever, no malaise, no fatigue. HEENT: No recent visual problems or hearing problems. Denied any sore throat. CARDIOVASCULAR: No orthopnea, PND, no palpitations, no syncope. PULMONARY: No shortness of breath, no cough, no hemoptysis. GASTROINTESTINAL: No diarrhea, no nausea, no vomiting, no abdominal pain. Normoactive bowel sounds. NEUROLOGICAL: No headaches, no weakness, no numbness. HEMATOLOGICAL: Denies any bleeding or petechiae. GENITOURINARY: Denies any burning micturition, frequency, or urgency. MUSCULOSKELETAL/RHEUMATOLOGICAL: Denies any joint pain, swelling, or any muscle pain. ENDOCRINE: Denies any polyuria or polydipsia. Past Medical History Past Medical History: Coronary Artery Disease (CAD), CVA/TIA, Diabetes Mellitus, GERD/Reflux, Hyperlipidemia, Hypertension, Myocardial Infarction (ME), Renal Disease, Rheumatoid Arthritis (RA) Additional Past Medical History / Comment(s): stroke apr 2017, migranes, diabetic neuropathy arms and legs, stage 2 kidney failure, PANCREATITIS, LEGALLY BLIND, enlarged prostate, trouble urinating, tremors Last Myocardial Infarction Date:: 2014? not sure History of Any Multi-Drug Resistant Organisms: None Reported Past Surgical History: Heart Catheterization With Stent Additional Past Surgical History / Comment(s): TURP 02/09/2019 Past Anesthesia/Blood Transfusion Reactions: No Reported Reaction Additional Past Anesthesia/Blood Transfusion Reaction / Comment(s): never had anethesia Date of Last Stent Placement:: 2017 Past Psychological History: Anxiety, Depression Additional Psychological History / Comment(s): Pt resides with his spouse. He uses a quad cane or walker to ambulate. He is legally blind. He reads minimally with magnifying glass and signs his name only now. His spouse drives him to [place]. Smoking Status: Never smoker Past Alcohol Use History: None Reported Past Drug Use History: None Reported - Past Family History Mother Family Medical History: CVA/TIA, Diabetes Mellitus, Hypertension Additional Family Medical History / Comment(s): Parkinson's Mother is 77yrs old. Father Family Medical History: CVA/TIA, Diabetes Mellitus, Myocardial Infarction (ME) Additional Family Medical History / Comment(s): Father of a ME in his 50s. Medications and Allergies Home Medications Medication Instructions Recorded Confirmed Type Docusate Sodium [Dok] 100 mg PO BID 09/12/17 02/23/19 History Gabapentin 600 mg PO BID 09/12/17 02/23/19 History Glimepiride [Amaryl] 2 mg PO BID 09/12/17 02/23/19 History Lurasidone [Latuda] 40 mg PO HS 09/12/17 02/23/19 History Pantoprazole [Protonix] 40 mg PO BID 11/05/17 02/23/19 History Tamsulosin [Flomax] 0.4 mg PO BID 11/05/17 02/23/19 History Atorvastatin [Lipitor] 80 mg PO HS tab 11/12/17 02/23/19 Rx Clopidogrel [Plavix] 75 mg PO HS 12/09/17 02/23/19 History Butalb/APAP/Caff 50-325-40Mg 1 tab PO Q4H PRN 12/12/18 02/23/19 History [Fioricet 50-325-40] Citalopram Hydrobromide [CeleXA] 60 mg PO DAILY 12/12/18 02/23/19 History Loratadine [Claritin] 10 mg PO DAILY 12/12/18 02/23/19 History Aspirin 81 mg PO HS 01/17/19 02/23/19 History Acetaminophen Tab [Tylenol] 650 mg PO Q6HR PRN tab 01/26/19 02/23/19 Rx Isosorbide Mononitrate ER [Imdur] 60 mg PO DAILY #30 tab.er.24h 01/26/19 02/23/19 Rx Metoprolol Succinate (ER) [Toprol 50 mg PO DAILY #30 tab 01/26/19 02/23/19 Rx XL] amLODIPine [Norvasc] 5 mg PO BID #60 tab 01/26/19 02/23/19 Rx hydrALAZINE HCL [Apresoline] 100 mg PO QID #120 tab 01/26/19 02/23/19 Rx Darbepoetin Omari [Aranesp] 100 mcg SQ Q7D syringe 02/15/19 02/23/19 Rx cloNIDine HCL [Catapres] 0.1 mg PO BID #60 tab 02/15/19 02/23/19 Rx Furosemide [Lasix] 40 mg PO TID 02/22/19 02/23/19 History sitaGLIPtin PHOSPHATE [Januvia] 50 mg PO DAILY 02/22/19 02/23/19 History Ergocalciferol (Vitamin D2) 50,000 unit PO MOFR 02/23/19 02/23/19 History [Drisdol] Allergies Allergy/AdvReac Type Severity Reaction Status Date / Time Iodinated Contrast- Oral and Allergy Nausea & Verified 02/23/19 20:53 IV Dye Vomiting Physical Exam Vitals: Vital Signs Temp Pulse Pulse Resp BP BP Pulse Ox 02/24/19 11:16 98.0 F 66 18 121/58 96 02/24/19 05:06 98.2 F 90 18 121/68 95 02/24/19 01:28 98.1 F 74 18 141/69 97 02/23/19 23:44 97.8 F 70 18 123/59 98 02/23/19 22:14 70 18 128/65 98 02/23/19 20:03 97.8 F 76 20 149/73 98 Intake and Output 02/23/19 02/24/19 02/24/19 22:59 06:59 14:59 Output Total 1200 1000 Balance -1200 -1000 Output: Urine 1200 1000 Other: Weight 85.275 kg GENERAL: The patient is alert and oriented x3, not in any acute distress. Well developed, well nourished. HEENT: Pupils are round and equally reacting to light. EOMI. No scleral icterus. No conjunctival pallor. Normocephalic, atraumatic. No pharyngeal erythema. No thyromegaly. CARDIOVASCULAR: S1 and S2 present. No murmurs, rubs, or gallops. PULMONARY: Chest is clear to auscultation, no wheezing or crackles. -ABDOMEN: Soft, mild suprapubic tenderness. No rebound tenderness, nondistended, normoactive bowel sounds. No palpable organomegaly. Garcia catheter is in place with the-colored urine MUSCULOSKELETAL: No joint swelling or deformity. EXTREMITIES: No cyanosis, clubbing, or pedal edema. NEUROLOGICAL: Gross neurological examination did not reveal any focal deficits. SKIN: No rashes. Results CBC & Chem 7: 02/23/19 21:40 02/23/19 21:40 Labs: Abnormal Lab Results - Last 24 Hours (Table) 02/23/19 02/23/19 02/23/19 Range/Units 21:40 21:40 22:14 RBC 2.82 L (4.30-5.90) m/uL Hgb 8.3 L (13.0-17.5) gm/dL Hct 24.2 L (39.0-53.0) % Plt Count 129 L (150-450) k/uL BUN 46 H (9-20) mg/dL Creatinine 3.07 H (0.66-1.25) mg/dL Glucose 199 H (74-99) mg/dL Calcium 8.1 L (8.4-10.2) mg/dL Total Protein 6.2 L (6.3-8.2) g/dL Urine RBC >182 H (0-5) /hpf Urine WBC 43 H (0-5) /hpf Thrombosis Risk Factor Assmnt - Choose All That Apply Any of the Below Risk Factors Present?: Yes Each Factor Represents 1 point: Age 41-60 years, Obesity (BMI >25) Other Risk Factors: No Other congenital or acquired thrombophilia - If yes, enter type in comment: No Thrombosis Risk Factor Assessment Total Risk Factor Score: 2 Thrombosis Risk Factor Assessment Level: Low Risk Assessment and Plan Assessment: Hematuria, with recent history of TURP done by Dr. Bermudez Acute kidney injury History of coronary artery disease Hypertension Hyperlipidemia Diabetes mellitus Diabetic neuropathy Legally blind Chronic kidney disease and diabetic nephropathy History of pancreatitis History of BPH, status post TURP procedure on 02/[address] Adams GERD Rheumatoid arthritis Plan: This is a pleasant 53 years old male who presents with hematuria in view of his recent TURP surgery. We'll consult urology team. Nephrology already evaluated the patient and recommended to continue with IV fluids. Continue with Garcia catheter. Continue with Flomax. Stop Lasix. Iron profile. Labs and medication were reviewed.. Continue same treatment. Continue with symptomatic treatment. Resume home medication. Monitor lytes and vitals. DVT and GI prophylaxis. Further recommendations of the clinical course of the patient DVT prophylaxis: No heparin in view of the hematuria and significant anemia. Mechanical prophylaxis GI Prophylaxis: Pepcid Prognosis is guarded
--- NOTE | 2019-02-24 16:11 | P.GSCN ---
History of Present Illness Consult date: 02/24/19 Reason for Consult: Hematuria Requesting physician: Gabi Bernal History of present illness: 53 yo male admitted to the hospital for MIKEY and hematuria. He has hx of urinary retention S/P TURP on 01/2019. Has failed multiple TOV post operatively. Bustos catheter was placed yesterday in the office due to retention of 800 mL. He indicated after bustos placement has noticed minimal urine output and hematuria. denies any severe abdominal pain, fever/chills. On examination today urine is light pink with old blood clots in the tube. Review of Systems - Constitutional Denies chills, Denies fever - Cardiovascular Denies palpitations, Denies shortness of breath - Respiratory Denies cough, Denies dyspnea - Gastrointestinal Denies abdominal pain, Denies nausea, Denies vomiting - Genitourinary Reports hematuria, Reports urinary retention - Neurological Reports headaches, Denies syncope, Denies weakness Past Medical History Past Medical History: Coronary Artery Disease (CAD), CVA/TIA, Diabetes Mellitus, GERD/Reflux, Hyperlipidemia, Hypertension, Myocardial Infarction (GA), Renal Disease, Rheumatoid Arthritis (RA) Additional Past Medical History / Comment(s): stroke apr 2017, migranes, diabetic neuropathy arms and legs, stage 2 kidney failure, PANCREATITIS, LEGALLY BLIND, enlarged prostate, trouble urinating, tremors Last Myocardial Infarction Date:: 2014? not sure History of Any Multi-Drug Resistant Organisms: None Reported Past Surgical History: Heart Catheterization With Stent Additional Past Surgical History / Comment(s): TURP 02/09/2019 Past Anesthesia/Blood Transfusion Reactions: No Reported Reaction Additional Past Anesthesia/Blood Transfusion Reaction / Comm: never had anethesia Date of Last Stent Placement:: 2017 Past Psychological History: Anxiety, Depression Additional Psychological History / Comment(s): Pt resides with his spouse. He uses a quad cane or walker to ambulate. He is legally blind. He reads [place] y with magnifying glass and signs his name only now. His spouse drives him to [employer]. Smoking Status: Never smoker Past Alcohol Use History: None Reported Past Drug Use History: None Reported - Past Family History Mother Family Medical History: CVA/TIA, Diabetes Mellitus, Hypertension Additional Family Medical History / Comment(s): Parkinson's Mother is 77yrs old. Father Family Medical History: CVA/TIA, Diabetes Mellitus, Myocardial Infarction (GA) Additional Family Medical History / Comment(s): Father of a GA in his 50s. Medications and Allergies Home Medications Medication Instructions Recorded Confirmed Type Docusate Sodium [Dok] 100 mg PO BID 09/12/17 02/23/19 History Gabapentin 600 mg PO BID 09/12/17 02/23/19 History Glimepiride [Amaryl] 2 mg PO BID 09/12/17 02/23/19 History Lurasidone [Latuda] 40 mg PO HS 09/12/17 02/23/19 History Pantoprazole [Protonix] 40 mg PO BID 11/05/17 02/23/19 History Tamsulosin [Flomax] 0.4 mg PO BID 11/05/17 02/23/19 History Atorvastatin [Lipitor] 80 mg PO HS tab 11/12/17 02/23/19 Rx Clopidogrel [Plavix] 75 mg PO HS 12/09/17 02/23/19 History Butalb/APAP/Caff 50-325-40Mg 1 tab PO Q4H PRN 12/12/18 02/23/19 History [Fioricet 50-325-40] Citalopram Hydrobromide [CeleXA] 60 mg PO DAILY 12/12/18 02/23/19 History Loratadine [Claritin] 10 mg PO DAILY 12/12/18 02/23/19 History Aspirin 81 mg PO HS 01/17/19 02/23/19 History Acetaminophen Tab [Tylenol] 650 mg PO Q6HR PRN tab 01/26/19 02/23/19 Rx Isosorbide Mononitrate ER [Imdur] 60 mg PO DAILY #30 tab.er.24h 01/26/19 02/23/19 Rx Metoprolol Succinate (ER) [Toprol 50 mg PO DAILY #30 tab 01/26/19 02/23/19 Rx XL] amLODIPine [Norvasc] 5 mg PO BID #60 tab 01/26/19 02/23/19 Rx hydrALAZINE HCL [Apresoline] 100 mg PO QID #120 tab 01/26/19 02/23/19 Rx Darbepoetin Omari [Aranesp] 100 mcg SQ Q7D syringe 02/15/19 02/23/19 Rx cloNIDine HCL [Catapres] 0.1 mg PO BID #60 tab 02/15/19 02/23/19 Rx Furosemide [Lasix] 40 mg PO TID 02/22/19 02/23/19 History sitaGLIPtin PHOSPHATE [Januvia] 50 mg PO DAILY 02/22/19 02/23/19 History Ergocalciferol (Vitamin D2) 50,000 unit PO MOFR 02/23/19 02/23/19 History [Drisdol] Allergies Allergy/AdvReac Type Severity Reaction Status Date / Time Iodinated Contrast- Oral and Allergy Nausea & Verified 02/23/19 20:53 IV Dye Vomiting Surgical - Exam Vital Signs Temp Pulse Resp BP Pulse Ox 97.8 F 76 20 149/73 98 02/23/19 20:03 02/23/19 20:03 02/23/19 20:03 02/23/19 20:03 02/23/19 20:03 - General no no distress, no no pain - Respiratory normal expansion, normal respiratory effort - Abdomen Abdomen: soft, non tender - Genitourinary other (Bustos draining light pink urine with some old blood clots ) - Psychiatric oriented to time, oriented to person, oriented to place Results - Labs 02/23/19 21:40 02/23/19 21:40 Abnormal Lab Results - Last 24 Hours (Table) 02/23/19 02/23/19 02/23/19 Range/Units 21:40 21:40 22:14 RBC 2.82 L (4.30-5.90) m/uL Hgb 8.3 L (13.0-17.5) gm/dL Hct 24.2 L (39.0-53.0) % Plt Count 129 L (150-450) k/uL BUN 46 H (9-20) mg/dL Creatinine 3.07 H (0.66-1.25) mg/dL Glucose 199 H (74-99) mg/dL Calcium 8.1 L (8.4-10.2) mg/dL Total Protein 6.2 L (6.3-8.2) g/dL Urine RBC >182 H (0-5) /hpf Urine WBC 43 H (0-5) /hpf Diabetes panel 02/23/19 Range/Units 21:40 Sodium 137 (137-145) mmol/L Potassium 4.2 (3.5-5.1) mmol/L Chloride 100 (98-107) mmol/L Carbon Dioxide 27 (22-30) mmol/L BUN 46 H (9-20) mg/dL Creatinine 3.07 H (0.66-1.25) mg/dL Glucose 199 H (74-99) mg/dL Calcium 8.1 L (8.4-10.2) mg/dL AST 21 (17-59) U/L ALT 32 (21-72) U/L Alkaline Phosphatase 92 (38-126) U/L Total Protein 6.2 L (6.3-8.2) g/dL Albumin 3.7 (3.5-5.0) g/dL Calcium panel 02/23/19 Range/Units 21:40 Calcium 8.1 L (8.4-10.2) mg/dL Albumin 3.7 (3.5-5.0) g/dL Pituitary panel 02/23/19 Range/Units 21:40 Sodium 137 (137-145) mmol/L Potassium 4.2 (3.5-5.1) mmol/L Chloride 100 (98-107) mmol/L Carbon Dioxide 27 (22-30) mmol/L BUN 46 H (9-20) mg/dL Creatinine 3.07 H (0.66-1.25) mg/dL Glucose 199 H (74-99) mg/dL Calcium 8.1 L (8.4-10.2) mg/dL Adrenal panel 02/23/19 Range/Units 21:40 Sodium 137 (137-145) mmol/L Potassium 4.2 (3.5-5.1) mmol/L Chloride 100 (98-107) mmol/L Carbon Dioxide 27 (22-30) mmol/L BUN 46 H (9-20) mg/dL Creatinine 3.07 H (0.66-1.25) mg/dL Glucose 199 H (74-99) mg/dL Calcium 8.1 L (8.4-10.2) mg/dL Total Bilirubin 0.2 (0.2-1.3) mg/dL AST 21 (17-59) U/L ALT 32 (21-72) U/L Alkaline Phosphatase 92 (38-126) U/L Total Protein 6.2 L (6.3-8.2) g/dL Albumin 3.7 (3.5-5.0) g/dL Assessment and Plan Assessment: 53 yo male with hx of urinary retention S/P TURP, failed multiple TOV. Admitted for MIKEY and hematuria. Heamturia improving since admission Plan: -On evaluation today, minimal hematuri, Hgb stable. Hematuria secondary to Recent TURP and recent catheter placement -If hematuria worsen can irrigate catheter q 4 PRN -Discharge home with catheter, he will f/u next week with Dr Harris for TOV
[2019-02-24 16:45] LABS: Basophils % (A) 0 %; Eosinophils # (A) 0.3 k/uL (0-0.7); Eosinophils % (A) 5 %; HCT 22.3 % (39.0-53.0); HGB 7.5 gm/dL (13.0-17.5); Lymphocytes # (A) 1.5 k/uL (1.0-4.8); Lymphocytes % (A) 24 %; MCH 29.8 pg (25.0-35.0); MCHC 33.5 g/dL (31.0-37.0); MCV 88.8 fL (80.0-100.0); Monocytes # (A) 0.4 k/uL (0-1.0); Monocytes % (A) 6 %; Neutrophils % (A) 62 %; Platelet Count 117 k/uL (150-450); RBC 2.51 m/uL (4.30-5.90); RDW 15.6 % (11.5-15.5); WBC 6.5 k/uL (3.8-10.6)
[2019-02-24 16:58] LABS: ALT 22 U/L (21-72); AST 20 U/L (17-59); African American GFR (CKD) 35 (>60 ml/min/1.73 sqM); Alkaline Phosphatase 74 U/L (38-126); Anion Gap 8 mmol/L; Blood Urea Nitrogen 36 mg/dL (9-20); Calcium 7.7 mg/dL (8.4-10.2); Carbon Dioxide 24 mmol/L (22-30); Chloride 104 mmol/L (98-107); Glucose 192 mg/dL (74-99); Potassium 4.1 mmol/L (3.5-5.1); Sodium 136 mmol/L (137-145); Total Bilirubin <0.1 mg/dL (0.2-1.3); Total Protein 5.3 g/dL (6.3-8.2)
[2019-02-24 16:59] LABS: Glucose,Whole Blood 214 mg/dL (75-99)
[2019-02-24 19:55] LABS: Iron Saturation 21.49 (15.00-50.00)
[2019-02-24 20:45] LABS: Glucose,Whole Blood 173 mg/dL (75-99)
[2019-02-24] MEDS: ATORVASTATIN 80 MG TAB PO SCH (21:32)
[2019-02-24] MEDS: LURASIDONE 40 MG TAB PO SCH (21:33)
[2019-02-25 06:56] LABS: Glucose,Whole Blood 119 mg/dL (75-99)
[2019-02-25] MEDS: GLIMEPIRIDE 2 MG TAB PO SCH ×2 (08:51→21:09)
[2019-02-25] MEDS: GABAPENTIN 300 MG CAP PO SCH ×2 (08:51→21:09)
[2019-02-25] MEDS: ISOSORBIDE MONONITRATE ER 60 MG TAB.ER.24H PO SCH (08:51)
[2019-02-25] MEDS: hydrALAZINE HCL 50 MG TAB PO SCH ×4 (08:51→21:09)
[2019-02-25] MEDS: TAMSULOSIN 0.4 MG CAP.ER.24H PO SCH ×2 (08:51→21:08)
[2019-02-25] MEDS: LORATADINE 10 MG TAB PO SCH (08:51)
[2019-02-25] MEDS: CITALOPRAM HYDROBROMIDE 20 MG TAB PO SCH (08:51)
[2019-02-25] MEDS: cloNIDine HCL 0.1 MG TAB PO SCH ×2 (08:51→21:09)
[2019-02-25] MEDS: DOCUSATE 100 MG CAP PO SCH ×2 (08:52→21:08)
[2019-02-25] MEDS: amLODIPine 5 MG TAB PO SCH ×2 (08:52→21:09)
[2019-02-25] MEDS: METOPROLOL SUCCINATE (ER) 50 MG TAB.ER.24H PO SCH (08:52)
[2019-02-25] MEDS: LINAGLIPTIN 5 MG TABLET PO SCH (08:52)
[2019-02-25] MEDS: PANTOPRAZOLE 40 MG TABLET PO SCH ×2 (08:52→17:57)
[2019-02-25] MEDS ORDERED: ERGOCALCIFEROL 50,000 UNIT CAP PO SCH (09:00)
[2019-02-25 10:17] LABS: Calcium 8.2 mg/dL (8.4-10.2); Magnesium 2.2 mg/dL (1.6-2.3); Potassium 4.9 mmol/L (3.5-5.1)
[2019-02-25 11:11] LABS: HCT 24.9 % (39.0-53.0); HGB 8.1 gm/dL (13.0-17.5); MCH 28.8 pg (25.0-35.0); MCHC 32.3 g/dL (31.0-37.0); MCV 89.3 fL (80.0-100.0); Mean Platelet Volume 6.8; Platelet Count 132 k/uL (150-450); RBC 2.79 m/uL (4.30-5.90); RDW 15.5 % (11.5-15.5); WBC 5.9 k/uL (3.8-10.6)
[2019-02-25 11:17] LABS: Glucose,Whole Blood 168 mg/dL (75-99)
--- NOTE | 2019-02-25 11:36 | P.PN ---
Subjective Patient is seen in follow-up for acute kidney injury on chronic kidney disease. Renal function is improving. Creatinine 2.11 today. He has a Garcia catheter in place. Urine output over 4 L in the last 24 hours. No vomiting or diarrhea. Vital signs are stable. General: The patient appeared well nourished and normally developed. HEENT: Head exam is unremarkable. Neck is without jugular venous distension. LUNGS: Lungs are clear to auscultation and percussion. Breath sounds decreased. HEART: Rate and Rhythm are regular. First and second heart sounds normal. No murmurs, rubs or gallops. ABDOMEN: Abdominal exam reveals normal bowel sounds. Non-tender and non- distended. No evidence of peritonitis. EXTREMITITES: No clubbing, cyanosis, or edema. Objective - Vital Signs Vital signs: Vital Signs Temp 97.9 F 02/25/19 04:42 Pulse 68 02/25/19 08:57 Resp 16 02/25/19 04:42 BP 146/70 02/25/19 08:57 Pulse Ox 97 02/25/19 04:42 Intake & Output 02/24/19 02/25/19 02/25/19 18:59 06:59 18:59 Intake Total 1760 825 Output Total 2550 1700 Balance -790 -875 Intake: Intake, IV Titration 900 825 Amount Sodium Chloride 0.9% 1, 900 825 000 ml @ 75 mls/hr IV . [id number] COUNT INCLUDES THE [facility] Rx#:[id number] Oral 860 Output: Urine 2550 1700 Uretheral (Garcia) 1700 Other: Voiding Method Indwelling Catheter Indwelling Catheter Indwelling Catheter - Labs CBC & Chem 7: 02/25/19 09:39 02/25/19 09:39 Labs: Abnormal Lab Results - Last 24 Hours (Table) 02/23/19 02/24/19 02/24/19 Range/Units 21:40 16:27 16:27 RBC 2.51 L (4.30-5.90) m/uL Hgb 7.5 L (13.0-17.5) gm/dL Hct 22.3 L (39.0-53.0) % RDW 15.6 H (11.5-15.5) % Plt Count 117 L (150-450) k/uL Sodium 136 L (137-145) mmol/L Chloride (98-107) mmol/L BUN 36 H (9-20) mg/dL Creatinine 2.42 H (0.66-1.25) mg/dL Glucose 192 H (74-99) mg/dL POC Glucose (mg/dL) (75-99) mg/dL Calcium 7.7 L (8.4-10.2) mg/dL Iron 52 L (65-175) ug/dL Ferritin 341.6 H (22.0-322.0) ng/mL Total Bilirubin <0.1 L (0.2-1.3) mg/dL Total Protein 5.3 L (6.3-8.2) g/dL Albumin 3.0 L (3.5-5.0) g/dL 02/24/19 02/24/19 02/25/19 Range/Units 16:57 20:44 06:55 RBC (4.30-5.90) m/uL Hgb (13.0-17.5) gm/dL Hct (39.0-53.0) % RDW (11.5-15.5) % Plt Count (150-450) k/uL Sodium (137-145) mmol/L Chloride (98-107) mmol/L BUN (9-20) mg/dL Creatinine (0.66-1.25) mg/dL Glucose (74-99) mg/dL POC Glucose (mg/dL) 214 H 173 H 119 H (75-99) mg/dL Calcium (8.4-10.2) mg/dL Iron (65-175) ug/dL Ferritin (22.0-322.0) ng/mL Total Bilirubin (0.2-1.3) mg/dL Total Protein (6.3-8.2) g/dL Albumin (3.5-5.0) g/dL 02/25/19 02/25/19 02/25/19 Range/Units 09:39 09:39 11:16 RBC 2.79 L (4.30-5.90) m/uL Hgb 8.1 L (13.0-17.5) gm/dL Hct 24.9 L (39.0-53.0) % RDW (11.5-15.5) % Plt Count 132 L (150-450) k/uL Sodium (137-145) mmol/L Chloride 108 H (98-107) mmol/L BUN 27 H (9-20) mg/dL Creatinine 2.11 H (0.66-1.25) mg/dL Glucose 174 H (74-99) mg/dL POC Glucose (mg/dL) 168 H (75-99) mg/dL Calcium 8.2 L (8.4-10.2) mg/dL Iron (65-175) ug/dL Ferritin (22.0-322.0) ng/mL Total Bilirubin (0.2-1.3) mg/dL Total Protein (6.3-8.2) g/dL Albumin (3.5-5.0) g/dL Assessment and Plan Plan: Assessment: 1. Acute kidney injury secondary to urinary retention. Creatinine 3.07 on admission and is down to 2.11 today. 2. BPH and urinary retention status post TURP on February 09. Garcia catheter placed February 23. 3. Anemia of chronic kidney disease as well as component of acute blood loss postsurgery. Mild iron deficiency noted. Maintained on Aranesp. 4. Chronic kidney disease stage III with baseline creatinine in the range of 1.6-2 secondary to diabetic kidney disease. Serologic workup in the past has been negative. 5. Diabetes mellitus. 6. Coronary artery disease. Patient had a cardiac catheterization done in January 2019. 7. Hematuria. Possibly traumatic. Urology consulted. 8. Chronic diastolic CHF with moderate mitral regurgitation. Plan: Decrease rate of normal saline to 50 mL an hour. Maintain Garcia catheter. Maintain Flomax. Hold diuretics. Repeat electrolytes in the morning. 2 doses of IV iron. First dose today.
[2019-02-25] MEDS: SODIUM FERRIC GLUCONAT-SUCROSE 125 MG in SODIUM CHLORIDE 0.9% 100 ML IVPB SCH (13:02)
--- NOTE | 2019-02-25 14:54 | P.PN ---
Subjective Progress Note Date: 02/25/19 Principal diagnosis: Hematuria; recent history of TURP Worsening renal failure 53 years old male with past medical history of coronary artery disease, diabetes mellitus, CVA/TIA, GERD, hyperlipidemia, hypertension, rheumatoid arthritis, migraine, diabetic neuropathy, chronic kidney disease stage II, pancreatitis, legally blind, BPH, who underwent TURP on 02/15/2019 presents to ED with persistent hematuria; patient was also found in acute on chronic renal failure and is admitted to the hospital for nephrology and urology evaluation 02/25/2019 Patient is seen and evaluated in room at bedside; vital signs remained stable; labs are stable with a white blood count of 5.9, hemoglobin 8.1 and platelet count of 132; chemical profile sodium of 139, potassium 4.9, BUN 27 and creatinine of 2.11; urology has seen patient and recommending for patient to be monitored closely; nephrology continuing patient on slow IV fluid hydration and monitoring renal function closely Objective - Vital Signs Vital signs: Vital Signs Temp 97.9 F 02/25/19 04:42 Pulse 68 02/25/19 08:57 Resp 16 02/25/19 04:42 BP 146/70 02/25/19 08:57 Pulse Ox 97 02/25/19 04:42 Intake & Output 02/24/19 02/25/19 02/25/19 18:59 06:59 18:59 Intake Total 1760 825 Output Total 2550 1700 Balance -790 -875 Intake: Intake, IV Titration 900 825 Amount Sodium Chloride 0.9% 1, 900 825 000 ml @ 75 mls/hr IV . [id number] [facility] Rx#:[id number] Oral 860 Output: Urine 2550 1700 Uretheral (Garcia) 1700 Other: Voiding Method Indwelling Catheter Indwelling Catheter Indwelling Catheter - Exam GENERAL: The patient is alert and oriented x3, not in any acute distress. Well developed, well nourished. HEENT: Pupils are round and equally reacting to light. EOMI. No scleral icterus. No conjunctival pallor. Normocephalic, atraumatic. No pharyngeal erythema. No thyromegaly. CARDIOVASCULAR: S1 and S2 present. No murmurs, rubs, or gallops. PULMONARY: Chest is clear to auscultation, no wheezing or crackles. -ABDOMEN: Soft, mild suprapubic tenderness. No rebound tenderness, nondistended, normoactive bowel sounds. No palpable organomegaly. Garcia catheter is in place with the-colored urine MUSCULOSKELETAL: No joint swelling or deformity. EXTREMITIES: No cyanosis, clubbing, or pedal edema. NEUROLOGICAL: Gross neurological examination did not reveal any focal deficits. SKIN: No rashes. - Labs CBC & Chem 7: 02/25/19 09:39 02/25/19 09:39 Labs: Abnormal Lab Results - Last 24 Hours (Table) 02/23/19 02/24/19 02/24/19 Range/Units 21:40 16:27 16:27 RBC 2.51 L (4.30-5.90) m/uL Hgb 7.5 L (13.0-17.5) gm/dL Hct 22.3 L (39.0-53.0) % RDW 15.6 H (11.5-15.5) % Plt Count 117 L (150-450) k/uL Sodium 136 L (137-145) mmol/L Chloride (98-107) mmol/L BUN 36 H (9-20) mg/dL Creatinine 2.42 H (0.66-1.25) mg/dL Glucose 192 H (74-99) mg/dL POC Glucose (mg/dL) (75-99) mg/dL Calcium 7.7 L (8.4-10.2) mg/dL Iron 52 L (65-175) ug/dL Ferritin 341.6 H (22.0-322.0) ng/mL Total Bilirubin <0.1 L (0.2-1.3) mg/dL Total Protein 5.3 L (6.3-8.2) g/dL Albumin 3.0 L (3.5-5.0) g/dL 02/24/19 02/24/19 02/25/19 Range/Units 16:57 20:44 06:55 RBC (4.30-5.90) m/uL Hgb (13.0-17.5) gm/dL Hct (39.0-53.0) % RDW (11.5-15.5) % Plt Count (150-450) k/uL Sodium (137-145) mmol/L Chloride (98-107) mmol/L BUN (9-20) mg/dL Creatinine (0.66-1.25) mg/dL Glucose (74-99) mg/dL POC Glucose (mg/dL) 214 H 173 H 119 H (75-99) mg/dL Calcium (8.4-10.2) mg/dL Iron (65-175) ug/dL Ferritin (22.0-322.0) ng/mL Total Bilirubin (0.2-1.3) mg/dL Total Protein (6.3-8.2) g/dL Albumin (3.5-5.0) g/dL 02/25/19 Range/Units 09:39 RBC (4.30-5.90) m/uL Hgb (13.0-17.5) gm/dL Hct (39.0-53.0) % RDW (11.5-15.5) % Plt Count (150-450) k/uL Sodium (137-145) mmol/L Chloride 108 H (98-107) mmol/L BUN 27 H (9-20) mg/dL Creatinine 2.11 H (0.66-1.25) mg/dL Glucose 174 H (74-99) mg/dL POC Glucose (mg/dL) (75-99) mg/dL Calcium 8.2 L (8.4-10.2) mg/dL Iron (65-175) ug/dL Ferritin (22.0-322.0) ng/mL Total Bilirubin (0.2-1.3) mg/dL Total Protein (6.3-8.2) g/dL Albumin (3.5-5.0) g/dL Assessment and Plan Assessment: Hematuria, with recent history of TURP done by Dr. Bermudez Acute kidney injury History of coronary artery disease Hypertension Hyperlipidemia Diabetes mellitus Diabetic neuropathy Legally blind Chronic kidney disease and diabetic nephropathy History of pancreatitis History of BPH, status post TURP procedure on 02/[address] Adams GERD Rheumatoid arthritis Plan: We'll consult urology team. Nephrology already evaluated the patient and recommended to continue with IV fluids. Continue with Garcia catheter. Continue with Flomax. Stop Lasix. Iron profile. Labs and medication were reviewed.. Continue same treatment. Continue with symptomatic treatment. Resume home medication. Monitor lytes and vitals. DVT and GI prophylaxis. Further recommendations of the clinical course of the patient DVT prophylaxis: No heparin in view of the hematuria and significant anemia. Mechanical prophylaxis GI Prophylaxis: Pepcid Time with Patient: Greater than 30
[2019-02-25 17:13] LABS: Glucose,Whole Blood 124 mg/dL (75-99)
[2019-02-25 20:04] LABS: Glucose,Whole Blood 183 mg/dL (75-99)
[2019-02-25] MEDS: LURASIDONE 40 MG TAB PO SCH (21:09)
[2019-02-25] MEDS: ATORVASTATIN 80 MG TAB PO SCH (21:09)
[2019-02-26] MEDS: SODIUM CHLORIDE 0.9% 1,000 ML IV SCH (06:00)
[2019-02-26 07:06] LABS: Basophils % (A) 1 %; Eosinophils # (A) 0.3 k/uL (0-0.7); Eosinophils % (A) 5 %; HCT 24.5 % (39.0-53.0); Hypochromasia Slight; Lymphocytes % (A) 18 %; MCH 29.2 pg (25.0-35.0); MCHC 32.4 g/dL (31.0-37.0); Mean Platelet Volume 6.9; Monocytes # (A) 0.4 k/uL (0-1.0); Monocytes % (A) 7 %; Neutrophils # (A) 3.7 k/uL (1.3-7.7); Neutrophils % (A) 67 %; Platelet Count 123 k/uL (150-450); RBC 2.73 m/uL (4.30-5.90); RDW 15.1 % (11.5-15.5); WBC 5.5 k/uL (3.8-10.6)
[2019-02-26 07:14] LABS: Calcium 8.2 mg/dL (8.4-10.2); Magnesium 2.3 mg/dL (1.6-2.3); Potassium 4.6 mmol/L (3.5-5.1)
[2019-02-26 07:26] LABS: Glucose,Whole Blood 105 mg/dL (75-99)
[2019-02-26] MEDS: PANTOPRAZOLE 40 MG TABLET PO SCH ×2 (08:24→16:28)
[2019-02-26] MEDS: CITALOPRAM HYDROBROMIDE 20 MG TAB PO SCH (08:24)
[2019-02-26] MEDS: cloNIDine HCL 0.1 MG TAB PO SCH ×2 (08:24→21:20)
[2019-02-26] MEDS: GABAPENTIN 300 MG CAP PO SCH ×2 (08:24→21:21)
[2019-02-26] MEDS: DOCUSATE 100 MG CAP PO SCH ×2 (08:24→21:20)
[2019-02-26] MEDS: GLIMEPIRIDE 2 MG TAB PO SCH ×2 (08:24→21:22)
[2019-02-26] MEDS: amLODIPine 5 MG TAB PO SCH ×2 (08:24→21:20)
[2019-02-26] MEDS: hydrALAZINE HCL 50 MG TAB PO SCH ×4 (08:24→21:21)
[2019-02-26] MEDS: LORATADINE 10 MG TAB PO SCH (08:25)
[2019-02-26] MEDS: METOPROLOL SUCCINATE (ER) 50 MG TAB.ER.24H PO SCH (08:25)
[2019-02-26] MEDS: LINAGLIPTIN 5 MG TABLET PO SCH (08:25)
[2019-02-26] MEDS: TAMSULOSIN 0.4 MG CAP.ER.24H PO SCH ×2 (08:25→21:20)
[2019-02-26] MEDS: ISOSORBIDE MONONITRATE ER 60 MG TAB.ER.24H PO SCH (08:25)
[2019-02-26] MEDS ORDERED: FUROSEMIDE 10 MG/ML 4 ML VIAL IV STA (09:14)
--- NOTE | 2019-02-26 09:15 | P.PN ---
Subjective Patient is seen in follow-up for acute kidney injury on chronic kidney disease. Renal function is improving. Creatinine 1.9 today. He has a Garcia catheter in place. Urine output near 3 L in the last 24 hours. No vomiting or diarrhea. Hematuria resolving. Vital signs are stable. General: The patient appeared well nourished and normally developed. HEENT: Head exam is unremarkable. Neck is without jugular venous distension. LUNGS: Lungs are clear to auscultation and percussion. Breath sounds decreased. HEART: Rate and Rhythm are regular. First and second heart sounds normal. No murmurs, rubs or gallops. ABDOMEN: Abdominal exam reveals normal bowel sounds. Non-tender and non- distended. No evidence of peritonitis. EXTREMITITES: 1+ edema. Objective - Vital Signs Vital signs: Vital Signs Temp 97.6 F 02/26/19 05:04 Pulse 62 02/26/19 05:04 Resp 18 02/26/19 05:04 BP 111/59 02/26/19 05:04 Pulse Ox 97 02/26/19 05:04 Intake & Output 02/25/19 02/26/19 02/26/19 18:59 06:59 18:59 Intake Total 500 625 Output Total 975 1999 Balance -475 1375 Intake: Intake, IV Titration 500 625 Amount Sodium Chloride 0.9% 1, 400 625 000 ml @ 50 mls/hr IV . Q20H [facility] Rx#:[id number] Sodium Ferric Gluconat- 100 Sucrose 125 mg In Sodium Chloride 0.9% 100 ml @ 100 mls/hr IVPB DAILY [facility] Rx#:[id number] Output: Urine 975 2000 Uretheral (Garcia) 975 1999 Other: Voiding Method Indwelling Catheter Indwelling Catheter - Labs CBC & Chem 7: 02/26/19 06:27 02/26/19 06:27 Labs: Abnormal Lab Results - Last 24 Hours (Table) 02/25/19 02/25/19 02/25/19 Range/Units 09:39 09:39 11:16 RBC 2.79 L (4.30-5.90) m/uL Hgb 8.1 L (13.0-17.5) gm/dL Hct 24.9 L (39.0-53.0) % Plt Count 132 L (150-450) k/uL Chloride 108 H (98-107) mmol/L BUN 27 H (9-20) mg/dL Creatinine 2.11 H (0.66-1.25) mg/dL Glucose 174 H (74-99) mg/dL POC Glucose (mg/dL) 168 H (75-99) mg/dL Calcium 8.2 L (8.4-10.2) mg/dL 02/25/19 02/25/19 02/26/19 Range/Units 17:12 20:03 06:27 RBC (4.30-5.90) m/uL Hgb (13.0-17.5) gm/dL Hct (39.0-53.0) % Plt Count (150-450) k/uL Chloride 111 H (98-107) mmol/L BUN 24 H (9-20) mg/dL Creatinine 1.90 H (0.66-1.25) mg/dL Glucose (74-99) mg/dL POC Glucose (mg/dL) 124 H 183 H (75-99) mg/dL Calcium 8.2 L (8.4-10.2) mg/dL 02/26/19 02/26/19 Range/Units 06:27 07:24 RBC 2.73 L (4.30-5.90) m/uL Hgb 8.0 L (13.0-17.5) gm/dL Hct 24.5 L (39.0-53.0) % Plt Count 123 L (150-450) k/uL Chloride (98-107) mmol/L BUN (9-20) mg/dL Creatinine (0.66-1.25) mg/dL Glucose (74-99) mg/dL POC Glucose (mg/dL) 105 H (75-99) mg/dL Calcium (8.4-10.2) mg/dL Assessment and Plan Plan: Assessment: 1. Acute kidney injury secondary to urinary retention. Creatinine 3.07 on admission and is down to 1.9 today. 2. BPH and urinary retention status post TURP on February 09. Garcia catheter placed February 23. 3. Anemia of chronic kidney disease as well as component of acute blood loss postsurgery. Mild iron deficiency noted. Maintained on Aranesp. 4. Chronic kidney disease stage III with baseline creatinine in the range of 1.6-2 secondary to diabetic kidney disease. Serologic workup in the past has been negative. 5. Diabetes mellitus. 6. Coronary artery disease. Patient had a cardiac catheterization done in January 2019. 7. Hematuria. Possibly traumatic. Urology consulted. 8. Chronic diastolic CHF with moderate mitral regurgitation. 9. Lower extremity edema. Plan: Hep-Lock IV fluids. Lasix 40 mg IV once today. Maintain Garcia catheter. Maintain Flomax. Repeat electrolytes in the morning. 2 doses of IV iron. Second dose today.
[2019-02-26] MEDS: SODIUM FERRIC GLUCONAT-SUCROSE 125 MG in SODIUM CHLORIDE 0.9% 100 ML IVPB SCH (10:22)
[2019-02-26 11:03] LABS: Glucose,Whole Blood 276 mg/dL (75-99)
[2019-02-26 16:42] LABS: Glucose,Whole Blood 124 mg/dL (75-99)
[2019-02-26 20:00] LABS: Glucose,Whole Blood 151 mg/dL (75-99)
[2019-02-26] MEDS: ATORVASTATIN 80 MG TAB PO SCH (21:19)
[2019-02-26] MEDS: LURASIDONE 40 MG TAB PO SCH (21:21)
[2019-02-27 06:57] LABS: Glucose,Whole Blood 103 mg/dL (75-99)
[2019-02-27 07:13] LABS: Basophils % (A) 0 %; Eosinophils # (A) 0.3 k/uL (0-0.7); Eosinophils % (A) 5 %; HGB 8.5 gm/dL (13.0-17.5); Lymphocytes # (A) 1.1 k/uL (1.0-4.8); Lymphocytes % (A) 19 %; MCH 29.7 pg (25.0-35.0); MCHC 34.2 g/dL (31.0-37.0); Mean Platelet Volume 6.4; Monocytes # (A) 0.4 k/uL (0-1.0); Monocytes % (A) 7 %; Neutrophils # (A) 3.7 k/uL (1.3-7.7); Neutrophils % (A) 67 %; Platelet Count 126 k/uL (150-450); RBC 2.88 m/uL (4.30-5.90); RDW 15.5 % (11.5-15.5); WBC 5.5 k/uL (3.8-10.6)
[2019-02-27 07:23] LABS: Calcium 8.4 mg/dL (8.4-10.2); Magnesium 2.1 mg/dL (1.6-2.3); Potassium 4.4 mmol/L (3.5-5.1)
[2019-02-27] MEDS: GABAPENTIN 300 MG CAP PO SCH (08:31)
[2019-02-27] MEDS: hydrALAZINE HCL 50 MG TAB PO SCH ×2 (08:31→12:45)
[2019-02-27] MEDS: TAMSULOSIN 0.4 MG CAP.ER.24H PO SCH (08:31)
[2019-02-27] MEDS: PANTOPRAZOLE 40 MG TABLET PO SCH (08:31)
[2019-02-27] MEDS: DOCUSATE 100 MG CAP PO SCH (08:31)
[2019-02-27] MEDS: amLODIPine 5 MG TAB PO SCH (08:31)
[2019-02-27] MEDS: LORATADINE 10 MG TAB PO SCH (08:31)
[2019-02-27] MEDS: cloNIDine HCL 0.1 MG TAB PO SCH (08:31)
[2019-02-27] MEDS: CITALOPRAM HYDROBROMIDE 20 MG TAB PO SCH (08:31)
[2019-02-27] MEDS: GLIMEPIRIDE 2 MG TAB PO SCH (08:32)
[2019-02-27] MEDS: ISOSORBIDE MONONITRATE ER 60 MG TAB.ER.24H PO SCH (08:32)
[2019-02-27] MEDS: LINAGLIPTIN 5 MG TABLET PO SCH (08:33)
[2019-02-27] MEDS: METOPROLOL SUCCINATE (ER) 50 MG TAB.ER.24H PO SCH (08:33)
--- NOTE | 2019-02-27 10:07 | P.PN ---
Subjective Patient is seen in follow-up for acute kidney injury on chronic kidney disease. Renal function is stable. Creatinine 1.91 today. He has a Garcia catheter in place. Urine output over 5 L in the last 24 hours. No vomiting or diarrhea. Hematuria resolving. Vital signs are stable. General: The patient appeared well nourished and normally developed. HEENT: Head exam is unremarkable. Neck is without jugular venous distension. LUNGS: Lungs are clear to auscultation and percussion. Breath sounds decreased. HEART: Rate and Rhythm are regular. First and second heart sounds normal. No murmurs, rubs or gallops. ABDOMEN: Abdominal exam reveals normal bowel sounds. Non-tender and non- distended. No evidence of peritonitis. EXTREMITITES: 1+ edema. Objective - Vital Signs Vital signs: Vital Signs Temp 97.9 F 02/27/19 05:00 Pulse 64 02/27/19 05:00 Resp 18 02/27/19 05:00 BP 109/59 02/27/19 05:00 Pulse Ox 97 02/27/19 05:00 Intake & Output 02/26/19 02/27/19 02/27/19 18:59 06:59 18:59 Intake Total 780 1160 Output Total 3950 1800 500 Balance -3170 -640 -500 Intake: Intake, IV Titration 180 160 Amount Sodium Chloride 0.9% 1, 80 160 000 ml @ 50 mls/hr IV . Q20H [facility] Rx#:[id number] Sodium Ferric Gluconat- 100 Sucrose 125 mg In Sodium Chloride 0.9% 100 ml @ 100 mls/hr IVPB DAILY [facility] Rx#:[id number] Oral 600 1000 Output: Urine 3950 1800 500 Other: Voiding Method Indwelling Catheter Indwelling Catheter Indwelling Catheter - Labs CBC & Chem 7: 02/27/19 06:30 02/27/19 06:30 Labs: Abnormal Lab Results - Last 24 Hours (Table) 02/26/19 02/26/19 02/26/19 Range/Units 11:01 16:40 19:59 RBC (4.30-5.90) m/uL Hgb (13.0-17.5) gm/dL Hct (39.0-53.0) % Plt Count (150-450) k/uL Chloride (98-107) mmol/L Creatinine (0.66-1.25) mg/dL POC Glucose (mg/dL) 276 H 124 H 151 H (75-99) mg/dL 02/27/19 02/27/19 02/27/19 Range/Units 06:30 06:30 06:56 RBC 2.88 L (4.30-5.90) m/uL Hgb 8.5 L (13.0-17.5) gm/dL Hct 25.0 L (39.0-53.0) % Plt Count 126 L (150-450) k/uL Chloride 108 H (98-107) mmol/L Creatinine 1.91 H (0.66-1.25) mg/dL POC Glucose (mg/dL) 103 H (75-99) mg/dL Assessment and Plan Plan: Assessment: 1. Acute kidney injury secondary to urinary retention. Creatinine 3.07 on admission and is stable at 1.9 today. 2. BPH and urinary retention status post TURP on February 09. Garcia catheter placed February 23. 3. Anemia of chronic kidney disease as well as component of acute blood loss postsurgery. Mild iron deficiency noted - s/p 2 doses of IV iron. Maintained on Aranesp. 4. Chronic kidney disease stage III with baseline creatinine in the range of 1.6-2 secondary to diabetic kidney disease. Serologic workup in the past has been negative. 5. Diabetes mellitus. 6. Coronary artery disease. Patient had a cardiac catheterization done in January 2019. 7. Hematuria. Possibly traumatic and recent TURP. Urology following. Improving. 8. Chronic diastolic CHF with moderate mitral regurgitation. 9. Lower extremity edema. Better. Plan: Lasix 40 mg orally once daily. Maintain Garcia catheter. Maintain Flomax. Repeat electrolytes in the morning.
[2019-02-27] MEDS ORDERED: FUROSEMIDE 40 MG TAB PO SCH (10:15)
--- NOTE | 2019-02-27 10:38 | P.PN ---
Subjective Progress Note Date: 02/26/19 Principal diagnosis: Hematuria; recent history of TURP Worsening renal failure 53 years old male with past medical history of coronary artery disease, diabetes mellitus, CVA/TIA, GERD, hyperlipidemia, hypertension, rheumatoid arthritis, migraine, diabetic neuropathy, chronic kidney disease stage II, pancreatitis, legally blind, BPH, who underwent TURP on 02/15/2019 presents to ED with persistent hematuria; patient was also found in acute on chronic renal failure and is admitted to the hospital for nephrology and urology evaluation 02/25/2019 Patient is seen and evaluated in room at bedside; vital signs remained stable; labs are stable with a white blood count of 5.9, hemoglobin 8.1 and platelet count of 132; chemical profile sodium of 139, potassium 4.9, BUN 27 and creatinine of 2.11; urology has seen patient and recommending for patient to be monitored closely; nephrology continuing patient on slow IV fluid hydration and monitoring renal function closely 02/26/2019 Patient is seen in follow-up for acute kidney injury on chronic kidney disease. Renal function is improving. Creatinine 1.9 today. He has a Garcia catheter in place. Urine output near 3 L in the last 24 hours. No vomiting or diarrhea. Hematuria resolving. Objective - Vital Signs Vital signs: Vital Signs Temp 97.6 F 02/26/19 05:04 Pulse 62 02/26/19 05:04 Resp 18 02/26/19 05:04 BP 111/59 02/26/19 05:04 Pulse Ox 97 02/26/19 05:04 Intake & Output 02/25/19 02/26/19 02/26/19 18:59 06:59 18:59 Intake Total 500 625 Output Total 975 1999 Balance -475 -1375 Intake: Intake, IV Titration 500 625 Amount Sodium Chloride 0.9% 1, 400 625 000 ml @ 50 mls/hr IV . Q20H [facility] Rx#:[id number] Sodium Ferric Gluconat- 100 Sucrose 125 mg In Sodium Chloride 0.9% 100 ml @ 100 mls/hr IVPB DAILY [facility] Rx#:[id number] Output: Urine 975 2000 Uretheral (Garcia) 975 1999 Other: Voiding Method Indwelling Catheter Indwelling Catheter - Exam GENERAL: The patient is alert and oriented x3, not in any acute distress. Well developed, well nourished. HEENT: Pupils are round and equally reacting to light. EOMI. No scleral icterus. No conjunctival pallor. Normocephalic, atraumatic. No pharyngeal erythema. No thyromegaly. CARDIOVASCULAR: S1 and S2 present. No murmurs, rubs, or gallops. PULMONARY: Chest is clear to auscultation, no wheezing or crackles. -ABDOMEN: Soft, mild suprapubic tenderness. No rebound tenderness, nondistended, normoactive bowel sounds. No palpable organomegaly. Garcia catheter is in place with the-colored urine MUSCULOSKELETAL: No joint swelling or deformity. EXTREMITIES: No cyanosis, clubbing, or pedal edema. NEUROLOGICAL: Gross neurological examination did not reveal any focal deficits. SKIN: No rashes. - Labs CBC & Chem 7: 02/27/19 06:30 02/27/19 06:30 Labs: Abnormal Lab Results - Last 24 Hours (Table) 02/25/19 02/25/19 02/25/19 Range/Units 09:39 09:39 11:16 RBC 2.79 L (4.30-5.90) m/uL Hgb 8.1 L (13.0-17.5) gm/dL Hct 24.9 L (39.0-53.0) % Plt Count 132 L (150-450) k/uL Chloride 108 H (98-107) mmol/L BUN 27 H (9-20) mg/dL Creatinine 2.11 H (0.66-1.25) mg/dL Glucose 174 H (74-99) mg/dL POC Glucose (mg/dL) 168 H (75-99) mg/dL Calcium 8.2 L (8.4-10.2) mg/dL 02/25/19 02/25/19 02/26/19 Range/Units 17:12 20:03 06:27 RBC (4.30-5.90) m/uL Hgb (13.0-17.5) gm/dL Hct (39.0-53.0) % Plt Count (150-450) k/uL Chloride 111 H (98-107) mmol/L BUN 24 H (9-20) mg/dL Creatinine 1.90 H (0.66-1.25) mg/dL Glucose (74-99) mg/dL POC Glucose (mg/dL) 124 H 183 H (75-99) mg/dL Calcium 8.2 L (8.4-10.2) mg/dL 02/26/19 02/26/19 Range/Units 06:27 07:24 RBC 2.73 L (4.30-5.90) m/uL Hgb 8.0 L (13.0-17.5) gm/dL Hct 24.5 L (39.0-53.0) % Plt Count 123 L (150-450) k/uL Chloride (98-107) mmol/L BUN (9-20) mg/dL Creatinine (0.66-1.25) mg/dL Glucose (74-99) mg/dL POC Glucose (mg/dL) 105 H (75-99) mg/dL Calcium (8.4-10.2) mg/dL Assessment and Plan Assessment: Hematuria, with recent history of TURP done by Dr. Bermudez Acute kidney injury History of coronary artery disease Hypertension Hyperlipidemia Diabetes mellitus Diabetic neuropathy Legally blind Chronic kidney disease and diabetic nephropathy History of pancreatitis History of BPH, status post TURP procedure on 02/[address] Adams GERD Rheumatoid arthritis Plan: We'll consult urology team. Nephrology already evaluated the patient and recommended to continue with IV fluids. Continue with Garcia catheter. Continue with Flomax. Stop Lasix. Iron profile. Labs and medication were reviewed.. Continue same treatment. Continue with symptomatic treatment. Resume home medication. Monitor lytes and vitals. DVT and GI prophylaxis. Further recommendations of the clinical course of the patient DVT prophylaxis: No heparin in view of the hematuria and significant anemia. Mechanical prophylaxis GI Prophylaxis: Pepcid Time with Patient: Greater than 30
--- NOTE | 2019-02-27 10:44 | P.DS ---
Providers Date of admission: 02/24/19 00:01 Expected date of discharge: 02/27/19 Attending physician: Shakeel Miramontes Consults: 02/24/19 00:20 Consult Physician Stat Consulting Provider: Ricky Nieves Consult Reason/Comments: acute kidney injury, heamturia s/p turp Do you want consulting provider notified?: Yes 02/24/19 08:37 Consult Physician Stat Consulting Provider: Raj Harris Consult Reason/Comments: hematuria/recent turp Do you want consulting provider notified?: Yes Primary care physician: Tyler Rosenberg [facility] Course: 53 years old male with past medical history of coronary artery disease, diabetes mellitus, CVA/TIA, GERD, hyperlipidemia, hypertension, rheumatoid arthritis, migraine, diabetic neuropathy, chronic kidney disease stage II, pancreatitis, legally blind, BPH, who underwent TURP on 02/15/2019 presents to ED with persistent hematuria; patient was also found in acute on chronic renal failure and is admitted to the hospital for nephrology and urology evaluation 02/25/2019 Patient is seen and evaluated in room at bedside; vital signs remained stable; labs are stable with a white blood count of 5.9, hemoglobin 8.1 and platelet count of 132; chemical profile sodium of 139, potassium 4.9, BUN 27 and creatinine of 2.11; urology has seen patient and recommending for patient to be monitored closely; nephrology continuing patient on slow IV fluid hydration and monitoring renal function closely 02/26/2019 Patient is seen in follow-up for acute kidney injury on chronic kidney disease. Renal function is improving. Creatinine 1.9 today. He has a Garcia catheter in place. Urine output near 3 L in the last 24 hours. No vomiting or diarrhea. Hematuria resolving 02/27/2019; patient's creatinine has stabilized at 1.9; continues to have good urine output and hematuria has resolved; we will discharge patient home to follow-up with urology and nephrology as an outpatient Patient Condition at Discharge: Serious Plan - Discharge Summary Discharge Rx Participant: No New Discharge Prescriptions: Continue Lurasidone [Latuda] 40 mg PO HS Glimepiride [Amaryl] 2 mg PO BID Gabapentin 600 mg PO BID Docusate Sodium [Dok] 100 mg PO BID Pantoprazole [Protonix] 40 mg PO BID Tamsulosin [Flomax] 0.4 mg PO BID Atorvastatin [Lipitor] 80 mg PO HS tab Clopidogrel [Plavix] 75 mg PO HS Loratadine [Claritin] 10 mg PO DAILY Citalopram Hydrobromide [CeleXA] 60 mg PO DAILY Butalb/APAP/Caff 50-325-40Mg [Fioricet 50-325-40] 1 tab PO Q4H PRN PRN Reason: Migraine Headache Aspirin 81 mg PO HS Isosorbide Mononitrate ER [Imdur] 60 mg PO DAILY #30 tab.er.24h Acetaminophen Tab [Tylenol] 650 mg PO Q6HR PRN tab PRN Reason: Fever And/ Or Pain hydrALAZINE HCL [Apresoline] 100 mg PO QID #120 tab amLODIPine [Norvasc] 5 mg PO BID #60 tab Metoprolol Succinate (ER) [Toprol XL] 50 mg PO DAILY #30 tab Darbepoetin Omari [Aranesp] 100 mcg SQ Q7D syringe cloNIDine HCL [Catapres] 0.1 mg PO BID #60 tab sitaGLIPtin PHOSPHATE [Januvia] 50 mg PO DAILY Furosemide [Lasix] 40 mg PO TID Ergocalciferol (Vitamin D2) [Drisdol] 50,000 unit PO MOFR Discharge Medication List Docusate Sodium [Dok] 100 mg PO BID 09/12/17 [History] Gabapentin 600 mg PO BID 09/12/17 [History] Glimepiride [Amaryl] 2 mg PO BID 09/12/17 [History] Lurasidone [Latuda] 40 mg PO HS 09/12/17 [History] Pantoprazole [Protonix] 40 mg PO BID 11/05/17 [History] Tamsulosin [Flomax] 0.4 mg PO BID 11/05/17 [History] Atorvastatin [Lipitor] 80 mg PO HS tab 11/12/17 [Rx] Clopidogrel [Plavix] 75 mg PO HS 12/09/17 [History] Butalb/APAP/Caff 50-325-40Mg [Fioricet 50-325-40] 1 tab PO Q4H PRN 12/12/18 [History] Citalopram Hydrobromide [CeleXA] 60 mg PO DAILY 12/12/18 [History] Loratadine [Claritin] 10 mg PO DAILY 12/12/18 [History] Aspirin 81 mg PO HS 01/17/19 [History] Acetaminophen Tab [Tylenol] 650 mg PO Q6HR PRN tab 01/26/19 [Rx] Isosorbide Mononitrate ER [Imdur] 60 mg PO DAILY #30 tab.er.24h 01/26/19 [Rx] Metoprolol Succinate (ER) [Toprol XL] 50 mg PO DAILY #30 tab 01/26/19 [Rx] amLODIPine [Norvasc] 5 mg PO BID #60 tab 01/26/19 [Rx] hydrALAZINE HCL [Apresoline] 100 mg PO QID #120 tab 01/26/19 [Rx] Darbepoetin Omari [Aranesp] 100 mcg SQ Q7D syringe 02/15/19 [Rx] cloNIDine HCL [Catapres] 0.1 mg PO BID #60 tab 02/15/19 [Rx] Furosemide [Lasix] 40 mg PO TID 02/22/19 [History] sitaGLIPtin PHOSPHATE [Januvia] 50 mg PO DAILY 02/22/19 [History] Ergocalciferol (Vitamin D2) [Drisdol] 50,000 unit PO MOFR 02/23/19 [History] Follow up Appointment(s)/Referral(s): Lamar Scott MD [Primary Care Provider] - 1-2 days Discharge Disposition: HOME SELF-CARE
[2019-02-27] MEDS: SODIUM FERRIC GLUCONAT-SUCROSE 125 MG in SODIUM CHLORIDE 0.9% 100 ML IVPB SCH (11:06)
[2019-02-27 11:10] LABS: Glucose,Whole Blood 141 mg/dL (75-99)
[2019-02-27 12:01] VITALS: BP 121/68; PULSE 61; RESP 17; TEMP 98.1
[2019-03-01] MEDS ORDERED: DARBEPOETIN ALFA 100MCG/0.5ML SYRINGE SQ SCH (09:00)
== END 2019-02-27 15:45 | disposition home or self-care (01) | DRG 683 ==
LOC: EC 20:02 → 3NMEDONC 02-24 00:01
PROVIDERS: ADMIT Hospitalist; ATTEND Hospitalist
DX: N17.9 Acute kidney failure, unspecified (principal); I13.0 Hypertensive heart and chronic kidney disease with heart failure and stage 1 through stage 4 chronic kidney disease, or unspecified chronic kidney disease; I50.32 Chronic diastolic (congestive) heart failure; D62 Acute posthemorrhagic anemia; N18.3 Chronic kidney disease, stage 3 (moderate); E11.22 Type 2 diabetes mellitus with diabetic chronic kidney disease; E11.40 Type 2 diabetes mellitus with diabetic neuropathy, unspecified; I25.10 Atherosclerotic heart disease of native coronary artery without angina pectoris; I25.2 Old myocardial infarction; I34.0 Nonrheumatic mitral (valve) insufficiency; K21.9 Gastro-esophageal reflux disease without esophagitis; M06.9 Rheumatoid arthritis, unspecified; N40.1 Benign prostatic hyperplasia with lower urinary tract symptoms; G43.909 Migraine, unspecified, not intractable, without status migrainosus; R33.8 Other retention of urine; R31.0 Gross hematuria; D63.1 Anemia in chronic kidney disease; E61.1 Iron deficiency; E78.5 Hyperlipidemia, unspecified; F32.9 Major depressive disorder, single episode, unspecified; F41.9 Anxiety disorder, unspecified; H54.8 Legal blindness, as defined in USA; Z79.82 Long term (current) use of aspirin; Z79.84 Long term (current) use of oral hypoglycemic drugs; Z79.899 Other long term (current) drug therapy; Z79.02 Long term (current) use of antithrombotics/antiplatelets; Z91.041 Radiographic dye allergy status; Z86.73 Personal history of transient ischemic attack (TIA), and cerebral infarction without residual deficits; Z90.79 Acquired absence of other genital organ(s); Z95.5 Presence of coronary angioplasty implant and graft; Z82.0 Family history of epilepsy and other diseases of the nervous system; Z82.49 Family history of ischemic heart disease and other diseases of the circulatory system; Z83.3 Family history of diabetes mellitus; Z82.3 Family history of stroke
CPT/HCPCS: 36415; 80048; 80053; 81001; 82550; 82728; 83540; 83550; 83735; 85025; 85027; 96360; 96361; 99285

== ENCOUNTER → 2019-03-08 | Outpatient (CLI) | payer OTHER ==
[2019-03-08 15:36] LABS: Basophils % (A) 0 %; Eosinophils # (A) 0.2 k/uL (0-0.7); Eosinophils % (A) 3 %; HCT 30.3 % (39.0-53.0); Lymphocytes % (A) 17 %; MCH 29.2 pg (25.0-35.0); MCV 88.4 fL (80.0-100.0); Mean Platelet Volume 6.8; Monocytes # (A) 0.5 k/uL (0-1.0); Monocytes % (A) 8 %; Neutrophils # (A) 4.1 k/uL (1.3-7.7); Neutrophils % (A) 70 %; Platelet Count 154 k/uL (150-450); RBC 3.42 m/uL (4.30-5.90); RDW 15.2 % (11.5-15.5); WBC 5.9 k/uL (3.8-10.6)
[2019-03-08 15:44] LABS: Appearance,Urine Cloudy (Clear); Bilirubin,Urine Negative (Negative); Blood,Urine Large (Negative); Color,Urine Red; Glucose,Urine (UA) Negative (Negative); Ketones,Urine Negative (Negative); Leukocyte Esterase,Urine Small (Negative); Nitrite,Urine Negative (Negative); PH, Urine 5.5 (5.0-8.0); Protein,Urine 2+ (Negative); RBC,Urine >182 /hpf (0-5); Specific Gravity,Urine 1.015 (1.001-1.035); Urobilinogen,Urine <2.0 mg/dL (<2.0); WBC,Urine 7 /hpf (0-5)
[2019-03-08 23:39] LABS: Iron Saturation 13.62 (15.00-50.00)
[2019-03-08 23:45] LABS: African American GFR (CKD) 38.8 (60.0-200.0); Anion Gap 9.4 mmol/L (4.00-12.00); BUN/Creat Ratio 14.09 Ratio (12.00-20.00); Calcium 8.7 mg/dL (8.7-10.3); Carbon Dioxide 28.6 mmol/L (21.6-31.8); Magnesium 1.6 mg/dL (1.5-2.4); Phosphorus 3.9 mg/dL (2.4-5.1); Uric Acid 10.7 mg/dL (3.7-8.7)
[2019-03-08 23:46] LABS: Vitamin D 25 Hydroxy 51.7 ng/mL (30.0-100.0)
[2019-03-09 00:55] LABS: Creatinine,Urine Random 74.2 mg/dL
[2019-03-09 00:57] LABS: Total Protein,Urine Random 122.3 mg/dL (0.0-13.5)
== END | disposition home or self-care (01) ==
LOC: LABWHC1 14:58
PROVIDERS: ATTEND Nurse Practitioner Family
DX: N18.9 Chronic kidney disease, unspecified (principal); E55.9 Vitamin D deficiency, unspecified
CPT/HCPCS: 36415; 80048; 81001; 82040; 82306; 82570; 82728; 83540; 83550; 83735; 83970; 84100; 84156; 84550; 85025

== ENCOUNTER 2019-04-05 13:19 | Emergency (ER) | payer OTHER ==
[2019-04-05 13:53] VITALS: RESP 18
[2019-04-05] MEDS ORDERED: LABETALOL 5 MG/ML VIAL MDV IVP STA (14:07)
[2019-04-05 14:43] LABS: Basophils # (A) 0.1 k/uL (0-0.2); Basophils % (A) 1 %; Eosinophils # (A) 0.1 k/uL (0-0.7); Eosinophils % (A) 2 %; HCT 33.8 % (39.0-53.0); HGB 11.2 gm/dL (13.0-17.5); Lymphocytes # (A) 0.7 k/uL (1.0-4.8); Lymphocytes % (A) 11 %; MCH 29.1 pg (25.0-35.0); MCV 88.2 fL (80.0-100.0); Mean Platelet Volume 6.4; Monocytes # (A) 0.5 k/uL (0-1.0); Monocytes % (A) 8 %; Neutrophils # (A) 4.9 k/uL (1.3-7.7); Neutrophils % (A) 77 %; Platelet Count 102 k/uL (150-450); RBC 3.83 m/uL (4.30-5.90); RDW 14.6 % (11.5-15.5); WBC 6.3 k/uL (3.8-10.6)
[2019-04-05 14:56] LABS: Albumin 4.1 g/dL (3.5-5.0); Calcium 9.3 mg/dL (8.4-10.2); INR 0.9 (<1.2); Magnesium 1.7 mg/dL (1.6-2.3); Partial Thromboplastin Time 25.4 sec (22.0-30.0); Potassium 4.9 mmol/L (3.5-5.1); Prothrombin Time 10.1 sec (9.0-12.0); Total Bilirubin 0.5 mg/dL (0.2-1.3)
--- NOTE | 2019-04-05 15:14 | XR ---
EXAMINATION TYPE: XR chest 2V DATE OF EXAM: 04/05/2019 COMPARISON: 01/19/2019 TECHNIQUE: PA and lateral views submitted. HISTORY: Chest pain FINDINGS: The lungs are clear and there is no pneumothorax, pleural effusion, or focal pneumonia. Diffuse ost eopenia. No overt failure. Heart size stable. Hypertrophic and degenerative changes. IMPRESSION: 1. No acute process.
[2019-04-05] MEDS ORDERED: hydrALAZINE HCL 20 MG/ML 1 ML VIAL IVP STA (15:53)
--- NOTE | 2019-04-05 16:02 | ED ---
General Adult HPI - General Chief complaint: Recheck/Abnormal Lab/Rx Stated complaint: High BP Time Seen by Provider: 04/05/19 13:30 Source: patient, RN notes reviewed Mode of arrival: ambulatory Limitations: no limitations - History of Present Illness Initial comments: This is a 53-year-old male who presents emergency Department complaining of high blood pressure. Patient states she was in the hospital for another reason and his blood pressure was taken it was 190 systolics was sent to the emergency department. Patient states he has headache but he states he gets headaches quite often and this feels typical of his normal headache. Patient denies any numbness weakness. Patient denies any visual disturbance patient denies any speech disturbance. Patient has no chest pain patient denies shortness of breath or difficulty breathing. Patient denies any recent fever or chills. Patient states she supposed take medicines at 1:00 and he did not take them. Patient states his only complaint is mild headache. - Related Data Home Medications Medication Instructions Recorded Confirmed Gabapentin 600 mg PO BID 09/12/17 04/05/19 Pantoprazole [Protonix] 40 mg PO BID 11/05/17 04/05/19 Tamsulosin [Flomax] 0.4 mg PO BID 11/05/17 04/05/19 Citalopram Hydrobromide [CeleXA] 60 mg PO DAILY 12/12/18 04/05/19 Loratadine [Claritin] 10 mg PO DAILY 12/12/18 04/05/19 Furosemide [Lasix] 40 mg PO TID 02/22/19 04/05/19 Ergocalciferol (Vitamin D2) 50,000 unit PO MOFR 02/23/19 04/05/19 [Drisdol] Allopurinol [Zyloprim] 100 mg PO DAILY 04/05/19 04/05/19 Glimepiride [Amaryl] 2 mg PO HS 04/05/19 04/05/19 Glimepiride [Amaryl] 4 mg PO DAILY 04/05/19 04/05/19 hydrALAZINE HCL [Apresoline] 100 mg PO TID 04/05/19 04/05/19 sitaGLIPtin [Januvia] 100 mg PO DAILY 04/05/19 04/05/19 Previous Rx's Medication Instructions Recorded Atorvastatin [Lipitor] 80 mg PO HS tab 11/12/17 Isosorbide Mononitrate ER [Imdur] 60 mg PO DAILY #30 tab.er.24h 01/26/19 Metoprolol Succinate (ER) [Toprol 50 mg PO DAILY #30 tab 01/26/19 XL] amLODIPine [Norvasc] 5 mg PO BID #60 tab 01/26/19 cloNIDine HCL [Catapres] 0.1 mg PO BID #60 tab 02/15/19 Allergies Allergy/AdvReac Type Severity Reaction Status Date / Time Iodinated Contrast Media Allergy Nausea & Verified 04/05/19 14:57 [Iodinated Contrast- Oral Vomiting and IV Dye] Review of Systems ROS Statement: Those systems with pertinent positive or pertinent negative responses have been documented in the HPI. ROS Other: All systems not noted in ROS Statement are negative. Past Medical History Past Medical History: Coronary Artery Disease (CAD), CVA/TIA, Diabetes Mellitus, GERD/Reflux, Hyperlipidemia, Hypertension, Myocardial Infarction (MS), Renal Disease, Rheumatoid Arthritis (RA) Additional Past Medical History / Comment(s): stroke apr 2017, migranes, diabetic neuropathy arms and legs, stage 2 kidney failure, PANCREATITIS, LEGALLY BLIND, enlarged prostate, trouble urinating, tremors Last Myocardial Infarction Date:: 2014? not sure History of Any Multi-Drug Resistant Organisms: None Reported Past Surgical History: Heart Catheterization With Stent Additional Past Surgical History / Comment(s): TURP 02/09/2019 Past Anesthesia/Blood Transfusion Reactions: No Reported Reaction Additional Past Anesthesia/Blood Transfusion Reaction / Comment(s): never had anethesia Date of Last Stent Placement:: 2017 Past Psychological History: Anxiety, Depression Smoking Status: Never smoker - Past Family History Mother Family Medical History: CVA/TIA, Diabetes Mellitus, Hypertension Additional Family Medical History / Comment(s): Parkinson's Mother is 77yrs old. Father Family Medical History: CVA/TIA, Diabetes Mellitus, Myocardial Infarction ([place]) Additional Family Medical History / Comment(s): Father of a MS in his 50s. General Exam - General Exam Comments Initial Comments: GENERAL: Patient is well-developed and well-nourished. Patient is nontoxic and well- hydrated and is in mild distress. ENT: Neck is soft and supple. No significant lymphadenopathy is noted. Oropharynx is clear. Moist mucous membranes. Neck has full range of motion without eliciting any pain. EYES: The sclera were anicteric and conjunctiva were pink and moist. Extraocular movements were intact and pupils were equal round and reactive to light. Eyelids were unremarkable. PULMONARY: Unlabored respirations. Good breath sounds bilaterally. No audible rales rhonchi or wheezing was noted. CARDIOVASCULAR: There is a regular rate and rhythm without any murmurs gallops or rubs. ABDOMEN: Soft and nontender with normal bowel sounds. No palpable organomegaly was noted. There is no palpable pulsatile mass. SKIN: Skin is clear with no lesions or rashes and otherwise unremarkable. NEUROLOGIC: Patient is alert and oriented x3. Cranial nerves II through XII are grossly intact. Motor and sensory are also intact. Normal speech, volume and content. Symmetrical smile. MUSCULOSKELETAL: Normal extremities with adequate strength and full range of motion. No lower extremity swelling or edema. No calf tenderness. LYMPHATICS: No significant lymphadenopathy is noted PSYCHIATRIC: Normal psychiatric evaluation. Limitations: no limitations Course Vital Signs 04/05/19 04/05/19 04/05/19 13:26 13:50 15:00 Temperature 98 F Pulse Rate 91 89 76 Respiratory 20 18 18 Rate Blood Pressure 193/90 199/92 178/80 O2 Sat by Pulse 99 98 98 Oximetry Medical Decision Making - Medical Decision Making Chest x-ray shows no acute abnormality. I gave the patient 20 of labetalol to decrease her systolic pressure to 160. Patient at that time states he had much improved with this headache. EKG showed normal sinus rhythm at 85 bpm WA interval is 154 QRS is 94 Q-T in tervals 44 QTC is 480. Patient's EKG shows no ST segment elevation or depression or T wave abnormalities are noted. - Lab Data Result diagrams: 04/05/19 14:20 04/05/19 14:20 Lab Results 04/05/19 04/05/19 04/05/19 Range/Units 14:20 14:20 14:20 WBC 6.3 (3.8-10.6) k/uL RBC 3.83 L (4.30-5.90) m/uL Hgb 11.2 L (13.0-17.5) gm/dL Hct 33.8 L (39.0-53.0) % MCV 88.2 (80.0-100.0) fL MCH 29.1 (25.0-35.0) pg MCHC 33.0 (31.0-37.0) g/dL RDW 14.6 (11.5-15.5) % Plt Count 102 L (150-450) k/uL Neutrophils % 77 % Lymphocytes % 11 % Monocytes % 8 % Eosinophils % 2 % Basophils % 1 % Neutrophils # 4.9 (1.3-7.7) k/uL Lymphocytes # 0.7 L (1.0-4.8) k/uL Monocytes # 0.5 (0-1.0) k/uL Eosinophils # 0.1 (0-0.7) k/uL Basophils # 0.1 (0-0.2) k/uL PT 10.1 (9.0-12.0) sec INR 0.9 (<1.2) APTT 25.4 (22.0-30.0) sec Sodium 135 L (137-145) mmol/L Potassium 4.9 (3.5-5.1) mmol/L Chloride 100 (98-107) mmol/L Carbon Dioxide 32 H (22-30) mmol/L Anion Gap 3 mmol/L BUN 22 H (9-20) mg/dL Creatinine 2.09 H (0.66-1.25) mg/dL Est GFR (CKD-EPI)AfAm 41 (>60 ml/min/1.73 sqM) Est GFR (CKD-EPI)NonAf 36 (>60 ml/min/1.73 sqM) Glucose 266 H (74-99) mg/dL Calcium 9.3 (8.4-10.2) mg/dL Magnesium 1.7 (1.6-2.3) mg/dL Total Bilirubin 0.5 (0.2-1.3) mg/dL AST 40 (17-59) U/L ALT 69 (21-72) U/L Alkaline Phosphatase 83 (38-126) U/L Troponin I (0.000-0.034) ng/mL Total Protein 7.0 (6.3-8.2) g/dL Albumin 4.1 (3.5-5.0) g/dL 04/05/19 Range/Units 14:20 WBC (3.8-10.6) k/uL RBC (4.30-5.90) m/uL Hgb (13.0-17.5) gm/dL Hct (39.0-53.0) % MCV (80.0-100.0) fL MCH (25.0-35.0) pg MCHC (31.0-37.0) g/dL RDW (11.5-15.5) % Plt Count (150-450) k/uL Neutrophils % % Lymphocytes % % Monocytes % % Eosinophils % % Basophils % % Neutrophils # (1.3-7.7) k/uL Lymphocytes # (1.0-4.8) k/uL Monocytes # (0-1.0) k/uL Eosinophils # (0-0.7) k/uL Basophils # (0-0.2) k/uL PT (9.0-12.0) sec INR (<1.2) APTT (22.0-30.0) sec Sodium (137-145) mmol/L Potassium (3.5-5.1) mmol/L Chloride (98-107) mmol/L Carbon Dioxide (22-30) mmol/L Anion Gap mmol/L BUN (9-20) mg/dL Creatinine (0.66-1.25) mg/dL Est GFR (CKD-EPI)AfAm (>60 ml/min/1.73 sqM) Est GFR (CKD-EPI)NonAf (>60 ml/min/1.73 sqM) Glucose (74-99) mg/dL Calcium (8.4-10.2) mg/dL Magnesium (1.6-2.3) mg/dL Total Bilirubin (0.2-1.3) mg/dL AST (17-59) U/L ALT (21-72) U/L Alkaline Phosphatase (38-126) U/L Troponin I 0.020 (0.000-0.034) ng/mL Total Protein (6.3-8.2) g/dL Albumin (3.5-5.0) g/dL Disposition Clinical Impression: Hypertensive urgency Disposition: HOME SELF-CARE Condition: Good Instructions (If sedation given, give patient instructions): Hypertension (ED) Additional Instructions: Patient should take his medications as scheduled even when coming to the hospital. Is patient prescribed a controlled substance at d/c from ED?: No Referrals: Lamar Scott MD [Primary Care Provider] - 1-2 days Time of Disposition: 16:03
[2019-04-05 16:30] VITALS: BP 171/81; PULSE 75; TEMP 97.9
== END 2019-04-05 16:38 | disposition home or self-care (01) ==
LOC: EC 13:19
DX: I16.0 Hypertensive urgency (principal); I25.10 Atherosclerotic heart disease of native coronary artery without angina pectoris; I12.9 Hypertensive chronic kidney disease with stage 1 through stage 4 chronic kidney disease, or unspecified chronic kidney disease; N18.2 Chronic kidney disease, stage 2 (mild); E11.22 Type 2 diabetes mellitus with diabetic chronic kidney disease; E11.42 Type 2 diabetes mellitus with diabetic polyneuropathy; K21.9 Gastro-esophageal reflux disease without esophagitis; I25.2 Old myocardial infarction; H54.8 Legal blindness, as defined in USA; N40.0 Benign prostatic hyperplasia without lower urinary tract symptoms; F32.9 Major depressive disorder, single episode, unspecified; F41.9 Anxiety disorder, unspecified; Z91.041 Radiographic dye allergy status; Z79.84 Long term (current) use of oral hypoglycemic drugs; Z79.899 Other long term (current) drug therapy; Z95.5 Presence of coronary angioplasty implant and graft; Z86.69 Personal history of other diseases of the nervous system and sense organs; Z82.49 Family history of ischemic heart disease and other diseases of the circulatory system; Z53.20 Procedure and treatment not carried out because of patient's decision for unspecified reasons
CPT/HCPCS: 36415; 71046; 80053; 83735; 84484; 85025; 85610; 85730; 93005; 96374; 99284

== ENCOUNTER → 2019-04-08 | Day surgery (SDC) | payer OTHER ==
[2019-04-06 10:33] VITALS: BMI 30.2
[~2019-04-08] MED LIST changes: -AMPICILLIN 1,000 MG in SODIUM CHLORIDE 0.9% 50 ML IVPB ONE; -DEXAMETHASONE SOD PHOSPHATE 10 MG/ML 1 ML VIAL IV ONE; -GENTAMICIN 100 MG in SODIUM CHLORIDE 0.9% 100 ML IVPB ONE; -HYDROmorphone 0.5 MG/0.5 ML SYRINGE IVP PRN; +LACTATED RINGERS 1,000 ML IV SCH; +LIDOCAINE 1% INJ 10MG/ML (20 ML MDV) ONE; -ONDANSETRON 4 MG/2 ML VIAL IVP ONE; +PROPOFOL 10 MG/ML 20 ML VIAL IV ONE; -SCOPOLAMINE 1.5MG/72HR PATCH TRANSDERM ONE
[2019-04-08 07:37] VITALS: TEMP 97.2
[2019-04-08 07:40] LABS: Glucose,Whole Blood 136 mg/dL (75-99)
--- NOTE | 2019-04-08 08:18 | P.PCN ---
Date of Procedure: 04/08/19 Procedure(s) Performed: Brief history: Patient is a pleasant 53-year-old pleasant white male scheduled for an elective upper endoscopy as well as colonoscopy as a part of evaluation of severe symptomatic anemia requiring blood transfusions. He also complains of intermittent episodes of nausea vomiting for the last 1 year duration. Procedure performed: Esophagogastroduodenoscopy with biopsy Colonoscopy Preoperative diagnosis: Intermittent episodes of nausea vomiting and severe symptomatic anemia. Anest[place]: [facility] [place]: After informed consent was obtained from the patient was brought into the endoscopy unit and IV sedation was administered by anesthesia under continuous monitoring. Initially upper endoscopy was done. The Olympus GF 160 video endoscope was inserted inserted into the mouth and esophagus intubated without any difficulty and was gradually advanced into the stomach and duodenum and carefully examined. The bulb and second part of the duodenum appeared normal. The scope was then withdrawn into the stomach adequately insufflated with air and upon careful examination the antrum and mild gastritis and biopsies were done from this area. The body, cardia and fundus appeared normal. The scope was then withdrawn into the esophagus. Small sliding Hiatal hernia noted. The GE junction was located at 40 cm to the incisors. It appeared regular with no erythema erosions or ulcerations. Rest of the esophagus appeared normal. Patient tolerated the procedure well. At this time the patient continued to remain sedation. Initial digital rectal examination was normal. Olympus CF 160 video colonoscope was then inserted into the rectum and gradually advanced to the cecum without any difficulty. Careful examination was performed as the scope was gradually being withdrawn. The prep was excellent. The cecum, ascending colon, transverse colon, descending colon, sigmoid colon and rectum appeared normal. Retroflexion was performed in the rectum and no lesions were noted. Patient tolerated the procedure well. Impression: 1. Upper endoscopy revealed mild antral gastritis and small sliding type hiatal hernia. 2. Colonoscopy is within normal limits with no evidence of colitis or colorectal neoplasia Recommendations: Findings of this examination were discussed with the patient as well as his family. He was advised to follow with the biopsy results. he can have a repeat screening colonoscopy in 10 years.
[2019-04-08 08:28] VITALS: RESP 18
[2019-04-08 09:07] VITALS: BP 167/80; PULSE 60
== END | disposition home or self-care (01) ==
LOC: ORWHC2ENDO 07:05
PROVIDERS: ATTEND Internal Medicine Gastroenterology
DX: K29.50 Unspecified chronic gastritis without bleeding (principal); K44.9 Diaphragmatic hernia without obstruction or gangrene; D64.9 Anemia, unspecified; I25.2 Old myocardial infarction; I10 Essential (primary) hypertension; E78.5 Hyperlipidemia, unspecified; I25.10 Atherosclerotic heart disease of native coronary artery without angina pectoris; Z95.5 Presence of coronary angioplasty implant and graft; N40.0 Benign prostatic hyperplasia without lower urinary tract symptoms; Z91.041 Radiographic dye allergy status; Z79.84 Long term (current) use of oral hypoglycemic drugs; Z79.02 Long term (current) use of antithrombotics/antiplatelets; Z79.899 Other long term (current) drug therapy; E11.9 Type 2 diabetes mellitus without complications; N28.9 Disorder of kidney and ureter, unspecified; Z79.82 Long term (current) use of aspirin
CPT/HCPCS: 88305; 45378; 43239; J2001; J2704

== ENCOUNTER → 2019-06-24 | Outpatient (CLI) | payer OTHER ==
[2019-06-24 15:02] LABS: Appearance,Urine Clear (Clear); Bilirubin,Urine Negative (Negative); Blood,Urine Negative (Negative); Color,Urine Yellow; Glucose,Urine (UA) Negative (Negative); Ketones,Urine Negative (Negative); Leukocyte Esterase,Urine Negative (Negative); Nitrite,Urine Negative (Negative); PH, Urine 6.5 (5.0-8.0); Protein,Urine Trace (Negative); Urobilinogen,Urine <2.0 mg/dL (<2.0)
[2019-06-24 15:13] LABS: Protein/Creatinine Ratio,Urine 0.5
[2019-06-24 15:14] LABS: Basophils % (A) 0 %; Eosinophils # (A) 0.1 k/uL (0-0.7); Eosinophils % (A) 1 %; HCT 27.3 % (39.0-53.0); HGB 9.5 gm/dL (13.0-17.5); Lymphocytes # (A) 1.2 k/uL (1.0-4.8); Lymphocytes % (A) 21 %; MCH 30.5 pg (25.0-35.0); MCHC 34.6 g/dL (31.0-37.0); MCV 88.1 fL (80.0-100.0); Mean Platelet Volume 7.2; Monocytes # (A) 0.4 k/uL (0-1.0); Monocytes % (A) 6 %; Neutrophils # (A) 4.1 k/uL (1.3-7.7); Neutrophils % (A) 70 %; Platelet Count 132 k/uL (150-450); RDW 14.1 % (11.5-15.5); WBC 5.9 k/uL (3.8-10.6)
[2019-06-24 18:45] LABS: % Iron Saturation 29.96 (15.00-50.00); African American GFR (CKD) 30.3 (60.0-200.0); Albumin 4.4 g/dL (3.80-4.90); Anion Gap 8.2 mmol/L (4.00-12.00); BUN/Creat Ratio 17.41 Ratio (12.00-20.00); Calcium 8.9 mg/dL (8.7-10.3); Carbon Dioxide 27.8 mmol/L (21.6-31.8); Magnesium 2.2 mg/dL (1.5-2.4); Non-African American GFR(CKD) 26.1 (60.0-200.0); Phosphorus 3.9 mg/dL (2.4-5.1); Potassium 3.9 mmol/L (3.5-5.5)
[2019-06-24 18:46] LABS: Uric Acid 7.5 mg/dL (3.7-8.7)
== END | disposition home or self-care (01) ==
LOC: LABWHC1 13:44
PROVIDERS: ATTEND Nurse Practitioner Family
DX: E55.9 Vitamin D deficiency, unspecified (principal); N18.9 Chronic kidney disease, unspecified; D63.1 Anemia in chronic kidney disease
CPT/HCPCS: 36415; 80048; 81003; 82040; 82306; 82570; 82728; 83540; 83550; 83735; 83970; 84100; 84156; 84550; 85025

== ENCOUNTER 2019-09-07 13:43 | Emergency (ER) | payer OTHER ==
[2019-09-07 13:54] VITALS: RESP 18
[2019-09-07] MEDS ORDERED: diphenhydrAMINE 50 MG/ML 1 ML VIAL IVP STA (14:28)
[2019-09-07] MEDS ORDERED: HYDROcodone/APAP 7.5-325MG 1 EACH TAB PO ONE (14:28)
[2019-09-07] MEDS ORDERED: methylPREDNISolone SOD SUCCI 125 MG/2 ML VIAL IV STA (14:28)
[2019-09-07] MEDS ORDERED: FAMOTIDINE 20 MG/2 ML VIAL IV STA (14:28)
[2019-09-07 14:50] LABS: Albumin 4.2 g/dL (3.5-5.0); Calcium 9.1 mg/dL (8.4-10.2); Potassium 4.3 mmol/L (3.5-5.1); Total Bilirubin 0.5 mg/dL (0.2-1.3); Total Protein 6.9 g/dL (6.3-8.2)
[2019-09-07] MEDS ORDERED: SODIUM CHLORIDE 0.9% 1,000 ML IV ONE (14:51)
--- NOTE | 2019-09-07 14:55 | ED ---
SOB HPI - General Chief Complaint: Shortness of Breath Stated Complaint: BOBBI Source: patient, EMS Mode of arrival: EMS Limitations: no limitations - History of Present Illness Initial Comments: The patient is a 53-year-old male with multiple comorbid conditions to include coronary artery disease, CVA and diabetes who presents emergency department with reported intrascapular back pain and shortness of breath. The patient reports that he was sitting on the couch this morning he began having a pleuritic chest pain. States it's been constant. He does not take any medications for his symptoms. It is reproducible with movement and to palpation to the site. Denies any trauma. No history of similar in the past. Makes him feel short of breath. He denies cough or hemoptysis. No fevers or chills. Admits to mild anterior chest pain. Patient does see Dr. Church in office. States his last stress test was approximately one year ago. He is on Plavix for his stents and history of CVA. Denies a history of DVT or PE. No lower extremity swelling. Denies any calf pain. No recent travel. The patient has a history of stroke with weakness on his left side. He ambulates with a cane. No sick contacts. EMS was called. Accu-Chek was performed and the patient's blood sugars are close to 600. He does report that he took his Januvia today. There are no alleviating, precipitating or modifying factors - Related Data Home Medications Medication Instructions Recorded Confirmed Gabapentin 600 mg PO TID 09/12/17 09/07/19 Pantoprazole [Protonix] 40 mg PO BID 11/05/17 09/07/19 Tamsulosin [Flomax] 0.4 mg PO BID 11/05/17 09/07/19 Citalopram Hydrobromide [CeleXA] 60 mg PO DAILY 12/12/18 09/07/19 Loratadine [Claritin] 10 mg PO DAILY 12/12/18 09/07/19 Furosemide [Lasix] 40 mg PO BID 02/22/19 09/07/19 Ergocalciferol (Vitamin D2) 50,000 unit PO MO 02/23/19 09/07/19 [Drisdol] Allopurinol [Zyloprim] 100 mg PO BID 04/05/19 09/07/19 hydrALAZINE HCL [Apresoline] 100 mg PO TID 10/15/19 03/18/20 sitaGLIPtin [Januvia] 100 mg PO DAILY 04/05/19 09/07/19 Aspirin [Adult Low Dose Aspirin EC] 81 mg PO DAILY 04/06/19 09/07/19 Clopidogrel Bisulfate [Plavix] 75 mg PO DAILY 04/06/19 09/07/19 Calcitriol [Rocaltrol] 0.25 mcg PO MO 09/07/19 09/07/19 Glimepiride [Amaryl] 4 mg PO [id number] 09/07/19 09/07/19 Lurasidone HCl [Latuda] 60 mg PO HS 09/07/19 09/07/19 Previous Rx's Medication Instructions Recorded Atorvastatin [Lipitor] 80 mg PO HS tab 11/12/17 Isosorbide Mononitrate ER [Imdur] 60 mg PO DAILY #30 tab.er.24h 01/26/19 Metoprolol Succinate (ER) [Toprol 50 mg PO DAILY #30 tab 01/26/19 XL] amLODIPine [Norvasc] 5 mg PO BID #60 tab 01/26/19 cloNIDine HCL [Catapres] 0.1 mg PO BID #60 tab 02/15/19 Methocarbamol [Robaxin] 500 mg PO TID PRN #42 tab 09/07/19 Allergies Allergy/AdvReac Type Severity Reaction Status Date / Time Iodinated Contrast Media Allergy Nausea & Verified 09/07/19 15:55 [Iodinated Contrast- Oral Vomiting and IV Dye] Review of Systems ROS Statement: Those systems with pertinent positive or pertinent negative responses have been documented in the HPI. ROS Other: All systems not noted in ROS Statement are negative. Past Medical History Past Medical History: Coronary Artery Disease (CAD), CVA/TIA, Diabetes Mellitus, GERD/Reflux, Hyperlipidemia, Hypertension, Myocardial Infarction ([place]), Renal Disease, Rheumatoid Arthritis (RA) Additional Past Medical History / Comment(s): stroke apr 2017, migranes, diabetic neuropathy arms and legs, stage 2 kidney failure, PANCREATITIS, LEGALLY BLIND, enlarged prostate, trouble urinating Last Myocardial Infarction Date:: 2014? not sure History of Any Multi-Drug Resistant Organisms: None Reported Past Surgical History: No Surgical Hx Reported, Heart Catheterization With Stent Additional Past Surgical History / Comment(s): Prostrate surgery Past Anesthesia/Blood Transfusion Reactions: No Reported Reaction Additional Past Anesthesia/Blood Transfusion Reaction / Comment(s): never had anethesia Date of Last Stent Placement:: 2017 Past Psychological History: Anxiety, Depression Smoking Status: Never smoker Past Alcohol Use History: None Reported Past Drug Use History: None Reported - Past Family History Mother Family Medical History: CVA/TIA, Diabetes Mellitus, Hypertension Additional Family Medical History / Comment(s): Parkinson's Mother is 77yrs old. Father Family Medical History: CVA/TIA, Diabetes Mellitus, Myocardial Infarction ([place]) Additional Family Medical History / Comment(s): Father of a MN in his 50s. General Exam Limitations: no limitations Course Vital Signs 09/07/19 09/07/19 09/07/19 13:48 13:54 20:14 Temperature 98.6 F 98.3 F Pulse Rate 67 56 L Respiratory 18 18 18 Rate Blood Pressure 177/85 141/82 O2 Sat by Pulse 97 Oximetry Medical Decision Making - Medical Decision Making Upon arrival the patient is placed into room 4. A thorough history and physical exam is performed. The patient does have reproducible pain to palpation of the paraspinal muscles in the thoracic region from T4 through T 10. As the patient is reporting shortness of breath I did recommend laboratory studies. Hemoglobin 10.3. D-dimer mildly elevated at 0.53 creatinine is 2.3. Glucose 436. Lactic acid 2.4. Troponin is negative. BNP is 265. The patient does have chronic kidney disease and therefore is sent for lung perfusion because of his elevated d-dimer. It demonstrates low probability of pulmonary embolus. The patient is sent for an x-ray requirement for the VQ scan which demonstrates no significant findings. Chest CT demonstrates no evidence of bronchopneumonia. Thoracic spine CT demonstrates no fractures. Discuss all of these results with the patient. He has maintained normal vital since he has been in the emergency room. I did provide him with a dose of Robaxin as patient does have reprodu cible tenderness to palpation. I do think the patient benefit from this medication. I did have a lengthy discussion with the regarding the other medications he takes and the possibility of sedation properties. She is to monitor him closely. She is history of leukemia and is requesting an extended amount of medication she is concerned about leaving her house at this time to corn picker his medication. He did compromise and did provide him with a 2 week supply. They need to follow up with the primary care physician for further medication refills. Return to the emergency room for any new or worsening symptoms. The patient and his are in agreement with this and the patient was discharged home in stable condition - Lab Data Result diagrams: 09/07/19 14:04 09/07/19 14:04 Lab Results 09/07/19 09/07/19 09/07/19 Range/Units 14:04 14:04 14:04 WBC 6.5 (3.8-10.6) k/uL RBC 3.41 L (4.30-5.90) m/uL Hgb 10.3 L (13.0-17.5) gm/dL Hct 30.4 L (39.0-53.0) % MCV 89.0 (80.0-100.0) fL MCH 30.1 (25.0-35.0) pg MCHC 33.8 (31.0-37.0) g/dL RDW 14.0 (11.5-15.5) % Plt Count 117 L (150-450) k/uL Neutrophils % 79 % Lymphocytes % 13 % Monocytes % 5 % Eosinophils % 1 % Basophils % 0 % Neutrophils # 5.1 (1.3-7.7) k/uL Lymphocytes # 0.9 L (1.0-4.8) k/uL Monocytes # 0.3 (0-1.0) k/uL Eosinophils # 0.1 (0-0.7) k/uL Basophils # 0.0 (0-0.2) k/uL PT 10.4 (9.0-12.0) sec INR 1.0 (<1.2) APTT 25.6 (22.0-30.0) sec D-Dimer 0.53 (<0.60) mg/L FEU Sodium 134 L (137-145) mmol/L Potassium 4.3 (3.5-5.1) mmol/L Chloride 99 (98-107) mmol/L Carbon Dioxide 24 (22-30) mmol/L Anion Gap 11 mmol/L BUN 33 H (9-20) mg/dL Creatinine 2.33 H (0.66-1.25) mg/dL Est GFR (CKD-EPI)AfAm 36 (>60 ml/min/1.73 sqM) Est GFR (CKD-EPI)NonAf 31 (>60 ml/min/1.73 sqM) Glucose 436 H (74-99) mg/dL POC Glucose (mg/dL) (75-99) mg/dL POC Glu Vest Maker ID Lactic Ac Sepsis Rflx Plasma Lactic Acid Preet (0.7-2.0) mmol/L Calcium 9.1 (8.4-10.2) mg/dL Total Bilirubin 0.5 (0.2-1.3) mg/dL AST 32 (17-59) U/L ALT 34 (4-49) U/L Alkaline Phosphatase 116 (38-126) U/L Troponin I (0.000-0.034) ng/mL NT-Pro-B Natriuret Pep pg/mL Total Protein 6.9 (6.3-8.2) g/dL Albumin 4.2 (3.5-5.0) g/dL 09/07/19 09/07/19 09/07/19 Range/Units 14:04 14:04 14:04 WBC (3.8-10.6) k/uL RBC (4.30-5.90) m/uL Hgb (13.0-17.5) gm/dL Hct (39.0-53.0) % MCV (80.0-100.0) fL MCH (25.0-35.0) pg MCHC (31.0-37.0) g/dL RDW (11.5-15.5) % Plt Count (150-450) k/uL Neutrophils % % Lymphocytes % % Monocytes % % Eosinophils % % Basophils % % Neutrophils # (1.3-7.7) k/uL Lymphocytes # (1.0-4.8) k/uL Monocytes # (0-1.0) k/uL Eosinophils # (0-0.7) k/uL Basophils # (0-0.2) k/uL PT (9.0-12.0) sec INR (<1.2) APTT (22.0-30.0) sec D-Dimer (<0.60) mg/L FEU Sodium (137-145) mmol/L Potassium (3.5-5.1) mmol/L Chloride (98-107) mmol/L Carbon Dioxide (22-30) mmol/L Anion Gap mmol/L BUN (9-20) mg/dL Creatinine (0.66-1.25) mg/dL Est GFR (CKD-EPI)AfAm (>60 ml/min/1.73 sqM) Est GFR (CKD-EPI)NonAf (>60 ml/min/1.73 sqM) Glucose (74-99) mg/dL POC Glucose (mg/dL) (75-99) mg/dL POC Glu Vest Maker ID Lactic Ac Sepsis Rflx Plasma Lactic Acid Preet 2.4 H* (0.7-2.0) mmol/L Calcium (8.4-10.2) mg/dL Total Bilirubin (0.2-1.3) mg/dL AST (17-59) U/L ALT (4-49) U/L Alkaline Phosphatase (38-126) U/L Troponin I <0.012 (0.000-0.034) ng/mL NT-Pro-B Natriuret Pep 265 pg/mL Total Protein (6.3-8.2) g/dL Albumin (3.5-5.0) g/dL 09/07/19 09/07/19 09/07/19 Range/Units 15:00 19:20 19:28 WBC (3.8-10.6) k/uL RBC (4.30-5.90) m/uL Hgb (13.0-17.5) gm/dL Hct (39.0-53.0) % MCV (80.0-100.0) fL MCH (25.0-35.0) pg MCHC (31.0-37.0) g/dL RDW (11.5-15.5) % Plt Count (150-450) k/uL Neutrophils % % Lymphocytes % % Monocytes % % Eosinophils % % Basophils % % Neutrophils # (1.3-7.7) k/uL Lymphocytes # (1.0-4.8) k/uL Monocytes # (0-1.0) k/uL Eosinophils # (0-0.7) k/uL Basophils # (0-0.2) k/uL PT (9.0-12.0) sec INR (<1.2) APTT (22.0-30.0) sec D-Dimer (<0.60) mg/L FEU Sodium (137-145) mmol/L Potassium (3.5-5.1) mmol/L Chloride (98-107) mmol/L Carbon Dioxide (22-30) mmol/L Anion Gap mmol/L BUN (9-20) mg/dL Creatinine (0.66-1.25) mg/dL Est GFR (CKD-EPI)AfAm (>60 ml/min/1.73 sqM) Est GFR (CKD-EPI)NonAf (>60 ml/min/1.73 sqM) Glucose (74-99) mg/dL POC Glucose (mg/dL) 166 H (75-99) mg/dL POC Glu Vest Maker ID Claudia Jernigan Lactic Ac Sepsis Rflx Y Plasma Lactic Acid Preet 0.8 (0.7-2.0) mmol/L Calcium (8.4-10.2) mg/dL Total Bilirubin (0.2-1.3) mg/dL AST (17-59) U/L ALT (4-49) U/L Alkaline Phosphatase (38-126) U/L Troponin I (0.000-0.034) ng/mL NT-Pro-B Natriuret Pep pg/mL Total Protein (6.3-8.2) g/dL Albumin (3.5-5.0) g/dL - EKG Data EKG Comments: EKG demonstrates normal sinus rhythm with a ventricular rate of 132. QRS 104. QTC of 478. No acute ST segment elevations or depressions concerning for ischemic changes. Inverted T-wave in lead 3 Disposition Clinical Impression: Thoracic back pain, Hyperglycemia Disposition: HOME SELF-CARE Condition: Stable Instructions (If sedation given, give patient instructions): Back Pain (ED) Additional Instructions: Please follow-up with primary care doctor for refills of the medication if it does work for you. Return to the emergency room for any new or worsening symptoms Prescriptions: Methocarbamol [Robaxin] 500 mg PO TID PRN #42 tab PRN Reason: muscle spasms Is patient prescribed a controlled substance at d/c from ED?: No Referrals: Lamar Scott MD [Primary Care Provider] - 1-2 days Time of Disposition: 19:48
[2019-09-07 15:01] LABS: Basophils % (A) 0 %; Eosinophils # (A) 0.1 k/uL (0-0.7); Eosinophils % (A) 1 %; HCT 30.4 % (39.0-53.0); HGB 10.3 gm/dL (13.0-17.5); Lymphocytes # (A) 0.9 k/uL (1.0-4.8); Lymphocytes % (A) 13 %; MCH 30.1 pg (25.0-35.0); MCHC 33.8 g/dL (31.0-37.0); Mean Platelet Volume 7.2; Monocytes # (A) 0.3 k/uL (0-1.0); Monocytes % (A) 5 %; Neutrophils # (A) 5.1 k/uL (1.3-7.7); Neutrophils % (A) 79 %; Platelet Count 117 k/uL (150-450); RBC 3.41 m/uL (4.30-5.90); WBC 6.5 k/uL (3.8-10.6)
[2019-09-07 15:12] LABS: D-Dimer 0.53 mg/L FEU (<0.60); Partial Thromboplastin Time 25.6 sec (22.0-30.0); Prothrombin Time 10.4 sec (9.0-12.0)
--- NOTE | 2019-09-07 18:13 | NM ---
EXAMINATION TYPE: NM pul vent and perfuse DATE OF EXAM: 09/07/2019 COMPARISON: NONE HISTORY: Chest pain TECHNIQUE: Utilizing inhalation of 37.9 mCi Tc 99m DTPA aerosol and intravenous injection of 4.8 mCi of Tc 99m MAA, ventilation and perfusion images are acquired post injection in multiple projections. FINDINGS: Ventilation scan is fairly normal. Perfusion images show fairly uniform perfusion of both lungs. Ther e is no segmental type defect. IMPRESSION: Negative exam. There is a low probability of pulmonary embolism.
--- NOTE | 2019-09-07 18:37 | XR ---
EXAMINATION TYPE: XR chest 2V DATE OF EXAM: 09/07/2019 COMPARISON: 04/05/2019 HISTORY: Hypertension TECHNIQUE: FINDINGS: Heart and mediastinum are normal. Lungs are clear. Diaphragm is normal. Bony thorax appears normal. IMPRESSION: Normal chest. No change.
--- NOTE | 2019-09-07 18:58 | CT ---
EXAMINATION TYPE: CT chest wo con DATE OF EXAM: 09/07/2019 COMPARISON: None HISTORY: back pain, SOB CT DLP: combined DLP 568.3 mGycm Automated exposure control for dose reduction was used. Multiple axial sections were obtained from the thoracic inlet to the diaphragm with no contrast. The lungs are clear of infiltrate. There is no pleural effusion. There is no pulmonary mass. There is hiatal hernia. Heart size is normal. There is no pericardial effusion. There is coronary artery calc ification. There is no mediastinal adenopathy. There are no hilar masses. The bony thorax appears int act. Upper abdominal soft tissues are intact. IMPRESSION: Negative CT scan of the chest. Atherosclerotic vascular disease. No evidence of bronchopneumonia.
--- NOTE | 2019-09-07 19:03 | CT ---
EXAMINATION TYPE: CT thoracic spine wo con DATE OF EXAM: 09/07/2019 COMPARISON: None HISTORY: back pain, SOB CT DLP: combined DLP 568.3 mGycm Automated exposure control for dose reduction was used. Multiple axial sections were obtained from the level of T1-T12 with no contrast. Thoracic vertebra have normal alignment. Disc spaces are fairly normal. There is no compression fract ure. There is no thoracic paraspinal mass. The posterior elements appear intact. Visualized ribs appe ar intact. There is no pleural effusion. There is no significant spur formation. IMPRESSION: Negative CT scan of the thoracic spine. No fracture. No evidence of spinal stenosis.
[2019-09-07 19:30] LABS: Glucose,Whole Blood 166 mg/dL (75-99)
[2019-09-07] MEDS ORDERED: METHOCARBAMOL 750 MG TAB PO STA (19:42)
[2019-09-07 20:15] VITALS: BP 141/82; PULSE 56; TEMP 98.3
== END 2019-09-07 20:15 | disposition home or self-care (01) ==
LOC: EC 13:43
DX: M54.6 Pain in thoracic spine (principal); E11.65 Type 2 diabetes mellitus with hyperglycemia; E11.40 Type 2 diabetes mellitus with diabetic neuropathy, unspecified; I12.9 Hypertensive chronic kidney disease with stage 1 through stage 4 chronic kidney disease, or unspecified chronic kidney disease; N18.9 Chronic kidney disease, unspecified; E78.5 Hyperlipidemia, unspecified; M06.9 Rheumatoid arthritis, unspecified; I25.10 Atherosclerotic heart disease of native coronary artery without angina pectoris; I25.2 Old myocardial infarction; F41.9 Anxiety disorder, unspecified; F32.9 Major depressive disorder, single episode, unspecified; H54.8 Legal blindness, as defined in USA; Z79.82 Long term (current) use of aspirin; Z79.02 Long term (current) use of antithrombotics/antiplatelets; Z79.84 Long term (current) use of oral hypoglycemic drugs; Z79.899 Other long term (current) drug therapy; Z91.041 Radiographic dye allergy status; Z95.5 Presence of coronary angioplasty implant and graft; Z86.73 Personal history of transient ischemic attack (TIA), and cerebral infarction without residual deficits
CPT/HCPCS: 36415; 93005; 85379; 83880; 80053; 83605; 84484; 85025; 85610; 85730; 71046; 72128; 71250; 78582; 99285; 96374; 96375 ×2; 96361 ×2; A9540; A9567; J1200; J2930

== ENCOUNTER 2019-12-11 20:37 | Emergency (ER) | payer MEDICARE ==
[2019-12-11 20:48] VITALS: BP 149/81; PULSE 54; RESP 16; TEMP 98.3
[2019-12-11] MEDS ORDERED: KETOROLAC 30 MG/ML 1 ML VIAL IM STA (20:59)
[2019-12-11] MEDS ORDERED: LIDOCAINE 5% PATCH TOPICAL STA (20:59)
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
--- NOTE | 2019-12-11 21:26 | XR ---
EXAMINATION TYPE: XR chest 2V DATE OF EXAM: 12/11/2019 COMPARISON: Chest x-ray and CT chest September 07, 2019. HISTORY: Chest and right-sided rib pain for 2 days. TECHNIQUE: Frontal and lateral views of the chest are obtained. FINDINGS: There is some mild chronic clinical change bilaterally without suspicious new focal air sp abimael opacity, pleural effusion, or pneumothorax seen. The cardiac silhouette size remains within norm al limits. The osseous structures are intact. IMPRESSION: Chronic changes without acute pulmonary process.
[2019-12-11] MEDS ORDERED: oxyCODONE-APAP 7.5-325MG 1 EACH TAB PO STA (21:45)
== END 2019-12-11 22:00 | disposition home or self-care (01) ==
LOC: EC 20:37
DX: R07.89 Other chest pain (principal); I25.10 Atherosclerotic heart disease of native coronary artery without angina pectoris; E11.42 Type 2 diabetes mellitus with diabetic polyneuropathy; E78.5 Hyperlipidemia, unspecified; H54.8 Legal blindness, as defined in USA; E11.22 Type 2 diabetes mellitus with diabetic chronic kidney disease; N18.2 Chronic kidney disease, stage 2 (mild); N40.0 Benign prostatic hyperplasia without lower urinary tract symptoms; I12.9 Hypertensive chronic kidney disease with stage 1 through stage 4 chronic kidney disease, or unspecified chronic kidney disease; K21.9 Gastro-esophageal reflux disease without esophagitis; F32.9 Major depressive disorder, single episode, unspecified; F41.9 Anxiety disorder, unspecified; Z79.84 Long term (current) use of oral hypoglycemic drugs; Z79.82 Long term (current) use of aspirin; Z79.899 Other long term (current) drug therapy; Z91.041 Radiographic dye allergy status; Z86.73 Personal history of transient ischemic attack (TIA), and cerebral infarction without residual deficits; Z95.5 Presence of coronary angioplasty implant and graft; Z82.49 Family history of ischemic heart disease and other diseases of the circulatory system
CPT/HCPCS: 99285; 96372; 93005; 71046; J1885

== ENCOUNTER 2019-12-30 15:07 | Observation (INO) | payer MEDICARE ==
[2019-12-30] MEDS ORDERED: SODIUM CHLORIDE 0.9% 1,000 ML IV ONE (15:38)
[2019-12-30] MEDS ORDERED: SODIUM CHLORIDE 0.9% 500 ML 500 ML IV ONE (15:38)
[2019-12-30] MEDS ORDERED: INSULIN REGULAR 100 UNIT/ML VIAL IV ONE ×2 (15:38→17:12)
[2019-12-30 15:52] LABS: Glucose,Whole Blood >600 mg/dL (75-99)
[2019-12-30 17:10] LABS: Glucose,Whole Blood 541 mg/dL (75-99)
[2019-12-30] MEDS ORDERED: INSULIN REGULAR 100 UNIT/ML VIAL SQ ONE (17:12)
[2019-12-30] MEDS: SODIUM CHLORIDE 0.9% 1,000 ML IV SCH ×2 (17:18→23:55)
[2019-12-30 17:44] LABS: Appearance,Urine Clear (Clear); Bilirubin,Urine Negative (Negative); Blood,Urine Negative (Negative); Color,Urine Light Yellow; Glucose,Urine (UA) 4+ (Negative); Ketones,Urine Negative (Negative); Leukocyte Esterase,Urine Negative (Negative); Nitrite,Urine Negative (Negative); Protein,Urine Negative (Negative); Specific Gravity,Urine 1.012 (1.001-1.035); Urobilinogen,Urine <2.0 mg/dL (<2.0)
[2019-12-30 18:20] LABS: Glucose,Whole Blood 419 mg/dL (75-99)
[2019-12-30] MEDS ORDERED: NALOXONE 0.4 MG/ML 1 ML VIAL IV PRN (18:28)
--- NOTE | 2019-12-30 18:32 | ED ---
Recheck HPI - General Chief Complaint: Recheck/Abnormal Lab/Rx Stated Complaint: sugar high Time Seen by Provider: 12/30/19 15:26 Source: patient Mode of arrival: wheelchair Limitations: no limitations - History of Present Illness Initial Comments: 54-year-old male with type 2 diabetes, stage IV kidney disease presenting to emergency R for elevated glucose patient states that he was at an outpatient appointment where he had labs drawn returning positive for significant elevated glucose he was sent to the ER. Patient had anion gap of 13. Ketone negative urine outpatient. Patient upon arrival has no complaints. Upon arrival he appears well nontoxic in no acute distress. Patient denies any recent fever, chills, cough, shortness of breath, chest pain, back pain, abdominal pain, nausea or vomiting, numbness or tingling, dysuria or hematuria, constipation or diarrhea, headaches or visual changes, or any other complaints. - Related Data Home Medications Medication Instructions Recorded Confirmed Gabapentin 600 mg PO TID@0900,1500,2200 09/12/17 12/30/19 Pantoprazole [Protonix] 40 mg PO BID@0900,0 11/05/17 12/30/19 Tamsulosin [Flomax] 0.4 mg PO BID@0900,0 11/05/17 12/30/19 Citalopram Hydrobromide [CeleXA] 60 mg PO DAILY@0900 12/12/18 12/30/19 Loratadine [Claritin] 10 mg PO DAILY@0900 12/12/18 12/30/19 Furosemide [Lasix] 40 mg PO BID@0900,1500 02/22/19 12/30/19 Ergocalciferol (Vitamin D2) 50,000 unit PO MO 02/23/19 12/30/19 [Drisdol] Allopurinol [Zyloprim] 200 mg PO DAILY@1500 04/05/19 12/30/19 hydrALAZINE HCL [Apresoline] 100 mg PO TID@0900,1500,0 04/05/19 12/30/19 sitaGLIPtin [Januvia] 100 mg PO DAILY@0900 04/05/19 12/30/19 Clopidogrel Bisulfate [Plavix] 75 mg PO HS@219904/06/19 12/30/19 Calcitriol [Rocaltrol] 0.25 mcg PO MO 09/07/19 12/30/19 Glimepiride [Amaryl] 4 mg PO BID@0900,2200 09/07/19 12/30/19 Lurasidone HCl [Latuda] 40 mg PO HS@219909/07/19 12/30/19 Docusate [Colace] 100 mg PO TID@0900,1500,2200 12/12/19 12/30/19 Aspirin 81 mg PO DAILY@1500 12/30/19 12/30/19 Atorvastatin [Lipitor] 80 mg PO HS@219912/30/19 12/30/19 Colchicine [Colcrys] 0.6 mg PO DAILY@0900 12/30/19 12/30/19 Darbepoetin Omari [Aranesp] 40 mcg IJ Q14D 12/30/19 12/30/19 Isosorbide Mononitrate ER [Imdur] 60 mg PO DAILY@0900 12/30/19 12/30/19 Metoprolol Succinate (ER) [Toprol 50 mg PO DAILY@89912/30/19 12/30/19 XL] amLODIPine [Norvasc] 5 mg PO BID@1500,0 12/30/19 12/30/19 cloNIDine HCL [Catapres] 0.1 mg PO BID@0900,1500 12/30/19 12/30/19 Previous Rx's Medication Instructions Recorded Methocarbamol [Robaxin] 500 mg PO TID PRN #42 tab 09/07/19 Allergies Allergy/AdvReac Type Severity Reaction Status Date / Time Iodinated Contrast Media AdvReac Nausea & Verified 12/30/19 18:14 [Iodinated Contrast- Oral Vomiting and IV Dye] Review of Systems ROS Statement: Those systems with pertinent positive or pertinent negative responses have been documented in the HPI. ROS Other: All systems not noted in ROS Statement are negative. Past Medical History Past Medical History: Coronary Artery Disease (CAD), CVA/TIA, Diabetes Mellitus, GERD/Reflux, Hyperlipidemia, Hypertension, Myocardial Infarction (DC), Renal Disease, Rheumatoid Arthritis (RA) Additional Past Medical History / Comment(s): stroke apr 2017, migranes, diabetic neuropathy arms and legs, stage 2 kidney failure, PANCREATITIS, LEGALLY BLIND, enlarged prostate, trouble urinating. anemia Last Myocardial Infarction Date:: 2014? not sure History of Any Multi-Drug Resistant Organisms: None Reported Past Surgical History: No Surgical Hx Reported, Heart Catheterization With Stent Additional Past Surgical History / Comment(s): Prostrate surgery Past Anesthesia/Blood Transfusion Reactions: No Reported Reaction Additional Past Anesthesia/Blood Transfusion Reaction / Comment(s): never had anethesia Date of Last Stent Placement:: 2017 Past Psychological History: Anxiety, Depression Smoking Status: Never smoker Past Alcohol Use History: None Reported Past Drug Use History: None Reported - Past Family History Mother Family Medical History: CVA/TIA, Diabetes Mellitus, Hypertension Additional Family Medical History / Comment(s): Parkinson's Mother is 77yrs old. Father Family Medical History: CVA/TIA, Diabetes Mellitus, Myocardial Infarction (DC) Additional Family Medical History / Comment(s): Father of a DC in his 50s. General Exam - General Exam Comments Initial Comments: General: The patient is awake and alert, in no distress Eye: +3 mm pupils are equal, round and reactive to light, extra-ocular movements are intact. No nystagmus. There is normal conjunctiva bilaterally. No signs of icterus. Ears, nose, mouth and throat: There are moist mucous membranes and no oral lesions. Neck: The neck is supple, there is no tenderness or JVD. Cardiovascular: There is a regular rate and rhythm. No murmur, rub or gallop is appreciated. Respiratory: Lungs are clear to auscultation, respirations are non-labored, breath sounds are equal. No wheezes, stridor, rales, or rhonchi. Gastrointestinal: Soft, non-distended, non-tender abdomen without masses or organomegaly noted. There is no rebound or guarding present. Musculoskeletal: Normal ROM, no tenderness. Strength 5/5. Sensation intact. Radial pulses equal bilaterally 2+. Neurological: A&O x 3. CN II-XII intact grossly, There are no obvious motor or sensory deficits. Coordination appears grossly intact. Speech is normal. Skin: Skin is warm and dry and no rashes or lesions are noted. Psychiatric: Cooperative, appropriate mood & affect, normal judgment. Limitations: no limitations Course Vital Signs 12/30/19 12/30/19 15:10 17:53 Temperature 97.9 F Pulse Rate 67 78 Respiratory 18 18 Rate Blood Pressure 152/84 163/89 O2 Sat by Pulse 98 97 Oximetry Medical Decision Making - Medical Decision Making 54yo male presenting for elevated glucose Denies complaints. Outpatient labs were obtained. No ketones in urne 13 gap. Patient continues to have high sugar readings in the ER despite multiple doses of insulin. HgB low but near pt baseline, denies bleeding. I discussed case wtih Dr. Pantoja who recommends admission with sliding scale and IVF. Patient is agreeable to admission, continues to deny complaints. Patient case accepted by Dr. Graham. - Lab Data Result diagrams: 12/31/19 06:48 12/31/19 06:48 Lab Results 12/30/19 12/30/19 12/30/19 Range/Units 15:45 15:51 17:09 POC Glucose (mg/dL) >600 H 541 H (75-99) mg/dL POC Glu Mesh Cutter ID Danielle Steen Ellie Urine Color Urine Appearance (Clear) Urine pH (5.0-8.0) Ur Specific [place] (1.001-1.035) Urine Protein (Negative) Urine Glucose (UA) (Negative) Urine Ketones (Negative) Urine Blood (Negative) Urine Nitrite (Negative) Urine Bilirubin (Negative) Urine Urobilinogen (<2.0) mg/dL Ur Leukocyte Esterase (Negative) Acetone, Qual Negative (Negative) 12/30/19 12/30/19 Range/Units 17:17 18:18 POC Glucose (mg/dL) 419 H (75-99) mg/dL POC Glu Mesh Cutter ID Danielle Steen Urine Color Light Yellow Urine Appearance Clear (Clear) Urine pH 6.0 (5.0-8.0) Ur Specific [place] 1.012 (1.001-1.035) Urine Protein Negative (Negative) Urine Glucose (UA) 4+ H (Negative) Urine Ketones Negative (Negative) Urine Blood Negative (Negative) Urine Nitrite Negative (Negative) Urine Bilirubin Negative (Negative) Urine Urobilinogen <2.0 (<2.0) mg/dL Ur Leukocyte Esterase Negative (Negative) Acetone, Qual (Negative) Disposition Clinical Impression: Elevated glucose Disposition: ADMITTED IP TO THIS HOSP Condition: Stable Is patient prescribed a controlled substance at d/c from ED?: No Time of Disposition: 18:32 Decision to Admit Reason: Admit from EC Decision Date: 12/30/19 Decision Time: 18:33
[2019-12-30 19:40] LABS: Glucose,Whole Blood 303 mg/dL (75-99)
[2019-12-30] MEDS: INSULIN ASPART (NovoLOG) 100 UNIT/ML VIAL SQ SCH ×2 (19:46→22:07)
[2019-12-30 21:37] LABS: Glucose,Whole Blood 205 mg/dL (75-99)
[2019-12-30] MEDS ORDERED: METHOCARBAMOL 500 MG TAB PO PRN (22:00)
[2019-12-30] MEDS: ATORVASTATIN 80 MG TAB PO SCH (22:44)
[2019-12-30] MEDS: CLOPIDOGREL 75 MG TAB PO SCH (22:44)
[2019-12-30] MEDS: amLODIPine 5 MG TAB PO SCH (22:44)
[2019-12-30] MEDS: hydrALAZINE HCL 50 MG TAB PO SCH (22:44)
[2019-12-30] MEDS: DOCUSATE 100 MG CAP PO SCH (22:44)
[2019-12-30] MEDS: GABAPENTIN 300 MG CAP PO SCH (22:44)
[2019-12-30] MEDS: PANTOPRAZOLE 40 MG TABLET PO SCH (22:45)
[2019-12-30] MEDS: TAMSULOSIN 0.4 MG CAP.ER.24H PO SCH (22:45)
[2019-12-30] MEDS: INSULIN DETEMIR (LEVEMIR) 100 UNIT/ML SYR SQ SCH (22:45)
[2019-12-30] MEDS: LURASIDONE HCL 40 MG PO SCH (22:54)
[2019-12-30] MEDS: HEPARIN SODIUM,PORCINE 5,000 UNIT/ML 1 ML VIAL SQ SCH (23:53)
[2019-12-31 02:05] LABS: Glucose,Whole Blood 193 mg/dL (75-99)
[2019-12-31 07:11] LABS: Glucose,Whole Blood 200 mg/dL (75-99)
[2019-12-31] MEDS: TAMSULOSIN 0.4 MG CAP.ER.24H PO SCH ×2 (09:02→21:35)
[2019-12-31] MEDS: CITALOPRAM HYDROBROMIDE 20 MG TAB PO SCH (09:02)
[2019-12-31] MEDS: cloNIDine HCL 0.1 MG TAB PO SCH ×2 (09:02→17:50)
[2019-12-31] MEDS: PANTOPRAZOLE 40 MG TABLET PO SCH ×2 (09:02→21:35)
[2019-12-31] MEDS: DOCUSATE 100 MG CAP PO SCH ×3 (09:02→21:35)
[2019-12-31] MEDS: ISOSORBIDE MONONITRATE ER 60 MG TAB.ER.24H PO SCH (09:03)
[2019-12-31] MEDS: LORATADINE 10 MG TAB PO SCH (09:03)
[2019-12-31] MEDS: GABAPENTIN 300 MG CAP PO SCH ×3 (09:03→21:35)
[2019-12-31] MEDS: METOPROLOL SUCCINATE (ER) 50 MG TAB.ER.24H PO SCH (09:03)
[2019-12-31] MEDS: INSULIN ASPART (NovoLOG) 100 UNIT/ML VIAL SQ SCH ×8 (09:03→20:36)
[2019-12-31] MEDS: hydrALAZINE HCL 50 MG TAB PO SCH ×3 (09:03→21:35)
[2019-12-31] MEDS: COLCHICINE 0.6 MG EACH PO SCH (09:04)
[2019-12-31] MEDS: HEPARIN SODIUM,PORCINE 5,000 UNIT/ML 1 ML VIAL SQ SCH ×3 (09:04→23:47)
[2019-12-31] MEDS: SODIUM CHLORIDE 0.9% 1,000 ML IV SCH ×2 (09:05→18:27)
[2019-12-31 10:38] LABS: Basophils % (A) 1 %; Eosinophils # (A) 0.2 k/uL (0-0.7); Eosinophils % (A) 2 %; HCT 28.6 % (39.0-53.0); HGB 9.4 gm/dL (13.0-17.5); Lymphocytes # (A) 1.2 k/uL (1.0-4.8); Lymphocytes % (A) 19 %; MCH 29.3 pg (25.0-35.0); MCHC 32.8 g/dL (31.0-37.0); MCV 89.1 fL (80.0-100.0); Mean Platelet Volume 7.6; Monocytes # (A) 0.4 k/uL (0-1.0); Monocytes % (A) 6 %; Neutrophils # (A) 4.4 k/uL (1.3-7.7); Neutrophils % (A) 71 %; Platelet Count 110 k/uL (150-450); RDW 14.2 % (11.5-15.5); WBC 6.3 k/uL (3.8-10.6)
[2019-12-31 10:44] LABS: Calcium 8.1 mg/dL (8.4-10.2); Potassium 4.2 mmol/L (3.5-5.1)
[2019-12-31 12:49] LABS: Glucose,Whole Blood 302 mg/dL (75-99)
[2019-12-31 13:09] VITALS: RESP 16
--- NOTE | 2019-12-31 13:58 | P.NPCON ---
History of Present Illness - Reason for Consult acute renal failure, chronic renal failure - History of Present Illness Reason for consultation: Acute kidney injury on chronic kidney disease History of present illness: Patient is a 54-year-old male seen in renal consultation for acute kidney injury on chronic kidney disease. Patient has chronic kidney disease stage III with baseline creatinine in the range of 1.8-2. Creatinine was 2.44 on admission and is 1.83 today. He is maintained on normal saline. Patient presented to the hospital after he was told that his blood sugar was elevated. Patient states he's been compliant with his medications. His blood glucose was 547 on admission and is 175 today. He denies fever or chills. States he hasn't been on steroids recently. No recent infection. No vomiting or diarrhea. Oral intake is fair. No edema. Good urine output. No hematuria or dysuria. Hemodynamically stable. Denies use of nonsteroidals. He was started on insulin this admission. Vital signs are stable. General: The patient appeared well nourished and normally developed. HEENT: Head exam is unremarkable. Neck is without jugular venous distension. LUNGS: Lungs are clear to auscultation and percussion. Breath sounds decreased. HEART: Rate and Rhythm are regular. ABDOMEN: Soft, nontender. EXTREMITITES: No clubbing, cyanosis, or edema. Past Medical History Past Medical History: Coronary Artery Disease (CAD), CVA/TIA, Diabetes Mellitus, GERD/Reflux, Hyperlipidemia, Hypertension, Myocardial Infarction (RI), Renal Disease, Rheumatoid Arthritis (RA) Additional Past Medical History / Comment(s): stroke apr 2017, migranes, diabetic neuropathy arms and legs, stage 2 kidney failure, PANCREATITIS, LEGALLY BLIND, enlarged prostate, trouble urinating. anemia Last Myocardial Infarction Date:: 2014? not sure History of Any Multi-Drug Resistant Organisms: None Reported Past Surgical History: No Surgical Hx Reported, Heart Catheterization With Stent Additional Past Surgical History / Comment(s): Prostrate surgery Past Anesthesia/Blood Transfusion Reactions: No Reported Reaction Additional Past Anesthesia/Blood Transfusion Reaction / Comment(s): never had anethesia Date of Last Stent Placement:: 2017 Past Psychological History: Anxiety, Depression Smoking Status: Never smoker Past Alcohol Use History: None Reported Past Drug Use History: None Reported - Past Family History Mother Family Medical History: CVA/TIA, Diabetes Mellitus, Hypertension Additional Family Medical History / Comment(s): Parkinson's Mother is 77yrs old. Father Family Medical History: CVA/TIA, Diabetes Mellitus, Myocardial Infarction (RI) Additional Family Medical History / Comment(s): Father of a RI in his 50s. Medications and Allergies Home Medications Medication Instructions Recorded Confirmed Type Gabapentin 600 mg PO TID@0900,1500,2200 09/12/17 12/30/19 History Pantoprazole [Protonix] 40 mg PO BID@0900,0 11/05/17 12/30/19 History Tamsulosin [Flomax] 0.4 mg PO BID@0900,219911/05/17 12/30/19 History Citalopram Hydrobromide [CeleXA] 60 mg PO DAILY@89912/12/18 12/30/19 History Loratadine [Claritin] 10 mg PO DAILY@0900 12/12/18 12/30/19 History Furosemide [Lasix] 40 mg PO BID@0900,1500 02/22/19 12/30/19 History Ergocalciferol (Vitamin D2) 50,000 unit PO MO 02/23/19 12/30/19 History [Drisdol] Allopurinol [Zyloprim] 200 mg PO DAILY@1500 04/05/19 12/30/19 History hydrALAZINE HCL [Apresoline] 100 mg PO TID@0900,1500,219904/05/19 12/30/19 History sitaGLIPtin [Januvia] 100 mg PO DAILY@0900 04/05/19 12/30/19 History Clopidogrel Bisulfate [Plavix] 75 mg PO HS@219904/06/19 12/30/19 History Calcitriol [Rocaltrol] 0.25 mcg PO MO 09/07/19 12/30/19 History Glimepiride [Amaryl] 4 mg PO BID@0900,219909/07/19 12/30/19 History Lurasidone HCl [Latuda] 40 mg PO HS@219909/07/19 12/30/19 History Methocarbamol [Robaxin] 500 mg PO TID PRN #42 tab 09/07/19 12/30/19 Rx Docusate [Colace] 100 mg PO TID@0900,1500,2200 12/12/19 12/30/19 History Aspirin 81 mg PO DAILY@1500 12/30/19 12/30/19 History Atorvastatin [Lipitor] 80 mg PO HS@219912/30/19 12/30/19 History Colchicine [Colcrys] 0.6 mg PO DAILY@0900 12/30/19 12/30/19 History Darbepoetin Omari [Aranesp] 40 mcg IJ Q14D 12/30/19 12/30/19 History Isosorbide Mononitrate ER [Imdur] 60 mg PO DAILY@0912/30/19 12/30/19 History Metoprolol Succinate (ER) [Toprol 50 mg PO DAILY@89912/30/19 12/30/19 History XL] amLODIPine [Norvasc] 5 mg PO BID@1500,219912/30/19 12/30/19 History cloNIDine HCL [Catapres] 0.1 mg PO BID@0900,1500 12/30/19 12/30/19 History Allergies Allergy/AdvReac Type Severity Reaction Status Date / Time Iodinated Contrast Media AdvReac Nausea & Verified 12/30/19 18:14 [Iodinated Contrast- Oral Vomiting and IV Dye] Physical Exam Vitals: Vital Signs Temp Pulse Pulse Resp BP BP Pulse Ox 12/31/19 13:09 98.2 F 56 L 16 143/72 96 12/31/19 08:00 63 14 12/31/19 04:30 99.0 F 63 14 144/71 97 12/30/19 21:20 97.5 F L 61 20 155/80 99 12/30/19 17:53 78 18 163/89 97 12/30/19 15:10 97.9 F 67 18 152/84 98 Intake and Output 12/30/19 12/31/19 12/31/19 22:59 06:59 14:59 Intake Total 673 186 5396 Balance 067 544 3348 Intake: Intake, IV Titration 780 1040 Amount Sodium Chloride 0.9% 1, 780 1040 000 ml @ 130 mls/hr IV . Q7H42M [facility] Rx#:[id number] Oral 240 Other: Voiding Method Toilet Toilet Weight 88.451 kg Results - Lab Results Most recent lab results Calcium 8.1 mg/dL (8.4-10.2) L 12/31/19 06:48 12/31/19 06:48 12/31/19 06:48 Assessment and Plan Plan: Assessment: 1. Acute kidney injury mostly prerenal secondary to hypovolemia secondary to hyperglycemia. Creatinine was 2.4 on admission and is 1.83 today. 2. Chronic kidney disease stage III with baseline creatinine in the range of 1.8-2 secondary to diabetic kidney disease. 3. Uncontrolled diabetes mellitus. Blood sugar over 500 this admission. Now on insulin. Blood sugar 175 this morning. 4. Hypertension with chronic kidney disease. Controlled. 5. Chronic kidney disease mineral bone disease maintained on calcitriol. Plan: Decrease normal saline to 75 mL an hour. Avoid nephrotoxins. Continue to monitor renal function and urine output. Thank you for the consultation. I will continue to follow the patient with you during his hospital stay.
[2019-12-31 14:48] LABS: Hemoglobin A1C 10.3 % (4.0-6.0)
[2019-12-31 17:10] LABS: Glucose,Whole Blood 203 mg/dL (75-99)
[2019-12-31] MEDS: amLODIPine 5 MG TAB PO SCH ×2 (17:50→21:37)
[2019-12-31] MEDS: ALLOPURINOL 100 MG TAB PO SCH (17:50)
[2019-12-31] MEDS: ASPIRIN 81 MG PO SCH (17:50)
[2019-12-31 20:18] LABS: Glucose,Whole Blood 174 mg/dL (75-99)
[2019-12-31] MEDS: INSULIN DETEMIR (LEVEMIR) 100 UNIT/ML SYR SQ SCH (20:36)
[2019-12-31] MEDS: LURASIDONE HCL 40 MG PO SCH (21:31)
[2019-12-31] MEDS: CLOPIDOGREL 75 MG TAB PO SCH (21:35)
[2019-12-31] MEDS: ATORVASTATIN 80 MG TAB PO SCH (21:35)
--- NOTE | 2019-12-31 22:59 | P.HPIM ---
History of Present Illness H&P Date: 12/31/19 Chief Complaint: Elevated blood sugar Patient is a 54-year-old male with a known history of coronary artery disease with stent placement, chronic kidney disease stage III with baseline creatinine around 1.8 was sent to hospital by his material stress tester. Patient did get his blood work-up and was found to have hyperglycemia with blood sugar greater than 600 and was advised to go to ER. Patient otherwise denied any complaints of nausea vomiting or abdominal pain. No dysuria or hematuria. No cough or sputum production. No fever no chills. Denied any recent illnesses. Patient is currently taking Januvia and glimepiride at home. Acetone negative Hemoglobin 9.4, WBC 6.3 and platelets 110 Sodium 135, potassium 4.2, BUN 34 and creatinine 1.83, Creatinine was 2.44 on admission. A1c level 10.3 Review of Systems Constitutional: Patient denies any fever or chills . No generalized weakness or weight loss. Abdomen: Patient denied nausea vomiting and diarrhea and abdominal pain. Cardiovascular: Patient denies any chest pain or short of breath no palpitations. Respiratory: patient denied any cough is from production. No shortness of breath Neurologic: Patient denied any numbness or tingling headache. Musculoskeletal: Patient denies any complaints of joint swelling or deformity. Skin: Negative Psychiatric: Negative Endocrine: No heat or cold intolerance. No recent weight gain. Genitourinary: No dysuria or hematuria. All other 14 point ROS negative except the above Past Medical History Past Medical History: Coronary Artery Disease (CAD), CVA/TIA, Diabetes Mellitus, GERD/Reflux, Hyperlipidemia, Hypertension, Myocardial Infarction ([place]), Renal Disease, Rheumatoid Arthritis ([place]) Additional Past Medical History / Comment(s): stroke apr 2017, migranes, diabetic neuropathy arms and legs, stage 4 kidney failure, PANCREATITIS, LEGALLY BLIND, enlarged prostate, trouble urinating. anemia Last Myocardial Infarction Date:: 2014? not sure History of Any Multi-Drug Resistant Organisms: None Reported Past Surgical History: No Surgical Hx Reported, Heart Catheterization With Stent Additional Past Surgical History / Comment(s): Prostrate surgery, stents x4 Past Anesthesia/Blood Transfusion Reactions: No Reported Reaction Additional Past Anesthesia/Blood Transfusion Reaction / Comment(s): never had anethesia Date of Last Stent Placement:: 2017 Past Psychological History: Anxiety, Depression Additional Psychological History / Comment(s): Pt resides with his spouse. He uses a quad cane or walker to ambulate. He is legally blind. He reads minimally with magnifying glass and signs his name only now. His spouse drives him to [employer]. Smoking Status: Never smoker Past Alcohol Use History: None Reported Past Drug Use History: None Reported - Past Family History Mother Family Medical History: CVA/TIA, Diabetes Mellitus, Hypertension Additional Family Medical History / Comment(s): Parkinson's Mother is 77yrs old. Father Family Medical History: CVA/TIA, Diabetes Mellitus, Myocardial Infarction ([place]) Additional Family Medical History / Comment(s): Father of a [place] in his 50s. Medications and Allergies Home Medications Medication Instructions Recorded Confirmed Type Gabapentin 600 mg PO TID@0900,1500,2200 09/12/17 12/30/19 History Pantoprazole [Protonix] 40 mg PO BID@0900,2200 11/05/17 12/30/19 History Tamsulosin [Flomax] 0.4 mg PO BID@0900,2200 11/05/17 12/30/19 History Citalopram Hydrobromide [CeleXA] 60 mg PO DAILY@0900 12/12/18 12/30/19 History Loratadine [Claritin] 10 mg PO DAILY@0900 12/12/18 12/30/19 History Furosemide [Lasix] 40 mg PO BID@0900,1500 02/22/19 12/30/19 History Ergocalciferol (Vitamin D2) 50,000 unit PO [place] 02/23/19 12/30/19 History [Drisdol] Allopurinol [Zyloprim] 200 mg PO DAILY@1500 04/05/19 12/30/19 History hydrALAZINE HCL [Apresoline] 100 mg PO TID@0900,1500,2200 04/05/19 12/30/19 History sitaGLIPtin [Januvia] 100 mg PO DAILY@0900 04/05/19 12/30/19 History Clopidogrel Bisulfate [Plavix] 75 mg PO HS@2200 04/06/19 12/30/19 History Calcitriol [Rocaltrol] 0.25 mcg PO [place] 09/07/19 12/30/19 History Glimepiride [Amaryl] 4 mg PO BID@0900,2200 09/07/19 12/30/19 History Lurasidone HCl [Latuda] 40 mg PO HS@2200 09/07/19 12/30/19 History Methocarbamol [Robaxin] 500 mg PO TID PRN #42 tab 09/07/19 12/30/19 Rx Docusate [Colace] 100 mg PO TID@0900,1500,2200 12/12/19 12/30/19 History Aspirin 81 mg PO DAILY@1500 12/30/19 12/30/19 History Atorvastatin [Lipitor] 80 mg PO HS@2200 12/30/19 12/30/19 History Colchicine [Colcrys] 0.6 mg PO DAILY@0900 12/30/19 12/30/19 History Darbepoetin Omari [Aranesp] 40 mcg IJ Q14D 12/30/19 12/30/19 History Isosorbide Mononitrate ER [Imdur] 60 mg PO DAILY@0900 12/30/19 12/30/19 History Metoprolol Succinate (ER) [Toprol 50 mg PO DAILY@0900 12/30/19 12/30/19 History XL] amLODIPine [Norvasc] 5 mg PO BID@1500,2200 12/30/19 12/30/19 History cloNIDine HCL [Catapres] 0.1 mg PO BID@0900,1500 12/30/19 12/30/19 History Allergies Allergy/AdvReac Type Severity Reaction Status Date / Time Iodinated Contrast Media AdvReac Nausea & Verified 12/30/19 18:14 [Iodinated Contrast- Oral Vomiting and IV Dye] Physical Exam Vitals: Vital Signs Temp Pulse Pulse Resp BP BP Pulse Ox 12/31/19 04:30 99.0 F 63 14 144/71 97 12/30/19 21:20 97.5 F L 61 20 155/80 99 12/30/19 17:53 78 18 163/89 97 12/30/19 15:10 97.9 F 67 18 152/84 98 Intake and Output 12/30/19 12/31/19 12/31/19 22:59 06:59 14:59 Intake Total 240 780 Balance 240 780 Intake: Intake, IV Titration 780 Amount Sodium Chloride 0.9% 1, 780 000 ml @ 130 mls/hr IV . [id number] [facility] Rx#:[id number] Oral 240 Other: Voiding Method Toilet Weight 88.451 kg PHYSICAL EXAMINATION: Patient is lying in the bed comfortably, no acute distress, awake alert and oriented.. HEENT: Normocephalic. Neck is supple. Pupils reactive. Nostrils clear. Oral cavity is moist. Ears reveal no drainage. Neck reveals no JVD, carotid bruits, or thyromegaly. CHEST EXAMINATION: Trachea is central. Symmetrical expansion. Lung ricks clear to auscultation and percussion. CARDIAC: Normal S1, S2 with no gallops. No murmurs ABDOMEN: Soft. Bowel sounds normal. No organomegaly. No abdominal bruits. Extremities: reveal no edema. No clubbing or cyanosis Neurologically awake, alert, oriented x3 with well-coordinated movements. No focal deficits noted Skin: No rash or skin lesions. Psychiatric: Coperative. Nonsuicidal Musculoskeletal: No joint swelling or deformity. Normal range of motion. Results CBC & Chem 7: 12/31/19 06:48 12/31/19 06:48 Labs: Abnormal Lab Results - Last 24 Hours (Table) 12/30/19 12/30/19 12/30/19 Range/Units 15:45 17:09 17:17 POC Glucose (mg/dL) >600 H 541 H (75-99) mg/dL Urine Glucose (UA) 4+ H (Negative) 12/30/19 12/30/19 12/30/19 Range/Units 18:18 19:38 21:33 POC Glucose (mg/dL) 419 H 303 H 205 H (75-99) mg/dL Urine Glucose (UA) (Negative) 12/31/19 12/31/19 Range/Units 02:02 07:10 POC Glucose (mg/dL) 193 H 200 H (75-99) mg/dL Urine Glucose (UA) (Negative) Thrombosis Risk Factor Assmnt - DVT/VTE Prophylaxis DVT/VTE Prophylaxis: Pharmacologic Prophylaxis ordered - Choose All That Apply Each Factor Represents 1 point: Age 41-60 years, Obesity (BMI >25) Other Risk Factors: No Other congenital or acquired thrombophilia - If yes, enter type in comment: No Thrombosis Risk Factor Assessment Total Risk Factor Score: 2 Thrombosis Risk Factor Assessment Level: Low Risk Assessment and Plan Assessment: Hyperglycemia due to uncontrolled diabetes type 2 [id number]. A1c 10.3 Acute on chronic kidney disease stage III secondary to hypovolemia. Chronic kidney disease secondary to diabetic nephropathy. Hypertension Coronary artery disease with history of stent placement History of CVA/TIA Hyperlipidemia History of [place] Rheumatoid arthritis Diabetic peripheral neuropathy Patient is currently legally blind BPH Anxiety/depression DVT prophylaxis with heparin subcu Plan: Patient will be continued on IV hydration and monitor renal function. Avoid nephrotoxins. Patient was started on preprandial and basal dose of insulin which will be titrated. Oral hypoglycemics on hold currently. Monitor renal function and nephrology is on board. Follow-up closely and further recommendations based on the clinical course. Monitor CBC and BMP tomorrow. Time with Patient: Greater than 30
[2020-01-01] MEDS: SODIUM CHLORIDE 0.9% 1,000 ML IV SCH ×2 (05:50→08:12)
[2020-01-01 06:40] LABS: Basophils % (A) 0 %; Eosinophils # (A) 0.1 k/uL (0-0.7); Eosinophils % (A) 3 %; HCT 26.9 % (39.0-53.0); HGB 9.5 gm/dL (13.0-17.5); Lymphocytes # (A) 1.3 k/uL (1.0-4.8); Lymphocytes % (A) 27 %; MCH 31.4 pg (25.0-35.0); MCHC 35.4 g/dL (31.0-37.0); MCV 88.6 fL (80.0-100.0); Monocytes # (A) 0.3 k/uL (0-1.0); Monocytes % (A) 6 %; Neutrophils # (A) 3.1 k/uL (1.3-7.7); Neutrophils % (A) 62 %; Platelet Count 112 k/uL (150-450); RBC 3.03 m/uL (4.30-5.90); RDW 13.9 % (11.5-15.5); WBC 4.9 k/uL (3.8-10.6)
[2020-01-01 07:08] LABS: Calcium 7.7 mg/dL (8.4-10.2); Potassium 4.1 mmol/L (3.5-5.1)
[2020-01-01 07:14] LABS: Glucose,Whole Blood 209 mg/dL (75-99)
[2020-01-01] MEDS: GABAPENTIN 300 MG CAP PO SCH ×2 (08:06→17:31)
[2020-01-01] MEDS: hydrALAZINE HCL 50 MG TAB PO SCH ×2 (08:06→17:32)
[2020-01-01] MEDS: ISOSORBIDE MONONITRATE ER 60 MG TAB.ER.24H PO SCH (08:06)
[2020-01-01] MEDS: PANTOPRAZOLE 40 MG TABLET PO SCH (08:06)
[2020-01-01] MEDS: DOCUSATE 100 MG CAP PO SCH ×2 (08:06→17:32)
[2020-01-01] MEDS: METOPROLOL SUCCINATE (ER) 50 MG TAB.ER.24H PO SCH (08:06)
[2020-01-01] MEDS: INSULIN ASPART (NovoLOG) 100 UNIT/ML VIAL SQ SCH ×6 (08:06→17:44)
[2020-01-01] MEDS: cloNIDine HCL 0.1 MG TAB PO SCH ×2 (08:06→17:32)
[2020-01-01] MEDS: LORATADINE 10 MG TAB PO SCH (08:06)
[2020-01-01] MEDS: TAMSULOSIN 0.4 MG CAP.ER.24H PO SCH (08:06)
[2020-01-01] MEDS: CITALOPRAM HYDROBROMIDE 20 MG TAB PO SCH (08:06)
[2020-01-01] MEDS: HEPARIN SODIUM,PORCINE 5,000 UNIT/ML 1 ML VIAL SQ SCH ×2 (08:07→17:32)
[2020-01-01] MEDS: COLCHICINE 0.6 MG EACH PO SCH (08:07)
[2020-01-01 10:00] VITALS: BMI 28.8
--- NOTE | 2020-01-01 11:11 | P.PN ---
Subjective Patient is seen in follow-up for acute kidney injury on chronic kidney disease. Renal function improving with IV fluids. Creatinine 1.65 today. Blood glucose 170 this morning. Oral intake is good. No vomiting or diarrhea. Vital signs are stable. General: The patient appeared well nourished and normally developed. HEENT: Head exam is unremarkable. Neck is without jugular venous distension. LUNGS: Lungs are clear to auscultation and percussion. Breath sounds decreased. HEART: Rate and Rhythm are regular. ABDOMEN: Soft, nontender. EXTREMITITES: No clubbing, cyanosis, or edema. Objective - Vital Signs Vital signs: Vital Signs Temp 97.6 F 01/01/20 04:00 Pulse 56 L 01/01/20 04:00 Resp 16 01/01/20 04:00 BP 118/70 01/01/20 04:00 Pulse Ox 94 L 01/01/20 04:00 Intake & Output 12/31/19 01/01/20 01/01/20 18:59 06:59 18:59 Intake Total 1040 675 Balance 1040 675 Weight 88.451 kg Intake: Intake, IV Titration 1040 675 Amount Sodium Chloride 0.9% 1, 1040 675 000 ml @ 75 mls/hr IV . [id number] [facility] Rx#:[id number] Other: Voiding Method Toilet # Voids 1 1 # Bowel Movements 1 - Labs CBC & Chem 7: 01/01/20 05:54 01/01/20 05:54 Labs: Abnormal Lab Results - Last 24 Hours (Table) 12/31/19 12/31/19 12/31/19 Range/Units 06:48 11:59 17:08 RBC (4.30-5.90) m/uL Hgb (13.0-17.5) gm/dL Hct (39.0-53.0) % Plt Count (150-450) k/uL Sodium (137-145) mmol/L Chloride (98-107) mmol/L BUN (9-20) mg/dL Creatinine (0.66-1.25) mg/dL Glucose (74-99) mg/dL POC Glucose (mg/dL) 302 H 203 H (75-99) mg/dL Hemoglobin A1c 10.3 H (4.0-6.0) % Calcium (8.4-10.2) mg/dL 12/31/19 01/01/20 01/01/20 Range/Units 20:16 05:54 05:54 RBC 3.03 L (4.30-5.90) m/uL Hgb 9.5 L (13.0-17.5) gm/dL Hct 26.9 L (39.0-53.0) % Plt Count 112 L (150-450) k/uL Sodium 135 L (137-145) mmol/L Chloride 108 H (98-107) mmol/L BUN 29 H (9-20) mg/dL Creatinine 1.65 H (0.66-1.25) mg/dL Glucose 170 H (74-99) mg/dL POC Glucose (mg/dL) 174 H (75-99) mg/dL Hemoglobin A1c (4.0-6.0) % Calcium 7.7 L (8.4-10.2) mg/dL 01/01/20 Range/Units 07:11 RBC (4.30-5.90) m/uL Hgb (13.0-17.5) gm/dL Hct (39.0-53.0) % Plt Count (150-450) k/uL Sodium (137-145) mmol/L Chloride (98-107) mmol/L BUN (9-20) mg/dL Creatinine (0.66-1.25) mg/dL Glucose (74-99) mg/dL POC Glucose (mg/dL) 209 H (75-99) mg/dL Hemoglobin A1c (4.0-6.0) % Calcium (8.4-10.2) mg/dL Assessment and Plan Plan: Assessment: 1. Acute kidney injury mostly prerenal secondary to hypovolemia secondary to hyperglycemia. Creatinine was 2.4 on admission and is 1.65 today. 2. Chronic kidney disease stage III with baseline creatinine in the range of 1.8-2 secondary to diabetic kidney disease. 3. Uncontrolled diabetes mellitus. Blood sugar over 500 this admission. Now on insulin. Blood sugar 170 this morning. 4. Hypertension with chronic kidney disease. Controlled. 5. Chronic kidney disease mineral bone disease maintained on calcitriol. Plan: Hep-Lock IV fluids. Oral intake is good. Avoid nephrotoxins. Continue to monitor renal function and urine output. Anticipate discharge soon. Follow up outpatient in 2 weeks.
[2020-01-01 11:32] LABS: Glucose,Whole Blood 259 mg/dL (75-99)
[2020-01-01 11:54] VITALS: BP 123/71; PULSE 55; TEMP 97.5
[2020-01-01 17:11] LABS: Glucose,Whole Blood 262 mg/dL (75-99)
[2020-01-01] MEDS: ASPIRIN 81 MG PO SCH (17:31)
[2020-01-01] MEDS: ALLOPURINOL 100 MG TAB PO SCH (17:32)
[2020-01-01] MEDS: amLODIPine 5 MG TAB PO SCH (17:32)
[2020-01-01] MEDS ORDERED: INSULIN DETEMIR (LEVEMIR) 100 UNIT/ML SYR SQ SCH (21:00)
[2020-01-02] MEDS ORDERED: CALCITRIOL 0.25 MCG CAP PO SCH (09:00)
[2020-01-02] MEDS ORDERED: ERGOCALCIFEROL 50,000 UNIT CAP PO SCH (09:00)
== END 2020-01-01 18:45 | disposition home health service (06) ==
LOC: EC 15:07 → 5NMEDONC 19:08
PROVIDERS: ADMIT Hospitalist; ATTEND Hospitalist
DX: E11.65 Type 2 diabetes mellitus with hyperglycemia (principal); E11.22 Type 2 diabetes mellitus with diabetic chronic kidney disease; E11.42 Type 2 diabetes mellitus with diabetic polyneuropathy; E78.5 Hyperlipidemia, unspecified; E86.1 Hypovolemia; F32.9 Major depressive disorder, single episode, unspecified; F41.9 Anxiety disorder, unspecified; H54.8 Legal blindness, as defined in USA; I12.9 Hypertensive chronic kidney disease with stage 1 through stage 4 chronic kidney disease, or unspecified chronic kidney disease; I25.10 Atherosclerotic heart disease of native coronary artery without angina pectoris; I25.2 Old myocardial infarction; M06.9 Rheumatoid arthritis, unspecified; N25.0 Renal osteodystrophy; N17.9 Acute kidney failure, unspecified; N18.3 Chronic kidney disease, stage 3 (moderate); Z79.82 Long term (current) use of aspirin; Z79.84 Long term (current) use of oral hypoglycemic drugs; Z79.899 Other long term (current) drug therapy; Z82.0 Family history of epilepsy and other diseases of the nervous system; Z82.49 Family history of ischemic heart disease and other diseases of the circulatory system; Z83.3 Family history of diabetes mellitus; Z86.73 Personal history of transient ischemic attack (TIA), and cerebral infarction without residual deficits; Z95.5 Presence of coronary angioplasty implant and graft; N40.1 Benign prostatic hyperplasia with lower urinary tract symptoms; R30.0 Dysuria; Z03.818 Encounter for observation for suspected exposure to other biological agents ruled out; Z91.041 Radiographic dye allergy status
CPT/HCPCS: 96361 ×2; 96372 ×3; 96360; 99285; 36415; 80048 ×2; 82009; 85025 ×2; 81003; 83036; G0378 ×3; U0003; J1644 ×3

== ENCOUNTER → 2020-05-01 | Outpatient (CLI) | payer MEDICARE ==
--- NOTE | 2020-05-01 08:27 | US ---
EXAMINATION TYPE: US abdomen complete DATE OF EXAM: 05/01/2020 COMPARISON: US CLINICAL HISTORY: R10.13 Epigastric pain. EXAM MEASUREMENTS: Liver Length: 13.4 cm Gallbladder Wall: 0.3 cm CBD: 0.3 cm Spleen: 14.1 cm Right Kidney: 10.5 x 6.9 x 6.0 cm Left Kidney: 11.4 x 5.5 x 5.7 cm Pancreas: not well visualized due to midline bowel gas Liver: wnl Gallbladder: appears full of layering sludge, echogenic foci appears attached to wall. Evidence for sonographic Solorzano's sign: No CBD: wnl Spleen: measures 14.1 cm Right Kidney: No hydronephrosis or masses seen Left Kidney: No hydronephrosis or masses seen Upper IVC: wnl Abd Aorta: limited visualization due to extensive midline bowel gas. The liver is homogenous. The intrahepatic portion of the IVC and proximal abdominal aorta are within normal limits. Common bile duct is unremarkable. The visualized portions of the pancreas are homog enous Kidneys are symmetric and free of hydronephrosis. No renal lesions are seen. IMPRESSION: 1. Cholelithiasis with gallbladder sludge. 2. Splenomegaly.
== END | disposition home or self-care (01) ==
LOC: RADUSWWP 07:01
PROVIDERS: ATTEND Internal Medicine Gastroenterology
DX: K80.20 Calculus of gallbladder without cholecystitis without obstruction (principal); R16.1 Splenomegaly, not elsewhere classified
CPT/HCPCS: 76700

== ENCOUNTER 2020-06-29 17:00 | Inpatient (IN) | payer MEDICARE ==
[~2020-06-29 17:00] MED LIST changes: +GLYCOPYRROLATE 0.2 MG/ML 2 ML VIAL ONE; +KETOROLAC 15 MG/ML 1 ML VIAL ONE; -LACTATED RINGERS 1,000 ML IV SCH; -LIDOCAINE 1% 20 ML VIAL (10MG/ML) FOR IV START INTRADERMA PRN; +MIDAZOLAM 2 MG/2 ML VIAL ONE; +NEOSTIGMINE 1 MG/ML 10 ML VIAL ONE; +ROCURONIUM 10 MG/ML (10 ML VIAL) IV ONE; +fentaNYL (PF) 50 MCG/ML 2 ML AMP ONE
--- NOTE | 2020-06-29 17:12 | ED ---
Back Pain HPI - General Chief Complaint: Back Pain/Injury Stated Complaint: back & rib pain Time Seen by Provider: 06/29/20 17:12 Source: patient Limitations: no limitations - History of Present Illness Initial Comments: 54-year-old male presents to emergency Department with a chief complaint of back and abdominal pain. Patient reports he woke up this morning with right, mid t horacic pain that radiates across to the right upper quadrant region. Patient reports nausea and multiple episodes of nonbilious and nonbloody vomiting. Patient states he only had some [place] to drink and he could not keep that down either. Patient reports increased pain usually postprandially. Patient reports he's been dealing with gallstones recently and has seen Dr. Garcia 2 weeks ago after having an ultrasound. Patient reports constipation but states that is baseline. Patient also has history of enlarged prostate some obstructive urinary symptoms are common for him. He does take Flomax. He denies any chest pain or shortness of breath. - Related Data Home Medications Medication Instructions Recorded Confirmed Pantoprazole [Protonix] 40 mg PO BID@999,219911/05/17 06/29/20 Tamsulosin [Flomax] 0.4 mg PO BID@1000,219911/05/17 06/29/20 Citalopram Hydrobromide [CeleXA] 20 mg PO DAILY@99912/12/18 06/29/20 Ergocalciferol (Vitamin D2) 50,000 unit PO MO 02/23/19 06/29/20 [Drisdol (50,000 units)] allopurinoL [Zyloprim] 100 mg PO BID@999,219904/05/19 06/29/20 hydrALAZINE HCL [Apresoline] 100 mg PO BID@1000,0 04/05/19 06/29/20 sitaGLIPtin [Januvia] 100 mg PO DAILY@1000 04/05/19 06/29/20 Clopidogrel Bisulfate [Plavix] 75 mg PO HS@2200 04/06/19 06/29/20 Glimepiride [Amaryl] 4 mg PO BID@1000,0 09/07/19 06/29/20 Lurasidone HCl [Latuda] 40 mg PO HS@2200 09/07/19 06/29/20 Aspirin 81 mg PO DAILY@1000 12/30/19 06/29/20 Atorvastatin [Lipitor] 80 mg PO HS@22012/30/19 06/29/20 Isosorbide Mononitrate ER [Imdur] 60 mg PO DAILY@99912/30/19 06/29/20 Metoprolol Succinate (ER) [Toprol 50 mg PO DAILY@99912/30/19 06/29/20 XL] amLODIPine [Norvasc] 5 mg PO DAILY@179912/30/19 06/29/20 cloNIDine HCL [Catapres] 0.1 mg PO DAILY@179912/30/19 06/29/20 Citalopram Hydrobromide [CeleXA] 40 mg PO DAILY@99906/29/20 06/29/20 Furosemide [Lasix] 40 mg PO DAILY@99906/29/20 06/29/20 Gabapentin [Neurontin] 300 mg PO BID@1000,219906/29/20 06/29/20 Insulin Detemir (Levemir) [Levemir] 25 unit SQ HS@219906/29/20 06/29/20 Sucralfate [Carafate] 1 gm PO BID@1000,219906/29/20 06/29/20 Allergies Allergy/AdvReac Type Severity Reaction Status Date / Time Iodinated Contrast Media AdvReac Nausea & Verified 06/29/20 19:13 [Iodinated Contrast- Oral Vomiting and IV Dye] Review of Systems ROS Statement: Those systems with pertinent positive or pertinent negative responses have been documented in the HPI. ROS Other: All systems not noted in ROS Statement are negative. Past Medical History Past Medical History: Coronary Artery Disease (CAD), CVA/TIA, Diabetes Mellitus, GERD/Reflux, Hyperlipidemia, Hypertension, Myocardial Infarction ([place]), Renal Disease, Rheumatoid Arthritis ([place]) Additional Past Medical History / Comment(s): stroke apr 2017, migranes, diabetic neuropathy arms and legs, stage 2 kidney failure, PANCREATITIS, LEGALLY BLIND, enlarged prostate, trouble urinating Last Myocardial Infarction Date:: 2014? not sure History of Any Multi-Drug Resistant Organisms: None Reported Past Surgical History: Heart Catheterization With Stent Additional Past Surgical History / Comment(s): Prostrate surgery Past Anesthesia/Blood Transfusion Reactions: No Reported Reaction Additional Past Anesthesia/Blood Transfusion Reaction / Comment(s): never had anethesia Date of Last Stent Placement:: 2017 Past Psychological History: Anxiety, Depression Smoking Status: Never smoker Past Alcohol Use History: None Reported Past Drug Use History: None Reported - Past Family History Mother Family Medical History: CVA/TIA, Diabetes Mellitus, Hypertension Additional Family Medical History / Comment(s): Parkinson's Mother is 77yrs old. Father Family Medical History: CVA/TIA, Diabetes Mellitus, Myocardial Infarction ([place]) Additional Family Medical History / Comment(s): Father of a [place] in his 50s. General Exam Limitations: no limitations General appearance: alert Head exam: Present: atraumatic, normocephalic, normal inspection Eye exam: Present: normal appearance, PERRL, EOMI Pupils: Present: normal accommodation ENT exam: Present: normal exam, normal oropharynx, mucous membranes moist, TM's normal bilaterally, normal external ear exam Neck exam: Present: normal inspection, full ROM. Absent: tenderness Respiratory exam: Present: normal lung sounds bilaterally. Absent: respiratory distress, wheezes, rales, rhonchi, stridor Cardiovascular Exam: Present: regular rate, normal rhythm, normal heart sounds. Absent: systolic murmur, diastolic murmur GI/Abdominal exam: Present: soft, tenderness (Right upper quadrant abdominal pain. Negative Solorzano sign.). Absent: distended, guarding, rebound, rigid Extremities exam: Present: normal inspection, full ROM, normal capillary refill. Absent: tenderness, pedal edema, joint swelling, calf tenderness Back exam: Present: normal inspection, full ROM, tenderness (Tenderness in the right midthoracic region. No mid vertebral tenderness). Absent: CVA tenderness (R), CVA tenderness (L), vertebral tenderness Neurological exam: Present: alert, oriented X3, normal gait Psychiatric exam: Present: normal affect, normal mood Skin exam: Present: warm, dry, intact, normal color Course Vital Signs 06/29/20 06/29/20 17:02 20:28 Temperature 98.3 F Pulse Rate 84 73 Respiratory 18 16 Rate Blood Pressure 155/73 176/74 O2 Sat by Pulse 98 97 Oximetry Medical Decision Making - Medical Decision Making 54-year-old male with history of gallstones, CAD, stage IV chronic kidney disease presenting to the emergency department with a chief complaint of back and abdominal pain. On physical examination, patient does have right upper quadrant tenderness. He also has some right, midthoracic localized tenderness. No region of ecchymosis. No trauma. CBC reveals leukocytosis of 14.4 K which could also be reactive secondary to the vomiting. He does have poor renal function, elevated BUN and creatinine, although that appears to be his baseline. Initial troponin negative. EKG showing sinus rhythm. He does have cardiac stents. Patient was given IV fluids, antiemetics and Dilaudid. On reevaluation, reports continuous pain in the region. Ultrasound reveal a large gallbladder but no signs of gallstones. There is echoic bile which was not pres ent in the last imaging. No signs of choledocholithiasis. Chest x-ray is unremarkable. Chest abdomen pelvis CT without contrast obtained reveals no acute processes aside from an enlarged gallbladder which measures about 4.3 cm in diameter. There is also a hiatal hernia. Patient continued to complain of pain and was given second dose of Dilaudid. Patient will be admitted for further medical management. Case was discussed with who also evaluated the patient. Patient will be started on antibiotics and admitted for observation. Nothing by mouth. Admitting physician is - Lab Data Result diagrams: 06/29/20 17:43 06/29/20 17:43 Lab Results 06/29/20 06/29/20 06/29/20 Range/Units 17:43 17:43 17:43 WBC 14.2 H (3.8-10.6) k/uL RBC 3.55 L (4.30-5.90) m/uL Hgb 10.7 L (13.0-17.5) gm/dL Hct 30.6 L (39.0-53.0) % MCV 86.1 (80.0-100.0) fL MCH 30.3 (25.0-35.0) pg MCHC 35.1 (31.0-37.0) g/dL RDW 13.5 (11.5-15.5) % Plt Count 145 L (150-450) k/uL MPV 6.6 Neutrophils % 89 % Lymphocytes % 4 % Monocytes % 6 % Eosinophils % 0 % Basophils % 0 % Neutrophils # 12.5 H (1.3-7.7) k/uL Lymphocytes # 0.6 L (1.0-4.8) k/uL Monocytes # 0.9 (0-1.0) k/uL Eosinophils # 0.0 (0-0.7) k/uL Basophils # 0.0 (0-0.2) k/uL PT 10.4 (9.0-12.0) sec INR 1.0 (<1.2) APTT 24.2 (22.0-30.0) sec Sodium 136 L (137-145) mmol/L Potassium 4.6 (3.5-5.1) mmol/L Chloride 102 (98-107) mmol/L Carbon Dioxide 24 (22-30) mmol/L Anion Gap 10 mmol/L BUN 36 H (9-20) mg/dL Creatinine 2.38 H (0.66-1.25) mg/dL Est GFR (CKD-EPI)AfAm 35 (>60 ml/min/1.73 sqM) Est GFR (CKD-EPI)NonAf 30 (>60 ml/min/1.73 sqM) Glucose 286 H (74-99) mg/dL Calcium 9.2 (8.4-10.2) mg/dL Magnesium 1.9 (1.6-2.3) mg/dL Total Bilirubin 0.8 (0.2-1.3) mg/dL AST 26 (17-59) U/L ALT 31 (4-49) U/L Alkaline Phosphatase 123 (38-126) U/L Troponin I (0.000-0.034) ng/mL Total Protein 7.1 (6.3-8.2) g/dL Albumin 4.3 (3.5-5.0) g/dL Lipase 120 (23-300) U/L Urine Color Urine Appearance (Clear) Urine pH (5.0-8.0) Ur Specific [place] (1.001-1.035) Urine Protein (Negative) Urine Glucose (UA) (Negative) Urine Ketones (Negative) Urine Blood (Negative) Urine Nitrite (Negative) Urine Bilirubin (Negative) Urine Urobilinogen (<2.0) mg/dL Ur Leukocyte Esterase (Negative) Urine RBC (0-5) /hpf Urine WBC (0-5) /hpf Hyaline Casts (0-2) /lpf Urine Mucus (None) /hpf 06/29/20 06/29/20 Range/Units 17:43 18:29 WBC (3.8-10.6) k/uL RBC (4.30-5.90) m/uL Hgb (13.0-17.5) gm/dL Hct (39.0-53.0) % MCV (80.0-100.0) fL MCH (25.0-35.0) pg MCHC (31.0-37.0) g/dL RDW (11.5-15.5) % Plt Count (150-450) k/uL MPV Neutrophils % % Lymphocytes % % Monocytes % % Eosinophils % % Basophils % % Neutrophils # (1.3-7.7) k/uL Lymphocytes # (1.0-4.8) k/uL Monocytes # (0-1.0) k/uL Eosinophils # (0-0.7) k/uL Basophils # (0-0.2) k/uL PT (9.0-12.0) sec INR (<1.2) APTT (22.0-30.0) sec Sodium (137-145) mmol/L Potassium (3.5-5.1) mmol/L Chloride (98-107) mmol/L Carbon Dioxide (22-30) mmol/L Anion Gap mmol/L BUN (9-20) mg/dL Creatinine (0.66-1.25) mg/dL Est GFR (CKD-EPI)AfAm (>60 ml/min/1.73 sqM) Est GFR (CKD-EPI)NonAf (>60 ml/min/1.73 sqM) Glucose (74-99) mg/dL Calcium (8.4-10.2) mg/dL Magnesium (1.6-2.3) mg/dL Total Bilirubin (0.2-1.3) mg/dL AST (17-59) U/L ALT (4-49) U/L Alkaline Phosphatase (38-126) U/L Troponin I <0.012 (0.000-0.034) ng/mL Total Protein (6.3-8.2) g/dL Albumin (3.5-5.0) g/dL Lipase (23-300) U/L Urine Color Light Yellow Urine Appearance Clear (Clear) Urine pH 5.5 (5.0-8.0) Ur Specific [place] 1.010 (1.001-1.035) Urine Protein 1+ H (Negative) Urine Glucose (UA) 3+ H (Negative) Urine Ketones Negative (Negative) Urine Blood Negative (Negative) Urine Nitrite Negative (Negative) Urine Bilirubin Negative (Negative) Urine Urobilinogen <2.0 (<2.0) mg/dL Ur Leukocyte Esterase Negative (Negative) Urine RBC 2 (0-5) /hpf Urine WBC <1 (0-5) /hpf Hyaline Casts 1 (0-2) /lpf Urine Mucus Rare H (None) /hpf - EKG Data EKG Comments: Sinus rhythm, Q waves in lead 3 Ventricular rate 69, VA 160, QRS 92, QTC 465. Disposition Clinical Impression: Enlarged gallbladder, Abdominal pain, Intractable abdominal pain Disposition: ADMITTED IP TO THIS [facility] Condition: Good Instructions (If sedation given, give patient instructions): Abdominal Pain (ED) Is patient prescribed a controlled substance at d/c from ED?: No Referrals: Lamar Scott MD [Primary Care Provider] - 1-2 days Time of Disposition: 21:00
[2020-06-29] MEDS ORDERED: ONDANSETRON 4 MG/2 ML VIAL IVP STA (17:30)
[2020-06-29 18:17] LABS: Albumin 4.3 g/dL (3.5-5.0); Calcium 9.2 mg/dL (8.4-10.2); Magnesium 1.9 mg/dL (1.6-2.3); Potassium 4.6 mmol/L (3.5-5.1); Total Bilirubin 0.8 mg/dL (0.2-1.3); Total Protein 7.1 g/dL (6.3-8.2)
[2020-06-29 18:18] LABS: Basophils % (A) 0 %; Eosinophils % (A) 0 %; HCT 30.6 % (39.0-53.0); HGB 10.7 gm/dL (13.0-17.5); Lymphocytes # (A) 0.6 k/uL (1.0-4.8); Lymphocytes % (A) 4 %; MCH 30.3 pg (25.0-35.0); MCHC 35.1 g/dL (31.0-37.0); MCV 86.1 fL (80.0-100.0); Mean Platelet Volume 6.6; Monocytes # (A) 0.9 k/uL (0-1.0); Monocytes % (A) 6 %; Neutrophils # (A) 12.5 k/uL (1.3-7.7); Neutrophils % (A) 89 %; Platelet Count 145 k/uL (150-450); RBC 3.55 m/uL (4.30-5.90); RDW 13.5 % (11.5-15.5); WBC 14.2 k/uL (3.8-10.6)
--- NOTE | 2020-06-29 18:22 | XR ---
EXAMINATION TYPE: XR chest 2V DATE OF EXAM: 06/29/2020 COMPARISON: 12/11/2019 HISTORY: Chest pain TECHNIQUE: FINDINGS: Heart and mediastinum are normal. Lungs are clear. Diaphragm is normal. Bony thorax appears normal. IMPRESSION: Normal chest. No change.
[2020-06-29] MEDS ORDERED: SODIUM CHLORIDE 0.9% 1,000 ML IV STA (18:31)
[2020-06-29 18:33] LABS: Partial Thromboplastin Time 24.2 sec (22.0-30.0); Prothrombin Time 10.4 sec (9.0-12.0)
[2020-06-29] MEDS ORDERED: HYDROmorphone 0.5 MG/0.5 ML SYRINGE IVP STA ×2 (18:36→19:30)
[2020-06-29 18:56] LABS: Appearance,Urine Clear (Clear); Bilirubin,Urine Negative (Negative); Blood,Urine Negative (Negative); Color,Urine Light Yellow; Glucose,Urine (UA) 3+ (Negative); Hyaline Casts,Urine 1 /lpf (0-2); Ketones,Urine Negative (Negative); Leukocyte Esterase,Urine Negative (Negative); Mucus,Urine Rare /hpf; Nitrite,Urine Negative (Negative); PH, Urine 5.5 (5.0-8.0); Protein,Urine 1+ (Negative); RBC,Urine 2 /hpf (0-5); Urobilinogen,Urine <2.0 mg/dL (<2.0); WBC,Urine <1 /hpf (0-5)
--- NOTE | 2020-06-29 19:08 | US ---
EXAMINATION TYPE: US abdomen limited DATE OF EXAM: 06/29/2020 COMPARISON: 05/01/2020 CLINICAL HISTORY: Right upper quadrant. RUQ pain, nausea/vomiting EXAM MEASUREMENTS: Liver Length: 14.8 cm Gallbladder Wall: 0.3 cm CBD: 0.5 cm Right Kidney: 9.5 x 5.4 x 5.1 cm *Technical limitations due to large amount of overlying bowel content Pancreas: Obscured by bowel gas Liver: only visualized intercostally, appears wnl Gallbladder: filled with sludge and possible solid component Evidence for sonographic Solorzano's sign: no CBD: limited evaluation, appears wnl as visualized Right Kidney: no evidence of hydronephrosis or mass IMPRESSION: There is some echogenic bile. No gallstones. No dilated ducts. No discrete liver mass. Ec hogenic bile throughout the gallbladder is a change compared to old exam. This could relate to choles tasis.
--- NOTE | 2020-06-29 20:21 | CT ---
EXAMINATION TYPE: CT ChestAbdPelvis wo con DATE OF EXAM: 06/29/2020 COMPARISON: 10/13/2017 and 09/07/2019. HISTORY: Upper back and RUQ pain. No known injury. CT DLP: 677.4 mGycm Automated exposure control for dose reduction was used. Images obtained from the diaphragm to the floor the pelvis without contrast. Lung bases are clear. There is no pleural effusion. There is coronary artery calcification. Heart siz e is normal. Liver spleen stomach pancreas gallbladder appear intact. Bile ducts are not dilated. Gallbladder is l arge and measures 4.3 cm in diameter. There is hiatal hernia. There is no adrenal mass. The kidneys have normal size. There is no hydronephrosis. Ureters are not d ilated. There is no evidence of a renal calculus. There is no retroperitoneal adenopathy. Bladder dis tends smoothly. There is no inguinal hernia. There is no free fluid in the pelvis. There is no sign o f a pelvic mass. The appendix is posterior and appears normal. There is small umbilical hernia that contains fat. The thoracic and lumbar vertebra appear intact. There is no compression fracture. Sternum is intact. Bony pelvis is intact. IMPRESSION: Gallbladder increased compared to old exam. Some bladder dysfunction is possible. This is a change co mpared to old exam. No change seen in the chest.
[2020-06-29] MEDS ORDERED: NALOXONE 0.4 MG/ML 1 ML VIAL IV PRN (20:50)
[2020-06-29] MEDS ORDERED: ONDANSETRON 4 MG/2 ML VIAL IVP PRN (20:50)
[2020-06-29] MEDS ORDERED: LORazepam 2 MG/ML INJ IV PRN (20:50)
[2020-06-29] MEDS ORDERED: MORPHINE SULFATE 4 MG/ML SYRINGE IV PRN (20:50)
[2020-06-29] MEDS ORDERED: PIPERACILLIN-TAZOBACTAM 3.375 GM in SODIUM CHLORIDE 0.9% 100 ML IVPB ONE (21:00)
[2020-06-29] MEDS: SODIUM CHLORIDE 0.9% 1,000 ML IV SCH (21:32)
[2020-06-29] MEDS: HYDROmorphone 0.5 MG/0.5 ML SYRINGE IVP PRN (22:32)
[2020-06-29] MEDS: ATORVASTATIN 80 MG TAB PO SCH (23:36)
[2020-06-29] MEDS: GABAPENTIN 300 MG CAP PO SCH (23:36)
[2020-06-29] MEDS: CLOPIDOGREL 75 MG TAB PO SCH (23:36)
[2020-06-29] MEDS: hydrALAZINE HCL 50 MG TAB PO SCH (23:41)
[2020-06-30] MEDS: HYDROmorphone 0.5 MG/0.5 ML SYRINGE IVP PRN ×5 (02:53→18:27)
[2020-06-30 06:30] LABS: Glucose,Whole Blood 231 mg/dL (75-99)
[2020-06-30] MEDS: METOPROLOL SUCCINATE (ER) 50 MG TAB.ER.24H PO SCH (09:22)
[2020-06-30] MEDS: GLIMEPIRIDE 4 MG TAB PO SCH ×2 (09:22→22:05)
[2020-06-30] MEDS: SUCRALFATE 1 GM TAB PO SCH ×2 (09:22→22:05)
[2020-06-30] MEDS: LINAGLIPTIN 5 MG TABLET PO SCH (09:22)
[2020-06-30] MEDS: ASPIRIN 81 MG PO SCH (09:22)
[2020-06-30] MEDS: hydrALAZINE HCL 50 MG TAB PO SCH ×2 (09:23→22:05)
[2020-06-30] MEDS: GABAPENTIN 300 MG CAP PO SCH ×2 (09:23→22:05)
[2020-06-30] MEDS: FUROSEMIDE 40 MG TAB PO SCH (09:23)
[2020-06-30] MEDS: TAMSULOSIN 0.4 MG CAP.ER.24H PO SCH ×2 (09:23→22:05)
[2020-06-30] MEDS: PANTOPRAZOLE 40 MG TABLET PO SCH ×2 (09:23→22:05)
[2020-06-30] MEDS: CITALOPRAM HYDROBROMIDE 20 MG TAB PO SCH ×2 (09:23→09:24)
[2020-06-30] MEDS: allopurinoL 100 MG TAB PO SCH ×2 (09:24→22:05)
[2020-06-30] MEDS: ISOSORBIDE MONONITRATE ER 60 MG TAB.ER.24H PO SCH (09:24)
[2020-06-30] MEDS: SODIUM CHLORIDE 0.9% 1,000 ML IV SCH (11:20)
--- NOTE | 2020-06-30 11:32 | P.GSHP ---
History of Present Illness H&P Date: 06/30/20 Chief Complaint: Right upper quadrant pain This a 54-year-old male who presents today for workup of abdominal pain. Patient seen in the emergency me found have evidence of acute cholecystitis. Past Medical History Past Medical History: Coronary Artery Disease (CAD), CVA/TIA, Diabetes Mellitus, GERD/Reflux, Hyperlipidemia, Hypertension, Myocardial Infarction ([place]), Renal Disease, Rheumatoid Arthritis (RA) Additional Past Medical History / Comment(s): stroke apr 2017, migranes, diabetic neuropathy arms and legs, stage 2 kidney failure, PANCREATITIS, LEGALLY BLIND, enlarged prostate, trouble urinating Last Myocardial Infarction Date:: 2014? not sure History of Any Multi-Drug Resistant Organisms: None Reported Past Surgical History: Heart Catheterization With Stent Additional Past Surgical History / Comment(s): Prostrate surgery Past Anesthesia/Blood Transfusion Reactions: No Reported Reaction Additional Past Anesthesia/Blood Transfusion Reaction / Comment(s): never had anethesia Date of Last Stent Placement:: 2017 Past Psychological History: Anxiety, Depression Additional Psychological History / Comment(s): Pt resides with his spouse. He uses a quad cane or walker to ambulate. He is legally blind. He reads minimally with magnifying glass and signs his name only now. His spouse drives him to [employer]. Smoking Status: Never smoker Past Alcohol Use History: None Reported Past Drug Use History: None Reported - Past Family History Mother Family Medical History: CVA/TIA, Diabetes Mellitus, Hypertension Additional Family Medical History / Comment(s): Parkinson's Mother is 77yrs old. Father Family Medical History: CVA/TIA, Diabetes Mellitus, Myocardial Infarction ([place]) Additional Family Medical History / Comment(s): Father of a [place] in his 50s. Medications and Allergies Home Medications Medication Instructions Recorded Confirmed Type Pantoprazole [Protonix] 40 mg PO BID@1000,2200 11/05/17 06/29/20 History Tamsulosin [Flomax] 0.4 mg PO BID@1000,2200 11/05/17 06/29/20 History Citalopram Hydrobromide [CeleXA] 20 mg PO DAILY@1000 12/12/18 06/29/20 History Ergocalciferol (Vitamin D2) 50,000 unit PO MO 02/23/19 06/29/20 History [Drisdol (50,000 units)] allopurinoL [Zyloprim] 100 mg PO BID@999,219904/05/19 06/29/20 History hydrALAZINE HCL [Apresoline] 100 mg PO BID@999,219904/05/19 06/29/20 History sitaGLIPtin [Januvia] 100 mg PO DAILY@99904/05/19 06/29/20 History Clopidogrel Bisulfate [Plavix] 75 mg PO HS@219904/06/19 06/29/20 History Glimepiride [Amaryl] 4 mg PO BID@999,219909/07/19 06/29/20 History Lurasidone HCl [Latuda] 40 mg PO HS@219909/07/19 06/29/20 History Aspirin 81 mg PO DAILY@99912/30/19 06/29/20 History Atorvastatin [Lipitor] 80 mg PO HS@219912/30/19 06/29/20 History Isosorbide Mononitrate ER [Imdur] 60 mg PO DAILY@99912/30/19 06/29/20 History Metoprolol Succinate (ER) [Toprol 50 mg PO DAILY@99912/30/19 06/29/20 History XL] amLODIPine [Norvasc] 5 mg PO DAILY@179912/30/19 06/29/20 History cloNIDine HCL [Catapres] 0.1 mg PO DAILY@179912/30/19 06/29/20 History Citalopram Hydrobromide [CeleXA] 40 mg PO DAILY@99906/29/20 06/29/20 History Furosemide [Lasix] 40 mg PO DAILY@99906/29/20 06/29/20 History Gabapentin [Neurontin] 300 mg PO BID@999,219906/29/20 06/29/20 History Insulin Detemir (Levemir) [Levemir] 25 unit SQ HS@219906/29/20 06/29/20 History Sucralfate [Carafate] 1 gm PO BID@999,219906/29/20 06/29/20 History Allergies Allergy/AdvReac Type Severity Reaction Status Date / Time Iodinated Contrast Media AdvReac Nausea & Verified 06/29/20 19:13 [Iodinated Contrast- Oral Vomiting and IV Dye] Surgical - Exam Vital Signs Temp Pulse Resp BP Pulse Ox 98.3 F 84 18 155/73 98 06/29/20 17:02 06/29/20 17:02 06/29/20 17:02 06/29/20 17:02 06/29/20 17:02 - General well developed, well nourished, no distress - Eyes PERRL - ENT normal pinna - Neck no masses - Respiratory normal expansion - Cardiovascular Rhythm: regular - Abdomen Right upper quadrant pain Abdomen: soft Results - Labs 06/29/20 17:43 06/29/20 17:43 Abnormal Lab Results - Last 24 Hours (Table) 06/29/20 06/29/20 06/29/20 Range/Units 17:43 17:43 18:29 WBC 14.2 H (3.8-10.6) k/uL RBC 3.55 L (4.30-5.90) m/uL Hgb 10.7 L (13.0-17.5) gm/dL Hct 30.6 L (39.0-53.0) % Plt Count 145 L (150-450) k/uL Neutrophils # 12.5 H (1.3-7.7) k/uL Lymphocytes # 0.6 L (1.0-4.8) k/uL Sodium 136 L (137-145) mmol/L BUN 36 H (9-20) mg/dL Creatinine 2.38 H (0.66-1.25) mg/dL Glucose 286 H (74-99) mg/dL POC Glucose (mg/dL) (75-99) mg/dL Urine Protein 1+ H (Negative) Urine Glucose (UA) 3+ H (Negative) Urine Mucus Rare H (None) /hpf 06/30/20 Range/Units 06:29 WBC (3.8-10.6) k/uL RBC (4.30-5.90) m/uL Hgb (13.0-17.5) gm/dL Hct (39.0-53.0) % Plt Count (150-450) k/uL Neutrophils # (1.3-7.7) k/uL Lymphocytes # (1.0-4.8) k/uL Sodium (137-145) mmol/L BUN (9-20) mg/dL Creatinine (0.66-1.25) mg/dL Glucose (74-99) mg/dL POC Glucose (mg/dL) 231 H (75-99) mg/dL Urine Protein (Negative) Urine Glucose (UA) (Negative) Urine Mucus (None) /hpf Diabetes panel 06/29/20 Range/Units 17:43 Sodium 136 L (137-145) mmol/L Potassium 4.6 (3.5-5.1) mmol/L Chloride 102 (98-107) mmol/L Carbon Dioxide 24 (22-30) mmol/L BUN 36 H (9-20) mg/dL Creatinine 2.38 H (0.66-1.25) mg/dL Glucose 286 H (74-99) mg/dL Calcium 9.2 (8.4-10.2) mg/dL AST 26 (17-59) U/L ALT 31 (4-49) U/L Alkaline Phosphatase 123 (38-126) U/L Total Protein 7.1 (6.3-8.2) g/dL Albumin 4.3 (3.5-5.0) g/dL Calcium panel 06/29/20 Range/Units 17:43 Calcium 9.2 (8.4-10.2) mg/dL Albumin 4.3 (3.5-5.0) g/dL Pituitary panel 06/29/20 Range/Units 17:43 Sodium 136 L (137-145) mmol/L Potassium 4.6 (3.5-5.1) mmol/L Chloride 102 (98-107) mmol/L Carbon Dioxide 24 (22-30) mmol/L BUN 36 H (9-20) mg/dL Creatinine 2.38 H (0.66-1.25) mg/dL Glucose 286 H (74-99) mg/dL Calcium 9.2 (8.4-10.2) mg/dL Adrenal panel 06/29/20 Range/Units 17:43 Sodium 136 L (137-145) mmol/L Potassium 4.6 (3.5-5.1) mmol/L Chloride 102 (98-107) mmol/L Carbon Dioxide 24 (22-30) mmol/L BUN 36 H (9-20) mg/dL Creatinine 2.38 H (0.66-1.25) mg/dL Glucose 286 H (74-99) mg/dL Calcium 9.2 (8.4-10.2) mg/dL Total Bilirubin 0.8 (0.2-1.3) mg/dL AST 26 (17-59) U/L ALT 31 (4-49) U/L Alkaline Phosphatase 123 (38-126) U/L Total Protein 7.1 (6.3-8.2) g/dL Albumin 4.3 (3.5-5.0) g/dL - Imaging Additional studies: Echogenic bile on gallbladder ultrasound. Assessment and Plan Assessment: Acute cholecystitis. Patient undergo laparoscopic ostectomy in the a.m.
--- NOTE | 2020-06-30 11:33 | P.CON ---
Consult Note - . Consult date: 06/30/20 Assessment/Plan:: Reason for consult- management of chronic medical conditions Mr. ordonez is a 54-year-old male with a past medical history of coronary artery disease, CVA, diabetes mellitus, GERD, hypertension, hyperlipidemia, [place], CK D stage IV, rheumatoid arthritis coming into the hospital with a chief complaint of right upper quadrant abdominal pain that was radiating to the right side and back. Patient had multiple episodes of nonbloody nonbilious vomiting, he tried to drink Vernors , but could not keep it down and started to throw up again. As the patient's pain was progressively getting worse, he came into the ED. Patient states that he has a history of gallstones and has been following with Dr. Garcia. Patient has history of BPH, as obstructive urinary symptoms that are common for him. Patient denies having any chest pain or difficulty in breathing. History of constipation. Patient denies having any swelling of his extremities. In the year patient had an abdominal ultrasound showing increased echogenicity throughout the body gallbladder, good related to cholestasis. He also had a CAT scan of the abdomen and pelvis showing increased gallbladder, some gallbladder dysfunction possibility. Patient has admitted for further management and we are consulted for management of his chronic medical conditions. REVIEW OF SYSTEMS: CONSTITUTIONAL: No fever, no malaise, no fatigue. HEENT: No recent visual problems or hearing problems. Denied any sore throat. CARDIOVASCULAR: No chest pain, orthopnea, PND, no palpitations, no syncope. PULMONARY:no hemoptysis. GASTROINTESTINAL: As per HPI NEUROLOGICAL: No headaches, no weakness, no numbness. HEMATOLOGICAL: Denies any bleeding or petechiae. GENITOURINARY: Denies any burning micturition, frequency, or urgency. MUSCULOSKELETAL/RHEUMATOLOGICAL: History of rheumatoid arthritis. ENDOCRINE: Denies any polyuria or polydipsia. The rest of the 14-point review of systems is negative. Past Medical History Past Medical History: Coronary Artery Disease (CAD), CVA/TIA, Diabetes Mellitus, GERD/Reflux, Hyperlipidemia, Hypertension, Myocardial Infarction ([place]), Renal Disease, Rheumatoid Arthritis ([place]) Additional Past Medical History / Comment(s): stroke apr 2017, migranes, diabetic neuropathy arms and legs, stage 2 kidney failure, PANCREATITIS, LEGALLY BLIND, enlarged prostate, trouble urinating Last Myocardial Infarction Date:: 2014? not sure History of Any Multi-Drug Resistant Organisms: None Reported Past Surgical History: Heart Catheterization With Stent Additional Past Surgical History / Comment(s): Prostrate surgery Past Anesthesia/Blood Transfusion Reactions: No Reported Reaction Additional Past Anesthesia/Blood Transfusion Reaction / Comment(s): never had anethesia Date of Last Stent Placement:: 2017 Past Psychological History: Anxiety, Depression Additional Psychological History / Comment(s): Pt resides with his spouse. He uses a quad cane or walker to ambulate. He is legally blind. He reads minimally with magnifying glass and signs his name only now. His spouse drives him to [employer]. Smoking Status: Never smoker Past Alcohol Use History: None Reported Past Drug Use History: None Reported - Past Family History Mother Family Medical History: CVA/TIA, Diabetes Mellitus, Hypertension Additional Family Medical History / Comment(s): Parkinson's Mother is 77yrs old. Father Family Medical History: CVA/TIA, Diabetes Mellitus, Myocardial Infarction ([place]) Additional Family Medical History / Comment(s): Father of a [place] in his 50s. Medications and Allergies Home Medications Medication Instructions Recorded Confirmed Type Pantoprazole [Protonix] 40 mg PO BID@1000,0 11/05/17 06/29/20 History Tamsulosin [Flomax] 0.4 mg PO BID@1000,219911/05/17 06/29/20 History Citalopram Hydrobromide [CeleXA] 20 mg PO DAILY@1000 12/12/18 06/29/20 History Ergocalciferol (Vitamin D2) 50,000 unit PO MO 02/23/19 06/29/20 History [Drisdol (50,000 units)] allopurinoL [Zyloprim] 100 mg PO BID@1000,2200 04/05/19 06/29/20 History hydrALAZINE HCL [Apresoline] 100 mg PO BID@1000,219904/05/19 06/29/20 History sitaGLIPtin [Januvia] 100 mg PO DAILY@1000 04/05/19 06/29/20 History Clopidogrel Bisulfate [Plavix] 75 mg PO HS@0 04/06/19 06/29/20 History Glimepiride [Amaryl] 4 mg PO BID@1000,2200 09/07/19 06/29/20 History Lurasidone HCl [Latuda] 40 mg PO HS@219909/07/19 06/29/20 History Aspirin 81 mg PO DAILY@99912/30/19 06/29/20 History Atorvastatin [Lipitor] 80 mg PO HS@219912/30/19 06/29/20 History Isosorbide Mononitrate ER [Imdur] 60 mg PO DAILY@99912/30/19 06/29/20 History Metoprolol Succinate (ER) [Toprol 50 mg PO DAILY@99912/30/19 06/29/20 History XL] amLODIPine [Norvasc] 5 mg PO DAILY@179912/30/19 06/29/20 History cloNIDine HCL [Catapres] 0.1 mg PO DAILY@179912/30/19 06/29/20 History Citalopram Hydrobromide [CeleXA] 40 mg PO DAILY@99906/29/20 06/29/20 History Furosemide [Lasix] 40 mg PO DAILY@99906/29/20 06/29/20 History Gabapentin [Neurontin] 300 mg PO BID@1000,219906/29/20 06/29/20 History Insulin Detemir (Levemir) [Levemir] 25 unit SQ HS@219906/29/20 06/29/20 History Sucralfate [Carafate] 1 gm PO BID@999,219906/29/20 06/29/20 History Allergies Allergy/AdvReac Type Severity Reaction Status Date / Time Iodinated Contrast Media AdvReac Nausea & Verified 06/29/20 19:13 [Iodinated Contrast- Oral Vomiting and IV Dye] Physical Exam Vitals: Vital Signs Temp Pulse Pulse Resp BP BP Pulse Ox 06/30/20 09:00 98.5 F 76 18 161/75 96 06/30/20 03:00 99.2 F 81 18 152/65 95 06/29/20 20:28 73 16 176/74 97 06/29/20 17:02 98.3 F 84 18 155/73 98 Intake and Output 06/29/20 06/30/20 06/30/20 22:59 06:59 14:59 Output Total 350 Balance -350 Output: Urine 350 Other: Voiding Method Urinal Urinal # Voids 1 Weight 86.183 kg PHYSICAL EXAMINATION: GENERAL: The patient is alert and oriented X3, in any acute distress. Well developed, well nourished. HEENT: Pupils are round and equally reacting to light. EOMI. No scleral icterus. No conjunctival pallor. Normocephalic, atraumatic. No pharyngeal erythema. No thyromegaly. CARDIOVASCULAR: S1 and S2 present. No murmurs, rubs, or gallops. PULMONARY: Chest is clear to auscultation, no wheezing or crackles. ABDOMEN: Tenderness in the right upper quadrant, normal bowel sounds. MUSCULOSKELETAL: No joint swelling or deformity. EXTREMITIES: No cyanosis, clubbing, or pedal edema. NEUROLOGICAL: No focal neurological deficits on gross exam. SKIN: No rash Results CBC & Chem 7: 06/29/20 17:43 06/29/20 17:43 Labs: Abnormal Lab Results - Last 24 Hours (Table) 06/29/20 06/29/20 06/29/20 Range/Units 17:43 17:43 18:29 WBC 14.2 H (3.8-10.6) k/uL RBC 3.55 L (4.30-5.90) m/uL Hgb 10.7 L (13.0-17.5) gm/dL Hct 30.6 L (39.0-53.0) % Plt Count 145 L (150-450) k/uL Neutrophils # 12.5 H (1.3-7.7) k/uL Lymphocytes # 0.6 L (1.0-4.8) k/uL Sodium 136 L (137-145) mmol/L BUN 36 H (9-20) mg/dL Creatinine 2.38 H (0.66-1.25) mg/dL Glucose 286 H (74-99) mg/dL POC Glucose (mg/dL) (75-99) mg/dL Urine Protein 1+ H (Negative) Urine Glucose (UA) 3+ H (Negative) Urine Mucus Rare H (None) /hpf 06/30/20 Range/Units 06:29 WBC (3.8-10.6) k/uL RBC (4.30-5.90) m/uL Hgb (13.0-17.5) gm/dL Hct (39.0-53.0) % Plt Count (150-450) k/uL Neutrophils # (1.3-7.7) k/uL Lymphocytes # (1.0-4.8) k/uL Sodium (137-145) mmol/L BUN (9-20) mg/dL Creatinine (0.66-1.25) mg/dL Glucose (74-99) mg/dL POC Glucose (mg/dL) 231 H (75-99) mg/dL Urine Protein (Negative) Urine Glucose (UA) (Negative) Urine Mucus (None) /hpf ASSESSMENT Intractable abdominal pain- possibly to enlarge gallbladder Nausea and vomiting Leukocytosis CK D stage 3 History of coronary artery disease Diabetes mellitus GERD Hypertension Hyperlipidemia Rheumatoid arthritis Migraine headaches Diabetic neuropathy Enlarge prostate PLAN: Patient has intractable abdominal pain possibly secondary to enlarge gallbladder, being managed by Primary team. Patient has been restarted on his home medications. We will continue with the current medical management. Furt her determinations depending on the progress of the patient.
[2020-06-30] MEDS: amLODIPine 5 MG TAB PO SCH (18:21)
[2020-06-30] MEDS: cloNIDine HCL 0.1 MG TAB PO SCH (18:21)
[2020-06-30 21:04] LABS: Glucose,Whole Blood 349 mg/dL (75-99)
[2020-06-30] MEDS: INSULIN DETEMIR (LEVEMIR) 100 UNIT/ML SYR SQ SCH (22:05)
[2020-06-30] MEDS: ATORVASTATIN 80 MG TAB PO SCH (22:05)
[2020-06-30] MEDS: CLOPIDOGREL 75 MG TAB PO SCH (22:05)
[2020-06-30] MEDS: LURASIDONE HCL 60 MG PO SCH (22:08)
[2020-07-01] MEDS: SODIUM CHLORIDE 0.9% 1,000 ML IV SCH ×2 (04:56→17:59)
[2020-07-01 06:35] LABS: Glucose,Whole Blood 129 mg/dL (75-99)
[2020-07-01] MEDS: hydrALAZINE HCL 50 MG TAB PO SCH ×2 (10:43→21:18)
[2020-07-01] MEDS: SUCRALFATE 1 GM TAB PO SCH ×2 (10:43→21:19)
[2020-07-01] MEDS: ISOSORBIDE MONONITRATE ER 60 MG TAB.ER.24H PO SCH (10:44)
[2020-07-01] MEDS: TAMSULOSIN 0.4 MG CAP.ER.24H PO SCH ×2 (10:44→21:20)
[2020-07-01] MEDS: PANTOPRAZOLE 40 MG TABLET PO SCH ×2 (10:44→21:19)
[2020-07-01] MEDS: GABAPENTIN 300 MG CAP PO SCH ×2 (10:44→21:18)
[2020-07-01] MEDS: GLIMEPIRIDE 4 MG TAB PO SCH ×2 (10:44→21:18)
[2020-07-01] MEDS: ASPIRIN 81 MG PO SCH (10:44)
[2020-07-01] MEDS: CITALOPRAM HYDROBROMIDE 20 MG TAB PO SCH ×2 (10:44)
[2020-07-01] MEDS: METOPROLOL SUCCINATE (ER) 50 MG TAB.ER.24H PO SCH (10:45)
[2020-07-01] MEDS: allopurinoL 100 MG TAB PO SCH ×2 (10:45→21:18)
[2020-07-01] MEDS: LINAGLIPTIN 5 MG TABLET PO SCH (10:45)
[2020-07-01] MEDS: FUROSEMIDE 40 MG TAB PO SCH (10:45)
--- NOTE | 2020-07-01 10:53 | P.PN ---
Progress Note - Text Progress Note Date: 07/01/20 The patient received his Plavix last night. He will have his laparoscopic cholecystectomy scheduled for the a.m.
--- NOTE | 2020-07-01 15:54 | P.PN ---
Subjective Progress Note Date: 07/01/20 Mr. Tinajero is a 54-year-old male with a past medical history of coronary artery disease, CVA, diabetes mellitus, GERD, hypertension, hyperlipidemia, [place], CK D stage IV, rheumatoid arthritis coming into the hospital with a chief complaint of right upper quadrant abdominal pain that was radiating to the right side and back. Patient had multiple episodes of nonbloody nonbilious vomiting, he tried to drink Vernors , but could not keep it down and started to throw up again. As the patient's pain was progressively getting worse, he came into the ED. Patient states that he has a history of gallstones and has been following with Dr. Garcia. Patient has history of BPH, as obstructive urinary symptoms that are common for him. Patient denies having any chest pain or difficulty in breathing. History of constipation. Patient denies having any swelling of his extremities. In the ER patient had an abdominal ultrasound showing increased echogenicity throughout the body gallbladder, good related to cholestasis. He also had a CAT scan of the abdomen and pelvis showing increased gallbladder, some gallbladder dysfunction possibility. Patient has admitted for further management and we are consulted for management of his chronic medical conditions. On 07/01/2020 - patient is lying in bed appears to be no acute distress. As per nursing staff report, patient is not going for cholecystectomy today as he received Plavix. His surgery has been scheduled for tomorrow morning. Patient denies having any chest pain or palpitations. He still has right upper quadrant abdominal pain. No nausea or vomiting. No dysuria or hematuria. On reviewing the vitals temperature 98.3, heart rate 72, respiratory rate 18, blood pressure 165 with 74, saturating at 98% on room air. Active Medications Allopurinol (Allopurinol 100 Mg Tab) 100 mg PO BID@1000,2200 [facility] Last Admin: 07/01/20 10:45 Dose: 100 mg Documented by: Amlodipine Besylate (Amlodipine 5 Mg Tab) 5 mg PO DAILY@1800 [facility] Last Admin: 06/30/20 18:21 Dose: 5 mg Documented by: Aspirin (Aspirin 81 Mg) 81 mg PO DAILY@1000 [facility] Last Admin: 07/01/20 10:44 Dose: 81 mg Documented by: Atorvastatin Calcium (Atorvastatin 80 Mg Tab) 80 mg PO HS@2200 [facility] Last Admin: 06/30/20 22:05 Dose: 80 mg Documented by: Citalopram Hydrobromide (Citalopram Hydrobromide 20 Mg Tab) 20 mg PO DAILY@1000 [facility] Last Admin: 07/01/20 10:44 Dose: 20 mg Documented by: Citalopram Hydrobromide (Citalopram Hydrobromide 20 Mg Tab) 40 mg PO DAILY@1000 [facility] Last Admin: 07/01/20 10:44 Dose: 40 mg Documented by: Clonidine (Clonidine Hcl 0.1 Mg Tab) 0.1 mg PO DAILY@1800 [facility] Last Admin: 06/30/20 18:21 Dose: 0.1 mg Documented by: Clopidogrel Bisulfate (Clopidogrel 75 Mg Tab) 75 mg PO HS@2200 [facility] Last Admin: 06/30/20 22:05 Dose: 75 mg Documented by: Ergocalciferol (Ergocalciferol 50,000 Unit Cap) 50,000 unit PO Mo@0900 [facility] Furosemide (Furosemide 40 Mg Tab) 40 mg PO DAILY@1000 [facility] Last Admin: 07/01/20 10:45 Dose: 40 mg Documented by: Gabapentin (Gabapentin 300 Mg Cap) 300 mg PO BID@1000,2200 [facility] Last Admin: 07/01/20 10:44 Dose: 300 mg Documented by: Glimepiride (Glimepiride 4 Mg Tab) 4 mg PO BID@1000,2200 [facility] Last Admin: 07/01/20 10:44 Dose: 4 mg Documented by: Hydralazine HCl (Hydralazine Hcl 50 Mg Tab) 100 mg PO BID@1000,2200 [facility] Last Admin: 07/01/20 10:43 Dose: 100 mg Documented by: Hydromorphone HCl (Hydromorphone 0.5 Mg/0.5 Ml Syringe) 0.5 mg IVP Q3HR PRN PRN Reason: Moderate Pain Last Admin: 06/30/20 18:27 Dose: 0.5 mg Documented by: Sodium Chloride (Saline 0.9%) 1,000 mls @ 75 mls/hr IV .[id number] [facility] Last Admin: 07/01/20 04:56 Dose: Not Given Documented by: Insulin Detemir (Insulin Detemir (Levemir) 100 Unit/Ml Syr) 25 unit SQ HS@2200 [facility] Last Admin: 06/30/20 22:05 Dose: 25 unit Documented by: Isosorbide Mononitrate (Isosorbide Mononitrate Er 60 Mg Tab.Er.24h) 60 mg PO DAILY@1000 [facility] Last Admin: 07/01/20 10:44 Dose: 60 mg Documented by: Linagliptin (Linagliptin 5 Mg Tablet) 5 mg PO DAILY@1000 [facility] Last Admin: 07/01/20 10:45 Dose: 5 mg Documented by: Lorazepam (Lorazepam 2 Mg/Ml Inj) 0.5 mg IV Q6HR PRN PRN Reason: Anxiety Metoprolol Succinate (Metoprolol Succinate (Er) 50 Mg Tab.Er.24h) 50 mg PO DAILY@999 [facility] Last Admin: 07/01/20 10:45 Dose: 50 mg Documented by: Morphine Sulfate (Morphine Sulfate 4 Mg/Ml Syringe) 4 mg IV Q4HR PRN PRN Reason: Severe Pain Naloxone HCl (Naloxone 0.4 Mg/Ml 1 Ml Vial) 0.2 mg IV Q2M PRN PRN Reason: Opioid Reversal Non-Formulary Medication (Lurasidone Hcl [Latuda]) 40 mg PO HS@2199 [facility] Last Admin: 06/30/20 22:08 Dose: Not Given Documented by: Ondansetron HCl (Ondansetron 4 Mg/2 Ml Vial) 4 mg IVP Q8HR PRN PRN Reason: Nausea And Vomiting Pantoprazole Sodium (Pantoprazole 40 Mg Tablet) 40 mg PO BID@999,2199 [facility] Last Admin: 07/01/20 10:44 Dose: 40 mg Documented by: Sucralfate (Sucralfate 1 Gm Tab) 1 gm PO BID@999,2199 [facility] Last Admin: 07/01/20 10:43 Dose: 1 gm Documented by: Tamsulosin HCl (Tamsulosin 0.4 Mg Cap.Er.24h) 0.4 mg PO BID@999,2199 [facility] Last Admin: 07/01/20 10:44 Dose: 0.4 mg Documented by: Objective - Vital Signs Vital signs: Vital Signs Temp 98.3 F 07/01/20 09:00 Pulse 72 07/01/20 09:00 Resp 18 07/01/20 09:00 BP 165/74 07/01/20 09:00 Pulse Ox 96 07/01/20 09:00 Intake & Output 06/30/20 07/01/20 07/01/20 18:59 06:59 18:59 Intake Total 1170 480 Output Total 575 1625 Balance 595 -1145 Intake: Intake, IV Titration 450 Amount Sodium Chloride 0.9% 1, 450 000 ml @ 75 mls/hr IV . [id number] [facility] Rx#:[id number] Oral 720 480 Output: Urine 575 1625 Other: Voiding Method Urinal Urinal Urinal # Voids 1 - Exam PHYSICAL EXAMINATION: GENERAL: The patient is alert and oriented X3, in any acute distress HEENT: No scleral icterus. No conjunctival pallor. Normocephalic, atraumatic. CARDIOVASCULAR: S1 and S2 present. No murmurs, rubs, or gallops. PULMONARY: Chest is clear to auscultation, no wheezing or crackles. ABDOMEN: Tenderness in the right upper quadrant, normal bowel sounds. MUSCULOSKELETAL: No joint swelling or deformity. EXTREMITIES: No cyanosis, clubbing, or pedal edema. NEUROLOGICAL: No focal neurological deficits on gross exam. - Labs CBC & Chem 7: 06/29/20 17:43 06/29/20 17:43 Labs: Abnormal Lab Results - Last 24 Hours (Table) 06/30/20 07/01/20 Range/Units 21:03 06:28 POC Glucose (mg/dL) 349 H 129 H (75-99) mg/dL Assessment and Plan Assessment: ASSESSMENT Intractable abdominal pain- possibly to enlarge gallbladder Nausea and vomiting Leukocytosis CK D stage 3 History of coronary artery disease Diabetes mellitus GERD Hypertension Hyperlipidemia Rheumatoid arthritis Migraine headaches Diabetic neuropathy Enlarge prostate PLAN: Patient has intractable abdominal pain possibly secondary to enlarge gallbladder, being managed by Primary team. Patient has been restarted on his home medications. She is scheduled for cholecystectomy tomorrow morning. Keep patient nothing by mouth tonight. Further determinations depending on the progress of the patient.
[2020-07-01] MEDS: cloNIDine HCL 0.1 MG TAB PO SCH (18:13)
[2020-07-01] MEDS: amLODIPine 5 MG TAB PO SCH (18:13)
[2020-07-01] MEDS: CLOPIDOGREL 75 MG TAB PO SCH (19:34)
[2020-07-01] MEDS ORDERED: ACETAMINOPHEN TAB 325 MG TAB PO PRN (20:27)
[2020-07-01 21:09] LABS: Glucose,Whole Blood 188 mg/dL (75-99)
[2020-07-01] MEDS: LURASIDONE HCL 60 MG PO SCH (21:15)
[2020-07-01] MEDS: ATORVASTATIN 80 MG TAB PO SCH (21:18)
[2020-07-01] MEDS: INSULIN DETEMIR (LEVEMIR) 100 UNIT/ML SYR SQ SCH (21:19)
[2020-07-02] MEDS: SODIUM CHLORIDE 0.9% 1,000 ML IV SCH ×2 (04:21→18:52)
[2020-07-02 06:37] LABS: Glucose,Whole Blood 67 mg/dL (75-99)
[2020-07-02 06:40] LABS: Glucose,Whole Blood 71 mg/dL (75-99)
[2020-07-02] MEDS ORDERED: ERGOCALCIFEROL 50,000 UNIT CAP PO SCH (09:00)
[2020-07-02] MEDS: GLIMEPIRIDE 4 MG TAB PO SCH ×2 (09:04→23:01)
[2020-07-02] MEDS: LINAGLIPTIN 5 MG TABLET PO SCH (09:05)
[2020-07-02] MEDS: FUROSEMIDE 40 MG TAB PO SCH (09:20)
[2020-07-02] MEDS: CITALOPRAM HYDROBROMIDE 20 MG TAB PO SCH ×2 (09:20)
[2020-07-02] MEDS: PANTOPRAZOLE 40 MG TABLET PO SCH ×2 (09:20→23:00)
[2020-07-02] MEDS: allopurinoL 100 MG TAB PO SCH ×2 (09:20→23:06)
[2020-07-02] MEDS: ASPIRIN 81 MG PO SCH (09:20)
[2020-07-02] MEDS: METOPROLOL SUCCINATE (ER) 50 MG TAB.ER.24H PO SCH (09:20)
[2020-07-02] MEDS: GABAPENTIN 300 MG CAP PO SCH ×2 (09:20→23:00)
[2020-07-02] MEDS: ISOSORBIDE MONONITRATE ER 60 MG TAB.ER.24H PO SCH (09:21)
[2020-07-02] MEDS: TAMSULOSIN 0.4 MG CAP.ER.24H PO SCH ×2 (09:21→23:00)
[2020-07-02] MEDS: SUCRALFATE 1 GM TAB PO SCH ×2 (09:21→23:01)
[2020-07-02] MEDS: hydrALAZINE HCL 50 MG TAB PO SCH ×2 (09:21→23:02)
[2020-07-02] MEDS ORDERED: IV FLUID CONTINUATION 600 ML IV ONE (09:33)
[2020-07-02 09:42] LABS: Glucose,Whole Blood 72 mg/dL (75-99)
[2020-07-02] MEDS ORDERED: HEPARIN SODIUM,PORCINE 5,000 UNIT/ML 1 ML VIAL ONE (09:44)
[2020-07-02] MEDS ORDERED: DEXTROSE 50% SYRINGE 50 ML IVP ONE (09:46)
[2020-07-02] MEDS ORDERED: DEXAMETHASONE SOD PHOSPHATE 4 MG/ML 1 ML VIAL IV ONE (09:47)
[2020-07-02] MEDS ORDERED: ONDANSETRON 4 MG/2 ML VIAL IVP ONE (09:47)
[2020-07-02 10:35] LABS: Glucose,Whole Blood 153 mg/dL (75-99)
[2020-07-02] MEDS ORDERED: GLYCOPYRROLATE 0.2 MG/ML 2 ML VIAL ONE (10:37)
[2020-07-02] MEDS ORDERED: NEOSTIGMINE 1 MG/ML 10 ML VIAL ONE (10:37)
[2020-07-02] MEDS ORDERED: MIDAZOLAM 2 MG/2 ML VIAL ONE (10:37)
[2020-07-02] MEDS ORDERED: fentaNYL (PF) 50 MCG/ML 2 ML AMP ONE (10:37)
[2020-07-02] MEDS ORDERED: LIDOCAINE 1% INJ 10MG/ML (20 ML MDV) ONE (10:37)
[2020-07-02] MEDS ORDERED: KETOROLAC 15 MG/ML 1 ML VIAL ONE (10:37)
[2020-07-02] MEDS ORDERED: PROPOFOL 10 MG/ML 20 ML VIAL IV ONE (10:37)
[2020-07-02] MEDS ORDERED: ROCURONIUM 10 MG/ML (10 ML VIAL) IV ONE (10:37)
[2020-07-02] MEDS ORDERED: SODIUM CHLORIDE 0.9% 50 ML with ceFAZolin 2,000 MG IV ONE ×2 (10:51)
[2020-07-02] MEDS ORDERED: BUPIVACAINE (PF) 0.25% 30 ML VIAL SQ ONE (11:02)
[2020-07-02] MEDS ORDERED: LACTATED RINGERS 1,000 ML IV ONE (11:12)
--- NOTE | 2020-07-02 11:35 | P.OP ---
Date of Procedure: 07/02/20 Preoperative Diagnosis: Acute cholecystitis Postoperative Diagnosis: Gangrenous cholecystitis Procedure(s) Performed: Laparoscopic cholecystectomy Anesthesia: JAYA Surgeon: Evan Kuo Estimated Blood Loss (ml): 25 Pathology: other (gAll bladder) Condition: stable Disposition: PACU Description of Procedure: The patient was placed on the operating table. The patient received a general endotracheal tube anesthesia. The patients abdomen was prepped and draped in the usual sterile fashion. Through an infraumbilical stab incision, the fascia of the anterior abdominal wall was grasped with a pair of Kochers and then the Veress needle was placed in the peritoneal cavity. Position of the Veress needle was confirmed with positive drop test. The abdomen was then insufflated. After adequate insufflation, the 10 mm trocar was placed in the peritoneal cavity. Following this the laparoscope was placed in the peritoneal cavity. The patient was placed in the head-up, right side up position and then a 5 mm trocar was placed in the right lateral and right subcostal position under direct visualization. A 8 mm trocar was placed in the epigastric position. The gallbladder had necrosis. The gallbladder was grasped in the fundus and infundibulum. Traction on the gallbladder was placed in the lateral and the cephalad positions. The triangle of Calot was visualized.. The cystic duct was bluntly dissected until the union of the cystic duct and c ommon bile duct was seen. A critical view of safety was achieved. The cystic duct was then divided and sealed with the Harmonic scissors. A PDS Endoloop was then placed throughout the cystic duct stump. The cystic artery divided and sealed with the Harmonic scissors. The gallbladder was then removed from the liver bed using Harmonic scissors. The gallbladder was then extracted through the epigastric port site. Operative field was checked for any bleeding spots and Harmonic scissors was used to coagulate the liver bed. The abdomen was irrigated. The trocars were removed. The skin was closed using interrupted 3- 0 Vicryl suture. Dermabond dressing were applied. The patient tolerated the procedure well.
[2020-07-02] MEDS: HYDROmorphone 0.5 MG/0.5 ML SYRINGE IVP ONE ×2 (11:51→12:03)
--- NOTE | 2020-07-02 17:16 | P.PN ---
Subjective Progress Note Date: 07/02/20 Principal diagnosis: ntractable abdominal pain- possibly to enlarge gallbladder Mr. Tinajero is a 54-year-old male with a past medical history of coronary artery disease, CVA, diabetes mellitus, GERD, hypertension, hyperlipidemia, [place], CK D stage IV, rheumatoid arthritis coming into the hospital with a chief complaint of right upper quadrant abdominal pain that was radiating to the right side and back. Patient had multiple episodes of nonbloody nonbilious vomiting, he tried to drink Vernors , but could not keep it down and started to throw up again. As the patient's pain was progressively getting worse, he came into the ED. Patient states that he has a history of gallstones and has been following with Dr. Garcia. Patient has history of BPH, as obstructive urinary symptoms that are common for him. Patient denies having any chest pain or difficulty in breathing. History of constipation. Patient denies having any swelling of his extremities. In the ER patient had an abdominal ultrasound showing increased echogenicity throughout the body gallbladder, good related to cholestasis. He also had a CAT scan of the abdomen and pelvis showing increased gallbladder, some gallbladder dysfunction possibility. Patient has admitted for further management and we are consulted for management of his chronic medical conditions. On 07/01/2020 - patient is lying in bed appears to be no acute distress. As per nursing staff report, patient is not going for cholecystectomy today as he received Plavix. His surgery has been scheduled for tomorrow morning. Patient denies having any chest pain or palpitations. He still has right upper quadrant abdominal pain. No nausea or vomiting. No dysuria or hematuria. On reviewing the vitals temperature 98.3, heart rate 72, respiratory rate 18, blood pressure 165 with 74, saturating at 98% on room air. On 07/02/2020 - patient just had laparoscopic cholecystectomy done by Dr. Fitzgerald. He states that he is feeling okay. Denies having any nausea or vomiting. On reviewing the vitals temperature 98.5, heart rate 18, respiratory rate 14, blood pressure 142/75 for saturating at 96% on 2 L of nasal cannula. Objective - Vital Signs Vital signs: Vital Signs Temp 97.1 F L 07/02/20 11:40 Pulse 71 07/02/20 12:32 Resp 18 07/02/20 12:32 BP 144/72 07/02/20 12:32 Pulse Ox 92 L 07/02/20 12:32 Intake & Output 07/01/20 07/02/20 07/02/20 18:59 06:59 18:59 Intake Total 1625 1200 Output Total 1925 600 55 Balance -300 -600 1145 Intake: IV 1200 Intake, IV Titration 525 Amount Sodium Chloride 0.9% 1, 525 000 ml @ 75 mls/hr IV . [id number] [facility] Rx#:[id number] Oral 1100 Output: Urine 1925 600 Estimated Blood Loss 55 Other: Voiding Method Urinal Urinal Urinal - Exam PHYSICAL EXAMINATION: GENERAL: The patient is alert and oriented X3, in any acute distress HEENT: No scleral icterus. No conjunctival pallor. Normocephalic, atraumatic. CARDIOVASCULAR: S1 and S2 present. No murmurs, rubs, or gallops. PULMONARY: Chest is clear to auscultation, no wheezing or crackles. ABDOMEN: Patient has a pigtail catheter with sanguinous discharge, dressing in place EXTREMITIES: No cyanosis, clubbing, or pedal edema. NEUROLOGICAL: No focal neurological deficits on gross exam. - Labs CBC & Chem 7: 06/29/20 17:43 06/29/20 17:43 Labs: Abnormal Lab Results - Last 24 Hours (Table) 07/01/20 07/02/20 07/02/20 Range/Units 21:07 06:35 06:38 POC Glucose (mg/dL) 188 H 67 L 71 L (75-99) mg/dL 07/02/20 07/02/20 Range/Units 09:41 10:34 POC Glucose (mg/dL) 72 L 153 H (75-99) mg/dL Assessment and Plan Assessment: ASSESSMENT Intractable abdominal pain- possibly to enlarge gallbladder- status post laparoscopic cholecystectomy done on 07/02/2020 Nausea and vomiting Leukocytosis CK D stage 3 History of coronary artery disease Diabetes mellitus GERD Hypertension Hyperlipidemia Rheumatoid arthritis Migraine headaches Diabetic neuropathy Enlarge prostate PLAN: Status post laparoscopic cholecystectomy done on 07/02/2020. Continue the patient on current medication regimen. Continue with GI DVT prophylaxis. Patient is encouraged to continue on incentive spirometry. Further determ inations depending on the progress of the patient.
[2020-07-02] MEDS: cloNIDine HCL 0.1 MG TAB PO SCH (18:52)
[2020-07-02] MEDS: amLODIPine 5 MG TAB PO SCH (18:52)
[2020-07-02] MEDS: ENOXAPARIN 40 MG/0.4 ML SYRINGE SQ SCH (18:52)
[2020-07-02 22:54] LABS: Glucose,Whole Blood 505 mg/dL (75-99)
[2020-07-02] MEDS: INSULIN DETEMIR (LEVEMIR) 100 UNIT/ML SYR SQ SCH (23:00)
[2020-07-02] MEDS: ATORVASTATIN 80 MG TAB PO SCH (23:00)
[2020-07-02 23:01] LABS: Glucose,Whole Blood 507 mg/dL (75-99)
[2020-07-02] MEDS: CLOPIDOGREL 75 MG TAB PO SCH (23:02)
[2020-07-02] MEDS: LURASIDONE HCL 60 MG PO SCH (23:03)
[2020-07-03 00:48] LABS: Glucose,Whole Blood 403 mg/dL (75-99)
[2020-07-03] MEDS ORDERED: INSULIN ASPART (NovoLOG) 100 UNIT/ML VIAL SQ ONE (01:32)
[2020-07-03] MEDS: SODIUM CHLORIDE 0.9% 1,000 ML IV SCH ×2 (05:53→08:57)
[2020-07-03 06:52] LABS: Glucose,Whole Blood 176 mg/dL (75-99)
[2020-07-03] MEDS: INSULIN ASPART (NovoLOG) 100 UNIT/ML VIAL SQ SCH ×4 (06:56→21:05)
[2020-07-03 08:26] LABS: Basophils % (A) 0 %; Eosinophils # (A) 0.1 k/uL (0-0.7); Eosinophils % (A) 1 %; HCT 21.9 % (39.0-53.0); Lymphocytes # (A) 0.9 k/uL (1.0-4.8); Lymphocytes % (A) 7 %; MCH 29.8 pg (25.0-35.0); MCHC 33.5 g/dL (31.0-37.0); Mean Platelet Volume 6.9; Monocytes # (A) 0.7 k/uL (0-1.0); Monocytes % (A) 5 %; Neutrophils # (A) 11.7 k/uL (1.3-7.7); Neutrophils % (A) 86 %; Platelet Count 178 k/uL (150-450); RBC 2.46 m/uL (4.30-5.90); RDW 13.4 % (11.5-15.5); WBC 13.6 k/uL (3.8-10.6)
[2020-07-03 08:35] LABS: HGB 7.3 gm/dL (13.0-17.5)
[2020-07-03 08:44] LABS: Calcium 8.1 mg/dL (8.4-10.2); Potassium 4.7 mmol/L (3.5-5.1)
[2020-07-03] MEDS: allopurinoL 100 MG TAB PO SCH ×2 (08:53→21:06)
[2020-07-03] MEDS: ASPIRIN 81 MG PO SCH (08:53)
[2020-07-03] MEDS: FUROSEMIDE 40 MG TAB PO SCH (08:54)
[2020-07-03] MEDS: GABAPENTIN 300 MG CAP PO SCH ×2 (08:54→21:05)
[2020-07-03] MEDS: CITALOPRAM HYDROBROMIDE 20 MG TAB PO SCH ×2 (08:54)
[2020-07-03] MEDS: GLIMEPIRIDE 4 MG TAB PO SCH ×2 (08:55→21:59)
[2020-07-03] MEDS: hydrALAZINE HCL 50 MG TAB PO SCH ×2 (08:55→21:06)
[2020-07-03] MEDS: ISOSORBIDE MONONITRATE ER 60 MG TAB.ER.24H PO SCH (08:56)
[2020-07-03] MEDS: METOPROLOL SUCCINATE (ER) 50 MG TAB.ER.24H PO SCH (08:56)
[2020-07-03] MEDS: LINAGLIPTIN 5 MG TABLET PO SCH (08:56)
[2020-07-03] MEDS: PANTOPRAZOLE 40 MG TABLET PO SCH ×2 (08:57→21:05)
[2020-07-03] MEDS: SUCRALFATE 1 GM TAB PO SCH ×2 (08:57→21:07)
[2020-07-03] MEDS: TAMSULOSIN 0.4 MG CAP.ER.24H PO SCH ×2 (08:57→21:06)
[2020-07-03] MEDS: PIPERACILLIN-TAZOBACTAM 3.375 GM in SODIUM CHLORIDE 0.9% 100 ML IVPB SCH ×2 (10:29→17:57)
[2020-07-03] MEDS: ENOXAPARIN 40 MG/0.4 ML SYRINGE SQ SCH (10:29)
[2020-07-03 11:42] LABS: Glucose,Whole Blood 146 mg/dL (75-99)
--- NOTE | 2020-07-03 12:33 | P.PN ---
Subjective Progress Note Date: 07/03/20 CHIEF COMPLAINT: Gangrenous cholecystitis HISTORY OF PRESENT ILLNESS: Patient is status post laparoscopic cholecystectomy. Postop day #1. Patient did have some bleeding from his incision site and RENU drain incision yesterday. This has now improved. Patient does report abdominal pain that is controlled. Denies any nausea or vomiting. Tolerating regular diet. He did have a temp of 99. WBC 13.6 hemoglobin 7.3 creatinine 2.27 PHYSICAL EXAM: VITAL SIGNS: Reviewed. GENERAL: Well-developed in no acute distress. HEENT: No sclera icterus. Extraocular movements grossly intact. Moist buccal mucosa. Head is atraumatic, normocephalic. ABDOMEN: Soft. Mildly distended. Dressing at incision sites are clean dry and intact. Dressing her on RENU drain clean dry and intact. RENU drain sanguinous fluid NEUROLOGIC: Alert and oriented. Cranial nerves II through XII grossly intact. ASSESSMENT: 1. Gangrenous cholecystitis status post laparoscopic cholecystectomy PLAN: -Continue antibiotics -Continue pain medication as needed -Encouraged patient to use incentive spirometer and to increase activity -Repeat labs in a.m. -Possible discharge tomorrow Physician [employer] Outreach Specialist note has been reviewed by physician. Signing provider agrees with the documented findings, assessment, and plan of care. Objective - Vital Signs Vital signs: Vital Signs Temp 98 F 07/03/20 08:08 Pulse 78 07/03/20 08:08 Resp 16 07/03/20 08:08 BP 157/76 07/03/20 08:08 Pulse Ox 98 07/03/20 08:08 Intake & Output 07/02/20 07/03/20 07/03/20 18:59 06:59 18:59 Intake Total 1725 950 500 Output Total 555 130 700 Balance 1170 820 -200 Intake: IV 1200 Intake, IV Titration 525 300 Amount Sodium Chloride 0.9% 1, 525 300 000 ml @ 75 mls/hr IV . [id number] [facility] Rx#:[id number] Oral 950 200 Output: Drainage 5 Abdomen 5 Urine 500 125 700 Estimated Blood Loss 55 Other: Voiding Method Urinal Urinal Urinal # Voids 4 2 - Labs CBC & Chem 7: 07/03/20 07:30 07/03/20 07:30 Labs: Abnormal Lab Results - Last 24 Hours (Table) 07/02/20 07/02/20 07/03/20 Range/Units 22:52 22:54 00:47 WBC (3.8-10.6) k/uL RBC (4.30-5.90) m/uL Hgb (13.0-17.5) gm/dL Hct (39.0-53.0) % Neutrophils # (1.3-7.7) k/uL Lymphocytes # (1.0-4.8) k/uL Sodium (137-145) mmol/L BUN (9-20) mg/dL Creatinine (0.66-1.25) mg/dL Glucose (74-99) mg/dL POC Glucose (mg/dL) 505 H 507 H 403 H (75-99) mg/dL Calcium (8.4-10.2) mg/dL 07/03/20 07/03/20 07/03/20 Range/Units 06:51 07:30 07:30 WBC 13.6 H (3.8-10.6) k/uL RBC 2.46 L (4.30-5.90) m/uL Hgb 7.3 L D (13.0-17.5) gm/dL Hct 21.9 L (39.0-53.0) % Neutrophils # 11.7 H (1.3-7.7) k/uL Lymphocytes # 0.9 L (1.0-4.8) k/uL Sodium 135 L (137-145) mmol/L BUN 38 H (9-20) mg/dL Creatinine 2.27 H (0.66-1.25) mg/dL Glucose 147 H (74-99) mg/dL POC Glucose (mg/dL) 176 H (75-99) mg/dL Calcium 8.1 L (8.4-10.2) mg/dL 07/03/20 Range/Units 11:41 WBC (3.8-10.6) k/uL RBC (4.30-5.90) m/uL Hgb (13.0-17.5) gm/dL Hct (39.0-53.0) % Neutrophils # (1.3-7.7) k/uL Lymphocytes # (1.0-4.8) k/uL Sodium (137-145) mmol/L BUN (9-20) mg/dL Creatinine (0.66-1.25) mg/dL Glucose (74-99) mg/dL POC Glucose (mg/dL) 146 H (75-99) mg/dL Calcium (8.4-10.2) mg/dL
--- NOTE | 2020-07-03 13:45 | P.PN ---
Subjective From the records Mr. Tinajero is a 54-year-old male with a past medical history of coronary artery disease, CVA, diabetes mellitus, GERD, hypertension, hyperlipidemia, [place], CK D stage IV, rheumatoid arthritis coming into the hospital with a chief complaint of right upper quadrant abdominal pain that was radiating to the right side and back. Patient had multiple episodes of nonbloody nonbilious vomiting, he tried to drink Vernors , but could not keep it down and started to throw up again. As the patient's pain was progressively getting worse, he came into the ED. Patient states that he has a history of gallstones and has been following with Sulaiman Garcia. Patient has history of BPH, as obstructive urinary symptoms that are common for him. Patient denies having any chest pain or difficulty in breathing. History of constipation. Patient denies having any swelling of his extremities. In the ER patient had an abdominal ultrasound showing increased echogenicity throughout the body gallbladder, good related to cholestasis. He also had a CAT scan of the abdomen and pelvis showing increased gallbladder, some gallbladder dysfunction possibility. Patient has admitted for further management and we are consulted for management of his chronic medical conditions. Subjective: This is the first 19 care of the patient 07/03/2020 This is a pleasant 54 years old male with multiple medical problems as below who presents with right upper quadrant pain and tenderness and gallbladder disease. He is status post laparoscopic cholecystectomy done by Dr. Fitzgerald. He states that he is feeling okay. Denies having any nausea or vomiting. He states that he has chronic constipation. He is aware that he has chronic kidney disease stage 3-4 and usually he follows up with Dr. Gomez. His PCP is Dr. Goel. He is hemodynamically stable. Labs showed leukocytosis of 13.6 K which is improving. Zosyn has been added today by surgery primary team which I agree with. He has a drop in hemoglobin mostly secondary to blood loss anemia from surgery a nd currently hemoglobin 7.3 down from 10.7. His creatinine looks close to baseline at 2.2. Rest of labs are stable Patient wants to see physical therapy because of his chronic left hemiparesis secondary to a stroke about 2 years ago per patient Objective - Vital Signs Vital signs: Vital Signs Temp 98 F 07/03/20 08:08 Pulse 78 07/03/20 08:08 Resp 16 07/03/20 08:08 BP 157/76 07/03/20 08:08 Pulse Ox 98 07/03/20 08:08 Intake & Output 07/02/20 07/03/20 07/03/20 18:59 06:59 18:59 Intake Total 1725 950 500 Output Total 555 130 700 Balance 1170 820 -200 Intake: IV 1200 Intake, IV Titration 525 300 Amount Sodium Chloride 0.9% 1, 525 300 000 ml @ 75 mls/hr IV . [id number] [facility] Rx#:[id number] Oral 950 200 Output: Drainage 5 Abdomen 5 Urine 500 125 700 Estimated Blood Loss 55 Other: Voiding Method Urinal Urinal Urinal # Voids 4 2 - Exam GENERAL: The patient is alert and oriented x3, not in any acute distress. Well developed, well nourished. HEENT: Pupils are round and equally reacting to light. EOMI. No scleral icterus. No conjunctival pallor. Normocephalic, atraumatic. No pharyngeal erythema. No thyromegaly. CARDIOVASCULAR: S1 and S2 present. No murmurs, rubs, or gallops. PULMONARY: Chest is clear to auscultation, no wheezing or crackles. -ABDOMEN: Soft, nontender, nondistended, normoactive bowel sounds. No palpable organomegaly. There are 3 puncture wounds were closed and healing in the abdomen MUSCULOSKELETAL: No joint swelling or deformity. EXTREMITIES: No cyanosis, clubbing, or pedal edema. NEUROLOGICAL: Gross neurological examination did not reveal any focal deficits. SKIN: No rashes. no petechiae. - Labs CBC & Chem 7: 07/03/20 07:30 07/03/20 07:30 Labs: Abnormal Lab Results - Last 24 Hours (Table) 07/02/20 07/02/20 07/03/20 Range/Units 22:52 22:54 00:47 WBC (3.8-10.6) k/uL RBC (4.30-5.90) m/uL Hgb (13.0-17.5) gm/dL Hct (39.0-53.0) % Neutrophils # (1.3-7.7) k/uL Lymphocytes # (1.0-4.8) k/uL Sodium (137-145) mmol/L BUN (9-20) mg/dL Creatinine (0.66-1.25) mg/dL Glucose (74-99) mg/dL POC Glucose (mg/dL) 505 H 507 H 403 H (75-99) mg/dL Calcium (8.4-10.2) mg/dL 07/03/20 07/03/20 07/03/20 Range/Units 06:51 07:30 07:30 WBC 13.6 H (3.8-10.6) k/uL RBC 2.46 L (4.30-5.90) m/uL Hgb 7.3 L D (13.0-17.5) gm/dL Hct 21.9 L (39.0-53.0) % Neutrophils # 11.7 H (1.3-7.7) k/uL Lymphocytes # 0.9 L (1.0-4.8) k/uL Sodium 135 L (137-145) mmol/L BUN 38 H (9-20) mg/dL Creatinine 2.27 H (0.66-1.25) mg/dL Glucose 147 H (74-99) mg/dL POC Glucose (mg/dL) 176 H (75-99) mg/dL Calcium 8.1 L (8.4-10.2) mg/dL 07/03/20 Range/Units 11:41 WBC (3.8-10.6) k/uL RBC (4.30-5.90) m/uL Hgb (13.0-17.5) gm/dL Hct (39.0-53.0) % Neutrophils # (1.3-7.7) k/uL Lymphocytes # (1.0-4.8) k/uL Sodium (137-145) mmol/L BUN (9-20) mg/dL Creatinine (0.66-1.25) mg/dL Glucose (74-99) mg/dL POC Glucose (mg/dL) 146 H (75-99) mg/dL Calcium (8.4-10.2) mg/dL Assessment and Plan Assessment: enlarged gallbladder- status post laparoscopic cholecystectomy done on 07/02/2020 Leukocytosis CK D stage 3-4 History of coronary artery disease Diabetes mellitus GERD Hypertension Hyperlipidemia Rheumatoid arthritis Migraine headaches Diabetic neuropathy Enlarge prostate Plan: This is a pleasant 54 years old male who presents with gallbladder disease status post lap cholecystectomy by surgery primary team. Continue with Zosyn for leukocytosis. Continue gentle hydration. Start iron pills Follow up recommendation by surgery primary team Labs and medication were reviewed.. Continue same treatment. Continue with symptomatic treatment. Resume home medication. Monitor lytes and vitals. DVT and GI prophylaxis. Further recommendationsas per clinical course of the patient DVT prophylaxis: Subcutaneous heparin GI Prophylaxis: Ppi PT/OT: Pending
[2020-07-03] MEDS: FERROUS SULFATE 325 MG TAB PO SCH ×2 (16:31→18:08)
[2020-07-03 16:34] LABS: Glucose,Whole Blood 98 mg/dL (75-99)
[2020-07-03] MEDS: amLODIPine 5 MG TAB PO SCH (17:57)
[2020-07-03] MEDS: cloNIDine HCL 0.1 MG TAB PO SCH (17:57)
[2020-07-03 20:52] LABS: Glucose,Whole Blood 161 mg/dL (75-99)
[2020-07-03] MEDS: CLOPIDOGREL 75 MG TAB PO SCH (21:06)
[2020-07-03] MEDS: ATORVASTATIN 80 MG TAB PO SCH (21:06)
[2020-07-03] MEDS: LURASIDONE HCL 60 MG PO SCH (21:55)
[2020-07-03] MEDS: INSULIN DETEMIR (LEVEMIR) 100 UNIT/ML SYR SQ SCH (21:59)
[2020-07-04] MEDS: PIPERACILLIN-TAZOBACTAM 3.375 GM in SODIUM CHLORIDE 0.9% 100 ML IVPB SCH ×3 (01:34→17:14)
[2020-07-04 06:35] LABS: Glucose,Whole Blood 82 mg/dL (75-99)
[2020-07-04] MEDS: INSULIN ASPART (NovoLOG) 100 UNIT/ML VIAL SQ SCH ×4 (06:37→21:16)
[2020-07-04] MEDS: FERROUS SULFATE 325 MG TAB PO SCH ×2 (06:45→17:14)
[2020-07-04 08:22] LABS: Basophils % (A) 0 %; Eosinophils # (A) 0.3 k/uL (0-0.7); Eosinophils % (A) 3 %; HGB 7.4 gm/dL (13.0-17.5); Lymphocytes # (A) 0.9 k/uL (1.0-4.8); Lymphocytes % (A) 10 %; MCH 29.6 pg (25.0-35.0); MCHC 33.5 g/dL (31.0-37.0); MCV 88.3 fL (80.0-100.0); Mean Platelet Volume 6.8; Monocytes # (A) 0.7 k/uL (0-1.0); Monocytes % (A) 8 %; Neutrophils # (A) 6.9 k/uL (1.3-7.7); Neutrophils % (A) 77 %; Platelet Count 177 k/uL (150-450); RBC 2.49 m/uL (4.30-5.90); RDW 13.6 % (11.5-15.5); WBC 8.9 k/uL (3.8-10.6)
[2020-07-04 08:33] LABS: Calcium 8.5 mg/dL (8.4-10.2); Potassium 4.2 mmol/L (3.5-5.1)
[2020-07-04] MEDS: TAMSULOSIN 0.4 MG CAP.ER.24H PO SCH ×2 (10:24→21:15)
[2020-07-04] MEDS: GABAPENTIN 300 MG CAP PO SCH ×2 (10:24→21:15)
[2020-07-04] MEDS: METOPROLOL SUCCINATE (ER) 50 MG TAB.ER.24H PO SCH (10:24)
[2020-07-04] MEDS: FUROSEMIDE 40 MG TAB PO SCH (10:24)
[2020-07-04] MEDS: PANTOPRAZOLE 40 MG TABLET PO SCH ×2 (10:24→21:15)
[2020-07-04] MEDS: CITALOPRAM HYDROBROMIDE 20 MG TAB PO SCH ×2 (10:24→10:56)
[2020-07-04] MEDS: allopurinoL 100 MG TAB PO SCH ×2 (10:24→21:15)
[2020-07-04] MEDS: ENOXAPARIN 40 MG/0.4 ML SYRINGE SQ SCH (10:25)
[2020-07-04] MEDS: SUCRALFATE 1 GM TAB PO SCH ×2 (10:25→21:15)
[2020-07-04] MEDS: hydrALAZINE HCL 50 MG TAB PO SCH ×2 (10:25→21:15)
[2020-07-04] MEDS: ASPIRIN 81 MG PO SCH (10:25)
[2020-07-04] MEDS: GLIMEPIRIDE 4 MG TAB PO SCH ×2 (10:25→21:15)
[2020-07-04] MEDS: LINAGLIPTIN 5 MG TABLET PO SCH (10:25)
[2020-07-04] MEDS: ISOSORBIDE MONONITRATE ER 60 MG TAB.ER.24H PO SCH (10:25)
[2020-07-04] MEDS: SODIUM CHLORIDE 0.9% 1,000 ML IV SCH ×2 (10:26→21:16)
[2020-07-04 11:40] LABS: Glucose,Whole Blood 122 mg/dL (75-99)
--- NOTE | 2020-07-04 11:41 | P.PN ---
Subjective From the records Mr. Tinajero is a 54-year-old male with a past medical history of coronary artery disease, CVA, diabetes mellitus, GERD, hypertension, hyperlipidemia, ID, CK D stage IV, rheumatoid arthritis coming into the hospital with a chief complaint of right upper quadrant abdominal pain that was radiating to the right side and back. Patient had multiple episodes of nonbloody nonbilious vomiting, he tried to drink Vernors , but could not keep it down and started to throw up again. As the patient's pain was progressively getting worse, he came into the ED. Patient states that he has a history of gallstones and has been following with Sulaiman Garcia. Patient has history of BPH, as obstructive urinary symptoms that are common for him. Patient denies having any chest pain or difficulty in breathing. History of constipation. Patient denies having any swelling of his extremities. In the ER patient had an abdominal ultrasound showing increased echogenicity throughout the body gallbladder, good related to cholestasis. He also had a CAT scan of the abdomen and pelvis showing increased gallbladder, some gallbladder dysfunction possibility. Patient has admitted for further management and we are consulted for management of his chronic medical conditions. Subjective: This is the first 19 care of the patient 07/03/2020 This is a pleasant 54 years old male with multiple medical problems as below who presents with right upper quadrant pain and tenderness and gallbladder disease. He is status post laparoscopic cholecystectomy done by Dr. Fitzgerald. He states that he is feeling okay. Denies having any nausea or vomiting. He states that he has chronic constipation. He is aware that he has chronic kidney disease stage 3-4 and usually he follows up with Dr. Gomez. His PCP is Dr. Goel. He is hemodynamically stable. Labs showed leukocytosis of 13.6 K which is improving. Zosyn has been added today by surgery primary team which I agree with. He has a drop in hemoglobin mostly secondary to blood loss anemia from surgery a nd currently hemoglobin 7.3 down from 10.7. His creatinine looks close to baseline at 2.2. Rest of labs are stable Patient wants to see physical therapy because of his chronic left hemiparesis secondary to a stroke about 2 years ago per patient 07/04/2020 Patient is awake and alert he was complaining of from nausea and he vomited once this morning, but abdominal pain is improving. Patient did not have bowel movement but is passing gases He is hemodynamically stable, blood pressure is slightly on the high side to 167/74 Labs reviewed, WBC is back to normal at 8.9, hemoglobin is stable at 7.4. And creatinine is lower today at 1.8 Physical therapy evaluation is a still pending Objective - Vital Signs Vital signs: Vital Signs Temp 98.3 F 07/04/20 08:27 Pulse 80 07/04/20 08:27 Resp 16 07/04/20 08:27 BP 167/74 07/04/20 08:27 Pulse Ox 91 L 07/04/20 08:27 Intake & Output 07/03/20 07/04/20 07/04/20 18:59 06:59 18:59 Intake Total 500 425 Output Total 1500 2400 500 Balance -1000 -2400 -75 Intake: Intake, IV Titration 300 325 Amount Sodium Chloride 0.9% 1, 300 325 000 ml @ 75 mls/hr IV . [id number] [facility] Rx#:[id number] Oral 200 100 Output: Urine 1500 2400 500 Other: Voiding Method Urinal Urinal Urinal # Voids 2 3 - Exam GENERAL: The patient is alert and oriented x3, not in any acute distress. Well developed, well nourished. HEENT: Pupils are round and equally reacting to light. EOMI. No scleral icterus. No conjunctival pallor. Normocephalic, atraumatic. No pharyngeal erythema. No th yromegaly. CARDIOVASCULAR: S1 and S2 present. No murmurs, rubs, or gallops. PULMONARY: Chest is clear to auscultation, no wheezing or crackles. -ABDOMEN: Soft, nontender, nondistended, normoactive bowel sounds. No palpable organomegaly. There are 3 puncture wounds were closed and healing in the abdomen MUSCULOSKELETAL: No joint swelling or deformity. EXTREMITIES: No cyanosis, clubbing, or pedal edema. NEUROLOGICAL: Gross neurological examination did not reveal any focal deficits. SKIN: No rashes. no petechiae. - Labs CBC & Chem 7: 07/04/20 08:00 07/04/20 08:00 Labs: Abnormal Lab Results - Last 24 Hours (Table) 07/03/20 07/03/20 07/04/20 Range/Units 11:41 20:50 08:00 RBC 2.49 L (4.30-5.90) m/uL Hgb 7.4 L (13.0-17.5) gm/dL Hct 22.0 L (39.0-53.0) % Lymphocytes # 0.9 L (1.0-4.8) k/uL Chloride (98-107) mmol/L BUN (9-20) mg/dL Creatinine (0.66-1.25) mg/dL POC Glucose (mg/dL) 146 H 161 H (75-99) mg/dL 07/04/20 Range/Units 08:00 RBC (4.30-5.90) m/uL Hgb (13.0-17.5) gm/dL Hct (39.0-53.0) % Lymphocytes # (1.0-4.8) k/uL Chloride 108 H (98-107) mmol/L BUN 32 H (9-20) mg/dL Creatinine 1.88 H (0.66-1.25) mg/dL POC Glucose (mg/dL) (75-99) mg/dL Assessment and Plan Assessment: enlarged gallbladder- status post laparoscopic cholecystectomy done on 07/02/2020. Pathology report showing acute gangrenous cholecystitis Leukocytosis CK D stage 3-4 History of coronary artery disease Diabetes mellitus GERD Hypertension Hyperlipidemia Rheumatoid arthritis Migraine headaches Diabetic neuropathy Enlarge prostate Plan: This is a pleasant 54 years old male who presents with gallbladder disease status post lap cholecystectomy by surgery primary team. Continue with Zosyn for leukocytosis. Continue gentle hydration. Start iron pills Follow up recommendation by surgery primary team Labs and medication were reviewed.. Continue same treatment. Continue with symptomatic treatment. Resume home medication. Monitor lytes and vitals. DVT and GI prophylaxis. Further recommendationsas per clinical course of the patient DVT prophylaxis: Subcutaneous heparin GI Prophylaxis: Ppi PT/OT: Pending Thank you for consulting us
--- NOTE | 2020-07-04 13:52 | P.PN ---
Subjective Progress Note Date: 07/04/20 CHIEF COMPLAINT: Gangrenous cholecystitis HISTORY OF PRESENT ILLNESS: Patient is status post laparoscopic cholecystectomy. Postop day #2. Patient's bleeding from incision site and RENU drain has improved. He did have one episode of vomiting this morning. Per nursing staff patient is mostly laying in bed. He is not ambulating very much. Patient does feel weak. He is passing gas. No bowel movement. Currently on a regular diet. He does report some abdominal pain. He is not taking the [place]. He does not like the way it makes him feel. He has Tylenol on board if needed. Afebrile. WBC 8.9 hemoglobin 7.4 PHYSICAL EXAM: VITAL SIGNS: Reviewed. GENERAL: Well-developed in no acute distress. HEENT: No sclera icterus. Extraocular movements grossly intact. Moist buccal mucosa. Head is atraumatic, normocephalic. ABDOMEN: Soft. Mildly distended. Dressing at incision sites are clean dry and intact. Dressing her on RENU drain clean dry and intact. RENU drain sanguinous fluid NEUROLOGIC: Alert and oriented. Cranial nerves II through XII grossly intact. ASSESSMENT: 1. Gangrenous cholecystitis status post laparoscopic cholecystectomy PLAN: -Continue antibiotics -Continue pain medication as needed -Encouraged patient to use incentive spirometer and to increase activity Physician Automotive Electrician note has been reviewed by physician. Signing provider agrees with the documented findings, assessment, and plan of care. Objective - Vital Signs Vital signs: Vital Signs Temp 98.3 F 07/04/20 08:27 Pulse 80 07/04/20 08:27 Resp 16 07/04/20 08:27 BP 167/74 07/04/20 08:27 Pulse Ox 91 L 07/04/20 08:27 Intake & Output 07/03/20 07/04/20 07/04/20 18:59 06:59 18:59 Intake Total 500 425 Output Total 1500 2400 500 Balance -1000 -2400 -75 Intake: Intake, IV Titration 300 325 Amount Sodium Chloride 0.9% 1, 300 325 000 ml @ 75 mls/hr IV . [id number] [facility] Rx#:[id number] Oral 200 100 Output: Urine 1500 2400 500 Other: Voiding Method Urinal Urinal Urinal # Voids 2 3 - Labs CBC & Chem 7: 07/04/20 08:00 07/04/20 08:00 Labs: Abnormal Lab Results - Last 24 Hours (Table) 07/03/20 07/04/20 07/04/20 Range/Units 20:50 08:00 08:00 RBC 2.49 L (4.30-5.90) m/uL Hgb 7.4 L (13.0-17.5) gm/dL Hct 22.0 L (39.0-53.0) % Lymphocytes # 0.9 L (1.0-4.8) k/uL Chloride 108 H (98-107) mmol/L BUN 32 H (9-20) mg/dL Creatinine 1.88 H (0.66-1.25) mg/dL POC Glucose (mg/dL) 161 H (75-99) mg/dL 07/04/20 Range/Units 11:39 RBC (4.30-5.90) m/uL Hgb (13.0-17.5) gm/dL Hct (39.0-53.0) % Lymphocytes # (1.0-4.8) k/uL Chloride (98-107) mmol/L BUN (9-20) mg/dL Creatinine (0.66-1.25) mg/dL POC Glucose (mg/dL) 122 H (75-99) mg/dL
--- NOTE | 2020-07-04 16:24 | CDI ---
Documentation Clarification Form Date: 07/04/2020 04:02:42 PM From: Cordelia Melara RN CCDS Admit Date: 07/02/2020 07:13:00 AM Patient Name: Kashmir Tinajero Visit Number: [id number] Discharge Date: ATTENTION: The Clinical Documentation Specialists (CDI) and [facility] Coding Staff appreciate your assistance in clarifying documentation. Please respond to the clarification below the line at the bottom and electronically sign. The CDI & [facility] Coding staff will review the response and follow-up if needed. Please note: Queries are made part of the Legal Health Record. If you have any questions, please contact the author of this message via ITS. Dr. Evan Kuo He has a drop in hemoglobin mostly secondary to blood loss anemia from surgery and currently Hemoglobin 7.3 down from 10.7. Internal Medicine 07/03 and 07/04 progress notes. Patients Admitting Diagnosis: Acute cholecystitis Post-Operative Diagnosis: Gangrenous cholecystitis Procedure performed: Laparoscopic Cholecystectomy History/Risk Factors: 54-year-old male presents to the ED with abdominal pain. Medical history: CAD; CVA; DM; HLD; HTN and AK Clinical Indicators: Home Medications: Plavix Daily; Aspirin Daily; Labs: Hgb - 06/29 10.7; Hgb - 07/03 7.3; Hgb - 7.4 Per surgery note 07/02: ESBL 25ml Treatment: Ferrous sulfate 325mg PO BID W/Meals JAD In order to accurately reflect this patients severity of illness, please clarify if the blood loss anemia from surgery: -is a complication of surgical procedure -is an expected outcome of the surgical procedure -is related to co-morbid condition(s) of -Other please specify -Unable to determine (Last Revision: July 2019) Is expected outcome of the surgical procedure MTDD
[2020-07-04 16:31] LABS: Glucose,Whole Blood 236 mg/dL (75-99)
[2020-07-04] MEDS: cloNIDine HCL 0.1 MG TAB PO SCH (17:14)
[2020-07-04] MEDS: amLODIPine 5 MG TAB PO SCH (17:14)
[2020-07-04 20:16] LABS: Glucose,Whole Blood 222 mg/dL (75-99)
[2020-07-04] MEDS: LURASIDONE HCL 60 MG PO SCH (20:55)
[2020-07-04] MEDS: ATORVASTATIN 80 MG TAB PO SCH (21:15)
[2020-07-04] MEDS: CLOPIDOGREL 75 MG TAB PO SCH (21:15)
[2020-07-04] MEDS: INSULIN DETEMIR (LEVEMIR) 100 UNIT/ML SYR SQ SCH (21:16)
[2020-07-05] MEDS: PIPERACILLIN-TAZOBACTAM 3.375 GM in SODIUM CHLORIDE 0.9% 100 ML IVPB SCH ×2 (01:11→10:36)
[2020-07-05 06:57] LABS: Glucose,Whole Blood 64 mg/dL (75-99)
[2020-07-05 07:27] LABS: Glucose,Whole Blood 97 mg/dL (75-99)
[2020-07-05] MEDS: ENOXAPARIN 40 MG/0.4 ML SYRINGE SQ SCH (08:21)
[2020-07-05] MEDS: METOPROLOL SUCCINATE (ER) 50 MG TAB.ER.24H PO SCH (08:21)
[2020-07-05] MEDS: GLIMEPIRIDE 4 MG TAB PO SCH (08:22)
[2020-07-05] MEDS: GABAPENTIN 300 MG CAP PO SCH (08:22)
[2020-07-05] MEDS: allopurinoL 100 MG TAB PO SCH (08:22)
[2020-07-05] MEDS: ISOSORBIDE MONONITRATE ER 60 MG TAB.ER.24H PO SCH (08:23)
[2020-07-05] MEDS: LINAGLIPTIN 5 MG TABLET PO SCH (08:23)
[2020-07-05] MEDS: CITALOPRAM HYDROBROMIDE 20 MG TAB PO SCH ×2 (08:23→09:51)
[2020-07-05] MEDS: FUROSEMIDE 40 MG TAB PO SCH (08:23)
[2020-07-05] MEDS: SUCRALFATE 1 GM TAB PO SCH (08:24)
[2020-07-05] MEDS: PANTOPRAZOLE 40 MG TABLET PO SCH (08:24)
[2020-07-05] MEDS: ASPIRIN 81 MG PO SCH (08:24)
[2020-07-05] MEDS: FERROUS SULFATE 325 MG TAB PO SCH (08:24)
[2020-07-05] MEDS: TAMSULOSIN 0.4 MG CAP.ER.24H PO SCH (08:24)
[2020-07-05] MEDS: hydrALAZINE HCL 50 MG TAB PO SCH (08:25)
[2020-07-05] MEDS: INSULIN ASPART (NovoLOG) 100 UNIT/ML VIAL SQ SCH ×2 (09:33→14:00)
--- NOTE | 2020-07-05 11:33 | P.PN ---
Subjective From the records Mr. Tinajero is a 54-year-old male with a past medical history of coronary artery disease, CVA, diabetes mellitus, GERD, hypertension, hyperlipidemia, UT, CK D stage IV, rheumatoid arthritis coming into the hospital with a chief complaint of right upper quadrant abdominal pain that was radiating to the right side and back. Patient had multiple episodes of nonbloody nonbilious vomiting, he tried to drink Vernors , but could not keep it down and started to throw up again. As the patient's pain was progressively getting worse, he came into the ED. Patient states that he has a history of gallstones and has been following with Sulaiman Garcia. Patient has history of BPH, as obstructive urinary symptoms that are common for him. Patient denies having any chest pain or difficulty in breathing. History of constipation. Patient denies having any swelling of his extremities. In the ER patient had an abdominal ultrasound showing increased echogenicity throughout the body gallbladder, good related to cholestasis. He also had a CAT scan of the abdomen and pelvis showing increased gallbladder, some gallbladder dysfunction possibility. Patient has admitted for further management and we are consulted for management of his chronic medical conditions. Subjective: This is the first 19 care of the patient 07/03/2020 This is a pleasant 54 years old male with multiple medical problems as below who presents with right upper quadrant pain and tenderness and gallbladder disease. He is status post laparoscopic cholecystectomy done by Dr. Fitzgerald. He states that he is feeling okay. Denies having any nausea or vomiting. He states that he has chronic constipation. He is aware that he has chronic kidney disease stage 3-4 and usually he follows up with Dr. Gomez. His PCP is Dr. Goel. He is hemodynamically stable. Labs showed leukocytosis of 13.6 K which is improving. Zosyn has been added today by surgery primary team which I agree with. He has a drop in hemoglobin mostly secondary to blood loss anemia from surgery a nd currently hemoglobin 7.3 down from 10.7. His creatinine looks close to baseline at 2.2. Rest of labs are stable Patient wants to see physical therapy because of his chronic left hemiparesis secondary to a stroke about 2 years ago per patient 07/04/2020 Patient is awake and alert he was complaining of from nausea and he vomited once this morning, but abdominal pain is improving. Patient did not have bowel movement but is passing gases He is hemodynamically stable, blood pressure is slightly on the high side to 167/74 Labs reviewed, WBC is back to normal at 8.9, hemoglobin is stable at 7.4. And creatinine is lower today at 1.8 Physical therapy evaluation is a still pending 07/05/2020 Patient is awake and alert today looks more comfortable, he was sitting on the chair at bedside with no specific complaints, he is tolerating diet well with no nausea or vomiting which was stopped. His still have some expected right upper quadrant abdominal pain and tenderness at the surgical site he has some serosanguineous discharge and the RENU drain. Patient had good normal bowel movement yesterday. Patient is working with no difficulty. Physical therapy team recommended subacute rehab versus home health care, I discussed with the patient he wants to go home with home health care. Blood pressure on the high side Norvasc was increased to 10 mg daily. His sugar was low in the morning so counseled patient to switch his 25 units of Levemir from bedtime to morning dose and he agrees. Currently patient is on Zosyn and can be switched to oral antibiotics like Augmentin upon discharge. Objective - Vital Signs Vital signs: Vital Signs Temp 97.8 F 07/05/20 07:47 Pulse 79 07/05/20 07:47 Resp 18 07/05/20 07:47 BP 176/77 07/05/20 07:47 Pulse Ox 97 07/05/20 07:47 Intake & Output 07/04/20 07/05/20 07/05/20 18:59 06:59 18:59 Intake Total 425 Output Total 1055 340 Balance -630 -340 Intake: Intake, IV Titration 325 Amount Sodium Chloride 0.9% 1, 325 000 ml @ 75 mls/hr IV . [id number] [facility] Rx#:[id number] Oral 100 Output: Drainage 55 90 Abdomen 55 90 Urine 1000 250 Other: Voiding Method Urinal Urinal # Voids 1 - Exam GENERAL: The patient is alert and oriented x3, not in any acute distress. Well developed, well nourished. HEENT: Pupils are round and equally reacting to light. EOMI. No scleral icterus. No conjunctival pallor. Normocephalic, atraumatic. No pharyngeal erythema. No thyromegaly. CARDIOVASCULAR: S1 and S2 present. No murmurs, rubs, or gallops. PULMONARY: Chest is clear to auscultation, no wheezing or crackles. -ABDOMEN: Soft, nontender, nondistended, normoactive bowel sounds. No palpable organomegaly. There are 3 puncture wounds were closed and healing in the abdomen MUSCULOSKELETAL: No joint swelling or deformity. EXTREMITIES: No cyanosis, clubbing, or pedal edema. NEUROLOGICAL: Gross neurological examination did not reveal any focal deficits. SKIN: No rashes. no petechiae. - Labs CBC & Chem 7: 07/04/20 08:00 07/04/20 08:00 Labs: Abnormal Lab Results - Last 24 Hours (Table) 07/04/20 07/04/20 07/04/20 Range/Units 11:39 16:29 20:14 POC Glucose (mg/dL) 122 H 236 H 222 H (75-99) mg/dL 07/05/20 Range/Units 06:55 POC Glucose (mg/dL) 64 L (75-99) mg/dL Assessment and Plan Assessment: enlarged gallbladder- status post laparoscopic cholecystectomy done on 07/02/2020. Pathology report showing acute gangrenous cholecystitis Leukocytosis, improved CKD stage 3-4 History of coronary artery disease Diabetes mellitus GERD Hypertension Hyperlipidemia Rheumatoid arthritis Migraine headaches Diabetic neuropathy Enlarge prostate Plan: This is a pleasant 54 years old male who presents with gallbladder disease status post lap cholecystectomy by surgery primary team. Continue with Zosyn and then finished oral antibiotics upon discharge. Continue gentle hydration. continue with iron pills. Increase Norvasc to 10 mg. Switch Levemir from night dose to a day does Follow up recommendation by surgery primary team Labs and medication were reviewed.. Continue same treatment. Continue with symptomatic treatment. Resume home medication. Monitor lytes and vitals. DVT and GI prophylaxis. Further recommendationsas per clinical course of the patient DVT prophylaxis: Subcutaneous heparin GI Prophylaxis: Ppi PT/OT: Home health care We recommend patient to follow-up with his PCP within one week of discharge and he was instructed with the same Thank you for consulting us
[2020-07-05 12:05] LABS: Glucose,Whole Blood 120 mg/dL (75-99)
--- NOTE | 2020-07-05 13:51 | P.DS ---
Providers Date of admission: 07/02/20 07:13 Attending physician: Evan Kuo Consults: 06/29/20 23:04 Consult Physician Routine Consulting Provider: Shakeel Miramontes Consult Reason/Comments: per Dr. Kuo for primary Do you want consulting provider notified?: Yes Primary care physician: Tyler Newton Hospital Course: Discharge diagnosis 1. Gangrenous cholecystitis status post laparoscopic cholecystectomy Hospital course This is a 54-year-old male who presented with right upper quadrant abdominal pain. He is found have evidence of an acute cholecystitis. He is status post laparoscopic cholecystectomy for gangrenous cholecystitis. He tolerated surgery well. Pain is controlled. He is tolerating diet. He is afebrile. He is ambulating. He is stable for discharge home. Physician Wireworker Supervisor note has been reviewed by physician. Signing provider agrees with the documented findings, assessment, and plan of care. Patient Condition at Discharge: Stable Plan - Discharge Summary Discharge Rx Participant: No New Discharge Prescriptions: New Amoxicillin/Potassium Clav [Augmentin 875-125 Tablet] 1 tab PO Q12HR 7 Days #14 tab Acetaminophen Tab [Tylenol Tab] 650 mg PO Q4H PRN #30 tablet PRN Reason: Pain Continue Pantoprazole [Protonix] 40 mg PO BID@1000,2200 Tamsulosin [Flomax] 0.4 mg PO BID@1000,2200 Citalopram Hydrobromide [CeleXA] 20 mg PO DAILY@1000 Ergocalciferol (Vitamin D2) [Drisdol (50,000 units)] 50,000 unit PO MO sitaGLIPtin [Januvia] 100 mg PO DAILY@1000 allopurinoL [Zyloprim] 100 mg PO BID@1000,2200 hydrALAZINE HCL [Apresoline] 100 mg PO BID@1000,2200 Clopidogrel Bisulfate [Plavix] 75 mg PO HS@2200 Glimepiride [Amaryl] 4 mg PO BID@1000,2200 Lurasidone HCl [Latuda] 40 mg PO HS@2200 cloNIDine HCL [Catapres] 0.1 mg PO DAILY@1800 Aspirin 81 mg PO DAILY@1000 amLODIPine [Norvasc] 5 mg PO DAILY@1800 Metoprolol Succinate (ER) [Toprol XL] 50 mg PO DAILY@1000 Isosorbide Mononitrate ER [Imdur] 60 mg PO DAILY@1000 Atorvastatin [Lipitor] 80 mg PO HS@2199 Sucralfate [Carafate] 1 gm PO BID@999,2199 Insulin Detemir (Levemir) [Levemir] 25 unit SQ HS@2199 Gabapentin [Neurontin] 300 mg PO BID@1000,2199 Furosemide [Lasix] 40 mg PO DAILY@1000 Citalopram Hydrobromide [CeleXA] 40 mg PO DAILY@1000 Discharge Medication List Pantoprazole [Protonix] 40 mg PO BID@1000,219911/05/17 [History] Tamsulosin [Flomax] 0.4 mg PO BID@1000,219911/05/17 [History] Citalopram Hydrobromide [CeleXA] 20 mg PO DAILY@99912/12/18 [History] Ergocalciferol (Vitamin D2) [Drisdol (50,000 units)] 50,000 unit PO MO 02/23/19 [History] allopurinoL [Zyloprim] 100 mg PO BID@999,219904/05/19 [History] hydrALAZINE HCL [Apresoline] 100 mg PO BID@999,219904/05/19 [History] sitaGLIPtin [Januvia] 100 mg PO DAILY@99904/05/19 [History] Clopidogrel Bisulfate [Plavix] 75 mg PO HS@219904/06/19 [History] Glimepiride [Amaryl] 4 mg PO BID@1000,219909/07/19 [History] Lurasidone HCl [Latuda] 40 mg PO HS@219909/07/19 [History] Aspirin 81 mg PO DAILY@99912/30/19 [History] Atorvastatin [Lipitor] 80 mg PO HS@219912/30/19 [History] Isosorbide Mononitrate ER [Imdur] 60 mg PO DAILY@99912/30/19 [History] Metoprolol Succinate (ER) [Toprol XL] 50 mg PO DAILY@99912/30/19 [History] amLODIPine [Norvasc] 5 mg PO DAILY@179912/30/19 [History] cloNIDine HCL [Catapres] 0.1 mg PO DAILY@179912/30/19 [History] Citalopram Hydrobromide [CeleXA] 40 mg PO DAILY@99906/29/20 [History] Furosemide [Lasix] 40 mg PO DAILY@99906/29/20 [History] Gabapentin [Neurontin] 300 mg PO BID@999,219906/29/20 [History] Insulin Detemir (Levemir) [Levemir] 25 unit SQ HS@219906/29/20 [History] Sucralfate [Carafate] 1 gm PO BID@999,219906/29/20 [History] Acetaminophen Tab [Tylenol Tab] 650 mg PO Q4H PRN #30 tablet 07/05/20 [Rx] Amoxicillin/Potassium Clav [Augmentin 875-125 Tablet] 1 tab PO Q12HR 7 Days #14 tab 07/05/20 [Rx] Follow up Appointment(s)/Referral(s): Lamar Scott MD [Primary Care Provider] - 1-2 days [facility] Nurse, [NON-STAFF] - 1-2 Days Evan Kuo MD [STAFF PHYSICIAN] - 1 Week Patient Instructions/Handouts: Abdominal Pain (ED) Activity/Diet/Wound Care/Special Instructions: No lifting over 10 pounds You may shower. No soaking or tub baths for 2 weeks Very light activity until you are reevaluated at your follow up appointment with your surgeon Discharge Disposition: HOME WITH HOME HEALTH SERVICES
[2020-07-05] MEDS: SODIUM CHLORIDE 0.9% 1,000 ML IV SCH (14:00)
[2020-07-05 15:32] VITALS: BP 159/74; PULSE 68; RESP 17; TEMP 97.9
[2020-07-05] MEDS ORDERED: amLODIPine 10 MG TAB PO SCH (18:00)
[2020-07-06] MEDS ORDERED: INSULIN DETEMIR (LEVEMIR) 100 UNIT/ML SYR SQ SCH (07:00)
== END 2020-07-05 17:10 | disposition home health service (06) | DRG 417 ==
LOC: EC 17:00 → 1SOBS 20:32 → OBSVTOIN 07-02 07:13 → 4SSUR 07-04 17:09
PROVIDERS: ADMIT Surgery; ATTEND Surgery
PROC: 0FT44ZZ Resection of Gallbladder, Percutaneous Endoscopic Approach (ICD-10-PCS; principal; 2020-07-02 10:00)
DX: K81.0 Acute cholecystitis (principal); K83.1 Obstruction of bile duct; N18.4 Chronic kidney disease, stage 4 (severe); G81.94 Hemiplegia, unspecified affecting left nondominant side; D62 Acute posthemorrhagic anemia; K82.A1 Gangrene of gallbladder in cholecystitis; K44.9 Diaphragmatic hernia without obstruction or gangrene; K21.9 Gastro-esophageal reflux disease without esophagitis; M06.9 Rheumatoid arthritis, unspecified; N40.0 Benign prostatic hyperplasia without lower urinary tract symptoms; I25.10 Atherosclerotic heart disease of native coronary artery without angina pectoris; I12.9 Hypertensive chronic kidney disease with stage 1 through stage 4 chronic kidney disease, or unspecified chronic kidney disease; H54.8 Legal blindness, as defined in USA; G43.909 Migraine, unspecified, not intractable, without status migrainosus; K82.9 Disease of gallbladder, unspecified; E11.40 Type 2 diabetes mellitus with diabetic neuropathy, unspecified; E11.22 Type 2 diabetes mellitus with diabetic chronic kidney disease; E78.5 Hyperlipidemia, unspecified; F32.9 Major depressive disorder, single episode, unspecified; F41.9 Anxiety disorder, unspecified; K59.09 Other constipation; I25.2 Old myocardial infarction; Z79.899 Other long term (current) drug therapy; Z79.82 Long term (current) use of aspirin; Z79.4 Long term (current) use of insulin; Z91.041 Radiographic dye allergy status; Z95.5 Presence of coronary angioplasty implant and graft; Z83.3 Family history of diabetes mellitus; Z82.49 Family history of ischemic heart disease and other diseases of the circulatory system; Z82.0 Family history of epilepsy and other diseases of the nervous system; Z86.73 Personal history of transient ischemic attack (TIA), and cerebral infarction without residual deficits
CPT/HCPCS: 36415; 71046; 71250; 74176; 76705; 80048; 80053; 81001; 83690; 83735; 84484; 85025; 85610; 85730; 88304; 93005; 94760; 96361; 96374; 96375; 96376; 99285

== ENCOUNTER 2020-09-25 12:20 | Emergency (ER) | payer MEDICARE ==
[2020-09-25 15:00] LABS: Basophils % (A) 0 %; Eosinophils # (A) 0.1 k/uL (0-0.7); Eosinophils % (A) 0 %; Lymphocytes # (A) 0.9 k/uL (1.0-4.8); Lymphocytes % (A) 6 %; MCH 30.3 pg (25.0-35.0); MCHC 34.9 g/dL (31.0-37.0); MCV 86.7 fL (80.0-100.0); Mean Platelet Volume 7.1; Monocytes # (A) 0.9 k/uL (0-1.0); Monocytes % (A) 6 %; Neutrophils # (A) 12.8 k/uL (1.3-7.7); Neutrophils % (A) 86 %; Platelet Count 160 k/uL (150-450); RDW 14.1 % (11.5-15.5); WBC 14.8 k/uL (3.8-10.6)
[2020-09-25 15:05] LABS: HGB 13.6 gm/dL (13.0-17.5)
[2020-09-25 15:20] LABS: Albumin 4.8 g/dL (3.5-5.0); Calcium 9.7 mg/dL (8.4-10.2); Potassium 4.3 mmol/L (3.5-5.1); Total Bilirubin 0.6 mg/dL (0.2-1.3); Total Protein 7.8 g/dL (6.3-8.2)
[2020-09-25 16:27] LABS: Appearance,Urine Cloudy (Clear); Bacteria,Urine Rare /hpf; Bilirubin,Urine Negative (Negative); Blood,Urine Moderate (Negative); Color,Urine Yellow; Glucose,Urine (UA) 4+ (Negative); Ketones,Urine Negative (Negative); Leukocyte Esterase,Urine Negative (Negative); Mucus,Urine Rare /hpf; Nitrite,Urine Negative (Negative); PH, Urine 6.5 (5.0-8.0); Protein,Urine 4+ (Negative); RBC,Urine 5 /hpf (0-5); Specific Gravity,Urine 1.025 (1.001-1.035); Squamous Epithelial Cell,Urine <1 /hpf (0-4); Urobilinogen,Urine <2.0 mg/dL (<2.0); WBC,Urine 6 /hpf (0-5)
[2020-09-25] MEDS ORDERED: ONDANSETRON 4 MG/2 ML VIAL IVP STA (16:39)
[2020-09-25] MEDS ORDERED: SODIUM CHLORIDE 0.9% 1,000 ML IV ONE (16:39)
[2020-09-25] MEDS ORDERED: FAMOTIDINE 20 MG/2 ML VIAL IV STA (16:40)
--- NOTE | 2020-09-25 16:51 | ED ---
General Adult HPI - General Chief complaint: Abdominal Pain Stated complaint: vomiting/3 days Time Seen by Provider: 09/25/20 16:13 Source: patient Mode of arrival: wheelchair Limitations: no limitations - History of Present Illness Initial comments: Is a 55-year-old male who has a history of hypertension and prostate cancer presents emergency department for nausea, vomiting, and diarrhea. The patient states is been going on for the last 2 or 3 days. He states he has not been able to keep anything down. He has not been able to keep down any of his medications as well. The patient can emergency department for evaluation. He does admit to some lightheadedness. He states that he has some epigastric abdominal pain that is nonradiating. No chest pain, short of breath, cough, fevers, chills. He denies any sick contacts. No other acute complaints. - Related Data Home Medications Medication Instructions Recorded Confirmed Pantoprazole [Protonix] 40 mg PO BID@1000,219911/05/17 09/21/20 Tamsulosin [Flomax] 0.4 mg PO BID@1000,219911/05/17 09/21/20 Citalopram Hydrobromide [CeleXA] 20 mg PO DAILY@99912/12/18 09/21/20 allopurinoL [Zyloprim] 100 mg PO BID@1000,219904/05/19 09/21/20 hydrALAZINE HCL [Apresoline] 100 mg PO BID@1000,219904/05/19 09/21/20 sitaGLIPtin [Januvia] 100 mg PO DAILY@99904/05/19 09/21/20 Clopidogrel Bisulfate [Plavix] 75 mg PO HS@219904/06/19 09/21/20 Glimepiride [Amaryl] 4 mg PO BID@1000,219909/07/19 09/21/20 Lurasidone HCl [Latuda] 40 mg PO HS@219909/07/19 09/21/20 Aspirin 81 mg PO DAILY@99912/30/19 09/21/20 Atorvastatin [Lipitor] 80 mg PO HS@219912/30/19 09/21/20 Isosorbide Mononitrate ER [Imdur] 60 mg PO DAILY@99912/30/19 09/21/20 Metoprolol Succinate (ER) [Toprol 50 mg PO DAILY@1000 12/30/19 09/21/20 XL] amLODIPine [Norvasc] 5 mg PO DAILY@1800 12/30/19 09/21/20 cloNIDine HCL [Catapres] 0.1 mg PO DAILY@1800 12/30/19 09/21/20 Citalopram Hydrobromide [CeleXA] 40 mg PO DAILY@1000 06/29/20 09/21/20 Furosemide [Lasix] 40 mg PO DAILY@1000 06/29/20 09/21/20 Gabapentin [Neurontin] 300 mg PO BID@1000,2200 06/29/20 09/21/20 Insulin Detemir (Levemir) [Levemir] 25 unit SQ HS@219906/29/20 09/21/20 Sucralfate [Carafate] 1 gm PO BID@1000,2200 06/29/20 09/21/20 Previous Rx's Medication Instructions Recorded Acetaminophen Tab [Tylenol Tab] 650 mg PO Q4H PRN #30 tablet 07/05/20 Ferrous Sulfate [Iron (65 MG 325 mg PO BID-W/MEALS #40 tab 07/05/20 Elemental)] Ondansetron Odt [Zofran Odt] 4 mg PO Q8HR PRN #10 tab 09/25/20 Allergies Allergy/AdvReac Type Severity Reaction Status Date / Time Iodinated Contrast Media AdvReac Nausea & Verified 09/25/20 13:08 [Iodinated Contrast- Oral Vomiting and IV Dye] Review of Systems ROS Statement: Those systems with pertinent positive or pertinent negative responses have been documented in the HPI. ROS Other: All systems not noted in ROS Statement are negative. Past Medical History Past Medical History: Coronary Artery Disease (CAD), CVA/TIA, Diabetes Mellitus, GERD/Reflux, Hyperlipidemia, Hypertension, Myocardial Infarction ([place]), Renal Disease, Rheumatoid Arthritis ([place]) Additional Past Medical History / Comment(s): stroke apr 2017, migranes, diabe tic neuropathy arms and legs, stage 2 kidney failure, PANCREATITIS, LEGALLY BLIND, enlarged prostate, trouble urinating Last Myocardial Infarction Date:: 2014? not sure History of Any Multi-Drug Resistant Organisms: None Reported Past Surgical History: Cholecystectomy, Heart Catheterization With Stent, Heart Catheterization With Stent Additional Past Surgical History / Comment(s): Prostrate surgery Past Anesthesia/Blood Transfusion Reactions: No Reported Reaction Additional Past Anesthesia/Blood Transfusion Reaction / Comment(s): never had anethesia Date of Last Stent Placement:: 2017 Past Psychological History: Anxiety, Depression Smoking Status: Never smoker Past Alcohol Use History: None Reported Past Drug Use History: None Reported - Past Family History Mother Family Medical History: CVA/TIA, Diabetes Mellitus, Hypertension Additional Family Medical History / Comment(s): Parkinson's Mother is 77yrs old. Father Family Medical History: CVA/TIA, Diabetes Mellitus, Myocardial Infarction ([place]) Additional Family Medical History / Comment(s): Father of a [place] in his 50s. General Exam - General Exam Comments Initial Comments: Constitutional: Awake alert Appears comfortable Head: Normocephalic atraumatic Eyes: no conjunctival injection No scleral icterus EOMI Neck: No JVD Supple Heart: Regular rate rhythm normal S1-S2 no murmurs Lungs: Clear to auscultation bilaterally No wheezing No rales Abdomen: Soft nondistended nontender Extremities: Non edematous DP pulses intact Radial pulses intact Neuro: A&Ox3 No focal neurologic deficits Psych: Appropriate mood and affect Limitations: no limitations Course Vital Signs 09/25/20 09/25/20 09/25/20 13:04 18:39 19:12 Temperature 98.2 F Pulse Rate 89 77 78 Respiratory 22 18 17 Rate Blood Pressure 190/103 204/103 202/99 O2 Sat by Pulse 99 97 100 Oximetry 09/25/20 09/25/20 19:58 20:47 Temperature Pulse Rate 80 80 Respiratory 18 18 Rate Blood Pressure 192/92 200/95 O2 Sat by Pulse 98 99 Oximetry Medical Decision Making - Medical Decision Making This is a 55-year-old male presents emergency department for nausea, vomiting. The patient did not have any episodes of nausea or vomiting in emergency department. He was given Zofran and he stated that he did not have any impro vement so was given Reglan and Benadryl. He stated he had improvement after this. Blood work was reviewed and unremarkable. He has chronic kidney disease. Patient was given IV fluids. No ketones in his urine. He will had some glucose however and his glucose was noted to be elevated. I'm going to send the patient home on Zofran. A told monitor symptoms at home and return if any worsening or changing symptoms. All questions were answered. - Lab Data Result diagrams: 09/25/20 14:48 09/25/20 14:48 Lab Results 09/25/20 09/25/20 09/25/20 Range/Units 14:48 14:48 16:13 WBC 14.8 H (3.8-10.6) k/uL RBC 4.50 (4.30-5.90) m/uL Hgb 13.6 D (13.0-17.5) gm/dL Hct 39.0 (39.0-53.0) % MCV 86.7 (80.0-100.0) fL MCH 30.3 (25.0-35.0) pg MCHC 34.9 (31.0-37.0) g/dL RDW 14.1 (11.5-15.5) % Plt Count 160 (150-450) k/uL MPV 7.1 Neutrophils % 86 % Lymphocytes % 6 % Monocytes % 6 % Eosinophils % 0 % Basophils % 0 % Neutrophils # 12.8 H (1.3-7.7) k/uL Lymphocytes # 0.9 L (1.0-4.8) k/uL Monocytes # 0.9 (0-1.0) k/uL Eosinophils # 0.1 (0-0.7) k/uL Basophils # 0.0 (0-0.2) k/uL Sodium 138 (137-145) mmol/L Potassium 4.3 (3.5-5.1) mmol/L Chloride 102 (98-107) mmol/L Carbon Dioxide 26 (22-30) mmol/L Anion Gap 10 mmol/L BUN 22 H (9-20) mg/dL Creatinine 1.72 H (0.66-1.25) mg/dL Est GFR (CKD-EPI)AfAm 51 (>60 ml/min/1.73 sqM) Est GFR (CKD-EPI)NonAf 44 (>60 ml/min/1.73 sqM) Glucose 292 H (74-99) mg/dL Calcium 9.7 (8.4-10.2) mg/dL Total Bilirubin 0.6 (0.2-1.3) mg/dL AST 32 (17-59) U/L ALT 36 (4-49) U/L Alkaline Phosphatase 134 H (38-126) U/L Total Protein 7.8 (6.3-8.2) g/dL Albumin 4.8 (3.5-5.0) g/dL Amylase 67 (30-110) U/L Lipase 190 (23-300) U/L Urine Color Yellow Urine Appearance Cloudy (Clear) Urine pH 6.5 (5.0-8.0) Ur Specific [place] 1.025 (1.001-1.035) Urine Protein 4+ H (Negative) Urine Glucose (UA) 4+ H (Negative) Urine Ketones Negative (Negative) Urine Blood Moderate H (Negative) Urine Nitrite Negative (Negative) Urine Bilirubin Negative (Negative) Urine Urobilinogen <2.0 (<2.0) mg/dL Ur Leukocyte Esterase Negative (Negative) Urine RBC 5 (0-5) /hpf Urine WBC 6 H (0-5) /hpf Ur Squamous Epith Cells <1 (0-4) /hpf Urine Bacteria Rare H (None) /hpf Urine Mucus Rare H (None) /hpf Disposition Clinical Impression: Nausea & vomiting Disposition: HOME SELF-CARE Condition: Stable Instructions (If sedation given, give patient instructions): Acute Nausea and Vomiting (ED) Prescriptions: Ondansetron Odt [Zofran Odt] 4 mg PO Q8HR PRN #10 tab PRN Reason: Nausea Is patient prescribed a controlled substance at d/c from ED?: No Referrals: Lamar Scott MD [Primary Care Provider] - 1-2 days
[2020-09-25] MEDS ORDERED: hydrALAZINE HCL 20 MG/ML 1 ML VIAL IVP STA (18:37)
[2020-09-25] MEDS ORDERED: diphenhydrAMINE 50 MG/ML 1 ML VIAL IVP STA (19:39)
[2020-09-25] MEDS ORDERED: METOCLOPRAMIDE 5 MG/ML 2 ML VIAL IVP STA (19:39)
[2020-09-25 20:00] VITALS: RESP 18
[2020-09-25 20:01] VITALS: PULSE 80; TEMP 98.2
[2020-09-25] MEDS ORDERED: cloNIDine HCL 0.1 MG TAB PO STA (20:39)
[2020-09-25 20:48] VITALS: BP 200/95
== END 2020-09-25 21:01 | disposition home or self-care (01) ==
LOC: EC 12:20
DX: R11.2 Nausea with vomiting, unspecified (principal); E11.40 Type 2 diabetes mellitus with diabetic neuropathy, unspecified; E78.5 Hyperlipidemia, unspecified; F32.9 Major depressive disorder, single episode, unspecified; I10 Essential (primary) hypertension; I25.10 Atherosclerotic heart disease of native coronary artery without angina pectoris; K21.9 Gastro-esophageal reflux disease without esophagitis; I25.2 Old myocardial infarction; Z79.82 Long term (current) use of aspirin; Z79.4 Long term (current) use of insulin; Z79.899 Other long term (current) drug therapy; Z86.73 Personal history of transient ischemic attack (TIA), and cerebral infarction without residual deficits; F41.9 Anxiety disorder, unspecified
CPT/HCPCS: 96361 ×2; 96374 ×2; 96375; 99284 ×2; 36415; 80053; 82150; 83690; 85025; 81001; J0360; J1200; J2765; J2405; 96360

== ENCOUNTER 2020-11-26 17:34 | Emergency (ER) | payer MEDICARE ==
[2020-11-26 18:14] VITALS: TEMP 98.8
[2020-11-26] MEDS ORDERED: SODIUM CHLORIDE 0.9% 2,000 ML IV STA (20:17)
[2020-11-26] MEDS ORDERED: METOCLOPRAMIDE 5 MG/ML 2 ML VIAL IVP STA (20:17)
[2020-11-26] MEDS ORDERED: diphenhydrAMINE 50 MG/ML 1 ML VIAL IVP STA (20:17)
--- NOTE | 2020-11-26 20:28 | ED ---
General Adult HPI - General Chief complaint: Nausea/Vomiting/Diarrhea Stated complaint: Vomiting Time Seen by Provider: 11/26/20 20:16 Source: patient, RN notes reviewed Mode of arrival: ambulatory Limitations: no limitations - History of Present Illness Initial comments: 55-year-old male presents emergency Department chief complaint of nausea vomiting. Patient states she's been having on and off issues since June when he had a cholecystectomy. He has not followed up regarding the symptoms. Patient has been seen in emergency department. He did some Zofran at home with no relief. She states that he's been on Septra vomiting. 3 days he is known diabetic. Patient states blood sugar has been in the mid 200s. Denies chest pain shortness breath headache dizziness. He states he has no localized abdominal pain - Related Data Home Medications Medication Instructions Recorded Confirmed Pantoprazole [Protonix] 40 mg PO BID@1000,219911/05/17 11/16/20 Tamsulosin [Flomax] 0.4 mg PO BID@1000,219911/05/17 11/16/20 Citalopram Hydrobromide [CeleXA] 20 mg PO DAILY@99912/12/18 11/16/20 allopurinoL [Zyloprim] 100 mg PO BID@1000,219904/05/19 11/16/20 hydrALAZINE HCL [Apresoline] 100 mg PO BID@1000,219904/05/19 11/16/20 sitaGLIPtin [Januvia] 100 mg PO DAILY@99904/05/19 11/16/20 Clopidogrel Bisulfate [Plavix] 75 mg PO HS@219904/06/19 11/16/20 Glimepiride [Amaryl] 4 mg PO BID@1000,219909/07/19 11/16/20 Lurasidone HCl [Latuda] 40 mg PO HS@219909/07/19 11/16/20 Aspirin 81 mg PO DAILY@99912/30/19 11/16/20 Atorvastatin [Lipitor] 80 mg PO HS@219912/30/19 11/16/20 Isosorbide Mononitrate ER [Imdur] 60 mg PO DAILY@99912/30/19 11/16/20 Metoprolol Succinate (ER) [Toprol 50 mg PO DAILY@99912/30/19 11/16/20 XL] amLODIPine [Norvasc] 5 mg PO DAILY@1800 12/30/19 11/16/20 cloNIDine HCL [Catapres] 0.1 mg PO DAILY@1800 12/30/19 11/16/20 Citalopram Hydrobromide [CeleXA] 40 mg PO DAILY@1000 06/29/20 11/16/20 Furosemide [Lasix] 40 mg PO DAILY@1000 06/29/20 11/16/20 Gabapentin [Neurontin] 300 mg PO BID@1000,0 06/29/20 11/16/20 Insulin Detemir (Levemir) [Levemir] 25 unit SQ HS@219906/29/20 11/16/20 Sucralfate [Carafate] 1 gm PO BID@1000,219906/29/20 11/16/20 Previous Rx's Medication Instructions Recorded Acetaminophen Tab [Tylenol Tab] 650 mg PO Q4H PRN #30 tablet 07/05/20 Ferrous Sulfate [Iron (65 MG 325 mg PO BID-W/MEALS #40 tab 07/05/20 Elemental)] Ondansetron Odt [Zofran Odt] 4 mg PO Q8HR PRN #10 tab 09/25/20 Metoclopramide [Reglan] 10 mg PO TID PRN #15 tab 11/26/20 Allergies Allergy/AdvReac Type Severity Reaction Status Date / Time Iodinated Contrast Media AdvReac Nausea & Verified 11/26/20 18:15 [Iodinated Contrast- Oral Vomiting and IV Dye] Review of Systems ROS Statement: Those systems with pertinent positive or pertinent negative responses have been documented in the HPI. ROS Other: All systems not noted in ROS Statement are negative. Past Medical History Past Medical History: Coronary Artery Disease (CAD), CVA/TIA, Diabetes Mellitus, GERD/Reflux, Hyperlipidemia, Hypertension, Myocardial Infarction ([place]), Renal Disease, Rheumatoid Arthritis ([place]) Additional Past Medical History / Comment(s): stroke apr 2017, migranes, diabetic neuropathy arms and legs, stage 2 kidney failure, PANCREATITIS, LEGALLY BLIND, enlarged prostate, trouble urinating Last Myocardial Infarction Date:: 2014? not sure History of Any Multi-Drug Resistant Organisms: None Reported Past Surgical History: Cholecystectomy, Heart Catheterization With Stent, Heart Catheterization With Stent Additional Past Surgical History / Comment(s): Prostrate surgery Past Anesthesia/Blood Transfusion Reactions: No Reported Reaction Additional Past Anesthesia/Blood Transfusion Reaction / Comment(s): never had anethesia Date of Last Stent Placement:: 2017 Past Psychological History: Anxiety, Depression Smoking Status: Never smoker - Past Family History Mother Family Medical History: CVA/TIA, Diabetes Mellitus, Hypertension Additional Family Medical History / Comment(s): Parkinson's Mother is 77yrs old. Father Family Medical History: CVA/TIA, Diabetes Mellitus, Myocardial Infarction ([place]) Additional Family Medical History / Comment(s): Father of a [place] in his 50s. General Exam Limitations: no limitations General appearance: alert, in no apparent distress Head exam: Present: atraumatic, normocephalic, normal inspection Neck exam: Present: normal inspection. Absent: tenderness, meningismus, lymphadenopathy Respiratory exam: Present: normal lung sounds bilaterally. Absent: respiratory distress, wheezes, rales, rhonchi, stridor Cardiovascular Exam: Present: regular rate, normal rhythm, normal heart sounds. Absent: systolic murmur, diastolic murmur, rubs, gallop, clicks GI/Abdominal exam: Present: soft, normal bowel sounds. Absent: distended, tenderness, guarding, rebound, rigid Back exam: Absent: CVA tenderness (R), CVA tenderness (L) Neurological exam: Present: alert Skin exam: Present: warm, dry, intact, normal color. Absent: rash Course Vital Signs 11/26/20 18:12 Temperature 98.8 F Pulse Rate 99 Respiratory 18 Rate Blood Pressure 182/95 O2 Sat by Pulse 98 Oximetry Medical Decision Making - Medical Decision Making Patient was reviewed shows chronic renal insufficiency. Patient is well hydrated, given antiemetics patient be discharged in stable condition advised to follow-up with Dr. Kuo for EGD as he's had ongoing symptoms - Lab Data Result diagrams: 11/26/20 20:32 11/26/20 20:32 Lab Results 11/26/20 11/26/20 11/26/20 Range/Units 20:32 20:32 20:32 WBC 11.4 H (3.8-10.6) k/uL RBC 4.17 L (4.30-5.90) m/uL Hgb 12.6 L (13.0-17.5) gm/dL Hct 36.5 L (39.0-53.0) % MCV 87.6 (80.0-100.0) fL MCH 30.4 (25.0-35.0) pg MCHC 34.7 (31.0-37.0) g/dL RDW 14.2 (11.5-15.5) % Plt Count 131 L (150-450) k/uL MPV 6.4 Neutrophils % 84 % Lymphocytes % 8 % Monocytes % 6 % Eosinophils % 1 % Basophils % 0 % Neutrophils # 9.5 H (1.3-7.7) k/uL Lymphocytes # 0.9 L (1.0-4.8) k/uL Monocytes # 0.7 (0-1.0) k/uL Eosinophils # 0.1 (0-0.7) k/uL Basophils # 0.0 (0-0.2) k/uL Sodium 139 (137-145) mmol/L Potassium 4.8 (3.5-5.1) mmol/L Chloride 103 (98-107) mmol/L Carbon Dioxide 25 (22-30) mmol/L Anion Gap 11 mmol/L BUN 29 H (9-20) mg/dL Creatinine 1.87 H (0.66-1.25) mg/dL Est GFR (CKD-EPI)AfAm 47 (>60 ml/min/1.73 sqM) Est GFR (CKD-EPI)NonAf 40 (>60 ml/min/1.73 sqM) Glucose 273 H (74-99) mg/dL Calcium 9.4 (8.4-10.2) mg/dL Total Bilirubin 0.7 (0.2-1.3) mg/dL AST 29 (17-59) U/L ALT 27 (4-49) U/L Alkaline Phosphatase 123 (38-126) U/L Total Protein 7.0 (6.3-8.2) g/dL Albumin 4.4 (3.5-5.0) g/dL Amylase 67 (30-110) U/L Lipase 105 (23-300) U/L Urine Color Yellow Urine Appearance Clear (Clear) Urine pH 6.0 (5.0-8.0) Ur Specific [place] 1.019 (1.001-1.035) Urine Protein 3+ H (Negative) Urine Glucose (UA) 4+ H (Negative) Urine Ketones Negative (Negative) Urine Blood Small H (Negative) Urine Nitrite Negative (Negative) Urine Bilirubin Negative (Negative) Urine Urobilinogen <2.0 (<2.0) mg/dL Ur Leukocyte Esterase Negative (Negative) Urine RBC 5 (0-5) /hpf Urine WBC 4 (0-5) /hpf Ur Squamous Epith Cells <1 (0-4) /hpf Urine Bacteria Rare H (None) /hpf Hyaline Casts 173 H (0-2) /lpf Urine Mucus Rare H (None) /hpf Acetone, Qual Negative (Negative) Disposition Clinical Impression: Nausea & vomiting Disposition: HOME SELF-CARE Condition: Stable Instructions (If sedation given, give patient instructions): Acute Nausea and Vomiting (ED) Additional Instructions: Please return to the Emergency Department if symptoms worsen or any other conc erns. Prescriptions: Metoclopramide [Reglan] 10 mg PO TID PRN #15 tab PRN Reason: Nausea Is patient prescribed a controlled substance at d/c from ED?: No Referrals: Lamar Scott MD [Primary Care Provider] - 1-2 days Evan Kuo MD [STAFF PHYSICIAN] - 1-2 days Time of Disposition: 22:03
[2020-11-26 20:43] LABS: Basophils % (A) 0 %; Eosinophils # (A) 0.1 k/uL (0-0.7); Eosinophils % (A) 1 %; HCT 36.5 % (39.0-53.0); HGB 12.6 gm/dL (13.0-17.5); Lymphocytes # (A) 0.9 k/uL (1.0-4.8); Lymphocytes % (A) 8 %; MCH 30.4 pg (25.0-35.0); MCHC 34.7 g/dL (31.0-37.0); MCV 87.6 fL (80.0-100.0); Mean Platelet Volume 6.4; Monocytes # (A) 0.7 k/uL (0-1.0); Monocytes % (A) 6 %; Neutrophils # (A) 9.5 k/uL (1.3-7.7); Neutrophils % (A) 84 %; Platelet Count 131 k/uL (150-450); RBC 4.17 m/uL (4.30-5.90); RDW 14.2 % (11.5-15.5); WBC 11.4 k/uL (3.8-10.6)
[2020-11-26 20:53] LABS: ALT 27 U/L (4-49); AST 29 U/L (17-59); African American GFR (CKD) 47 (>60 ml/min/1.73 sqM); Albumin 4.4 g/dL (3.5-5.0); Alkaline Phosphatase 123 U/L (38-126); Amylase 67 U/L (30-110); Anion Gap 11 mmol/L; Appearance,Urine Clear (Clear); Bacteria,Urine Rare /hpf; Bilirubin,Urine Negative (Negative); Blood Urea Nitrogen 29 mg/dL (9-20); Blood,Urine Small (Negative); Calcium 9.4 mg/dL (8.4-10.2); Carbon Dioxide 25 mmol/L (22-30); Chloride 103 mmol/L (98-107); Color,Urine Yellow; Glucose 273 mg/dL (74-99); Glucose,Urine (UA) 4+ (Negative); Hyaline Casts,Urine 173 /lpf (0-2); Ketones,Urine Negative (Negative); Leukocyte Esterase,Urine Negative (Negative); Lipase 105 U/L (23-300); Mucus,Urine Rare /hpf; Nitrite,Urine Negative (Negative); Non-African American GFR(CKD) 40 (>60 ml/min/1.73 sqM); Potassium 4.8 mmol/L (3.5-5.1); Protein,Urine 3+ (Negative); RBC,Urine 5 /hpf (0-5); Sodium 139 mmol/L (137-145); Specific Gravity,Urine 1.019 (1.001-1.035); Squamous Epithelial Cell,Urine <1 /hpf (0-4); Total Bilirubin 0.7 mg/dL (0.2-1.3); Urobilinogen,Urine <2.0 mg/dL (<2.0); WBC,Urine 4 /hpf (0-5)
[2020-11-26] MEDS ORDERED: LURASIDONE 40 MG TAB PO STA (22:01)
[2020-11-26] MEDS ORDERED: CITALOPRAM HYDROBROMIDE 20 MG TAB PO STA (22:03)
[2020-11-26] MEDS ORDERED: TAMSULOSIN 0.4 MG CAP.ER.24H PO STA (22:09)
[2020-11-26] MEDS ORDERED: ONDANSETRON 4 MG/2 ML VIAL IVP STA (22:13)
[2020-11-26 22:55] VITALS: BP 181/89; PULSE 80; RESP 17
== END 2020-11-26 22:55 | disposition home or self-care (01) ==
LOC: EC 17:34
DX: R11.2 Nausea with vomiting, unspecified (principal); E11.40 Type 2 diabetes mellitus with diabetic neuropathy, unspecified; E78.5 Hyperlipidemia, unspecified; F32.9 Major depressive disorder, single episode, unspecified; I10 Essential (primary) hypertension; I25.10 Atherosclerotic heart disease of native coronary artery without angina pectoris; I25.2 Old myocardial infarction; K21.9 Gastro-esophageal reflux disease without esophagitis; M06.9 Rheumatoid arthritis, unspecified; Z79.4 Long term (current) use of insulin; Z79.82 Long term (current) use of aspirin; Z86.73 Personal history of transient ischemic attack (TIA), and cerebral infarction without residual deficits; Z90.49 Acquired absence of other specified parts of digestive tract; Z95.5 Presence of coronary angioplasty implant and graft
CPT/HCPCS: 99284; 96374; 96375 ×3; 96361; 36415; 80053; 82150; 82009; 83690; 85025; 81001; J1200; J2765; J2405

== ENCOUNTER → 2020-12-17 | Outpatient (CLI) | payer MEDICARE ==
--- NOTE | 2020-12-17 15:00 | FL ---
EXAMINATION TYPE: FL UGI air w esophagus DATE OF EXAM: 12/17/2020 COMPARISON: 01/18/2019 KUB HISTORY: History of repeated vomiting with visits to the emergency department burning sensation. Vomi ting for 4 days x2 months. TECHNIQUE: A single/double contrast UGI study is performed. A total of 1 minute 2 seconds of fluoro scopic time was utilized during procedure FINDINGS: The patient was unable to tolerate the procedure and began vomiting after contrast was giv en. Initial standing images of the esophagus appear grossly unremarkable. There is a large hiatal her arcadio. There is a large amount of esophageal reflux which resulted in the patient vomiting. Esophageal imaging could not be obtained upon lying down. Images of the stomach and proximal small bowel were li mited with overhead views. IMPRESSION: 1. Extremely limited study. There is a large hiatal hernia. There is a large amount of esophageal ref lux which resulted in the patient vomiting. The study could not be completed.
== END | disposition home or self-care (01) ==
LOC: RADUSWWP 08:32
PROVIDERS: ATTEND Surgery
DX: K44.9 Diaphragmatic hernia without obstruction or gangrene (principal); K21.9 Gastro-esophageal reflux disease without esophagitis
CPT/HCPCS: 74246

== ENCOUNTER 2020-12-27 07:36 | Day surgery (SDC) | payer MEDICARE ==
[2020-12-25 16:01] VITALS: BMI 29.5
[~2020-12-27 07:36] MED LIST changes: -GLYCOPYRROLATE 0.2 MG/ML 2 ML VIAL ONE; -KETOROLAC 15 MG/ML 1 ML VIAL ONE; +LIDOCAINE 1% (10MG/ML) FOR IV START INTRADERMA PRN; -LIDOCAINE 1% INJ 10MG/ML (20 ML MDV) ONE; -MIDAZOLAM 2 MG/2 ML VIAL ONE; -NEOSTIGMINE 1 MG/ML 10 ML VIAL ONE; -PROPOFOL 10 MG/ML 20 ML VIAL IV ONE; -ROCURONIUM 10 MG/ML (10 ML VIAL) IV ONE; -fentaNYL (PF) 50 MCG/ML 2 ML AMP ONE
[2020-12-27] MEDS: LACTATED RINGERS 1,000 ML IV SCH ×2 (08:15→08:33)
[2020-12-27 08:33] VITALS: RESP 16; TEMP 97.8
--- NOTE | 2020-12-27 08:33 | P.GSHP ---
History of Present Illness H&P Date: 12/27/20 Chief Complaint: GERD This a 55-year-old male who presents for EGD. He's had issues with GERD. Past Medical History Past Medical History: Coronary Artery Disease (CAD), CVA/TIA, Diabetes Mellitus, GERD/Reflux, Hyperlipidemia, Hypertension, Myocardial Infarction ([place]), Prostate Disorder, Renal Disease, Rheumatoid Arthritis ([place]) Additional Past Medical History / Comment(s): stroke apr 2017, migranes, diabetic neuropathy arms and legs, stage 3 kidney failure, PANCREATITIS, LEGALLY BLIND, enlarged prostate, trouble urinating, ANEMIA , HIATAL HERNIA, GOUT,POSSIBLE HEART FAILURE Last Myocardial Infarction Date:: 2014? not sure History of Any Multi-Drug Resistant Organisms: None Reported Past Surgical History: Cholecystectomy, Heart Catheterization With Stent, Heart Catheterization With Stent Additional Past Surgical History / Comment(s): Prostrate surgery Past Anesthesia/Blood Transfusion Reactions: No Reported Reaction Additional Past Anesthesia/Blood Transfusion Reaction / Comment(s): never had anethesia Date of Last Stent Placement:: 2017 Smoking Status: Never smoker - Past Family History Mother Family Medical History: CVA/TIA, Diabetes Mellitus, Hypertension Additional Family Medical History / Comment(s): Parkinson's Mother is 77yrs old. Father Family Medical History: CVA/TIA, Diabetes Mellitus, Myocardial Infarction ([place]) Additional Family Medical History / Comment(s): Father of a [place] in his 50s. Medications and Allergies Home Medications Medication Instructions Recorded Confirmed Type Pantoprazole [Protonix] 40 mg PO BID@1000,2200 11/05/17 12/25/20 History Tamsulosin [Flomax] 0.4 mg PO BID@1000,2200 11/05/17 12/25/20 History Citalopram Hydrobromide [CeleXA] 20 mg PO DAILY@1000 12/12/18 12/25/20 History allopurinoL [Zyloprim] 100 mg PO BID@1000,0 04/05/19 12/25/20 History hydrALAZINE HCL [Apresoline] 100 mg PO BID@1000,2200 04/05/19 12/25/20 History sitaGLIPtin [Januvia] 100 mg PO DAILY@1000 04/05/19 12/25/20 History Clopidogrel Bisulfate [Plavix] 75 mg PO HS@2200 04/06/19/06/21 History Glimepiride [Amaryl] 4 mg PO BID@1000,219909/07/19 12/25/20 History Lurasidone HCl [Latuda] 80 mg PO HS@219909/07/19 12/25/20 History Aspirin 81 mg PO DAILY@1000 12/30/19 12/25/20 History Atorvastatin [Lipitor] 80 mg PO HS@219912/30/19 12/25/20 History Isosorbide Mononitrate ER [Imdur] 60 mg PO DAILY@99912/30/19 12/25/20 History Metoprolol Succinate (ER) [Toprol 50 mg PO DAILY@99912/30/19 12/25/20 History XL] amLODIPine [Norvasc] 5 mg PO DAILY@1800 12/30/19 12/25/20 History cloNIDine HCL [Catapres] 0.1 mg PO DAILY@1800 12/30/19 12/25/20 History Citalopram Hydrobromide [CeleXA] 40 mg PO DAILY@99906/29/20 12/25/20 History Furosemide [Lasix] 40 mg PO DAILY@1000 06/29/20 12/25/20 History Gabapentin [Neurontin] 300 mg PO BID@1000,219906/29/20 12/25/20 History Insulin Detemir (Levemir) [Levemir] 25 unit SQ HS@219906/29/20 12/25/20 History Sucralfate [Carafate] 1 gm PO BID@1000,219906/29/20 12/25/20 History Acetaminophen Tab [Tylenol Tab] 650 mg PO Q4H PRN #30 tablet 07/05/20 12/25/20 Rx Ferrous Sulfate [Iron (65 MG 325 mg PO BID-W/MEALS #40 tab 07/05/20 12/25/20 Rx Elemental)] Ondansetron Odt [Zofran Odt] 4 mg PO Q8HR PRN #10 tab 09/25/20 12/25/20 Rx Metoclopramide [Reglan] 10 mg PO TID PRN #15 tab 11/26/20 12/25/20 Rx Procrit Unknown Dose SQ Q14D 12/26/20 History Allergies Allergy/AdvReac Type Severity Reaction Status Date / Time Iodinated Contrast Media AdvReac Nausea & Verified 12/27/20 08:16 [Iodinated Contrast- Oral Vomiting and IV Dye] Surgical - Exam - General well developed, well nourished, no distress - Eyes PERRL - ENT normal pinna - Neck no masses - Respiratory normal expansion - Cardiovascular Rhythm: regular - Abdomen Abdomen: soft, non tender Assessment and Plan Assessment: GERD. We'll perform EGD.
[2020-12-27 08:34] LABS: Glucose,Whole Blood 171 mg/dL (75-99)
[2020-12-27] MEDS ORDERED: LIDOCAINE 1% INJ 10MG/ML (20 ML MDV) ONE (08:35)
[2020-12-27] MEDS ORDERED: PROPOFOL 10 MG/ML 20 ML VIAL IV ONE (08:35)
--- NOTE | 2020-12-27 08:43 | P.OP ---
Date of Procedure: 12/27/20 Preoperative Diagnosis: GERD Postoperative Diagnosis: I will hernia Mild esophagitis Procedure(s) Performed: EGD Anesthesia: MAC Surgeon: Evan Kuo Pathology: other (Antrum) Condition: stable Disposition: PACU Description of Procedure: The patient's placed on the endoscopy table lateral position. He received IV sedation. The gastroscope placed oropharynx passed in the esophagus and into the stomach. Scope was placed through the pylorus. The first and second portion of the duodenum. Normal. Scope was then brought back the antrum this was mildly inflamed. A biopsies performed. The scope was unretroflexed and the remainder of the stomach appeared normal. There was a moderate size hiatal hernia. The GE junction was at 38 cm. The distal esophagus appeared mildly inflamed. The proximal esophagus appeared normal. Scope was withdrawn for patient.
[2020-12-27 09:11] VITALS: BP 144/75; PULSE 57
== END 2020-12-27 09:36 | disposition home or self-care (01) ==
LOC: ORWHC2ENDO 07:36
PROVIDERS: ATTEND Surgery
DX: K21.00 Gastro-esophageal reflux disease with esophagitis, without bleeding (principal); K44.9 Diaphragmatic hernia without obstruction or gangrene; I25.10 Atherosclerotic heart disease of native coronary artery without angina pectoris; I25.2 Old myocardial infarction; M06.9 Rheumatoid arthritis, unspecified; I12.9 Hypertensive chronic kidney disease with stage 1 through stage 4 chronic kidney disease, or unspecified chronic kidney disease; N18.30 Chronic kidney disease, stage 3 unspecified; N40.0 Benign prostatic hyperplasia without lower urinary tract symptoms; H54.8 Legal blindness, as defined in USA; E78.5 Hyperlipidemia, unspecified; M10.9 Gout, unspecified; Z79.4 Long term (current) use of insulin; Z79.82 Long term (current) use of aspirin; Z79.899 Other long term (current) drug therapy; Z82.49 Family history of ischemic heart disease and other diseases of the circulatory system; Z83.3 Family history of diabetes mellitus; Z86.73 Personal history of transient ischemic attack (TIA), and cerebral infarction without residual deficits; Z91.041 Radiographic dye allergy status
CPT/HCPCS: 43239; 88305; J2001; J2704

== ENCOUNTER → 2021-01-11 | Outpatient (CLI) | payer MEDICARE | END | disposition home or self-care (01) | LOC: LABWHC1 13:30 | PROVIDERS: ATTEND Surgery | DX: Z01.818 Encounter for other preprocedural examination (principal); K21.00 Gastro-esophageal reflux disease with esophagitis, without bleeding; I51.7 Cardiomegaly; D64.9 Anemia, unspecified; F17.200 Nicotine dependence, unspecified, uncomplicated; R00.1 Bradycardia, unspecified; R94.31 Abnormal electrocardiogram [ECG] [EKG] | CPT/HCPCS: 93005 ==

== ENCOUNTER 2021-01-23 09:30 | Observation (INO) | payer MEDICARE ==
[~2021-01-23 09:30] MED LIST changes: +ACETAMINOPHEN TAB 500 MG TAB PO PRN; +DEXAMETHASONE SOD PHOSPHATE 4 MG/ML 1 ML VIAL IV ONE; +HEPARIN SODIUM,PORCINE/PF 5,000 UNIT/0.5 ML SYRINGE SQ PRN; -LIDOCAINE 1% (10MG/ML) FOR IV START INTRADERMA PRN; +ONDANSETRON 4 MG/2 ML VIAL IVP ONE
[2021-01-23 10:05] LABS: Glucose,Whole Blood 208 mg/dL (75-99)
[2021-01-23] MEDS: LACTATED RINGERS 1,000 ML IV SCH ×2 (10:10→12:49)
[2021-01-23] MEDS ORDERED: ROCURONIUM 10 MG/ML (5 ML VIAL) IV ONE (10:15)
[2021-01-23] MEDS ORDERED: GLYCOPYRROLATE 0.2 MG/ML 2 ML VIAL ONE (10:15)
[2021-01-23] MEDS ORDERED: MIDAZOLAM 2 MG/2 ML VIAL ONE (10:15)
[2021-01-23] MEDS ORDERED: SUCCINYLCHOLINE CHLORIDE 100 MG/5 ML SYR IV ONE (10:15)
[2021-01-23] MEDS ORDERED: PROPOFOL 10 MG/ML 20 ML VIAL IV ONE (10:15)
[2021-01-23] MEDS ORDERED: fentaNYL (PF) 50 MCG/ML 2 ML AMP ONE (10:15)
[2021-01-23] MEDS ORDERED: ePHEDrine SULFATE/0.9% NACL/PF 50 MG/5 ML SYRINGE IV ONE (10:15)
[2021-01-23] MEDS ORDERED: LIDOCAINE 1% INJ 10MG/ML (20 ML MDV) ONE (10:15)
[2021-01-23] MEDS ORDERED: NEOSTIGMINE 1 MG/ML 10 ML VIAL ONE (10:15)
[2021-01-23] MEDS ORDERED: KETOROLAC 15 MG/ML 1 ML VIAL ONE (10:15)
--- NOTE | 2021-01-23 10:17 | P.GSHP ---
History of Present Illness H&P Date: 01/23/21 Chief Complaint: GERD This 55-year-old male with history of GERD and dysphagia. The patient has had long-standing problems with reflux esophagitis. The patient underwent recent EGD is found have evidence of esophagitis. Patient has been well informed on the procedure of laparoscopic Chacha fundoplication. The patient is aware the risk of the conversion to the open procedure, risk of injury to the stomach, liver and spleen. The patient is also a risk of recurrent GERD and dysphagia symptoms. The patient understands there is a postoperative diet of full liquids for 2 weeks after surgery. Past Medical History Past Medical History: Coronary Artery Disease (CAD), CVA/TIA, Diabetes Mellitus, GERD/Reflux, Hyperlipidemia, Hypertension, Myocardial Infarction ([place]), Renal Disease, Rheumatoid Arthritis (RA) Additional Past Medical History / Comment(s): stroke apr 2017, migranes, diabetic neuropathy arms and legs, stage 3 kidney failure, PANCREATITIS, LEGALLY BLIND, enlarged prostate, trouble urinating, GOUT Last Myocardial Infarction Date:: 2014? not sure History of Any Multi-Drug Resistant Organisms: None Reported Past Surgical History: Cholecystectomy, Heart Catheterization With Stent, Heart Catheterization With Stent Additional Past Surgical History / Comment(s): Prostrate surgery Past Anesthesia/Blood Transfusion Reactions: No Reported Reaction Additional Past Anesthesia/Blood Transfusion Reaction / Comment(s): never had anethesia Date of Last Stent Placement:: 2017 Smoking Status: Never smoker - Past Family History Mother Family Medical History: CVA/TIA, Diabetes Mellitus, Hypertension Additional Family Medical History / Comment(s): Parkinson's Mother Father Family Medical History: CVA/TIA, Diabetes Mellitus, Myocardial Infarction ([place]) Additional Family Medical History / Comment(s): Father of a [place] in his 50s. Medications and Allergies Home Medications Medication Instructions Recorded Confirmed Type Pantoprazole [Protonix] 40 mg PO BID@1000,0 11/05/17 01/21/21 History Tamsulosin [Flomax] 0.4 mg PO BID@1000,0 11/05/17 01/21/21 History Citalopram Hydrobromide [CeleXA] 20 mg PO DAILY@1000 12/12/18 01/21/21 History allopurinoL [Zyloprim] 100 mg PO BID@1000,2200 04/05/19 01/21/21 History hydrALAZINE HCL [Apresoline] 100 mg PO BID@1000,0 04/05/19 01/21/21 History sitaGLIPtin [Januvia] 100 mg PO DAILY@99904/05/19 01/21/21 History Clopidogrel Bisulfate [Plavix] 75 mg PO HS@219904/06/19 01/21/21 History Glimepiride [Amaryl] 4 mg PO BID@1000,219909/07/19 01/21/21 History Lurasidone HCl [Latuda] 80 mg PO HS@219909/07/19 01/21/21 History Aspirin 81 mg PO DAILY@99912/30/19 01/21/21 History Atorvastatin [Lipitor] 80 mg PO HS@219912/30/19 01/21/21 History Isosorbide Mononitrate ER [Imdur] 60 mg PO DAILY@99912/30/19 01/21/21 History Metoprolol Succinate (ER) [Toprol 50 mg PO DAILY@99912/30/19 01/21/21 History XL] Citalopram Hydrobromide [CeleXA] 40 mg PO DAILY@99906/29/20 01/21/21 History Furosemide [Lasix] 40 mg PO DAILY@99906/29/20 01/21/21 History Gabapentin [Neurontin] 300 mg PO BID@999,219906/29/20 01/21/21 History Insulin Detemir (Levemir) [Levemir] 25 unit SQ HS@219906/29/20 01/21/21 History Acetaminophen Tab [Tylenol Tab] 650 mg PO Q4H PRN #30 tablet 07/05/20 01/21/21 Rx Ondansetron Odt [Zofran Odt] 4 mg PO Q8HR PRN #10 tab 09/25/20 01/21/21 Rx Metoclopramide [Reglan] 10 mg PO TID PRN #15 tab 11/26/20 01/21/21 Rx Procrit Unknown Dose 40 mcg SQ Q14D 12/26/20 01/21/21 History Loratadine [Claritin] 10 mg PO DAILY 01/21/21 01/21/21 History Allergies Allergy/AdvReac Type Severity Reaction Status Date / Time sucralfate Allergy Nausea & Verified 01/21/21 11:05 Vomiting Iodinated Contrast Media AdvReac Nausea & Verified 01/21/21 10:53 [Iodinated Contrast- Oral Vomiting and IV Dye] Surgical - Exam Vital Signs Temp Pulse Resp BP Pulse Ox 97.0 F L 58 L 16 149/70 98 01/23/21 10:01 01/23/21 10:01 01/23/21 10:01 01/23/21 10:01 01/23/21 10:01 - General well developed, well nourished, no distress - Eyes PERRL - ENT normal pinna - Neck no masses - Respiratory normal expansion - Cardiovascular Rhythm: regular - Abdomen Abdomen: soft, non tender Results - Labs Abnormal Lab Results - Last 24 Hours (Table) 01/23/21 Range/Units 10:03 POC Glucose (mg/dL) 208 H (75-99) mg/dL Assessment and Plan Assessment: GERD. We'll perform laparoscopic Chacha fundoplication.
[2021-01-23] MEDS ORDERED: LIDOCAINE 1%-EPI 1:100,000 20 ML VIAL SQ ONE (10:47)
[2021-01-23] MEDS ORDERED: ONDANSETRON 4 MG/2 ML VIAL IVP PRN (11:25)
[2021-01-23] MEDS: HYDROmorphone 0.5 MG/0.5 ML SYRINGE IVP PRN ×2 (12:01→12:16)
--- NOTE | 2021-01-23 12:49 | P.OP ---
Date of Procedure: 01/23/21 Preoperative Diagnosis: GERD Postoperative Diagnosis: GERD Procedure(s) Performed: Laparoscopic Chacha fundal plication Anesthesia: JAYA Surgeon: Evan Kuo Estimated Blood Loss (ml): 5 Pathology: none sent Condition: stable Disposition: PACU Description of Procedure: Armani patient was placed on the operating table in the supine position. The patient received general anesthesia. And was placed in dorsal lithotomy position. The patient was prepped and draped in the usual sterile fashion. The skin incision sites were anesthetized with 1% local Xylocaine. The skin was incised in the left periumbilical area and then using a blade less 5 mm trocar under direct visualization panel cavity was entered. After adequate insufflation the laparoscope was then placed into the peritoneal cavity. Next a 5 mm trochars placed in the right epigastric position. Another 5 millimeter trocar the right lateral position. Another 5 millimeter trocar in the left lateral position a 5 mm trocar is placed in the left epigastric position. And then the initial 5 mm trocar was exchanged for a 10 mm trocar. The left lateral lobe liver was retracted. The hernia was seen. The crural defect was then dissected using the Harmonic scissors device. A 360 crural dissection was performed the esophagus stomach was reduced back into the peritoneal Cavity. The crural defect was then closed using 2-0 Ethibond suture. Next the fundus of the stomach was mobilized using the [place] scissors device. and then a 58- Ukrainian bougie dilator was placed oropharynx passed into the esophagus and stomach the fundal plication wrap was then performed by grasping the fundus pos teriorly and bringing it around the esophagus and stomach fundoplication was then performed using 2-0 Ethibond suture. Care was taken that the fundal location rested over top of the intra-abdominal esophagus. There was no injury seen to the stomach or esophagus. The dilator was then withdrawn. The abdomen was irrigated there is no bleeding seen. The trochars were then withdrawn and then skin incision sites were closed using 3-0 Monocryl suture Steri-Strips are applied. Patient thought procedure well and sent to recovery room in stable condition.
[2021-01-23 12:53] LABS: Glucose,Whole Blood 266 mg/dL (75-99)
[2021-01-23] MEDS ORDERED: INSULIN ASPART (NovoLOG) 100 UNIT/ML VIAL SQ ONE (13:00)
[2021-01-23] MEDS ORDERED: ONDANSETRON ODT 4 MG TAB PO PRN (14:06)
[2021-01-23] MEDS ORDERED: METOCLOPRAMIDE 10 MG TAB PO PRN (14:06)
[2021-01-23] MEDS ORDERED: ACETAMINOPHEN TAB 325 MG TAB PO PRN (14:06)
--- NOTE | 2021-01-23 15:29 | P.CONS ---
History of Present Illness - Reason for Consult Consult date: 01/23/21 management of diabetes Requesting physician: Evan Kuo - History of Present Illness This is a pleasant 55-year-old male, who underwent a laparoscopic Shin fundoplication today for a history of gastroesophageal reflux disease. Patient has been maintained on Protonix twice a day for this. Patient is a past medical history significant for hypertension, hyperlipidemia, type II diabetic uncontrolled, history of diabetic neuropathy, chronic kidney disease stage III with a baseline creatinine of 1.8, history of GERD, history of depression. Patient does follow with cardiology services for history of coronary artery disease last echo performed in January 2019 shows an ejection fraction of 55-60%, patient additionally has a history of chronic diastolic congestive heart failure with mild mitral regurgitation, patient had stenting completed in January 2019 to the LAD. Patient has a resumed on his home medications including Januvia, and Levemir and will check blood glucose before meals at bedtime, patient has also been resumed on hydralazine metoprolol Imdur aspirin Plavix and Lipitor. Patient denies abdominal pain, denies bloating, denies passing status. Patient does report some mild pain in his bilateral shoulders most likely positional from surgery. Patient is requesting some IV pain medication. REVIEW OF SYSTEMS: CONSTITUTIONAL: No fever, no malaise, no fatigue. HEENT: No recent visual problems or hearing problems. Denied any sore throat. CARDIOVASCULAR: No chest pain, orthopnea, PND, no palpitations, no syncope. PULMONARY: No shortness of breath, no cough, no hemoptysis. GASTROINTESTINAL: No diarrhea, no nausea, no vomiting, no abdominal pain. NEUROLOGICAL: No headaches, no weakness, no numbness. HEMATOLOGICAL: Denies any bleeding or petechiae. GENITOURINARY: Denies any burning micturition, frequency, or urgency. MUSCULOSKELETAL/RHEUMATOLOGICAL: Denies any joint pain, swelling, or any muscle pain. ENDOCRINE: Denies any polyuria or polydipsia. The rest of the 14-point review of systems is negative. PHYSICAL EXAMINATION: GENERAL: The patient is alert and oriented x3, not in any acute distress. Well developed, well nourished. HEENT: Pupils are round and equally reacting to light. EOMI. No scleral icterus. No conjunctival pallor. Normocephalic, atraumatic. No pharyngeal erythema. No thyromegaly. CARDIOVASCULAR: S1 and S2 present. No murmurs, rubs, or gallops. PULMONARY: Chest is clear to auscultation, no wheezing or crackles. ABDOMEN: Soft, tender, nondistended, hyperactive bowel sounds. No palpable organomegaly. MUSCULOSKELETAL: No joint swelling or deformity. EXTREMITIES: No cyanosis, clubbing, or pedal edema. NEUROLOGICAL: Gross neurological examination did not reveal any focal deficits. SKIN: No rashes. Assessment Diabetes type 2, uncontrolled -Hypertension, maintained on Imdur and Toprol Hyperlipidemia maintained on Lipitor Diabetic neuropathy related to uncontrolled type 2 diabetes Depression GERD Chronic kidney disease stage III related to uncontrolled type 2 diabetes Coronary artery disease history of previous stenting to the LAD maintained on aspirin and Plavix Chronic diastolic congestive heart failure, ejection fraction 55-60%, not in acute exacerbation - Laparoscopic Shin fundoplication DVT prophylaxis - Lovenox GI prophylaxis - Protonix Plan Patient gabapentin has been decreased to 200 mg by mouth twice a day related to his creatinine will recheck in the morning. patient is resumed on his home dose of diabetic medications, we'll check blood sugars before meals at bedtime. Vincent solis is resumed all her appropriate home medications, will monitor vital signs and daily labs and make recommendations as needed. Patient on pain management and nausea management via surgical services. Encourage ambulation, encourage incentive spirometry, pain management in the form of IV Dilaudid. Results are pending from his upper GI, pending Chacha liquid diet from surgical services. Thank you for this consultation. Past Medical History Past Medical History: Coronary Artery Disease (CAD), CVA/TIA, Diabetes Mellitus, GERD/Reflux, Hyperlipidemia, Hypertension, Myocardial Infarction ([place]), Renal Disease, Rheumatoid Arthritis (RA) Additional Past Medical History / Comment(s): stroke apr 2017, migranes, diabetic neuropathy arms and legs, stage 3 kidney failure, PANCREATITIS, LEGALLY BLIND, enlarged prostate, trouble urinating, GOUT Last Myocardial Infarction Date:: 2014? not sure History of Any Multi-Drug Resistant Organisms: None Reported Past Surgical History: Cholecystectomy, Heart Catheterization With Stent, Heart Catheterization With Stent Additional Past Surgical History / Comment(s): Prostrate surgery Past Anesthesia/Blood Transfusion Reactions: No Reported Reaction Additional Past Anesthesia/Blood Transfusion Reaction / Comm: never had anethesia Date of Last Stent Placement:: 2017 Smoking Status: Never smoker - Past Family History Mother Family Medical History: CVA/TIA, Diabetes Mellitus, Hypertension Additional Family Medical History / Comment(s): Parkinson's Mother Father Family Medical History: CVA/TIA, Diabetes Mellitus, Myocardial Infarction ([place]) Additional Family Medical History / Comment(s): Father of a [place] in his 50s. Medications and Allergies Home Medications Medication Instructions Recorded Confirmed Type Pantoprazole [Protonix] 40 mg PO BID@1000,219911/05/17 01/21/21 History Tamsulosin [Flomax] 0.4 mg PO BID@1000,219911/05/17 01/21/21 History Citalopram Hydrobromide [CeleXA] 20 mg PO DAILY@99912/12/18 01/21/21 History allopurinoL [Zyloprim] 100 mg PO BID@999,219904/05/19 01/21/21 History hydrALAZINE HCL [Apresoline] 100 mg PO BID@999,219904/05/19 01/21/21 History sitaGLIPtin [Januvia] 100 mg PO DAILY@99904/05/19 01/21/21 History Clopidogrel Bisulfate [Plavix] 75 mg PO HS@219904/06/19 01/21/21 History Glimepiride [Amaryl] 4 mg PO BID@1000,219909/07/19 01/21/21 History Lurasidone HCl [Latuda] 80 mg PO HS@219909/07/19 01/21/21 History Aspirin 81 mg PO DAILY@99912/30/19 01/21/21 History Atorvastatin [Lipitor] 80 mg PO HS@219912/30/19 01/21/21 History Isosorbide Mononitrate ER [Imdur] 60 mg PO DAILY@99912/30/19 01/21/21 History Metoprolol Succinate (ER) [Toprol 50 mg PO DAILY@99912/30/19 01/21/21 History XL] Citalopram Hydrobromide [CeleXA] 40 mg PO DAILY@99906/29/20 01/21/21 History Furosemide [Lasix] 40 mg PO DAILY@99906/29/20 01/21/21 History Gabapentin [Neurontin] 300 mg PO BID@1000,2200 06/29/20 01/21/21 History Insulin Detemir (Levemir) [Levemir] 25 unit SQ HS@2200 06/29/20 01/21/21 History Acetaminophen Tab [Tylenol Tab] 650 mg PO Q4H PRN #30 tablet 07/05/20 01/21/21 Rx Ondansetron Odt [Zofran Odt] 4 mg PO Q8HR PRN #10 tab 09/25/20 01/21/21 Rx Metoclopramide [Reglan] 10 mg PO TID PRN #15 tab 11/26/20 01/21/21 Rx Procrit Unknown Dose 40 mcg SQ Q14D 12/26/20 01/21/21 History Loratadine [Claritin] 10 mg PO DAILY 01/21/21 01/21/21 History Allergies Allergy/AdvReac Type Severity Reaction Status Date / Time sucralfate Allergy Nausea & Verified 01/21/21 11:05 Vomiting Iodinated Contrast Media AdvReac Nausea & Verified 01/21/21 10:53 [Iodinated Contrast- Oral Vomiting and IV Dye] Physical Exam Vitals: Vital Signs Temp Pulse Resp BP Pulse Ox 01/23/21 14:00 98.4 F 71 16 165/72 93 L 01/23/21 12:45 69 16 156/77 9 L 01/23/21 12:30 72 16 160/74 98 01/23/21 12:15 74 16 163/80 97 01/23/21 12:00 77 16 181/88 99 01/23/21 11:45 75 16 180/85 99 01/23/21 11:32 96.8 F L 74 16 192/88 99 01/23/21 10:01 97.0 F L 58 L 16 149/70 98 Intake and Output 01/22/21 01/23/21 01/23/21 22:59 06:59 14:59 Intake Total 1000 Output Total 5 Balance 995 Intake: IV 1000 Output: Estimated Blood Loss 5 Other: Weight 81.6 kg Results Labs: Abnormal Lab Results - Last 24 Hours (Table) 01/23/21 01/23/21 Range/Units 10:03 12:51 POC Glucose (mg/dL) 208 H 266 H (75-99) mg/dL
[2021-01-23] MEDS: HYDROmorphone 1 MG/ML 1 ML SYRINGE IVP PRN ×2 (15:31→21:17)
--- NOTE | 2021-01-23 16:31 | FL ---
EXAMINATION TYPE: FL esophagus cervic/pharynx DATE OF EXAM: 01/23/2021 COMPARISON: 12/17/2020 HISTORY: Post Shin fundoplication TECHNIQUE: Single contrast technique is utilized with Isovue 300. FINDINGS: Esophagus dilation normal caliber. A few tertiary contractions are evident. There is marked hesitancy of the contrast passing through the knee; fundoplication. However, this opens and allows f or passage of contrast. No extravasation of contrast is evident. Moderate residual remains within the distal esophagus during the exam. Multiple tertiary contractions were evident. There is a moderately large amount of free air under the diaphragms during this exam. IMPRESSION: 1. No extravasation of contrast during the exam. 2. Marked hesitancy passing through the ascending fundoplication surgery site. 3. Prominent free air under the diaphragms.
[2021-01-23] MEDS: D5-0.45% NACL WITH KCL 20MEQ/L 1,000 ML IV SCH (16:56)
[2021-01-23 17:06] LABS: Glucose,Whole Blood 205 mg/dL (75-99)
[2021-01-23 21:12] LABS: Glucose,Whole Blood 274 mg/dL (75-99)
[2021-01-23] MEDS: allopurinoL 100 MG TAB PO SCH (21:15)
[2021-01-23] MEDS: TAMSULOSIN 0.4 MG CAP.ER.24H PO SCH (21:15)
[2021-01-23] MEDS: GABAPENTIN 100 MG CAP PO SCH (21:15)
[2021-01-23] MEDS: LURASIDONE 80 MG TAB PO SCH (21:16)
[2021-01-23] MEDS: CLOPIDOGREL 75 MG TAB PO SCH (21:16)
[2021-01-23] MEDS: INSULIN DETEMIR (LEVEMIR) 100 UNIT/ML SYR SQ SCH (21:16)
[2021-01-23] MEDS: ATORVASTATIN 80 MG TAB PO SCH (21:16)
[2021-01-23] MEDS: GLIMEPIRIDE 4 MG TAB PO SCH (21:16)
[2021-01-23] MEDS: PANTOPRAZOLE 40 MG TABLET PO SCH (21:16)
[2021-01-24] MEDS: D5-0.45% NACL WITH KCL 20MEQ/L 1,000 ML IV SCH ×2 (01:48→04:00)
[2021-01-24] MEDS: HYDROmorphone 1 MG/ML 1 ML SYRINGE IVP PRN ×3 (01:48→20:27)
[2021-01-24 06:46] LABS: Glucose,Whole Blood 152 mg/dL (75-99)
[2021-01-24] MEDS: CITALOPRAM HYDROBROMIDE 20 MG TAB PO SCH (08:38)
[2021-01-24] MEDS: ENOXAPARIN 40 MG/0.4 ML SYRINGE SQ SCH (08:38)
[2021-01-24] MEDS: GABAPENTIN 100 MG CAP PO SCH (08:39)
[2021-01-24] MEDS: GLIMEPIRIDE 4 MG TAB PO SCH ×2 (08:39→20:27)
[2021-01-24] MEDS: ASPIRIN 81 MG PO SCH (08:39)
[2021-01-24] MEDS: METOPROLOL SUCCINATE (ER) 50 MG TAB.ER.24H PO SCH (08:39)
[2021-01-24] MEDS: LINAGLIPTIN 5 MG TABLET PO SCH (08:40)
[2021-01-24] MEDS: LORATADINE 10 MG TAB PO SCH (08:40)
[2021-01-24] MEDS: TAMSULOSIN 0.4 MG CAP.ER.24H PO SCH ×2 (08:40→20:27)
[2021-01-24] MEDS: ISOSORBIDE MONONITRATE ER 60 MG TAB.ER.24H PO SCH (08:40)
[2021-01-24] MEDS: PANTOPRAZOLE 40 MG TABLET PO SCH ×2 (08:40→20:27)
[2021-01-24] MEDS: allopurinoL 100 MG TAB PO SCH ×2 (08:40→20:27)
[2021-01-24] MEDS ORDERED: NON FORMULARY DRUG (Citalopram Hydrobromide [Celexa] 40 MG Tablet) PO SCH (10:00)
[2021-01-24 11:38] LABS: Glucose,Whole Blood 125 mg/dL (75-99)
[2021-01-24] MEDS: DARBEPOETIN ALFA 40 MCG/0.4 ML SYRINGE SQ SCH (12:14)
--- NOTE | 2021-01-24 13:28 | P.PN ---
Subjective Progress Note Date: 01/24/21 CHIEF COMPLAINT: GERD HISTORY OF PRESENT ILLNESS: Patient is status post laparoscopic Chacha fundoplication. Patient denies any difficulty with swallowing. Upper GI shows no extravasation of contrast. Marked hesitancy passing through the ascending fundoplication surgery site. Prominent free air under the diaphragms. Which is expected after surgery. Afebrile. Patient had urinary retention and required be straight cathed. Patient's blood pressure is also elevated. Case was discussed with medicine service. And they have ordered another bladder scan. Patient's Flomax was restarted. Patient does report that his pain is controlled. He did complain of some gas pains up into the shoulders. Denies any nausea or vomiting. PHYSICAL EXAM: VITAL SIGNS: Reviewed. GENERAL: Well-developed in no acute distress. HEENT: No sclera icterus. Extraocular movements grossly intact. Moist buccal mucosa. Head is atraumatic, normocephalic. ABDOMEN: Soft. Nondistended. Incision sites clean dry and intact NEUROLOGIC: Alert and oriented. Cranial nerves II through XII grossly intact. ASSESSMENT: 1. GERD status post laparoscopic Chacha fundoplication PLAN: -Continue Chacha clear liquid diet -Consult placed for a dietitian for education -Encourage patient to ambulate -Encouraged to use incentive spirometer -Consult physical therapy -Medical service to manage hypertension -Continue monitor for urinary retention. -GI prophylaxis Protonix and DVT prophylaxis Lovenox Physician Distribution Field Engineer note has been reviewed by physician. Signing provider agrees with the documented findings, assessment, and plan of care. Objective - Vital Signs Vital signs: Vital Signs Temp 97.6 F 01/24/21 07:38 Pulse 66 01/24/21 11:24 Resp 18 01/24/21 08:43 BP 190/83 01/24/21 11:24 Pulse Ox 97 01/24/21 07:38 Intake & Output 01/23/21 01/24/21 01/24/21 18:59 06:59 18:59 Intake Total 1000 Output Total 5 1800 1200 Balance 995 -1800 -1200 Weight 81.6 kg Intake: IV 1000 Output: Urine 1800 1200 Straight 900 600 Estimated Blood Loss 5 Other: Voiding Method Urinal Urinal - Labs Labs: Abnormal Lab Results - Last 24 Hours (Table) 01/23/21 01/23/21 01/24/21 Range/Units 17:04 21:05 06:45 POC Glucose (mg/dL) 205 H 274 H 152 H (75-99) mg/dL 01/24/21 Range/Units 11:37 POC Glucose (mg/dL) 125 H (75-99) mg/dL
[2021-01-24 15:04] VITALS: BMI 26.5
--- NOTE | 2021-01-24 15:14 | P.PN ---
Subjective Progress Note Date: 01/24/21 This is a pleasant 55-year-old male, who underwent a laparoscopic Shin fundoplication today for a history of gastroesophageal reflux disease. Patient has been maintained on Protonix twice a day for this. Patient is a past medical history significant for hypertension, hyperlipidemia, type II diabetic uncontrolled, history of diabetic neuropathy, chronic kidney disease stage III with a baseline creatinine of 1.8, history of GERD, history of depression. Patient does follow with cardiology services for history of coronary artery disease last echo performed in January 2019 shows an ejection fraction of 55-60%, patient additionally has a history of chronic diastolic congestive heart failure with mild mitral regurgitation, patient had stenting completed in January 2019 to the LAD. Patient has a resumed on his home medications including Januvia, and Levemir and will check blood glucose before meals at bedtime, patient has also been resumed on hydralazine metoprolol Imdur aspirin Plavix and Lipitor. Patient denies abdominal pain, denies bloating, denies passing status. Patient does report some mild pain in his bilateral shoulders most likely positional from surgery. Patient is requesting some IV pain medication. 01/24/2021 Patient is postop day 1 from a laparoscopic Chacha fundoplication. Patient is evaluated today in the chair today he states that he is still having significant pain in his bilateral shoulders most of the positional from surgery patient receiving pain medication in the form of by mouth Tylenol. IV Dilaudid has been discontinued at this time. Patient has a history of BPH with a partial prostate resection. Patient is maintained on Flomax for this. Patient was having difficulty urinating. A straight gagan times one on the midnight shift was completed on the midnight shift. At the time of my examination patient has stated he had not urinated since the night before. Patient was then straight cathed for a total of 600 mg of urine output by nursing. Patient needs to be straight cathed again then a Garcia catheter may be inserted. Patient denies any abdominal pain, states that he is tolerating a liquid diet. Patient denies chest pain, cough, shortness of breath. Patient's blood pressure was elevated this morning at 197/85. Continue to monitor patient has been resumed on home blood pressure medication. Continue all current medications. Further recommendations via surgical services. PHYSICAL EXAMINATION: GENERAL: The patient is alert and oriented x3, not in any acute distress. Well developed, well nourished. HEENT: Pupils are round and equally reacting to light. EOMI. No scleral icterus. No conjunctival pallor. Normocephalic, atraumatic. No pharyngeal erythema. No thyromegaly. CARDIOVASCULAR: S1 and S2 present. No murmurs, rubs, or gallops. PULMONARY: Chest is clear to auscultation, no wheezing or crackles. ABDOMEN: Soft, tender, distended, hyperactive bowel sounds. No palpable organomegaly. MUSCULOSKELETAL: No joint swelling or deformity. EXTREMITIES: No cyanosis, clubbing, or pedal edema. NEUROLOGICAL: Gross neurological examination did not reveal any focal deficits. SKIN: No rashes. Assessment Diabetes type 2, uncontrolled -Hypertension, maintained on Imdur and Toprol Hyperlipidemia maintained on Lipitor Diabetic neuropathy related to uncontrolled type 2 diabetes -BPH s/p partial prostatectomy, maintained on flomax, follows up with urology Depression GERD Chronic kidney disease stage III related to uncontrolled type 2 diabetes Coronary artery disease history of previous stenting to the LAD maintained on aspirin and Plavix Chronic diastolic congestive heart failure, ejection fraction 55-60%, not in acute exacerbation - Laparoscopic Shin fundoplication DVT prophylaxis - Lovenox GI prophylaxis - Protonix Urinary retention, complication related to anesthesia and pain medication, history of BPH. Patient continues on Flomax, insert indwelling catheter if patient continues to retain urine and follow-up with Dr. Bermudez outpatient. Plan Patient gabapentin has been decreased to 200 mg by mouth twice a day related to his creatinine will recheck in the morning. patient is resumed on his home dose of diabetic medications, we'll check blood sugars before meals at bedtime. Patient is resumed all her appropriate home medications, will monitor vital signs and daily labs and make recommendations as needed. Patient on pain management and nausea management via surgical services. Encourage ambulation, encourage incentive spirometry, pain management in the form of IV Dilaudid has been discontinued in lieu of urinary retention, patient is continued on by mouth Tylenol. Patient has been straight cathed 2, if patient continues to retain urine patient then may have a full a catheter placed. Patient will follow-up with urological services outpatient. Continue to monitor blood pressure. Patient is on a Shin clear liquid diet via surgical services. Thank you for this consultation. Objective - Vital Signs Vital signs: Vital Signs Temp 97.6 F 01/24/21 07:38 Pulse 66 01/24/21 11:24 Resp 18 01/24/21 08:43 BP 190/83 01/24/21 11:24 Pulse Ox 97 01/24/21 07:38 Intake & Output 01/23/21 01/24/21 01/24/21 18:59 06:59 18:59 Intake Total 1000 Output Total 5 1800 1200 Balance 995 -1800 -1200 Weight 81.6 kg Intake: IV 1000 Output: Urine 1800 1200 Straight 900 600 Estimated Blood Loss 5 Other: Voiding Method Urinal Urinal - Labs Labs: Abnormal Lab Results - Last 24 Hours (Table) 01/23/21 01/23/21 01/24/21 Range/Units 17:04 21:05 06:45 POC Glucose (mg/dL) 205 H 274 H 152 H (75-99) mg/dL 01/24/21 Range/Units 11:37 POC Glucose (mg/dL) 125 H (75-99) mg/dL Assessment and Plan Time with Patient: Greater than 30
[2021-01-24 16:46] LABS: Glucose,Whole Blood 146 mg/dL (75-99)
[2021-01-24 20:11] LABS: Glucose,Whole Blood 141 mg/dL (75-99)
[2021-01-24] MEDS: CLOPIDOGREL 75 MG TAB PO SCH (20:27)
[2021-01-24] MEDS: INSULIN DETEMIR (LEVEMIR) 100 UNIT/ML SYR SQ SCH (20:27)
[2021-01-24] MEDS: ATORVASTATIN 80 MG TAB PO SCH (20:27)
[2021-01-24] MEDS: LURASIDONE 80 MG TAB PO SCH (20:27)
[2021-01-24] MEDS ORDERED: GABAPENTIN 100 MG CAP PO ONE (20:30)
[2021-01-25] MEDS: D5-0.45% NACL WITH KCL 20MEQ/L 1,000 ML IV SCH ×2 (04:24→04:26)
[2021-01-25] MEDS: LACTATED RINGERS 1,000 ML IV SCH (04:25)
[2021-01-25 07:25] LABS: Glucose,Whole Blood 66 mg/dL (75-99)
[2021-01-25] MEDS: PANTOPRAZOLE 40 MG TABLET PO SCH (07:30)
[2021-01-25] MEDS: LORATADINE 10 MG TAB PO SCH (07:31)
[2021-01-25] MEDS: CITALOPRAM HYDROBROMIDE 20 MG TAB PO SCH (07:31)
[2021-01-25] MEDS: ISOSORBIDE MONONITRATE ER 60 MG TAB.ER.24H PO SCH (07:31)
[2021-01-25] MEDS: ASPIRIN 81 MG PO SCH (07:31)
[2021-01-25] MEDS: GABAPENTIN 100 MG CAP PO SCH (07:31)
[2021-01-25] MEDS: allopurinoL 100 MG TAB PO SCH (07:31)
[2021-01-25] MEDS: ENOXAPARIN 40 MG/0.4 ML SYRINGE SQ SCH (07:32)
[2021-01-25] MEDS: METOPROLOL SUCCINATE (ER) 50 MG TAB.ER.24H PO SCH (07:32)
[2021-01-25 08:26] VITALS: RESP 16
[2021-01-25] MEDS ORDERED: amLODIPine 5 MG TAB PO SCH (09:45)
[2021-01-25 10:08] LABS: Glucose,Whole Blood 298 mg/dL (75-99)
[2021-01-25] MEDS: GLIMEPIRIDE 4 MG TAB PO SCH (10:08)
[2021-01-25] MEDS: LINAGLIPTIN 5 MG TABLET PO SCH (10:08)
[2021-01-25] MEDS: TAMSULOSIN 0.4 MG CAP.ER.24H PO SCH (10:09)
[2021-01-25 11:31] LABS: Basophils # (A) 0.03 X 10*3/uL (0.00-0.10); Basophils % (A) 0.4 %; Eosinophils # (A) 0.06 X 10*3/uL (0.04-0.35); Eosinophils % (A) 0.7 %; HCT 25.6 % (39.6-50.0); HGB 8.2 g/dL (13.0-17.0); Lymphocytes # (A) 0.89 X 10*3/uL (0.90-5.00); MCH 29.8 pg (27.0-32.0); MCV 93.1 fL (80.0-97.0); Mean Platelet Volume 9.2 fL (9.5-12.2); Monocytes # (A) 0.68 X 10*3/uL (0.20-1.00); Monocytes % (A) 8.4 %; Neutrophils # (A) 6.39 X 10*3/uL (1.80-7.70); Platelet Count 105 X 10*3/uL (140-440); RBC 2.75 X 10*6/uL (4.40-5.60); RDW 12.7 % (11.5-14.5); WBC 8.09 X 10*3/uL (4.50-10.00)
[2021-01-25 11:51] LABS: Glucose,Whole Blood 187 mg/dL (75-99)
[2021-01-25 13:12] LABS: African American GFR (CKD) 48.7 (60.0-200.0); Anion Gap 6.9 mmol/L (4.00-12.00); BUN/Creat Ratio 11.67 Ratio (12.00-20.00); Calcium 8.4 mg/dL (8.7-10.3); Carbon Dioxide 28.1 mmol/L (21.6-31.8); Potassium 4.9 mmol/L (3.5-5.5)
[2021-01-25] MEDS ORDERED: DARBEPOETIN ALFA 40 MCG/0.4 ML SYRINGE SQ SCH (14:45)
--- NOTE | 2021-01-25 14:49 | P.DS ---
Providers Date of admission: 01/24/21 10:59 Expected date of discharge: 01/25/21 Attending physician: Evan Kuo Consults: 01/23/21 11:25 Consult Physician Routine Consulting Provider: Bryant Pizarro Consult Reason/Comments: Medical management Do you want consulting provider notified?: Yes Primary care physician: Tyler Newton Hospital Course: Discharge diagnosis 1. GERD status post laparoscopic Chacha fundoplication 2. Urinary retention Hospital course This is a 55-year-old male with a known history of GERD. He is status post left scapular Chacha fundoplication. Upper GI shows no extravasation of contrast. Marked hesitancy passing through the ascending fundoplication surgery site. Prominent free air under the diaphragms. He is tolerating Chacha clear liquid diet. He is passing gas. He is up and ambulating. He is afebrile. He is stable for discharge. Patient did have urinary retention and will be discharged with Garcia catheter leg bag. He'll follow-up with urology in the outpatient setting. Please refer to chart for any further details. Physician Airport Engineer note has been reviewed by physician. Signing provider agrees with the documented findings, assessment, and plan of care. Patient Condition at Discharge: Stable Plan - Discharge Summary Discharge Rx Participant: No New Discharge Prescriptions: New HYDROcodone/APAP 5-325MG [Matthews 5-325] 1 tab PO Q6HR PRN 2 Days #8 tab PRN Reason: Pain No Action Pantoprazole [Protonix] 40 mg PO BID@1000,2200 Tamsulosin [Flomax] 0.4 mg PO BID@1000,2200 Citalopram Hydrobromide [CeleXA] 20 mg PO DAILY@1000 sitaGLIPtin [Januvia] 100 mg PO DAILY@1000 allopurinoL [Zyloprim] 100 mg PO BID@1000,2200 hydrALAZINE HCL [Apresoline] 100 mg PO BID@1000,2200 Clopidogrel Bisulfate [Plavix] 75 mg PO HS@2200 Glimepiride [Amaryl] 4 mg PO BID@1000,2200 Lurasidone HCl [Latuda] 80 mg PO HS@2200 Aspirin 81 mg PO DAILY@1000 Metoprolol Succinate (ER) [Toprol XL] 50 mg PO DAILY@1000 Isosorbide Mononitrate ER [Imdur] 60 mg PO DAILY@1000 Atorvastatin [Lipitor] 80 mg PO HS@220 Insulin Detemir (Levemir) [Levemir] 25 unit SQ HS@220 Gabapentin [Neurontin] 300 mg PO BID@999,2199 Furosemide [Lasix] 40 mg PO DAILY@1000 Citalopram Hydrobromide [CeleXA] 40 mg PO DAILY@1000 Acetaminophen Tab [Tylenol Tab] 650 mg PO Q4H PRN #30 tablet PRN Reason: Pain Metoclopramide [Reglan] 10 mg PO TID PRN #15 tab PRN Reason: Nausea Ondansetron Odt [Zofran Odt] 4 mg PO Q8HR PRN #10 tab PRN Reason: Nausea Procrit Unknown Dose 40 mcg SQ Q14D Loratadine [Claritin] 10 mg PO DAILY Discharge Medication List Pantoprazole [Protonix] 40 mg PO BID@1000,219911/05/17 [History] Tamsulosin [Flomax] 0.4 mg PO BID@999,219911/05/17 [History] Citalopram Hydrobromide [CeleXA] 20 mg PO DAILY@99912/12/18 [History] allopurinoL [Zyloprim] 100 mg PO BID@999,219904/05/19 [History] hydrALAZINE HCL [Apresoline] 100 mg PO BID@999,219904/05/19 [History] sitaGLIPtin [Januvia] 100 mg PO DAILY@99904/05/19 [History] Clopidogrel Bisulfate [Plavix] 75 mg PO HS@219904/06/19 [History] Glimepiride [Amaryl] 4 mg PO BID@999,219909/07/19 [History] Lurasidone HCl [Latuda] 80 mg PO HS@219909/07/19 [History] Aspirin 81 mg PO DAILY@99912/30/19 [History] Atorvastatin [Lipitor] 80 mg PO HS@219912/30/19 [History] Isosorbide Mononitrate ER [Imdur] 60 mg PO DAILY@99912/30/19 [History] Metoprolol Succinate (ER) [Toprol XL] 50 mg PO DAILY@99912/30/19 [History] Citalopram Hydrobromide [CeleXA] 40 mg PO DAILY@1000 06/29/20 [History] Furosemide [Lasix] 40 mg PO DAILY@1000 06/29/20 [History] Gabapentin [Neurontin] 300 mg PO BID@1000,2200 06/29/20 [History] Insulin Detemir (Levemir) [Levemir] 25 unit SQ HS@2200 06/29/20 [History] Acetaminophen Tab [Tylenol Tab] 650 mg PO Q4H PRN #30 tablet 07/05/20 [Rx] Ondansetron Odt [Zofran Odt] 4 mg PO Q8HR PRN #10 tab 09/25/20 [Rx] Metoclopramide [Reglan] 10 mg PO TID PRN #15 tab 11/26/20 [Rx] Procrit Unknown Dose 40 mcg SQ Q14D 12/26/20 [History] Loratadine [Claritin] 10 mg PO DAILY 01/21/21 [History] HYDROcodone/APAP 5-325MG [Matthews 5-325] 1 tab PO Q6HR PRN 2 Days #8 tab 01/25/21 [Rx] Follow up Appointment(s)/Referral(s): Lamar Scott MD [Primary Care Provider] - 01/30/21 8:40 am Raj Harris MD [STAFF PHYSICIAN] - 1 Week (Office will call patient with appointment date and time. ) Evna Kuo MD [STAFF PHYSICIAN] - 1 Week Activity/Diet/Wound Care/Special Instructions: Discharge med rec per medicine service No driving while taking Matthews No lifting over 10 pounds You may shower. No soaking or tub baths for 2 weeks Very light activity until you are reevaluated at your follow up appointment with your surgeon No straws or carbonated beverages Discharge with a Garcia catheter leg bag. Patient follow-up with urology in 1 week Discharge Disposition: HOME SELF-CARE
[2021-01-25] MEDS: DARBEPOETIN ALFA 40 MCG/0.4 ML SYRINGE SQ SCH (14:56)
--- NOTE | 2021-01-25 14:58 | P.PN ---
Subjective Progress Note Date: 01/25/21 This is a pleasant 55-year-old male, who underwent a laparoscopic Shin fundoplication today for a history of gastroesophageal reflux disease. Patient has been maintained on Protonix twice a day for this. Patient is a past medical history significant for hypertension, hyperlipidemia, type II diabetic uncontrolled, history of diabetic neuropathy, chronic kidney disease stage III with a baseline creatinine of 1.8, history of GERD, history of depression. Patient does follow with cardiology services for history of coronary artery disease last echo performed in January 2019 shows an ejection fraction of 55-60%, patient additionally has a history of chronic diastolic congestive heart failure with mild mitral regurgitation, patient had stenting completed in January 2019 to the LAD. Patient has a resumed on his home medications including Januvia, and Levemir and will check blood glucose before meals at bedtime, patient has also been resumed on hydralazine metoprolol Imdur aspirin Plavix and Lipitor. Patient denies abdominal pain, denies bloating, denies passing status. Patient does report some mild pain in his bilateral shoulders most likely positional from surgery. Patient is requesting some IV pain medication. 01/24/2021 Patient is postop day 1 from a laparoscopic Chacha fundoplication. Patient is evaluated today in the chair today he states that he is still having significant pain in his bilateral shoulders most of the positional from surgery patient receiving pain medication in the form of by mouth Tylenol. IV Dilaudid has been discontinued at this time. Patient has a history of BPH with a partial prostate resection. Patient is maintained on Flomax for this. Patient was having difficulty urinating. A straight gagan times one on the midnight shift was completed on the midnight shift. At the time of my examination patient has stated he had not urinated since the night before. Patient was then straight cathed for a total of 600 mg of urine output by nursing. Patient needs to be straight cathed again then a Garcia catheter may be inserted. Patient denies any abdominal pain, states that he is tolerating a liquid diet. Patient denies chest pain, cough, shortness of breath. Patient's blood pressure was elevated this morning at 197/85. Continue to monitor patient has been resumed on home blood pressure medication. Continue all current medications. Further recommendations via surgical services. 01/25/2021 Patient is postop day 2 from a laparoscopic Shin fundoplication. Patient has been cleared by surgical services for discharge. Pain management via surgical services. Patient experienced urinary retention postop during this hospital stay. Patient will be discharged with indwelling catheter, and will follow-up with Dr. Harris outpatient. In addition patient was hypertensive, patient was started on Norvasc 5 mg by mouth daily. Current blood pressure 186/84. Patient's hydralazine has been discontinued at this time. Patient can follow-up with his PCP for further recommendations. All other home medications were reconciled and resumed. Patient denies chest pain, cough, shots of breath, abdominal pain at the time of my assessment. Patient states that he is passing gas, denies bowel movement. PHYSICAL EXAMINATION: GENERAL: The patient is alert and oriented x3, not in any acute distress. Well developed, well nourished. HEENT: Pupils are round and equally reacting to light. EOMI. No scleral icterus. No conjunctival pallor. Normocephalic, atraumatic. No pharyngeal erythema. No thyromegaly. CARDIOVASCULAR: S1 and S2 present. No murmurs, rubs, or gallops. PULMONARY: Chest is clear to auscultation, no wheezing or crackles. ABDOMEN: Soft, tender, distended, hyperactive bowel sounds. No palpable organomegaly. MUSCULOSKELETAL: No joint swelling or deformity. EXTREMITIES: No cyanosis, clubbing, or pedal edema. NEUROLOGICAL: Gross neurological examination did not reveal any focal deficits. SKIN: No rashes. Assessment Diabetes type 2, uncontrolled, patient will continue on oral diabetic medication on discharge. Continue to monitor blood sugars. -Hypertension, maintained on Imdur and Toprol, patient was started on Norvasc. Hyperlipidemia maintained on Lipitor Diabetic neuropathy related to uncontrolled type 2 diabetes -BPH s/p partial prostatectomy, maintained on flomax, follows up with urology Depression GERD Chronic kidney disease stage III related to uncontrolled type 2 diabetes Coronary artery disease history of previous stenting to the LAD maintained on aspirin and Plavix Chronic diastolic congestive heart failure, ejection fraction 55-60%, not in acute exacerbation - Laparoscopic Shin fundoplication DVT prophylaxis - Lovenox GI prophylaxis - Protonix Urinary retention, complication related to anesthesia and pain medication, history of BPH. Patient continues on Flomax, indwelling catheter in place follow-up with urology outpatient. Plan Patient plan is for discharge today, follow-up with surgical services, and follow up with urology services. Patient will be discharged with an indwelling Garcia catheter due to urinary retention experienced postop. Patient is maintained on Flomax. Patient will be started on Norvasc this admission for some hypertension. Patient to follow up with his PCP. Patient will be discharged on [place] for pain management from surgical services. Thank you for this consultation. Objective - Vital Signs Vital signs: Vital Signs Temp 98.2 F 01/25/21 08:00 Pulse 70 01/25/21 09:19 Resp 16 01/25/21 08:00 BP 186/84 01/25/21 09:19 Pulse Ox 98 01/25/21 08:00 Intake & Output 01/24/21 01/25/21 01/25/21 18:59 06:59 18:59 Intake Total 120 Output Total 1980 2800 Balance -1861 -2800 Weight 81.6 kg Intake: Intake, IV Titration 120 Amount D5-0.45% NaCl with KCl 120 20Meq/l 1,000 ml @ 125 mls/hr IV .Q8H JAD Rx#: [id number] Output: Urine 1200 2800 Straight 600 Uretheral (Garcia) 1400 Post Void Residual 781 Other: Voiding Method Urinal Urinal Indwelling Catheter # Voids 1,000 - Labs CBC & Chem 7: 01/25/21 07:14 01/25/21 07:14 Labs: Abnormal Lab Results - Last 24 Hours (Table) 01/24/21 01/24/21 01/25/21 Range/Units 16:45 20:09 07:14 RBC 2.75 L (4.40-5.60) X 10*6/uL Hgb 8.2 L (13.0-17.0) g/dL Hct 25.6 L (39.6-50.0) % Plt Count 105 L (140-440) X 10*3/uL MPV 9.2 L (9.5-12.2) fL Lymphocytes # 0.89 L (0.90-5.00) X 10*3/uL Creatinine (0.6-1.5) mg/dL Est GFR (CKD-EPI)AfAm (60.0-200.0) Est GFR (CKD-EPI)NonAf (60.0-200.0) BUN/Creatinine Ratio (12.00-20.00) Ratio POC Glucose (mg/dL) 146 H 141 H (75-99) mg/dL Calcium (8.7-10.3) mg/dL 01/25/21 01/25/21 01/25/21 Range/Units 07:14 07:23 10:05 RBC (4.40-5.60) X 10*6/uL Hgb (13.0-17.0) g/dL Hct (39.6-50.0) % Plt Count (140-440) X 10*3/uL MPV (9.5-12.2) fL Lymphocytes # (0.90-5.00) X 10*3/uL Creatinine 1.8 H (0.6-1.5) mg/dL Est GFR (CKD-EPI)AfAm 48.7 L (60.0-200.0) Est GFR (CKD-EPI)NonAf 42.0 L (60.0-200.0) BUN/Creatinine Ratio 11.67 L (12.00-20.00) Ratio POC Glucose (mg/dL) 66 L 298 H (75-99) mg/dL Calcium 8.4 L (8.7-10.3) mg/dL 01/25/21 Range/Units 11:50 RBC (4.40-5.60) X 10*6/uL Hgb (13.0-17.0) g/dL Hct (39.6-50.0) % Plt Count (140-440) X 10*3/uL MPV (9.5-12.2) fL Lymphocytes # (0.90-5.00) X 10*3/uL Creatinine (0.6-1.5) mg/dL Est GFR (CKD-EPI)AfAm (60.0-200.0) Est GFR (CKD-EPI)NonAf (60.0-200.0) BUN/Creatinine Ratio (12.00-20.00) Ratio POC Glucose (mg/dL) 187 H (75-99) mg/dL Calcium (8.7-10.3) mg/dL Assessment and Plan Time with Patient: Greater than 30
[2021-01-25 16:04] VITALS: BP 174/74; PULSE 62; TEMP 98.5
== END 2021-01-25 16:50 | disposition home or self-care (01) ==
LOC: OR 09:30 → 4SSUR 12:34 → OR 01-24 10:59
PROVIDERS: ADMIT Surgery; ATTEND Surgery
DX: K21.00 Gastro-esophageal reflux disease with esophagitis, without bleeding (principal); R13.19 Other dysphagia; K44.9 Diaphragmatic hernia without obstruction or gangrene; R33.9 Retention of urine, unspecified; N99.89 Other postprocedural complications and disorders of genitourinary system; N40.1 Benign prostatic hyperplasia with lower urinary tract symptoms; I13.0 Hypertensive heart and chronic kidney disease with heart failure and stage 1 through stage 4 chronic kidney disease, or unspecified chronic kidney disease; E11.22 Type 2 diabetes mellitus with diabetic chronic kidney disease; N18.30 Chronic kidney disease, stage 3 unspecified; I50.32 Chronic diastolic (congestive) heart failure; E11.65 Type 2 diabetes mellitus with hyperglycemia; E78.5 Hyperlipidemia, unspecified; E11.40 Type 2 diabetes mellitus with diabetic neuropathy, unspecified; I25.10 Atherosclerotic heart disease of native coronary artery without angina pectoris; I25.2 Old myocardial infarction; M06.9 Rheumatoid arthritis, unspecified; M10.9 Gout, unspecified; H54.8 Legal blindness, as defined in USA; F32.9 Major depressive disorder, single episode, unspecified; Z79.4 Long term (current) use of insulin; Z79.82 Long term (current) use of aspirin; Z79.899 Other long term (current) drug therapy; Z91.041 Radiographic dye allergy status; Z88.8 Allergy status to other drugs, medicaments and biological substances; Z86.73 Personal history of transient ischemic attack (TIA), and cerebral infarction without residual deficits; Z87.19 Personal history of other diseases of the digestive system; Z90.79 Acquired absence of other genital organ(s); Z90.49 Acquired absence of other specified parts of digestive tract; Z95.5 Presence of coronary angioplasty implant and graft; Z82.0 Family history of epilepsy and other diseases of the nervous system; Z82.49 Family history of ischemic heart disease and other diseases of the circulatory system; Z83.3 Family history of diabetes mellitus
CPT/HCPCS: 43280; 97161; 86900; 86901; 80048; 85025; 86850; 74210; G0378 ×2; J2250; J1100; J2710; J0690; J2405; J2001; J1650 ×2; J3010; J1170 ×3; J1885; J0330; J2704; J0881; Q9967; J1644

== ENCOUNTER → 2021-03-07 | Outpatient (CLI) | payer MEDICARE ==
--- NOTE | 2021-03-07 15:07 | FL ---
EXAMINATION TYPE: FL barium swallow DATE OF EXAM: 03/07/2021 CLINICAL INDICATION: 55-year-old male K27.9, peptic ulcer. Patient with history of hiatal hernia repa ir 6 weeks ago. Recurrent dry heaves. COMPARISON: Correlation CT 06/29/2020 Total Fluoroscopy Time: 2 minutes 26 seconds Total images: 67. FINDINGS: The swallowing mechanism is normal and hypopharyngeal anatomy is preserved. The cervical and thoracic portions have a normal course and caliber. Mild to moderate tertiary perist alsis is demonstrated with slight delay in clearance of contrast from the esophagus especially on the patient is supine/prone. The mucosa is normal and no persistent filling defect is encountered. Despite the patient's Chacha fundoplication, there is a small hiatal hernia. Possibly intact wrap bel ow the diaphragm. IMPRESSION: 1. Recurrence of a small hiatal hernia, possibly above the wrap. 2. Mild dysmotility, probably age related change.
== END | disposition home or self-care (01) ==
LOC: RADUSWWP 10:52
PROVIDERS: ATTEND Surgery
DX: K44.9 Diaphragmatic hernia without obstruction or gangrene (principal); Z98.890 Other specified postprocedural states
CPT/HCPCS: 74220

== ENCOUNTER 2021-03-15 06:56 | Day surgery (SDC) | payer MEDICARE ==
[2021-03-14 12:51] VITALS: BMI 28.0
[~2021-03-15 06:56] MED LIST changes: -ACETAMINOPHEN TAB 500 MG TAB PO PRN; -DEXAMETHASONE SOD PHOSPHATE 4 MG/ML 1 ML VIAL IV ONE; -HEPARIN SODIUM,PORCINE/PF 5,000 UNIT/0.5 ML SYRINGE SQ PRN; +LACTATED RINGERS 1,000 ML IV SCH; -ONDANSETRON 4 MG/2 ML VIAL IVP ONE
[2021-03-15 07:28] VITALS: TEMP 97
[2021-03-15 07:30] LABS: Glucose,Whole Blood 153 mg/dL (75-99)
[2021-03-15] MEDS ORDERED: PROPOFOL 10 MG/ML 20 ML VIAL IV ONE (07:57)
--- NOTE | 2021-03-15 08:01 | P.GSHP ---
History of Present Illness H&P Date: 03/15/21 Chief Complaint: Dysphagia Is a 55-year-old male who presents today for EGD. He's had some issues with dysphagia. He is also some complaints of epigastric pain. He has a history of thick ulcer disease. Past Medical History Past Medical History: Coronary Artery Disease (CAD), CVA/TIA, Diabetes Mellitus, GERD/Reflux, Hyperlipidemia, Hypertension, Myocardial Infarction (CA), Prostate Disorder, Renal Disease, Rheumatoid Arthritis (RA) Additional Past Medical History / Comment(s): stroke apr 2017, migraines, diabetic neuropathy arms and legs, stage 3 kidney failure, PANCREATITIS, LEGALLY BLIND, enlarged prostate, trouble urinating, dry heaves & N/V since tone surg. in January Last Myocardial Infarction Date:: 2014? not sure History of Any Multi-Drug Resistant Organisms: None Reported Past Surgical History: Cholecystectomy, Heart Catheterization With Stent, Heart Catheterization With Stent, Hernia Repair Additional Past Surgical History / Comment(s): Prostrate surgery, maria luz fundoplication in Jan. Past Anesthesia/Blood Transfusion Reactions: No Reported Reaction Additional Past Anesthesia/Blood Transfusion Reaction / Comment(s): never had anethesia Date of Last Stent Placement:: 2017 Smoking Status: Never smoker - Past Family History Mother Family Medical History: CVA/TIA, Diabetes Mellitus, Hypertension Additional Family Medical History / Comment(s): Parkinson's Mother Father Family Medical History: CVA/TIA, Diabetes Mellitus, Myocardial Infarction (CA) Additional Family Medical History / Comment(s): Father of a CA in his 50s. Medications and Allergies Home Medications Medication Instructions Recorded Confirmed Type Pantoprazole [Protonix] 40 mg PO BID@1000,219911/05/17 03/14/21 History Tamsulosin [Flomax] 0.4 mg PO BID@1000,219911/05/17 03/14/21 History Citalopram Hydrobromide [CeleXA] 20 mg PO DAILY@1000 12/12/18 03/14/21 History allopurinoL [Zyloprim] 100 mg PO BID@1000,0 04/05/19 03/14/21 History sitaGLIPtin [Januvia] 100 mg PO DAILY@1000 04/05/19 03/14/21 History Clopidogrel Bisulfate [Plavix] 75 mg PO HS@219904/06/19 03/14/21 History Glimepiride [Amaryl] 4 mg PO BID@1000,219909/07/19 03/14/21 History Lurasidone HCl [Latuda] 80 mg PO HS@219909/07/19 03/14/21 History Aspirin 81 mg PO DAILY@99912/30/19 03/14/21 History Atorvastatin [Lipitor] 80 mg PO HS@219912/30/19 03/14/21 History Isosorbide Mononitrate ER [Imdur] 60 mg PO DAILY@99912/30/19 03/14/21 History Metoprolol Succinate (ER) [Toprol 50 mg PO DAILY@99912/30/19 03/14/21 History XL] Citalopram Hydrobromide [CeleXA] 40 mg PO DAILY@99906/29/20 03/14/21 History Furosemide [Lasix] 40 mg PO DAILY@99906/29/20 03/14/21 History Gabapentin [Neurontin] 300 mg PO BID@999,219906/29/20 03/14/21 History Insulin Detemir (Levemir) [Levemir] 25 unit SQ HS@219906/29/20 03/14/21 History Acetaminophen Tab [Tylenol] 650 mg PO Q4H PRN #30 tablet 07/05/20 03/14/21 Rx Ondansetron Odt [Zofran ODT] 4 mg PO Q8HR PRN #10 tab 09/25/20 03/14/21 Rx Metoclopramide [Reglan] 10 mg PO TID PRN #15 tab 11/26/20 03/14/21 Rx Procrit Unknown Dose 40 mcg SQ Q14D 12/26/20 03/14/21 History Loratadine [Claritin] 10 mg PO DAILY 01/21/21 03/14/21 History HYDROcodone/APAP 5-325MG [[place] 1 tab PO Q6HR PRN 2 Days #8 tab 01/25/21 03/14/21 Rx 5-325] amLODIPine [Norvasc] 10 mg PO DAILY #30 tablet 01/25/21 03/14/21 Rx Allergies Allergy/AdvReac Type Severity Reaction Status Date / Time sucralfate Allergy Nausea & Verified 03/15/21 07:16 Vomiting Iodinated Contrast Media AdvReac Nausea & Verified 03/15/21 07:16 [Iodinated Contrast- Oral Vomiting and IV Dye] Surgical - Exam Vital Signs Temp Pulse Resp BP Pulse Ox 97 F L 63 16 143/75 99 03/15/21 07:14 03/15/21 07:14 03/15/21 07:14 03/15/21 07:14 03/15/21 07:14 - General well developed, well nourished, no distress - Eyes PERRL - ENT normal pinna - Neck no masses - Respiratory normal expansion - Cardiovascular Rhythm: regular - Abdomen Abdomen: soft, non tender Results - Labs Abnormal Lab Results - Last 24 Hours (Table) 03/15/21 Range/Units 07:26 POC Glucose (mg/dL) 153 H (75-99) mg/dL Assessment and Plan Assessment: Dysphagia History of peptic ulcer We'll perform EGD.
--- NOTE | 2021-03-15 08:06 | P.OP ---
Date of Procedure: 03/15/21 Preoperative Diagnosis: Dysphagia Peptic ulcer disease Postoperative Diagnosis: Antral gastritis Small hiatal hernia Procedure(s) Performed: EGD Anesthesia: MAC Surgeon: Evan Kuo Pathology: other (Antrum) Condition: stable Disposition: PACU Description of Procedure: The patient's placed on the endoscopy table in the lateral position. He received IV sedation. The gastroscope placed oropharynx then passed into the esophagus. Scope was placed through the pylorus. First and second portion of duodenum appeared normal. Scope was then brought back the antrum and this appeared minimally inflamed. Biopsies performed. Scope was unretroflexed and remainder stomach appeared normal. The patient appears fundoplication wrap. The appeared to be a small hiatal hernia above the wrap. The GE junction was at 40 cm the distal esophagus. Normal. The proximal esophagus.. Scope was withdrawn for patient.
[2021-03-15 08:35] VITALS: BP 160/81; PULSE 57; RESP 20
== END 2021-03-15 08:40 | disposition home or self-care (01) ==
LOC: ORWHC2ENDO 06:56
PROVIDERS: ATTEND Surgery
DX: K29.50 Unspecified chronic gastritis without bleeding (principal); K44.9 Diaphragmatic hernia without obstruction or gangrene; R13.10 Dysphagia, unspecified; K21.9 Gastro-esophageal reflux disease without esophagitis; K27.9 Peptic ulcer, site unspecified, unspecified as acute or chronic, without hemorrhage or perforation; I25.10 Atherosclerotic heart disease of native coronary artery without angina pectoris; I10 Essential (primary) hypertension; Z86.73 Personal history of transient ischemic attack (TIA), and cerebral infarction without residual deficits; E11.9 Type 2 diabetes mellitus without complications; E78.5 Hyperlipidemia, unspecified; I25.2 Old myocardial infarction; N40.0 Benign prostatic hyperplasia without lower urinary tract symptoms; E11.22 Type 2 diabetes mellitus with diabetic chronic kidney disease; I12.9 Hypertensive chronic kidney disease with stage 1 through stage 4 chronic kidney disease, or unspecified chronic kidney disease; N18.30 Chronic kidney disease, stage 3 unspecified; E11.40 Type 2 diabetes mellitus with diabetic neuropathy, unspecified; M06.9 Rheumatoid arthritis, unspecified; H54.8 Legal blindness, as defined in USA; Z90.49 Acquired absence of other specified parts of digestive tract; Z95.5 Presence of coronary angioplasty implant and graft; Z98.890 Other specified postprocedural states; Z82.3 Family history of stroke; Z83.3 Family history of diabetes mellitus; Z82.49 Family history of ischemic heart disease and other diseases of the circulatory system; Z81.8 Family history of other mental and behavioral disorders; Z79.84 Long term (current) use of oral hypoglycemic drugs; Z79.02 Long term (current) use of antithrombotics/antiplatelets; Z79.82 Long term (current) use of aspirin; Z79.4 Long term (current) use of insulin; Z79.899 Other long term (current) drug therapy; Z88.8 Allergy status to other drugs, medicaments and biological substances; Z91.041 Radiographic dye allergy status
CPT/HCPCS: 88305; 43239; J2704

== ENCOUNTER → 2021-03-15 | Outpatient (CLI) | payer MEDICARE ==
[2021-03-15 15:16] LABS: Basophils # (A) 0.03 X 10*3/uL (0.00-0.10); Basophils % (A) 0.4 %; Eosinophils # (A) 0.13 X 10*3/uL (0.04-0.35); Eosinophils % (A) 1.8 %; HCT 28.1 % (39.6-50.0); HGB 9.2 g/dL (13.0-17.0); Lymphocytes # (A) 1.25 X 10*3/uL (0.90-5.00); Lymphocytes % (A) 17.1 %; MCH 30.2 pg (27.0-32.0); MCHC 32.7 g/dL (32.0-37.0); MCV 92.1 fL (80.0-97.0); Mean Platelet Volume 9.2 fL (9.5-12.2); Monocytes # (A) 0.49 X 10*3/uL (0.20-1.00); Monocytes % (A) 6.7 %; Neutrophils % (A) 73.6 %; Platelet Count 114 X 10*3/uL (140-440); RBC 3.05 X 10*6/uL (4.40-5.60); RDW 13.3 % (11.5-14.5); WBC 7.33 X 10*3/uL (4.50-10.00)
[2021-03-15 19:37] LABS: % Iron Saturation 24.45 (15.00-50.00); African American GFR (CKD) 48.7 (60.0-200.0); Albumin 3.8 g/dL (3.80-4.90); Anion Gap 8.6 mmol/L (4.00-12.00); BUN/Creat Ratio 12.78 Ratio (12.00-20.00); Calcium 8.1 mg/dL (8.7-10.3); Carbon Dioxide 25.4 mmol/L (21.6-31.8); Magnesium 1.6 mg/dL (1.5-2.4); Phosphorus 3.9 mg/dL (2.4-5.1); Uric Acid 6.6 mg/dL (3.7-8.7)
[2021-03-15 21:04] LABS: Ferritin 1283.5 ng/mL (22.0-322.0)
== END | disposition home or self-care (01) ==
LOC: LABWHC1 09:05
PROVIDERS: ATTEND Internal Medicine Nephrology
DX: M10.9 Gout, unspecified (principal); N18.32 Chronic kidney disease, stage 3b; D64.9 Anemia, unspecified; E55.9 Vitamin D deficiency, unspecified
CPT/HCPCS: 36415; 80048; 82040; 82306; 82728; 83540; 83550; 83735; 83970; 84100; 84550; 85025

== ENCOUNTER → 2022-03-27 | Outpatient (CLI) | payer MEDICARE ==
[2022-03-27 14:14] LABS: Protein/Creatinine Ratio,Urine 2.394
[2022-03-27 18:34] LABS: Appearance,Urine Clear (Clear); Bilirubin,Urine Negative (Negative); Blood,Urine Negative (Negative); Color,Urine Yellow (Yellow); Ketones,Urine Negative (Negative); Nitrite,Urine Negative (Negative); Specific Gravity,Urine 1.013 (1.001-1.030); Urobilinogen,Urine 0.2 (0.2,1.0)
[2022-03-27 18:40] LABS: Bacteria,Urine None Seen /HPF (None Seen)
[2022-03-27 19:51] LABS: Basophils # (A) 0.03 X 10*3/uL (0.00-0.10); Basophils % (A) 0.5 %; Eosinophils # (A) 0.18 X 10*3/uL (0.04-0.35); Eosinophils % (A) 2.8 %; HCT 27.1 % (39.6-50.0); HGB 8.9 g/dL (13.0-17.0); Immature Grans, Automated 1.2 %; Lymphocytes # (A) 1.25 X 10*3/uL (0.90-5.00); Lymphocytes % (A) 19.5 %; MCH 29.9 pg (27.0-32.0); MCHC 32.8 g/dL (32.0-37.0); MCV 90.9 fL (80.0-97.0); Mean Platelet Volume 9.3 fL (9.5-12.2); Monocytes # (A) 0.49 X 10*3/uL (0.20-1.00); Monocytes % (A) 7.6 %; NRBC Per 100 WBC 0 /100 WBCS (0.0-0.0); Neutrophils # (A) 4.38 X 10*3/uL (1.80-7.70); Neutrophils % (A) 68.4 %; Platelet Count 118 X 10*3/uL (140-440); RBC 2.98 X 10*6/uL (4.40-5.60); RDW 13.5 % (11.5-14.5); WBC 6.41 X 10*3/uL (4.50-10.00)
[2022-03-27 20:02] LABS: % Iron Saturation 24.23 (15.00-50.00); African American GFR (CKD) 34.2 (60.0-200.0); Anion Gap 12.7 mmol/L (10.00-18.00); BUN/Creat Ratio 15.13 Ratio (12.00-20.00); Blood Urea Nitrogen 36.3 mg/dL (9.0-27.0); Calcium 8.3 mg/dL (8.7-10.3); Carbon Dioxide 19.3 mmol/L (20.0-27.5); Magnesium 1.8 mg/dL (1.5-2.4); Non-African American GFR(CKD) 29.5 (60.0-200.0); Phosphorus 3.8 mg/dL (2.4-5.1); Potassium 4.5 mmol/L (3.5-5.5); Uric Acid 7.4 mg/dL (3.7-8.7)
[2022-03-28 01:29] LABS: Albumin 3.9 g/dL (3.8-4.9)
== END | disposition home or self-care (01) ==
LOC: LABWHC1 12:39
PROVIDERS: ATTEND Internal Medicine Nephrology
DX: E55.9 Vitamin D deficiency, unspecified (principal); N25.81 Secondary hyperparathyroidism of renal origin; M10.9 Gout, unspecified; N39.0 Urinary tract infection, site not specified; N18.32 Chronic kidney disease, stage 3b; R80.9 Proteinuria, unspecified
CPT/HCPCS: 36415; 80048; 81001; 82040; 82306; 82570; 82728; 83540; 83550; 83735; 83970; 84100; 84156; 84550; 85025

== ENCOUNTER 2022-06-14 15:24 | Emergency (ER) | payer MEDICARE ==
[2022-06-14 15:32] VITALS: RESP 18; TEMP 98.5
--- NOTE | 2022-06-14 16:14 | XR ---
EXAMINATION TYPE: XR elbow complete LT DATE OF EXAM: 06/14/2022 COMPARISON: NONE HISTORY: Pain TECHNIQUE: 3 views FINDINGS: There is subcutaneous edema around the elbow. Elbow joint spaces are fairly normal. There i s evidence of small elbow joint effusion. There is some deformity of the lateral aspect of the radial head related to acute intra-articular chip fracture. No dislocation. IMPRESSION: Acute nondisplaced intra-articular 10 mm chip fracture of the lateral aspect of the radia l head. Small elbow joint effusion.
--- NOTE | 2022-06-14 16:23 | ED ---
Upper Extremity HPI - General Chief Complaint: Extremity Injury, Upper Stated Complaint: Fall 4 days ago/Lt arm pain Time Seen by Provider: 06/14/22 15:36 Source: patient, RN notes reviewed Mode of arrival: ambulatory Limitations: no limitations - History of Present Illness Initial Comments: 56-year-old male presents emergency Department with chief complaint of left elbow injury. Patient states he tripped and fell 4 days ago outside. Patient complains of left elbow pain and bruising. Denies any paresthesias no head injury no other muscle skeletal injury from this fall. Patient is left-hand dominant. - Related Data Home Medications Medication Instructions Recorded Confirmed Pantoprazole [Protonix] 40 mg PO BID@1000,219911/05/17 05/30/22 Tamsulosin [Flomax] 0.4 mg PO BID@1000,219911/05/17 05/30/22 Citalopram Hydrobromide [CeleXA] 20 mg PO DAILY@99912/12/18 05/30/22 allopurinoL [Zyloprim] 100 mg PO BID@1000,219904/05/19 05/30/22 sitaGLIPtin [Januvia] 100 mg PO DAILY@99904/05/19 05/30/22 Clopidogrel Bisulfate [Plavix] 75 mg PO HS@219904/06/19 05/30/22 Glimepiride [Amaryl] 4 mg PO BID@1000,219909/07/19 05/30/22 Lurasidone HCl [Latuda] 80 mg PO HS@219909/07/19 05/30/22 Aspirin 81 mg PO DAILY@99912/30/19 05/30/22 Atorvastatin [Lipitor] 80 mg PO HS@22012/30/19 05/30/22 Isosorbide Mononitrate ER [Imdur] 60 mg PO DAILY@99912/30/19 05/30/22 Metoprolol Succinate (ER) [Toprol 50 mg PO DAILY@99912/30/19 05/30/22 XL] Citalopram Hydrobromide [CeleXA] 40 mg PO DAILY@1000 06/29/20 05/30/22 Furosemide [Lasix] 40 mg PO DAILY@1000 06/29/20 05/30/22 Gabapentin [Neurontin] 300 mg PO BID@1000,2200 06/29/20 05/30/22 Insulin Detemir (Levemir) [Levemir] 25 unit SQ HS@2200 06/29/20 05/30/22 Procrit Unknown Dose 40 mcg SQ Q14D 12/26/20 05/30/22 Loratadine [Claritin] 10 mg PO DAILY 01/21/21 05/30/22 Ergocalciferol [Vitamin D2 (1250 50,000 unit PO WEEKLY 12/27/21 05/30/22 Mcg = 28725 Iu)] Gabapentin 600 mg PO BID 02/28/22 05/30/22 Losartan Potassium [Cozaar] 25 mg PO HS 02/28/22 05/30/22 Previous Rx's Medication Instructions Recorded Acetaminophen Tab [Tylenol] 650 mg PO Q4H PRN #30 tablet 07/05/20 Ondansetron Odt [Zofran ODT] 4 mg PO Q8HR PRN #10 tab 09/25/20 Metoclopramide [Reglan] 10 mg PO TID PRN #15 tab 11/26/20 HYDROcodone/APAP 5-325MG [[place] 1 tab PO Q6HR PRN 2 Days #8 tab 01/25/21 5-325] amLODIPine [Norvasc] 10 mg PO DAILY #30 tablet 01/25/21 Allergies Allergy/AdvReac Type Severity Reaction Status Date / Time sucralfate Allergy Nausea & Verified 06/14/22 15:32 Vomiting Iodinated Contrast Media AdvReac Nausea & Verified 06/14/22 15:32 [Iodinated Contrast- Oral Vomiting and IV Dye] Review of Systems ROS Statement: Those systems with pertinent positive or pertinent negative responses have been documented in the HPI. ROS Other: All systems not noted in ROS Statement are negative. Past Medical History Past Medical History: Coronary Artery Disease (CAD), CVA/TIA, Diabetes Mellitus, GERD/Reflux, Hyperlipidemia, Hypertension, Myocardial Infarction ([place]), Renal Disease, Rheumatoid Arthritis ([place]) Additional Past Medical History / Comment(s): stroke apr 2017, migranes, diabetic neuropathy arms and legs, stage 2 kidney failure, PANCREATITIS, LEGALLY BLIND, enlarged prostate, trouble urinating Last Myocardial Infarction Date:: 2014? not sure History of Any Multi-Drug Resistant Organisms: None Reported Past Surgical History: Cholecystectomy, Heart Catheterization With Stent, Heart Catheterization With Stent Additional Past Surgical History / Comment(s): Prostrate surgery. HIATAL HERNIA REPAIR -January Past Anesthesia/Blood Transfusion Reactions: No Reported Reaction Additional Past Anesthesia/Blood Transfusion Reaction / Comment(s): never had anethesia Date of Last Stent Placement:: 2017 Past Psychological History: Anxiety, Depression Smoking Status: Never smoker - Past Family History Mother Family Medical History: CVA/TIA, Diabetes Mellitus, Hypertension Additional Family Medical History / Comment(s): Parkinson's Mother Father Family Medical History: CVA/TIA, Diabetes Mellitus, Myocardial Infarction ([place]) Additional Family Medical History / Comment(s): Father of a [place] in his 50s. General Exam General appearance: alert, in no apparent distress Head exam: Present: atraumatic, normocephalic, normal inspection Neck exam: Present: normal inspection, full ROM. Absent: tenderness, meningismus, lymphadenopathy Respiratory exam: Present: normal lung sounds bilaterally. Absent: respiratory distress, wheezes, rales, rhonchi, stridor Cardiovascular Exam: Present: regular rate, normal rhythm, normal heart sounds. Absent: systolic murmur, diastolic murmur, rubs, gallop, clicks Extremities exam: Present: other (Left elbow there is ecchymosis on the medial aspect, unable to fully extend pain with pronation supination, neurovascular intact no pain proximal or distal with palpation) Course Vital Signs 06/14/22 15:30 Temperature 98.5 F Pulse Rate 89 Respiratory 18 Rate Blood Pressure 211/105 O2 Sat by Pulse 99 Oximetry Procedures - Orthopedic Splinting/Casting Injury #1 Side: left Upper Extremity Injury Location: long arm, elbow Upper Extremity Immobilizer: sling/shoulder immobilizer, posterior splint, synthetic pre-padded splint Medical Decision Making - Medical Decision Making 56-year-old male presented for left elbow injury. Patient has radial head fracture. Patient was splinted along arm splint, sling will follow-up with orthopedics on-call return parameters were discussed. He's neurovascular intact. Disposition Clinical Impression: Fracture of radial head, left, closed Disposition: HOME SELF-CARE Condition: Stable Instructions (If sedation given, give patient instructions): Arm Fracture in Adults (ED) Additional Instructions: Please return to the Emergency Department if symptoms worsen or any other concerns. Is patient prescribed a controlled substance at d/c from ED?: No Referrals: Lamar Scott MD [Primary Care Provider] - 1-2 days Mayelin Pelaez DO [Doctor of Osteopathic Medicine] - 1-2 days Time of Disposition: 16:23
--- NOTE | 2022-06-14 17:05 | XR ---
EXAMINATION TYPE: XR elbow complete RT DATE OF EXAM: 06/14/2022 COMPARISON: NONE HISTORY: Pain TECHNIQUE: 3 views FINDINGS: There is a 10 mm nondisplaced intra-articular chip fracture of the lateral aspect of the ra dial head. There are small elbow joint effusion. Joint spaces are normal. No dislocation. IMPRESSION: Acute intra-articular chip fracture of the radial head.
[2022-06-14] MEDS ORDERED: ACET/COD 300 MG/30 MG STARTER PACK 6 TAB BTL PO STA (17:21)
[2022-06-14 17:45] VITALS: BP 156/84; PULSE 84
== END 2022-06-14 17:46 | disposition home or self-care (01) ==
LOC: EC 15:24
DX: S52.122A Displaced fracture of head of left radius, initial encounter for closed fracture (principal); I25.10 Atherosclerotic heart disease of native coronary artery without angina pectoris; Z86.73 Personal history of transient ischemic attack (TIA), and cerebral infarction without residual deficits; E11.9 Type 2 diabetes mellitus without complications; K21.9 Gastro-esophageal reflux disease without esophagitis; E78.5 Hyperlipidemia, unspecified; I10 Essential (primary) hypertension; I25.2 Old myocardial infarction; M06.9 Rheumatoid arthritis, unspecified; F41.9 Anxiety disorder, unspecified; F32.A Depression, unspecified; Z88.2 Allergy status to sulfonamides; Z91.041 Radiographic dye allergy status; Z79.82 Long term (current) use of aspirin; Z79.899 Other long term (current) drug therapy; Z79.4 Long term (current) use of insulin; W01.0XXA Fall on same level from slipping, tripping and stumbling without subsequent striking against object, initial encounter
CPT/HCPCS: 99284; 29105; 73080 ×2; L3670

== ENCOUNTER 2022-06-20 14:19 | Emergency (ER) | payer MEDICARE ==
[2022-06-20 14:41] VITALS: TEMP 98.4
[2022-06-20 14:44] LABS: Glucose,Whole Blood 255 mg/dL (70-110)
[2022-06-20] MEDS ORDERED: SODIUM CHLORIDE 0.9% 1,000 ML IV STA (16:07)
[2022-06-20] MEDS ORDERED: ONDANSETRON 4 MG/2 ML VIAL IVP STA (16:10)
[2022-06-20] MEDS ORDERED: cloNIDine HCL 0.1 MG TAB PO STA (16:20)
--- NOTE | 2022-06-20 17:15 | ED ---
General Adult HPI - General Chief complaint: Nausea/Vomiting/Diarrhea Stated complaint: dehydrated/hypertension Time Seen by Provider: 06/20/22 16:03 Source: patient Mode of arrival: wheelchair Limitations: no limitations - History of Present Illness Initial comments: Patient is a 56-year-old male who presents to the emergency department chief complaint of dehydration and high blood pressure. Patient has CKD stage 3 with anemia of chronic disease. He was upstairs getting Procrit when he was found to to be hypertensive around 220/100. Patient was sent to the emergency department for evaluation. Patient's complaint today is dehydration from nausea and vomiting. States he has had 5-10 episodes of nausea and vomiting a day for 2 days. Despite triage note he denies abdominal pain. Patient feels that he is dehydrated. He denies fever, chills, headache, upper respiratory symptoms, chest pain, shortness of breath, diarrhea, blood in stool, burning with urination, blood in urine. Last bowel movement was 2 days ago which patient states is normal for him. States the bowel movement was normal, nonbloody. Patient does not know what he takes for blood pressure. States he took his medication this morning. Reports checking his blood pressure at home, usually in 140s/80s. Patient reports taking metformin as directed for diabetes. Denies alcohol use. Denies past and present use of tobacco. - Related Data Home Medications Medication Instructions Recorded Confirmed Pantoprazole [Protonix] 40 mg PO BID 11/05/17 06/20/22 Tamsulosin [Flomax] 0.8 mg PO HS 11/05/17 06/20/22 Citalopram Hydrobromide [CeleXA] 20 mg PO DAILY 12/12/18 06/20/22 allopurinoL [Zyloprim] 100 mg PO DAILY 04/05/19 06/20/22 Clopidogrel Bisulfate [Plavix] 75 mg PO HS 04/06/19 06/20/22 Glimepiride [Amaryl] 4 mg PO BID 09/07/19 06/20/22 Atorvastatin [Lipitor] 80 mg PO HS 12/30/19 06/20/22 Isosorbide Mononitrate ER [Imdur] 60 mg PO DAILY 12/30/19 06/20/22 Metoprolol Succinate (ER) [Toprol 50 mg PO DAILY 12/30/19 06/20/22 XL] Citalopram Hydrobromide [CeleXA] 40 mg PO DAILY 06/29/20 06/20/22 Furosemide [Lasix] 40 mg PO DAILY 06/29/20 06/20/22 Procrit Unknown Dose 40 mcg SQ Q14D 12/26/20 06/20/22 Loratadine [Claritin] 10 mg PO DAILY 01/21/21 06/20/22 Gabapentin 600 mg PO BID 02/28/22 06/20/22 Losartan Potassium [Cozaar] 25 mg PO HS 02/28/22 06/20/22 Lurasidone [Latuda] 40 mg PO HS 06/20/22 06/20/22 Ondansetron Odt [Zofran ODT] 4 mg PO BID PRN 06/20/22 06/20/22 Triamcinolone 0.1% Cream [Kenalog 1 applicatio TOPICAL BID PRN 06/20/22 06/20/22 0.1% Cream] sitaGLIPtin [Januvia] 50 mg PO DAILY 06/20/22 06/20/22 traMADol HCL 50 mg PO Q6H PRN 06/20/22 06/20/22 Previous Rx's Medication Instructions Recorded amLODIPine [Norvasc] 10 mg PO DAILY #30 tablet 01/25/21 Aspirin [[place] Aspirin EC] 81 mg PO DAILY #14 tab 06/20/22 Metoclopramide [Reglan] 10 mg PO TID PRN #15 tab 06/20/22 Allergies Allergy/AdvReac Type Severity Reaction Status Date / Time sucralfate Allergy Nausea & Verified 06/20/22 18:05 Vomiting Iodinated Contrast Media AdvReac Nausea & Verified 06/20/22 18:05 [Iodinated Contrast- Oral Vomiting and IV Dye] Review of Systems ROS Statement: Those systems with pertinent positive or pertinent negative responses have been documented in the HPI. ROS Other: All systems not noted in ROS Statement are negative. Past Medical History Past Medical History: Coronary Artery Disease (CAD), CVA/TIA, Diabetes Mellitus, GERD/Reflux, Hyperlipidemia, Hypertension, Myocardial Infarction ([place]), Renal Disease, Rheumatoid Arthritis (RA) Additional Past Medical History / Comment(s): stroke apr 2017, migranes, diabetic neuropathy arms and legs, stage 2 kidney failure, PANCREATITIS, LEGALLY BLIND, enlarged prostate, trouble urinating Last Myocardial Infarction Date:: 2014? not sure History of Any Multi-Drug Resistant Organisms: None Reported Past Surgical History: Cholecystectomy, Heart Catheterization With Stent, Heart Catheterization With Stent Additional Past Surgical History / Comment(s): Prostrate surgery. HIATAL HERNIA REPAIR -January Past Anesthesia/Blood Transfusion Reactions: No Reported Reaction Additional Past Anesthesia/Blood Transfusion Reaction / Comment(s): never had anethesia Date of Last Stent Placement:: 2017 Past Psychological History: Anxiety, Depression Smoking Status: Never smoker - Past Family History Mother Family Medical History: CVA/TIA, Diabetes Mellitus, Hypertension Additional Family Medical History / Comment(s): Parkinson's Mother Father Family Medical History: CVA/TIA, Diabetes Mellitus, Myocardial Infarction ([place]) Additional Family Medical History / Comment(s): Father of a [place] in his 50s. General Exam Limitations: no limitations General appearance: alert, in no apparent distress Head exam: Present: atraumatic, normocephalic, normal inspection Eye exam: Present: normal appearance, PERRL, EOMI. Absent: scleral icterus, conjunctival injection, periorbital swelling Respiratory exam: Present: normal lung sounds bilaterally. Absent: respiratory distress, wheezes, rales, rhonchi, stridor Cardiovascular Exam: Present: regular rate, normal rhythm, normal heart sounds. Absent: systolic murmur, diastolic murmur, rubs, gallop, clicks GI/Abdominal exam: Present: soft, normal bowel sounds. Absent: distended, tenderness, guarding, rebound, rigid Extremities exam: Present: normal inspection, full ROM, normal capillary refill. Absent: tenderness, pedal edema, joint swelling Neurological exam: Present: alert, oriented X3, CN II-XII intact Psychiatric exam: Present: normal affect, normal mood Skin exam: Present: warm, dry, intact, pallor. Absent: normal color, rash Course Vital Signs 06/20/22 06/20/22 06/20/22 14:37 17:06 18:31 Temperature 98.4 F Pulse Rate 75 87 69 Respiratory 20 16 18 Rate Blood Pressure 197/101 196/94 205/110 O2 Sat by Pulse 100 98 100 Oximetry 06/20/22 06/20/22 21:00 21:55 Temperature Pulse Rate 80 66 Respiratory 20 16 Rate Blood Pressure 180/90 191/83 O2 Sat by Pulse 98 98 Oximetry Medical Decision Making - Medical Decision Making Was pt. sent in by a medical professional or institution? Yes, third floor of our facility Did you speak to anyone other than the patient for history? No Did you review nursing and triage notes? Yes, and I agree. Symptoms consistent with nursing and triage notes. Were old charts reviewed? Yes. Differential Diagnosis? dehydration, covid-19, influenza, DKA EKG interpreted by me (3pts min.)? Yes normal sinus rhythm with left ventricular hypertrophy, prolonged QT interval, and nonspecific T-wave flattening. Ventricular rate 63, ND interval 152, QRS duration 92, QTC 513 X-rays interpreted by me (1pt min.)? Yes, negative for acute process. CT interpreted by me (1pt min.)? NA U/S interpreted by me (1pt. min.)? NA What testing was considered but not performed? (CT, X-rays, U/S, labs)? Why? I considered CT abdomen and pelvis with contrast however patient denies abdominal pain and had no abdominal tenderness on exam What meds were considered but not given? Why? None Did you discuss the management of the patient with other professionals? No Did you reconcile home meds? No, patient left AMA. Was smoking cessation discussed for >3mins.? NA Was critical care preformed (if so, how long)? No Were there social determinants of health that impacted care today? How? (Homelessness, low income, unemployed, alcoholism, drug addiction, transportation, low edu. Level, literacy, decrease access to med. care, halfway, rehab)? No Was there de-escalation of care discussed even if they declined? (Discuss DNR or withdrawal of care, Hospice)? No What co-morbidities impacted this encounter? (DM, HTN, Smoking, COPD, CAD, Cancer, CVA, Hep., AIDS, mental health diagnosis, sleep apnea, morbid obesity)? CAD, stroke, HTN, HLD, [place], CKD Was patient admitted / discharged? This is a 56 -year-old male sent to the ER on the third floor for high blood pressure. Blood pressure 197/101. Patient resting comfortably in bed during evaluation. No chest pain shortness or breath. EKG shows normal sinus rhythm with nonspecific T-wave flattening and prolonged QT interval. Laboratory studies obtained. Potassium within normal limits. Troponin elevated at 0.037, Kidney function consistent with chronic kidney disease. Patient is anemic at 10.3, consistent with his chronic anemia. There hyperglycemia at 211 without evidence of DKA. There are trace ketones and 3+ glucose in the urine. KUB x-ray negative for acute process. Nausea controlled in the emergency department. Blood pressure somewhat improved with Catapress. Results discussed with patient. Patient has extensive cardiac history. I did recommend observation for serial troponins however patient declined. Patient will be discharged with Reglan and aspirin. 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 Undiagnosed new problem with uncertain prognosis? No Drug Therapy requiring intensive monitoring for toxicity (Heparin, Nitro, Insulin, Cardizem)? No Were any procedures done? No Diagnosis/symptom? Nausea and vomiting Acute, or Chronic, or Acute on Chronic? Acute Uncomplicated (without systemic symptoms) or Complicated (systemic symptoms)? uncomplicated Side effects of treatment? No Exacerbation, Progression, or Severe Exacerbation] NA Poses a threat to life or bodily function? No Diagnosis/symptom? High blood pressure Acute, or Chronic, or Acute on Chronic? Acute on chronic Uncomplicated (without systemic symptoms) or Complicated (systemic symptoms)? NA Side effects of treatment? No Exacerbation, Progression, or Severe Exacerbation] NA Poses a threat to life or bodily function? No Diagnosis/symptom? Elevated troponin Acute, or Chronic, or Acute on Chronic? Acute Uncomplicated (without systemic symptoms) or Complicated (systemic symptoms)? NA Side effects of treatment? NA Exacerbation, Progression, or Severe Exacerbation] NA Poses a threat to life or bodily function? Yes Dr. Castro is my attending. - Lab Data Result diagrams: 06/20/22 17:01 06/20/22 17:01 Lab Results 06/20/22 06/20/22 06/20/22 Range/Units 14:41 17:01 17:01 WBC 8.7 (3.8-10.6) k/uL RBC 3.52 L (4.30-5.90) m/uL Hgb 10.3 L (13.0-17.5) gm/dL Hct 29.9 L (39.0-53.0) % MCV 85.1 (80.0-100.0) fL MCH 29.4 (25.0-35.0) pg MCHC 34.6 (31.0-37.0) g/dL RDW 13.4 (11.5-15.5) % Plt Count 196 (150-450) k/uL MPV 7.0 Neutrophils % 79 % Lymphocytes % 14 % Monocytes % 5 % Eosinophils % 0 % Basophils % 0 % Neutrophils # 6.8 (1.3-7.7) k/uL Lymphocytes # 1.2 (1.0-4.8) k/uL Monocytes # 0.5 (0-1.0) k/uL Eosinophils # 0.0 (0-0.7) k/uL Basophils # 0.0 (0-0.2) k/uL Poikilocytosis Slight VBG pH (7.31-7.41) VBG pCO2 (37-51) mmHg VBG HCO3 (24-28) mmol/L Sodium (137-145) mmol/L Potassium (3.5-5.1) mmol/L Chloride (98-107) mmol/L Carbon Dioxide (22-30) mmol/L Anion Gap mmol/L BUN (9-20) mg/dL Creatinine (0.66-1.25) mg/dL Est GFR (CKD-EPI)AfAm (>60 ml/min/1.73 sqM) Est GFR (CKD-EPI)NonAf (>60 ml/min/1.73 sqM) Glucose (74-99) mg/dL POC Glucose (mg/dL) 255 H (70-110) mg/dL POC Glu Health Care Assistant ID Marlene, Jeff Plasma Lactic Acid Preet (0.7-2.0) mmol/L Calcium (8.4-10.2) mg/dL Phosphorus (2.5-4.5) mg/dL Magnesium (1.6-2.3) mg/dL Total Bilirubin (0.2-1.3) mg/dL AST (17-59) U/L ALT (4-49) U/L Alkaline Phosphatase (38-126) U/L Troponin I (0.000-0.034) ng/mL Total Protein (6.3-8.2) g/dL Albumin (3.5-5.0) g/dL Lipase (23-300) U/L Urine Color Yellow Urine Appearance Clear (Clear) Urine pH 6.0 (5.0-8.0) Ur Specific [place] 1.021 (1.001-1.035) Urine Protein 3+ H (Negative) Urine Glucose (UA) 3+ H (Negative) Urine Ketones Trace H (Negative) Urine Blood Moderate H (Negative) Urine Nitrite Negative (Negative) Urine Bilirubin Negative (Negative) Urine Urobilinogen <2.0 (<2.0) mg/dL Ur Leukocyte Esterase Negative (Negative) Urine RBC 2 (0-5) /hpf Urine WBC 3 (0-5) /hpf Ur Squamous Epith Cells <1 (0-4) /hpf Urine Bacteria Occasional H (None) /hpf Urine Mucus Occasional H (None) /hpf Acetone, Qual (Negative) Influenza Type A (PCR) (Not Detectd) Influenza Type B (PCR) (Not Detectd) RSV (PCR) (Not Detectd) SARS-CoV-2 (PCR) (Not Detectd) 06/20/22 06/20/22 06/20/22 Range/Units 17:01 17:01 17:01 WBC (3.8-10.6) k/uL RBC (4.30-5.90) m/uL Hgb (13.0-17.5) gm/dL Hct (39.0-53.0) % MCV (80.0-100.0) fL MCH (25.0-35.0) pg MCHC (31.0-37.0) g/dL RDW (11.5-15.5) % Plt Count (150-450) k/uL MPV Neutrophils % % Lymphocytes % % Monocytes % % Eosinophils % % Basophils % % Neutrophils # (1.3-7.7) k/uL Lymphocytes # (1.0-4.8) k/uL Monocytes # (0-1.0) k/uL Eosinophils # (0-0.7) k/uL Basophils # (0-0.2) k/uL Poikilocytosis VBG pH (7.31-7.41) VBG pCO2 (37-51) mmHg VBG HCO3 (24-28) mmol/L Sodium 135 L (137-145) mmol/L Potassium 4.9 (3.5-5.1) mmol/L Chloride 108 H (98-107) mmol/L Carbon Dioxide 20 L (22-30) mmol/L Anion Gap 7 mmol/L BUN 34 H (9-20) mg/dL Creatinine 2.02 H (0.66-1.25) mg/dL Est GFR (CKD-EPI)AfAm 42 (>60 ml/min/1.73 sqM) Est GFR (CKD-EPI)NonAf 36 (>60 ml/min/1.73 sqM) Glucose 211 H (74-99) mg/dL POC Glucose (mg/dL) (70-110) mg/dL POC Glu Health Care Assistant ID Plasma Lactic Acid Preet 1.1 (0.7-2.0) mmol/L Calcium 8.4 (8.4-10.2) mg/dL Phosphorus 3.2 (2.5-4.5) mg/dL Magnesium 2.0 (1.6-2.3) mg/dL Total Bilirubin 0.9 (0.2-1.3) mg/dL AST 35 (17-59) U/L ALT 24 (4-49) U/L Alkaline Phosphatase 130 H (38-126) U/L Troponin I (0.000-0.034) ng/mL Total Protein 6.1 L (6.3-8.2) g/dL Albumin 3.5 (3.5-5.0) g/dL Lipase 167 (23-300) U/L Urine Color Urine Appearance (Clear) Urine pH (5.0-8.0) Ur Specific [place] (1.001-1.035) Urine Protein (Negative) Urine Glucose (UA) (Negative) Urine Ketones (Negative) Urine Blood (Negative) Urine Nitrite (Negative) Urine Bilirubin (Negative) Urine Urobilinogen (<2.0) mg/dL Ur Leukocyte Esterase (Negative) Urine RBC (0-5) /hpf Urine WBC (0-5) /hpf Ur Squamous Epith Cells (0-4) /hpf Urine Bacteria (None) /hpf Urine Mucus (None) /hpf Acetone, Qual Positive (Negative) Influenza Type A (PCR) Not Detected (Not Detectd) Influenza Type B (PCR) Not Detected (Not Detectd) RSV (PCR) Not Detected (Not Detectd) SARS-CoV-2 (PCR) Not Detected (Not Detectd) 06/20/22 06/20/22 Range/Units 20:22 21:07 WBC (3.8-10.6) k/uL RBC (4.30-5.90) m/uL Hgb (13.0-17.5) gm/dL Hct (39.0-53.0) % MCV (80.0-100.0) fL MCH (25.0-35.0) pg MCHC (31.0-37.0) g/dL RDW (11.5-15.5) % Plt Count (150-450) k/uL MPV Neutrophils % % Lymphocytes % % Monocytes % % Eosinophils % % Basophils % % Neutrophils # (1.3-7.7) k/uL Lymphocytes # (1.0-4.8) k/uL Monocytes # (0-1.0) k/uL Eosinophils # (0-0.7) k/uL Basophils # (0-0.2) k/uL Poikilocytosis VBG pH 7.39 (7.31-7.41) VBG pCO2 34 L (37-51) mmHg VBG HCO3 20 L (24-28) mmol/L Sodium (137-145) mmol/L Potassium (3.5-5.1) mmol/L Chloride (98-107) mmol/L Carbon Dioxide (22-30) mmol/L Anion Gap mmol/L BUN (9-20) mg/dL Creatinine (0.66-1.25) mg/dL Est GFR (CKD-EPI)AfAm (>60 ml/min/1.73 sqM) Est GFR (CKD-EPI)NonAf (>60 ml/min/1.73 sqM) Glucose (74-99) mg/dL POC Glucose (mg/dL) (70-110) mg/dL POC Glu Health Care Assistant ID Plasma Lactic Acid Preet (0.7-2.0) mmol/L Calcium (8.4-10.2) mg/dL Phosphorus (2.5-4.5) mg/dL Magnesium (1.6-2.3) mg/dL Total Bilirubin (0.2-1.3) mg/dL AST (17-59) U/L ALT (4-49) U/L Alkaline Phosphatase (38-126) U/L Troponin I 0.037 H* (0.000-0.034) ng/mL Total Protein (6.3-8.2) g/dL Albumin (3.5-5.0) g/dL Lipase (23-300) U/L Urine Color Urine Appearance (Clear) Urine pH (5.0-8.0) Ur Specific [place] (1.001-1.035) Urine Protein (Negative) Urine Glucose (UA) (Negative) Urine Ketones (Negative) Urine Blood (Negative) Urine Nitrite (Negative) Urine Bilirubin (Negative) Urine Urobilinogen (<2.0) mg/dL Ur Leukocyte Esterase (Negative) Urine RBC (0-5) /hpf Urine WBC (0-5) /hpf Ur Squamous Epith Cells (0-4) /hpf Urine Bacteria (None) /hpf Urine Mucus (None) /hpf Acetone, Qual (Negative) Influenza Type A (PCR) (Not Detectd) Influenza Type B (PCR) (Not Detectd) RSV (PCR) (Not Detectd) SARS-CoV-2 (PCR) (Not Detectd) Disposition Clinical Impression: Hypertension, Nausea & vomiting, Elevated troponin Disposition: Left Against Medical Advice Condition: Good Instructions (If sedation given, give patient instructions): Acute Nausea and Vomiting (ED), Hypertension (ED) Additional Instructions: You are leaving AGAINST MEDICAL ADVICE. Please follow up with primary care provider and crankshaft straightener. Your blood pressure was very high in the emergency department today. Take Reglan and aspirin as prescribed. Increase water intake as tolerated. Return to the emergency department if you experience new, concerning, or worsening symptoms. Prescriptions: Metoclopramide [Reglan] 10 mg PO TID PRN #15 tab PRN Reason: Nausea Aspirin [[place] Aspirin EC] 81 mg PO DAILY #14 tab Is patient prescribed a controlled substance at d/c from ED?: No Referrals: Lamar Scott MD [Primary Care Provider] - 1-2 days
[2022-06-20 17:38] LABS: Basophils % (A) 0 %; Eosinophils % (A) 0 %; HCT 29.9 % (39.0-53.0); HGB 10.3 gm/dL (13.0-17.5); Lymphocytes # (A) 1.2 k/uL (1.0-4.8); Lymphocytes % (A) 14 %; MCH 29.4 pg (25.0-35.0); MCHC 34.6 g/dL (31.0-37.0); MCV 85.1 fL (80.0-100.0); Monocytes # (A) 0.5 k/uL (0-1.0); Monocytes % (A) 5 %; Neutrophils # (A) 6.8 k/uL (1.3-7.7); Neutrophils % (A) 79 %; Platelet Count 196 k/uL (150-450); Poikilocytosis Slight; RBC 3.52 m/uL (4.30-5.90); RDW 13.4 % (11.5-15.5); WBC 8.7 k/uL (3.8-10.6)
[2022-06-20 17:44] LABS: ALT 24 U/L (4-49); AST 35 U/L (17-59); African American GFR (CKD) 42 (>60 ml/min/1.73 sqM); Albumin 3.5 g/dL (3.5-5.0); Alkaline Phosphatase 130 U/L (38-126); Anion Gap 7 mmol/L; Blood Urea Nitrogen 34 mg/dL (9-20); Calcium 8.4 mg/dL (8.4-10.2); Carbon Dioxide 20 mmol/L (22-30); Chloride 108 mmol/L (98-107); Glucose 211 mg/dL (74-99); Lipase 167 U/L (23-300); Non-African American GFR(CKD) 36 (>60 ml/min/1.73 sqM); Phosphorus 3.2 mg/dL (2.5-4.5); Potassium 4.9 mmol/L (3.5-5.1); Sodium 135 mmol/L (137-145); Total Bilirubin 0.9 mg/dL (0.2-1.3); Total Protein 6.1 g/dL (6.3-8.2)
--- NOTE | 2022-06-20 18:10 | XR ---
EXAMINATION TYPE: XR KUB DATE OF EXAM: 06/20/2022 5:34 PM INDICATION: Patient age:Male; 56 years old; Reason for study: vomiting; COMPARISON: None. TECHNIQUE: One radiographic view of the abdomen was obtained. FINDINGS: The bowel gas pattern is nonspecific without dilated loops of small or large bowel. There i s no evidence for organomegaly or pneumoperitoneum. The osseous structures are intact. No abnormal calcifications are present. Fecal material and gas are demonstrated throughout the colon and rectum. IMPRESSION: Nonspecific bowel gas pattern without radiographic evidence for acute process.
[2022-06-20 20:47] LABS: VBG PH 7.39 (7.31-7.41)
[2022-06-20] MEDS ORDERED: hydrALAZINE HCL 20 MG/ML 1 ML VIAL IVP STA (20:55)
[2022-06-20] MEDS ORDERED: PROCHLORPERAZINE INJ 10 MG/2 ML VIAL IVP STA (20:55)
[2022-06-20 21:04] LABS: Appearance,Urine Clear (Clear); Bacteria,Urine Occasional /hpf; Bilirubin,Urine Negative (Negative); Blood,Urine Moderate (Negative); Color,Urine Yellow; Glucose,Urine (UA) 3+ (Negative); Ketones,Urine Trace (Negative); Leukocyte Esterase,Urine Negative (Negative); Mucus,Urine Occasional /hpf; Nitrite,Urine Negative (Negative); Protein,Urine 3+ (Negative); RBC,Urine 2 /hpf (0-5); Specific Gravity,Urine 1.021 (1.001-1.035); Squamous Epithelial Cell,Urine <1 /hpf (0-4); Urobilinogen,Urine <2.0 mg/dL (<2.0); WBC,Urine 3 /hpf (0-5)
[2022-06-20] MEDS ORDERED: ASPIRIN 325 MG TAB PO STA (21:53)
[2022-06-20 21:56] VITALS: RESP 16
[2022-06-20 22:50] VITALS: BP 175/89; PULSE 68
== END 2022-06-20 22:50 | disposition left against medical advice (07) ==
LOC: EC 14:19
DX: I12.9 Hypertensive chronic kidney disease with stage 1 through stage 4 chronic kidney disease, or unspecified chronic kidney disease (principal); N18.2 Chronic kidney disease, stage 2 (mild); R11.2 Nausea with vomiting, unspecified; R77.8 Other specified abnormalities of plasma proteins; E11.22 Type 2 diabetes mellitus with diabetic chronic kidney disease; I25.10 Atherosclerotic heart disease of native coronary artery without angina pectoris; Z86.73 Personal history of transient ischemic attack (TIA), and cerebral infarction without residual deficits; K21.9 Gastro-esophageal reflux disease without esophagitis; E78.5 Hyperlipidemia, unspecified; I25.2 Old myocardial infarction; M06.9 Rheumatoid arthritis, unspecified; F41.9 Anxiety disorder, unspecified; F32.A Depression, unspecified; Z88.2 Allergy status to sulfonamides; Z91.041 Radiographic dye allergy status; Z79.899 Other long term (current) drug therapy; Z20.822 Contact with and (suspected) exposure to COVID-19; Z53.29 Procedure and treatment not carried out because of patient's decision for other reasons
CPT/HCPCS: 36415; 93005; 80053; 82803; 82009; 83605; 83690; 83735; 84100; 84484; 85025; 81001; 87636; 74018; 99285; 96374; 96375; 96361; J0780; J2405

== ENCOUNTER 2022-06-27 16:22 | Emergency (ER) | payer MEDICARE ==
--- NOTE | 2022-06-27 16:50 | XR ---
EXAMINATION TYPE: XR chest 2V DATE OF EXAM: 06/27/2022 COMPARISON: 06/29/2020 HISTORY: Cough. TECHNIQUE: FINDINGS: Heart is normal. Lungs are clear of infiltrate. No heart failure. There are no hilar masses . Mediastinum is normal. Bony thorax is intact. IMPRESSION: No active cardiopulmonary disease. No change.
--- NOTE | 2022-06-27 17:26 | ED ---
Nausea/Vomiting/Diarrhea HPI - General Source: patient, RN notes reviewed Mode of arrival: EMS Limitations: no limitations <Louisa Gale - Last Filed: 06/27/22 17:29> <Mannie Harper - Last Filed: 06/28/22 02:25> - General Chief complaint: Nausea/Vomiting/Diarrhea Stated complaint: vomiting,diarrhea Time Seen by Provider: 06/27/22 17:20 - History of Present Illness Initial comments: 3 days ago, nausea, initially vomiting but hasn't ate. 4 diarrhea, watery. no hx of c. diff, no recent abx. intermittent upper abdominal pain, no radiation. cough with green sputum. chills, sore throat, headache, runny nose. generalized weakness. no abdominal pain, no SOB no recent sick contacts Runny nose, sore throat Patient is a 56-year-old male who presents to the emergency department with a chief complaint of nausea and vomiting. Symptoms started 3 days ago. Patient reports inability to tolerate oral intake therefore he has not ate in 2 days. 4-5 episodes of watery diarrhea daily,non bloody. Denies history of c. diff and recent abx use. Also reports intermittent upper abdominal pain. Describes it as an aching without radiation. Patient also notes generalized weakness with upper respiratory symptoms including headache, runny nose, sore throat, cough with green sputum. No feve chills chest pain or SOB. No recent sick contacts. No alcohol use. (Louisa Gale) I evaluated the patient once the patient arrived into the room. The patient stated that he has also been having weakness over the last several days associated with his episodes of diarrhea, nausea and vomiting. The patient did have a history of falls and was in a temporary splint on the left arm secondary to previous fall several weeks ago. The patient denied hitting his head and denied losing consciousness. The patient denied any acute pain or distress currently at this time. The patient also denied any fevers and chills. (Mannie Harper) - Related Data Home Medications Medication Instructions Recorded Confirmed Pantoprazole [Protonix] 40 mg PO BID 11/05/17 06/20/22 Tamsulosin [Flomax] 0.8 mg PO HS 11/05/17 06/20/22 Citalopram Hydrobromide [CeleXA] 20 mg PO DAILY 12/12/18 06/20/22 allopurinoL [Zyloprim] 100 mg PO DAILY 04/05/19 06/20/22 Clopidogrel Bisulfate [Plavix] 75 mg PO HS 04/06/19 06/20/22 Glimepiride [Amaryl] 4 mg PO BID 09/07/19 06/20/22 Atorvastatin [Lipitor] 80 mg PO HS 12/30/19 06/20/22 Isosorbide Mononitrate ER [Imdur] 60 mg PO DAILY 12/30/19 06/20/22 Metoprolol Succinate (ER) [Toprol 50 mg PO DAILY 12/30/19 06/20/22 XL] Citalopram Hydrobromide [CeleXA] 40 mg PO DAILY 06/29/20 06/20/22 Furosemide [Lasix] 40 mg PO DAILY 06/29/20 06/20/22 Procrit Unknown Dose 40 mcg SQ Q14D 12/26/20 06/20/22 Loratadine [Claritin] 10 mg PO DAILY 01/21/21 06/20/22 Gabapentin 600 mg PO BID 02/28/22 06/20/22 Losartan Potassium [Cozaar] 25 mg PO HS 02/28/22 06/20/22 Lurasidone [Latuda] 40 mg PO HS 06/20/22 06/20/22 Ondansetron Odt [Zofran ODT] 4 mg PO BID PRN 06/20/22 06/20/22 Triamcinolone 0.1% Cream [Kenalog 1 applicatio TOPICAL BID PRN 06/20/22 06/20/22 0.1% Cream] sitaGLIPtin [Januvia] 50 mg PO DAILY 06/20/22 06/20/22 traMADol HCL 50 mg PO Q6H PRN 06/20/22 06/20/22 Previous Rx's Medication Instructions Recorded amLODIPine [Norvasc] 10 mg PO DAILY #30 tablet 01/25/21 Aspirin [[place] Aspirin EC] 81 mg PO DAILY #14 tab 06/20/22 Metoclopramide [Reglan] 10 mg PO TID PRN #15 tab 06/20/22 Allergies Allergy/AdvReac Type Severity Reaction Status Date / Time sucralfate Allergy Nausea & Verified 06/27/22 16:27 Vomiting Iodinated Contrast Media AdvReac Nausea & Verified 06/27/22 16:27 [Iodinated Contrast- Oral Vomiting and IV Dye] Review of Systems ROS Other: All systems not noted in ROS Statement are negative. <Louisa Gale - Last Filed: 06/27/22 17:29> ROS Other: All systems not noted in ROS Statement are negative. <Mannie Harper - Last Filed: 06/28/22 02:25> ROS Statement: Those systems with pertinent positive or pertinent negative responses have been documented in the HPI. Past Medical History Past Medical History: Coronary Artery Disease (CAD), CVA/TIA, Diabetes Mellitus, GERD/Reflux, Hyperlipidemia, Hypertension, Myocardial Infarction (GA), Renal Disease, Rheumatoid Arthritis (RA) Additional Past Medical History / Comment(s): stroke apr 2017, migranes, diabetic neuropathy arms and legs, stage 2 kidney failure, PANCREATITIS, LEGALLY BLIND, enlarged prostate, trouble urinating Last Myocardial Infarction Date:: 2014? not sure History of Any Multi-Drug Resistant Organisms: None Reported Past Surgical History: Cholecystectomy, Heart Catheterization With Stent, Heart Catheterization With Stent Additional Past Surgical History / Comment(s): Prostrate surgery. HIATAL HERNIA REPAIR -January Past Anesthesia/Blood Transfusion Reactions: No Reported Reaction Additional Past Anesthesia/Blood Transfusion Reaction / Comment(s): never had anethesia Date of Last Stent Placement:: 2017 Past Psychological History: Anxiety, Depression Smoking Status: Never smoker - Past Family History Mother Family Medical History: CVA/TIA, Diabetes Mellitus, Hypertension Additional Family Medical History / Comment(s): Parkinson's Mother Father Family Medical History: CVA/TIA, Diabetes Mellitus, Myocardial Infarction (GA) Additional Family Medical History / Comment(s): Father of a GA in his 50s. <Louisa Gale - Last Filed: 06/27/22 17:29> General Exam Limitations: no limitations <Louisa Gale - Last Filed: 06/27/22 17:29> Limitations: no limitations General appearance: alert, in no apparent distress Head exam: Present: atraumatic, normocephalic Eye exam: Present: normal appearance, PERRL Pupils: Present: normal accommodation ENT exam: Present: normal exam, normal oropharynx, mucous membranes moist Neck exam: Present: normal inspection, full ROM Respiratory exam: Present: normal lung sounds bilaterally Cardiovascular Exam: Present: regular rate, normal rhythm, normal heart sounds GI/Abdominal exam: Present: soft, normal bowel sounds Extremities exam: Present: normal inspection, full ROM, other (Temporary splint noted on the left upper extremity) Back exam: Present: normal inspection, full ROM Neurological exam: Present: alert, oriented X3, CN II-XII intact Psychiatric exam: Present: normal affect, normal mood Skin exam: Present: warm, dry <Mannie Harper Filed: 06/28/22 02:25> Course Vital Signs 06/27/22 06/27/22 06/27/22 16:25 21:37 21:55 Temperature 98.3 F Pulse Rate 83 73 Respiratory 16 16 Rate Blood Pressure 180/95 169/106 O2 Sat by Pulse 100 100 100 Oximetry 06/27/22 06/27/22 06/27/22 22:00 22:30 23:00 Temperature Pulse Rate 74 80 74 Respiratory Rate Blood Pressure 169/106 170/95 O2 Sat by Pulse 100 99 99 Oximetry 06/27/22 06/28/22 06/28/22 23:30 00:00 00:28 Temperature Pulse Rate 84 81 Respiratory Rate Blood Pressure 178/133 162/80 164/87 O2 Sat by Pulse 100 100 99 Oximetry 06/28/22 06/28/22 06/28/22 00:30 01:00 01:30 Temperature 98.9 F Pulse Rate 88 Respiratory 18 Rate Blood Pressure 164/87 180/108 161/86 O2 Sat by Pulse 100 100 100 Oximetry Medical Decision Making - Lab Data Result diagrams: 06/27/22 21:48 06/27/22 21:48 <Mannie Harper Filed: 06/28/22 02:25> - Medical Decision Making Was pt. sent in by a medical professional or institution (, PA, CLINICAL PROJECT LEADER, urgent care, hospital, or fdc...) When possible be specific @ -No Did you speak to anyone other than the patient for history (EMS, parent, family, police, friend...)? What history was obtained from this source @ -No Did you review nursing and triage notes (agree or disagree)? Why? @ -I reviewed and agree with nursing and triage notes Were old charts reviewed (outside hosp., previous admission, EMS record, old EKG, old radiological studies, urgent care reports/EKG's, fdc records)? Report findings @ -No old charts were reviewed Differential Diagnosis (chest pain, altered mental status, abdominal pain women, abdominal pain men, vaginal bleeding, weakness, fever, dyspnea, syncope, headache, dizziness, GI bleed, back pain, seizure, CVA, palpatations, mental health)? @ -ACS, pneumonia, URI, UTI EKG interpreted by me (3pts min.). @ -An EKG was obtained and was interpreted by myself. EKG showed a rate of 81, OK interval 161 and QRS duration of 93. QTC was 437. This EKG showed a normal sinus rhythm with no ST segment elevations or depressions noted. A second EKG was also obtained as there was confusion if there was a first EKG obtained. Second EKG remain consistent with findings consistent with the other old EKG. X-rays interpreted by me (1pt min.). @ -Chest was obtained and was interpreted by myself showing no acute process. CT interpreted by me (1pt min.). @ -CT head was obtained and was interpreted by myself showing cerebral atrophy more noticeable the temporal lobes however there was no acute intracranial to mildly or change. U/S interpreted by me (1pt. min.). @ -None done What testing was considered but not performed or refused? (CT, X-rays, U/S, labs)? Why? @ -None What meds were considered but not given or refused? Why? @ -None Did you discuss the management of the patient with other professionals (professionals i.e. , PA, CLINICAL PROJECT LEADER, lab, RT, psych nurse, social work associate, regenerator operator, teacher, weapons officer naval activity, case picker)? Give summary @ -No Was smoking cessation discussed for >3mins.? @ -No Was critical care preformed (if so, how long)? @ -No Were there social determinants of health that impacted care today? How? (Homelessness, low income, unemployed, alcoholism, drug addiction, transportation, low edu. Level, literacy, decrease access to med. care, senior living, rehab)? @ -No Was there de-escalation of care discussed even if they declined (Discuss DNR or withdrawal of care, Hospice)? DNR status @ -No What co-morbidities impacted this encounter? (DM, HTN, Smoking, COPD, CAD, Cancer, CVA, ARF, Chemo, Hep., AIDS, mental health diagnosis, sleep apnea, mor bid obesity)? @ -Hypertension Was patient admitted / discharged? Hospital course, mention meds given and route, prescriptions, significant lab abnormalities, going to OR and other pertinent info. @ -The patient was seen and evaluated in the emergency department. Physical exam, the patient was resting in bed without any acute distress. Vital signs were stable and within normal limits. Laboratory workup was largely within normal limits. The patient's CK ED was at baseline. The patient's elevated lipase was also had baseline. The patient was however found to be influenza A positive and likely the cause of his URI type symptoms and minor weakness. The patient was told of this and was happy to hear there was just influenza. The p atient stated that he felt improved on my reevaluation and was stable for discharge back home. The patient was advised to follow-up with his primary care physician for further workup and evaluation and to report back to the emergency department if his pain became acutely worse. The patient was agreeable to this and all his questions were answered. The patient was discharged home in stable condition. Undiagnosed new problem with uncertain prognosis? @ -No Drug Therapy requiring intensive monitoring for toxicity (Heparin, Nitro, Insulin, Cardizem)? @ -No Were any procedures done? @ -No Diagnosis/symptom? @ - Influenza A Acute, or Chronic, or Acute on Chronic? @ -Acute Uncomplicated (without systemic symptoms) or Complicated (systemic symptoms)? @ -Uncomplicated Side effects of treatment? @ -No Exacerbation, Progression, or Severe Exacerbation? @ -No Poses a threat to life or bodily function? How? (Chest pain, USA, GA, pneumonia, PE, COPD, DKA, ARF, appy, cholecystitis, CVA, Diverticulitis, Homicidal, Suicidal, threat to staff... and all critical care pts) @ -No (Mannie Harper) - Lab Data Lab Results 06/27/22 06/27/22 06/27/22 Range/Units 16:31 21:48 21:48 WBC 4.4 (3.8-10.6) k/uL RBC 3.68 L (4.30-5.90) m/uL Hgb 10.8 L (13.0-17.5) gm/dL Hct 31.9 L (39.0-53.0) % MCV 86.5 (80.0-100.0) fL MCH 29.4 (25.0-35.0) pg MCHC 33.9 (31.0-37.0) g/dL RDW 13.9 (11.5-15.5) % Plt Count 158 (150-450) k/uL MPV 7.8 Neutrophils % 66 % Lymphocytes % 21 % Monocytes % 7 % Eosinophils % 3 % Basophils % 1 % Neutrophils # 2.9 (1.3-7.7) k/uL Lymphocytes # 0.9 L (1.0-4.8) k/uL Monocytes # 0.3 (0-1.0) k/uL Eosinophils # 0.1 (0-0.7) k/uL Basophils # 0.0 (0-0.2) k/uL Poikilocytosis Slight VBG pH (7.31-7.41) VBG pCO2 (37-51) mmHg VBG HCO3 (24-28) mmol/L Sodium 137 (137-145) mmol/L Potassium 5.4 H (3.5-5.1) mmol/L Chloride 110 H (98-107) mmol/L Carbon Dioxide 17 L (22-30) mmol/L Anion Gap 10 mmol/L BUN 37 H (9-20) mg/dL Creatinine 2.62 H (0.66-1.25) mg/dL Est GFR (CKD-EPI)AfAm 31 (>60 ml/min/1.73 sqM) Est GFR (CKD-EPI)NonAf 27 (>60 ml/min/1.73 sqM) Glucose 184 H (74-99) mg/dL Calcium 8.0 L (8.4-10.2) mg/dL Total Bilirubin 0.7 (0.2-1.3) mg/dL AST 31 (17-59) U/L ALT 35 (4-49) U/L Alkaline Phosphatase 156 H (38-126) U/L Total Protein 5.6 L (6.3-8.2) g/dL Albumin 3.2 L (3.5-5.0) g/dL Lipase 345 H (23-300) U/L Acetone, Qual Positive (Negative) Influenza Type A (PCR) Detected A (Not Detectd) Influenza Type B (PCR) Not Detected (Not Detectd) RSV (PCR) Not Detected (Not Detectd) SARS-CoV-2 (PCR) Not Detected (Not Detectd) 06/27/22 Range/Units 21:48 WBC (3.8-10.6) k/uL RBC (4.30-5.90) m/uL Hgb (13.0-17.5) gm/dL Hct (39.0-53.0) % MCV (80.0-100.0) fL MCH (25.0-35.0) pg MCHC (31.0-37.0) g/dL RDW (11.5-15.5) % Plt Count (150-450) k/uL MPV Neutrophils % % Lymphocytes % % Monocytes % % Eosinophils % % Basophils % % Neutrophils # (1.3-7.7) k/uL Lymphocytes # (1.0-4.8) k/uL Monocytes # (0-1.0) k/uL Eosinophils # (0-0.7) k/uL Basophils # (0-0.2) k/uL Poikilocytosis VBG pH 7.36 (7.31-7.41) VBG pCO2 27 L (37-51) mmHg VBG HCO3 15 L (24-28) mmol/L Sodium (137-145) mmol/L Potassium (3.5-5.1) mmol/L Chloride (98-107) mmol/L Carbon Dioxide (22-30) mmol/L Anion Gap mmol/L BUN (9-20) mg/dL Creatinine (0.66-1.25) mg/dL Est GFR (CKD-EPI)AfAm (>60 ml/min/1.73 sqM) Est GFR (CKD-EPI)NonAf (>60 ml/min/1.73 sqM) Glucose (74-99) mg/dL Calcium (8.4-10.2) mg/dL Total Bilirubin (0.2-1.3) mg/dL AST (17-59) U/L ALT (4-49) U/L Alkaline Phosphatase (38-126) U/L Total Protein (6.3-8.2) g/dL Albumin (3.5-5.0) g/dL Lipase (23-300) U/L Acetone, Qual (Negative) Influenza Type A (PCR) (Not Detectd) Influenza Type B (PCR) (Not Detectd) RSV (PCR) (Not Detectd) SARS-CoV-2 (PCR) (Not Detectd) Disposition <Louisa Gale - Last Filed: 06/27/22 17:29> Is patient prescribed a controlled substance at d/c from ED?: No Time of Disposition: 01:20 <Mannie Harper - Last Filed: 06/28/22 02:25> Clinical Impression: Influenza A Disposition: HOME SELF-CARE Condition: Stable Instructions (If sedation given, give patient instructions): Influenza (DC) Referrals: Lamar Scott MD [Primary Care Provider] - 1-2 days
[2022-06-27] MEDS ORDERED: SODIUM CHLORIDE 0.9% 1,000 ML IV ONE (21:39)
[2022-06-27 22:23] LABS: Basophils % (A) 1 %; Eosinophils # (A) 0.1 k/uL (0-0.7); Eosinophils % (A) 3 %; HCT 31.9 % (39.0-53.0); HGB 10.8 gm/dL (13.0-17.5); Lymphocytes # (A) 0.9 k/uL (1.0-4.8); Lymphocytes % (A) 21 %; MCH 29.4 pg (25.0-35.0); MCHC 33.9 g/dL (31.0-37.0); MCV 86.5 fL (80.0-100.0); Mean Platelet Volume 7.8; Monocytes # (A) 0.3 k/uL (0-1.0); Monocytes % (A) 7 %; Neutrophils # (A) 2.9 k/uL (1.3-7.7); Neutrophils % (A) 66 %; Platelet Count 158 k/uL (150-450); Poikilocytosis Slight; RBC 3.68 m/uL (4.30-5.90); RDW 13.9 % (11.5-15.5); WBC 4.4 k/uL (3.8-10.6)
[2022-06-27 22:34] LABS: VBG PH 7.36 (7.31-7.41)
[2022-06-27 22:36] LABS: ALT 35 U/L (4-49); AST 31 U/L (17-59); African American GFR (CKD) 31 (>60 ml/min/1.73 sqM); Albumin 3.2 g/dL (3.5-5.0); Alkaline Phosphatase 156 U/L (38-126); Anion Gap 10 mmol/L; Blood Urea Nitrogen 37 mg/dL (9-20); Carbon Dioxide 17 mmol/L (22-30); Chloride 110 mmol/L (98-107); Glucose 184 mg/dL (74-99); Lipase 345 U/L (23-300); Non-African American GFR(CKD) 27 (>60 ml/min/1.73 sqM); Potassium 5.4 mmol/L (3.5-5.1); Sodium 137 mmol/L (137-145); Total Bilirubin 0.7 mg/dL (0.2-1.3); Total Protein 5.6 g/dL (6.3-8.2)
--- NOTE | 2022-06-27 22:54 | CT ---
EXAMINATION TYPE: CT brain wo con DATE OF EXAM: 06/27/2022 COMPARISON: 10/10/2018 HISTORY: WEAKNESS ADN DIZZINESS CT DLP: 1178.4 mGycm Automated exposure control for dose reduction was used. Images obtained of the brain with no contrast. There is cerebral cortical atrophy. There is no mass effect or midline shift no sign of intracranial hemorrhage. The calvarium is intact. IMPRESSION: Cerebral atrophy more noticeable in the temporal lobes. No acute intracranial abnormality. No change.
[2022-06-28 02:11] VITALS: BP 161/86; PULSE 88; RESP 18; TEMP 98.9
== END 2022-06-28 02:11 | disposition home or self-care (01) ==
LOC: EC 16:22
DX: J10.1 Influenza due to other identified influenza virus with other respiratory manifestations (principal); I10 Essential (primary) hypertension; I25.10 Atherosclerotic heart disease of native coronary artery without angina pectoris; G45.9 Transient cerebral ischemic attack, unspecified; K21.9 Gastro-esophageal reflux disease without esophagitis; E78.5 Hyperlipidemia, unspecified; I25.2 Old myocardial infarction; F41.9 Anxiety disorder, unspecified; F32.A Depression, unspecified; Z79.899 Other long term (current) drug therapy; Z88.8 Allergy status to other drugs, medicaments and biological substances; Z91.041 Radiographic dye allergy status; Z20.822 Contact with and (suspected) exposure to COVID-19
CPT/HCPCS: 36415; 70450; 71046; 80053; 82009; 82803; 83690; 85025; 87636; 93005; 96360; 96361; 99285

== ENCOUNTER 2023-01-30 14:11 | Inpatient (IN) | payer MEDICARE ==
--- NOTE | 2023-01-30 16:06 | ED ---
Recheck HPI - General Chief Complaint: Recheck/Abnormal Lab/Rx Stated Complaint: High BP, Nausea Time Seen by Provider: 01/30/23 15:23 Source: patient, RN notes reviewed, old records reviewed Mode of arrival: wheelchair Limitations: no limitations - History of Present Illness Initial Comments: This is a 57-year-old male to the ER today. Presents today for evaluation of severely elevated blood pressure. Patient is been relatively asymptomatic. [facility] for evaluation of severely elevated blood pressure But blood pressure was out of control high today as he was scheduled to get infusion for anemia. Patient has no complaints no headache chest pain shortness of breath just overall generalized feel weakness and ab dominal pain. Patient does have severely elevated blood pressure on arrival to the ER and he has been taking his blood pressure medications as prescribed, patient takes lisinopril 10 mg once a day MD Complaint: abnormal lab -: days(s) Returns Today for: persistent/worsening pain related to initial visit Symptoms Since Prior Visit: no new symptoms Context: planned re-check Associated Symptoms: none Treatments Prior to Arrival: other - Related Data Home Medications Medication Instructions Recorded Confirmed Pantoprazole [Protonix] 40 mg PO BID 11/05/17 01/30/23 Tamsulosin [Flomax] 0.8 mg PO HS 11/05/17 01/30/23 Citalopram Hydrobromide [CeleXA] 20 mg PO DAILY 12/12/18 01/30/23 allopurinoL [Zyloprim] 100 mg PO DAILY 04/05/19 01/30/23 Clopidogrel Bisulfate [Plavix] 75 mg PO HS 04/06/19 01/30/23 Glimepiride [Amaryl] 4 mg PO BID 09/07/19 01/30/23 Atorvastatin [Lipitor] 80 mg PO HS 12/30/19 01/30/23 Isosorbide Mononitrate ER [Imdur] 60 mg PO DAILY 12/30/19 01/30/23 Citalopram Hydrobromide [CeleXA] 40 mg PO DAILY 06/29/20 01/30/23 Furosemide [Lasix] 20 mg PO DAILY 06/29/20 01/30/23 Loratadine [Claritin] 10 mg PO DAILY 01/21/21 01/30/23 Gabapentin 600 mg PO BID 02/28/22 01/30/23 Lurasidone [Latuda] 40 mg PO HS 06/20/22 01/30/23 Ondansetron Odt [Zofran ODT] 4 mg PO BID PRN 06/20/22 01/30/23 Triamcinolone 0.1% Cream [Kenalog 1 applic TOPICAL BID PRN 06/20/22 01/30/23 0.1% Cream] sitaGLIPtin [Januvia] 50 mg PO DAILY 06/20/22 01/30/23 Acetaminophen-Codeine 300-30mg 1 tab PO BID PRN 07/18/22 01/30/23 [Tylenol w/codeine #3] Darbepoetin Omari [Aranesp] 60 mcg SQ Q14D 01/30/23 01/30/23 Docusate [Colace] 100 mg PO BID 01/30/23 01/30/23 Previous Rx's Medication Instructions Recorded Aspirin [[place] Aspirin EC] 81 mg PO DAILY #14 tab 06/20/22 NIFEdipine XL [Procardia XL] 90 mg PO DAILY 30 Days #30 tab 02/06/23 carvediloL [Coreg*] 25 mg PO BID-W/MEALS #30 tab 02/06/23 cloNIDine 0.1 MG/24HR PATCH 1 patch TRANSDERM Q7D #4 patch 02/06/23 [Catapres-TTS] hydrALAZINE HCL [Apresoline] 25 mg PO TID #90 tab 02/06/23 Allergies Allergy/AdvReac Type Severity Reaction Status Date / Time Iodinated Contrast Media AdvReac Nausea & Verified 01/30/23 18:35 [Iodinated Contrast- Oral Vomiting and IV Dye] sucralfate AdvReac Nausea & Verified 01/30/23 18:35 Vomiting Review of Systems ROS Statement: Those systems with pertinent positive or pertinent negative responses have been documented in the HPI. ROS Other: All systems not noted in ROS Statement are negative. Past Medical History Past Medical History: Coronary Artery Disease (CAD), CVA/TIA, Diabetes Mellitus, GERD/Reflux, Hyperlipidemia, Hypertension, Myocardial Infarction (SC), Renal Disease, Rheumatoid Arthritis (RA) Additional Past Medical History / Comment(s): stroke apr 2017, migranes, diabetic neuropathy arms and legs, stage 2 kidney failure, PANCREATITIS, LEGALLY BLIND, enlarged prostate, trouble urinating Last Myocardial Infarction Date:: 2014? not sure History of Any Multi-Drug Resistant Organisms: None Reported Past Surgical History: Cholecystectomy, Heart Catheterization With Stent, Heart Catheterization With Stent Additional Past Surgical History / Comment(s): Prostrate surgery. HIATAL HERNIA REPAIR -January Past Anesthesia/Blood Transfusion Reactions: No Reported Reaction Additional Past Anesthesia/Blood Transfusion Reaction / Comment(s): never had anethesia Date of Last Stent Placement:: 2017 Past Psychological History: Anxiety, Depression Smoking Status: Never smoker - Past Family History Mother Family Medical History: CVA/TIA, Diabetes Mellitus, Hypertension Additional Family Medical History / Comment(s): Parkinson's Mother Father Family Medical History: CVA/TIA, Diabetes Mellitus, Myocardial Infarction (SC) Additional Family Medical History / Comment(s): Father of a SC in his 50s. General Exam Limitations: no limitations General appearance: alert, in no apparent distress Head exam: Present: atraumatic, normocephalic, normal inspection Eye exam: Present: normal appearance, PERRL, EOMI. Absent: scleral icterus, conjunctival injection, periorbital swelling ENT exam: Present: normal exam, mucous membranes moist Neck exam: Present: normal inspection. Absent: tenderness, meningismus, lymphadenopathy Respiratory exam: Present: normal lung sounds bilaterally. Absent: respiratory distress, wheezes, rales, rhonchi, stridor Cardiovascular Exam: Present: regular rate, normal rhythm, normal heart sounds. Absent: systolic murmur, diastolic murmur, rubs, gallop, clicks GI/Abdominal exam: Present: soft, normal bowel sounds. Absent: distended, tenderness, guarding, rebound, rigid Extremities exam: Present: normal inspection, full ROM, normal capillary refill. Absent: tenderness, pedal edema, joint swelling, calf tenderness Back exam: Present: normal inspection Neurological exam: Present: alert, oriented X3, CN II-XII intact Psychiatric exam: Present: normal affect, normal mood Skin exam: Present: warm, dry, intact, normal color. Absent: rash Course Vital Signs 01/30/23 01/30/23 01/30/23 14:14 17:05 17:55 Temperature 98.1 F Pulse Rate 67 68 68 Pulse Rate [ Pulse Oximetery ] Respiratory 16 18 19 Rate Blood Pressure 210/108 179/98 186/110 Blood Pressure [Right Arm] O2 Sat by Pulse 98 Oximetry 01/30/23 01/30/23 01/30/23 18:42 19:53 20:19 Temperature Pulse Rate 71 71 72 Pulse Rate [ Pulse Oximetery ] Respiratory 18 18 18 Rate Blood Pressure 183/94 207/98 199/91 Blood Pressure [Right Arm] O2 Sat by Pulse 96 97 97 Oximetry 01/30/23 01/30/23 20:32 20:50 Temperature 98.3 F Pulse Rate 72 Pulse Rate [ 71 Pulse Oximetery ] Respiratory 18 19 Rate Blood Pressure 175/90 Blood Pressure 164/82 [Right Arm] O2 Sat by Pulse 96 Oximetry - Reevaluation(s) Reevaluation #1: 01/30/23 17:35 medical records reviewed Reevaluation #2: 01/30/23 17:35 blood pressure is mildly improved 01/30/23 17:35 blood pressure is improving Reevaluation #3: 01/30/23 17:35 blood pressure is improving Reevaluation #4: 01/30/23 16:15 Was pt. sent in by a medical professional or institution (, PA, AIRCRAFT STRUCTURAL REPAIRER, urgent care, hospital, or detention...) When possible be specific @ -He has patient was [facility] where he was supposed to receive infusion and was found to have elevated blood pressure Did you speak to anyone other than the patient for history (EMS, parent, family, police, friend...)? What history was obtained from this source @ -no Did you review nursing and triage notes (agree or disagree)? Why? @ -agree Are old charts reviewed (outside hosp., previous admission, EMS record, old EKG, old radiological studies, urgent care reports/EKG's, detention records)? Report findings @ -yes Differential Diagnosis (chest pain, altered mental status, abdominal pain women, abdominal pain men, vaginal bleeding, weakness, fever, dyspnea, syncope, headache, dizziness, GI bleed, back pain, seizure, CVA, palpatations, mental health, musculoskeletal)? @ -prior EKG interpreted by me (3pts min.). @ -yes X-rays interpreted by me (1pt min.). @ -yes CT interpreted by me (1pt min.). @ -no U/S interpreted by me (1pt. min.). @ -no What testing was considered but not performed or refused? (CT, X-rays, U/S, labs)? Why? @ -none What meds were considered but not given or refused? Why? @ -none Did you discuss the management of the patient with other professionals (professionals i.e. , PA, AIRCRAFT STRUCTURAL REPAIRER, lab, RT, psych nurse, social media community manager, newspaper editor, teacher, defence force senior officer, case planner)? Give summary @ -no Was smoking cessation discussed for >3mins.? @ -no Was critical care preformed (if so, how long)? @ -no Were there social determinants of health that impacted care today? How? (Homelessness, low income, unemployed, alcoholism, drug addiction, transportation, low edu. Level, literacy, decrease access to med. care, long term, rehab)? @ -none Was there de-escalation of care discussed even if they declined (Discuss DNR or withdrawal of care, Hospice)? DNR status @ -no What co-morbidities impacted this encounter? (DM, HTN, Smoking, COPD, CAD, Cancer, CVA, ARF, Chemo, Hep., AIDS, mental health diagnosis, sleep apnea, morbid obesity)? @ -none Was patient admitted / discharged? Hospital course, mention meds given and route, prescriptions, significant lab abnormalities, going to OR and other pertinent info. @ - 57 male admitted for hypertensive urgency, emergency, patient will be placed on blood pressure control can be admitted for further blood pressure improvement Admitted Undiagnosed new problem with uncertain prognosis? @ -no Drug Therapy requiring intensive monitoring for toxicity (Heparin, Nitro, Insulin, Cardizem)? @ -no Were any procedures done? @ -no Diagnosis/symptom? @ -Hypertensive urgency, emergency Acute, or Chronic, or Acute on Chronic? @ -Acute Uncomplicated (without systemic symptoms) or Complicated (systemic symptoms)? @ -Complicated Side effects of treatment? @ -no Exacerbation, Progression, or Severe Exacerbation? @ -exacerbation Poses a threat to life or bodily function? How? (Chest pain, USA, SC, pneumonia, PE, COPD, DKA, ARF, appy, cholecystitis, CVA, Diverticulitis, Homicidal, Suicidal, threat to staff... and all critical care pts) @ -yes severe hypertension - Consultations Consultation #1: patient informed results and questions answeredspoke with who agree to admit this patient Medical Decision Making - Medical Decision Making 57 male admitted for hypertensive urgency, emergency, patient will be placed on blood pressure control can be admitted for further blood pressure improvement - Lab Data Result diagrams: 02/06/23 08:57 02/06/23 08:57 Lab Results 01/30/23 01/30/23 01/30/23 Range/Units 15:47 15:47 16:18 WBC 10.2 (3.8-10.6) k/uL RBC 4.04 L (4.30-5.90) m/uL Hgb 11.9 L (13.0-17.5) gm/dL Hct 34.8 L (39.0-53.0) % MCV 86.0 (80.0-100.0) fL MCH 29.5 (25.0-35.0) pg MCHC 34.3 (31.0-37.0) g/dL RDW 13.8 (11.5-15.5) % Plt Count 149 L (150-450) k/uL MPV 7.5 Neutrophils % 80 % Lymphocytes % 12 % Monocytes % 6 % Eosinophils % 1 % Basophils % 0 % Neutrophils # 8.2 H (1.3-7.7) k/uL Lymphocytes # 1.2 (1.0-4.8) k/uL Monocytes # 0.6 (0-1.0) k/uL Eosinophils # 0.1 (0-0.7) k/uL Basophils # 0.0 (0-0.2) k/uL PT (9.0-12.0) sec INR (<1.2) APTT (22.0-30.0) sec Sodium 135 L (137-145) mmol/L Potassium 5.1 (3.5-5.1) mmol/L Chloride 107 (98-107) mmol/L Carbon Dioxide 19 L (22-30) mmol/L Anion Gap 9 mmol/L BUN 27 H (9-20) mg/dL Creatinine 3.14 H (0.66-1.25) mg/dL Est GFR (CKD-EPI)AfAm 25 (>60 ml/min/1.73 sqM) Est GFR (CKD-EPI)NonAf 21 (>60 ml/min/1.73 sqM) Glucose 211 H (74-99) mg/dL Calcium 7.1 L (8.4-10.2) mg/dL Phosphorus 4.1 (2.5-4.5) mg/dL Magnesium 1.2 L (1.6-2.3) mg/dL Total Bilirubin 0.9 (0.2-1.3) mg/dL AST 45 (17-59) U/L ALT 24 (4-49) U/L Alkaline Phosphatase 172 H (38-126) U/L Troponin I 0.027 (0.000-0.034) ng/mL NT-Pro-B Natriuret Pep 62727 pg/mL Total Protein 6.6 (6.3-8.2) g/dL Albumin 3.4 L (3.5-5.0) g/dL 01/30/23 Range/Units 16:18 WBC (3.8-10.6) k/uL RBC (4.30-5.90) m/uL Hgb (13.0-17.5) gm/dL Hct (39.0-53.0) % MCV (80.0-100.0) fL MCH (25.0-35.0) pg MCHC (31.0-37.0) g/dL RDW (11.5-15.5) % Plt Count (150-450) k/uL MPV Neutrophils % % Lymphocytes % % Monocytes % % Eosinophils % % Basophils % % Neutrophils # (1.3-7.7) k/uL Lymphocytes # (1.0-4.8) k/uL Monocytes # (0-1.0) k/uL Eosinophils # (0-0.7) k/uL Basophils # (0-0.2) k/uL PT 10.8 (9.0-12.0) sec INR 1.0 (<1.2) APTT 24.7 (22.0-30.0) sec Sodium (137-145) mmol/L Potassium (3.5-5.1) mmol/L Chloride (98-107) mmol/L Carbon Dioxide (22-30) mmol/L Anion Gap mmol/L BUN (9-20) mg/dL Creatinine (0.66-1.25) mg/dL Est GFR (CKD-EPI)AfAm (>60 ml/min/1.73 sqM) Est GFR (CKD-EPI)NonAf (>60 ml/min/1.73 sqM) Glucose (74-99) mg/dL Calcium (8.4-10.2) mg/dL Phosphorus (2.5-4.5) mg/dL Magnesium (1.6-2.3) mg/dL Total Bilirubin (0.2-1.3) mg/dL AST (17-59) U/L ALT (4-49) U/L Alkaline Phosphatase (38-126) U/L Troponin I (0.000-0.034) ng/mL NT-Pro-B Natriuret Pep pg/mL Total Protein (6.3-8.2) g/dL Albumin (3.5-5.0) g/dL - EKG Data -: EKG Interpreted by Me (EKG is sinus 65 AL 157 QRS 101 QTc 470) Disposition Clinical Impression: Hypertension, Hypertensive emergency, Nausea & vomiting, MIKEY (acute kidney injury), Dehydration, Renal insufficiency syndrome, Hypertensive urgency Disposition: ADMITTED IP TO THIS HOSP Condition: Fair Is patient prescribed a controlled substance at d/c from ED?: No Time of Disposition: 17:30
[2023-01-30 16:16] LABS: ALT 24 U/L (4-49); AST 45 U/L (17-59); African American GFR (CKD) 25 (>60 ml/min/1.73 sqM); Albumin 3.4 g/dL (3.5-5.0); Alkaline Phosphatase 172 U/L (38-126); Anion Gap 9 mmol/L; Blood Urea Nitrogen 27 mg/dL (9-20); Calcium 7.1 mg/dL (8.4-10.2); Carbon Dioxide 19 mmol/L (22-30); Chloride 107 mmol/L (98-107); Glucose 211 mg/dL (74-99); Magnesium 1.2 mg/dL (1.6-2.3); Non-African American GFR(CKD) 21 (>60 ml/min/1.73 sqM); Phosphorus 4.1 mg/dL (2.5-4.5); Sodium 135 mmol/L (137-145); Total Bilirubin 0.9 mg/dL (0.2-1.3); Total Protein 6.6 g/dL (6.3-8.2)
[2023-01-30 16:18] LABS: Potassium 5.1 mmol/L (3.5-5.1)
[2023-01-30] MEDS ORDERED: hydrALAZINE HCL 20 MG/ML 1 ML VIAL IVP STA ×2 (16:18→17:59)
[2023-01-30 16:37] LABS: Basophils % (A) 0 %; Eosinophils # (A) 0.1 k/uL (0-0.7); Eosinophils % (A) 1 %; HCT 34.8 % (39.0-53.0); HGB 11.9 gm/dL (13.0-17.5); Lymphocytes # (A) 1.2 k/uL (1.0-4.8); Lymphocytes % (A) 12 %; MCH 29.5 pg (25.0-35.0); MCHC 34.3 g/dL (31.0-37.0); Mean Platelet Volume 7.5; Monocytes # (A) 0.6 k/uL (0-1.0); Monocytes % (A) 6 %; Neutrophils # (A) 8.2 k/uL (1.3-7.7); Neutrophils % (A) 80 %; Platelet Count 149 k/uL (150-450); RBC 4.04 m/uL (4.30-5.90); RDW 13.8 % (11.5-15.5); WBC 10.2 k/uL (3.8-10.6)
[2023-01-30] MEDS: LABETALOL 5 MG/ML VIAL MDV IVP STA ×2 (16:37→16:40)
[2023-01-30 16:41] LABS: NT-Pro-B-Type Natriuretic Pept 30100 pg/mL
[2023-01-30 16:56] LABS: Partial Thromboplastin Time 24.7 sec (22.0-30.0); Prothrombin Time 10.8 sec (9.0-12.0)
--- NOTE | 2023-01-30 17:26 | XR ---
EXAMINATION TYPE: XR chest 1V portable DATE OF EXAM: 01/30/2023 HISTORY: Shortness of breath. COMPARISON: 06/27/2022 TECHNIQUE: Single view of the chest is submitted. FINDINGS: Demonstrated are scattered senescent parenchymal change. There is no evidence for focal infiltrate. The heart is stable. Hilar and mediastinal structures are within normal limits. Degenerative changes are seen of the dorsal spine. IMPRESSION: 1. Chronic changes without evidence for acute pulmonary disease.
[2023-01-30] MEDS ORDERED: ONDANSETRON 4 MG/2 ML VIAL IVP STA (17:59)
[2023-01-30] MEDS ORDERED: HYDROmorphone 1 MG/ML 1 ML SYRINGE IVP STA (19:28)
[2023-01-30] MEDS ORDERED: NALOXONE 0.4 MG/ML 1 ML VIAL IV PRN (19:28)
[2023-01-30] MEDS ORDERED: ONDANSETRON 4 MG/2 ML VIAL IVP PRN (19:28)
[2023-01-30] MEDS ORDERED: MORPHINE SULFATE 4 MG/ML SYRINGE IV PRN (19:28)
[2023-01-30] MEDS ORDERED: LABETALOL 5 MG/ML VIAL MDV IVP STA (20:08)
[2023-01-30] MEDS ORDERED: PROCHLORPERAZINE INJ 10 MG/2 ML VIAL IVP STA (20:08)
[2023-01-30] MEDS ORDERED: cloNIDine 0.1 MG/24HR PATCH TRANSDERM SCH (20:15)
[2023-01-30] MEDS: SODIUM CHLORIDE 0.9% 1,000 ML IV SCH (20:20)
[2023-01-31 06:15] LABS: Glucose,Whole Blood 181 mg/dL (70-110)
[2023-01-31 08:55] LABS: Basophils % (A) 0 %; Eosinophils # (A) 0.1 k/uL (0-0.7); Eosinophils % (A) 1 %; HCT 32.8 % (39.0-53.0); Hypochromasia Slight; Lymphocytes # (A) 0.7 k/uL (1.0-4.8); Lymphocytes % (A) 9 %; MCH 29.7 pg (25.0-35.0); MCHC 33.6 g/dL (31.0-37.0); MCV 88.5 fL (80.0-100.0); Mean Platelet Volume 7.7; Monocytes # (A) 0.4 k/uL (0-1.0); Monocytes % (A) 5 %; Neutrophils # (A) 6.5 k/uL (1.3-7.7); Neutrophils % (A) 85 %; Platelet Count 135 k/uL (150-450); RBC 3.71 m/uL (4.30-5.90); WBC 7.7 k/uL (3.8-10.6)
[2023-01-31 09:04] LABS: ALT 20 U/L (4-49); AST 21 U/L (17-59); African American GFR (CKD) 21 (>60 ml/min/1.73 sqM); Albumin 2.7 g/dL (3.5-5.0); Alkaline Phosphatase 148 U/L (38-126); Anion Gap 8 mmol/L; Blood Urea Nitrogen 31 mg/dL (9-20); Calcium 6.6 mg/dL (8.4-10.2); Carbon Dioxide 22 mmol/L (22-30); Chloride 106 mmol/L (98-107); Glucose 351 mg/dL (74-99); Magnesium 1.2 mg/dL (1.6-2.3); Non-African American GFR(CKD) 18 (>60 ml/min/1.73 sqM); Phosphorus 5.5 mg/dL (2.5-4.5); Potassium 4.4 mmol/L (3.5-5.1); Sodium 136 mmol/L (137-145); Total Bilirubin 0.5 mg/dL (0.2-1.3); Total Protein 5.3 g/dL (6.3-8.2)
[2023-01-31] MEDS ORDERED: hydrALAZINE HCL 20 MG/ML 1 ML VIAL IVP PRN (09:15)
[2023-01-31] MEDS ORDERED: DEXTROSE 50% SYRINGE 50 ML IVP PRN ×2 (09:26)
[2023-01-31] MEDS ORDERED: METOPROLOL SUCCINATE (ER) 50 MG TAB.ER.24H PO SCH (09:30)
[2023-01-31] MEDS: ASPIRIN 81 MG PO SCH (09:36)
[2023-01-31] MEDS: amLODIPine 10 MG TAB PO SCH (09:36)
[2023-01-31] MEDS: CITALOPRAM HYDROBROMIDE 20 MG TAB PO SCH ×2 (09:36)
[2023-01-31] MEDS: ISOSORBIDE MONONITRATE ER 60 MG TAB.ER.24H PO SCH (09:36)
[2023-01-31] MEDS: PANTOPRAZOLE 40 MG TABLET PO SCH ×2 (09:36→16:56)
[2023-01-31] MEDS: SODIUM CHLORIDE 0.9% 1,000 ML IV SCH (10:16)
--- NOTE | 2023-01-31 11:43 | P.CRDCN ---
History of Present Illness Consult date: 01/31/23 Consult reason: hypertension History of present illness: The patient is a 57-year-old male who follows in the office with Dr. MAC Avendaño. The patient was receiving an infusion at an outpatient clinic, ordered by his account installation specialist, when he developed a rapid increase in his blood pressure. On arrival to the emergency room his systolic pressure was greater than 200. He states he did have some heaviness in his chest at that time. The patient denies any missing of medication. He states he has been following with both his account installation specialist and pleater hand regularly. Clonidine patch was started in the emergency room with improvement in his blood pressure readings DIAGNOSTICS: EKG shows sinus rhythm without acute ST or T-wave abnormalities Chest x-ray shows chronic changes without evidence of acute pulmonary disease Lab data: WBC 7.7, hemoglobin 11.0, hematocrit 32.8, platelet 135, sodium 136, potassium 4.4, BUN 31, creatinine 3.56, phosphorus 5.5, magnesium 1.2, AST 21, ALT 20, troponins negative 3 PAST MEDICAL HISTORY: Coronary artery disease, cardiac stenting, CVA, diabetes, chronic renal disease, hypertension, hyperlipidemia, rheumatoid arthritis REVIEW OF SYSTEMS: No fever or chills. No cough or expectoration. No diaphoresis. Patient denies headache, dizziness, blurred vision, double vision. Patient denies any stomach discomfort. No nausea, vomiting. No hematochezia. No hematemesis. Denies any black stools or blood in his stools. Denies dysuria or hematuria. No muscle weakness or numbness. No chest pain or chest pressure. Mild shortness of breath. PHYSICAL EXAMINATION: This is a 57-year-old male in no apparent distress at the time of my examination. HEENT: Head is atraumatic, normocephalic. Pupils are equal, round. Mucous membranes of the mouth are moist. Neck is supple. There is no jugular venous distention. No carotid bruit is heard. CHEST EXAMINATION: Lungs are clear to auscultation. No chest wall tenderness is noted on palpation or with deep breathing. HEART EXAMINATION: Heart regular rate and rhythm. S1, S2 heard. No murmurs, gallops or rub. ABDOMEN: Soft, nontender. Bowel sounds are heard. No organomegaly noted. EXTREMITIES: 2+ peripheral pulses with no evidence of peripheral edema and no calf tenderness noted. NEUROLOGIC EXAMINATION: Patient is awake, alert and oriented x3. FINAL ASSESSMENT AND PLAN: Hypertensive crisis Chronic kidney disease History of coronary artery disease History of hyperlipidemia History diabetes History of CVA PLAN: Check hemoglobin A1c and lipid profile Increase carvedilol Consider switching amlodipine and Procardia if blood pressure remains uncontrolled Wean off clonidine patch Further recommendations to be based on clinical course I am dictating on behalf of Dr Hipolito Salmon's history/physical and assessment/plan. Past Medical History Past Medical History: Coronary Artery Disease (CAD), CVA/TIA, Diabetes Mellitus, GERD/Reflux, Hyperlipidemia, Hypertension, Myocardial Infarction ([place]), Renal Disease, Rheumatoid Arthritis (RA) Additional Past Medical History / Comment(s): stroke apr 2017, migranes, diabetic neuropathy arms and legs, stage 2 kidney failure, PANCREATITIS, LEGALLY BLIND, enlarged prostate, trouble urinating Last Myocardial Infarction Date:: 2017? History of Any Multi-Drug Resistant Organisms: None Reported Past Surgical History: Cholecystectomy, Heart Catheterization With Stent, Heart Catheterization With Stent Additional Past Surgical History / Comment(s): Prostrate surgery. HIATAL HERNIA REPAIR -January Past Anesthesia/Blood Transfusion Reactions: No Reported Reaction Additional Past Anesthesia/Blood Transfusion Reaction / Comment(s): never had anethesia Date of Last Stent Placement:: 2017 Past Psychological History: Anxiety, Depression Additional Psychological History / Comment(s): Pt resides with his spouse. He uses a quad cane or walker to ambulate. He is legally blind. He reads minimally with magnifying glass and signs his name only now. His spouse drives him to [place]. Smoking Status: Never smoker Past Alcohol Use History: None Reported Past Drug Use History: None Reported - Past Family History Mother Family Medical History: CVA/TIA, Diabetes Mellitus, Hypertension Additional Family Medical History / Comment(s): Parkinson's Mother Father Family Medical History: CVA/TIA, Diabetes Mellitus, Myocardial Infarction ([place]) Additional Family Medical History / Comment(s): Father of a [place] in his 50s. Medications and Allergies Home Medications Medication Instructions Recorded Confirmed Type Pantoprazole [Protonix] 40 mg PO BID 11/05/17 01/30/23 History Tamsulosin [Flomax] 0.8 mg PO HS 11/05/17 01/30/23 History Citalopram Hydrobromide [CeleXA] 20 mg PO DAILY 12/12/18 01/30/23 History allopurinoL [Zyloprim] 100 mg PO DAILY 04/05/19 01/30/23 History Clopidogrel Bisulfate [Plavix] 75 mg PO HS 04/06/19 01/30/23 History Glimepiride [Amaryl] 4 mg PO BID 09/07/19 01/30/23 History Atorvastatin [Lipitor] 80 mg PO HS 12/30/19 01/30/23 History Isosorbide Mononitrate ER [Imdur] 60 mg PO DAILY 12/30/19 01/30/23 History Metoprolol Succinate (ER) [Toprol 50 mg PO DAILY 12/30/19 01/30/23 History XL] Citalopram Hydrobromide [CeleXA] 40 mg PO DAILY 06/29/20 01/30/23 History Furosemide [Lasix] 20 mg PO DAILY 06/29/20 01/30/23 History Loratadine [Claritin] 10 mg PO DAILY 01/21/21 01/30/23 History amLODIPine [Norvasc] 10 mg PO DAILY #30 tablet 01/25/21 01/30/23 Rx Gabapentin 600 mg PO BID 02/28/22 01/30/23 History Losartan Potassium [Cozaar] 25 mg PO DAILY 02/28/22 01/30/23 History Aspirin [[place] Aspirin EC] 81 mg PO DAILY #14 tab 06/20/22 01/30/23 Rx Lurasidone [Latuda] 40 mg PO HS 06/20/22 01/30/23 History Ondansetron Odt [Zofran ODT] 4 mg PO BID PRN 06/20/22 01/30/23 History Triamcinolone 0.1% Cream [Kenalog 1 applic TOPICAL BID PRN 06/20/22 01/30/23 History 0.1% Cream] sitaGLIPtin [Januvia] 50 mg PO DAILY 06/20/22 01/30/23 History Acetaminophen-Codeine 300-30mg 1 tab PO BID PRN 07/18/22 01/30/23 History [Tylenol w/codeine #3] Darbepoetin Omari [Aranesp] 60 mcg SQ Q14D 01/30/23 01/30/23 History Docusate [Colace] 100 mg PO BID 01/30/23 01/30/23 History Allergies Allergy/AdvReac Type Severity Reaction Status Date / Time Iodinated Contrast Media AdvReac Nausea & Verified 01/30/23 18:35 [Iodinated Contrast- Oral Vomiting and IV Dye] sucralfate AdvReac Nausea & Verified 01/30/23 18:35 Vomiting Physical Exam Vitals: Vital Signs Temp Pulse Pulse Resp BP BP Pulse Ox 01/31/23 08:35 98.7 F 94 16 194/97 97 01/31/23 04:16 98.3 F 71 16 165/80 98 01/31/23 01:20 67 16 01/30/23 23:51 98 F 67 16 152/84 98 01/30/23 20:50 98.3 F 71 19 164/82 96 01/30/23 20:32 72 18 175/90 01/30/23 20:19 72 18 199/91 97 01/30/23 19:53 71 18 207/98 97 01/30/23 18:42 71 18 183/94 96 01/30/23 17:55 68 19 186/110 01/30/23 17:05 68 18 179/98 01/30/23 14:14 98.1 F 67 16 210/108 98 Intake and Output 01/30/23 01/31/23 01/31/23 22:59 06:59 14:59 Intake Total 118 Balance 118 Intake: Oral 118 Other: Voiding Method Toilet Toilet Urinal Urinal # Voids 1 3 Weight 86.183 kg Results 01/31/23 08:30 01/31/23 08:30 Cardiac Enzymes 01/30/23 01/30/23 01/30/23 Range/Units 15:47 15:47 20:43 AST 45 (17-59) U/L Troponin I 0.027 0.021 (0.000-0.034) ng/mL 01/30/23 01/31/23 Range/Units 23:42 08:30 AST 21 (17-59) U/L Troponin I 0.022 (0.000-0.034) ng/mL Coagulation 01/30/23 Range/Units 16:18 PT 10.8 (9.0-12.0) sec APTT 24.7 (22.0-30.0) sec CBC 01/30/23 01/31/23 Range/Units 16:18 08:30 WBC 10.2 7.7 (3.8-10.6) k/uL RBC 4.04 L 3.71 L (4.30-5.90) m/uL Hgb 11.9 L 11.0 L (13.0-17.5) gm/dL Hct 34.8 L 32.8 L (39.0-53.0) % Plt Count 149 L 135 L (150-450) k/uL Comprehensive Metabolic Panel 01/30/23 01/31/23 Range/Units 15:47 08:30 Sodium 135 L 136 L (137-145) mmol/L Potassium 5.1 4.4 (3.5-5.1) mmol/L Chloride 107 106 (98-107) mmol/L Carbon Dioxide 19 L 22 (22-30) mmol/L BUN 27 H 31 H (9-20) mg/dL Creatinine 3.14 H 3.56 H (0.66-1.25) mg/dL Glucose 211 H 351 H (74-99) mg/dL Calcium 7.1 L 6.6 L (8.4-10.2) mg/dL AST 45 21 (17-59) U/L ALT 24 20 (4-49) U/L Alkaline Phosphatase 172 H 148 H (38-126) U/L Total Protein 6.6 5.3 L (6.3-8.2) g/dL Albumin 3.4 L 2.7 L (3.5-5.0) g/dL Current Medications Generic Name Dose Route Start Last Admin Trade Name Freq PRN Reason Stop Dose Admin Acetaminophen 650 mg 01/31/23 10:09 Acetaminophen Tab 325 Mg Tab PO Q6HR PRN Fever and/ or Pain Amlodipine Besylate 10 mg 01/31/23 09:30 01/31/23 09:36 Amlodipine 10 Mg Tab PO 10 mg DAILY JAD Administration Aspirin 81 mg 01/31/23 09:30 01/31/23 09:36 Aspirin 81 Mg PO 81 mg DAILY JAD Administration Atorvastatin Calcium 80 mg 01/31/23 21:00 Atorvastatin 80 Mg Tab PO HS JAD Carvedilol 12.5 mg 01/31/23 17:30 Carvedilol 12.5 Mg Tab PO BID-W/MEALS [facility] Citalopram Hydrobromide 20 mg 01/31/23 09:30 01/31/23 09:36 Citalopram Hydrobromide 20 Mg Tab PO 20 mg DAILY JAD Administration Citalopram Hydrobromide 40 mg 01/31/23 09:30 01/31/23 09:36 Citalopram Hydrobromide 20 Mg Tab PO 40 mg DAILY JAD Administration Clonidine HCl 1 patch 01/30/23 20:15 01/30/23 20:40 Clonidine 0.1 Mg/24hr Patch TRANSDERM 1 patch Q7D JAD Administration Clopidogrel Bisulfate 75 mg 01/31/23 21:00 Clopidogrel 75 Mg Tab PO HS JAD Dextrose/Water 25 ml 01/31/23 09:26 Dextrose 50% Syringe 50 Ml IVP PER PROTOCOL PRN Hypoglycemia Protocol Dextrose/Water 50 ml 01/31/23 09:26 Dextrose 50% Syringe 50 Ml IVP PER PROTOCOL PRN Hypoglycemia Protocol Hydralazine HCl 10 mg 01/31/23 09:15 Hydralazine Hcl 20 Mg/Ml 1 Ml Vial IVP Q6HR PRN Blood Pressure - High Insulin Aspart 0 unit 01/31/23 12:30 Insulin Aspart (Novolog) 100 Unit/Ml Vial SQ ACHS JAD Protocol Isosorbide Mononitrate 60 mg 01/31/23 09:30 01/31/23 09:36 Isosorbide Mononitrate Er 60 Mg Tab.Er.24h PO 60 mg DAILY JAD Administration Morphine Sulfate 4 mg 01/30/23 19:28 01/31/23 01:04 Morphine Sulfate 4 Mg/Ml Syringe IV 4 mg Q4HR PRN Administration Severe Pain (Scale 7 to 10) Naloxone HCl 0.2 mg 01/30/23 19:28 Naloxone 0.4 Mg/Ml 1 Ml Vial IV Q2M PRN Opioid Reversal Ondansetron HCl 4 mg 01/30/23 19:28 01/31/23 08:47 Ondansetron 4 Mg/2 Ml Vial IVP 4 mg Q8HR PRN Administration Nausea And Vomiting Pantoprazole Sodium 40 mg 01/31/23 09:30 01/31/23 09:36 Pantoprazole 40 Mg Tablet PO 40 mg AC-BID JAD Administration Tamsulosin HCl 0.8 mg 01/31/23 21:00 Tamsulosin 0.4 Mg Cap.Er.24h PO HS JAD Intake and Output 0801/31/23 01/31/23 22:59 06:59 14:59 Intake Total 118 Balance 118 Intake: Oral 118 Other: Voiding Method Toilet Toilet Urinal Urinal # Voids 1 3 Weight 86.183 kg 01/31/23 08:30 01/31/23 08:30
[2023-01-31 11:58] LABS: Glucose,Whole Blood 277 mg/dL (70-110)
[2023-01-31] MEDS: INSULIN ASPART (NovoLOG) 100 UNIT/ML VIAL SQ SCH ×3 (11:58→20:18)
--- NOTE | 2023-01-31 13:19 | P.NPCON ---
History of Present Illness - Reason for Consult acute renal failure - History of Present Illness Patient is admitted to the hospital with complaints of significantly elevated blood pressure. Patient was sent in from outpatient procedures where he was going to receive Aranesp. This was not given due to elevated blood pressure and patient was sent to the ER. Blood pressure was 210/108 on initial admission. Patient has been taking his medications as prescribed. Patient denied any chest pains or shortness of breath. Patient is maintained on amlodipine and metoprolol losartan and Lasix at home prior to admission. He is currently back on the amlodipine and started on Coreg. Losartan is on hold due to acute kidney injury. Serum creatinine was 3.5 today. It was 3.1 yesterday. Patient has underlying CK D with previous creatinine at 2.0-2.6 mg/dL in May 2022 and in June 2022. Patient states he has been voiding well. Chest x-ray shows no acute process. Review of Systems As per HPI Past Medical History Past Medical History: Coronary Artery Disease (CAD), CVA/TIA, Diabetes Mellitus, GERD/Reflux, Hyperlipidemia, Hypertension, Myocardial Infarction ([place]), Renal Disease, Rheumatoid Arthritis ([place]) Additional Past Medical History / Comment(s): stroke apr 2017, migranes, diabetic neuropathy arms and legs, stage 2 kidney failure, PANCREATITIS, LEGALLY BLIND, enlarged prostate, trouble urinating Last Myocardial Infarction Date:: 2017? History of Any Multi-Drug Resistant Organisms: None Reported Past Surgical History: Cholecystectomy, Heart Catheterization With Stent, Heart Catheterization With Stent Additional Past Surgical History / Comment(s): Prostrate surgery. HIATAL HERNIA REPAIR -January Past Anesthesia/Blood Transfusion Reactions: No Reported Reaction Additional Past Anesthesia/Blood Transfusion Reaction / Comment(s): never had anethesia Date of Last Stent Placement:: 2017 Past Psychological History: Anxiety, Depression Additional Psychological History / Comment(s): Pt resides with his spouse. He uses a quad cane or walker to ambulate. He is legally blind. He reads minimally with magnifying glass and signs his name only now. His spouse drives him to [employer]. Smoking Status: Never smoker Past Alcohol Use History: None Reported Past Drug Use History: None Reported - Past Family History Mother Family Medical History: CVA/TIA, Diabetes Mellitus, Hypertension Additional Family Medical History / Comment(s): Parkinson's Mother Father Family Medical History: CVA/TIA, Diabetes Mellitus, Myocardial Infarction ([place]) Additional Family Medical History / Comment(s): Father of a [place] in his 50s. Medications and Allergies Home Medications Medication Instructions Recorded Confirmed Type Pantoprazole [Protonix] 40 mg PO BID 11/05/17 01/30/23 History Tamsulosin [Flomax] 0.8 mg PO HS 11/05/17 01/30/23 History Citalopram Hydrobromide [CeleXA] 20 mg PO DAILY 12/12/18 01/30/23 History allopurinoL [Zyloprim] 100 mg PO DAILY 04/05/19 01/30/23 History Clopidogrel Bisulfate [Plavix] 75 mg PO HS 04/06/19 01/30/23 History Glimepiride [Amaryl] 4 mg PO BID 09/07/19 01/30/23 History Atorvastatin [Lipitor] 80 mg PO HS 12/30/19 01/30/23 History Isosorbide Mononitrate ER [Imdur] 60 mg PO DAILY 12/30/19 01/30/23 History Metoprolol Succinate (ER) [Toprol 50 mg PO DAILY 12/30/19 01/30/23 History XL] Citalopram Hydrobromide [CeleXA] 40 mg PO DAILY 06/29/20 01/30/23 History Furosemide [Lasix] 20 mg PO DAILY 06/29/20 01/30/23 History Loratadine [Claritin] 10 mg PO DAILY 01/21/21 01/30/23 History amLODIPine [Norvasc] 10 mg PO DAILY #30 tablet 01/25/21 01/30/23 Rx Gabapentin 600 mg PO BID 02/28/22 01/30/23 History Losartan Potassium [Cozaar] 25 mg PO DAILY 02/28/22 01/30/23 History Aspirin [[place] Aspirin EC] 81 mg PO DAILY #14 tab 06/20/22 01/30/23 Rx Lurasidone [Latuda] 40 mg PO HS 06/20/22 01/30/23 History Ondansetron Odt [Zofran ODT] 4 mg PO BID PRN 06/20/22 01/30/23 History Triamcinolone 0.1% Cream [Kenalog 1 applic TOPICAL BID PRN 06/20/22 01/30/23 History 0.1% Cream] sitaGLIPtin [Januvia] 50 mg PO DAILY 06/20/22 01/30/23 History Acetaminophen-Codeine 300-30mg 1 tab PO BID PRN 07/18/22 01/30/23 History [Tylenol w/codeine #3] Darbepoetin Omari [Aranesp] 60 mcg SQ Q14D 01/30/23 01/30/23 History Docusate [Colace] 100 mg PO BID 01/30/23 01/30/23 History Allergies Allergy/AdvReac Type Severity Reaction Status Date / Time Iodinated Contrast Media AdvReac Nausea & Verified 01/30/23 18:35 [Iodinated Contrast- Oral Vomiting and IV Dye] sucralfate AdvReac Nausea & Verified 01/30/23 18:35 Vomiting Physical Exam Vitals: Vital Signs Temp Pulse Pulse Resp BP BP Pulse Ox 01/31/23 12:00 98.5 F 67 16 156/79 95 01/31/23 08:35 98.7 F 94 16 194/97 97 01/31/23 04:16 98.3 F 71 16 165/80 98 01/31/23 01:20 67 16 01/30/23 23:51 98 F 67 16 152/84 98 01/30/23 20:50 98.3 F 71 19 164/82 96 01/30/23 20:32 72 18 175/90 01/30/23 20:19 72 18 199/91 97 01/30/23 19:53 71 18 207/98 97 01/30/23 18:42 71 18 183/94 96 01/30/23 17:55 68 19 186/110 01/30/23 17:05 68 18 179/98 01/30/23 14:14 98.1 F 67 16 210/108 98 Intake and Output 01/30/23 01/31/23 01/31/23 22:59 06:59 14:59 Intake Total 118 Balance 118 Intake: Oral 118 Other: Voiding Method Toilet Toilet Urinal Urinal # Voids 1 3 Weight 86.183 kg Patient is awake, comfortable, in no acute distress Examination of the heart S1 and S2 Examination of the lungs bilateral breath sounds are heard Abdomen is soft nontender Examination of lower extremities shows no significant edema CODER OPERATOR exam grossly intact Results - Lab Results Most recent lab results Calcium 6.6 mg/dL (8.4-10.2) L 01/31/23 08:30 Phosphorus 5.5 mg/dL (2.5-4.5) H 01/31/23 08:30 Magnesium 1.2 mg/dL (1.6-2.3) L 01/31/23 08:30 01/31/23 08:30 01/31/23 08:30 Assessment and Plan Assessment: 1. Acute kidney injury most likely related to uncontrolled hypertension. Rule out obstructive uropathy. 2. Chronic kidney disease NKF stage IV with baseline creatinine 2-2.6 mg/dL. Etiology is diabetic kidney disease 3. Anemia of chronic disease maintained on Aranesp as outpatient 4. Hypertensive urgency as patient did have chest discomfort. Currently improving. Losartan on hold due to significant acute kidney injury. Can increase dose of carvedilol. No evidence of volume overload. Plan: Check ultrasound of the kidneys Increase dose of carvedilol if blood pressure remains elevated Continue to hold losartan for now. Repeat labs in a.m. Continue Flomax DC clonidine patch prior to discharge.
[2023-01-31] MEDS ORDERED: Magnesium Replacement Protocol 1 EACH MISC MISCELLANE PRN (13:20)
[2023-01-31 13:36] LABS: Chol/HDL Ratio 3.77 Ratio; LDL Cholesterol,Calculated 91.8 mg/dL (0.0-131.0)
--- NOTE | 2023-01-31 13:41 | US ---
EXAMINATION TYPE: US kidneys/renal and bladder DATE OF EXAM: 01/31/2023 COMPARISON: CT 2020, US 2019 CLINICAL INDICATION: Male, 57 years old with history of Poncho; PONCHO EXAM MEASUREMENTS: Right Kidney: 11.1 x 6.4 x 6.5 cm Left Kidney: 11.8 x 6.7 x 5.6 cm Right Kidney: Septated anechoic area seen medially at mid: 1.5 x 1.5 x 1.6 cm. Left Kidney: No hydronephrosis or masses seen Bladder: wnl Bilateral Jets seen: Yes IMPRESSION: Septated cyst right kidney. Correlate for medical renal disease.
--- NOTE | 2023-01-31 13:53 | P.HPIM ---
History of Present Illness H&P Date: 01/31/23 History of present illness; patient is a 57-year-old gentleman with past medical history significant for hypertension, diabetes mellitus been to the ER because of elevated blood pressure. Patient is noncompliant with his blood pressure medications, stated that he was supposed to get IV iron infusion when he was found out to have elevated blood pressures. Patient denies any chest pain. Denies any complaint of headache. Denies any blurred vision. Denies shortness of breath. Denies any swelling of feet. No complaint of nausea, vomiting or altered bowel movements. Initial lab work done in the ER showed WBC 10.2, hemoglobin 11.9, platelet count 149, sodium 135, potassium 5.1, BUN 27, creatinine 3.14, magnesium 1.2 AST 45 ALT 24 EKG done in the ER showed ventricle rate of 65, QRS 101, no ST segment elevation or T-wave inversion seen Chest x-ray done in the ER showed chronic changes without evidence for acute pulmonary disease Patient admitted to medicine service REVIEW OF SYSTEMS: CONSTITUTIONAL: No fever, no malaise, no fatigue. HEENT: No recent visual problems or hearing problems. Denied any sore throat. CARDIOVASCULAR: No chest pain, orthopnea, PND, no palpitations, no syncope. PULMONARY: No shortness of breath, no cough, no hemoptysis. GASTROINTESTINAL: No diarrhea, no nausea, no vomiting, no abdominal pain. NEUROLOGICAL: No headaches, no weakness, no numbness. HEMATOLOGICAL: Denies any bleeding or petechiae. GENITOURINARY: Denies any burning micturition, frequency, or urgency. MUSCULOSKELETAL/RHEUMATOLOGICAL: Denies any joint pain, swelling, or any muscle pain. ENDOCRINE: Denies any polyuria or polydipsia. The rest of the 14-point review of systems is negative. PHYSICAL EXAMINATION: GENERAL: The patient is alert and oriented x3, not in any acute distress. Well developed, well nourished. HEENT: Pupils are round and equally reacting to light. EOMI. No scleral icterus. No conjunctival pallor. Normocephalic, atraumatic. No pharyngeal erythema. No thyromegaly. CARDIOVASCULAR: S1 and S2 present. No murmurs, rubs, or gallops. PULMONARY: Chest is clear to auscultation, no wheezing or crackles. ABDOMEN: Soft, nontender, nondistended, normoactive bowel sounds. No palpable organomegaly. MUSCULOSKELETAL: No joint swelling or deformity. EXTREMITIES: No cyanosis, clubbing, or pedal edema. NEUROLOGICAL: Gross neurological examination did not reveal any focal deficits. SKIN: No rashes. Assessment and plan Hypertensive urgency Acute on chronic kidney disease [id number] diabetes mellitus Hypomagnesemia Monitor vital signs Monitor CBC Monitor CMP Continue telemetry monitoring Trend troponin Resume patient on Norvasc, Toprol, Imdur Monitor blood sugar levels, continue scheduled insulin Continue when necessary IV hydralazine for elevated blood pressure readings above 180 systolic Ordered ultrasound of kidneys Consult foundation director nephrology Labs and medication were reviewed.. Continue same treatment. Continue with symptomatic treatment. Resume home medication. Monitor labs and vitals. DVT and GI prophylaxis. Further recommendations as per clinical course of the patient Dictation was produced using [employer] dictation software. please excuse any grammatical, word or spelling errors. Past Medical History Past Medical History: Coronary Artery Disease (CAD), CVA/TIA, Diabetes Mellitus, GERD/Reflux, Hyperlipidemia, Hypertension, Myocardial Infarction (AR), Renal Disease, Rheumatoid Arthritis (RA) Additional Past Medical History / Comment(s): stroke apr 2017, migranes, diabetic neuropathy arms and legs, stage 2 kidney failure, PANCREATITIS, LEGALLY BLIND, enlarged prostate, trouble urinating Last Myocardial Infarction Date:: 2017? History of Any Multi-Drug Resistant Organisms: None Reported Past Surgical History: Cholecystectomy, Heart Catheterization With Stent, Heart Catheterization With Stent Additional Past Surgical History / Comment(s): Prostrate surgery. HIATAL HERNIA REPAIR -January Past Anesthesia/Blood Transfusion Reactions: No Reported Reaction Additional Past Anesthesia/Blood Transfusion Reaction / Comment(s): never had anethesia Date of Last Stent Placement:: 2017 Past Psychological History: Anxiety, Depression Additional Psychological History / Comment(s): Pt resides with his spouse. He uses a quad cane or walker to ambulate. He is legally blind. He reads minimally with magnifying glass and signs his name only now. His spouse drives him to [employer]. Smoking Status: Never smoker Past Alcohol Use History: None Reported Past Drug Use History: None Reported - Past Family History Mother Family Medical History: CVA/TIA, Diabetes Mellitus, Hypertension Additional Family Medical History / Comment(s): Parkinson's Mother Father Family Medical History: CVA/TIA, Diabetes Mellitus, Myocardial Infarction (AR) Additional Family Medical History / Comment(s): Father of a AR in his 50s. Medications and Allergies Home Medications Medication Instructions Recorded Confirmed Type Pantoprazole [Protonix] 40 mg PO BID 11/05/17 01/30/23 History Tamsulosin [Flomax] 0.8 mg PO HS 11/05/17 01/30/23 History Citalopram Hydrobromide [CeleXA] 20 mg PO DAILY 12/12/18 01/30/23 History allopurinoL [Zyloprim] 100 mg PO DAILY 04/05/19 01/30/23 History Clopidogrel Bisulfate [Plavix] 75 mg PO HS 04/06/19 01/30/23 History Glimepiride [Amaryl] 4 mg PO BID 09/07/19 01/30/23 History Atorvastatin [Lipitor] 80 mg PO HS 12/30/19 01/30/23 History Isosorbide Mononitrate ER [Imdur] 60 mg PO DAILY 12/30/19 01/30/23 History Metoprolol Succinate (ER) [Toprol 50 mg PO DAILY 12/30/19 01/30/23 History XL] Citalopram Hydrobromide [CeleXA] 40 mg PO DAILY 06/29/20 01/30/23 History Furosemide [Lasix] 20 mg PO DAILY 06/29/20 01/30/23 History Loratadine [Claritin] 10 mg PO DAILY 01/21/21 01/30/23 History amLODIPine [Norvasc] 10 mg PO DAILY #30 tablet 01/25/21 01/30/23 Rx Gabapentin 600 mg PO BID 02/28/22 01/30/23 History Losartan Potassium [Cozaar] 25 mg PO DAILY 02/28/22 01/30/23 History Aspirin [Comal Aspirin EC] 81 mg PO DAILY #14 tab 06/20/22 01/30/23 Rx Lurasidone [Latuda] 40 mg PO HS 06/20/22 01/30/23 History Ondansetron Odt [Zofran ODT] 4 mg PO BID PRN 06/20/22 01/30/23 History Triamcinolone 0.1% Cream [Kenalog 1 applic TOPICAL BID PRN 06/20/22 01/30/23 History 0.1% Cream] sitaGLIPtin [Januvia] 50 mg PO DAILY 06/20/22 01/30/23 History Acetaminophen-Codeine 300-30mg 1 tab PO BID PRN 07/18/22 01/30/23 History [Tylenol w/codeine #3] Darbepoetin Omari [Aranesp] 60 mcg SQ Q14D 01/30/23 01/30/23 History Docusate [Colace] 100 mg PO BID 01/30/23 01/30/23 History Allergies Allergy/AdvReac Type Severity Reaction Status Date / Time Iodinated Contrast Media AdvReac Nausea & Verified 01/30/23 18:35 [Iodinated Contrast- Oral Vomiting and IV Dye] sucralfate AdvReac Nausea & Verified 01/30/23 18:35 Vomiting Physical Exam Vitals: Vital Signs Temp Pulse Pulse Resp BP BP Pulse Ox 01/31/23 04:16 98.3 F 71 16 165/80 98 01/31/23 01:20 67 16 01/30/23 23:51 98 F 67 16 152/84 98 01/30/23 20:50 98.3 F 71 19 164/82 96 01/30/23 20:32 72 18 175/90 01/30/23 20:19 72 18 199/91 97 01/30/23 19:53 71 18 207/98 97 01/30/23 18:42 71 18 183/94 96 01/30/23 17:55 68 19 186/110 01/30/23 17:05 68 18 179/98 01/30/23 14:14 98.1 F 67 16 210/108 98 Intake and Output 01/30/23 01/31/23 01/31/23 22:59 06:59 14:59 Intake Total 118 Balance 118 Intake: Oral 118 Other: Voiding Method Toilet Toilet Urinal Urinal # Voids 1 3 Weight 86.183 kg Results CBC & Chem 7: 01/31/23 08:30 01/31/23 08:30 Labs: Abnormal Lab Results - Last 24 Hours (Table) 01/30/23 01/30/23 01/31/23 Range/Units 15:47 16:18 06:13 RBC 4.04 L (4.30-5.90) m/uL Hgb 11.9 L (13.0-17.5) gm/dL Hct 34.8 L (39.0-53.0) % Plt Count 149 L (150-450) k/uL Neutrophils # 8.2 H (1.3-7.7) k/uL Lymphocytes # (1.0-4.8) k/uL Sodium 135 L (137-145) mmol/L Carbon Dioxide 19 L (22-30) mmol/L BUN 27 H (9-20) mg/dL Creatinine 3.14 H (0.66-1.25) mg/dL Glucose 211 H (74-99) mg/dL POC Glucose (mg/dL) 181 H (70-110) mg/dL Calcium 7.1 L (8.4-10.2) mg/dL Phosphorus (2.5-4.5) mg/dL Magnesium 1.2 L (1.6-2.3) mg/dL Alkaline Phosphatase 172 H (38-126) U/L Total Protein (6.3-8.2) g/dL Albumin 3.4 L (3.5-5.0) g/dL 01/31/23 01/31/23 Range/Units 08:30 08:30 RBC 3.71 L (4.30-5.90) m/uL Hgb 11.0 L (13.0-17.5) gm/dL Hct 32.8 L (39.0-53.0) % Plt Count 135 L (150-450) k/uL Neutrophils # (1.3-7.7) k/uL Lymphocytes # 0.7 L (1.0-4.8) k/uL Sodium 136 L (137-145) mmol/L Carbon Dioxide (22-30) mmol/L BUN 31 H (9-20) mg/dL Creatinine 3.56 H (0.66-1.25) mg/dL Glucose 351 H (74-99) mg/dL POC Glucose (mg/dL) (70-110) mg/dL Calcium 6.6 L (8.4-10.2) mg/dL Phosphorus 5.5 H (2.5-4.5) mg/dL Magnesium 1.2 L (1.6-2.3) mg/dL Alkaline Phosphatase 148 H (38-126) U/L Total Protein 5.3 L (6.3-8.2) g/dL Albumin 2.7 L (3.5-5.0) g/dL Thrombosis Risk Factor Assmnt - Choose All That Apply Any of the Below Risk Factors Present?: Yes Each Factor Represents 1 point: Age 41-60 years, Obesity (BMI >25) Thrombosis Risk Factor Assessment Total Risk Factor Score: 2 Thrombosis Risk Factor Assessment Level: Low Risk
[2023-01-31] MEDS: MAGNESIUM SULFATE-D5W PMX 1 GM in DEXTROSE/WATER 1 100ML.BAG IVPB SCH ×4 (14:03→18:38)
[2023-01-31 16:24] LABS: Glucose,Whole Blood 154 mg/dL (70-110)
[2023-01-31] MEDS: carvediloL 12.5 MG TAB PO SCH (16:56)
[2023-01-31 20:14] LABS: Glucose,Whole Blood 189 mg/dL (70-110)
[2023-01-31] MEDS: TAMSULOSIN 0.4 MG CAP.ER.24H PO SCH (20:18)
[2023-01-31] MEDS: CLOPIDOGREL 75 MG TAB PO SCH (20:18)
[2023-01-31] MEDS: ACETAMINOPHEN TAB 325 MG TAB PO PRN (20:18)
[2023-01-31] MEDS: ATORVASTATIN 80 MG TAB PO SCH (20:18)
[2023-01-31 22:08] LABS: Amorphous Sediment,Urine Rare /hpf; Appearance,Urine Clear (Clear); Bacteria,Urine Rare /hpf; Bilirubin,Urine Negative (Negative); Blood,Urine Small (Negative); Calcium Oxalate Crystals,Urine Rare /hpf; Color,Urine Light Yellow; Glucose,Urine (UA) 4+ (Negative); Hyaline Casts,Urine 38 /lpf (0-2); Ketones,Urine Negative (Negative); Leukocyte Esterase,Urine Negative (Negative); Mucus,Urine Rare /hpf; Nitrite,Urine Negative (Negative); Protein,Urine 4+ (Negative); RBC,Urine 2 /hpf (0-5); Specific Gravity,Urine 1.013 (1.001-1.035); Squamous Epithelial Cell,Urine <1 /hpf (0-4); Urobilinogen,Urine <2.0 mg/dL (<2.0); WBC,Urine 2 /hpf (0-5)
[2023-02-01 06:05] LABS: Glucose,Whole Blood 151 mg/dL (70-110)
[2023-02-01] MEDS: INSULIN ASPART (NovoLOG) 100 UNIT/ML VIAL SQ SCH ×4 (06:14→20:27)
[2023-02-01] MEDS: PANTOPRAZOLE 40 MG TABLET PO SCH ×2 (06:22→17:17)
[2023-02-01] MEDS: carvediloL 12.5 MG TAB PO SCH ×2 (06:22→17:17)
[2023-02-01] MEDS: CITALOPRAM HYDROBROMIDE 20 MG TAB PO SCH ×2 (09:35)
[2023-02-01] MEDS: ISOSORBIDE MONONITRATE ER 60 MG TAB.ER.24H PO SCH (09:35)
[2023-02-01] MEDS: ASPIRIN 81 MG PO SCH (09:36)
[2023-02-01] MEDS: ACETAMINOPHEN TAB 325 MG TAB PO PRN (09:38)
[2023-02-01 09:49] LABS: African American GFR (CKD) 18 (>60 ml/min/1.73 sqM); Anion Gap 4 mmol/L; Blood Urea Nitrogen 38 mg/dL (9-20); Carbon Dioxide 21 mmol/L (22-30); Chloride 107 mmol/L (98-107); Glucose 160 mg/dL (74-99); Non-African American GFR(CKD) 15 (>60 ml/min/1.73 sqM); Potassium 4.3 mmol/L (3.5-5.1); Sodium 132 mmol/L (137-145)
[2023-02-01 10:15] LABS: Calcium 6.4 mg/dL (8.4-10.2)
[2023-02-01] MEDS: amLODIPine 10 MG TAB PO SCH (10:34)
[2023-02-01] MEDS: NIFEdipine XL 90 MG TAB.ER.24 PO SCH (10:42)
[2023-02-01 11:39] LABS: Glucose,Whole Blood 263 mg/dL (70-110)
--- NOTE | 2023-02-01 11:47 | P.PN ---
Subjective Patient is seen for follow-up for acute kidney injury and top of chronic kidney disease. Patient was admitted to the hospital with uncontrolled hypertension and chest pain. Blood pressure is much improved. Angiotensin receptor blockers on hold secondary to acute kidney injury. Serum creatinine has increased further to 4.1 mg/dL today. Patient has been voiding. Ultrasound shows no evidence of hydronephrosis. Objective - Vital Signs Vital signs: Vital Signs Temp 98.1 F 02/01/23 08:00 Pulse 65 02/01/23 08:00 Resp 16 02/01/23 08:00 BP 155/75 02/01/23 08:00 Pulse Ox 98 02/01/23 08:00 FiO2 Intake & Output 01/31/23 02/01/23 02/01/23 18:59 06:59 18:59 Intake Total 1010 118 Balance 1010 118 Intake: Intake, IV Titration 450 0 Amount Magnesium Sulfate-D5w Pmx 300 0 1 gm In Dextrose/Water 1 100ml.bag @ 100 mls/hr IVPB Q1H [facility] Rx#: [id number] Sodium Chloride 0.9% 1, 150 000 ml @ 75 mls/hr IV . [id number] [facility] Rx#:[id number] Oral 560 118 Other: Voiding Method Toilet Urinal # Voids 3 2 - Exam Patient is awake, comfortable, in no acute distress Examination of the heart S1 and S2 Examination of the lungs bilateral breath sounds are heard Abdomen is soft nontender Examination of lower extremities shows no significant edema ANTHROPOLOGICAL LINGUIST exam grossly intact - Labs CBC & Chem 7: 01/31/23 08:30 02/01/23 07:18 Labs: Abnormal Lab Results - Last 24 Hours (Table) 01/31/23 01/31/23 01/31/23 Range/Units 08:30 11:50 16:22 Sodium (137-145) mmol/L Carbon Dioxide (22-30) mmol/L BUN (9-20) mg/dL Creatinine (0.66-1.25) mg/dL Glucose (74-99) mg/dL POC Glucose (mg/dL) 277 H 154 H (70-110) mg/dL Hemoglobin A1c (<=6.0) % Calcium (8.4-10.2) mg/dL Magnesium (1.6-2.3) mg/dL Triglycerides 169.00 H (0.00-149.00) mg/dL Urine Protein (Negative) Urine Glucose (UA) (Negative) Urine Blood (Negative) Calcium Oxalate Crystal (None) /hpf Amorphous Sediment (None) /hpf Urine Bacteria (None) /hpf Hyaline Casts (0-2) /lpf Urine Mucus (None) /hpf 01/31/23 01/31/23 02/01/23 Range/Units 20:04 21:40 06:03 Sodium (137-145) mmol/L Carbon Dioxide (22-30) mmol/L BUN (9-20) mg/dL Creatinine (0.66-1.25) mg/dL Glucose (74-99) mg/dL POC Glucose (mg/dL) 189 H 151 H (70-110) mg/dL Hemoglobin A1c (<=6.0) % Calcium (8.4-10.2) mg/dL Magnesium (1.6-2.3) mg/dL Triglycerides (0.00-149.00) mg/dL Urine Protein 4+ H (Negative) Urine Glucose (UA) 4+ H (Negative) Urine Blood Small H (Negative) Calcium Oxalate Crystal Rare H (None) /hpf Amorphous Sediment Rare H (None) /hpf Urine Bacteria Rare H (None) /hpf Hyaline Casts 38 H (0-2) /lpf Urine Mucus Rare H (None) /hpf 02/01/23 02/01/23 02/01/23 Range/Units 07:18 07:18 07:18 Sodium 132 L (137-145) mmol/L Carbon Dioxide 21 L (22-30) mmol/L BUN 38 H (9-20) mg/dL Creatinine 4.11 H (0.66-1.25) mg/dL Glucose 160 H (74-99) mg/dL POC Glucose (mg/dL) (70-110) mg/dL Hemoglobin A1c 7.7 H (<=6.0) % Calcium 6.4 L* (8.4-10.2) mg/dL Magnesium 2.4 H (1.6-2.3) mg/dL Triglycerides (0.00-149.00) mg/dL Urine Protein (Negative) Urine Glucose (UA) (Negative) Urine Blood (Negative) Calcium Oxalate Crystal (None) /hpf Amorphous Sediment (None) /hpf Urine Bacteria (None) /hpf Hyaline Casts (0-2) /lpf Urine Mucus (None) /hpf 08/13/23 Range/Units 11:33 Sodium (137-145) mmol/L Carbon Dioxide (22-30) mmol/L BUN (9-20) mg/dL Creatinine (0.66-1.25) mg/dL Glucose (74-99) mg/dL POC Glucose (mg/dL) 263 H (70-110) mg/dL Hemoglobin A1c (<=6.0) % Calcium (8.4-10.2) mg/dL Magnesium (1.6-2.3) mg/dL Triglycerides (0.00-149.00) mg/dL Urine Protein (Negative) Urine Glucose (UA) (Negative) Urine Blood (Negative) Calcium Oxalate Crystal (None) /hpf Amorphous Sediment (None) /hpf Urine Bacteria (None) /hpf Hyaline Casts (0-2) /lpf Urine Mucus (None) /hpf Assessment and Plan Assessment: 1. Acute kidney injury most likely related to uncontrolled hypertension. No evidence of obstruction on ultrasound. Renal function has further worsened. I will add IV fluids 2. Chronic kidney disease NKF stage IV with baseline creatinine 2-2.6 mg/dL. Etiology is diabetic kidney disease 3. Anemia of chronic disease maintained on Aranesp as outpatient 4. Hypertensive urgency as patient did have chest discomfort. Currently improving. Losartan on hold due to significant acute kidney injury. Can increase dose of carvedilol. No evidence of volume overload. Plan: Add IV fluids since renal function has worsened. Increase dose of carvedilol if blood pressure remains elevated Continue to hold losartan for now. Repeat labs in a.m. Continue Flomax DC clonidine patch prior to discharge.
--- NOTE | 2023-02-01 11:53 | P.PN ---
Subjective Progress Note Date: 02/01/23 The patient is a 57-year-old male who is currently admitted to the hospital with uncontrolled hypertension. Systolic pressures are greater than 200. Yesterday his beta ronni was switched to carvedilol with minimal improvement in blood pressure readings overnight. Patient states overall he feels well. No chest pain, chest pressure, shortness of breath. He states his been up ambulating around his room and denies any dizziness or lightheadedness. GENERAL: Well-appearing, well-nourished and in no acute distress. NECK: Supple without JVD or thyromegaly. LUNGS: Breath sounds clear to auscultation bilaterally. Respiration equal and unlabored. No wheezes, rales or rhonchi. HEART: Regular rate and rhythm without murmurs, rubs or gallops. S1 and S2 heard. EXTREMITIES: Normal range of motion, no edema. No clubbing or cyanosis. Peripheral pulses intact and strong. VITALS: Systolic pressures averaging between 140s to 160s TELEMETRY: Sinus rhythm overnight LABS: Sodium 132, potassium 4.3, BUN 38, creatinine 4.11, hemoglobin A1c 7.7, magnesium 2.4 IMPRESSION: Hypertensive crisis Chronic kidney disease History of coronary artery disease History of hyperlipidemia History diabetes History of CVA PLAN: Discontinue amlodipine and start Procardia Discontinue clonidine patch Maximize beta ronni thereafter Further recommendations to be based on clinical course I am dictating on behalf of Dr Hipolito Salmon's history/physical and assessment/plan. Objective - Vital Signs Vital signs: Vital Signs Temp 98.1 F 02/01/23 08:00 Pulse 65 02/01/23 08:00 Resp 16 02/01/23 08:00 BP 155/75 02/01/23 08:00 Pulse Ox 98 02/01/23 08:00 FiO2 Intake & Output 01/31/23 02/01/23 02/01/23 18:59 06:59 18:59 Intake Total 1010 118 Balance 1010 118 Intake: Intake, IV Titration 450 0 Amount Magnesium Sulfate-D5w Pmx 300 0 1 gm In Dextrose/Water 1 100ml.bag @ 100 mls/hr IVPB Q1H [facility] Rx#: [id number] Sodium Chloride 0.9% 1, 150 000 ml @ 75 mls/hr IV . [id number] [facility] Rx#:[id number] Oral 560 118 Other: Voiding Method Toilet Urinal # Voids 3 2 - Labs CBC & Chem 7: 01/31/23 08:30 02/01/23 07:18 Labs: Abnormal Lab Results - Last 24 Hours (Table) 01/31/23 01/31/23 01/31/23 Range/Units 08:30 11:50 16:22 Sodium (137-145) mmol/L Carbon Dioxide (22-30) mmol/L BUN (9-20) mg/dL Creatinine (0.66-1.25) mg/dL Glucose (74-99) mg/dL POC Glucose (mg/dL) 277 H 154 H (70-110) mg/dL Hemoglobin A1c (<=6.0) % Calcium (8.4-10.2) mg/dL Magnesium (1.6-2.3) mg/dL Triglycerides 169.00 H (0.00-149.00) mg/dL Urine Protein (Negative) Urine Glucose (UA) (Negative) Urine Blood (Negative) Calcium Oxalate Crystal (None) /hpf Amorphous Sediment (None) /hpf Urine Bacteria (None) /hpf Hyaline Casts (0-2) /lpf Urine Mucus (None) /hpf 01/31/23 01/31/23 02/01/23 Range/Units 20:04 21:40 06:03 Sodium (137-145) mmol/L Carbon Dioxide (22-30) mmol/L BUN (9-20) mg/dL Creatinine (0.66-1.25) mg/dL Glucose (74-99) mg/dL POC Glucose (mg/dL) 189 H 151 H (70-110) mg/dL Hemoglobin A1c (<=6.0) % Calcium (8.4-10.2) mg/dL Magnesium (1.6-2.3) mg/dL Triglycerides (0.00-149.00) mg/dL Urine Protein 4+ H (Negative) Urine Glucose (UA) 4+ H (Negative) Urine Blood Small H (Negative) Calcium Oxalate Crystal Rare H (None) /hpf Amorphous Sediment Rare H (None) /hpf Urine Bacteria Rare H (None) /hpf Hyaline Casts 38 H (0-2) /lpf Urine Mucus Rare H (None) /hpf 02/01/23 02/01/23 02/01/23 Range/Units 07:18 07:18 07:18 Sodium 132 L (137-145) mmol/L Carbon Dioxide 21 L (22-30) mmol/L BUN 38 H (9-20) mg/dL Creatinine 4.11 H (0.66-1.25) mg/dL Glucose 160 H (74-99) mg/dL POC Glucose (mg/dL) (70-110) mg/dL Hemoglobin A1c 7.7 H (<=6.0) % Calcium 6.4 L* (8.4-10.2) mg/dL Magnesium 2.4 H (1.6-2.3) mg/dL Triglycerides (0.00-149.00) mg/dL Urine Protein (Negative) Urine Glucose (UA) (Negative) Urine Blood (Negative) Calcium Oxalate Crystal (None) /hpf Amorphous Sediment (None) /hpf Urine Bacteria (None) /hpf Hyaline Casts (0-2) /lpf Urine Mucus (None) /hpf 02/01/23 Range/Units 11:33 Sodium (137-145) mmol/L Carbon Dioxide (22-30) mmol/L BUN (9-20) mg/dL Creatinine (0.66-1.25) mg/dL Glucose (74-99) mg/dL POC Glucose (mg/dL) 263 H (70-110) mg/dL Hemoglobin A1c (<=6.0) % Calcium (8.4-10.2) mg/dL Magnesium (1.6-2.3) mg/dL Triglycerides (0.00-149.00) mg/dL Urine Protein (Negative) Urine Glucose (UA) (Negative) Urine Blood (Negative) Calcium Oxalate Crystal (None) /hpf Amorphous Sediment (None) /hpf Urine Bacteria (None) /hpf Hyaline Casts (0-2) /lpf Urine Mucus (None) /hpf
[2023-02-01] MEDS: SODIUM CHLORIDE 0.9% 1,000 ML IV SCH (12:41)
--- NOTE | 2023-02-01 12:53 | P.PN ---
Subjective Progress Note Date: 02/01/23 patient is a 57-year-old gentleman with past medical history significant for hypertension, diabetes mellitus been to the ER because of elevated blood pressure. Patient is noncompliant with his blood pressure medications, stated that he was supposed to get IV iron infusion when he was found out to have elevated blood pressures. Patient denies any chest pain. Denies any complaint of headache. Denies any blurred vision. Denies shortness of breath. Denies any swelling of feet. No complaint of nausea, vomiting or altered bowel movements. Initial lab work done in the ER showed WBC 10.2, hemoglobin 11.9, platelet count 149, sodium 135, potassium 5.1, BUN 27, creatinine 3.14, magnesium 1.2 AST 45 ALT 24 EKG done in the ER showed ventricle rate of 65, QRS 101, no ST segment elevation or T-wave inversion seen Chest x-ray done in the ER showed chronic changes without evidence for acute pulmonary disease Patient admitted to medicine service 02/01. Patient seen and examined. Blood pressure is improved, last 2 blood pressure readings were better with systolics in the 150s. BUN this morning is 38, creatinine 4.11 REVIEW OF SYSTEMS: CONSTITUTIONAL: No fever, no malaise,. CARDIOVASCULAR: No chest pain, no palpitations, no syncope. PULMONARY: No shortness of breath, no cough, GASTROINTESTINAL: No diarrhea, no nausea, no vomiting, no abdominal pain. NEUROLOGICAL: No headaches, no weakness, PHYSICAL EXAMINATION: GENERAL: The patient is alert and oriented x3, not in any acute distress. Well developed, well nourished. HEENT: Pupils are round and equally reacting to light. EOMI. No scleral icterus. No conjunctival pallor. Normocephalic, atraumatic. No pharyngeal erythema. No thyromegaly. CARDIOVASCULAR: S1 and S2 present. No murmurs, rubs, or gallops. PULMONARY: Chest is clear to auscultation, no wheezing or crackles. ABDOMEN: Soft, nontender, nondistended, normoactive bowel sounds. No palpable organomegaly. MUSCULOSKELETAL: No joint swelling or deformity. EXTREMITIES: No cyanosis, clubbing, or pedal edema. NEUROLOGICAL: Gross neurological examination did not reveal any focal deficits. SKIN: No rashes. Assessment and plan Monitor vital signs Monitor CBC Monitor CMP Continue telemetry monitoring Avoid nephrotoxic agents continue Coreg, Imdur, Procardia start IV fluids Nephrology following Cardiology following Labs and medication were reviewed.. Continue same treatment. Continue with symptomatic treatment. Resume home medication. Monitor labs and vitals. DVT and GI prophylaxis. Further recommendations as per clinical course of the patient Dictation was produced using [employer] dictation software. please excuse any grammatical, word or spelling errors. Objective - Vital Signs Vital signs: Vital Signs Temp 98.5 F 02/01/23 04:00 Pulse 59 L 02/01/23 04:00 Resp 16 02/01/23 04:00 BP 144/71 02/01/23 04:00 Pulse Ox 96 02/01/23 04:00 FiO2 Intake & Output 01/31/23 02/01/23 02/01/23 18:59 06:59 18:59 Intake Total 1010 118 Balance 1010 118 Intake: Intake, IV Titration 450 Amount Magnesium Sulfate-D5w Pmx 300 1 gm In Dextrose/Water 1 100ml.bag @ 100 mls/hr IVPB Q1H [facility] Rx#: [id number] Sodium Chloride 0.9% 1, 150 000 ml @ 75 mls/hr IV . [id number] [facility] Rx#:[id number] Oral 560 118 Other: Voiding Method Toilet Urinal # Voids 3 2 - Labs CBC & Chem 7: 01/31/23 08:30 02/01/23 07:18 Labs: Abnormal Lab Results - Last 24 Hours (Table) 01/31/23 01/31/23 01/31/23 Range/Units 08:30 11:50 16:22 Sodium (137-145) mmol/L Carbon Dioxide (22-30) mmol/L BUN (9-20) mg/dL Creatinine (0.66-1.25) mg/dL Glucose (74-99) mg/dL POC Glucose (mg/dL) 277 H 154 H (70-110) mg/dL Calcium (8.4-10.2) mg/dL Magnesium (1.6-2.3) mg/dL Triglycerides 169.00 H (0.00-149.00) mg/dL Urine Protein (Negative) Urine Glucose (UA) (Negative) Urine Blood (Negative) Calcium Oxalate Crystal (None) /hpf Amorphous Sediment (None) /hpf Urine Bacteria (None) /hpf Hyaline Casts (0-2) /lpf Urine Mucus (None) /hpf 01/31/23 01/31/23 02/01/23 Range/Units 20:04 21:40 06:03 Sodium (137-145) mmol/L Carbon Dioxide (22-30) mmol/L BUN (9-20) mg/dL Creatinine (0.66-1.25) mg/dL Glucose (74-99) mg/dL POC Glucose (mg/dL) 189 H 151 H (70-110) mg/dL Calcium (8.4-10.2) mg/dL Magnesium (1.6-2.3) mg/dL Triglycerides (0.00-149.00) mg/dL Urine Protein 4+ H (Negative) Urine Glucose (UA) 4+ H (Negative) Urine Blood Small H (Negative) Calcium Oxalate Crystal Rare H (None) /hpf Amorphous Sediment Rare H (None) /hpf Urine Bacteria Rare H (None) /hpf Hyaline Casts 38 H (0-2) /lpf Urine Mucus Rare H (None) /hpf 02/01/23 02/01/23 Range/Units 07:18 07:18 Sodium 132 L (137-145) mmol/L Carbon Dioxide 21 L (22-30) mmol/L BUN 38 H (9-20) mg/dL Creatinine 4.11 H (0.66-1.25) mg/dL Glucose 160 H (74-99) mg/dL POC Glucose (mg/dL) (70-110) mg/dL Calcium 6.4 L* (8.4-10.2) mg/dL Magnesium 2.4 H (1.6-2.3) mg/dL Triglycerides (0.00-149.00) mg/dL Urine Protein (Negative) Urine Glucose (UA) (Negative) Urine Blood (Negative) Calcium Oxalate Crystal (None) /hpf Amorphous Sediment (None) /hpf Urine Bacteria (None) /hpf Hyaline Casts (0-2) /lpf Urine Mucus (None) /hpf
[2023-02-01 16:43] LABS: Glucose,Whole Blood 176 mg/dL (70-110)
[2023-02-01 20:13] LABS: Glucose,Whole Blood 316 mg/dL (70-110)
[2023-02-01] MEDS: CLOPIDOGREL 75 MG TAB PO SCH (20:26)
[2023-02-01] MEDS: ATORVASTATIN 80 MG TAB PO SCH (20:26)
[2023-02-01] MEDS: TAMSULOSIN 0.4 MG CAP.ER.24H PO SCH (20:26)
[2023-02-01] MEDS: LORATADINE 10 MG TAB PO SCH (21:40)
[2023-02-02] MEDS: SODIUM CHLORIDE 0.9% 1,000 ML IV SCH ×2 (01:19→17:03)
[2023-02-02 06:20] LABS: Glucose,Whole Blood 197 mg/dL (70-110)
[2023-02-02] MEDS: carvediloL 12.5 MG TAB PO SCH ×2 (06:37→17:03)
[2023-02-02] MEDS: INSULIN ASPART (NovoLOG) 100 UNIT/ML VIAL SQ SCH ×4 (06:37→21:41)
[2023-02-02] MEDS: PANTOPRAZOLE 40 MG TABLET PO SCH ×2 (06:37→17:03)
[2023-02-02] MEDS: ASPIRIN 81 MG PO SCH (10:06)
[2023-02-02] MEDS: NIFEdipine XL 90 MG TAB.ER.24 PO SCH (10:06)
[2023-02-02] MEDS: ISOSORBIDE MONONITRATE ER 60 MG TAB.ER.24H PO SCH (10:06)
[2023-02-02] MEDS: CITALOPRAM HYDROBROMIDE 20 MG TAB PO SCH ×2 (10:16)
[2023-02-02 11:57] LABS: Glucose,Whole Blood 289 mg/dL (70-110)
--- NOTE | 2023-02-02 12:35 | P.PN ---
Subjective Patient is seen for follow-up for acute kidney injury on top of chronic kidney disease. Patient was admitted to the hospital with uncontrolled hypertension and chest pain. Blood pressure is much improved. Angiotensin receptor blockers on hold secondary to acute kidney injury. Serum creatinine has increased further to 4.1 mg/dL yesterday. Patient was noted to have significant urine retention of 800 mL and Garcia catheter was placed. Also started on IV fluids yesterday. Labs are pending from today. No significant complaints today. Objective - Vital Signs Vital signs: Vital Signs Temp 97.8 F 02/02/23 08:00 Pulse 69 02/02/23 08:00 Resp 18 02/02/23 08:00 BP 159/73 02/02/23 08:00 Pulse Ox 95 02/02/23 08:25 FiO2 Intake & Output 02/01/23 02/02/23 02/02/23 18:59 06:59 18:59 Intake Total 1196 750 Output Total 1150 800 Balance 1196 -1150 -50 Weight 84.5 kg Intake: Intake, IV Titration 300 150 Amount Magnesium Sulfate-D5w Pmx 0 1 gm In Dextrose/Water 1 100ml.bag @ 100 mls/hr IVPB Q1H [facility] Rx#: [id number] Sodium Chloride 0.9% 1, 300 150 000 ml @ 75 mls/hr IV . [id number] [facility] Rx#:[id number] Oral 896 600 Output: Urine 1150 0 Post Void Residual 800 Other: Voiding Method Urinal Urinal - Exam Patient is awake, comfortable, in no acute distress Examination of the heart S1 and S2 Examination of the lungs bilateral breath sounds are heard Abdomen is soft nontender Examination of lower extremities shows no significant edema [employer] exam grossly intact - Labs CBC & Chem 7: 01/31/23 08:30 02/01/23 07:18 Labs: Abnormal Lab Results - Last 24 Hours (Table) 02/01/23 02/01/23 02/02/23 Range/Units 16:41 20:11 06:18 POC Glucose (mg/dL) 176 H 316 H 197 H (70-110) mg/dL 02/02/23 Range/Units 11:43 POC Glucose (mg/dL) 289 H (70-110) mg/dL Assessment and Plan Assessment: 1. Acute kidney injury most likely related to uncontrolled hypertension and urine retention. Possible component of hypovolemia as well. Started on IV fluids. 2. Chronic kidney disease NKF stage IV with baseline creatinine 2-2.6 mg/dL. Etiology is diabetic kidney disease 3. Anemia of chronic disease maintained on Aranesp as outpatient 4. Hypertensive urgency as patient did have chest discomfort. Currently improving. Losartan on hold due to significant acute kidney injury. Can increase dose of carvedilol. No evidence of volume overload. 5. Urine retention status post Garcia catheter placement. 800 mL of urine was noted post void. Plan: Continue IV fluids Continue with Garcia catheter Continue to hold losartan for now. Repeat labs in a.m. and follow-up on labs from today. Continue Flomax
--- NOTE | 2023-02-02 13:56 | P.PN ---
Subjective Progress Note Date: 02/02/23 The patient is a 57-year-old male who is currently admitted to the hospital with uncontrolled hypertension. Systolic pressures are greater than 200. Yesterday his beta ronni was switched to carvedilol with minimal improvement in blood pressure readings overnight. Patient states overall he feels well. No chest pain, chest pressure, shortness of breath. He states his been up ambulating around his room and denies any dizziness or lightheadedness. VITALS: Systolic pressures averaging between 140s to 160s TELEMETRY: Sinus rhythm overnight LABS: Sodium 132, potassium 4.3, BUN 38, creatinine 4.11, hemoglobin A1c 7.7, magnesium 2.4 02/02 Patient is seen today in follow-up. He denies any new concerns. No chest pain or shortness of breath. Blood pressure 159/73. Medication changes were made yesterday. The patient denies any new concerns today. No chest pain or shortness of breath. Blood pressure 159/73. GENERAL: Well-appearing, well-nourished and in no acute distress. NECK: Supple without JVD or thyromegaly. LUNGS: Breath sounds clear to auscultation bilaterally. Respiration equal and unlabored. No wheezes, rales or rhonchi. HEART: Regular rate and rhythm without murmurs, rubs or gallops. S1 and S2 heard. EXTREMITIES: Normal range of motion, no edema. No clubbing or cyanosis. P eripheral pulses intact and strong. IMPRESSION: Hypertensive crisis Chronic kidney disease History of coronary artery disease History of hyperlipidemia History diabetes History of CVA PLAN: Continue patient on Procardia Continue Coreg for 0.5 mg twice daily Continue other cardiac medications Continue to monitor blood pressure closely Further recommendations to be based on clinical course Nurse practitioner note has been reviewed, I agree with the documented findings and plan of care. Patient was seen and examined. Objective - Vital Signs Vital signs: Vital Signs Temp 97 F L 02/01/23 20:00 Pulse 64 02/02/23 04:00 Resp 15 02/02/23 04:00 BP 137/72 02/02/23 04:00 Pulse Ox 95 02/02/23 08:25 FiO2 Intake & Output 02/01/23 02/02/23 02/02/23 18:59 06:59 18:59 Intake Total 1196 600 Output Total 1150 800 Balance 1196 -1150 -200 Weight 84.5 kg Intake: Intake, IV Titration 300 Amount Magnesium Sulfate-D5w Pmx 0 1 gm In Dextrose/Water 1 100ml.bag @ 100 mls/hr IVPB Q1H [facility] Rx#: [id number] Sodium Chloride 0.9% 1, 300 000 ml @ 75 mls/hr IV . [id number] [facility] Rx#:[id number] Oral 896 600 Output: Urine 1150 Post Void Residual 800 Other: Voiding Method Urinal - Labs CBC & Chem 7: 01/31/23 08:30 02/01/23 07:18 Labs: Abnormal Lab Results - Last 24 Hours (Table) 02/01/23 02/01/23 02/01/23 Range/Units 07:18 07:18 11:33 Sodium 132 L (137-145) mmol/L Carbon Dioxide 21 L (22-30) mmol/L BUN 38 H (9-20) mg/dL Creatinine 4.11 H (0.66-1.25) mg/dL Glucose 160 H (74-99) mg/dL POC Glucose (mg/dL) 263 H (70-110) mg/dL Hemoglobin A1c 7.7 H (<=6.0) % Calcium 6.4 L* (8.4-10.2) mg/dL 02/01/23 02/01/23 02/02/23 Range/Units 16:41 20:11 06:18 Sodium (137-145) mmol/L Carbon Dioxide (22-30) mmol/L BUN (9-20) mg/dL Creatinine (0.66-1.25) mg/dL Glucose (74-99) mg/dL POC Glucose (mg/dL) 176 H 316 H 197 H (70-110) mg/dL Hemoglobin A1c (<=6.0) % Calcium (8.4-10.2) mg/dL
--- NOTE | 2023-02-02 14:30 | P.PN ---
Subjective Progress Note Date: 02/02/23 patient is a 57-year-old gentleman with past medical history significant for hypertension, diabetes mellitus been to the ER because of elevated blood pressure. Patient is noncompliant with his blood pressure medications, stated that he was supposed to get IV iron infusion when he was found out to have elevated blood pressures. Patient denies any chest pain. Denies any complaint of headache. Denies any blurred vision. Denies shortness of breath. Denies any swelling of feet. No complaint of nausea, vomiting or altered bowel movements. Initial lab work done in the ER showed WBC 10.2, hemoglobin 11.9, platelet count 149, sodium 135, potassium 5.1, BUN 27, creatinine 3.14, magnesium 1.2 AST 45 ALT 24 EKG done in the ER showed ventricle rate of 65, QRS 101, no ST segment elevation or T-wave inversion seen Chest x-ray done in the ER showed chronic changes without evidence for acute pulmonary disease Patient admitted to medicine service 02/01. Patient seen and examined. Blood pressure is improved, last 2 blood pressure readings were better with systolics in the 150s. BUN this morning is 38, creatinine 4.11 02/02. Patient seen and examined. Denies any chest pain, no shortness of breath. No swelling of legs REVIEW OF SYSTEMS: CONSTITUTIONAL: No fever, no malaise,. CARDIOVASCULAR: No chest pain, no palpitations, no syncope. PULMONARY: No shortness of breath, no cough, GASTROINTESTINAL: No diarrhea, no nausea, no vomiting, no abdominal pain. NEUROLOGICAL: No headaches, no weakness, PHYSICAL EXAMINATION: GENERAL: The patient is alert and oriented x3, not in any acute distress. Well developed, well nourished. HEENT: Pupils are round and equally reacting to light. EOMI. No scleral icterus. No conjunctival pallor. Normocephalic, atraumatic. No pharyngeal erythema. No thyromegaly. CARDIOVASCULAR: S1 and S2 present. No murmurs, rubs, or gallops. PULMONARY: Chest is clear to auscultation, no wheezing or crackles. ABDOMEN: Soft, nontender, nondistended, normoactive bowel sounds. No palpable organomegaly. MUSCULOSKELETAL: No joint swelling or deformity. EXTREMITIES: No cyanosis, clubbing, or pedal edema. NEUROLOGICAL: Gross neurological examination did not reveal any focal deficits. SKIN: No rashes. Assessment and plan Monitor vital signs Monitor CBC Monitor CMP Continue telemetry monitoring Avoid nephrotoxic agents continue Coreg, Imdur, Procardia Continue IV fluids Nephrology following Cardiology following Labs and medication were reviewed.. Continue same treatment. Continue with symptomatic treatment. Resume home medication. Monitor labs and vitals. DVT and GI prophylaxis. Further recommendations as per clinical course of the patient Dictation was produced using [employer] dictation software. please excuse any grammatical, word or spelling errors. Objective - Vital Signs Vital signs: Vital Signs Temp 97.8 F 02/02/23 08:00 Pulse 69 02/02/23 08:00 Resp 18 02/02/23 08:00 BP 159/73 02/02/23 08:00 Pulse Ox 95 02/02/23 08:25 FiO2 Intake & Output 02/01/23 02/02/23 02/02/23 18:59 06:59 18:59 Intake Total 1196 750 Output Total 1150 800 Balance 1196 -1150 -50 Weight 84.5 kg Intake: Intake, IV Titration 300 150 Amount Magnesium Sulfate-D5w Pmx 0 1 gm In Dextrose/Water 1 100ml.bag @ 100 mls/hr IVPB Q1H [facility] Rx#: [id number] Sodium Chloride 0.9% 1, 300 150 000 ml @ 75 mls/hr IV . [id number] [facility] Rx#:[id number] Oral 896 600 Output: Urine 1150 0 Post Void Residual 800 Other: Voiding Method Urinal Urinal - Labs CBC & Chem 7: 01/31/23 08:30 02/01/23 07:18 Labs: Abnormal Lab Results - Last 24 Hours (Table) 02/01/23 02/01/23 02/02/23 Range/Units 16:41 20:11 06:18 POC Glucose (mg/dL) 176 H 316 H 197 H (70-110) mg/dL
[2023-02-02 17:02] LABS: Glucose,Whole Blood 255 mg/dL (70-110)
[2023-02-02 19:40] LABS: Glucose,Whole Blood 197 mg/dL (70-110)
[2023-02-02 20:33] LABS: African American GFR (CKD) 17 (>60 ml/min/1.73 sqM); Anion Gap 4 mmol/L; Blood Urea Nitrogen 47 mg/dL (9-20); Carbon Dioxide 21 mmol/L (22-30); Chloride 107 mmol/L (98-107); Glucose 189 mg/dL (74-99); Non-African American GFR(CKD) 15 (>60 ml/min/1.73 sqM); Potassium 4.5 mmol/L (3.5-5.1); Sodium 132 mmol/L (137-145)
[2023-02-02 21:04] LABS: Calcium 6.3 mg/dL (8.4-10.2)
[2023-02-02] MEDS: TAMSULOSIN 0.4 MG CAP.ER.24H PO SCH (21:39)
[2023-02-02] MEDS: LORATADINE 10 MG TAB PO SCH (21:41)
[2023-02-02] MEDS: ATORVASTATIN 80 MG TAB PO SCH (21:41)
[2023-02-02] MEDS: CLOPIDOGREL 75 MG TAB PO SCH (21:41)
[2023-02-03 05:42] LABS: Glucose,Whole Blood 127 mg/dL (70-110)
[2023-02-03] MEDS: SODIUM CHLORIDE 0.9% 1,000 ML IV SCH ×2 (06:24→18:57)
[2023-02-03] MEDS: carvediloL 12.5 MG TAB PO SCH ×2 (06:25→16:47)
[2023-02-03] MEDS: PANTOPRAZOLE 40 MG TABLET PO SCH ×2 (06:25→16:50)
[2023-02-03] MEDS: INSULIN ASPART (NovoLOG) 100 UNIT/ML VIAL SQ SCH ×4 (06:46→21:06)
--- NOTE | 2023-02-03 07:40 | P.GSCN ---
History of Present Illness Consult date: 02/02/23 History of present illness: 57 yo male with multiple medical illnesses including DM and htn was admitted for a hypertensive emergency. the patient has been having difficulty urinating and had a catheter placed today for greater than 500ml We were asked to see the patient. the patient is known to me. He underwent a turp with plasma button 01/2019. There was a question of a hypotonic ngb but appeared to have voided adequately post op with minimal urinary residuals based on my notes. The patient states over the last month or so however he has had increased frequency and nocturia. He felt he couldn't urinate and a catheter was placed while in the hospital this admission. He denies constipation. He has not had any major back problems. He has been on tamsulosin. The patient is a diabetic and there is questionable compliance. Review of Systems All systems: negative - Constitutional Denies fever, Denies weight loss - EENT Eyes: denies blurred vision Ears, nose, mouth and throat: Denies dysphagia - Cardiovascular Denies chest pain, Denies shortness of breath - Respiratory Denies cough, Denies 7 - Gastrointestinal Reports as per HPI - Genitourinary Denies dysuria, Denies hematuria - Integumentary Denies rash, Denies unusual bruising - Neurological Denies headaches, Denies syncope - Hematologic/Lymphatic Denies easy bleeding, Denies easy bruising Past Medical History Past Medical History: Coronary Artery Disease (CAD), CVA/TIA, Diabetes Mellitus, GERD/Reflux, Hyperlipidemia, Hypertension, Myocardial Infarction ([place]), Renal Disease, Rheumatoid Arthritis ([place]) Additional Past Medical History / Comment(s): stroke apr 2017, migranes, diabetic neuropathy arms and legs, stage 2 kidney failure, PANCREATITIS, LEGALLY BLIND, enlarged prostate, trouble urinating Last Myocardial Infarction Date:: 2017? History of Any Multi-Drug Resistant Organisms: None Reported Past Surgical History: Cholecystectomy, Heart Catheterization With Stent, Heart Catheterization With Stent Additional Past Surgical History / Comment(s): Prostrate surgery. HIATAL HERNIA REPAIR -January Past Anesthesia/Blood Transfusion Reactions: No Reported Reaction Additional Past Anesthesia/Blood Transfusion Reaction / Comm: never had anethesia Date of Last Stent Placement:: 2017 Past Psychological History: Anxiety, Depression Additional Psychological History / Comment(s): Pt resides with his spouse. He uses a quad cane or walker to ambulate. He is legally blind. He reads minimally with magnifying glass and signs his name only now. His spouse drives him to [employer]. Smoking Status: Never smoker Past Alcohol Use History: None Reported Past Drug Use History: None Reported - Past Family History Mother Family Medical History: CVA/TIA, Diabetes Mellitus, Hypertension Additional Family Medical History / Comment(s): Parkinson's Mother Father Family Medical History: CVA/TIA, Diabetes Mellitus, Myocardial Infarction ([place]) Additional Family Medical History / Comment(s): Father of a [place] in his 50s. Medications and Allergies Home Medications Medication Instructions Recorded Confirmed Type Pantoprazole [Protonix] 40 mg PO BID 11/05/17 01/30/23 History Tamsulosin [Flomax] 0.8 mg PO HS 11/05/17 01/30/23 History Citalopram Hydrobromide [CeleXA] 20 mg PO DAILY 12/12/18 01/30/23 History allopurinoL [Zyloprim] 100 mg PO DAILY 04/05/19 01/30/23 History Clopidogrel Bisulfate [Plavix] 75 mg PO HS 04/06/19 01/30/23 History Glimepiride [Amaryl] 4 mg PO BID 09/07/19 01/30/23 History Atorvastatin [Lipitor] 80 mg PO HS 12/30/19 01/30/23 History Isosorbide Mononitrate ER [Imdur] 60 mg PO DAILY 12/30/19 01/30/23 History Metoprolol Succinate (ER) [Toprol 50 mg PO DAILY 12/30/19 01/30/23 History XL] Citalopram Hydrobromide [CeleXA] 40 mg PO DAILY 06/29/20 01/30/23 History Furosemide [Lasix] 20 mg PO DAILY 06/29/20 01/30/23 History Loratadine [Claritin] 10 mg PO DAILY 01/21/21 01/30/23 History amLODIPine [Norvasc] 10 mg PO DAILY #30 tablet 01/25/21 01/30/23 Rx Gabapentin 600 mg PO BID 02/28/22 01/30/23 History Losartan Potassium [Cozaar] 25 mg PO DAILY 02/28/22 01/30/23 History Aspirin [Cotati Aspirin EC] 81 mg PO DAILY #14 tab 06/20/22 01/30/23 Rx Lurasidone [Latuda] 40 mg PO HS 06/20/22 01/30/23 History Ondansetron Odt [Zofran ODT] 4 mg PO BID PRN 06/20/22 01/30/23 History Triamcinolone 0.1% Cream [Kenalog 1 applic TOPICAL BID PRN 06/20/22 01/30/23 Hi story 0.1% Cream] sitaGLIPtin [Januvia] 50 mg PO DAILY 06/20/22 01/30/23 History Acetaminophen-Codeine 300-30mg 1 tab PO BID PRN 07/18/22 01/30/23 History [Tylenol w/codeine #3] Darbepoetin Omari [Aranesp] 60 mcg SQ Q14D 01/30/23 01/30/23 History Docusate [Colace] 100 mg PO BID 01/30/23 01/30/23 History Allergies Allergy/AdvReac Type Severity Reaction Status Date / Time Iodinated Contrast Media AdvReac Nausea & Verified 01/30/23 18:35 [Iodinated Contrast- Oral Vomiting and IV Dye] sucralfate AdvReac Nausea & Verified 01/30/23 18:35 Vomiting Surgical - Exam Vital Signs Temp Pulse Resp BP Pulse Ox 98.1 F 67 16 210/108 98 01/30/23 14:14 01/30/23 14:14 01/30/23 14:14 01/30/23 14:14 01/30/23 14:14 - General well developed, well nourished, no distress - Eyes normal ocular movement, no icteric - ENT no hearing loss, no congestion - Neck no masses, trachea midline - Respiratory normal respiratory effort, clear to auscultation - Abdomen Abdomen: soft, non tender, no guarding, no rigid, no rebound - Genitourinary Indwelling catheter - Integumentary no rash, no abnormal pigmentation - Neurologic no disoriented, no combative - Psychiatric oriented to time, oriented to person, oriented to place, speech is normal, memory intact Results - Labs 01/31/23 08:30 02/02/23 20:00 Abnormal Lab Results - Last 24 Hours (Table) 02/02/23 02/02/23 02/02/23 Range/Units 06:18 11:43 16:57 POC Glucose (mg/dL) 197 H 289 H 255 H (70-110) mg/dL 02/02/23 Range/Units 19:38 POC Glucose (mg/dL) 197 H (70-110) mg/dL - Imaging US - kidney/bladder: report reviewed, image reviewed Assessment and Plan Assessment: Impression: Hypertensive emergency. Diabetes. Acute and chronic urine retention. 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 He appeared to have responded to his TURP but I question how he is been doing over the last several months. Diabetics are more prone to hypotonic neurogenic bladder. My recommendations leave indwelling catheter for now and when he is close to discharge remove for voiding trial. We will follow with you.
[2023-02-03] MEDS: NIFEdipine XL 90 MG TAB.ER.24 PO SCH (08:08)
[2023-02-03] MEDS: ASPIRIN 81 MG PO SCH (08:09)
[2023-02-03] MEDS: CITALOPRAM HYDROBROMIDE 20 MG TAB PO SCH ×2 (08:09)
[2023-02-03] MEDS: ISOSORBIDE MONONITRATE ER 60 MG TAB.ER.24H PO SCH (08:09)
[2023-02-03 09:22] LABS: HCT 27.1 % (39.0-53.0); HGB 9.6 gm/dL (13.0-17.5); MCH 30.9 pg (25.0-35.0); MCHC 35.4 g/dL (31.0-37.0); MCV 87.1 fL (80.0-100.0); Mean Platelet Volume 7.4; Platelet Count 109 k/uL (150-450); RBC 3.11 m/uL (4.30-5.90); RDW 13.4 % (11.5-15.5); WBC 6.9 k/uL (3.8-10.6)
[2023-02-03] MEDS ORDERED: cloNIDine 0.1 MG/24HR PATCH TRANSDERM SCH (09:30)
[2023-02-03 09:47] LABS: ALT 17 U/L (4-49); AST 20 U/L (17-59); African American GFR (CKD) 19 (>60 ml/min/1.73 sqM); Albumin 2.5 g/dL (3.5-5.0); Alkaline Phosphatase 125 U/L (38-126); Anion Gap 4 mmol/L; Blood Urea Nitrogen 40 mg/dL (9-20); Calcium 6.7 mg/dL (8.4-10.2); Carbon Dioxide 22 mmol/L (22-30); Chloride 110 mmol/L (98-107); Glucose 188 mg/dL (74-99); Non-African American GFR(CKD) 17 (>60 ml/min/1.73 sqM); Potassium 4.7 mmol/L (3.5-5.1); Sodium 136 mmol/L (137-145); Total Bilirubin 0.4 mg/dL (0.2-1.3); Total Protein 4.6 g/dL (6.3-8.2)
[2023-02-03 11:27] LABS: Glucose,Whole Blood 300 mg/dL (70-110)
--- NOTE | 2023-02-03 12:43 | P.PN ---
Subjective Progress Note Date: 02/03/23 The patient is a 57-year-old male who is currently admitted to the hospital with uncontrolled hypertension. Systolic pressures are greater than 200. Yesterday his beta ronni was switched to carvedilol with minimal improvement in blood pressure readings overnight. Patient states overall he feels well. No chest pain, chest pressure, shortness of breath. He states his been up ambulating around his room and denies any dizziness or lightheadedness. VITALS: Systolic pressures averaging between 140s to 160s TELEMETRY: Sinus rhythm overnight LABS: Sodium 132, potassium 4.3, BUN 38, creatinine 4.11, hemoglobin A1c 7.7, magnesium 2.4 02/02 Patient is seen today in follow-up. He denies any new concerns. No chest pain or shortness of breath. Blood pressure 159/73. Medication changes were made yesterday. 02/03 Patient is seen today in follow-up. He denies any new concerns. Noted that his blood pressure remains elevated, 172/79, heart rate is in the 60s, pulse ox 96% on room air patient is afebrile. Repeat blood work reveals slight improvement in renal function with BUN 40 creatinine 3.86. Hemoglobin is 9.6. The patient denies any new concerns today. No chest pain or shortness of brannon th. Blood pressure 159/73. GENERAL: Well-appearing, well-nourished and in no acute distress. NECK: Supple without JVD or thyromegaly. LUNGS: Breath sounds clear to auscultation bilaterally. Respiration equal and unlabored. No wheezes, rales or rhonchi. HEART: Regular rate and rhythm without murmurs, rubs or gallops. S1 and S2 heard. EXTREMITIES: Normal range of motion, no edema. No clubbing or cyanosis. Peripheral pulses intact and strong. IMPRESSION: Hypertensive crisis Chronic kidney disease History of coronary artery disease History of hyperlipidemia History diabetes History of CVA PLAN: Continue patient on Procardia Continue Coreg 12.5 mg twice daily Continue other cardiac medications Add clonidine patch 0.1 mg Continue to monitor blood pressure closely Further recommendations to be based on clinical course Nurse practitioner note has been reviewed, I agree with the documented findings and plan of care. Patient was seen and examined. Objective - Vital Signs Vital signs: Vital Signs Temp 97.9 F 02/03/23 08:16 Pulse 65 02/03/23 08:16 Resp 16 02/03/23 08:16 BP 172/79 02/03/23 08:16 Pulse Ox 96 02/03/23 10:37 FiO2 Intake & Output 02/02/23 02/03/23 02/03/23 18:59 06:59 18:59 Intake Total 2570 820 110 Output Total 1725 3225 750 Balance 845 -2405 -640 Intake: IV 20 20 Invasive Line 1 20 20 Intake, IV Titration 750 600 Amount Sodium Chloride 0.9% 1, 750 600 000 ml @ 75 mls/hr IV . [id number] [facility] Rx#:[id number] Oral 1800 200 110 Output: Urine 925 3225 750 Coude 925 425 Post Void Residual 800 Other: Voiding Method Urinal Urinal Urinal - Labs CBC & Chem 7: 02/03/23 08:46 02/03/23 08:46 Labs: Abnormal Lab Results - Last 24 Hours (Table) 02/01/23 02/02/23 02/02/23 Range/Units 07:18 16:57 19:38 RBC (4.30-5.90) m/uL Hgb (13.0-17.5) gm/dL Hct (39.0-53.0) % Plt Count (150-450) k/uL Sodium (137-145) mmol/L Chloride (98-107) mmol/L Carbon Dioxide (22-30) mmol/L BUN (9-20) mg/dL Creatinine (0.66-1.25) mg/dL Glucose (74-99) mg/dL POC Glucose (mg/dL) 255 H 197 H (70-110) mg/dL Calcium (8.4-10.2) mg/dL Total Protein (6.3-8.2) g/dL Albumin (3.5-5.0) g/dL Vitamin D 25-Hydroxy <5.0 L (30.0-100.0) ng/mL 02/02/23 02/03/23 02/03/23 Range/Units 20:00 05:39 08:46 RBC 3.11 L (4.30-5.90) m/uL Hgb 9.6 L (13.0-17.5) gm/dL Hct 27.1 L (39.0-53.0) % Plt Count 109 L (150-450) k/uL Sodium 132 L (137-145) mmol/L Chloride (98-107) mmol/L Carbon Dioxide 21 L (22-30) mmol/L BUN 47 H (9-20) mg/dL Creatinine 4.19 H (0.66-1.25) mg/dL Glucose 189 H (74-99) mg/dL POC Glucose (mg/dL) 127 H (70-110) mg/dL Calcium 6.3 L* (8.4-10.2) mg/dL Total Protein (6.3-8.2) g/dL Albumin (3.5-5.0) g/dL Vitamin D 25-Hydroxy (30.0-100.0) ng/mL 02/03/23 02/03/23 Range/Units 08:46 11:25 RBC (4.30-5.90) m/uL Hgb (13.0-17.5) gm/dL Hct (39.0-53.0) % Plt Count (150-450) k/uL Sodium 136 L (137-145) mmol/L Chloride 110 H (98-107) mmol/L Carbon Dioxide (22-30) mmol/L BUN 40 H (9-20) mg/dL Creatinine 3.86 H (0.66-1.25) mg/dL Glucose 188 H (74-99) mg/dL POC Glucose (mg/dL) 300 H (70-110) mg/dL Calcium 6.7 L (8.4-10.2) mg/dL Total Protein 4.6 L (6.3-8.2) g/dL Albumin 2.5 L (3.5-5.0) g/dL Vitamin D 25-Hydroxy (30.0-100.0) ng/mL
[2023-02-03] MEDS: guaiFENesin 600 MG TABLET.ER PO SCH ×2 (12:57→21:09)
--- NOTE | 2023-02-03 13:07 | P.PN ---
Subjective Patient is seen for follow-up for acute kidney injury on top of chronic kidney disease. Patient was admitted to the hospital with uncontrolled hypertension and chest pain. Blood pressure is much improved. Angiotensin receptor blockers on hold secondary to acute kidney injury. Serum creatinine has increased further to 4.1 mg/dL yesterday. Patient was noted to have significant urine retention of 800 mL and Garcia catheter was placed. Also started on IV fluids Serum creatinine improved to 3.8 yesterday No significant complaints today. Objective - Vital Signs Vital signs: Vital Signs Temp 97.9 F 02/03/23 08:16 Pulse 65 02/03/23 08:16 Resp 16 02/03/23 08:16 BP 172/79 02/03/23 08:16 Pulse Ox 96 02/03/23 10:37 FiO2 Intake & Output 02/02/23 02/03/23 02/03/23 18:59 06:59 18:59 Intake Total 2570 820 110 Output Total 1725 3225 750 Balance 845 -2405 -640 Intake: IV 20 20 Invasive Line 1 20 20 Intake, IV Titration 750 600 Amount Sodium Chloride 0.9% 1, 750 600 000 ml @ 75 mls/hr IV . 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 - Labs CBC & Chem 7: 02/03/23 08:46 02/03/23 08:46 Labs: Abnormal Lab Results - Last 24 Hours (Table) 02/01/23 02/02/23 02/02/23 Range/Units 07:18 16:57 19:38 RBC (4.30-5.90) m/uL Hgb (13.0-17.5) gm/dL Hct (39.0-53.0) % Plt Count (150-450) k/uL Sodium (137-145) mmol/L Chloride (98-107) mmol/L Carbon Dioxide (22-30) mmol/L BUN (9-20) mg/dL Creatinine (0.66-1.25) mg/dL Glucose (74-99) mg/dL POC Glucose (mg/dL) 255 H 197 H (70-110) mg/dL Calcium (8.4-10.2) mg/dL Total Protein (6.3-8.2) g/dL Albumin (3.5-5.0) g/dL Vitamin D 25-Hydroxy <5.0 L (30.0-100.0) ng/mL 02/02/23 02/03/23 02/03/23 Range/Units 20:00 05:39 08:46 RBC 3.11 L (4.30-5.90) m/uL Hgb 9.6 L (13.0-17.5) gm/dL Hct 27.1 L (39.0-53.0) % Plt Count 109 L (150-450) k/uL Sodium 132 L (137-145) mmol/L Chloride (98-107) mmol/L Carbon Dioxide 21 L (22-30) mmol/L BUN 47 H (9-20) mg/dL Creatinine 4.19 H (0.66-1.25) mg/dL Glucose 189 H (74-99) mg/dL POC Glucose (mg/dL) 127 H (70-110) mg/dL Calcium 6.3 L* (8.4-10.2) mg/dL Total Protein (6.3-8.2) g/dL Albumin (3.5-5.0) g/dL Vitamin D 25-Hydroxy (30.0-100.0) ng/mL 02/03/23 02/03/23 Range/Units 08:46 11:25 RBC (4.30-5.90) m/uL Hgb (13.0-17.5) gm/dL Hct (39.0-53.0) % Plt Count (150-450) k/uL Sodium 136 L (137-145) mmol/L Chloride 110 H (98-107) mmol/L Carbon Dioxide (22-30) mmol/L BUN 40 H (9-20) mg/dL Creatinine 3.86 H (0.66-1.25) mg/dL Glucose 188 H (74-99) mg/dL POC Glucose (mg/dL) 300 H (70-110) mg/dL Calcium 6.7 L (8.4-10.2) mg/dL Total Protein 4.6 L (6.3-8.2) g/dL Albumin 2.5 L (3.5-5.0) g/dL Vitamin D 25-Hydroxy (30.0-100.0) ng/mL Assessment and Plan Assessment: 1. Acute kidney injury most likely related to uncontrolled hypertension and urine retention. Possible component of hypovolemia as well. Started on IV fluids. 2. Chronic kidney disease NKF stage IV with baseline creatinine 2-2.6 mg/dL. Etiology is diabetic kidney disease 3. Anemia of chronic disease maintained on Aranesp as outpatient 4. Hypertensive urgency as patient did have chest discomfort. Currently improving. Losartan on hold due to significant acute kidney injury. Can increase dose of carvedilol. No evidence of volume overload. 5. Urine retention status post Garcia catheter placement. 800 mL of urine was noted post void. Plan: Continue IV fluids Voiding trial today and replace Garcia catheter if patient has urine retention Continue to hold losartan for now. Repeat labs in a.m. Continue Flomax
[2023-02-03] MEDS ORDERED: DEXTROSE 50% SYRINGE 50 ML IVP PRN ×2 (14:02)
--- NOTE | 2023-02-03 14:03 | P.PN ---
Subjective Progress Note Date: 02/03/23 patient is a 57-year-old gentleman with past medical history significant for hypertension, diabetes mellitus been to the ER because of elevated blood pressure. Patient is noncompliant with his blood pressure medications, stated that he was supposed to get IV iron infusion when he was found out to have elevated blood pressures. Patient denies any chest pain. Denies any complaint of headache. Denies any blurred vision. Denies shortness of breath. Denies any swelling of feet. No complaint of nausea, vomiting or altered bowel movements. Initial lab work done in the ER showed WBC 10.2, hemoglobin 11.9, platelet count 149, sodium 135, potassium 5.1, BUN 27, creatinine 3.14, magnesium 1.2 AST 45 ALT 24 EKG done in the ER showed ventricle rate of 65, QRS 101, no ST segment elevation or T-wave inversion seen Chest x-ray done in the ER showed chronic changes without evidence for acute pulmonary disease Patient admitted to medicine service 02/01. Patient seen and examined. Blood pressure is improved, last 2 blood pressure readings were better with systolics in the 150s. BUN this morning is 38, creatinine 4.11 02/02. Patient seen and examined. Denies any chest pain, no shortness of breath. No swelling of legs 815. Patient seen and examined. Blood pressure elevated. REVIEW OF SYSTEMS: CONSTITUTIONAL: No fever, no malaise,. CARDIOVASCULAR: No chest pain, no palpitations, no syncope. PULMONARY: No shortness of breath, no cough, GASTROINTESTINAL: No diarrhea, no nausea, no vomiting, no abdominal pain. NEUROLOGICAL: No headaches, no weakness, PHYSICAL EXAMINATION: GENERAL: The patient is alert and oriented x3, not in any acute distress. Well developed, well nourished. HEENT: Pupils are round and equally reacting to light. EOMI. No scleral icterus. No conjunctival pallor. Normocephalic, atraumatic. No pharyngeal erythema. No thyromegaly. CARDIOVASCULAR: S1 and S2 present. No murmurs, rubs, or gallops. PULMONARY: Chest is clear to auscultation, no wheezing or crackles. ABDOMEN: Soft, nontender, nondistended, normoactive bowel sounds. No palpable organomegaly. MUSCULOSKELETAL: No joint swelling or deformity. EXTREMITIES: No cyanosis, clubbing, or pedal edema. NEUROLOGICAL: Gross neurological examination did not reveal any focal deficits. SKIN: No rashes. Assessment and plan Monitor vital signs Monitor CBC Monitor CMP Continue telemetry monitoring Avoid nephrotoxic agents continue Coreg, Imdur, Procardia Clonidine patch added by cardiology Continue IV fluids Nephrology following Cardiology following Labs and medication were reviewed.. Continue same treatment. Continue with symptomatic treatment. Resume home medication. Monitor labs and vitals. DVT and GI prophylaxis. Further recommendations as per clinical course of the patient Dictation was produced using [employer] dictation software. please excuse any grammatical, word or spelling errors. Objective - Vital Signs Vital signs: Vital Signs Temp 97.9 F 02/03/23 08:16 Pulse 65 02/03/23 08:16 Resp 16 02/03/23 08:16 BP 172/79 02/03/23 08:16 Pulse Ox 96 02/03/23 10:37 FiO2 Intake & Output 02/02/23 02/03/23 02/03/23 18:59 06:59 18:59 Intake Total 2570 820 220 Output Total 1725 3225 750 Balance 845 -2405 -530 Intake: IV 20 20 Invasive Line 1 20 20 Intake, IV Titration 750 600 Amount Sodium Chloride 0.9% 1, 750 600 000 ml @ 75 mls/hr IV . [id number] [facility] Rx#:[id number] Oral 1800 200 220 Output: Urine 925 3225 750 Coude 925 425 Post Void Residual 800 Other: Voiding Method Urinal Urinal Urinal - Labs CBC & Chem 7: 02/03/23 08:46 02/03/23 08:46 Labs: Abnormal Lab Results - Last 24 Hours (Table) 02/01/23 02/02/23 02/02/23 Range/Units 07:18 16:57 19:38 RBC (4.30-5.90) m/uL Hgb (13.0-17.5) gm/dL Hct (39.0-53.0) % Plt Count (150-450) k/uL Sodium (137-145) mmol/L Chloride (98-107) mmol/L Carbon Dioxide (22-30) mmol/L BUN (9-20) mg/dL Creatinine (0.66-1.25) mg/dL Glucose (74-99) mg/dL POC Glucose (mg/dL) 255 H 197 H (70-110) mg/dL Calcium (8.4-10.2) mg/dL Total Protein (6.3-8.2) g/dL Albumin (3.5-5.0) g/dL Vitamin D 25-Hydroxy <5.0 L (30.0-100.0) ng/mL 02/02/23 02/03/23 02/03/23 Range/Units 20:00 05:39 08:46 RBC 3.11 L (4.30-5.90) m/uL Hgb 9.6 L (13.0-17.5) gm/dL Hct 27.1 L (39.0-53.0) % Plt Count 109 L (150-450) k/uL Sodium 132 L (137-145) mmol/L Chloride (98-107) mmol/L Carbon Dioxide 21 L (22-30) mmol/L BUN 47 H (9-20) mg/dL Creatinine 4.19 H (0.66-1.25) mg/dL Glucose 189 H (74-99) mg/dL POC Glucose (mg/dL) 127 H (70-110) mg/dL Calcium 6.3 L* (8.4-10.2) mg/dL Total Protein (6.3-8.2) g/dL Albumin (3.5-5.0) g/dL Vitamin D 25-Hydroxy (30.0-100.0) ng/mL 02/03/23 02/03/23 Range/Units 08:46 11:25 RBC (4.30-5.90) m/uL Hgb (13.0-17.5) gm/dL Hct (39.0-53.0) % Plt Count (150-450) k/uL Sodium 136 L (137-145) mmol/L Chloride 110 H (98-107) mmol/L Carbon Dioxide (22-30) mmol/L BUN 40 H (9-20) mg/dL Creatinine 3.86 H (0.66-1.25) mg/dL Glucose 188 H (74-99) mg/dL POC Glucose (mg/dL) 300 H (70-110) mg/dL Calcium 6.7 L (8.4-10.2) mg/dL Total Protein 4.6 L (6.3-8.2) g/dL Albumin 2.5 L (3.5-5.0) g/dL Vitamin D 25-Hydroxy (30.0-100.0) ng/mL
[2023-02-03 16:26] LABS: Glucose,Whole Blood 221 mg/dL (70-110)
[2023-02-03 20:20] LABS: Glucose,Whole Blood 157 mg/dL (70-110)
[2023-02-03] MEDS: INSULIN DETEMIR (LEVEMIR) 100 UNIT/ML SYR SQ SCH (21:09)
[2023-02-03] MEDS: CLOPIDOGREL 75 MG TAB PO SCH (21:09)
[2023-02-03] MEDS: LORATADINE 10 MG TAB PO SCH (21:10)
[2023-02-03] MEDS: ATORVASTATIN 80 MG TAB PO SCH (21:10)
[2023-02-03] MEDS: TAMSULOSIN 0.4 MG CAP.ER.24H PO SCH (21:10)
[2023-02-04 06:23] LABS: Glucose,Whole Blood 116 mg/dL (70-110)
[2023-02-04] MEDS: SODIUM CHLORIDE 0.9% 1,000 ML IV SCH (06:56)
[2023-02-04] MEDS: INSULIN ASPART (NovoLOG) 100 UNIT/ML VIAL SQ SCH ×4 (06:56→20:42)
[2023-02-04] MEDS: carvediloL 12.5 MG TAB PO SCH ×2 (06:58→16:55)
[2023-02-04] MEDS: PANTOPRAZOLE 40 MG TABLET PO SCH ×2 (06:58→16:57)
[2023-02-04 08:38] LABS: Glucose,Whole Blood 190 mg/dL (70-110)
[2023-02-04] MEDS: ASPIRIN 81 MG PO SCH (08:54)
[2023-02-04] MEDS: INSULIN DETEMIR (LEVEMIR) 100 UNIT/ML SYR SQ SCH ×2 (08:54→20:37)
[2023-02-04] MEDS: guaiFENesin 600 MG TABLET.ER PO SCH ×2 (08:54→20:36)
[2023-02-04] MEDS: ISOSORBIDE MONONITRATE ER 60 MG TAB.ER.24H PO SCH (08:54)
[2023-02-04] MEDS: CITALOPRAM HYDROBROMIDE 20 MG TAB PO SCH ×2 (08:54)
[2023-02-04] MEDS: NIFEdipine XL 90 MG TAB.ER.24 PO SCH (08:54)
[2023-02-04 09:08] LABS: HCT 30.1 % (39.0-53.0); HGB 10.2 gm/dL (13.0-17.5); MCH 29.1 pg (25.0-35.0); MCHC 33.9 g/dL (31.0-37.0); MCV 85.8 fL (80.0-100.0); Mean Platelet Volume 7.3; Platelet Count 123 k/uL (150-450); RDW 13.2 % (11.5-15.5); WBC 7.6 k/uL (3.8-10.6)
[2023-02-04 09:12] LABS: ALT 19 U/L (4-49); AST 22 U/L (17-59); African American GFR (CKD) 22 (>60 ml/min/1.73 sqM); Albumin 2.7 g/dL (3.5-5.0); Alkaline Phosphatase 138 U/L (38-126); Anion Gap 7 mmol/L; Blood Urea Nitrogen 37 mg/dL (9-20); Calcium 7.1 mg/dL (8.4-10.2); Carbon Dioxide 18 mmol/L (22-30); Chloride 112 mmol/L (98-107); Glucose 125 mg/dL (74-99); Non-African American GFR(CKD) 19 (>60 ml/min/1.73 sqM); Potassium 4.3 mmol/L (3.5-5.1); Sodium 137 mmol/L (137-145); Total Bilirubin 0.4 mg/dL (0.2-1.3); Total Protein 5.1 g/dL (6.3-8.2)
[2023-02-04] MEDS: hydrALAZINE HCL 25 MG TAB PO SCH ×3 (10:32→20:37)
[2023-02-04 11:20] LABS: Glucose,Whole Blood 304 mg/dL (70-110)
[2023-02-04 13:56] VITALS: BMI 27.5
--- NOTE | 2023-02-04 14:07 | P.PN ---
Subjective Patient is seen for follow-up for acute kidney injury on top of chronic kidney disease. Patient was admitted to the hospital with uncontrolled hypertension and chest pain. Blood pressure had improved but worse again recently after IV fluids were i nitiated. Angiotensin receptor blockers on hold secondary to acute kidney injury. Patient was noted to have significant urine retention of 800 mL and Garcia catheter was placed. Also started on IV fluids Serum creatinine improved to 3.5 No significant complaints today. Blood pressure is uncontrolled today Objective - Vital Signs Vital signs: Vital Signs Temp 98.2 F 02/04/23 12:00 Pulse 67 02/04/23 12:00 Resp 16 02/04/23 12:00 BP 168/70 02/04/23 12:00 Pulse Ox 96 02/04/23 12:00 FiO2 Intake & Output 02/03/23 02/04/23 02/04/23 18:59 06:59 18:59 Intake Total 220 110 Output Total 750 1400 Balance -530 -1400 110 Weight 84.5 kg Intake: Oral 220 110 Output: Urine 750 1400 Other: Voiding Method Urinal Indwelling Catheter Indwelling Catheter - Exam Patient is awake, comfortable, in no acute distress Examination of the heart S1 and S2 Examination of the lungs bilateral breath sounds are heard Abdomen is soft nontender Examination of lower extremities shows no significant edema 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 - Labs CBC & Chem 7: 02/04/23 07:41 02/04/23 07:41 Labs: Abnormal Lab Results - Last 24 Hours (Table) 02/03/23 02/03/23 02/04/23 Range/Units 16:25 20:16 06:17 RBC (4.30-5.90) m/uL Hgb (13.0-17.5) gm/dL Hct (39.0-53.0) % Plt Count (150-450) k/uL Chloride (98-107) mmol/L Carbon Dioxide (22-30) mmol/L BUN (9-20) mg/dL Creatinine (0.66-1.25) mg/dL Glucose (74-99) mg/dL POC Glucose (mg/dL) 221 H 157 H 116 H (70-110) mg/dL Calcium (8.4-10.2) mg/dL Alkaline Phosphatase (38-126) U/L Total Protein (6.3-8.2) g/dL Albumin (3.5-5.0) g/dL 02/04/23 02/04/23 02/04/23 Range/Units 07:41 07:41 08:36 RBC 3.50 L (4.30-5.90) m/uL Hgb 10.2 L (13.0-17.5) gm/dL Hct 30.1 L (39.0-53.0) % Plt Count 123 L (150-450) k/uL Chloride 112 H (98-107) mmol/L Carbon Dioxide 18 L (22-30) mmol/L BUN 37 H (9-20) mg/dL Creatinine 3.50 H (0.66-1.25) mg/dL Glucose 125 H (74-99) mg/dL POC Glucose (mg/dL) 190 H (70-110) mg/dL Calcium 7.1 L (8.4-10.2) mg/dL Alkaline Phosphatase 138 H (38-126) U/L Total Protein 5.1 L (6.3-8.2) g/dL Albumin 2.7 L (3.5-5.0) g/dL 02/04/23 Range/Units 11:19 RBC (4.30-5.90) m/uL Hgb (13.0-17.5) gm/dL Hct (39.0-53.0) % Plt Count (150-450) k/uL Chloride (98-107) mmol/L Carbon Dioxide (22-30) mmol/L BUN (9-20) mg/dL Creatinine (0.66-1.25) mg/dL Glucose (74-99) mg/dL POC Glucose (mg/dL) 304 H (70-110) mg/dL Calcium (8.4-10.2) mg/dL Alkaline Phosphatase (38-126) U/L Total Protein (6.3-8.2) g/dL Albumin (3.5-5.0) g/dL Assessment and Plan Assessment: 1. Acute kidney injury most likely related to uncontrolled hypertension and urine retention. Possible component of hypovolemia as well. Started on IV fluids. 2. Chronic kidney disease NKF stage IV with baseline creatinine 2-2.6 mg/dL. Etiology is diabetic kidney disease 3. Anemia of chronic disease maintained on Aranesp as outpatient 4. Hypertensive urgency as patient did have chest discomfort. Currently improving. Losartan on hold due to significant acute kidney injury. Carvedilol will be increased. And IV fluids will be discontinued. No evidence of volume overload. 5. Urine retention status post Garcia catheter placement. 800 mL of urine was noted post void. Plan: Discontinue IV fluids Continue with Garcia catheter Increase carvedilol Continue to hold losartan for now. Repeat labs in a.m. Continue Flomax
--- NOTE | 2023-02-04 14:15 | P.PN ---
Subjective Progress Note Date: 02/04/23 patient is a 57-year-old gentleman with past medical history significant for hypertension, diabetes mellitus been to the ER because of elevated blood pressure. Patient is noncompliant with his blood pressure medications, stated that he was supposed to get IV iron infusion when he was found out to have elevated blood pressures. Patient denies any chest pain. Denies any complaint of headache. Denies any blurred vision. Denies shortness of breath. Denies any swelling of feet. No complaint of nausea, vomiting or altered bowel movements. Initial lab work done in the ER showed WBC 10.2, hemoglobin 11.9, platelet count 149, sodium 135, potassium 5.1, BUN 27, creatinine 3.14, magnesium 1.2 AST 45 ALT 24 EKG done in the ER showed ventricle rate of 65, QRS 101, no ST segment elevation or T-wave inversion seen Chest x-ray done in the ER showed chronic changes without evidence for acute pulmonary disease Patient admitted to medicine service 02/01. Patient seen and examined. Blood pressure is improved, last 2 blood pressure readings were better with systolics in the 150s. BUN this morning is 38, creatinine 4.11 02/02. Patient seen and examined. Denies any chest pain, no shortness of breath. No swelling of legs 815. Patient seen and examined. Blood pressure elevated. 02/04. Patient seen and examined. Still having elevated blood pressures. Started patient on hydralazine 25 mg 3 times daily REVIEW OF SYSTEMS: CONSTITUTIONAL: No fever, no malaise,. CARDIOVASCULAR: No chest pain, no palpitations, no syncope. PULMONARY: No shortness of breath, no cough, GASTROINTESTINAL: No diarrhea, no nausea, no vomiting, no abdominal pain. NEUROLOGICAL: No headaches, no weakness, PHYSICAL EXAMINATION: GENERAL: The patient is alert and oriented x3, not in any acute distress. Well developed, well nourished. HEENT: Pupils are round and equally reacting to light. EOMI. No scleral icterus. No conjunctival pallor. Normocephalic, atraumatic. No pharyngeal erythema. No thyromegaly. CARDIOVASCULAR: S1 and S2 present. No murmurs, rubs, or gallops. PULMONARY: Chest is clear to auscultation, no wheezing or crackles. ABDOMEN: Soft, nontender, nondistended, normoactive bowel sounds. No palpable organomegaly. MUSCULOSKELETAL: No joint swelling or deformity. EXTREMITIES: No cyanosis, clubbing, or pedal edema. NEUROLOGICAL: Gross neurological examination did not reveal any focal deficits. SKIN: No rashes. Assessment and plan Monitor vital signs Monitor CBC Monitor CMP Continue telemetry monitoring Avoid nephrotoxic agents continue Coreg, Imdur, Procardia Clonidine patch added by cardiology start hydralazine 25 mg 3 times daily Continue IV fluids Nephrology following Cardiology following Labs and medication were reviewed.. Continue same treatment. Continue with symptomatic treatment. Resume home medication. Monitor labs and vitals. DVT and GI prophylaxis. Further recommendations as per clinical course of the patient Dictation was produced using [employer] dictation software. please excuse any grammatical, word or spelling errors. Objective - Vital Signs Vital signs: Vital Signs Temp 98.2 F 02/04/23 12:00 Pulse 67 02/04/23 12:00 Resp 16 02/04/23 12:00 BP 168/70 02/04/23 12:00 Pulse Ox 96 02/04/23 12:00 FiO2 Intake & Output 02/03/23 02/04/23 02/04/23 18:59 06:59 18:59 Intake Total 220 110 Output Total 750 1400 Balance -530 -1400 110 Weight 84.5 kg Intake: Oral 220 110 Output: Urine 750 1400 Other: Voiding Method Urinal Indwelling Catheter Indwelling Catheter - Labs CBC & Chem 7: 02/04/23 07:41 02/04/23 07:41 Labs: Abnormal Lab Results - Last 24 Hours (Table) 02/03/23 02/03/23 02/04/23 Range/Units 16:25 20:16 06:17 RBC (4.30-5.90) m/uL Hgb (13.0-17.5) gm/dL Hct (39.0-53.0) % Plt Count (150-450) k/uL Chloride (98-107) mmol/L Carbon Dioxide (22-30) mmol/L BUN (9-20) mg/dL Creatinine (0.66-1.25) mg/dL Glucose (74-99) mg/dL POC Glucose (mg/dL) 221 H 157 H 116 H (70-110) mg/dL Calcium (8.4-10.2) mg/dL Alkaline Phosphatase (38-126) U/L Total Protein (6.3-8.2) g/dL Albumin (3.5-5.0) g/dL 02/04/23 02/04/23 02/04/23 Range/Units 07:41 07:41 08:36 RBC 3.50 L (4.30-5.90) m/uL Hgb 10.2 L (13.0-17.5) gm/dL Hct 30.1 L (39.0-53.0) % Plt Count 123 L (150-450) k/uL Chloride 112 H (98-107) mmol/L Carbon Dioxide 18 L (22-30) mmol/L BUN 37 H (9-20) mg/dL Creatinine 3.50 H (0.66-1.25) mg/dL Glucose 125 H (74-99) mg/dL POC Glucose (mg/dL) 190 H (70-110) mg/dL Calcium 7.1 L (8.4-10.2) mg/dL Alkaline Phosphatase 138 H (38-126) U/L Total Protein 5.1 L (6.3-8.2) g/dL Albumin 2.7 L (3.5-5.0) g/dL 02/04/23 Range/Units 11:19 RBC (4.30-5.90) m/uL Hgb (13.0-17.5) gm/dL Hct (39.0-53.0) % Plt Count (150-450) k/uL Chloride (98-107) mmol/L Carbon Dioxide (22-30) mmol/L BUN (9-20) mg/dL Creatinine (0.66-1.25) mg/dL Glucose (74-99) mg/dL POC Glucose (mg/dL) 304 H (70-110) mg/dL Calcium (8.4-10.2) mg/dL Alkaline Phosphatase (38-126) U/L Total Protein (6.3-8.2) g/dL Albumin (3.5-5.0) g/dL
--- NOTE | 2023-02-04 15:03 | P.PN ---
Subjective Progress Note Date: 02/04/23 The patient is a 57-year-old male who is currently admitted to the hospital with uncontrolled hypertension. Systolic pressures are greater than 200. Yesterday his beta ronni was switched to carvedilol with minimal improvement in blood pressure readings overnight. Patient states overall he feels well. No chest pain, chest pressure, shortness of breath. He states his been up ambulating around his room and denies any dizziness or lightheadedness. VITALS: Systolic pressures averaging between 140s to 160s TELEMETRY: Sinus rhythm overnight LABS: Sodium 132, potassium 4.3, BUN 38, creatinine 4.11, hemoglobin A1c 7.7, magnesium 2.4 02/02 Patient is seen today in follow-up. He denies any new concerns. No chest pain or shortness of breath. Blood pressure 159/73. Medication changes were made yesterday. 02/03 Patient is seen today in follow-up. He denies any new concerns. Noted that his blood pressure remains elevated, 172/79, heart rate is in the 60s, pulse ox 96% on room air patient is afebrile. Repeat blood work reveals slight improvement in renal function with BUN 40 creatinine 3.86. Hemoglobin is 9.6. 02/04 Patient is seen today in follow-up. He continues to have elevated blood p ressure readings despite medication changes. We added Catapres patch yesterday. Today nephrology is increase Coreg to 25 mg twice daily and also hydralazine 25 mg 3 times daily was added. The patient denies any new concerns today. No chest pain or shortness of breath. Blood pressure 159/73. GENERAL: Well-appearing, well-nourished and in no acute distress. NECK: Supple without JVD or thyromegaly. LUNGS: Breath sounds clear to auscultation bilaterally. Respiration equal and unlabored. No wheezes, rales or rhonchi. HEART: Regular rate and rhythm without murmurs, rubs or gallops. S1 and S2 heard. EXTREMITIES: Normal range of motion, no edema. No clubbing or cyanosis. Peripheral pulses intact and strong. IMPRESSION: Hypertensive crisis Chronic kidney disease History of coronary artery disease History of hyperlipidemia History diabetes History of CVA PLAN: Continue patient on Procardia, increased dose of Coreg, hydralazine, Catapres patch Obtain renal artery duplex to rule out renal artery stenosis Continue to monitor blood pressure closely Further recommendations to be based on clinical course Nurse practitioner note has been reviewed, I agree with the documented findings and plan of care. Patient was seen and examined. Objective - Vital Signs Vital signs: Vital Signs Temp 98.2 F 02/04/23 12:00 Pulse 67 02/04/23 12:00 Resp 16 02/04/23 12:00 BP 168/70 02/04/23 12:00 Pulse Ox 96 02/04/23 12:00 FiO2 Intake & Output 02/03/23 02/04/23 02/04/23 18:59 06:59 18:59 Intake Total 220 110 Output Total 750 1400 800 Balance -530 -1400 -690 Weight 84.5 kg Intake: Oral 220 110 Output: Urine 750 1400 800 Other: Voiding Method Urinal Indwelling Catheter Indwelling Catheter - Labs CBC & Chem 7: 02/04/23 07:41 02/04/23 07:41 Labs: Abnormal Lab Results - Last 24 Hours (Table) 02/03/23 02/03/23 02/04/23 Range/Units 16:25 20:16 06:17 RBC (4.30-5.90) m/uL Hgb (13.0-17.5) gm/dL Hct (39.0-53.0) % Plt Count (150-450) k/uL Chloride (98-107) mmol/L Carbon Dioxide (22-30) mmol/L BUN (9-20) mg/dL Creatinine (0.66-1.25) mg/dL Glucose (74-99) mg/dL POC Glucose (mg/dL) 221 H 157 H 116 H (70-110) mg/dL Calcium (8.4-10.2) mg/dL Alkaline Phosphatase (38-126) U/L Total Protein (6.3-8.2) g/dL Albumin (3.5-5.0) g/dL 02/04/23 02/04/23 02/04/23 Range/Units 07:41 07:41 08:36 RBC 3.50 L (4.30-5.90) m/uL Hgb 10.2 L (13.0-17.5) gm/dL Hct 30.1 L (39.0-53.0) % Plt Count 123 L (150-450) k/uL Chloride 112 H (98-107) mmol/L Carbon Dioxide 18 L (22-30) mmol/L BUN 37 H (9-20) mg/dL Creatinine 3.50 H (0.66-1.25) mg/dL Glucose 125 H (74-99) mg/dL POC Glucose (mg/dL) 190 H (70-110) mg/dL Calcium 7.1 L (8.4-10.2) mg/dL Alkaline Phosphatase 138 H (38-126) U/L Total Protein 5.1 L (6.3-8.2) g/dL Albumin 2.7 L (3.5-5.0) g/dL 02/04/23 Range/Units 11:19 RBC (4.30-5.90) m/uL Hgb (13.0-17.5) gm/dL Hct (39.0-53.0) % Plt Count (150-450) k/uL Chloride (98-107) mmol/L Carbon Dioxide (22-30) mmol/L BUN (9-20) mg/dL Creatinine (0.66-1.25) mg/dL Glucose (74-99) mg/dL POC Glucose (mg/dL) 304 H (70-110) mg/dL Calcium (8.4-10.2) mg/dL Alkaline Phosphatase (38-126) U/L Total Protein (6.3-8.2) g/dL Albumin (3.5-5.0) g/dL
[2023-02-04 16:23] LABS: Glucose,Whole Blood 197 mg/dL (70-110)
[2023-02-04] MEDS: TAMSULOSIN 0.4 MG CAP.ER.24H PO SCH (20:37)
[2023-02-04] MEDS: ATORVASTATIN 80 MG TAB PO SCH (20:37)
[2023-02-04] MEDS: LORATADINE 10 MG TAB PO SCH (20:37)
[2023-02-04] MEDS: CLOPIDOGREL 75 MG TAB PO SCH (20:37)
[2023-02-04 20:38] LABS: Glucose,Whole Blood 260 mg/dL (70-110)
[2023-02-04] MEDS: ACETAMINOPHEN TAB 325 MG TAB PO PRN (22:58)
[2023-02-05 05:54] LABS: Glucose,Whole Blood 152 mg/dL (70-110)
[2023-02-05] MEDS: INSULIN ASPART (NovoLOG) 100 UNIT/ML VIAL SQ SCH ×4 (05:56→20:51)
--- NOTE | 2023-02-05 07:39 | P.PN ---
Subjective Progress Note Date: 02/05/23 The patient is in the hospital for hypertensive emergency. He is still having problems with his blood pressure. He is getting renal artery evaluation today. He also is urine retention. The catheter still in place Objective - Vital Signs Vital signs: Vital Signs Temp 97.1 F L 02/05/23 03:15 Pulse 64 02/05/23 03:15 Resp 16 02/05/23 03:15 BP 165/80 02/05/23 03:15 Pulse Ox 97 02/05/23 03:15 FiO2 Intake & Output 02/04/23 02/05/23 02/05/23 18:59 06:59 18:59 Intake Total 220 Output Total 800 725 Balance -580 -725 Weight 84.5 kg Intake: Oral 220 Output: Urine 800 725 Other: Voiding Method Indwelling Catheter Indwelling Catheter - Labs CBC & Chem 7: 02/04/23 07:41 02/04/23 07:41 Labs: Abnormal Lab Results - Last 24 Hours (Table) 02/04/23 02/04/23 02/04/23 Range/Units 07:41 07:41 07:41 RBC 3.50 L (4.30-5.90) m/uL Hgb 10.2 L (13.0-17.5) gm/dL Hct 30.1 L (39.0-53.0) % Plt Count 123 L (150-450) k/uL Chloride 112 H (98-107) mmol/L Carbon Dioxide 18 L (22-30) mmol/L BUN 37 H (9-20) mg/dL Creatinine 3.50 H (0.66-1.25) mg/dL Glucose 125 H (74-99) mg/dL POC Glucose (mg/dL) (70-110) mg/dL Hemoglobin A1c 7.3 H (<=6.0) % Calcium 7.1 L (8.4-10.2) mg/dL Alkaline Phosphatase 138 H (38-126) U/L Total Protein 5.1 L (6.3-8.2) g/dL Albumin 2.7 L (3.5-5.0) g/dL 02/04/23 02/04/23 02/04/23 Range/Units 08:36 11:19 16:21 RBC (4.30-5.90) m/uL Hgb (13.0-17.5) gm/dL Hct (39.0-53.0) % Plt Count (150-450) k/uL Chloride (98-107) mmol/L Carbon Dioxide (22-30) mmol/L BUN (9-20) mg/dL Creatinine (0.66-1.25) mg/dL Glucose (74-99) mg/dL POC Glucose (mg/dL) 190 H 304 H 197 H (70-110) mg/dL Hemoglobin A1c (<=6.0) % Calcium (8.4-10.2) mg/dL Alkaline Phosphatase (38-126) U/L Total Protein (6.3-8.2) g/dL Albumin (3.5-5.0) g/dL 02/04/23 02/05/23 Range/Units 20:36 05:52 RBC (4.30-5.90) m/uL Hgb (13.0-17.5) gm/dL Hct (39.0-53.0) % Plt Count (150-450) k/uL Chloride (98-107) mmol/L Carbon Dioxide (22-30) mmol/L BUN (9-20) mg/dL Creatinine (0.66-1.25) mg/dL Glucose (74-99) mg/dL POC Glucose (mg/dL) 260 H 152 H (70-110) mg/dL Hemoglobin A1c (<=6.0) % Calcium (8.4-10.2) mg/dL Alkaline Phosphatase (38-126) U/L Total Protein (6.3-8.2) g/dL Albumin (3.5-5.0) g/dL Assessment and Plan Assessment: Impression: Urine retention. Hypertensive emergency Recommendations. I will continue with indwelling catheter until his medical status has been stabilized. When he is near discharge the catheter can be removed for a voiding trial.
[2023-02-05] MEDS: ASPIRIN 81 MG PO SCH (08:46)
[2023-02-05] MEDS: guaiFENesin 600 MG TABLET.ER PO SCH ×2 (08:46→20:55)
[2023-02-05] MEDS: carvediloL 12.5 MG TAB PO SCH ×2 (08:46→16:37)
[2023-02-05] MEDS: ISOSORBIDE MONONITRATE ER 60 MG TAB.ER.24H PO SCH (08:46)
[2023-02-05] MEDS: NIFEdipine XL 90 MG TAB.ER.24 PO SCH (08:46)
[2023-02-05] MEDS: PANTOPRAZOLE 40 MG TABLET PO SCH ×2 (08:46→16:37)
[2023-02-05] MEDS: hydrALAZINE HCL 25 MG TAB PO SCH ×3 (08:47→20:50)
[2023-02-05] MEDS: INSULIN DETEMIR (LEVEMIR) 100 UNIT/ML SYR SQ SCH ×2 (08:47→20:51)
[2023-02-05] MEDS: CITALOPRAM HYDROBROMIDE 20 MG TAB PO SCH ×2 (08:47)
--- NOTE | 2023-02-05 09:52 | US ---
EXAMINATION TYPE: US renal artery duplex complete DATE OF EXAM: 02/05/2023 COMPARISON: Renal only CLINICAL INDICATION: Male, 57 years old with history of uncontrolled HTN; Uncontrolled HTN MEASUREMENTS: RENAL SIZE: Rt Kidney: 11.3 x 6.2 x 6.0 cm Lt Kidney: 11.6 x 5.6 x 5.7 cm RESISTANCE INDEX Right: 0.7 Left: 0.8 RA/AO RATIO (< 3.5 ) Right: 0.9 Left: 0.9 RA VELOCITY ( < 180 cm/s) Right: 171.6 Left: 161.2 Very limited exam due to overlying bowel gas and pt unable to hold breath during exam Elevated velocities within Aorta and upper limits of normal velocities within visualized segments o f renal arteries causing normal ratios and RI's bilaterally Cyst mid/lower right kidney= 1.4 x 1.0 x 1.1 cm increased echogenicity of the kidneys compatible with chronic medical renal disease. IMPRESSION: Limited exam no definite renal artery stenosis by renal artery to aorta ratio. However, With elevated velocities as discussed above recommend consideration for CTA renal arteriogram IF there is high cli nical concern for renal artery stenosis..
[2023-02-05 11:37] LABS: Glucose,Whole Blood 227 mg/dL (70-110)
--- NOTE | 2023-02-05 12:44 | CDI ---
Documentation Clarification Form Date: 02/05/2023 12:08:54 PM From: Rocio Jones RN, CCDS Email: [email or web address] Admit Date: 01/30/2023 07:31:00 PM Patient Name: Kashmir Tinajero Visit Number: [id number] Discharge Date: ATTENTION: The Clinical Documentation Specialists (CDI) and [facility] Coding Staff appreciate your assistance in clarifying documentation. Please respond to the clarification below the line at the bottom and electronically sign. The CDI & [facility] Coding staff will review the response and follow-up if needed. Please note: Queries are made part of the Legal Health Record. If you have any questions, please contact the author of this message via ITS. Dr. Olaf Myers Acute kidney injury is documented in the progress notes. Additional clarification is requested. History/Risk factors: HTN, DM, CKD with baseline Cr 2-2.6, CAD, HLD, [place]. Admitted with hypertensive emergency. Clinical Indicators: Admission BP 210/108 Labs: 01/30-02/04 BUN: 79-38-08-47-40-37 01/30-02/04 Cr: 3.14-3.56-4.11-4.19-3.86-3.50 01/30-02/04 GFR: 85-01-39-15-17-19 01/31 Urine: 4+ protein, 4+ glucose, small blood, calcium oxalate crystal, amorphous sediment, urine bacteria, hyaline casts, urine mucus 02/01 Nephrology: "Add IV fluids since renal function has worsened." 02/05 Renal artery duplex: no definite renal artery stenosis Treatment: IVF's 0.9 NS @75ml/hr 01/30-02/04. Garcia catheter insertion for urine retention. Nephrology Consult: "Acute kidney injury most likely related to uncontrolled hypertension and urine retention. Possible component of hypovolemia as well. Started on IV fluids. Chronic kidney disease NKF stage IV with baseline creatinine 2-2.6 mg/dL. Urine retention status post Garcia catheter placement. 800 mL of urine was noted post void." Please clarify the type of acute renal failure, if known: [ ] Acute Renal Failure with Acute Tubular Necrosis [ ] Acute Renal Failure with other cause, please specify [x ] Unable to determine [ ] Other, please specify MTDD
--- NOTE | 2023-02-05 12:53 | P.PN ---
Subjective Patient is seen for follow-up for acute kidney injury on top of chronic kidney disease. Patient was admitted to the hospital with uncontrolled hypertension and chest pain. Blood pressure had improved but worse again recently after IV fluids were i nitiated. Now discontinued Angiotensin receptor blockers on hold secondary to acute kidney injury. Patient was noted to have significant urine retention of 800 mL and Garcia catheter was placed. Blood pressure is better today. Objective - Vital Signs Vital signs: Vital Signs Temp 98.2 F 02/05/23 08:00 Pulse 75 02/05/23 08:00 Resp 18 02/05/23 08:00 BP 160/77 02/05/23 08:00 Pulse Ox 98 02/05/23 08:00 FiO2 Intake & Output 02/04/23 02/05/23 02/05/23 18:59 06:59 18:59 Intake Total 220 358 Output Total 800 725 400 Balance -580 -725 -42 Weight 84.5 kg Intake: Oral 220 358 Output: Urine 800 725 400 Other: Voiding Method Indwelling Catheter Indwelling Catheter Indwelling Catheter - Exam Patient is awake, comfortable, in no acute distress Examination of the heart S1 and S2 Examination of the lungs bilateral breath sounds are heard Abdomen is soft nontender Examination of lower extremities shows no significant edema [employer] exam grossly intact - Labs CBC & Chem 7: 02/04/23 07:41 02/04/23 07:41 Labs: Abnormal Lab Results - Last 24 Hours (Table) 02/04/23 02/04/23 02/04/23 Range/Units 07:41 16:21 20:36 POC Glucose (mg/dL) 197 H 260 H (70-110) mg/dL Hemoglobin A1c 7.3 H (<=6.0) % 02/05/23 02/05/23 Range/Units 05:52 11:36 POC Glucose (mg/dL) 152 H 227 H (70-110) mg/dL Hemoglobin A1c (<=6.0) % Assessment and Plan Assessment: 1. Acute kidney injury most likely related to uncontrolled hypertension and urine retention. Possible component of hypovolemia as well. Status post IV fluids.. 2. Chronic kidney disease NKF stage IV with baseline creatinine 2-2.6 mg/dL. Etiology is diabetic kidney disease 3. Anemia of chronic disease maintained on Aranesp as outpatient 4. Hypertensive urgency as patient did have chest discomfort. Currently improving. Losartan on hold due to significant acute kidney injury. Carvedilol will be increased. And IV fluids discontinued. No evidence of volume overload. 5. Urine retention status post Garcia catheter placement. 800 mL of urine was noted post void. Plan: Continue off of IV fluids Continue with Garcia catheter Continue to hold losartan for now. Follow-up as outpatient in about 1 week's time Continue Flomax
--- NOTE | 2023-02-05 13:52 | P.PN ---
Subjective Progress Note Date: 02/05/23 The patient is a 57-year-old male who is currently admitted to the hospital with uncontrolled hypertension. Systolic pressures are greater than 200. Yesterday his beta ronni was switched to carvedilol with minimal improvement in blood pressure readings overnight. Patient states overall he feels well. No chest pain, chest pressure, shortness of breath. He states his been up ambulating around his room and denies any dizziness or lightheadedness. VITALS: Systolic pressures averaging between 140s to 160s TELEMETRY: Sinus rhythm overnight LABS: Sodium 132, potassium 4.3, BUN 38, creatinine 4.11, hemoglobin A1c 7.7, magnesium 2.4 02/02 Patient is seen today in follow-up. He denies any new concerns. No chest pain or shortness of breath. Blood pressure 159/73. Medication changes were made yesterday. 02/03 Patient is seen today in follow-up. He denies any new concerns. Noted that his blood pressure remains elevated, 172/79, heart rate is in the 60s, pulse ox 96% on room air patient is afebrile. Repeat blood work reveals slight improvement in renal function with BUN 40 creatinine 3.86. Hemoglobin is 9.6. 02/04 Patient is seen today in follow-up. He continues to have elevated blood p ressure readings despite medication changes. We added Catapres patch yesterday. Today nephrology is increase Coreg to 25 mg twice daily and also hydralazine 25 mg 3 times daily was added. 02/05 Despite multiple medication changes, blood pressure remains elevated but somewhat improved. Yesterday he underwent a renal artery ultrasound which revealed no definite renal artery stenosis, limited study. Blood pressure 160/77. No new concerns from the patient. The patient denies any new concerns today. No chest pain or shortness of breath. Blood pressure 159/73. GENERAL: Well-appearing, well-nourished and in no acute distress. NECK: Supple without JVD or thyromegaly. LUNGS: Breath sounds clear to auscultation bilaterally. Respiration equal and unlabored. No wheezes, rales or rhonchi. HEART: Regular rate and rhythm without murmurs, rubs or gallops. S1 and S2 heard. EXTREMITIES: Normal range of motion, no edema. No clubbing or cyanosis. Peripheral pulses intact and strong. IMPRESSION: Hypertensive crisis Chronic kidney disease History of coronary artery disease History of hyperlipidemia History diabetes History of CVA PLAN: Continue current blood pressure medications, this may be adjusted as an outpatient Patient is cleared for discharge from cardiology may follow-up in the office 1-2 weeks. Nurse practitioner note has been reviewed, I agree with the documented findings and plan of care. Patient was seen and examined. Objective - Vital Signs Vital signs: Vital Signs Temp 98.2 F 02/05/23 08:00 Pulse 75 02/05/23 08:00 Resp 18 02/05/23 08:00 BP 160/77 02/05/23 08:00 Pulse Ox 98 02/05/23 08:00 FiO2 Intake & Output 02/04/23 02/05/23 02/05/23 18:59 06:59 18:59 Intake Total 220 358 Output Total 800 725 400 Balance -580 -725 -42 Weight 84.5 kg Intake: Oral 220 358 Output: Urine 800 725 400 Other: Voiding Method Indwelling Catheter Indwelling Catheter Indwelling Catheter - Labs CBC & Chem 7: 02/04/23 07:41 02/04/23 07:41 Labs: Abnormal Lab Results - Last 24 Hours (Table) 02/04/23 02/04/23 02/04/23 Range/Units 07:41 11:19 16:21 POC Glucose (mg/dL) 304 H 197 H (70-110) mg/dL Hemoglobin A1c 7.3 H (<=6.0) % 02/04/23 02/05/23 Range/Units 20:36 05:52 POC Glucose (mg/dL) 260 H 152 H (70-110) mg/dL Hemoglobin A1c (<=6.0) %
--- NOTE | 2023-02-05 14:17 | P.PN ---
Subjective Progress Note Date: 02/05/23 patient is a 57-year-old gentleman with past medical history significant for hypertension, diabetes mellitus been to the ER because of elevated blood pressure. Patient is noncompliant with his blood pressure medications, stated that he was supposed to get IV iron infusion when he was found out to have elevated blood pressures. Patient denies any chest pain. Denies any complaint of headache. Denies any blurred vision. Denies shortness of breath. Denies any swelling of feet. No complaint of nausea, vomiting or altered bowel movements. Initial lab work done in the ER showed WBC 10.2, hemoglobin 11.9, platelet count 149, sodium 135, potassium 5.1, BUN 27, creatinine 3.14, magnesium 1.2 AST 45 ALT 24 EKG done in the ER showed ventricle rate of 65, QRS 101, no ST segment elevation or T-wave inversion seen Chest x-ray done in the ER showed chronic changes without evidence for acute pulmonary disease Patient admitted to medicine service 02/01. Patient seen and examined. Blood pressure is improved, last 2 blood pressure readings were better with systolics in the 150s. BUN this morning is 38, creatinine 4.11 02/02. Patient seen and examined. Denies any chest pain, no shortness of breath. No swelling of legs 815. Patient seen and examined. Blood pressure elevated. 02/04. Patient seen and examined. Still having elevated blood pressures. Started patient on hydralazine 25 mg 3 times daily 02/05. Patient seen and examined . Blood pressure much better controlled compared to yesterday REVIEW OF SYSTEMS: CONSTITUTIONAL: No fever, no malaise,. CARDIOVASCULAR: No chest pain, no palpitations, no syncope. PULMONARY: No shortness of breath, no cough, GASTROINTESTINAL: No diarrhea, no nausea, no vomiting, no abdominal pain. NEUROLOGICAL: No headaches, no weakness, PHYSICAL EXAMINATION: GENERAL: The patient is alert and oriented x3, not in any acute distress. Well developed, well nourished. HEENT: Pupils are round and equally reacting to light. EOMI. No scleral icterus. No conjunctival pallor. Normocephalic, atraumatic. No pharyngeal erythema. No thyromegaly. CARDIOVASCULAR: S1 and S2 present. No murmurs, rubs, or gallops. PULMONARY: Chest is clear to auscultation, no wheezing or crackles. ABDOMEN: Soft, nontender, nondistended, normoactive bowel sounds. No palpable organomegaly. MUSCULOSKELETAL: No joint swelling or deformity. EXTREMITIES: No cyanosis, clubbing, or pedal edema. NEUROLOGICAL: Gross neurological examination did not reveal any focal deficits. SKIN: No rashes. Assessment and plan Monitor vital signs Monitor CBC Monitor CMP Continue telemetry monitoring Avoid nephrotoxic agents continue Coreg, Imdur, Procardia Clonidine patch added by cardiology Continue hydralazine 25 mg 3 times daily Nephrology following, renal artery ultrasound negative for any stenosis Cardiology following Labs and medication were reviewed.. Continue same treatment. Continue with symptomatic treatment. Resume home medication. Monitor labs and vitals. DVT and GI prophylaxis. Further recommendations as per clinical course of the patient Dictation was produced using [employer] dictation software. please excuse any grammatical, word or spelling errors. Objective - Vital Signs Vital signs: Vital Signs Temp 97.7 F 02/05/23 12:00 Pulse 66 02/05/23 12:00 Resp 16 02/05/23 12:00 BP 132/75 02/05/23 12:00 Pulse Ox 98 02/05/23 12:00 FiO2 Intake & Output 02/04/23 02/05/23 02/05/23 18:59 06:59 18:59 Intake Total 220 598 Output Total 800 725 600 Balance -580 -725 -2 Weight 84.5 kg Intake: Oral 220 598 Output: Urine 800 725 600 Other: Voiding Method Indwelling Catheter Indwelling Catheter Indwelling Catheter - Labs CBC & Chem 7: 02/04/23 07:41 02/04/23 07:41 Labs: Abnormal Lab Results - Last 24 Hours (Table) 02/04/23 02/04/23 02/04/23 Range/Units 07:41 16:21 20:36 POC Glucose (mg/dL) 197 H 260 H (70-110) mg/dL Hemoglobin A1c 7.3 H (<=6.0) % 02/05/23 02/05/23 Range/Units 05:52 11:36 POC Glucose (mg/dL) 152 H 227 H (70-110) mg/dL Hemoglobin A1c (<=6.0) %
[2023-02-05 16:21] LABS: Glucose,Whole Blood 233 mg/dL (70-110)
[2023-02-05 20:08] LABS: Glucose,Whole Blood 229 mg/dL (70-110)
[2023-02-05] MEDS: TAMSULOSIN 0.4 MG CAP.ER.24H PO SCH (20:50)
[2023-02-05] MEDS: CLOPIDOGREL 75 MG TAB PO SCH (20:50)
[2023-02-05] MEDS: LORATADINE 10 MG TAB PO SCH (20:50)
[2023-02-05] MEDS: ATORVASTATIN 80 MG TAB PO SCH (20:50)
[2023-02-06 06:34] LABS: Glucose,Whole Blood 147 mg/dL (70-110)
[2023-02-06] MEDS: INSULIN ASPART (NovoLOG) 100 UNIT/ML VIAL SQ SCH (06:40)
[2023-02-06] MEDS: INSULIN DETEMIR (LEVEMIR) 100 UNIT/ML SYR SQ SCH (06:45)
[2023-02-06] MEDS: PANTOPRAZOLE 40 MG TABLET PO SCH (06:45)
[2023-02-06] MEDS: carvediloL 12.5 MG TAB PO SCH (06:46)
[2023-02-06] MEDS: CITALOPRAM HYDROBROMIDE 20 MG TAB PO SCH ×2 (09:00→09:01)
[2023-02-06] MEDS: ISOSORBIDE MONONITRATE ER 60 MG TAB.ER.24H PO SCH (09:00)
[2023-02-06] MEDS: hydrALAZINE HCL 25 MG TAB PO SCH (09:01)
[2023-02-06] MEDS: NIFEdipine XL 90 MG TAB.ER.24 PO SCH (09:01)
[2023-02-06] MEDS: guaiFENesin 600 MG TABLET.ER PO SCH (09:01)
[2023-02-06] MEDS: ASPIRIN 81 MG PO SCH (09:01)
[2023-02-06 09:57] LABS: ALT 20 U/L (4-49); AST 20 U/L (17-59); African American GFR (CKD) 20 (>60 ml/min/1.73 sqM); Albumin 2.3 g/dL (3.5-5.0); Alkaline Phosphatase 117 U/L (38-126); Anion Gap 3 mmol/L; Blood Urea Nitrogen 46 mg/dL (9-20); Carbon Dioxide 20 mmol/L (22-30); Chloride 109 mmol/L (98-107); Glucose 186 mg/dL (74-99); Non-African American GFR(CKD) 17 (>60 ml/min/1.73 sqM); Potassium 4.6 mmol/L (3.5-5.1); Sodium 132 mmol/L (137-145); Total Bilirubin 0.2 mg/dL (0.2-1.3); Total Protein 4.5 g/dL (6.3-8.2)
[2023-02-06 10:01] LABS: Basophils % (A) 0 %; Eosinophils # (A) 0.1 k/uL (0-0.7); Eosinophils % (A) 2 %; HCT 26.4 % (39.0-53.0); HGB 8.9 gm/dL (13.0-17.5); Lymphocytes # (A) 0.8 k/uL (1.0-4.8); Lymphocytes % (A) 14 %; MCH 29.3 pg (25.0-35.0); MCHC 33.8 g/dL (31.0-37.0); MCV 86.5 fL (80.0-100.0); Mean Platelet Volume 7.3; Monocytes # (A) 0.3 k/uL (0-1.0); Monocytes % (A) 5 %; Neutrophils # (A) 4.5 k/uL (1.3-7.7); Neutrophils % (A) 76 %; Platelet Count 115 k/uL (150-450); RBC 3.05 m/uL (4.30-5.90); RDW 13.3 % (11.5-15.5); WBC 5.9 k/uL (3.8-10.6)
[2023-02-06 10:40] VITALS: BP 160/84; PULSE 78; RESP 18; TEMP 97.4
[2023-02-06 11:13] LABS: Glucose,Whole Blood 194 mg/dL (70-110)
--- NOTE | 2023-02-06 11:51 | P.DS ---
Providers Date of admission: 01/30/23 19:31 Expected date of discharge: 02/06/23 Attending physician: Shakeel Miramontes Consults: 01/30/23 19:28 Consult Physician Routine Consulting Provider: Tico Angeles Consult Reason/Comments: HTN Do you want consulting provider notified?: Yes 01/31/23 09:14 Consult Physician Routine Consulting Provider: Kristina Gomez Consult Reason/Comments: Acute on chronic kidney disease Do you want consulting provider notified?: Yes 02/02/23 13:59 Consult Physician Routine Consulting Provider: Elio Fink Consult Reason/Comments: urinary retention Do you want consulting provider notified?: Yes Primary care physician: [facility] Hospital Course: Discharge diagnoses; Hypertensive urgency Acute on chronic kidney disease [id number] diabetes mellitus Hypomagnesemia History of coronary artery disease History of hyperlipidemia History diabetes History of CVA Anemia of chronic disease Hospital course; patient is a 57-year-old gentleman with past medical history significant for hypertension, diabetes mellitus been to the ER because of elevated blood pressure. Patient is noncompliant with his blood pressure medications, stated that he was supposed to get IV iron infusion when he was found out to have elevated blood pressures. Patient denies any chest pain. Denies any complaint of headache. Denies any blurred vision. Denies shortness of breath. Denies any swelling of feet. No complaint of nausea, vomiting or altered bowel mov ements. Initial lab work done in the ER showed WBC 10.2, hemoglobin 11.9, platelet count 149, sodium 135, potassium 5.1, BUN 27, creatinine 3.14, magnesium 1.2 AST 45 ALT 24 EKG done in the ER showed ventricle rate of 65, QRS 101, no ST segment elevation or T-wave inversion seen Chest x-ray done in the ER showed chronic changes without evidence for acute pulmonary disease Patient admitted to medicine service 02/01. Patient seen and examined. Blood pressure is improved, last 2 blood pressure readings were better with systolics in the 150s. BUN this morning is 38, creatinine 4.11 02/02. Patient seen and examined. Denies any chest pain, no shortness of breath. No swelling of legs 815. Patient seen and examined. Blood pressure elevated. 02/04. Patient seen and examined. Still having elevated blood pressures. Started patient on hydralazine 25 mg 3 times daily 02/05. Patient seen and examined . Blood pressure much better controlled compared to yesterday. 02/06. Patient seen and examined. Blood pressure better controlled. Nephrology recommended resuming Lasix at discharge. Outpatient follow-up with cardiology and nephrology PHYSICAL EXAMINATION: GENERAL: The patient is alert and oriented x3, not in any acute distress. Well developed, well nourished. HEENT: Pupils are round and equally reacting to light. EOMI. No scleral icterus. No conjunctival pallor. Normocephalic, atraumatic. No pharyngeal erythema. No thyromegaly. CARDIOVASCULAR: S1 and S2 present. No murmurs, rubs, or gallops. PULMONARY: Chest is clear to auscultation, no wheezing or crackles. ABDOMEN: Soft, nontender, nondistended, normoactive bowel sounds. No palpable organomegaly. MUSCULOSKELETAL: No joint swelling or deformity. EXTREMITIES: No cyanosis, clubbing, or pedal edema. NEUROLOGICAL: Gross neurological examination did not reveal any focal deficits. SKIN: No rashes. Dictation was produced using [employer] dictation software. please excuse any gram matical, word or spelling errors. Patient Condition at Discharge: Fair Plan - Discharge Summary Discharge Rx Participant: Yes New Discharge Prescriptions: New cloNIDine 0.1 MG/24HR PATCH [Catapres-TTS] 1 patch TRANSDERM Q7D #4 patch carvediloL [Coreg*] 25 mg PO BID-W/MEALS #30 tab NIFEdipine XL [Procardia XL] 90 mg PO DAILY 30 Days #30 tab hydrALAZINE HCL [Apresoline] 25 mg PO TID #90 tab Continue Pantoprazole [Protonix] 40 mg PO BID Tamsulosin [Flomax] 0.8 mg PO HS Citalopram Hydrobromide [CeleXA] 20 mg PO DAILY allopurinoL [Zyloprim] 100 mg PO DAILY Clopidogrel Bisulfate [Plavix] 75 mg PO HS Glimepiride [Amaryl] 4 mg PO BID Isosorbide Mononitrate ER [Imdur] 60 mg PO DAILY Atorvastatin [Lipitor] 80 mg PO HS Furosemide [Lasix] 20 mg PO DAILY Citalopram Hydrobromide [CeleXA] 40 mg PO DAILY Triamcinolone 0.1% Cream [Kenalog 0.1% Cream] 1 applic TOPICAL BID PRN PRN Reason: Skin Irritation sitaGLIPtin [Januvia] 50 mg PO DAILY Acetaminophen-Codeine 300-30mg [Tylenol w/codeine #3] 1 tab PO BID PRN PRN Reason: Pain Darbepoetin Omari [Aranesp] 60 mcg SQ Q14D Loratadine [Claritin] 10 mg PO DAILY Gabapentin 600 mg PO BID Lurasidone [Latuda] 40 mg PO HS Ondansetron Odt [Zofran ODT] 4 mg PO BID PRN PRN Reason: Nausea Aspirin [Iberia Aspirin EC] 81 mg PO DAILY #14 tab Docusate [Colace] 100 mg PO BID Discontinued Metoprolol Succinate (ER) [Toprol XL] 50 mg PO DAILY amLODIPine [Norvasc] 10 mg PO DAILY #30 tablet Losartan Potassium [Cozaar] 25 mg PO DAILY Discharge Medication List Pantoprazole [Protonix] 40 mg PO BID 11/05/17 [History] Tamsulosin [Flomax] 0.8 mg PO HS 11/05/17 [History] Citalopram Hydrobromide [CeleXA] 20 mg PO DAILY 12/12/18 [History] allopurinoL [Zyloprim] 100 mg PO DAILY 04/05/19 [History] Clopidogrel Bisulfate [Plavix] 75 mg PO HS 04/06/19 [History] Glimepiride [Amaryl] 4 mg PO BID 09/07/19 [History] Atorvastatin [Lipitor] 80 mg PO HS 12/30/19 [History] Isosorbide Mononitrate ER [Imdur] 60 mg PO DAILY 12/30/19 [History] Citalopram Hydrobromide [CeleXA] 40 mg PO DAILY 06/29/20 [History] Furosemide [Lasix] 20 mg PO DAILY 06/29/20 [History] Loratadine [Claritin] 10 mg PO DAILY 01/21/21 [History] Gabapentin 600 mg PO BID 02/28/22 [History] Aspirin [[place]beria Aspirin EC] 81 mg PO DAILY #14 tab 06/20/22 [Rx] Lurasidone [Latuda] 40 mg PO HS 06/20/22 [History] Ondansetron Odt [Zofran ODT] 4 mg PO BID PRN 06/20/22 [History] Triamcinolone 0.1% Cream [Kenalog 0.1% Cream] 1 applic TOPICAL BID PRN 06/20/22 [History] sitaGLIPtin [Januvia] 50 mg PO DAILY 06/20/22 [History] Acetaminophen-Codeine 300-30mg [Tylenol w/codeine #3] 1 tab PO BID PRN 07/18/22 [History] Darbepoetin Omari [Aranesp] 60 mcg SQ Q14D 01/30/23 [History] Docusate [Colace] 100 mg PO BID 01/30/23 [History] NIFEdipine XL [Procardia XL] 90 mg PO DAILY 30 Days #30 tab 02/06/23 [Rx] carvediloL [Coreg*] 25 mg PO BID-W/MEALS #30 tab 02/06/23 [Rx] cloNIDine 0.1 MG/24HR PATCH [Catapres-TTS] 1 patch TRANSDERM Q7D #4 patch 02/06/23 [Rx] hydrALAZINE HCL [Apresoline] 25 mg PO TID #90 tab 02/06/23 [Rx] Follow up Appointment(s)/Referral(s): Kristina Gomez MD [STAFF PHYSICIAN] - 1 Week Lamar Scott MD [Primary Care Provider] - 1-2 days Emir Louis MD [STAFF PHYSICIAN] - 1 Week Discharge Disposition: HOME SELF-CARE
--- NOTE | 2023-02-07 11:34 | P.PN ---
Subjective Patient is seen for follow-up for acute kidney injury on top of chronic kidney disease. Patient was admitted to the hospital with uncontrolled hypertension and chest pain. Blood pressure had improved but worse again recently after IV fluids were i nitiated. Now discontinued Angiotensin receptor blockers on hold secondary to acute kidney injury. Patient was noted to have significant urine retention of 800 mL and Garcia catheter was placed. Blood pressure is better today. Creatinine at 3.7 today.No complaints. Objective - Vital Signs Vital signs: Vital Signs Temp 97.4 F L 02/06/23 08:59 Pulse 78 02/06/23 08:59 Resp 18 02/06/23 08:59 BP 160/84 02/06/23 08:59 Pulse Ox 97 02/06/23 08:59 FiO2 Intake & Output 02/06/23 02/07/23 02/07/23 18:59 06:59 18:59 Intake Total 620 Output Total 475 Balance 145 Intake: IV 20 Invasive Line 1 10 Invasive Line 2 10 Oral 600 Output: Urine 475 - Exam Patient is awake, comfortable, in no acute distress Examination of the heart S1 and S2 Examination of the lungs bilateral breath sounds are heard Abdomen is soft nontender Examination of lower extremities shows no significant edema DEGREASING SOLUTION RECLAIMER exam grossly intact - Labs CBC & Chem 7: 02/06/23 08:57 02/06/23 08:57 Assessment and Plan Assessment: 1. Acute kidney injury most likely related to uncontrolled hypertension and urine retention. Possible component of hypovolemia as well. Status post IV fluids.. 2. Chronic kidney disease NKF stage IV with baseline creatinine 2-2.6 mg/dL. Etiology is diabetic kidney disease 3. Anemia of chronic disease maintained on Aranesp as outpatient 4. Hypertensive urgency as patient did have chest discomfort. Currently improving. Losartan on hold due to significant acute kidney injury. Carvedilol will be increased. And IV fluids discontinued. Mildle hypervolemic today. 5. Urine retention status post Garcia catheter placement. 800 mL of urine was noted post void. Plan: Resume diuretics Continue off of IV fluids Continue with Garcia catheter Continue to hold losartan for now. Follow-up as outpatient in about 1 week's time Continue Flomax
== END 2023-02-06 14:36 | disposition home or self-care (01) | DRG 305 ==
LOC: EC 14:11 → OBSVTOIN 19:31 → 3SCARD 19:31
PROVIDERS: ADMIT Hospitalist; ATTEND Hospitalist
DX: I16.1 Hypertensive emergency (principal); N18.4 Chronic kidney disease, stage 4 (severe); N17.9 Acute kidney failure, unspecified; I12.9 Hypertensive chronic kidney disease with stage 1 through stage 4 chronic kidney disease, or unspecified chronic kidney disease; I25.10 Atherosclerotic heart disease of native coronary artery without angina pectoris; I25.2 Old myocardial infarction; H54.8 Legal blindness, as defined in USA; M06.9 Rheumatoid arthritis, unspecified; F41.9 Anxiety disorder, unspecified; F32.A Depression, unspecified; N40.1 Benign prostatic hyperplasia with lower urinary tract symptoms; R33.8 Other retention of urine; D63.1 Anemia in chronic kidney disease; E11.40 Type 2 diabetes mellitus with diabetic neuropathy, unspecified; E11.22 Type 2 diabetes mellitus with diabetic chronic kidney disease; E78.5 Hyperlipidemia, unspecified; E83.42 Hypomagnesemia; E86.0 Dehydration; G43.909 Migraine, unspecified, not intractable, without status migrainosus; E87.70 Fluid overload, unspecified; Z79.82 Long term (current) use of aspirin; Z79.84 Long term (current) use of oral hypoglycemic drugs; Z79.899 Other long term (current) drug therapy; Z82.0 Family history of epilepsy and other diseases of the nervous system; Z82.49 Family history of ischemic heart disease and other diseases of the circulatory system; Z83.3 Family history of diabetes mellitus; Z86.73 Personal history of transient ischemic attack (TIA), and cerebral infarction without residual deficits; Z91.148 Patient's other noncompliance with medication regimen for other reason; Z95.5 Presence of coronary angioplasty implant and graft; Z28.310 Unvaccinated for COVID-19; Z28.21 Immunization not carried out because of patient refusal; Z91.041 Radiographic dye allergy status; Z88.8 Allergy status to other drugs, medicaments and biological substances
CPT/HCPCS: 36415; 71045; 76770; 80048; 80053; 80061; 81001; 82306; 83036; 83735; 83880; 84100; 84484; 85025; 85027; 85610; 85730; 93005; 93975; 94760; 96361; 96374; 96375; 96376; 99285

== ENCOUNTER 2023-02-23 06:42 | Observation (INO) | payer MEDICARE ==
[2023-02-23] MEDS ORDERED: MORPHINE SULFATE 4 MG/ML SYRINGE IVP STA (06:58)
[2023-02-23 07:02] LABS: Basophils % (A) 0 %; Eosinophils # (A) 0.1 k/uL (0-0.7); Eosinophils % (A) 2 %; HCT 27.8 % (39.0-53.0); HGB 9.3 gm/dL (13.0-17.5); Lymphocytes # (A) 0.9 k/uL (1.0-4.8); Lymphocytes % (A) 13 %; MCH 29.2 pg (25.0-35.0); MCHC 33.6 g/dL (31.0-37.0); MCV 87.1 fL (80.0-100.0); Mean Platelet Volume 8.1; Monocytes # (A) 0.5 k/uL (0-1.0); Monocytes % (A) 7 %; Neutrophils # (A) 5.5 k/uL (1.3-7.7); Neutrophils % (A) 77 %; Platelet Count 114 k/uL (150-450); RBC 3.19 m/uL (4.30-5.90); WBC 7.2 k/uL (3.8-10.6)
--- NOTE | 2023-02-23 07:05 | ED ---
Chest Pain HPI - General Chief Complaint: Chest Pain Stated Complaint: Chest Pain Time Seen by Provider: 02/23/23 06:44 Source: patient, EMS Mode of arrival: EMS - History of Present Illness Initial Comments: Patient is a pleasant 57-year-old male presenting to the emergency room with complaints of midsternal chest pain ongoing for approximately 30 minutes prior to his arrival to the emergency room. He did receive aspirin 325 mg from EMS but do not receive any nitroglycerin or other pain medication. He reports that the pain is worse with deep inspiration and palpation. He does note that his bilateral lower extremity edema is increased from his baseline. He denies any shortness of breath at this time but as stated above he does report pain with deep inspiration. He denies any abdominal pain, nausea, vomiting, diaphoresis, headache, dizziness, fevers or chills. He has a significant past medical history as listed below. - Related Data Home Medications Medication Instructions Recorded Confirmed Pantoprazole [Protonix] 40 mg PO BID 11/05/17 02/13/23 Tamsulosin [Flomax] 0.8 mg PO HS 11/05/17 02/13/23 Citalopram Hydrobromide [CeleXA] 20 mg PO DAILY 12/12/18 02/13/23 allopurinoL [Zyloprim] 100 mg PO DAILY 04/05/19 02/13/23 Clopidogrel Bisulfate [Plavix] 75 mg PO HS 04/06/19 02/13/23 Glimepiride [Amaryl] 4 mg PO BID 09/07/19 02/13/23 Atorvastatin [Lipitor] 80 mg PO HS 12/30/19 02/13/23 Isosorbide Mononitrate ER [Imdur] 60 mg PO DAILY 12/30/19 02/13/23 Citalopram Hydrobromide [CeleXA] 40 mg PO DAILY 06/29/20 02/13/23 Furosemide [Lasix] 20 mg PO DAILY 06/29/20 02/13/23 Loratadine [Claritin] 10 mg PO DAILY 01/21/21 02/13/23 Gabapentin 600 mg PO BID 02/28/22 02/13/23 Lurasidone [Latuda] 40 mg PO HS 06/20/22 02/13/23 Ondansetron Odt [Zofran ODT] 4 mg PO BID PRN 06/20/22 02/13/23 Triamcinolone 0.1% Cream [Kenalog 1 applic TOPICAL BID PRN 06/20/22 02/13/23 0.1% Cream] sitaGLIPtin [Januvia] 50 mg PO DAILY 06/20/22 02/13/23 Acetaminophen-Codeine 300-30mg 1 tab PO BID PRN 07/18/22 02/13/23 [Tylenol w/codeine #3] Darbepoetin Omari [Aranesp] 60 mcg SQ Q14D 01/30/23 02/13/23 Docusate [Colace] 100 mg PO BID 01/30/23 02/13/23 Previous Rx's Medication Instructions Recorded Aspirin [[place] Aspirin EC] 81 mg PO DAILY #14 tab 06/20/22 NIFEdipine XL [Procardia XL] 90 mg PO DAILY 30 Days #30 tab 02/06/23 carvediloL [Coreg*] 25 mg PO BID-W/MEALS #30 tab 02/06/23 cloNIDine 0.1 MG/24HR PATCH 1 patch TRANSDERM Q7D #4 patch 02/06/23 [Catapres-TTS] hydrALAZINE HCL [Apresoline] 25 mg PO TID #90 tab 02/06/23 Allergies Allergy/AdvReac Type Severity Reaction Status Date / Time Iodinated Contrast Media AdvReac Nausea & Verified 02/13/23 13:45 [Iodinated Contrast- Oral Vomiting and IV Dye] sucralfate AdvReac Nausea & Verified 02/13/23 13:45 Vomiting Review of Systems ROS Statement: Those systems with pertinent positive or pertinent negative responses have been documented in the HPI. ROS Other: All systems not noted in ROS Statement are negative. Past Medical History Past Medical History: Coronary Artery Disease (CAD), CVA/TIA, Diabetes Mellitus, GERD/Reflux, Hyperlipidemia, Hypertension, Myocardial Infarction (CA), Renal Disease, Rheumatoid Arthritis (RA) Additional Past Medical History / Comment(s): stroke apr 2017, migranes, diabetic neuropathy arms and legs, stage 2 kidney failure, PANCREATITIS, LEGALLY BLIND, enlarged prostate, trouble urinating Last Myocardial Infarction Date:: 2014? not sure History of Any Multi-Drug Resistant Organisms: None Reported Past Surgical History: Cholecystectomy, Heart Catheterization With Stent, Heart Catheterization With Stent Additional Past Surgical History / Comment(s): Prostrate surgery. HIATAL HERNIA REPAIR -January Past Anesthesia/Blood Transfusion Reactions: No Reported Reaction Additional Past Anesthesia/Blood Transfusion Reaction / Comment(s): never had anethesia Date of Last Stent Placement:: 2017 Past Psychological History: Anxiety, Depression Smoking Status: Never smoker - Past Family History Mother Family Medical History: CVA/TIA, Diabetes Mellitus, Hypertension Additional Family Medical History / Comment(s): Parkinson's Mother Father Family Medical History: CVA/TIA, Diabetes Mellitus, Myocardial Infarction (CA) Additional Family Medical History / Comment(s): Father of a CA in his 50s. General Exam Limitations: physical limitation (Legally blind) General appearance: alert, in no apparent distress Head exam: Present: atraumatic, normocephalic, normal inspection Eye exam: Present: other (Legally blind). Absent: scleral icterus, conjunctival injection, periorbital swelling, periorbital tenderness ENT exam: Present: normal exam, mucous membranes moist Neck exam: Present: normal inspection, full ROM Respiratory exam: Present: normal lung sounds bilaterally, chest wall tenderness. Absent: respiratory distress, wheezes, rales, rhonchi, stridor, accessory muscle use Cardiovascular Exam: Present: regular rate, normal rhythm, normal heart sounds. Absent: systolic murmur, diastolic murmur, rubs, gallop, clicks GI/Abdominal exam: Present: soft, normal bowel sounds. Absent: distended, tenderness, guarding, rebound, rigid Extremities exam: Present: normal capillary refill, pedal edema (Bilateral lower extremity edema +2). Absent: tenderness Back exam: Present: normal inspection Neurological exam: Present: alert, oriented X3, CN II-XII intact Psychiatric exam: Present: normal affect, normal mood Skin exam: Present: warm, dry, intact, pallor. Absent: rash Course Vital Signs 02/23/23 02/23/23 06:43 07:36 Temperature 97.0 F L Pulse Rate 79 61 Respiratory 19 18 Rate Blood Pressure 148/77 135/73 O2 Sat by Pulse 99 Oximetry Chest Pain MDM - MDM Was pt. sent in by a medical professional or institution (, PA, BUSINESS DEVELOPMENT SPECIALIST, urgent care, hospital, or fpc...) When possible be specific @ -No Did you speak to anyone other than the patient for history (EMS, parent, family, police, friend...)? What history was obtained from this source @ -No Did you review nursing and triage notes (agree or disagree)? Why? @ -I reviewed and agree with nursing and triage notes Were old charts reviewed (outside hosp., previous admission, EMS record, old EKG, old radiological studies, urgent care reports/EKG's, fpc records)? Report findings @ -Yes, previous records of EKG and cardiac consults were reviewed. Differential Diagnosis (chest pain, altered mental status, abdominal pain women, abdominal pain men, vaginal bleeding, weakness, fever, dyspnea, syncope, headache, dizziness, GI bleed, back pain, seizure, CVA, palpatations, mental health, musculoskeletal)? @ -Differential Chest Pain: Stable Angina, Unstable Angina, STEMI, NSTEMI Aortic Dissection, Pneumothorax, Musculoskeletal, Esophageal Spasm GERD, Cholecystitis, Pancreatitis, Zoster, this is not meant to be an all-inclusive list. EKG interpreted by me (3pts min.). @ -Sinus rhythm ventricular rate 70 bpm, ME interval 156 ms, QRS duration 112 ms, QT/QTC 426/448 ms, PRT axes 45, -25, 26 X-rays interpreted by me (1pt min.). @ -Chest x-ray: No focal consolidation, pneumothorax or pleural effusion. Per radiologist chronic parenchynal changes noted CT interpreted by me (1pt min.). @ -None done U/S interpreted by me (1pt. min.). @ -None done What testing was considered but not performed or refused? (CT, X-rays, U/S, labs)? Why? @ -None What meds were considered but not given or refused? Why? @ -None Did you discuss the management of the patient with other professionals (professionals i.e. , PA, BUSINESS DEVELOPMENT SPECIALIST, lab, RT, psych nurse, marriage and family social worker, command and control specialist, teacher, commercial escrow officer, hospice case manager)? Give summary @ -Yes, Spoke with Ali with [facility] services regarding patient presentation workup and recommendation for admission. Advised orders are placed of high-dose heparin, VQ scan, venous Doppler, echocardiogram, cardiology consult with admission orders no further orders advice at this time. Was smoking cessation discussed for >3mins.? @ -No Was critical care preformed (if so, how long)? @ -No Were there social determinants of health that impacted care today? How? (Homelessness, low income, unemployed, alcoholism, drug addiction, transportation, low edu. Level, literacy, decrease access to med. care, care home, rehab)? @ -No Was there de-escalation of care discussed even if they declined (Discuss DNR or withdrawal of care, Hospice)? DNR status @ -No What co-morbidities impacted this encounter? (DM, HTN, Smoking, COPD, CAD, Cancer, CVA, ARF, Chemo, Hep., AIDS, mental health diagnosis, sleep apnea, morbid obesity)? @ -None Was patient admitted / discharged? Hospital course, mention meds given and route, prescriptions, significant lab abnormalities, going to OR and other pertinent info. @ -57-year-old male presenting to the emergency room with complaints of midsternal chest pain ongoing for approximately 30 minutes prior to his arrival to the emergency room. He did receive aspirin 325 mg from EMS but do not receive any nitroglycerin or other pain medication. He reports that the pain is worse with deep inspiration and palpation. Associated lower extremity edema, no other associated symptoms. Will workup with for chest pain with EKG, chest x- ray, CBC, CMP, troponin, magnesium, proBNP, and coags; no need for aspirin given by EMS no indication for nitroglycerin as well chest pain with stable blood pressure will give morphine for pain and monitor response. Due to comorbid conditions despite reproducibility of chest pain will plan for observation admission for further evaluation and monitoring. Patient is complaining of some nausea which she believes is related to the aspirin he was given by ambulance will give Zofran. EKG shows sinus rhythm, chest x-ray shows no acute cardiopulmonary process. Laboratory studies reveal stable anemia with a hemoglobin of 9.3, no leukocytosis, and normal platelets. CMP reveals stable chronic kidney disease with a creatinine of 3.49 a BUN of 37, carbon dioxide low at 21 chloride high at 111 magnesium and potassium levels both normal, liver enzymes normal, alkaline phosphate normal, calcium low at 7.4 however corrected calcium for low albumin level is stable at 8.0. PT INR and PTT normal, d-dimer elevated at 1.38. Due to chronic renal disease unable to proceed with CT angiogram of the chest will order VQ scan along with venous Dopplers will start high-dose heparin empirically due to high risk factors. These findings were all discussed with patient and spouse at bedside. Advised recommendation of admission for further monitoring of chest pain and evaluation for possible thrombus. Patient is agreeable to this plan. Spoke with Dr. Myers with [facility] services regarding patient presentation workup and recommendation for admission. Advised orders are placed of high-dose heparin, VQ scan, venous Doppler, echocardiogram, cardiology consult with admission orders no further orders advice at this time. Will admit patient is stable condition to medical surgical unit under [facility] services for further evaluation of chest pain and elevated d-dimer. Undiagnosed new problem with uncertain prognosis? @ -No Drug Therapy requiring intensive monitoring for toxicity (Heparin, Nitro, Insulin, Cardizem)? @ -No Were any procedures done? @ -No Diagnosis/symptom? @ -Chest pain Acute, or Chronic, or Acute on Chronic? @ -Acute Uncomplicated (without systemic symptoms) or Complicated (systemic symptoms)? @ -Complicated Side effects of treatment? @ -No Exacerbation, Progression, or Severe Exacerbation? @ -No Poses a threat to life or bodily function? How? (Chest pain, [place], CA, pneumonia, PE, COPD, DKA, ARF, appy, cholecystitis, CVA, Diverticulitis, Homicidal, Suicidal, threat to staff... and all critical care pts) @ -Yes, chest pain with multiple risk factors at risk for ACS. Diagnosis/symptom? @ -Elevated d-dimer Acute, or Chronic, or Acute on Chronic? @ -Acute Uncomplicated (without systemic symptoms) or Complicated (systemic symptoms)? @ -Complicated Side effects of treatment? @ -[none] Exacerbation, Progression, or Severe Exacerbation] @ -[no] Poses a threat to life or bodily function? @ -Yes, high risk for venous thrombosis and pulmonary emboli. Case discussed with Dr. Sim. Disposition Clinical Impression: Chest pain, Elevated d-dimer Disposition: ADMITTED IP TO THIS [facility] Condition: Stable Referrals: Lamar Scott MD [Primary Care Provider] - 1-2 days Time of Disposition: 07:50
--- NOTE | 2023-02-23 07:09 | XR ---
EXAMINATION TYPE: XR chest 2V DATE OF EXAM: 02/23/2023 7:00 AM COMPARISON: Chest radiographs from 01/30/2023 TECHNIQUE: XR chest 2V Frontal and lateral views of the chest. CLINICAL INDICATION:Male, 57 years old with history of Chest Pain; FINDINGS: Lungs/Pleura: There is no evidence of pleural effusion, focal consolidation, or pneumothorax. Simila r elevation of the right hemidiaphragm. Chronic senescent parenchyma change. Pulmonary vascularity: Unremarkable. Heart/mediastinum: Cardiomediastinal silhouette is unremarkable. Musculoskeletal: No acute osseous pathology. IMPRESSION: Chronic changes without acute pulmonary process. No significant change from prior.
[2023-02-23 07:16] LABS: Partial Thromboplastin Time 25.5 sec (22.0-30.0); Prothrombin Time 10.2 sec (9.0-12.0)
[2023-02-23 07:25] LABS: ALT 20 U/L (4-49); AST 28 U/L (17-59); African American GFR (CKD) 22 (>60 ml/min/1.73 sqM); Albumin 3.2 g/dL (3.5-5.0); Alkaline Phosphatase 125 U/L (38-126); Anion Gap 7 mmol/L; Blood Urea Nitrogen 37 mg/dL (9-20); Calcium 7.4 mg/dL (8.4-10.2); Carbon Dioxide 21 mmol/L (22-30); Chloride 111 mmol/L (98-107); Glucose 154 mg/dL (74-99); Magnesium 1.6 mg/dL (1.6-2.3); Non-African American GFR(CKD) 19 (>60 ml/min/1.73 sqM); Potassium 3.6 mmol/L (3.5-5.1); Sodium 139 mmol/L (137-145); Total Bilirubin 0.4 mg/dL (0.2-1.3); Total Protein 5.6 g/dL (6.3-8.2)
[2023-02-23] MEDS ORDERED: HEPARIN SODIUM 1,000 UN/ML (10ML VL) IV PRN (07:39)
[2023-02-23] MEDS ORDERED: HEPARIN SODIUM 1,000 UN/ML (10ML VL) IV ONE (07:39)
[2023-02-23] MEDS ORDERED: HEPARIN SOD,PORK IN 0.45% NACL 25,000 UNIT in 0.45% NACL 1 250ML.BAG IV SCH (07:45)
[2023-02-23] MEDS ORDERED: traMADol 50 MG TAB PO PRN (07:48)
[2023-02-23] MEDS ORDERED: ONDANSETRON 4 MG/2 ML VIAL IVP PRN (07:48)
[2023-02-23] MEDS ORDERED: NALOXONE 0.4 MG/ML 1 ML VIAL IV PRN (07:48)
[2023-02-23] MEDS ORDERED: MORPHINE SULFATE 4 MG/ML SYRINGE IV PRN (07:48)
[2023-02-23] MEDS ORDERED: ACETAMINOPHEN TAB 325 MG TAB PO PRN (07:48)
--- NOTE | 2023-02-23 08:15 | US ---
EXAMINATION TYPE: US venous doppler duplex LE BI DATE OF EXAM: 02/23/2023 7:40 AM COMPARISON: NONE CLINICAL INDICATION: Male, 57 years old with history of Bilateral LE swelling w elevated d dimer; kay vated d dimer and bilateral calf swelling. On blood thinners SIDE PERFORMED: Bilateral TECHNIQUE: The lower extremity deep venous system is examined utilizing real time linear array sonog annabel with graded compression, doppler sonography and color-flow sonography. VESSELS IMAGED: Common Femoral Vein Deep Femoral Vein Greater Saphenous Vein * Femoral Vein Popliteal Vein Small Saphenous Vein * Proximal Calf Veins (* superficial vessels) Grayscale, color doppler, spectral doppler imaging performed of the deep veins of the lower extremiti es. There is normal flow, compressibility, vascular waveforms. Right Leg: No evidence for DVT Left Leg: No evidence for DVT. Hypoechoic heterogeneous area seen in left groin measuring 1.9 x 1.8 x 1.2cm consistent with a prominent benign-appearing lymph node. IMPRESSION: No deep venous thrombosis of the bilateral lower extremities.
[2023-02-23 11:20] LABS: Glucose,Whole Blood 162 mg/dL (70-110)
[2023-02-23 12:11] LABS: Basophils % (A) 0 %; Eosinophils # (A) 0.1 k/uL (0-0.7); Eosinophils % (A) 2 %; HCT 27.8 % (39.0-53.0); HGB 9.2 gm/dL (13.0-17.5); Hypochromasia Slight; Lymphocytes # (A) 1.2 k/uL (1.0-4.8); Lymphocytes % (A) 20 %; MCH 29.4 pg (25.0-35.0); MCV 89.1 fL (80.0-100.0); Mean Platelet Volume 7.9; Monocytes # (A) 0.4 k/uL (0-1.0); Monocytes % (A) 6 %; Neutrophils # (A) 4.2 k/uL (1.3-7.7); Neutrophils % (A) 70 %; Platelet Count 101 k/uL (150-450); Poikilocytosis Slight; RBC 3.12 m/uL (4.30-5.90); RDW 15.1 % (11.5-15.5)
[2023-02-23 12:24] LABS: Prothrombin Time 10.9 sec (9.0-12.0)
[2023-02-23 12:31] LABS: Partial Thromboplastin Time >200.0 sec (22.0-30.0)
--- NOTE | 2023-02-23 13:18 | NM ---
EXAMINATION TYPE: NM pul vent and perfuse DATE OF EXAM: 02/23/2023 CLINICAL INDICATION: Male, 57 years old with history of Chest pain with elevated d-dimer; TECHNIQUE: Utilizing inhalation of 38.7 mCi Tc 99m DTPA aerosol and intravenous injection of 5 mCi o f Tc 99m MAA, ventilation and perfusion images are acquired post injection in multiple projections. FINDINGS: Normal radiotracer distribution is noted in the lungs. There is no evidence of mismatched defects. IMPRESSION: No pulmonary embolus
[2023-02-23] MEDS ORDERED: Acetaminophen-Codeine 300-30mg TAB PO PRN (13:45)
[2023-02-23] MEDS ORDERED: DEXTROSE 50% SYRINGE 50 ML IVP PRN ×2 (13:47)
--- NOTE | 2023-02-23 13:53 | P.HPIM ---
History of Present Illness H&P Date: 02/23/23 History of present illness; patient is a 57-year-old gentleman with past medical history significant for hypertension, diabetes mellitus who presented to the ER because of chest pain. Patient stated that he was waken up from sleep because of chest pain that was central in location, sharp, nonradiating. There was no aggravating or relieving factors associated with this chest pain. Denies any shortness of breath. Patient has been complaining of swelling of feet. Denies orthopnea or PND. Because of chest pain, patient came to the ER Initial lab work done in the ER showed WBC 7.2, hemoglobin 9.3, platelet count 114, sodium 139, potassium 3.6, BUN 37, creatinine 3.49 troponin 0.012 proBNP 2570 EKG done in the ER showed no ST segment changes, no T-wave inversions seen. Chest x-ray done in the ER showed chronic changes without acute pulmonary process Patient d-dimer was elevated, patient was started on heparin by ER and VQ scan and ultrasound of lower extremities were ordered. Patient admitted to medicine service REVIEW OF SYSTEMS: CONSTITUTIONAL: No fever, no malaise, no fatigue. HEENT: No recent visual problems or hearing problems. Denied any sore throat. CARDIOVASCULAR: As mentioned in HPI PULMONARY: As mentioned in HPI GASTROINTESTINAL: No diarrhea, no nausea, no vomiting, no abdominal pain. NEUROLOGICAL: No headaches, no weakness, no numbness. HEMATOLOGICAL: Denies any bleeding or petechiae. GENITOURINARY: Denies any burning micturition, frequency, or urgency. MUSCULOSKELETAL/RHEUMATOLOGICAL: Denies any joint pain, swelling, or any muscle pain. ENDOCRINE: Denies any polyuria or polydipsia. The rest of the 14-point review of systems is negative. PHYSICAL EXAMINATION: GENERAL: The patient is alert and oriented x3, not in any acute distress. Well developed, well nourished. HEENT: Pupils are round and equally reacting to light. EOMI. No scleral icterus. No conjunctival pallor. Normocephalic, atraumatic. No pharyngeal erythema. No thyromegaly. CARDIOVASCULAR: S1 and S2 present. No murmurs, rubs, or gallops. PULMONARY: Chest is clear to auscultation, no wheezing or crackles. ABDOMEN: Soft, nontender, nondistended, normoactive bowel sounds. No palpable organomegaly. MUSCULOSKELETAL: No joint swelling or deformity. EXTREMITIES: No cyanosis, clubbing,. 1+ pitting edema of lower extremities bilaterally NEUROLOGICAL: Gross neurological examination did not reveal any focal deficits. SKIN: No rashes. Assessment and plan Chest pain Hypertension Hyperlipidemia Depression Acute on chronic kidney disease Kmn-[id number] diabetes mellitus History of coronary artery disease History of CVA Anemia of chronic disease Monitor vital signs Monitor CBC Monitor CMP Continue telemetry monitoring Trend troponin D-dimer was elevated, V/Q scan was negative for PE Ultrasound of lower extremities negative for DVT DC pharmacy to dose heparin Monitor blood sugar levels, continue scheduled insulin Continue when necessary IV hydralazine for elevated blood pressure readings above 180 systolic Consult cardiology Labs and medication were reviewed.. Continue same treatment. Continue with symptomatic treatment. Resume home medication. Monitor labs and vitals. DVT and GI prophylaxis. Further recommendations as per clinical course of the patient Dictation was produced using [employer] dictation software. please excuse any grammatical, word or spelling errors. Past Medical History Past Medical History: Coronary Artery Disease (CAD), CVA/TIA, Diabetes Mellitus, GERD/Reflux, Hyperlipidemia, Hypertension, Myocardial Infarction ([place]), Renal Disease, Rheumatoid Arthritis ([place]) Additional Past Medical History / Comment(s): stroke apr 2017, migranes, diabetic neuropathy arms and legs, stage 3 kidney failure, PANCREATITIS, LEGALLY BLIND, enlarged prostate, trouble urinating Last Myocardial Infarction Date:: 2014 History of Any Multi-Drug Resistant Organisms: None Reported Past Surgical History: Cholecystectomy, Heart Catheterization With Stent, Heart Catheterization With Stent Additional Past Surgical History / Comment(s): Prostrate surgery. HIATAL HERNIA REPAIR -January Past Anesthesia/Blood Transfusion Reactions: No Reported Reaction Additional Past Anesthesia/Blood Transfusion Reaction / Comment(s): never had anethesia Date of Last Stent Placement:: 2017 Past Psychological History: Anxiety, Depression Additional Psychological History / Comment(s): Pt resides with his spouse. He uses a quad cane or walker to ambulate. He is legally blind. He reads minimally with magnifying glass and signs his name only now. His spouse drives him to [employer] Smoking Status: Never smoker Past Alcohol Use History: None Reported Past Drug Use History: None Reported - Past Family History Mother Family Medical History: CVA/TIA, Diabetes Mellitus, Hypertension Additional Family Medical History / Comment(s): Parkinson's Mother Father Family Medical History: CVA/TIA, Diabetes Mellitus, Myocardial Infarction ([place]) Additional Family Medical History / Comment(s): Father of a [place] in his 50s. Medications and Allergies Home Medications Medication Instructions Recorded Confirmed Type Pantoprazole [Protonix] 40 mg PO BID 11/05/17 02/23/23 History Tamsulosin [Flomax] 0.8 mg PO HS 11/05/17 02/23/23 History Citalopram Hydrobromide [CeleXA] 20 mg PO DAILY 12/12/18 02/23/23 History allopurinoL [Zyloprim] 100 mg PO DAILY 04/05/19 02/23/23 History Clopidogrel Bisulfate [Plavix] 75 mg PO HS 04/06/19 02/23/23 History Glimepiride [Amaryl] 4 mg PO BID 09/07/19 02/23/23 History Atorvastatin [Lipitor] 80 mg PO HS 12/30/19 02/23/23 History Isosorbide Mononitrate ER [Imdur] 60 mg PO DAILY 12/30/19 02/23/23 History Citalopram Hydrobromide [CeleXA] 40 mg PO DAILY 06/29/20 02/23/23 History Furosemide [Lasix] 20 mg PO DAILY 06/29/20 02/23/23 History Loratadine [Claritin] 10 mg PO DAILY 01/21/21 02/23/23 History Gabapentin 600 mg PO BID 02/28/22 02/23/23 History Aspirin [Louisa Aspirin EC] 81 mg PO DAILY #14 tab 06/20/22 02/23/23 Rx Lurasidone [Latuda] 40 mg PO HS 06/20/22 02/23/23 History Ondansetron Odt [Zofran ODT] 4 mg PO BID PRN 06/20/22 02/23/23 History Triamcinolone 0.1% Cream [Kenalog 1 applic TOPICAL BID PRN 06/20/22 02/23/23 History 0.1% Cream] sitaGLIPtin [Januvia] 50 mg PO DAILY 06/20/22 02/23/23 History Acetaminophen-Codeine 300-30mg 1 tab PO BID PRN 07/18/22 02/23/23 History [Tylenol w/codeine #3] Darbepoetin Omari [Aranesp] 60 mcg SQ Q14D 01/30/23 02/23/23 History Docusate [Colace] 100 mg PO BID 01/30/23 02/23/23 History NIFEdipine XL [Procardia XL] 90 mg PO DAILY 30 Days #30 tab 02/06/23 02/23/23 Rx carvediloL [Coreg*] 25 mg PO BID-W/MEALS #30 tab 02/06/23 02/23/23 Rx hydrALAZINE HCL [Apresoline] 25 mg PO TID #90 tab 02/06/23 02/23/23 Rx cloNIDine 0.1 MG/24HR PATCH 1 patch TRANSDERM HERNANDEZ 02/23/23 02/23/23 History [Catapres-TTS] Allergies Allergy/AdvReac Type Severity Reaction Status Date / Time Iodinated Contrast Media AdvReac Nausea & Verified 02/23/23 10:36 [Iodinated Contrast- Oral Vomiting and IV Dye] sucralfate AdvReac Nausea & Verified 02/23/23 10:36 Vomiting Physical Exam Vitals: Vital Signs Temp Pulse Pulse Resp BP BP Pulse Ox 02/23/23 10:41 97.6 F 56 L 18 145/67 97 02/23/23 10:05 97.2 F L 56 L 18 129/63 94 L 02/23/23 07:36 61 18 135/73 99 02/23/23 06:43 97.0 F L 79 19 148/77 Intake and Output 02/22/23 02/23/23 02/23/23 22:59 06:59 14:59 Intake Total 52.98 Balance 52.98 Intake: Intake, IV Titration 52.98 Amount Heparin Sod,Pork in 0.45% 52.98 NaCl 25,000 unit In 0.45 % NaCl 1 250ml.bag @ 18 UNITS/KG/HR 16.819 mls/hr IV .[id number] [facility] Rx#: [id number] Other: Weight 93.44 kg 93.44 kg Results CBC & Chem 7: 02/23/23 11:32 02/23/23 06:53 Labs: Abnormal Lab Results - Last 24 Hours (Table) 02/23/23 02/23/23 02/23/23 Range/Units 06:53 06:53 06:53 RBC 3.19 L (4.30-5.90) m/uL Hgb 9.3 L (13.0-17.5) gm/dL Hct 27.8 L (39.0-53.0) % Plt Count 114 L (150-450) k/uL Lymphocytes # 0.9 L (1.0-4.8) k/uL APTT (22.0-30.0) sec D-Dimer 1.38 H (<0.60) mg/L FEU Chloride 111 H (98-107) mmol/L Carbon Dioxide 21 L (22-30) mmol/L BUN 37 H (9-20) mg/dL Creatinine 3.49 H (0.66-1.25) mg/dL Glucose 154 H (74-99) mg/dL POC Glucose (mg/dL) (70-110) mg/dL Calcium 7.4 L (8.4-10.2) mg/dL Total Protein 5.6 L (6.3-8.2) g/dL Albumin 3.2 L (3.5-5.0) g/dL 02/23/23 02/23/23 02/23/23 Range/Units 11:18 11:32 11:32 RBC 3.12 L (4.30-5.90) m/uL Hgb 9.2 L (13.0-17.5) gm/dL Hct 27.8 L (39.0-53.0) % Plt Count 101 L (150-450) k/uL Lymphocytes # (1.0-4.8) k/uL APTT >200.0 H* (22.0-30.0) sec D-Dimer (<0.60) mg/L FEU Chloride (98-107) mmol/L Carbon Dioxide (22-30) mmol/L BUN (9-20) mg/dL Creatinine (0.66-1.25) mg/dL Glucose (74-99) mg/dL POC Glucose (mg/dL) 162 H (70-110) mg/dL Calcium (8.4-10.2) mg/dL Total Protein (6.3-8.2) g/dL Albumin (3.5-5.0) g/dL Thrombosis Risk Factor Assmnt - Choose All That Apply Any of the Below Risk Factors Present?: Yes Each Factor Represents 1 point: Age 41-60 years, Obesity (BMI >25) Other Risk Factors: No Other congenital or acquired thrombophilia - If yes, enter type in comment: No Thrombosis Risk Factor Assessment Total Risk Factor Score: 2 Thrombosis Risk Factor Assessment Level: Low Risk
[2023-02-23] MEDS ORDERED: NIFEdipine XL 90 MG TAB.ER.24 PO SCH (14:00)
--- NOTE | 2023-02-23 14:43 | P.CRDCN ---
History of Present Illness Consult date: 02/23/23 History of present illness: History of Present Illness: The patient is a 57-year-old male with a history of stroke prior history of stenting of the LAD and left circumflex with occluded RCA [place] [address] Avendaño who presents with lower extremities weakness and chest discomfort. He has been having discomfort on and off for the last week, not activity related. He has dyspnea on exertion, occasional dizziness on palpitation but no syncope. He has noted progression of his peripheral edema. He has a known history of chronic kidney disease. He has no clear PND or orthopnea. He is pain-free at the time of my evaluation. In the past his systolic function was normal. In the emergency room he was noted to have an elevated d-dimer and subsequently underwent a ventilation/perfusion scan that showed no evidence of pulmonary embolism and his duplex scan of the lower extremities showed no evidence of DVT. His initial troponin was normal and he had elevation of the NT proBNP. According to the patient this is the first time he has discomfort since his stenting in 2018. Physical risk factors are positive for hypertension, diabetes and hyperlipidemia, he is a nonsmoker. Medications: Aspirin, Januvia 50 mg daily, Coreg 25 mg twice a day, Procardia 90 mg daily, isosorbide 60 mg daily, Amaryl, Lasix 20 mg daily, Celexa, Lipitor 80 mg daily, Plavix 75 mg daily Review of Systems: Respiratory: He has dyspnea on exertion but no recent wheezing or cough GI: No nausea or vomiting . No history of peptic ulcer disease. No recent GI bleed. : No hematuria or dysuria. Nervous System: No seizure. He has a prior history of stroke. Physical Examination: 57-year-old male, alert oriented appears older than stated age ,Blood pressure. 145/60, Heart rate 60 Head: Normocephalic. Eyes: Sclerae nonicteric. Neck: Good carotid upstroke, no bruit, no jugular venous distention. Lungs: Clear to auscultation. Heart: Regular rate and rhythm, S1-S2, no S3, no rub. Systolic ejection murmur 2/6 at the base. Abdomen: Soft nontender, positive bowel sounds no organomegaly. Extremities: +2 edema, intact distal pulses. Labs: Hemoglobin 9.2, d-dimer 1.38, BUN 37, creatinine 3.49. Potassium 3.6. Troponin less than 0.012. NT proBNP 2570. Chest x-ray with no acute changes. EKG: Sinus mechanism, left axis deviation, left ventricle hypertrophy and nonspecific ST-T wave changes Impression: 1. Chest discomfort of unclear etiology, no clear evidence of acute coronary syndrome 2. Elevated d-dimer with no evidence of pulmonary embolism 3. Known history of CAD, status post stenting of the LAD and left circumflex [place] [address] Avendaño 4. History of hypertension 5. Chronic kidney disease 6. Hyperlipidemia 7. History of diabetes 8. Prior history of stroke Plan: 1. Stop nifedipine could be contributing to the peripheral edema and increase hydralazine 2. Obtain an echocardiogram with Doppler 3. Serial cardiac enzymes 4. Follow renal functions 5. Depending on his progress he may require a myocardial perfusion imaging to further assess his status although the patient is a high risk for coronary angiography in view of the baseline renal failure. Thank you for this consult we will follow with you Past Medical History Past Medical History: Coronary Artery Disease (CAD), CVA/TIA, Diabetes Mellitus, GERD/Reflux, Hyperlipidemia, Hypertension, Myocardial Infarction ([place]), Renal Disease, Rheumatoid Arthritis ([place]) Additional Past Medical History / Comment(s): stroke apr 2017, migranes, diabetic neuropathy arms and legs, stage 3 kidney failure, PANCREATITIS, LEGALLY BLIND, enlarged prostate, trouble urinating Last Myocardial Infarction Date:: 2014 History of Any Multi-Drug Resistant Organisms: None Reported Past Surgical History: Cholecystectomy, Heart Catheterization With Stent, Heart Catheterization With Stent Additional Past Surgical History / Comment(s): Prostrate surgery. HIATAL HERNIA REPAIR -January Past Anesthesia/Blood Transfusion Reactions: No Reported Reaction Additional Past Anesthesia/Blood Transfusion Reaction / Comment(s): never had anethesia Date of Last Stent Placement:: 2017 Past Psychological History: Anxiety, Depression Additional Psychological History / Comment(s): Pt resides with his spouse. He uses a quad cane or walker to ambulate. He is legally blind. He reads minimally with magnifying glass and signs his name only now. His spouse drives him to [employer]. Smoking Status: Never smoker Past Alcohol Use History: None Reported Past Drug Use History: None Reported - Past Family History Mother Family Medical History: CVA/TIA, Diabetes Mellitus, Hypertension Additional Family Medical History / Comment(s): Parkinson's Mother Father Family Medical History: CVA/TIA, Diabetes Mellitus, Myocardial Infarction ([place]) Additional Family Medical History / Comment(s): Father of a [place] in his 50s. Medications and Allergies Home Medications Medication Instructions Recorded Confirmed Type Pantoprazole [Protonix] 40 mg PO BID 11/05/17 02/23/23 History Tamsulosin [Flomax] 0.8 mg PO HS 11/05/17 02/23/23 History Citalopram Hydrobromide [CeleXA] 20 mg PO DAILY 12/12/18 02/23/23 History allopurinoL [Zyloprim] 100 mg PO DAILY 04/05/19 02/23/23 History Clopidogrel Bisulfate [Plavix] 75 mg PO HS 04/06/19 02/23/23 History Glimepiride [Amaryl] 4 mg PO BID 09/07/19 02/23/23 History Atorvastatin [Lipitor] 80 mg PO HS 12/30/19 02/23/23 History Isosorbide Mononitrate ER [Imdur] 60 mg PO DAILY 12/30/19 02/23/23 History Citalopram Hydrobromide [CeleXA] 40 mg PO DAILY 06/29/20 02/23/23 History Furosemide [Lasix] 20 mg PO DAILY 06/29/20 02/23/23 History Loratadine [Claritin] 10 mg PO DAILY 01/21/21 02/23/23 History Gabapentin 600 mg PO BID 02/28/22 02/23/23 History Aspirin [Ragan Aspirin EC] 81 mg PO DAILY #14 tab 06/20/22 02/23/23 Rx Lurasidone [Latuda] 40 mg PO HS 06/20/22 02/23/23 History Ondansetron Odt [Zofran ODT] 4 mg PO BID PRN 06/20/22 02/23/23 History Triamcinolone 0.1% Cream [Kenalog 1 applic TOPICAL BID PRN 06/20/22 02/23/23 History 0.1% Cream] sitaGLIPtin [Januvia] 50 mg PO DAILY 06/20/22 02/23/23 History Acetaminophen-Codeine 300-30mg 1 tab PO BID PRN 07/18/22 02/23/23 History [Tylenol w/codeine #3] Darbepoetin Omari [Aranesp] 60 mcg SQ Q14D 01/30/23 02/23/23 History Docusate [Colace] 100 mg PO BID 01/30/23 02/23/23 History NIFEdipine XL [Procardia XL] 90 mg PO DAILY 30 Days #30 tab 02/06/23 02/23/23 Rx carvediloL [Coreg*] 25 mg PO BID-W/MEALS #30 tab 02/06/23 02/23/23 Rx hydrALAZINE HCL [Apresoline] 25 mg PO TID #90 tab 02/06/23 02/23/23 Rx cloNIDine 0.1 MG/24HR PATCH 1 patch TRANSDERM HERNANDEZ 02/23/23 02/23/23 History [Catapres-TTS] Allergies Allergy/AdvReac Type Severity Reaction Status Date / Time Iodinated Contrast Media AdvReac Nausea & Verified 02/23/23 10:36 [Iodinated Contrast- Oral Vomiting and IV Dye] sucralfate AdvReac Nausea & Verified 02/23/23 10:36 Vomiting Physical Exam Vitals: Vital Signs Temp Pulse Pulse Resp BP BP Pulse Ox 02/23/23 10:41 97.6 F 56 L 18 145/67 97 02/23/23 10:05 97.2 F L 56 L 18 129/63 94 L 02/23/23 07:36 61 18 135/73 99 02/23/23 06:43 97.0 F L 79 19 148/77 Intake and Output 02/22/23 02/23/23 02/23/23 22:59 06:59 14:59 Intake Total 52.98 Balance 52.98 Intake: Intake, IV Titration 52.98 Amount Heparin Sod,Pork in 0.45% 52.98 NaCl 25,000 unit In 0.45 % NaCl 1 250ml.bag @ 18 UNITS/KG/HR 16.819 mls/hr IV .[id number] [facility] Rx#: [id number] Other: Weight 93.44 kg 93.44 kg Results 02/23/23 11:32 02/23/23 06:53 Cardiac Enzymes 02/23/23 02/23/23 Range/Units 06:53 06:53 AST 28 (17-59) U/L Troponin I <0.012 (0.000-0.034) ng/mL Coagulation 02/23/23 02/23/23 Range/Units 06:53 11:32 PT 10.2 10.9 (9.0-12.0) sec APTT 25.5 >200.0 H* (22.0-30.0) sec CBC 02/23/23 02/23/23 Range/Units 06:53 11:32 WBC 7.2 6.0 (3.8-10.6) k/uL RBC 3.19 L 3.12 L (4.30-5.90) m/uL Hgb 9.3 L 9.2 L (13.0-17.5) gm/dL Hct 27.8 L 27.8 L (39.0-53.0) % Plt Count 114 L 101 L (150-450) k/uL Comprehensive Metabolic Panel 02/23/23 Range/Units 06:53 Sodium 139 (137-145) mmol/L Potassium 3.6 (3.5-5.1) mmol/L Chloride 111 H (98-107) mmol/L Carbon Dioxide 21 L (22-30) mmol/L BUN 37 H (9-20) mg/dL Creatinine 3.49 H (0.66-1.25) mg/dL Glucose 154 H (74-99) mg/dL Calcium 7.4 L (8.4-10.2) mg/dL AST 28 (17-59) U/L ALT 20 (4-49) U/L Alkaline Phosphatase 125 (38-126) U/L Total Protein 5.6 L (6.3-8.2) g/dL Albumin 3.2 L (3.5-5.0) g/dL Current Medications Generic Name Dose Route Start Last Admin Trade Name Freq PRN Reason Stop Dose Admin Acetaminophen 650 mg 02/23/23 07:48 Acetaminophen Tab 325 Mg Tab PO Q6HR PRN Mild Pain or Fever > 100.5 Acetaminophen/Codeine Phosphate 1 each 02/23/23 13:45 Acetaminophen-Codeine 300-30mg Tab PO BID PRN Pain Allopurinol 100 mg 02/23/23 13:45 Allopurinol 100 Mg Tab PO DAILY [facility] Aspirin 81 mg 02/23/23 13:45 Aspirin 81 Mg PO DAILY [facility] Atorvastatin Calcium 80 mg 02/23/23 21:00 Atorvastatin 80 Mg Tab PO HS [facility] Carvedilol 25 mg 02/23/23 17:30 Carvedilol 12.5 Mg Tab PO BID-W/MEALS [facility] Citalopram Hydrobromide 20 mg 02/24/23 09:00 Citalopram Hydrobromide 20 Mg Tab PO DAILY [facility] Citalopram Hydrobromide 40 mg 02/24/23 09:00 Citalopram Hydrobromide 20 Mg Tab PO DAILY [facility] Clopidogrel Bisulfate 75 mg 02/23/23 21:00 Clopidogrel 75 Mg Tab PO HS [facility] Dextrose/Water 25 ml 02/23/23 13:47 Dextrose 50% Syringe 50 Ml IVP PER PROTOCOL PRN Hypoglycemia Protocol Dextrose/Water 50 ml 02/23/23 13:47 Dextrose 50% Syringe 50 Ml IVP PER PROTOCOL PRN Hypoglycemia Protocol Gabapentin 600 mg 02/23/23 21:00 Gabapentin 300 Mg Cap PO BID [facility] Heparin Sodium (Porcine) 0 unit 02/23/23 07:39 Heparin Sodium 1,000 Un/Ml (10ml Vl) IV PER PROTOCOL PRN Low PTT Protocol Insulin Aspart 0 unit 02/23/23 17:30 Insulin Aspart (Novolog) 100 Unit/Ml Vial SQ ACHS [facility] Protocol Isosorbide Mononitrate 60 mg 02/24/23 09:00 Isosorbide Mononitrate Er 60 Mg Tab.Er.24h PO DAILY [facility] Loratadine 10 mg 02/23/23 14:00 Loratadine 10 Mg Tab PO DAILY [facility] Lurasidone HCl 40 mg 02/23/23 21:00 Lurasidone 40 Mg Tab PO HS [facility] Morphine Sulfate 4 mg 02/23/23 07:48 Morphine Sulfate 4 Mg/Ml Syringe IV Q4HR PRN Severe Pain (Scale 7 to 10) Naloxone HCl 0.2 mg 02/23/23 07:48 Naloxone 0.4 Mg/Ml 1 Ml Vial IV Q2M PRN Opioid Reversal Ondansetron HCl 4 mg 02/23/23 07:48 02/23/23 08:10 Ondansetron 4 Mg/2 Ml Vial IVP 4 mg Q8HR PRN Administration Nausea And Vomiting Pantoprazole Sodium 40 mg 02/23/23 17:30 Pantoprazole 40 Mg Tablet PO AC-BID [facility] Tamsulosin HCl 0.8 mg 02/23/23 21:00 Tamsulosin 0.4 Mg Cap.Er.24h PO HS [facility] Tramadol HCl 50 mg 02/23/23 07:48 02/23/23 11:19 Tramadol 50 Mg Tab PO 50 mg Q6H PRN Administration Moderate Pain (Scale 4 to 6) Intake and Output 02/22/23 02/23/23 02/23/23 22:59 06:59 14:59 Intake Total 52.98 Balance 52.98 Intake: Intake, IV Titration 52.98 Amount Heparin Sod,Pork in 0.45% 52.98 NaCl 25,000 unit In 0.45 % NaCl 1 250ml.bag @ 18 UNITS/KG/HR 16.819 mls/hr IV .[id number] [facility] Rx#: [id number] Other: Weight 93.44 kg 93.44 kg Patient Weight 02/24/23 06:59 Weight 93.44 kg 02/23/23 11:32 02/23/23 06:53
[2023-02-23] MEDS: LORATADINE 10 MG TAB PO SCH (15:13)
[2023-02-23] MEDS: ASPIRIN 81 MG PO SCH (15:13)
[2023-02-23] MEDS: allopurinoL 100 MG TAB PO SCH (15:13)
[2023-02-23] MEDS ORDERED: hydrALAZINE HCL 25 MG TAB PO SCH (16:00)
[2023-02-23 16:37] LABS: Glucose,Whole Blood 111 mg/dL (70-110)
[2023-02-23] MEDS: PANTOPRAZOLE 40 MG TABLET PO SCH (17:40)
[2023-02-23] MEDS: hydrALAZINE HCL 25 MG TAB PO SCH ×2 (17:40→20:13)
[2023-02-23] MEDS: carvediloL 12.5 MG TAB PO SCH (17:40)
[2023-02-23] MEDS: INSULIN ASPART (NovoLOG) 100 UNIT/ML VIAL SQ SCH ×2 (17:49→21:43)
[2023-02-23] MEDS: GABAPENTIN 300 MG CAP PO SCH (20:13)
[2023-02-23] MEDS: FUROSEMIDE 10 MG/ML 4 ML VIAL IV SCH (20:14)
[2023-02-23 20:40] LABS: Glucose,Whole Blood 146 mg/dL (70-110)
[2023-02-23] MEDS ORDERED: ATORVASTATIN 80 MG TAB PO SCH (21:00)
[2023-02-23] MEDS ORDERED: LURASIDONE 40 MG TAB PO SCH (21:00)
[2023-02-23] MEDS ORDERED: CLOPIDOGREL 75 MG TAB PO SCH (21:00)
[2023-02-23] MEDS ORDERED: TAMSULOSIN 0.4 MG CAP.ER.24H PO SCH (21:00)
[2023-02-24 06:30] LABS: Glucose,Whole Blood 96 mg/dL (70-110)
[2023-02-24] MEDS: INSULIN ASPART (NovoLOG) 100 UNIT/ML VIAL SQ SCH ×2 (06:32→12:11)
[2023-02-24] MEDS: carvediloL 12.5 MG TAB PO SCH (06:35)
[2023-02-24] MEDS: PANTOPRAZOLE 40 MG TABLET PO SCH (06:35)
[2023-02-24 08:13] LABS: Basophils % (A) 0 %; Eosinophils # (A) 0.1 k/uL (0-0.7); Eosinophils % (A) 2 %; HCT 26.3 % (39.0-53.0); HGB 8.7 gm/dL (13.0-17.5); Hypochromasia Slight; Lymphocytes # (A) 1.1 k/uL (1.0-4.8); Lymphocytes % (A) 16 %; MCH 29.1 pg (25.0-35.0); MCHC 32.9 g/dL (31.0-37.0); MCV 88.5 fL (80.0-100.0); Mean Platelet Volume 7.7; Monocytes # (A) 0.5 k/uL (0-1.0); Monocytes % (A) 7 %; Neutrophils # (A) 4.8 k/uL (1.3-7.7); Neutrophils % (A) 73 %; Platelet Count 101 k/uL (150-450); RBC 2.97 m/uL (4.30-5.90); RDW 14.9 % (11.5-15.5); WBC 6.6 k/uL (3.8-10.6)
[2023-02-24 08:28] LABS: African American GFR (CKD) 23 (>60 ml/min/1.73 sqM); Anion Gap 5 mmol/L; Blood Urea Nitrogen 33 mg/dL (9-20); Calcium 7.2 mg/dL (8.4-10.2); Carbon Dioxide 23 mmol/L (22-30); Chloride 111 mmol/L (98-107); Glucose 98 mg/dL (74-99); Non-African American GFR(CKD) 20 (>60 ml/min/1.73 sqM); Sodium 139 mmol/L (137-145)
[2023-02-24] MEDS ORDERED: FUROSEMIDE 20 MG TAB PO SCH (09:00)
[2023-02-24] MEDS ORDERED: ISOSORBIDE MONONITRATE ER 60 MG TAB.ER.24H PO SCH (09:00)
[2023-02-24] MEDS ORDERED: CITALOPRAM HYDROBROMIDE 20 MG TAB PO SCH ×2 (09:00)
[2023-02-24] MEDS: allopurinoL 100 MG TAB PO SCH (09:27)
[2023-02-24] MEDS: LORATADINE 10 MG TAB PO SCH (09:28)
[2023-02-24] MEDS: GABAPENTIN 300 MG CAP PO SCH (09:28)
[2023-02-24] MEDS: ASPIRIN 81 MG PO SCH (09:28)
[2023-02-24] MEDS: hydrALAZINE HCL 25 MG TAB PO SCH (09:28)
[2023-02-24] MEDS: FUROSEMIDE 10 MG/ML 4 ML VIAL IV SCH (09:29)
[2023-02-24 11:17] VITALS: BP 138/68; PULSE 62; RESP 16; TEMP 98.1
[2023-02-24 11:27] LABS: Glucose,Whole Blood 175 mg/dL (70-110)
--- NOTE | 2023-02-24 13:23 | P.DS ---
Providers Date of admission: 02/23/23 09:38 Expected date of discharge: 02/24/23 Attending physician: Olaf Myers MD Consults: 02/23/23 07:48 Consult Physician Stat Consulting Provider: Guerrero Avendaño Consult Reason/Comments: Chest pain Do you want consulting provider notified?: Yes Primary care physician: Tyler Newton [facility] Course: Discharge diagnoses; Chest pain Hypertension Hyperlipidemia Depression Acute on chronic kidney disease Pds-bjpeaof-uhgrgredr diabetes mellitus History of coronary artery disease History of CVA Anemia of chronic disease Hospital course; patient is a 57-year-old gentleman with past medical history significant for hypertension, diabetes mellitus who presented to the ER because of chest pain. Patient stated that he was waken up from sleep because of chest pain that was central in location, sharp, nonradiating. There was no aggravating or relieving factors associated with this chest pain. Denies any shortness of breath. Patient has been complaining of swelling of feet. Denies orthopnea or PND. Because of chest pain, patient came to the ER Initial lab work done in the ER showed WBC 7.2, hemoglobin 9.3, platelet count 114, sodium 139, potassium 3.6, BUN 37, creatinine 3.49 troponin 0.012 proBNP 2570 EKG done in the ER showed no ST segment changes, no T-wave inversions seen. Chest x-ray done in the ER showed chronic changes without acute pulmonary process Patient d-dimer was elevated, patient was started on heparin by ER and VQ scan and ultrasound of lower extremities were ordered. Patient admitted to medicine service 02/24. Patient seen and examined. Cardiology eval the patient, recommended discontinuing nifedipine, increasing dose of hydralazine to 50 mg 3 times daily. Cardiology cleared The patient for discharge PHYSICAL EXAMINATION: GENERAL: The patient is alert and oriented x3, not in any acute distress. Well developed, well nourished. HEENT: Pupils are round and equally reacting to light. EOMI. No scleral icterus. No conjunctival pallor. Normocephalic, atraumatic. No pharyngeal erythema. No t hyromegaly. CARDIOVASCULAR: S1 and S2 present. No murmurs, rubs, or gallops. PULMONARY: Chest is clear to auscultation, no wheezing or crackles. ABDOMEN: Soft, nontender, nondistended, normoactive bowel sounds. No palpable organomegaly. MUSCULOSKELETAL: No joint swelling or deformity. EXTREMITIES: No cyanosis, clubbing, or pedal edema. NEUROLOGICAL: Gross neurological examination did not reveal any focal deficits. SKIN: No rashes. Dictation was produced using [employer] dictation software. please excuse any grammatical, word or spelling errors. Patient Condition at Discharge: Stable Plan - Discharge Summary Discharge Rx Participant: Yes New Discharge Prescriptions: New hydrALAZINE HCL [Apresoline] 50 mg PO TID #90 tab Continue Pantoprazole [Protonix] 40 mg PO BID Tamsulosin [Flomax] 0.8 mg PO HS Citalopram Hydrobromide [CeleXA] 20 mg PO DAILY allopurinoL [Zyloprim] 100 mg PO DAILY Clopidogrel Bisulfate [Plavix] 75 mg PO HS Glimepiride [Amaryl] 4 mg PO BID Isosorbide Mononitrate ER [Imdur] 60 mg PO DAILY Atorvastatin [Lipitor] 80 mg PO HS Furosemide [Lasix] 20 mg PO DAILY Citalopram Hydrobromide [CeleXA] 40 mg PO DAILY Triamcinolone 0.1% Cream [Kenalog 0.1% Cream] 1 applic TOPICAL BID PRN PRN Reason: Skin Irritation sitaGLIPtin [Januvia] 50 mg PO DAILY Acetaminophen-Codeine 300-30mg [Tylenol w/codeine #3] 1 tab PO BID PRN PRN Reason: Pain Darbepoetin Omari [Aranesp] 60 mcg SQ Q14D carvediloL [Coreg*] 25 mg PO BID-W/MEALS #30 tab Loratadine [Claritin] 10 mg PO DAILY Gabapentin 600 mg PO BID Lurasidone [Latuda] 40 mg PO HS Ondansetron Odt [Zofran ODT] 4 mg PO BID PRN PRN Reason: Nausea Aspirin [[place] Aspirin EC] 81 mg PO DAILY #14 tab Docusate [Colace] 100 mg PO BID cloNIDine 0.1 MG/24HR PATCH [Catapres-TTS] 1 patch TRANSDERM HERNANDEZ Discontinued NIFEdipine XL [Procardia XL] 90 mg PO DAILY 30 Days #30 tab hydrALAZINE HCL [Apresoline] 25 mg PO TID #90 tab Discharge Medication List Pantoprazole [Protonix] 40 mg PO BID 11/05/17 [History] Tamsulosin [Flomax] 0.8 mg PO HS 11/05/17 [History] Citalopram Hydrobromide [CeleXA] 20 mg PO DAILY 12/12/18 [History] allopurinoL [Zyloprim] 100 mg PO DAILY 04/05/19 [History] Clopidogrel Bisulfate [Plavix] 75 mg PO HS 04/06/19 [History] Glimepiride [Amaryl] 4 mg PO BID 09/07/19 [History] Atorvastatin [Lipitor] 80 mg PO HS 12/30/19 [History] Isosorbide Mononitrate ER [Imdur] 60 mg PO DAILY 12/30/19 [History] Citalopram Hydrobromide [CeleXA] 40 mg PO DAILY 06/29/20 [History] Furosemide [Lasix] 20 mg PO DAILY 06/29/20 [History] Loratadine [Claritin] 10 mg PO DAILY 01/21/21 [History] Gabapentin 600 mg PO BID 02/28/22 [History] Aspirin [[place] Aspirin EC] 81 mg PO DAILY #14 tab 06/20/22 [Rx] Lurasidone [Latuda] 40 mg PO HS 06/20/22 [History] Ondansetron Odt [Zofran ODT] 4 mg PO BID PRN 06/20/22 [History] Triamcinolone 0.1% Cream [Kenalog 0.1% Cream] 1 applic TOPICAL BID PRN 06/20/22 [History] sitaGLIPtin [Januvia] 50 mg PO DAILY 06/20/22 [History] Acetaminophen-Codeine 300-30mg [Tylenol w/codeine #3] 1 tab PO BID PRN 07/18/22 [History] Darbepoetin Omari [Aranesp] 60 mcg SQ Q14D 01/30/23 [History] Docusate [Colace] 100 mg PO BID 01/30/23 [History] carvediloL [Coreg*] 25 mg PO BID-W/MEALS #30 tab 02/06/23 [Rx] cloNIDine 0.1 MG/24HR PATCH [Catapres-TTS] 1 patch TRANSDERM HERNANDEZ 02/23/23 [History] hydrALAZINE HCL [Apresoline] 50 mg PO TID #90 tab 02/24/23 [Rx] Follow up Appointment(s)/Referral(s): Lamar Scott MD [Primary Care Provider] - 1-2 days Emir Louis MD [STAFF PHYSICIAN] - 1 Week Discharge Disposition: HOME SELF-CARE
--- NOTE | 2023-02-24 13:57 | P.PN ---
Subjective HISTORY OF PRESENT ILLNESS: The patient is a 57-year-old male with a history of stroke prior history of stenting of the LAD and left circumflex with occluded RCA [place] [address] Avendaño who presents with lower extremities weakness and chest discomfort. He has been having discomfort on and off for the last week, not activity related. He has dyspnea on exertion, occasional dizziness on palpitation but no syncope. He has noted progression of his peripheral edema. He has a known history of chronic kidney disease. He has no clear PND or orthopnea. He is pain-free at the time of my evaluation. In the past his systolic function was normal. In the emergency room he was noted to have an elevated d-dimer and subsequently underwent a ventilation/perfusion scan that showed no evidence of pulmonary embolism and his duplex scan of the lower extremities showed no evidence of DVT. His initial troponin was normal and he had elevation of the NT proBNP. According to the patient this is the first time he has discomfort since his stenting in 2018. Physical risk factors are positive for hypertension, diabetes and hyperlipidemia, he is a nonsmoker. Medications: Aspirin, Januvia 50 mg daily, Coreg 25 mg twice a day, Procardia 90 mg daily, isosorbide 60 mg daily, Amaryl, Lasix 20 mg daily, Celexa, Lipitor 80 mg daily, Plavix 75 mg daily 02/24/2023 Patient examined this morning at the bedside. Patient denies shortness of breath. He reports having chest pain this morning that he states is worse with deep inspiration. He remains on IV Lasix. He reports improvement in his lower extremities edema. PHYSICAL EXAM: VITAL SIGNS: Reviewed. GENERAL: Well-developed in no acute distress. NECK: Supple. No JVD or thyromegaly LUNGS: Respirations even and unlabored. Lungs essentially clear to auscultation bilaterally. HEART: Regular rate and rhythm. S1 and S2 heard. Systolic murmur noted. EXTREMITIES: Normal range of motion. No clubbing or cyanosis. Peripheral pulse s intact. Trace lower extremity edema, left worse than right. ASSESSMENT: 1. Chest discomfort of unclear etiology, no clear evidence of acute coronary syndrome 2. Elevated d-dimer with no evidence of pulmonary embolism 3. Known history of CAD, status post stenting of the LAD and left circumflex [place] [address] Avendaño 4. History of hypertension 5. Chronic kidney disease 6. Hyperlipidemia 7. History of diabetes 8. Prior history of stroke PLAN: Discontinue IV Lasix. Begin oral Lasix 40 mg daily Continue additional cardiac medications Patient is currently stable from a cardiac standpoint. If patient is still hospitalized tomorrow, will consider Lexiscan stress test. Otherwise this may be performed on an outpatient basis Further recommendations pending patient course Nurse practitioner note has been reviewed by physician. Signing provider agrees with the documented findings, assessment, and plan of care. Objective - Vital Signs Vital signs: Vital Signs Temp 98.1 F 02/24/23 11:15 Pulse 62 02/24/23 11:15 Resp 16 02/24/23 11:15 BP 138/68 02/24/23 11:15 Pulse Ox 93 L 02/24/23 11:15 FiO2 21 02/24/23 08:01 Intake & Output 02/23/23 02/24/23 02/24/23 18:59 06:59 18:59 Intake Total 312.004 242 680 Output Total 875 1700 800 Balance -562.996 -1458 -120 Weight 93.44 kg 77.5 kg Intake: IV 10 20 10 Invasive Line 2 10 20 10 Intake, IV Titration 74.004 Amount Heparin Sod,Pork in 0.45% 74.004 NaCl 25,000 unit In 0.45 % NaCl 1 250ml.bag @ 18 UNITS/KG/HR 16.819 mls/hr IV .[id number] [facility] Rx#: [id number] Oral 228 222 670 Output: Urine 875 1700 800 Coude 875 Other: Voiding Method Toilet Indwelling Catheter Indwelling Catheter Urinal - Labs CBC & Chem 7: 02/24/23 07:43 02/24/23 07:43 Labs: Abnormal Lab Results - Last 24 Hours (Table) 02/23/23 02/23/23 02/23/23 Range/Units 14:46 16:34 20:38 RBC (4.30-5.90) m/uL Hgb (13.0-17.5) gm/dL Hct (39.0-53.0) % Plt Count (150-450) k/uL APTT 60.4 H (22.0-30.0) sec Chloride (98-107) mmol/L BUN (9-20) mg/dL Creatinine (0.66-1.25) mg/dL POC Glucose (mg/dL) 111 H 146 H (70-110) mg/dL Hemoglobin A1c (<=6.0) % Calcium (8.4-10.2) mg/dL 02/24/23 02/24/23 02/24/23 Range/Units 07:43 07:43 07:43 RBC 2.97 L (4.30-5.90) m/uL Hgb 8.7 L (13.0-17.5) gm/dL Hct 26.3 L (39.0-53.0) % Plt Count 101 L (150-450) k/uL APTT (22.0-30.0) sec Chloride 111 H (98-107) mmol/L BUN 33 H (9-20) mg/dL Creatinine 3.35 H (0.66-1.25) mg/dL POC Glucose (mg/dL) (70-110) mg/dL Hemoglobin A1c 6.9 H (<=6.0) % Calcium 7.2 L (8.4-10.2) mg/dL 02/24/23 Range/Units 11:24 RBC (4.30-5.90) m/uL Hgb (13.0-17.5) gm/dL Hct (39.0-53.0) % Plt Count (150-450) k/uL APTT (22.0-30.0) sec Chloride (98-107) mmol/L BUN (9-20) mg/dL Creatinine (0.66-1.25) mg/dL POC Glucose (mg/dL) 175 H (70-110) mg/dL Hemoglobin A1c (<=6.0) % Calcium (8.4-10.2) mg/dL
--- NOTE | 2023-02-24 17:29 | CA ---
Transthoracic Echo Report Name: Kashmir Tinajero Age: 57 Gender: M : 1965 Exam Date: 02/24/2023 08:48 Exam Location: [facility] Ht (in): 69 Wt (lb): 206 Ordering Physician: Tico Angeles MD ([id number]) Attending/Referring Phys: Mental Retardation Nurse Wale Otoole Procedure CPT: Indications: CAD Cardiac Hx: Technical Quality: Fair Contrast 1: Total Dose (mL): Contrast 2: Total Dose (mL): MEASUREMENTS (Male / Female) Normal Values 2D ECHO LV Diastolic Diameter PLAX 4.7 cm 4.2 - 5.9 / 3.9 - 5.3 cm LV Systolic Diameter PLAX 3.2 cm IVS Diastolic Thickness 1.1 cm 0.6 - 1.0 / 0.6 - 0.9 cm LVPW Diastolic Thickness 1.5 cm 0.6 - 1.0 / 0.6 - 0.9 cm LV Relative Wall Thickness 0.6 RV Internal Dim ED PLAX 3.5 cm LVOT Diameter 2.1 cm Aortic Root Diameter 3.2 cm LA Systolic Diameter LX 2.8 cm 3.0 - 4.0 / 2.7 - 3.8 cm LV Diastolic Volume MOD BP 85.5 cm??? 67 - 155 / 56 - 104 cm??? LV Systolic Volume MOD BP 32.1 cm??? - / 19 - 49 cm??? LV Ejection Fraction MOD BP 62.4 % >= 55 % LV Cardiac Index MOD BP 1582.0 cm???/min???m??? LV Diastolic Volume MOD 4C 99.5 cm??? LV Systolic Volume MOD 4C 36.3 cm??? LV Ejection Fraction MOD 4C 63.5 % LV Cardiac Index MOD 4C 1874.7 cm???/min???m??? LV Diastolic Length 4C 8.1 cm LV Systolic Length 4C 6.8 cm LV Diastolic Volume MOD 2C 68.1 cm??? LV Systolic Volume MOD 2C 27.1 cm??? LV Ejection Fraction MOD 2C 60.2 % LV Cardiac Index MOD 2C 1216.0 cm???/min???m??? LV Diastolic Length 2C 7.4 cm LV Systolic Length 2C 6.4 cm LA Volume 79.4 cm??? - 58 / 22 - 52 cm??? DOPPLER AV Peak Velocity 226.4 cm/s AV Peak Gradient 20.5 mmHg AV Mean Velocity 165.9 cm/s AV Mean Gradient 11.9 mmHg AV Velocity Time Integral 55.7 cm LVOT Peak Velocity 121.4 cm/s LVOT Peak Gradient 5.9 mmHg LVOT Velocity Time Integral 25.5 cm LVOT Stroke Volume 84.5 cm??? LVOT Stroke Volume Index 40.4 ml/m??? LVOT Cardiac Index 2506.2 cm???/min???m??? AV Area Cont Eq vti 1.5 cm??? AV Area Cont Eq pk 1.8 cm??? MV Peak Velocity 120.9 cm/s MV Peak Gradient 5.8 mmHg MV Mean Velocity 62.4 cm/s MV Mean Gradient 1.9 mmHg MV Velocity Time Integral 47.5 cm MR Peak Velocity 384.4 cm/s MR Peak Gradient 59.1 mmHg Mitral E Point Velocity 124.7 cm/s Mitral A Point Velocity 133.8 cm/s Mitral E to A Ratio 0.9 MV Deceleration Time 243.2 ms MV E' Velocity 7.2 cm/s Mitral E to MV E' Ratio 17.3 TR Peak Velocity 257.9 cm/s TR Peak Gradient 26.6 mmHg Right Ventricular Systolic Press 31.7 mmHg PV Peak Velocity 120.7 cm/s PV Peak Gradient 5.8 mmHg FINDINGS Left Ventricle Normal LV size and wall thickness. Left ventricular ejection fraction is estimated at 55-60 %. Right Ventricle Normal right ventricular size. RVSP= 30mmhg. Right Atrium Normal right atrial size. Left Atrium Normal left atrial size. LA volume index= 38ml/m2 Mitral Valve Structurally normal mitral valve. Mild mitral regurgitation Aortic Valve Mild AV sclerosis/calcification. Mid no evidence of regurgitation or stenosis Tricuspid Valve Structurally normal tricuspid valve. Mild TR. Pulmonic Valve Pulmonic valve not well visualized. No pulmonic regurgitation. Pericardium No pericardial effusion Aorta Normal size aortic root CONCLUSIONS Normal LV size and wall thickness. Normal LV systolic function. Estimated LVEF 50% No obvious regional wall motion abnormality No significant chamber size abnormality Mild mitral regurgitation No prior echo to compare with within database Previewed by: Dr Karlo Davis (Electronically Signed) Final Date: 24 February 2023 17:29
[2023-02-25] MEDS ORDERED: FUROSEMIDE 40 MG TAB PO SCH (09:00)
== END 2023-02-24 16:21 | disposition home or self-care (01) ==
LOC: EC 06:42 → 3SCARD 09:38 → INTOOBSV 09:38
PROVIDERS: ADMIT Internal Medicine; ATTEND Internal Medicine
DX: R07.2 Precordial pain (principal); R77.8 Other specified abnormalities of plasma proteins; I25.10 Atherosclerotic heart disease of native coronary artery without angina pectoris; K21.9 Gastro-esophageal reflux disease without esophagitis; E78.5 Hyperlipidemia, unspecified; M06.9 Rheumatoid arthritis, unspecified; E11.40 Type 2 diabetes mellitus with diabetic neuropathy, unspecified; I12.9 Hypertensive chronic kidney disease with stage 1 through stage 4 chronic kidney disease, or unspecified chronic kidney disease; N18.30 Chronic kidney disease, stage 3 unspecified; N40.0 Benign prostatic hyperplasia without lower urinary tract symptoms; E11.22 Type 2 diabetes mellitus with diabetic chronic kidney disease; F32.A Depression, unspecified; F41.9 Anxiety disorder, unspecified; H54.8 Legal blindness, as defined in USA; D63.1 Anemia in chronic kidney disease; I25.2 Old myocardial infarction; Z86.73 Personal history of transient ischemic attack (TIA), and cerebral infarction without residual deficits; Z95.5 Presence of coronary angioplasty implant and graft; Z79.899 Other long term (current) drug therapy; Z79.84 Long term (current) use of oral hypoglycemic drugs; Z79.02 Long term (current) use of antithrombotics/antiplatelets; Z79.82 Long term (current) use of aspirin
CPT/HCPCS: 96376; 96372; 96375 ×2; 96374; 99285; 36415; 94760; 93005; 93306; 85379; 83880; 80053; 80048; 83735; 84484; 85025 ×2; 85610; 85730; 83036; 71046; 93970; 78582; G0378 ×2; A9540; A9567; J2270; J1940; J2405; J1644 ×2

== ENCOUNTER → 2023-02-27 | Outpatient (CLI) | payer MEDICARE | END | disposition home or self-care (01) | LOC: LABWHC1 14:41 | PROVIDERS: ATTEND Internal Medicine Nephrology | DX: Z53.9 Procedure and treatment not carried out, unspecified reason (principal) ==

== ENCOUNTER 2023-03-20 15:18 | Observation (INO) | payer MEDICARE ==
[2023-03-20 17:53] LABS: Basophils % (A) 0 %; Eosinophils # (A) 0.2 k/uL (0-0.7); Eosinophils % (A) 3 %; HCT 24.9 % (39.0-53.0); HGB 8.4 gm/dL (13.0-17.5); Hypochromasia Slight; Lymphocytes # (A) 0.9 k/uL (1.0-4.8); Lymphocytes % (A) 11 %; MCH 29.9 pg (25.0-35.0); MCHC 33.8 g/dL (31.0-37.0); MCV 88.3 fL (80.0-100.0); Mean Platelet Volume 7.4; Monocytes # (A) 0.5 k/uL (0-1.0); Monocytes % (A) 6 %; Neutrophils # (A) 5.9 k/uL (1.3-7.7); Neutrophils % (A) 78 %; Platelet Count 143 k/uL (150-450); Poikilocytosis Slight; RBC 2.82 m/uL (4.30-5.90); WBC 7.6 k/uL (3.8-10.6)
[2023-03-20 18:03] LABS: African American GFR (CKD) 38 (>60 ml/min/1.73 sqM); Anion Gap 4 mmol/L; Blood Urea Nitrogen 20 mg/dL (9-20); Calcium 7.8 mg/dL (8.4-10.2); Carbon Dioxide 31 mmol/L (22-30); Chloride 102 mmol/L (98-107); Glucose 240 mg/dL (74-99); Non-African American GFR(CKD) 33 (>60 ml/min/1.73 sqM); Potassium 4.2 mmol/L (3.5-5.1); Sodium 137 mmol/L (137-145)
[2023-03-20] MEDS ORDERED: DESMOPRESSIN ACETATE 26 MCG in SODIUM CHLORIDE 0.9% 50 ML IVPB ONE (18:09)
[2023-03-20] MEDS ORDERED: carvediloL 12.5 MG TAB PO STA (20:04)
[2023-03-20] MEDS ORDERED: NALOXONE 0.4 MG/ML 1 ML VIAL IV PRN (20:57)
--- NOTE | 2023-03-20 21:00 | ED ---
Recheck HPI - General Chief Complaint: Recheck/Abnormal Lab/Rx Stated Complaint: HTN/port leaking Time Seen by Provider: 03/20/23 16:10 Source: EMS Mode of arrival: EMS Limitations: no limitations - History of Present Illness Initial Comments: 57-year-old male presenting with chief complaint of dialysis catheter bleeding around the site. Patient had dialysis catheter placed on Thursday by Dr. Bright. He he received dialysis on Thursday, Thursday, Thursday, and yesterday. Patient states that ever since placement he has had continuous weeping of blood around the insertion site. Patient is on Plavix. No injury or trauma. He states that he has had continued dressing changes but the bleeding persists. No lightheadedness or dizziness. - Related Data Home Medications Medication Instructions Recorded Confirmed Pantoprazole [Protonix] 40 mg PO BID 11/05/17 03/20/23 Tamsulosin [Flomax] 0.8 mg PO HS 11/05/17 03/20/23 Citalopram Hydrobromide [CeleXA] 20 mg PO DAILY 12/12/18 03/20/23 allopurinoL [Zyloprim] 100 mg PO DAILY 04/05/19 03/20/23 Atorvastatin [Lipitor] 80 mg PO HS 12/30/19 03/20/23 Isosorbide Mononitrate ER [Imdur] 60 mg PO DAILY 12/30/19 03/20/23 Citalopram Hydrobromide [CeleXA] 40 mg PO DAILY 06/29/20 03/20/23 Loratadine [Claritin] 10 mg PO DAILY 01/21/21 03/20/23 Gabapentin 600 mg PO BID 02/28/22 03/20/23 Lurasidone [Latuda] 40 mg PO HS 06/20/22 03/20/23 Ondansetron Odt [Zofran ODT] 4 mg PO BID PRN 06/20/22 03/20/23 Triamcinolone 0.1% Cream [Kenalog 1 applic TOPICAL BID PRN 06/20/22 03/20/23 0.1% Cream] Acetaminophen-Codeine 300-30mg 1 tab PO BID PRN 07/18/22 03/20/23 [Tylenol w/codeine #3] Darbepoetin Omari [Aranesp] 60 mcg SQ Q14D 01/30/23 03/20/23 Docusate [Colace] 100 mg PO BID 01/30/23 03/20/23 Amoxic-Pot Clav 875-125Mg 1 tab PO DIRECTED 03/20/23 03/20/23 [Augmentin 875-125] Furosemide [Lasix] 40 mg PO DAILY 03/20/23 03/20/23 amLODIPine [Norvasc] 10 mg PO ONCE 03/20/23 03/20/23 Previous Rx's Medication Instructions Recorded Aspirin [[place] Aspirin EC] 81 mg PO DAILY #30 tab 03/18/23 Calcium Acetate [PhosLo] 667 mg PO TID-W/MEALS #90 tab 03/18/23 Clopidogrel [Plavix] 75 mg PO HS #30 tab 03/18/23 INSULIN ASPART (NovoLOG) [NovoLOG 2 unit SQ AC-TID #10 ml 03/18/23 (formulary)] Insulin Detemir (Levemir) [Levemir] 10 unit SQ HS #10 ml 03/18/23 NIFEdipine XL [Procardia XL] 30 mg PO DAILY 30 Days #30 tab 03/18/23 hydrALAZINE HCL 50 mg PO TID #90 tab 03/18/23 Allergies Allergy/AdvReac Type Severity Reaction Status Date / Time Iodinated Contrast Media AdvReac Nausea & Verified 03/20/23 21:47 [Iodinated Contrast- Oral Vomiting and IV Dye] sucralfate AdvReac Nausea & Verified 03/20/23 21:47 Vomiting Review of Systems ROS Statement: Those systems with pertinent positive or pertinent negative responses have been documented in the HPI. ROS Other: All systems not noted in ROS Statement are negative. Past Medical History Past Medical History: Coronary Artery Disease (CAD), CVA/TIA, Diabetes Mellitus, GERD/Reflux, Hyperlipidemia, Hypertension, Myocardial Infarction ([place]), Renal Disease, Rheumatoid Arthritis (RA) Additional Past Medical History / Comment(s): stroke apr 2017, migranes, diabetic neuropathy arms and legs, stage 3 kidney failure, PANCREATITIS, LEGALLY BLIND, enlarged prostate, trouble urinating Last Myocardial Infarction Date:: 2014 History of Any Multi-Drug Resistant Organisms: None Reported Past Surgical History: Cholecystectomy, Heart Catheterization With Stent, Heart Catheterization With Stent Additional Past Surgical History / Comment(s): Dialysis Port - 03/14/23. Prostrate surgery. HIATAL HERNIA REPAIR -January Past Anesthesia/Blood Transfusion Reactions: No Reported Reaction Additional Past Anesthesia/Blood Transfusion Reaction / Comment(s): never had anethesia Date of Last Stent Placement:: 2017 Past Psychological History: Anxiety, Depression Smoking Status: Never smoker Past Alcohol Use History: None Reported Past Drug Use History: None Reported - Past Family History Mother Family Medical History: CVA/TIA, Diabetes Mellitus, Hypertension Additional Family Medical History / Comment(s): Parkinson's Mother Father Family Medical History: CVA/TIA, Diabetes Mellitus, Myocardial Infarction ([place]) Additional Family Medical History / Comment(s): Father of a [place] in his 50s. General Exam Limitations: no limitations General appearance: alert, in no apparent distress Head exam: Present: atraumatic, normocephalic, normal inspection Eye exam: Present: normal appearance, EOMI Neck exam: Present: normal inspection, full ROM Respiratory exam: Present: normal lung sounds bilaterally. Absent: respiratory distress, wheezes, rales, rhonchi, stridor Cardiovascular Exam: Present: regular rate, normal rhythm, normal heart sounds. Absent: systolic murmur, diastolic murmur, rubs, gallop, clicks Neurological exam: Present: alert, oriented X3, CN II-XII intact Psychiatric exam: Present: normal affect, normal mood Skin exam: Present: other (bleeding around dialysis catheter) Course Vital Signs 03/20/23 03/20/23 03/20/23 15:23 15:25 16:00 Temperature 98.4 F Pulse Rate 60 Respiratory 17 Rate Blood Pressure 169/69 169/69 O2 Sat by Pulse 98 97 97 Oximetry 03/20/23 03/20/23 03/20/23 17:00 18:00 18:31 Temperature 97.9 F Pulse Rate 58 L 62 55 L Respiratory 18 18 18 Rate Blood Pressure 165/73 164/75 165/75 O2 Sat by Pulse 96 95 97 Oximetry 03/20/23 03/20/23 03/20/23 19:00 20:00 21:00 Temperature Pulse Rate 59 L 64 58 L Respiratory 18 18 18 Rate Blood Pressure 168/75 193/85 183/77 O2 Sat by Pulse 96 95 97 Oximetry 03/20/23 03/20/23 22:00 22:30 Temperature 98.6 F Pulse Rate 61 Respiratory 18 Rate Blood Pressure 178/83 O2 Sat by Pulse 96 Oximetry Medical Decision Making - Medical Decision Making Was pt. sent in by a medical professional or institution (RADHA Moya, [employer], urgent care, hospital, or skilled nursing...) When possible be specific @ -No Did you speak to anyone other than the patient for history (EMS, parent, family, police, friend...)? What history was obtained from this source @ -No Did you review nursing and triage notes (agree or disagree)? Why? @ -I reviewed and agree with nursing and triage notes Were old charts reviewed (outside hosp., previous admission, EMS record, old EKG, old radiological studies, urgent care reports/EKG's, skilled nursing records)? Report findings @ -No old charts were reviewed Differential Diagnosis (chest pain, altered mental status, abdominal pain women, abdominal pain men, vaginal bleeding, weakness, fever, dyspnea, syncope, headache, dizziness, GI bleed, back pain, seizure, CVA, palpatations, mental health, musculoskeletal)? @ -not applicable EKG interpreted by me (3pts min.). @ -As above X-rays interpreted by me (1pt min.). @ -None done CT interpreted by me (1pt min.). @ -None done U/S interpreted by me (1pt. min.). @ -None done What testing was considered but not performed or refused? (CT, X-rays, U/S, labs)? Why? @ -None What meds were considered but not given or refused? Why? @ -None Did you discuss the management of the patient with other professionals (professionals i.e. RADHA Moya, [employer], lab, RT, psych nurse, social security assessor, window display designer, teacher, special police officer, bottle caser)? Give summary @ -I spoke with Dr. Bright who advised giving a dose of DDAVP after consulting with nephrology and watching the patient overnight. I spoke with Dr. Dacosta who was agreeable to giving single-dose DDAVP and seeing the patient in the morning. I spoke with Keyur From [facility] hospitalist group who accepted admission Was smoking cessation discussed for >3mins.? @ -No Was critical care preformed (if so, how long)? @ -No Were there social determinants of health that impacted care today? How? (Homelessness, low income, unemployed, alcoholism, drug addiction, transportation, low edu. Level, literacy, decrease access to med. care, longterm, rehab)? @ -No Was there de-escalation of care discussed even if they declined (Discuss DNR or withdrawal of care, Hospice)? DNR status @ -No What co-morbidities impacted this encounter? (DM, HTN, Smoking, COPD, CAD, C ancer, CVA, ARF, Chemo, Hep., AIDS, mental health diagnosis, sleep apnea, morbid obesity)? @ -None Was patient admitted / discharged? Hospital course, mention meds given and route, prescriptions, significant lab abnormalities, going to OR and other pertinent info. @ -57-year-old male presenting with chief complaint of persistent bleeding ar ound his dialysis catheter that was inserted about a week ago. On physical examination there is a small but steady trickling of blood. Pressure dressing is applied. After consulting with Dr. Bright and nephrology patient is given 1 dose of DDAVP. He is admitted for observation. I discussed this case with my attending Dr. Sam. Undiagnosed new problem with uncertain prognosis? @ -No Drug Therapy requiring intensive monitoring for toxicity (Heparin, Nitro, Insulin, Cardizem)? @ -No Were any procedures done? @ -No Diagnosis/symptom? @ -Persistent bleeding around dialysis catheter Acute, or Chronic, or Acute on Chronic? @ -Acute Uncomplicated (without systemic symptoms) or Complicated (systemic symptoms)? @ -complicated Side effects of treatment? @ -No Exacerbation, Progression, or Severe Exacerbation? @ -No Poses a threat to life or bodily function? How? (Chest pain, [place], [place], pneumonia, PE, COPD, DKA, ARF, appy, cholecystitis, CVA, Diverticulitis, Homicidal, S uicidal, threat to staff... and all critical care pts) @ -No - Lab Data Result diagrams: 03/20/23 17:35 03/20/23 17:35 Lab Results 03/20/23 03/20/23 Range/Units 17:35 17:35 WBC 7.6 (3.8-10.6) k/uL RBC 2.82 L (4.30-5.90) m/uL Hgb 8.4 L (13.0-17.5) gm/dL Hct 24.9 L (39.0-53.0) % MCV 88.3 (80.0-100.0) fL MCH 29.9 (25.0-35.0) pg MCHC 33.8 (31.0-37.0) g/dL RDW 15.0 (11.5-15.5) % Plt Count 143 L (150-450) k/uL MPV 7.4 Neutrophils % 78 % Lymphocytes % 11 % Monocytes % 6 % Eosinophils % 3 % Basophils % 0 % Neutrophils # 5.9 (1.3-7.7) k/uL Lymphocytes # 0.9 L (1.0-4.8) k/uL Monocytes # 0.5 (0-1.0) k/uL Eosinophils # 0.2 (0-0.7) k/uL Basophils # 0.0 (0-0.2) k/uL Hypochromasia Slight Poikilocytosis Slight Sodium 137 (137-145) mmol/L Potassium 4.2 (3.5-5.1) mmol/L Chloride 102 (98-107) mmol/L Carbon Dioxide 31 H (22-30) mmol/L Anion Gap 4 mmol/L BUN 20 (9-20) mg/dL Creatinine 2.18 H (0.66-1.25) mg/dL Est GFR (CKD-EPI)AfAm 38 (>60 ml/min/1.73 sqM) Est GFR (CKD-EPI)NonAf 33 (>60 ml/min/1.73 sqM) Glucose 240 H (74-99) mg/dL Calcium 7.8 L (8.4-10.2) mg/dL Disposition Clinical Impression: Bleeding due to dialysis catheter placement Disposition: ADMITTED IP TO THIS HOSP Condition: Fair Time of Disposition: 21:00
[2023-03-20] MEDS ORDERED: DEXTROSE 50% SYRINGE 50 ML IVP PRN ×2 (23:23)
[2023-03-20 23:50] LABS: Glucose,Whole Blood 204 mg/dL (70-110)
[2023-03-21] MEDS: ATORVASTATIN 80 MG TAB PO SCH ×2 (00:02→20:40)
[2023-03-21] MEDS: DOCUSATE 100 MG CAP PO SCH ×3 (00:02→20:40)
[2023-03-21] MEDS: PANTOPRAZOLE 40 MG TABLET PO SCH ×3 (00:02→20:40)
[2023-03-21] MEDS: hydrALAZINE HCL 50 MG TAB PO SCH ×4 (00:02→20:39)
[2023-03-21] MEDS: INSULIN DETEMIR (LEVEMIR) 100 UNIT/ML SYR SQ SCH ×2 (00:02→20:40)
[2023-03-21] MEDS: LURASIDONE 40 MG TAB PO SCH ×2 (00:02→20:39)
[2023-03-21] MEDS: INSULIN ASPART (NovoLOG) 100 UNIT/ML VIAL SQ SCH ×7 (00:16→20:40)
[2023-03-21] MEDS: GABAPENTIN 300 MG CAP PO SCH ×3 (00:16→20:39)
[2023-03-21 06:17] LABS: Glucose,Whole Blood 80 mg/dL (70-110)
[2023-03-21 13:09] LABS: Glucose,Whole Blood 79 mg/dL (70-110)
[2023-03-21] MEDS: CALCIUM ACETATE 667 MG TAB PO SCH ×2 (13:12→17:48)
--- NOTE | 2023-03-21 14:25 | P.HPIM ---
History of Present Illness H&P Date: 03/21/23 History of present illness; 57-year-old gentleman with past medical history significant for coronary artery disease, history of CVA, history of diabetes mellitus, hyperlipidemia, hypertension, chronic kidney disease who was only discharged 2 days ago from the hospital after being admitted in the hospital, patient at that time was being seen by nephrology, cardiology, pulmonology, patient was initiated on dialysis by nephrology and was discharged in stable condition. Patient presented to the ER this admission because of dialysis catheter bleeding , Patient Noticed That There Was Bleeding around the Catheter Site. Patient tried to apply pressure dressings but that did not help the bleeding. Because his persistent bleeding, patient presented to the ER. Aixa ent denies any chest pain. Denies shortness of breath. did not complain of fever or chills. No nausea, vomiting or abdominal pain. Initial lab work done in the ER showed WBC 7.6, hemoglobin 8.4, platelet count 143, sodium 137, potassium 4.2, BUN 20, creatinine 2.18, HbA1c 6.4, calcium 7.8 ER discussed with nephrology and vascular surgery, vascular surgery recommended keeping patient 1 dose of DDAVP and monitoring overnight. Patient admitted to medicine service REVIEW OF SYSTEMS: CONSTITUTIONAL: No fever, no malaise, no fatigue. HEENT: No recent visual problems or hearing problems. Denied any sore throat. CARDIOVASCULAR: No chest pain, orthopnea, PND, no palpitations, no syncope. PULMONARY: No shortness of breath, no cough, no hemoptysis. GASTROINTESTINAL: No diarrhea, no nausea, no vomiting, no abdominal pain. NEUROLOGICAL: No headaches, no weakness, no numbness. HEMATOLOGICAL: Denies any bleeding or petechiae. GENITOURINARY: Denies any burning micturition, frequency, or urgency. MUSCULOSKELETAL/RHEUMATOLOGICAL: Denies any joint pain, swelling, or any muscle pain. ENDOCRINE: Denies any polyuria or polydipsia. The rest of the 14-point review of systems is negative. PHYSICAL EXAMINATION: GENERAL: The patient is alert and oriented x3, not in any acute distress. Well developed, well nourished. HEENT: Pupils are round and equally reacting to light. EOMI. No scleral icterus. No conjunctival pallor. Normocephalic, atraumatic. No pharyngeal erythema. No thyromegaly. CARDIOVASCULAR: S1 and S2 present. No murmurs, rubs, or gallops. PULMONARY: Chest is clear to auscultation, no wheezing or crackles. ABDOMEN: Soft, nontender, nondistended, normoactive bowel sounds. No palpable organomegaly. MUSCULOSKELETAL: No joint swelling or deformity. EXTREMITIES: No cyanosis, clubbing, or pedal edema. NEUROLOGICAL: Gross neurological examination did not reveal any focal deficits. SKIN: No rashes. Assessment and plan Bleeding around the dialysis catheter site End-stage renal disease on dialysis Hypertension with urgency improved and off the nitro gtt currently. Diabetes mellitus type 2 Hyperlipidemia History of CVA Monitor vital signs Monitor CBC Monitor CMP Continue telemetry monitoring Hold aspirin and Plavix for now Monitor blood sugar levels, continue sliding scale insulin Resume home meds Consult vascular surgery for dialysis catheter malfunction Consult nephrology for maintenance dialysis Labs and medication were reviewed.. Continue same treatment. Continue with symptomatic treatment. Resume home medication. Monitor labs and vitals. DVT and GI prophylaxis. Further recommendations as per clinical course of the patient Dictation was produced using [employer] dictation software. please excuse any grammatical, word or spelling errors. Past Medical History Past Medical History: Coronary Artery Disease (CAD), CVA/TIA, Diabetes Mellitus, GERD/Reflux, Hyperlipidemia, Hypertension, Myocardial Infarction ([place]), Renal Disease, Rheumatoid Arthritis ([place]) Additional Past Medical History / Comment(s): stroke apr 2017, migranes, diabetic neuropathy arms and legs, stage 3 kidney failure, PANCREATITIS, LEGALLY BLIND, enlarged prostate, trouble urinating Last Myocardial Infarction Date:: 2014 History of Any Multi-Drug Resistant Organisms: None Reported Past Surgical History: Cholecystectomy, Heart Catheterization With Stent, Heart Catheterization With Stent Additional Past Surgical History / Comment(s): Dialysis Port - 03/14/23. Prostrate surgery. HIATAL HERNIA REPAIR -January Past Anesthesia/Blood Transfusion Reactions: No Reported Reaction Additional Past Anesthesia/Blood Transfusion Reaction / Comment(s): never had anethesia Date of Last Stent Placement:: 2017 Past Psychological History: Anxiety, Depression Smoking Status: Never smoker Past Alcohol Use History: None Reported Past Drug Use History: None Reported - Past Family History Mother Family Medical History: CVA/TIA, Diabetes Mellitus, Hypertension Additional Family Medical History / Comment(s): Parkinson's Mother Father Family Medical History: CVA/TIA, Diabetes Mellitus, Myocardial Infarction ([place]) Additional Family Medical History / Comment(s): Father of a [place] in his 50s. Medications and Allergies Home Medications Medication Instructions Recorded Confirmed Type Pantoprazole [Protonix] 40 mg PO BID 11/05/17 03/20/23 History Tamsulosin [Flomax] 0.8 mg PO HS 11/05/17 03/20/23 History Citalopram Hydrobromide [CeleXA] 20 mg PO DAILY 12/12/18 03/20/23 History allopurinoL [Zyloprim] 100 mg PO DAILY 04/05/19 03/20/23 History Atorvastatin [Lipitor] 80 mg PO HS 12/30/19 03/20/23 History Isosorbide Mononitrate ER [Imdur] 60 mg PO DAILY 12/30/19 03/20/23 History Citalopram Hydrobromide [CeleXA] 40 mg PO DAILY 06/29/20 03/20/23 History Loratadine [Claritin] 10 mg PO DAILY 01/21/21 03/20/23 History Gabapentin 600 mg PO BID 02/28/22 03/20/23 History Lurasidone [Latuda] 40 mg PO HS 06/20/22 03/20/23 History Ondansetron Odt [Zofran ODT] 4 mg PO BID PRN 06/20/22 03/20/23 History Triamcinolone 0.1% Cream [Kenalog 1 applic TOPICAL BID PRN 06/20/22 03/20/23 History 0.1% Cream] Acetaminophen-Codeine 300-30mg 1 tab PO BID PRN 07/18/22 03/20/23 History [Tylenol w/codeine #3] Darbepoetin Omari [Aranesp] 60 mcg SQ Q14D 01/30/23 03/20/23 History Docusate [Colace] 100 mg PO BID 01/30/23 03/20/23 History Aspirin [[place] Aspirin EC] 81 mg PO DAILY #30 tab 03/18/23 03/20/23 Rx Calcium Acetate [PhosLo] 667 mg PO TID-W/MEALS #90 tab 03/18/23 03/20/23 Rx Clopidogrel [Plavix] 75 mg PO HS #30 tab 03/18/23 03/20/23 Rx INSULIN ASPART (NovoLOG) [NovoLOG 2 unit SQ AC-TID #10 ml 03/18/23 03/20/23 Rx (formulary)] Insulin Detemir (Levemir) [Levemir] 10 unit SQ HS #10 ml 03/18/23 03/20/23 Rx NIFEdipine XL [Procardia XL] 30 mg PO DAILY 30 Days #30 tab 03/18/23 03/20/23 Rx hydrALAZINE HCL 50 mg PO TID #90 tab 03/18/23 03/20/23 Rx Amoxic-Pot Clav 875-125Mg 1 tab PO DIRECTED 03/20/23 03/20/23 History [Augmentin 875-125] Furosemide [Lasix] 40 mg PO DAILY 03/20/23 03/20/23 History amLODIPine [Norvasc] 10 mg PO ONCE 03/20/23 03/20/23 History Allergies Allergy/AdvReac Type Severity Reaction Status Date / Time Iodinated Contrast Media AdvReac Nausea & Verified 03/20/23 21:47 [Iodinated Contrast- Oral Vomiting and IV Dye] sucralfate AdvReac Nausea & Verified 03/20/23 21:47 Vomiting Physical Exam Vitals: Vital Signs Temp Pulse Pulse Resp BP BP BP 03/21/23 07:00 98.8 F 58 L 17 158/71 03/21/23 00:05 98.3 F 63 15 163/77 03/20/23 23:06 98.7 F 73 14 148/73 03/20/23 22:30 98.6 F 03/20/23 22:00 61 18 178/83 03/20/23 21:00 58 L 18 183/77 03/20/23 20:00 64 18 193/85 03/20/23 19:00 59 L 18 168/75 03/20/23 18:31 97.9 F 55 L 18 165/75 03/20/23 18:00 62 18 164/75 03/20/23 17:00 58 L 18 165/73 03/20/23 16:00 169/69 03/20/23 15:25 98.4 F 60 17 169/69 03/20/23 15:23 Pulse Ox 03/21/23 07:00 96 03/21/23 00:05 96 03/20/23 23:06 97 09/29/23 22:30 03/20/23 22:00 96 03/20/23 21:00 97 03/20/23 20:00 95 03/20/23 19:00 96 03/20/23 18:31 97 03/20/23 18:00 95 03/20/23 17:00 96 03/20/23 16:00 97 03/20/23 15:25 97 03/20/23 15:23 98 Intake and Output 03/20/23 03/21/23 03/21/23 22:59 06:59 14:59 Output Total 925 Balance -925 Output: Urine 925 Other: Voiding Method Indwelling Catheter Indwelling Catheter Weight 89.358 kg 89.358 kg Results CBC & Chem 7: 03/20/23 17:35 03/20/23 17:35 Labs: Abnormal Lab Results - Last 24 Hours (Table) 03/20/23 03/20/23 03/20/23 Range/Units 17:35 17:35 17:35 RBC 2.82 L (4.30-5.90) m/uL Hgb 8.4 L (13.0-17.5) gm/dL Hct 24.9 L (39.0-53.0) % Plt Count 143 L (150-450) k/uL Lymphocytes # 0.9 L (1.0-4.8) k/uL Carbon Dioxide 31 H (22-30) mmol/L Creatinine 2.18 H (0.66-1.25) mg/dL Glucose 240 H (74-99) mg/dL POC Glucose (mg/dL) (70-110) mg/dL Hemoglobin A1c 6.4 H (<=6.0) % Calcium 7.8 L (8.4-10.2) mg/dL 03/20/23 Range/Units 23:49 RBC (4.30-5.90) m/uL Hgb (13.0-17.5) gm/dL Hct (39.0-53.0) % Plt Count (150-450) k/uL Lymphocytes # (1.0-4.8) k/uL Carbon Dioxide (22-30) mmol/L Creatinine (0.66-1.25) mg/dL Glucose (74-99) mg/dL POC Glucose (mg/dL) 204 H (70-110) mg/dL Hemoglobin A1c (<=6.0) % Calcium (8.4-10.2) mg/dL Thrombosis Risk Factor Assmnt - Choose All That Apply Any of the Below Risk Factors Present?: Yes Each Factor Represents 1 point: Age 41-60 years, Obesity (BMI >25), Serious lung disease incl. pneumonia (< 1month) Other Risk Factors: No Other congenital or acquired thrombophilia - If yes, enter type in comment: No Thrombosis Risk Factor Assessment Total Risk Factor Score: 3 Thrombosis Risk Factor Assessment Level: Moderate Risk
--- NOTE | 2023-03-21 16:53 | P.NPCON ---
History of Present Illness - Reason for Consult Consult date: 03/21/23 acute renal failure - Chief Complaint Bleeding around the permacath site - History of Present Illness 57-year-old gentleman coming to the hospital with the above complaints. He was started on hemodialysis on 03/14/2023 secondary to CRS. He has underlying stage IV CK D with a baseline creatinine of 3.2-3.5 MG per DL. He was discharged and he was bleeding from the permacath sites. Currently on TTS dialysis schedule. He was given DDAVP, bleeding better. Review of Systems Constitutional: Reports as per HPI Past Medical History Past Medical History: Coronary Artery Disease (CAD), CVA/TIA, Diabetes Mellitus, GERD/Reflux, Hyperlipidemia, Hypertension, Myocardial Infarction ([place]), Renal Disease, Rheumatoid Arthritis ([place]) Additional Past Medical History / Comment(s): stroke apr 2017, migranes, diabetic neuropathy arms and legs, stage 3 kidney failure, PANCREATITIS, LEGALLY BLIND, enlarged prostate, trouble urinating Last Myocardial Infarction Date:: 2014 History of Any Multi-Drug Resistant Organisms: None Reported Past Surgical History: Cholecystectomy, Heart Catheterization With Stent, Heart Catheterization With Stent Additional Past Surgical History / Comment(s): Dialysis Port - 03/14/23. Prostrate surgery. HIATAL HERNIA REPAIR -January Past Anesthesia/Blood Transfusion Reactions: No Reported Reaction Additional Past Anesthesia/Blood Transfusion Reaction / Comment(s): never had anethesia Date of Last Stent Placement:: 2017 Past Psychological History: Anxiety, Depression Smoking Status: Never smoker Past Alcohol Use History: None Reported Past Drug Use History: None Reported - Past Family History Mother Family Medical History: CVA/TIA, Diabetes Mellitus, Hypertension Additional Family Medical History / Comment(s): Parkinson's Mother Father Family Medical History: CVA/TIA, Diabetes Mellitus, Myocardial Infarction ([place]) Additional Family Medical History / Comment(s): Father of a [place] in his 50s. Medications and Allergies Home Medications Medication Instructions Recorded Confirmed Type Pantoprazole [Protonix] 40 mg PO BID 11/05/17 03/20/23 History Tamsulosin [Flomax] 0.8 mg PO HS 11/05/17 03/20/23 History Citalopram Hydrobromide [CeleXA] 20 mg PO DAILY 12/12/18 03/20/23 History allopurinoL [Zyloprim] 100 mg PO DAILY 04/05/19 03/20/23 History Atorvastatin [Lipitor] 80 mg PO HS 12/30/19 03/20/23 History Isosorbide Mononitrate ER [Imdur] 60 mg PO DAILY 12/30/19 03/20/23 History Citalopram Hydrobromide [CeleXA] 40 mg PO DAILY 06/29/20 03/20/23 History Loratadine [Claritin] 10 mg PO DAILY 01/21/21 03/20/23 History Gabapentin 600 mg PO BID 02/28/22 03/20/23 History Lurasidone [Latuda] 40 mg PO HS 06/20/22 03/20/23 History Ondansetron Odt [Zofran ODT] 4 mg PO BID PRN 06/20/22 03/20/23 History Triamcinolone 0.1% Cream [Kenalog 1 applic TOPICAL BID PRN 06/20/22 03/20/23 History 0.1% Cream] Acetaminophen-Codeine 300-30mg 1 tab PO BID PRN 07/18/22 03/20/23 History [Tylenol w/codeine #3] Darbepoetin Omari [Aranesp] 60 mcg SQ Q14D 01/30/23 03/20/23 History Docusate [Colace] 100 mg PO BID 01/30/23 03/20/23 History Aspirin [[place] Aspirin EC] 81 mg PO DAILY #30 tab 03/18/23 03/20/23 Rx Calcium Acetate [PhosLo] 667 mg PO TID-W/MEALS #90 tab 03/18/23 03/20/23 Rx Clopidogrel [Plavix] 75 mg PO HS #30 tab 03/18/23 03/20/23 Rx INSULIN ASPART (NovoLOG) [NovoLOG 2 unit SQ AC-TID #10 ml 03/18/23 03/20/23 Rx (formulary)] Insulin Detemir (Levemir) [Levemir] 10 unit SQ HS #10 ml 03/18/23 03/20/23 Rx NIFEdipine XL [Procardia XL] 30 mg PO DAILY 30 Days #30 tab 03/18/23 03/20/23 Rx hydrALAZINE HCL 50 mg PO TID #90 tab 03/18/23 03/20/23 Rx Amoxic-Pot Clav 875-125Mg 1 tab PO DIRECTED 03/20/23 03/20/23 History [Augmentin 875-125] Furosemide [Lasix] 40 mg PO DAILY 03/20/23 03/20/23 History amLODIPine [Norvasc] 10 mg PO ONCE 03/20/23 03/20/23 History Allergies Allergy/AdvReac Type Severity Reaction Status Date / Time Iodinated Contrast Media AdvReac Nausea & Verified 03/20/23 21:47 [Iodinated Contrast- Oral Vomiting and IV Dye] sucralfate AdvReac Nausea & Verified 03/20/23 21:47 Vomiting Physical Exam Vitals: Vital Signs Temp Pulse Pulse Resp BP BP BP 03/21/23 15:00 98.2 F 60 17 150/60 03/21/23 07:00 98.8 F 58 L 17 158/71 03/21/23 00:05 98.3 F 63 15 163/77 03/20/23 23:06 98.7 F 73 14 148/73 03/20/23 22:30 98.6 F 03/20/23 22:00 61 18 178/83 03/20/23 21:00 58 L 18 183/77 03/20/23 20:00 64 18 193/85 03/20/23 19:00 59 L 18 168/75 03/20/23 18:31 97.9 F 55 L 18 165/75 03/20/23 18:00 62 18 164/75 03/20/23 17:00 58 L 18 165/73 Pulse Ox 03/21/23 15:00 94 L 03/21/23 07:00 96 03/21/23 00:05 96 03/20/23 23:06 97 03/20/23 22:30 03/20/23 22:00 96 03/20/23 21:00 97 03/20/23 20:00 95 03/20/23 19:00 96 03/20/23 18:31 97 03/20/23 18:00 95 03/20/23 17:00 96 Intake and Output 03/21/23 03/21/23 03/21/23 06:59 14:59 22:59 Intake Total 339 Output Total 925 Balance -925 339 Intake: Intake, IV Titration 0 Amount Desmopressin Acetate 26 0 mcg In Sodium Chloride 0. 9% 50 ml @ 200 mls/hr IVPB ONCE ONE Rx#: [id number] Oral 339 Output: Urine 925 Other: Voiding Method Indwelling Catheter Indwelling Catheter Weight 89.358 kg No acute distress S1-S2 heard Lungs clear No edema Permacath site clean Results - Lab Results Most recent lab results Calcium 7.8 mg/dL (8.4-10.2) L 03/20/23 17:35 03/20/23 17:35 03/20/23 17:35 Assessment and Plan Assessment: #1 bleeding from the permacath site. #2 acute kidney injury on dialysis secondary to CRS. -TTS schedule #3 anemia with chronic kidney disease #4 CK D stage IV with a baseline creatinine of 3.2-3.5 MG per DL #4 metabolic bone disease #5 hypertension with chronic kidney disease Plan: #1 hemodialysis today as outpatient schedule #2 status post DDAVP. #3 if bleeding controlled, can be discharged from nephrology
[2023-03-21 17:23] LABS: Glucose,Whole Blood 111 mg/dL (70-110)
[2023-03-21] MEDS ORDERED: DESMOPRESSIN ACETATE IVPB ONE (18:26)
[2023-03-21] MEDS ORDERED: SODIUM CHLORIDE 0.9% IVPB ONE (18:26)
[2023-03-21 20:40] LABS: Glucose,Whole Blood 190 mg/dL (70-110)
[2023-03-21] MEDS ORDERED: TAMSULOSIN 0.4 MG CAP.ER.24H PO SCH (21:00)
[2023-03-21] MEDS ORDERED: ONDANSETRON 4 MG/2 ML VIAL IVP PRN (22:03)
[2023-03-21] MEDS ORDERED: ACETAMINOPHEN TAB 325 MG TAB PO PRN (22:03)
[2023-03-21] MEDS ORDERED: INSULIN ASPART (NovoLOG) 100 UNIT/ML VIAL SQ SCH (23:23)
[2023-03-22 06:09] LABS: Glucose,Whole Blood 109 mg/dL (70-110)
[2023-03-22] MEDS: INSULIN ASPART (NovoLOG) 100 UNIT/ML VIAL SQ SCH ×4 (06:12→12:47)
[2023-03-22] MEDS: CALCIUM ACETATE 667 MG TAB PO SCH ×2 (06:36→12:46)
[2023-03-22] MEDS: GABAPENTIN 300 MG CAP PO SCH (08:31)
[2023-03-22] MEDS: PANTOPRAZOLE 40 MG TABLET PO SCH (08:31)
[2023-03-22] MEDS: DOCUSATE 100 MG CAP PO SCH (08:31)
[2023-03-22] MEDS: hydrALAZINE HCL 50 MG TAB PO SCH (08:32)
[2023-03-22] MEDS ORDERED: NIFEdipine XL 30 MG TAB.ER.24 PO SCH (09:00)
[2023-03-22] MEDS ORDERED: CITALOPRAM HYDROBROMIDE 20 MG TAB PO SCH ×2 (09:00)
[2023-03-22] MEDS ORDERED: FUROSEMIDE 40 MG TAB PO SCH (09:00)
[2023-03-22] MEDS ORDERED: allopurinoL 100 MG TAB PO SCH (09:00)
[2023-03-22] MEDS ORDERED: ISOSORBIDE MONONITRATE ER 60 MG TAB.ER.24H PO SCH (09:00)
--- NOTE | 2023-03-22 09:17 | P.GSCN ---
History of Present Illness History of present illness: 57-year-old gentleman patient has history of chronic renal failure hypertension diabetes patient had a right IJ catheter placed last week patient is on Plavix patient has some bleeding from the tunnel site patient country admitted week clear DDAVP today on examination the catheter site is intact no active bleeding was noted pressure dressing was applied On examination neck is supple Chest is clear patient has a right IJ catheter first and second sound present Abdomen soft nontender Femorals 1+ Plan dressing is changed patient had a dialysis catheter yesterday patient is stable from surgical point of view patient will follow for dialysis catheter the dialysis center Past Medical History Past Medical History: Coronary Artery Disease (CAD), CVA/TIA, Diabetes Mellitus, GERD/Reflux, Hyperlipidemia, Hypertension, Myocardial Infarction ([place]), Renal Disease, Rheumatoid Arthritis ([place]) Additional Past Medical History / Comment(s): stroke apr 2017, migranes, diabetic neuropathy arms and legs, stage 3 kidney failure, PANCREATITIS, LEGALLY BLIND, enlarged prostate, trouble urinating Last Myocardial Infarction Date:: 2014 History of Any Multi-Drug Resistant Organisms: None Reported Past Surgical History: Cholecystectomy, Heart Catheterization With Stent, Heart Catheterization With Stent Additional Past Surgical History / Comment(s): Dialysis Port - 03/14/23. Prostrate surgery. HIATAL HERNIA REPAIR -January Past Anesthesia/Blood Transfusion Reactions: No Reported Reaction Additional Past Anesthesia/Blood Transfusion Reaction / Comm: never had anethesia Date of Last Stent Placement:: 2017 Past Psychological History: Anxiety, Depression Smoking Status: Never smoker Past Alcohol Use History: None Reported Past Drug Use History: None Reported - Past Family History Mother Family Medical History: CVA/TIA, Diabetes Mellitus, Hypertension Additional Family Medical History / Comment(s): Parkinson's Mother Father Family Medical History: CVA/TIA, Diabetes Mellitus, Myocardial Infarction ([place]) Additional Family Medical History / Comment(s): Father of a [place] in his 50s. Medications and Allergies Home Medications Medication Instructions Recorded Confirmed Type Pantoprazole [Protonix] 40 mg PO BID 11/05/17 03/20/23 History Tamsulosin [Flomax] 0.8 mg PO HS 11/05/17 03/20/23 History Citalopram Hydrobromide [CeleXA] 20 mg PO DAILY 12/12/18 03/20/23 History allopurinoL [Zyloprim] 100 mg PO DAILY 04/05/19 03/20/23 History Atorvastatin [Lipitor] 80 mg PO HS 12/30/19 03/20/23 History Isosorbide Mononitrate ER [Imdur] 60 mg PO DAILY 12/30/19 03/20/23 History Citalopram Hydrobromide [CeleXA] 40 mg PO DAILY 06/29/20 03/20/23 History Loratadine [Claritin] 10 mg PO DAILY 01/21/21 03/20/23 History Gabapentin 600 mg PO BID 02/28/22 03/20/23 History Lurasidone [Latuda] 40 mg PO HS 06/20/22 03/20/23 History Ondansetron Odt [Zofran ODT] 4 mg PO BID PRN 06/20/22 03/20/23 History Triamcinolone 0.1% Cream [Kenalog 1 applic TOPICAL BID PRN 06/20/22 03/20/23 History 0.1% Cream] Acetaminophen-Codeine 300-30mg 1 tab PO BID PRN 07/18/22 03/20/23 History [Tylenol w/codeine #3] Darbepoetin Omari [Aranesp] 60 mcg SQ Q14D 01/30/23 03/20/23 History Docusate [Colace] 100 mg PO BID 01/30/23 03/20/23 History Aspirin [[place] Aspirin EC] 81 mg PO DAILY #30 tab 03/18/23 03/20/23 Rx Calcium Acetate [PhosLo] 667 mg PO TID-W/MEALS #90 tab 03/18/23 03/20/23 Rx Clopidogrel [Plavix] 75 mg PO HS #30 tab 03/18/23 03/20/23 Rx INSULIN ASPART (NovoLOG) [NovoLOG 2 unit SQ AC-TID #10 ml 03/18/23 03/20/23 Rx (formulary)] Insulin Detemir (Levemir) [Levemir] 10 unit SQ HS #10 ml 03/18/23 03/20/23 Rx NIFEdipine XL [Procardia XL] 30 mg PO DAILY 30 Days #30 tab 03/18/23 03/20/23 Rx hydrALAZINE HCL 50 mg PO TID #90 tab 03/18/23 03/20/23 Rx Amoxic-Pot Clav 875-125Mg 1 tab PO DIRECTED 03/20/23 03/20/23 History [Augmentin 875-125] Furosemide [Lasix] 40 mg PO DAILY 03/20/23 03/20/23 History amLODIPine [Norvasc] 10 mg PO ONCE 03/20/23 03/20/23 History Allergies Allergy/AdvReac Type Severity Reaction Status Date / Time Iodinated Contrast Media AdvReac Nausea & Verified 03/20/23 21:47 [Iodinated Contrast- Oral Vomiting and IV Dye] sucralfate AdvReac Nausea & Verified 03/20/23 21:47 Vomiting Surgical - Exam Vital Signs Pulse Ox 98 03/20/23 15:23 Results - Labs 03/20/23 17:35 03/20/23 17:35 Abnormal Lab Results - Last 24 Hours (Table) 03/21/23 03/21/23 Range/Units 17:22 20:38 POC Glucose (mg/dL) 111 H 190 H (70-110) mg/dL
[2023-03-22 11:22] VITALS: BP 174/73; PULSE 66; RESP 17; TEMP 98.2
[2023-03-22 11:32] LABS: Glucose,Whole Blood 203 mg/dL (70-110)
--- NOTE | 2023-03-22 11:51 | P.DS ---
Providers Date of admission: 03/20/23 21:16 Expected date of discharge: 03/22/23 Attending physician: Shakeel Miramontes Consults: 03/20/23 20:57 Consult Physician Urgent Consulting Provider: Ivan Bright Consult Reason/Comments: bleeding from dialysis catheter Do you want consulting provider notified?: Already Contacted Consult Physician Urgent Consulting Provider: Shree Fine Consult Reason/Comments: dialysis Do you want consulting provider notified?: Already Contacted Primary care physician: Tyler Newton Hospital Course: Discharge diagnoses; Bleeding around the dialysis catheter site End-stage renal disease on dialysis Hypertension with urgency improved and off the nitro gtt currently. Diabetes mellitus type 2 Hyperlipidemia History of CVA Hospital course; 57-year-old gentleman with past medical history significant for coronary artery disease, history of CVA, history of diabetes mellitus, hyperlipidemia, hypertension, chronic kidney disease who was only discharged 2 days ago from the hospital after being admitted in the hospital, patient at that time was being seen by nephrology, cardiology, pulmonology, patient was initiated on dialysis by nephrology and was discharged in stable condition. Patient presented to the ER this admission because of dialysis catheter bleeding , Patient Noticed That There Was Bleeding around the Catheter Site. Patient tried to apply pressure dressings but that did not help the bleeding. Because his persistent bleeding, patient presented to the ER. Patient denies any chest pain. Denies shortness of breath. did not complain of fever or chills. No nausea, vomiting or abdominal pain. Initial lab work done in the ER showed WBC 7.6, hemoglobin 8.4, platelet count 143, sodium 137, potassium 4.2, BUN 20, creatinine 2.18, HbA1c 6.4, calcium 7.8 ER discussed with nephrology and vascular surgery, vascular surgery recommended keeping patient 1 dose of DDAVP and monitoring overnight. Patient admitted to medicine service 03/22. Patient was evaluated by vascular surgery, patient bleeding around catheter stopped. Vascular surgery cleared the patient for discharge. PHYSICAL EXAMINATION: GENERAL: The patient is alert and oriented x3, not in any acute distress. Well developed, well nourished. HEENT: Pupils are round and equally reacting to light. EOMI. No scleral icterus. No conjunctival pallor. Normocephalic, atraumatic. No pharyngeal erythema. No thyromegaly. CARDIOVASCULAR: S1 and S2 present. No murmurs, rubs, or gallops. PULMONARY: Chest is clear to auscultation, no wheezing or crackles. ABDOMEN: Soft, nontender, nondistended, normoactive bowel sounds. No palpable organomegaly. MUSCULOSKELETAL: No joint swelling or deformity. EXTREMITIES: No cyanosis, clubbing, or pedal edema. NEUROLOGICAL: Gross neurological examination did not reveal any focal deficits. SKIN: No rashes. Dictation was produced using [employer] dictation software. please excuse any grammatical, word or spelling errors. Patient Condition at Discharge: Fair Plan - Discharge Summary Discharge Rx Participant: Yes New Discharge Prescriptions: Continue Pantoprazole [Protonix] 40 mg PO BID Tamsulosin [Flomax] 0.8 mg PO HS Citalopram Hydrobromide [CeleXA] 20 mg PO DAILY allopurinoL [Zyloprim] 100 mg PO DAILY Isosorbide Mononitrate ER [Imdur] 60 mg PO DAILY Atorvastatin [Lipitor] 80 mg PO HS Citalopram Hydrobromide [CeleXA] 40 mg PO DAILY Triamcinolone 0.1% Cream [Kenalog 0.1% Cream] 1 applic TOPICAL BID PRN PRN Reason: Skin Irritation Acetaminophen-Codeine 300-30mg [Tylenol w/codeine #3] 1 tab PO BID PRN PRN Reason: Pain Darbepoetin Omari [Aranesp] 60 mcg SQ Q14D Insulin Detemir (Levemir) [Levemir] 10 unit SQ HS #10 ml Clopidogrel [Plavix] 75 mg PO HS #30 tab NIFEdipine XL [Procardia XL] 30 mg PO DAILY 30 Days #30 tab Aspirin [[place] Aspirin EC] 81 mg PO DAILY #30 tab Loratadine [Claritin] 10 mg PO DAILY Gabapentin 600 mg PO BID Lurasidone [Latuda] 40 mg PO HS Ondansetron Odt [Zofran ODT] 4 mg PO BID PRN PRN Reason: Nausea Docusate [Colace] 100 mg PO BID INSULIN ASPART (NovoLOG) [NovoLOG (formulary)] 2 unit SQ AC-TID #10 ml Calcium Acetate [PhosLo] 667 mg PO TID-W/MEALS #90 tab hydrALAZINE HCL 50 mg PO TID #90 tab Furosemide [Lasix] 40 mg PO DAILY Discontinued amLODIPine [Norvasc] 10 mg PO ONCE Amoxic-Pot Clav 875-125Mg [Augmentin 875-125] 1 tab PO DIRECTED Discharge Medication List Pantoprazole [Protonix] 40 mg PO BID 11/05/17 [History] Tamsulosin [Flomax] 0.8 mg PO HS 11/05/17 [History] Citalopram Hydrobromide [CeleXA] 20 mg PO DAILY 12/12/18 [History] allopurinoL [Zyloprim] 100 mg PO DAILY 04/05/19 [History] Atorvastatin [Lipitor] 80 mg PO HS 12/30/19 [History] Isosorbide Mononitrate ER [Imdur] 60 mg PO DAILY 12/30/19 [History] Citalopram Hydrobromide [CeleXA] 40 mg PO DAILY 06/29/20 [History] Loratadine [Claritin] 10 mg PO DAILY 01/21/21 [History] Gabapentin 600 mg PO BID 02/28/22 [History] Lurasidone [Latuda] 40 mg PO HS 06/20/22 [History] Ondansetron Odt [Zofran ODT] 4 mg PO BID PRN 06/20/22 [History] Triamcinolone 0.1% Cream [Kenalog 0.1% Cream] 1 applic TOPICAL BID PRN 06/20/22 [History] Acetaminophen-Codeine 300-30mg [Tylenol w/codeine #3] 1 tab PO BID PRN 07/18/22 [History] Darbepoetin Omari [Aranesp] 60 mcg SQ Q14D 01/30/23 [History] Docusate [Colace] 100 mg PO BID 01/30/23 [History] Aspirin [[place] Aspirin EC] 81 mg PO DAILY #30 tab 03/18/23 [Rx] Calcium Acetate [PhosLo] 667 mg PO TID-W/MEALS #90 tab 03/18/23 [Rx] Clopidogrel [Plavix] 75 mg PO HS #30 tab 03/18/23 [Rx] INSULIN ASPART (NovoLOG) [NovoLOG (formulary)] 2 unit SQ AC-TID #10 ml 03/18/23 [Rx] Insulin Detemir (Levemir) [Levemir] 10 unit SQ HS #10 ml 03/18/23 [Rx] NIFEdipine XL [Procardia XL] 30 mg PO DAILY 30 Days #30 tab 03/18/23 [Rx] hydrALAZINE HCL 50 mg PO TID #90 tab 03/18/23 [Rx] Furosemide [Lasix] 40 mg PO DAILY 03/20/23 [History] Follow up Appointment(s)/Referral(s): Lamar Scott MD [Primary Care Provider] - 1-2 days Discharge Disposition: HOME SELF-CARE
== END 2023-03-22 13:57 | disposition home or self-care (01) ==
LOC: EC 15:18 → 6NMEDSUR 21:16
PROVIDERS: ADMIT Hospitalist; ATTEND Hospitalist
DX: T82.838A Hemorrhage due to vascular prosthetic devices, implants and grafts, initial encounter (principal); Y84.1 Kidney dialysis as the cause of abnormal reaction of the patient, or of later complication, without mention of misadventure at the time of the procedure; I12.0 Hypertensive chronic kidney disease with stage 5 chronic kidney disease or end stage renal disease; E11.22 Type 2 diabetes mellitus with diabetic chronic kidney disease; N18.6 End stage renal disease; Z99.2 Dependence on renal dialysis; E78.5 Hyperlipidemia, unspecified; Z86.73 Personal history of transient ischemic attack (TIA), and cerebral infarction without residual deficits; I25.10 Atherosclerotic heart disease of native coronary artery without angina pectoris; I16.0 Hypertensive urgency; Z79.4 Long term (current) use of insulin; M06.9 Rheumatoid arthritis, unspecified; I25.2 Old myocardial infarction; K21.9 Gastro-esophageal reflux disease without esophagitis; Z90.49 Acquired absence of other specified parts of digestive tract; H54.8 Legal blindness, as defined in USA; N40.0 Benign prostatic hyperplasia without lower urinary tract symptoms; K85.90 Acute pancreatitis without necrosis or infection, unspecified; E66.9 Obesity, unspecified; Z68.29 Body mass index [BMI] 29.0-29.9, adult; G62.9 Polyneuropathy, unspecified; Z95.5 Presence of coronary angioplasty implant and graft; F41.9 Anxiety disorder, unspecified; F32.A Depression, unspecified; N17.9 Acute kidney failure, unspecified; D63.1 Anemia in chronic kidney disease; M89.8X9 Other specified disorders of bone, unspecified site; E11.40 Type 2 diabetes mellitus with diabetic neuropathy, unspecified; Z87.01 Personal history of pneumonia (recurrent); Z79.02 Long term (current) use of antithrombotics/antiplatelets; Z79.899 Other long term (current) drug therapy; Z79.82 Long term (current) use of aspirin; Z88.8 Allergy status to other drugs, medicaments and biological substances; Z91.041 Radiographic dye allergy status; Z83.3 Family history of diabetes mellitus; Z82.49 Family history of ischemic heart disease and other diseases of the circulatory system; Z82.3 Family history of stroke; Z82.0 Family history of epilepsy and other diseases of the nervous system
CPT/HCPCS: 90935; 99285; 36415; 80048; 85025; 83036; G0378 ×3; J2597 ×2

== ENCOUNTER 2023-05-05 14:58 | Inpatient (IN) | payer MEDICARE ==
[2023-05-05] MEDS ORDERED: ASPIRIN 81 MG PO STA (15:36)
[2023-05-05] MEDS ORDERED: NITROGLYCERIN OINT 1 INCH/GM PACKET TOPICAL STA (15:36)
[2023-05-05] MEDS ORDERED: MORPHINE SULFATE 4 MG/ML SYRINGE IV STA (15:36)
--- NOTE | 2023-05-05 15:39 | ED ---
General Adult HPI - General Chief complaint: Chest Pain Stated complaint: chest pain Time Seen by Provider: 05/05/23 15:19 Source: patient, EMS, RN notes reviewed Mode of arrival: EMS Limitations: no limitations - History of Present Illness Initial comments: Patient is a pleasant 57-year-old male presenting to the emergency department with concerns with chest discomfort. Onset of symptoms was prior to arrival. Discomfort was 9/10. Following 3 nitro glycerin discomfort is 7/10. There is some radiation to the neck and arm. Patient does have history of similar symptoms previously associated with cardiac disease. Patient does have 4 previous stents. Patient does have mild associated dyspnea, nausea. No leg pain or leg swelling. - Related Data Home Medications Medication Instructions Recorded Confirmed Pantoprazole [Protonix] 40 mg PO BID 11/05/17 03/20/23 Tamsulosin [Flomax] 0.8 mg PO HS 11/05/17 03/20/23 Citalopram Hydrobromide [CeleXA] 20 mg PO DAILY 12/12/18 03/20/23 allopurinoL [Zyloprim] 100 mg PO DAILY 04/05/19 03/20/23 Atorvastatin [Lipitor] 80 mg PO HS 12/30/19 03/20/23 Isosorbide Mononitrate ER [Imdur] 60 mg PO DAILY 12/30/19 03/20/23 Citalopram Hydrobromide [CeleXA] 40 mg PO DAILY 06/29/20 03/20/23 Loratadine [Claritin] 10 mg PO DAILY 01/21/21 03/20/23 Gabapentin 600 mg PO BID 02/28/22 03/20/23 Lurasidone [Latuda] 40 mg PO HS 06/20/22 03/20/23 Ondansetron Odt [Zofran ODT] 4 mg PO BID PRN 06/20/22 03/20/23 Triamcinolone 0.1% Cream [Kenalog 1 applic TOPICAL BID PRN 06/20/22 03/20/23 0.1% Cream] Acetaminophen-Codeine 300-30mg 1 tab PO BID PRN 07/18/22 03/20/23 [Tylenol w/codeine #3] Darbepoetin Omari [Aranesp] 60 mcg SQ Q14D 01/30/23 03/20/23 Docusate [Colace] 100 mg PO BID 01/30/23 03/20/23 Furosemide [Lasix] 40 mg PO DAILY 03/20/23 03/20/23 Previous Rx's Medication Instructions Recorded Aspirin [[place] Aspirin EC] 81 mg PO DAILY #30 tab 03/18/23 Calcium Acetate [PhosLo] 667 mg PO TID-W/MEALS #90 tab 03/18/23 Clopidogrel [Plavix] 75 mg PO HS #30 tab 03/18/23 INSULIN ASPART (NovoLOG) [NovoLOG 2 unit SQ AC-TID #10 ml 03/18/23 (formulary)] Insulin Detemir (Levemir) [Levemir] 10 unit SQ HS #10 ml 03/18/23 NIFEdipine XL [Procardia XL] 30 mg PO DAILY 30 Days #30 tab 03/18/23 hydrALAZINE HCL 50 mg PO TID #90 tab 03/18/23 Allergies Allergy/AdvReac Type Severity Reaction Status Date / Time Iodinated Contrast Media AdvReac Nausea & Verified 03/20/23 21:47 [Iodinated Contrast- Oral Vomiting and IV Dye] sucralfate AdvReac Nausea & Verified 03/20/23 21:47 Vomiting Review of Systems ROS Statement: Those systems with pertinent positive or pertinent negative responses have been documented in the HPI. ROS Other: All systems not noted in ROS Statement are negative. Constitutional: Denies: fever Eyes: Denies: eye pain ENT: Denies: ear pain Respiratory: Reports: as per HPI. Denies: cough Cardiovascular: Reports: as per HPI, chest pain Endocrine: Denies: fatigue Gastrointestinal: Reports: nausea. Denies: abdominal pain Musculoskeletal: Denies: back pain Neurological: Denies: weakness Past Medical History Past Medical History: Coronary Artery Disease (CAD), CVA/TIA, Diabetes Mellitus, GERD/Reflux, Hyperlipidemia, Hypertension, Myocardial Infarction ([place]), Renal Disease, Rheumatoid Arthritis (RA) Additional Past Medical History / Comment(s): stroke apr 2017, migranes, diabetic neuropathy arms and legs, stage 3 kidney failure, PANCREATITIS, LEGALLY BLIND, enlarged prostate, trouble urinating Last Myocardial Infarction Date:: 2014 History of Any Multi-Drug Resistant Organisms: None Reported Past Surgical History: Cholecystectomy, Heart Catheterization With Stent, Heart Catheterization With Stent Additional Past Surgical History / Comment(s): Dialysis Port - 03/14/23. Prostrate surgery. HIATAL HERNIA REPAIR -January Past Anesthesia/Blood Transfusion Reactions: No Reported Reaction Additional Past Anesthesia/Blood Transfusion Reaction / Comment(s): never had anethesia Date of Last Stent Placement:: 2017 Past Psychological History: Anxiety, Depression Smoking Status: Never smoker Past Alcohol Use History: None Reported Past Drug Use History: None Reported - Past Family History Mother Family Medical History: CVA/TIA, Diabetes Mellitus, Hypertension Additional Family Medical History / Comment(s): Parkinson's Mother Father Family Medical History: CVA/TIA, Diabetes Mellitus, Myocardial Infarction ([place]) Additional Family Medical History / Comment(s): Father of a [place] in his 50s. General Exam Limitations: no limitations General appearance: alert, in no apparent distress Head exam: Present: normocephalic Eye exam: Present: normal appearance Neck exam: Present: normal inspection Respiratory exam: Present: normal lung sounds bilaterally. Absent: chest wall tenderness Cardiovascular Exam: Present: regular rate, normal rhythm Expanded Peripheral pulses: 2+: Radial (R), Radial (L), Posterior Tibialis (R), Posterior Tibialis (L) GI/Abdominal exam: Present: soft. Absent: tenderness Extremities exam: Present: normal inspection. Absent: pedal edema, calf tenderness Neurological exam: Present: alert Psychiatric exam: Present: normal affect, normal mood Skin exam: Present: normal color Course Vital Signs 05/05/23 15:07 Temperature 98.1 F Pulse Rate 52 L Respiratory 18 Rate Blood Pressure 137/82 O2 Sat by Pulse 100 Oximetry EKG Findings - EKG Results: EKG: interpreted by ERMD, sinus rhythm, normal axis, normal QRS, normal ST/T EKG shows: bradycardia Medical Decision Making - Medical Decision Making Was pt. sent in by a medical professional or institution (, PA, REAL ESTATE TRANSACTION MANAGER, urgent care, hospital, or residential...) When possible be specific @ -No Did you speak to anyone other than the patient for history (EMS, parent, family, police, friend...)? What history was obtained from this source @ -No Did you review nursing and triage notes (agree or disagree)? Why? @ -I reviewed and agree with nursing and triage notes Were old charts reviewed (outside hosp., previous admission, EMS record, old EKG, old radiological studies, urgent care reports/EKG's, residential records)? Report findings @ -No old charts were reviewed Differential Diagnosis (chest pain, altered mental status, abdominal pain women, abdominal pain men, vaginal bleeding, weakness, fever, dyspnea, syncope, headache, dizziness, GI bleed, back pain, seizure, CVA, palpatations, mental health, musculoskeletal)? @ -Differential Chest Pain: Stable Angina, Unstable Angina, STEMI, NSTEMI Aortic Dissection, Pneumothorax, Musculoskeletal, Esophageal Spasm GERD, Cholecystitis, Pancreatitis, Zoster, this is not meant to be an all-inclusive list. EKG interpreted by me (3pts min.). @ -As above X-rays interpreted by me (1pt min.). @ -Chest x-ray shows no acute process CT interpreted by me (1pt min.). @ -None done U/S interpreted by me (1pt. min.). @ -None done What testing was considered but not performed or refused? (CT, X-rays, U/S, labs)? Why? @ -Computed tomography scan of the chest as well as premedications has been ordered for elevated d-dimer What meds were considered but not given or refused? Why? @ -None Did you discuss the management of the patient with other professionals (professionals i.e. , PA, REAL ESTATE TRANSACTION MANAGER, lab, RT, psych nurse, social services director, company miner blasting, teacher, electronic warfare officer, case work aide)? Give summary @ -Case was discussed with sheet will admit covering for Dr. Bradshaw. Was smoking cessation discussed for >3mins.? @ -No Was critical care preformed (if so, how long)? @ -No Were there social determinants of health that impacted care today? How? (Homelessness, low income, unemployed, alcoholism, drug addiction, transportation, low edu. Level, literacy, decrease access to med. care, snf, rehab)? @ -No Was there de-escalation of care discussed even if they declined (Discuss DNR or withdrawal of care, Hospice)? DNR status @ -No What co-morbidities impacted this encounter? (DM, HTN, Smoking, COPD, CAD, Cancer, CVA, ARF, Chemo, Hep., AIDS, mental health diagnosis, sleep apnea, morbid obesity)? @ -None Was patient admitted / discharged? Hospital course, mention meds given and route, prescriptions, significant lab abnormalities, going to OR and other pertinent info. @ -Patient reevaluated and improved. Patient updated on results and plan. Patient will be admitted. Admission orders written. Cardiac consult will be placed. Undiagnosed new problem with uncertain prognosis? @ -No Drug Therapy requiring intensive monitoring for toxicity (Heparin, Nitro, Insulin, Cardizem)? @ -No Were any procedures done? @ -No Diagnosis/symptom? @ -Chest pain Acute, or Chronic, or Acute on Chronic? @ -Acute Uncomplicated (without systemic symptoms) or Complicated (systemic symptoms)? @ -default Side effects of treatment? @ -No Exacerbation, Progression, or Severe Exacerbation? @ -No Poses a threat to life or bodily function? How? (Chest pain, [place], [place], pneumonia, PE, COPD, DKA, ARF, appy, cholecystitis, CVA, Diverticulitis, Homicidal, Suicidal, threat to staff... and all critical care pts) @ -Potential threat to cardiac function - Lab Data Result diagrams: 05/05/23 16:00 05/05/23 16:00 Lab Results 05/05/23 05/05/23 05/05/23 Range/Units 16:00 16:00 16:00 WBC 8.0 (3.8-10.6) k/uL RBC 3.31 L (4.30-5.90) m/uL Hgb 9.6 L (13.0-17.5) gm/dL Hct 28.9 L (39.0-53.0) % MCV 87.5 (80.0-100.0) fL MCH 29.1 (25.0-35.0) pg MCHC 33.2 (31.0-37.0) g/dL RDW 16.2 H (11.5-15.5) % Plt Count 138 L (150-450) k/uL MPV 7.2 Neutrophils % 69 % Lymphocytes % 20 % Monocytes % 6 % Eosinophils % 3 % Basophils % 0 % Neutrophils # 5.5 (1.3-7.7) k/uL Lymphocytes # 1.6 (1.0-4.8) k/uL Monocytes # 0.5 (0-1.0) k/uL Eosinophils # 0.2 (0-0.7) k/uL Basophils # 0.0 (0-0.2) k/uL Anisocytosis Slight PT 10.5 (10.0-12.5) sec INR 1.0 (<1.2) APTT 30.1 H (22.0-30.0) sec D-Dimer 1.21 H (<0.60) mg/L FEU Sodium 137 (137-145) mmol/L Potassium 3.3 L (3.5-5.1) mmol/L Chloride 103 (98-107) mmol/L Carbon Dioxide 26 (22-30) mmol/L Anion Gap 8 mmol/L BUN 21 H (9-20) mg/dL Creatinine 2.22 H (0.66-1.25) mg/dL Est GFR (CKD-EPI)AfAm 37 (>60 ml/min/1.73 sqM) Est GFR (CKD-EPI)NonAf 32 (>60 ml/min/1.73 sqM) Glucose 106 H (74-99) mg/dL Calcium 8.2 L (8.4-10.2) mg/dL Magnesium 1.7 (1.6-2.3) mg/dL Total Bilirubin 0.3 (0.2-1.3) mg/dL AST 23 (17-59) U/L ALT 24 (4-49) U/L Alkaline Phosphatase 115 (38-126) U/L Troponin I (0.000-0.034) ng/mL Total Protein 6.4 (6.3-8.2) g/dL Albumin 3.6 (3.5-5.0) g/dL Amylase 80 (30-110) U/L Lipase 315 H (23-300) U/L 05/05/23 Range/Units 16:00 WBC (3.8-10.6) k/uL RBC (4.30-5.90) m/uL Hgb (13.0-17.5) gm/dL Hct (39.0-53.0) % MCV (80.0-100.0) fL MCH (25.0-35.0) pg MCHC (31.0-37.0) g/dL RDW (11.5-15.5) % Plt Count (150-450) k/uL MPV Neutrophils % % Lymphocytes % % Monocytes % % Eosinophils % % Basophils % % Neutrophils # (1.3-7.7) k/uL Lymphocytes # (1.0-4.8) k/uL Monocytes # (0-1.0) k/uL Eosinophils # (0-0.7) k/uL Basophils # (0-0.2) k/uL Anisocytosis PT (10.0-12.5) sec INR (<1.2) APTT (22.0-30.0) sec D-Dimer (<0.60) mg/L FEU Sodium (137-145) mmol/L Potassium (3.5-5.1) mmol/L Chloride (98-107) mmol/L Carbon Dioxide (22-30) mmol/L Anion Gap mmol/L BUN (9-20) mg/dL Creatinine (0.66-1.25) mg/dL Est GFR (CKD-EPI)AfAm (>60 ml/min/1.73 sqM) Est GFR (CKD-EPI)NonAf (>60 ml/min/1.73 sqM) Glucose (74-99) mg/dL Calcium (8.4-10.2) mg/dL Magnesium (1.6-2.3) mg/dL Total Bilirubin (0.2-1.3) mg/dL AST (17-59) U/L ALT (4-49) U/L Alkaline Phosphatase (38-126) U/L Troponin I <0.012 (0.000-0.034) ng/mL Total Protein (6.3-8.2) g/dL Albumin (3.5-5.0) g/dL Amylase (30-110) U/L Lipase (23-300) U/L Disposition Clinical Impression: Chest pain Disposition: ADMITTED IP TO THIS HOSP Is patient prescribed a controlled substance at d/c from ED?: No Referrals: Lamar Scott MD [Primary Care Provider] - 1-2 days Time of Disposition: 17:07
[2023-05-05 16:17] LABS: Anisocytosis Slight; Basophils % (A) 0 %; Eosinophils # (A) 0.2 k/uL (0-0.7); Eosinophils % (A) 3 %; HCT 28.9 % (39.0-53.0); HGB 9.6 gm/dL (13.0-17.5); Lymphocytes # (A) 1.6 k/uL (1.0-4.8); Lymphocytes % (A) 20 %; MCH 29.1 pg (25.0-35.0); MCHC 33.2 g/dL (31.0-37.0); MCV 87.5 fL (80.0-100.0); Mean Platelet Volume 7.2; Monocytes # (A) 0.5 k/uL (0-1.0); Monocytes % (A) 6 %; Neutrophils # (A) 5.5 k/uL (1.3-7.7); Neutrophils % (A) 69 %; Platelet Count 138 k/uL (150-450); RBC 3.31 m/uL (4.30-5.90); RDW 16.2 % (11.5-15.5)
[2023-05-05 16:35] LABS: ALT 24 U/L (4-49); AST 23 U/L (17-59); African American GFR (CKD) 37 (>60 ml/min/1.73 sqM); Albumin 3.6 g/dL (3.5-5.0); Alkaline Phosphatase 115 U/L (38-126); Amylase 80 U/L (30-110); Anion Gap 8 mmol/L; Blood Urea Nitrogen 21 mg/dL (9-20); Calcium 8.2 mg/dL (8.4-10.2); Carbon Dioxide 26 mmol/L (22-30); Chloride 103 mmol/L (98-107); Glucose 106 mg/dL (74-99); Lipase 315 U/L (23-300); Magnesium 1.7 mg/dL (1.6-2.3); Non-African American GFR(CKD) 32 (>60 ml/min/1.73 sqM); Potassium 3.3 mmol/L (3.5-5.1); Sodium 137 mmol/L (137-145); Total Bilirubin 0.3 mg/dL (0.2-1.3); Total Protein 6.4 g/dL (6.3-8.2)
[2023-05-05 16:41] LABS: Partial Thromboplastin Time 30.1 sec (22.0-30.0); Prothrombin Time 10.5 sec (10.0-12.5)
[2023-05-05] MEDS ORDERED: FAMOTIDINE 20 MG/2 ML VIAL IV STA (16:49)
[2023-05-05] MEDS ORDERED: methylPREDNISolone SOD SUCCI 125 MG/2 ML VIAL IV STA (16:49)
[2023-05-05] MEDS ORDERED: diphenhydrAMINE 50 MG/ML 1 ML VIAL IVP STA (16:49)
--- NOTE | 2023-05-05 17:01 | XR ---
EXAMINATION TYPE: XR chest 2V DATE OF EXAM: 05/05/2023 4:48 PM CLINICAL INDICATION:Male, 57 years old with history of Chest Pain; [facility] COMPARISON: Chest x-ray 03/14/2023 TECHNIQUE: XR chest 2V Frontal and lateral views of the chest. FINDINGS: Lines/Tubes: Stable right IJ approach tunneled dialysis catheter with tip over the superior cavoatrial junction. Lungs/Pleura: There is no evidence of pleural effusion, focal consolidation, or pneumothorax. Improv ed aeration of the left lung base. Pulmonary vascularity: Mild vascular congestion. Heart/mediastinum: Stable, heart size upper limits of normal. Musculoskeletal: No acute osseous pathology. Mild degenerative changes of the spine. Other findings: None IMPRESSION: Similar mild pulmonary vascular congestion. Interval improved aeration at the left lung base.
[2023-05-05] MEDS ORDERED: NITROGLYCERIN SL TABS 0.4 MG TAB SUBLINGUAL PRN (17:07)
[2023-05-05] MEDS: NITROGLYCERIN OINT 1 INCH/GM PACKET TOPICAL SCH ×2 (18:15→23:28)
[2023-05-05] MEDS ORDERED: SODIUM CHLORIDE 0.9% 1,000 ML IV STA (18:30)
--- NOTE | 2023-05-05 21:25 | P.HPIM ---
History of Present Illness This is a pleasant 57 years old male with multiple medical problems including history of recent non-STEMI about 2 months ago, he is status post 4 stents. Also patient's with progressive kidney disease started hemodialysis about 2 m onths ago as well. Presents today because of chest pain for the last 2 hours while he was at hemodialysis. Chest pain was about 9/10 in severity, it is in the central chest radiating to the neck of the left arm. [place] like the right.no precipitating factors but relieved by nitro. Patient denies dyspnea or coughing. No change in urine or bowel habits or fever. Patient has indwelling Garcia catheter and his postoperative follow-up with Dr. Devries tomorrow for bladder scan. He follows with Dr. Gomez for his dialysis. And his drapery installer Dr. Avendaño He has little headache Patient hemodynamically stable, he is mildly bradycardic but asymptomatic. His hemoglobin 9.6, platelet count 138, creatinine 2.2, d-dimer 1.2, lipase 315 other Labs were reviewed and they were unremarkable Chest x-ray is negative for acute process EKG showing sinus bradycardia at 52 CTA of the chest ordered emergency room still pending results Review of Systems Review of systems CONSTITUTIONAL: No fever, no malaise, no fatigue. HEENT: No recent visual problems or hearing problems. Denied any sore throat. CARDIOVASCULAR: No orthopnea, PND, no palpitations, no syncope. PULMONARY: No shortness of breath, no cough, no hemoptysis. GASTROINTESTINAL: No diarrhea, no nausea, no vomiting, no abdominal pain. Normoactive bowel sounds. NEUROLOGICAL: No headaches, no weakness, no numbness. HEMATOLOGICAL: Denies any bleeding or petechiae. GENITOURINARY: Denies any burning micturition, frequency, or urgency. MUSCULOSKELETAL/RHEUMATOLOGICAL: Denies any joint pain, swelling, or any muscle pain. ENDOCRINE: Denies any polyuria or polydipsia. Past Medical History Past Medical History: Coronary Artery Disease (CAD), CVA/TIA, Diabetes Mellitus, GERD/Reflux, Hyperlipidemia, Hypertension, Myocardial Infarction ([place]), Renal D isease, Rheumatoid Arthritis (RA) Additional Past Medical History / Comment(s): stroke apr 2017, migranes, diabetic neuropathy arms and legs, stage 3 kidney failure, PANCREATITIS, LEGALLY BLIND, enlarged prostate, trouble urinating Last Myocardial Infarction Date:: 2014 History of Any Multi-Drug Resistant Organisms: None Reported Past Surgical History: Cholecystectomy, Heart Catheterization With Stent, Heart Catheterization With Stent Additional Past Surgical History / Comment(s): Dialysis Port - 03/14/23. Prostrate surgery. HIATAL HERNIA REPAIR -January Past Anesthesia/Blood Transfusion Reactions: No Reported Reaction Additional Past Anesthesia/Blood Transfusion Reaction / Comment(s): never had anethesia Date of Last Stent Placement:: 2017 Past Psychological History: Anxiety, Depression Smoking Status: Never smoker Past Alcohol Use History: None Reported Past Drug Use History: None Reported - Past Family History Mother Family Medical History: CVA/TIA, Diabetes Mellitus, Hypertension Additional Family Medical History / Comment(s): Parkinson's Mother Father Family Medical History: CVA/TIA, Diabetes Mellitus, Myocardial Infarction ([place]) Additional Family Medical History / Comment(s): Father of a [place] in his 50s. Medications and Allergies Home Medications Medication Instructions Recorded Confirmed Type Pantoprazole [Protonix] 40 mg PO BID 11/05/17 05/05/23 History Tamsulosin [Flomax] 0.8 mg PO HS 11/05/17 05/05/23 History Citalopram Hydrobromide [CeleXA] 20 mg PO DAILY 12/12/18 05/05/23 History allopurinoL [Zyloprim] 100 mg PO DAILY 04/05/19 05/05/23 History Atorvastatin [Lipitor] 80 mg PO HS 12/30/19 05/05/23 History Isosorbide Mononitrate ER [Imdur] 60 mg PO DAILY 12/30/19 05/05/23 History Citalopram Hydrobromide [CeleXA] 40 mg PO DAILY 06/29/20 05/05/23 History Loratadine [Claritin] 10 mg PO DAILY 01/21/21 05/05/23 History Lurasidone [Latuda] 40 mg PO HS 06/20/22 05/05/23 History Ondansetron Odt [Zofran ODT] 4 mg PO BID PRN 06/20/22 05/05/23 History Triamcinolone 0.1% Cream [Kenalog 1 applic TOPICAL BID PRN 06/20/22 05/05/23 History 0.1% Cream] Darbepoetin Omari [Aranesp] 60 mcg SQ Q14D 01/30/23 05/05/23 History Docusate [Colace] 100 mg PO DAILY 01/30/23 05/05/23 History Aspirin [[place] Aspirin EC] 81 mg PO DAILY #30 tab 03/18/23 05/05/23 Rx Calcium Acetate [PhosLo] 667 mg PO TID-W/MEALS #90 tab 03/18/23 05/05/23 Rx Clopidogrel [Plavix] 75 mg PO HS #30 tab 03/18/23 05/05/23 Rx Insulin Detemir (Levemir) [Levemir] 10 unit SQ HS #10 ml 03/18/23 05/05/23 Rx NIFEdipine XL [Procardia XL] 30 mg PO DAILY 30 Days #30 tab 03/18/23 05/05/23 Rx Folic Acid/Vit B Complex and C 0.8 mg PO DAILY 05/05/23 05/05/23 History [Nephro-Cirilo Tablet] Furosemide [Lasix] 20 mg PO DAILY 05/05/23 05/05/23 History Gabapentin [Neurontin] 300 mg PO HS 05/05/23 05/05/23 History INSULIN ASPART (NovoLOG) [NovoLOG See Protocol SQ AC-TID 05/05/23 05/05/23 History (formulary)] Metoprolol Tartrate [Lopressor] 50 mg PO BID 05/05/23 05/05/23 History hydrALAZINE HCL [Apresoline] 25 mg PO TID 05/05/23 05/05/23 History Allergies Allergy/AdvReac Type Severity Reaction Status Date / Time Iodinated Contrast Media AdvReac Nausea & Verified 05/05/23 17:58 [Iodinated Contrast- Oral Vomiting and IV Dye] sucralfate AdvReac Nausea & Verified 05/05/23 17:58 Vomiting Physical Exam Vitals: Vital Signs Temp Pulse Resp BP Pulse Ox 05/05/23 15:07 98.1 F 52 L 18 137/82 100 Intake and Output 05/05/23 05/05/23 05/05/23 06:59 14:59 22:59 Other: Weight 77.111 kg GENERAL: The patient is alert and oriented x3, not in any acute distress. Well developed, well nourished. HEENT: Pupils are round and equally reacting to light. EOMI. No scleral icterus. No conjunctival pallor. Normocephalic, atraumatic. No pharyngeal erythema. No thyromegaly. CARDIOVASCULAR: S1 and S2 present. No murmurs, rubs, or gallops. PULMONARY: Chest is clear to auscultation, no wheezing , no crackles. -ABDOMEN: Soft, nontender, nondistended, normoactive bowel sounds. No palpable organomegaly. Indwelling Garcia catheter MUSCULOSKELETAL: No joint swelling or deformity. EXTREMITIES: No cyanosis, clubbing, or pedal edema. NEUROLOGICAL: Gross neurological examination did not reveal any focal deficits. SKIN: No rashes. no petechiae. Results CBC & Chem 7: 05/05/23 16:00 05/05/23 16:00 Labs: Abnormal Lab Results - Last 24 Hours (Table) 05/05/23 05/05/23 Range/Units 16:00 16:00 RBC 3.31 L (4.30-5.90) m/uL Hgb 9.6 L (13.0-17.5) gm/dL Hct 28.9 L (39.0-53.0) % RDW 16.2 H (11.5-15.5) % Plt Count 138 L (150-450) k/uL Potassium 3.3 L (3.5-5.1) mmol/L BUN 21 H (9-20) mg/dL Creatinine 2.22 H (0.66-1.25) mg/dL Glucose 106 H (74-99) mg/dL Calcium 8.2 L (8.4-10.2) mg/dL Lipase 315 H (23-300) U/L Assessment and Plan Assessment: Chest pain, rule out cardiac causes. Rule out pulmonary causes History of coronary artery disease status post stents 4 Coronary creatinine disease status post hemodialysis Diabetes mellitus Hypertension Chronic anemia and thrombocytopenia Asymptomatic sinus bradycardia Plan: Continue with aspirin and Plavix Follow-up CAT scan results done in the emergency room Cardiology consult [place] with hemodialysis her financial dealers Labs and medication were reviewed.. Continue same treatment. Continue with symptomatic treatment. Resume home medication. Monitor labs and vitals. DVT and GI prophylaxis. Further recommendations as per clinical course of the patient DVT prophylaxis: Subcutaneous heparin GI Prophylaxis: Ppi Prognosis is guarded
--- NOTE | 2023-05-05 21:52 | CT ---
EXAMINATION TYPE: CT angio chest CT DLP: 375 mGycm, Automated exposure control for dose reduction was used. DATE OF EXAM: 05/05/2023 7:54 PM COMPARISON: Same day 2V chest x-ray CLINICAL INDICATION:Male, 57 years old with history of cp; chest pain/ pressure, elevated d-dimer TECHNIQUE/CONTRAST: CTA scan of the thorax is performed with IV Contrast, patient injected with 68ML mL of Isovue 370, [place] P images are created and reviewed these are created on a separate workstation.. FINDINGS: Pulmonary Artery: There is no evidence for a filling defect within the pulmonary vasculature to sugge st acute pulmonary embolism. Pulmonary trunk is 3.6 cm, mildly enlarged. Lungs/Pleura: Dependent opacities in the bilateral lungs consistent with atelectasis. Possible trace pleural effusions. Airway: Large airways are patent. Heart: Heart appears mildly enlarged with moderate to heavy coronary arterial calcifications, mostly on the left. Vasculature: Mild/moderate atherosclerotic calcification of the aorta without evidence of aneurysm or dissection. Mediastinum: No adenopathy. Right IJ dialysis catheter with tip at the cavoatrial junction. Moderate sized hiatal hernia. Musculoskeletal: No definite acute bony abnormality. Degenerative changes. Soft Tissues: Unremarkable. Lower neck: No significant findings. Upper Abdomen: No acute normality. Surgical clips in the region of the GE junction. Cholecystectomy c lips.. IMPRESSION: 1. No evidence of pulmonary embolism. 2. Mildly enlarged pulmonary trunk, can be seen with pulmonary hypertension. 3. Atelectatic changes in the lung bases. Possible trace pleural effusions. 4. Other chronic and likely incidental findings, as described above.
[2023-05-05] MEDS: hydrALAZINE HCL 25 MG TAB PO SCH (22:11)
[2023-05-06] MEDS: NITROGLYCERIN OINT 1 INCH/GM PACKET TOPICAL SCH ×3 (05:28→18:00)
[2023-05-06 06:13] LABS: Glucose,Whole Blood 332 mg/dL (70-110)
[2023-05-06] MEDS ORDERED: ALPRAZolam 0.25 MG TAB PO PRN (08:28)
[2023-05-06] MEDS ORDERED: ALPRAZolam 0.5 MG TAB PO PRN (08:28)
[2023-05-06] MEDS ORDERED: NITROGLYCERIN SL TABS 0.4 MG TAB SUBLINGUAL PRN (08:28)
[2023-05-06] MEDS: DOCUSATE 100 MG CAP PO SCH (08:55)
[2023-05-06] MEDS: hydrALAZINE HCL 25 MG TAB PO SCH ×3 (08:55→22:15)
[2023-05-06] MEDS: CITALOPRAM HYDROBROMIDE 20 MG TAB PO SCH (08:55)
[2023-05-06] MEDS: allopurinoL 100 MG TAB PO SCH (08:55)
[2023-05-06] MEDS: METOPROLOL TARTRATE 50 MG TAB PO SCH ×2 (08:55→22:15)
[2023-05-06] MEDS: PANTOPRAZOLE 40 MG TABLET PO SCH ×2 (08:55→22:17)
[2023-05-06] MEDS: HEPARIN SODIUM,PORCINE 5,000 UNIT/ML 1 ML VIAL SQ SCH ×2 (08:55→22:14)
[2023-05-06 08:56] LABS: LDL Cholesterol,Calculated 38.8 mg/dL (0.0-131.0); VLDL Calculation 13.32 mg/dL (5.00-40.00)
[2023-05-06] MEDS: CALCIUM ACETATE 667 MG TAB PO SCH ×3 (08:56→16:33)
[2023-05-06] MEDS: ASPIRIN 325 MG TAB PO SCH (08:56)
[2023-05-06] MEDS ORDERED: FUROSEMIDE 20 MG TAB PO SCH (09:00)
[2023-05-06] MEDS ORDERED: NON FORMULARY DRUG (Citalopram Hydrobromide [Celexa] 40 MG Tablet) PO SCH (09:00)
[2023-05-06] MEDS ORDERED: DARBEPOETIN ALFA 60 MCG/0.3 ML SYRINGE SQ SCH (09:00)
[2023-05-06] MEDS ORDERED: NIFEdipine XL 30 MG TAB.ER.24 PO SCH (09:00)
[2023-05-06] MEDS ORDERED: DEXTROSE 50% SYRINGE 50 ML IVP PRN ×2 (09:10)
[2023-05-06] MEDS ORDERED: INSULIN ASPART (NovoLOG) 100 UNIT/ML VIAL SQ ONE (09:11)
[2023-05-06 10:56] LABS: Phosphorus 3.5 mg/dL (2.4-5.1); Potassium 4.6 mmol/L (3.5-5.5)
--- NOTE | 2023-05-06 12:12 | P.NPCON ---
History of Present Illness - Reason for Consult end stage renal disease - History of Present Illness Reason for consultation: End-stage renal disease History of present illness: Patient is a 57-year-old male seen in renal consultation for end-stage renal disease. He is maintained on hemodialysis on Thursday schedule via permacath. Patient at 2 hours of dialysis yesterday and developed chest pain. Patient describes the pain as sharp in the middle of his chest. Patient has prior history of coronary artery disease multiple cardiac stenting. Patient was subsequently sent to the hospital for further evaluation. Currently patient has no complaints. Patient has long-standing history of diabetes. Patient has chronic Garcia catheter and does make urine. Cardiology has been consulted chest CTA done in the ER showed no evidence of pulmonary embolism. Scheduled for cardiac catheterization tomorrow. no vomiting or diarrhea. No fever or chills. Vital signs are stable. General: No acute distress. HEENT: Head exam is unremarkable. LUNGS: No audible rhonchi or wheezes. HEART: Rate and Rhythm are regular. ABDOMEN: Nontender. EXTREMITITES: No edema. Past Medical History Past Medical History: Coronary Artery Disease (CAD), CVA/TIA, Diabetes Mellitus, GERD/Reflux, Hyperlipidemia, Hypertension, Myocardial Infarction ([place]), Renal Disease, Rheumatoid Arthritis (RA) Additional Past Medical History / Comment(s): stroke apr 2017, migranes, diabetic neuropathy arms and legs, stage 3 kidney failure, PANCREATITIS, LEGALLY BLIND, enlarged prostate, trouble urinating Last Myocardial Infarction Date:: 2014 History of Any Multi-Drug Resistant Organisms: None Reported Past Surgical History: Cholecystectomy, Heart Catheterization With Stent, Heart Catheterization With Stent Additional Past Surgical History / Comment(s): Dialysis Port - 03/14/23. Prostrate surgery. HIATAL HERNIA REPAIR -January Past Anesthesia/Blood Transfusion Reactions: No Reported Reaction Additional Past Anesthesia/Blood Transfusion Reaction / Comment(s): never had anethesia Date of Last Stent Placement:: 2017 Past Psychological History: Anxiety, Depression Smoking Status: Never smoker Past Alcohol Use History: None Reported Past Drug Use History: None Reported - Past Family History Mother Family Medical History: CVA/TIA, Diabetes Mellitus, Hypertension Additional Family Medical History / Comment(s): Parkinson's Mother Father Family Medical History: CVA/TIA, Diabetes Mellitus, Myocardial Infarction ([place]) Additional Family Medical History / Comment(s): Father of a [place] in his 50s. Medications and Allergies Home Medications Medication Instructions Recorded Confirmed Type Pantoprazole [Protonix] 40 mg PO BID 11/05/17 05/05/23 History Tamsulosin [Flomax] 0.8 mg PO HS 11/05/17 05/05/23 History Citalopram Hydrobromide [CeleXA] 20 mg PO DAILY 12/12/18 05/05/23 History allopurinoL [Zyloprim] 100 mg PO DAILY 04/05/19 05/05/23 History Atorvastatin [Lipitor] 80 mg PO HS 12/30/19 05/05/23 History Isosorbide Mononitrate ER [Imdur] 60 mg PO DAILY 12/30/19 05/05/23 History Citalopram Hydrobromide [CeleXA] 40 mg PO DAILY 06/29/20 05/05/23 History Loratadine [Claritin] 10 mg PO DAILY 01/21/21 05/05/23 History Lurasidone [Latuda] 40 mg PO HS 06/20/22 05/05/23 History Ondansetron Odt [Zofran ODT] 4 mg PO BID PRN 06/20/22 05/05/23 History Triamcinolone 0.1% Cream [Kenalog 1 applic TOPICAL BID PRN 06/20/22 05/05/23 History 0.1% Cream] Darbepoetin Omari [Aranesp] 60 mcg SQ Q14D 01/30/23 05/05/23 History Docusate [Colace] 100 mg PO DAILY 01/30/23 05/05/23 History Aspirin [Bureau Aspirin EC] 81 mg PO DAILY #30 tab 03/18/23 05/05/23 Rx Calcium Acetate [PhosLo] 667 mg PO TID-W/MEALS #90 tab 03/18/23 05/05/23 Rx Clopidogrel [Plavix] 75 mg PO HS #30 tab 03/18/23 05/05/23 Rx Insulin Detemir (Levemir) [Levemir] 10 unit SQ HS #10 ml 03/18/23 05/05/23 Rx NIFEdipine XL [Procardia XL] 30 mg PO DAILY 30 Days #30 tab 03/18/23 05/05/23 Rx Folic Acid/Vit B Complex and C 0.8 mg PO DAILY 05/05/23 05/05/23 History [Nephro-Cirilo Tablet] Furosemide [Lasix] 20 mg PO DAILY 05/05/23 05/05/23 History Gabapentin [Neurontin] 300 mg PO HS 05/05/23 05/05/23 History INSULIN ASPART (NovoLOG) [NovoLOG See Protocol SQ AC-TID 05/05/23 05/05/23 History (formulary)] Metoprolol Tartrate [Lopressor] 50 mg PO BID 05/05/23 05/05/23 History hydrALAZINE HCL [Apresoline] 25 mg PO TID 05/05/23 05/05/23 History Allergies Allergy/AdvReac Type Severity Reaction Status Date / Time Iodinated Contrast Media AdvReac Nausea & Verified 05/05/23 17:58 [Iodinated Contrast- Oral Vomiting and IV Dye] sucralfate AdvReac Nausea & Verified 05/05/23 17:58 Vomiting Physical Exam Vitals: Vital Signs Temp Pulse Pulse Resp BP BP Pulse Ox 05/06/23 11:06 61 98 05/06/23 08:00 16 05/06/23 07:00 98.7 F 60 16 163/75 99 05/06/23 06:02 98.3 F 62 18 162/79 98 05/05/23 21:07 97.6 F 58 L 17 154/73 99 05/05/23 20:00 98.6 F 53 L 18 134/75 99 05/05/23 18:14 48 L 15 118/67 100 05/05/23 17:14 50 L 16 119/63 100 05/05/23 15:07 98.1 F 52 L 18 137/82 100 Intake and Output 05/05/23 05/06/23 05/06/23 22:59 06:59 14:59 Intake Total 360 Output Total 450 Balance -450 360 Intake: Oral 360 Output: Urine 450 Other: Voiding Method Indwelling Catheter Indwelling Catheter Indwelling Catheter Weight 77.111 kg Results - Lab Results Most recent lab results Calcium 8.2 mg/dL (8.4-10.2) L 05/05/23 16:00 Phosphorus 3.5 mg/dL (2.4-5.1) 05/06/23 05:58 Magnesium 1.7 mg/dL (1.6-2.3) 05/05/23 16:00 05/05/23 16:00 05/06/23 05:58 Assessment and Plan Plan: Assessment: 1. End-stage renal disease maintained on hemodialysis on Thursday schedule via permacath. 2. Chest pain, rule out acute coronary syndrome. Cardiac catheterization tomorrow. 3. History of coronary disease with cardiac stents. 4. Diabetes mellitus. 5. Volume overload. 6. Chronic kidney disease mineral bone disease maintained on PhosLo. 7. Anemia of chronic kidney disease maintained on Aranesp. 8. Hypertension with chronic kidney disease. Plan: Short hemodialysis treatment today and another treatment tomorrow per his outpatient schedule. Increase dose of Lasix to 80 mg once daily. Increase nifedipine frequency to twice a day. Hold for systolic blood pressure less than 120. Check phosphorus level. Check iron studies. Thank you for the consultation. I will continue to follow the patient with you during his hospital stay.
[2023-05-06 12:33] LABS: Glucose,Whole Blood 325 mg/dL (70-110)
[2023-05-06] MEDS: INSULIN ASPART (NovoLOG) 100 UNIT/ML VIAL SQ SCH ×3 (13:24→22:04)
[2023-05-06 14:28] LABS: Phosphorus 4.7 mg/dL (2.5-4.5)
[2023-05-06 17:14] LABS: Glucose,Whole Blood 227 mg/dL (70-110)
[2023-05-06 21:10] LABS: Glucose,Whole Blood 148 mg/dL (70-110)
--- NOTE | 2023-05-06 21:31 | CONS ---
CONSULTATION HISTORY OF PRESENT ILLNESS: Kashmir Tinajero is a 57-year-old gentleman with diabetes with chronic kidney disease, end- stage renal disease, who was recently started on hemodialysis by the coffee maker, Dr. Gomez for the last 2 months. He also has CAD, hypertension, hyperlipidemia, and underwent multivessel PCI. PCI of the circumflex was performed in October 2017 and in November 2017, I performed mid LAD PCI. Both of these vessels were open without significant restenosis and in 2018 by the cardiac cath in January. Since then, the patient has done well. He also had a stress test in the office in January of last year which revealed inferior wall fixed defect with mild intensity with mild hypokinesia suggestive of prior IN, but no reversible defect to indicate ischemia. Ejection fraction of 45% to 50%. He was advised to pursue medical therapy, but he came into the hospital with episode of chest pain suggestive of angina. Troponins are unremarkable. The patient had pain with mild activity. I am concerned that he may have progression of disease and therefore, I am recommending cardiac catheterization. The rationale, risks, benefits, options for the procedure were explained. Procedure will be performed from right femoral approach. The patient is on dialysis. Three sets of troponins were unremarkable. EKG revealed nonspecific ST and T-wave changes with LVH type picture. Mild IVCD. PAST MEDICAL HISTORY: 1. Multivessel PCI in October and November of 2017 involving circumflex and LAD with patency documented in January 2019. 2. Diabetes with end-stage renal disease on hemodialysis. 3. Hypertension. 4. Hyperlipidemia. MEDICATIONS: Medications at home include, 1. Metoprolol tartrate 50 mg b.i.d. 2. Flomax. 3. Protonix. 4. Nifedipine 30 mg daily. 5. Lasix 20 mg daily. 6. Colace. 7. Loratadine. 8. Imdur 60 mg daily. 9. Atorvastatin 80 mg daily. The patient is on hemodialysis from the right subclavian approach. PHYSICAL EXAMINATION: VITAL SIGNS: On examination, blood pressure is 160/70, pulse rate is about 64 per minute. HEENT: Unremarkable. Fundus was not examined by me. NECK: Supple. There is JVD of 1 cm. No carotid bruit. HEART: Reveals S1, S2 heard normally. Short systolic murmur at the base. Second heart sound is preserved. LUNGS: Reveal bilateral decent air entry. ABDOMEN: Soft. MUSCULOSKELETAL: Lower extremities reveal diminished pulses. CENTRAL NERVOUS SYSTEM: Normal. IMPRESSION: 1. Unstable angina with a known 2-vessel PCI in the past. 2. End-stage renal disease on hemodialysis. 3. Hypertension. 4. Diabetes. 5. Hyperlipidemia. RECOMMENDATIONS: I am recommending that we continue current medical regimen including heparin and will perform cardiac catheterization from right femoral approach and based on findings intervention. The rationale, risks, benefits, options were explained. The patient understands all details and wishes to proceed with the procedure. MMODL / IJN: [id number] /
[2023-05-06 21:56] LABS: % Iron Saturation 36.36 (15.00-50.00)
[2023-05-06] MEDS: ATORVASTATIN 80 MG TAB PO SCH (22:14)
[2023-05-06] MEDS: NIFEdipine XL 30 MG TAB.ER.24 PO SCH (22:14)
[2023-05-06] MEDS: TAMSULOSIN 0.4 MG CAP.ER.24H PO SCH (22:15)
[2023-05-06] MEDS: CLOPIDOGREL 75 MG TAB PO SCH (22:16)
[2023-05-06] MEDS: GABAPENTIN 300 MG CAP PO SCH (22:16)
[2023-05-06] MEDS: INSULIN DETEMIR (LEVEMIR) 100 UNIT/ML SYR SQ SCH (22:17)
[2023-05-06] MEDS: LURASIDONE 40 MG TAB PO SCH (22:32)
[2023-05-06 23:06] LABS: Hepatitis B Surface AB- Quant 3.5 mIU/mL
[2023-05-07] MEDS: NITROGLYCERIN OINT 1 INCH/GM PACKET TOPICAL SCH ×3 (00:46→11:44)
[2023-05-07] MEDS: INSULIN ASPART (NovoLOG) 100 UNIT/ML VIAL SQ SCH ×4 (05:13→21:22)
[2023-05-07] MEDS: ASPIRIN 325 MG TAB PO SCH (05:15)
[2023-05-07] MEDS ORDERED: ATORVASTATIN 80 MG TAB PO ONE (06:00)
[2023-05-07] MEDS ORDERED: ASPIRIN 325 MG TAB PO ONE (06:00)
[2023-05-07 06:13] LABS: Glucose,Whole Blood 154 mg/dL (70-110)
--- NOTE | 2023-05-07 06:40 | P.PN ---
Subjective This is a pleasant 57 years old male with multiple medical problems including history of recent non-STEMI about 2 months ago, he is status post 4 stents. Also patient's with progressive kidney disease started hemodialysis about 2 months ago as well. Presents today because of chest pain for the last 2 hours while he was at hemodialysis. Chest pain was about 9/10 in severity, it is in the central chest radiating to the neck of the left arm. [place] like the right.no precipitating factors but relieved by nitro. Patient denies dyspnea or coughing. No change in urine or bowel habits or fever. Patient has indwelling Garcia catheter and his postoperative follow-up with Dr. Devries tomorrow for bladder scan. He follows with Dr. Gomez for his dialysis. And his sander portable machine Dr. Avendaño He has little headache Patient hemodynamically stable, he is mildly bradycardic but asymptomatic. His hemoglobin 9.6, platelet count 138, creatinine 2.2, d-dimer 1.2, lipase 315 other Labs were reviewed and they were unremarkable Chest x-ray is negative for acute process EKG showing sinus bradycardia at 52 CTA of the chest ordered emergency room still pending results 05/06/2023 Patient presents with chest pain which is now feels little better. He is resting in bed comfortably. He has chronic indwelling catheter and undergoing dialysis I discussed the case with sander portable machine team and plan for cardiac cath tomorrow Patient is at acceptable risk to proceed with cardiac cath from medical perspective Objective - Vital Signs Vital signs: Vital Signs Temp 98.7 F 05/06/23 07:00 Pulse 61 05/06/23 11:06 Resp 16 05/06/23 08:00 BP 163/75 05/06/23 07:00 Pulse Ox 98 05/06/23 11:06 FiO2 Intake & Output 05/05/23 05/06/23 05/06/23 18:59 06:59 18:59 Intake Total 360 Output Total 450 Balance -450 360 Weight 77.111 kg Intake: Oral 360 Output: Urine 450 Other: Voiding Method Indwelling Catheter Indwelling Catheter - Exam GENERAL: The patient is alert and oriented x3, not in any acute distress. Well developed, well nourished. HEENT: Pupils are round and equally reacting to light. EOMI. No scleral icterus. No conjunctival pallor. Normocephalic, atraumatic. No pharyngeal erythema. No thyromegaly. CARDIOVASCULAR: S1 and S2 present. No murmurs, rubs, or gallops. PULMONARY: Chest is clear to auscultation, no wheezing , no crackles. -ABDOMEN: Soft, nontender, nondistended, normoactive bowel sounds. No palpable organomegaly. Indwelling Garcia catheter MUSCULOSKELETAL: No joint swelling or deformity. EXTREMITIES: No cyanosis, clubbing, or pedal edema. NEUROLOGICAL: Gross neurological examination did not reveal any focal deficits. SKIN: No rashes. no petechiae. - Labs CBC & Chem 7: 05/05/23 16:00 05/06/23 05:58 Labs: Abnormal Lab Results - Last 24 Hours (Table) 05/05/23 05/05/23 05/05/23 Range/Units 16:00 16:00 16:00 RBC 3.31 L (4.30-5.90) m/uL Hgb 9.6 L (13.0-17.5) gm/dL Hct 28.9 L (39.0-53.0) % RDW 16.2 H (11.5-15.5) % Plt Count 138 L (150-450) k/uL APTT 30.1 H (22.0-30.0) sec D-Dimer 1.21 H (<0.60) mg/L FEU Potassium 3.3 L (3.5-5.1) mmol/L BUN 21 H (9-20) mg/dL Creatinine 2.22 H (0.66-1.25) mg/dL Glucose 106 H (74-99) mg/dL POC Glucose (mg/dL) (70-110) mg/dL Calcium 8.2 L (8.4-10.2) mg/dL Lipase 315 H (23-300) U/L 05/06/23 05/06/23 Range/Units 06:11 12:30 RBC (4.30-5.90) m/uL Hgb (13.0-17.5) gm/dL Hct (39.0-53.0) % RDW (11.5-15.5) % Plt Count (150-450) k/uL APTT (22.0-30.0) sec D-Dimer (<0.60) mg/L FEU Potassium (3.5-5.1) mmol/L BUN (9-20) mg/dL Creatinine (0.66-1.25) mg/dL Glucose (74-99) mg/dL POC Glucose (mg/dL) 332 H 325 H (70-110) mg/dL Calcium (8.4-10.2) mg/dL Lipase (23-300) U/L Assessment and Plan Assessment: Chest pain, rule out cardiac causes. Planned for cardiac cath History of coronary artery disease status post stents 4 Chronic kidney disease status post hemodialysis Diabetes mellitus Hypertension Chronic anemia and thrombocytopenia Asymptomatic sinus bradycardia Plan: Continue with aspirin and Plavix continue with heparin drip cardiac cath with cardiology team tomorrow. Patient is at acceptable risk to proceed with cardiac cath Continue with hemodialysis per hand chain maker Labs and medication were reviewed.. Continue same treatment. Continue with symptomatic treatment. Resume home medication. Monitor labs and vitals. DVT and GI prophylaxis. Further recommendations as per clinical course of the patient DVT prophylaxis: Subcutaneous heparin GI Prophylaxis: Ppi Prognosis is guarded
[2023-05-07] MEDS ORDERED: HEPARIN SODIUM,PORCINE 10,000 UNIT in SODIUM CHLORIDE 0.9% 1,000 ML IRRIGATION PRN (07:00)
[2023-05-07] MEDS ORDERED: HEPARIN SODIUM,PORCINE (1 ML) 2,500 UNIT in SODIUM CHLORIDE 0.9% 250 ML IRRIGATION PRN (07:00)
[2023-05-07] MEDS: SODIUM CHLORIDE 0.9% 1,000 ML IV SCH (08:20)
[2023-05-07] MEDS: METOPROLOL TARTRATE 50 MG TAB PO SCH ×2 (08:20→21:23)
[2023-05-07] MEDS: allopurinoL 100 MG TAB PO SCH (08:20)
[2023-05-07] MEDS: CITALOPRAM HYDROBROMIDE 20 MG TAB PO SCH (08:20)
[2023-05-07] MEDS: hydrALAZINE HCL 25 MG TAB PO SCH ×3 (08:21→21:23)
[2023-05-07] MEDS: FUROSEMIDE 40 MG TAB PO SCH (08:21)
[2023-05-07] MEDS: DOCUSATE 100 MG CAP PO SCH (08:21)
[2023-05-07] MEDS: PANTOPRAZOLE 40 MG TABLET PO SCH ×2 (08:21→21:23)
[2023-05-07] MEDS: CALCIUM ACETATE 667 MG TAB PO SCH ×3 (08:22→18:06)
[2023-05-07] MEDS: NIFEdipine XL 30 MG TAB.ER.24 PO SCH ×2 (08:22→21:24)
[2023-05-07] MEDS: HEPARIN SODIUM,PORCINE 5,000 UNIT/ML 1 ML VIAL SQ SCH ×2 (08:46→21:22)
[2023-05-07] MEDS ORDERED: VERAPAMIL 2.5 MG/ML 2 ML AMP ONE (10:07)
[2023-05-07] MEDS ORDERED: LIDOCAINE 1% INJ 10MG/ML (20 ML MDV) ONE (10:07)
[2023-05-07] MEDS ORDERED: HEPARIN SODIUM 1,000 UN/ML (10ML VL) ONE (10:36)
[2023-05-07] MEDS ORDERED: diphenhydrAMINE 50 MG/ML 1 ML VIAL ONE (10:41)
[2023-05-07] MEDS ORDERED: methylPREDNISolone SOD SUCCI 125 MG/2 ML VIAL ONE (10:41)
[2023-05-07] MEDS ORDERED: diphenhydrAMINE 50 MG/ML 1 ML VIAL IVP ONE (10:47)
[2023-05-07] MEDS ORDERED: SODIUM CHLORIDE 0.9% 1,000 ML IV ONE (10:48)
[2023-05-07] MEDS ORDERED: methylPREDNISolone SOD SUCCI 125 MG/2 ML VIAL IVP ONE (10:48)
[2023-05-07] MEDS ORDERED: MIDAZOLAM 2 MG/2 ML VIAL IVP ONE ×2 (10:52→11:22)
[2023-05-07] MEDS ORDERED: LIDOCAINE 1% INJ 10MG/ML (20 ML MDV) SQ ONE (11:00)
[2023-05-07] MEDS ORDERED: HEPARIN SODIUM 1,000 UN/ML (10ML VL) IVP ONE (11:19)
[2023-05-07] MEDS ORDERED: IOPAMIDOL-370 100ML BTL INJ ONE ×2 (11:38→12:08)
[2023-05-07] MEDS ORDERED: NITROGLYCERIN 1000MCG/10ML SYRINGE INTRACORON ONE ×3 (11:45→12:00)
[2023-05-07] MEDS ORDERED: CLOPIDOGREL 75 MG TAB ONE (11:46)
[2023-05-07] MEDS ORDERED: amLODIPine 5 MG TAB PO STA (12:03)
[2023-05-07] MEDS ORDERED: CLOPIDOGREL 75 MG TAB PO ONE (12:08)
[2023-05-07] MEDS ORDERED: ZOLPIDEM 5 MG TAB PO PRN (12:17)
[2023-05-07] MEDS ORDERED: MAG HYDROX/AL HYDROX/SIMETH 30 ML CUP PO PRN (12:17)
[2023-05-07] MEDS ORDERED: ATROPINE SULFATE 0.1 MG/ML 10ML SYRINGE IV PRN (12:17)
[2023-05-07] MEDS ORDERED: RX INFO: IV CONTRAST WAS GIVEN 1 EACH MISC MISCELLANE PRN (12:17)
--- NOTE | 2023-05-07 12:18 | P.PN ---
Subjective Patient is seen in follow-up for end-stage renal disease. He is maintained on hemodialysis on Thursday schedule. Scheduled for dialysis today. Also scheduled for cardiac catheterization today. No active chest pain or shortness of breath. Vital signs are stable. General: No acute distress. HEENT: Head exam is unremarkable. LUNGS: No audible rhonchi or wheezes. HEART: Rate and Rhythm are regular. ABDOMEN: Nontender. EXTREMITITES: No edema. Objective - Vital Signs Vital signs: Vital Signs Temp 98.2 F 05/07/23 07:00 Pulse 57 L 05/07/23 07:00 Resp 18 05/07/23 08:00 BP 152/75 05/07/23 07:00 Pulse Ox 98 05/07/23 07:00 FiO2 Intake & Output 05/06/23 05/07/23 05/07/23 18:59 06:59 18:59 Intake Total 838 400 75 Output Total 240 3200 Balance 598 -2800 75 Intake: IV 75 Oral 838 Hemodialysis 400 Output: Urine 240 900 Hemodialysis 2300 Other: Voiding Method Indwelling Catheter Indwelling Catheter Indwelling Catheter # Voids 1 - Labs CBC & Chem 7: 05/05/23 16:00 05/06/23 05:58 Labs: Abnormal Lab Results - Last 24 Hours (Table) 05/06/23 05/06/23 05/06/23 Range/Units 12:30 12:30 17:13 POC Glucose (mg/dL) 325 H 227 H (70-110) mg/dL Hemoglobin A1c (<=6.0) % Phosphorus 4.7 H (2.5-4.5) mg/dL Transferrin 165.0 L (204.0-354.0) mg/dL Ferritin 963.0 H (22.0-322.0) ng/mL 05/06/23 05/07/23 05/07/23 Range/Units 21:08 05:52 06:11 POC Glucose (mg/dL) 148 H 154 H (70-110) mg/dL Hemoglobin A1c 6.6 H (<=6.0) % Phosphorus (2.5-4.5) mg/dL Transferrin (204.0-354.0) mg/dL Ferritin (22.0-322.0) ng/mL Microbiology - Last 24 Hours (Table) 05/06/23 05:30 Urine Culture - Preliminary Urine,Catheterized Yeast Assessment and Plan Plan: Assessment: 1. End-stage renal disease maintained on hemodialysis on Thursday schedule via permacath. 2. Chest pain, rule out acute coronary syndrome. Cardiac catheterization today. 3. History of coronary disease with cardiac stents. 4. Diabetes mellitus. 5. Volume overload. Improved with ultrafiltration. 6. Chronic kidney disease mineral bone disease maintained on PhosLo. Phosphorus level 4.7 dated 05/06/2023. 7. Anemia of chronic kidney disease maintained on Aranesp. Iron replete. 8. Hypertension with chronic kidney disease. Plan: Hep-Lock IV fluids. Hemodialysis today. Maintain Lasix. Increase hydralazine dose to 50 mg.
[2023-05-07 12:29] LABS: Glucose,Whole Blood 176 mg/dL (70-110)
[2023-05-07 14:02] VITALS: BMI 25.1
[2023-05-07 17:45] LABS: Glucose,Whole Blood 323 mg/dL (70-110)
[2023-05-07 20:05] LABS: Glucose,Whole Blood 296 mg/dL (70-110)
[2023-05-07] MEDS: INSULIN DETEMIR (LEVEMIR) 100 UNIT/ML SYR SQ SCH (21:22)
[2023-05-07] MEDS: TAMSULOSIN 0.4 MG CAP.ER.24H PO SCH (21:23)
[2023-05-07] MEDS: CLOPIDOGREL 75 MG TAB PO SCH (21:23)
[2023-05-07] MEDS: ATORVASTATIN 80 MG TAB PO SCH (21:23)
[2023-05-07] MEDS: GABAPENTIN 300 MG CAP PO SCH (21:23)
[2023-05-07] MEDS: LURASIDONE 40 MG TAB PO SCH (21:24)
--- NOTE | 2023-05-07 22:49 | P.PN ---
Subjective This is a pleasant 57 years old male with multiple medical problems including history of recent non-STEMI about 2 months ago, he is status post 4 stents. Also patient's with progressive kidney disease started hemodialysis about 2 months ago as well. Presents today because of chest pain for the last 2 hours while he was at hemodialysis. Chest pain was about 9/10 in severity, it is in the central chest radiating to the neck of the left arm. [place] like the right.no precipitating factors but relieved by nitro. Patient denies dyspnea or coughing. No change in urine or bowel habits or fever. Patient has indwelling Garcia catheter and his postoperative follow-up with Dr. Devries tomorrow for bladder scan. He follows with Dr. Gomez for his dialysis. And his sorter laundry articles Dr. Avendaño He has little headache Patient hemodynamically stable, he is mildly bradycardic but asymptomatic. His hemoglobin 9.6, platelet count 138, creatinine 2.2, d-dimer 1.2, lipase 315 other Labs were reviewed and they were unremarkable Chest x-ray is negative for acute process EKG showing sinus bradycardia at 52 CTA of the chest ordered emergency room still pending results 05/06/2023 Patient presents with chest pain which is now feels little better. He is resting in bed comfortably. He has chronic indwelling catheter and undergoing dialysis I discussed the case with sorter laundry articles team and plan for cardiac cath tomorrow Patient is at acceptable risk to proceed with cardiac cath from medical perspective 05/07/2023 patient clinically doing well, is lying in bed relaxed comfortable with no or minimal chest pain Plan for cardiac cath by cardiology team Continue with dialysis per nephrology team CTA was negative for pulmonary embolism Possible discharge in 24-48 hours if cleared by cardiology team Objective - Vital Signs Vital signs: Vital Signs Temp 98.2 F 05/07/23 07:00 Pulse 57 L 05/07/23 07:00 Resp 18 05/07/23 07:00 BP 152/75 05/07/23 07:00 Pulse Ox 98 05/07/23 07:00 FiO2 Intake & Output 05/06/23 05/07/23 05/07/23 18:59 06:59 18:59 Intake Total 838 400 Output Total 240 3200 Balance 598 -2800 Intake: Oral 838 Hemodialysis 400 Output: Urine 240 900 Hemodialysis 2300 Other: Voiding Method Indwelling Catheter Indwelling Catheter # Voids 1 - Exam GENERAL: The patient is alert and oriented x3, not in any acute distress. Well developed, well nourished. HEENT: Pupils are round and equally reacting to light. EOMI. No scleral icterus. No conjunctival pallor. Normocephalic, atraumatic. No pharyngeal erythema. No thyromegaly. CARDIOVASCULAR: S1 and S2 present. No murmurs, rubs, or gallops. PULMONARY: Chest is clear to auscultation, no wheezing , no crackles. -ABDOMEN: Soft, nontender, nondistended, normoactive bowel sounds. No palpable organomegaly. Indwelling Garcia catheter MUSCULOSKELETAL: No joint swelling or deformity. EXTREMITIES: No cyanosis, clubbing, or pedal edema. NEUROLOGICAL: Gross neurological examination did not reveal any focal deficits. SKIN: No rashes. no petechiae. - Labs CBC & Chem 7: 05/05/23 16:00 05/06/23 05:58 Labs: Abnormal Lab Results - Last 24 Hours (Table) 05/06/23 05/06/23 05/06/23 Range/Units 12:30 12:30 17:13 POC Glucose (mg/dL) 325 H 227 H (70-110) mg/dL Hemoglobin A1c (<=6.0) % Phosphorus 4.7 H (2.5-4.5) mg/dL Transferrin 165.0 L (204.0-354.0) mg/dL Ferritin 963.0 H (22.0-322.0) ng/mL 05/06/23 05/07/23 05/07/23 Range/Units 21:08 05:52 06:11 POC Glucose (mg/dL) 148 H 154 H (70-110) mg/dL Hemoglobin A1c 6.6 H (<=6.0) % Phosphorus (2.5-4.5) mg/dL Transferrin (204.0-354.0) mg/dL Ferritin (22.0-322.0) ng/mL Assessment and Plan Assessment: Chest pain, rule out cardiac causes. Planned for cardiac cath History of coronary artery disease status post stents 4 Chronic kidney disease status post hemodialysis Diabetes mellitus Hypertension Chronic anemia and thrombocytopenia Asymptomatic sinus bradycardia Plan: Continue with aspirin and Plavix continue with heparin drip cardiac cath with cardiology team tomorrow. Patient is at acceptable risk to proceed with cardiac cath Continue with hemodialysis per electric engine mechanic Labs and medication were reviewed.. Continue same treatment. Continue with symptomatic treatment. Resume home medication. Monitor labs and vitals. DVT and GI prophylaxis. Further recommendations as per clinical course of the patient DVT prophylaxis: Subcutaneous heparin GI Prophylaxis: Ppi Prognosis is guarded
--- NOTE | 2023-05-07 23:58 | CC ---
CARDIAC CATHETERIZATION REPORT PROCEDURES PERFORMED: 1. Left heart catheterization and coronary angiography. 2. Percutaneous transluminal coronary angioplasty and stenting of proximal LAD with a drug-eluting stent and percutaneous transluminal coronary angioplasty of distal LAD with a noncompliant balloon. 3. Shockwave lithotripsy of LAD calcified lesion. 4. Intravascular ultrasound of LAD. PERFORMED BY: Dr. Guerrero Avendaño. ANESTHESIA: Moderate conscious sedation, 66 minutes. The patient was administered Versed. Oxygen saturation, hemodynamics and EKG were monitored closely. CLINICAL INFORMATION: Mr. Kashmir Tinajero is a 57-year-old gentleman with a history of diabetes, end-stage renal disease on hemodialysis that was started recently about 2 months ago. He has hypertension, hyperlipidemia, diabetes, and CAD. In 2017, October and November respectively, he had stenting of circumflex and LAD performed by me. In 2019, about a year later, his vessels were patent. He has known RCA occlusion and RCA is a codominant vessel. Circumflex is a fairly good caliber vessel. He came into the hospital with symptoms strongly suggestive of angina. Troponins were negative, but given his presentation, he was advised cardiac cath and intervention as appropriate. He had dialysis yesterday. PROCEDURE NOTE: Under local anesthesia and strict aseptic precautions, a 6-Kyrgyz introducer was placed in the right femoral artery. Using standard Anny catheters, I performed coronary angiography and I also used a same right catheter to check LV pressure, but LV- gram was not performed. Following this, I noted that he had a significant lesion in the proximal LAD before the previously placed mid LAD stent which was widely patent. I performed intervention of this and then following the intervention, I secured hemostasis with the Angio-Seal device and he was sent to the room in stable condition. The patient tolerated the procedure well without complication. His ACT was about 283. He received 5500 units of heparin. He also received 300 mg of Plavix. He was already on Plavix and aspirin. He will be on aspirin, Plavix without interruption for 1 year. Results were discussed with the patient and I also spoke to his , Lucia by phone. CARDIAC CATHETERIZATION FINDINGS: The left ventricular end-diastolic pressure was about 12 mmHg without any gradient across aortic valve. CORONARY ANGIOGRAPHY FINDINGS: 1. Right coronary artery : Right coronary artery is totally occluded with limited antegrade flow and a codominant vessel, unchanged from previous angiogram from 2019. 2. Left main coronary artery: Short patent vessel that immediately bifurcates no significant disease. 3. Left anterior descending coronary artery: Fair caliber vessel. Proximal LAD has significant calcification, eccentric 90% stenosis and then gives off septal and diagonal branch and after the diagonal branch, there is a mid LAD stent that is widely patent with good flow. Distal one-third of the LAD is diffusely diseased and there is significant progression of disease compared to 2019. 4. Left posterior circumflex coronary artery: Codominant vessel, good caliber. The stented segment in the midportion is widely patent. The PDA branch has minor irregularities, no significant disease. Approximately 2 small obtuse marginals are also free of significant disease. FINAL IMPRESSION: This patient has a codominant system, totally occluded RCA, widely patent circumflex that was stented. Mid LAD also at the site of stenting is widely patent, but he has significant disease of the proximal LAD 95% with heavy calcification and distal LAD one- fourth of which is diffuse disease such as progression of disease. LV-gram was not performed. RECOMMENDATIONS: I advised PCI of LAD that was performed expeditiously. PCI PROCEDURE DETAILS: I used a standard left Anny guide catheter to cannulate the left coronary artery. A Run-through wire was used to cross the lesion. I performed predilatation with a 15 mm long NC Trek balloon of 3.0 caliber for 20 seconds at 12 atmospheres. Multiple inflations were given. The lesion also seemed to extend beyond the diagonal branch. After this, I took the balloon out and advanced and positioned a shockwave balloon and gave 2 treatments with shockwave balloon at the site of heavy calcification. Subsequently, I took a 2.25 caliber 15 mm long NC Trek balloon and dilated the distal LAD with excellent angiographic result. Flow was improved remarkably. I then deployed a 3.25 caliber 23 mm long Xience stent in the proximal LAD extending just beyond the diagonal branch. Excellent angiographic result was achieved. I performed intravascular ultrasound and noted that the stent was fully expanded, but there was heavy calcification. The proximal area of the stent seemed to have somewhat of an underexpansion. I therefore went back with a 3.5 caliber 20 mm long NC Trek balloon and gave 2 inflations in the stented segment. Excellent apposition was noted. Excellent angiographic result was achieved without complication. Findings were discussed with the patient. The sheath was taken out, and Angio-Seal device was used to secure hemostasis and he was sent to the room in stable condition. Excellent angiographic result without complication was achieved. MMTIMOTHY / KARYN: [id number] / RAJAN
[2023-05-08] MEDS: SODIUM CHLORIDE 0.9% 1,000 ML IV SCH (05:15)
[2023-05-08 06:26] LABS: Glucose,Whole Blood 133 mg/dL (70-110)
[2023-05-08] MEDS: INSULIN ASPART (NovoLOG) 100 UNIT/ML VIAL SQ SCH ×2 (06:32→15:27)
[2023-05-08 06:50] LABS: Basophils % (A) 0 %; Eosinophils % (A) 0 %; HCT 27.8 % (39.0-53.0); HGB 9.3 gm/dL (13.0-17.5); Lymphocytes # (A) 1.6 k/uL (1.0-4.8); Lymphocytes % (A) 20 %; MCH 29.1 pg (25.0-35.0); MCHC 33.5 g/dL (31.0-37.0); MCV 86.6 fL (80.0-100.0); Mean Platelet Volume 7.2; Monocytes # (A) 0.5 k/uL (0-1.0); Monocytes % (A) 6 %; Neutrophils # (A) 5.7 k/uL (1.3-7.7); Neutrophils % (A) 72 %; Platelet Count 134 k/uL (150-450); RBC 3.21 m/uL (4.30-5.90)
[2023-05-08 07:04] LABS: African American GFR (CKD) 27 (>60 ml/min/1.73 sqM); Anion Gap 10 mmol/L; Blood Urea Nitrogen 32 mg/dL (9-20); Carbon Dioxide 29 mmol/L (22-30); Chloride 95 mmol/L (98-107); Glucose 123 mg/dL (74-99); Non-African American GFR(CKD) 23 (>60 ml/min/1.73 sqM); Potassium 4.1 mmol/L (3.5-5.1); Sodium 134 mmol/L (137-145)
[2023-05-08] MEDS ORDERED: LOSARTAN 25 MG TAB PO SCH (09:00)
[2023-05-08 09:10] VITALS: BP 156/71; PULSE 56; RESP 17; TEMP 98
[2023-05-08] MEDS: CALCIUM ACETATE 667 MG TAB PO SCH ×2 (09:20→15:27)
[2023-05-08] MEDS: ASPIRIN 325 MG TAB PO SCH (09:21)
[2023-05-08] MEDS: FUROSEMIDE 40 MG TAB PO SCH (09:21)
[2023-05-08] MEDS: DOCUSATE 100 MG CAP PO SCH (09:21)
[2023-05-08] MEDS: allopurinoL 100 MG TAB PO SCH (09:21)
[2023-05-08] MEDS: CITALOPRAM HYDROBROMIDE 20 MG TAB PO SCH (09:21)
[2023-05-08] MEDS: hydrALAZINE HCL 25 MG TAB PO SCH (09:22)
[2023-05-08] MEDS: METOPROLOL TARTRATE 50 MG TAB PO SCH (09:22)
[2023-05-08] MEDS: HEPARIN SODIUM,PORCINE 5,000 UNIT/ML 1 ML VIAL SQ SCH (09:22)
[2023-05-08] MEDS: NIFEdipine XL 30 MG TAB.ER.24 PO SCH (09:23)
[2023-05-08] MEDS: PANTOPRAZOLE 40 MG TABLET PO SCH (09:23)
--- NOTE | 2023-05-08 10:01 | P.PN ---
Subjective Progress Note Date: 05/08/23 History of present illness: This is a 57-year-old male with history of diabetes, end-stage renal disease on hemodialysis this started 2 months ago. He also has hypertension, hyperlipidemia, coronary artery disease. Patient presented to the hospital due to angina symptoms. Yesterday, patient underwent cardiac catheterization with Dr. MAC Avendaño and angioplasty and stenting of the proximal LAD and percutaneous transluminal angioplasty of the distal LAD with a noncompliant balloon were performed. Patient is seen this morning follow-up. He denies having any chest pain. Right groin shows no sign of bleeding hematoma infection. Area is soft. Patient is already on baby aspirin, Plavix and atorvastatin at 80 mg at home. Physical examination: Gen: This is a 57-year-old male resting in bed and appears to be comfortable. VS: reviewed HEENT: Head is atraumatic, normocephalic. Pupils equal, round. Sclerae is anicteric. LUNGS: Clear to auscultation. No wheezes or rhonchi. No intercostal retractions. HEART: Regular rate and rhythm. Short systolic murmur at the base. ABDOMEN: Soft No tenderness. RT Groin is soft. EXTREMITIES: No pedal edema. No calf tenderness. NEUROLOGICAL: Patient is awake, alert and oriented x3. Assessment: Unstable angina with coronary artery disease End-stage renal disease on hemodialysis Hypertension Diabetes Hyperlipidemia Plan: Continue current cardiac medications Patient is cleared for discharge and will follow-up in the office on May 20 in the morning. Nurse practitioner note has been reviewed, I agree with documented findings and plan of care. Patient was seen and examined. Objective - Vital Signs Vital signs: Vital Signs Temp 98 F 05/08/23 07:00 Pulse 56 L 05/08/23 07:00 Resp 17 05/08/23 07:00 BP 156/71 05/08/23 07:00 Pulse Ox 98 05/08/23 07:00 FiO2 Intake & Output 05/07/23 05/08/23 05/08/23 18:59 06:59 18:59 Intake Total 795 Output Total 2800 675 Weight 77.111 kg Intake: IV 75 Oral 120 Hemodialysis 600 Output: Urine 1200 675 Hemodialysis 1600 Other: Voiding Method Indwelling Catheter Indwelling Catheter - Labs CBC & Chem 7: 05/08/23 06:00 05/08/23 06:00 Labs: Abnormal Lab Results - Last 24 Hours (Table) 05/07/23 05/07/23 05/07/23 Range/Units 12:28 17:43 20:02 RBC (4.30-5.90) m/uL Hgb (13.0-17.5) gm/dL Hct (39.0-53.0) % RDW (11.5-15.5) % Plt Count (150-450) k/uL Sodium (137-145) mmol/L Chloride (98-107) mmol/L BUN (9-20) mg/dL Creatinine (0.66-1.25) mg/dL Glucose (74-99) mg/dL POC Glucose (mg/dL) 176 H 323 H 296 H (70-110) mg/dL Calcium (8.4-10.2) mg/dL 05/08/23 05/08/23 05/08/23 Range/Units 06:00 06:00 06:21 RBC 3.21 L (4.30-5.90) m/uL Hgb 9.3 L (13.0-17.5) gm/dL Hct 27.8 L (39.0-53.0) % RDW 16.0 H (11.5-15.5) % Plt Count 134 L (150-450) k/uL Sodium 134 L (137-145) mmol/L Chloride 95 L (98-107) mmol/L BUN 32 H (9-20) mg/dL Creatinine 2.90 H (0.66-1.25) mg/dL Glucose 123 H (74-99) mg/dL POC Glucose (mg/dL) 133 H (70-110) mg/dL Calcium 8.0 L (8.4-10.2) mg/dL Microbiology - Last 24 Hours (Table) 05/06/23 05:30 Urine Culture - Preliminary Urine,Catheterized Yeast
--- NOTE | 2023-05-08 12:16 | P.PN ---
Subjective Patient is seen in follow-up for end-stage renal disease. He is maintained on hemodialysis on Thursday schedule. No problems with dialysis yesterday. No active chest pain or shortness of breath. Underwent cardiac catheterization with LAD stent placement and angioplasty. Vital signs are stable. General: No acute distress. HEENT: Head exam is unremarkable. LUNGS: No audible rhonchi or wheezes. HEART: Rate and Rhythm are regular. ABDOMEN: Nontender. EXTREMITITES: No edema. Objective - Vital Signs Vital signs: Vital Signs Temp 98 F 05/08/23 07:00 Pulse 56 L 05/08/23 07:00 Resp 17 05/08/23 07:00 BP 156/71 05/08/23 07:00 Pulse Ox 98 05/08/23 07:00 FiO2 Intake & Output 05/07/23 05/08/23 05/08/23 18:59 06:59 18:59 Intake Total 795 Output Total 2800 675 Weight 77.111 kg Intake: IV 75 Oral 120 Hemodialysis 600 Output: Urine 1200 675 Hemodialysis 1600 Other: Voiding Method Indwelling Catheter Indwelling Catheter Indwelling Catheter - Labs CBC & Chem 7: 05/08/23 06:00 05/08/23 06:00 Labs: Abnormal Lab Results - Last 24 Hours (Table) 05/07/23 05/07/23 05/07/23 Range/Units 12:28 17:43 20:02 RBC (4.30-5.90) m/uL Hgb (13.0-17.5) gm/dL Hct (39.0-53.0) % RDW (11.5-15.5) % Plt Count (150-450) k/uL Sodium (137-145) mmol/L Chloride (98-107) mmol/L BUN (9-20) mg/dL Creatinine (0.66-1.25) mg/dL Glucose (74-99) mg/dL POC Glucose (mg/dL) 176 H 323 H 296 H (70-110) mg/dL Calcium (8.4-10.2) mg/dL 05/08/23 05/08/23 05/08/23 Range/Units 06:00 06:00 06:21 RBC 3.21 L (4.30-5.90) m/uL Hgb 9.3 L (13.0-17.5) gm/dL Hct 27.8 L (39.0-53.0) % RDW 16.0 H (11.5-15.5) % Plt Count 134 L (150-450) k/uL Sodium 134 L (137-145) mmol/L Chloride 95 L (98-107) mmol/L BUN 32 H (9-20) mg/dL Creatinine 2.90 H (0.66-1.25) mg/dL Glucose 123 H (74-99) mg/dL POC Glucose (mg/dL) 133 H (70-110) mg/dL Calcium 8.0 L (8.4-10.2) mg/dL Microbiology - Last 24 Hours (Table) 05/06/23 05:30 Urine Culture - Preliminary Urine,Catheterized Yeast Assessment and Plan Plan: Assessment: 1. End-stage renal disease maintained on hemodialysis on Thursday schedule via permacath. 2. Chest pain, rule out acute coronary syndrome. Status post cardiac catheterization with LAD stent placement and balloon enteroplasty. 3. History of coronary disease with cardiac stents. 4. Diabetes mellitus. 5. Volume overload. Improved with ultrafiltration. 6. Chronic kidney disease mineral bone disease maintained on PhosLo. Phosphorus level 4.7 dated 05/06/2023. 7. Anemia of chronic kidney disease maintained on Aranesp. Iron replete. 8. Hypertension with chronic kidney disease. Stable. Plan: Hemodialysis tomorrow. Possible discharge today.
[2023-05-08 12:20] LABS: Glucose,Whole Blood 173 mg/dL (70-110)
--- NOTE | 2023-05-09 06:50 | P.DS ---
Providers Date of admission: 05/05/23 17:08 Attending physician: Cecilio Vallejo MD Consults: 05/05/23 17:07 Consult Physician Urgent Consulting Provider: Emir Louis Consult Reason/Comments: cp Do you want consulting provider notified?: Yes 05/05/23 19:37 Consult Physician Urgent Consulting Provider: Ricky Nieves Consult Reason/Comments: dialysis, ct done Do you want consulting provider notified?: Yes 05/07/23 12:18 Consult Physician Routine Consulting Provider: [facility] Consult Reason/Comments: Post Interventional Patient Do you want consulting provider notified?: Already Contacted Primary care physician: [facility] Course: Diagnoses: Chest pain, unstable angina. Status post cardiac cath: Status post PCI to proximal LAD with drug eluting stent and percutaneous transluminal coronary angioplasty of the distal LAD with noncompliant balloon History of coronary artery disease status post stents 4 Chronic kidney disease status post hemodialysis Diabetes mellitus Hypertension Chronic anemia and thrombocytopenia Asymptomatic sinus bradycardia Hospital course: This is a pleasant 57 years old male with multiple medical problems including history of recent non-STEMI about 2 months ago, he is status post 4 stents. Also patient's with progressive kidney disease started hemodialysis about 2 months ago as well. Presents this time because of chest pain for the last 2 hours while he was at hemodialysis. Patient underwent cardiac cath showing 90% stenosis of LAD status post stenting and angioplasty. He tolerated the procedure well, postoperatively he was doing well denying any symptoms no chest pain or dyspnea. Garcia awake and oriented and denies any other complaints oriented patient is wants to go home. Patient was cleared for discharge by aligning inspector. I checked with the patient and he told me he has all his home prescriptions, he is on aspirin Plavix and Lipitor at home. New prescription is provided for the patient's with Lasix 80 mg, Losartan and hydralazine Patient was cleared for discharge by aligning inspector. Problems and management plan were discussed with the patient and he verbalized understanding and acceptance Patient was found stable and can be discharged home in guarded prognosis however he needs follow-up as an outpatient. Patient was instructed to follow up with PCP Dr. Goel within one week and patient agrees Patient was instructed to follow up outpatient with Dr. Avendaño and appointment for 05/20 made for him and he is agreeable. Also patient was instructed to follow up with jig bore tool maker as an outpatient in 1 week and he agrees Physical exam Gen: patient is a AAOx3, no distress CVS: S1-S2, RRR, no murmur Lungs: B/L CTA, no wheezing Abdomen: soft, no distention, no tenderness, positive bowel sounds Extremity: no leg edema or induration Time spent more than 35 minutes Patient Condition at Discharge: Good Plan - Discharge Summary New Discharge Prescriptions: New Losartan [Cozaar] 25 mg PO DAILY #30 tab Furosemide [Lasix] 80 mg PO DAILY #60 tab hydrALAZINE HCL 50 mg PO TID #90 tablet Continue Pantoprazole [Protonix] 40 mg PO BID Tamsulosin [Flomax] 0.8 mg PO HS Citalopram Hydrobromide [CeleXA] 20 mg PO DAILY allopurinoL [Zyloprim] 100 mg PO DAILY Isosorbide Mononitrate ER [Imdur] 60 mg PO DAILY Atorvastatin [Lipitor] 80 mg PO HS Citalopram Hydrobromide [CeleXA] 40 mg PO DAILY Triamcinolone 0.1% Cream [Kenalog 0.1% Cream] 1 applic TOPICAL BID PRN PRN Reason: Skin Irritation Darbepoetin Omari [Aranesp] 60 mcg SQ Q14D Insulin Detemir (Levemir) [Levemir] 10 unit SQ HS #10 ml Clopidogrel [Plavix] 75 mg PO HS #30 tab NIFEdipine XL [Procardia XL] 30 mg PO DAILY 30 Days #30 tab Aspirin [[place] Aspirin EC] 81 mg PO DAILY #30 tab Gabapentin [Neurontin] 300 mg PO HS Metoprolol Tartrate [Lopressor] 50 mg PO BID Loratadine [Claritin] 10 mg PO DAILY Lurasidone [Latuda] 40 mg PO HS Ondansetron Odt [Zofran ODT] 4 mg PO BID PRN PRN Reason: Nausea Docusate [Colace] 100 mg PO DAILY Calcium Acetate [PhosLo] 667 mg PO TID-W/MEALS #90 tab INSULIN ASPART (NovoLOG) [NovoLOG (formulary)] See Protocol SQ AC-TID Folic Acid/Vit B Complex and C [Nephro-Cirilo Tablet] 0.8 mg PO DAILY Discontinued Furosemide [Lasix] 20 mg PO DAILY hydrALAZINE HCL [Apresoline] 25 mg PO TID Discharge Medication List Pantoprazole [Protonix] 40 mg PO BID 11/05/17 [History] Tamsulosin [Flomax] 0.8 mg PO HS 11/05/17 [History] Citalopram Hydrobromide [CeleXA] 20 mg PO DAILY 12/12/18 [History] allopurinoL [Zyloprim] 100 mg PO DAILY 04/05/19 [History] Atorvastatin [Lipitor] 80 mg PO HS 12/30/19 [History] Isosorbide Mononitrate ER [Imdur] 60 mg PO DAILY 12/30/19 [History] Citalopram Hydrobromide [CeleXA] 40 mg PO DAILY 06/29/20 [History] Loratadine [Claritin] 10 mg PO DAILY 01/21/21 [History] Lurasidone [Latuda] 40 mg PO HS 06/20/22 [History] Ondansetron Odt [Zofran ODT] 4 mg PO BID PRN 06/20/22 [History] Triamcinolone 0.1% Cream [Kenalog 0.1% Cream] 1 applic TOPICAL BID PRN 06/20/22 [History] Darbepoetin Omari [Aranesp] 60 mcg SQ Q14D 01/30/23 [History] Docusate [Colace] 100 mg PO DAILY 01/30/23 [History] Aspirin [[place] Aspirin EC] 81 mg PO DAILY #30 tab 03/18/23 [Rx] Calcium Acetate [PhosLo] 667 mg PO TID-W/MEALS #90 tab 03/18/23 [Rx] Clopidogrel [Plavix] 75 mg PO HS #30 tab 03/18/23 [Rx] Insulin Detemir (Levemir) [Levemir] 10 unit SQ HS #10 ml 03/18/23 [Rx] NIFEdipine XL [Procardia XL] 30 mg PO DAILY 30 Days #30 tab 03/18/23 [Rx] Folic Acid/Vit B Complex and C [Nephro-Cirilo Tablet] 0.8 mg PO DAILY 05/05/23 [History] Gabapentin [Neurontin] 300 mg PO HS 05/05/23 [History] INSULIN ASPART (NovoLOG) [NovoLOG (formulary)] See Protocol SQ AC-TID 05/05/23 [History] Metoprolol Tartrate [Lopressor] 50 mg PO BID 05/05/23 [History] Furosemide [Lasix] 80 mg PO DAILY #60 tab 05/08/23 [Rx] Losartan [Cozaar] 25 mg PO DAILY #30 tab 05/08/23 [Rx] hydrALAZINE HCL 50 mg PO TID #90 tablet 05/08/23 [Rx] Follow up Appointment(s)/Referral(s): Guerrero Avendaño MD [STAFF PHYSICIAN] - 05/20/23 (05/20 in AM with Brenda) Lamar Scott MD [Primary Care Provider] - 1-2 days Ricky Nieves DO [STAFF PHYSICIAN] - 1 Week Patient Instructions/Handouts: Chest Pain (DC) Activity/Diet/Wound Care/Special Instructions: renal diet activity is restricted till you see your doctor Discharge Disposition: HOME SELF-CARE
== END 2023-05-08 15:27 | disposition home or self-care (01) | DRG 323 ==
LOC: EC 14:58 → OBSVTOIN 17:08 → 6NMEDSUR 17:08
PROVIDERS: ADMIT Internal Medicine; ATTEND Internal Medicine
PROC: 5A1D70Z Performance of Urinary Filtration, Intermittent, Less than 6 Hours Per Day (ICD-10-PCS; 2023-05-06)
PROC: 4A023N7 Measurement of Cardiac Sampling and Pressure, Left Heart, Percutaneous Approach (ICD-10-PCS; 2023-05-07)
PROC: B240ZZ3 Ultrasonography of Single Coronary Artery, Intravascular (ICD-10-PCS; 2023-05-07)
PROC: 027034Z Dilation of Coronary Artery, One Artery with Drug-eluting Intraluminal Device, Percutaneous Approach (ICD-10-PCS; principal; 2023-05-07 10:30)
PROC: 02F03ZZ Fragmentation in Coronary Artery, One Artery, Percutaneous Approach (ICD-10-PCS; 2023-05-07 10:30)
PROC: B2111ZZ Fluoroscopy of Multiple Coronary Arteries using Low Osmolar Contrast (ICD-10-PCS; 2023-05-07 10:30)
DX: I25.110 Atherosclerotic heart disease of native coronary artery with unstable angina pectoris (principal); N18.6 End stage renal disease; I12.0 Hypertensive chronic kidney disease with stage 5 chronic kidney disease or end stage renal disease; B37.49 Other urogenital candidiasis; R07.9 Chest pain, unspecified; I25.2 Old myocardial infarction; M06.9 Rheumatoid arthritis, unspecified; F32.A Depression, unspecified; D63.1 Anemia in chronic kidney disease; D69.6 Thrombocytopenia, unspecified; E11.40 Type 2 diabetes mellitus with diabetic neuropathy, unspecified; E11.22 Type 2 diabetes mellitus with diabetic chronic kidney disease; E78.5 Hyperlipidemia, unspecified; E87.70 Fluid overload, unspecified; F41.9 Anxiety disorder, unspecified; H54.8 Legal blindness, as defined in USA; Z79.4 Long term (current) use of insulin; Z79.82 Long term (current) use of aspirin; Z79.899 Other long term (current) drug therapy; B35.9 Dermatophytosis, unspecified; K21.9 Gastro-esophageal reflux disease without esophagitis; Z86.73 Personal history of transient ischemic attack (TIA), and cerebral infarction without residual deficits; N40.0 Benign prostatic hyperplasia without lower urinary tract symptoms; E11.42 Type 2 diabetes mellitus with diabetic polyneuropathy; G43.909 Migraine, unspecified, not intractable, without status migrainosus; Z82.49 Family history of ischemic heart disease and other diseases of the circulatory system; Z95.5 Presence of coronary angioplasty implant and graft; Z99.2 Dependence on renal dialysis; Z91.041 Radiographic dye allergy status; Z88.8 Allergy status to other drugs, medicaments and biological substances; D64.9 Anemia, unspecified
CPT/HCPCS: 0715T; 36415; 71046; 71275; 80048; 80053; 80061; 82150; 82728; 83036; 83540; 83550; 83690; 83735; 84100; 84132; 84484; 85025; 85379; 85610; 85730; 86706; 87086; 90935; 92978; 93005; 93458; 96374; 96375; 99285

== ENCOUNTER 2023-05-19 16:11 | Observation (INO) | payer MEDICARE ==
--- NOTE | 2023-05-19 16:50 | ED ---
Chest Pain HPI - General Chief Complaint: Chest Pain Stated Complaint: chest pain Time Seen by Provider: 05/19/23 16:49 Source: patient, EMS, RN notes reviewed, old records reviewed Mode of arrival: EMS Limitations: no limitations - History of Present Illness MD Complaint: chest pain -: days(s) Onset: during rest Pain Location: substernal, left chest Pain Radiation: none Severity: moderate Severity scale (1-10): 4 Consistency: constant Improves With: nothing Worsens With: nothing Anginal Symptoms: sense of impending doom Treatments Prior to Arrival: none - Related Data Home Medications Medication Instructions Recorded Confirmed Pantoprazole [Protonix] 40 mg PO BID 11/05/17 05/05/23 Tamsulosin [Flomax] 0.8 mg PO HS 11/05/17 05/05/23 Citalopram Hydrobromide [CeleXA] 20 mg PO DAILY 12/12/18 05/05/23 allopurinoL [Zyloprim] 100 mg PO DAILY 04/05/19 05/05/23 Atorvastatin [Lipitor] 80 mg PO HS 12/30/19 05/05/23 Isosorbide Mononitrate ER [Imdur] 60 mg PO DAILY 12/30/19 05/05/23 Citalopram Hydrobromide [CeleXA] 40 mg PO DAILY 06/29/20 05/05/23 Loratadine [Claritin] 10 mg PO DAILY 01/21/21 05/05/23 Lurasidone [Latuda] 40 mg PO HS 06/20/22 05/05/23 Ondansetron Odt [Zofran ODT] 4 mg PO BID PRN 06/20/22 05/05/23 Triamcinolone 0.1% Cream [Kenalog 1 applic TOPICAL BID PRN 06/20/22 05/05/23 0.1% Cream] Darbepoetin Omari [Aranesp] 60 mcg SQ Q14D 01/30/23 05/05/23 Docusate [Colace] 100 mg PO DAILY 01/30/23 05/05/23 Folic Acid/Vit B Complex and C 0.8 mg PO DAILY 05/05/23 05/05/23 [Nephro-Cirilo Tablet] Gabapentin [Neurontin] 300 mg PO HS 05/05/23 05/05/23 INSULIN ASPART (NovoLOG) [NovoLOG See Protocol SQ AC-TID 05/05/23 05/05/23 (formulary)] Metoprolol Tartrate [Lopressor] 50 mg PO BID 05/05/23 05/05/23 Previous Rx's Medication Instructions Recorded Aspirin [[place] Aspirin EC] 81 mg PO DAILY #30 tab 03/18/23 Calcium Acetate [PhosLo] 667 mg PO TID-W/MEALS #90 tab 03/18/23 Clopidogrel [Plavix] 75 mg PO HS #30 tab 03/18/23 Insulin Detemir (Levemir) [Levemir] 10 unit SQ HS #10 ml 03/18/23 NIFEdipine XL [Procardia XL] 30 mg PO DAILY 30 Days #30 tab 03/18/23 Furosemide [Lasix] 80 mg PO DAILY #60 tab 05/08/23 Losartan [Cozaar] 25 mg PO DAILY #30 tab 05/08/23 hydrALAZINE HCL 50 mg PO TID #90 tablet 05/08/23 Allergies Allergy/AdvReac Type Severity Reaction Status Date / Time Iodinated Contrast Media AdvReac Nausea & Verified 05/19/23 16:40 [Iodinated Contrast- Oral Vomiting and IV Dye] sucralfate AdvReac Nausea & Verified 05/19/23 16:40 Vomiting Review of Systems ROS Statement: Those systems with pertinent positive or pertinent negative responses have been documented in the HPI. ROS Other: All systems not noted in ROS Statement are negative. EKG Findings - EKG Comments: EKG Findings:: EKG is sinus 52 OR 169 QRS 99 QTC 526 Past Medical History Past Medical History: Coronary Artery Disease (CAD), CVA/TIA, Diabetes Mellitus, GERD/Reflux, Hyperlipidemia, Hypertension, Myocardial Infarction (CA), Renal Disease, Rheumatoid Arthritis (RA) Additional Past Medical History / Comment(s): stroke apr 2017, migranes, diabetic neuropathy arms and legs, stage 3 kidney failure, PANCREATITIS, LEGALLY BLIND, enlarged prostate, trouble urinating Last Myocardial Infarction Date:: 2014 History of Any Multi-Drug Resistant Organisms: None Reported Past Surgical History: Cholecystectomy, Heart Catheterization With Stent, Heart Catheterization With Stent Additional Past Surgical History / Comment(s): Dialysis Port - 03/14/23. Prostrate surgery. HIATAL HERNIA REPAIR -January Past Anesthesia/Blood Transfusion Reactions: No Reported Reaction Additional Past Anesthesia/Blood Transfusion Reaction / Comment(s): never had anethesia Date of Last Stent Placement:: 2017 Past Psychological History: Anxiety, Depression Smoking Status: Never smoker Past Alcohol Use History: None Reported Past Drug Use History: None Reported - Past Family History Mother Family Medical History: CVA/TIA, Diabetes Mellitus, Hypertension Additional Family Medical History / Comment(s): Parkinson's Mother Father Family Medical History: CVA/TIA, Diabetes Mellitus, Myocardial Infarction (CA) Additional Family Medical History / Comment(s): Father of a [place] in his 50s. General Exam Limitations: no limitations General appearance: alert, in no apparent distress Head exam: Present: atraumatic, normocephalic, normal inspection Eye exam: Present: normal appearance, PERRL, EOMI. Absent: scleral icterus, conjunctival injection, periorbital swelling ENT exam: Present: normal exam, mucous membranes moist Neck exam: Present: normal inspection. Absent: tenderness, meningismus, lymphadenopathy Respiratory exam: Present: normal lung sounds bilaterally. Absent: respiratory distress, wheezes, rales, rhonchi, stridor Cardiovascular Exam: Present: regular rate, normal rhythm, normal heart sounds. Absent: systolic murmur, diastolic murmur, rubs, gallop, clicks GI/Abdominal exam: Present: soft, normal bowel sounds. Absent: distended, tenderness, guarding, rebound, rigid Extremities exam: Present: normal inspection, full ROM, normal capillary refill. Absent: tenderness, pedal edema, joint swelling, calf tenderness Back exam: Present: normal inspection Neurological exam: Present: alert, oriented X3, CN II-XII intact Psychiatric exam: Present: normal affect, normal mood Skin exam: Present: warm, dry, intact, normal color. Absent: rash Course Vital Signs 05/19/23 05/19/23 16:37 17:40 Temperature 98.3 F Pulse Rate 53 L 51 L Respiratory 18 18 Rate Blood Pressure 113/58 118/71 O2 Sat by Pulse 98 98 Oximetry - Reevaluation(s) Reevaluation #1: 05/19/23 18:43 Medical record is reviewed Reevaluation #2: 05/19/23 18:43 Patient still with chest pain here in the ER Reevaluation #3: 05/19/23 18:43 Patient informed results questions answered Reevaluation #4: 05/19/23 18:43 Was pt. sent in by a medical professional or institution (RADHA Moya, MICR[employer]HONE BOOM OPERATOR, urgent care, hospital, or intermediate...) When possible be specific @ -no Did you speak to anyone other than the patient for history (EMS, parent, family, police, friend...)? What history was obtained from this source @ -no Did you review nursing and triage notes (agree or disagree)? Why? @ -agree Are old charts reviewed (outside hosp., previous admission, EMS record, old EKG, old radiological studies, urgent care reports/EKG's, intermediate records)? Report findings @ -yes Differential Diagnosis (chest pain, altered mental status, abdominal pain women, abdominal pain men, vaginal bleeding, weakness, fever, dyspnea, syncope, headache, dizziness, GI bleed, back pain, seizure, CVA, palpatations, mental health, musculoskeletal)? @ -prior EKG interpreted by me (3pts min.). @ -yes X-rays interpreted by me (1pt min.). @ -yes CT interpreted by me (1pt min.). @ -no U/S interpreted by me (1pt. min.). @ -no What testing was considered but not performed or refused? (CT, X-rays, U/S, labs)? Why? @ -none What meds were considered but not given or refused? Why? @ -none Did you discuss the management of the patient with other professionals (professionals i.e. RADHA Moya, [employer]CR[employer] BOOM OPERATOR, lab, RT, psych nurse, social worker masters, dye tub tender, teacher, planned giving officer, embedded case manager)? Give summary @ -no Was smoking cessation discussed for >3mins.? @ -no Was critical care preformed (if so, how long)? @ -no Were there social determinants of health that impacted care today? How? (Homelessness, low income, unemployed, alcoholism, drug addiction, transportation, low edu. Level, literacy, decrease access to med. care, retirement, rehab)? @ -none Was there de-escalation of care discussed even if they declined (Discuss DNR or withdrawal of care, Hospice)? DNR status @ -no What co-morbidities impacted this encounter? (DM, HTN, Smoking, COPD, CAD, Cancer, CVA, ARF, Chemo, Hep., AIDS, mental health diagnosis, sleep apnea, morbid obesity)? @ -none Was patient admitted / discharged? Hospital course, mention meds given and route, prescriptions, significant lab abnormalities, going to OR and other pertinent info. @ - Undiagnosed new problem with uncertain prognosis? @ -no Drug Therapy requiring intensive monitoring for toxicity (Heparin, Nitro, Insulin, Cardizem)? @ -no Were any procedures done? @ -no Diagnosis/symptom? @ - Acute, or Chronic, or Acute on Chronic? @ -Acute Uncomplicated (without systemic symptoms) or Complicated (systemic symptoms)? @ -Complicated Side effects of treatment? @ -no Exacerbation, Progression, or Severe Exacerbation? @ -exacerbation Poses a threat to life or bodily function? How? (Chest pain, [place], CA, pneumonia, PE, COPD, DKA, ARF, appy, cholecystitis, CVA, Diverticulitis, Homicidal, Suicidal, threat to staff... and all critical care pts) @ -yes Reevaluation #5: 05/19/23 18:43 Differential Chest Pain: Stable Angina, Unstable Angina, STEMI, NSTEMI Aortic Dissection, Pneumothorax, Musculoskeletal, Esophageal Spasm GERD, Cholecystitis, Pancreatitis, Zoster, this is not meant to be an all-inclusive list. - Consultations Consultation #1: Spoke with [facility] were agrees to admit this patient Disposition Clinical Impression: Chest pain, Unstable angina, MIKEY (acute kidney injury) Disposition: ADMITTED IP TO THIS HOSP Condition: Fair Is patient prescribed a controlled substance at d/c from ED?: No Referrals: Lamar Scott MD [Primary Care Provider] - 1-2 days Time of Disposition: 18:40
[2023-05-19 17:54] LABS: Anisocytosis Slight; Basophils # (A) 0.1 k/uL (0-0.2); Basophils % (A) 1 %; Eosinophils # (A) 0.2 k/uL (0-0.7); Eosinophils % (A) 2 %; HCT 37.8 % (39.0-53.0); HGB 12.2 gm/dL (13.0-17.5); Lymphocytes # (A) 1.1 k/uL (1.0-4.8); Lymphocytes % (A) 10 %; MCH 29.1 pg (25.0-35.0); MCHC 32.3 g/dL (31.0-37.0); MCV 90.1 fL (80.0-100.0); Mean Platelet Volume 7.2; Monocytes # (A) 0.5 k/uL (0-1.0); Monocytes % (A) 5 %; Neutrophils # (A) 8.7 k/uL (1.3-7.7); Neutrophils % (A) 82 %; Platelet Count 163 k/uL (150-450); RDW 16.5 % (11.5-15.5); WBC 10.6 k/uL (3.8-10.6)
[2023-05-19 18:03] LABS: ALT 34 U/L (4-49); AST 30 U/L (17-59); African American GFR (CKD) 33 (>60 ml/min/1.73 sqM); Albumin 4.3 g/dL (3.5-5.0); Alkaline Phosphatase 134 U/L (38-126); Anion Gap 11 mmol/L; Blood Urea Nitrogen 19 mg/dL (9-20); Calcium 8.6 mg/dL (8.4-10.2); Carbon Dioxide 29 mmol/L (22-30); Chloride 95 mmol/L (98-107); Glucose 175 mg/dL (74-99); Lipase 309 U/L (23-300); Magnesium 1.7 mg/dL (1.6-2.3); Non-African American GFR(CKD) 29 (>60 ml/min/1.73 sqM); Potassium 4.2 mmol/L (3.5-5.1); Sodium 135 mmol/L (137-145); Total Bilirubin 0.5 mg/dL (0.2-1.3); Total Protein 7.4 g/dL (6.3-8.2)
[2023-05-19 18:04] LABS: Partial Thromboplastin Time 24.3 sec (22.0-30.0); Prothrombin Time 10.7 sec (10.0-12.5)
--- NOTE | 2023-05-19 18:08 | XR ---
EXAMINATION TYPE: XR chest 1V portable DATE OF EXAM: 05/19/2023 HISTORY: Shortness of breath. COMPARISON: 05/05/2023 TECHNIQUE: Single view of the chest is submitted. FINDINGS: Demonstrated are scattered senescent parenchymal change. There is no evidence for focal infiltrate. The heart is stable. Large bore central venous line unchanged in position. Hilar and mediastinal structures are within normal limits. Degenerative changes are seen of the dorsal spine. IMPRESSION: 1. Chronic changes without evidence for acute pulmonary disease.
[2023-05-19 18:12] LABS: NT-Pro-B-Type Natriuretic Pept 10100 pg/mL
[2023-05-19] MEDS ORDERED: ONDANSETRON 4 MG/2 ML VIAL IVP PRN (18:40)
[2023-05-19] MEDS ORDERED: NALOXONE 0.4 MG/ML 1 ML VIAL IV PRN (18:40)
[2023-05-19] MEDS ORDERED: MORPHINE SULFATE 4 MG/ML SYRINGE IV PRN (18:40)
[2023-05-19] MEDS: SODIUM CHLORIDE 0.9% 1,000 ML IV SCH (20:00)
[2023-05-20] MEDS ORDERED: hydrALAZINE HCL 50 MG TAB PO SCH (09:45)
[2023-05-20] MEDS ORDERED: METOPROLOL TARTRATE 50 MG TAB PO SCH (09:45)
[2023-05-20] MEDS ORDERED: NIFEdipine XL 30 MG TAB.ER.24 PO SCH (09:45)
[2023-05-20] MEDS ORDERED: LOSARTAN 25 MG TAB PO SCH (09:45)
[2023-05-20] MEDS ORDERED: ASPIRIN 81 MG PO SCH (09:45)
[2023-05-20] MEDS ORDERED: ISOSORBIDE MONONITRATE ER 60 MG TAB.ER.24H PO SCH (09:45)
[2023-05-20] MEDS ORDERED: FUROSEMIDE 40 MG TAB PO SCH (09:45)
[2023-05-20] MEDS ORDERED: ATORVASTATIN 80 MG TAB PO STA (09:53)
[2023-05-20] MEDS ORDERED: ALPRAZolam 0.25 MG TAB PO PRN (09:53)
[2023-05-20] MEDS ORDERED: ASPIRIN 325 MG TAB PO STA (09:53)
[2023-05-20] MEDS ORDERED: NITROGLYCERIN SL TABS 0.4 MG TAB SUBLINGUAL PRN (09:53)
[2023-05-20] MEDS ORDERED: ALPRAZolam 0.5 MG TAB PO PRN (09:53)
--- NOTE | 2023-05-20 09:56 | P.CRDCN ---
History of Present Illness Consult date: 05/20/23 Consult reason: chest pain History of present illness: History of present illness: This is a 57-year-old male patient of Dr. MAC Avendaño's with past medical history of ischemic cardiomyopathy with PCI of the circumflex and LAD, hypertension, hyperlipidemia, diabetes mellitus, chronic kidney disease on dialysis, degenerative disc disease. We have been asked to evaluate the patient for chest pain. Patient states that he developed chest pressure very similar to what he had couple weeks ago when he underwent cardiac catheterization and stent pl acement. He states the pain radiates to his right arm and into his jaw. He states it started yesterday while he was at hemodialysis. Patient is seen today in the emergency center waiting for a bed on the observation unit. EKG sinus bradycardia Chest x-ray: chronic changes without acute pulmonary disease. WBC 10.6, hemoglobin 12.2, platelet count 163. INR 1. Sodium 135, potassium 4.2, chloride 95, CO2 29, BUN 19, creatinine 2.44. Blood sugar 175. Alkaline phosphatase 134, troponin negative 1. ProBNP 10,100 Home cardiac medications: aspirin 81 mg daily, atorvastatin 80 mg at bedtime, P lavix 75 mg at bedtime, Lasix 80 mg daily, hydralazine 50 mg 3 times daily, Imdur 60 mg daily, losartan 25 mg daily, Lopressor 50 mg twice daily, Procardia XL 30 mg daily. Left heart catheterization performed 05/05/[address] MAC Avendaño reveals codominant system, totally occluded RCA, widely patent circumflex that was stented. Mid LAD at the site of stenting is widely patent but significant disease of the proximal LAD 95% with heavy calcification and distal LAD 143 which is diffuse disease such as progression of disease. Patient then underwent angioplasty and stenting of the proximal LAD, shock wave lithotripsy of the LAD calcified lesion. Echocardiogram performed revealed normal left ventricle size and systolic function. Moderate mitral and mild tricuspid regurgitation and no e vidence of pulmonary hypertension. Review Of Systems: At the time of my evaluation: Constitutional: No fever, no chills. No weakness, fatigue or lethargy. EENT: No headache. No dizziness. Lungs: No shortness of breath, cough, no sputum production. No wheezing. Cardiovascular: No chest pain, no lower extremity edema. No palpitations. No paroxysmal nocturnal dyspnea. No orthopnea. No lightheadedness or dizziness. No syncopal episodes. Abdominal: No abdominal pain. No nausea, vomiting. No diarrhea. No constipation. No bloody or tarry stools. Genitourinary: No dysuria.. No urinary retention. Musculoskeletal: No myalgias. No muscle weakness, no frequent falls. No back pain. No neck pain. Integumentary: No wounds. No rash. No unusual bruising. Neurologic: No aphasia. No facial droop. No change in mentation. No head injury. No headache. Physical examination: Gen: This is a 57-year-old male. He is resting on ER stretcher and appears to be comfortable and in no acute distress. VS: reviewed HEENT: Head is atraumatic, normocephalic. Pupils equal, round. Sclerae is anicteric. NECK: Supple. No JVD. LUNGS: Clear to auscultation. No wheezes or rhonchi. No intercostal retractions. HEART: Regular rate and rhythm. systolic murmur at the apex 3/6 ABDOMEN: Soft No tenderness. EXTREMITIES: No pedal edema. No calf tenderness. NEUROLOGICAL: Patient is awake, alert and oriented x3. Assessment: unstable angina with recent cardiac catheterization ischemic cardiomyopathy Previous stenting of circumflex and LAD Hypertension Hyperlipidemia Diabetes mellitus end-stage renal disease on dialysis Plan: Resume patient's home cardiac medications Scheduled for left heart catheterization tomorrow with Dr. MAC Avendaño Nothing by mouth after midnight Obtain Limited 2-D echocardiogram to assess LV function Further recommendations to follow based upon clinical course Thank you kindly for this consultation. Nurse practitioner note has been reviewed, I agree with documented findings and plan of care. Patient was seen and examined. Past Medical History Past Medical History: Coronary Artery Disease (CAD), CVA/TIA, Diabetes Mellitus, GERD/Reflux, Hyperlipidemia, Hypertension, Myocardial Infarction ([place]), Renal Disease, Rheumatoid Arthritis (RA) Additional Past Medical History / Comment(s): stroke apr 2017, migranes, diabetic neuropathy arms and legs, stage 3 kidney failure, PANCREATITIS, LEGALLY BLIND, enlarged prostate, trouble urinating Last Myocardial Infarction Date:: 2014 History of Any Multi-Drug Resistant Organisms: None Reported Past Surgical History: Cholecystectomy, Heart Catheterization With Stent, Heart Catheterization With Stent Additional Past Surgical History / Comment(s): Dialysis Port - 03/14/23. Prostrate surgery. HIATAL HERNIA REPAIR -January Past Anesthesia/Blood Transfusion Reactions: No Reported Reaction Additional Past Anesthesia/Blood Transfusion Reaction / Comment(s): never had anethesia Date of Last Stent Placement:: 2017 Past Psychological History: Anxiety, Depression Smoking Status: Never smoker Past Alcohol Use History: None Reported Past Drug Use History: None Reported - Past Family History Mother Family Medical History: CVA/TIA, Diabetes Mellitus, Hypertension Additional Family Medical History / Comment(s): Parkinson's Mother Father Family Medical History: CVA/TIA, Diabetes Mellitus, Myocardial Infarction ([place]) Additional Family Medical History / Comment(s): Father of a [place] in his 50s. Medications and Allergies Home Medications Medication Instructions Recorded Confirmed Type Pantoprazole [Protonix] 40 mg PO BID 11/05/17 05/19/23 History Tamsulosin [Flomax] 0.8 mg PO HS 11/05/17 05/19/23 History Citalopram Hydrobromide [CeleXA] 20 mg PO DAILY 12/12/18 05/19/23 History allopurinoL [Zyloprim] 100 mg PO DAILY 04/05/19 05/19/23 History Atorvastatin [Lipitor] 80 mg PO HS 12/30/19 05/19/23 History Isosorbide Mononitrate ER [Imdur] 60 mg PO DAILY 12/30/19 05/19/23 History Citalopram Hydrobromide [CeleXA] 40 mg PO DAILY 06/29/20 05/19/23 History Loratadine [Claritin] 10 mg PO DAILY 01/21/21 05/19/23 History Lurasidone [Latuda] 40 mg PO HS 06/20/22 05/19/23 History Ondansetron Odt [Zofran ODT] 4 mg PO BID PRN 06/20/22 05/19/23 History Triamcinolone 0.1% Cream [Kenalog 1 applic TOPICAL BID PRN 06/20/22 05/19/23 History 0.1% Cream] Darbepoetin Omari [Aranesp] 60 mcg SQ Q14D 01/30/23 05/19/23 History Docusate [Colace] 100 mg PO DAILY 01/30/23 05/19/23 History Aspirin [[place] Aspirin EC] 81 mg PO DAILY #30 tab 03/18/23 05/19/23 Rx Calcium Acetate [PhosLo] 667 mg PO TID-W/MEALS #90 tab 03/18/23 05/19/23 Rx Clopidogrel [Plavix] 75 mg PO HS #30 tab 03/18/23 05/19/23 Rx Insulin Detemir (Levemir) [Levemir] 10 unit SQ HS #10 ml 03/18/23 05/19/23 Rx NIFEdipine XL [Procardia XL] 30 mg PO DAILY 30 Days #30 tab 03/18/23 05/19/23 Rx Folic Acid/Vit B Complex and C 0.8 mg PO DAILY 05/05/23 05/19/23 History [Nephro-Cirilo Tablet] Gabapentin [Neurontin] 300 mg PO HS 05/05/23 05/19/23 History INSULIN ASPART (NovoLOG) [NovoLOG See Protocol SQ AC-TID 05/05/23 05/19/23 History (formulary)] Metoprolol Tartrate [Lopressor] 50 mg PO BID 05/05/23 05/19/23 History Furosemide [Lasix] 80 mg PO DAILY #60 tab 05/08/23 05/19/23 Rx Losartan [Cozaar] 25 mg PO DAILY #30 tab 05/08/23 05/19/23 Rx hydrALAZINE HCL 50 mg PO TID #90 tablet 05/08/23 05/19/23 Rx Allergies Allergy/AdvReac Type Severity Reaction Status Date / Time Iodinated Contrast Media AdvReac Nausea & Verified 05/19/23 19:30 [Iodinated Contrast- Oral Vomiting and IV Dye] sucralfate AdvReac Nausea & Verified 05/19/23 19:30 Vomiting Physical Exam Vitals: Vital Signs Temp Pulse Resp BP Pulse Ox 05/20/23 04:00 57 L 16 151/73 96 05/20/23 01:00 53 L 18 148/75 98 05/19/23 23:00 53 L 18 134/90 97 05/19/23 22:00 54 L 16 117/62 98 05/19/23 20:03 54 L 18 146/82 98 05/19/23 19:00 58 L 18 128/73 98 05/19/23 17:40 51 L 18 118/71 98 05/19/23 16:37 98.3 F 53 L 18 113/58 98 Intake and Output 05/19/23 05/20/23 05/20/23 22:59 06:59 14:59 Other: Weight 77.111 kg Results 05/19/23 17:37 05/19/23 17:37 Cardiac Enzymes 05/19/23 05/19/23 Range/Units 17:37 17:37 AST 30 (17-59) U/L Troponin I 0.017 (0.000-0.034) ng/mL Coagulation 05/19/23 Range/Units 17:37 PT 10.7 (10.0-12.5) sec APTT 24.3 (22.0-30.0) sec CBC 05/19/23 Range/Units 17:37 WBC 10.6 (3.8-10.6) k/uL RBC 4.20 L (4.30-5.90) m/uL Hgb 12.2 L (13.0-17.5) gm/dL Hct 37.8 L (39.0-53.0) % Plt Count 163 (150-450) k/uL Comprehensive Metabolic Panel 05/19/23 Range/Units 17:37 Sodium 135 L (137-145) mmol/L Potassium 4.2 (3.5-5.1) mmol/L Chloride 95 L (98-107) mmol/L Carbon Dioxide 29 (22-30) mmol/L BUN 19 (9-20) mg/dL Creatinine 2.44 H (0.66-1.25) mg/dL Glucose 175 H (74-99) mg/dL Calcium 8.6 (8.4-10.2) mg/dL AST 30 (17-59) U/L ALT 34 (4-49) U/L Alkaline Phosphatase 134 H (38-126) U/L Total Protein 7.4 (6.3-8.2) g/dL Albumin 4.3 (3.5-5.0) g/dL Current Medications Generic Name Dose Route Start Last Admin Trade Name Freq PRN Reason Stop Dose Admin Sodium Chloride 1,000 mls @ 75 mls/hr 05/19/23 18:45 05/19/23 20:00 Saline 0.9% IV 75 mls/hr .[id number] JAD Administration Morphine Sulfate 4 mg 05/19/23 18:40 Morphine Sulfate 4 Mg/Ml Syringe IV Q4HR PRN Severe Pain (Scale 7 to 10) Naloxone HCl 0.2 mg 05/19/23 18:40 Naloxone 0.4 Mg/Ml 1 Ml Vial IV Q2M PRN Opioid Reversal Ondansetron HCl 4 mg 05/19/23 18:40 Ondansetron 4 Mg/2 Ml Vial IVP Q8HR PRN Nausea And Vomiting Intake and Output 05/19/23 05/20/23 05/20/23 22:59 06:59 14:59 Other: Weight 77.111 kg 05/19/23 17:37 05/19/23 17:37
[2023-05-20 10:17] LABS: Glucose,Whole Blood 228 mg/dL (70-110)
[2023-05-20 10:48] LABS: Anisocytosis Slight; Basophils % (A) 0 %; Eosinophils # (A) 0.1 k/uL (0-0.7); Eosinophils % (A) 2 %; HGB 12.2 gm/dL (13.0-17.5); Hypochromasia Slight; Lymphocytes # (A) 1.2 k/uL (1.0-4.8); Lymphocytes % (A) 14 %; MCH 29.9 pg (25.0-35.0); MCHC 32.9 g/dL (31.0-37.0); MCV 91.1 fL (80.0-100.0); Mean Platelet Volume 7.4; Monocytes # (A) 0.4 k/uL (0-1.0); Monocytes % (A) 4 %; Neutrophils # (A) 6.8 k/uL (1.3-7.7); Neutrophils % (A) 79 %; Platelet Count 139 k/uL (150-450); RBC 4.06 m/uL (4.30-5.90); RDW 16.3 % (11.5-15.5); WBC 8.6 k/uL (3.8-10.6)
[2023-05-20 11:08] LABS: ALT 36 U/L (4-49); AST 36 U/L (17-59); African American GFR (CKD) 20 (>60 ml/min/1.73 sqM); Albumin/Globulin Ratio 1.4; Alkaline Phosphatase 115 U/L (38-126); Anion Gap 13 mmol/L; Blood Urea Nitrogen 32 mg/dL (9-20); Carbon Dioxide 26 mmol/L (22-30); Chloride 94 mmol/L (98-107); Globulin 2.9 g/dL; Glucose 236 mg/dL (74-99); Magnesium 1.7 mg/dL (1.6-2.3); Non-African American GFR(CKD) 17 (>60 ml/min/1.73 sqM); Phosphorus 5.7 mg/dL (2.5-4.5); Sodium 133 mmol/L (137-145); Total Bilirubin 0.4 mg/dL (0.2-1.3); Total Protein 6.9 g/dL (6.3-8.2)
[2023-05-20] MEDS ORDERED: hydrALAZINE HCL 20 MG/ML 1 ML VIAL IVP PRN (11:16)
--- NOTE | 2023-05-20 11:18 | P.NPCON ---
History of Present Illness - Reason for Consult end stage renal disease - History of Present Illness Reason for consultation: End-stage renal disease History of present illness: Patient is a 57-year-old male seen in consultation for end-stage renal disease. He is maintained on hemodialysis on Thursday schedule. Patient states he went to hemodialysis yesterday and towards the end of the treatment developed chest pain. Patient describes the chest pain as sharp in the middle of his chest. He also complained or radiation of the pain to his left arm. Patient has history of coronary artery disease and multiple cardiac stents. He last underwent cardiac catheterization on 05/07/2023 and underwent angioplasty and stenting of the proximal LAD and angioplasty of the distal LAD. Patient will undergo another cardiac catheterization tomorrow. Echocardiogram is pending. Currently denies chest pain. He is on heparin drip. Blood pressure noted to be elevated. He is currently on nasal cannula. Denies headaches. No vomiting or diarrhea. Patient is a chronic Garcia catheter and does make urine. Vital signs are stable. General: No acute distress. HEENT: Head exam is unremarkable. LUNGS: No audible rhonchi or wheezes. HEART: Rate and Rhythm are regular. ABDOMEN: Nontender. EXTREMITITES: No edema. Past Medical History Past Medical History: Coronary Artery Disease (CAD), CVA/TIA, Diabetes Mellitus, GERD/Reflux, Hyperlipidemia, Hypertension, Myocardial Infarction ([place]), Renal Disease, Rheumatoid Arthritis (RA) Additional Past Medical History / Comment(s): stroke apr 2017, migranes, diabetic neuropathy arms and legs, stage 3 kidney failure, PANCREATITIS, LEGALLY BLIND, enlarged prostate, trouble urinating Last Myocardial Infarction Date:: 2014 History of Any Multi-Drug Resistant Organisms: None Reported Past Surgical History: Cholecystectomy, Heart Catheterization With Stent, Heart Catheterization With Stent Additional Past Surgical History / Comment(s): Dialysis Port - 03/14/23. Prostrate surgery. HIATAL HERNIA REPAIR -January Past Anesthesia/Blood Transfusion Reactions: No Reported Reaction Additional Past Anesthesia/Blood Transfusion Reaction / Comment(s): never had anethesia Date of Last Stent Placement:: 2017 Past Psychological History: Anxiety, Depression Smoking Status: Never smoker Past Alcohol Use History: None Reported Past Drug Use History: None Reported - Past Family History Mother Family Medical History: CVA/TIA, Diabetes Mellitus, Hypertension Additional Family Medical History / Comment(s): Parkinson's Mother Father Family Medical History: CVA/TIA, Diabetes Mellitus, Myocardial Infarction ([place]) Additional Family Medical History / Comment(s): Father of a [place] in his 50s. Medications and Allergies Home Medications Medication Instructions Recorded Confirmed Type Pantoprazole [Protonix] 40 mg PO BID 11/05/17 05/19/23 History Tamsulosin [Flomax] 0.8 mg PO HS 11/05/17 05/19/23 History Citalopram Hydrobromide [CeleXA] 20 mg PO DAILY 12/12/18 05/19/23 History allopurinoL [Zyloprim] 100 mg PO DAILY 04/05/19 05/19/23 History Atorvastatin [Lipitor] 80 mg PO HS 12/30/19 05/19/23 History Isosorbide Mononitrate ER [Imdur] 60 mg PO DAILY 12/30/19 05/19/23 History Citalopram Hydrobromide [CeleXA] 40 mg PO DAILY 06/29/20 05/19/23 History Loratadine [Claritin] 10 mg PO DAILY 01/21/21 05/19/23 History Lurasidone [Latuda] 40 mg PO HS 06/20/22 05/19/23 History Ondansetron Odt [Zofran ODT] 4 mg PO BID PRN 06/20/22 05/19/23 History Triamcinolone 0.1% Cream [Kenalog 1 applic TOPICAL BID PRN 06/20/22 05/19/23 History 0.1% Cream] Darbepoetin Omari [Aranesp] 60 mcg SQ Q14D 01/30/23 05/19/23 History Docusate [Colace] 100 mg PO DAILY 01/30/23 05/19/23 History Aspirin [[place] Aspirin EC] 81 mg PO DAILY #30 tab 03/18/23 05/19/23 Rx Calcium Acetate [PhosLo] 667 mg PO TID-W/MEALS #90 tab 03/18/23 05/19/23 Rx Clopidogrel [Plavix] 75 mg PO HS #30 tab 03/18/23 05/19/23 Rx Insulin Detemir (Levemir) [Levemir] 10 unit SQ HS #10 ml 03/18/23 05/19/23 Rx NIFEdipine XL [Procardia XL] 30 mg PO DAILY 30 Days #30 tab 03/18/23 05/19/23 Rx Folic Acid/Vit B Complex and C 0.8 mg PO DAILY 05/05/23 05/19/23 History [Nephro-Cirilo Tablet] Gabapentin [Neurontin] 300 mg PO HS 05/05/23 05/19/23 History INSULIN ASPART (NovoLOG) [NovoLOG See Protocol SQ AC-TID 05/05/23 05/19/23 History (formulary)] Metoprolol Tartrate [Lopressor] 50 mg PO BID 05/05/23 05/19/23 History Furosemide [Lasix] 80 mg PO DAILY #60 tab 05/08/23 05/19/23 Rx Losartan [Cozaar] 25 mg PO DAILY #30 tab 05/08/23 05/19/23 Rx hydrALAZINE HCL 50 mg PO TID #90 tablet 05/08/23 05/19/23 Rx Allergies Allergy/AdvReac Type Severity Reaction Status Date / Time Iodinated Contrast Media AdvReac Nausea & Verified 05/19/23 19:30 [Iodinated Contrast- Oral Vomiting and IV Dye] sucralfate AdvReac Nausea & Verified 05/19/23 19:30 Vomiting Physical Exam Vitals: Vital Signs Temp Pulse Resp BP Pulse Ox 05/20/23 10:00 60 20 167/93 95 05/20/23 09:00 58 L 20 214/91 96 05/20/23 08:00 59 L 16 207/91 99 05/20/23 04:00 57 L 16 151/73 96 05/20/23 01:00 53 L 18 148/75 98 05/19/23 23:00 53 L 18 134/90 97 05/19/23 22:00 54 L 16 117/62 98 05/19/23 20:03 54 L 18 146/82 98 05/19/23 19:00 58 L 18 128/73 98 05/19/23 17:40 51 L 18 118/71 98 05/19/23 16:37 98.3 F 53 L 18 113/58 98 Intake and Output 05/19/23 05/20/23 05/20/23 22:59 06:59 14:59 Other: Weight 77.111 kg Results - Lab Results Most recent lab results Calcium 8.0 mg/dL (8.4-10.2) L 05/20/23 09:55 Phosphorus 5.7 mg/dL (2.5-4.5) H 05/20/23 09:55 Magnesium 1.7 mg/dL (1.6-2.3) 05/20/23 09:55 05/20/23 09:55 05/20/23 09:55 Assessment and Plan Plan: Assessment: 1. End-stage renal disease maintained on hemodialysis on Thursday schedule. 2. Unstable angina. On heparin drip. Cardiac catheterization tomorrow. 3. Coronary artery disease with prior cardiac stents. 4. Hypertension with chronic kidney disease. 5. Diabetes mellitus. 6. Chronic urinary retention with Garcia catheter. Patient states he follows with urology and is changed every month. 7. Chronic diastolic CHF and moderate mitral regurgitation. 8. Chronic kidney disease mineral bone disease. Plan: Hemodialysis tomorrow. Home antihypertensives resumed. Add as needed hydralazine. Check phosphorus level. Thank you for the consultation. I will continue to follow the patient with you during his hospital stay.
[2023-05-20] MEDS: SODIUM CHLORIDE 0.9% 1,000 ML IV SCH (12:31)
--- NOTE | 2023-05-20 13:06 | P.HPIM ---
History of Present Illness 55-year-old male came in with complaints of chest pain was started estrogen dialysis which is sharp pain nonradiating atypical no associated shortness of breath lightheadedness or diaphoresis. Patient was evaluated cardiology tropon in is negative. Patient had recent the cardiac catheterization which showed stenosis to LAD and patient underwent PCI to LAD. And circumflex. Patient still has mild pain at this time. REVIEW OF SYSTEMS: CONSTITUTIONAL: No fever, no malaise, no fatigue. HEENT: No recent visual problems or hearing problems. Denied any sore throat. CARDIOVASCULAR: No orthopnea, PND, no palpitations, no syncope. PULMONARY: No shortness of breath, no cough, no hemoptysis. GASTROINTESTINAL: No diarrhea, no nausea, no vomiting, no abdominal pain. NEUROLOGICAL: No headaches, no weakness, no numbness. HEMATOLOGICAL: Denies any bleeding or petechiae. GENITOURINARY: Denies any burning micturition, frequency, or urgency. MUSCULOSKELETAL/RHEUMATOLOGICAL: Denies any joint pain, swelling, or any muscle pain. ENDOCRINE: Denies any polyuria or polydipsia. The rest of the 14-point review of systems is negative. PHYSICAL EXAMINATION: GENERAL: The patient is alert and oriented x3, not in any acute distress. Well developed, well nourished. HEENT: Pupils are round and equally reacting to light. EOMI. No scleral icterus. No conjunctival pallor. Normocephalic, atraumatic. No pharyngeal erythema. No thyromegaly. CARDIOVASCULAR: S1 and S2 present. No murmurs, rubs, or gallops. PULMONARY: Chest is clear to auscultation, no wheezing or crackles. ABDOMEN: Soft, nontender, nondistended, normoactive bowel sounds. No palpable organomegaly. MUSCULOSKELETAL: No joint swelling or deformity. EXTREMITIES: No cyanosis, clubbing, or pedal edema. NEUROLOGICAL: Gross neurological examination did not reveal any focal deficits. SKIN: No rashes. Assessment and plan -Chest pain-we will rule out a concurrent syndromes further management and cardiac catheterization decisions as per cardiology. No plan on cardiac catheterization at this time unless patient's troponins are elevated, patient had normal ejection fraction not in CHF exacerbation at this time patient the doesn't appear to have any systolic dysfunction from the previous echocardiogram. No ischemic cardiomyopathy. Plan is to optimize his cardiac medications and monitor overnight -Hypertension hyperlipidemia Hypertrophy diabetes mellitus -End-stage renal disease see is on hemodialysis nephrology valid the patient patient will undergo scheduled hemodialysis DVT prophylaxis: Early ambulation Past Medical History Past Medical History: Coronary Artery Disease (CAD), CVA/TIA, Diabetes Mellitus, GERD/Reflux, Hyperlipidemia, Hypertension, Myocardial Infarction ([place]), Renal Disease, Rheumatoid Arthritis ([place]) Additional Past Medical History / Comment(s): stroke apr 2017, migranes, diabetic neuropathy arms and legs, stage 3 kidney failure, PANCREATITIS, LEGALLY BLIND, enlarged prostate, trouble urinating Last Myocardial Infarction Date:: 2014 History of Any Multi-Drug Resistant Organisms: None Reported Past Surgical History: Cholecystectomy, Heart Catheterization With Stent, Heart Catheterization With Stent Additional Past Surgical History / Comment(s): Dialysis Port - 03/14/23. Prostrate surgery. HIATAL HERNIA REPAIR -January Past Anesthesia/Blood Transfusion Reactions: No Reported Reaction Additional Past Anesthesia/Blood Transfusion Reaction / Comment(s): never had anethesia Date of Last Stent Placement:: 2017 Past Psychological History: Anxiety, Depression Smoking Status: Never smoker Past Alcohol Use History: None Reported Past Drug Use History: None Reported - Past Family History Mother Family Medical History: CVA/TIA, Diabetes Mellitus, Hypertension Additional Family Medical History / Comment(s): Parkinson's Mother Father Family Medical History: CVA/TIA, Diabetes Mellitus, Myocardial Infarction ([place]) Additional Family Medical History / Comment(s): Father of a [place] in his 50s. Medications and Allergies Home Medications Medication Instructions Recorded Confirmed Type Pantoprazole [Protonix] 40 mg PO BID 11/05/17 05/19/23 History Tamsulosin [Flomax] 0.8 mg PO HS 11/05/17 05/19/23 History Citalopram Hydrobromide [CeleXA] 20 mg PO DAILY 12/12/18 05/19/23 History allopurinoL [Zyloprim] 100 mg PO DAILY 04/05/19 05/19/23 History Atorvastatin [Lipitor] 80 mg PO HS 12/30/19 05/19/23 History Isosorbide Mononitrate ER [Imdur] 60 mg PO DAILY 12/30/19 05/19/23 History Citalopram Hydrobromide [CeleXA] 40 mg PO DAILY 06/29/20 05/19/23 History Loratadine [Claritin] 10 mg PO DAILY 01/21/21 05/19/23 History Lurasidone [Latuda] 40 mg PO HS 06/20/22 05/19/23 History Ondansetron Odt [Zofran ODT] 4 mg PO BID PRN 06/20/22 05/19/23 History Triamcinolone 0.1% Cream [Kenalog 1 applic TOPICAL BID PRN 06/20/22 05/19/23 History 0.1% Cream] Darbepoetin Omari [Aranesp] 60 mcg SQ Q14D 01/30/23 05/19/23 History Docusate [Colace] 100 mg PO DAILY 01/30/23 05/19/23 History Aspirin [[place] Aspirin EC] 81 mg PO DAILY #30 tab 03/18/23 05/19/23 Rx Calcium Acetate [PhosLo] 667 mg PO TID-W/MEALS #90 tab 03/18/23 05/19/23 Rx Clopidogrel [Plavix] 75 mg PO HS #30 tab 03/18/23 05/19/23 Rx Insulin Detemir (Levemir) [Levemir] 10 unit SQ HS #10 ml 03/18/23 05/19/23 Rx NIFEdipine XL [Procardia XL] 30 mg PO DAILY 30 Days #30 tab 03/18/23 05/19/23 Rx Folic Acid/Vit B Complex and C 0.8 mg PO DAILY 05/05/23 05/19/23 History [Nephro-Cirilo Tablet] Gabapentin [Neurontin] 300 mg PO HS 05/05/23 05/19/23 History INSULIN ASPART (NovoLOG) [NovoLOG See Protocol SQ AC-TID 05/05/23 05/19/23 History (formulary)] Metoprolol Tartrate [Lopressor] 50 mg PO BID 05/05/23 05/19/23 History Furosemide [Lasix] 80 mg PO DAILY #60 tab 05/08/23 05/19/23 Rx Losartan [Cozaar] 25 mg PO DAILY #30 tab 05/08/23 05/19/23 Rx hydrALAZINE HCL 50 mg PO TID #90 tablet 05/08/23 05/19/23 Rx Allergies Allergy/AdvReac Type Severity Reaction Status Date / Time Iodinated Contrast Media AdvReac Nausea & Verified 05/19/23 19:30 [Iodinated Contrast- Oral Vomiting and IV Dye] sucralfate AdvReac Nausea & Verified 05/19/23 19:30 Vomiting Physical Exam Vitals: Vital Signs Temp Pulse Resp BP Pulse Ox 05/20/23 11:17 98.1 F 58 L 20 160/96 98 05/20/23 10:00 60 20 167/93 95 05/20/23 09:00 58 L 20 214/91 96 05/20/23 08:00 59 L 16 207/91 99 05/20/23 04:00 57 L 16 151/73 96 05/20/23 01:00 53 L 18 148/75 98 05/19/23 23:00 53 L 18 134/90 97 05/19/23 22:00 54 L 16 117/62 98 05/19/23 20:03 54 L 18 146/82 98 05/19/23 19:00 58 L 18 128/73 98 05/19/23 17:40 51 L 18 118/71 98 05/19/23 16:37 98.3 F 53 L 18 113/58 98 Intake and Output 05/19/23 05/20/23 05/20/23 22:59 06:59 14:59 Other: Weight 77.111 kg Results CBC & Chem 7: 05/20/23 09:55 05/20/23 09:55 Labs: Abnormal Lab Results - Last 24 Hours (Table) 05/19/23 05/19/23 05/20/23 Range/Units 17:37 17:37 09:55 RBC 4.20 L 4.06 L (4.30-5.90) m/uL Hgb 12.2 L 12.2 L (13.0-17.5) gm/dL Hct 37.8 L 37.0 L (39.0-53.0) % RDW 16.5 H 16.3 H (11.5-15.5) % Plt Count 139 L (150-450) k/uL Neutrophils # 8.7 H (1.3-7.7) k/uL Sodium 135 L (137-145) mmol/L Chloride 95 L (98-107) mmol/L BUN (9-20) mg/dL Creatinine 2.44 H (0.66-1.25) mg/dL Glucose 175 H (74-99) mg/dL POC Glucose (mg/dL) (70-110) mg/dL Calcium (8.4-10.2) mg/dL Phosphorus (2.5-4.5) mg/dL Alkaline Phosphatase 134 H (38-126) U/L Lipase 309 H (23-300) U/L 05/20/23 05/20/23 Range/Units 09:55 10:13 RBC (4.30-5.90) m/uL Hgb (13.0-17.5) gm/dL Hct (39.0-53.0) % RDW (11.5-15.5) % Plt Count (150-450) k/uL Neutrophils # (1.3-7.7) k/uL Sodium 133 L (137-145) mmol/L Chloride 94 L (98-107) mmol/L BUN 32 H (9-20) mg/dL Creatinine 3.75 H (0.66-1.25) mg/dL Glucose 236 H (74-99) mg/dL POC Glucose (mg/dL) 228 H (70-110) mg/dL Calcium 8.0 L (8.4-10.2) mg/dL Phosphorus 5.7 H (2.5-4.5) mg/dL Alkaline Phosphatase (38-126) U/L Lipase (23-300) U/L
--- NOTE | 2023-05-20 14:10 | P.PN ---
Progress Note - Text Progress Note Date: 05/20/23 Patient has been reassessed by his acid supervisor, Dr. MAC Avendaño. Medication adjustments were made to address hypertension with increase in losartan and Procardia. A stat troponin was obtained which returned as 0.022. As patient does not have any significant troponin elevation, presented with uncontrolled hypertension, and does have history of known total occlusion of the RCA which both could contribute to chest pain/unstable angina. Upon review of all clinical information, chest pain appears to be atypical. The cardiac catheterization will be canceled and patient is cleared for discharge from cardiology with medication dosage adjustments made to losartan and Procardia. Patient is to follow-up with Dr. MAC Avendaño in 2 weeks.
--- NOTE | 2023-05-20 14:52 | P.DS ---
Providers Date of admission: 05/19/23 18:40 Attending physician: Shakeel Miramontes Consults: 05/19/23 18:40 Consult Physician Routine Consulting Provider: Tico Angeles Consult Reason/Comments: cp Do you want consulting provider notified?: Yes Consult Physician Routine Consulting Provider: Kristina Gomez Consult Reason/Comments: CKD Do you want consulting provider notified?: Yes Primary care physician: Juaquin Chet [facility] Course: Patient was admitted for the unstable angina evaluation as. Patient was sent in from dialysis center where he was complaining of chest pain. Patient does have history of coronary artery disease and stent to LAD. Patient had total occlusion of RCA. Cardiology evaluated the patient they are recommending increasing dose of losartan and nicotine. Patient blood pressure was high. Troponins were negative here. No further intervention is being planned by cardiology. Patient is cleared for discharge. Follow-up with the cardiology in 2 weeks. Patient has high normal potassium level of 5 his potassium level lead to be followed as an outpatient in nephrology office as his losartan is being increased from 25 mg to 50 mg. For rest of the medical problems and hospice physician course please refer to my HPI Patient Condition at Discharge: Fair Plan - Discharge Summary New Discharge Prescriptions: New Losartan [Cozaar] 50 mg PO DAILY #30 tab NIFEdipine XL [Procardia XL] 60 mg PO DAILY #60 tab Continue Pantoprazole [Protonix] 40 mg PO BID Tamsulosin [Flomax] 0.8 mg PO HS Citalopram Hydrobromide [CeleXA] 20 mg PO DAILY allopurinoL [Zyloprim] 100 mg PO DAILY Isosorbide Mononitrate ER [Imdur] 60 mg PO DAILY Atorvastatin [Lipitor] 80 mg PO HS Citalopram Hydrobromide [CeleXA] 40 mg PO DAILY Triamcinolone 0.1% Cream [Kenalog 0.1% Cream] 1 applic TOPICAL BID PRN PRN Reason: Skin Irritation Darbepoetin Omari [Aranesp] 60 mcg SQ Q14D Insulin Detemir (Levemir) [Levemir] 10 unit SQ HS #10 ml Clopidogrel [Plavix] 75 mg PO HS #30 tab Aspirin [[place] Aspirin EC] 81 mg PO DAILY #30 tab Gabapentin [Neurontin] 300 mg PO HS Metoprolol Tartrate [Lopressor] 50 mg PO BID Furosemide [Lasix] 80 mg PO DAILY #60 tab Loratadine [Claritin] 10 mg PO DAILY Lurasidone [Latuda] 40 mg PO HS Ondansetron Odt [Zofran ODT] 4 mg PO BID PRN PRN Reason: Nausea Docusate [Colace] 100 mg PO DAILY Calcium Acetate [PhosLo] 667 mg PO TID-W/MEALS #90 tab INSULIN ASPART (NovoLOG) [NovoLOG (formulary)] See Protocol SQ AC-TID Folic Acid/Vit B Complex and C [Nephro-Cirilo Tablet] 0.8 mg PO DAILY hydrALAZINE HCL 50 mg PO TID #90 tablet Discontinued NIFEdipine XL [Procardia XL] 30 mg PO DAILY 30 Days #30 tab Losartan [Cozaar] 25 mg PO DAILY #30 tab Discharge Medication List Pantoprazole [Protonix] 40 mg PO BID 11/05/17 [History] Tamsulosin [Flomax] 0.8 mg PO HS 11/05/17 [History] Citalopram Hydrobromide [CeleXA] 20 mg PO DAILY 12/12/18 [History] allopurinoL [Zyloprim] 100 mg PO DAILY 04/05/19 [History] Atorvastatin [Lipitor] 80 mg PO HS 12/30/19 [History] Isosorbide Mononitrate ER [Imdur] 60 mg PO DAILY 12/30/19 [History] Citalopram Hydrobromide [CeleXA] 40 mg PO DAILY 06/29/20 [History] Loratadine [Claritin] 10 mg PO DAILY 01/21/21 [History] Lurasidone [Latuda] 40 mg PO HS 06/20/22 [History] Ondansetron Odt [Zofran ODT] 4 mg PO BID PRN 06/20/22 [History] Triamcinolone 0.1% Cream [Kenalog 0.1% Cream] 1 applic TOPICAL BID PRN 06/20/22 [History] Darbepoetin Omari [Aranesp] 60 mcg SQ Q14D 01/30/23 [History] Docusate [Colace] 100 mg PO DAILY 01/30/23 [History] Aspirin [[place] Aspirin EC] 81 mg PO DAILY #30 tab 03/18/23 [Rx] Calcium Acetate [PhosLo] 667 mg PO TID-W/MEALS #90 tab 03/18/23 [Rx] Clopidogrel [Plavix] 75 mg PO HS #30 tab 03/18/23 [Rx] Insulin Detemir (Levemir) [Levemir] 10 unit SQ HS #10 ml 03/18/23 [Rx] Folic Acid/Vit B Complex and C [Nephro-Cirilo Tablet] 0.8 mg PO DAILY 05/05/23 [History] Gabapentin [Neurontin] 300 mg PO HS 05/05/23 [History] INSULIN ASPART (NovoLOG) [NovoLOG (formulary)] See Protocol SQ AC-TID 05/05/23 [History] Metoprolol Tartrate [Lopressor] 50 mg PO BID 05/05/23 [History] Furosemide [Lasix] 80 mg PO DAILY #60 tab 05/08/23 [Rx] hydrALAZINE HCL 50 mg PO TID #90 tablet 05/08/23 [Rx] Losartan [Cozaar] 50 mg PO DAILY #30 tab 05/20/23 [Rx] NIFEdipine XL [Procardia XL] 60 mg PO DAILY #60 tab 05/20/23 [Rx] Follow up Appointment(s)/Referral(s): Lamar Scott MD [Primary Care Provider] - 3 Days Discharge Disposition: HOME SELF-CARE
[2023-05-20 15:44] VITALS: BP 127/73; PULSE 52; RESP 18; TEMP 97.8
--- NOTE | 2023-05-20 17:40 | CA ---
Transthoracic Echo Report Name: Kashmir Tinajero Age: 57 Gender: M : 1965 Exam Date: 05/20/2023 09:44 Exam Location: [place] Echo Ht (in): 69 Wt (lb): 170 Ordering Physician: Cee Hughes Attending/Referring Phys: [id number], Saul Manager [place] Martha Hernandez RDCS Procedure CPT: Indications: LVF Cardiac Hx: Technical Quality: Fair Contrast 1: Total Dose (mL): Contrast 2: Total Dose (mL): MEASUREMENTS (Male / Female) Normal Values 2D ECHO LV Diastolic Diameter PLAX 5.5 cm 4.2 - 5.9 / 3.9 - 5.3 cm LV Systolic Diameter PLAX 4.1 cm IVS Diastolic Thickness 1.5 cm 0.6 - 1.0 / 0.6 - 0.9 cm LVPW Diastolic Thickness 1.3 cm 0.6 - 1.0 / 0.6 - 0.9 cm LV Relative Wall Thickness 0.5 DOPPLER TR Peak Velocity 240.0 cm/s TR Peak Gradient 23.0 mmHg Right Ventricular Systolic Press 28.0 mmHg FINDINGS Left Ventricle Moderately increased left ventricular wall thickness. Left ventricular cavity size normal. Normal left ventricular systolic function with no obvious regional wall motion abnormalities. Left ventricular ejection fraction is estimated at 55-60 %. Right Ventricle Right Atrium Left Atrium Mitral Valve Aortic Valve Tricuspid Valve Pulmonic Valve Pericardium No pericardial effusion. Aorta CONCLUSIONS Normal LV function Previewed by: Dr. Parish Garcia MD (Electronically Signed) Final Date: 20 May 2023 17:39
[2023-05-20] MEDS ORDERED: ATORVASTATIN 80 MG TAB PO SCH (21:00)
[2023-05-20] MEDS ORDERED: CLOPIDOGREL 75 MG TAB PO SCH (21:00)
[2023-05-21] MEDS ORDERED: HEPARIN SODIUM,PORCINE 10,000 UNIT in SODIUM CHLORIDE 0.9% 1,000 ML IRRIGATION PRN (07:00)
[2023-05-21] MEDS ORDERED: HEPARIN SODIUM,PORCINE (1 ML) 2,500 UNIT in SODIUM CHLORIDE 0.9% 250 ML IRRIGATION PRN (07:00)
[2023-05-21] MEDS ORDERED: NIFEdipine XL 30 MG TAB.ER.24 PO SCH (09:00)
[2023-05-21] MEDS ORDERED: LOSARTAN 50 MG TAB PO SCH (09:00)
== END 2023-05-20 17:02 | disposition home or self-care (01) ==
LOC: EC 16:11 → 6NMEDSUR 18:40
PROVIDERS: ADMIT Hospitalist; ATTEND Hospitalist
DX: I25.110 Atherosclerotic heart disease of native coronary artery with unstable angina pectoris (principal); K21.9 Gastro-esophageal reflux disease without esophagitis; E78.5 Hyperlipidemia, unspecified; E11.40 Type 2 diabetes mellitus with diabetic neuropathy, unspecified; N17.9 Acute kidney failure, unspecified; I13.2 Hypertensive heart and chronic kidney disease with heart failure and with stage 5 chronic kidney disease, or end stage renal disease; I50.32 Chronic diastolic (congestive) heart failure; N18.6 End stage renal disease; E11.22 Type 2 diabetes mellitus with diabetic chronic kidney disease; F32.A Depression, unspecified; F41.9 Anxiety disorder, unspecified; N40.1 Benign prostatic hyperplasia with lower urinary tract symptoms; R33.8 Other retention of urine; I34.0 Nonrheumatic mitral (valve) insufficiency; M89.8X9 Other specified disorders of bone, unspecified site; I25.5 Ischemic cardiomyopathy; I25.2 Old myocardial infarction; Z86.73 Personal history of transient ischemic attack (TIA), and cerebral infarction without residual deficits; Z95.5 Presence of coronary angioplasty implant and graft; Z99.2 Dependence on renal dialysis; Z79.4 Long term (current) use of insulin; Z79.82 Long term (current) use of aspirin; Z79.899 Other long term (current) drug therapy; Z79.02 Long term (current) use of antithrombotics/antiplatelets
CPT/HCPCS: 96361 ×2; 96374; 96375; 99285; 36415; 93005; 93308; 83880; 80053 ×2; 83690; 83735 ×2; 84100; 84484 ×2; 85025 ×2; 85610; 85730; 71045; G0378 ×2; J2270; J2405

== ENCOUNTER 2023-05-28 16:04 | Emergency (ER) | payer MEDICARE ==
--- NOTE | 2023-05-28 17:22 | ED ---
General Adult HPI - General Source: patient, family Mode of arrival: wheelchair Limitations: no limitations <Jimmy Nevarez - Last Filed: 05/28/23 17:22> <Li Pierce - Last Filed: 05/28/23 23:47> - General Chief complaint: Urogenital Stated complaint: headache Time Seen by Provider: 05/28/23 17:22 - History of Present Illness Initial comments: 57-year-old male with a past medical history significant for chronic urinary retention presenting to the ED with a chief complaint of urinary retention. Patient states had his Garcia catheter removed by his urologist on Thursday. Since then, notes he has been unable to urinate. Now states he is having some pain of his lower abdomen as well. (Jimmy Nevarez) 57-year-old male with history of chronic kidney disease on hemodialysis presents to the emergency department for chief complaint of unable to urinate. He states he last urinated 24 hours ago. He states that he was seen at urology on Thursday. He had a Garcia catheter at that time which was removed. He states that he was urinating normally for around one day but then started to have a decrease in urine production. He does admit to dysuria. Denies hematuria. His last dialysis was today. He reports that he goes to dialysis Thursday, , Thursday. (Li Pierce) - Related Data Home Medications Medication Instructions Recorded Confirmed Pantoprazole [Protonix] 40 mg PO BID 11/05/17 05/19/23 Tamsulosin [Flomax] 0.8 mg PO HS 11/05/17 05/19/23 Citalopram Hydrobromide [CeleXA] 20 mg PO DAILY 12/12/18 05/19/23 allopurinoL [Zyloprim] 100 mg PO DAILY 04/05/19 05/19/23 Atorvastatin [Lipitor] 80 mg PO HS 12/30/19 05/19/23 Isosorbide Mononitrate ER [Imdur] 60 mg PO DAILY 12/30/19 05/19/23 Citalopram Hydrobromide [CeleXA] 40 mg PO DAILY 06/29/20 05/19/23 Loratadine [Claritin] 10 mg PO DAILY 01/21/21 05/19/23 Lurasidone [Latuda] 40 mg PO HS 06/20/22 05/19/23 Ondansetron Odt [Zofran ODT] 4 mg PO BID PRN 06/20/22 05/19/23 Triamcinolone 0.1% Cream [Kenalog 1 applic TOPICAL BID PRN 06/20/22 05/19/23 0.1% Cream] Darbepoetin Omari [Aranesp] 60 mcg SQ Q14D 01/30/23 05/19/23 Docusate [Colace] 100 mg PO DAILY 01/30/23 05/19/23 Folic Acid/Vit B Complex and C 0.8 mg PO DAILY 05/05/23 05/19/23 [Nephro-Cirilo Tablet] Gabapentin [Neurontin] 300 mg PO HS 05/05/23 05/19/23 INSULIN ASPART (NovoLOG) [NovoLOG See Protocol SQ AC-TID 05/05/23 05/19/23 (formulary)] Metoprolol Tartrate [Lopressor] 50 mg PO BID 05/05/23 05/19/23 Previous Rx's Medication Instructions Recorded Aspirin [[place] Aspirin EC] 81 mg PO DAILY #30 tab 03/18/23 Calcium Acetate [PhosLo] 667 mg PO TID-W/MEALS #90 tab 03/18/23 Clopidogrel [Plavix] 75 mg PO HS #30 tab 03/18/23 Insulin Detemir (Levemir) [Levemir] 10 unit SQ HS #10 ml 03/18/23 Furosemide [Lasix] 80 mg PO DAILY #60 tab 05/08/23 hydrALAZINE HCL 50 mg PO TID #90 tablet 05/08/23 Losartan [Cozaar] 50 mg PO DAILY #30 tab 05/20/23 NIFEdipine XL [Procardia XL] 60 mg PO DAILY #60 tab 05/20/23 Cephalexin [Keflex] 500 mg PO Q6HR #28 cap 05/28/23 Allergies Allergy/AdvReac Type Severity Reaction Status Date / Time Iodinated Contrast Media AdvReac Nausea & Verified 05/19/23 19:30 [Iodinated Contrast- Oral Vomiting and IV Dye] sucralfate AdvReac Nausea & Verified 05/19/23 19:30 Vomiting Review of Systems ROS Other: All systems not noted in ROS Statement are negative. <Jimmy Nevarez - Last Filed: 05/28/23 17:22> ROS Other: All systems not noted in ROS Statement are negative. <Li Pierce - Last Filed: 05/28/23 23:47> ROS Statement: Those systems with pertinent positive or pertinent negative responses have been documented in the HPI. Past Medical History Past Medical History: Coronary Artery Disease (CAD), CVA/TIA, Diabetes Mellitus, GERD/Reflux, Hyperlipidemia, Hypertension, Myocardial Infarction (ND), Renal Disease, Rheumatoid Arthritis (RA) Additional Past Medical History / Comment(s): stroke apr 2017, migranes, diabetic neuropathy arms and legs, stage 3 kidney failure, PANCREATITIS, LEGALLY BLIND, enlarged prostate, trouble urinating Last Myocardial Infarction Date:: 2014 History of Any Multi-Drug Resistant Organisms: None Reported Past Surgical History: Cholecystectomy, Heart Catheterization With Stent, Heart Catheterization With Stent Additional Past Surgical History / Comment(s): Dialysis Port - 03/14/23. Prostrate surgery. HIATAL HERNIA REPAIR -January Past Anesthesia/Blood Transfusion Reactions: No Reported Reaction Additional Past Anesthesia/Blood Transfusion Reaction / Comment(s): never had anethesia Date of Last Stent Placement:: 2017 Past Psychological History: Anxiety, Depression Smoking Status: Never smoker Past Alcohol Use History: None Reported Past Drug Use History: None Reported - Past Family History Mother Family Medical History: CVA/TIA, Diabetes Mellitus, Hypertension Additional Family Medical History / Comment(s): Parkinson's Mother Father Family Medical History: CVA/TIA, Diabetes Mellitus, Myocardial Infarction (ND) Additional Family Medical History / Comment(s): Father of a ND in his 50s. <Jimmy Nevarez - Last Filed: 05/28/23 17:22> General Exam Limitations: no limitations General appearance: alert, in no apparent distress Neck exam: Present: normal inspection Extremities exam: Present: normal inspection Back exam: Present: normal inspection <Jimmy Nvearez - Last Filed: 05/28/23 17:22> Limitations: no limitations General appearance: alert, in no apparent distress Head exam: Present: atraumatic, normocephalic, normal inspection Eye exam: Present: normal appearance ENT exam: Present: normal exam, mucous membranes moist Neck exam: Present: normal inspection. Absent: tenderness, meningismus, lymphadenopathy Respiratory exam: Present: normal lung sounds bilaterally. Absent: respiratory distress, wheezes, rales, rhonchi, stridor Cardiovascular Exam: Present: regular rate, normal rhythm, normal heart sounds. Absent: systolic murmur, diastolic murmur, rubs, gallop, clicks GI/Abdominal exam: Present: soft, distended, normal bowel sounds. Absent: tenderness, guarding, rebound, rigid Extremities exam: Present: normal inspection Back exam: Present: normal inspection Neurological exam: Present: alert, oriented X3 Psychiatric exam: Present: normal affect, normal mood Skin exam: Present: warm, dry, intact, normal color. Absent: rash <Li Pierce - Last Filed: 05/28/23 23:47> Course Vital Signs 05/28/23 05/28/23 05/28/23 16:08 18:50 20:00 Temperature 98.2 F 98.1 F Pulse Rate 62 68 60 Respiratory 20 16 16 Rate Blood Pressure 113/68 112/68 168/80 O2 Sat by Pulse 99 97 97 Oximetry 05/28/23 21:35 Temperature 98.2 F Pulse Rate 61 Respiratory 16 Rate Blood Pressure 148/80 O2 Sat by Pulse 97 Oximetry Medical Decision Making <Jimmy Nevarez - Last Filed: 05/28/23 17:22> <Li Pierce - Last Filed: 05/28/23 23:47> - Medical Decision Making Quicknote portion performed. Signed Jimmy Nevarez PA-C (Jimmy Nevarez) Was pt. sent in by a medical professional or institution ([facility], [facility], urgent care, hospital, or [facility]...) When possible be specific @ -No Did you speak to anyone other than the patient for history (EMS, parent, family, police, friend...)? What history was obtained from this source @ -No Did you review nursing and triage notes (agree or disagree)? Why? @ -I reviewed and agree with nursing and triage notes Were old charts reviewed (outside hosp., previous admission, EMS record, old EKG, old radiological studies, urgent care reports/EKG's, [facility] records)? Report findings @ -No old charts were reviewed Differential Diagnosis (chest pain, altered mental status, abdominal pain women, abdominal pain men, vaginal bleeding, weakness, fever, dyspnea, syncope, headache, dizziness, GI bleed, back pain, seizure, CVA, palpatations, mental health, musculoskeletal)? @ -UTI, urinary retention, this list is not all-inclusive EKG interpreted by me (3pts min.). @ -None X-rays interpreted by me (1pt min.). @ -None done CT interpreted by me (1pt min.). @ -None done U/S interpreted by me (1pt. min.). @ -None done What testing was considered but not performed or refused? (CT, X-rays, U/S, labs)? Why? @ -None What meds were considered but not given or refused? Why? @ -None Did you discuss the management of the patient with other professionals (professionals i.e. , PA, [facility], lab, RT, psych nurse, director social service, home school teacher, teacher, chief quality officer, senior case manager)? Give summary @ -No Was smoking cessation discussed for >3mins.? @ -No Was critical care preformed (if so, how long)? @ -No Were there social determinants of health that impacted care today? How? (Homelessness, low income, unemployed, alcoholism, drug addiction, transportation, low edu. Level, literacy, decrease access to med. care, alf, rehab)? @ -No Was there de-escalation of care discussed even if they declined (Discuss DNR or withdrawal of care, Hospice)? DNR status @ -No What co-morbidities impacted this encounter? (DM, HTN, Smoking, COPD, CAD, Cancer, CVA, ARF, Chemo, Hep., AIDS, mental health diagnosis, sleep apnea, morbid obesity)? @ -None Was patient admitted / discharged? Hospital course, mention meds given and route, prescriptions, significant lab abnormalities, going to OR and other pertinent info. @ -Discharge. Patient presented to the emergency department for chief complaint of minimal urine production over the past 24 hours. He does admit to burning with urination. Bladder scanned obtained which showed 201. Garcia catheter was placed. Urine sample obtained which shows a large WBCs, moderate leukocyte esterase, wbc clumps. Patient given a dose of Rocephin in the emergency department. The Garcia catheter will remain in place and he will follow-up with his urologist. Patient understanding agreeable with plan. P atient stable at time of discharge. Case discussed with Dr. Pantoja. Undiagnosed new problem with uncertain prognosis? @ -No Drug Therapy requiring intensive monitoring for toxicity (Heparin, Nitro, Insulin, Cardizem)? @ -No Were any procedures done? @ -No Diagnosis/symptom? @ -UTI Acute, or Chronic, or Acute on Chronic? @ -Acute Uncomplicated (without systemic symptoms) or Complicated (systemic symptoms)? @ -Uncomplicated Side effects of treatment? @ -No Exacerbation, Progression, or Severe Exacerbation? @ -No Poses a threat to life or bodily function? How? (Chest pain, [place], ND, pneumonia, PE, COPD, DKA, ARF, appy, cholecystitis, CVA, Diverticulitis, Homicidal, Suicidal, threat to staff... and all critical care pts) @ -No (Li Pierce) - Lab Data Lab Results 05/28/23 Range/Units 18:47 Urine Color Light Yellow Urine Appearance Cloudy (Clear) Urine pH 5.0 (5.0-8.0) Ur Specific [place] 1.030 (1.001-1.035) Urine Protein 4+ H (Negative) Urine Glucose (UA) 2+ (Negative) Urine Ketones 3+ (Negative) Urine Blood Negative (Negative) Urine Nitrite Negative (Negative) Urine Bilirubin Negative (Negative) Urine Urobilinogen <2.0 (<2.0) mg/dL Ur Leukocyte Esterase Moderate H (Negative) Urine RBC 6 H (0-5) /hpf Urine WBC >182 H (0-5) /hpf Urine WBC Clumps Many H (None) /hpf Urine Bacteria Rare H (None) /hpf Urine Mucus Rare H (None) /hpf Disposition <Jimmy Nevarez - Last Filed: 05/28/23 17:22> Is patient prescribed a controlled substance at d/c from ED?: No <Li Pierce - Last Filed: 05/28/23 23:47> Clinical Impression: Urinary tract infection Disposition: HOME SELF-CARE Condition: Stable Instructions (If sedation given, give patient instructions): Urinary Tract Infection in Men (ED) Additional Instructions: Please pick up operator antibiotics and take to completion. Follow up with Dr. Harris. Return to the emergency department for new or worsening symptoms. Prescriptions: Cephalexin [Keflex] 500 mg PO Q6HR #28 cap Referrals: Lamar Scott MD [Primary Care Provider] - 1-2 days
[2023-05-28] MEDS ORDERED: HYDROcodone/APAP 5-325MG 1 EACH TAB PO STA (18:30)
[2023-05-28 19:09] VITALS: RESP 16
[2023-05-28 19:57] LABS: Appearance,Urine Cloudy (Clear); Color,Urine Light Yellow
[2023-05-28 19:58] LABS: Bilirubin,Urine Negative (Negative); Blood,Urine Negative (Negative); Protein,Urine 4+ (Negative)
[2023-05-28 19:59] LABS: Leukocyte Esterase,Urine Moderate (Negative); Nitrite,Urine Negative (Negative); Urobilinogen,Urine <2.0 mg/dL (<2.0)
[2023-05-28 20:05] LABS: Glucose,Urine (UA) 2+ (Negative)
[2023-05-28 20:09] LABS: Ketones,Urine 3+ (Negative)
[2023-05-28 20:12] LABS: Bacteria,Urine Rare /hpf; Mucus,Urine Rare /hpf; RBC,Urine 6 /hpf (0-5); WBC,Urine >182 /hpf (0-5)
[2023-05-28] MEDS ORDERED: cefTRIAXone 1,000 MG VIAL (IM USE) IM STA (20:59)
[2023-05-28 21:40] VITALS: BP 148/80; PULSE 61; TEMP 98.2
== END 2023-05-28 21:45 | disposition home or self-care (01) ==
LOC: EC 16:04
DX: N39.0 Urinary tract infection, site not specified (principal); I25.10 Atherosclerotic heart disease of native coronary artery without angina pectoris; E11.42 Type 2 diabetes mellitus with diabetic polyneuropathy; K21.9 Gastro-esophageal reflux disease without esophagitis; E78.5 Hyperlipidemia, unspecified; I12.0 Hypertensive chronic kidney disease with stage 5 chronic kidney disease or end stage renal disease; N18.6 End stage renal disease; I25.2 Old myocardial infarction; F41.9 Anxiety disorder, unspecified; F32.A Depression, unspecified; Z79.899 Other long term (current) drug therapy; Z79.4 Long term (current) use of insulin; Z91.041 Radiographic dye allergy status; Z88.8 Allergy status to other drugs, medicaments and biological substances
CPT/HCPCS: 51702; 99284; 96372; 51798; 81001; J0696

== ENCOUNTER 2023-07-01 10:07 | Day surgery (SDC) | payer MEDICARE ==
[2023-06-29 11:55] VITALS: BMI 26.6
[~2023-07-01 10:07] MED LIST changes: +HYDROmorphone 0.5 MG/0.5 ML SYRINGE IVP PRN; +LIDOCAINE 1% (10MG/ML) FOR IV START INTRADERMA PRN; +ONDANSETRON 4 MG/2 ML VIAL IVP ONE
[2023-07-01] MEDS ORDERED: SODIUM CHLORIDE 0.9% 1,000 ML IV ONE (11:11)
[2023-07-01 11:20] LABS: Glucose,Whole Blood 234 mg/dL (70-110)
[2023-07-01 11:28] VITALS: TEMP 98
[2023-07-01] MEDS ORDERED: ONDANSETRON 4 MG/2 ML VIAL IVP ONE ×2 (11:28)
[2023-07-01] MEDS ORDERED: INSULIN ASPART (NovoLOG) 100 UNIT/ML VIAL SQ ONE (11:53)
[2023-07-01] MEDS ORDERED: MIDAZOLAM 2 MG/2 ML VIAL IVP ONE (11:57)
[2023-07-01] MEDS ORDERED: fentaNYL (PF) 50 MCG/1 ML VIAL IVP ONE (11:57)
[2023-07-01] MEDS ORDERED: fentaNYL (PF) 50 MCG/ML 2 ML AMP ONE (13:05)
[2023-07-01] MEDS ORDERED: SODIUM CHLORIDE 0.9% (PF) 10 ML VIAL ONE (13:05)
[2023-07-01] MEDS ORDERED: LIDOCAINE 1% INJ 10MG/ML (20 ML MDV) ONE (13:05)
[2023-07-01] MEDS ORDERED: PROPOFOL 10 MG/ML 20 ML VIAL IV ONE (13:05)
[2023-07-01] MEDS ORDERED: ROPIVACAINE 5 MG/ML 30 ML VIAL ONE (13:05)
[2023-07-01] MEDS ORDERED: ePHEDrine 50 MG/ML 1 ML VIAL ONE (13:05)
[2023-07-01] MEDS ORDERED: LIDOCAINE 1% INJ 10MG/ML (20 ML MDV) SQ ONE (13:07)
[2023-07-01] MEDS ORDERED: GELATIN SPONGE,ABSORB (LARGE) 1 EACH SPONGE TOPICAL ONE (13:07)
[2023-07-01] MEDS ORDERED: THROMBIN (BOVINE) 5,000 UNIT VIAL TOPICAL ONE (13:07)
--- NOTE | 2023-07-01 13:14 | P.HPIHPCON ---
History of Present Illness H&P Date: 07/01/23 Pt is a 57 year old male in for creation of fistula. He underwent ultrasounds and was found to have sufficient sized cephalic vein. Due to this and the inability to hold antiplatelt for relatively recent cardiac stnet the plan is made for creation of a radiocephalic fistula. Risks and benefits have been discussed and he seemingly understands and wants to proceed. Consent for Procedure: I have explained the operation/procedure to the patient, including the risks, benefits, side effects, alternative therapies (including not receiving the proposed treatment or service), the likelihood of the patient achieving his/her goals, and potential recuperation problems for the procedure/sedation/analgesia, as well as any blood products, if indicated. I also explained to the patient the risks, benefits and side effects of the alternatives, as well as the risks related to not receiving the proposed procedure, care, treatment, or services. Past Medical History Past Medical History: Coronary Artery Disease (CAD), CVA/TIA, Diabetes Mellitus, Eye Disorder, GERD/Reflux, Hearing Disorder / Deafness, Hyperlipidemia, Hyperte nsion, Myocardial Infarction ([place]), Prostate Disorder, Renal Disease, Rheumatoid Arthritis (RA) Additional Past Medical History / Comment(s): [place] X2 in 2014 and 02/2023. 02 3L/[place] . Hx stroke Apr 2017. Migranes. Diabetic neuropathy arms and legs, tremors off and on, circulation problems, uses quad cane and wheelchair. Stage 3 kidney failure, dialysis [facility]. Hx Pancreatitis. Legally blind, some trouble hearing. Enlarged prostate, trouble urinating. Last Myocardial Infarction Date:: 03/14 History of Any Multi-Drug Resistant Organisms: None Reported Past Surgical History: Cholecystectomy, Heart Catheterization With Stent, Heart Catheterization With Stent, Hernia Repair, Prostate Surgery Additional Past Surgical History / Comment(s): Dialysis Port Placed - 03/14/23, HIATAL HERNIA REPAIR - 01/23/21. Past Anesthesia/Blood Transfusion Reactions: No Reported Reaction Additional Past Anesthesia/Blood Transfusion Reaction / Comment(s): never had anethesia Date of Last Stent Placement:: 05/07/23 Past Psychological History: Anxiety, Depression Smoking Status: Never smoker Past Alcohol Use History: None Reported Past Drug Use History: None Reported - Past Family History Mother Family Medical History: CVA/TIA, Diabetes Mellitus, Hypertension Additional Family Medical History / Comment(s): Parkinson's. Father Family Medical History: CVA/TIA, Diabetes Mellitus, Myocardial Infarction ([place]) Additional Family Medical History / Comment(s): Father of a [place] in his 50s. Medications and Allergies Home Medications Medication Instructions Recorded Confirmed Type Pantoprazole [Protonix] 40 mg PO BID 11/05/17 07/01/23 History Tamsulosin [Flomax] 0.8 mg PO HS 11/05/17 07/01/23 History Citalopram Hydrobromide [CeleXA] 20 mg PO DAILY 12/12/18 07/01/23 History allopurinoL [Zyloprim] 100 mg PO DAILY 04/05/19 07/01/23 History Atorvastatin [Lipitor] 80 mg PO HS 12/30/19 07/01/23 History Isosorbide Mononitrate ER [Imdur] 60 mg PO DAILY 12/30/19 07/01/23 History Citalopram Hydrobromide [CeleXA] 40 mg PO DAILY 06/29/20 07/01/23 History Loratadine [Claritin] 10 mg PO DAILY 01/21/21 07/01/23 History Lurasidone [Latuda] 40 mg PO HS 06/20/22 07/01/23 History Ondansetron Odt [Zofran ODT] 4 mg PO BID PRN 06/20/22 07/01/23 History Triamcinolone 0.1% Cream [Kenalog 1 applic TOPICAL BID PRN 06/20/22 07/01/23 History 0.1% Cream] Darbepoetin Omari [Aranesp] 60 mcg SQ Q14D 01/30/23 07/01/23 History Docusate [Colace] 100 mg PO DAILY 01/30/23 07/01/23 History Aspirin [[place] Aspirin EC] 81 mg PO DAILY #30 tab 03/18/23 07/01/23 Rx Calcium Acetate [PhosLo] 667 mg PO TID-W/MEALS #90 tab 03/18/23 07/01/23 Rx Clopidogrel [Plavix] 75 mg PO HS #30 tab 03/18/23 07/01/23 Rx Insulin Detemir (Levemir) [Levemir] 10 unit SQ HS #10 ml 03/18/23 07/01/23 Rx Folic Acid/Vit B Complex and C 0.8 mg PO DAILY 05/05/23 07/01/23 History [Nephro-Cirilo Tablet] Gabapentin [Neurontin] 300 mg PO HS 05/05/23 07/01/23 History INSULIN ASPART (NovoLOG) [NovoLOG See Protocol SQ AC-TID 05/05/23 07/01/23 History (formulary)] Metoprolol Tartrate [Lopressor] 50 mg PO BID 05/05/23 07/01/23 History Furosemide [Lasix] 80 mg PO DAILY #60 tab 05/08/23 07/01/23 Rx hydrALAZINE HCL 50 mg PO TID #90 tablet 05/08/23 07/01/23 Rx Losartan [Cozaar] 50 mg PO DAILY #30 tab 05/20/23 07/01/23 Rx NIFEdipine XL [Procardia XL] 30 mg PO DAILY 06/29/23 07/01/23 History Allergies Allergy/AdvReac Type Severity Reaction Status Date / Time Iodinated Contrast Media AdvReac Nausea & Verified 07/01/23 10:56 [Iodinated Contrast- Oral Vomiting and IV Dye] sucralfate AdvReac Nausea & Verified 07/01/23 10:56 Vomiting Surgical - Exam Vital Signs Temp Pulse Resp BP Pulse Ox 98.0 F 62 16 157/74 96 07/01/23 11:08 07/01/23 11:08 07/01/23 11:08 07/01/23 11:08 07/01/23 11:08 NAD, right chest wall catheter in place. right cephalic vein adequate sized on physical. Palpable radial pulse Results - Labs 07/01/23 11:25 Abnormal Lab Results - Last 24 Hours (Table) 07/01/23 Range/Units 11:18 POC Glucose (mg/dL) 234 H (70-110) mg/dL Diabetes panel 07/01/23 Range/Units 11:25 Potassium 4.9 (3.5-5.1) mmol/L Pituitary panel 07/01/23 Range/Units 11:25 Potassium 4.9 (3.5-5.1) mmol/L Adrenal panel 07/01/23 Range/Units 11:25 Potassium 4.9 (3.5-5.1) mmol/L Assessment and Plan Assessment: esrd Plan: R radiocephalic fistula
[2023-07-01] MEDS ORDERED: HEPARIN SODIUM,PORCINE (1 ML) 2,000 UNIT in SODIUM CHLORIDE 0.9% 500 ML 500 ML IRRIGATION ONE (13:33)
[2023-07-01] MEDS ORDERED: ceFAZolin 2 GM in SODIUM CHLORIDE 0.9% 500 ML 500 ML IRRIGATION ONE (13:33)
--- NOTE | 2023-07-01 14:32 | P.OP ---
Date of Procedure: 07/01/23 Description of Procedure: Preoperative diagnosis: End-stage renal disease Postoperative diagnosis: Same Procedure: Creation of right radiocephalic fistula Surgeon: Ashly Garcia D.O. Anesthesia: Monitored sedation with regional block Microarray Specialist: Yolanda EBL: 15 mL IV fluids: See records Urine output: Not measured Drains: None Complications: None immediately apparent stable to recovery Condition: Stable to recovery Operative indication and findings: The patient is a 57-year-old with end-stage renal disease who presents for fistula creation. Preoperative imaging showed appropriate size vessels for a radiocephalic fistula. Risks and benefits were discussed. The patient seemingly understood and was willing to proceed Procedure in detail: The patient was taken the operative suite and placed in supine position. The upper extremity was prepped and draped in usual sterile fashion. A preprocedure timeout was performed, all parties are in agreement. The radial pulse was felt the cephalic vein was visualized. The skin was anesthetized 1% lidocaine plain and a longitudinal incision was made between the radial pulse in the cephalic vein. It was carried down through subcutaneous tissues with electrocautery. The radial artery was identified, it was on the smaller side but still adequately pulsatile. It was dissected free proximally and distally and encircled with vessel loop. Attention was then turned towards the vein. The subcutaneous tissues were bluntly dissected to the level of the vein. The vein was Cleared circumferentially and at the most distal portion it was suture ligated. The transected portion of the vein was then serially dilated. An arteriotomy was performed after control of the vessel. 6-0 silk stay sutures were placed. An anastomosis created using 7-0 Prolene. Prior to completion of the anastomosis the artery was allowed to backbleed and forward bleed, the vein was flushed. The anastomosis was completed. Hemostasis appeared adequate. Blood flow was pulsatile distal to the anastomosis and confirmed with Doppler signal. The area was copiously irrigated. The fistula once more inspected for any further branches to ligate. The wound was then closed. The deep dermal tissues were reapproximated with interrupted sutures of 3-0 Vicryl. The skin was reapproximated with running 4-0 Monocryl. Skin glue was placed. The patient was transferred to recovery in stable condition having tolerated the procedure well Plan - Discharge Summary Discharge Rx Participant: No New Discharge Prescriptions: No Action Pantoprazole [Protonix] 40 mg PO BID Tamsulosin [Flomax] 0.8 mg PO HS Citalopram Hydrobromide [CeleXA] 20 mg PO DAILY allopurinoL [Zyloprim] 100 mg PO DAILY Isosorbide Mononitrate ER [Imdur] 60 mg PO DAILY Atorvastatin [Lipitor] 80 mg PO HS Citalopram Hydrobromide [CeleXA] 40 mg PO DAILY Triamcinolone 0.1% Cream [Kenalog 0.1% Cream] 1 applic TOPICAL BID PRN PRN Reason: Skin Irritation Darbepoetin Omari [Aranesp] 60 mcg SQ Q14D Insulin Detemir (Levemir) [Levemir] 10 unit SQ HS #10 ml Clopidogrel [Plavix] 75 mg PO HS #30 tab Aspirin [[place] Aspirin EC] 81 mg PO DAILY #30 tab Gabapentin [Neurontin] 300 mg PO HS Metoprolol Tartrate [Lopressor] 50 mg PO BID Furosemide [Lasix] 80 mg PO DAILY #60 tab Losartan [Cozaar] 50 mg PO DAILY #30 tab Loratadine [Claritin] 10 mg PO DAILY Lurasidone [Latuda] 40 mg PO HS Ondansetron Odt [Zofran ODT] 4 mg PO BID PRN PRN Reason: Nausea Docusate [Colace] 100 mg PO DAILY Calcium Acetate [PhosLo] 667 mg PO TID-W/MEALS #90 tab INSULIN ASPART (NovoLOG) [NovoLOG (formulary)] See Protocol SQ AC-TID Folic Acid/Vit B Complex and C [Nephro-Cirilo Tablet] 0.8 mg PO DAILY hydrALAZINE HCL 50 mg PO TID #90 tablet NIFEdipine XL [Procardia XL] 30 mg PO DAILY Discharge Medication List Pantoprazole [Protonix] 40 mg PO BID 11/05/17 [History] Tamsulosin [Flomax] 0.8 mg PO HS 11/05/17 [History] Citalopram Hydrobromide [CeleXA] 20 mg PO DAILY 12/12/18 [History] allopurinoL [Zyloprim] 100 mg PO DAILY 04/05/19 [History] Atorvastatin [Lipitor] 80 mg PO HS 12/30/19 [History] Isosorbide Mononitrate ER [Imdur] 60 mg PO DAILY 12/30/19 [History] Citalopram Hydrobromide [CeleXA] 40 mg PO DAILY 06/29/20 [History] Loratadine [Claritin] 10 mg PO DAILY 01/21/21 [History] Lurasidone [Latuda] 40 mg PO HS 06/20/22 [History] Ondansetron Odt [Zofran ODT] 4 mg PO BID PRN 06/20/22 [History] Triamcinolone 0.1% Cream [Kenalog 0.1% Cream] 1 applic TOPICAL BID PRN 06/20/22 [History] Darbepoetin Omari [Aranesp] 60 mcg SQ Q14D 01/30/23 [History] Docusate [Colace] 100 mg PO DAILY 01/30/23 [History] Aspirin [[place] Aspirin EC] 81 mg PO DAILY #30 tab 03/18/23 [Rx] Calcium Acetate [PhosLo] 667 mg PO TID-W/MEALS #90 tab 03/18/23 [Rx] Clopidogrel [Plavix] 75 mg PO HS #30 tab 03/18/23 [Rx] Insulin Detemir (Levemir) [Levemir] 10 unit SQ HS #10 ml 03/18/23 [Rx] Folic Acid/Vit B Complex and C [Nephro-Cirilo Tablet] 0.8 mg PO DAILY 05/05/23 [History] Gabapentin [Neurontin] 300 mg PO HS 05/05/23 [History] INSULIN ASPART (NovoLOG) [NovoLOG (formulary)] See Protocol SQ AC-TID 05/05/23 [History] Metoprolol Tartrate [Lopressor] 50 mg PO BID 05/05/23 [History] Furosemide [Lasix] 80 mg PO DAILY #60 tab 05/08/23 [Rx] hydrALAZINE HCL 50 mg PO TID #90 tablet 05/08/23 [Rx] Losartan [Cozaar] 50 mg PO DAILY #30 tab 05/20/23 [Rx] NIFEdipine XL [Procardia XL] 30 mg PO DAILY 06/29/23 [History] Follow up Appointment(s)/Referral(s): Ashly Garcia DO [STAFF PHYSICIAN] - 2 Weeks Activity/Diet/Wound Care/Special Instructions: May use [id number] medications for pain control. Resume home medications including antiplatelet medications. Resume regular diet. Resume relatively regular activity, may be that as previous. No heavy lifting. Discharge Disposition: HOME SELF-CARE
[2023-07-01 15:03] VITALS: RESP 14
[2023-07-01 15:27] VITALS: BP 138/78; PULSE 65
--- NOTE | 2023-07-01 19:26 | P.ANPRN ---
Procedure Note - Anesthesia - Nerve Block Performed Left Axillary Single Time Out Performed: Yes ([id number]) Date of Procedure: 07/01/23 Procedure Start Time: 11:57 Procedure Stop Time: 12:02 Location of Patient: PreOp Indication: Acute Post-Operative Pain, Requested by Surgeon Specifically requested for management of pain by DrGerman: Ashly aGrcia Sedation Type: Sedate with meaningful contact maintained Preparation: Sterile Prep Position: Supine (arm over) Catheter: None Needle Types: [place] Needle Gauge: 21 Ultrasound used to visualize needle placement: Yes Ultrasound used to observe medication spread: Yes Injectate: 0.5% Ropivacaine (see comment for volume) (30cc + 10cc nacl pf. 10cc aliqouts at each median ulnar radial and mskcut) Blood Aspirated: No Pain Paresthesia on Injection Noted: No Resistance on Injection: Normal Image Stored and Saved: Yes Events: Uneventful and Well Tolerated
== END 2023-07-01 16:27 | disposition home or self-care (01) ==
LOC: OR 10:07
PROVIDERS: ATTEND Surgery
DX: N18.6 End stage renal disease (principal); I25.10 Atherosclerotic heart disease of native coronary artery without angina pectoris; I25.2 Old myocardial infarction; I11.0 Hypertensive heart disease with heart failure; E11.22 Type 2 diabetes mellitus with diabetic chronic kidney disease; E78.5 Hyperlipidemia, unspecified; F41.9 Anxiety disorder, unspecified; F32.A Depression, unspecified; G43.909 Migraine, unspecified, not intractable, without status migrainosus; Z86.73 Personal history of transient ischemic attack (TIA), and cerebral infarction without residual deficits; Z82.49 Family history of ischemic heart disease and other diseases of the circulatory system; Z87.442 Personal history of urinary calculi; Z91.041 Radiographic dye allergy status; Z88.2 Allergy status to sulfonamides; Z79.82 Long term (current) use of aspirin; Z79.899 Other long term (current) drug therapy
CPT/HCPCS: 36821; 64415; 84132; J2250; J1644; J0690; J2405; J2001; J3010 ×2; J2795; J2704

== ENCOUNTER 2023-08-27 08:39 | Day surgery (SDC) | payer MEDICARE ==
[2023-08-24 13:08] VITALS: BMI 25.1
[~2023-08-27 08:39] MED LIST changes: +DEXAMETHASONE SOD PHOSPHATE 4 MG/ML 1 ML VIAL IV ONE; -LIDOCAINE 1% (10MG/ML) FOR IV START INTRADERMA PRN; -ONDANSETRON 4 MG/2 ML VIAL IVP ONE
[2023-08-27 10:17] LABS: Glucose,Whole Blood 248 mg/dL (70-110)
[2023-08-27] MEDS: SODIUM CHLORIDE 0.9% 1,000 ML IV ONE (10:20)
[2023-08-27] MEDS: ONDANSETRON 4 MG/2 ML VIAL IVP ONE (10:42)
[2023-08-27] MEDS: MIDAZOLAM 2 MG/2 ML VIAL IVP ONE (10:42)
[2023-08-27] MEDS: INSULIN ASPART (NovoLOG) 100 UNIT/ML VIAL SQ ONE (10:43)
[2023-08-27 10:47] VITALS: RESP 16; TEMP 97.3
[2023-08-27] MEDS ORDERED: fentaNYL (PF) 50 MCG/ML 2 ML AMP ONE (10:50)
[2023-08-27] MEDS ORDERED: MIDAZOLAM 2 MG/2 ML VIAL ONE (10:50)
[2023-08-27] MEDS ORDERED: PROPOFOL 10 MG/ML 20 ML VIAL IV ONE (10:50)
[2023-08-27] MEDS: LIDOCAINE 1% INJ 10MG/ML (20 ML MDV) SQ ONE ×2 (11:19)
--- NOTE | 2023-08-27 11:56 | P.OP ---
Date of Procedure: 08/27/23 Description of Procedure: Preoperative diagnosis: End-stage renal disease, AV fistula sidebranch Postoperative diagnosis: Same Procedure: Ligation of right upper extremity AV fistula sidebranch Surgeon: Ashly Garcia D.O. EBL: Less than 5 cc IV fluids: See records Urine output: Not measured Drains: None Complications: None immediately apparent Condition: Stable to recovery Operative indication and findings: Patient is a 57-year-old male with end-stage renal disease who had creation of a right upper extremity radiocephalic fistula. At last evaluation was found to have a sidebranch with nonmaceration of the distal portion therefore was recommended to undergo ligation. Risk and benefits were discussed. He seemingly understood and was willing to proceed. Procedure in detail: Patient was taken to the operative suite and placed in supine position. Right upper extremity was prepped and draped in usual sterile fashion. A preprocedural timeout was performed, all parties were in agreement. Previously the ultrasound was utilized to identify the area of the sidebranch. Incision was made after proper anesthetization of the skin and carried down to the level of the sidebranch. It was encircled and test clamped which caused improved thrill through the AV fistula therefore was ligated with 3-0 silk tie. The area was then copiously irrigated. The incision was then reapproximated interrupted sutures with 3-0 Vicryl followed by running 4-0 Monocryl and subcutaneous fashion and placement of skin glue. Patient was allowed awaken from anesthesia and transferred to recovery in stable condition. Plan - Discharge Summary Discharge Rx Participant: No New Discharge Prescriptions: No Action Pantoprazole [Protonix] 40 mg PO BID Tamsulosin [Flomax] 0.8 mg PO HS Citalopram Hydrobromide [CeleXA] 20 mg PO DAILY allopurinoL [Zyloprim] 100 mg PO DAILY Isosorbide Mononitrate ER [Imdur] 60 mg PO DAILY Atorvastatin [Lipitor] 80 mg PO HS Citalopram Hydrobromide [CeleXA] 40 mg PO DAILY Triamcinolone 0.1% Cream [Kenalog 0.1% Cream] 1 applic TOPICAL BID PRN PRN Reason: Skin Irritation Darbepoetin Omari [Aranesp] 60 mcg SQ Q14D Insulin Detemir (Levemir) [Levemir] 10 unit SQ HS #10 ml Clopidogrel [Plavix] 75 mg PO HS #30 tab Aspirin [[place] Aspirin EC] 81 mg PO DAILY #30 tab Gabapentin [Neurontin] 300 mg PO HS Metoprolol Tartrate [Lopressor] 50 mg PO BID Furosemide [Lasix] 80 mg PO DAILY #60 tab Losartan [Cozaar] 50 mg PO DAILY #30 tab Nitroglycerin Sl Tabs [Nitrostat] 0.4 mg SUBLINGUAL Q5M PRN PRN Reason: Chest Pain Loratadine [Claritin] 10 mg PO DAILY Lurasidone [Latuda] 40 mg PO HS Ondansetron Odt [Zofran ODT] 4 mg PO BID PRN PRN Reason: Nausea Docusate [Colace] 100 mg PO DAILY Calcium Acetate [PhosLo] 667 mg PO TID-W/MEALS #90 tab INSULIN ASPART (NovoLOG) [NovoLOG (formulary)] See Protocol SQ AC-TID Folic Acid/Vit B Complex and C [Nephro-Cirilo Tablet] 0.8 mg PO DAILY hydrALAZINE HCL 50 mg PO TID #90 tablet NIFEdipine XL [Procardia XL] 30 mg PO BID Discharge Medication List Pantoprazole [Protonix] 40 mg PO BID 11/05/17 [History] Tamsulosin [Flomax] 0.8 mg PO HS 11/05/17 [History] Citalopram Hydrobromide [CeleXA] 20 mg PO DAILY 12/12/18 [History] allopurinoL [Zyloprim] 100 mg PO DAILY 04/05/19 [History] Atorvastatin [Lipitor] 80 mg PO HS 12/30/19 [History] Isosorbide Mononitrate ER [Imdur] 60 mg PO DAILY 12/30/19 [History] Citalopram Hydrobromide [CeleXA] 40 mg PO DAILY 06/29/20 [History] Loratadine [Claritin] 10 mg PO DAILY 01/21/21 [History] Lurasidone [Latuda] 40 mg PO HS 06/20/22 [History] Ondansetron Odt [Zofran ODT] 4 mg PO BID PRN 06/20/22 [History] Triamcinolone 0.1% Cream [Kenalog 0.1% Cream] 1 applic TOPICAL BID PRN 06/20/22 [History] Darbepoetin Omari [Aranesp] 60 mcg SQ Q14D 01/30/23 [History] Docusate [Colace] 100 mg PO DAILY 01/30/23 [History] Aspirin [[place] Aspirin EC] 81 mg PO DAILY #30 tab 03/18/23 [Rx] Calcium Acetate [PhosLo] 667 mg PO TID-W/MEALS #90 tab 03/18/23 [Rx] Clopidogrel [Plavix] 75 mg PO HS #30 tab 03/18/23 [Rx] Insulin Detemir (Levemir) [Levemir] 10 unit SQ HS #10 ml 03/18/23 [Rx] Folic Acid/Vit B Complex and C [Nephro-Cirilo Tablet] 0.8 mg PO DAILY 05/05/23 [History] Gabapentin [Neurontin] 300 mg PO HS 05/05/23 [History] INSULIN ASPART (NovoLOG) [NovoLOG (formulary)] See Protocol SQ AC-TID 05/05/23 [History] Metoprolol Tartrate [Lopressor] 50 mg PO BID 05/05/23 [History] Furosemide [Lasix] 80 mg PO DAILY #60 tab 05/08/23 [Rx] hydrALAZINE HCL 50 mg PO TID #90 tablet 05/08/23 [Rx] Losartan [Cozaar] 50 mg PO DAILY #30 tab 05/20/23 [Rx] NIFEdipine XL [Procardia XL] 30 mg PO BID 06/29/23 [History] Nitroglycerin Sl Tabs [Nitrostat] 0.4 mg SUBLINGUAL Q5M PRN 08/24/23 [History] Follow up Appointment(s)/Referral(s): Ashly Garcia DO [STAFF PHYSICIAN] - 4 Weeks (with AVF ultrasound) Activity/Diet/Wound Care/Special Instructions: Resume regular diet. Resume previous breathing techniques. Resume home medications including antiplatelet/anticoagulation medications. Resume regular activity. Discharge Disposition: HOME SELF-CARE
[2023-08-27 12:09] LABS: Glucose,Whole Blood 179 mg/dL (70-110)
[2023-08-27] MEDS ORDERED: hydrALAZINE HCL 20 MG/ML 1 ML VIAL ONE (12:36)
[2023-08-27] MEDS ORDERED: ACETAMINOPHEN TAB 500 MG TAB ONE (12:38)
[2023-08-27] MEDS: ACETAMINOPHEN TAB 500 MG TAB PO ONE (12:41)
[2023-08-27] MEDS: hydrALAZINE HCL 20 MG/ML 1 ML VIAL IV ONE (12:41)
[2023-08-27 13:26] VITALS: BP 187/89; PULSE 63
== END 2023-08-27 13:32 | disposition home or self-care (01) ==
LOC: OR 08:39
PROVIDERS: ATTEND Surgery
DX: I12.0 Hypertensive chronic kidney disease with stage 5 chronic kidney disease or end stage renal disease (principal); E11.22 Type 2 diabetes mellitus with diabetic chronic kidney disease; N18.6 End stage renal disease; I25.2 Old myocardial infarction; E78.5 Hyperlipidemia, unspecified; I25.119 Atherosclerotic heart disease of native coronary artery with unspecified angina pectoris; E11.42 Type 2 diabetes mellitus with diabetic polyneuropathy; F32.A Depression, unspecified; F41.9 Anxiety disorder, unspecified; H54.7 Unspecified visual loss; Z79.02 Long term (current) use of antithrombotics/antiplatelets; Z79.4 Long term (current) use of insulin; Z79.82 Long term (current) use of aspirin; Z79.899 Other long term (current) drug therapy; Z99.2 Dependence on renal dialysis; Z86.73 Personal history of transient ischemic attack (TIA), and cerebral infarction without residual deficits; Z88.8 Allergy status to other drugs, medicaments and biological substances; Z88.2 Allergy status to sulfonamides; Z90.49 Acquired absence of other specified parts of digestive tract; Z95.5 Presence of coronary angioplasty implant and graft
CPT/HCPCS: 84132; 37607; J2250; J0360; J0690; J2405; J2001; J3010; J2704

== ENCOUNTER 2023-09-19 13:46 | Observation (INO) | payer MEDICARE ==
--- NOTE | 2023-09-19 14:21 | ED ---
Chest Pain HPI - General Chief Complaint: Chest Pain Stated Complaint: Chest pain Time Seen by Provider: 09/19/23 13:52 Source: patient, EMS, RN notes reviewed, old records reviewed Mode of arrival: EMS Limitations: physical limitation - History of Present Illness Initial Comments: 58-year-old male presenting with central chest discomfort. Pain began a pproximately 1 hour into hemodialysis. Patient receives dialysis Thursday. He denies preceding symptoms. Denies cough or dyspnea. Denies radiating symptoms, states this is a pressure sensation in the center of his chest. He had been given nitroglycerin without significant improvement. He does have history of previous UT status post stenting - Related Data Home Medications Medication Instructions Recorded Confirmed Pantoprazole [Protonix] 40 mg PO BID 11/05/17 08/24/23 Tamsulosin [Flomax] 0.8 mg PO HS 11/05/17 08/24/23 Citalopram Hydrobromide [CeleXA] 20 mg PO DAILY 12/12/18 08/24/23 allopurinoL [Zyloprim] 100 mg PO DAILY 04/05/19 08/24/23 Atorvastatin [Lipitor] 80 mg PO HS 12/30/19 08/24/23 Isosorbide Mononitrate ER [Imdur] 60 mg PO DAILY 12/30/19 08/24/23 Citalopram Hydrobromide [CeleXA] 40 mg PO DAILY 06/29/20 08/24/23 Loratadine [Claritin] 10 mg PO DAILY 01/21/21 08/24/23 Lurasidone [Latuda] 40 mg PO HS 06/20/22 08/24/23 Ondansetron Odt [Zofran ODT] 4 mg PO BID PRN 06/20/22 08/24/23 Triamcinolone 0.1% Cream [Kenalog 1 applic TOPICAL BID PRN 06/20/22 08/24/23 0.1% Cream] Darbepoetin Omari [Aranesp] 60 mcg SQ Q14D 01/30/23 08/24/23 Docusate [Colace] 100 mg PO DAILY 01/30/23 08/24/23 Folic Acid/Vit B Complex and C 0.8 mg PO DAILY 05/05/23 08/24/23 [Nephro-Cirilo Tablet] Gabapentin [Neurontin] 300 mg PO HS 05/05/23 08/24/23 INSULIN ASPART (NovoLOG) [NovoLOG See Protocol SQ AC-TID 05/05/23 08/24/23 (formulary)] Metoprolol Tartrate [Lopressor] 50 mg PO BID 05/05/23 08/24/23 NIFEdipine XL [Procardia XL] 30 mg PO BID 06/29/23 08/24/23 Nitroglycerin Sl Tabs [Nitrostat] 0.4 mg SUBLINGUAL Q5M PRN 08/24/23 08/24/23 Previous Rx's Medication Instructions Recorded Aspirin [[place] Aspirin EC] 81 mg PO DAILY #30 tab 03/18/23 Calcium Acetate [PhosLo] 667 mg PO TID-W/MEALS #90 tab 03/18/23 Clopidogrel [Plavix] 75 mg PO HS #30 tab 03/18/23 Insulin Detemir (Levemir) [Levemir] 10 unit SQ HS #10 ml 03/18/23 Furosemide [Lasix] 80 mg PO DAILY #60 tab 05/08/23 hydrALAZINE HCL 50 mg PO TID #90 tablet 05/08/23 Losartan [Cozaar] 50 mg PO DAILY #30 tab 05/20/23 Allergies Allergy/AdvReac Type Severity Reaction Status Date / Time Iodinated Contrast Media AdvReac Nausea & Verified 09/19/23 13:55 [Iodinated Contrast- Oral Vomiting and IV Dye] sucralfate AdvReac Nausea & Verified 09/19/23 13:55 Vomiting Review of Systems ROS Statement: Those systems with pertinent positive or pertinent negative responses have been documented in the HPI. ROS Other: All systems not noted in ROS Statement are negative. Past Medical History Past Medical History: Coronary Artery Disease (CAD), Chest Pain / Angina, CVA/TIA, Diabetes Mellitus, Eye Disorder, GERD/Reflux, Hearing Disorder / Deafness, Hyperlipidemia, Hypertension, Myocardial Infarction (UT), Prostate Disorder, Renal Disease, Rheumatoid Arthritis (RA) Additional Past Medical History / Comment(s): [place] X2 in 2014 and 02/2023., 02 3L/NC., Hx stroke Apr 2017. , hx tia's ., left side weakness., Migranes., Diabetic neuropathy arms and legs, tremors off and on, circulation problems, uses quad cane and wheelchair., Kidney disease with dialysis TUTHSA. Hx Pancreatitis., Legally blind, some trouble hearing. Enlarged prostate, trouble urinating. , hx of recent uti's., anemia., constipation Last Myocardial Infarction Date:: 02/2023 History of Any Multi-Drug Resistant Organisms: None Reported Past Surgical History: Cholecystectomy, Heart Catheterization, Heart Catheterization With Stent, Heart Catheterization With Stent, Hernia Repair, Prostate Surgery Additional Past Surgical History / Comment(s): Dialysis Port Placed - 03/14/23, HIATAL HERNIA REPAIR - 01/23/21., states hx 5 heart caths with 5 stents. Past Anesthesia/Blood Transfusion Reactions: No Reported Reaction Additional Past Anesthesia/Blood Transfusion Reaction / Comment(s): . Date of Last Stent Placement:: 05/07/23 Past Psychological History: Anxiety, Depression Smoking Status: Never smoker Past Alcohol Use History: None Reported Past Drug Use History: None Reported - Past Family History Mother Family Medical History: CVA/TIA, Diabetes Mellitus, Hypertension Additional Family Medical History / Comment(s): Parkinson's. Father Family Medical History: CVA/TIA, Diabetes Mellitus, Myocardial Infarction ([place]) Additional Family Medical History / Comment(s): Father of a [place] in his 50s. General Exam Limitations: physical limitation General appearance: alert, in no apparent distress Head exam: Present: atraumatic, normocephalic Eye exam: Present: normal appearance, PERRL ENT exam: Present: normal exam Neck exam: Present: normal inspection Respiratory exam: Present: normal lung sounds bilaterally. Absent: respiratory distress, wheezes Cardiovascular Exam: Present: normal rhythm, bradycardia GI/Abdominal exam: Present: soft. Absent: distended, guarding, rebound Neurological exam: Present: alert, oriented X3 Psychiatric exam: Present: normal affect, normal mood Skin exam: Present: warm, dry, intact Course Vital Signs 09/19/23 13:50 Pulse Rate 51 L Respiratory 16 Rate O2 Sat by Pulse 100 Oximetry Chest Pain MDM - MDM Was pt. sent in by a medical professional or institution (, PA, INSIDE SALES SPECIALIST, urgent care, hospital, or custodial...) When possible be specific @ -No Did you speak to anyone other than the patient for history (EMS, parent, family, police, friend...)? What history was obtained from this source @ -No Did you review nursing and triage notes (agree or disagree)? Why? @ -I reviewed and agree with nursing and triage notes Were old charts reviewed (outside hosp., previous admission, EMS record, old EKG, old radiological studies, urgent care reports/EKG's, custodial records)? Report findings @ -No old charts were reviewed Differential Diagnosis (chest pain, altered mental status, abdominal pain women, abdominal pain men, vaginal bleeding, weakness, fever, dyspnea, syncope, headache, dizziness, GI bleed, back pain, seizure, CVA, palpatations, mental health, musculoskeletal)? @ -Differential Chest Pain: Stable Angina, Unstable Angina, STEMI, NSTEMI Aortic Dissection, Pneumothorax, Musculoskeletal, Esophageal Spasm GERD, Cholecystitis, Pancreatitis, Zoster, this is not meant to be an all-inclusive list. EKG interpreted by me (3pts min.). @ -[EKG: Sinus bradycardia rate of 49 CA interval 155, QRS duration 118, QTc [address] segment elevation. There is artifact limiting assessment. X-rays interpreted by me (1pt min.). @Chest x-ray, cardiomegaly, right chest wall permacath, no focal pneumonia, no pneumothorax CT interpreted by me (1pt min.). @ -None done U/S interpreted by me (1pt. min.). @ -None done What testing was considered but not performed or refused? (CT, X-rays, U/S, labs)? Why? @ -None What meds were considered but not given or refused? Why? @ -None Did you discuss the management of the patient with other professionals (professionals i.e. , PA, INSIDE SALES SPECIALIST, lab, RT, psych nurse, bilingual social worker, legal editor, teacher, traffic officer, pillowcase cleaner)? Give summary @ -Case discussed with Dr. Miramontes Was smoking cessation discussed for >3mins.? @ -No Was critical care preformed (if so, how long)? @ -No Were there social determinants of health that impacted care today? How? (Homelessness, low income, unemployed, alcoholism, drug addiction, transportation, low edu. Level, literacy, decrease access to med. care, long-term, rehab)? @ -No Was there de-escalation of care discussed even if they declined (Discuss DNR or withdrawal of care, Hospice)? DNR status @ -No What co-morbidities impacted this encounter? (DM, HTN, Smoking, COPD, CAD, Cancer, CVA, ARF, Chemo, Hep., AIDS, mental health diagnosis, sleep apnea, morbid obesity)? @Coronary artery disease, end-stage renal disease cardiomegaly, venous catheter, no focal pneumonia, no pneumothorax Was patient admitted / discharged? Hospital course, mention meds given and route, prescriptions, significant lab abnormalities, going to OR and other pertinent info. @ -58-year-old male with history of CAD presenting with chest pain while undergoing dialysis. Patient's EKG sinus bradycardia without ST segment elevation. Chest x-ray shows mild interstitial prominence without marly fluid overload, no pneumothorax, no focal pneumonia. Patient has chronic lab abnormalities consistent with end-stage renal disease. Negative initial troponin. He will be observed overnight with serial cardiac enzymes, telemetry, cardiology consultation. Undiagnosed new problem with uncertain prognosis? @ -No Drug Therapy requiring intensive monitoring for toxicity (Heparin, Nitro, Insulin, Cardizem)? @ -No Were any procedures done? @ -No Diagnosis/symptom? @Chest pain rule out Acute, or Chronic, or Acute on Chronic? @Acute Uncomplicated (without systemic symptoms) or Complicated (systemic symptoms)? @ -Default Side effects of treatment? @ -No Exacerbation, Progression, or Severe Exacerbation? @ -No Poses a threat to life or bodily function? How? (Chest pain, [place], [place], pneumonia, PE, COPD, DKA, ARF, appy, cholecystitis, CVA, Diverticulitis, Homicidal, Suicidal, threat to staff... and all critical care pts) @ -Past ACS Disposition Clinical Impression: Chest pain Disposition: ADMITTED IP TO THIS HOSP Condition: Stable Is patient prescribed a controlled substance at d/c from ED?: No Referrals: Lamar Scott MD [Primary Care Provider] - 1-2 days Time of Disposition: 16:28
[2023-09-19 14:27] LABS: INR 0.9 (<1.2); Partial Thromboplastin Time 37.6 sec (22.0-30.0); Prothrombin Time 10.4 sec (10.0-12.5)
[2023-09-19 14:35] LABS: Basophils % (A) 1 %; Eosinophils # (A) 0.2 k/uL (0-0.7); Eosinophils % (A) 3 %; HCT 32.6 % (39.0-53.0); HGB 11.2 gm/dL (13.0-17.5); Lymphocytes # (A) 1.5 k/uL (1.0-4.8); Lymphocytes % (A) 22 %; MCH 31.3 pg (25.0-35.0); MCHC 34.5 g/dL (31.0-37.0); MCV 90.9 fL (80.0-100.0); Mean Platelet Volume 7.3; Monocytes # (A) 0.4 k/uL (0-1.0); Monocytes % (A) 5 %; Neutrophils # (A) 4.7 k/uL (1.3-7.7); Neutrophils % (A) 68 %; Platelet Count 142 k/uL (150-450); RBC 3.58 m/uL (4.30-5.90); RDW 14.6 % (11.5-15.5); WBC 6.9 k/uL (3.8-10.6)
[2023-09-19 15:13] LABS: ALT 29 U/L (4-49); AST 39 U/L (17-59); African American GFR (CKD) 27 (>60 ml/min/1.73 sqM); Albumin 4.3 g/dL (3.5-5.0); Alkaline Phosphatase 123 U/L (38-126); Anion Gap 8 mmol/L; Blood Urea Nitrogen 36 mg/dL (9-20); Calcium 8.1 mg/dL (8.4-10.2); Carbon Dioxide 27 mmol/L (22-30); Chloride 102 mmol/L (98-107); Glucose 265 mg/dL (74-99); Lipase 387 U/L (23-300); Magnesium 1.8 mg/dL (1.6-2.3); Non-African American GFR(CKD) 23 (>60 ml/min/1.73 sqM); Sodium 137 mmol/L (137-145); Total Bilirubin 0.8 mg/dL (0.2-1.3); Total Protein 7.3 g/dL (6.3-8.2)
[2023-09-19 15:14] LABS: Potassium 4.8 mmol/L (3.5-5.1)
--- NOTE | 2023-09-19 16:10 | XR ---
EXAMINATION TYPE: XR chest 2V DATE OF EXAM: 09/19/2023 2:32 PM CLINICAL INDICATION:Male, 58 years old with history of Chest Pain; [facility] COMPARISON: 05/11/2023 TECHNIQUE: XR chest 2V. Frontal and lateral views of the chest.. FINDINGS: Lines/Tubes/Devices: Right chest tunneled dialysis catheter terminates over the right atrium. Heart/mediastinum: Heart appears mildly to moderately enlarged. Mediastinum appears normal. Lungs/Pleura: Slightly low lung volumes with minor atelectatic changes in the lung bases. Mild/modera te asymmetric elevation right hemidiaphragm. No sizable pleural effusion, pneumothorax, or focal cons olidation is shown. Mildly increased interstitial lung markings likely chronic changes, with possible mild superimposed edema. Musculoskeletal: No acute osseous abnormality demonstrated in the limits of the exam. Degenerative c hanges shoulders and spine. Other findings: None. IMPRESSION: 1. Cardiomegaly. 2. Dialysis catheter in place. 3. Mildly increased interstitial lung markings likely chronic changes, with possible mild superimpos ed edema.
[2023-09-19] MEDS ORDERED: NALOXONE 0.4 MG/ML 1 ML VIAL IV PRN (16:24)
[2023-09-19] MEDS: ASPIRIN 325 MG TAB PO STA (16:48)
[2023-09-19] MEDS: MORPHINE SULFATE 4 MG/ML SYRINGE IVP STA (16:49)
--- NOTE | 2023-09-20 01:17 | HP ---
HISTORY AND PHYSICAL CHIEF COMPLAINT: Chest pain. HISTORY OF PRESENT ILLNESS: This is a 58-year-old gentleman with a past medical history of multiple medical issues, chronic renal failure; hemodialysis on Thursday, , and Thursday cycle; CAD; CVA, TIA. He was undergoing hemodialysis. About 1 hour in the hemodialysis, the patient felt anterior part of chest pain and the patient taken to [facility] and admitted for further evaluation and treatment. There is no history of any fever, rigors, chills. No history of any shortness of breath. PAST MEDICAL HISTORY: History of chronic renal failure, on hemodialysis; diabetes type 2; CAD. Rest of the history and rest of chart reviewed. HOME MEDICATIONS: Reviewed. Hydralazine, not confirmed yet. Dose also reviewed. ALLERGIES: Iodinated contrast dye. FAMILY HISTORY: History of diabetes mellitus, hypertension SOCIAL HISTORY: No history of smoking, alcohol. REVIEW OF SYSTEMS: A 14-point review is negative except as mentioned earlier. PHYSICAL EXAM: VITAL SIGNS: Pulse 51, blood pressure normal, respirations 16. HEENT: Conjunctivae normal. NECK: No JVD. CARDIOVASCULAR: S1 and S2. RESPIRATIONS: Breath sounds diminished at the bases. ABDOMEN: Soft, nontender. LEGS: No edema. No swelling NERVOUS SYSTEM: No focal deficit. SKIN: No ulcer, rash, bleeding. JOINTS: No active deforming arthropathy. LABORATORY DATA: Hemoglobin 11. Troponins are negative. ASSESSMENT: 1. Chest pain, possible unstable angina. 2. Bradycardia and nonspecific ST-T changes in the EKG. 3. Chronic kidney disease, end-stage renal disease, on hemodialysis. 4. History of CAD stent. 5. Cerebrovascular accident, transient ischemic attack. 6. Diabetes mellitus, type 2. 7. Hypertension. 8. Hyperlipidemia. 9. Multiple complex medical issues. RECOMMENDATIONS AND DISCUSSION: This is a 58-year-old gentleman with multiple complex medical issues, we will monitor the patient closely. We recommend to continue with unstable angina protocol. Rule out myocardial infarction. Cardiology consultation. Nephrology consultation. Possible hemodialysis. Resume home medications once they are confirmed. Prognosis guarded because of multiple complex medical issues. Further recommendations to follow. See orders for details. MMODL / IJN: [id number] / MTDD
[2023-09-20 02:11] VITALS: RESP 16
[2023-09-20] MEDS: LOSARTAN 25 MG TAB PO SCH (08:46)
[2023-09-20] MEDS: METOPROLOL SUCCINATE (ER) 50 MG TAB.ER.24H PO SCH (08:46)
[2023-09-20] MEDS: FOLIC ACID-VIT B COMPLEX-VIT C 1 CAP PO SCH (08:46)
[2023-09-20] MEDS: ISOSORBIDE MONONITRATE ER 60 MG TAB.ER.24H PO SCH (08:46)
[2023-09-20] MEDS: FUROSEMIDE 40 MG TAB PO SCH (08:46)
[2023-09-20] MEDS: PANTOPRAZOLE 40 MG TABLET PO SCH (08:47)
[2023-09-20] MEDS: CITALOPRAM HYDROBROMIDE 20 MG TAB PO SCH ×2 (08:47)
[2023-09-20] MEDS: ASPIRIN 81 MG PO SCH (08:48)
[2023-09-20] MEDS: DOCUSATE 100 MG CAP PO SCH (08:48)
[2023-09-20] MEDS: allopurinoL 100 MG TAB PO SCH (08:48)
[2023-09-20] MEDS: LORATADINE 10 MG TAB PO SCH (08:48)
[2023-09-20] MEDS: CALCIUM ACETATE 667 MG TAB PO SCH (08:48)
[2023-09-20 09:21] LABS: Basophils # (A) 0.02 X 10*3/uL (0.00-0.10); Basophils % (A) 0.3 %; Eosinophils # (A) 0.23 X 10*3/uL (0.04-0.35); Eosinophils % (A) 3.5 %; HCT 29.9 % (39.6-50.0); Lymphocytes # (A) 1.55 X 10*3/uL (0.90-5.00); Lymphocytes % (A) 23.7 %; MCH 29.7 pg (27.0-32.0); MCHC 33.4 g/dL (32.0-37.0); MCV 88.7 FL (80.0-97.0); Mean Platelet Volume 8.9 FL (9.5-12.2); Monocytes # (A) 0.45 X 10*3/uL (0.20-1.00); Monocytes % (A) 6.9 %; NRBC Per 100 WBC 0 X 10*3/uL (0.00-0.01); Neutrophils # (A) 4.25 X 10*3/uL (1.80-7.70); Neutrophils % (A) 65.1 %; Platelet Count 115 X 10*3/uL (140-440); RBC 3.37 X 10*6/uL (4.40-5.60); RDW 14.2 % (11.5-14.5); WBC 6.53 X 10*3/uL (4.50-10.00)
[2023-09-20 09:50] LABS: BUN/Creat Ratio 11.08 Ratio (12.00-20.00); Blood Urea Nitrogen 44.3 mg/dL (9.0-27.0); Calcium 8.3 mg/dL (8.7-10.3); Carbon Dioxide 24.9 mmol/L (21.6-31.8); Chloride 98 mmol/L (96-109); Glucose 155 mg/dL (70-110); Sodium 137 mmol/L (135-145)
--- NOTE | 2023-09-20 12:03 | P.NPCON ---
History of Present Illness - Reason for Consult end stage renal disease - History of Present Illness patient is a 58-year-old male with end-stage renal disease on hemodialysis on a Thursday schedule. Patient also has underlying significant coronary artery disease status post multiple coronary stents. Patient was admitted to the hospital with complaints of chest pain. He completed about 1-1/2 hour treatment yesterday. Troponins have been negative. No complaints of chest pain currently. No history of fever chills nausea vomiting or abdominal pain. Review of Systems as per HPI Past Medical History Past Medical History: Coronary Artery Disease (CAD), Chest Pain / Angina, CVA/TIA, Diabetes Mellitus, Eye Disorder, GERD/Reflux, Hearing Disorder / Deafness, Hyperlipidemia, Hypertension, Myocardial Infarction ([place]), Prostate Disorder, Renal Disease, Rheumatoid Arthritis (RA) Additional Past Medical History / Comment(s): [place] X2 in 2014 and 02/2023., 02 3L/NC., Hx stroke Apr 2017. , hx tia's ., left side weakness., Migranes., Diabetic neuropathy arms and legs, tremors off and on, circulation problems, uses quad cane and wheelchair., Kidney disease with dialysis TUTHSA. Hx Pancreatitis., Legally blind, some trouble hearing. Enlarged prostate, trouble urinating. , hx of recent uti's., anemia., constipation Last Myocardial Infarction Date:: 02/2023 History of Any Multi-Drug Resistant Organisms: None Reported Past Surgical History: Cholecystectomy, Heart Catheterization, Heart Catheterization With Stent, Heart Catheterization With Stent, Hernia Repair, Prostate Surgery Additional Past Surgical History / Comment(s): Dialysis Port Placed - 03/14/23, HIATAL HERNIA REPAIR - 01/23/21., states hx 5 heart caths with 5 stents. Past Anesthesia/Blood Transfusion Reactions: No Reported Reaction Additional Past Anesthesia/Blood Transfusion Reaction / Comment(s): . Date of Last Stent Placement:: 05/07/23 Past Psychological History: Anxiety, Depression Additional Psychological History / Comment(s): Pt resides with his spouse. He uses a quad cane or walker to ambulate. He is legally blind. He reads minimally with magnifying glass and signs his name only now. His spouse drives him to [employer]. Smoking Status: Never smoker Past Alcohol Use History: None Reported Past Drug Use History: None Reported - Past Family History Mother Family Medical History: CVA/TIA, Diabetes Mellitus, Hypertension Additional Family Medical History / Comment(s): Parkinson's. Father Family Medical History: CVA/TIA, Diabetes Mellitus, Myocardial Infarction ([place]) Additional Family Medical History / Comment(s): Father of a [place] in his 50s. Medications and Allergies Home Medications Medication Instructions Recorded Confirmed Type Pantoprazole [Protonix] 40 mg PO BID 11/05/17 09/19/23 History Tamsulosin [Flomax] 0.8 mg PO HS 11/05/17 09/19/23 History Citalopram Hydrobromide [CeleXA] 20 mg PO DAILY 12/12/18 09/19/23 History allopurinoL [Zyloprim] 100 mg PO DAILY 04/05/19 09/19/23 History Atorvastatin [Lipitor] 80 mg PO HS 12/30/19 09/19/23 History Isosorbide Mononitrate ER [Imdur] 60 mg PO DAILY 12/30/19 09/19/23 History Citalopram Hydrobromide [CeleXA] 40 mg PO DAILY 06/29/20 09/19/23 History Loratadine [Claritin] 10 mg PO DAILY 01/21/21 09/19/23 History Docusate [Colace] 100 mg PO DAILY 01/30/23 09/19/23 History Aspirin [[place] Aspirin EC] 81 mg PO DAILY #30 tab 03/18/23 09/19/23 Rx Calcium Acetate [PhosLo] 667 mg PO TID-W/MEALS #90 tab 03/18/23 09/19/23 Rx Clopidogrel [Plavix] 75 mg PO HS #30 tab 03/18/23 09/19/23 Rx Insulin Detemir (Levemir) [Levemir] 10 unit SQ HS #10 ml 03/18/23 09/19/23 Rx Folic Acid/Vit B Complex and C 0.8 mg PO DAILY 05/05/23 09/19/23 History [Nephro-Cirilo Tablet] INSULIN ASPART (NovoLOG) [NovoLOG See Protocol SQ AC-TID 05/05/23 09/19/23 His tory (formulary)] Furosemide [Lasix] 80 mg PO DAILY #60 tab 05/08/23 09/19/23 Rx NIFEdipine XL [Procardia XL] 60 mg PO BID 06/29/23 09/19/23 History Losartan [Cozaar] 25 mg PO DAILY 09/19/23 09/19/23 History Metoprolol Succinate (ER) [Toprol 50 mg PO DAILY 09/19/23 09/19/23 History Xl] Allergies Allergy/AdvReac Type Severity Reaction Status Date / Time Iodinated Contrast Media AdvReac Nausea & Verified 09/19/23 16:54 [Iodinated Contrast- Oral Vomiting and IV Dye] sucralfate AdvReac Nausea & Verified 09/19/23 16:54 Vomiting Physical Exam Vitals: Vital Signs Temp Pulse Pulse Resp BP BP Pulse Ox 09/20/23 08:00 54 L 16 09/20/23 07:00 97.7 F 54 L 16 155/79 99 09/20/23 00:21 97.5 F L 53 L 16 144/67 99 09/19/23 19:42 97.5 F L 49 L 15 130/66 100 09/19/23 17:45 97.9 F 53 L 18 143/77 100 09/19/23 16:50 50 L 16 140/76 99 09/19/23 13:50 51 L 16 100 Intake and Output 09/19/23 09/20/23 09/20/23 22:59 06:59 14:59 Other: # Voids 1 1 Weight 78.925 kg patient is awake, comfortable, no acute distress Examination of the heart S1 and S2 Examination of the lungs bilateral breath sounds are heard Abdomen is soft nontender Examination of lower extremities shows no evidence of edema [employer] exam grossly intact Results - Lab Results Most recent lab results Calcium 8.3 mg/dL (8.7-10.3) L 09/20/23 06:47 Magnesium 1.8 mg/dL (1.6-2.3) 09/19/23 14:05 09/20/23 06:47 09/20/23 06:47 Assessment and Plan Assessment: 1. End-stage renal disease on hemodialysis on a Thursday schedule 2. Chest pain with negative troponins 3. History of coronary artery disease with multiple coronary stents 4. CK D mineral bone disorder Plan: patient can be discharged from nephrology standpoint. Follow-up for hemodialysis on Thursday as outpatient.
[2023-09-20] MEDS: ACETAMINOPHEN TAB 325 MG TAB PO PRN (12:36)
[2023-09-20] MEDS: RANOLAZINE 500 MG TAB.ER.12H PO SCH (12:43)
--- NOTE | 2023-09-20 19:20 | P.CRDCN ---
History of Present Illness Consult date: 09/20/23 History of present illness: HISTORY OF PRESENTING ILLNESS 58-year-old with past medical history CAD s/p PCI to LCx and LAD in 2018 with repeat heart cath in April [address] Avendaño requiring PCI to LAD with patent stent to LCx and prior LAD stent with moderate severe diffuse distal LAD disease treated with chest balloon angioplasty. Patient also has end-stage renal disease on TTS hemodialysis schedule which was started mid last year. Currently he makes minimal amount of urine. Yesterday patient was having hemodialysis. During the middle of hemodialysis patient started having substernal chest heaviness due to which he was sent to the hospital. He reports that his substernal chest pressure lasted for approximately an hour and then eased off slowly. He has not had any recurrence of chest pain. He was feeling slightly lightheaded during his hemodialysis session. He is ECG shows sinus bradycardia, heart rate 49 bpm, IVCD, no significant ST-T changes consistent of ischemia. His chest x-ray does not show significant pulmonary congestion. His labs shows hemoglobin 11.2, platelets 142, troponin x 3 is negative, BUN 36, creatinine 2.89 Normal LFTs At the time of evaluating him at bedside this morning he is hemodynamically stable he denies having any active chest pain chest pressure shortness of breath. He is comfortably laying in the bed. REVIEW OF SYSTEMS 14 point review of system is negative except what is mentioned above in HPI. PHYSICAL EXAMINATION Vital signs reviewed. Head: Normocephalic. Eyes: Sclerae nonicteric. Neck: Brisk carotid upstroke, no jugular venous distention. Lungs: Clear to auscultation. Heart: Regular rate and rhythm, S1-S2, no S3, no murmur or rub. Right radial pulse has a bruit because of her maturing AV fistula. Left radial pulses intact. Abdomen: Soft nontender, positive bowel sounds. Extremities: No edema, intact distal pulses. Neuro: Alert, oritented, no focal deficits. Detailed neuro exam was not performed. ASSESSMENT Chest pain during hemodialysis session, likely stable angina CAD s/p PCI to LCx and mid LAD in 2018. Latest heart cath April 2023, PCI to LAD and balloon angioplasty of distal LAD with patent prior LAD and LCx stents. ESRD on hemodialysis TTS PLAN Continue patient's current medical regimen. Continue aspirin, Plavix 75 mg, Procardia XL 60 mg daily, Lasix, metoprolol succinate 50 mg daily, losartan 25 mg daily, Imdur 60 mg daily. On this admission I will add Ranexa 500 mg twice daily for stable anginal symptoms and his residual CAD in distal LAD. Consider uptitrating antianginals including Imdur and Ranexa if patient's chest pain persist. Patient is cleared to be discharged from cardiovascular standpoint Consider outpatient echocardiogram and a possible ischemic evaluation for further risk stratification Karlo Davis MD, [facility], [place] Thank you for allowing [facility] to participate in this patient's care. Feel free to reach out in case of any followup questions. Past Medical History Past Medical History: Coronary Artery Disease (CAD), Chest Pain / Angina, CVA/TIA, Diabetes Mellitus, Eye Disorder, GERD/Reflux, Hearing Disorder / Deafness, Hyperlipidemia, Hypertension, Myocardial Infarction (AK), Prostate Disorder, Renal Disease, Rheumatoid Arthritis (RA) Additional Past Medical History / Comment(s): AK X2 in 2014 and 02/2023., 02 3L/NC., Hx stroke Apr 2017. , hx tia's ., left side weakness., Migranes., Diabetic neuropathy arms and legs, tremors off and on, circulation problems, uses quad cane and wheelchair., Kidney disease with dialysis T[facility]. Hx Pa ncreatitis., Legally blind, some trouble hearing. Enlarged prostate, trouble urinating. , hx of recent uti's., anemia., constipation Last Myocardial Infarction Date:: 02/2023 History of Any Multi-Drug Resistant Organisms: None Reported Past Surgical History: Cholecystectomy, Heart Catheterization, Heart Catheterization With Stent, Heart Catheterization With Stent, Hernia Repair, Prostate Surgery Additional Past Surgical History / Comment(s): Dialysis Port Placed - 03/14/23, HIATAL HERNIA REPAIR - 01/23/21., states hx 5 heart caths with 5 stents. Past Anesthesia/Blood Transfusion Reactions: No Reported Reaction Additional Past Anesthesia/Blood Transfusion Reaction / Comment(s): . Date of Last Stent Placement:: 05/07/23 Past Psychological History: Anxiety, Depression Additional Psychological History / Comment(s): Pt resides with his spouse. He uses a quad cane or walker to ambulate. He is legally blind. He reads minimally with magnifying glass and signs his name only now. His spouse drives him to [employer]. Smoking Status: Never smoker Past Alcohol Use History: None Reported Past Drug Use History: None Reported - Past Family History Mother Family Medical History: CVA/TIA, Diabetes Mellitus, Hypertension Additional Family Medical History / Comment(s): Parkinson's. Father Family Medical History: CVA/TIA, Diabetes Mellitus, Myocardial Infarction (AK) Additional Family Medical History / Comment(s): Father of a AK in his 50s. Medications and Allergies Home Medications Medication Instructions Recorded Confirmed Type Pantoprazole [Protonix] 40 mg PO BID 11/05/17 09/19/23 History Tamsulosin [Flomax] 0.8 mg PO HS 11/05/17 09/19/23 History Citalopram Hydrobromide [CeleXA] 20 mg PO DAILY 12/12/18 09/19/23 History allopurinoL [Zyloprim] 100 mg PO DAILY 04/05/19 09/19/23 History Atorvastatin [Lipitor] 80 mg PO HS 12/30/19 09/19/23 History Isosorbide Mononitrate ER [Imdur] 60 mg PO DAILY 12/30/19 09/19/23 History Citalopram Hydrobromide [CeleXA] 40 mg PO DAILY 06/29/20 09/19/23 History Loratadine [Claritin] 10 mg PO DAILY 01/21/21 09/19/23 History Docusate [Colace] 100 mg PO DAILY 01/30/23 09/19/23 History Aspirin [[place] Aspirin EC] 81 mg PO DAILY #30 tab 03/18/23 09/19/23 Rx Calcium Acetate [PhosLo] 667 mg PO TID-W/MEALS #90 tab 03/18/23 09/19/23 Rx Clopidogrel [Plavix] 75 mg PO HS #30 tab 03/18/23 09/19/23 Rx Insulin Detemir (Levemir) [Levemir] 10 unit SQ HS #10 ml 03/18/23 09/19/23 Rx Folic Acid/Vit B Complex and C 0.8 mg PO DAILY 05/05/23 09/19/23 History [Nephro-Cirilo Tablet] INSULIN ASPART (NovoLOG) [NovoLOG See Protocol SQ AC-TID 05/05/23 09/19/23 History (formulary)] Furosemide [Lasix] 80 mg PO DAILY #60 tab 05/08/23 09/19/23 Rx NIFEdipine XL [Procardia XL] 60 mg PO BID 06/29/23 09/19/23 History Losartan [Cozaar] 25 mg PO DAILY 09/19/23 09/19/23 History Metoprolol Succinate (ER) [Toprol 50 mg PO DAILY 09/19/23 09/19/23 History Xl] Allergies Allergy/AdvReac Type Severity Reaction Status Date / Time Iodinated Contrast Media AdvReac Nausea & Verified 09/19/23 16:54 [Iodinated Contrast- Oral Vomiting and IV Dye] sucralfate AdvReac Nausea & Verified 09/19/23 16:54 Vomiting Physical Exam Vitals: Vital Signs Temp Pulse Resp BP Pulse Ox 09/20/23 15:00 97.7 F 56 L 16 132/69 99 09/20/23 14:00 54 L 16 09/20/23 08:00 54 L 16 09/20/23 07:00 97.7 F 54 L 16 155/79 99 09/20/23 00:21 97.5 F L 53 L 16 144/67 99 09/19/23 19:42 97.5 F L 49 L 15 130/66 100 Intake and Output 09/20/23 09/20/23 09/20/23 06:59 14:59 22:59 Other: # Voids 1 1 Results 09/20/23 06:47 09/20/23 06:47 Cardiac Enzymes 09/19/23 09/19/23 Range/Units 19:35 22:08 Troponin I <0.012 <0.012 (0.000-0.034) ng/mL CBC 09/20/23 Range/Units 06:47 WBC 6.53 (4.50-10.00) X 10*3/uL RBC 3.37 L (4.40-5.60) X 10*6/uL Hgb 10.0 L (13.0-17.0) g/dL Hct 29.9 L (39.6-50.0) % Plt Count 115 L (140-440) X 10*3/uL Comprehensive Metabolic Panel 09/20/23 Range/Units 06:47 Sodium 137 (135-145) mmol/L Potassium 4.0 (3.5-5.5) mmol/L Chloride 98 (96-109) mmol/L Carbon Dioxide 24.9 (21.6-31.8) mmol/L BUN 44.3 H (9.0-27.0) mg/dL Creatinine 4.0 H (0.6-1.5) mg/dL Glucose 155 H (70-110) mg/dL Calcium 8.3 L (8.7-10.3) mg/dL Current Medications Generic Name Dose Route Start Last Admin Trade Name Freq PRN Reason Stop Dose Admin Acetaminophen 650 mg 09/19/23 16:24 09/20/23 12:36 Acetaminophen Tab 325 Mg Tab PO 650 mg Q6HR PRN Administration Mild Pain or Fever > 100.5 Allopurinol 100 mg 09/20/23 09:00 09/20/23 08:48 Allopurinol 100 Mg Tab PO 100 mg DAILY JAD Administration Aspirin 81 mg 09/20/23 09:00 09/20/23 08:48 Aspirin 81 Mg PO 81 mg DAILY JAD Administration Atorvastatin Calcium 80 mg 09/20/23 21:00 Atorvastatin 80 Mg Tab PO HS [facility] Calcium Acetate 667 mg 09/20/23 07:30 09/20/23 17:38 Calcium Acetate 667 Mg Tab PO 667 mg TID-W/MEALS JAD Administration Citalopram Hydrobromide 20 mg 09/20/23 09:00 09/20/23 08:47 Citalopram Hydrobromide 20 Mg Tab PO 20 mg DAILY JAD Administration Citalopram Hydrobromide 40 mg 09/20/23 09:00 09/20/23 08:47 Citalopram Hydrobromide 20 Mg Tab PO 40 mg DAILY JAD Administration Clopidogrel Bisulfate 75 mg 09/20/23 21:00 Clopidogrel 75 Mg Tab PO HS [facility] Docusate Sodium 100 mg 09/20/23 09:00 09/20/23 08:48 Docusate 100 Mg Cap PO 100 mg DAILY JAD Administration Furosemide 80 mg 09/20/23 09:00 09/20/23 08:46 Furosemide 40 Mg Tab PO 80 mg DAILY JAD Administration Insulin Detemir 10 unit 09/20/23 21:00 Insulin Detemir (Levemir) 100 Unit/Ml Syr SQ HS [facility] Isosorbide Mononitrate 60 mg 09/20/23 09:00 09/20/23 08:46 Isosorbide Mononitrate Er 60 Mg Tab.Er.24h PO 60 mg DAILY JAD Administration Loratadine 10 mg 09/20/23 09:00 09/20/23 08:48 Loratadine 10 Mg Tab PO 10 mg DAILY JAD Administration Losartan Potassium 25 mg 09/20/23 09:00 09/20/23 08:46 Losartan 25 Mg Tab PO 25 mg DAILY JAD Administration Metoprolol Succinate 50 mg 09/20/23 09:00 09/20/23 08:46 Metoprolol Succinate (Er) 50 Mg Tab.Er.24h PO 50 mg DAILY JAD Administration Morphine Sulfate 4 mg 09/19/23 16:24 Morphine Sulfate 4 Mg/Ml Syringe IV Q4HR PRN Severe Pain (Scale 7 to 10) Multivit/Ca Carb/B Cmplx/FA/Prenat 1 each 09/20/23 09:00 09/20/23 08:46 Folic Acid-Vit B Complex-Vit C 1 Cap PO 1 each DAILY JAD Administration Naloxone HCl 0.2 mg 09/19/23 16:24 Naloxone 0.4 Mg/Ml 1 Ml Vial IV Q2M PRN Opioid Reversal Nifedipine 60 mg 09/20/23 09:00 09/20/23 08:48 Nifedipine Xl 60 Mg Tab.Er.24 PO 60 mg BID JAD Administration Pantoprazole Sodium 40 mg 09/20/23 09:00 09/20/23 08:47 Pantoprazole 40 Mg Tablet PO 40 mg BID JAD Administration Ranolazine 500 mg 09/20/23 09:00 09/20/23 12:43 Ranolazine 500 Mg Tab.Er.12h PO 500 mg Q12HR JAD Administration Tamsulosin HCl 0.8 mg 09/20/23 21:00 Tamsulosin 0.4 Mg Cap.Er.24h PO HS JAD Intake and Output 09/20/23 09/20/23 09/20/23 06:59 14:59 22:59 Other: # Voids 1 1 09/20/23 06:47 09/20/23 06:47
[2023-09-20 20:14] LABS: Glucose,Whole Blood 244 mg/dL (70-110)
[2023-09-20] MEDS: CLOPIDOGREL 75 MG TAB PO SCH (20:55)
[2023-09-20] MEDS: ATORVASTATIN 80 MG TAB PO SCH (20:55)
[2023-09-20] MEDS: TAMSULOSIN 0.4 MG CAP.ER.24H PO SCH (20:55)
[2023-09-20] MEDS: INSULIN DETEMIR (LEVEMIR) 100 UNIT/ML SYR SQ SCH (20:55)
--- NOTE | 2023-09-21 00:20 | PN ---
PROGRESS NOTE DATE OF SERVICE: 09/20/2023 SUBJECTIVE: This is a 58-year-old gentleman admitted with multiple medical problems. Continue to have some chest pain. Cardiology is following the patient closely. The troponins are negative, but still the patient might be a candidate for cardiac workup at this time. Lipase is also elevated. I would recommend amylase, lipase and continued followup also. PAST MEDICAL HISTORY: Reviewed. REVIEW OF SYSTEMS: A 14-point review is negative except as mentioned earlier. CURRENT MEDICATIONS: Reviewed include aspirin. PHYSICAL EXAMINATION: VITAL SIGNS: Pulse is 54, blood pressure 150/76, respirations 16. HEENT: Conjunctivae normal. NECK: No JVD. CARDIOVASCULAR: S1, S2. RESPIRATIONS: Breath sounds diminished at the bases. ABDOMEN: Soft. NERVOUS SYSTEM: Nonfocal. LABORATORY DATA: Noted. ASSESSMENT: 1. Chest pain, possible unstable angina with persistent chest pain. 2. History of renal disease, on hemodialysis. 3. Bradycardia, nonspecific ST-T changes in the EKG. 4. History of coronary artery disease stent. 5. Cerebrovascular accident, transient ischemic attack. 6. Elevated lipase. 7. Diabetes mellitus, type 2. 8. Hypertension. 9. Hyperlipidemia. 10.Multiple complex medical issues. RECOMMENDATIONS AND DISCUSSION: Recommend to continue current management and continue symptomatic treatment as mentioned earlier. I would monitor the patient telemetry. Symptomatic treatment of the pain will be given. Follow closely with Cardiology. The patient might be a candidate for further cardiac workup. The patient also had elevated lipase. I would also recommend a D-dimer and CT angio of chest also will be recommended if it is positive, otherwise in coordination with dialysis. Otherwise, overall prognosis guarded because of multiple complex medical issues and if the amylase and lipase are persistently high, a CT scan of abdomen also may be warranted. As mentioned earlier, the patient has multiple complex medical issues. We will continue to monitor. Further recommendations to follow. MMODL / IJN: [id number] /
[2023-09-21] MEDS: MORPHINE SULFATE 4 MG/ML SYRINGE IV PRN (02:52)
[2023-09-21 05:01] VITALS: PULSE 59
[2023-09-21 08:54] LABS: Basophils # (A) 0.04 X 10*3/uL (0.00-0.10); Basophils % (A) 0.6 %; Eosinophils # (A) 0.23 X 10*3/uL (0.04-0.35); Eosinophils % (A) 3.3 %; HCT 29.7 % (39.6-50.0); HGB 9.9 g/dL (13.0-17.0); Lymphocytes # (A) 1.75 X 10*3/uL (0.90-5.00); MCH 29.6 pg (27.0-32.0); MCHC 33.3 g/dL (32.0-37.0); MCV 88.9 FL (80.0-97.0); Mean Platelet Volume 8.8 FL (9.5-12.2); Monocytes # (A) 0.52 X 10*3/uL (0.20-1.00); Monocytes % (A) 7.4 %; NRBC Per 100 WBC 0 X 10*3/uL (0.00-0.01); Neutrophils # (A) 4.45 X 10*3/uL (1.80-7.70); Neutrophils % (A) 63.4 %; Platelet Count 115 X 10*3/uL (140-440); RBC 3.34 X 10*6/uL (4.40-5.60); RDW 13.7 % (11.5-14.5); WBC 7.01 X 10*3/uL (4.50-10.00)
[2023-09-21 08:59] LABS: Amylase 105 U/L (23-121); Blood Urea Nitrogen 60.7 mg/dL (9.0-27.0); Chloride 100 mmol/L (96-109); Glucose 171 mg/dL (70-110); Potassium 4.6 mmol/L (3.5-5.5); Sodium 136 mmol/L (135-145)
[2023-09-21 09:00] LABS: ALT 23 U/L (10-49); AST 19 U/L (14-35); Albumin/Globulin Ratio 1.82 Ratio (1.60-3.17); Alkaline Phosphatase 134 U/L (41-126); Calcium 8.2 mg/dL (8.7-10.3); Globulin 2.2 g/dL (1.6-3.3); Lipase 132 U/L (14-60); Total Bilirubin 0.4 mg/dL (0.3-1.2); Total Protein 6.2 g/dL (6.2-8.2)
--- NOTE | 2023-09-21 10:03 | CA ---
Transthoracic Echo Report Name: Kashmir Tinajero Age: 58 Gender: M : 1965 Exam Date: 09/21/2023 08:05 Exam Location: [facility] Ht (in): 69 Wt (lb): 174 Ordering Physician: Karlo Davis MD ([id number]) Attending/Referring Phys: Institution Director Maya Ivan RCS Procedure CPT: Indications: Chest Pain Cardiac Hx: Technical Quality: Fair Contrast 1: Definity Total Dose (mL): 2 Contrast 2: Total Dose (mL): MEASUREMENTS (Male / Female) Normal Values 2D ECHO LV Diastolic Diameter PLAX 4.7 cm 4.2 - 5.9 / 3.9 - 5.3 cm LV Systolic Diameter PLAX 3.3 cm IVS Diastolic Thickness 1.1 cm 0.6 - 1.0 / 0.6 - 0.9 cm LVPW Diastolic Thickness 1.1 cm 0.6 - 1.0 / 0.6 - 0.9 cm LV Relative Wall Thickness 0.5 RV Internal Dim ED PLAX 3.6 cm LV Diastolic Volume MOD BP 142.5 cm??? 67 - 155 / 56 - 104 cm??? LV Systolic Volume MOD BP 65.8 cm??? 22 - 58 / 19 - 49 cm??? LV Ejection Fraction MOD BP 53.8 % >= 55 % LV Cardiac Index MOD BP 2296.1 cm???/min???m??? LV Diastolic Volume MOD 4C 136.8 cm??? LV Systolic Volume MOD 4C 58.0 cm??? LV Ejection Fraction MOD 4C 57.6 % LV Cardiac Index MOD 4C 2358.6 cm???/min???m??? LV Diastolic Length 4C 10.0 cm LV Systolic Length 4C 8.1 cm LV Diastolic Volume MOD 2C 148.5 cm??? LV Systolic Volume MOD 2C 70.8 cm??? LV Ejection Fraction MOD 2C 52.3 % LV Cardiac Index MOD 2C 2325.4 cm???/min???m??? LV Diastolic Length 2C 10.0 cm LV Systolic Length 2C 8.7 cm DOPPLER TR Peak Velocity 229.7 cm/s TR Peak Gradient 21.1 mmHg Right Atrial Pressure 5.0 mmHg Pulmonary Artery Systolic Pressu 26.1 mmHg Right Ventricular Systolic Press 26.1 mmHg FINDINGS Left Ventricle Left ventricular ejection fraction is estimated at 50-55 %. Mildly increased septal wall thickness. Mildly increased left ventricular systolic volume. Mildly decreased left ventricular ejection fraction. No obvious regional wall motion abnormalities. Right Ventricle Right ventricular systolic pressure within normal limits. Mild right ventricular dilatation with normal function. Right Atrium Normal right atrial size by visual. Left Atrium Mild left atrial dilatation by visual. Mitral Valve Structurally normal mitral valve. No evidence for mitral valve prolapse. No mitral stenosis. Mild mitral regurgitation. Aortic Valve Trileaflet aortic valve. Tricuspid Valve Structurally normal tricuspid valve. No tricuspid stenosis. Trace tricuspid regurgitation. Pulmonic Valve Structurally normal pulmonic valve. Pericardium No pericardial effusion. Aorta Aortic root and proximal ascending aorta not assessed. CONCLUSIONS Left ventricular ejection fraction 50-55% Mildly increased left ventricular wall thickness Mild mitral regurgitation RVSP 26 No pericardial effusion Previewed by: Dr. Ruddy Funk DO (Electronically Signed) Final Date: 21 September 2023 10:02
[2023-09-21 11:17] VITALS: BP 108/60; TEMP 97.8
--- NOTE | 2023-09-21 11:55 | P.PN ---
Subjective patient is seen for follow-up for end-stage renal disease. Scheduled for hemodialysis in a.m. Patient is being discharged today No complaints of chest pain. Objective - Vital Signs Vital signs: Vital Signs Temp 97.8 F 09/21/23 07:00 Pulse 59 L 09/21/23 08:00 Resp 16 09/21/23 08:00 BP 108/60 09/21/23 07:00 Pulse Ox 98 09/21/23 07:00 FiO2 Intake & Output 09/20/23 09/21/23 09/21/23 18:59 06:59 18:59 Intake Total 250 Balance 250 Intake: Oral 250 Other: # Voids 1 1 - Exam patient is awake, comfortable, no acute distress Alert oriented 3 Appears euvolemic with no evidence of edema and lower extremities INTRAMURAL DIRECTOR exam grossly intact - Labs CBC & Chem 7: 09/21/23 06:22 09/21/23 06:22 Labs: Abnormal Lab Results - Last 24 Hours (Table) 09/20/23 09/20/23 09/21/23 Range/Units 14:58 20:13 06:22 RBC 3.34 L (4.40-5.60) X 10*6/uL Hgb 9.9 L (13.0-17.0) g/dL Hct 29.7 L (39.6-50.0) % Plt Count 115 L (140-440) X 10*3/uL MPV 8.8 L (9.5-12.2) FL D-Dimer 0.63 H (<0.60) mg/L FEU BUN (9.0-27.0) mg/dL Creatinine (0.6-1.5) mg/dL Est GFR (CKD-EPI) (>=60) Glucose (70-110) mg/dL POC Glucose (mg/dL) 244 H (70-110) mg/dL Calcium (8.7-10.3) mg/dL Alkaline Phosphatase (41-126) U/L Lipase (14-60) U/L 09/21/23 Range/Units 06:22 RBC (4.40-5.60) X 10*6/uL Hgb (13.0-17.0) g/dL Hct (39.6-50.0) % Plt Count (140-440) X 10*3/uL MPV (9.5-12.2) FL D-Dimer (<0.60) mg/L FEU BUN 60.7 H (9.0-27.0) mg/dL Creatinine 4.4 H (0.6-1.5) mg/dL Est GFR (CKD-EPI) 15 L (>=60) Glucose 171 H (70-110) mg/dL POC Glucose (mg/dL) (70-110) mg/dL Calcium 8.2 L (8.7-10.3) mg/dL Alkaline Phosphatase 134 H (41-126) U/L Lipase 132 H (14-60) U/L Assessment and Plan Assessment: 1. End-stage renal disease on hemodialysis on a Thursday schedule 2. Chest pain with negative troponins 3. History of coronary artery disease with multiple coronary stents 4. CK D mineral bone disorder Plan: patient can be discharged from nephrology standpoint. Follow-up for hemodialysis on Thursday as outpatient.
[2023-09-21 12:52] LABS: Glucose,Whole Blood 299 mg/dL (70-110)
--- NOTE | 2023-09-24 06:55 | P.DS ---
Providers Date of admission: 09/19/23 16:25 Expected date of discharge: 09/21/23 Attending physician: Shakeel Miramontes Consults: 09/19/23 14:53 Consult Physician Routine Consulting Provider: Karlo Davis Consult Reason/Comments: chest pain Do you want consulting provider notified?: Yes 09/19/23 14:54 Consult Physician Routine Consulting Provider: Kristina Gomez Consult Reason/Comments: crf Do you want consulting provider notified?: Yes Primary care physician: Tyler Newton Hospital Course: Final diagnosis Chest pain, possible unstable angina with persistent chest pain, ACS ruled out History of renal disease, on hemodialysis Bradycardia, nonspecific ST changes on the EKG History of coronary artery disease with stenting CVA/TIA history Elevated lipase Diabetes mellitus, type II, uncontrolled with hyper and hypoglycemia Hypertension history Hyperlipidemia Noncompliance with outpatient follow-up GI prophylaxis DVT prophylaxis Full code Discharge disposition Patient is being discharged in a stable condition with guarded prognosis to home. Patient will follow-up with Dr. scott in the outpatient setting upon discharge. Patient is to continue with hemodialysis as scheduled and outpatient follow-up with nephrology as well as cardiology. To discuss with boring machine operator horizontal regarding outpatient testing and imaging. Total time taken is greater than 35 minutes. Hospital course This is a 58-year-old male who was recently admitted with chest pain being closely monitored. Patient evaluated by cardiology with adjustments to medications recommending outpatient follow-up. Patient to be evaluated outpatient for further testing per cardiology. Patient also being monitored by nephrology as patient is maintained on hemodialysis. Continue with current scheduling and outpatient follow-up. Patient has been cleared by consultations. Please refer to other consultation notes for further HPI. Currently no reports of chest pain, shortness of breath, or palpitations. Patient is afebrile. No reports of nausea or vomiting and patient is tolerating diet. Patient will be discharged home with guarded prognosis. High risk for readmissions given patient's significant comorbidities. Physical exam: Gen: This is a 58-year-old male who is awake, alert and oriented x 3, well- developed, well-nourished, elderly appearing HEENT: Head is atraumatic, normocephalic. Pupils equal, round. Sclerae is anicteric. NECK: Supple. No JVD. No lymphadenopathy. No thyromegaly. LUNGS: Diminished breath sounds bilaterally otherwise clear to auscultation. No wheezes or rhonchi. No intercostal retractions. HEART: S1, S2 are muffled ABDOMEN: Soft. Obese bowel sounds are present. No masses. No tenderness. EXTREMITIES: No pedal edema. No calf tenderness. NEUROLOGICAL: Patient is awake, alert and oriented x3. Cranial nerves 2 through 12 are grossly intact. Please refer to medication reconciliation sheet for a list of medications. The impression and plan of care has been dictated by Gabi Lazcano, Nurse Practitioner as directed. Dr. Kulwinder MD I have performed a history and examination and MDM of this patient, discussed the same with the dictator, and agree with the dictator's assessment and plan as written ,documented as a scribe. Based on total visit time, I have performed more than 50% of the visit. Patient Condition at Discharge: Fair Plan - Discharge Summary Discharge Rx Participant: Yes New Discharge Prescriptions: New Acetaminophen Tab [Tylenol] 650 mg PO Q6HR PRN tab PRN Reason: Mild Pain Or Fever > 100.5 Ranolazine [Ranexa] 500 mg PO Q12HR #60 tab Continue Pantoprazole [Protonix] 40 mg PO BID Tamsulosin [Flomax] 0.8 mg PO HS Citalopram Hydrobromide [CeleXA] 20 mg PO DAILY allopurinoL [Zyloprim] 100 mg PO DAILY Isosorbide Mononitrate ER [Imdur] 60 mg PO DAILY Atorvastatin [Lipitor] 80 mg PO HS Citalopram Hydrobromide [CeleXA] 40 mg PO DAILY Insulin Detemir (Levemir) [Levemir] 10 unit SQ HS #10 ml Clopidogrel [Plavix] 75 mg PO HS #30 tab Aspirin [[place] Aspirin EC] 81 mg PO DAILY #30 tab Furosemide [Lasix] 80 mg PO DAILY #60 tab Loratadine [Claritin] 10 mg PO DAILY Docusate [Colace] 100 mg PO DAILY Calcium Acetate [PhosLo] 667 mg PO TID-W/MEALS #90 tab INSULIN ASPART (NovoLOG) [NovoLOG (formulary)] See Protocol SQ AC-TID Folic Acid/Vit B Complex and C [Nephro-Cirilo Tablet] 0.8 mg PO DAILY NIFEdipine XL [Procardia XL] 60 mg PO BID Metoprolol Succinate (ER) [Toprol XL] 50 mg PO DAILY Losartan [Cozaar] 25 mg PO DAILY Discharge Medication List Pantoprazole [Protonix] 40 mg PO BID 11/05/17 [History] Tamsulosin [Flomax] 0.8 mg PO HS 11/05/17 [History] Citalopram Hydrobromide [CeleXA] 20 mg PO DAILY 12/12/18 [History] allopurinoL [Zyloprim] 100 mg PO DAILY 04/05/19 [History] Atorvastatin [Lipitor] 80 mg PO HS 12/30/19 [History] Isosorbide Mononitrate ER [Imdur] 60 mg PO DAILY 12/30/19 [History] Citalopram Hydrobromide [CeleXA] 40 mg PO DAILY 06/29/20 [History] Loratadine [Claritin] 10 mg PO DAILY 01/21/21 [History] Docusate [Colace] 100 mg PO DAILY 01/30/23 [History] Aspirin [[place] Aspirin EC] 81 mg PO DAILY #30 tab 03/18/23 [Rx] Calcium Acetate [PhosLo] 667 mg PO TID-W/MEALS #90 tab 03/18/23 [Rx] Clopidogrel [Plavix] 75 mg PO HS #30 tab 03/18/23 [Rx] Insulin Detemir (Levemir) [Levemir] 10 unit SQ HS #10 ml 03/18/23 [Rx] Folic Acid/Vit B Complex and C [Nephro-Cirilo Tablet] 0.8 mg PO DAILY 05/05/23 [History] INSULIN ASPART (NovoLOG) [NovoLOG (formulary)] See Protocol SQ AC-TID 05/05/23 [History] Furosemide [Lasix] 80 mg PO DAILY #60 tab 05/08/23 [Rx] NIFEdipine XL [Procardia XL] 60 mg PO BID 06/29/23 [History] Losartan [Cozaar] 25 mg PO DAILY 09/19/23 [History] Metoprolol Succinate (ER) [Toprol XL] 50 mg PO DAILY 09/19/23 [History] Acetaminophen Tab [Tylenol] 650 mg PO Q6HR PRN tab 09/21/23 [Rx] Ranolazine [Ranexa] 500 mg PO Q12HR #60 tab 09/21/23 [Rx] Follow up Appointment(s)/Referral(s): Karlo Davis MD [Medical Doctor] - 09/29/23 2:15 pm (Appointment made at the [facility] ) Kristina Gomez MD [STAFF PHYSICIAN] - 1 Week Lamar Scott MD [Primary Care Provider] - 1-2 days Patient Instructions/Handouts: Angina (GEN), Chest Pain (GEN) Activity/Diet/Wound Care/Special Instructions: Activity limited until follow-up Follow-up with primary care provider on discharge Follow-up with cardiology in 1 to 2 weeks Continue taking medications as prescribed Follow-up with nephrology outpatient Discharge/Stand Alone Forms: Area PCPs Discharge Disposition: HOME SELF-CARE
== END 2023-09-21 14:30 | disposition home or self-care (01) ==
LOC: EC 13:46 → 6NMEDSUR 16:25
PROVIDERS: ADMIT Hospitalist; ATTEND Hospitalist
DX: R07.89 Other chest pain (principal); Z99.2 Dependence on renal dialysis; E11.22 Type 2 diabetes mellitus with diabetic chronic kidney disease; N18.6 End stage renal disease; I25.10 Atherosclerotic heart disease of native coronary artery without angina pectoris; R94.31 Abnormal electrocardiogram [ECG] [EKG]; R00.1 Bradycardia, unspecified; Z86.73 Personal history of transient ischemic attack (TIA), and cerebral infarction without residual deficits; I12.0 Hypertensive chronic kidney disease with stage 5 chronic kidney disease or end stage renal disease; E78.5 Hyperlipidemia, unspecified
CPT/HCPCS: 96376; 96365; 96366; 99285; 36415; 93005; 93308; 85379; 80053 ×2; 80048; 82150; 83690 ×2; 83735; 84484; 85025 ×3; 85610; 85730; 71046; G0378 ×3; J2270 ×2; Q9957

== ENCOUNTER 2023-10-16 04:21 | Emergency (ER) | payer MEDICARE ==
--- NOTE | 2023-10-16 04:58 | ED ---
General Adult HPI - General Source: patient, EMS Mode of arrival: EMS Limitations: no limitations - History of Present Illness Location: right, upper extremity Radiation: non-radiation Quality: aching Consistency: constant Improves with: none Worsens with: other (Physician) Treatments Prior to Arrival: none <Rubio Cxo - Last Filed: 10/16/23 05:21> <Kylie Arcos - Last Filed: 10/16/23 08:43> - General Chief complaint: Chest Pain Stated complaint: Chest pain Time Seen by Provider: 10/16/23 04:35 - History of Present Illness Initial comments: This patient is a 58-year-old man who presents with a number of complaints. Patient states that he has been having right shoulder pain. He indicates the lateral aspect of the area at the upper deltoid. He states this has been going on since he had surgery for his dialysis graft. He states that at that time he had a nerve block and his shoulder has not felt right since. The pain is worse with trying to raise his arm. It is better if he just rests his arm. He has n ot noted weakness or numbness of the arm. Patient also reports that since his dialysis session yesterday he has not been feeling well. He states he is having nausea, feeling lightheaded like he will pass out. Patient denies chest pain or dyspnea. No nausea, vomiting, diaphoresis. (Rubio Cox) - Related Data Home Medications Medication Instructions Recorded Confirmed Pantoprazole [Protonix] 40 mg PO BID 11/05/17 09/19/23 Tamsulosin [Flomax] 0.8 mg PO HS 11/05/17 09/19/23 Citalopram Hydrobromide [CeleXA] 20 mg PO DAILY 12/12/18 09/19/23 allopurinoL [Zyloprim] 100 mg PO DAILY 04/05/19 09/19/23 Atorvastatin [Lipitor] 80 mg PO HS 12/30/19 09/19/23 Isosorbide Mononitrate ER [Imdur] 60 mg PO DAILY 12/30/19 09/19/23 Citalopram Hydrobromide [CeleXA] 40 mg PO DAILY 06/29/20 09/19/23 Loratadine [Claritin] 10 mg PO DAILY 01/21/21 09/19/23 Docusate [Colace] 100 mg PO DAILY 01/30/23 09/19/23 Folic Acid/Vit B Complex and C 0.8 mg PO DAILY 05/05/23 09/19/23 [Nephro-Cirilo Tablet] INSULIN ASPART (NovoLOG) [NovoLOG See Protocol SQ AC-TID 05/05/23 09/19/23 (formulary)] NIFEdipine XL [Procardia XL] 60 mg PO BID 06/29/23 09/19/23 Losartan [Cozaar] 25 mg PO DAILY 09/19/23 09/19/23 Metoprolol Succinate (ER) [Toprol 50 mg PO DAILY 09/19/23 09/19/23 XL] Previous Rx's Medication Instructions Recorded Aspirin [[place] Aspirin EC] 81 mg PO DAILY #30 tab 03/18/23 Calcium Acetate [PhosLo] 667 mg PO TID-W/MEALS #90 tab 03/18/23 Clopidogrel [Plavix] 75 mg PO HS #30 tab 03/18/23 Insulin Detemir (Levemir) [Levemir] 10 unit SQ HS #10 ml 03/18/23 Furosemide [Lasix] 80 mg PO DAILY #60 tab 05/08/23 Acetaminophen Tab [Tylenol] 650 mg PO Q6HR PRN tab 09/21/23 Ranolazine [Ranexa] 500 mg PO Q12HR #60 tab 09/21/23 Allergies Allergy/AdvReac Type Severity Reaction Status Date / Time Iodinated Contrast Media AdvReac Nausea & Verified 10/16/23 04:31 [Iodinated Contrast- Oral Vomiting and IV Dye] sucralfate AdvReac Nausea & Verified 10/16/23 04:31 Vomiting Review of Systems ROS Other: All systems not noted in ROS Statement are negative. Constitutional: Denies: fever, chills, weakness Respiratory: Denies: cough, dyspnea Cardiovascular: Denies: chest pain, palpitations, orthopnea, edema, syncope Gastrointestinal: Reports: nausea. Denies: abdominal pain, vomiting, diarrhea Musculoskeletal: Denies: back pain Skin: Denies: rash Neurological: Denies: headache, weakness, numbness <Rubio Cox - Last Filed: 10/16/23 05:21> ROS Other: All systems not noted in ROS Statement are negative. <Kylie Arcos - Last Filed: 10/16/23 08:43> ROS Statement: Those systems with pertinent positive or pertinent negative responses have been documented in the HPI. Past Medical History Past Medical History: Coronary Artery Disease (CAD), Chest Pain / Angina, CVA/TIA, Diabetes Mellitus, Eye Disorder, GERD/Reflux, Hearing Disorder / Deafness, Hyperlipidemia, Hypertension, Myocardial Infarction (RI), Prostate Disorder, Renal Disease, Rheumatoid Arthritis (RA) Additional Past Medical History / Comment(s): RI X2 in 2014 and 02/2023., 02 3L/NC., Hx stroke Apr 2017. , hx tia's ., left side weakness., Migranes., Diabetic neuropathy arms and legs, tremors off and on, circulation problems, uses quad cane and wheelchair., Kidney disease with dialysis [facility]. Hx Pancreatitis., Legally blind, some trouble hearing. Enlarged prostate, trouble urinating. , hx of recent uti's., anemia., constipation Last Myocardial Infarction Date:: 02/2023 History of Any Multi-Drug Resistant Organisms: None Reported Past Surgical History: Cholecystectomy, Heart Catheterization, Heart Catheter ization With Stent, Heart Catheterization With Stent, Hernia Repair, Prostate Surgery Additional Past Surgical History / Comment(s): Dialysis Port Placed - 03/14/23, HIATAL HERNIA REPAIR - 01/23/21., states hx 5 heart caths with 5 stents. Past Anesthesia/Blood Transfusion Reactions: No Reported Reaction Additional Past Anesthesia/Blood Transfusion Reaction / Comment(s): . Date of Last Stent Placement:: 05/07/23 Past Psychological History: Anxiety, Depression Smoking Status: Never smoker Past Alcohol Use History: None Reported Past Drug Use History: None Reported - Past Family History Mother Family Medical History: CVA/TIA, Diabetes Mellitus, Hypertension Additional Family Medical History / Comment(s): Parkinson's. Father Family Medical History: CVA/TIA, Diabetes Mellitus, Myocardial Infarction (RI) Additional Family Medical History / Comment(s): Father of a RI in his 50s. <Rubio Cox - Last Filed: 10/16/23 05:21> General Exam Limitations: no limitations General appearance: alert, in no apparent distress Head exam: Present: atraumatic, normocephalic Eye exam: Present: normal appearance. Absent: scleral icterus, conjunctival injection Neck exam: Present: normal inspection, full ROM Respiratory exam: Present: normal lung sounds bilaterally. Absent: respiratory distress, wheezes, rales, rhonchi, stridor, chest wall tenderness, accessory muscle use Cardiovascular Exam: Present: regular rate, normal rhythm, normal heart sounds. Absent: systolic murmur, diastolic murmur, rubs, gallop GI/Abdominal exam: Present: soft. Absent: distended, tenderness, guarding, rebound, rigid, mass Extremities exam: Present: normal inspection, normal capillary refill. Absent: pedal edema, calf tenderness Back exam: Present: normal inspection Neurological exam: Present: alert. Absent: motor sensory deficit Skin exam: Present: warm, dry, intact, normal color. Absent: rash <Rubio Cox - Last Filed: 10/16/23 05:21> Course Vital Signs 10/16/23 10/16/23 10/16/23 04:33 05:12 05:27 Temperature 98.5 F Pulse Rate 73 73 Respiratory 18 15 Rate Blood Pressure 201/91 208/94 196/96 O2 Sat by Pulse 100 100 Oximetry 10/16/23 10/16/23 06:11 07:13 Temperature Pulse Rate 72 70 Respiratory 16 14 Rate Blood Pressure 169/85 149/76 O2 Sat by Pulse 99 99 Oximetry EKG Findings - EKG Results: EKG: interpreted by DEISI, sinus rhythm (Rate 71 bpm), normal axis - Blocks, [place], Hypertrophy, ST Abn: Chamber hypertrophy or enlargement: only voltage criteria for left ventricular hypertrophy Repolarization changes or abnormalities: Q-T interval prolongation <Rubio Cox - Last Filed: 10/16/23 05:21> Medical Decision Making - Lab Data Result diagrams: 10/16/23 05:02 10/16/23 05:02 <Kylie Arcos - Last Filed: 10/16/23 08:43> - Medical Decision Making Was patient admitted / discharged? Hospital course, mention meds given and route, prescriptions, significant lab abnormalities, going to OR and other pertinent info. @ -Patient was signed out to me pending read of the ultrasound. This is reviewed by myself and negative for any acute process. Laboratory studies are also within normal limits. This is discussed with the patient. He has had this pain since June. At this time the patient is medically cleared for discharge home. Patient should follow-up with his primary care doctor and metal control coordinator fo r further evaluation of his symptoms. Return for any new or worsening symptoms. Patient agreeable to plan was discharged in stable condition Undiagnosed new problem with uncertain prognosis? @ -Yes Drug Therapy requiring intensive monitoring for toxicity (Heparin, Nitro, Insulin, Cardizem)? @ -No Were any procedures done? @ -No Diagnosis/symptom? @ -Chronic right shoulder pain, history of end-stage renal disease on hemodialysis Acute, or Chronic, or Acute on Chronic? @ -Chronic Uncomplicated (without systemic symptoms) or Complicated (systemic symptoms)? @ -Complicated Side effects of treatment? @ -No Exacerbation, Progression, or Severe Exacerbation? @ -No Poses a threat to life or bodily function? How? (Chest pain, [place], RI, pneumonia, PE, COPD, DKA, ARF, appy, cholecystitis, CVA, Diverticulitis, Homicidal, Suicidal, threat to staff... and all critical care pts) @ -No (Kylie Arcos) - Lab Data Lab Results 10/16/23 10/16/23 10/16/23 Range/Units 05:02 05:02 05:02 WBC 5.6 (3.8-10.6) k/uL RBC 2.91 L (4.30-5.90) m/uL Hgb 8.7 L D (13.0-17.5) gm/dL Hct 25.4 L (39.0-53.0) % MCV 87.1 (80.0-100.0) fL MCH 30.0 (25.0-35.0) pg MCHC 34.5 (31.0-37.0) g/dL RDW 14.4 (11.5-15.5) % Plt Count 125 L (150-450) k/uL MPV 7.4 Neutrophils % 67 % Lymphocytes % 23 % Monocytes % 7 % Eosinophils % 2 % Basophils % 0 % Neutrophils # 3.8 (1.3-7.7) k/uL Lymphocytes # 1.3 (1.0-4.8) k/uL Monocytes # 0.4 (0-1.0) k/uL Eosinophils # 0.1 (0-0.7) k/uL Basophils # 0.0 (0-0.2) k/uL PT 10.8 (10.0-12.5) sec INR 1.0 (<1.2) APTT 25.5 (22.0-30.0) sec Sodium 137 (137-145) mmol/L Potassium 3.8 (3.5-5.1) mmol/L Chloride 97 L (98-107) mmol/L Carbon Dioxide 29 (22-30) mmol/L Anion Gap 11 mmol/L BUN 41 H (9-20) mg/dL Creatinine 3.19 H (0.66-1.25) mg/dL Est GFR (CKD-EPI)AfAm 24 (>60 ml/min/1.73 sqM) Est GFR (CKD-EPI)NonAf 21 (>60 ml/min/1.73 sqM) Glucose 178 H (74-99) mg/dL Calcium 8.1 L (8.4-10.2) mg/dL Magnesium 1.5 L (1.6-2.3) mg/dL Total Bilirubin 0.6 (0.2-1.3) mg/dL AST 26 (17-59) U/L ALT 32 (4-49) U/L Alkaline Phosphatase 122 (38-126) U/L Troponin I (0.000-0.034) ng/mL Total Protein 6.9 (6.3-8.2) g/dL Albumin 4.2 (3.5-5.0) g/dL Amylase 84 (30-110) U/L Lipase 306 H (23-300) U/L 10/16/23 Range/Units 05:02 WBC (3.8-10.6) k/uL RBC (4.30-5.90) m/uL Hgb (13.0-17.5) gm/dL Hct (39.0-53.0) % MCV (80.0-100.0) fL MCH (25.0-35.0) pg MCHC (31.0-37.0) g/dL RDW (11.5-15.5) % Plt Count (150-450) k/uL MPV Neutrophils % % Lymphocytes % % Monocytes % % Eosinophils % % Basophils % % Neutrophils # (1.3-7.7) k/uL Lymphocytes # (1.0-4.8) k/uL Monocytes # (0-1.0) k/uL Eosinophils # (0-0.7) k/uL Basophils # (0-0.2) k/uL PT (10.0-12.5) sec INR (<1.2) APTT (22.0-30.0) sec Sodium (137-145) mmol/L Potassium (3.5-5.1) mmol/L Chloride (98-107) mmol/L Carbon Dioxide (22-30) mmol/L Anion Gap mmol/L BUN (9-20) mg/dL Creatinine (0.66-1.25) mg/dL Est GFR (CKD-EPI)AfAm (>60 ml/min/1.73 sqM) Est GFR (CKD-EPI)NonAf (>60 ml/min/1.73 sqM) Glucose (74-99) mg/dL Calcium (8.4-10.2) mg/dL Magnesium (1.6-2.3) mg/dL Total Bilirubin (0.2-1.3) mg/dL AST (17-59) U/L ALT (4-49) U/L Alkaline Phosphatase (38-126) U/L Troponin I 0.026 (0.000-0.034) ng/mL Total Protein (6.3-8.2) g/dL Albumin (3.5-5.0) g/dL Amylase (30-110) U/L Lipase (23-300) U/L Disposition <Rubio Cox - Last Filed: 10/16/23 05:21> Is patient prescribed a controlled substance at d/c from ED?: No Time of Disposition: 08:25 <Kylie Arcos - Last Filed: 10/16/23 08:43> Clinical Impression: Shoulder pain Disposition: HOME SELF-CARE Condition: Stable Instructions (If sedation given, give patient instructions): Shoulder Pain (ED) Additional Instructions: Please follow-up with your primary care doctor and metal control coordinator in regards to your symptoms. Return for any new or worsening symptoms Referrals: None,Stated [Primary Care Provider] - 1-2 days
[2023-10-16 05:22] LABS: ALT 32 U/L (4-49); AST 26 U/L (17-59); African American GFR (CKD) 24 (>60 ml/min/1.73 sqM); Albumin 4.2 g/dL (3.5-5.0); Alkaline Phosphatase 122 U/L (38-126); Amylase 84 U/L (30-110); Anion Gap 11 mmol/L; Blood Urea Nitrogen 41 mg/dL (9-20); Calcium 8.1 mg/dL (8.4-10.2); Carbon Dioxide 29 mmol/L (22-30); Chloride 97 mmol/L (98-107); Glucose 178 mg/dL (74-99); Lipase 306 U/L (23-300); Magnesium 1.5 mg/dL (1.6-2.3); Non-African American GFR(CKD) 21 (>60 ml/min/1.73 sqM); Potassium 3.8 mmol/L (3.5-5.1); Sodium 137 mmol/L (137-145); Total Bilirubin 0.6 mg/dL (0.2-1.3); Total Protein 6.9 g/dL (6.3-8.2)
[2023-10-16 05:23] LABS: Partial Thromboplastin Time 25.5 sec (22.0-30.0); Prothrombin Time 10.8 sec (10.0-12.5)
[2023-10-16] MEDS: MORPHINE SULFATE 4 MG/ML SYRINGE IV STA (05:24)
[2023-10-16 05:32] LABS: Basophils % (A) 0 %; Eosinophils # (A) 0.1 k/uL (0-0.7); Eosinophils % (A) 2 %; HCT 25.4 % (39.0-53.0); Lymphocytes # (A) 1.3 k/uL (1.0-4.8); Lymphocytes % (A) 23 %; MCHC 34.5 g/dL (31.0-37.0); MCV 87.1 fL (80.0-100.0); Mean Platelet Volume 7.4; Monocytes # (A) 0.4 k/uL (0-1.0); Monocytes % (A) 7 %; Neutrophils # (A) 3.8 k/uL (1.3-7.7); Neutrophils % (A) 67 %; Platelet Count 125 k/uL (150-450); RBC 2.91 m/uL (4.30-5.90); RDW 14.4 % (11.5-15.5); WBC 5.6 k/uL (3.8-10.6)
[2023-10-16 05:47] LABS: HGB 8.7 gm/dL (13.0-17.5)
[2023-10-16 05:53] VITALS: TEMP 98.5
--- NOTE | 2023-10-16 07:06 | XR ---
EXAMINATION TYPE: XR chest 2V DATE OF EXAM: 10/16/2023 COMPARISON: 09/19/2023 HISTORY: Shortness of breath TECHNIQUE: Frontal and lateral views of the chest are obtained. FINDINGS: Scattered senescent parenchymal changes noted. Hyperinflation compatible with COPD. No evidence for infiltrate. No evidence for atelectasis. Heart size is stable. Mediastinal structures are stable and grossly unremarkable. No evidence for hilar prominence. Degenerative changes dorsal spine. IMPRESSION: 1. No evidence for acute pulmonary disease.
--- NOTE | 2023-10-16 08:05 | US ---
EXAMINATION TYPE: US venous doppler duplex UE RT DATE OF EXAM: 10/16/2023 COMPARISON: NONE CLINICAL INDICATION: Male, 58 years old with history of right arm pain, possible DVT; SIDE PERFORMED: Right Right Arm: Negative for DVT Left Arm: NA IMPRESSION: Grayscale, color doppler, spectral doppler imaging performed of the deep veins of the upper extremiti es. There is normal flow, compressibility and vascular waveforms.
[2023-10-16] MEDS: MORPHINE SULFATE 4 MG/ML SYRINGE IVP STA (08:53)
[2023-10-16] MEDS: ONDANSETRON ODT 4 MG TAB PO STA (09:15)
[2023-10-16 09:39] VITALS: BP 154/77; PULSE 82; RESP 17
== END 2023-10-16 09:26 | disposition home or self-care (01) ==
LOC: EC 04:21
DX: M25.511 Pain in right shoulder (principal)
CPT/HCPCS: 36415; 93005; 80053; 82150; 83690; 83735; 84484; 85025; 85610; 85730; 71046; 93971; 99285; 96374; 96376; J2270

== ENCOUNTER 2023-12-01 13:19 | Observation (INO) | payer MEDICARE ==
--- NOTE | 2023-12-01 13:35 | ED ---
General Adult HPI <Dylon Sim - Last Filed: 12/01/23 17:20> - General Source: patient, EMS, RN notes reviewed Mode of arrival: EMS Limitations: no limitations <Lauri Sam - Last Filed: 12/02/23 07:37> - General Chief complaint: Chest Pain Stated complaint: chest pain Time Seen by Provider: 12/01/23 13:23 - History of Present Illness Initial comments: Patient is a 58-year-old male present to the emergency department chest discomfort. Patient has had some symptoms the past day or so. Symptoms improved with nitroglycerin. Patient has a difficult time describing the type of discomfort that he was having. Patient feels a little bit short of breath with it. Patient was nauseated that resolved with medication by EMS. Patient does have history of similar symptoms previously associated with previous cardiac problems. Discomfort is mild at this time. No radiation of (Lauri Gutierrez) - Related Data Home Medications Medication Instructions Recorded Confirmed Pantoprazole [Protonix] 40 mg PO BID 11/05/17 12/01/23 Tamsulosin [Flomax] 0.8 mg PO HS 11/05/17 12/01/23 Citalopram Hydrobromide [CeleXA] 20 mg PO DAILY 12/12/18 12/01/23 allopurinoL [Zyloprim] 100 mg PO DAILY 04/05/19 12/01/23 Atorvastatin [Lipitor] 80 mg PO HS 12/30/19 12/01/23 Isosorbide Mononitrate ER [Imdur] 60 mg PO DAILY 12/30/19 12/01/23 Citalopram Hydrobromide [CeleXA] 40 mg PO DAILY 06/29/20 12/01/23 Loratadine [Claritin] 10 mg PO DAILY 01/21/21 12/01/23 Docusate [Colace] 100 mg PO DAILY 01/30/23 12/01/23 Folic Acid/Vit B Complex and C 0.8 mg PO DAILY 05/05/23 12/01/23 [Nephro-Cirilo Tablet] INSULIN ASPART (NovoLOG) [NovoLOG See Protocol SQ AC-TID 05/05/23 12/01/23 (formulary)] NIFEdipine XL [Procardia XL] 30 mg PO BID 06/29/23 12/01/23 Losartan [Cozaar] 25 mg PO DAILY 09/19/23 12/01/23 Metoprolol Succinate (ER) [Toprol 50 mg PO DAILY 09/19/23 12/01/23 XL] Furosemide [Lasix] 80 mg PO DAILY 10/16/23 12/01/23 Nitroglycerin Sl Tabs [Nitrostat] 0.4 mg SL Q5M PRN 10/16/23 12/01/23 hydrALAZINE HCL [Apresoline] 25 mg PO BID 10/16/23 12/01/23 Previous Rx's Medication Instructions Recorded Aspirin [[place] Aspirin EC] 81 mg PO DAILY #30 tab 03/18/23 Clopidogrel [Plavix] 75 mg PO HS #30 tab 03/18/23 Insulin Detemir (Levemir) [Levemir] 10 unit SQ HS #10 ml 03/18/23 Acetaminophen Tab [Tylenol] 650 mg PO Q6HR PRN tab 09/21/23 Ranolazine [Ranexa] 500 mg PO Q12HR #60 tab 09/21/23 Allergies Allergy/AdvReac Type Severity Reaction Status Date / Time hydromorphone AdvReac Confusion Verified 12/01/23 14:07 Iodinated Contrast Media AdvReac Nausea & Verified 12/01/23 14:07 [Iodinated Contrast- Oral Vomiting and IV Dye] morphine AdvReac Vomiting Verified 12/01/23 14:07 sucralfate AdvReac Nausea & Verified 12/01/23 14:07 Vomiting Review of Systems ROS Other: All systems not noted in ROS Statement are negative. <Dylon Sim - Last Filed: 12/01/23 17:20> ROS Other: All systems not noted in ROS Statement are negative. Constitutional: Denies: fever Eyes: Denies: eye pain ENT: Denies: ear pain Respiratory: Denies: cough Cardiovascular: Reports: as per HPI, chest pain Endocrine: Denies: fatigue Gastrointestinal: Denies: abdominal pain Musculoskeletal: Denies: back pain <Lauri Sam - Last Filed: 12/02/23 07:37> ROS Statement: Those systems with pertinent positive or pertinent negative responses have been documented in the HPI. Past Medical History Past Medical History: Coronary Artery Disease (CAD), Chest Pain / Angina, CVA/TIA, Diabetes Mellitus, Eye Disorder, GERD/Reflux, Hearing Disorder / Deafness, Hyperlipidemia, Hypertension, Myocardial Infarction ([place]), Prostate Disorder, Renal Disease, Rheumatoid Arthritis (RA) Additional Past Medical History / Comment(s): [place] X2 in 2014 and 02/2023., 02 3L/[place]., Hx stroke Apr 2017. , hx tia's ., left side weakness., Migranes., Diabetic neuropathy arms and legs, tremors off and on, circulation problems, uses quad cane and wheelchair., Kidney disease with dialysis TUTHSA. Hx Pancreatitis., Legally blind, some trouble hearing. Enlarged prostate, trouble urinating. , hx of recent uti's., anemia., constipation Last Myocardial Infarction Date:: 02/2023 History of Any Multi-Drug Resistant Organisms: None Reported Past Surgical History: Cholecystectomy, Heart Catheterization, Heart Catheterization With Stent, Heart Catheterization With Stent, Hernia Repair, Prostate Surgery Additional Past Surgical History / Comment(s): Dialysis Port Placed - 03/14/23, HIATAL HERNIA REPAIR - 01/23/21., states hx 5 heart caths with 5 stents. Past Anesthesia/Blood Transfusion Reactions: No Reported Reaction Additional Past Anesthesia/Blood Transfusion Reaction / Comment(s): . Date of Last Stent Placement:: 05/07/23 Past Psychological History: Anxiety, Depression Smoking Status: Never smoker Past Alcohol Use History: None Reported Past Drug Use History: None Reported - Past Family History Mother Family Medical History: CVA/TIA, Diabetes Mellitus, Hypertension Additional Family Medical History / Comment(s): Parkinson's. Father Family Medical History: CVA/TIA, Diabetes Mellitus, Myocardial Infarction ([place]) Additional Family Medical History / Comment(s): Father of a [place] in his 50s. <Lauri Sam - Last Filed: 12/02/23 07:37> General Exam General appearance: alert, in no apparent distress Head exam: Present: atraumatic, normocephalic, normal inspection Eye exam: Present: normal appearance, PERRL, EOMI. Absent: scleral icterus, conjunctival injection, periorbital swelling ENT exam: Present: normal exam, mucous membranes moist Neck exam: Present: normal inspection. Absent: tenderness, meningismus, lymphadenopathy Respiratory exam: Present: normal lung sounds bilaterally. Absent: respiratory distress, wheezes, rales, rhonchi, stridor Cardiovascular Exam: Present: regular rate, normal rhythm, normal heart sounds. Absent: systolic murmur, diastolic murmur, rubs, gallop, clicks GI/Abdominal exam: Present: soft, normal bowel sounds. Absent: distended, tenderness, guarding, rebound, rigid Extremities exam: Present: normal inspection, full ROM, normal capillary refill. Absent: tenderness, pedal edema, joint swelling, calf tenderness Back exam: Present: normal inspection Neurological exam: Present: alert, oriented X3, CN II-XII intact Psychiatric exam: Present: normal affect, normal mood Skin exam: Present: warm, dry, intact, normal color. Absent: rash <Dylon iSm - Last Filed: 12/01/23 17:20> Limitations: no limitations General appearance: alert, in no apparent distress Head exam: Present: normocephalic Eye exam: Present: normal appearance Neck exam: Present: normal inspection Respiratory exam: Present: normal lung sounds bilaterally Cardiovascular Exam: Present: regular rate, normal rhythm, normal heart sounds Expanded Peripheral pulses: 2+: Radial (R), Radial (L), Posterior Tibialis (R), Posterior Tibialis (L) GI/Abdominal exam: Present: soft. Absent: tenderness Extremities exam: Present: normal inspection. Absent: pedal edema, calf tenderness Neurological exam: Present: alert Psychiatric exam: Present: normal affect, normal mood Skin exam: Present: normal color <Lauri Sam - Last Filed: 12/02/23 07:37> Course <Dylon Sim - Last Filed: 12/01/23 17:20> Vital Signs 12/01/23 12/01/23 12/01/23 13:22 15:00 16:00 Temperature 98.2 F Pulse Rate 66 60 60 Respiratory 18 Rate Blood Pressure 191/95 176/86 175/88 O2 Sat by Pulse 100 100 100 Oximetry 12/01/23 12/01/23 12/02/23 18:18 21:39 00:46 Temperature 98.1 F Pulse Rate 61 64 58 L Respiratory 16 18 18 Rate Blood Pressure 161/88 163/88 170/86 O2 Sat by Pulse 100 98 99 Oximetry 12/02/23 12/02/23 03:45 06:56 Temperature Pulse Rate 57 L 59 L Respiratory 18 18 Rate Blood Pressure 169/84 178/82 O2 Sat by Pulse 99 99 Oximetry - Reevaluation(s) Reevaluation #1: 12/01/23 17:22 Medical records reviewed (Dylon Sim) Reevaluation #2: 12/01/23 17:22 Patient is still with chest pain (Dylon Sim) Reevaluation #3: 12/01/23 17:22 Patient informed of results and questions answered (Dylon Sim) - Consultations Consultation #1: Spoke with [facility] who agrees to admit this patient (Dylon Sim) EKG Findings - EKG Results: EKG: interpreted by ERMD (Left axis. LVH criteria.), sinus rhythm, normal ST/T <Lauri Sam - Last Filed: 12/02/23 07:37> Medical Decision Making - Lab Data Result diagrams: 12/01/23 14:05 12/01/23 14:05 - Radiology Data Radiology results: report reviewed (Chest x-ray is negative for acute disease), image reviewed <Dylon Sim - Last Filed: 12/01/23 17:20> - Lab Data Result diagrams: 12/01/23 14:05 12/01/23 14:05 <Lauri Sam - Last Filed: 12/02/23 07:37> - Medical Decision Making 58 Male with chest pain history of CAD with recent stent 6 months ago, patient has persistent chest pain or shortness of breath here in the emergency department will admit for cardiology evaluation (Dylon Sim) Was pt. sent in by a medical professional or institution (Dr. PA, LOG PREPARER, urgent care, hospital, or intermediate...) When possible be specific @ -[No] Did you speak to anyone other than the patient for history (EMS, parent, family, police, friend...)? What history was obtained from this source @ -[No] Did you review nursing and triage notes (agree or disagree)? Why? @ -[I reviewed and agree with nursing and triage notes] Were old charts reviewed (outside hosp., previous admission, EMS record, old EKG, old radiological studies, urgent care reports/EKG's, intermediate records)? Report findings @ -Previous admission Differential Diagnosis (chest pain, altered mental status, abdominal pain women, abdominal pain men, vaginal bleeding, weakness, fever, dyspnea, syncope, headache, dizziness, GI bleed, back pain, seizure, CVA, palpatations, mental health, musculoskeletal)? @ -Differential Chest Pain: Stable Angina, Unstable Angina, STEMI, NSTEMI Aortic Dissection, Pneumothorax, Musculoskeletal, Esophageal Spasm GERD, Cholecystitis, Pancreatitis, Zoster, this is not meant to be an all-inclusive list. EKG interpreted by me (3pts min.). @ -[As above] X-rays interpreted by me (1pt min.). @ -X-ray shows no acute CT interpreted by me (1pt min.). @ -[None done] U/S interpreted by me (1pt. min.). @ -[None done] What testing was considered but not performed or refused? (CT, X-rays, U/S, labs)? Why? @ -[None] What meds were considered but not given or refused? Why? @ -[None] Did you discuss the management of the patient with other professionals (professionals i.e. , PA, LOG PREPARER, lab, RT, psych nurse, social media specialist, arranging funeral director, teacher, parachute/combatant diver officer, gearcase assembler)? Give summary @ -[No] Was smoking cessation discussed for >3mins.? @ -[No] Was critical care preformed (if so, how long)? @ -[No] Were there social determinants of health that impacted care today? How? (Homelessness, low income, unemployed, alcoholism, drug addiction, transportation, low edu. Level, literacy, decrease access to med. care, senior living, rehab)? @ -[No] Was there de-escalation of care discussed even if they declined (Discuss DNR or withdrawal of care, Hospice)? DNR status @ -[No] What co-morbidities impacted this encounter? (DM, HTN, Smoking, COPD, CAD, Cancer, CVA, ARF, Chemo, Hep., AIDS, mental health diagnosis, sleep apnea, morbid obesity)? @ -c artery disease (Lauri Sam) - Lab Data Lab Results 12/01/23 12/01/23 12/01/23 Range/Units 14:05 14:05 14:05 WBC 4.5 (3.8-10.6) k/uL RBC 2.97 L (4.30-5.90) m/uL Hgb 9.2 L (13.0-17.5) gm/dL Hct 26.9 L (39.0-53.0) % MCV 90.8 (80.0-100.0) fL MCH 31.0 (25.0-35.0) pg MCHC 34.1 (31.0-37.0) g/dL RDW 14.1 (11.5-15.5) % Plt Count 178 (150-450) k/uL MPV 7.1 Neutrophils % 64 % Lymphocytes % 26 % Monocytes % 7 % Eosinophils % 2 % Basophils % 0 % Neutrophils # 2.9 (1.3-7.7) k/uL Lymphocytes # 1.1 (1.0-4.8) k/uL Monocytes # 0.3 (0-1.0) k/uL Eosinophils # 0.1 (0-0.7) k/uL Basophils # 0.0 (0-0.2) k/uL PT 10.9 (10.0-12.5) sec INR 1.0 (<1.2) APTT 30.0 (22.0-30.0) sec Sodium 135 L (137-145) mmol/L Potassium 4.3 (3.5-5.1) mmol/L Chloride 105 (98-107) mmol/L Carbon Dioxide 26 (22-30) mmol/L Anion Gap 4 mmol/L BUN 37 H (9-20) mg/dL Creatinine 3.16 H (0.66-1.25) mg/dL Est GFR (CKD-EPI)AfAm 24 (>60 ml/min/1.73 sqM) Est GFR (CKD-EPI)NonAf 21 (>60 ml/min/1.73 sqM) Glucose 174 H (74-99) mg/dL Calcium 8.4 (8.4-10.2) mg/dL Magnesium 1.8 (1.6-2.3) mg/dL Total Bilirubin 0.9 (0.2-1.3) mg/dL AST 41 (17-59) U/L ALT 24 (4-49) U/L Alkaline Phosphatase 107 (38-126) U/L Troponin I (0.000-0.034) ng/mL Total Protein 6.5 (6.3-8.2) g/dL Albumin 4.0 (3.5-5.0) g/dL 12/01/23 Range/Units 14:05 WBC (3.8-10.6) k/uL RBC (4.30-5.90) m/uL Hgb (13.0-17.5) gm/dL Hct (39.0-53.0) % MCV (80.0-100.0) fL MCH (25.0-35.0) pg MCHC (31.0-37.0) g/dL RDW (11.5-15.5) % Plt Count (150-450) k/uL MPV Neutrophils % % Lymphocytes % % Monocytes % % Eosinophils % % Basophils % % Neutrophils # (1.3-7.7) k/uL Lymphocytes # (1.0-4.8) k/uL Monocytes # (0-1.0) k/uL Eosinophils # (0-0.7) k/uL Basophils # (0-0.2) k/uL PT (10.0-12.5) sec INR (<1.2) APTT (22.0-30.0) sec Sodium (137-145) mmol/L Potassium (3.5-5.1) mmol/L Chloride (98-107) mmol/L Carbon Dioxide (22-30) mmol/L Anion Gap mmol/L BUN (9-20) mg/dL Creatinine (0.66-1.25) mg/dL Est GFR (CKD-EPI)AfAm (>60 ml/min/1.73 sqM) Est GFR (CKD-EPI)NonAf (>60 ml/min/1.73 sqM) Glucose (74-99) mg/dL Calcium (8.4-10.2) mg/dL Magnesium (1.6-2.3) mg/dL Total Bilirubin (0.2-1.3) mg/dL AST (17-59) U/L ALT (4-49) U/L Alkaline Phosphatase (38-126) U/L Troponin I 0.028 (0.000-0.034) ng/mL Total Protein (6.3-8.2) g/dL Albumin (3.5-5.0) g/dL Disposition Is patient prescribed a controlled substance at d/c from ED?: No Time of Disposition: :00 <Dylon Sim - Last Filed: 12/01/23 17:20> Is patient prescribed a controlled substance at d/c from ED?: No <Lauri Sam - Last Filed: 12/02/23 07:37> Clinical Impression: Hypertensive urgency, Chest pain, Unstable angina Disposition: ADMITTED IP TO THIS HOSP Condition: Fair
[2023-12-01] MEDS: ASPIRIN 81 MG PO STA (14:24)
[2023-12-01] MEDS: NITROGLYCERIN OINT 1 INCH/GM PACKET TOPICAL STA (14:24)
[2023-12-01 14:37] LABS: Basophils % (A) 0 %; Eosinophils # (A) 0.1 k/uL (0-0.7); Eosinophils % (A) 2 %; HCT 26.9 % (39.0-53.0); HGB 9.2 gm/dL (13.0-17.5); Lymphocytes # (A) 1.1 k/uL (1.0-4.8); Lymphocytes % (A) 26 %; MCHC 34.1 g/dL (31.0-37.0); MCV 90.8 fL (80.0-100.0); Mean Platelet Volume 7.1; Monocytes # (A) 0.3 k/uL (0-1.0); Monocytes % (A) 7 %; Neutrophils # (A) 2.9 k/uL (1.3-7.7); Neutrophils % (A) 64 %; Platelet Count 178 k/uL (150-450); RBC 2.97 m/uL (4.30-5.90); RDW 14.1 % (11.5-15.5); WBC 4.5 k/uL (3.8-10.6)
[2023-12-01 14:50] LABS: Prothrombin Time 10.9 sec (10.0-12.5)
[2023-12-01 14:52] LABS: ALT 24 U/L (4-49); African American GFR (CKD) 24 (>60 ml/min/1.73 sqM); Anion Gap 4 mmol/L; Blood Urea Nitrogen 37 mg/dL (9-20); Calcium 8.4 mg/dL (8.4-10.2); Carbon Dioxide 26 mmol/L (22-30); Chloride 105 mmol/L (98-107); Glucose 174 mg/dL (74-99); Non-African American GFR(CKD) 21 (>60 ml/min/1.73 sqM); Sodium 135 mmol/L (137-145); Total Bilirubin 0.9 mg/dL (0.2-1.3)
[2023-12-01 14:58] LABS: AST 41 U/L (17-59); Alkaline Phosphatase 107 U/L (38-126); Magnesium 1.8 mg/dL (1.6-2.3); Potassium 4.3 mmol/L (3.5-5.1); Total Protein 6.5 g/dL (6.3-8.2)
--- NOTE | 2023-12-01 15:21 | XR ---
EXAMINATION TYPE: XR chest 2V DATE OF EXAM: 12/01/2023 COMPARISON: 10/16/2023 HISTORY: Shortness of breath TECHNIQUE: Frontal and lateral views of the chest are obtained. FINDINGS: Scattered senescent parenchymal changes noted. No evidence for infiltrate. No evidence for atelectasi s. Heart size is stable. Mediastinal structures are stable and grossly unremarkable. No evidence for hilar prominence. Degenerative changes dorsal spine. IMPRESSION: 1. No evidence for acute pulmonary disease.
[2023-12-01] MEDS ORDERED: NALOXONE 0.4 MG/ML 1 ML VIAL IV PRN (17:12)
[2023-12-01] MEDS: SODIUM CHLORIDE 0.9% 1,000 ML IV SCH (18:28)
[2023-12-02] MEDS: KETOROLAC 15 MG/ML 1 ML VIAL IVP STA (03:49)
--- NOTE | 2023-12-02 10:15 | P.CRDCN ---
History of Present Illness Consult date: 12/02/23 Consult reason: chest pain History of present illness: This is a 58-year-old male patient of Dr. MAC Avendaño with past medical history of end-stage renal disease on hemodialysis, CAD with known RCA occlusion, stenting of the circumflex and LAD and last stent of the LAD was performed in April 2023, hypertension, hyperlipidemia, diabetes. We have been asked to evaluate the patient for chest pain. Patient states that he has had mid chest pain for the past 3 days that started on Thursday. Patient also had some shortness of breath with this. No radiation of the pain. Patient is seen today in the emergency center waiting for bed on the observation unit. EKG: Sinus rhythm with no acute ST changes. Chest x-ray: No acute finding Laboratory studies: WBC 4.5, hemoglobin 9.2. Sodium 135, potassium 4.3, BUN 37 creatinine 3.16. Troponin negative x 1. Home cardiac medications: Aspirin 81 mg daily, atorvastatin 80 mg at bedtime, Plavix 75 mg at bedtime, Lasix 80 mg daily, hydralazine 25 mg twice daily, Imdur 60 mg daily, losartan 25 mg daily, Toprol-XL 50 mg daily, Procardia XL 30 mg twice daily, Nitrostat as needed, Ranexa 500 mg every 12 hours. Echocardiogram performed 09/20/2023 reveals EF of 50 to 55%, mild mitral regurgitation, RVSP 26. No pericardial effusion. Lexiscan Cardiolite stress test performed in the office on 02/04/2022 reveals unremarkable by EKG criteria. Mild intensity, mild to moderate size inferior wall fixed defect with mild hypokinesis suggestive of prior VA. No reversible defect to indicate ischemia. EF 45 to 50% by visual inspection. Cardiac catheterization history: 05/05/2023 found normal filling pressures, no gradient. RCA totally occluded, patent circumflex previously stented, mid LAD previously stented patent with proximal 95% LAD calcified lesion and distal one quarter of the LAD diffusely diseased status post shockwave lithotripsy. PCI of the LAD and post PCI IVUS. Distal LAD angioplasty. Review Of Systems: At the time of my exam: CONSTITUTIONAL: Denies fever or chills. HEENT: Denies blurred vision, vision changes, or eye pain. Denies hemoptysis CARDIOVASCULAR: Reports chest pain. Denies orthopnea. Denies PND. Denies palpitations RESPIRATORY: Denies shortness of breath. GASTROINTESTINAL: Denies abdominal pain. Denies nausea or vomiting. HEMATOLOGIC: Denies bleeding disorders. GENITOURINARY: Denies any blood in urine. SKIN: Denies puritis. Denies rash. Physical examination: Gen: This is a 58-year-old male in no acute distress VS: reviewed, blood pressure 178/82, heart rate 59, pulse ox 99% on room air. HEENT: Head is atraumatic, normocephalic. Pupils equal, round. Sclerae is anicteric. NECK: Supple. No JVD. LUNGS: Clear to auscultation. No wheezes or rhonchi. No intercostal retractions. HEART: Regular rate and rhythm. Systolic murmur. ABDOMEN: Soft No tenderness. EXTREMITIES: No pedal edema. No calf tenderness. NEUROLOGICAL: Patient is awake, alert and oriented x3. Assessment: Atypical chest pain, acute coronary syndrome ruled out with negative troponins and normal EKG after 3 days of chest pain History of coronary artery disease with previous stenting End-stage renal disease on hemodialysis Hypertension Hyperlipidemia Diabetes mellitus type 2 Plan: Resume patient's home cardiac medications Obtain 2-D echocardiogram and Doppler study to assess cardiac structure and function If echocardiogram is unremarkable, patient is cleared for discharge from cardiology and may follow-up in the office with Dr. MAC Avendaño in 1 to 2 weeks. Thank you kindly for this consultation. Nurse practitioner note has been reviewed, I agree with documented findings and plan of care. Patient was seen and examined. Past Medical History Past Medical History: Coronary Artery Disease (CAD), Chest Pain / Angina, CVA/TIA, Diabetes Mellitus, Eye Disorder, GERD/Reflux, Hearing Disorder / Deafness, Hyperlipidemia, Hypertension, Myocardial Infarction ([place]), Prostate Disorder, Renal Disease, Rheumatoid Arthritis (RA) Additional Past Medical History / Comment(s): [place] X2 in 2014 and 02/2023., 02 3L/[place]., Hx stroke Apr 2017. , hx tia's ., left side weakness., Migranes., Diabetic neuropathy arms and legs, tremors off and on, circulation problems, uses quad cane and wheelchair., Kidney disease with dialysis TUTHSA. Hx Pancreatitis., Legally blind, some trouble hearing. Enlarged prostate, trouble urinating. , hx of recent uti's., anemia., constipation Last Myocardial Infarction Date:: 02/2023 History of Any Multi-Drug Resistant Organisms: None Reported Past Surgical History: Cholecystectomy, Heart Catheterization, Heart Cathet erization With Stent, Heart Catheterization With Stent, Hernia Repair, Prostate Surgery Additional Past Surgical History / Comment(s): Dialysis Port Placed - 03/14/23, HIATAL HERNIA REPAIR - 01/23/21., states hx 5 heart caths with 5 stents. Past Anesthesia/Blood Transfusion Reactions: No Reported Reaction Additional Past Anesthesia/Blood Transfusion Reaction / Comment(s): . Date of Last Stent Placement:: 05/07/23 Past Psychological History: Anxiety, Depression Smoking Status: Never smoker Past Alcohol Use History: None Reported Past Drug Use History: None Reported - Past Family History Mother Family Medical History: CVA/TIA, Diabetes Mellitus, Hypertension Additional Family Medical History / Comment(s): Parkinson's. Father Family Medical History: CVA/TIA, Diabetes Mellitus, Myocardial Infarction ([place]) Additional Family Medical History / Comment(s): Father of a [place] in his 50s. Medications and Allergies Home Medications Medication Instructions Recorded Confirmed Type Pantoprazole [Protonix] 40 mg PO BID 11/05/17 12/01/23 History Tamsulosin [Flomax] 0.8 mg PO HS 11/05/17 12/01/23 History Citalopram Hydrobromide [CeleXA] 20 mg PO DAILY 12/12/18 12/01/23 History allopurinoL [Zyloprim] 100 mg PO DAILY 04/05/19 12/01/23 History Atorvastatin [Lipitor] 80 mg PO HS 12/30/19 12/01/23 History Isosorbide Mononitrate ER [Imdur] 60 mg PO DAILY 12/30/19 12/01/23 History Citalopram Hydrobromide [CeleXA] 40 mg PO DAILY 06/29/20 12/01/23 History Loratadine [Claritin] 10 mg PO DAILY 01/21/21 12/01/23 History Docusate [Colace] 100 mg PO DAILY 01/30/23 12/01/23 History Aspirin [[place] Aspirin EC] 81 mg PO DAILY #30 tab 03/18/23 12/01/23 Rx Clopidogrel [Plavix] 75 mg PO HS #30 tab 03/18/23 12/01/23 Rx Insulin Detemir (Levemir) [Levemir] 10 unit SQ HS #10 ml 03/18/23 12/01/23 Rx Folic Acid/Vit B Complex and C 0.8 mg PO DAILY 05/05/23 12/01/23 History [Nephro-Cirilo Tablet] INSULIN ASPART (NovoLOG) [NovoLOG See Protocol SQ AC-TID 05/05/23 12/01/23 History (formulary)] NIFEdipine XL [Procardia XL] 30 mg PO BID 06/29/23 12/01/23 History Losartan [Cozaar] 25 mg PO DAILY 09/19/23 12/01/23 History Metoprolol Succinate (ER) [Toprol 50 mg PO DAILY 09/19/23 12/01/23 History XL] Acetaminophen Tab [Tylenol] 650 mg PO Q6HR PRN tab 09/21/23 12/01/23 Rx Ranolazine [Ranexa] 500 mg PO Q12HR #60 tab 09/21/23 12/01/23 Rx Furosemide [Lasix] 80 mg PO DAILY 10/16/23 12/01/23 History Nitroglycerin Sl Tabs [Nitrostat] 0.4 mg SL Q5M PRN 10/16/23 12/01/23 History hydrALAZINE HCL [Apresoline] 25 mg PO BID 10/16/23 12/01/23 History Allergies Allergy/AdvReac Type Severity Reaction Status Date / Time hydromorphone AdvReac Confusion Verified 12/01/23 14:07 Iodinated Contrast Media AdvReac Nausea & Verified 12/01/23 14:07 [Iodinated Contrast- Oral Vomiting and IV Dye] morphine AdvReac Vomiting Verified 12/01/23 14:07 sucralfate AdvReac Nausea & Verified 12/01/23 14:07 Vomiting Physical Exam Vitals: Vital Signs Temp Pulse Resp BP Pulse Ox 12/02/23 06:56 59 L 18 178/82 99 12/02/23 03:45 57 L 18 169/84 99 12/02/23 00:46 58 L 18 170/86 99 12/01/23 21:39 64 18 163/88 98 12/01/23 18:18 98.1 F 61 16 161/88 100 12/01/23 16:00 60 175/88 100 12/01/23 15:00 60 176/86 100 12/01/23 13:22 98.2 F 66 18 191/95 100 Results 12/01/23 14:05 12/01/23 14:05 Cardiac Enzymes 12/01/23 12/01/23 Range/Units 14:05 14:05 AST 41 (17-59) U/L Troponin I 0.028 (0.000-0.034) ng/mL Coagulation 12/01/23 Range/Units 14:05 PT 10.9 (10.0-12.5) sec APTT 30.0 (22.0-30.0) sec CBC 12/01/23 Range/Units 14:05 WBC 4.5 (3.8-10.6) k/uL RBC 2.97 L (4.30-5.90) m/uL Hgb 9.2 L (13.0-17.5) gm/dL Hct 26.9 L (39.0-53.0) % Plt Count 178 (150-450) k/uL Comprehensive Metabolic Panel 12/01/23 Range/Units 14:05 Sodium 135 L (137-145) mmol/L Potassium 4.3 (3.5-5.1) mmol/L Chloride 105 (98-107) mmol/L Carbon Dioxide 26 (22-30) mmol/L BUN 37 H (9-20) mg/dL Creatinine 3.16 H (0.66-1.25) mg/dL Glucose 174 H (74-99) mg/dL Calcium 8.4 (8.4-10.2) mg/dL AST 41 (17-59) U/L ALT 24 (4-49) U/L Alkaline Phosphatase 107 (38-126) U/L Total Protein 6.5 (6.3-8.2) g/dL Albumin 4.0 (3.5-5.0) g/dL Current Medications Generic Name Dose Route Start Last Admin Trade Name Freq PRN Reason Stop Dose Admin Sodium Chloride 1,000 mls @ 20 mls/hr 12/01/23 17:30 12/01/23 18:28 Saline 0.9% IV 20 mls/hr .Q24H JAD Administration Naloxone HCl 0.2 mg 12/01/23 17:12 Naloxone 0.4 Mg/Ml 1 Ml Vial IV Q2M PRN Opioid Reversal Ondansetron HCl 4 mg 12/01/23 17:18 Ondansetron 4 Mg/2 Ml Vial IVP Q8HR PRN Nausea And Vomiting 12/01/23 14:05 12/01/23 14:05
[2023-12-02 10:26] LABS: Basophils # (A) 0.03 X 10*3/uL (0.00-0.10); Basophils % (A) 0.5 %; Eosinophils # (A) 0.14 X 10*3/uL (0.04-0.35); Eosinophils % (A) 2.4 %; HCT 25.5 % (39.6-50.0); HGB 8.6 g/dL (13.0-17.0); Lymphocytes # (A) 1.64 X 10*3/uL (0.90-5.00); Lymphocytes % (A) 28.2 %; MCH 31.4 pg (27.0-32.0); MCHC 33.7 g/dL (32.0-37.0); MCV 93.1 FL (80.0-97.0); Mean Platelet Volume 9.1 FL (9.5-12.2); Monocytes # (A) 0.46 X 10*3/uL (0.20-1.00); Monocytes % (A) 7.9 %; NRBC Per 100 WBC 0 X 10*3/uL (0.00-0.01); Neutrophils # (A) 3.52 X 10*3/uL (1.80-7.70); Neutrophils % (A) 60.5 %; Platelet Count 138 X 10*3/uL (140-440); RBC 2.74 X 10*6/uL (4.40-5.60); RDW 13.7 % (11.5-14.5); WBC 5.82 X 10*3/uL (4.50-10.00)
[2023-12-02 10:35] LABS: Appearance,Urine Clear (Clear); Bilirubin,Urine Negative (Negative); Blood,Urine Negative (Negative); Color,Urine Colorless; Glucose,Urine (UA) 1+ (Negative); Hyaline Casts,Urine 1 /lpf (0-2); Ketones,Urine Negative (Negative); Leukocyte Esterase,Urine Negative (Negative); Mucus,Urine Rare /hpf; Nitrite,Urine Negative (Negative); Protein,Urine 2+ (Negative); RBC,Urine 1 /hpf (0-5); Specific Gravity,Urine 1.013 (1.001-1.035); Urobilinogen,Urine <2.0 mg/dL (<2.0); WBC,Urine 1 /hpf (0-5)
[2023-12-02 10:39] LABS: BUN/Creat Ratio 9.78 Ratio (12.00-20.00); Blood Urea Nitrogen 40.1 mg/dL (9.0-27.0); Carbon Dioxide 23.3 mmol/L (21.6-31.8); Chloride 103 mmol/L (96-109); Glucose 206 mg/dL (70-110); Phosphorus 4.9 mg/dL (2.4-5.1); Potassium 3.6 mmol/L (3.5-5.5); Sodium 141 mmol/L (135-145)
[2023-12-02 10:40] LABS: ALT 25 U/L (10-49); AST 21 U/L (14-35); Albumin 3.8 g/dL (3.8-4.9); Alkaline Phosphatase 108 U/L (41-126); Calcium 7.8 mg/dL (8.7-10.3); Globulin 1.9 g/dL (1.6-3.3); Total Bilirubin 0.2 mg/dL (0.3-1.2); Total Protein 5.7 g/dL (6.2-8.2)
[2023-12-02] MEDS: hydrALAZINE HCL 25 MG TAB PO SCH (10:48)
[2023-12-02] MEDS: RANOLAZINE 500 MG TAB.ER.12H PO SCH (10:48)
[2023-12-02] MEDS: LOSARTAN 25 MG TAB PO SCH (10:48)
[2023-12-02] MEDS: ISOSORBIDE MONONITRATE ER 60 MG TAB.ER.24H PO SCH (10:48)
[2023-12-02] MEDS: ASPIRIN 81 MG PO SCH (10:48)
[2023-12-02] MEDS: METOPROLOL SUCCINATE (ER) 50 MG TAB.ER.24H PO SCH (10:48)
[2023-12-02] MEDS ORDERED: DEXTROSE 50% SYRINGE 50 ML IVP PRN ×2 (10:50)
[2023-12-02] MEDS: allopurinoL 100 MG TAB PO SCH (11:22)
[2023-12-02] MEDS: NIFEdipine XL 30 MG TAB.ER.24 PO SCH (11:23)
[2023-12-02] MEDS: DOCUSATE 100 MG CAP PO SCH (11:23)
[2023-12-02 12:48] LABS: Glucose,Whole Blood 240 mg/dL (70-110)
[2023-12-02] MEDS: INSULIN ASPART (NovoLOG) 100 UNIT/ML VIAL SQ SCH (12:58)
--- NOTE | 2023-12-02 14:16 | P.HPIM ---
History of Present Illness H&P Date: 12/02/23 Chief Complaint: Chest pain Patient is a 58-year-old male with a past medical history of ESRD on hemodialysis TTS, coronary artery disease with prior stent placement, hyperten elsa, diabetes type 2, history of CVA/TIA with some left-sided weakness, history of WI, rheumatoid arthritis, hearing disorder/deafness. Patient uses quad cane and wheelchair for ambulation. Patient is also legally blind. Also has history of anxiety/depression. No prior history of smoking. Patient states that she has been having mid sternal chest pain for the past 2 to 3 days. Patient states that he fell last Thursday towards his right side. Patient states that his legs gave way and fell on the right side. He has been having chest discomfort/pain since then. Denies any fever or chills. No cough or sputum production. No nausea vomiting abdominal pain or diarrhea. Chest x-ray showed no evidence for acute pulmonary process. EKG showed sinus rhythm with a borderline left axis deviation. Laboratory data showed WBC 4.5 hemoglobin 9.1 platelets 178 Sodium 135 potassium 4.3 chloride 105 bicarb is 26 BUN 37 creatinine 3.16 and blood sugar 174, magnesium 1.8 Liver enzymes are elevated. Troponin 0.028 Urinalysis is negative for infection. Review of Systems Constitutional: Patient denies any fever or chills . No generalized weakness or weight loss. Abdomen: Patient denied nausea vomiting and diarrhea and abdominal pain. Cardiovascular: Patient does have midsternal chest pain. No short of breath no palpitations. Respiratory: patient denied any cough or sputum production. No shortness of breath Neurologic: Patient denied any numbness or tingling. no headache. Musculoskeletal: Patient denies any complaints of joint swelling or deformity. Skin: Negative Psychiatric: Negative Endocrine: No heat or cold intolerance. No recent weight gain. Genitourinary: No dysuria or hematuria. All other 14 point ROS negative except the above Past Medical History Past Medical History: Coronary Artery Disease (CAD), Chest Pain / Angina, CVA/TIA, Diabetes Mellitus, Eye Disorder, GERD/Reflux, Hearing Disorder / Deafness, Hyperlipidemia, Hypertension, Myocardial Infarction ([place]), Prostate Disorder, Renal Disease, Rheumatoid Arthritis (RA) Additional Past Medical History / Comment(s): WI X2 in 2014 and 02/2023., 02 3L/[place]., Hx stroke Apr 2017. , hx tia's ., left side weakness., Migranes., Diab etic neuropathy arms and legs, tremors off and on, circulation problems, uses quad cane and wheelchair., Kidney disease with dialysis TUTHSA. Hx Pancreatitis., Legally blind, some trouble hearing. Enlarged prostate, trouble urinating. , hx of recent uti's., anemia., constipation Last Myocardial Infarction Date:: 02/2023 History of Any Multi-Drug Resistant Organisms: None Reported Past Surgical History: Cholecystectomy, Heart Catheterization, Heart Catheterization With Stent, Heart Catheterization With Stent, Hernia Repair, Prostate Surgery Additional Past Surgical History / Comment(s): Dialysis Port Placed - 03/14/23, HIATAL HERNIA REPAIR - 01/23/21., states hx 5 heart caths with 5 stents. Past Anesthesia/Blood Transfusion Reactions: No Reported Reaction Additional Past Anesthesia/Blood Transfusion Reaction / Comment(s): . Date of Last Stent Placement:: 05/07/23 Past Psychological History: Anxiety, Depression Smoking Status: Never smoker Past Alcohol Use History: None Reported Past Drug Use History: None Reported - Past Family History Mother Family Medical History: CVA/TIA, Diabetes Mellitus, Hypertension Additional Family Medical History / Comment(s): Parkinson's. Father Family Medical History: CVA/TIA, Diabetes Mellitus, Myocardial Infarction ([place]) Additional Family Medical History / Comment(s): Father of a WI in his 50s. Medications and Allergies Home Medications Medication Instructions Recorded Confirmed Type Pantoprazole [Protonix] 40 mg PO BID 11/05/17 12/01/23 History Tamsulosin [Flomax] 0.8 mg PO 11/05/17 12/01/23 History Citalopram Hydrobromide [CeleXA] 20 mg PO DAILY 12/12/18 12/01/23 History allopurinoL [Zyloprim] 100 mg PO DAILY 04/05/19 12/01/23 History Atorvastatin [Lipitor] 80 mg PO 12/30/19 12/01/23 History Isosorbide Mononitrate ER [Imdur] 60 mg PO DAILY 12/30/19 12/01/23 History Citalopram Hydrobromide [CeleXA] 40 mg PO DAILY 06/29/20 12/01/23 History Loratadine [Claritin] 10 mg PO DAILY 01/21/21 12/01/23 History Docusate [Colace] 100 mg PO DAILY 01/30/23 12/01/23 History Aspirin [[place] Aspirin EC] 81 mg PO DAILY #30 tab 03/18/23 12/01/23 Rx Clopidogrel [Plavix] 75 mg PO HS #30 tab 03/18/23 12/01/23 Rx Insulin Detemir (Levemir) [Levemir] 10 unit SQ HS #10 ml 03/18/23 12/01/23 Rx Folic Acid/Vit B Complex and C 0.8 mg PO DAILY 05/05/23 12/01/23 History [Nephro-Cirilo Tablet] INSULIN ASPART (NovoLOG) [NovoLOG See Protocol SQ AC-TID 05/05/23 12/01/23 History (formulary)] NIFEdipine XL [Procardia XL] 30 mg PO BID 06/29/23 12/01/23 History Losartan [Cozaar] 25 mg PO DAILY 09/19/23 12/01/23 History Metoprolol Succinate (ER) [Toprol 50 mg PO DAILY 09/19/23 12/01/23 History XL] Acetaminophen Tab [Tylenol] 650 mg PO Q6HR PRN tab 09/21/23 12/01/23 Rx Ranolazine [Ranexa] 500 mg PO Q12HR #60 tab 09/21/23 12/01/23 Rx Furosemide [Lasix] 80 mg PO DAILY 10/16/23 12/01/23 History Nitroglycerin Sl Tabs [Nitrostat] 0.4 mg SL Q5M PRN 10/16/23 12/01/23 History hydrALAZINE HCL [Apresoline] 25 mg PO BID 10/16/23 12/01/23 History Allergies Allergy/AdvReac Type Severity Reaction Status Date / Time hydromorphone AdvReac Confusion Verified 12/01/23 14:07 Iodinated Contrast Media AdvReac Nausea & Verified 12/01/23 14:07 [Iodinated Contrast- Oral Vomiting and IV Dye] morphine AdvReac Vomiting Verified 12/01/23 14:07 sucralfate AdvReac Nausea & Verified 12/01/23 14:07 Vomiting Physical Exam Vitals: Vital Signs Temp Pulse Resp BP Pulse Ox 12/02/23 06:56 59 L 18 178/82 99 12/02/23 03:45 57 L 18 169/84 99 12/02/23 00:46 58 L 18 170/86 99 12/01/23 21:39 64 18 163/88 98 12/01/23 18:18 98.1 F 61 16 161/88 100 12/01/23 16:00 60 175/88 100 12/01/23 15:00 60 176/86 100 12/01/23 13:22 98.2 F 66 18 191/95 100 PHYSICAL EXAMINATION: Patient is lying in the bed comfortably, no acute distress, awake alert and oriented.. HEENT: Normocephalic. Neck is supple. Pupils reactive. Nostrils clear. Oral cavity is moist. Neck reveals no JVD, carotid bruits, or thyromegaly. CHEST EXAMINATION: Trachea is central. Symmetrical expansion. Midsternal chest pain worsens with deep palpation. Bibasilar diminished sounds otherwise lung ricks clear to auscultation and percussion. CARDIAC: Normal S1, S2 with no gallops. No murmurs ABDOMEN: Soft. Bowel sounds normal. No organomegaly. No abdominal bruits. Extremities: reveal no edema. No clubbing or cyanosis Neurologically awake, alert, oriented x3 patient does have left-sided residual weakness. Able to move all extremities while in bed. Skin: No rash or skin lesions. Psychiatric: Coperative. Nonsuicidal Musculoskeletal: No joint swelling or deformity. Normal range of motion. Results CBC & Chem 7: 12/02/23 06:42 12/02/23 06:42 Labs: Abnormal Lab Results - Last 24 Hours (Table) 12/01/23 12/01/23 12/02/23 Range/Units 14:05 14:05 02:00 RBC 2.97 L (4.30-5.90) m/uL Hgb 9.2 L (13.0-17.5) gm/dL Hct 26.9 L (39.0-53.0) % Plt Count (140-440) X 10*3/uL MPV (9.5-12.2) FL Sodium 135 L (137-145) mmol/L Anion Gap (4.00-12.00) mmol/L BUN 37 H (9-20) mg/dL Creatinine 3.16 H (0.66-1.25) mg/dL Est GFR (CKD-EPI) (>=60) BUN/Creatinine Ratio (12.00-20.00) Ratio Glucose 174 H (74-99) mg/dL Calcium (8.7-10.3) mg/dL Total Bilirubin (0.3-1.2) mg/dL Total Protein (6.2-8.2) g/dL Urine Protein 2+ H (Negative) Urine Glucose (UA) 1+ H (Negative) Urine Mucus Rare H (None) /hpf 12/02/23 12/02/23 Range/Units 06:42 06:42 RBC 2.74 L (4.30-5.90) m/uL Hgb 8.6 L (13.0-17.5) gm/dL Hct 25.5 L (39.0-53.0) % Plt Count 138 L (140-440) X 10*3/uL MPV 9.1 L (9.5-12.2) FL Sodium (137-145) mmol/L Anion Gap 14.70 H (4.00-12.00) mmol/L BUN 40.1 H (9-20) mg/dL Creatinine 4.1 H (0.66-1.25) mg/dL Est GFR (CKD-EPI) 16 L (>=60) BUN/Creatinine Ratio 9.78 L (12.00-20.00) Ratio Glucose 206 H (74-99) mg/dL Calcium 7.8 L (8.7-10.3) mg/dL Total Bilirubin 0.2 L (0.3-1.2) mg/dL Total Protein 5.7 L (6.2-8.2) g/dL Urine Protein (Negative) Urine Glucose (UA) (Negative) Urine Mucus (None) /hpf Thrombosis Risk Factor Assmnt - DVT/VTE Prophylaxis DVT/VTE Prophylaxis: Pharmacologic Prophylaxis ordered Assessment and Plan Assessment: Chest pain atypical. Rule out ACS. Likely musculoskeletal status post fall 3 days ago. ESRD on hemodialysis TTS Uncontrolled hypertension with blood pressure 190s on admission. History of CVA with left-sided weakness. Medical debility patient uses quad cane and wheelchair at home. Normocytic anemia/anemia of chronic disease GERD Legally blind, in with/deafness Diabetes type 2 with hyperglycemia uncontrolled History of WI BPH status post surgery Parotiditis History of peripheral vascular disease Migraine headaches Anxiety/depression DVT prophylaxis with heparin subcu Plan: Patient will be continued on telemonitoring. Serial EKG and troponin x 3. Started back on blood pressure medications and titrate dose as needed. Continue with pain management and continue with home medications. Cardiology was consulted and recommended 2D echocardiogram. Hemodialysis as per schedule. Nephrology will be consulted. Continue with insulin sliding scale and PPI for GI prophylaxis and heparin subcu for DVT prophylaxis. Continue to follow closely. Time with Patient: Greater than 30
[2023-12-02] MEDS: NITROGLYCERIN SL TABS 0.4 MG TAB SUBLINGUAL PRN (14:18)
[2023-12-02 17:58] LABS: Glucose,Whole Blood 147 mg/dL (70-110)
[2023-12-02 20:17] LABS: Glucose,Whole Blood 252 mg/dL (70-110)
[2023-12-02] MEDS: PANTOPRAZOLE 40 MG TABLET PO SCH (21:17)
[2023-12-02] MEDS: TAMSULOSIN 0.4 MG CAP.ER.24H PO SCH (21:17)
[2023-12-02] MEDS: ATORVASTATIN 80 MG TAB PO SCH (21:18)
[2023-12-02] MEDS: CLOPIDOGREL 75 MG TAB PO SCH (21:18)
[2023-12-02] MEDS: HEPARIN SODIUM,PORCINE 5,000 UNIT/ML 1 ML VIAL SQ SCH (21:19)
[2023-12-02] MEDS: INSULIN DETEMIR (LEVEMIR) 100 UNIT/ML SYR SQ SCH (23:14)
[2023-12-03] MEDS: ACETAMINOPHEN TAB 325 MG TAB PO PRN (00:02)
[2023-12-03 05:56] LABS: Glucose,Whole Blood 125 mg/dL (70-110)
[2023-12-03 08:41] LABS: Basophils # (A) 0.03 X 10*3/uL (0.00-0.10); Basophils % (A) 0.5 %; Eosinophils # (A) 0.15 X 10*3/uL (0.04-0.35); Eosinophils % (A) 2.5 %; HCT 25.9 % (39.6-50.0); HGB 8.6 g/dL (13.0-17.0); Lymphocytes # (A) 1.59 X 10*3/uL (0.90-5.00); Lymphocytes % (A) 26.8 %; MCH 30.9 pg (27.0-32.0); MCHC 33.2 g/dL (32.0-37.0); MCV 93.2 FL (80.0-97.0); Monocytes # (A) 0.44 X 10*3/uL (0.20-1.00); Monocytes % (A) 7.4 %; NRBC Per 100 WBC 0 X 10*3/uL (0.00-0.01); Neutrophils # (A) 3.71 X 10*3/uL (1.80-7.70); Neutrophils % (A) 62.5 %; Platelet Count 125 X 10*3/uL (140-440); RBC 2.78 X 10*6/uL (4.40-5.60); RDW 13.2 % (11.5-14.5); WBC 5.94 X 10*3/uL (4.50-10.00)
[2023-12-03 09:03] LABS: BUN/Creat Ratio 10.07 Ratio (12.00-20.00); Blood Urea Nitrogen 44.3 mg/dL (9.0-27.0); Calcium 7.8 mg/dL (8.7-10.3); Carbon Dioxide 21.2 mmol/L (21.6-31.8); Chloride 103 mmol/L (96-109); Glucose 123 mg/dL (70-110); Potassium 3.8 mmol/L (3.5-5.5); Sodium 137 mmol/L (135-145)
[2023-12-03] MEDS: LORATADINE 10 MG TAB PO SCH (09:15)
[2023-12-03] MEDS: FUROSEMIDE 80 MG TAB PO SCH (09:20)
[2023-12-03 12:34] LABS: Glucose,Whole Blood 196 mg/dL (70-110)
--- NOTE | 2023-12-03 13:29 | CA ---
Transthoracic Echo Report Name: Kashmir Tinajero Age: 58 Gender: M : 1965 Exam Date: 12/03/2023 10:02 Exam Location: [facility] Ht (in): 69 Wt (lb): 173 Ordering Physician: Cee Hughes Attending/Referring Phys: [id number], Saul Core Machine Tender Martha Hernandez RDCS Procedure CPT: Indications: LVF Cardiac Hx: Technical Quality: Fair Contrast 1: Total Dose (mL): Contrast 2: Total Dose (mL): MEASUREMENTS (Male / Female) Normal Values 2D ECHO LV Diastolic Diameter PLAX 4.7 cm 4.2 - 5.9 / 3.9 - 5.3 cm LV Systolic Diameter PLAX 2.8 cm IVS Diastolic Thickness 1.5 cm 0.6 - 1.0 / 0.6 - 0.9 cm LVPW Diastolic Thickness 1.6 cm 0.6 - 1.0 / 0.6 - 0.9 cm LV Relative Wall Thickness 0.7 LA Volume 88.6 cm??? 18 - 58 / 22 - 52 cm??? LA Volume Index 45.1 cm???/m??? 16 - 28 cm???/m??? M-MODE Aortic Root Diameter MM 3.4 cm LA Systolic Diameter MM 4.9 cm LA Ao Ratio MM 1.5 DOPPLER AV Peak Velocity 224.4 cm/s AV Peak Gradient 20.1 mmHg AV Mean Gradient 11.5 mmHg AV Velocity Time Integral 58.8 cm LVOT Peak Velocity 116.7 cm/s LVOT Peak Gradient 5.4 mmHg LVOT Velocity Time Integral 26.3 cm Mitral E Point Velocity 74.7 cm/s Mitral A Point Velocity 80.6 cm/s Mitral E to A Ratio 0.9 MV Deceleration Time 296.9 ms TR Peak Velocity 232.8 cm/s TR Peak Gradient 21.7 mmHg FINDINGS Left Ventricle Moderately increased left ventricular wall thickness. Left ventricular cavity size normal. Normal left ventricular systolic function with no obvious regional wall motion abnormalities. Left ventricular ejection fraction is estimated at 55-60 %. Grade 1 diastolic dysfunction. Right Ventricle Normal right ventricular size and function. Right ventricular systolic pressure within normal limits. Right Atrium Normal right atrial size. Left Atrium Severely increased left atrial volume. Mildly increased left atrial area. Mitral Valve Structurally normal mitral valve. Mild mitral annular calcification. Moderate mitral regurgitation. Aortic Valve Trileaflet aortic valve. Mild aortic stenosis with a peak gradient of 20 mmHg and a mean gradient of 12 mmHg. No aortic regurgitation. Tricuspid Valve Structurally normal tricuspid valve. Mild tricuspid regurgitation. Pulmonic Valve Structurally normal pulmonic valve. Trace pulmonic regurgitation. Pericardium No pericardial effusion. Aorta Normal size aortic root and proximal ascending aorta. CONCLUSIONS LVH with preserved systolic function mild aortic stenosis Previewed by: Dr. Hipolito Salmon MD (Electronically Signed) Final Date: 03 December 2023 13:28
--- NOTE | 2023-12-03 14:38 | P.NPCON ---
History of Present Illness - Reason for Consult end stage renal disease - History of Present Illness patient is a 58-year-old male with end-stage renal disease on hemodialysis on a Thursday schedule. Patient is admitted to the hospital with complaints of chest pain which occurred during his treatment on Thursday. Troponin is not elevated. Patient has been evaluated by cardiology. He is scheduled for hemodialysis today. Patient stated he had chest pain earlier today but it has resolved now. no complaints of shortness of breath, nausea, vomiting or abdominal pain. No history of fever. Review of Systems as per HPI Past Medical History Past Medical History: Coronary Artery Disease (CAD), Chest Pain / Angina, CVA/TI A, Diabetes Mellitus, Eye Disorder, GERD/Reflux, Hearing Disorder / Deafness, Hyperlipidemia, Hypertension, Myocardial Infarction ([place]), Prostate Disorder, Renal Disease, Rheumatoid Arthritis (RA) Additional Past Medical History / Comment(s): [place] X2 in 2014 and 02/2023., 02 3L/ [place]., Hx stroke Apr 2017. , hx tia's ., left side weakness., Migranes., Diabetic neuropathy arms and legs, tremors off and on, circulation problems, uses quad cane and wheelchair., Kidney disease with dialysis TUTHSA. Hx Pancreatitis., Legally blind, some trouble hearing. Enlarged prostate, trouble urinating. , hx of recent uti's., anemia., constipation Last Myocardial Infarction Date:: 02/2023 History of Any Multi-Drug Resistant Organisms: None Reported Past Surgical History: Cholecystectomy, Heart Catheterization, Heart Catheterization With Stent, Heart Catheterization With Stent, Hernia Repair, Prostate Surgery Additional Past Surgical History / Comment(s): Dialysis Port Placed - 03/14/23, HIATAL HERNIA REPAIR - 01/23/21., states hx 5 heart caths with 5 stents. Past Anesthesia/Blood Transfusion Reactions: No Reported Reaction Additional Past Anesthesia/Blood Transfusion Reaction / Comment(s): . Date of Last Stent Placement:: 05/07/23 Smoking Status: Never smoker - Past Family History Mother Family Medical History: CVA/TIA, Diabetes Mellitus, Hypertension Additional Family Medical History / Comment(s): Parkinson's. Father Family Medical History: CVA/TIA, Diabetes Mellitus, Myocardial Infarction ([place]) Additional Family Medical History / Comment(s): Father of a ME in his 50s. Medications and Allergies Home Medications Medication Instructions Recorded Confirmed Type Pantoprazole [Protonix] 40 mg PO BID 11/05/17 12/01/23 History Tamsulosin [Flomax] 0.8 mg PO HS 11/05/17 12/01/23 History Citalopram Hydrobromide [CeleXA] 20 mg PO DAILY 12/12/18 12/01/23 History allopurinoL [Zyloprim] 100 mg PO DAILY 04/05/19 12/01/23 History Atorvastatin [Lipitor] 80 mg PO HS 12/30/19 12/01/23 History Isosorbide Mononitrate ER [Imdur] 60 mg PO DAILY 12/30/19 12/01/23 History Citalopram Hydrobromide [CeleXA] 40 mg PO DAILY 06/29/20 12/01/23 History Loratadine [Claritin] 10 mg PO DAILY 01/21/21 12/01/23 History Docusate [Colace] 100 mg PO DAILY 01/30/23 12/01/23 History Aspirin [[place] Aspirin EC] 81 mg PO DAILY #30 tab 03/18/23 12/01/23 Rx Clopidogrel [Plavix] 75 mg PO HS #30 tab 03/18/23 12/01/23 Rx Insulin Detemir (Levemir) [Levemir] 10 unit SQ HS #10 ml 03/18/23 12/01/23 Rx Folic Acid/Vit B Complex and C 0.8 mg PO DAILY 05/05/23 12/01/23 History [Nephro-Cirilo Tablet] INSULIN ASPART (NovoLOG) [NovoLOG See Protocol SQ AC-TID 05/05/23 12/01/23 History (formulary)] NIFEdipine XL [Procardia XL] 30 mg PO BID 06/29/23 12/01/23 History Losartan [Cozaar] 25 mg PO DAILY 09/19/23 12/01/23 History Metoprolol Succinate (ER) [Toprol 50 mg PO DAILY 09/19/23 12/01/23 History XL] Acetaminophen Tab [Tylenol] 650 mg PO Q6HR PRN tab 09/21/23 12/01/23 Rx Ranolazine [Ranexa] 500 mg PO Q12HR #60 tab 09/21/23 12/01/23 Rx Furosemide [Lasix] 80 mg PO DAILY 10/16/23 12/01/23 History Nitroglycerin Sl Tabs [Nitrostat] 0.4 mg SL Q5M PRN 10/16/23 12/01/23 History hydrALAZINE HCL [Apresoline] 25 mg PO BID 10/16/23 12/01/23 History Allergies Allergy/AdvReac Type Severity Reaction Status Date / Time hydromorphone AdvReac Confusion Verified 12/01/23 14:07 Iodinated Contrast Media AdvReac Nausea & Verified 12/01/23 14:07 [Iodinated Contrast- Oral Vomiting and IV Dye] morphine AdvReac Vomiting Verified 12/01/23 14:07 sucralfate AdvReac Nausea & Verified 12/01/23 14:07 Vomiting Physical Exam Vitals: Vital Signs Temp Pulse Pulse Resp BP BP Pulse Ox 12/03/23 14:31 97.8 F 61 20 157/69 100 12/03/23 09:15 62 18 12/03/23 07:00 97.4 F L 57 L 18 118/61 99 12/03/23 02:34 97.5 F L 60 18 112/65 99 12/03/23 02:00 18 12/02/23 20:25 98.7 F 63 18 138/70 96 12/02/23 17:51 57 L 18 142/74 98 Intake and Output 12/02/23 12/03/23 12/03/23 22:59 06:59 14:59 Intake Total 120 Output Total 175 250 Balance -175 -250 120 Intake: Oral 120 Output: Urine 175 250 Other: Voiding Method Toilet Toilet # Voids 1 Weight 78.471 kg patient is awake, comfortable, no acute distress. Examination of the heart S1 and S2 Examination of the lungs bilateral breath sounds are heard Abdomen is soft nontender Examination of lower extremities shows no significant edema. FITTER MACHINIST exam grossly intact Results - Lab Results Most recent lab results Calcium 7.8 mg/dL (8.7-10.3) L 12/03/23 05:56 Phosphorus 4.9 mg/dL (2.4-5.1) 12/02/23 06:42 Magnesium 2.0 mg/dL (1.5-2.4) 12/02/23 06:42 12/03/23 05:56 12/03/23 05:56 Assessment and Plan Assessment: 1. End-stage renal disease on hemodialysis on a Thursday schedule. 2. Chest pains being followed by cardiology. Atypical. Troponin level is not elevated. 3. CK D mineral bone disorder 4. coronary artery disease with coronary artery stenting in April 2023. Plan: hemodialysis today with UF of 1-2 L. Resume home medications. Next Thank you for the consultation. We will continue to follow the patient with you during his hospitalization.
[2023-12-03 17:22] LABS: Glucose,Whole Blood 190 mg/dL (70-110)
[2023-12-03 19:17] VITALS: PULSE 60; RESP 16
[2023-12-03 22:21] LABS: Glucose,Whole Blood 135 mg/dL (70-110)
[2023-12-03] MEDS: ONDANSETRON 4 MG/2 ML VIAL IVP PRN (22:34)
[2023-12-03 22:45] VITALS: BP 171/75; TEMP 98
== END 2023-12-04 00:06 | disposition home or self-care (01) ==
LOC: EC 13:19 → 6NMEDSUR 17:20
PROVIDERS: ADMIT Hospitalist; ATTEND Hospitalist
DX: R07.89 Other chest pain (principal); I25.10 Atherosclerotic heart disease of native coronary artery without angina pectoris; I12.0 Hypertensive chronic kidney disease with stage 5 chronic kidney disease or end stage renal disease; N18.6 End stage renal disease; E11.22 Type 2 diabetes mellitus with diabetic chronic kidney disease; K21.9 Gastro-esophageal reflux disease without esophagitis; E78.5 Hyperlipidemia, unspecified; E11.40 Type 2 diabetes mellitus with diabetic neuropathy, unspecified; N40.0 Benign prostatic hyperplasia without lower urinary tract symptoms; F32.A Depression, unspecified; F41.9 Anxiety disorder, unspecified; N25.0 Renal osteodystrophy; D63.8 Anemia in other chronic diseases classified elsewhere; H54.8 Legal blindness, as defined in USA; H91.90 Unspecified hearing loss, unspecified ear; E11.65 Type 2 diabetes mellitus with hyperglycemia; K11.20 Sialoadenitis, unspecified; E11.51 Type 2 diabetes mellitus with diabetic peripheral angiopathy without gangrene; G43.909 Migraine, unspecified, not intractable, without status migrainosus; I25.2 Old myocardial infarction; I69.354 Hemiplegia and hemiparesis following cerebral infarction affecting left non-dominant side; Z95.5 Presence of coronary angioplasty implant and graft; Z99.2 Dependence on renal dialysis; Z79.899 Other long term (current) drug therapy; Z79.4 Long term (current) use of insulin; Z79.82 Long term (current) use of aspirin; Z88.5 Allergy status to narcotic agent
CPT/HCPCS: 96372 ×2; 96375; 96361 ×2; 96374; 99285; 36415; 93005; 93306; 80053 ×2; 80048; 83735 ×2; 84100; 84484; 85025 ×3; 85610; 85730; 81001; 87205; 87086; 87077; 87186; 83036; 71046; G0378 ×3; J1644 ×2; J2405; J1885; 90935

== ENCOUNTER 2023-12-08 04:51 | Emergency (ER) | payer MEDICARE ==
[2023-12-08 05:20] LABS: Basophils % (A) 0 %; Eosinophils # (A) 0.1 k/uL (0-0.7); Eosinophils % (A) 2 %; HCT 30.3 % (39.0-53.0); HGB 10.5 gm/dL (13.0-17.5); Lymphocytes # (A) 1.2 k/uL (1.0-4.8); Lymphocytes % (A) 19 %; MCH 31.2 pg (25.0-35.0); MCHC 34.6 g/dL (31.0-37.0); Mean Platelet Volume 7.1; Monocytes # (A) 0.5 k/uL (0-1.0); Monocytes % (A) 7 %; Neutrophils # (A) 4.4 k/uL (1.3-7.7); Neutrophils % (A) 70 %; Platelet Count 182 k/uL (150-450); Poikilocytosis Slight; RBC 3.36 m/uL (4.30-5.90); RDW 13.6 % (11.5-15.5); WBC 6.4 k/uL (3.8-10.6)
[2023-12-08 05:32] LABS: ALT 28 U/L (4-49); AST 29 U/L (17-59); African American GFR (CKD) 18 (>60 ml/min/1.73 sqM); Albumin 4.5 g/dL (3.5-5.0); Alkaline Phosphatase 125 U/L (38-126); Anion Gap 12 mmol/L; Blood Urea Nitrogen 28 mg/dL (9-20); Calcium 8.5 mg/dL (8.4-10.2); Carbon Dioxide 24 mmol/L (22-30); Chloride 103 mmol/L (98-107); Glucose 208 mg/dL (74-99); Non-African American GFR(CKD) 16 (>60 ml/min/1.73 sqM); Potassium 3.3 mmol/L (3.5-5.1); Sodium 139 mmol/L (137-145); Total Bilirubin 0.7 mg/dL (0.2-1.3); Total Protein 6.9 g/dL (6.3-8.2)
[2023-12-08] MEDS: ONDANSETRON 4 MG/2 ML VIAL IVP STA ×2 (06:19→08:23)
[2023-12-08] MEDS: MORPHINE SULFATE 4 MG/ML SYRINGE IVP STA (06:20)
--- NOTE | 2023-12-08 07:09 | ED ---
General Adult HPI <Jeffrey Mcclellan - Last Filed: 12/08/23 08:56> - General Source: patient, RN notes reviewed, old records reviewed Mode of arrival: EMS Limitations: no limitations <Saqib West - Last Filed: 12/08/23 21:20> - General Chief complaint: Nausea/Vomiting/Diarrhea Stated complaint: NVD Time Seen by Provider: 12/08/23 06:05 - History of Present Illness Initial comments: Patient is a 58-year-old male who presents emergency department with nausea, vomiting, diarrhea. Has a history of ESRD on hemodialysis, diabetes, CAD, hypertension, hyperlipidemia. Symptoms have been ongoing for 5 days. Is due to have dialysis later this morning. Denies any chest pain or shortness of breath. Denies any cough. Denies any fevers. Presents for further evaluation at this time. States he has been having multiple episodes of nonbilious nonbloody emesis and diarrhea daily. (Saqib West) - Related Data Home Medications Medication Instructions Recorded Confirmed Pantoprazole [Protonix] 40 mg PO BID 11/05/17 12/01/23 Tamsulosin [Flomax] 0.8 mg PO HS 11/05/17 12/01/23 Citalopram Hydrobromide [CeleXA] 20 mg PO DAILY 12/12/18 12/01/23 allopurinoL [Zyloprim] 100 mg PO DAILY 04/05/19 12/01/23 Atorvastatin [Lipitor] 80 mg PO HS 12/30/19 12/01/23 Isosorbide Mononitrate ER [Imdur] 60 mg PO DAILY 12/30/19 12/01/23 Citalopram Hydrobromide [CeleXA] 40 mg PO DAILY 06/29/20 12/01/23 Loratadine [Claritin] 10 mg PO DAILY 01/21/21 12/01/23 Docusate [Colace] 100 mg PO DAILY 01/30/23 12/01/23 Folic Acid/Vit B Complex and C 0.8 mg PO DAILY 05/05/23 12/01/23 [Nephro-Cirilo Tablet] INSULIN ASPART (NovoLOG) [NovoLOG See Protocol SQ AC-TID 05/05/23 12/01/23 (formulary)] NIFEdipine XL [Procardia XL] 30 mg PO BID 06/29/23 12/01/23 Losartan [Cozaar] 25 mg PO DAILY 09/19/23 12/01/23 Metoprolol Succinate (ER) [Toprol 50 mg PO DAILY 09/19/23 12/01/23 XL] Furosemide [Lasix] 80 mg PO DAILY 10/16/23 12/01/23 Nitroglycerin Sl Tabs [Nitrostat] 0.4 mg SL Q5M PRN 10/16/23 12/01/23 hydrALAZINE HCL [Apresoline] 25 mg PO BID 10/16/23 12/01/23 Previous Rx's Medication Instructions Recorded Aspirin [[place] Aspirin EC] 81 mg PO DAILY #30 tab 03/18/23 Clopidogrel [Plavix] 75 mg PO HS #30 tab 03/18/23 Insulin Detemir (Levemir) [Levemir] 10 unit SQ HS #10 ml 03/18/23 Acetaminophen Tab [Tylenol] 650 mg PO Q6HR PRN tab 09/21/23 Ranolazine [Ranexa] 500 mg PO Q12HR #60 tab 09/21/23 Allergies Allergy/AdvReac Type Severity Reaction Status Date / Time hydromorphone AdvReac Confusion Verified 12/08/23 05:00 Iodinated Contrast Media AdvReac Nausea & Verified 12/08/23 05:00 [Iodinated Contrast- Oral Vomiting and IV Dye] morphine AdvReac Vomiting Verified 12/08/23 05:00 sucralfate AdvReac Nausea & Verified 12/08/23 05:00 Vomiting Review of Systems ROS Other: All systems not noted in ROS Statement are negative. <Jeffrey Mcclellan - Last Filed: 12/08/23 08:56> ROS Other: All systems not noted in ROS Statement are negative. <Saqib West - Last Filed: 12/08/23 21:20> ROS Statement: Those systems with pertinent positive or pertinent negative responses have been documented in the HPI. Review of Systems: CONST: Denies fever EYES: Denies blurry vision ENT: Denies nasal congestion C/V: Denies Chest pain RESP: Denies shortness of breath GI: Endorses abdominal pain : Denies dysuria SKIN: Denies rash. MSK: Denies joint pain. NEURO: Denies headache (Saqib West) Past Medical History Past Medical History: Coronary Artery Disease (CAD), Chest Pain / Angina, CVA/TIA, Diabetes Mellitus, Eye Disorder, GERD/Reflux, Hearing Disorder / Deafness, Hyperlipidemia, Hypertension, Myocardial Infarction (ND), Prostate Disorder, Renal Disease, Rheumatoid Arthritis (RA) Additional Past Medical History / Comment(s): ND X2 in 2014 and 02/2023., 02 3L/NC., Hx stroke Apr 2017. , hx tia's ., left side weakness., Migranes., Diabetic neuropathy arms and legs, tremors off and on, circulation problems, uses quad cane and wheelchair., Kidney disease with dialysis [facility]. Hx Pancreatitis., Legally blind, some trouble hearing. Enlarged prostate, trouble urinating. , hx of recent uti's., anemia., constipation Last Myocardial Infarction Date:: 02/2023 History of Any Multi-Drug Resistant Organisms: None Reported Past Surgical History: Cholecystectomy, Heart Catheterization, Heart Cath eterization With Stent, Heart Catheterization With Stent, Hernia Repair, Prostate Surgery Additional Past Surgical History / Comment(s): Dialysis Port Placed - 03/14/23, HIATAL HERNIA REPAIR - 01/23/21., states hx 5 heart caths with 5 stents. Past Anesthesia/Blood Transfusion Reactions: No Reported Reaction Additional Past Anesthesia/Blood Transfusion Reaction / Comment(s): . Date of Last Stent Placement:: 05/07/23 Past Psychological History: Anxiety, Depression Smoking Status: Never smoker Past Alcohol Use History: None Reported Past Drug Use History: None Reported - Past Family History Mother Family Medical History: CVA/TIA, Diabetes Mellitus, Hypertension Additional Family Medical History / Comment(s): Parkinson's. Father Family Medical History: CVA/TIA, Diabetes Mellitus, Myocardial Infarction (ND) Additional Family Medical History / Comment(s): Father of a ND in his 50s. <Saqib West - Last Filed: 12/08/23 21:20> General Exam Limitations: no limitations <Saqib West - Last Filed: 12/08/23 21:20> - General Exam Comments Initial Comments: General: Appears in no acute distress. HEAD: Normal with no signs of head trauma. EYES: PERRLA, EOMI, conjunctiva normal, no discharge. ENT: Hearing grossly intact, normal oropharynx. RESPIRATORY: Clear breath sounds bilaterally. No wheezes, rales, or rhonchi. C/V: Regular rate and rhythm. S1 and S2 auscultated, no edema, peripheral pulses 2+ and intact throughout. Right chest dialysis access appears uncomplicated. ABD: Abd is soft, tender to palpation periumbilically and epigastrically. Nondistended. No guarding. No rebound tenderness. EXT: Normal range of motion, no obvious deformity SKIN: No rashes or lesions observed on exposed skin. NEURO: Alert and oriented x 4. (Saqib West) Course Vital Signs 12/08/23 12/08/23 12/08/23 04:58 06:15 08:10 Temperature 98 F 98.7 F Pulse Rate 80 78 78 Respiratory 18 16 17 Rate Blood Pressure 207/93 199/98 196/92 O2 Sat by Pulse 100 100 97 Oximetry 12/08/23 09:34 Temperature 98.7 F Pulse Rate 76 Respiratory 17 Rate Blood Pressure 203/87 O2 Sat by Pulse 98 Oximetry Medical Decision Making - Lab Data Result diagrams: 12/08/23 05:00 12/08/23 05:00 <Jeffrey Mcclellan - Last Filed: 12/08/23 08:56> - Lab Data Result diagrams: 12/08/23 05:00 12/08/23 05:00 <Saqib West - Last Filed: 12/08/23 21:20> - Medical Decision Making CT reviewed, negative for acute intra-abdominal process. Patient should go to dialysis which is scheduled for 2 hours from now. Patient stable for discharge at this time. (Jeffrey Mcclellan) Was pt. sent in by a medical professional or institution (, PA, DATABASE DEVELOPER, urgent care, hospital, or prison...) When possible be specific @ -No Did you speak to anyone other than the patient for history (EMS, parent, family, police, friend...)? What history was obtained from this source @ -No Did you review nursing and triage notes (agree or disagree)? Why? @ -I reviewed and agree with nursing and triage notes Were old charts reviewed (outside hosp., previous admission, EMS record, old EKG, old radiological studies, urgent care reports/EKG's, prison records)? Report findings @ -No old charts were reviewed Differential Diagnosis (chest pain, altered mental status, abdominal pain women, abdominal pain men, vaginal bleeding, weakness, fever, dyspnea, syncope, headache, dizziness, GI bleed, back pain, seizure, CVA, palpatations, mental health, musculoskeletal)? @ -Differential Abdominal Pain Men: Appendicitis, cholecystitis, diverticulosis, ischemic bowel, pancreatitis, hepatitis, UTI, gastroenteritis, AAA, incarcerated hernia, bowel obstruction, constipation, inflammatory bowel, hepatitis, peptic ulcer disease, splenic infarction, perforated viscus, testicular torsion, this is not meant to be an all-inclusive list EKG interpreted by me (3pts min.). @ -None none X-rays interpreted by me (1pt min.). @ -None done CT interpreted by me (1pt min.). @ -Pending U/S interpreted by me (1pt. min.). @ -None done What testing was considered but not performed or refused? (CT, X-rays, U/S, labs)? Why? @ -None What meds were considered but not given or refused? Why? @ -None Did you discuss the management of the patient with other professionals (professionals i.e. , PA, DATABASE DEVELOPER, lab, RT, psych nurse, social insurance specialist, counting machine operator, teacher, mounted police officer, case management director)? Give summary @ -No Was smoking cessation discussed for >3mins.? @ -No Was critical care preformed (if so, how long)? @ -No Were there social determinants of health that impacted care today? How? (Homelessness, low income, unemployed, alcoholism, drug addiction, transportation, low edu. Level, literacy, decrease access to med. care, correction, rehab)? @ -No Was there de-escalation of care discussed even if they declined (Discuss DNR or withdrawal of care, Hospice)? DNR status @ -No What co-morbidities impacted this encounter? (DM, HTN, Smoking, COPD, CAD, Cancer, CVA, ARF, Chemo, Hep., AIDS, mental health diagnosis, sleep apnea, morbid obesity)? @ -None Was patient admitted / discharged? Hospital course, mention meds given and route, prescriptions, significant lab abnormalities, going to OR and other pertinent info. @ -Patient presents for intractable nausea vomiting and diarrhea. Workup started in triage. Laboratory studies relatively unremarkable. Mild hypokalemia as well as elevated BUN and creatinine in the setting of CKD. Appears to be at his baseline. No missed runs of dialysis. Vital signs within acceptable limits. Will obtain additional CT imaging of the abdomen pelvis due to the pain. He is mildly hypertensive which I do attribute pain, and he will be treated with IV analgesia medications. Patient in agreement with this plan. CT imaging still pending at this time. Signed out to Dr. Mcclellan pending results of imaging. Undiagnosed new problem with uncertain prognosis? @ -No Drug Therapy requiring intensive monitoring for toxicity (Heparin, Nitro, Insulin, Cardizem)? @ -No Were any procedures done? @ -No Diagnosis/symptom? @ -Nausea, vomiting, diarrhea Acute, or Chronic, or Acute on Chronic? @ -Acute Uncomplicated (without systemic symptoms) or Complicated (systemic symptoms)? @ -Uncomplicated Side effects of treatment? @ -None Exacerbation, Progression, or Severe Exacerbation] @ -No Poses a threat to life or bodily function? @ -Unlikely (Saqib West) - Lab Data Lab Results 12/08/23 12/08/23 Range/Units 05:00 05:00 WBC 6.4 (3.8-10.6) k/uL RBC 3.36 L (4.30-5.90) m/uL Hgb 10.5 L (13.0-17.5) gm/dL Hct 30.3 L (39.0-53.0) % MCV 90.0 (80.0-100.0) fL MCH 31.2 (25.0-35.0) pg MCHC 34.6 (31.0-37.0) g/dL RDW 13.6 (11.5-15.5) % Plt Count 182 (150-450) k/uL MPV 7.1 Neutrophils % 70 % Lymphocytes % 19 % Monocytes % 7 % Eosinophils % 2 % Basophils % 0 % Neutrophils # 4.4 (1.3-7.7) k/uL Lymphocytes # 1.2 (1.0-4.8) k/uL Monocytes # 0.5 (0-1.0) k/uL Eosinophils # 0.1 (0-0.7) k/uL Basophils # 0.0 (0-0.2) k/uL Poikilocytosis Slight Sodium 139 (137-145) mmol/L Potassium 3.3 L (3.5-5.1) mmol/L Chloride 103 (98-107) mmol/L Carbon Dioxide 24 (22-30) mmol/L Anion Gap 12 mmol/L BUN 28 H (9-20) mg/dL Creatinine 3.96 H (0.66-1.25) mg/dL Est GFR (CKD-EPI)AfAm 18 (>60 ml/min/1.73 sqM) Est GFR (CKD-EPI)NonAf 16 (>60 ml/min/1.73 sqM) Glucose 208 H (74-99) mg/dL Calcium 8.5 (8.4-10.2) mg/dL Total Bilirubin 0.7 (0.2-1.3) mg/dL AST 29 (17-59) U/L ALT 28 (4-49) U/L Alkaline Phosphatase 125 (38-126) U/L Total Protein 6.9 (6.3-8.2) g/dL Albumin 4.5 (3.5-5.0) g/dL Disposition Is patient prescribed a controlled substance at d/c from ED?: No Time of Disposition: 08:58 <Jeffrey Mcclellan - Last Filed: 12/08/23 08:56> <Saqib West - Last Filed: 12/08/23 21:20> Clinical Impression: Nausea & vomiting Disposition: HOME SELF-CARE Condition: Fair Instructions (If sedation given, give patient instructions): Acute Nausea and Vomiting (ED) Referrals: None,Stated [Primary Care Provider] - 1-2 days
[2023-12-08 08:19] VITALS: RESP 17; TEMP 98.7
--- NOTE | 2023-12-08 08:54 | CT ---
EXAMINATION TYPE: CT abdomen pelvis wo con CT DLP: 558.2 mGycm, Automated exposure control for dose reduction was used. DATE OF EXAM: 12/08/2023 6:42 AM COMPARISON: 06/29/2020 CLINICAL INDICATION:Male, 58 years old with history of abd pain; Patient comes in intractable nausea/ vomiting and diarrhea since TECHNIQUE: Axial CT abdomen pelvis wo con;Sagittal and coronal reformats were created on a separate workstation. Contrast used: , (none if empty) Oral contrast used: without Oral Contrast (none if empty) FINDINGS: LOWER CHEST: the heart is mildly enlarged for size. Coronary artery atherosclerosis present. ABDOMEN LIVER: Unremarkable GALLBLADDER AND BILE DUCTS: The gallbladder is surgically absent. PANCREAS: Unremarkable. SPLEEN: Unremarkable. ADRENAL GLANDS: Unremarkable. KIDNEYS AND URETERS: No evidence of hydronephrosis or renal calculus. The ureters are unremarkable. PELVIS BLADDER: Unremarkable REPRODUCTIVE: Unremarkable. ABDOMEN & PELVIS STOMACH AND BOWEL: Moderate hiatal hernia. Post surgical changes on the cardiac sphincter gastroesop hageal junction. No evidence of bowel obstruction. PERITONEUM/RETROPERITONEUM: No evidence of pneumoperitoneum or free fluid. VASCULATURE: No evidence of aortic aneurysm. MUSCULOSKELETAL: No acute osseous abnormalities LYMPH NODES: No gross evidence for lymphadenopathy. SOFT TISSUE/ABDOMINAL WALL: Fat-containing umbilical hernia. Bilateral fat-containing inguinal hernia s left greater than right. IMPRESSION: 1. No evidence for acute abdominal process. 2. Moderate hiatal hernia.
[2023-12-08 09:41] VITALS: BP 203/87; PULSE 76
== END 2023-12-08 09:44 | disposition home or self-care (01) ==
LOC: EC 04:51
DX: R11.2 Nausea with vomiting, unspecified (principal); R19.7 Diarrhea, unspecified; Z88.2 Allergy status to sulfonamides; Z88.5 Allergy status to narcotic agent; Z88.8 Allergy status to other drugs, medicaments and biological substances
CPT/HCPCS: 36415; 80053; 85025; 74176; 99285; 96374; 96375; 96376; J2270; J2405

== ENCOUNTER 2024-02-08 20:11 | Emergency (ER) | payer MEDICARE ==
[2024-02-09] MEDS ORDERED: MORPHINE SULFATE 4 MG/ML SYRINGE ONE (01:44)
--- NOTE | 2024-03-24 12:45 | XR ---
EXAM: XR Chest, 2 Views CLINICAL HISTORY: Chest pain SOB hx of HI pt thinks he has pneumonia TECHNIQUE: Frontal and lateral views of the chest. COMPARISON: None FINDINGS: Patient's body habitus limits the study. An elevated right hemidiaphragm. Aright IJ double lumen hemodialysis catheter in place. Lungs:Bilateral bronchial wall and perihilar mild interstitial thickening.. No consolidation. Pleural space:Unremarkable. No pneumothorax. Heart:[place]/mild cardiomegaly. Mediastinum:Unremarkable. Normal mediastinal contour. Bones/joints:Osteopenia. No acute fracture.. IMPRESSION: Mild bronchial wall thickening and mildly prominent perihilar/peripheral vascular markings. No consolidation or pleural effusion. An elevated right hemidiaphragm. . Radiologist: Louie West MD, CYNDIR Electronically Signed: 02/09/24 01:41 Study first marked ready to read at 23:23, study last marked ready to read at 23:23, initial results transmitted at 01:4 MTDD
== END 2024-02-09 00:30 | disposition home or self-care (01) ==
LOC: EC 20:11
DX: R09.82 Postnasal drip (principal)
CPT/HCPCS: 71046; 93005; 96374; 99285

== ENCOUNTER 2024-02-11 09:01 | Day surgery (SDC) | payer MEDICARE ==
[2024-02-11] MEDS ORDERED: INSULIN ASPART (NovoLOG) 100 UNIT/ML VIAL SQ ONE (10:05)
[2024-02-11] MEDS ORDERED: SODIUM CHLORIDE 0.9% 500 ML BAG ONE (10:05)
[2024-02-11] MEDS ORDERED: diphenhydrAMINE 50 MG/ML 1 ML VIAL ONE (10:10)
[2024-02-11] MEDS ORDERED: methylPREDNISolone SOD SUCCI 125 MG/2 ML VIAL ONE (10:10)
[2024-02-11] MEDS ORDERED: HEPARIN SODIUM,PORCINE 10,000 UNIT/ML 1 ML VIAL ONE (10:15)
[2024-02-11] MEDS ORDERED: SODIUM CHLORIDE 0.9% 1,000 ML BAG ONE (10:15)
[2024-02-11] MEDS ORDERED: LIDOCAINE 1% INJ 10MG/ML (20 ML MDV) ONE (11:35)
[2024-02-11] MEDS ORDERED: MIDAZOLAM 2 MG/2 ML VIAL ONE (11:35)
[2024-02-11] MEDS ORDERED: fentaNYL (PF) 50 MCG/ML 2 ML AMP ONE (11:35)
[2024-02-11] MEDS: IOPAMIDOL-370 100ML BTL INJ ONE (12:15)
[2024-02-11] MEDS ORDERED: HYDROcodone/APAP 5-325MG 1 EACH TAB ONE (12:39)
[2024-02-11] MEDS ORDERED: LOSARTAN 50 MG TAB ONE (13:59)
[2024-02-11] MEDS ORDERED: METOPROLOL TARTRATE 50 MG TAB ONE (13:59)
[2024-02-11] MEDS ORDERED: FUROSEMIDE 80 MG TAB ONE (13:59)
[2024-02-11] MEDS ORDERED: hydrALAZINE HCL 50 MG TAB ONE (13:59)
--- NOTE | 2024-03-18 12:28 | OP ---
OPERATIVE REPORT DATE OF SERVICE : PREOPERATIVE DIAGNOSIS: End-stage renal disease. POSTOPERATIVE DIAGNOSES: End-stage renal disease, non-maturing fistula. PROCEDURES: 1. Ultrasound-guided right upper extremity AV fistula access x2. 2. Fistulogram. 3. Percutaneous transluminal balloon angioplasty, inflow anastomosis and cephalic vein with 4 x 60 and 5.5 x 40 balloons. 4. Moderate conscious sedation x39 minutes with personal monitoring certified RN administration with hemodynamic monitoring. SPECIMEN: None. ESTIMATED BLOOD LOSS: Less than 10 mL. CONDITION: Stable to Recovery. CLINICAL NOTE: The patient has had a right upper extremity radiocephalic fistula creation that has had multiple attempted access; however, difficulty with access and continued utilization of the tunneled catheter, therefore due to this, it was recommended he undergo fistulogram for evaluation of non-maturation. Risks and benefits were discussed including but not limited to, bleeding, infection, injury to the vessel. The patient seemingly understood and was willing to proceed. DESCRIPTION OF PROCEDURE: The patient was taken to the operative suite and placed in supine position. The right upper extremity was prepped and draped in usual sterile fashion. A preprocedure time- out was performed, and all parties were in agreement. Using the ultrasound, in the outflow direction, over the area of greatest thrill, the skin was anesthetized. Permanent image of the ultrasound was obtained. The vessel was paten without any significant thrombus. Access was achieved and Seldinger technique was used to place a Micro-Access sheath. An imaging performed showing no significant outflow stenosis through the upper arm and a large appearing cephalic vein throughout. Manual pressure was held on the distal outflow and inflow image was performed, the vessel itself was mildly tortuous with smaller size of the inflow, therefore at this time, the decision was made to access in retrograde fashion. The ultrasound was then utilized again at the level of the forearm in retrograde fashion, access was obtained with placement of a 5-Burkinan sheath. Catheters and wires were then used to access the inflow through the radial artery. An angiogram was performed showing a patent radial artery without significant disease to palmar arch. Utilizing initially, a 4 mm balloon, angioplasty of the anastomosis and inflow was performed. There was improvement, but still some degree of areas where they was valve or mild stenosis, therefore a 5.5 x 40 balloon was utilized. Repeat imaging was performed. There appeared to be significant improvement of flow. There was a good thrill. The catheters and wires were then removed. The Micro sheath was then removed and manual pressure was held. The 5-Burkinan sheath was removed after a [id number] suture was placed. Dressings were placed and the patient was transferred back to Recovery in stable condition, having tolerated the procedure well. Plan is for the patient to discharge home today. Verbal discharge instructions were given. The patient seemingly understands. Follow back up with me in the office in 2 weeks. He may have the suture removed at dialysis at his next visit. They may begin utilizing this in the next week. He seemingly understands. MMODL / IJN: [id number] /
== END 2024-02-11 14:36 | disposition home or self-care (01) ==
LOC: CATHCVL 09:01
PROVIDERS: ATTEND Surgery
DX: N18.6 End stage renal disease
CPT/HCPCS: 36902

== ENCOUNTER 2024-04-12 14:36 | Emergency (ER) | payer MEDICARE ==
[2024-04-12 15:22] VITALS: TEMP 97.5
--- NOTE | 2024-04-12 15:22 | ED ---
Chest Pain HPI - General Chief Complaint: Chest Pain Stated Complaint: Hypertension Time Seen by Provider: 04/12/24 15:18 Source: patient, RN notes reviewed, old records reviewed Mode of arrival: EMS Limitations: no limitations - History of Present Illness Initial Comments: This is a 58-year-old male to the ER for evaluation of anxiety chest pain shortn ess of breath and hypertension. Uncontrolled blood pressure unable to keep down medications at home with some nausea and vomiting chest pain. History of chronic chest pain and ACS MD Complaint: chest pain -: days(s) Onset: during rest, during exertion Pain Location: substernal Severity: moderate Severity scale (1-10): 4 Consistency: constant Improves With: nothing Worsens With: nothing Anginal Symptoms: sense of impending doom Other Symptoms: palpitations Treatments Prior to Arrival: none - Related Data Home Medications Medication Instructions Recorded Confirmed Pantoprazole [Protonix] 40 mg PO BID 11/05/17 04/12/24 Tamsulosin [Flomax] 0.8 mg PO HS 11/05/17 04/12/24 Citalopram Hydrobromide [CeleXA] 20 mg PO DAILY 12/12/18 04/12/24 allopurinoL [Zyloprim] 100 mg PO DAILY 04/05/19 04/12/24 Atorvastatin [Lipitor] 80 mg PO HS 12/30/19 04/12/24 Isosorbide Mononitrate ER [Imdur] 60 mg PO DAILY 12/30/19 04/12/24 Citalopram Hydrobromide [CeleXA] 40 mg PO DAILY 06/29/20 04/12/24 Folic Acid/Vit B Complex and C 0.8 mg PO DAILY PRN 05/05/23 04/12/24 [Nephro-Cirilo Tablet] Losartan [Cozaar] 25 mg PO DAILY 09/19/23 04/12/24 Metoprolol Succinate (ER) [Toprol 50 mg PO DAILY 09/19/23 04/12/24 XL] Furosemide [Lasix] 80 mg PO DAILY 10/16/23 04/12/24 Nitroglycerin Sl Tabs [Nitrostat] 0.4 mg SL Q5M PRN 10/16/23 04/12/24 Fluticasone Nasal [place] [Flonase 2 spray EA NOSTRIL BID 04/12/24 04/12/24 Nasal [place]] hydrALAZINE HCL [Apresoline] 50 mg PO TID 04/12/24 04/12/24 Previous Rx's Medication Instructions Recorded Clopidogrel [Plavix] 75 mg PO HS #30 tab 03/18/23 Ranolazine [Ranexa] 500 mg PO Q12HR #60 tab 09/21/23 Allergies Allergy/AdvReac Type Severity Reaction Status Date / Time hydromorphone AdvReac Confusion Verified 04/12/24 17:14 Iodinated Contrast Media AdvReac Nausea & Verified 04/12/24 17:14 [Iodinated Contrast- Oral Vomiting and IV Dye] morphine AdvReac Vomiting Verified 04/12/24 17:14 sucralfate AdvReac Nausea & Verified 04/12/24 17:14 Vomiting Review of Systems ROS Statement: Those systems with pertinent positive or pertinent negative responses have been documented in the HPI. ROS Other: All systems not noted in ROS Statement are negative. Past Medical History Past Medical History: Coronary Artery Disease (CAD), Chest Pain / Angina, CVA/TIA, Diabetes Mellitus, Eye Disorder, GERD/Reflux, Hearing Disorder / Deafness, Hyperlipidemia, Hypertension, Myocardial Infarction (DE), Prostate Disorder, Renal Disease, Rheumatoid Arthritis (RA) Additional Past Medical History / Comment(s): [place] X2 in 2014 and 02/2023., 02 3L/NC., Hx stroke Apr 2017. , hx tia's ., left side weakness., Migranes., Diabetic neuropathy arms and legs, tremors off and on, circulation problems, uses quad cane and wheelchair., Kidney disease with dialysis [facility]. Hx Pancreatitis., Legally blind, some trouble hearing. Enlarged prostate, trouble urinating. , hx of recent uti's., anemia., constipation Last Myocardial Infarction Date:: 02/2023 History of Any Multi-Drug Resistant Organisms: None Reported Past Surgical History: Cholecystectomy, Heart Catheterization, Heart Catheterization With Stent, Heart Catheterization With Stent, Hernia Repair, Prostate Surgery Additional Past Surgical History / Comment(s): Dialysis Port Placed - 03/14/23, HIATAL HERNIA REPAIR - 01/23/21., states hx 5 heart caths with 5 stents. Past Anesthesia/Blood Transfusion Reactions: No Reported Reaction Additional Past Anesthesia/Blood Transfusion Reaction / Comment(s): . Date of Last Stent Placement:: 05/07/23 Past Psychological History: Anxiety, Depression Smoking Status: Never smoker Past Alcohol Use History: None Reported Past Drug Use History: None Reported - Past Family History Mother Family Medical History: CVA/TIA, Diabetes Mellitus, Hypertension Additional Family Medical History / Comment(s): Parkinson's. Father Family Medical History: CVA/TIA, Diabetes Mellitus, Myocardial Infarction (DE) Additional Family Medical History / Comment(s): Father of a DE in his 50s. General Exam Limitations: no limitations General appearance: alert, in no apparent distress, anxious Head exam: Present: atraumatic, normocephalic, normal inspection Eye exam: Present: normal appearance, PERRL, EOMI. Absent: scleral icterus, conjunctival injection, periorbital swelling ENT exam: Present: normal exam, mucous membranes moist Neck exam: Present: normal inspection. Absent: tenderness, meningismus, lymphadenopathy Respiratory exam: Present: normal lung sounds bilaterally. Absent: respiratory distress, wheezes, rales, rhonchi, stridor Cardiovascular Exam: Present: regular rate, normal rhythm, normal heart sounds. Absent: systolic murmur, diastolic murmur, rubs, gallop, clicks GI/Abdominal exam: Present: soft, normal bowel sounds. Absent: distended, te nderness, guarding, rebound, rigid Extremities exam: Present: normal inspection, full ROM, normal capillary refill. Absent: tenderness, pedal edema, joint swelling, calf tenderness Back exam: Present: normal inspection Neurological exam: Present: alert, oriented X3, CN II-XII intact Psychiatric exam: Present: normal affect, normal mood Skin exam: Present: warm, dry, intact, normal color. Absent: rash Course Vital Signs 04/12/24 04/12/24 04/12/24 14:46 15:18 16:31 Temperature 98 F 97.5 F L Pulse Rate 77 73 75 Respiratory 18 18 20 Rate Blood Pressure 182/93 166/93 174/86 O2 Sat by Pulse 98 99 97 Oximetry 04/12/24 04/12/24 17:06 17:29 Temperature Pulse Rate 73 68 Respiratory 20 20 Rate Blood Pressure 171/89 154/83 O2 Sat by Pulse 98 Oximetry - Reevaluation(s) Reevaluation #1: 04/12/24 16:37 Medical records reviewed Reevaluation #2: Patient symptoms improved here in the ER Reevaluation #3: Patient informed of results and questions answered Reevaluation #4: 04/12/24 16:37 Was pt. sent in by a medical professional or institution (RADHA Moya, PRESS OPERATOR HELPER, urgent care, hospital, or long-term...) When possible be specific @ -no Did you speak to anyone other than the patient for history (EMS, parent, family, police, friend...)? What history was obtained from this source @ -no Did you review nursing and triage notes (agree or disagree)? Why? @ -agree Are old charts reviewed (outside hosp., previous admission, EMS record, old EKG, old radiological studies, urgent care reports/EKG's, long-term records)? Report findings @ -yes Differential Diagnosis (chest pain, altered mental status, abdominal pain women, abdominal pain men, vaginal bleeding, weakness, fever, dyspnea, syncope, headache, dizziness, GI bleed, back pain, seizure, CVA, palpatations, mental health, musculoskeletal)? @ -prior EKG interpreted by me (3pts min.). @ -yes X-rays interpreted by me (1pt min.). @ -yes negative for acute disease CT interpreted by me (1pt min.). @ -no U/S interpreted by me (1pt. min.). @ -no What testing was considered but not performed or refused? (CT, X-rays, U/S, labs)? Why? @ -none What meds were considered but not given or refused? Why? @ -none Did you discuss the management of the patient with other professionals (professionals i.e. RADHA Moya, PRESS OPERATOR HELPER, lab, RT, psych nurse, social service worker, cardiac/vascular sonographer, teacher, guest relation officer, test case developer)? Give summary @ -no Was smoking cessation discussed for >3mins.? @ -no Was critical care preformed (if so, how long)? @ -no Were there social determinants of health that impacted care today? How? (Homelessness, low income, unemployed, alcoholism, drug addiction, transportation, low edu. Level, literacy, decrease access to med. care, correction, rehab)? @ -none Was there de-escalation of care discussed even if they declined (Discuss DNR or withdrawal of care, Hospice)? DNR status @ -no What co-morbidities impacted this encounter? (DM, HTN, Smoking, COPD, CAD, Cancer, CVA, ARF, Chemo, Hep., AIDS, mental health diagnosis, sleep apnea, morbid obesity)? @ -none Was patient admitted / discharged? Hospital course, mention meds given and route, prescriptions, significant lab abnormalities, going to OR and other pertinent info. @ - 58 male found today for hypertension. Hypertension chest pain although symptoms are resolved patient feels well can be discharged home Discharge Undiagnosed new problem with uncertain prognosis? @ -no Drug Therapy requiring intensive monitoring for toxicity (Heparin, Nitro, Insulin, Cardizem)? @ -no Were any procedures done? @ -no Diagnosis/symptom? @ -Hypertension Acute, or Chronic, or Acute on Chronic? @ -Acute Uncomplicated (without systemic symptoms) or Complicated (systemic symptoms)? @ -Complicated Side effects of treatment? @ -no Exacerbation, Progression, or Severe Exacerbation? @ -exacerbation Poses a threat to life or bodily function? How? (Chest pain, USA, DE, pneumonia, PE, COPD, DKA, ARF, appy, cholecystitis, CVA, Diverticulitis, Homicidal, Suicidal, threat to staff... and all critical care pts) @ -yes Reevaluation #5: Differential Chest Pain: Stable Angina, Unstable Angina, STEMI, NSTEMI Aortic Dissection, Pneumothorax, Musculoskeletal, Esophageal Spasm GERD, Cholecystitis, Pancreatitis, Zoster, this is not meant to be an all-inclusive list. Chest Pain MDM - MDM 58 male found today for hypertension. Hypertension chest pain although symptoms are resolved patient feels well can be discharged home Disposition Clinical Impression: Atypical chest pain, Chest pain, Hypertensive urgency Disposition: HOME SELF-CARE Condition: Good Instructions (If sedation given, give patient instructions): Chest Pain (ED) Is patient prescribed a controlled substance at d/c from ED?: No Referrals: Ashly Garcia DO [Primary Care Provider] - 1-2 days Time of Disposition: 17:00
[2024-04-12 16:05] LABS: ALT 20 U/L (4-49); AST 23 U/L (17-59); African American GFR (CKD) 26 (>60 ml/min/1.73 sqM); Albumin 4.1 g/dL (3.5-5.0); Alkaline Phosphatase 113 U/L (38-126); Anion Gap 8 mmol/L; Blood Urea Nitrogen 29 mg/dL (9-20); Calcium 7.8 mg/dL (8.4-10.2); Carbon Dioxide 30 mmol/L (22-30); Chloride 96 mmol/L (98-107); Glucose 184 mg/dL (74-99); Magnesium 1.7 mg/dL (1.6-2.3); Non-African American GFR(CKD) 23 (>60 ml/min/1.73 sqM); Sodium 134 mmol/L (137-145); Total Bilirubin 0.6 mg/dL (0.2-1.3); Total Protein 6.6 g/dL (6.3-8.2)
[2024-04-12 16:09] LABS: INR 0.9 (<1.2); Prothrombin Time 10.3 sec (10.0-12.5)
[2024-04-12 16:12] LABS: Partial Thromboplastin Time 21.3 sec (22.0-30.0)
--- NOTE | 2024-04-12 16:27 | XR ---
EXAMINATION TYPE: XR chest 2V DATE OF EXAM: 04/12/2024 3:56 PM CLINICAL INDICATION: Male, 58 years old with history of Chest Pain; COMPARISON: Chest radiographs from 02/08/2024 TECHNIQUE: XR chest 2V Frontal view of the chest. FINDINGS: Lungs/Pleura: There is no evidence of pleural effusion, focal consolidation, or pneumothorax. Pulmonary vascularity: Unremarkable. Heart/mediastinum: Cardiomediastinal silhouette is unremarkable. Musculoskeletal: No acute osseous pathology. IMPRESSION: No acute cardiopulmonary disease/process. [facility], , 04/12/2024 4:25 PM
[2024-04-12 16:32] VITALS: RESP 20
[2024-04-12 16:43] LABS: Basophils % (A) 0 %; Eosinophils # (A) 0.1 k/uL (0-0.7); Eosinophils % (A) 2 %; HCT 34.7 % (39.0-53.0); HGB 11.9 gm/dL (13.0-17.5); Lymphocytes # (A) 0.9 k/uL (1.0-4.8); Lymphocytes % (A) 21 %; MCH 31.2 pg (25.0-35.0); MCHC 34.2 g/dL (31.0-37.0); MCV 91.2 fL (80.0-100.0); Mean Platelet Volume 7.4; Monocytes # (A) 0.3 k/uL (0-1.0); Monocytes % (A) 6 %; Neutrophils # (A) 2.9 k/uL (1.3-7.7); Neutrophils % (A) 68 %; Platelet Count 134 k/uL (150-450); RBC 3.81 m/uL (4.30-5.90); RDW 15.5 % (11.5-15.5); WBC 4.2 k/uL (3.8-10.6)
[2024-04-12] MEDS: HYDROcodone/APAP 10-325MG 1 EACH TAB PO ONE (17:08)
[2024-04-12] MEDS: LABETALOL 5 MG/ML VIAL MDV IVP STA (17:09)
[2024-04-12 17:29] VITALS: BP 154/83; PULSE 68
== END 2024-04-12 17:30 | disposition home or self-care (01) ==
LOC: EC 14:36
CPT/HCPCS: 36415; 71046; 80053; 83735; 84484; 85025; 85610; 85730; 93005; 96374; 99285

== ENCOUNTER 2024-06-16 14:34 | Observation (INO) | payer MEDICARE ==
--- NOTE | 2024-06-16 15:26 | XR ---
EXAMINATION TYPE: XR chest 2V DATE OF EXAM: 06/16/2024 COMPARISON: 04/12/2024 CLINICAL INDICATION: Male, 58 years old with history of Chest Pain; , TECHNIQUE: XR chest 2V views of the chest. FINDINGS: The lungs are clear and there is no pneumothorax, pleural effusion, or focal pneumonia. Heart size upper limits of normal and no overt failure. Osseous structures demonstrate hypertrophic and degenera tive changes of the spine. Diffuse osteopenia. Elevated right hemidiaphragm. IMPRESSION: 1. No acute process. [facility], , 06/16/2024 3:24 PM
[2024-06-16 15:39] LABS: ALT 32 U/L (4-49); AST 25 U/L (17-59); African American GFR (CKD) 26 (>60 ml/min/1.73 sqM); Albumin 4.4 g/dL (3.5-5.0); Alkaline Phosphatase 152 U/L (38-126); Anion Gap 8 mmol/L; Blood Urea Nitrogen 30 mg/dL (9-20); Calcium 8.2 mg/dL (8.4-10.2); Carbon Dioxide 30 mmol/L (22-30); Chloride 97 mmol/L (98-107); Glucose 176 mg/dL (74-99); Magnesium 1.7 mg/dL (1.6-2.3); Non-African American GFR(CKD) 23 (>60 ml/min/1.73 sqM); Potassium 3.1 mmol/L (3.5-5.1); Sodium 135 mmol/L (137-145); Total Bilirubin 0.8 mg/dL (0.2-1.3); Total Protein 7.2 g/dL (6.3-8.2)
[2024-06-16 15:40] LABS: Prothrombin Time 11.2 sec (10.0-12.5)
[2024-06-16 15:41] LABS: Partial Thromboplastin Time 24.5 sec (22.0-30.0)
[2024-06-16 15:43] LABS: Basophils % (A) 1 %; Eosinophils # (A) 0.1 k/uL (0-0.7); Eosinophils % (A) 2 %; HCT 29.2 % (39.0-53.0); Lymphocytes % (A) 20 %; MCH 28.1 pg (25.0-35.0); MCHC 33.4 g/dL (31.0-37.0); Mean Platelet Volume 6.4; Monocytes # (A) 0.3 k/uL (0-1.0); Monocytes % (A) 6 %; Neutrophils # (A) 3.5 k/uL (1.3-7.7); Neutrophils % (A) 70 %; Platelet Count 108 k/uL (150-450); RBC 3.47 m/uL (4.30-5.90); RDW 15.2 % (11.5-15.5); WBC 4.9 k/uL (3.8-10.6)
[2024-06-16 15:48] LABS: NT-Pro-B-Type Natriuretic Pept 4210 pg/mL
[2024-06-16 15:51] LABS: HGB 9.7 gm/dL (13.0-17.5); MCV 84.1 fL (80.0-100.0)
--- NOTE | 2024-06-16 16:19 | ED ---
Chest Pain HPI - General Chief Complaint: Chest Pain Stated Complaint: chest pain Time Seen by Provider: 06/16/24 14:45 Source: patient, EMS Mode of arrival: EMS Limitations: no limitations - History of Present Illness Initial Comments: 58-year-old male with past medical history of coronary artery disease, end-stage renal disease on hemodialysis who presents to the emergency department from dialysis. Patient had about an hour left of his dialysis to go when he had crushing chest pain. States he felt like an elephant was sitting on his chest. EMS was called. They administered 3 nitro and an aspirin. He reports his pain came down to an 8 from a 10. He does have a history of coronary disease with stent placement. He admits to nausea without vomiting. No shortness of breath. Denies significant swelling. No history of DVT or PE. No other alleviating, precipitating or modifying factors - Related Data Home Medications Medication Instructions Recorded Confirmed Pantoprazole [Protonix] 40 mg PO BID 11/05/17 06/16/24 Tamsulosin [Flomax] 0.4 mg PO BID 11/05/17 06/16/24 Citalopram Hydrobromide [CeleXA] 20 mg PO DAILY 12/12/18 06/16/24 allopurinoL [Zyloprim] 100 mg PO DAILY 04/05/19 06/16/24 Atorvastatin [Lipitor] 80 mg PO HS 12/30/19 06/16/24 Citalopram Hydrobromide [CeleXA] 40 mg PO DAILY 06/29/20 06/16/24 Folic Acid/Vit B Complex and C 0.8 mg PO DAILY 05/05/23 06/16/24 [Nephro-Cirilo Tablet] Losartan [Cozaar] 25 mg PO DAILY 09/19/23 06/16/24 Metoprolol Succinate (ER) [Toprol 50 mg PO DAILY 09/19/23 06/16/24 XL] Furosemide [Lasix] 80 mg PO DAILY 10/16/23 06/16/24 Nitroglycerin Sl Tabs [Nitrostat] 0.4 mg SL Q5M PRN 10/16/23 06/16/24 hydrALAZINE HCL [Apresoline] 50 mg PO TID 04/12/24 06/16/24 Calcium Carbonate [Tums] 500 mg PO TID 06/16/24 06/16/24 Clopidogrel [Plavix] 75 mg PO DAILY 06/16/24 06/16/24 NIFEdipine XL [Procardia XL] 60 mg PO DAILY 06/16/24 06/16/24 Previous Rx's Medication Instructions Recorded Ranolazine [Ranexa] 500 mg PO Q12HR #60 tab 09/21/23 Aspirin 81 mg PO DAILY #30 tab 06/18/24 Isosorbide Mononitrate ER [Imdur] 15 mg PO DAILY #30 tab 06/18/24 Allergies Allergy/AdvReac Type Severity Reaction Status Date / Time hydromorphone AdvReac Confusion Verified 06/16/24 15:59 Iodinated Contrast Media AdvReac Nausea & Verified 06/16/24 15:59 [Iodinated Contrast- Oral Vomiting and IV Dye] morphine AdvReac Vomiting Verified 06/16/24 15:59 sucralfate AdvReac Nausea & Verified 06/16/24 15:59 Vomiting Review of Systems ROS Statement: Those systems with pertinent positive or pertinent negative responses have been documented in the HPI. ROS Other: All systems not noted in ROS Statement are negative. Past Medical History Past Medical History: Coronary Artery Disease (CAD), Chest Pain / Angina, CVA/TIA, Diabetes Mellitus, Eye Disorder, GERD/Reflux, Hearing Disorder / Deafness, Hyperlipidemia, Hypertension, Myocardial Infarction (HI), Prostate Disorder, Renal Disease, Rheumatoid Arthritis (RA) Additional Past Medical History / Comment(s): [place] X2 in 2014 and 02/2023., 02 3L/NC., Hx stroke Apr 2017. , hx tia's ., left side weakness., Migranes., Diabetic neuropathy arms and legs, tremors off and on, circulation problems, uses quad cane and wheelchair., Kidney disease with dialysis [facility]. Hx Pancre atitis., Legally blind, some trouble hearing. Enlarged prostate, trouble urinating. , hx of recent uti's., anemia., constipation Last Myocardial Infarction Date:: 02/2023 History of Any Multi-Drug Resistant Organisms: None Reported Past Surgical History: Cholecystectomy, Heart Catheterization, Heart Catheterization With Stent, Heart Catheterization With Stent, Hernia Repair, Prostate Surgery Additional Past Surgical History / Comment(s): Dialysis Port Placed - 03/14/23, HIATAL HERNIA REPAIR - 01/23/21., states hx 5 heart caths with 5 stents. Past Anesthesia/Blood Transfusion Reactions: No Reported Reaction Additional Past Anesthesia/Blood Transfusion Reaction / Comment(s): . Date of Last Stent Placement:: 05/07/23 Past Psychological History: Anxiety, Depression Smoking Status: Never smoker Past Alcohol Use History: None Reported Past Drug Use History: None Reported - Past Family History Mother Family Medical History: CVA/TIA, Diabetes Mellitus, Hypertension Additional Family Medical History / Comment(s): Parkinson's. Father Family Medical History: CVA/TIA, Diabetes Mellitus, Myocardial Infarction (HI) Additional Family Medical History / Comment(s): Father of a HI in his 50s. General Exam Limitations: no limitations General appearance: alert, in no apparent distress Head exam: Present: atraumatic, normocephalic, normal inspection Eye exam: Present: normal appearance, PERRL, EOMI. Absent: scleral icterus, conjunctival injection, periorbital swelling ENT exam: Present: normal exam, mucous membranes moist Neck exam: Present: normal inspection. Absent: tenderness, meningismus, lymphadenopathy Respiratory exam: Present: normal lung sounds bilaterally. Absent: respiratory distress, wheezes, rales, rhonchi, stridor Cardiovascular Exam: Present: regular rate, normal rhythm, normal heart sounds. Absent: systolic murmur, diastolic murmur, rubs, gallop, clicks GI/Abdominal exam: Present: soft, normal bowel sounds. Absent: distended, tenderness, guarding, rebound, rigid Extremities exam: Present: normal inspection, full ROM, normal capillary refill. Absent: tenderness, pedal edema, joint swelling, calf tenderness Back exam: Present: normal inspection Neurological exam: Present: alert, oriented X3, CN II-XII intact Psychiatric exam: Present: normal affect, normal mood Skin exam: Present: warm, dry, intact, normal color. Absent: rash Course Vital Signs 06/16/24 06/16/24 06/16/24 14:42 15:00 15:30 Temperature 98.0 F Pulse Rate 89 86 86 Respiratory 18 18 20 Rate Blood Pressure 178/87 164/81 158/89 O2 Sat by Pulse 100 100 100 Oximetry 06/16/24 06/16/24 06/16/24 17:02 19:09 20:09 Temperature Pulse Rate 89 87 87 Respiratory 22 16 18 Rate Blood Pressure 167/85 157/86 181/81 O2 Sat by Pulse 100 99 100 Oximetry 06/16/24 21:02 Temperature Pulse Rate 85 Respiratory 18 Rate Blood Pressure 176/86 O2 Sat by Pulse 100 Oximetry Chest Pain MDM - MDM Was pt. sent in by a medical professional or institution (RADHA Moya, PROPULSION GENERATOR REPAIRER, urgent care, hospital, or residential...) When possible be specific @ -Patient sent in from his dialysis center Did you speak to anyone other than the patient for history (EMS, parent, family, police, friend...)? What history was obtained from this source @ -Spoke with EMS for history Did you review nursing and triage notes (agree or disagree)? Why? @ -I reviewed and agree with nursing and triage notes Were old charts reviewed (outside hosp., previous admission, EMS record, old EKG , old radiological studies, urgent care reports/EKG's, residential records)? Report findings @ -No old charts were reviewed Differential Diagnosis (chest pain, altered mental status, abdominal pain women, abdominal pain men, vaginal bleeding, weakness, fever, dyspnea, syncope, headache, dizziness, GI bleed, back pain, seizure, CVA, palpatations, mental health, musculoskeletal)? @ -Differential Chest Pain: Stable Angina, Unstable Angina, STEMI, NSTEMI Aortic Dissection, Pneumothorax, Musculoskeletal, Esophageal Spasm GERD, Cholecystitis, Pancreatitis, Zoster, this is not meant to be an all-inclusive list. EKG interpreted by me (3pts min.). @ -Yes and demonstrates sinus rhythm with a rate of 86. WA interval 168. QRS 110. QTc of 481. No acute ST segment elevations or depressions X-rays interpreted by me (1pt min.). @ -Yes which demonstrates no acute process CT interpreted by me (1pt min.). @ -None done U/S interpreted by me (1pt. min.). @ -None done What testing was considered but not performed or refused? (CT, X-rays, U/S, labs)? Why? @ -None What meds were considered but not given or refused? Why? @ -None Did you discuss the management of the patient with other professionals (professionals i.e. RADHA Moya, PROPULSION GENERATOR REPAIRER, lab, RT, psych nurse, psychotherapist social worker, health promotion specialist, teacher, police patrol officer, clinical case manager)? Give summary @ -Spoke with Gabi from [facility] for admission Was smoking cessation discussed for >3mins.? @ -No Was critical care preformed (if so, how long)? @ -No Were there social determinants of health that impacted care today? How? (Homelessness, low income, unemployed, alcoholism, drug addiction, transportation, low edu. Level, literacy, decrease access to med. care, halfway, rehab)? @ -No Was there de-escalation of care discussed even if they declined (Discuss DNR or withdrawal of care, Hospice)? DNR status @ -No What co-morbidities impacted this encounter? (DM, HTN, Smoking, COPD, CAD, Cancer, CVA, ARF, Chemo, Hep., AIDS, mental health diagnosis, sleep apnea, morbid obesity)? @ -End-stage renal disease on hemodialysis, coronary disease Was patient admitted / discharged? Hospital course, mention meds given and route, prescriptions, significant lab abnormalities, going to OR and other pertinent info. @ -Upon arrival patient seen and evaluated in bed 7. Thorough history and physical exam was performed. IV access was established. Laboratory studies are conducted. Chest x-ray was performed. Patient received aspirin and nitro from EMS. I did recommend admission due to his extensive cardiac history forced patient was agreeable. Spoke with Gabi from [facility] for the admission Undiagnosed new problem with uncertain prognosis? @ -Yes Drug Therapy requiring intensive monitoring for toxicity (Heparin, Nitro, Insulin, Cardizem)? @ -No Were any procedures done? @ -No Diagnosis/symptom? @ -Acute chest pain, possible ACS, history of ascad, end-stage renal disease on hemodialysis Acute, or Chronic, or Acute on Chronic? @ -Acute on chronic Uncomplicated (without systemic symptoms) or Complicated (systemic symptoms)? @ -Complicated Side effects of treatment? @ -No Exacerbation, Progression, or Severe Exacerbation? @ -No Poses a threat to life or bodily function? How? (Chest pain, [place], HI, pneumonia, PE, COPD, DKA, ARF, appy, cholecystitis, CVA, Diverticulitis, Homicidal, Suicidal, threat to staff... and all critical care pts) @ -Yes as patient has advanced heart disease Disposition Clinical Impression: Chest pain, ESRD (end stage renal disease) on dialysis Disposition: ADMITTED IP TO THIS HOSP Condition: Stable Is patient prescribed a controlled substance at d/c from ED?: No Time of Disposition: 16:28 Decision to Admit Reason: Admit from EC Decision Date: 06/16/24 Decision Time: 16:29
[2024-06-16] MEDS ORDERED: NALOXONE 0.4 MG/ML 1 ML VIAL IV PRN (16:30)
[2024-06-16] MEDS: MORPHINE SULFATE 4 MG/ML SYRINGE IVP STA (16:58)
[2024-06-16] MEDS: ONDANSETRON 4 MG/2 ML VIAL IVP STA (17:00)
[2024-06-16] MEDS ORDERED: DEXTROSE 50% SYRINGE 50 ML IVP PRN ×2 (22:07)
[2024-06-16 22:16] LABS: Glucose,Whole Blood 166 mg/dL (70-110)
[2024-06-16] MEDS: INSULIN ASPART (NovoLOG) 100 UNIT/ML VIAL SQ SCH (23:17)
[2024-06-16] MEDS: RANOLAZINE 500 MG TAB.ER.12H PO SCH (23:17)
[2024-06-16] MEDS: PANTOPRAZOLE 40 MG TABLET PO SCH (23:17)
[2024-06-16] MEDS: ATORVASTATIN 80 MG TAB PO SCH (23:17)
[2024-06-16] MEDS: CALCIUM CARBONATE 500 MG CHEWABLE PO SCH (23:17)
[2024-06-16] MEDS: TAMSULOSIN 0.4 MG CAP.ER.24H PO SCH (23:17)
[2024-06-16] MEDS: NITROGLYCERIN OINT 1 INCH/GM PACKET TOPICAL SCH (23:18)
[2024-06-16] MEDS: hydrALAZINE HCL 50 MG TAB PO SCH ×2 (23:52→23:56)
[2024-06-17] MEDS: MORPHINE SULFATE 4 MG/ML SYRINGE IV PRN (01:02)
[2024-06-17] MEDS: ONDANSETRON 4 MG/2 ML VIAL IVP PRN ×2 (05:04→10:54)
[2024-06-17 06:20] LABS: Glucose,Whole Blood 199 mg/dL (70-110)
[2024-06-17 08:27] LABS: Blood Urea Nitrogen 34.3 mg/dL (9.0-27.0); Calcium 7.8 mg/dL (8.7-10.3); Carbon Dioxide 27.4 mmol/L (21.6-31.8); Chloride 95 mmol/L (96-109); Glucose 186 mg/dL (70-110); Potassium 3.5 mmol/L (3.5-5.5); Sodium 137 mmol/L (135-145)
[2024-06-17 08:38] LABS: Basophils # (A) 0.04 X 10*3/uL (0.00-0.10); Basophils % (A) 0.6 %; Eosinophils # (A) 0.14 X 10*3/uL (0.04-0.35); Eosinophils % (A) 2.2 %; HCT 29.3 % (39.6-50.0); HGB 9.5 g/dL (13.0-17.0); Lymphocytes # (A) 1.54 X 10*3/uL (0.90-5.00); Lymphocytes % (A) 23.8 %; MCH 28.4 pg (27.0-32.0); MCHC 32.4 g/dL (32.0-37.0); MCV 87.5 FL (80.0-97.0); Mean Platelet Volume 9.5 FL (9.5-12.2); Monocytes # (A) 0.53 X 10*3/uL (0.20-1.00); Monocytes % (A) 8.2 %; NRBC Per 100 WBC 0 X 10*3/uL (0.00-0.01); Neutrophils # (A) 4.19 X 10*3/uL (1.80-7.70); Neutrophils % (A) 64.9 %; Platelet Count 108 X 10*3/uL (140-440); RBC 3.35 X 10*6/uL (4.40-5.60); RDW 14.6 % (11.5-14.5); WBC 6.46 X 10*3/uL (4.50-10.00)
[2024-06-17] MEDS ORDERED: ALPRAZolam 0.5 MG TAB PO PRN (09:24)
[2024-06-17] MEDS ORDERED: ALPRAZolam 0.25 MG TAB PO PRN (09:24)
[2024-06-17] MEDS ORDERED: NITROGLYCERIN SL TABS 0.4 MG TAB SUBLINGUAL PRN (09:24)
--- NOTE | 2024-06-17 10:17 | P.NPCON ---
History of Present Illness - Reason for Consult end stage renal disease - History of Present Illness Reason for consultation: End-stage renal disease History of present illness: Patient is a 58-year-old male seen in renal consultation for end-stage renal disease. He is maintained on hemodialysis on Thursday schedule via right upper extremity fistula. Patient came to the hospital due to chest pain. Patient states he was at hemodialysis yesterday and developed crushing chest pain during dialysis. Patient states he felt like an elephant leg was on his chest. Patient does have significant history of coronary disease with stents. He did have vomiting prior to dialysis yesterday but subsided since. No fever or chills. Denies shortness of breath. He does make little urine. Vincent solis does have longstanding history of diabetes. Vital signs are stable. General: No acute distress. HEENT: Head exam is unremarkable. LUNGS: No audible rhonchi or wheezes. HEART: Rate and Rhythm are regular. ABDOMEN: Nontender. EXTREMITITES: No edema. Past Medical History Past Medical History: Coronary Artery Disease (CAD), Chest Pain / Angina, CVA/TIA, Diabetes Mellitus, Eye Disorder, GERD/Reflux, Hearing Disorder / Deafness, Hyperlipidemia, Hypertension, Myocardial Infarction ([place]), Prostate Disorder, Renal Disease, Rheumatoid Arthritis (RA) Additional Past Medical History / Comment(s): WI X2 in 2014 and 02/2023., 02 3L/NC., Hx stroke Apr 2017. , hx tia's ., left side weakness., Migranes., Diabetic neuropathy arms and legs, tremors off and on, circulation problems, uses quad cane and wheelchair., Kidney disease with dialysis TUTHSA. Hx Pancreatitis., Legally blind, some trouble hearing. Enlarged prostate, trouble urinating. , hx of recent uti's., anemia., constipation Last Myocardial Infarction Date:: 02/2023 History of Any Multi-Drug Resistant Organisms: None Reported Past Surgical History: Cholecystectomy, Heart Catheterization, Heart Catheterization With Stent, Heart Catheterization With Stent, Hernia Repair, Prostate Surgery Additional Past Surgical History / Comment(s): Dialysis Port Placed - 03/14/23, HIATAL HERNIA REPAIR - 01/23/21., states hx 5 heart caths with 5 stents. Past Anesthesia/Blood Transfusion Reactions: No Reported Reaction Additional Past Anesthesia/Blood Transfusion Reaction / Comment(s): . Date of Last Stent Placement:: 05/07/23 Past Psychological History: Anxiety, Depression Additional Psychological History / Comment(s): Pt resides with his spouse. He uses a quad cane or walker to ambulate. He is legally blind. He reads minimally with magnifying glass and signs his name only now. His spouse drives him to [employer]. Smoking Status: Never smoker Past Alcohol Use History: None Reported Past Drug Use History: None Reported - Past Family History Mother Family Medical History: CVA/TIA, Diabetes Mellitus, Hypertension Additional Family Medical History / Comment(s): Parkinson's. Father Family Medical History: CVA/TIA, Diabetes Mellitus, Myocardial Infarction ([place]) Additional Family Medical History / Comment(s): Father of a WI in his 50s. Medications and Allergies Home Medications Medication Instructions Recorded Confirmed Type Pantoprazole [Protonix] 40 mg PO BID 11/05/17 06/16/24 History Tamsulosin [Flomax] 0.4 mg PO BID 11/05/17 06/16/24 History Citalopram Hydrobromide [CeleXA] 20 mg PO DAILY 12/12/18 06/16/24 History allopurinoL [Zyloprim] 100 mg PO DAILY 04/05/19 06/16/24 History Atorvastatin [Lipitor] 80 mg PO HS 12/30/19 06/16/24 History Citalopram Hydrobromide [CeleXA] 40 mg PO DAILY 06/29/20 06/16/24 History Folic Acid/Vit B Complex and C 0.8 mg PO DAILY 05/05/23 06/16/24 History [Nephro-Cirilo Tablet] Losartan [Cozaar] 25 mg PO DAILY 09/19/23 06/16/24 History Metoprolol Succinate (ER) [Toprol 50 mg PO DAILY 09/19/23 06/16/24 History XL] Ranolazine [Ranexa] 500 mg PO Q12HR #60 tab 09/21/23 06/16/24 Rx Furosemide [Lasix] 80 mg PO DAILY 10/16/23 06/16/24 History Nitroglycerin Sl Tabs [Nitrostat] 0.4 mg SL Q5M PRN 10/16/23 06/16/24 History hydrALAZINE HCL [Apresoline] 50 mg PO TID 04/12/24 06/16/24 History Calcium Carbonate [Tums] 500 mg PO TID 06/16/24 06/16/24 History Clopidogrel [Plavix] 75 mg PO DAILY 06/16/24 06/16/24 History NIFEdipine XL [Procardia XL] 60 mg PO DAILY 06/16/24 06/16/24 History Allergies Allergy/AdvReac Type Severity Reaction Status Date / Time hydromorphone AdvReac Confusion Verified 06/16/24 15:59 Iodinated Contrast Media AdvReac Nausea & Verified 06/16/24 15:59 [Iodinated Contrast- Oral Vomiting and IV Dye] morphine AdvReac Vomiting Verified 06/16/24 15:59 sucralfate AdvReac Nausea & Verified 06/16/24 15:59 Vomiting Physical Exam Vitals: Vital Signs Temp Pulse Pulse Resp BP BP Pulse Ox 06/17/24 07:00 98.2 F 74 17 148/74 96 06/17/24 06:40 73 98 06/17/24 02:00 72 06/17/24 01:27 98.3 F 72 16 139/72 100 06/16/24 22:32 87 06/16/24 22:01 87 171/79 100 06/16/24 21:30 98.2 F 92 18 204/95 100 06/16/24 21:02 85 18 176/86 100 06/16/24 20:09 87 18 181/81 100 06/16/24 19:09 87 16 157/86 99 06/16/24 17:02 89 22 167/85 100 06/16/24 15:30 86 20 158/89 100 06/16/24 15:00 86 18 164/81 100 06/16/24 14:42 98.0 F 89 18 178/87 100 Intake and Output 06/16/24 06/17/24 06/17/24 22:59 06:59 14:59 Other: Voiding Method Urinal # Voids 1 Weight 79.379 kg Results - Lab Results Most recent lab results Calcium 7.8 mg/dL (8.7-10.3) L 06/17/24 03:24 Magnesium 1.7 mg/dL (1.6-2.3) 06/16/24 15:03 06/17/24 03:24 06/17/24 03:24 Assessment and Plan Plan: Assessment: 1. End-stage renal disease maintained on hemodialysis on Thursday schedule via AV fistula. 2. Chest pain. Await cardiology recommendations. Potential cardiac cath this admission. 3. Coronary disease with stents. 4. Diabetes mellitus. 5. Anemia of chronic kidney disease. 6. Hypertension with chronic kidney disease. Plan: Hemodialysis tomorrow. Check iron studies. Follow-up echocardiogram. Thank you for the consultation. I will continue to follow the patient with you during his hospital stay.
[2024-06-17] MEDS: ATORVASTATIN 80 MG TAB PO STA (10:53)
[2024-06-17] MEDS: ASPIRIN 325 MG TAB PO STA (10:53)
[2024-06-17] MEDS: SODIUM CHLORIDE 0.9% 1,000 ML IV SCH (10:54)
[2024-06-17] MEDS: IV FLUID CONTINUATION 1,000 ML IV ONE (11:16)
[2024-06-17] MEDS: methylPREDNISolone SOD SUCCI 125 MG/2 ML VIAL IVP ONE (11:33)
[2024-06-17] MEDS: LIDOCAINE 1% INJ 10MG/ML (20 ML MDV) SQ ONE (11:34)
[2024-06-17] MEDS: HEPARIN SODIUM,PORCINE 10,000 UNIT in SODIUM CHLORIDE 0.9% 1,000 ML IRRIGATION ONE (11:34)
[2024-06-17] MEDS: diphenhydrAMINE 50 MG/ML 1 ML VIAL IVP ONE (11:34)
[2024-06-17] MEDS: HEPARIN SODIUM,PORCINE (1 ML) 2,500 UNIT in SODIUM CHLORIDE 0.9% 250 ML IRRIGATION ONE (11:35)
[2024-06-17] MEDS: IOPAMIDOL-370 100ML BTL INJ ONE (11:48)
[2024-06-17] MEDS: NITROGLYCERIN SL TABS 0.4 MG TAB SUBLINGUAL ONE (11:51)
--- NOTE | 2024-06-17 12:07 | P.CARDCATH ---
Date of Procedure: 06/17/24 Description of Procedure: History: This is a 58-year-old gentleman with history of diabetes end-stage renal disease on hemodialysis, hypertension hyperlipidemia and CAD. In October and November 2017 I performed stenting of circumflex and LAD. An year later it was still patent both vessels were patent in 2018. However in 2022 I performed a cardiac cath because of unstable angina and he had a significant area of stenosis proximal to the previous mid LAD stent. I performed repeat stenting of this area and dilated to the entire stented area with a 3.5 caliber balloon and performed shockwave lithotripsy. Patient now presents to the hospital with chest pain suggestive of angina with no significant troponin rise but symptoms suggestive of angina. He was seen by Dr. Garcia advised cardiac catheterization. I saw the patient discussed with him the rationale risks benefits options and he wished to proceed with the procedure. Patient was referred for cardiac catheterization to evaluate for CAD. There was a question of contrast allergy patient was given Benadryl 12.5 mg IV push and Solu-Medrol 75 mg IV push Procedure Details: The risks, benefits, complications, treatment options, and expected outcomes were discussed with the patient. The patient and/or family concurred with the proposed plan, giving informed consent. Patient was brought to the label operator after IV hydration was begun and oral premedication was given. Patient was further sedated with midazolam. Patient was prepped and draped in the usual manner. Under strict aseptic precautions and local anesthesia a 6 Angolan introducer was placed in the right femoral artery. Using standard Anny catheters I performed coronary jay ography and the same right catheter was used to check LV pressures but LV gram was not performed. Following the procedure the sheath was taken out and manual compression used to secure hemostasis and FemoStop applied and he was sent to the room in stable condition. Moderate conscious sedation time was 16 minutes. Patient was administered Versed. Oxygen saturation emergency and EKG were monitored closely. Findings: Hemodynamics: Left ventricle end-diastolic pressure was 11 mmHg with gradient of less than 10 mm across the aortic valve on pullback Left Main: Short patent disease-free vessel that bifurcates into LAD and circumflex LAD: [Good caliber vessel extends along the anterior wall previous stented segment is widely patent with remarkably good flow. In the midportion at the junction of the middle and distal one third there is a 60% narrowing and then there is diffuse disease all the way towards the apex. However the stented segments are widely patent and there are several septal branches that, from the LAD free of significant disease CIRC: Dominant vessel widely patent at the site of stenting both in the proximal and distal portion minor irregularities no significant disease RCA: Totally occluded in the proximal portion without much antegrade flow similar to the previous angiogram from April 2023. Some collaterals from the left system especially the LAD are filling the distal branches of RCA LV: LV gram not performed Closure Device: Compression and FemoStop Complications: None Estimated Blood Loss: Minimal Impression: Codominant system totally occluded RCA and normal filling pressures and no gradient widely patent stent in the LAD and circumflex. Distal one third of LAD has diffuse disease Pre Procedure Diagnosis: Unstable angina with CAD Final Post Procedure Diagnosis: Unstable angina with single-vessel CAD. Diffuse disease in the distal LAD widely patent LAD and circumflex stents Recommendation: Continued medical therapy with risk factor modification Complications: None; patient tolerated the procedure well. Disposition: Pacu - hemodynamically stable. Condition: Stable Discharge Disposition: Discharge patient home later on today.
[2024-06-17 12:31] LABS: Glucose,Whole Blood 201 mg/dL (70-110)
[2024-06-17] MEDS: diphenhydrAMINE 25 MG CAP PO PRN (13:32)
[2024-06-17] MEDS ORDERED: RX INFO: IV CONTRAST WAS GIVEN 1 EACH MISC MISCELLANE PRN (14:42)
[2024-06-17 17:04] LABS: Glucose,Whole Blood 409 mg/dL (70-110)
[2024-06-17 17:14] LABS: % Iron Saturation 43.53 (15.00-50.00)
[2024-06-17] MEDS: INSULIN ASPART (NovoLOG) 100 UNIT/ML VIAL SQ ONE (17:48)
[2024-06-17 20:14] LABS: Glucose,Whole Blood 411 mg/dL (70-110)
[2024-06-17] MEDS: INSULIN DETEMIR (LEVEMIR) 100 UNIT/ML SYR SQ SCH (20:59)
--- NOTE | 2024-06-17 21:25 | CONS ---
CONSULTATION CHIEF COMPLAINT: Chest pain. HISTORY OF PRESENT ILLNESS: Kashmir is a 58-year-old gentleman with history of coronary artery disease, status post prior angioplasty with stent placement of LAD, end-stage renal disease, on hemodialysis, dyslipidemia, and hypertension, who is admitted to hospital with chest pain. The patient had episodes of precordial chest pressure during dialysis due to which he is brought in and continued to have on and off episodes of chest pain through last night. His troponin is mildly elevated at 0.04. The first 2 troponins are normal. EKG shows sinus rhythm with changes of left ventricular hypertrophy. Given his known coronary artery disease and tdf-EA-syphwih elevation IL, I advised the patient to undergo cardiac catheterization for further evaluation. He was explained of risks, benefits, and alternatives, understood and accepted. PAST MEDICAL HISTORY: Significant for coronary artery disease, status post angioplasty, hypertension, dyslipidemia. MEDICATIONS AT HOME: Included; 1. Hydralazine 50 t.i.d. 2. Ranexa 500 b.i.d. 3. Procardia XL. 4. Lipitor. 5. Toprol-XL. 6. Cozaar. 7. Lasix. 8. Plavix. 9. Celexa. ALLERGIES: To IV dye and hydromorphone. FAMILY HISTORY: Negative for premature coronary artery disease. SOCIAL HISTORY: Negative for current smoking, EtOH abuse, or drug abuse. REVIEW OF SYSTEMS: 14 out of 14 review of systems have been performed, pertinents are as documented. PHYSICAL EXAMINATION: GENERAL: Comfortable at rest. VITAL SIGNS: Stable. NECK: There is no jugular venous distention. Carotid upstroke is normal. There is no bruit. CHEST: Reveals good air entry bilaterally. HEART: Reveals first and second heart sounds. No gallop. No murmur. ABDOMEN: Soft, nontender. EXTREMITIES: Did not reveal any edema. Peripheral pulses are felt. ASSESSMENT: Acute non ST-segment elevation myocardial infarction. PLAN: I advised the patient to undergo cardiac catheterization by Dr. Avendaño. MMODL / IJN: [id number] /
[2024-06-17] MEDS ORDERED: INSULIN ASPART (NovoLOG) 100 UNIT/ML VIAL SQ SCH (22:07)
[2024-06-17 23:46] LABS: Glucose,Whole Blood 131 mg/dL (70-110)
--- NOTE | 2024-06-18 02:25 | HP ---
HISTORY AND PHYSICAL CHIEF COMPLAINT: Chest pain. HISTORY OF PRESENT ILLNESS: This is a 58-year-old gentleman with a past medical history of CAD, end-stage renal disease and multiple complex medical issues, on hemodialysis, complaining of chest pain in the anterior part of chest. The patient came to [facility] and troponins found to be 0.044. Cardiology performed a cardiac catheterization, which showed diffuse narrowing of RCA with single-vessel disease and recommended diffuse disease of the distal LAD with mildly patent LAD and circumflex stents. The patient was recommended medical treatment. The patient is still complaining of chest pain. There is no history of any fever, rigors, or chills. PAST MEDICAL HISTORY: History of end-stage renal disease, history of CVA, TIA, CAD. Rest of the history and rest of the chart is also reviewed. HOME MEDICATIONS: Reviewed include apresoline. Dose and rest of medications reviewed. ALLERGIES: Hydromorphone. FAMILY HISTORY: History of diabetes mellitus in the family and Parkinson's. SOCIAL HISTORY: No history of smoking or alcohol. REVIEW OF SYSTEMS: Fourteen-point review of systems is negative except as mentioned earlier. PHYSICAL EXAMINATION: VITAL SIGNS: Pulse is 75, blood pressure 160/70, respirations 16. HEENT: Conjunctivae normal. NECK: No JVD. CARDIOVASCULAR: S1, S2. RESPIRATIONS: Breath sounds diminished at the bases. No rhonchi. ABDOMEN: Soft, nontender. LEGS: No edema. NERVOUS SYSTEM: Nonfocal. SKIN: No ulcer, rash, bleeding. JOINTS: No active deforming arthropathy. LABORATORY DATA: Hemoglobin 9.4. Rest of the labs are noted. ASSESSMENT: 1. Coronary artery disease, chest pain with possible acute non ST segment elevation myocardial infarction. Cardiac cath showing diffuse disease. Recommend medical management. 2. End-stage renal disease, on hemodialysis. 3. Diabetes mellitus, type 2. 4. Hypertension. 5. Hyperlipidemia. 6. Multiple complex medical issues. RECOMMENDATIONS AND DISCUSSION: This is a 58-year-old gentleman, who presented with multiple medical issues. At this time, I recommend to continue current medical management. Otherwise, closely follow with Cardiology, Nephrology, possible hemodialysis. Guarded prognosis because of multiple complex medical issues. Further recommendations to follow. See orders for further details. Symptomatic treatment of the pain. MMODL / IJN: [id number] /
[2024-06-18 06:09] LABS: Glucose,Whole Blood 144 mg/dL (70-110)
[2024-06-18] MEDS ORDERED: HEPARIN SODIUM,PORCINE (1 ML) 2,500 UNIT in SODIUM CHLORIDE 0.9% 250 ML IRRIGATION PRN (07:00)
[2024-06-18] MEDS ORDERED: HEPARIN SODIUM,PORCINE 10,000 UNIT in SODIUM CHLORIDE 0.9% 1,000 ML IRRIGATION PRN (07:00)
[2024-06-18 07:47] LABS: Potassium 3.8 mmol/L (3.5-5.1)
[2024-06-18 07:48] LABS: African American GFR (CKD) 12 (>60 ml/min/1.73 sqM); Anion Gap 14 mmol/L; Blood Urea Nitrogen 57 mg/dL (9-20); Calcium 7.6 mg/dL (8.4-10.2); Carbon Dioxide 24 mmol/L (22-30); Chloride 94 mmol/L (98-107); Glucose 132 mg/dL (74-99); Non-African American GFR(CKD) 10 (>60 ml/min/1.73 sqM); Sodium 132 mmol/L (137-145)
[2024-06-18] MEDS: ASPIRIN 81 MG PO SCH (08:45)
[2024-06-18] MEDS: CLOPIDOGREL 75 MG TAB PO SCH (08:45)
[2024-06-18 09:19] LABS: Basophils # (A) 0.02 X 10*3/uL (0.00-0.10); Basophils % (A) 0.2 %; Eosinophils # (A) 0.09 X 10*3/uL (0.04-0.35); Eosinophils % (A) 0.8 %; HCT 29.2 % (39.6-50.0); HGB 9.4 g/dL (13.0-17.0); Lymphocytes # (A) 1.15 X 10*3/uL (0.90-5.00); Lymphocytes % (A) 9.9 %; MCH 28.6 pg (27.0-32.0); MCHC 32.2 g/dL (32.0-37.0); MCV 88.8 FL (80.0-97.0); Monocytes # (A) 0.82 X 10*3/uL (0.20-1.00); Monocytes % (A) 7.1 %; NRBC Per 100 WBC 0 X 10*3/uL (0.00-0.01); Neutrophils # (A) 9.47 X 10*3/uL (1.80-7.70); Neutrophils % (A) 81.7 %; Platelet Count 120 X 10*3/uL (140-440); RBC 3.29 X 10*6/uL (4.40-5.60); RDW 14.6 % (11.5-14.5); WBC 11.59 X 10*3/uL (4.50-10.00)
[2024-06-18 10:03] LABS: Appearance,Urine Clear (Clear); Bilirubin,Urine Negative (Negative); Blood,Urine Negative (Negative); Color,Urine Yellow; Glucose,Urine (UA) 3+ (Negative); Hyaline Casts,Urine 1 /lpf (0-2); Ketones,Urine Negative (Negative); Leukocyte Esterase,Urine Negative (Negative); Mucus,Urine Rare /hpf; Nitrite,Urine Negative (Negative); PH, Urine 5.5 (5.0-8.0); Protein,Urine 2+ (Negative); RBC,Urine <1 /hpf (0-5); Specific Gravity,Urine 1.021 (1.001-1.035); Urobilinogen,Urine <2.0 mg/dL (<2.0); WBC,Urine 2 /hpf (0-5)
--- NOTE | 2024-06-18 11:31 | CA ---
Transthoracic Echo Report Name: Kashmir Tinajero Age: 58 Gender: M : 1965 Exam Date: 06/18/2024 07:49 Exam Location: [facility] Ht (in): 69 Wt (lb): 175 Ordering Physician: Parish Garcia MD ([id number]) Attending/Referring Phys: Radha COTTER [employer] Sql Developer Maya Woods RDCS Procedure CPT: Indications: Chest Pain Cardiac Hx: Technical Quality: Fair Contrast 1: Total Dose (mL): Contrast 2: Total Dose (mL): MEASUREMENTS (Male / Female) Normal Values 2D ECHO LV Diastolic Diameter PLAX 4.7 cm 4.2 - 5.9 / 3.9 - 5.3 cm LV Systolic Diameter PLAX 3.2 cm IVS Diastolic Thickness 1.2 cm 0.6 - 1.0 / 0.6 - 0.9 cm LVPW Diastolic Thickness 1.2 cm 0.6 - 1.0 / 0.6 - 0.9 cm LV Relative Wall Thickness 0.5 LVOT Diameter 2.0 cm LV Diastolic Volume MOD BP 125.0 cm??? 67 - 155 / 56 - 104 cm??? LV Systolic Volume MOD BP 52.3 cm??? 22 - 58 / 19 - 49 cm??? LV Ejection Fraction MOD BP 58.1 % >= 55 % LV Cardiac Index MOD BP 2720.0 cm???/min???m??? LV Diastolic Volume MOD 4C 127.3 cm??? LV Systolic Volume MOD 4C 46.0 cm??? LV Ejection Fraction MOD 4C 63.9 % LV Cardiac Index MOD 4C 3042.7 cm???/min???m??? LV Diastolic Length 4C 8.8 cm LV Systolic Length 4C 6.2 cm LV Diastolic Volume MOD 2C 120.5 cm??? LV Systolic Volume MOD 2C 48.2 cm??? LV Ejection Fraction MOD 2C 60.0 % LV Cardiac Index MOD 2C 2703.9 cm???/min???m??? LV Diastolic Length 2C 9.0 cm LV Systolic Length 2C 7.8 cm DOPPLER AV Peak Velocity 224.1 cm/s AV Peak Gradient 20.1 mmHg AV Mean Velocity 147.5 cm/s AV Mean Gradient 10.1 mmHg AV Velocity Time Integral 45.6 cm LVOT Peak Velocity 140.5 cm/s LVOT Peak Gradient 7.9 mmHg LVOT Velocity Time Integral 31.8 cm LVOT Stroke Volume 104.3 cm??? LVOT Stroke Volume Index 53.4 ml/m??? LVOT Cardiac Index 3903.3 cm???/min???m??? AV Area Cont Eq vti 2.3 cm??? AV Area Cont Eq pk 2.1 cm??? PV Peak Velocity 116.3 cm/s PV Peak Gradient 5.4 mmHg FINDINGS Left Ventricle Left ventricular ejection fraction is estimated at 55-60 %. Mildly increased septal wall thickness. Left ventricular cavity size normal. No obvious regional wall motion abnormalities. Right Ventricle Normal right ventricular size and function. Unable to estimate the right ventricular systolic pressure. Right Atrium Normal right atrial size. Left Atrium Left atrial dilatation. Mitral Valve Structurally normal mitral valve. No evidence for mitral valve prolapse. No mitral stenosis. Trace mitral regurgitation. Aortic Valve Trileaflet aortic valve. Aortic valve sclerosis. No aortic valve stenosis or regurgitation. Tricuspid Valve Structurally normal tricuspid valve. No tricuspid stenosis. Trace tricuspid regurgitation. Pulmonic Valve Structurally normal pulmonic valve. No pulmonic stenosis. No pulmonic regurgitation. Pericardium No pericardial effusion. Aorta Normal size aortic root and proximal ascending aorta. CONCLUSIONS Normal LV function Previewed by: Dr. Parish Garcia MD (Electronically Signed) Final Date: 18 June 2024 11:30
[2024-06-18 11:48] VITALS: BMI 25.8
[2024-06-18 12:25] LABS: Glucose,Whole Blood 311 mg/dL (70-110)
--- NOTE | 2024-06-18 14:44 | P.PN ---
Subjective Progress Note Date: 06/18/24 Seen in follow-up for end-stage renal disease. Still some chest pain improved with nitro patch. Plannign go home after HD today. Vital signs are stable. General: No acute distress. HEENT: Head exam is unremarkable. LUNGS: No audible rhonchi or wheezes. HEART: Rate and Rhythm are regular. ABDOMEN: Nontender. EXTREMITITES: No edema. Objective - Vital Signs Vital signs: Vital Signs Temp 97.7 F 06/18/24 08:09 Pulse 74 06/18/24 08:09 Resp 15 06/18/24 08:09 BP 156/71 06/18/24 08:09 Pulse Ox 97 06/18/24 08:09 FiO2 Intake & Output 06/17/24 06/18/24 06/18/24 18:59 06:59 18:59 Intake Total 175 222 Output Total 100 950 Balance 175 -100 -728 Weight 79.379 kg Intake: IV 175 Oral 222 Output: Urine 100 950 Coude 750 Other: Voiding Method Urinal # Voids 2 1 # Bowel Movements 0 - Labs CBC & Chem 7: 06/18/24 07:09 06/18/24 07:09 Labs: Abnormal Lab Results - Last 24 Hours (Table) 06/17/24 06/17/24 06/17/24 Range/Units 03:24 17:02 20:12 WBC (4.50-10.00) X 10*3/uL RBC (4.40-5.60) X 10*6/uL Hgb (13.0-17.0) g/dL Hct (39.6-50.0) % RDW (11.5-14.5) % Plt Count (140-440) X 10*3/uL MPV (9.5-12.2) FL Neutrophils # (1.80-7.70) X 10*3/uL Sodium (137-145) mmol/L Chloride (98-107) mmol/L BUN (9-20) mg/dL Creatinine (0.66-1.25) mg/dL Glucose (74-99) mg/dL POC Glucose (mg/dL) 409 H 411 H (70-110) mg/dL Calcium (8.4-10.2) mg/dL Transferrin 182.0 L (204.0-354.0) mg/dL Ferritin 1479.0 H (22.0-322.0) ng/mL Urine Protein (Negative) Urine Glucose (UA) (Negative) Urine Mucus (None) /hpf 06/17/24 06/18/24 06/18/24 Range/Units 23:45 06:01 07:09 WBC 11.59 H (4.50-10.00) X 10*3/uL RBC 3.29 L (4.40-5.60) X 10*6/uL Hgb 9.4 L (13.0-17.0) g/dL Hct 29.2 L (39.6-50.0) % RDW 14.6 H (11.5-14.5) % Plt Count 120 L (140-440) X 10*3/uL MPV 9.0 L (9.5-12.2) FL Neutrophils # 9.47 H (1.80-7.70) X 10*3/uL Sodium (137-145) mmol/L Chloride (98-107) mmol/L BUN (9-20) mg/dL Creatinine (0.66-1.25) mg/dL Glucose (74-99) mg/dL POC Glucose (mg/dL) 131 H 144 H (70-110) mg/dL Calcium (8.4-10.2) mg/dL Transferrin (204.0-354.0) mg/dL Ferritin (22.0-322.0) ng/mL Urine Protein (Negative) Urine Glucose (UA) (Negative) Urine Mucus (None) /hpf 06/18/24 06/18/24 06/18/24 Range/Units 07:09 09:50 12:24 WBC (4.50-10.00) X 10*3/uL RBC (4.40-5.60) X 10*6/uL Hgb (13.0-17.0) g/dL Hct (39.6-50.0) % RDW (11.5-14.5) % Plt Count (140-440) X 10*3/uL MPV (9.5-12.2) FL Neutrophils # (1.80-7.70) X 10*3/uL Sodium 132 L (137-145) mmol/L Chloride 94 L (98-107) mmol/L BUN 57 H (9-20) mg/dL Creatinine 5.74 H (0.66-1.25) mg/dL Glucose 132 H (74-99) mg/dL POC Glucose (mg/dL) 311 H (70-110) mg/dL Calcium 7.6 L (8.4-10.2) mg/dL Transferrin (204.0-354.0) mg/dL Ferritin (22.0-322.0) ng/mL Urine Protein 2+ H (Negative) Urine Glucose (UA) 3+ H (Negative) Urine Mucus Rare H (None) /hpf Assessment and Plan Assessment: 1. End-stage renal disease maintained on hemodialysis on Thursday schedule via AV fistula. 2. Chest pain s/p cardac cath 06/17 with no intervention. 3. Coronary disease with stents. 4. Diabetes mellitus. 5. Anemia of chronic kidney disease. 6. Hypertension with chronic kidney disease. Plan: Hemodialysis today Clear for discharge afterwards
[2024-06-18 16:02] VITALS: RESP 16
[2024-06-18 17:37] LABS: Glucose,Whole Blood 175 mg/dL (70-110)
[2024-06-18 19:32] VITALS: BP 165/71; PULSE 71; TEMP 96.6
--- NOTE | 2024-06-20 09:08 | DS ---
DISCHARGE SUMMARY FINAL DIAGNOSES: 1. Coronary artery disease, chest pain with possible acute efy-RX-lfvoeav-elevation myocardial infarction, status post cardiac catheterization showing diffuse disease. Recommended medical treatment. 2. End-stage renal disease, on hemodialysis. 3. Diabetes mellitus, type 2. 4. Hypertension. 5. Hyperlipidemia. DISCHARGE DISPOSITION: The patient will be discharged in stable condition and guarded prognosis. Total time taken 35 minutes. HISTORY OF PRESENT ILLNESS: This 58-year-old gentleman admitted with chest pain and fpr-BY-kfyuvda-elevation myocardial infarction. Cardiac cath showed diffuse disease. Recommended medical management. 2D echo was showing normal LV function. The patient also had urinary obstruction. Flomax is given and I would also recommend indwelling catheter if the patient does not improve and outpatient followup with Urology. PHYSICAL EXAMINATION: VITAL SIGNS: Stable. CARDIOVASCULAR: S1 and S2. ABDOMEN: Soft. NERVOUS SYSTEM: No focal deficits. The patient will be discharged in stable and guarded prognosis. Recommend to continue with aspirin and Imdur and continue rest of medications. Refer to the medication reconciliation sheet for full medications. Follow up in 1 to 2 days. Follow up with Dr. Harris, Urology. Follow up with Cardiology and rest of medications as recommended. Cardiac team to follow. Once again, the patient will be discharged in stable condition and extremely guarded prognosis. MMODL / IJN: [id number] / RAJAN
--- NOTE | 2024-06-20 09:09 | CONS ---
CONSULTATION SUBJECTIVE: [place] is a 58-year-old gentleman with history of coronary artery disease, status post prior angioplasty, end-stage renal disease, on hemodialysis, who presented to hospital with non ST-segment elevation MS and underwent cardiac catheterization by Dr. MAC Avendaño that revealed widely patent LAD and circumflex stents, and the patient was advised optimal medical therapy. His access site in the groin appears normal. PHYSICAL EXAMINATION: GENERAL: Comfortable at rest. VITAL SIGNS: Stable. CHEST: Good air entry bilaterally. HEART: First and second heart sounds. No gallop. EXTREMITIES: Did not reveal any edema. Peripheral pulses are felt. PHYSICAL EXAMINATION: Potassium of 3.8, BUN is 57, creatinine is 5.7, hemoglobin is 9.4, platelet count is 120. ASSESSMENT AND PLAN: Unstable angina, status post cardiac cath. Medical therapy. The patient is stable for discharge from a cardiac standpoint. MMTIMOTHY / KAYRN: [id number] /
== END 2024-06-18 19:57 | disposition home or self-care (01) ==
LOC: EC 14:34 → 6NMEDSUR 16:30
PROVIDERS: ADMIT Internal Medicine; ATTEND Internal Medicine
DX: I25.110 Atherosclerotic heart disease of native coronary artery with unstable angina pectoris (principal); I25.82 Chronic total occlusion of coronary artery; I12.9 Hypertensive chronic kidney disease with stage 1 through stage 4 chronic kidney disease, or unspecified chronic kidney disease; N18.6 End stage renal disease; E11.22 Type 2 diabetes mellitus with diabetic chronic kidney disease; E78.5 Hyperlipidemia, unspecified; D63.1 Anemia in chronic kidney disease; N13.9 Obstructive and reflux uropathy, unspecified; Z99.2 Dependence on renal dialysis; Z79.02 Long term (current) use of antithrombotics/antiplatelets; Z79.899 Other long term (current) drug therapy; Z79.82 Long term (current) use of aspirin; Z88.5 Allergy status to narcotic agent; Z88.8 Allergy status to other drugs, medicaments and biological substances; Z91.041 Radiographic dye allergy status; Z95.5 Presence of coronary angioplasty implant and graft
CPT/HCPCS: 96376; 90935; 96374; 96375; 99285; 36415; 93005 ×2; 93308; 93458; 83880; 80053; 80048 ×2; 82728; 83540; 83550; 83735; 84484; 85025 ×3; 85610; 85730; 81001; 83036; 71046; G0378 ×3; C1769 ×2; C1894; J2270 ×2; J1200; J1644 ×2; J2405 ×2; J2003; Q9967; J2919

== ENCOUNTER 2024-06-19 19:17 | Inpatient (IN) | payer MEDICARE ==
--- NOTE | 2024-06-19 19:42 | ED ---
Male Urogenital HPI - General Source: patient, RN notes reviewed Mode of arrival: EMS Limitations: no limitations - History of Present Illness Onset/Timin -: days(s) <Charles Aguilar - Last Filed: 06/19/24 19:39> - General Source: patient, RN notes reviewed, old records reviewed Mode of arrival: EMS Limitations: no limitations - History of Present Illness MD Complaint: dysuria -: days(s) Location: penis Severity: moderate Severity scale (1-10): 4 Consistency: constant Improves with: none Worsens with: none indwelling catheter Reports: urinary retention, blood in urine, incontinence <Dylon Sim - Last Filed: 06/27/24 21:26> - General Chief complaint: Urogenital Stated complaint: weakness; chest pain; nvd Time Seen by Provider: 06/19/24 19:30 - History of Present Illness Initial comments: Quick note: This is a 58-year-old male with history of CAD, DM, CVA, AMI, renal problems presenting via EMS complaining of decreased output from Garcia catheter since discharge from hospital yesterday. Patient states he was discharged after recent admission and subsequent heart catheterization yesterday. Endorses throbbing abdominal pain (03/01) throughout the entirety of his abdomen associated nausea/vomiting and blood in his vomit yesterday. (Charles Aguilar) This is a 58 male to ER for evaluation complex medical history and significant recent Garcia catheter placed with UTI (Dylon Sim) - Related Data Home Medications Medication Instructions Recorded Confirmed Pantoprazole [Protonix] 40 mg PO BID 11/05/17 06/20/24 Tamsulosin [Flomax] 0.4 mg PO BID 11/05/17 06/20/24 Citalopram Hydrobromide [CeleXA] 20 mg PO DAILY 12/12/18 06/20/24 allopurinoL [Zyloprim] 100 mg PO DAILY 04/05/19 06/20/24 Atorvastatin [Lipitor] 80 mg PO HS 12/30/19 06/20/24 Citalopram Hydrobromide [CeleXA] 40 mg PO DAILY 06/29/20 06/20/24 Folic Acid/Vit B Complex and C 0.8 mg PO DAILY 05/05/23 06/20/24 [Nephro-Cirilo Tablet] Losartan [Cozaar] 25 mg PO DAILY 09/19/23 06/20/24 Metoprolol Succinate (ER) [Toprol 50 mg PO DAILY 09/19/23 06/20/24 XL] Furosemide [Lasix] 80 mg PO DAILY 10/16/23 06/20/24 Nitroglycerin Sl Tabs [Nitrostat] 0.4 mg SL Q5M PRN 10/16/23 06/20/24 hydrALAZINE HCL [Apresoline] 50 mg PO TID 04/12/24 06/20/24 Calcium Carbonate [Tums] 500 mg PO TID 06/16/24 06/20/24 Clopidogrel [Plavix] 75 mg PO DAILY 06/16/24 06/20/24 NIFEdipine XL [Procardia XL] 60 mg PO DAILY 06/16/24 06/20/24 Aspirin 81 mg PO DIRECTED 06/20/24 06/20/24 Previous Rx's Medication Instructions Recorded Ranolazine [Ranexa] 500 mg PO Q12HR #60 tab 09/21/23 Isosorbide Mononitrate ER [Imdur] 15 mg PO DAILY #0 06/24/24 Loratadine [Claritin] 10 mg PO DAILY #30 tab 06/24/24 Midodrine [ProAmatine] 5 mg PO DAILY PRN #30 tab 06/24/24 Oxymetazoline 0.05% Nasl Hope 2 spray NASAL BID PRN #1 dispenser 06/24/24 [Afrin 0.05% Nasal Hope] Allergies Allergy/AdvReac Type Severity Reaction Status Date / Time hydromorphone AdvReac Confusion Verified 06/20/24 09:34 Iodinated Contrast Media AdvReac Nausea & Verified 06/20/24 09:34 [Iodinated Contrast- Oral Vomiting and IV Dye] morphine AdvReac Vomiting Verified 06/20/24 09:34 sucralfate AdvReac Nausea & Verified 06/20/24 09:34 Vomiting Review of Systems ROS Other: All systems not noted in ROS Statement are negative. <Charles Aguilar - Last Filed: 06/19/24 19:39> ROS Other: All systems not noted in ROS Statement are negative. <Dylon Sim - Last Filed: 06/27/24 21:26> ROS Statement: Those systems with pertinent positive or pertinent negative responses have been documented in the HPI. Past Medical History Past Medical History: Coronary Artery Disease (CAD), Chest Pain / Angina, CVA/TIA, Diabetes Mellitus, Eye Disorder, GERD/Reflux, Hearing Disorder / Deafness, Hyperlipidemia, Hypertension, Myocardial Infarction (AK), Prostate Disorder, Renal Disease, Rheumatoid Arthritis (RA) Additional Past Medical History / Comment(s): AK X2 in 2014 and 02/2023., 02 3L/NC., Hx stroke Apr 2017. , hx tia's ., left side weakness., Migranes., Diabetic neuropathy arms and legs, tremors off and on, circulation problems, uses quad cane and wheelchair., Kidney disease with dialysis [facility]. Hx Pancreatitis., Legally blind, some trouble hearing. Enlarged prostate, trouble urinating. , hx of recent uti's., anemia., constipation Last Myocardial Infarction Date:: 02/2023 History of Any Multi-Drug Resistant Organisms: None Reported Past Surgical History: Cholecystectomy, Heart Catheterization, Heart Catheterization With Stent, Heart Catheterization With Stent, Hernia Repair, Prostate Surgery Additional Past Surgical History / Comment(s): Dialysis Port Placed - 03/14/23, HIATAL HERNIA REPAIR - 01/23/21., states hx 5 heart caths with 5 stents. Past Anesthesia/Blood Transfusion Reactions: No Reported Reaction Additional Past Anesthesia/Blood Transfusion Reaction / Comment(s): . Date of Last Stent Placement:: 05/07/23 Past Psychological History: Anxiety, Depression Smoking Status: Never smoker Past Alcohol Use History: None Reported Past Drug Use History: None Reported - Past Family History Mother Family Medical History: CVA/TIA, Diabetes Mellitus, Hypertension Additional Family Medical History / Comment(s): Parkinson's. Father Family Medical History: CVA/TIA, Diabetes Mellitus, Myocardial Infarction (AK) Additional Family Medical History / Comment(s): Father of a AK in his 50s. <Charles Aguilar - Last Filed: 06/19/24 19:39> General Exam <Charles Aguilar - Last Filed: 06/19/24 19:39> General appearance: alert, in no apparent distress Head exam: Present: atraumatic, normocephalic, normal inspection Eye exam: Present: normal appearance, PERRL, EOMI. Absent: scleral icterus, conjunctival injection, periorbital swelling ENT exam: Present: normal exam, mucous membranes moist Neck exam: Present: normal inspection. Absent: tenderness, meningismus, lymphadenopathy Respiratory exam: Present: normal lung sounds bilaterally. Absent: respiratory distress, wheezes, rales, rhonchi, stridor Cardiovascular Exam: Present: regular rate, normal rhythm, normal heart sounds. Absent: systolic murmur, diastolic murmur, rubs, gallop, clicks GI/Abdominal exam: Present: soft, normal bowel sounds. Absent: distended, tenderness, guarding, rebound, rigid Extremities exam: Present: normal inspection, full ROM, normal capillary refill. Absent: tenderness, pedal edema, joint swelling, calf tenderness Back exam: Present: normal inspection Neurological exam: Present: alert, oriented X3, CN II-XII intact Psychiatric exam: Present: normal affect, normal mood Skin exam: Present: warm, dry, intact, normal color. Absent: rash <Dylon Sim - Last Filed: 06/27/24 21:26> - General Exam Comments Initial Comments: Visual Physical Exam Vital signs reviewed General: Well-appearing, nontoxic, no acute distress. Patient seated in wheelchair Head: Normocephalic, atraumatic Eyes: PERRLA, EOMI ENT: Airway patent Chest: Nonlabored breathing Skin: No visual rash, normal skin tone Neuro: Alert and oriented 3 Musculoskeletal: No gross abnormalities (Charles Aguilar) Course <Dylon Sim - Last Filed: 06/27/24 21:26> Vital Signs 06/19/24 06/20/24 06/20/24 19:29 01:34 07:02 Temperature 97.9 F 98.6 F Pulse Rate 82 87 85 Respiratory 18 18 18 Rate Blood Pressure 177/68 173/100 186/87 O2 Sat by Pulse 100 98 99 Oximetry - Reevaluation(s) Reevaluation #1: 06/19/24 22:00 Medical records reviewed (Dylon Sim) Reevaluation #2: 06/19/24 22:00 Patient symptoms unchanged (Dylon Sim) Reevaluation #3: 06/19/24 22:00 Patient informed of results and questions answered urine (Dylon Sim) Reevaluation #4: Was pt. sent in by a medical professional or institution (, [facility], [employer] M[facility], urgent care, hospital, or prison...) When possible be specific @ -no Did you speak to anyone other than the patient for history (EMS, parent, family, police, friend...)? What history was obtained from this source @ -no Did you review nursing and triage notes (agree or disagree)? Why? @ -agree Are old charts reviewed (outside hosp., previous admission, EMS record, old EKG, old radiological studies, urgent care reports/EKG's, prison records)? Report findings @ -yes Differential Diagnosis (chest pain, altered mental status, abdominal pain women, abdominal pain men, vaginal bleeding, weakness, fever, dyspnea, syncope, headache, dizziness, GI bleed, back pain, seizure, CVA, palpatations, mental health, musculoskeletal)? @ -prior EKG interpreted by me (3pts min.). @ -yes X-rays interpreted by me (1pt min.). @ -yes negative for acute disease CT interpreted by me (1pt min.). @ -no U/S interpreted by me (1pt. min.). @ -no What testing was considered but not performed or refused? (CT, X-rays, U/S, labs)? Why? @ -none What meds were considered but not given or refused? Why? @ -none Did you discuss the management of the patient with other professionals (professionals i.e. , RADHA, [employer] [facility], lab, RT, psych nurse, social scientist, reconciliation coordinator, teacher, ground intelligence officer, pillowcase folder)? Give summary @ -no Was smoking cessation discussed for >3mins.? @ -no Was critical care preformed (if so, how long)? @ -no Were there social determinants of health that impacted care today? How? ( Homelessness, low income, unemployed, alcoholism, drug addiction, transportation, low edu. Level, literacy, decrease access to med. care, alf, rehab)? @ -none Was there de-escalation of care discussed even if they declined (Discuss DNR or withdrawal of care, Hospice)? DNR status @ -no What co-morbidities impacted this encounter? (DM, HTN, Smoking, COPD, CAD, Cancer, CVA, ARF, Chemo, Hep., AIDS, mental health diagnosis, sleep apnea, morbid obesity)? @ -none Was patient admitted / discharged? Hospital course, mention meds given and route, prescriptions, significant lab abnormalities, going to OR and other pertinent info. @ - 58 male here for evaluation positive UTI. Indwelling Garcia catheter will admit for IV antibiotics Admitted Undiagnosed new problem with uncertain prognosis? @ -no Drug Therapy requiring intensive monitoring for toxicity (Heparin, Nitro, Insulin, Cardizem)? @ -no Were any procedures done? @ -no Diagnosis/symptom? @ -UTI with indwelling Garcia Acute, or Chronic, or Acute on Chronic? @ -Acute Uncomplicated (without systemic symptoms) or Complicated (systemic symptoms)? @ -Complicated Side effects of treatment? @ -no Exacerbation, Progression, or Severe Exacerbation? @ -exacerbation Poses a threat to life or bodily function? How? (Chest pain, USA, AK, pneumonia, PE, COPD, DKA, ARF, appy, cholecystitis, CVA, Diverticulitis, Homicidal, Suicidal, threat to staff... and all critical care pts) @ -yes concerns for sepsis (Dylon Sim) Reevaluation #5: Differential Weakness: Hypoglycemia, shock, sepsis, hyponatremia, anemia, infection, AK, ETOH, adverse medicine reaction, overdose, stroke, this is not meant to be an all-inclusive list. (Dylon Sim) - Consultations Consultation #1: spoke w [facility] ok to admit the patient (Dylon Sim) Medical Decision Making <Charles Aguilar - Last Filed: 06/19/24 19:39> - Lab Data Result diagrams: 06/24/24 07:50 06/24/24 07:50 - EKG Data -: EKG Interpreted by Me (EKG sinus 82 FL 165 QRS 81 QTc 420) - Radiology Data Radiology results: report reviewed (CXR is negative for acute disease), image reviewed <Dylon Sim - Last Filed: 06/27/24 21:26> - Medical Decision Making I completed the quick note portion of this chart signed KHADIJAH Juarez (Charles Aguilar) 58 male here for evaluation positive UTI. Indwelling Garcia catheter will admit for IV antibiotics (Dylon Sim) - Lab Data Lab Results 06/19/24 06/19/24 06/19/24 Range/Units 20:00 20:24 20:24 WBC 8.3 (3.8-10.6) k/uL RBC 3.67 L (4.30-5.90) m/uL Hgb 10.7 L (13.0-17.5) gm/dL Hct 31.2 L (39.0-53.0) % MCV 85.1 (80.0-100.0) fL MCH 29.2 (25.0-35.0) pg MCHC 34.3 (31.0-37.0) g/dL RDW 15.4 (11.5-15.5) % Plt Count 118 L (150-450) k/uL MPV 8.6 Neutrophils % 80 % Lymphocytes % 12 % Monocytes % 6 % Eosinophils % 1 % Basophils % 0 % Neutrophils # 6.6 (1.3-7.7) k/uL Lymphocytes # 1.0 (1.0-4.8) k/uL Monocytes # 0.5 (0-1.0) k/uL Eosinophils # 0.1 (0-0.7) k/uL Basophils # 0.0 (0-0.2) k/uL Poikilocytosis Slight PT 10.5 (10.0-12.5) sec INR 0.9 (<1.2) APTT 21.4 L (22.0-30.0) sec Sodium (137-145) mmol/L Potassium (3.5-5.1) mmol/L Chloride (98-107) mmol/L Carbon Dioxide (22-30) mmol/L Anion Gap mmol/L BUN (9-20) mg/dL Creatinine (0.66-1.25) mg/dL Est GFR (CKD-EPI)AfAm (>60 ml/min/1.73 sqM) Est GFR (CKD-EPI)NonAf (>60 ml/min/1.73 sqM) Glucose (74-99) mg/dL Plasma Lactic Acid Preet (0.7-2.0) mmol/L Calcium (8.4-10.2) mg/dL Total Bilirubin (0.2-1.3) mg/dL AST (17-59) U/L ALT (4-49) U/L Alkaline Phosphatase (38-126) U/L Troponin I (0.000-0.034) ng/mL Total Protein (6.3-8.2) g/dL Albumin (3.5-5.0) g/dL Amylase (30-110) U/L Lipase (23-300) U/L Urine Color Light Yellow Urine Appearance Clear (Clear) Urine pH 6.5 (5.0-8.0) Ur Specific Groves 1.014 (1.001-1.035) Urine Protein 2+ H (Negative) Urine Glucose (UA) 4+ H (Negative) Urine Ketones Negative (Negative) Urine Blood Small H (Negative) Urine Nitrite Negative (Negative) Urine Bilirubin Negative (Negative) Urine Urobilinogen <2.0 (<2.0) mg/dL Ur Leukocyte Esterase Moderate H (Negative) Urine RBC 6 H (0-5) /hpf Urine WBC 39 H (0-5) /hpf Ur Squamous Epith Cells <1 (0-4) /hpf Hyaline Casts 5 H (0-2) /lpf Urine Mucus Rare H (None) /hpf Urine Yeast (Budding) Rare H (None) /hpf 06/19/24 06/19/24 06/19/24 Range/Units 20:30 20:30 20:30 WBC (3.8-10.6) k/uL RBC (4.30-5.90) m/uL Hgb (13.0-17.5) gm/dL Hct (39.0-53.0) % MCV (80.0-100.0) fL MCH (25.0-35.0) pg MCHC (31.0-37.0) g/dL RDW (11.5-15.5) % Plt Count (150-450) k/uL MPV Neutrophils % % Lymphocytes % % Monocytes % % Eosinophils % % Basophils % % Neutrophils # (1.3-7.7) k/uL Lymphocytes # (1.0-4.8) k/uL Monocytes # (0-1.0) k/uL Eosinophils # (0-0.7) k/uL Basophils # (0-0.2) k/uL Poikilocytosis PT (10.0-12.5) sec INR (<1.2) APTT (22.0-30.0) sec Sodium 131 L (137-145) mmol/L Potassium 5.9 H (3.5-5.1) mmol/L Chloride 93 L (98-107) mmol/L Carbon Dioxide 24 (22-30) mmol/L Anion Gap 14 mmol/L BUN 42 H (9-20) mg/dL Creatinine 4.27 H (0.66-1.25) mg/dL Est GFR (CKD-EPI)AfAm 17 (>60 ml/min/1.73 sqM) Est GFR (CKD-EPI)NonAf 14 (>60 ml/min/1.73 sqM) Glucose 246 H (74-99) mg/dL Plasma Lactic Acid Preet 1.5 (0.7-2.0) mmol/L Calcium 8.1 L (8.4-10.2) mg/dL Total Bilirubin 1.0 (0.2-1.3) mg/dL AST 44 (17-59) U/L ALT 29 (4-49) U/L Alkaline Phosphatase 106 (38-126) U/L Troponin I 0.028 (0.000-0.034) ng/mL Total Protein 7.8 (6.3-8.2) g/dL Albumin 4.8 (3.5-5.0) g/dL Amylase 86 (30-110) U/L Lipase 237 (23-300) U/L Urine Color Urine Appearance (Clear) Urine pH (5.0-8.0) Ur Specific Groves (1.001-1.035) Urine Protein (Negative) Urine Glucose (UA) (Negative) Urine Ketones (Negative) Urine Blood (Negative) Urine Nitrite (Negative) Urine Bilirubin (Negative) Urine Urobilinogen (<2.0) mg/dL Ur Leukocyte Esterase (Negative) Urine RBC (0-5) /hpf Urine WBC (0-5) /hpf Ur Squamous Epith Cells (0-4) /hpf Hyaline Casts (0-2) /lpf Urine Mucus (None) /hpf Urine Yeast (Budding) (None) /hpf Disposition <Charles Aguilar - Last Filed: 06/19/24 19:39> Is patient prescribed a controlled substance at d/c from ED?: No Time of Disposition: 22:00 <Dylon Sim - Last Filed: 06/27/24 21:26> Clinical Impression: UTI (urinary tract infection), ESRD (end stage renal disease) on dialysis, Nausea & vomiting Disposition: ADMITTED IP TO THIS HOSP Condition: Fair
--- NOTE | 2024-06-19 20:11 | XR ---
EXAMINATION TYPE: XR chest 2V DATE OF EXAM: 06/19/2024 8:03 PM COMPARISON: Chest radiographs from06/16/2024 CLINICAL INDICATION: Male, 58 years old with history of Upper abdominal pain, recent catheterization; TECHNIQUE: XR chest 2V Frontal and lateral views of the chest. FINDINGS: Lungs/Pleura: There is no evidence of pleural effusion, focal consolidation, or pneumothorax. Pulmonary vascularity: Unremarkable. Heart/mediastinum: Cardiomediastinal silhouette is unremarkable. Musculoskeletal: No acute osseous pathology. IMPRESSION: No acute cardiopulmonary disease/process. [facility], , 06/19/2024 8:09 PM
[2024-06-19 20:46] LABS: Basophils % (A) 0 %; Eosinophils # (A) 0.1 k/uL (0-0.7); Eosinophils % (A) 1 %; HCT 31.2 % (39.0-53.0); HGB 10.7 gm/dL (13.0-17.5); Lymphocytes % (A) 12 %; MCH 29.2 pg (25.0-35.0); MCHC 34.3 g/dL (31.0-37.0); MCV 85.1 fL (80.0-100.0); Mean Platelet Volume 8.6; Monocytes # (A) 0.5 k/uL (0-1.0); Monocytes % (A) 6 %; Neutrophils # (A) 6.6 k/uL (1.3-7.7); Neutrophils % (A) 80 %; Platelet Count 118 k/uL (150-450); Poikilocytosis Slight; RBC 3.67 m/uL (4.30-5.90); RDW 15.4 % (11.5-15.5); WBC 8.3 k/uL (3.8-10.6)
[2024-06-19 20:51] LABS: Appearance,Urine Clear (Clear); Bilirubin,Urine Negative (Negative); Blood,Urine Small (Negative); Budding Yeast,Urine Rare /hpf; Color,Urine Light Yellow; Glucose,Urine (UA) 4+ (Negative); Hyaline Casts,Urine 5 /lpf (0-2); Ketones,Urine Negative (Negative); Leukocyte Esterase,Urine Moderate (Negative); Mucus,Urine Rare /hpf; Nitrite,Urine Negative (Negative); PH, Urine 6.5 (5.0-8.0); Protein,Urine 2+ (Negative); RBC,Urine 6 /hpf (0-5); Specific Gravity,Urine 1.014 (1.001-1.035); Squamous Epithelial Cell,Urine <1 /hpf (0-4); Urobilinogen,Urine <2.0 mg/dL (<2.0); WBC,Urine 39 /hpf (0-5)
[2024-06-19 20:55] LABS: ALT 29 U/L (4-49); AST 44 U/L (17-59); African American GFR (CKD) 17 (>60 ml/min/1.73 sqM); Albumin 4.8 g/dL (3.5-5.0); Anion Gap 14 mmol/L; Blood Urea Nitrogen 42 mg/dL (9-20); Calcium 8.1 mg/dL (8.4-10.2); Carbon Dioxide 24 mmol/L (22-30); Chloride 93 mmol/L (98-107); Glucose 246 mg/dL (74-99); Non-African American GFR(CKD) 14 (>60 ml/min/1.73 sqM); Sodium 131 mmol/L (137-145); Total Protein 7.8 g/dL (6.3-8.2)
[2024-06-19 20:56] LABS: Alkaline Phosphatase 106 U/L (38-126); Amylase 86 U/L (30-110); Lipase 237 U/L (23-300)
[2024-06-19 20:59] LABS: Potassium 5.9 mmol/L (3.5-5.1)
[2024-06-19 21:01] LABS: INR 0.9 (<1.2); Prothrombin Time 10.5 sec (10.0-12.5)
[2024-06-19 21:14] LABS: Partial Thromboplastin Time 21.4 sec (22.0-30.0)
[2024-06-19] MEDS ORDERED: NALOXONE 0.4 MG/ML 1 ML VIAL IV PRN (21:57)
[2024-06-20] MEDS: ONDANSETRON 4 MG/2 ML VIAL IVP PRN (08:50)
[2024-06-20] MEDS: SODIUM CHLORIDE 0.9% 500 ML 500 ML IV STA (08:54)
[2024-06-20] MEDS: SODIUM CHLORIDE 0.9% 1,000 ML IV STA (08:55)
[2024-06-20 09:22] LABS: Basophils % (A) 0 %; Eosinophils # (A) 0.1 k/uL (0-0.7); Eosinophils % (A) 1 %; HCT 28.9 % (39.0-53.0); HGB 9.7 gm/dL (13.0-17.5); Lymphocytes % (A) 14 %; MCH 28.9 pg (25.0-35.0); MCHC 33.6 g/dL (31.0-37.0); MCV 86.2 fL (80.0-100.0); Mean Platelet Volume 6.8; Monocytes # (A) 0.5 k/uL (0-1.0); Monocytes % (A) 7 %; Neutrophils # (A) 5.6 k/uL (1.3-7.7); Neutrophils % (A) 77 %; Platelet Count 124 k/uL (150-450); RBC 3.36 m/uL (4.30-5.90); RDW 15.3 % (11.5-15.5); WBC 7.3 k/uL (3.8-10.6)
[2024-06-20 09:59] LABS: ALT 27 U/L (4-49); AST 27 U/L (17-59); African American GFR (CKD) 12 (>60 ml/min/1.73 sqM); Albumin 4.3 g/dL (3.5-5.0); Alkaline Phosphatase 132 U/L (38-126); Anion Gap 13 mmol/L; Blood Urea Nitrogen 47 mg/dL (9-20); Calcium 8.2 mg/dL (8.4-10.2); Carbon Dioxide 26 mmol/L (22-30); Chloride 96 mmol/L (98-107); Glucose 215 mg/dL (74-99); Magnesium 1.9 mg/dL (1.6-2.3); Non-African American GFR(CKD) 10 (>60 ml/min/1.73 sqM); Phosphorus 4.3 mg/dL (2.5-4.5); Potassium 3.7 mmol/L (3.5-5.1); Sodium 135 mmol/L (137-145); Total Bilirubin 0.6 mg/dL (0.2-1.3); Total Protein 6.9 g/dL (6.3-8.2)
[2024-06-20] MEDS: SODIUM CHLORIDE 0.9% 1,000 ML IV SCH (10:31)
[2024-06-20 11:32] LABS: Glucose,Whole Blood 213 mg/dL (70-110)
[2024-06-20] MEDS: PANTOPRAZOLE 40 MG/10 ML VIAL IVP SCH (12:35)
[2024-06-20] MEDS: METOCLOPRAMIDE 5 MG/ML 2 ML VIAL IVP PRN (12:35)
[2024-06-20] MEDS: TAMSULOSIN 0.4 MG CAP.ER.24H PO SCH (12:36)
[2024-06-20] MEDS: hydrALAZINE HCL 50 MG TAB PO SCH (12:36)
[2024-06-20] MEDS: CALCIUM CARBONATE 500 MG CHEWABLE PO SCH (12:36)
[2024-06-20] MEDS: CITALOPRAM HYDROBROMIDE 20 MG TAB PO SCH ×2 (12:36→12:45)
[2024-06-20] MEDS: ASPIRIN 81 MG PO SCH (12:36)
[2024-06-20] MEDS: allopurinoL 100 MG TAB PO SCH (12:37)
[2024-06-20] MEDS: METOPROLOL SUCCINATE (ER) 50 MG TAB.ER.24H PO SCH (12:37)
[2024-06-20] MEDS: FUROSEMIDE 80 MG TAB PO SCH (12:44)
[2024-06-20] MEDS: LOSARTAN 25 MG TAB PO SCH (12:44)
[2024-06-20] MEDS: RANOLAZINE 500 MG TAB.ER.12H PO SCH (12:44)
[2024-06-20] MEDS ORDERED: hydrALAZINE HCL 20 MG/ML 1 ML VIAL IVP PRN (12:46)
[2024-06-20] MEDS: FOLIC ACID-VIT B COMPLEX-VIT C 1 CAP PO SCH (13:09)
[2024-06-20] MEDS: ISOSORBIDE MONONITRATE ER 15 MG TAB PO SCH (13:09)
[2024-06-20 16:32] LABS: Glucose,Whole Blood 245 mg/dL (70-110)
[2024-06-20] MEDS: OXYMETAZOLINE 0.05% NASL SPRAY 1 SPRAY BOTTLE NASAL PRN (17:57)
[2024-06-20 20:06] LABS: Glucose,Whole Blood 300 mg/dL (70-110)
[2024-06-20] MEDS: ATORVASTATIN 80 MG TAB PO SCH (21:16)
--- NOTE | 2024-06-20 22:08 | P.CONS ---
History of Present Illness - Reason for Consult Consult date: 06/20/24 Urinary tract infection Requesting physician: Gabi Lazcano - Chief Complaint Lower abdominal pain x 1 day - History of Present Illness Patient is a 58-year-old male with a past medical history significant for diabetes mellitus hypertension hyperlipidemia CVA TIA coronary artery disease with a recent admission to the hospital from 06/16/2024 till 06/18/2024 the patient was managed for chest pain patient apparently did have Garcia catheter placement for retention and is now presenting back to the hospital complaining of lower abdominal discomfort and decreased output from his Garcia catheter patient was also complaining of some burning with the Garcia catheter but denies having any blood in the urine patient did have some chills but denies having any fever and no fever was noticed on presentation to the hospital patient was not tachycardic hypotensive or hypoxic he did have a white count of 7.3 did have elevated bili creatinine liver enzymes are normal patient did have a positive UA with moderate leukocyte esterase 39 WBC patient UA on 1228 was normal patient has been started on Rocephin infectious disease was consulted for further management of antibiotic therapy Review of Systems Positive point and negatives has been mentioned in the HPI, complete review of systems was performed and all other systems are negative Past Medical History Past Medical History: Coronary Artery Disease (CAD), Chest Pain / Angina, CVA/TIA, Diabetes Mellitus, Eye Disorder, GERD/Reflux, Hearing Disorder / Deafness, Hyperlipidemia, Hypertension, Myocardial Infarction (PR), Prostate Disorder, Renal Disease, Rheumatoid Arthritis (RA) Additional Past Medical History / Comment(s): PR X2 in 2014 and 02/2023., 02 3L/NC., Hx stroke Apr 2017. , hx tia's ., left side weakness., Migranes., Diabetic neuropathy arms and legs, tremors off and on, circulation problems, uses quad cane and wheelchair., Kidney disease with dialysis [facility]. Hx Pancreatitis., Legally blind, some trouble hearing. Enlarged prostate, trouble urinating. , hx of recent uti's., anemia., constipation Last Myocardial Infarction Date:: 02/2023 History of Any Multi-Drug Resistant Organisms: None Reported Past Surgical History: Cholecystectomy, Heart Catheterization, Heart Catheterization With Stent, Heart Catheterization With Stent, Hernia Repair, Prostate Surgery Additional Past Surgical History / Comment(s): Dialysis Port Placed - 03/14/23, HIATAL HERNIA REPAIR - 01/23/21., states hx 5 heart caths with 5 stents. Past Anesthesia/Blood Transfusion Reactions: No Reported Reaction Additional Past Anesthesia/Blood Transfusion Reaction / Comm: . Date of Last Stent Placement:: 05/07/23 Past Psychological History: Anxiety, Depression Additional Psychological History / Comment(s): Pt resides with his spouse. He uses a quad cane or walker to ambulate. He is legally blind. He reads minimally with magnifying glass and signs his name only now. His spouse drives him to [employer] Smoking Status: Never smoker Past Alcohol Use History: None Reported Past Drug Use History: None Reported - Past Family History Mother Family Medical History: CVA/TIA, Diabetes Mellitus, Hypertension Additional Family Medical History / Comment(s): Parkinson's. Father Family Medical History: CVA/TIA, Diabetes Mellitus, Myocardial Infarction (PR) Additional Family Medical History / Comment(s): Father of a PR in his 50s. Medications and Allergies Home Medications Medication Instructions Recorded Confirmed Type Pantoprazole [Protonix] 40 mg PO BID 11/05/17 06/20/24 History Tamsulosin [Flomax] 0.4 mg PO BID 11/05/17 06/20/24 History Citalopram Hydrobromide [CeleXA] 20 mg PO DAILY 12/12/18 06/20/24 History allopurinoL [Zyloprim] 100 mg PO DAILY 04/05/19 06/20/24 History Atorvastatin [Lipitor] 80 mg PO HS 12/30/19 06/20/24 History Citalopram Hydrobromide [CeleXA] 40 mg PO DAILY 06/29/20 06/20/24 History Folic Acid/Vit B Complex and C 0.8 mg PO DAILY 05/05/23 06/20/24 History [Nephro-Cirilo Tablet] Losartan [Cozaar] 25 mg PO DAILY 09/19/23 06/20/24 History Metoprolol Succinate (ER) [Toprol 50 mg PO DAILY 09/19/23 06/20/24 History XL] Ranolazine [Ranexa] 500 mg PO Q12HR #60 tab 09/21/23 06/20/24 Rx Furosemide [Lasix] 80 mg PO DAILY 10/16/23 06/20/24 History Nitroglycerin Sl Tabs [Nitrostat] 0.4 mg SL Q5M PRN 10/16/23 06/20/24 History hydrALAZINE HCL [Apresoline] 50 mg PO TID 04/12/24 06/20/24 History Calcium Carbonate [Tums] 500 mg PO TID 06/16/24 06/20/24 History Clopidogrel [Plavix] 75 mg PO DAILY 06/16/24 06/20/24 History NIFEdipine XL [Procardia XL] 60 mg PO DAILY 06/16/24 06/20/24 History Aspirin 81 mg PO DIRECTED 06/20/24 06/20/24 History Isosorbide Mononitrate ER [Imdur] 15 mg PO DIRECTED 06/20/24 06/20/24 History Allergies Allergy/AdvReac Type Severity Reaction Status Date / Time hydromorphone AdvReac Confusion Verified 06/20/24 09:34 Iodinated Contrast Media AdvReac Nausea & Verified 06/20/24 09:34 [Iodinated Contrast- Oral Vomiting and IV Dye] morphine AdvReac Vomiting Verified 06/20/24 09:34 sucralfate AdvReac Nausea & Verified 06/20/24 09:34 Vomiting Physical Exam Vitals: Vital Signs Temp Pulse Pulse Resp BP BP Pulse Ox 06/20/24 13:46 185/84 98 06/20/24 11:33 76 188/83 06/20/24 10:37 97.9 F 84 17 188/77 99 06/20/24 08:24 84 06/20/24 08:13 97.9 F 84 17 188/77 99 06/20/24 07:02 85 18 186/87 99 06/20/24 01:34 98.6 F 87 18 173/100 98 06/19/24 19:29 97.9 F 82 18 177/68 100 Intake and Output 06/19/24 06/20/24 06/20/24 22:59 06:59 14:59 Other: Voiding Method Indwelling Catheter Weight 79.379 kg 79.379 kg GENERAL DESCRIPTION: Elderly male lying in bed, no distress. No tachypnea or accessory muscle of respiration use. HEENT: Shows Pallor , no scleral icterus. Oral mucous membrane is dry. NECK: Trachea central, no thyromegaly. LUNGS: Unlabored breathing. Clear to auscultation anteriorly. No wheeze or crackle. HEART: S1, S2, regular rate and rhythm. No loud murmur ABDOMEN: Soft, no tenderness , guarding or rigidity, no organomegaly EXTREMITIES: No edema of feet. SKIN: No rash, no masses palpable. NEUROLOGICAL: The patient is awake, alert, oriented x3, mood and affect normal. Results CBC & Chem 7: 06/20/24 08:36 06/20/24 08:36 Labs: Abnormal Lab Results - Last 24 Hours (Table) 06/19/24 06/19/24 06/19/24 Range/Units 20:00 20:24 20:24 RBC 3.67 L (4.30-5.90) m/uL Hgb 10.7 L (13.0-17.5) gm/dL Hct 31.2 L (39.0-53.0) % Plt Count 118 L (150-450) k/uL APTT 21.4 L (22.0-30.0) sec Sodium (137-145) mmol/L Potassium (3.5-5.1) mmol/L Chloride (98-107) mmol/L BUN (9-20) mg/dL Creatinine (0.66-1.25) mg/dL Glucose (74-99) mg/dL POC Glucose (mg/dL) (70-110) mg/dL Calcium (8.4-10.2) mg/dL Alkaline Phosphatase (38-126) U/L Urine Protein 2+ H (Negative) Urine Glucose (UA) 4+ H (Negative) Urine Blood Small H (Negative) Ur Leukocyte Esterase Moderate H (Negative) Urine RBC 6 H (0-5) /hpf Urine WBC 39 H (0-5) /hpf Hyaline Casts 5 H (0-2) /lpf Urine Mucus Rare H (None) /hpf Urine Yeast (Budding) Rare H (None) /hpf 06/19/24 06/20/24 06/20/24 Range/Units 20:30 08:36 08:36 RBC 3.36 L (4.30-5.90) m/uL Hgb 9.7 L (13.0-17.5) gm/dL Hct 28.9 L (39.0-53.0) % Plt Count 124 L (150-450) k/uL APTT (22.0-30.0) sec Sodium 131 L 135 L (137-145) mmol/L Potassium 5.9 H (3.5-5.1) mmol/L Chloride 93 L 96 L (98-107) mmol/L BUN 42 H 47 H (9-20) mg/dL Creatinine 4.27 H 5.63 H (0.66-1.25) mg/dL Glucose 246 H 215 H (74-99) mg/dL POC Glucose (mg/dL) (70-110) mg/dL Calcium 8.1 L 8.2 L (8.4-10.2) mg/dL Alkaline Phosphatase 132 H (38-126) U/L Urine Protein (Negative) Urine Glucose (UA) (Negative) Urine Blood (Negative) Ur Leukocyte Esterase (Negative) Urine RBC (0-5) /hpf Urine WBC (0-5) /hpf Hyaline Casts (0-2) /lpf Urine Mucus (None) /hpf Urine Yeast (Budding) (None) /hpf 06/20/ Range/Units 11:31 RBC (4.30-5.90) m/uL Hgb (13.0-17.5) gm/dL Hct (39.0-53.0) % Plt Count (150-450) k/uL APTT (22.0-30.0) sec Sodium (137-145) mmol/L Potassium (3.5-5.1) mmol/L Chloride (98-107) mmol/L BUN (9-20) mg/dL Creatinine (0.66-1.25) mg/dL Glucose (74-99) mg/dL POC Glucose (mg/dL) 213 H (70-110) mg/dL Calcium (8.4-10.2) mg/dL Alkaline Phosphatase (38-126) U/L Urine Protein (Negative) Urine Glucose (UA) (Negative) Urine Blood (Negative) Ur Leukocyte Esterase (Negative) Urine RBC (0-5) /hpf Urine WBC (0-5) /hpf Hyaline Casts (0-2) /lpf Urine Mucus (None) /hpf Urine Yeast (Budding) (None) /hpf Assessment and Plan (1) UTI (urinary tract infection) Current Visit: Yes Status: Acute Code(s): N39.0 - URINARY TRACT INFECTION, SITE NOT SPECIFIED SNOMED Code(s): 11148748 Plan: 1patient presented to hospital with lower abdominal discomfort decreased urine output and burning did have a significantly positive UA if possible component of catheter assisted UTI not entirely excluded 2-Rocephin 2 g daily while waiting for the culture to finalize Question concern answered We will follow on clinical condition and cultures to further adjust medication if needed Thank you for this consultation we will follow the patient along with you Dictation was produced using Pant[employer] dictation software. please excuse any grammatical, word or spelling errors. Time with Patient: Greater than 30
[2024-06-20] MEDS: MORPHINE SULFATE 4 MG/ML SYRINGE IV PRN (22:18)
--- NOTE | 2024-06-21 00:53 | HP ---
HISTORY AND PHYSICAL CHIEF COMPLAINT: Nausea, vomiting, weakness, and diminished output from the urinary catheter. HISTORY OF PRESENT ILLNESS: This is a 58-year-old gentleman with a past medical history of multiple medical problems, was recently admitted to [facility]. The patient had cardiac catheterization showing diffuse disease. Medical treatment was recommended. The patient went home and complaining of diminished output from the urinary catheter, nausea, vomiting. The patient was admitted for further evaluation and treatment. There is no history of any fever, rigors, or chills at this time. Creatinine is 5.63. PAST MEDICAL HISTORY: Reviewed include CAD, CVA, TIA, diabetes mellitus type 2 and multiple medical issues. Rest of history reviewed. HOME MEDICATIONS: Reviewed include apresoline. Doses and rest of medications reviewed. ALLERGIES: Hydromorphone. FAMILY HISTORY: History of diabetes mellitus and parkinsonism. SOCIAL HISTORY: No history of current smoking or alcohol intake. REVIEW OF SYSTEMS: Fourteen-point review of systems is negative except as mentioned earlier. PHYSICAL EXAMINATION: VITAL SIGNS: Pulse 84, blood pressure 188/77, respirations 17. HEENT: Conjunctivae normal. NECK: No JVD. CARDIOVASCULAR: S1, S2. RESPIRATIONS: Breath sounds diminished at the bases. A few scattered rhonchi. ABDOMEN: Soft, obese. LEGS: No edema. NERVOUS SYSTEM: Nonfocal. LABORATORY DATA: Reviewed. ASSESSMENT: 1. Nausea, vomiting, possible acute gastritis. 2. Hypertensive urgency. 3. History of recent cardiac catheterization for coronary artery disease showing diffuse coronary artery disease, on medical treatment. 4. Recent acute [id number]-[id number]-elevation myocardial infarction. 5. End-stage renal disease, on hemodialysis. 6. Diabetes mellitus, type 2. 7. Hypertension. 8. Hyperlipidemia. 9. Multiple medical issues. RECOMMENDATIONS: Recommend to continue current management and continue symptomatic treatment. Otherwise, at this time, I recommend hydralazine p.r.n. Cardiology consultation. Nephrology consultation. Hemodialysis. Symptomatic treatment for the nausea. Prognosis extremely guarded. Further recommendations to follow. See orders for further details. MMODL / IJN: [id number] /
[2024-06-21 06:16] LABS: Glucose,Whole Blood 284 mg/dL (70-110)
--- NOTE | 2024-06-21 07:59 | P.PN ---
Subjective This is a pleasant 58 years old male with multiple medical problems Presents because of decreased urine output from recently placed catheter. He is a known case of end-stage renal disease on hemodialysis, however he makes urine On admission also have some GI symptoms like nausea vomiting and mild abdominal pain. He is afebrile with no leukocytosis Hemoglobin 10.7 and 9.7 He is on aspirin and Plavix Started on ceftriaxone and normal saline at 40 mL/h. Also patient has been complaining from pain in his private area after placement of the Garcia catheter. Patient has no urine culture This morning he states that he feels better his with nausea vomiting is better he is able to eat this most of his breakfast with minimal abdominal tenderness. No diarrhea. I offered for the patient to take the Garcia catheter out and monitor him, he declines and he wants to see urologist, he sees Dr. Lambert in the outpatient setting Currently he denies chest pain or dyspnea Objective - Vital Signs Vital signs: Vital Signs Temp 98.7 F 06/21/24 01:18 Pulse 64 06/21/24 01:18 Resp 18 06/21/24 01:18 BP 126/50 06/21/24 01:18 Pulse Ox 98 06/21/24 01:18 FiO2 Intake & Output 06/20/24 06/21/24 06/21/24 18:59 06:59 18:59 Intake Total 660 Output Total 600 600 Balance 60 -600 Weight 79.379 kg Intake: Oral 660 Output: Urine 600 600 Other: Voiding Method Indwelling Catheter Indwelling Catheter - Exam GENERAL: The patient is alert and oriented x3, not in any acute distress. Well developed, well nourished. HEENT: Pupils are round and equally reacting to light. EOMI. No scleral icterus. No conjunctival pallor. Normocephalic, atraumatic. No pharyngeal erythema. No thyromegaly. CARDIOVASCULAR: S1 and S2 present. No murmurs, rubs, or gallops. PULMONARY: Chest is clear to auscultation, no wheezing , no crackles. -ABDOMEN: Soft, nontender, nondistended, normoactive bowel sounds. No palpable organomegaly. Garcia catheter in place. Mild penile tenderness with no swelling or discoloration, mainly on the tip MUSCULOSKELETAL: No joint swelling or deformity. EXTREMITIES: No cyanosis, clubbing, or pedal edema. NEUROLOGICAL: Gross neurological examination did not reveal any focal deficits. SKIN: No rashes. no petechiae. - Labs CBC & Chem 7: 06/20/24 08:36 06/20/24 08:36 Labs: Abnormal Lab Results - Last 24 Hours (Table) 06/20/24 06/20/24 06/20/24 Range/Units 08:36 08:36 11:31 RBC 3.36 L (4.30-5.90) m/uL Hgb 9.7 L (13.0-17.5) gm/dL Hct 28.9 L (39.0-53.0) % Plt Count 124 L (150-450) k/uL Sodium 135 L (137-145) mmol/L Chloride 96 L (98-107) mmol/L BUN 47 H (9-20) mg/dL Creatinine 5.63 H (0.66-1.25) mg/dL Glucose 215 H (74-99) mg/dL POC Glucose (mg/dL) 213 H (70-110) mg/dL Calcium 8.2 L (8.4-10.2) mg/dL Alkaline Phosphatase 132 H (38-126) U/L 06/20/24 06/20/24 06/21/24 Range/Units 16:30 20:04 06:14 RBC (4.30-5.90) m/uL Hgb (13.0-17.5) gm/dL Hct (39.0-53.0) % Plt Count (150-450) k/uL Sodium (137-145) mmol/L Chloride (98-107) mmol/L BUN (9-20) mg/dL Creatinine (0.66-1.25) mg/dL Glucose (74-99) mg/dL POC Glucose (mg/dL) 245 H 300 H 284 H (70-110) mg/dL Calcium (8.4-10.2) mg/dL Alkaline Phosphatase (38-126) U/L Assessment and Plan Assessment: Acute urinary tract infection is suspected End-stage renal disease on hemodialysis Mild acute gastroenteritis, resolved penile pain related to placement of Garcia catheter Coronary artery disease Plan: Continue ceftriaxone Continue with gentle hydration Continue with dual antiplatelet therapy with aspirin and Plavix Continue with antihypertensive medication with nifedipine and Lasix 80 mg once daily Nephrology team consult for hemodialysis for his end-stage renal disease Cardiology team consult for his cardiac disease and general surgery for his abdominal pain Patient has Garcia catheter and with some pain, he request to see a urologist and to be consulted neuro team on-call Labs and medication were reviewed.. Continue same treatment. Continue with symptomatic treatment. Resume home medication. Monitor labs and vitals. DVT and GI prophylaxis. Further recommendations as per clinical course of the patient DVT prophylaxis: dual antiplatelet therapy GI Prophylaxis: Protonix PT/OT: Pending Prognosis is guarded
[2024-06-21] MEDS: CLOPIDOGREL 75 MG TAB PO SCH (10:24)
[2024-06-21] MEDS: FOLIC ACID-VIT B COMPLEX-VIT C 1 CAP PO SCH (10:30)
--- NOTE | 2024-06-21 11:26 | P.CRDCN ---
History of Present Illness History of present illness: HISTORY OF PRESENT ILLNESS: This is a 58-year-old male with a past medical history significant for hypertension, hyperlipidemia, diabetes and end-stage renal disease. Patient follows in the office with Dr. Avendaño. We have been asked to see the patient in consultation for CAD. Patient examined at the bedside. Patient states he presented to the hospital due to decreased urine output in his Garcia catheter. Patient was recently admitted to the hospital and had issues with urinary reten tion. He was discharged home with an indwelling urinary catheter. The patient currently denies any chest pain or pressure. He denies any shortness of breath. Vital signs are stable. DIAGNOSTICS: - EKG reveals sinus mechanism with no signs of acute ischemia. - Chest xray negative for acute process - Laboratory data: WBC 7.3. Hemoglobin 9.7. Platelet count 124. Sodium 135. Potassium 3.7. BUN 47. Creatinine 5.63. Troponin negative x 3. - Current home cardiac medications include aspirin 81 mg daily, Lipitor 80 mg at night, Plavix 75 mg daily, Lasix 80 mg daily, Imdur 15 mg daily, losartan 25 mg daily, metoprolol succinate 50 mg daily, nifedipine 60 mg daily, Ranexa 500 mg twice a day, hydralazine 50 mg 3 times a day. - Most recent echocardiogram obtained in May 2024 revealed ejection fraction 55 to 60%, trace MR, trace TR - Cardiac catheterization history: 06/17/2024 revealing codominant system totally occluded RCA and normal filling pressures. No gradient. Widely patent stent in the LAD and circumflex. Distal one third of the LAD has diffuse disease. Medical management was recommended. REVIEW OF SYSTEMS: At the time of my exam: CONSTITUTIONAL: Denies fever or chills. HEENT: Denies blurred vision, vision changes, or eye pain. Denies hemoptysis CARDIOVASCULAR: Denies chest pain. Denies orthopnea. Denies PND. Denies palpitations RESPIRATORY: Denies shortness of breath. GASTROINTESTINAL: Denies abdominal pain. Denies nausea or vomiting. HEMATOLOGIC: Denies bleeding disorders. GENITOURINARY: Denies any blood in urine. SKIN: Denies pruitis. Denies rash. PHYSICAL EXAM: VITAL SIGNS: Reviewed. GENERAL: Well-developed in no acute distress. HEENT: Head is normocephalic. Pupils are equal, round. Sclerae anicteric. Mucous membranes of the mouth are moist. Neck supple. No JVD or thyromegaly LUNGS: Respirations even and unlabored. Lungs essentially clear to auscultation bilaterally. HEART: Regular rate and rhythm. S1 and S2 heard. ABDOMEN: Soft. Nondistended. Nontender. EXTREMITIES: Normal range of motion. No clubbing or cyanosis. Peripheral pulses intact. No lower extremity edema NEUROLOGIC: Awake and alert. Oriented x 3. ASSESSMENT: Urinary retention with indwelling urinary catheter Suspected urinary tract infection Coronary artery disease with previous stenting of the LAD and circumflex End-stage renal disease on hemodialysis Hypertension Hyperlipidemia Diabetes PLAN: Resume home cardiac medications Patient with no acute active cardiac issues We will sign off. Please reconsult if needed. Nurse practitioner note has been reviewed by physician. Signing provider agrees with the documented findings, assessment, and plan of care documented by [employer] as a scribe. Past Medical History Past Medical History: Coronary Artery Disease (CAD), Chest Pain / Angina, CVA/TIA, Diabetes Mellitus, Eye Disorder, GERD/Reflux, Hearing Disorder / Deafness, Hyperlipidemia, Hypertension, Myocardial Infarction ([place]), Prostate Disorder, Renal Disease, Rheumatoid Arthritis ([place]) Additional Past Medical History / Comment(s): [place] X2 in 2014 and 02/2023., 02 3L/[place]., Hx stroke Apr 2017. , hx tia's ., left side weakness., Migranes., Diabetic neuropathy arms and legs, tremors off and on, circulation problems, uses quad cane and wheelchair., Kidney disease with dialysis TUTHSA. Hx Pancreatitis., Legally blind, some trouble hearing. Enlarged prostate, trouble urinating. , hx of recent uti's., anemia., constipation Last Myocardial Infarction Date:: 02/2023 History of Any Multi-Drug Resistant Organisms: None Reported Past Surgical History: Cholecystectomy, Heart Catheterization, Heart Catheterization With Stent, Heart Catheterization With Stent, Hernia Repair, Prostate Surgery Additional Past Surgical History / Comment(s): Dialysis Port Placed - 03/14/23, HIATAL HERNIA REPAIR - 01/23/21., states hx 5 heart caths with 5 stents. Past Anesthesia/Blood Transfusion Reactions: No Reported Reaction Additional Past Anesthesia/Blood Transfusion Reaction / Comment(s): . Date of Last Stent Placement:: 05/07/23 Past Psychological History: Anxiety, Depression Additional Psychological History / Comment(s): Pt resides with his spouse. He uses a quad cane or walker to ambulate. He is legally blind. He reads minimally with magnifying glass and signs his name only now. His spouse drives him to [employer]. Smoking Status: Never smoker Past Alcohol Use History: None Reported Past Drug Use History: None Reported - Past Family History Mother Family Medical History: CVA/TIA, Diabetes Mellitus, Hypertension Additional Family Medical History / Comment(s): Parkinson's. Father Family Medical History: CVA/TIA, Diabetes Mellitus, Myocardial Infarction ([place]) Additional Family Medical History / Comment(s): Father of a [place] in his 50s. Medications and Allergies Home Medications Medication Instructions Recorded Confirmed Type Pantoprazole [Protonix] 40 mg PO BID 11/05/17 06/20/24 History Tamsulosin [Flomax] 0.4 mg PO BID 11/05/17 06/20/24 History Citalopram Hydrobromide [CeleXA] 20 mg PO DAILY 12/12/18 06/20/24 History allopurinoL [Zyloprim] 100 mg PO DAILY 04/05/19 06/20/24 History Atorvastatin [Lipitor] 80 mg PO HS 12/30/19 06/20/24 History Citalopram Hydrobromide [CeleXA] 40 mg PO DAILY 06/29/20 06/20/24 History Folic Acid/Vit B Complex and C 0.8 mg PO DAILY 05/05/23 06/20/24 History [Nephro-Cirilo Tablet] Losartan [Cozaar] 25 mg PO DAILY 09/19/23 06/20/24 History Metoprolol Succinate (ER) [Toprol 50 mg PO DAILY 09/19/23 06/20/24 History XL] Ranolazine [Ranexa] 500 mg PO Q12HR #60 tab 09/21/23 06/20/24 Rx Furosemide [Lasix] 80 mg PO DAILY 10/16/23 06/20/24 History Nitroglycerin Sl Tabs [Nitrostat] 0.4 mg SL Q5M PRN 10/16/23 06/20/24 History hydrALAZINE HCL [Apresoline] 50 mg PO TID 04/12/24 06/20/24 History Calcium Carbonate [Tums] 500 mg PO TID 06/16/24 06/20/24 History Clopidogrel [Plavix] 75 mg PO DAILY 06/16/24 06/20/24 History NIFEdipine XL [Procardia XL] 60 mg PO DAILY 06/16/24 06/20/24 History Aspirin 81 mg PO DIRECTED 06/20/24 06/20/24 History Isosorbide Mononitrate ER [Imdur] 15 mg PO DIRECTED 06/20/24 06/20/24 History Allergies Allergy/AdvReac Type Severity Reaction Status Date / Time hydromorphone AdvReac Confusion Verified 06/20/24 09:34 Iodinated Contrast Media AdvReac Nausea & Verified 06/20/24 09:34 [Iodinated Contrast- Oral Vomiting and IV Dye] morphine AdvReac Vomiting Verified 06/20/24 09:34 sucralfate AdvReac Nausea & Verified 06/20/24 09:34 Vomiting Physical Exam Vitals: Vital Signs Temp Pulse Pulse Resp BP Pulse Ox 06/21/24 07:22 97.9 F 70 17 160/70 99 06/21/24 01:18 98.7 F 64 18 126/50 98 06/20/24 20:00 97.2 F L 68 17 137/75 100 06/20/24 16:37 153/67 06/20/24 15:09 173/76 06/20/24 13:46 185/84 98 06/20/24 11:33 76 188/83 06/20/24 10:37 97.9 F 84 17 188/77 99 Intake and Output 06/20/24 06/21/24 06/21/24 22:59 06:59 14:59 Intake Total 660 Output Total 600 Balance 660 -600 Intake: Oral 660 Output: Urine 600 Other: Voiding Method Indwelling Catheter Results 06/20/24 08:36 06/20/24 08:36 Cardiac Enzymes 06/20/24 06/20/24 06/20/24 Range/Units 08:36 08:36 10:34 AST 27 (17-59) U/L Troponin I 0.029 0.031 (0.000-0.034) ng/mL Comprehensive Metabolic Panel 06/20/24 Range/Units 08:36 Sodium 135 L (137-145) mmol/L Potassium 3.7 (3.5-5.1) mmol/L Chloride 96 L (98-107) mmol/L Carbon Dioxide 26 (22-30) mmol/L BUN 47 H (9-20) mg/dL Creatinine 5.63 H (0.66-1.25) mg/dL Glucose 215 H (74-99) mg/dL Calcium 8.2 L (8.4-10.2) mg/dL AST 27 (17-59) U/L ALT 27 (4-49) U/L Alkaline Phosphatase 132 H (38-126) U/L Total Protein 6.9 (6.3-8.2) g/dL Albumin 4.3 (3.5-5.0) g/dL Current Medications Generic Name Dose Route Start Last Admin Trade Name Freq PRN Reason Stop Dose Admin Allopurinol 100 mg 06/20/24 12:30 06/20/24 12:37 Allopurinol 100 Mg Tab PO 100 mg DAILY JAD Administration Aspirin 81 mg 06/20/24 12:30 06/20/24 12:36 Aspirin 81 Mg PO 81 mg DAILY JAD Administration Atorvastatin Calcium 80 mg 06/20/24 21:00 06/20/24 21:16 Atorvastatin 80 Mg Tab PO 80 mg HS JAD Administration Calcium Carbonate/Glycine 500 mg 06/20/24 12:30 06/20/24 21:16 Calcium Carbonate 500 Mg Chewable PO 500 mg TID JAD Administration Citalopram Hydrobromide 40 mg 06/20/24 12:30 06/20/24 12:36 Citalopram Hydrobromide 20 Mg Tab PO 40 mg DAILY JAD Administration Clopidogrel Bisulfate 75 mg 06/21/24 09:00 Clopidogrel 75 Mg Tab PO DAILY JAD Furosemide 80 mg 06/20/24 12:30 06/20/24 12:44 Furosemide 80 Mg Tab PO 80 mg DAILY JAD Administration Hydralazine HCl 50 mg 06/20/24 12:30 06/20/24 21:16 Hydralazine Hcl 50 Mg Tab PO 50 mg TID JAD Administration Sodium Chloride 1,000 mls @ 40 mls/hr 06/19/24 21:00 06/20/24 16:42 Saline 0.9% IV 40 mls/hr .Q24H JAD Administration Ceftriaxone Sodium 2 gm/ 50 mls @ 100 mls/hr 06/20/24 09:00 06/20/24 08:15 Sodium Chloride IVPB 100 mls/hr Q24HR JAD Administration Protocol Isosorbide Mononitrate 15 mg 06/20/24 12:30 06/20/24 13:09 Isosorbide Mononitrate Er 15 Mg Tab PO 15 mg DAILY JAD Administration Losartan Potassium 25 mg 06/20/24 12:30 06/20/24 12:44 Losartan 25 Mg Tab PO 25 mg DAILY JAD Administration Metoclopramide HCl 5 mg 06/20/24 12:20 06/20/24 12:35 Metoclopramide 5 Mg/Ml 2 Ml Vial IVP 5 mg Q6HR PRN Administration GI Upset Metoprolol Succinate 50 mg 06/20/24 12:30 06/20/24 12:37 Metoprolol Succinate (Er) 50 Mg Tab.Er.24h PO 50 mg DAILY JAD Administration Morphine Sulfate 4 mg 06/19/24 21:57 06/21/24 03:19 Morphine Sulfate 4 Mg/Ml Syringe IV 4 mg Q4HR PRN Administration Severe Pain (Scale 7 to 10) Multivit/Ca Carb/B Cmplx/FA/Prenat 0.8 each 06/20/24 12:30 06/20/24 13:09 Folic Acid-Vit B Complex-Vit C 1 Cap PO 0.8 each DAILY JAD Administration Naloxone HCl 0.2 mg 06/19/24 21:57 Naloxone 0.4 Mg/Ml 1 Ml Vial IV Q2M PRN Opioid Reversal Nifedipine 60 mg 06/20/24 12:30 06/20/24 13:09 Nifedipine Xl 60 Mg Tab.Er.24 PO 60 mg DAILY JAD Administration Ondansetron HCl 4 mg 06/19/24 21:57 06/20/24 08:50 Ondansetron 4 Mg/2 Ml Vial IVP 4 mg Q8HR PRN Administration Nausea And Vomiting Oxymetazoline HCl 2 spray 06/20/24 12:24 06/20/24 17:57 Oxymetazoline 0.05% Nasl [place] 1 [place] Bottle NASAL 2 spray BID PRN Administration Congestion Pantoprazole Sodium 40 mg 06/20/24 12:30 06/20/24 21:15 Pantoprazole 40 Mg/10 Ml Vial IVP 40 mg BID JAD Administration Ranolazine 500 mg 06/20/24 12:30 06/20/24 21:15 Ranolazine 500 Mg Tab.Er.12h PO 500 mg Q12HR JAD Administration Tamsulosin HCl 0.4 mg 06/20/24 12:30 06/20/24 21:16 Tamsulosin 0.4 Mg Cap.Er.24h PO 0.4 mg BID JAD Administration Intake and Output 06/20/24 06/21/24 06/21/24 22:59 06:59 14:59 Intake Total 660 Output Total 600 Balance 660 -600 Intake: Oral 660 Output: Urine 600 Other: Voiding Method Indwelling Catheter 06/20/24 08:36 06/20/24 08:36
[2024-06-21 11:37] LABS: Glucose,Whole Blood 382 mg/dL (70-110)
--- NOTE | 2024-06-21 12:04 | P.NPCON ---
History of Present Illness - Reason for Consult end stage renal disease - History of Present Illness patient is a 58-year-old malewith end-stage renal disease on hemodialysis on Thursday schedule. Patient is admitted to the hospital with complaints of significant perineal pain. Garcia catheter was placed during recent hospitalization for cardiac catheterization on 06/18/2024 No complaints of fever chills nausea or vomiting. No abdominal pain. It appears there was some difficulty in placing the catheter on 06/18/2024. Patient is requesting to see urology. Next UA shows WBCs 39. No leukocytosis noted on CBC. Potassium was 5.9 on admission. Scheduled for hemodialysis today. Past Medical History Past Medical History: Coronary Artery Disease (CAD), Chest Pain / Angina, CVA/TIA, Diabetes Mellitus, Eye Disorder, GERD/Reflux, Hearing Disorder / Deafness, Hyperlipidemia, Hypertension, Myocardial Infarction ([place]), Prostate Disorder, Renal Disease, Rheumatoid Arthritis ([place]) Additional Past Medical History / Comment(s): [place] X2 in 2014 and 02/2023., 02 3L/[place]., Hx stroke Apr 2017. , hx tia's ., left side weakness., Migranes., Diabetic neuropathy arms and legs, tremors off and on, circulation problems, uses quad cane and wheelchair., Kidney disease with dialysis TUTHSA. Hx Pancreatitis., Legally blind, some trouble hearing. Enlarged prostate, trouble urinating. , hx of recent uti's., anemia., constipation Last Myocardial Infarction Date:: 02/2023 History of Any Multi-Drug Resistant Organisms: None Reported Past Surgical History: Cholecystectomy, Heart Catheterization, Heart Catheterization With Stent, Heart Catheterization With Stent, Hernia Repair, Prostate Surgery Additional Past Surgical History / Comment(s): Dialysis Port Placed - 03/14/23, HIATAL HERNIA REPAIR - 01/23/21., states hx 5 heart caths with 5 stents. Past Anesthesia/Blood Transfusion Reactions: No Reported Reaction Additional Past Anesthesia/Blood Transfusion Reaction / Comment(s): . Date of Last Stent Placement:: 05/07/23 Past Psychological History: Anxiety, Depression Additional Psychological History / Comment(s): Pt resides with his spouse. He uses a quad cane or walker to ambulate. He is legally blind. He reads minimally with magnifying glass and signs his name only now. His spouse drives him to [employer]. Smoking Status: Never smoker Past Alcohol Use History: None Reported Past Drug Use History: None Reported - Past Family History Mother Family Medical History: CVA/TIA, Diabetes Mellitus, Hypertension Additional Family Medical History / Comment(s): Parkinson's. Father Family Medical History: CVA/TIA, Diabetes Mellitus, Myocardial Infarction ([place]) Additional Family Medical History / Comment(s): Father of a [place] in his 50s. Medications and Allergies Home Medications Medication Instructions Recorded Confirmed Type Pantoprazole [Protonix] 40 mg PO BID 11/05/17 06/20/24 History Tamsulosin [Flomax] 0.4 mg PO BID 11/05/17 06/20/24 History Citalopram Hydrobromide [CeleXA] 20 mg PO DAILY 12/12/18 06/20/24 History allopurinoL [Zyloprim] 100 mg PO DAILY 04/05/19 06/20/24 History Atorvastatin [Lipitor] 80 mg PO HS 12/30/19 06/20/24 History Citalopram Hydrobromide [CeleXA] 40 mg PO DAILY 06/29/20 06/20/24 History Folic Acid/Vit B Complex and C 0.8 mg PO DAILY 05/05/23 06/20/24 History [Nephro-Cirilo Tablet] Losartan [Cozaar] 25 mg PO DAILY 09/19/23 06/20/24 History Metoprolol Succinate (ER) [Toprol 50 mg PO DAILY 09/19/23 06/20/24 History XL] Ranolazine [Ranexa] 500 mg PO Q12HR #60 tab 09/21/23 06/20/24 Rx Furosemide [Lasix] 80 mg PO DAILY 10/16/23 06/20/24 History Nitroglycerin Sl Tabs [Nitrostat] 0.4 mg SL Q5M PRN 10/16/23 06/20/24 History hydrALAZINE HCL [Apresoline] 50 mg PO TID 04/12/24 06/20/24 History Calcium Carbonate [Tums] 500 mg PO TID 06/16/24 06/20/24 History Clopidogrel [Plavix] 75 mg PO DAILY 06/16/24 06/20/24 History NIFEdipine XL [Procardia XL] 60 mg PO DAILY 06/16/24 06/20/24 History Aspirin 81 mg PO DIRECTED 06/20/24 06/20/24 History Isosorbide Mononitrate ER [Imdur] 15 mg PO DIRECTED 06/20/24 06/20/24 History Allergies Allergy/AdvReac Type Severity Reaction Status Date / Time hydromorphone AdvReac Confusion Verified 06/20/24 09:34 Iodinated Contrast Media AdvReac Nausea & Verified 06/20/24 09:34 [Iodinated Contrast- Oral Vomiting and IV Dye] morphine AdvReac Vomiting Verified 06/20/24 09:34 sucralfate AdvReac Nausea & Verified 06/20/24 09:34 Vomiting Physical Exam Vitals: Vital Signs Temp Pulse Pulse Resp BP Pulse Ox 06/21/24 07:22 97.9 F 70 17 160/70 99 06/21/24 01:18 98.7 F 64 18 126/50 98 06/20/24 20:00 97.2 F L 68 17 137/75 100 06/20/24 16:37 153/67 06/20/24 15:09 173/76 06/20/24 13:46 185/84 98 Intake and Output 06/20/24 06/21/24 06/21/24 22:59 06:59 14:59 Intake Total 660 Output Total 600 Balance 660 -600 Intake: Oral 660 Output: Urine 600 Other: Voiding Method Indwelling Catheter Indwelling Catheter patient is awake, comfortable, no acute distress. Examination of the heart S1 and S2 Examination of the lungs bilateral breath sounds are heard. Abdomen is soft nontender Examination of lower extremities shows no significant edema [employer] exam grossly intact Results - Lab Results Most recent lab results Calcium 8.2 mg/dL (8.4-10.2) L 06/20/24 08:36 Phosphorus 4.3 mg/dL (2.5-4.5) 06/20/24 08:36 Magnesium 1.9 mg/dL (1.6-2.3) 06/20/24 08:36 06/20/24 08:36 06/20/24 08:36 Assessment and Plan Assessment: 1. End-stage renal disease on hemodialysis on Thursday schedule. Scheduled for hemodialysis today. 2. Hyperkalemia associated with end-stage renal disease, repeat potassium was 3.7. Blood sugars are elevated, contributing to hyperkalemia. Serum glucose was 382 today. Scheduled for hemodialysis today. 3. Pain with Garcia catheter placement 4. Pyuria rule out UTI 5. Coronary artery disease, status post cardiac catheterization on 06/17/2024 6. CK D mineral bone disorder Plan: hemodialysis today. DC IV fluids Follow-up on urine cultures Continue Lupe Thank you for the consultation. We will continue to follow the patient with you during his hospitalization.
--- NOTE | 2024-06-21 12:53 | P.GSCN ---
History of Present Illness Consult date: 06/21/24 Reason for Consult: Nausea, abdominal pain History of present illness: This is a 58-year-old male who has complaints of nausea and abdominal pain. Patient's pain is mainly suprapubic. Patient is a Garcia catheter in place. He is currently being worked up for urinary tract infection. Patient states his nausea is minimal. He is tolerated food today. Past Medical History Past Medical History: Coronary Artery Disease (CAD), Chest Pain / Angina, CVA/TIA, Diabetes Mellitus, Eye Disorder, GERD/Reflux, Hearing Disorder / Deafness, Hyperlipidemia, Hypertension, Myocardial Infarction ([place]), Prostate Dis order, Renal Disease, Rheumatoid Arthritis (RA) Additional Past Medical History / Comment(s): [place] X2 in 2014 and 02/2023., 02 3L/[place]., Hx stroke Apr 2017. , hx tia's ., left side weakness., Migranes., Diabetic neuropathy arms and legs, tremors off and on, circulation problems, uses quad cane and wheelchair., Kidney disease with dialysis TUTHSA. Hx Pancreatitis., Legally blind, some trouble hearing. Enlarged prostate, trouble urinating. , hx of recent uti's., anemia., constipation Last Myocardial Infarction Date:: 02/2023 History of Any Multi-Drug Resistant Organisms: None Reported Past Surgical History: Cholecystectomy, Heart Catheterization, Heart Catheterization With Stent, Heart Catheterization With Stent, Hernia Repair, Prostate Surgery Additional Past Surgical History / Comment(s): Dialysis Port Placed - 03/14/23, HIATAL HERNIA REPAIR - 01/23/21., states hx 5 heart caths with 5 stents. Past Anesthesia/Blood Transfusion Reactions: No Reported Reaction Additional Past Anesthesia/Blood Transfusion Reaction / Comm: . Date of Last Stent Placement:: 05/07/23 Past Psychological History: Anxiety, Depression Additional Psychological History / Comment(s): Pt resides with his spouse. He uses a quad cane or walker to ambulate. He is legally blind. He reads minimally with magnifying glass and signs his name only now. His spouse drives him to [employer]. Smoking Status: Never smoker Past Alcohol Use History: None Reported Past Drug Use History: None Reported - Past Family History Mother Family Medical History: CVA/TIA, Diabetes Mellitus, Hypertension Additional Family Medical History / Comment(s): Parkinson's. Father Family Medical History: CVA/TIA, Diabetes Mellitus, Myocardial Infarction ([place]) Additional Family Medical History / Comment(s): Father of a [place] in his 50s. Medications and Allergies Home Medications Medication Instructions Recorded Confirmed Type Pantoprazole [Protonix] 40 mg PO BID 11/05/17 06/20/24 History Tamsulosin [Flomax] 0.4 mg PO BID 11/05/17 06/20/24 History Citalopram Hydrobromide [CeleXA] 20 mg PO DAILY 12/12/18 06/20/24 History allopurinoL [Zyloprim] 100 mg PO DAILY 04/05/19 06/20/24 History Atorvastatin [Lipitor] 80 mg PO HS 12/30/19 06/20/24 History Citalopram Hydrobromide [CeleXA] 40 mg PO DAILY 06/29/20 06/20/24 History Folic Acid/Vit B Complex and C 0.8 mg PO DAILY 05/05/23 06/20/24 History [Nephro-Cirilo Tablet] Losartan [Cozaar] 25 mg PO DAILY 09/19/23 06/20/24 History Metoprolol Succinate (ER) [Toprol 50 mg PO DAILY 09/19/23 06/20/24 History XL] Ranolazine [Ranexa] 500 mg PO Q12HR #60 tab 09/21/23 06/20/24 Rx Furosemide [Lasix] 80 mg PO DAILY 10/16/23 06/20/24 History Nitroglycerin Sl Tabs [Nitrostat] 0.4 mg SL Q5M PRN 10/16/23 06/20/24 History hydrALAZINE HCL [Apresoline] 50 mg PO TID 04/12/24 06/20/24 History Calcium Carbonate [Tums] 500 mg PO TID 06/16/24 06/20/24 History Clopidogrel [Plavix] 75 mg PO DAILY 06/16/24 06/20/24 History NIFEdipine XL [Procardia XL] 60 mg PO DAILY 06/16/24 06/20/24 History Aspirin 81 mg PO DIRECTED 06/20/24 06/20/24 History Isosorbide Mononitrate ER [Imdur] 15 mg PO DIRECTED 06/20/24 06/20/24 History Allergies Allergy/AdvReac Type Severity Reaction Status Date / Time hydromorphone AdvReac Confusion Verified 06/20/24 09:34 Iodinated Contrast Media AdvReac Nausea & Verified 06/20/24 09:34 [Iodinated Contrast- Oral Vomiting and IV Dye] morphine AdvReac Vomiting Verified 06/20/24 09:34 sucralfate AdvReac Nausea & Verified 06/20/24 09:34 Vomiting Surgical - Exam Vital Signs Temp Pulse Resp BP Pulse Ox 97.9 F 82 18 177/68 100 06/19/24 19:29 06/19/24 19:29 06/19/24 19:29 06/19/24 19:29 06/19/24 19:29 - General well developed, well nourished, no distress - Eyes PERRL - ENT normal pinna - Neck no masses - Respiratory normal expansion - Cardiovascular Rhythm: regular - Abdomen Abdomen: soft, non tender Results - Labs 06/20/24 08:36 06/20/24 08:36 Abnormal Lab Results - Last 24 Hours (Table) 06/20/24 06/20/24 06/21/24 Range/Units 16:30 20:04 06:14 POC Glucose (mg/dL) 245 H 300 H 284 H (70-110) mg/dL 06/21/24 Range/Units 11:34 POC Glucose (mg/dL) 382 H (70-110) mg/dL Microbiology - Last 24 Hours (Table) 06/19/24 20:00 Urine Culture - Final Urine,Voided Assessment and Plan Assessment: Nausea and abdominal pain. Patient is abdominal pain is most likely related to his Garcia catheter. Patient will have an esophagram/upper GI performed due to his nausea.
[2024-06-21 16:45] LABS: Glucose,Whole Blood 312 mg/dL (70-110)
[2024-06-21] MEDS ORDERED: DEXTROSE 50% SYRINGE 50 ML IVP PRN ×2 (17:15)
[2024-06-21] MEDS: INSULIN ASPART (NovoLOG) 100 UNIT/ML VIAL SQ SCH (18:34)
[2024-06-21 21:37] LABS: Glucose,Whole Blood 92 mg/dL (70-110)
[2024-06-22 01:41] LABS: HCT 28.5 % (39.0-53.0); HGB 9.7 gm/dL (13.0-17.5); MCH 29.3 pg (25.0-35.0); MCHC 34.1 g/dL (31.0-37.0); Mean Platelet Volume 6.8; Platelet Count 144 k/uL (150-450); RBC 3.32 m/uL (4.30-5.90); RDW 15.2 % (11.5-15.5); WBC 9.4 k/uL (3.8-10.6)
[2024-06-22 02:03] LABS: ALT 25 U/L (4-49); AST 26 U/L (17-59); African American GFR (CKD) 18 (>60 ml/min/1.73 sqM); Albumin 4.2 g/dL (3.5-5.0); Alkaline Phosphatase 113 U/L (38-126); Anion Gap 14 mmol/L; Blood Urea Nitrogen 30 mg/dL (9-20); Carbon Dioxide 26 mmol/L (22-30); Chloride 93 mmol/L (98-107); Glucose 178 mg/dL (74-99); Magnesium 1.8 mg/dL (1.6-2.3); Non-African American GFR(CKD) 16 (>60 ml/min/1.73 sqM); Potassium 3.6 mmol/L (3.5-5.1); Sodium 133 mmol/L (137-145); Total Bilirubin 0.6 mg/dL (0.2-1.3); Total Protein 6.8 g/dL (6.3-8.2)
[2024-06-22 06:02] LABS: Glucose,Whole Blood 244 mg/dL (70-110)
--- NOTE | 2024-06-22 09:14 | P.PN ---
Subjective Progress Note Date: 06/21/24 Principal diagnosis: Reason for follow-up is UTI Patient is a 58-year-old male with a past medical history significant for diabetes mellitus hypertension hyperlipidemia CVA TIA coronary artery disease with a recent admission to the hospital from 06/16/2024 till 06/18/2024 the patient was managed for chest pain patient apparently did have Garcia catheter placement for retention now presenting back to the hospital concerning for decreased output abdominal discomfort and burning he did have positive he has been diagnosed with UTI probably this consultation. On today's evaluation that is 06/21/2024, Patient is afebrile this morning patient denies having any chest pain shortness of breath or cough, the patient is currently on room air, patient denies any abdominal pain no diarrhea no nausea no vomiting. Patient did not have lab draw today cultures are currently pending Objective - Vital Signs Vital signs: Vital Signs Temp 98.1 F 06/21/24 12:00 Pulse 59 L 06/21/24 12:00 Resp 16 06/21/24 12:00 BP 112/58 06/21/24 12:00 Pulse Ox 100 06/21/24 12:00 FiO2 - Exam GENERAL DESCRIPTION: Middle-age male lying in bed in no distress RESPIRATORY SYSTEM: Unlabored breathing , decreased breath sounds at bases HEART: S1 S2 regular rate and rhythm , ABDOMEN: Soft , no tenderness EXTREMITIES: No edema feet - Labs CBC & Chem 7: 06/24/24 07:50 06/24/24 07:50 Labs: Abnormal Lab Results - Last 24 Hours (Table) 06/21/24 06/21/24 06/22/24 Range/Units 11:34 16:43 01:07 RBC (4.30-5.90) m/uL Hgb (13.0-17.5) gm/dL Hct (39.0-53.0) % Plt Count (150-450) k/uL Sodium 133 L (137-145) mmol/L Chloride 93 L (98-107) mmol/L BUN 30 H (9-20) mg/dL Creatinine 3.99 H (0.66-1.25) mg/dL Glucose 178 H (74-99) mg/dL POC Glucose (mg/dL) 382 H 312 H (70-110) mg/dL Calcium 8.0 L (8.4-10.2) mg/dL 06/22/24 06/22/24 Range/Units 01:07 06:00 RBC 3.32 L (4.30-5.90) m/uL Hgb 9.7 L (13.0-17.5) gm/dL Hct 28.5 L (39.0-53.0) % Plt Count 144 L (150-450) k/uL Sodium (137-145) mmol/L Chloride (98-107) mmol/L BUN (9-20) mg/dL Creatinine (0.66-1.25) mg/dL Glucose (74-99) mg/dL POC Glucose (mg/dL) 244 H (70-110) mg/dL Calcium (8.4-10.2) mg/dL Microbiology - Last 24 Hours (Table) 06/19/24 20:00 Urine Culture - Final Urine,Voided Assessment and Plan (1) UTI (urinary tract infection) Current Visit: Yes Status: Acute Code(s): N39.0 - URINARY TRACT INFECTION, SITE NOT SPECIFIED SNOMED Code(s): 07353449 Plan: 1patient presented to hospital with lower abdominal discomfort decreased urine output and burning did have a significantly positive UA if possible component of catheter assisted UTI not entirely excluded 2-patient mentions some improvement in symptoms, to continue Rocephin 2 g daily while waiting for the culture to finalize Dictation was produced using [employer] dictation software. please excuse any grammatical, word or spelling errors. Time with Patient: Less than 30
--- NOTE | 2024-06-22 10:55 | P.PN ---
Subjective Progress Note Date: 06/22/24 Patient complains of a headache today. He states his abdominal pain and nausea have improved. On exam vital signs were stable. Abdomen is soft. Patient is less pelvic pain than yesterday. Resolving abdominal pain. Patient will continue IV antibiotics. We will plan for outpatient co endoscopy. Objective - Vital Signs Vital signs: Vital Signs Temp 97.1 F L 06/22/24 07:39 Pulse 65 06/22/24 07:39 Resp 17 06/22/24 07:39 BP 119/66 06/22/24 07:39 Pulse Ox 99 06/22/24 07:39 FiO2 Intake & Output 06/21/24 06/22/24 06/22/24 18:59 06:59 18:59 Intake Total 1460 Output Total 350 4300 Balance -350 -2840 Intake: Oral 960 Hemodialysis 500 Output: Urine 350 Hemodialysis 2400 Hemodialysis Net Amount 1900 Other: Voiding Method Indwelling Catheter Indwelling Catheter - Labs CBC & Chem 7: 06/22/24 01:07 06/22/24 01:07 Labs: Abnormal Lab Results - Last 24 Hours (Table) 06/21/24 06/21/24 06/22/24 Range/Units 11:34 16:43 01:07 RBC (4.30-5.90) m/uL Hgb (13.0-17.5) gm/dL Hct (39.0-53.0) % Plt Count (150-450) k/uL Sodium 133 L (137-145) mmol/L Chloride 93 L (98-107) mmol/L BUN 30 H (9-20) mg/dL Creatinine 3.99 H (0.66-1.25) mg/dL Glucose 178 H (74-99) mg/dL POC Glucose (mg/dL) 382 H 312 H (70-110) mg/dL Calcium 8.0 L (8.4-10.2) mg/dL 06/22/24 06/22/24 Range/Units 01:07 06:00 RBC 3.32 L (4.30-5.90) m/uL Hgb 9.7 L (13.0-17.5) gm/dL Hct 28.5 L (39.0-53.0) % Plt Count 144 L (150-450) k/uL Sodium (137-145) mmol/L Chloride (98-107) mmol/L BUN (9-20) mg/dL Creatinine (0.66-1.25) mg/dL Glucose (74-99) mg/dL POC Glucose (mg/dL) 244 H (70-110) mg/dL Calcium (8.4-10.2) mg/dL Microbiology - Last 24 Hours (Table) 06/19/24 20:00 Urine Culture - Final Urine,Voided
--- NOTE | 2024-06-22 11:04 | P.PN ---
Subjective This is a pleasant 58 years old male with multiple medical problems Presents because of decreased urine output from recently placed catheter. He is a known case of end-stage renal disease on hemodialysis, however he makes urine On admission also have some GI symptoms like nausea vomiting and mild abdominal pain. He is afebrile with no leukocytosis Hemoglobin 10.7 and 9.7 He is on aspirin and Plavix Started on ceftriaxone and normal saline at 40 mL/h. Also patient has been complaining from pain in his private area after placement of the Garcia catheter. Patient has no urine culture This morning he states that he feels better his with nausea vomiting is better he is able to eat this most of his breakfast with minimal abdominal tenderness. No diarrhea. I offered for the patient to take the Garcia catheter out and monitor him, he declines and he wants to see urologist, he sees Dr. Lambert in the outpatient setting Currently he denies chest pain or dyspnea 06/22/24 Patient states that he still complains from burning in his penile area and some suprapubic tenderness, but there is some reports of improvement Also states that he is having sinus symptoms for about 2 months and ask some medicine for it, he is using nasal spray with no benefit of oxytal. Also history started complaining of some frontal headache, felt like sharp radiating little to the back about 8/10 as per patient with no double vision or slurred speech Still has Garcia catheter Cardiology signed off the case, surgery team recommended outpatient colonoscopy. He remains on ceftriaxone for UTI. Urine culture is negative for growth. urology team consult is requested Objective - Vital Signs Vital signs: Vital Signs Temp 97.1 F L 06/22/24 07:39 Pulse 65 06/22/24 07:39 Resp 17 06/22/24 07:39 BP 119/66 06/22/24 07:39 Pulse Ox 99 06/22/24 07:39 FiO2 Intake & Output 06/21/24 06/22/24 06/22/24 18:59 06:59 18:59 Intake Total 1460 Output Total 350 4300 Balance -350 -2840 Intake: Oral 960 Hemodialysis 500 Output: Urine 350 Hemodialysis 2400 Hemodialysis Net Amount 1900 Other: Voiding Method Indwelling Catheter Indwelling Catheter - Exam GENERAL: The patient is alert and oriented x3, not in any acute distress. Well developed, well nourished. HEENT: Pupils are round and equally reacting to light. EOMI. No scleral icterus. No conjunctival pallor. Normocephalic, atraumatic. No pharyngeal erythema. No thyromegaly. CARDIOVASCULAR: S1 and S2 present. No murmurs, rubs, or gallops. PULMONARY: Chest is clear to auscultation, no wheezing , no crackles. -ABDOMEN: Soft, nontender, nondistended, normoactive bowel sounds. No palpable organomegaly. Garcia catheter in place. Mild penile tenderness with no swelling or discoloration, mainly on the tip MUSCULOSKELETAL: No joint swelling or deformity. EXTREMITIES: No cyanosis, clubbing, or pedal edema. NEUROLOGICAL: Gross neurological examination did not reveal any focal deficits. SKIN: No rashes. no petechiae. - Labs CBC & Chem 7: 06/22/24 01:07 06/22/24 01:07 Labs: Abnormal Lab Results - Last 24 Hours (Table) 06/21/24 06/21/24 06/22/24 Range/Units 11:34 16:43 01:07 RBC (4.30-5.90) m/uL Hgb (13.0-17.5) gm/dL Hct (39.0-53.0) % Plt Count (150-450) k/uL Sodium 133 L (137-145) mmol/L Chloride 93 L (98-107) mmol/L BUN 30 H (9-20) mg/dL Creatinine 3.99 H (0.66-1.25) mg/dL Glucose 178 H (74-99) mg/dL POC Glucose (mg/dL) 382 H 312 H (70-110) mg/dL Calcium 8.0 L (8.4-10.2) mg/dL 06/22/24 06/22/24 Range/Units 01:07 06:00 RBC 3.32 L (4.30-5.90) m/uL Hgb 9.7 L (13.0-17.5) gm/dL Hct 28.5 L (39.0-53.0) % Plt Count 144 L (150-450) k/uL Sodium (137-145) mmol/L Chloride (98-107) mmol/L BUN (9-20) mg/dL Creatinine (0.66-1.25) mg/dL Glucose (74-99) mg/dL POC Glucose (mg/dL) 244 H (70-110) mg/dL Calcium (8.4-10.2) mg/dL Microbiology - Last 24 Hours (Table) 06/19/24 20:00 Urine Culture - Final Urine,Voided Assessment and Plan Assessment: Acute urinary tract infection is suspected Bilateral sinusitis with frontal headache End-stage renal disease on hemodialysis Mild acute gastroenteritis, resolved penile pain related to placement of Garcia catheter Coronary artery disease Plan: Continue ceftriaxone Continue with gentle hydration Continue with dual antiplatelet therapy with aspirin and Plavix start Claritin and [place] as needed for pain control and sinus symptoms Continue with antihypertensive medication with nifedipine and Lasix 80 mg once daily Nephrology team consult for hemodialysis for his end-stage renal disease Cardiology team consult for his cardiac disease and general surgery for his abdominal pain Patient has Garcia catheter and with some pain, he request to see a urologist and to be consulted neuro team on-call Labs and medication were reviewed.. Continue same treatment. Continue with symptomatic treatment. Resume home medication. Monitor labs and vitals. DVT and GI prophylaxis. Further recommendations as per clinical course of the p atient DVT prophylaxis: dual antiplatelet therapy GI Prophylaxis: Protonix PT/OT: Pending Prognosis is guarded
[2024-06-22 11:41] LABS: Glucose,Whole Blood 215 mg/dL (70-110)
[2024-06-22] MEDS: HYDROcodone/APAP 7.5-325MG 1 EACH TAB PO ONE (12:45)
[2024-06-22] MEDS: LORATADINE 10 MG TAB PO SCH (12:45)
--- NOTE | 2024-06-22 15:12 | P.PN ---
Subjective Progress Note Date: 06/22/24 Principal diagnosis: Reason for follow-up is UTI Patient is a 58-year-old male with a past medical history significant for diabetes mellitus hypertension hyperlipidemia CVA TIA coronary artery disease with a recent admission to the hospital from 06/16/2024 till 06/18/2024 the patient was managed for chest pain patient apparently did have Garcia catheter placement for retention now presenting back to the hospital concerning for decreased output abdominal discomfort and burning he did have positive he has been diagnosed with UTI probably this consultation. On today's evaluation that is 06/22/2024,the patient denies any fever or any chills, patient is breathing comfortably on room air, the patient denies chest pain shortness of breath and no significant cough, patient denies abdominal pain, no nausea vomiting or diarrhea. Patient white count is 9.4, creatinine 3.99 urine culture have been negative Objective - Vital Signs Vital signs: Vital Signs Temp 97.1 F L 06/22/24 07:39 Pulse 65 06/22/24 07:39 Resp 17 06/22/24 07:39 BP 119/66 06/22/24 07:39 Pulse Ox 99 06/22/24 07:39 FiO2 Intake & Output 06/21/24 06/22/24 06/22/24 18:59 06:59 18:59 Intake Total 1460 Output Total 350 4300 Balance -350 -2840 Intake: Oral 960 Hemodialysis 500 Output: Urine 350 Hemodialysis 2400 Hemodialysis Net Amount 1900 Other: Voiding Method Indwelling Catheter Indwelling Catheter - Exam GENERAL DESCRIPTION: Middle-age male lying in bed in no distress RESPIRATORY SYSTEM: Unlabored breathing , decreased breath sounds at bases HEART: S1 S2 regular rate and rhythm , ABDOMEN: Soft , no tenderness EXTREMITIES: No edema feet - Labs CBC & Chem 7: 06/22/24 01:07 06/22/24 01:07 Labs: Abnormal Lab Results - Last 24 Hours (Table) 06/21/24 06/22/24 06/22/24 Range/Units 16:43 01:07 01:07 RBC 3.32 L (4.30-5.90) m/uL Hgb 9.7 L (13.0-17.5) gm/dL Hct 28.5 L (39.0-53.0) % Plt Count 144 L (150-450) k/uL Sodium 133 L (137-145) mmol/L Chloride 93 L (98-107) mmol/L BUN 30 H (9-20) mg/dL Creatinine 3.99 H (0.66-1.25) mg/dL Glucose 178 H (74-99) mg/dL POC Glucose (mg/dL) 312 H (70-110) mg/dL Calcium 8.0 L (8.4-10.2) mg/dL 06/22/24 06/22/24 Range/Units 06:00 11:39 RBC (4.30-5.90) m/uL Hgb (13.0-17.5) gm/dL Hct (39.0-53.0) % Plt Count (150-450) k/uL Sodium (137-145) mmol/L Chloride (98-107) mmol/L BUN (9-20) mg/dL Creatinine (0.66-1.25) mg/dL Glucose (74-99) mg/dL POC Glucose (mg/dL) 244 H 215 H (70-110) mg/dL Calcium (8.4-10.2) mg/dL Microbiology - Last 24 Hours (Table) 06/19/24 20:00 Urine Culture - Final Urine,Voided Assessment and Plan (1) UTI (urinary tract infection) Current Visit: Yes Status: Acute Code(s): N39.0 - URINARY TRACT INFECTION, SITE NOT SPECIFIED SNOMED Code(s): 27386308 Plan: 1patient presented to hospital with lower abdominal discomfort decreased urine output and burning did have a significantly positive UA if possible component of catheter assisted UTI not entirely excluded 2-patient is afebrile white count has been normal urine culture came back negative we will go ahead and discontinue Rocephin monitor the patient closely off antibiotic Dictation was produced using [employer] dictation software. please excuse any grammatical, word or spelling errors. Time with Patient: Less than 30
[2024-06-22 17:35] LABS: Glucose,Whole Blood 292 mg/dL (70-110)
[2024-06-22 19:55] LABS: Glucose,Whole Blood 345 mg/dL (70-110)
[2024-06-23 06:14] LABS: Glucose,Whole Blood 255 mg/dL (70-110)
[2024-06-23] MEDS: HYDROcodone/APAP 5-325MG 1 EACH TAB PO PRN (10:20)
--- NOTE | 2024-06-23 10:33 | FL ---
EXAMINATION TYPE: FL UGI air wo esophagus wo KUB DATE OF EXAM: 06/23/2024 10:16 AM COMPARISON: 03/07/2021 CLINICAL INDICATION: Male, 58 years old with history of Nausea, pain TECHNIQUE: Due to the history of hiatal hernia surgery, initially the examination was performed with thick barium. Patient became nauseous during the examination and the procedure was terminated. Patien t was cooperative but was unable to swallow additional contrast. FINDINGS: There is marked hesitancy of contrast passing through the gastroesophageal junction. Gastroesophageal junction appears somewhat irregular and persistent in narrowing, this is not a typical appearance of postsurgical change. Consider direct visualization. Tertiary contractions were evident within the patulous esophagus. IMPRESSION: 1. Limited examination. Drinking reproduce the severe nausea sensation. 2. There appears to be persistent narrowing at the gastroesophageal junction. Some mild irregularity may be present. Direct visualization is recommended. 3. [facility], , 06/23/2024 10:31 AM
--- NOTE | 2024-06-23 11:37 | P.PN ---
Subjective Patient is seen for follow-up for end-stage renal disease. Scheduled for hemodialysis today. Awaiting urology consultation. 425 mL of urine charted for 24 hours. Complaining of headache. Received morphine Objective - Vital Signs Vital signs: Vital Signs Temp 97.7 F 06/23/24 08:00 Pulse 60 06/23/24 08:00 Resp 16 06/23/24 08:00 BP 118/65 06/23/24 08:00 Pulse Ox 99 06/23/24 08:00 FiO2 Intake & Output 06/22/24 06/23/24 06/23/24 18:59 06:59 18:59 Intake Total 750 Output Total 425 Balance 325 Intake: Oral 750 Output: Urine 425 Other: Voiding Method Indwelling Catheter Indwelling Catheter Indwelling Catheter # Bowel Movements 0 - Exam patient is awake, comfortable, no acute distress. Examination of the heart S1 and S2 Examination of the lungs bilateral breath sounds are heard. Abdomen is soft nontender Examination of lower extremities shows no significant edema STEELWORKER exam grossly intact - Labs CBC & Chem 7: 06/22/24 01:07 06/22/24 01:07 Labs: Abnormal Lab Results - Last 24 Hours (Table) 06/22/24 06/22/24 06/22/24 Range/Units 11:39 17:33 19:54 POC Glucose (mg/dL) 215 H 292 H 345 H (70-110) mg/dL 06/23/24 Range/Units 06:12 POC Glucose (mg/dL) 255 H (70-110) mg/dL Assessment and Plan Assessment: 1. End-stage renal disease on hemodialysis on Thursday schedule. Scheduled for hemodialysis today. 2. Hyperkalemia associated with end-stage renal disease, improved. 3. Pain with Garcia catheter placement 4. Pyuria rule out UTI 5. Coronary artery disease, status post cardiac catheterization on 06/17/2024 6. CK D mineral bone disorder Plan: hemodialysis today.
[2024-06-23 12:07] LABS: Glucose,Whole Blood 287 mg/dL (70-110)
--- NOTE | 2024-06-23 12:22 | P.PN ---
Subjective Progress Note Date: 06/23/24 SURGICAL PROGRESS NOTE CHIEF COMPLAINT: Abdominal pain HISTORY OF PRESENT ILLNESS: Patient reports some mild epigastric discomfort and dysphagia. He has had no further nausea or vomiting. He does complain of a headache. Upper GI reports limited examination. Drinking reproduces severe nausea sensation. There appears to be persistent narrowing at the GE junction. Some mild irregularity may be present. Presbyesophagus. PHYSICAL EXAM: VITAL SIGNS: Reviewed. GENERAL: Well-developed in no acute distress. ABDOMEN: Soft. Nondistended. mild epigastric tenderness with palpation ASSESSMENT: 1. Abdominal pain with nausea and vomiting improving. Upper GI reports there appears to be persistent narrowing at the GE junction and some mild irregularity may be present. Presbyesophagus PLAN: -Upper GI results reviewed with Dr. Kuo. He is recommending to stay on a full liquid diet at discharge and to follow-up outpatient for EGD. -Patient can be discharge from surgical standpoint. Surgical service will sign off. Please call with any questions or concerns. Physician Beater Engineer Helper note has been reviewed by physician. Signing provider agrees with the documented findings, assessment, and plan of care. Objective - Vital Signs Vital signs: Vital Signs Temp 97.7 F 06/23/24 08:00 Pulse 60 06/23/24 08:00 Resp 16 06/23/24 08:00 BP 118/65 06/23/24 08:00 Pulse Ox 99 06/23/24 08:00 FiO2 Intake & Output 06/22/24 06/23/24 06/23/24 18:59 06:59 18:59 Intake Total 750 Output Total 425 Balance 325 Intake: Oral 750 Output: Urine 425 Other: Voiding Method Indwelling Catheter Indwelling Catheter Indwelling Catheter # Bowel Movements 0 - Labs CBC & Chem 7: 06/22/24 01:07 06/22/24 01:07 Labs: Abnormal Lab Results - Last 24 Hours (Table) 06/22/24 06/22/24 06/23/24 Range/Units 17:33 19:54 06:12 POC Glucose (mg/dL) 292 H 345 H 255 H (70-110) mg/dL 06/23/24 Range/Units 12:06 POC Glucose (mg/dL) 287 H (70-110) mg/dL
--- NOTE | 2024-06-23 15:12 | P.PN ---
Subjective Progress Note Date: 06/23/24 Principal diagnosis: Reason for follow-up is UTI Patient is a 58-year-old male with a past medical history significant for diabetes mellitus hypertension hyperlipidemia CVA TIA coronary artery disease with a recent admission to the hospital from 06/16/2024 till 06/18/2024 the patient was managed for chest pain patient apparently did have Garcia catheter placement for retention now presenting back to the hospital concerning for decreased output abdominal discomfort and burning he did have positive he has been diagnosed with UTI prompting this consultation. On today's evaluation that is 06/23/2024,the patient remains to be afebrile, patient is on room air not requiring supplemental oxygen and denies any shortness of breath no chest pain or cough.Patient complaining of some epigastric component nausea but no vomiting no diarrhea has been reported. Patient white count is 5.3, creatinine 0.70 culture remains to be negative Objective - Vital Signs Vital signs: Vital Signs Temp 97.8 F 06/23/24 14:11 Pulse 63 06/23/24 14:11 Resp 18 06/23/24 14:11 BP 125/69 06/23/24 14:11 Pulse Ox 99 06/23/24 14:11 FiO2 Intake & Output 06/22/24 06/23/24 06/23/24 18:59 06:59 18:59 Intake Total 750 Output Total 425 Balance 325 Intake: Oral 750 Output: Urine 425 Other: Voiding Method Indwelling Catheter Indwelling Catheter Indwelling Catheter # Bowel Movements 0 - Exam GENERAL DESCRIPTION: Middle-age male lying in bed in no distress RESPIRATORY SYSTEM: Unlabored breathing , decreased breath sounds at bases HEART: S1 S2 regular rate and rhythm , ABDOMEN: Soft , no tenderness EXTREMITIES: No edema feet - Labs CBC & Chem 7: 06/22/24 01:07 06/22/24 01:07 Labs: Abnormal Lab Results - Last 24 Hours (Table) 06/22/24 06/22/24 06/23/24 Range/Units 17:33 19:54 06:12 POC Glucose (mg/dL) 292 H 345 H 255 H (70-110) mg/dL 06/23/24 Range/Units 12:06 POC Glucose (mg/dL) 287 H (70-110) mg/dL Assessment and Plan (1) UTI (urinary tract infection) Current Visit: Yes Status: Acute Code(s): N39.0 - URINARY TRACT INFECTION, SITE NOT SPECIFIED SNOMED Code(s): 39185304 Plan: 1patient presented to hospital with lower abdominal discomfort decreased urine output and burning did have a significantly positive UA if possible component of catheter assisted UTI not entirely excluded 2-patient is afebrile white count has been normal urine culture came back negative patient Rocephin has been discontinued yesterday seem to be doing well we will monitor closely off antibiotic Dictation was produced using [employer] dictation software. please excuse any grammatical, word or spelling errors. Time with Patient: Less than 30
[2024-06-23 16:19] LABS: Glucose,Whole Blood 98 mg/dL (70-110)
[2024-06-23] MEDS: MIDODRINE 5 MG TAB PO PRN (19:30)
[2024-06-23 20:52] LABS: Glucose,Whole Blood 187 mg/dL (70-110)
[2024-06-24 06:19] LABS: Glucose,Whole Blood 184 mg/dL (70-110)
[2024-06-24 08:17] LABS: HCT 26.9 % (39.0-53.0); MCH 28.8 pg (25.0-35.0); MCHC 33.6 g/dL (31.0-37.0); MCV 85.6 fL (80.0-100.0); Mean Platelet Volume 8.3; Platelet Count 116 k/uL (150-450); RBC 3.14 m/uL (4.30-5.90); RDW 15.5 % (11.5-15.5); WBC 6.7 k/uL (3.8-10.6)
[2024-06-24 08:24] LABS: ALT 22 U/L (4-49); AST 24 U/L (17-59); African American GFR (CKD) 15 (>60 ml/min/1.73 sqM); Albumin 4.1 g/dL (3.5-5.0); Albumin/Globulin Ratio 1.7; Alkaline Phosphatase 114 U/L (38-126); Anion Gap 12 mmol/L; Blood Urea Nitrogen 31 mg/dL (9-20); Calcium 7.8 mg/dL (8.4-10.2); Carbon Dioxide 27 mmol/L (22-30); Chloride 93 mmol/L (98-107); Globulin 2.4 g/dL; Glucose 196 mg/dL (74-99); Non-African American GFR(CKD) 13 (>60 ml/min/1.73 sqM); Sodium 132 mmol/L (137-145); Total Bilirubin 0.4 mg/dL (0.2-1.3); Total Protein 6.5 g/dL (6.3-8.2)
[2024-06-24 11:29] LABS: Glucose,Whole Blood 258 mg/dL (70-110)
[2024-06-24 12:41] VITALS: BMI 25.8
--- NOTE | 2024-06-24 12:50 | P.GSCN ---
History of Present Illness Consult date: 06/24/24 Reason for Consult: Urinary retention Requesting physician: Diana Broderick History of present illness: The patient is a 57 yo diabetic with ESRD. He has a history of chronic urinary retention despite undergoing a TURP in 2018. 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 He is followed by Dr. Harris and was last seen in the office June 26, 2023. He has been without a catheter for most of the past year, and denies difficulty voiding. He is unable to quantitate his 24-hour urine production. He states that he is unable to perform intermittent self-catheterization. He underwent cardiac catheterization in June 17, 2024. A Garcia catheter was placed following that procedure when the postvoid residual was found to be 1 L. The patient experienced discomfort following catheter placement but states this has resolved. Review of Systems - Genitourinary Reports as per HPI Past Medical History Past Medical History: Coronary Artery Disease (CAD), Chest Pain / Angina, CVA/TIA, Diabetes Mellitus, Eye Disorder, GERD/Reflux, Hearing Disorder / Deafness, Hyperlipidemia, Hypertension, Myocardial Infarction ([place]), Prostate Disorder, Renal Disease, Rheumatoid Arthritis (RA) Additional Past Medical History / Comment(s): [place] X2 in 2014 and 02/2023., 02 3L/[place]., Hx stroke Apr 2017. , hx tia's ., left side weakness., Migranes., Diab etic neuropathy arms and legs, tremors off and on, circulation problems, uses quad cane and wheelchair., Kidney disease with dialysis [facility]. Hx Pancreatitis., Legally blind, some trouble hearing. Enlarged prostate, trouble urinating. , hx of recent uti's., anemia., constipation Last Myocardial Infarction Date:: 02/2023 History of Any Multi-Drug Resistant Organisms: None Reported Past Surgical History: Cholecystectomy, Heart Catheterization, Heart Catheterization With Stent, Heart Catheterization With Stent, Hernia Repair, Prostate Surgery Additional Past Surgical History / Comment(s): Dialysis Port Placed - 03/14/23, HIATAL HERNIA REPAIR - 01/23/21., states hx 5 heart caths with 5 stents. Past Anesthesia/Blood Transfusion Reactions: No Reported Reaction Additional Past Anesthesia/Blood Transfusion Reaction / Comm: . Date of Last Stent Placement:: 05/07/23 Past Psychological History: Anxiety, Depression Additional Psychological History / Comment(s): Pt resides with his spouse. He uses a quad cane or walker to ambulate. He is legally blind. He reads minimally with magnifying glass and signs his name only now. His spouse drives him to [email or web address]. Smoking Status: Never smoker Past Alcohol Use History: None Reported Past Drug Use History: None Reported - Past Family History Mother Family Medical History: CVA/TIA, Diabetes Mellitus, Hypertension Additional Family Medical History / Comment(s): Parkinson's. Father Family Medical History: CVA/TIA, Diabetes Mellitus, Myocardial Infarction ([place]) Additional Family Medical History / Comment(s): Father of a [place] in his 50s. Medications and Allergies Home Medications Medication Instructions Recorded Confirmed Type Pantoprazole [Protonix] 40 mg PO BID 11/05/17 06/20/24 History Tamsulosin [Flomax] 0.4 mg PO BID 11/05/17 06/20/24 History Citalopram Hydrobromide [CeleXA] 20 mg PO DAILY 12/12/18 06/20/24 History allopurinoL [Zyloprim] 100 mg PO DAILY 04/05/19 06/20/24 History Atorvastatin [Lipitor] 80 mg PO HS 12/30/19 06/20/24 History Citalopram Hydrobromide [CeleXA] 40 mg PO DAILY 06/29/20 06/20/24 History Folic Acid/Vit B Complex and C 0.8 mg PO DAILY 05/05/23 06/20/24 History [Nephro-Cirilo Tablet] Losartan [Cozaar] 25 mg PO DAILY 09/19/23 06/20/24 History Metoprolol Succinate (ER) [Toprol 50 mg PO DAILY 09/19/23 06/20/24 History XL] Ranolazine [Ranexa] 500 mg PO Q12HR #60 tab 09/21/23 06/20/24 Rx Furosemide [Lasix] 80 mg PO DAILY 10/16/23 06/20/24 History Nitroglycerin Sl Tabs [Nitrostat] 0.4 mg SL Q5M PRN 10/16/23 06/20/24 History hydrALAZINE HCL [Apresoline] 50 mg PO TID 04/12/24 06/20/24 History Calcium Carbonate [Tums] 500 mg PO TID 06/16/24 06/20/24 History Clopidogrel [Plavix] 75 mg PO DAILY 06/16/24 06/20/24 History NIFEdipine XL [Procardia XL] 60 mg PO DAILY 06/16/24 06/20/24 History Aspirin 81 mg PO DIRECTED 06/20/24 06/20/24 History Isosorbide Mononitrate ER [Imdur] 15 mg PO DAILY #0 06/24/24 06/20/24 Rx Loratadine [Claritin] 10 mg PO DAILY #30 tab 06/24/24 Rx Midodrine [ProAmatine] 5 mg PO DAILY PRN #30 tab 06/24/24 Rx Oxymetazoline 0.05% Nasl [place] 2 spray NASAL BID PRN #1 dispenser 06/24/24 Rx [Afrin 0.05% Nasal [place]] Allergies Allergy/AdvReac Type Severity Reaction Status Date / Time hydromorphone AdvReac Confusion Verified 06/20/24 09:34 Iodinated Contrast Media AdvReac Nausea & Verified 06/20/24 09:34 [Iodinated Contrast- Oral Vomiting and IV Dye] morphine AdvReac Vomiting Verified 06/20/24 09:34 sucralfate AdvReac Nausea & Verified 06/20/24 09:34 Vomiting Surgical - Exam Vital Signs Temp Pulse Resp BP Pulse Ox 97.9 F 82 18 177/68 100 06/19/24 19:29 06/19/24 19:29 06/19/24 19:29 06/19/24 19:29 06/19/24 19:29 - General well developed, well nourished, no distress - Respiratory normal respiratory effort - Genitourinary Garcia catheter intact and draining clear urine. - Psychiatric oriented to time, oriented to person, oriented to place, speech is normal, memory intact Results - Labs 06/24/24 07:50 06/24/24 07:50 Abnormal Lab Results - Last 24 Hours (Table) 06/23/24 06/23/24 06/24/24 Range/Units 12:06 20:51 06:18 POC Glucose (mg/dL) 287 H 187 H 184 H (70-110) mg/dL Assessment and Plan (1) Retention of urine, unspecified Current Visit: Yes Status: Acute Code(s): R33.9 - RETENTION OF URINE, UNSPECIFIED SNOMED Code(s): 577535578 Plan: I have suggested to the patient that the Garcia catheter remain in place. He will follow-up with Dr. Harris as an outpatient.
[2024-06-24 13:12] VITALS: BP 118/61; PULSE 65; RESP 17; TEMP 97.6
--- NOTE | 2024-06-24 14:55 | P.PN ---
Subjective Progress Note Date: 06/24/24 Principal diagnosis: Reason for follow-up is UTI Patient is a 58-year-old male with a past medical history significant for diabetes mellitus hypertension hyperlipidemia CVA TIA coronary artery disease with a recent admission to the hospital from 06/16/2024 till 06/18/2024 the patient was managed for chest pain patient apparently did have Garcia catheter placement for retention now presenting back to the hospital concerning for decreased output abdominal discomfort and burning he did have positive he has been diagnosed with UTI prompting this consultation. On today's evaluation that is 06/24/2024, the patient continues to be afebrile, the patient is on room air and breathing comfortably, the Pt denies having any chest pain or cough, the patient denies having any abdominal pain no vomiting or any diarrhea has been reported by the nursing staff. Patient white count 6.7, creatinine is 4.75 Objective - Vital Signs Vital signs: Vital Signs Temp 97.6 F 06/24/24 13:11 Pulse 65 06/24/24 13:11 Resp 17 06/24/24 13:11 BP 118/61 06/24/24 13:11 Pulse Ox 100 06/24/24 13:11 FiO2 Intake & Output 06/23/24 06/24/24 06/24/24 18:59 06:59 18:59 Intake Total 400 Output Total 3600 Balance -3200 Weight 79.379 kg Intake: Hemodialysis 400 Output: Urine 200 Hemodialysis 1900 Hemodialysis Net Amount 1500 Other: Voiding Method Indwelling Catheter Indwelling Catheter Indwelling Catheter - Exam GENERAL DESCRIPTION: Middle-age male lying in bed in no distress RESPIRATORY SYSTEM: Unlabored breathing , decreased breath sounds at bases HEART: S1 S2 regular rate and rhythm , ABDOMEN: Soft , no tenderness EXTREMITIES: No edema feet - Labs CBC & Chem 7: 06/24/24 07:50 06/24/24 07:50 Labs: Abnormal Lab Results - Last 24 Hours (Table) 06/23/24 06/24/24 06/24/24 Range/Units 20:51 06:18 07:50 RBC 3.14 L (4.30-5.90) m/uL Hgb 9.0 L (13.0-17.5) gm/dL Hct 26.9 L (39.0-53.0) % Plt Count 116 L (150-450) k/uL Sodium (137-145) mmol/L Chloride (98-107) mmol/L BUN (9-20) mg/dL Creatinine (0.66-1.25) mg/dL Glucose (74-99) mg/dL POC Glucose (mg/dL) 187 H 184 H (70-110) mg/dL Calcium (8.4-10.2) mg/dL 06/24/24 06/24/24 Range/Units 07:50 11:26 RBC (4.30-5.90) m/uL Hgb (13.0-17.5) gm/dL Hct (39.0-53.0) % Plt Count (150-450) k/uL Sodium 132 L (137-145) mmol/L Chloride 93 L (98-107) mmol/L BUN 31 H (9-20) mg/dL Creatinine 4.75 H (0.66-1.25) mg/dL Glucose 196 H (74-99) mg/dL POC Glucose (mg/dL) 258 H (70-110) mg/dL Calcium 7.8 L (8.4-10.2) mg/dL Assessment and Plan (1) UTI (urinary tract infection) Current Visit: Yes Status: Acute Code(s): N39.0 - URINARY TRACT INFECTION, SITE NOT SPECIFIED SNOMED Code(s): 28106031 Plan: 1patient presented to hospital with lower abdominal discomfort decreased urine output and burning did have a significantly positive UA if possible component of catheter assisted UTI not entirely excluded 2-patient is afebrile white count has been normal urine culture came back negative patient Rocephin has been discontinued patient still doing well off ant ibiotics urology recommending to continue with the Garcia catheter on discharge and need to be monitored closely decrease risk of catheter assisted UTI Dictation was produced using [employer] software. please excuse any grammatical, word or spelling errors. Time with Patient: Less than 30
--- NOTE | 2024-06-24 18:03 | P.PN ---
Subjective Progress Note Date: 06/23/24 HISTORY OF PRESENT ILLNESS: This is a pleasant 58 years old male with multiple medical problems Presents because of decreased urine output from recently placed catheter. He is a known case of end-stage renal disease on hemodialysis, however he makes urine On admission also have some GI symptoms like nausea vomiting and mild abdominal pain. He is afebrile with no leukocytosis Hemoglobin 10.7 and 9.7 He is on aspirin and Plavix Started on ceftriaxone and normal saline at 40 mL/h. Also patient has been complaining from pain in his private area after placement of the Garcia catheter. Patient has no urine culture This morning he states that he feels better his with nausea vomiting is better he is able to eat this most of his breakfast with minimal abdominal tenderness. No diarrhea. I offered for the patient to take the Garcia catheter out and monitor him, he declines and he wants to see urologist, he sees Dr. Lambert in the outpatient setting Currently he denies chest pain or dyspnea 06/22/24 Patient states that he still complains from burning in his penile area and some suprapubic tenderness, but there is some reports of improvement Also states that he is having sinus symptoms for about 2 months and ask some medicine for it, he is using nasal spray with no benefit of oxytal. Also histor y started complaining of some frontal headache, felt like sharp radiating little to the back about 8/10 as per patient with no double vision or slurred speech Still has Garcia catheter Cardiology signed off the case, surgery team recommended outpatient colonoscopy. He remains on ceftriaxone for UTI. Urine culture is negative for growth. urology team consult is requested 1/2: Patient is laying down in bed in no apparent distress, he continues to have a significant amount of dysphagia, he was placed on soft diet, patient underwent esophagram that did show evidence of presbyesophagus as well as narrowing of the gastroesophageal junction with irregularities that recommended for the patient to have an EGD done, general surgery have signed off on the patient, and they stated that it would be done as an outpatient patient will have hemodialysis today, and he will likely be discharged home in the next 24 hours. Urology will be seeing the patient and they are recommended for the patient to have a Garcia catheter in place and follow-up with Dr. Lambert as an outpatient for a void trial. REVIEW OF SYSTEMS: Constitutional: No documented fever, no chills, no night sweats. No weight change. Positive for weakness, fatigue or lethargy. No daytime sleepiness. EENT: No headache. No blurred vision or double vision, no loss of vision. No loss of Hearing, no ringing in the ears, no dizziness. No nasal drainage or congestion. No epistaxis. No sore throat. Lungs: Positive for shortness of breath, no cough, no sputum production. No wheezing. Reports dyspnea with activity. Cardiovascular: No chest pain, no lower extremity edema. No palpitations. No paroxysmal nocturnal dyspnea. No orthopnea. No lightheadedness or dizziness. No syncopal episodes. Abdominal: Reports abdominal pain. Positive for nausea, vomiting. No diarrhea. No constipation. No bloody or tarry stools reports loss of appetite. Positive for dysphagia. Genitourinary: No dysuria, increased frequency, urgency. Positive for urinary retention status post Garcia catheterization. Musculoskeletal: No myalgias. No muscle weakness, no gait dysfunction, no frequent falls. No back pain. No neck pain. Integumentary: No wounds, no lesions. No rash or pruritus. No unusual bruising. No change in hair or nails. Neurologic: No aphasia. No facial droop. No change in mentation. No head injury. No headache. No paralysis. No paresthesia. Psychiatric: Positive for depression. No anxiety. No mood swings. Endocrine: No abnormal blood sugars. No weight change. PHYSICAL EXAMINATION: General: 58-year-old male laying down in bed in no apparent distress. HEENT: Head is atraumatic, normocephalic, pupils were equal round reactive to light and recommendation, extraocular muscle movement were intact, sclera nonicteric, conjunctivae were pale, mucous membranes of the mouth are somewhat dry. Neck: Supple, no JVP, normal carotid upstroke bilaterally, no lymphadenopathy. Chest: Decreased breath sounds at the bases, few rhonchi, no expiratory wheezes, no chest wall tenderness, no intercostal retractions. Heart: First heart sound is normal, second heart sounds normal there is systolic ejection murmur 2/6 located in the left sternal border. Abdomen: Soft, nontender, nondistended, positive bowel sounds. Extremities: There is no edema no calf tenderness DP +2 bilaterally. Neurologic examination: Patient is awake alert and oriented x3, cranial nerves II-12 appear grossly intact, muscle power were 5 out of 5 in upper extremities and 5 out of 5 in bilateral lower extremities, deep tendon reflexes normal bilaterally. ASSESSMENT AND PLAN: 1. Acute urinary tract infection is suspected . Patient is doing better off antibiotic. 2. Bilateral sinusitis with frontal headache. Appears to be stable at this point in time. 3. End-stage renal disease on hemodialysis continue with hemodialysis, started the patient on midodrine 5 mg before dialysis. 4. Mild acute gastroenteritis, resolved status post upper GI that showed evidence of presbyesophagus as well as narrowing of the gastroesophageal junction with irregularities the recommendation for the patient to go for an EGD as an outpatient. 5. penile pain related to placement of Garcia catheter monitor the patient symptoms very closely. 6. Coronary artery disease. Patient has been followed by cardiology continue patient on atorvastatin 80 mg once every day, aspirin 81 mg once every day, Plavix 75 mg once every day, isosorbide mononitrate 50 mg once every day, continue metoprolol ER 50 mg orally once every day. 7. Hypertension and hypertensive cardiovascular disease. Continue patient on metoprolol ER 50 mg once every day, losartan 25 mg once every day, nifedipine 60 mg once every day, hydralazine 50 mg orally 3 times every day, monitor the patient blood pressure very closely. 8. Mixed hyperlipidemia. Continue patient on atorvastatin 80 mg once every day, monitor lipid panel, keep LDL 55. 9. History of gout. Continue allopurinol 100 mg orally once every day. 10. Depression. Continue patient on citalopram 40 mg orally once every day. 11. Urinary retention status post Garcia catheterization patient will be seen in consultation by urology 12. Patient will likely be discharged home tomorrow morning. Objective - Vital Signs Vital signs: Vital Signs Temp 97.8 F 06/23/24 01:31 Pulse 60 06/23/24 01:31 Resp 14 06/23/24 01:31 BP 121/67 06/23/24 01:31 Pulse Ox 97 06/23/24 01:31 FiO2 Intake & Output 06/22/24 06/22/24 06/23/24 06:59 18:59 06:59 Intake Total 1460 750 Output Total 4300 425 Balance -2840 325 Intake: Oral 960 750 Hemodialysis 500 Output: Urine 425 Hemodialysis 2400 Hemodialysis Net Amount 1900 Other: Voiding Method Indwelling Catheter Indwelling Catheter Indwelling Catheter # Bowel Movements 0 - Labs CBC & Chem 7: 06/24/24 07:50 06/24/24 07:50 Labs: Abnormal Lab Results - Last 24 Hours (Table) 06/22/24 06/22/24 06/22/24 Range/Units 11:39 17:33 19:54 POC Glucose (mg/dL) 215 H 292 H 345 H (70-110) mg/dL 06/23/24 Range/Units 06:12 POC Glucose (mg/dL) 255 H (70-110) mg/dL
--- NOTE | 2024-06-24 18:27 | P.PN ---
Subjective Patient is seen for follow-up for end-stage renal disease. Scheduled for hemodialysis in a.m. No significant complaints today. Objective - Vital Signs Vital signs: Vital Signs Temp 97.6 F 06/24/24 13:11 Pulse 65 06/24/24 13:11 Resp 17 06/24/24 13:11 BP 118/61 06/24/24 13:11 Pulse Ox 100 06/24/24 13:11 FiO2 Intake & Output 06/23/24 06/24/24 06/24/24 18:59 06:59 18:59 Intake Total 400 Output Total 3600 Balance -3200 Weight 79.379 kg Intake: Hemodialysis 400 Output: Urine 200 Hemodialysis 1900 Hemodialysis Net Amount 1500 Other: Voiding Method Indwelling Catheter Indwelling Catheter Indwelling Catheter - Exam patient is awake, comfortable, no acute distress. Examination of the heart S1 and S2 Examination of the lungs bilateral breath sounds are heard. Abdomen is soft nontender Examination of lower extremities shows no significant edema CONDUIT INST[employer]ER exam grossly intact - Labs CBC & Chem 7: 06/24/24 07:50 06/24/24 07:50 Labs: Abnormal Lab Results - Last 24 Hours (Table) 06/23/24 06/24/24 06/24/24 Range/Units 20:51 06:18 07:50 RBC 3.14 L (4.30-5.90) m/uL Hgb 9.0 L (13.0-17.5) gm/dL Hct 26.9 L (39.0-53.0) % Plt Count 116 L (150-450) k/uL Sodium (137-145) mmol/L Chloride (98-107) mmol/L BUN (9-20) mg/dL Creatinine (0.66-1.25) mg/dL Glucose (74-99) mg/dL POC Glucose (mg/dL) 187 H 184 H (70-110) mg/dL Calcium (8.4-10.2) mg/dL 06/24/24 06/24/24 Range/Units 07:50 11:26 RBC (4.30-5.90) m/uL Hgb (13.0-17.5) gm/dL Hct (39.0-53.0) % Plt Count (150-450) k/uL Sodium 132 L (137-145) mmol/L Chloride 93 L (98-107) mmol/L BUN 31 H (9-20) mg/dL Creatinine 4.75 H (0.66-1.25) mg/dL Glucose 196 H (74-99) mg/dL POC Glucose (mg/dL) 258 H (70-110) mg/dL Calcium 7.8 L (8.4-10.2) mg/dL Assessment and Plan Assessment: 1. End-stage renal disease on hemodialysis on Thursday schedule. 2. Hyperkalemia associated with end-stage renal disease, improved. 3. Pain with Garcia catheter placement, improved 4. Pyuria urine culture is negative 5. Coronary artery disease, status post cardiac catheterization on 06/17/2024 6. CK D mineral bone disorder Plan: hemodialysis in a.m.
--- NOTE | 2024-06-27 16:09 | CDI ---
Documentation Clarification Form Date: 06/27/2024 03:55:38 PM From: Carrie Hoffman Phone: Admit Date: 06/19/2024 09:58:00 PM Patient Name: Kashmir Tinajero Visit Number: [id number] Discharge Date: 06/24/2024 03:25:00 PM ATTENTION: The Clinical Documentation Specialists (CDI) and [facility] Coding Staff appreciate your assistance in clarifying documentation. Please respond to the clarification below the line at the bottom and electronically sign. The CDI & [facility] Coding staff will review the response and follow-up if needed. Please note: Queries are made part of the Legal Health Record. If you have any questions, please contact the author of this message via ITS. Doctor/Provider: Lauren Angel UTI is documented in consult note on 06/20/2024 which may lack sufficient clinical evidence/support in the medical record. Additional clarification is requested. History/Risk Factors: This is a 58-year-old male with history ofCAD,DM,CVA,AMI, renal problems presenting via EMS complaining of decreased output fromFoley catheter since discharge from hospital yesterday. Patient states he was discharged after recent admission and subsequentheart catheterizationyesterday. Endorses throbbingabdominal pain(9/10) throughout the entirety of his abdomen associatednausea/vomitingand blood in hisvomityesterday. Clinical Indicators: On 06/20 consult note -Patient presented to hospital with lower abdominal discomfort decreased urine output andburningdid have a significantly positive UA ifpossiblecomponent of catheter assistedUTInot entirely excluded On 06/23 pn -Also patient has been complaining frompainin his private area afterplacement of the Garcia catheter. Patienthas nourine culture He remains on ceftriaxone forUTI.Urine culture is negative for growth. Urology team consult is requested On 06/24 -patient is afebrile white count has been normal urine culture came back negative patient Rocephin has been discontinued patient still doing well off antibiotics urology recommending to continue with theFoley catheteron discharge and need to be monitored closely decrease risk of catheter assisted UTI Treatment: Rocephin 2 g daily while waiting for the culture to finalize, ceftriaxone Please clarify if UTI is a valid diagnosis? [ x] No, UTI is ruled out [ ] Yes, UTI is present as evidence by (additional clinical support): [ ] Other (please specify diagnosis) [ ] Unable to determine (Template Last Revised: November 2023) MTDD
== END 2024-06-24 15:25 | disposition home or self-care (01) | DRG 391 ==
LOC: EC 19:17 → 5NMEDONC 21:57 → OBSVTOIN 21:58 → 5NMEDONC 22:08 → 1SOBS 06-20 07:12 → 4SSUR 06-23 14:16
PROVIDERS: ADMIT Internal Medicine; ATTEND Internal Medicine
PROC: 5A1D70Z Performance of Urinary Filtration, Intermittent, Less than 6 Hours Per Day (ICD-10-PCS; principal; 2024-06-20)
DX: K52.9 Noninfective gastroenteritis and colitis, unspecified (principal); N18.6 End stage renal disease; T83.84XA Pain due to genitourinary prosthetic devices, implants and grafts, initial encounter; I12.0 Hypertensive chronic kidney disease with stage 5 chronic kidney disease or end stage renal disease; E11.40 Type 2 diabetes mellitus with diabetic neuropathy, unspecified; I25.10 Atherosclerotic heart disease of native coronary artery without angina pectoris; E78.2 Mixed hyperlipidemia; M06.9 Rheumatoid arthritis, unspecified; K21.9 Gastro-esophageal reflux disease without esophagitis; E11.22 Type 2 diabetes mellitus with diabetic chronic kidney disease; M89.8X9 Other specified disorders of bone, unspecified site; N31.9 Neuromuscular dysfunction of bladder, unspecified; K29.00 Acute gastritis without bleeding; I16.0 Hypertensive urgency; J32.8 Other chronic sinusitis; E87.5 Hyperkalemia; K22.89 Other specified disease of esophagus; M10.9 Gout, unspecified; F32.A Depression, unspecified; I25.2 Old myocardial infarction; Z99.2 Dependence on renal dialysis; Z86.73 Personal history of transient ischemic attack (TIA), and cerebral infarction without residual deficits; Z91.041 Radiographic dye allergy status; Z88.2 Allergy status to sulfonamides; Z88.6 Allergy status to analgesic agent; Z79.899 Other long term (current) drug therapy; Z95.5 Presence of coronary angioplasty implant and graft
CPT/HCPCS: 36415; 71046; 74246; 80053; 81001; 82150; 83605; 83690; 83735; 84100; 84484; 85025; 85027; 85610; 85730; 87086; 90935; 93005; 94760; 99285

== ENCOUNTER 2024-06-28 11:49 | Inpatient (IN) | payer MEDICARE ==
--- NOTE | 2024-06-28 13:00 | ED ---
General Adult HPI - General Chief complaint: Weakness Stated complaint: dizziness Time Seen by Provider: 06/28/24 12:15 Source: patient, RN notes reviewed, old records reviewed Mode of arrival: wheelchair Limitations: no limitations - History of Present Illness Initial comments: This is a 58-year-old male who presents to the emergency department with a past medical history significant for dialysis which she just got yesterday but he was also due to go again today because he missed over the weekend. Patient states he was recently diagnosed with a bad urinary tract infection and was admitted to the hospital and released on Thursday. Patient states he felt good when he went home however on Thursday he started having vomiting and diarrhea. Patient states he continued to feel more more weak on the Thursday and today so he decided come in. Patient also states he was somewhat dizzy today. Patient denies any fever. Patient has any vomiting or diarrhea today. Patient [place] any chest pain difficulty breathing shortness of breath. Patient has a Garcia catheter in place since he left the hospital. - Related Data Home Medications Medication Instructions Recorded Confirmed Pantoprazole [Protonix] 40 mg PO BID 11/05/17 06/20/24 Tamsulosin [Flomax] 0.4 mg PO BID 11/05/17 06/20/24 Citalopram Hydrobromide [CeleXA] 20 mg PO DAILY 12/12/18 06/20/24 allopurinoL [Zyloprim] 100 mg PO DAILY 04/05/19 06/20/24 Atorvastatin [Lipitor] 80 mg PO HS 12/30/19 06/20/24 Citalopram Hydrobromide [CeleXA] 40 mg PO DAILY 06/29/20 06/20/24 Folic Acid/Vit B Complex and C 0.8 mg PO DAILY 05/05/23 06/20/24 [Nephro-Cirilo Tablet] Losartan [Cozaar] 25 mg PO DAILY 09/19/23 06/20/24 Metoprolol Succinate (ER) [Toprol 50 mg PO DAILY 09/19/23 06/20/24 XL] Furosemide [Lasix] 80 mg PO DAILY 10/16/23 06/20/24 Nitroglycerin Sl Tabs [Nitrostat] 0.4 mg SL Q5M PRN 10/16/23 06/20/24 hydrALAZINE HCL [Apresoline] 50 mg PO TID 04/12/24 06/20/24 Calcium Carbonate [Tums] 500 mg PO TID 06/16/24 06/20/24 Clopidogrel [Plavix] 75 mg PO DAILY 06/16/24 06/20/24 NIFEdipine XL [Procardia XL] 60 mg PO DAILY 06/16/24 06/20/24 Aspirin 81 mg PO DIRECTED 06/20/24 06/20/24 Previous Rx's Medication Instructions Recorded Ranolazine [Ranexa] 500 mg PO Q12HR #60 tab 09/21/23 Isosorbide Mononitrate ER [Imdur] 15 mg PO DAILY #0 06/24/24 Loratadine [Claritin] 10 mg PO DAILY #30 tab 06/24/24 Midodrine [ProAmatine] 5 mg PO DAILY PRN #30 tab 06/24/24 Oxymetazoline 0.05% Nasl [place] 2 spray NASAL BID PRN #1 dispenser 06/24/24 [Afrin 0.05% Nasal [place]] Allergies Allergy/AdvReac Type Severity Reaction Status Date / Time hydromorphone AdvReac Confusion Verified 06/28/24 12:05 Iodinated Contrast Media AdvReac Nausea & Verified 06/28/24 12:05 [Iodinated Contrast- Oral Vomiting and IV Dye] morphine AdvReac Vomiting Verified 06/28/24 12:05 sucralfate AdvReac Nausea & Verified 06/28/24 12:05 Vomiting Review of Systems ROS Statement: Those systems with pertinent positive or pertinent negative responses have been documented in the HPI. ROS Other: All systems not noted in ROS Statement are negative. Past Medical History Past Medical History: Coronary Artery Disease (CAD), Chest Pain / Angina, CVA/TIA, Diabetes Mellitus, Eye Disorder, GERD/Reflux, Hearing Disorder / Deafness, Hyperlipidemia, Hypertension, Myocardial Infarction ([place]), Prostate Disorder, Renal Disease, Rheumatoid Arthritis (RA) Additional Past Medical History / Comment(s): [place] X2 in 2014 and 02/2023., 02 3L/N [place]., Hx stroke Apr 2017. , hx tia's ., left side weakness., Migranes., Diabetic neuropathy arms and legs, tremors off and on, circulation problems, uses quad cane and wheelchair., Kidney disease with dialysis TUTHSA. Hx Pancreatitis., Legally blind, some trouble hearing. Enlarged prostate, trouble urinating. , hx of recent uti's., anemia., constipation Last Myocardial Infarction Date:: 02/2023 History of Any Multi-Drug Resistant Organisms: None Reported Past Surgical History: Cholecystectomy, Heart Catheterization, Heart Catheterization With Stent, Heart Catheterization With Stent, Hernia Repair, Prostate Surgery Additional Past Surgical History / Comment(s): Dialysis Port Placed - 03/14/23, H IATAL HERNIA REPAIR - 01/23/21., states hx 5 heart caths with 5 stents. Past Anesthesia/Blood Transfusion Reactions: No Reported Reaction Additional Past Anesthesia/Blood Transfusion Reaction / Comment(s): . Date of Last Stent Placement:: 05/07/23 Past Psychological History: Anxiety, Depression Smoking Status: Never smoker Past Alcohol Use History: None Reported Past Drug Use History: None Reported - Past Family History Mother Family Medical History: CVA/TIA, Diabetes Mellitus, Hypertension Additional Family Medical History / Comment(s): Parkinson's. Father Family Medical History: CVA/TIA, Diabetes Mellitus, Myocardial Infarction ([place]) Additional Family Medical History / Comment(s): Father of a MN in his 50s. General Exam - General Exam Comments Initial Comments: GENERAL: Patient is well-developed and well-nourished. Patient is nontoxic and well- hydrated and is in mild distress. ENT: Neck is soft and supple. No significant lymphadenopathy is noted. Oropharynx is clear. Moist mucous membranes. Neck has full range of motion without eliciting any pain. EYES: The sclera were anicteric and conjunctiva were pink and moist. Extraocular movements were intact and pupils were equal round and reactive to light. Eyelids were unremarkable. PULMONARY: Unlabored respirations. Good breath sounds bilaterally. No audible rales rhonchi or wheezing was noted. CARDIOVASCULAR: There is a regular rate and rhythm without any murmurs gallops or rubs. ABDOMEN: Soft and nontender with normal bowel sounds. Patient SKIN: Skin is clear with no lesions or rashes and otherwise unremarkable. NEUROLOGIC: Patient is alert and oriented x3. Cranial nerves II through XII are grossly intact. Motor and sensory are also intact. Normal speech, volume and content. Symmetrical smile. MUSCULOSKELETAL: Normal extremities with adequate strength and full range of motion. No lower extremity swelling or edema. No calf tenderness. LYMPHATICS: No significant lymphadenopathy is noted PSYCHIATRIC: Normal psychiatric evaluation. Limitations: no limitations Course Vital Signs 06/28/24 06/28/24 12:05 14:56 Temperature 98.4 F Pulse Rate 66 61 Respiratory 16 16 Rate Blood Pressure 97/55 112/67 O2 Sat by Pulse 100 98 Oximetry Medical Decision Making - Medical Decision Making EKG is interpreted by myself. EKG shows a sinus rhythm at 60 bpm CO was 182 QRS is 113 QT interval is 442 QTc is 443. Patient's EKG shows no ST segment elevation or depression. Was pt. sent in by a medical professional or institution (, RADHA, CHEESE PROCESSOR, urgent care, hospital, or jail...) When possible be specific @ -No Did you speak to anyone other than the patient for history (EMS, parent, family, police, friend...)? What history was obtained from this source @ -No Did you review nursing and triage notes (agree or disagree)? Why? @ -I reviewed and agree with nursing and triage notes Were old charts reviewed (outside hosp., previous admission, EMS record, old EKG, old radiological studies, urgent care reports/EKG's, jail records)? Report findings @ -No Differential Diagnosis? @ -Differential Weakness: Hypoglycemia, shock, sepsis, hyponatremia, anemia, infection, [place], ETOH, adverse medicine reaction, overdose, stroke, this is not meant to be an all-inclusive list. EKG interpreted by me (3pts min.). @ -As above X-rays interpreted by me (1pt min.). @ -Chest x-ray shows no acute normality. CT interpreted by me (1pt min.). @ -None done U/S interpreted by me (1pt. min.). @ -None done What testing was considered but not performed or refused? (CT, X-rays, U/S, labs)? Why? @ -None What meds were considered but not given or refused? Why? @ -None Did you discuss the management of the patient with other professionals (professionals i.e. RADHA Moya, CHEESE PROCESSOR, lab, RT, psych nurse, social studies department chair, stamping operator, teacher, operations officer, shoe caser)? Give summary @ -I spoke with Dr. Broderick he agreed to admit the patient admit the patient right admitted hours Was smoking cessation discussed for >3mins.? @ -No Was critical care preformed (if so, how long)? @ -No Were there social determinants of health that impacted care today? How? (Homelessness, low income, unemployed, alcoholism, drug addiction, transportation, low edu. Level, literacy, decrease access to med. care, prison, rehab)? @ -No Was there de-escalation of care discussed even if they declined (Discuss DNR or withdrawal of care, Hospice)? DNR status @ -No What co-morbidities impacted this encounter? (DM, HTN, Smoking, COPD, CAD, Cancer, CVA, ARF, Chemo, Hep., AIDS, mental health diagnosis, sleep apnea, morbid obesity)? @ -None Was patient admitted / discharged? Hospital course, mention meds given and route, prescriptions, significant lab abnormalities, going to OR and other pertinent info. @ -Patient's hemoglobin is 7.4 which is a significant drop from last admission at 9.7 patient will be admitted to Dr. Broderick I will consult Dr. Bonilla. Undiagnosed new problem with uncertain prognosis? @ -No Drug Therapy requiring intensive monitoring for toxicity (Heparin, Nitro, Insulin, Cardizem)? @ -No Were any procedures done? @ -No Diagnosis/symptom? @ -Anemia Acute, or Chronic, or Acute on Chronic? @ -Acute Uncomplicated (without systemic symptoms) or Complicated (systemic symptoms)? @ -Complicated Side effects of treatment? @ -No Exacerbation, Progression, or Severe Exacerbation? @ -No Poses a threat to life or bodily function? How? (Chest pain, [place], [place], pneumonia, PE, COPD, DKA, ARF, appy, cholecystitis, CVA, Diverticulitis, Homicidal, Suicidal, threat to staff... and all critical care pts) @ -Yes this could lead to hypoxia and endorgan dysfunction Diagnosis/symptom? @ -Generalized Acute, or Chronic, or Acute on Chronic? @ -acute Uncomplicated (without systemic symptoms) or Complicated (systemic symptoms)? @ -complicated Side effects of treatment? @ -None Exacerbation, Progression, or Severe Exacerbation] @ -No Poses a threat to life or bodily function? @ -No - Lab Data Result diagrams: 06/28/24 13:03 06/28/24 13:03 Lab Results 06/28/24 06/28/24 06/28/24 Range/Units 13:03 13:03 13:03 WBC 6.8 (3.8-10.6) k/uL RBC 2.53 L (4.30-5.90) m/uL Hgb 7.4 L D (13.0-17.5) gm/dL Hct 21.6 L (39.0-53.0) % MCV 85.5 (80.0-100.0) fL MCH 29.3 (25.0-35.0) pg MCHC 34.3 (31.0-37.0) g/dL RDW 16.0 H (11.5-15.5) % Plt Count 121 L (150-450) k/uL MPV 7.9 Neutrophils % 83 % Lymphocytes % 9 % Monocytes % 5 % Eosinophils % 1 % Basophils % 0 % Neutrophils # 5.6 (1.3-7.7) k/uL Lymphocytes # 0.6 L (1.0-4.8) k/uL Monocytes # 0.4 (0-1.0) k/uL Eosinophils # 0.1 (0-0.7) k/uL Basophils # 0.0 (0-0.2) k/uL PT 11.1 (10.0-12.5) sec INR 1.0 (<1.2) APTT 30.3 H (22.0-30.0) sec Sodium 133 L (137-145) mmol/L Potassium 3.5 (3.5-5.1) mmol/L Chloride 95 L (98-107) mmol/L Carbon Dioxide 27 (22-30) mmol/L Anion Gap 11 mmol/L BUN 47 H (9-20) mg/dL Creatinine 4.94 H (0.66-1.25) mg/dL Est GFR (CKD-EPI)AfAm 14 (>60 ml/min/1.73 sqM) Est GFR (CKD-EPI)NonAf 12 (>60 ml/min/1.73 sqM) Glucose 307 H (74-99) mg/dL Plasma Lactic Acid Preet (0.7-2.0) mmol/L Calcium 7.5 L (8.4-10.2) mg/dL Magnesium 1.8 (1.6-2.3) mg/dL Total Bilirubin 0.4 (0.2-1.3) mg/dL AST 28 (17-59) U/L ALT 25 (4-49) U/L Alkaline Phosphatase 105 (38-126) U/L Troponin I (0.000-0.034) ng/mL Total Protein 5.9 L (6.3-8.2) g/dL Albumin 3.6 (3.5-5.0) g/dL Urine Color Urine Appearance (Clear) Urine pH (5.0-8.0) Ur Specific [place] (1.001-1.035) Urine Protein (Negative) Urine Glucose (UA) (Negative) Urine Ketones (Negative) Urine Blood (Negative) Urine Nitrite (Negative) Urine Bilirubin (Negative) Urine Urobilinogen (<2.0) mg/dL Ur Leukocyte Esterase (Negative) Urine RBC (0-5) /hpf Urine WBC (0-5) /hpf Ur Squamous Epith Cells (0-4) /hpf Amorphous Sediment (None) /hpf Hyaline Casts (0-2) /lpf Urine Mucus (None) /hpf Influenza Type A (PCR) (Not Detectd) Influenza Type B (PCR) (Not Detectd) RSV (PCR) (Not Detectd) SARS-CoV-2 (PCR) (Not Detectd) 06/28/24 06/28/24 06/28/24 Range/Units 13:03 13:03 13:03 WBC (3.8-10.6) k/uL RBC (4.30-5.90) m/uL Hgb (13.0-17.5) gm/dL Hct (39.0-53.0) % MCV (80.0-100.0) fL MCH (25.0-35.0) pg MCHC (31.0-37.0) g/dL RDW (11.5-15.5) % Plt Count (150-450) k/uL MPV Neutrophils % % Lymphocytes % % Monocytes % % Eosinophils % % Basophils % % Neutrophils # (1.3-7.7) k/uL Lymphocytes # (1.0-4.8) k/uL Monocytes # (0-1.0) k/uL Eosinophils # (0-0.7) k/uL Basophils # (0-0.2) k/uL PT (10.0-12.5) sec INR (<1.2) APTT (22.0-30.0) sec Sodium (137-145) mmol/L Potassium (3.5-5.1) mmol/L Chloride (98-107) mmol/L Carbon Dioxide (22-30) mmol/L Anion Gap mmol/L BUN (9-20) mg/dL Creatinine (0.66-1.25) mg/dL Est GFR (CKD-EPI)AfAm (>60 ml/min/1.73 sqM) Est GFR (CKD-EPI)NonAf (>60 ml/min/1.73 sqM) Glucose (74-99) mg/dL Plasma Lactic Acid Preet 2.3 H* (0.7-2.0) mmol/L Calcium (8.4-10.2) mg/dL Magnesium (1.6-2.3) mg/dL Total Bilirubin (0.2-1.3) mg/dL AST (17-59) U/L ALT (4-49) U/L Alkaline Phosphatase (38-126) U/L Troponin I 0.016 (0.000-0.034) ng/mL Total Protein (6.3-8.2) g/dL Albumin (3.5-5.0) g/dL Urine Color Urine Appearance (Clear) Urine pH (5.0-8.0) Ur Specific [place] (1.001-1.035) Urine Protein (Negative) Urine Glucose (UA) (Negative) Urine Ketones (Negative) Urine Blood (Negative) Urine Nitrite (Negative) Urine Bilirubin (Negative) Urine Urobilinogen (<2.0) mg/dL Ur Leukocyte Esterase (Negative) Urine RBC (0-5) /hpf Urine WBC (0-5) /hpf Ur Squamous Epith Cells (0-4) /hpf Amorphous Sediment (None) /hpf Hyaline Casts (0-2) /lpf Urine Mucus (None) /hpf Influenza Type A (PCR) Not Detected (Not Detectd) Influenza Type B (PCR) Not Detected (Not Detectd) RSV (PCR) Not Detected (Not Detectd) SARS-CoV-2 (PCR) Not Detected (Not Detectd) 06/28/24 Range/Units 13:18 WBC (3.8-10.6) k/uL RBC (4.30-5.90) m/uL Hgb (13.0-17.5) gm/dL Hct (39.0-53.0) % MCV (80.0-100.0) fL MCH (25.0-35.0) pg MCHC (31.0-37.0) g/dL RDW (11.5-15.5) % Plt Count (150-450) k/uL MPV Neutrophils % % Lymphocytes % % Monocytes % % Eosinophils % % Basophils % % Neutrophils # (1.3-7.7) k/uL Lymphocytes # (1.0-4.8) k/uL Monocytes # (0-1.0) k/uL Eosinophils # (0-0.7) k/uL Basophils # (0-0.2) k/uL PT (10.0-12.5) sec INR (<1.2) APTT (22.0-30.0) sec Sodium (137-145) mmol/L Potassium (3.5-5.1) mmol/L Chloride (98-107) mmol/L Carbon Dioxide (22-30) mmol/L Anion Gap mmol/L BUN (9-20) mg/dL Creatinine (0.66-1.25) mg/dL Est GFR (CKD-EPI)AfAm (>60 ml/min/1.73 sqM) Est GFR (CKD-EPI)NonAf (>60 ml/min/1.73 sqM) Glucose (74-99) mg/dL Plasma Lactic Acid Preet (0.7-2.0) mmol/L Calcium (8.4-10.2) mg/dL Magnesium (1.6-2.3) mg/dL Total Bilirubin (0.2-1.3) mg/dL AST (17-59) U/L ALT (4-49) U/L Alkaline Phosphatase (38-126) U/L Troponin I (0.000-0.034) ng/mL Total Protein (6.3-8.2) g/dL Albumin (3.5-5.0) g/dL Urine Color Yellow Urine Appearance Cloudy (Clear) Urine pH 5.0 (5.0-8.0) Ur Specific [place] 1.018 (1.001-1.035) Urine Protein 2+ H (Negative) Urine Glucose (UA) 1+ H (Negative) Urine Ketones Negative (Negative) Urine Blood Small H (Negative) Urine Nitrite Negative (Negative) Urine Bilirubin Negative (Negative) Urine Urobilinogen <2.0 (<2.0) mg/dL Ur Leukocyte Esterase Moderate H (Negative) Urine RBC 19 H (0-5) /hpf Urine WBC 12 H (0-5) /hpf Ur Squamous Epith Cells <1 (0-4) /hpf Amorphous Sediment Few H (None) /hpf Hyaline Casts 2 (0-2) /lpf Urine Mucus Rare H (None) /hpf Influenza Type A (PCR) (Not Detectd) Influenza Type B (PCR) (Not Detectd) RSV (PCR) (Not Detectd) SARS-CoV-2 (PCR) (Not Detectd) Disposition Clinical Impression: Anemia, Generalized weakness Disposition: ADMITTED IP TO THIS HOSP Referrals: Diana Broderick MD [Primary Care Provider] - 1-2 days Time of Disposition: 15:01
[2024-06-28 13:35] LABS: Basophils % (A) 0 %; Eosinophils # (A) 0.1 k/uL (0-0.7); Eosinophils % (A) 1 %; HCT 21.6 % (39.0-53.0); Lymphocytes # (A) 0.6 k/uL (1.0-4.8); Lymphocytes % (A) 9 %; MCH 29.3 pg (25.0-35.0); MCHC 34.3 g/dL (31.0-37.0); MCV 85.5 fL (80.0-100.0); Mean Platelet Volume 7.9; Monocytes # (A) 0.4 k/uL (0-1.0); Monocytes % (A) 5 %; Neutrophils # (A) 5.6 k/uL (1.3-7.7); Neutrophils % (A) 83 %; Platelet Count 121 k/uL (150-450); RBC 2.53 m/uL (4.30-5.90); WBC 6.8 k/uL (3.8-10.6)
--- NOTE | 2024-06-28 13:41 | XR ---
EXAMINATION TYPE: XR chest 2V DATE OF EXAM: 06/28/2024 1:35 PM COMPARISON: 06/19/2024 CLINICAL INDICATION: Male, 58 years old with history of Weakness, , TECHNIQUE: AP and lateral views FINDINGS: Heart upper limits of normal in size. Mild interstitial prominence and peribronchial cuffing. No cons olidation or pleural effusion. IMPRESSION: Borderline heart size. Interstitial prominence could reflect bronchitis or chronic asthma. Otherwise, no acute process seen. [facility], Workstation: [id number], 06/28/2024 1:39 PM
[2024-06-28 13:54] LABS: ALT 25 U/L (4-49); AST 28 U/L (17-59); African American GFR (CKD) 14 (>60 ml/min/1.73 sqM); Albumin 3.6 g/dL (3.5-5.0); Alkaline Phosphatase 105 U/L (38-126); Anion Gap 11 mmol/L; Blood Urea Nitrogen 47 mg/dL (9-20); Calcium 7.5 mg/dL (8.4-10.2); Carbon Dioxide 27 mmol/L (22-30); Chloride 95 mmol/L (98-107); Glucose 307 mg/dL (74-99); Magnesium 1.8 mg/dL (1.6-2.3); Non-African American GFR(CKD) 12 (>60 ml/min/1.73 sqM); Potassium 3.5 mmol/L (3.5-5.1); Sodium 133 mmol/L (137-145); Total Bilirubin 0.4 mg/dL (0.2-1.3); Total Protein 5.9 g/dL (6.3-8.2)
[2024-06-28 13:56] LABS: Amorphous Sediment,Urine Few /hpf; Appearance,Urine Cloudy (Clear); Bilirubin,Urine Negative (Negative); Blood,Urine Small (Negative); Color,Urine Yellow; Glucose,Urine (UA) 1+ (Negative); Hyaline Casts,Urine 2 /lpf (0-2); Ketones,Urine Negative (Negative); Leukocyte Esterase,Urine Moderate (Negative); Mucus,Urine Rare /hpf; Nitrite,Urine Negative (Negative); Protein,Urine 2+ (Negative); RBC,Urine 19 /hpf (0-5); Specific Gravity,Urine 1.018 (1.001-1.035); Squamous Epithelial Cell,Urine <1 /hpf (0-4); Urobilinogen,Urine <2.0 mg/dL (<2.0); WBC,Urine 12 /hpf (0-5)
[2024-06-28 13:58] LABS: HGB 7.4 gm/dL (13.0-17.5)
[2024-06-28 14:11] LABS: Partial Thromboplastin Time 30.3 sec (22.0-30.0); Prothrombin Time 11.1 sec (10.0-12.5)
[2024-06-28] MEDS: ONDANSETRON 4 MG/2 ML VIAL IVP STA (14:47)
[2024-06-28 15:52] LABS: Basophils % (A) 0 %; Eosinophils # (A) 0.1 k/uL (0-0.7); Eosinophils % (A) 2 %; HCT 21.6 % (39.0-53.0); HGB 7.4 gm/dL (13.0-17.5); Lymphocytes % (A) 14 %; MCH 29.7 pg (25.0-35.0); MCHC 34.3 g/dL (31.0-37.0); MCV 86.5 fL (80.0-100.0); Mean Platelet Volume 6.8; Monocytes # (A) 0.4 k/uL (0-1.0); Monocytes % (A) 6 %; Neutrophils # (A) 5.3 k/uL (1.3-7.7); Neutrophils % (A) 76 %; Platelet Count 115 k/uL (150-450); RBC 2.49 m/uL (4.30-5.90); RDW 15.9 % (11.5-15.5)
[2024-06-28] MEDS: SODIUM CHLORIDE 0.9% 1,000 ML IV ONE (16:47)
[2024-06-28] MEDS ORDERED: NITROGLYCERIN SL TABS 0.4 MG TAB SUBLINGUAL PRN (18:13)
[2024-06-28] MEDS: TAMSULOSIN 0.4 MG CAP.ER.24H PO SCH (20:33)
[2024-06-28] MEDS: ATORVASTATIN 80 MG TAB PO SCH (20:33)
[2024-06-28] MEDS: PANTOPRAZOLE 40 MG/10 ML VIAL IVP SCH (20:33)
[2024-06-28] MEDS: RANOLAZINE 500 MG TAB.ER.12H PO SCH (20:33)
[2024-06-28 20:49] LABS: Glucose,Whole Blood 301 mg/dL (70-110)
[2024-06-28] MEDS ORDERED: DEXTROSE 50% SYRINGE 50 ML IVP PRN ×2 (21:33)
[2024-06-28] MEDS: hydrALAZINE HCL 50 MG TAB PO SCH (21:43)
[2024-06-28] MEDS: INSULIN ASPART (NovoLOG) 100 UNIT/ML VIAL SQ SCH (21:43)
[2024-06-28] MEDS: CALCIUM CARBONATE 500 MG CHEWABLE PO SCH (21:43)
[2024-06-28] MEDS: ACETAMINOPHEN TAB 325 MG TAB PO PRN (22:50)
[2024-06-29] MEDS: ONDANSETRON 4 MG/2 ML VIAL IVP PRN (03:56)
[2024-06-29 06:31] LABS: Glucose,Whole Blood 132 mg/dL (70-110)
[2024-06-29] MEDS: CITALOPRAM HYDROBROMIDE 20 MG TAB PO SCH (08:22)
[2024-06-29] MEDS: LORATADINE 10 MG TAB PO SCH (08:23)
[2024-06-29] MEDS: LOSARTAN 25 MG TAB PO SCH (08:23)
[2024-06-29] MEDS: FOLIC ACID-VIT B COMPLEX-VIT C 1 CAP PO SCH (08:23)
[2024-06-29] MEDS: METOPROLOL SUCCINATE (ER) 50 MG TAB.ER.24H PO SCH (08:23)
[2024-06-29] MEDS: FUROSEMIDE 80 MG TAB PO SCH (08:23)
[2024-06-29] MEDS: allopurinoL 100 MG TAB PO SCH (08:23)
[2024-06-29] MEDS: ISOSORBIDE MONONITRATE ER 30 MG TAB.ER.24H PO SCH (08:24)
[2024-06-29 08:34] LABS: HCT 20.5 % (39.6-50.0); MCH 28.4 pg (27.0-32.0); MCHC 32.7 g/dL (32.0-37.0); MCV 86.9 FL (80.0-97.0); Mean Platelet Volume 9.3 FL (9.5-12.2); NRBC Per 100 WBC 0 X 10*3/uL (0.00-0.01); Platelet Count 110 X 10*3/uL (140-440); RBC 2.36 X 10*6/uL (4.40-5.60); RDW 15.5 % (11.5-14.5); WBC 7.37 X 10*3/uL (4.50-10.00)
[2024-06-29 08:59] LABS: ALT 25 U/L (10-49); AST 29 U/L (14-35); Albumin 3.6 g/dL (3.8-4.9); Albumin/Globulin Ratio 1.64 Ratio (1.60-3.17); Alkaline Phosphatase 99 U/L (41-126); BUN/Creat Ratio 8.05 Ratio (12.00-20.00); Blood Urea Nitrogen 45.1 mg/dL (9.0-27.0); Calcium 7.7 mg/dL (8.7-10.3); Carbon Dioxide 25.6 mmol/L (21.6-31.8); Chloride 94 mmol/L (96-109); Globulin 2.2 g/dL (1.6-3.3); Glucose 118 mg/dL (70-110); Potassium 3.4 mmol/L (3.5-5.5); Sodium 135 mmol/L (135-145); Total Bilirubin 0.4 mg/dL (0.3-1.2); Total Protein 5.8 g/dL (6.2-8.2)
[2024-06-29] MEDS ORDERED: CLOPIDOGREL 75 MG TAB PO SCH (09:00)
[2024-06-29] MEDS ORDERED: NON FORMULARY DRUG (Citalopram Hydrobromide [Celexa] 40 MG Tablet) PO SCH (09:00)
[2024-06-29] MEDS ORDERED: ASPIRIN 81 MG PO SCH (09:00)
[2024-06-29 10:33] LABS: Basophils # (A) 0.03 X 10*3/uL (0.00-0.10); Basophils % (A) 0.4 %; Eosinophils # (A) 0.13 X 10*3/uL (0.04-0.35); Eosinophils % (A) 1.8 %; HGB 6.7 g/dL (13.0-17.0); Lymphocytes # (A) 1.28 X 10*3/uL (0.90-5.00); Lymphocytes % (A) 17.4 %; Monocytes # (A) 0.61 X 10*3/uL (0.20-1.00); Monocytes % (A) 8.3 %; Neutrophils # (A) 5.29 X 10*3/uL (1.80-7.70); Neutrophils % (A) 71.7 %
[2024-06-29 12:15] LABS: Glucose,Whole Blood 148 mg/dL (70-110)
--- NOTE | 2024-06-29 12:37 | P.NPCON ---
History of Present Illness - Reason for Consult end stage renal disease - History of Present Illness Patient is a 58-year-old male with end-stage renal disease on hemodialysis on Thursday schedule. He is admitted to the hospital with complaints of nausea vomiting and feeling poorly. Patient also noticed black- colored stools yesterday. He was recently discharged from the hospital on 06/26/2024. Patient was treated for urinary tract infection. He has an indwelling Garcia catheter and was evaluated by urology. It was decided to continue with the Garcia catheter for now. No complaints of fever chills chest pain or shortness of breath. Patient missed his hemodialysis treatment yesterday. Hemoglobin was 6.7. Past Medical History Past Medical History: Coronary Artery Disease (CAD), Chest Pain / Angina, CVA/TIA, Diabetes Mellitus, Eye Disorder, GERD/Reflux, Hearing Disorder / Deafness, Hyperlipidemia, Hypertension, Myocardial Infarction (NM), Prostate Disorder, Renal Disease, Rheumatoid Arthritis (RA) Additional Past Medical History / Comment(s): [place] X2 in 2014 and 02/2023., 02 3L/[place]., Hx stroke Apr 2017. , hx tia's ., left side weakness., Migranes., Diabetic neuropathy arms and legs, tremors off and on, circulation problems, uses quad cane and wheelchair., Kidney disease with dialysis TUTHSA. Hx Pancreatitis., Legally blind, some trouble hearing. Enlarged prostate, trouble urinating. , hx of recent uti's., anemia., constipation Last Myocardial Infarction Date:: 02/2023 History of Any Multi-Drug Resistant Organisms: None Reported Past Surgical History: Cholecystectomy, Heart Catheterization, Heart Catheterization With Stent, Heart Catheterization With Stent, Hernia Repair, Prostate Surgery Additional Past Surgical History / Comment(s): Dialysis Port Placed - 03/14/23, HIATAL HERNIA REPAIR - 01/23/21., states hx 5 heart caths with 5 stents. Past Anesthesia/Blood Transfusion Reactions: No Reported Reaction Additional Past Anesthesia/Blood Transfusion Reaction / Comment(s): . Date of Last Stent Placement:: 05/07/23 Past Psychological History: Anxiety, Depression Additional Psychological History / Comment(s): He uses a quad cane or walker to ambulate. He is legally blind. He reads minimally with magnifying glass and signs his name only now. Smoking Status: Never smoker Past Alcohol Use History: None Reported Past Drug Use History: None Reported - Past Family History Mother Family Medical History: CVA/TIA, Diabetes Mellitus, Hypertension Additional Family Medical History / Comment(s): Parkinson's. Father Family Medical History: Myocardial Infarction (NM) Additional Family Medical History / Comment(s): Father of a [place] in his 50s. Medications and Allergies Home Medications Medication Instructions Recorded Confirmed Type Pantoprazole [Protonix] 40 mg PO BID 11/05/17 06/28/24 History Tamsulosin [Flomax] 0.4 mg PO BID 11/05/17 06/28/24 History Citalopram Hydrobromide [CeleXA] 20 mg PO DAILY 12/12/18 06/28/24 History allopurinoL [Zyloprim] 100 mg PO DAILY 04/05/19 06/28/24 History Atorvastatin [Lipitor] 80 mg PO HS 12/30/19 06/28/24 History Citalopram Hydrobromide [CeleXA] 40 mg PO DAILY 06/29/20 06/28/24 History Folic Acid/Vit B Complex and C 0.8 mg PO DAILY 05/05/23 06/28/24 History [Nephro-Cirilo Tablet] Losartan [Cozaar] 25 mg PO DAILY 09/19/23 06/28/24 History Metoprolol Succinate (ER) [Toprol 50 mg PO DAILY 09/19/23 06/28/24 History XL] Ranolazine [Ranexa] 500 mg PO Q12HR #60 tab 09/21/23 06/28/24 Rx Furosemide [Lasix] 80 mg PO DAILY 10/16/23 06/28/24 History Nitroglycerin Sl Tabs [Nitrostat] 0.4 mg SL Q5M PRN 10/16/23 06/28/24 History hydrALAZINE HCL [Apresoline] 50 mg PO TID 04/12/24 06/28/24 History Calcium Carbonate [Tums] 500 mg PO TID 06/16/24 06/28/24 History Clopidogrel [Plavix] 75 mg PO DAILY 06/16/24 06/28/24 History NIFEdipine XL [Procardia XL] 60 mg PO DAILY 06/16/24 06/28/24 History Aspirin 81 mg PO DAILY 06/20/24 06/28/24 History Loratadine [Claritin] 10 mg PO DAILY #30 tab 06/24/24 06/28/24 Rx Midodrine [ProAmatine] 5 mg PO DAILY PRN #30 tab 06/24/24 06/28/24 Rx Oxymetazoline 0.05% Nasl [place] 2 spray NASAL BID PRN #1 dispenser 06/24/24 06/28/24 Rx [Afrin 0.05% Nasal [place]] Isosorbide Mononitrate ER [Imdur] 15 mg PO DAILY 06/28/24 06/28/24 History Allergies Allergy/AdvReac Type Severity Reaction Status Date / Time hydromorphone AdvReac Confusion Verified 06/28/24 18:47 Iodinated Contrast Media AdvReac Nausea & Verified 06/28/24 18:47 [Iodinated Contrast- Oral Vomiting and IV Dye] sucralfate AdvReac Nausea & Verified 06/28/24 18:47 Vomiting Physical Exam Vitals: Vital Signs Temp Pulse Pulse Pulse Resp BP BP 06/29/24 08:00 16 06/29/24 07:00 97.4 F L 60 16 06/29/24 02:00 98.2 F 66 17 134/65 06/28/24 20:00 98.4 F 67 17 154/77 06/28/24 18:30 60 16 128/54 06/28/24 17:30 58 L 19 122/61 06/28/24 17:00 58 L 14 126/62 06/28/24 15:12 60 18 129/67 06/28/24 14:56 61 16 112/67 BP Pulse Ox 06/29/24 08:00 06/29/24 07:00 126/66 100 06/29/24 02:00 06/28/24 20:00 100 06/28/24 18:30 97 06/28/24 17:30 97 06/28/24 17:00 98 06/28/24 15:12 98 06/28/24 14:56 98 Intake and Output 06/28/24 06/29/24 06/29/24 22:59 06:59 14:59 Output Total 600 200 Balance -600 -200 Output: Urine 600 200 Other: Voiding Method Indwelling Catheter Indwelling Catheter Indwelling Catheter Weight 79.379 kg Patient is awake, comfortable, no acute distress. Examination of the heart S1 and S2 Examination of the lungs bilateral breath sounds are heard Abdomen is soft nontender Examination of lower extremities shows no evidence of edema MINK RANCHER exam grossly intact Results - Lab Results Most recent lab results Calcium 7.7 mg/dL (8.7-10.3) L 06/29/24 04:22 Magnesium 1.8 mg/dL (1.6-2.3) 06/28/24 13:03 06/29/24 04:22 06/29/24 04:22 Assessment and Plan Assessment: 1. End-stage renal disease on hemodialysis on Thursday schedule. Patient will be dialyzed for a short treatment today and repeat in a.m. 2. Anemia from GI bleed, GI on consult 3. CKD mineral bone disorder 4. Urine retention with indwelling Garcia catheter 5. Coronary artery disease with coronary artery stents Plan: Hemodialysis today and repeat in a.m. Maintain patient on Aranesp Continue with oral Lasix Check phosphorus Continue with Tums for hypocalcemia and can take with meals as well as a phosphate binder if phosphorus is elevated. Thank you for the consultation. We will continue to follow the patient with you during his hospitalization
[2024-06-29 13:51] VITALS: BMI 25.8
--- NOTE | 2024-06-29 14:54 | P.HPIM ---
History of Present Illness H&P Date: 06/28/24 Chief Complaint: Dysphagia/Worsening anemia HISTORY OF PRESENT ILLNESS: This is a 58-year-old male with a previous medical history significant for coronary artery disease status post myocardial infarction back in 2014 and in 2022 status post PCI of the LAD as well as LCx, last stent placed was in 2022, hypertension and hypertensive cardiovascular disease, mixed hyperlipidemia, diabetes mellitus type 2, legally blind, history of ischemic cerebrovascular accident in the past with left-sided weakness, history of recurrent TIA, history of enlarged prostate, history of anxiety and depressive disorder, history of end-stage renal disease on hemodialysis Thursday and Thursday via fistula in the left upper extremity, patient was recently hospitalized at [facility] on June 16, 2024 after he was admitted for chest pain, at that time he underwent left heart catheterization bilaterally that showed normal LV diastolic and pressure, it did show a normal left main artery, LAD was normal with minimal stenosis in the midportion to the distal portion about 60%, the left circumflex artery was patent where the stents were placed, minimal irregularities, the RCA was totally occluded in the proximal portion, there was collateral from the LAD to distal RCA, patient then was discharged from the hospital and he came back to the hospital because of urinary retention, ended up having Garcia catheter placed and he was seen in consultation by urology who recommended for the patient to have a Garcia catheter and follow-up with Dr. Lambert as an outpatient after he was started on Flomax 0.4 mg once every day, he also was found to have a significant dysphagia at that time, he had esophagram that showed evidence of significant stricture at the base of the esophagus with irregularities he was seen at that time by Dr. Cabello, it was recommended for the patient to have an EGD as an outpatient, patient was not able to eat or drink much, he was complaining of significant pain in the throat, he was not able to eat much, his hemoglobin did drop to 7.4 from 9.8, therefore the patient was admitted to the hospital for evaluation by gastroenterology, we will monitor the patient hemoglobin very closely, start the patient on Protonix 40 mg IV push every 12 hours, patient also will be admitted to the hospital he will be seen in consultation by gastroenterology for possible EGD tomorrow morning, he will be also seen in consultation by nephrology for hemodialysis ordered. REVIEW OF SYSTEMS: Constitutional: No documented fever, no chills, no night sweats. Significant weight change. Generalized weakness, fatigue or lethargy. No daytime sleepiness. EENT: No headache. No blurred vision or double vision, positive for loss of vision. No loss of Hearing, no ringing in the ears, no dizziness. No nasal drainage or congestion. No epistaxis. No sore throat. Lungs: Positive for shortness of breath, no cough, no sputum production. No wheezing. Reports dyspnea with activity. Cardiovascular: Positive for chest pain, no lower extremity edema. No palpitations. No paroxysmal nocturnal dyspnea. No orthopnea. No lightheadedness or dizziness. No syncopal episodes. Abdominal: Reports abdominal pain. Positive for nausea, vomiting. No diarrhea. No constipation. No bloody positive for tarry stools reports loss of appetite. Genitourinary: No dysuria, increased frequency, urgency. No urinary retention. Musculoskeletal: No myalgias. No muscle weakness, no gait dysfunction, no frequent falls. No back pain. No neck pain. Integumentary: No wounds, no lesions. No rash or pruritus. No unusual bruising. No change in hair or nails. Neurologic: No aphasia. No facial droop. No change in mentation. No head injury. No headache. No paralysis. Positive for paresthesia due to diabetic polyneuropathy Psychiatric: Positive for depression. No anxiety. No mood swings. Endocrine: Positive for abnormal blood sugars. Significant weight change. PAST MEDICAL HISTORY: End-stage renal disease on hemodialysis Thursday and Thursday. Hypertension and hypertensive cardiovascular disease. Mixed hyperlipidemia. Coronary artery disease status post PCI of the LAD and LCx. Diabetes mellitus type 2. CVA with left-sided weakness Recurrent TIA. Enlarged prostate with urinary retention. Anemia Anxiety and depressive disorder. Osteoarthritis. PAST SURGICAL HISTORY: Cholecystectomy. Left heart catheterization last 1 was in June 17, 2024 Left heart catheterization with PCI in 2022. Left heart catheterization 2014. Hemodialysis port placed 03/14/2023 AV fistula of the left upper extremity Hiatal hernia repair. 01/23/2021 Prostate surgery. SOCIAL HISTORY: Patient is a lifelong non-smoker, he denies any alcohol ingestion, he denies any drug use or abuse, he recently lost his after she from metastatic uterine cancer and hospice program. He is legally blind, uses a quad cane as well as a wheelchair, he does not drive at this point in time. FAMILY HISTORY: Father in his 50s from myocardial infarction had history of CVA diabetes hypertension, mother at the age of 78 from Parkinson and had hypertension diabetes and history of CVA, patient had 3 brothers 1 at the age of 45 from MD the other 2 from suicide, 2 sisters one 70-year-old and the other one 60-year-old no major medical problem patient has no kids. PHYSICAL EXAMINATION: General: 58-year-old male laying down in bed in no apparent distress. HEENT: Head is atraumatic, normocephalic, pupils were equal round reactive to light and recommendation, extraocular muscle movement were intact, sclera nonicteric, conjunctivae were pale, mucous membranes of the mouth are somewhat dry. Neck: Supple, no JVP, normal carotid upstroke bilaterally, no lymphadenopathy. Chest: Decreased breath sounds at the bases, few rhonchi, no expiratory wheezes, no chest wall tenderness, no intercostal retractions. Heart: First heart sound is normal, second heart sounds normal systolic ejection murmur 2/6 located in the left sternal border. Abdomen: Soft, mild tenderness in the epigastric area., nondistended, positive bowel sounds. Extremities: There is no edema no calf tenderness DP +2 bilaterally. Neurologic examination: Patient is awake alert and oriented x3, cranial nerves II-12 appear grossly intact, left-sided weakness that has been chronic. ASSESSMENT AND PLAN: 1. Severe dysphagia with worsening anemia. patient will be admitted to the hospital he will be started on Protonix 40 mg IV push every 12 hours, he will be seen in consultation by GI, he will need to have a EGD for evaluation of stricture that was seen on recent esophagram with irregularities rule out esophageal cancer, monitor the patient very closely, monitor CBC every 6 hours for the next 24 hours, transfuse for hemoglobin less than 7. 2. End-stage renal disease on hemodialysis Thursday and Thursday. Consult nephrology for hemodialysis ordered. 3. Generalized weakness likely related to poor oral intake as well as worsening anemia. Continue treatment as in previous paragraphs. 4. Coronary artery disease status post recent heart catheterization 06/17/2024 that showed stable disease with patent stented arteries of the LAD and LCx. Continue patient on metoprolol ER 50 mg orally once every day, isosorbide mononitrate 50 mg orally once every day, hydralazine 50 mg orally 3 times every day, atorvastatin 80 mg once every day, ranolazine 500 mg orally twice every day, hold aspirin and Plavix for now. 5. Hypertension and hypertensive cardiovascular disease. Continue patient on metoprolol ER 50 mg once every day, hydralazine 50 mg orally 3 times every day, losartan 25 mg once every day, hold off nifedipine for now. 6. Mixed hyperlipidemia. Continue patient on atorvastatin 80 mg once every day, monitor the patient lipid panel, keep LDL 55 7. PAD. Stable at this time. Continue atorvastatin for secondary prevention. 8. Diabetes mellitus type 2 currently not taking any medication at this time. 9. History of CVA in the past with left-sided weakness and recurrent TIA. Continue patient on atorvastatin 80 mg once every day, hold aspirin and Plavix due to possible GI bleed. 10. Enlarged prostate with urinary retention. Continue Flomax 0.4 mg once every day, continue Garcia catheter in place, void trial to be done as an outpatient 11. History of gout. Continue patient on allopurinol 100 mg once every day. 12. History of anxiety and depressive disorder. Continue citalopram 60 mg oral ly once every day. 13. Observation. 14. Patient is full code. Past Medical History Past Medical History: Coronary Artery Disease (CAD), Chest Pain / Angina, CVA/TIA, Diabetes Mellitus, Eye Disorder, GERD/Reflux, Hearing Disorder / Deafness, Hyperlipidemia, Hypertension, Myocardial Infarction (MD), Prostate Disorder, Renal Disease, Rheumatoid Arthritis (RA) Additional Past Medical History / Comment(s): MD X2 in 2014 and 02/2023., 02 3L/NC., Hx stroke Apr 2017. , hx tia's ., left side weakness., Migranes., Diabetic neuropathy arms and legs, tremors off and on, circulation problems, uses quad cane and wheelchair., Kidney disease with dialysis [facility]. Hx Pancreatitis., Legally blind, some trouble hearing. Enlarged prostate, trouble urinating. , hx of recent uti's., anemia., constipation Last Myocardial Infarction Date:: 02/2023 History of Any Multi-Drug Resistant Organisms: None Reported Past Surgical History: Cholecystectomy, Heart Catheterization, Heart Catheterization With Stent, Heart Catheterization With Stent, Hernia Repair, Prostate Surgery Additional Past Surgical History / Comment(s): Dialysis Port Placed - 03/14/23, HIATAL HERNIA REPAIR - 01/23/21., states hx 5 heart caths with 5 stents. Past Anesthesia/Blood Transfusion Reactions: No Reported Reaction Additional Past Anesthesia/Blood Transfusion Reaction / Comment(s): . Date of Last Stent Placement:: 05/07/23 Past Psychological History: Anxiety, Depression Smoking Status: Never smoker Past Alcohol Use History: None Reported Past Drug Use History: None Reported - Past Family History Mother Family Medical History: CVA/TIA, Diabetes Mellitus, Hypertension Additional Family Medical History / Comment(s): Parkinson's. Father Family Medical History: CVA/TIA, Diabetes Mellitus, Myocardial Infarction (MD) Additional Family Medical History / Comment(s): Father of a MD in his 50s. Medications and Allergies Home Medications Medication Instructions Recorded Confirmed Type Pantoprazole [Protonix] 40 mg PO BID 11/05/17 06/28/24 History Tamsulosin [Flomax] 0.4 mg PO BID 11/05/17 06/28/24 History Citalopram Hydrobromide [CeleXA] 20 mg PO DAILY 12/12/18 06/28/24 History allopurinoL [Zyloprim] 100 mg PO DAILY 04/05/19 06/28/24 History Atorvastatin [Lipitor] 80 mg PO HS 12/30/19 06/28/24 History Citalopram Hydrobromide [CeleXA] 40 mg PO DAILY 06/29/20 06/28/24 History Folic Acid/Vit B Complex and C 0.8 mg PO DAILY 05/05/23 06/28/24 History [Nephro-Cirilo Tablet] Losartan [Cozaar] 25 mg PO DAILY 09/19/23 06/28/24 History Metoprolol Succinate (ER) [Toprol 50 mg PO DAILY 09/19/23 06/28/24 History XL] Ranolazine [Ranexa] 500 mg PO Q12HR #60 tab 09/21/23 06/28/24 Rx Furosemide [Lasix] 80 mg PO DAILY 10/16/23 06/28/24 History Nitroglycerin Sl Tabs [Nitrostat] 0.4 mg SL Q5M PRN 10/16/23 06/28/24 History hydrALAZINE HCL [Apresoline] 50 mg PO TID 04/12/24 06/28/24 History Calcium Carbonate [Tums] 500 mg PO TID 06/16/24 06/28/24 History Clopidogrel [Plavix] 75 mg PO DAILY 06/16/24 06/28/24 History NIFEdipine XL [Procardia XL] 60 mg PO DAILY 06/16/24 06/28/24 History Aspirin 81 mg PO DAILY 06/20/24 06/28/24 History Loratadine [Claritin] 10 mg PO DAILY #30 tab 06/24/24 06/28/24 Rx Midodrine [ProAmatine] 5 mg PO DAILY PRN #30 tab 06/24/24 06/28/24 Rx Oxymetazoline 0.05% Nasl [place] 2 spray NASAL BID PRN #1 dispenser 06/24/24 06/28/24 Rx [Afrin 0.05% Nasal [place]] Isosorbide Mononitrate ER [Imdur] 15 mg PO DAILY 06/28/24 06/28/24 History Allergies Allergy/AdvReac Type Severity Reaction Status Date / Time hydromorphone AdvReac Confusion Verified 06/28/24 18:47 Iodinated Contrast Media AdvReac Nausea & Verified 06/28/24 18:47 [Iodinated Contrast- Oral Vomiting and IV Dye] sucralfate AdvReac Nausea & Verified 06/28/24 18:47 Vomiting Physical Exam Vitals: Vital Signs Temp Pulse Resp BP Pulse Ox 06/28/24 17:00 58 L 14 126/62 98 06/28/24 15:12 60 18 129/67 98 06/28/24 14:56 61 16 112/67 98 06/28/24 12:05 98.4 F 66 16 97/55 100 Intake and Output 06/28/24 06/28/24 06/28/24 06:59 14:59 22:59 Other: Weight 79.379 kg Results CBC & Chem 7: 06/29/24 04:22 06/29/24 04:22 Labs: Abnormal Lab Results - Last 24 Hours (Table) 06/28/24 06/28/24 06/28/24 Range/Units 13:03 13:03 13:03 RBC 2.53 L (4.30-5.90) m/uL Hgb 7.4 L D (13.0-17.5) gm/dL Hct 21.6 L (39.0-53.0) % RDW 16.0 H (11.5-15.5) % Plt Count 121 L (150-450) k/uL Lymphocytes # 0.6 L (1.0-4.8) k/uL APTT 30.3 H (22.0-30.0) sec Sodium 133 L (137-145) mmol/L Chloride 95 L (98-107) mmol/L BUN 47 H (9-20) mg/dL Creatinine 4.94 H (0.66-1.25) mg/dL Glucose 307 H (74-99) mg/dL Plasma Lactic Acid Preet (0.7-2.0) mmol/L Calcium 7.5 L (8.4-10.2) mg/dL Total Protein 5.9 L (6.3-8.2) g/dL Urine Protein (Negative) Urine Glucose (UA) (Negative) Urine Blood (Negative) Ur Leukocyte Esterase (Negative) Urine RBC (0-5) /hpf Urine WBC (0-5) /hpf Amorphous Sediment (None) /hpf Urine Mucus (None) /hpf 06/28/24 06/28/24 06/28/24 Range/Units 13:03 13:18 15:44 RBC 2.49 L (4.30-5.90) m/uL Hgb 7.4 L (13.0-17.5) gm/dL Hct 21.6 L (39.0-53.0) % RDW 15.9 H (11.5-15.5) % Plt Count 115 L (150-450) k/uL Lymphocytes # (1.0-4.8) k/uL APTT (22.0-30.0) sec Sodium (137-145) mmol/L Chloride (98-107) mmol/L BUN (9-20) mg/dL Creatinine (0.66-1.25) mg/dL Glucose (74-99) mg/dL Plasma Lactic Acid Preet 2.3 H* (0.7-2.0) mmol/L Calcium (8.4-10.2) mg/dL Total Protein (6.3-8.2) g/dL Urine Protein 2+ H (Negative) Urine Glucose (UA) 1+ H (Negative) Urine Blood Small H (Negative) Ur Leukocyte Esterase Moderate H (Negative) Urine RBC 19 H (0-5) /hpf Urine WBC 12 H (0-5) /hpf Amorphous Sediment Few H (None) /hpf Urine Mucus Rare H (None) /hpf
--- NOTE | 2024-06-29 14:59 | P.PN ---
Subjective Progress Note Date: 06/29/24 HISTORY OF PRESENT ILLNESS: This is a 58-year-old male with a previous medical history significant for coronary artery disease status post myocardial infarction back in 2014 and in 2022 status post PCI of the LAD as well as LCx, last stent placed was in 2022, hypertension and hypertensive cardiovascular disease, mixed hyperlipidemia, diabetes mellitus type 2, legally blind, history of ischemic cerebrovascular accident in the past with left-sided weakness, history of recurrent TIA, history of enlarged prostate, history of anxiety and depressive disorder, history of end-stage renal disease on hemodialysis Thursday and Thursday via fistula in the left upper extremity, patient was recently hospitalized at [facility] on June 16, 2024 after he was admitted for chest pain, at that time he underwent left heart catheterization bilaterally that showed normal LV diastolic and pressure, it did show a normal left main artery, LAD was normal with minimal stenosis in the midportion to the distal portion about 60%, the left circumflex artery was patent where the stents were placed, minimal irregularities, the RCA was totally occluded in the proximal portion, there was collateral from the LAD to distal RCA, patient then was discharged from the hospital and he came back to the hospital because of urinary retention, ended up having Garcia catheter placed and he was seen in consultation by urology who recommended for the patient to have a Garcia catheter and follow-up with Dr. Lambert as an outpatient after he was started on Flomax 0.4 mg once every day, he also was found to have a significant dysphagia at that time, he had esophagram that showed evidence of significant stricture at the base of the esophagus with irregularities he was seen at that time by Dr. Cabello, it was recommended for the patient to have an EGD as an outpatient, patient was not able to eat or drink much, he was complaining of significant pain in the throat, he was not able to eat much, his hemoglobin did drop to 7.4 from 9.8, therefore the patient was admitted to the hospital for evaluation by gastroenterology, we will monitor the patient hemoglobin very closely, start the patient on Protonix 40 mg IV push every 12 hours, patient also will be admitted to the hospital he will be seen in consultation by gastroenterology for possible EGD tomorrow morning, he will be also seen in consultation by nephrology for hemodialysis ordered. 06/29: Patient is laying down in bed in no apparent distress, he did receive 1 unit of packed red blood cells earlier today, because his hemoglobin is down to 6.7, he complains of black tarry stool, he has no appetite, he has difficulty swallowing, he feels nauseated, he was seen in consultation by nephrology as well as gastroenterology scheduled to go for EGD tomorrow at 4 PM, he will go for hemodialysis this afternoon as well as tomorrow morning, I will follow-up with the patient very closely, patient continues to be off antiplatelet therapy for now, we will monitor the patient very closely REVIEW OF SYSTEMS: Constitutional: No documented fever, no chills, no night sweats. Significant weight change. Generalized weakness, fatigue or lethargy. No daytime sleepiness. EENT: No headache. No blurred vision or double vision, positive for loss of vision. No loss of Hearing, no ringing in the ears, no dizziness. No nasal drainage or congestion. No epistaxis. No sore throat. Lungs: Positive for shortness of breath, no cough, no sputum production. No wheezing. Reports dyspnea with activity. Cardiovascular: Positive for chest pain, no lower extremity edema. No palpitations. No paroxysmal nocturnal dyspnea. No orthopnea. No lightheadedness or dizziness. No syncopal episodes. Abdominal: Reports abdominal pain. Positive for nausea, vomiting. No diarrhea. No constipation. No bloody positive for tarry stools reports loss of appetite. Genitourinary: No dysuria, increased frequency, urgency. No urinary retention. Musculoskeletal: No myalgias. No muscle weakness, no gait dysfunction, no frequent falls. No back pain. No neck pain. Integumentary: No wounds, no lesions. No rash or pruritus. No unusual bruisin g. No change in hair or nails. Neurologic: No aphasia. No facial droop. No change in mentation. No head injury. No headache. No paralysis. Positive for paresthesia due to diabetic polyneuropathy Psychiatric: Positive for depression. No anxiety. No mood swings. Endocrine: Positive for abnormal blood sugars. Significant weight change. PHYSICAL EXAMINATION: General: 58-year-old male laying down in bed in no apparent distress. HEENT: Head is atraumatic, normocephalic, pupils were equal round reactive to light and recommendation, extraocular muscle movement were intact, sclera n onicteric, conjunctivae were pale, mucous membranes of the mouth are somewhat dry. Neck: Supple, no JVP, normal carotid upstroke bilaterally, no lymphadenopathy. Chest: Decreased breath sounds at the bases, few rhonchi, no expiratory wheezes, no chest wall tenderness, no intercostal retractions. Heart: First heart sound is normal, second heart sounds normal systolic ejection murmur 2/6 located in the left sternal border. Abdomen: Soft, mild tenderness in the epigastric area., nondistended, positive bowel sounds. Extremities: There is no edema no calf tenderness DP +2 bilaterally. Neurologic examination: Patient is awake alert and oriented x3, cranial nerves II-12 appear grossly intact, left-sided weakness that has been chronic. ASSESSMENT AND PLAN: 1. Severe dysphagia with worsening anemia. Status post 1 unit of packed blood cell transfusion repeat hemoglobin tomorrow morning, transfuse for hemoglobin less than 7, continue Protonix 40 mg IV push every 12 hours, GI consultation a ppreciated EGD tomorrow afternoon. 2. Acute blood loss anemia likely esophageal source rule out esophageal carcinoma. Patient is scheduled to go for EGD tomorrow morning, status post 1 unit of packed red blood cell transfusion, continue Protonix 40 mg a push every 12 hours. 3. End-stage renal disease on hemodialysis Thursday and Thursday. Consult nephrology for hemodialysis ordered. 4. Generalized weakness likely related to poor oral intake as well as worsening anemia. Continue treatment as in previous paragraphs. 5. Coronary artery disease status post recent heart catheterization 06/17/2024 that showed stable disease with patent stented arteries of the LAD and LCx. Continue patient on metoprolol ER 50 mg orally once every day, isosorbide mononitrate 50 mg orally once every day, hydralazine 50 mg orally 3 times every day, atorvastatin 80 mg once every day, ranolazine 500 mg orally twice every day, hold aspirin and Plavix for now. 6. Hypertension and hypertensive cardiovascular disease. Continue patient on metoprolol ER 50 mg once every day, hydralazine 50 mg orally 3 times every day, losartan 25 mg once every day, hold off nifedipine for now. 7. Mixed hyperlipidemia. Continue patient on atorvastatin 80 mg once every day, monitor the patient lipid panel, keep LDL 55 8. PAD. Stable at this time. Continue atorvastatin for secondary prevention. 9. Diabetes mellitus type 2 . Patient was started on sliding scale insulin, I will add the patient on Levemir 7 units at bedtime. 10. History of CVA in the past with left-sided weakness and recurrent TIA. Continue patient on atorvastatin 80 mg once every day, hold aspirin and Plavix due to possible GI bleed. 11. Enlarged prostate with urinary retention. Continue Flomax 0.4 mg once every day, continue Garcia catheter in place, void trial to be done as an outpatient 12. History of gout. Continue patient on allopurinol 100 mg once every day. 13. History of anxiety and depressive disorder. Continue citalopram 60 mg orally once every day. 14. Prognosis is guarded. Objective - Vital Signs Vital signs: Vital Signs Temp 97.6 F 06/29/24 14:13 Pulse 56 L 06/29/24 14:13 Resp 18 06/29/24 14:13 BP 135/60 06/29/24 14:13 Pulse Ox 99 06/29/24 14:13 FiO2 Intake & Output 06/28/24 06/29/24 06/29/24 18:59 06:59 18:59 Intake Total 310 Output Total 800 Balance -800 310 Weight 79.379 kg 79.379 kg 79.379 kg Intake: Blood Product 310 Rc As-1 Unit 310 [id number] Output: Urine 800 Other: Voiding Method Indwelling Catheter Indwelling Catheter - Labs CBC & Chem 7: 06/29/24 04:22 06/29/24 04:22 Labs: Abnormal Lab Results - Last 24 Hours (Table) 06/28/24 06/28/24 06/28/24 Range/Units 15:37 15:44 20:48 RBC 2.49 L (4.30-5.90) m/uL Hgb 7.4 L (13.0-17.5) gm/dL Hct 21.6 L (39.0-53.0) % RDW 15.9 H (11.5-15.5) % Plt Count 115 L (150-450) k/uL MPV (9.5-12.2) FL Potassium (3.5-5.5) mmol/L Chloride (96-109) mmol/L Anion Gap (4.00-12.00) mmol/L BUN (9.0-27.0) mg/dL Creatinine (0.6-1.5) mg/dL Est GFR (CKD-EPI) (>=60) BUN/Creatinine Ratio (12.00-20.00) Ratio Glucose (70-110) mg/dL POC Glucose (mg/dL) 301 H (70-110) mg/dL Hemoglobin A1c (<=6.0) % Calcium (8.7-10.3) mg/dL Total Protein (6.2-8.2) g/dL Albumin (3.8-4.9) g/dL Crossmatch See Detail 06/29/24 06/29/24 06/29/24 Range/Units 04:22 04:22 04:22 RBC 2.36 L (4.30-5.90) m/uL Hgb 6.7 A* (13.0-17.5) gm/dL Hct 20.5 L (39.0-53.0) % RDW 15.5 H (11.5-15.5) % Plt Count 110 L (150-450) k/uL MPV 9.3 L (9.5-12.2) FL Potassium 3.4 L (3.5-5.5) mmol/L Chloride 94 L (96-109) mmol/L Anion Gap 15.40 H (4.00-12.00) mmol/L BUN 45.1 H (9.0-27.0) mg/dL Creatinine 5.6 H (0.6-1.5) mg/dL Est GFR (CKD-EPI) 11 L (>=60) BUN/Creatinine Ratio 8.05 L (12.00-20.00) Ratio Glucose 118 H (70-110) mg/dL POC Glucose (mg/dL) (70-110) mg/dL Hemoglobin A1c 11.4 H (<=6.0) % Calcium 7.7 L (8.7-10.3) mg/dL Total Protein 5.8 L (6.2-8.2) g/dL Albumin 3.6 L (3.8-4.9) g/dL Crossmatch 06/29/24 06/29/24 Range/Units 06:30 12:11 RBC (4.30-5.90) m/uL Hgb (13.0-17.5) gm/dL Hct (39.0-53.0) % RDW (11.5-15.5) % Plt Count (150-450) k/uL MPV (9.5-12.2) FL Potassium (3.5-5.5) mmol/L Chloride (96-109) mmol/L Anion Gap (4.00-12.00) mmol/L BUN (9.0-27.0) mg/dL Creatinine (0.6-1.5) mg/dL Est GFR (CKD-EPI) (>=60) BUN/Creatinine Ratio (12.00-20.00) Ratio Glucose (70-110) mg/dL POC Glucose (mg/dL) 132 H 148 H (70-110) mg/dL Hemoglobin A1c (<=6.0) % Calcium (8.7-10.3) mg/dL Total Protein (6.2-8.2) g/dL Albumin (3.8-4.9) g/dL Crossmatch
--- NOTE | 2024-06-29 15:58 | P.CONS ---
History of Present Illness - Reason for Consult Consult date: 06/29/24 GI bleed Requesting physician: Dylon Pantoja - Chief Complaint Weakness, black stool - History of Present Illness This a pleasant 58-year-old male with multiple comorbidities including chronic anemia, chronic thrombocytopenia, diabetes mellitus, coronary artery disease on aspirin and Plavix, hyperlipidemia, hypertension, chronic kidney disease on hemodialysis, previous CVA, rheumatoid arthritis and recent admission for urinary tract infection who had presented to the emergency department with complaints of some diarrhea, generalized weakness and black stool x 1 day. On admission patient was noted to be anemic. He had reported that he had black stool times 1 episode. He has history of acid reflux and he has undergone Niesen fundoplication in 2020. He has had multiple upper endoscopies with findings of hiatal hernia gastritis. States that he did have a little difficulty swallowing and a little discomfort in his lower throat. No associated vomiting. He does take aspirin and Plavix for his coronary artery disease last taken yesterday. Last colonoscopy was in 2018 that was normal. Denying any abdominal pain, no diarrhea no bleeding today. Review of Systems REVIEW OF SYSTEMS: CARDIOPULMONARY: No chest pain or shortness of breath. Gastrointestinal: No abdominal pain. No nausea or vomiting. No hematemesis, coffee-ground emesis. Black stool. No rectal bleeding. GENITOURINARY: No dysuria or hematuria. Indwelling Garcia catheter for recent UTI MUSCULOSKELETAL: Reports normal range of motion., Joint pain. SKIN: No rashes. No jaundice. ENDOCRINE: No chills, fevers. No excessive weight gain or loss. No polydipsia or polyuria. PSYCHIATRIC: Unremarkable. NEUROLOGY: No change in mental status. Denies dizziness, headache. ENT: Vision unremarkable. CONSTITUTIONAL: No recent weight loss. No fever, chills, night sweats. Past Medical History Past Medical History: Coronary Artery Disease (CAD), Chest Pain / Angina, CVA/TIA, Diabetes Mellitus, Eye Disorder, GERD/Reflux, Hearing Disorder / Deafness, Hyperlipidemia, Hypertension, Myocardial Infarction ([place]), Prostate D isorder, Renal Disease, Rheumatoid Arthritis (RA) Additional Past Medical History / Comment(s): [place] X2 in 2014 and 02/2023., 02 3L/[place]., Hx stroke Apr 2017. , hx tia's ., left side weakness., Migranes., Diabetic neuropathy arms and legs, tremors off and on, circulation problems, uses quad cane and wheelchair., Kidney disease with dialysis [facility]. Hx Pancreatitis., Legally blind, some trouble hearing. Enlarged prostate, trouble urinating. , hx of recent uti's., anemia., constipation Last Myocardial Infarction Date:: 02/2023 History of Any Multi-Drug Resistant Organisms: None Reported Past Surgical History: Cholecystectomy, Heart Catheterization, Heart Catheterization With Stent, Heart Catheterization With Stent, Hernia Repair, Prostate Surgery Additional Past Surgical History / Comment(s): Dialysis Port Placed - 03/14/23, HIATAL HERNIA REPAIR - 01/23/21., states hx 5 heart caths with 5 stents. Past Anesthesia/Blood Transfusion Reactions: No Reported Reaction Additional Past Anesthesia/Blood Transfusion Reaction / Comm: . Date of Last Stent Placement:: 05/07/23 Past Psychological History: Anxiety, Depression Additional Psychological History / Comment(s): He uses a quad cane or walker to ambulate. He is legally blind. He reads minimally with magnifying glass and signs his name only now. Smoking Status: Never smoker Past Alcohol Use History: None Reported Past Drug Use History: None Reported - Past Family History Mother Family Medical History: CVA/TIA, Diabetes Mellitus, Hypertension Additional Family Medical History / Comment(s): Parkinson's. Father Family Medical History: Myocardial Infarction ([place]) Additional Family Medical History / Comment(s): Father of a [place] in his 50s. Medications and Allergies Home Medications Medication Instructions Recorded Confirmed Type Pantoprazole [Protonix] 40 mg PO BID 11/05/17 06/28/24 History Tamsulosin [Flomax] 0.4 mg PO BID 11/05/17 06/28/24 History Citalopram Hydrobromide [CeleXA] 20 mg PO DAILY 12/12/18 06/28/24 History allopurinoL [Zyloprim] 100 mg PO DAILY 04/05/19 06/28/24 History Atorvastatin [Lipitor] 80 mg PO HS 12/30/19 06/28/24 History Citalopram Hydrobromide [CeleXA] 40 mg PO DAILY 06/29/20 06/28/24 History Folic Acid/Vit B Complex and C 0.8 mg PO DAILY 05/05/23 06/28/24 History [Nephro-Cirilo Tablet] Losartan [Cozaar] 25 mg PO DAILY 09/19/23 06/28/24 History Metoprolol Succinate (ER) [Toprol 50 mg PO DAILY 09/19/23 06/28/24 History XL] Ranolazine [Ranexa] 500 mg PO Q12HR #60 tab 09/21/23 06/28/24 Rx Furosemide [Lasix] 80 mg PO DAILY 10/16/23 06/28/24 History Nitroglycerin Sl Tabs [Nitrostat] 0.4 mg SL Q5M PRN 10/16/23 06/28/24 History hydrALAZINE HCL [Apresoline] 50 mg PO TID 04/12/24 06/28/24 History Calcium Carbonate [Tums] 500 mg PO TID 06/16/24 06/28/24 History Clopidogrel [Plavix] 75 mg PO DAILY 06/16/24 06/28/24 History NIFEdipine XL [Procardia XL] 60 mg PO DAILY 06/16/24 06/28/24 History Aspirin 81 mg PO DAILY 06/20/24 06/28/24 History Loratadine [Claritin] 10 mg PO DAILY #30 tab 06/24/24 06/28/24 Rx Midodrine [ProAmatine] 5 mg PO DAILY PRN #30 tab 06/24/24 06/28/24 Rx Oxymetazoline 0.05% Nasl [place] 2 spray NASAL BID PRN #1 dispenser 06/24/24 06/28/24 Rx [Afrin 0.05% Nasal [place]] Isosorbide Mononitrate ER [Imdur] 15 mg PO DAILY 06/28/24 06/28/24 History Allergies Allergy/AdvReac Type Severity Reaction Status Date / Time hydromorphone AdvReac Confusion Verified 06/28/24 18:47 Iodinated Contrast Media AdvReac Nausea & Verified 06/28/24 18:47 [Iodinated Contrast- Oral Vomiting and IV Dye] sucralfate AdvReac Nausea & Verified 06/28/24 18:47 Vomiting Physical Exam Vitals: Vital Signs Temp Pulse Pulse Pulse Resp BP BP 06/29/24 07:00 97.4 F L 60 16 06/29/24 02:00 98.2 F 66 17 134/65 06/28/24 20:00 98.4 F 67 17 154/77 06/28/24 18:30 60 16 128/54 06/28/24 17:30 58 L 19 122/61 06/28/24 17:00 58 L 14 126/62 06/28/24 15:12 60 18 129/67 06/28/24 14:56 61 16 112/67 06/28/24 12:05 98.4 F 66 16 97/55 BP Pulse Ox 06/29/24 07:00 126/66 100 06/29/24 02:00 06/28/24 20:00 100 06/28/24 18:30 97 06/28/24 17:30 97 06/28/24 17:00 98 06/28/24 15:12 98 06/28/24 14:56 98 06/28/24 12:05 100 Intake and Output 06/28/24 06/29/24 06/29/24 22:59 06:59 14:59 Output Total 600 200 Balance -600 -200 Output: Urine 600 200 Other: Voiding Method Indwelling Catheter Indwelling Catheter Weight 79.379 kg General appearance: The patient is alert, oriented, appears in no acute distress. HET: Head is normocephalic and atraumatic. Conjunctiva pink. Sclera anicteric. Neck: Supple without lymphadenopathy. Abdomen: Soft, nontender, nondistended. Extremities: Normal skin color and turgor. No pedal edema Skin: No rashes, no jaundice Neurological: No focal deficits. Alert and oriented. Results CBC & Chem 7: 06/29/24 04:22 06/29/24 04:22 Labs: Abnormal Lab Results - Last 24 Hours (Table) 06/28/24 06/28/24 06/28/24 Range/Units 13:03 13:03 13:03 RBC 2.53 L (4.30-5.90) m/uL Hgb 7.4 L D (13.0-17.5) gm/dL Hct 21.6 L (39.0-53.0) % RDW 16.0 H (11.5-15.5) % Plt Count 121 L (150-450) k/uL MPV (9.5-12.2) FL Lymphocytes # 0.6 L (1.0-4.8) k/uL APTT 30.3 H (22.0-30.0) sec Sodium 133 L (137-145) mmol/L Potassium (3.5-5.5) mmol/L Chloride 95 L (98-107) mmol/L Anion Gap (4.00-12.00) mmol/L BUN 47 H (9-20) mg/dL Creatinine 4.94 H (0.66-1.25) mg/dL Est GFR (CKD-EPI) (>=60) BUN/Creatinine Ratio (12.00-20.00) Ratio Glucose 307 H (74-99) mg/dL POC Glucose (mg/dL) (70-110) mg/dL Hemoglobin A1c (<=6.0) % Plasma Lactic Acid Preet (0.7-2.0) mmol/L Calcium 7.5 L (8.4-10.2) mg/dL Total Protein 5.9 L (6.3-8.2) g/dL Albumin (3.8-4.9) g/dL Urine Protein (Negative) Urine Glucose (UA) (Negative) Urine Blood (Negative) Ur Leukocyte Esterase (Negative) Urine RBC (0-5) /hpf Urine WBC (0-5) /hpf Amorphous Sediment (None) /hpf Urine Mucus (None) /hpf Crossmatch 06/28/24 06/28/24 06/28/24 Range/Units 13:03 13:18 15:37 RBC (4.30-5.90) m/uL Hgb (13.0-17.5) gm/dL Hct (39.0-53.0) % RDW (11.5-15.5) % Plt Count (150-450) k/uL MPV (9.5-12.2) FL Lymphocytes # (1.0-4.8) k/uL APTT (22.0-30.0) sec Sodium (137-145) mmol/L Potassium (3.5-5.5) mmol/L Chloride (98-107) mmol/L Anion Gap (4.00-12.00) mmol/L BUN (9-20) mg/dL Creatinine (0.66-1.25) mg/dL Est GFR (CKD-EPI) (>=60) BUN/Creatinine Ratio (12.00-20.00) Ratio Glucose (74-99) mg/dL POC Glucose (mg/dL) (70-110) mg/dL Hemoglobin A1c (<=6.0) % Plasma Lactic Acid Preet 2.3 H* (0.7-2.0) mmol/L Calcium (8.4-10.2) mg/dL Total Protein (6.3-8.2) g/dL Albumin (3.8-4.9) g/dL Urine Protein 2+ H (Negative) Urine Glucose (UA) 1+ H (Negative) Urine Blood Small H (Negative) Ur Leukocyte Esterase Moderate H (Negative) Urine RBC 19 H (0-5) /hpf Urine WBC 12 H (0-5) /hpf Amorphous Sediment Few H (None) /hpf Urine Mucus Rare H (None) /hpf Crossmatch See Detail 06/28/24 06/28/24 06/29/24 Range/Units 15:44 20:48 04:22 RBC 2.49 L (4.30-5.90) m/uL Hgb 7.4 L (13.0-17.5) gm/dL Hct 21.6 L (39.0-53.0) % RDW 15.9 H (11.5-15.5) % Plt Count 115 L (150-450) k/uL MPV (9.5-12.2) FL Lymphocytes # (1.0-4.8) k/uL APTT (22.0-30.0) sec Sodium (137-145) mmol/L Potassium 3.4 L (3.5-5.5) mmol/L Chloride 94 L (98-107) mmol/L Anion Gap 15.40 H (4.00-12.00) mmol/L BUN 45.1 H (9-20) mg/dL Creatinine 5.6 H (0.66-1.25) mg/dL Est GFR (CKD-EPI) 11 L (>=60) BUN/Creatinine Ratio 8.05 L (12.00-20.00) Ratio Glucose 118 H (74-99) mg/dL POC Glucose (mg/dL) 301 H (70-110) mg/dL Hemoglobin A1c (<=6.0) % Plasma Lactic Acid Preet (0.7-2.0) mmol/L Calcium 7.7 L (8.4-10.2) mg/dL Total Protein 5.8 L (6.3-8.2) g/dL Albumin 3.6 L (3.8-4.9) g/dL Urine Protein (Negative) Urine Glucose (UA) (Negative) Urine Blood (Negative) Ur Leukocyte Esterase (Negative) Urine RBC (0-5) /hpf Urine WBC (0-5) /hpf Amorphous Sediment (None) /hpf Urine Mucus (None) /hpf Crossmatch 06/29/24 06/29/24 06/29/24 Range/Units 04:22 04:22 06:30 RBC 2.36 L (4.30-5.90) m/uL Hgb 6.7 A* (13.0-17.5) gm/dL Hct 20.5 L (39.0-53.0) % RDW 15.5 H (11.5-15.5) % Plt Count 110 L (150-450) k/uL MPV 9.3 L (9.5-12.2) FL Lymphocytes # (1.0-4.8) k/uL APTT (22.0-30.0) sec Sodium (137-145) mmol/L Potassium (3.5-5.5) mmol/L Chloride (98-107) mmol/L Anion Gap (4.00-12.00) mmol/L BUN (9-20) mg/dL Creatinine (0.66-1.25) mg/dL Est GFR (CKD-EPI) (>=60) BUN/Creatinine Ratio (12.00-20.00) Ratio Glucose (74-99) mg/dL POC Glucose (mg/dL) 132 H (70-110) mg/dL Hemoglobin A1c 11.4 H (<=6.0) % Plasma Lactic Acid Preet (0.7-2.0) mmol/L Calcium (8.4-10.2) mg/dL Total Protein (6.3-8.2) g/dL Albumin (3.8-4.9) g/dL Urine Protein (Negative) Urine Glucose (UA) (Negative) Urine Blood (Negative) Ur Leukocyte Esterase (Negative) Urine RBC (0-5) /hpf Urine WBC (0-5) /hpf Amorphous Sediment (None) /hpf Urine Mucus (None) /hpf Crossmatch Assessment and Plan (1) Complaint of melena Narrative/Plan: 58-year-old male with chronic anemia with multiple comorbidities including end- stage renal disease on hemodialysis presenting for weakness and reported 1 black stool. He was found to be anemic on admission with a hemoglobin of 7.4 with a drop today to 6.7. Getting 1 unit of blood transfused. Anemia is normocytic normochromic anemia. This may be anemia of chronic disease however he is on antiplatelet therapy secondary to coronary artery disease and history of GERD status post Niesen fundoplication. Patient also complained of some difficulty swallowing. Need to consider possible upper GI bleed including peptic ulcer disease, gastritis, esophagitis, AVM or other possible etiologies. Will proceed with upper endoscopy. Current Visit: Yes Status: Acute Code(s): K92.1 - [place] SNOMED Code(s): 2 160691 (2) Chronic anemia Current Visit: No Status: Acute Code(s): D64.9 - ANEMIA, UNSPECIFIED SNOMED Code(s): 380848626 (3) Coronary artery disease Current Visit: Yes Status: Acute Code(s): I25.10 - ATHSCL HEART DISEASE OF [place] CORONARY ARTERY W/O ANG PCTRS SNOMED Code(s): 11205770 (4) Diabetes Current Visit: Yes Status: Acute Code(s): E11.9 - TYPE 2 DIABETES MELLITUS WITHOUT COMPLICATIONS SNOMED Code(s): 78050755 (5) Generalized weakness Current Visit: Yes Status: Acute Code(s): R53.1 - WEAKNESS SNOMED Code(s): 06325852 (6) ESRD (end stage renal disease) on dialysis Current Visit: No Status: Acute Code(s): N18.6 - END STAGE RENAL DISEASE; Z99.2 - DEPENDENCE ON RENAL DIALYSIS SNOMED Code(s): 145866960 (7) UTI (urinary tract infection) Current Visit: No Status: Acute Code(s): N39.0 - URINARY TRACT INFECTION, SITE NOT SPECIFIED SNOMED Code(s): 45535469 Plan: 1. Continue symptomatic and supportive care 2. Hold aspirin and Plavix 3. Patient may have clear liquid diet up until breakfast tomorrow. Then n.p.o. starting at 8 AM 5. Agree with transfusing 1 unit of blood 6. Daily CBC, transfuse for hemoglobin less than 7 7. Iron studies ordered, will add ferritin 8. Avoid NSAIDs 9. Plan for upper endoscopy tomorrow 10. Continue with recommendations from nephrology Thank you for this consultation, we will continue to follow. Dr. Cherry Garcia I agree with the dictator's note, documented as a scribe by Joanna Paul.
[2024-06-29 16:26] LABS: % Iron Saturation 27.66 (15.00-50.00)
[2024-06-29] MEDS: NITROGLYCERIN SL TABS 0.4 MG TAB SUBLINGUAL STA (17:05)
[2024-06-29 17:11] LABS: Glucose,Whole Blood 143 mg/dL (70-110)
[2024-06-29 18:13] LABS: Phosphorus 2.4 mg/dL (2.5-4.5)
[2024-06-29] MEDS: DARBEPOETIN ALFA 60 MCG/0.3 ML SYRINGE SQ SCH (18:58)
[2024-06-29 20:13] LABS: Glucose,Whole Blood 175 mg/dL (70-110)
[2024-06-29] MEDS: INSULIN DETEMIR (LEVEMIR) 100 UNIT/ML SYR SQ SCH (21:05)
[2024-06-30 03:20] LABS: Hepatitis B Surface Antigen Nonreactive (Nonreactive)
[2024-06-30 03:21] LABS: Hepatitis B Surface AB- Quant 3.5 mIU/mL
[2024-06-30 05:16] LABS: Glucose,Whole Blood 111 mg/dL (70-110)
[2024-06-30] MEDS ORDERED: ISOSORBIDE MONONITRATE ER 30 MG TAB.ER.24H PO SCH (08:45)
[2024-06-30 09:19] LABS: Basophils # (A) 0.03 X 10*3/uL (0.00-0.10); Basophils % (A) 0.4 %; Eosinophils # (A) 0.14 X 10*3/uL (0.04-0.35); HCT 26.4 % (39.6-50.0); HGB 8.8 g/dL (13.0-17.0); Lymphocytes # (A) 1.44 X 10*3/uL (0.90-5.00); MCH 28.4 pg (27.0-32.0); MCHC 33.3 g/dL (32.0-37.0); MCV 85.2 FL (80.0-97.0); Mean Platelet Volume 8.9 FL (9.5-12.2); Monocytes # (A) 0.52 X 10*3/uL (0.20-1.00); Monocytes % (A) 7.6 %; NRBC Per 100 WBC 0 X 10*3/uL (0.00-0.01); Neutrophils # (A) 4.69 X 10*3/uL (1.80-7.70); Neutrophils % (A) 68.4 %; Platelet Count 131 X 10*3/uL (140-440); RDW 15.1 % (11.5-14.5); WBC 6.86 X 10*3/uL (4.50-10.00)
[2024-06-30] MEDS: ASPIRIN 81 MG PO SCH (09:21)
[2024-06-30 09:40] LABS: ALT 27 U/L (10-49); AST 32 U/L (14-35); Albumin 3.9 g/dL (3.8-4.9); Albumin/Globulin Ratio 1.56 Ratio (1.60-3.17); Alkaline Phosphatase 111 U/L (41-126); Blood Urea Nitrogen 25.4 mg/dL (9.0-27.0); Calcium 8.3 mg/dL (8.7-10.3); Carbon Dioxide 27.3 mmol/L (21.6-31.8); Chloride 96 mmol/L (96-109); Globulin 2.5 g/dL (1.6-3.3); Glucose 114 mg/dL (70-110); Potassium 3.5 mmol/L (3.5-5.5); Sodium 136 mmol/L (135-145); Total Bilirubin 0.5 mg/dL (0.3-1.2); Total Protein 6.4 g/dL (6.2-8.2)
--- NOTE | 2024-06-30 10:54 | P.CRDCN ---
History of Present Illness Consult date: 06/30/24 Consult reason: chest pain History of present illness: This is a 58-year-old male patient of Dr. MAC Avendaño with past medical history of end-stage renal disease on hemodialysis, coronary artery disease with known RCA occlusion with stenting of the circumflex and LAD in the past, diabetes mellitus, hypertension, hyperlipidemia, anemia of chronic disease. We have been asked to evaluate the patient for chest pain. Patient was recently hospitalized at the end of May and seen by cardiology during that hospitalization with no change in medical treatment. Patient presented to the emergency center due to not able to eat or drink with pain in his throat. Patient was found to have a drop in his hemoglobin. We have been asked to evaluate him for chest pain which he apparently developed yesterday while receiving hemodialysis. He was given 1 nitroglycerin with improvement of his chest pain. He denies any at this time and he has started dialysis treatment this morning. Blood pressure 140/72, heart rate in the 50s and 60s, pulse ox 99% on room air. Patient has been followed by nephrology and undergoing hemodialysis this morning and has been maintained on Aranesp and continued on oral Lasix per nephrology recommendations. Patient was also followed by GI with recommendations to hold aspirin and Plavix and he is scheduled for EGD today. He is status post transfusion 1 unit of packed RBCs. -EKG: Sinus rhythm with no acute ST-T wave changes. #2 sinus rhythm with no acute ST changes. -Chest x-ray: Borderline heart size. Interstitial prominence could reflect bronchitis or chronic asthma. No acute process -Laboratory studies: WBC 7.3, hemoglobin 6.7, platelet count 110. Sodium 135, potassium 3.4, CO2 25, BUN 45 creatinine 5.6. A1c 11.4 magnesium 1.8 troponin negative x 3. Influenza A, influenza B, RSV, COVID-19 not detected. Iron 52, TIBC 188, iron saturation 27.6, transferrin 134, ferritin 1378. -Home cardiac medications: Aspirin 81 mg daily, atorvastatin 80 mg at bedtime, Plavix 75 mg daily, Lasix 80 mg daily, hydralazine 50 mg 3 times daily, Imdur 15 mg daily, losartan 25 mg daily, Toprol XL 50 mg daily, Procardia XL 60 mg daily, Nitrostat as needed, Ranexa 500 mg every 12 hours, patient is also on midodrine as needed. -Cardiac catheterization performed 06/17/2024 revealed totally occluded RCA with normal filling pressures and no gradient. Widely patent stent in the LAD and circumflex. Distal one third of the LAD has diffuse disease. Plan for medical therapy -Echocardiogram performed 06/17/2024 revealed EF of 55 to 60%. Review Of Systems: At the time of my exam: CONSTITUTIONAL: Denies fever or chills. +Weight loss + weakness HEENT: Denies blurred vision, vision changes, or eye pain. Denies hemoptysis CARDIOVASCULAR: Denies chest pain. Denies orthopnea. Denies PND. Denies palpitations RESPIRATORY: Denies shortness of breath. GASTROINTESTINAL: Denies abdominal pain. Denies nausea or vomiting. HEMATOLOGIC: Denies bleeding disorders. GENITOURINARY: Denies any blood in urine. SKIN: Denies puritis. Denies rash. Physical examination: Gen: This is a 58-year-old male in no acute distress VS: reviewed HEENT: Head is atraumatic, normocephalic. Pupils equal, round. Sclerae is anicteric. NECK: Supple. No JVD. LUNGS: Clear to auscultation. No wheezes or rhonchi. No intercostal retract ions. HEART: Regular rate and rhythm. Systolic ejection murmur. ABDOMEN: Soft No tenderness. Garcia catheter in place. EXTREMITIES: No pedal edema. No calf tenderness. NEUROLOGICAL: Patient is awake, alert and oriented x3. Assessment: Stable angina History of coronary artery disease with last PCI 05/05/2023 Acute on chronic anemia, patient scheduled for EGD 06/30 End-stage renal disease on hemodialysis Diabetes mellitus Hypertension Hyperlipidemia Plan: Continue patient's home cardiac medications with the following changes: Increase Imdur to 30 mg daily Resume patient on aspirin 81 mg daily Resume Plavix once cleared by GI No need to repeat echocardiogram as this was done in May Further recommendations to follow based upon clinical course Thank you kindly for this consultation. Nurse practitioner note has been reviewed, I agree with documented findings and plan of care. Patient was seen and examined. Past Medical History Past Medical History: Coronary Artery Disease (CAD), Chest Pain / Angina, CVA/TIA, Diabetes Mellitus, Eye Disorder, GERD/Reflux, Hearing Disorder / Deafness, Hyperlipidemia, Hypertension, Myocardial Infarction ([place]), Prostate Disorder, Renal Disease, Rheumatoid Arthritis (RA) Additional Past Medical History / Comment(s): [place] X2 in 2014 and 02/2023., 02 3L/[place]., Hx stroke Apr 2017. , hx tia's ., left side weakness., Migranes., Diabetic neuropathy arms and legs, tremors off and on, circulation problems, uses quad cane and wheelchair., Kidney disease with dialysis [facility]. Hx Pancreatitis., Legally blind, some trouble hearing. Enlarged prostate, trouble urinating. , hx of recent uti's., anemia., constipation Last Myocardial Infarction Date:: 02/2023 History of Any Multi-Drug Resistant Organisms: None Reported Past Surgical History: Cholecystectomy, Heart Catheterization, Heart Catheterization With Stent, Heart Catheterization With Stent, Hernia Repair, Prostate Surgery Additional Past Surgical History / Comment(s): Dialysis Port Placed - 03/14/23, HIATAL HERNIA REPAIR - 01/23/21., states hx 5 heart caths with 5 stents. Past Anesthesia/Blood Transfusion Reactions: No Reported Reaction Additional Past Anesthesia/Blood Transfusion Reaction / Comment(s): . Date of Last Stent Placement:: 05/07/23 Past Psychological History: Anxiety, Depression Additional Psychological History / Comment(s): He uses a quad cane or walker to ambulate. He is legally blind. He reads minimally with magnifying glass and signs his name only now. Smoking Status: Never smoker Past Alcohol Use History: None Reported Past Drug Use History: None Reported - Past Family History Mother Family Medical History: CVA/TIA, Diabetes Mellitus, Hypertension Additional Family Medical History / Comment(s): Parkinson's. Father Family Medical History: Myocardial Infarction ([place]) Additional Family Medical History / Comment(s): Father of a [place] in his 50s. Medications and Allergies Home Medications Medication Instructions Recorded Confirmed Type Pantoprazole [Protonix] 40 mg PO BID 11/05/17 06/28/24 History Tamsulosin [Flomax] 0.4 mg PO BID 11/05/17 06/28/24 History Citalopram Hydrobromide [CeleXA] 20 mg PO DAILY 12/12/18 06/28/24 History allopurinoL [Zyloprim] 100 mg PO DAILY 04/05/19 06/28/24 History Atorvastatin [Lipitor] 80 mg PO HS 12/30/19 06/28/24 History Citalopram Hydrobromide [CeleXA] 40 mg PO DAILY 06/29/20 06/28/24 History Folic Acid/Vit B Complex and C 0.8 mg PO DAILY 05/05/23 06/28/24 History [Nephro-Cirilo Tablet] Losartan [Cozaar] 25 mg PO DAILY 09/19/23 06/28/24 History Metoprolol Succinate (ER) [Toprol 50 mg PO DAILY 09/19/23 06/28/24 History XL] Ranolazine [Ranexa] 500 mg PO Q12HR #60 tab 09/21/23 06/28/24 Rx Furosemide [Lasix] 80 mg PO DAILY 10/16/23 06/28/24 History Nitroglycerin Sl Tabs [Nitrostat] 0.4 mg SL Q5M PRN 10/16/23 06/28/24 History hydrALAZINE HCL [Apresoline] 50 mg PO TID 04/12/24 06/28/24 History Calcium Carbonate [Tums] 500 mg PO TID 06/16/24 06/28/24 History Clopidogrel [Plavix] 75 mg PO DAILY 06/16/24 06/28/24 History NIFEdipine XL [Procardia XL] 60 mg PO DAILY 06/16/24 06/28/24 History Aspirin 81 mg PO DAILY 06/20/24 06/28/24 History Loratadine [Claritin] 10 mg PO DAILY #30 tab 06/24/24 06/28/24 Rx Midodrine [ProAmatine] 5 mg PO DAILY PRN #30 tab 06/24/24 06/28/24 Rx Oxymetazoline 0.05% Nasl [place] 2 spray NASAL BID PRN #1 dispenser 06/24/24 06/28/24 Rx [Afrin 0.05% Nasal [place]] Isosorbide Mononitrate ER [Imdur] 15 mg PO DAILY 06/28/24 06/28/24 History Allergies Allergy/AdvReac Type Severity Reaction Status Date / Time hydromorphone AdvReac Confusion Verified 06/28/24 18:47 Iodinated Contrast Media AdvReac Nausea & Verified 06/28/24 18:47 [Iodinated Contrast- Oral Vomiting and IV Dye] sucralfate AdvReac Nausea & Verified 06/28/24 18:47 Vomiting Physical Exam Vitals: Vital Signs Temp Pulse Pulse Resp BP BP Pulse Ox 06/30/24 02:00 98.1 F 65 17 140/72 99 06/29/24 21:05 57 L 06/29/24 20:00 97.9 F 57 L 16 140/70 98 06/29/24 18:34 97.9 F 51 L 16 144/67 06/29/24 14:13 97.6 F 56 L 18 135/60 99 06/29/24 14:00 97.6 F 58 L 18 115/61 100 06/29/24 13:06 97.6 F 56 L 18 134/60 99 06/29/24 12:46 98.0 F 54 L 18 134/68 100 06/29/24 12:30 97.7 F 57 L 18 131/63 06/29/24 08:00 16 Intake and Output 06/29/24 06/30/24 06/30/24 22:59 06:59 14:59 Intake Total 400 Output Total 2400 200 Balance -2000 -200 Intake: Hemodialysis 400 Output: Urine 200 Hemodialysis 1400 Hemodialysis Net Amount 1000 Other: Voiding Method Indwelling Catheter Indwelling Catheter # Bowel Movements 1 1 Results 06/30/24 03:07 06/30/24 03:07 Cardiac Enzymes 06/29/24 06/29/24 06/29/24 Range/Units 04:22 17:45 21:05 AST 29 (14-35) U/L Troponin I 0.018 0.018 (0.000-0.034) ng/mL CBC 06/29/24 Range/Units 04:22 WBC 7.37 (4.50-10.00) X 10*3/uL RBC 2.36 L (4.40-5.60) X 10*6/uL Hgb 6.7 A* (13.0-17.0) g/dL Hct 20.5 L (39.6-50.0) % Plt Count 110 L (140-440) X 10*3/uL Comprehensive Metabolic Panel 06/29/24 Range/Units 04:22 Sodium 135 (135-145) mmol/L Potassium 3.4 L (3.5-5.5) mmol/L Chloride 94 L (96-109) mmol/L Carbon Dioxide 25.6 (21.6-31.8) mmol/L BUN 45.1 H (9.0-27.0) mg/dL Creatinine 5.6 H (0.6-1.5) mg/dL Glucose 118 H (70-110) mg/dL Calcium 7.7 L (8.7-10.3) mg/dL AST 29 (14-35) U/L ALT 25 (10-49) U/L Alkaline Phosphatase 99 (41-126) U/L Total Protein 5.8 L (6.2-8.2) g/dL Albumin 3.6 L (3.8-4.9) g/dL Current Medications Generic Name Dose Route Start Last Admin Trade Name Freq PRN Reason Stop Dose Admin Acetaminophen 650 mg 06/28/24 22:40 06/28/24 22:50 Acetaminophen Tab 325 Mg Tab PO 650 mg Q6HR PRN Administration Fever and/ or Pain Allopurinol 100 mg 06/29/24 09:00 06/29/24 08:23 Allopurinol 100 Mg Tab PO 100 mg DAILY JAD Administration Atorvastatin Calcium 80 mg 06/28/24 21:00 06/29/24 21:05 Atorvastatin 80 Mg Tab PO 80 mg HS JAD Administration Calcium Carbonate/Glycine 500 mg 06/28/24 22:00 06/29/24 21:05 Calcium Carbonate 500 Mg Chewable PO 500 mg TID JAD Administration Citalopram Hydrobromide 60 mg 06/29/24 09:00 06/29/24 08:22 Citalopram Hydrobromide 20 Mg Tab PO 60 mg DAILY JAD Administration Darbepoetin Omari 60 mcg 06/29/24 12:00 06/29/24 18:58 Darbepoetin Omari 60 Mcg/0.3 Ml Syringe SQ 60 mcg Q7D JAD Administration Dextrose/Water 25 ml 06/28/24 21:33 Dextrose 50% Syringe 50 Ml IVP PER PROTOCOL PRN Hypoglycemia Protocol Dextrose/Water 50 ml 06/28/24 21:33 Dextrose 50% Syringe 50 Ml IVP PER PROTOCOL PRN Hypoglycemia Protocol Furosemide 80 mg 06/29/24 09:00 06/29/24 08:23 Furosemide 80 Mg Tab PO 80 mg DAILY JAD Administration Hydralazine HCl 50 mg 06/28/24 22:00 06/29/24 21:04 Hydralazine Hcl 50 Mg Tab PO 50 mg TID JAD Administration Insulin Aspart 0 unit 06/28/24 21:45 06/30/24 05:23 Insulin Aspart (Novolog) 100 Unit/Ml Vial SQ Not Given ACHS [facility] Protocol Insulin Detemir 7 unit 06/29/24 21:00 06/29/24 21:05 Insulin Detemir (Levemir) 100 Unit/Ml Syr SQ 7 unit HS JAD Administration Isosorbide Mononitrate 15 mg 06/29/24 09:00 06/29/24 08:24 Isosorbide Mononitrate Er 30 Mg Tab.Er.24h PO 15 mg DAILY JAD Administration Loratadine 10 mg 06/29/24 09:00 06/29/24 08:23 Loratadine 10 Mg Tab PO 10 mg DAILY JAD Administration Losartan Potassium 25 mg 06/29/24 09:00 06/29/24 08:23 Losartan 25 Mg Tab PO 25 mg DAILY JAD Administration Metoprolol Succinate 50 mg 06/29/24 09:00 06/29/24 08:23 Metoprolol Succinate (Er) 50 Mg Tab.Er.24h PO 50 mg DAILY JAD Administration Multivit/Ca Carb/B Cmplx/FA/Prenat 1 each 06/29/24 09:00 06/29/24 08:23 Folic Acid-Vit B Complex-Vit C 1 Cap PO 1 each DAILY JAD Administration Nitroglycerin 0.4 mg 06/28/24 18:13 Nitroglycerin Sl Tabs 0.4 Mg Tab SUBLINGUAL Q5M PRN Chest Pain Ondansetron HCl 4 mg 06/29/24 03:17 06/30/24 05:25 Ondansetron 4 Mg/2 Ml Vial IVP 4 mg Q6HR PRN Administration Nausea And Vomiting Pantoprazole Sodium 40 mg 06/28/24 21:00 06/29/24 21:04 Pantoprazole 40 Mg/10 Ml Vial IVP 40 mg BID JAD Administration Ranolazine 500 mg 06/28/24 21:00 06/29/24 21:05 Ranolazine 500 Mg Tab.Er.12h PO 500 mg Q12HR JAD Administration Tamsulosin HCl 0.4 mg 06/28/24 21:00 06/29/24 21:04 Tamsulosin 0.4 Mg Cap.Er.24h PO 0.4 mg BID JAD Administration Intake and Output 01/08/25 01/09/25 01/09/25 22:59 06:59 14:59 Intake Total 400 Output Total 2400 200 Balance -2000 - Intake: Hemodialysis 400 Output: Urine 200 Hemodialysis 1400 Hemodialysis Net Amount 1000 Other: Voiding Method Indwelling Catheter Indwelling Catheter # Bowel Movements 1 1 06/29/24 04:22 06/29/24 04:22
[2024-06-30 12:34] LABS: Glucose,Whole Blood 91 mg/dL (70-110)
[2024-06-30] MEDS: ISOSORBIDE MONONITRATE ER 30 MG TAB.ER.24H PO SCH (12:46)
[2024-06-30] MEDS: IV FLUID CONTINUATION 1,000 ML IV ONE (16:31)
--- NOTE | 2024-06-30 16:46 | P.PCN ---
Date of Procedure: 06/30/24 Procedure(s) Performed: BRIEF HISTORY: Patient is a 58-year-old, pleasant, white male with history of end-stage renal disease on hemodialysis admitted to hospital with symptomatic anemia and hemoglobin of 6.8 g/dL requiring a unit of PRBC transfusion. Stated he had an episode of black tarry stools 2 days ago.. PROCEDURE PERFORMED: Esophagogastroduodenoscopy with cautery using a gold probe. PREOPERATIVE DIAGNOSIS: Anemia and black tarry stools. IV sedation per anesthesia. PROCEDURE: After informed consent was obtained, the patient was brought into the endoscopy unit. IV sedation was administered by Anesthesia under continuous monitoring. Initially the Olympus GIF-140 video endoscope was inserted into the mouth. Esophagus intubated without any difficulty. It was gradually advanced into the stomach and duodenum and carefully examined. The bulb and the second part of the duodenum appeared normal. The scope at this time was withdrawn to the stomach, adequately insufflated with air, and upon careful examination, mucosa of the antrum appeared normal. In the proximal body of the stomach there was a 5 mm linear venous malformation identified that was not bleeding. Cautery was performed using a gold probe. Rest of the, body, cardia and the fundus appeared normal. The scope was then withdrawn into the esophagus. Moderate size hiatal hernia noted. The GE junction was located at 39 cm from the incisors. The esophagus appeared normal. There were no erosions or ulcerations seen and th e patient tolerated the procedure well. IMPRESSION: 1. 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 2. Moderate size hiatal hernia. RECOMMENDATIONS: The findings of this examination were discussed with the patient as well as his family.. Monitor CBC daily. Advance diet as tolerated. Continue Protonix 40 mg daily.
[2024-06-30 17:36] LABS: Glucose,Whole Blood 97 mg/dL (70-110)
[2024-06-30] MEDS: CLOPIDOGREL 75 MG TAB PO SCH (20:32)
[2024-06-30 20:52] LABS: Glucose,Whole Blood 252 mg/dL (70-110)
--- NOTE | 2024-06-30 21:41 | P.PN ---
Subjective Patient is seen for follow-up for end-stage renal disease. Status post hemodialysis today. Scheduled for EGD later today. No significant complaints. Objective - Vital Signs Vital signs: Vital Signs Temp 99.2 F 06/30/24 19:06 Pulse 75 06/30/24 19:06 Resp 17 06/30/24 19:06 BP 152/62 06/30/24 19:06 Pulse Ox 99 06/30/24 19:06 FiO2 Intake & Output 06/30/24 06/30/24 07/01/24 06:59 18:59 06:59 Intake Total 2450 Output Total 200 2550 Balance -200 -100 Intake: IV 50 Hemodialysis 2400 Output: Urine 200 150 Hemodialysis 400 Hemodialysis Net Amount 2000 Other: Voiding Method Indwelling Catheter Indwelling Catheter Indwelling Catheter # Voids 0 # Bowel Movements 1 - Exam Patient is awake, comfortable, no acute distress. He appears euvolemic. No edema noted in the lower extremities. Abdomen is soft nontender [employer] exam grossly intact Patient is alert oriented x 3 - Labs CBC & Chem 7: 06/30/24 03:07 06/30/24 03:07 Labs: Abnormal Lab Results - Last 24 Hours (Table) 06/29/24 06/30/24 06/30/24 Range/Units 17:45 03:07 03:07 RBC 3.10 L (4.40-5.60) X 10*6/uL Hgb 8.8 L (13.0-17.0) g/dL Hct 26.4 L (39.6-50.0) % RDW 15.1 H (11.5-14.5) % Plt Count 131 L (140-440) X 10*3/uL MPV 8.9 L (9.5-12.2) FL Anion Gap 12.70 H (4.00-12.00) mmol/L Creatinine 4.1 H (0.6-1.5) mg/dL Est GFR (CKD-EPI) 16 L (>=60) BUN/Creatinine Ratio 6.20 L (12.00-20.00) Ratio Glucose 114 H (70-110) mg/dL POC Glucose (mg/dL) (70-110) mg/dL Calcium 8.3 L (8.7-10.3) mg/dL Ferritin 1378.0 H (22.0-322.0) ng/mL Albumin/Globulin Ratio 1.56 L (1.60-3.17) Ratio 06/30/24 06/30/24 Range/Units 05:15 20:39 RBC (4.40-5.60) X 10*6/uL Hgb (13.0-17.0) g/dL Hct (39.6-50.0) % RDW (11.5-14.5) % Plt Count (140-440) X 10*3/uL MPV (9.5-12.2) FL Anion Gap (4.00-12.00) mmol/L Creatinine (0.6-1.5) mg/dL Est GFR (CKD-EPI) (>=60) BUN/Creatinine Ratio (12.00-20.00) Ratio Glucose (70-110) mg/dL POC Glucose (mg/dL) 111 H 252 H (70-110) mg/dL Calcium (8.7-10.3) mg/dL Ferritin (22.0-322.0) ng/mL Albumin/Globulin Ratio (1.60-3.17) Ratio Assessment and Plan Assessment: 1. End-stage renal disease on hemodialysis on Thursday schedule. 2. Anemia from GI bleed, GI on consult 3. CKD mineral bone disorder 4. Urine retention with indwelling Garcia catheter 5. Coronary artery disease with coronary artery stents Plan: Hemodialysis today Maintain patient on Aranesp Continue with oral Lasix Continue with Tums for hypocalcemia in between meals. No need to take with meals as a binder as phosphorus is low.
--- NOTE | 2024-06-30 23:57 | P.PN ---
Subjective Progress Note Date: 06/30/24 HISTORY OF PRESENT ILLNESS: This is a 58-year-old male with a previous medical history significant for coronary artery disease status post myocardial infarction back in 2014 and in 2022 status post PCI of the LAD as well as LCx, last stent placed was in 2022, hypertension and hypertensive cardiovascular disease, mixed hyperlipidemia, diabetes mellitus type 2, legally blind, history of ischemic cerebrovascular accident in the past with left-sided weakness, history of recurrent TIA, history of enlarged prostate, history of anxiety and depressive disorder, history of end-stage renal disease on hemodialysis Thursday and Thursday via fistula in the left upper extremity, patient was recently hospitalized at [facility] on June 16, 2024 after he was admitted for chest pain, at that time he underwent left heart catheterization bilaterally that showed normal LV diastolic and pressure, it did show a normal left main artery, LAD was normal with minimal stenosis in the midportion to the distal portion about 60%, the left circumflex artery was patent where the stents were placed, minimal irregularities, the RCA was totally occluded in the proximal portion, there was collateral from the LAD to distal RCA, patient then was discharged from the hospital and he came back to the hospital because of urinary retention, ended up having Garcia catheter placed and he was seen in consultation by urology who recommended for the patient to have a Garcia catheter and follow-up with Dr. Lambert as an outpatient after he was started on Flomax 0.4 mg once every day, he also was found to have a significant dysphagia at that time, he had esophagram that showed evidence of significant stricture at the base of the esophagus with irregularities he was seen at that time by Dr. Cabello, it was recommended for the patient to have an EGD as an outpatient, patient was not able to eat or drink much, he was complaining of significant pain in the throat, he was not able to eat much, his hemoglobin did drop to 7.4 from 9.8, therefore the patient was admitted to the hospital for evaluation by gastroenterology, we will monitor the patient hemoglobin very closely, start the patient on Protonix 40 mg IV push every 12 hours, patient also will be admitted to the hospital he will be seen in consultation by gastroenterology for possible EGD tomorrow morning, he will be also seen in consultation by nephrology for hemodialysis ordered. 06/29: Patient is laying down in bed in no apparent distress, he did receive 1 unit of packed red blood cells earlier today, because his hemoglobin is down to 6.7, he complains of black tarry stool, he has no appetite, he has difficulty swallowing, he feels nauseated, he was seen in consultation by nephrology as well as gastroenterology scheduled to go for EGD tomorrow at 4 PM, he will go for hemodialysis this afternoon as well as tomorrow morning, I will follow-up with the patient very closely, patient continues to be off antiplatelet therapy for now, we will monitor the patient very closely 06/30: Patient is laying down in bed in no apparent distress, he is feeling better today, he denies any chest pain, shortness of breath, he had episode of chest pain yesterday, he was seen in consultation by cardiology who recommended current treatment plan, patient underwent upper endoscopy by Dr. 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 REVIEW OF SYSTEMS: Constitutional: No documented fever, no chills, no night sweats. Significant weight change. Generalized weakness, fatigue or lethargy. No daytime sleepiness. EENT: No headache. No blurred vision or double vision, positive for loss of vision. No loss of Hearing, no ringing in the ears, no dizziness. No nasal drainage or congestion. No epistaxis. No sore throat. Lungs: Positive for shortness of breath, no cough, no sputum production. No wheezing. Reports dyspnea with activity. Cardiovascular: Positive for chest pain, no lower extremity edema. No palpitations. No paroxysmal nocturnal dyspnea. No orthopnea. No lighthe adedness or dizziness. No syncopal episodes. Abdominal: Reports abdominal pain. Positive for nausea, vomiting. No diarrhea. No constipation. No bloody positive for tarry stools reports loss of appetite. Genitourinary: No dysuria, increased frequency, urgency. No urinary retention. Musculoskeletal: No myalgias. No muscle weakness, no gait dysfunction, no frequent falls. No back pain. No neck pain. Integumentary: No wounds, no lesions. No rash or pruritus. No unusual bruising. No change in hair or nails. Neurologic: No aphasia. No facial droop. No change in mentation. No head injury. No headache. No paralysis. Positive for paresthesia due to diabetic polyneuropathy Psychiatric: Positive for depression. No anxiety. No mood swings. Endocrine: Positive for abnormal blood sugars. Significant weight change. PHYSICAL EXAMINATION: General: 58-year-old male laying down in bed in no apparent distress. HEENT: Head is atraumatic, normocephalic, pupils were equal round reactive to light and recommendation, extraocular muscle movement were intact, sclera nonicteric, conjunctivae were pale, mucous membranes of the mouth are somewhat dry. Neck: Supple, no JVP, normal carotid upstroke bilaterally, no lymphadenopathy. Chest: Decreased breath sounds at the bases, few rhonchi, no expiratory wheezes, no chest wall tenderness, no intercostal retractions. Heart: First heart sound is normal, second heart sounds normal systolic ejection murmur 2/6 located in the left sternal border. Abdomen: Soft, mild tenderness in the epigastric area., nondistended, positive bowel sounds. Extremities: There is no edema no calf tenderness DP +2 bilaterally. Neurologic examination: Patient is awake alert and oriented x3, cranial nerves II-12 appear grossly intact, left-sided weakness that has been chronic. ASSESSMENT AND PLAN: 1. Severe dysphagia with worsening anemia. Status post 1 unit of packed blood cell transfusion repeat hemoglobin tomorrow morning, transfuse for hemoglobin less than 7, continue Protonix 40 mg IV push every 12 hours, GI consultation appreciated, EGD showed evidence of 5 mm arteriovenous malformation that was cauterized. 2. 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 3. End-stage renal disease on hemodialysis Thursday and Thursday. Patient did receive hemodialysis today and he is going back on his outpatient dialysis on Thursday. 4. Generalized weakness likely related to poor oral intake as well as worsening anemia. Continue treatment as in previous paragraphs. 5. Coronary artery disease status post recent heart catheterization 06/17/2024 that showed stable disease with patent stented arteries of the LAD and LCx. Continue patient on metoprolol ER 50 mg orally once every day, isosorbide mononitrate 50 mg orally once every day, hydralazine 50 mg orally 3 times every day, atorvastatin 80 mg once every day, ranolazine 500 mg orally twice every day, patient is back on aspirin and Plavix. 6. Hypertension and hypertensive cardiovascular disease. Continue patient on metoprolol ER 50 mg once every day, hydralazine 50 mg orally 3 times every day, losartan 25 mg once every day, hold off nifedipine for now. 7. Mixed hyperlipidemia. Continue patient on atorvastatin 80 mg once every day, monitor the patient lipid panel, keep LDL 55 8. PAD. Stable at this time. Continue atorvastatin for secondary prevention. 9. Diabetes mellitus type 2 . Patient was started on sliding scale insulin, I will add the patient on Levemir 7 units at bedtime. 10. History of CVA in the past with left-sided weakness and recurrent TIA. Continue patient on atorvastatin 80 mg once every day, patient is back on aspirin and Plavix. 11. Enlarged prostate with urinary retention. Continue Flomax 0.4 mg once every day, continue Garcia catheter in place, void trial to be done as an outpatient 12. History of gout. Continue patient on allopurinol 100 mg once every day. 13. History of anxiety and depressive disorder. Continue citalopram 60 mg orally once every day. 14. Prognosis is guarded. 15. Likely home tomorrow morning if hemoglobin is stable Objective - Vital Signs Vital signs: Vital Signs Temp 99.2 F 06/30/24 19:06 Pulse 75 06/30/24 19:06 Resp 17 06/30/24 19:06 BP 152/62 06/30/24 19:06 Pulse Ox 99 06/30/24 19:06 FiO2 Intake & Output 06/30/24 06/30/24 07/01/24 06:59 18:59 06:59 Intake Total 2450 Output Total 200 2550 Balance -200 -100 Intake: IV 50 Hemodialysis 2400 Output: Urine 200 150 Hemodialysis 400 Hemodialysis Net Amount 2000 Other: Voiding Method Indwelling Catheter Indwelling Catheter Indwelling Catheter # Voids 0 # Bowel Movements 1 2 - Labs CBC & Chem 7: 06/30/24 03:07 06/30/24 03:07 Labs: Abnormal Lab Results - Last 24 Hours (Table) 06/29/24 06/30/24 06/30/24 Range/Units 17:45 03:07 03:07 RBC 3.10 L (4.40-5.60) X 10*6/uL Hgb 8.8 L (13.0-17.0) g/dL Hct 26.4 L (39.6-50.0) % RDW 15.1 H (11.5-14.5) % Plt Count 131 L (140-440) X 10*3/uL MPV 8.9 L (9.5-12.2) FL Anion Gap 12.70 H (4.00-12.00) mmol/L Creatinine 4.1 H (0.6-1.5) mg/dL Est GFR (CKD-EPI) 16 L (>=60) BUN/Creatinine Ratio 6.20 L (12.00-20.00) Ratio Glucose 114 H (70-110) mg/dL POC Glucose (mg/dL) (70-110) mg/dL Calcium 8.3 L (8.7-10.3) mg/dL Ferritin 1378.0 H (22.0-322.0) ng/mL Albumin/Globulin Ratio 1.56 L (1.60-3.17) Ratio 06/30/24 06/30/24 Range/Units 05:15 20:39 RBC (4.40-5.60) X 10*6/uL Hgb (13.0-17.0) g/dL Hct (39.6-50.0) % RDW (11.5-14.5) % Plt Count (140-440) X 10*3/uL MPV (9.5-12.2) FL Anion Gap (4.00-12.00) mmol/L Creatinine (0.6-1.5) mg/dL Est GFR (CKD-EPI) (>=60) BUN/Creatinine Ratio (12.00-20.00) Ratio Glucose (70-110) mg/dL POC Glucose (mg/dL) 111 H 252 H (70-110) mg/dL Calcium (8.7-10.3) mg/dL Ferritin (22.0-322.0) ng/mL Albumin/Globulin Ratio (1.60-3.17) Ratio
[2024-07-01 06:26] LABS: Glucose,Whole Blood 81 mg/dL (70-110)
[2024-07-01 07:43] VITALS: TEMP 97.6
--- NOTE | 2024-07-01 08:55 | P.PN ---
Subjective Progress Note Date: 07/01/24 Principal diagnosis: Anemia, black stool This a pleasant 58-year-old male with multiple comorbidities including chronic anemia, chronic thrombocytopenia, diabetes mellitus, coronary artery disease on aspirin and Plavix, hyperlipidemia, hypertension, chronic kidney disease on hem odialysis, previous CVA, rheumatoid arthritis and recent admission for urinary tract infection who had presented to the emergency department with complaints of some diarrhea, generalized weakness and black stool x 1 day. On admission patient was noted to be anemic. He had reported that he had black stool times 1 episode. He has history of acid reflux and he has undergone Niesen fundoplication in 2020. He has had multiple upper endoscopies with findings of hiatal hernia gastritis. States that he did have a little difficulty swallowing and a little discomfort in his lower throat. No associated vomiting. He does take aspirin and Plavix for his coronary artery disease last taken yesterday. Last colonoscopy was in 2018 that was normal. Denying any abdominal pain, no diarrhea no bleeding today. 07/01/2024 Patient seen and examined today as a follow-up. He is status post upper endosco py with finding of nonbleeding gastric AVM status post cautery with gold probe as well as a moderate-sized hiatal hernia. Patient states yesterday evening he had feeling that there was something stuck at the back of his throat. He states that it caused him to vomit. He is tolerating his breakfast without any difficulty swallowing. States he still feels irritation in the back of his throat. Labs are currently pending. Objective - Vital Signs Vital signs: Vital Signs Temp 98.7 F 07/01/24 02:25 Pulse 56 L 07/01/24 02:25 Resp 16 07/01/24 02:25 BP 116/56 07/01/24 02:25 Pulse Ox 99 07/01/24 02:25 FiO2 Intake & Output 06/30/24 07/01/24 07/01/24 18:59 06:59 18:59 Intake Total 2450 Output Total 2550 400 Balance -100 -400 Intake: IV 50 Hemodialysis 2400 Output: Urine 150 400 Hemodialysis 400 Hemodialysis Net Amount 2000 Other: Voiding Method Indwelling Catheter Indwelling Catheter # Voids 0 # Bowel Movements 1 - Exam General appearance: The patient is alert, oriented, appears in no acute distress. HET: Head is normocephalic and atraumatic. Conjunctiva pink. Sclera anicteric. Neck: Supple without lymphadenopathy. Abdomen: Soft, nontender, nondistended. Extremities: Normal skin color and turgor. No pedal edema Skin: No rashes, no jaundice Neurological: No focal deficits. Alert and oriented. - Labs CBC & Chem 7: 06/30/24 03:07 06/30/24 03:07 Labs: Abnormal Lab Results - Last 24 Hours (Table) 06/30/24 06/30/24 06/30/24 Range/Units 03:07 03:07 20:39 RBC 3.10 L (4.40-5.60) X 10*6/uL Hgb 8.8 L (13.0-17.0) g/dL Hct 26.4 L (39.6-50.0) % RDW 15.1 H (11.5-14.5) % Plt Count 131 L (140-440) X 10*3/uL MPV 8.9 L (9.5-12.2) FL Anion Gap 12.70 H (4.00-12.00) mmol/L Creatinine 4.1 H (0.6-1.5) mg/dL Est GFR (CKD-EPI) 16 L (>=60) BUN/Creatinine Ratio 6.20 L (12.00-20.00) Ratio Glucose 114 H (70-110) mg/dL POC Glucose (mg/dL) 252 H (70-110) mg/dL Calcium 8.3 L (8.7-10.3) mg/dL Albumin/Globulin Ratio 1.56 L (1.60-3.17) Ratio Assessment and Plan (1) Complaint of melena Narrative/Plan: 58-year-old male with chronic anemia with multiple comorbidities including end- stage renal disease on hemodialysis presenting for weakness and reported 1 black stool. He was found to be anemic on admission with a hemoglobin of 7.4 with a drop today to 6.7. Getting 1 unit of blood transfused. Anemia is normocytic normochromic anemia. This may be anemia of chronic disease however he is on antiplatelet therapy secondary to coronary artery disease and history of GERD status post Niesen fundoplication. Patient also complained of some difficulty swallowing. Need to consider possible upper GI bleed including peptic ulcer disease, gastritis, esophagitis, AVM or other possible etiologies. Will proceed with upper endoscopy. Status post upper endoscopy with findings of nonbleeding gastric AVM status post cautery with gold probe and moderate hiatal hernia. This is likely what caused anemia and melena. May resume Plavix. Current Visit: Yes Status: Acute Code(s): K92.1 - MELENA SNOMED Code(s): 4651345 (2) Chronic anemia Narrative/Plan: Iron 52, ferritin 1378, anemia likely secondary to chronic disease Current Visit: No Status: Acute Code(s): D64.9 - ANEMIA, UNSPECIFIED SNOMED Code(s): 188842696 (3) Coronary artery disease Current Visit: Yes Status: Acute Code(s): I25.10 - ATHSCL HEART DISEASE OF [place] CORONARY ARTERY W/O ANG PCTRS SNOMED Code(s): 17125639 (4) Diabetes Current Visit: Yes Status: Acute Code(s): E11.9 - TYPE 2 DIABETES MELLITUS WITHOUT COMPLICATIONS SNOMED Code(s): 07629287 (5) Generalized weakness Current Visit: Yes Status: Acute Code(s): R53.1 - WEAKNESS SNOMED Code(s): 36070950 (6) ESRD (end stage renal disease) on dialysis Current Visit: No Status: Acute Code(s): N18.6 - END STAGE RENAL DISEASE; Z99.2 - DEPENDENCE ON RENAL DIALYSIS SNOMED Code(s): 309384862 (7) UTI (urinary tract infection) Current Visit: No Status: Acute Code(s): N39.0 - URINARY TRACT INFECTION, SITE NOT SPECIFIED SNOMED Code(s): 77180966 Plan: 1. Continue symptomatic and supportive care 2. May resume aspirin and Plavix 3. Diet as tolerated. Discussed with patient to chew up food good and eat small bites 4. Patient is status post upper endoscopy without any evidence of active bleeding. No plans for further endoscopic evaluation 5. Patient may have Cepacol lozenge for throat irritation 6. Iron studies not consistent with acute blood loss anemia, ferritin 1378 7. Avoid NSAIDs 8. Patient is cleared for discharge from gastroenterology. Thank you for allowing us to participate in the care of the patient, the GI se rvice will sign off, gastroenterology will not be available at the hospital this weekend and through next week. If further evaluation by gastroenterology is required the patient will need transfer as per the primary team's discretion. Dr. Cherry Garcia I agree with the dictator's note, documented as a scribe by Joanna Paul.
[2024-07-01 08:59] LABS: ALT 24 U/L (10-49); AST 30 U/L (14-35); Albumin 3.7 g/dL (3.8-4.9); Albumin/Globulin Ratio 1.61 Ratio (1.60-3.17); Alkaline Phosphatase 106 U/L (41-126); BUN/Creat Ratio 4.98 Ratio (12.00-20.00); Blood Urea Nitrogen 20.9 mg/dL (9.0-27.0); Calcium 7.9 mg/dL (8.7-10.3); Carbon Dioxide 28.9 mmol/L (21.6-31.8); Chloride 95 mmol/L (96-109); Globulin 2.3 g/dL (1.6-3.3); Glucose 73 mg/dL (70-110); Potassium 3.6 mmol/L (3.5-5.5); Sodium 133 mmol/L (135-145); Total Bilirubin 0.5 mg/dL (0.3-1.2)
[2024-07-01 09:01] LABS: Basophils # (A) 0.04 X 10*3/uL (0.00-0.10); Basophils % (A) 0.4 %; Eosinophils # (A) 0.13 X 10*3/uL (0.04-0.35); Eosinophils % (A) 1.3 %; HCT 24.2 % (39.6-50.0); Lymphocytes # (A) 1.09 X 10*3/uL (0.90-5.00); Lymphocytes % (A) 10.5 %; MCH 29.1 pg (27.0-32.0); MCHC 33.1 g/dL (32.0-37.0); Mean Platelet Volume 9.1 FL (9.5-12.2); Monocytes # (A) 0.64 X 10*3/uL (0.20-1.00); Monocytes % (A) 6.2 %; NRBC Per 100 WBC 0 X 10*3/uL (0.00-0.01); Neutrophils # (A) 8.41 X 10*3/uL (1.80-7.70); Neutrophils % (A) 81.1 %; Platelet Count 112 X 10*3/uL (140-440); RBC 2.75 X 10*6/uL (4.40-5.60); RDW 15.1 % (11.5-14.5); WBC 10.36 X 10*3/uL (4.50-10.00)
--- NOTE | 2024-07-01 09:25 | P.PN ---
Subjective Progress Note Date: 07/01/24 Consult reason: chest pain History of present illness: This is a 58-year-old male patient of Dr. MAC Avendaño with past medical history of end-stage renal disease on hemodialysis, coronary artery disease with known RCA occlusion with stenting of the circumflex and LAD in the past, diabetes mellitus, hypertension, hyperlipidemia, anemia of chronic disease. We have been asked to evaluate the patient for chest pain. Patient was recently hospitalized at the end of May and seen by cardiology during that hospitalization with no change in medical treatment. Patient presented to the emergency center due to not able to eat or drink with pain in his throat. Patient was found to have a drop in his hemoglobin. We have been asked to evaluate him for chest pain which he apparently developed yesterday while receiving hemodialysis. He was given 1 nitroglycerin with improvement of his chest pain. He denies any at this time and he has started dialysis treatment this morning. Blood pressure 140/72, heart rate in the 50s and 60s, pulse ox 99% on room air. Patient has been followed by nephrology and undergoing hemodialysis this morning and has been maintained on Aranesp and continued on oral Lasix per nephrology recommendations. Patient was also followed by GI with recommendations to hold aspirin and Plavix and he is scheduled for EGD today. He is status post transfusion 1 unit of packed RBCs. -EKG: Sinus rhythm with no acute ST-T wave changes. #2 sinus rhythm with no acute ST changes. -Chest x-ray: Borderline heart size. Interstitial prominence could reflect bronchitis or chronic asthma. No acute process -Laboratory studies: WBC 7.3, hemoglobin 6.7, platelet count 110. Sodium 135, potassium 3.4, CO2 25, BUN 45 creatinine 5.6. A1c 11.4 magnesium 1.8 troponin negative x 3. Influenza A, influenza B, RSV, COVID-19 not detected. Iron 52, TIBC 188, iron saturation 27.6, transferrin 134, ferritin 1378. -Home cardiac medications: Aspirin 81 mg daily, atorvastatin 80 mg at bedtime, Plavix 75 mg daily, Lasix 80 mg daily, hydralazine 50 mg 3 times daily, Imdur 15 mg daily, losartan 25 mg daily, Toprol XL 50 mg daily, Procardia XL 60 mg daily, Nitrostat as needed, Ranexa 500 mg every 12 hours, patient is also on midodrine as needed. -Cardiac catheterization performed 06/17/2024 revealed totally occluded RCA with normal filling pressures and no gradient. Widely patent stent in the LAD and circumflex. Distal one third of the LAD has diffuse disease. Plan for medical therapy -Echocardiogram performed 06/17/2024 revealed EF of 55 to 60%. 07/01/2024 Patient seen and examined. Blood pressure 116/61, heart rate in the 50s, pulse ox 98% on room air. Patient has had no further episodes of chest pain. Yesterday, patient underwent EGD with Dr. Bonilla which revealed 5 mm isolated nonbleeding gastric arteriovenous malformation status post cautery. Moderate size hiatal hernia. GI has cleared patient to resume aspirin and Plavix which has been done. Repeat blood work reveals WBC 10.3, hemoglobin 8, platelet count 112. Sodium 133, potassium 3.6, BUN 16 and creatinine 4.98. Physical examination: Gen: This is a 58-year-old male in no acute distress VS: reviewed HEENT: Head is atraumatic, normocephalic. Pupils equal, round. Sclerae is anicteric. NECK: Supple. No JVD. LUNGS: Clear to auscultation. No wheezes or rhonchi. No intercostal retractions. HEART: Regular rate and rhythm. Systolic ejection murmur. ABDOMEN: Soft No tenderness. Garcia catheter in place. EXTREMITIES: No pedal edema. No calf tenderness. NEUROLOGICAL: Patient is awake, alert and oriented x3. Assessment: Stable angina History of coronary artery disease with last PCI 05/05/2023 Acute on chronic anemia, patient scheduled for EGD 06/30 revealed arteriovenous malformation status post cautery End-stage renal disease on hemodialysis Diabetes mellitus Hypertension Hyperlipidemia Plan: Continue patient's home cardiac medications with the following changes: Continue increased Imdur 30 mg daily Continue patient on aspirin 81 mg daily and Plavix, cleared by GI No need to repeat echocardiogram as this was done in May Patient is cleared for discharge from cardiology and may follow-up in the office with Dr. Avendaño in 1 to 2 weeks. Nurse practitioner note has been reviewed, I agree with documented findings and plan of care. Patient was seen and examined. Objective - Vital Signs Vital signs: Vital Signs Temp 97.6 F 07/01/24 07:00 Pulse 55 L 07/01/24 07:00 Resp 15 07/01/24 07:00 BP 116/61 07/01/24 07:00 Pulse Ox 98 07/01/24 07:00 FiO2 Intake & Output 06/30/24 07/01/24 07/01/24 18:59 06:59 18:59 Intake Total 2450 Output Total 2550 400 Balance -100 -400 Intake: IV 50 Hemodialysis 2400 Output: Urine 150 400 Hemodialysis 400 Hemodialysis Net Amount 2000 Other: Voiding Method Indwelling Catheter Indwelling Catheter # Voids 0 # Bowel Movements 1 - Labs CBC & Chem 7: 07/01/24 03:50 07/01/24 03:50 Labs: Abnormal Lab Results - Last 24 Hours (Table) 06/30/24 06/30/24 06/30/24 Range/Units 03:07 03:07 20:39 RBC 3.10 L (4.40-5.60) X 10*6/uL Hgb 8.8 L (13.0-17.0) g/dL Hct 26.4 L (39.6-50.0) % RDW 15.1 H (11.5-14.5) % Plt Count 131 L (140-440) X 10*3/uL MPV 8.9 L (9.5-12.2) FL Anion Gap 12.70 H (4.00-12.00) mmol/L Creatinine 4.1 H (0.6-1.5) mg/dL Est GFR (CKD-EPI) 16 L (>=60) BUN/Creatinine Ratio 6.20 L (12.00-20.00) Ratio Glucose 114 H (70-110) mg/dL POC Glucose (mg/dL) 252 H (70-110) mg/dL Calcium 8.3 L (8.7-10.3) mg/dL Albumin/Globulin Ratio 1.56 L (1.60-3.17) Ratio
[2024-07-01 12:08] LABS: Glucose,Whole Blood 250 mg/dL (70-110)
[2024-07-01] MEDS: BENZOCAINE/MENTHOL LOZENG 1 EACH LOZENGE MUCOUS MEM PRN (13:54)
[2024-07-01 14:31] VITALS: BP 119/55; PULSE 62; RESP 14
--- NOTE | 2024-07-01 15:20 | P.DS ---
Providers Date of admission: 06/28/24 15:13 Expected date of discharge: 07/01/24 Attending physician: Diana Broderick Consults: 06/28/24 15:02 Consult Physician Urgent Consulting Provider: Sonja Garcia Consult Reason/Comments: GI bleed Do you want consulting provider notified?: Yes Consult Physician Urgent Consulting Provider: Kristina Gomez Consult Reason/Comments: Dialysis patient Do you want consulting provider notified?: Yes 06/29/24 17:01 Consult Physician Routine Consulting Provider: [facility] Consult Reason/Comments: chest pain Do you want consulting provider notified?: Yes Primary care physician: Diana Broderick [facility] Course: HISTORY OF PRESENT ILLNESS: This is a 58-year-old male with a previous medical history significant for coronary artery disease status post myocardial infarction back in 2014 and in 2022 status post PCI of the LAD as well as LCx, last stent placed was in 2022, hypertension and hypertensive cardiovascular disease, mixed hyperlipidemia, diabetes mellitus type 2, legally blind, history of ischemic cerebrovascular accident in the past with left-sided weakness, history of recurrent TIA, history of enlarged prostate, history of anxiety and depressive disorder, history of end-stage renal disease on hemodialysis Thursday and Thursday via fistula in the left upper extremity, patient was recently hospitalized at [facility] on June 16, 2024 after he was admitted for chest pain, at that time he underwent left heart catheterization bilaterally that showed normal LV diastolic and pressure, it did show a normal left main artery, LAD was normal with minimal stenosis in the midportion to the distal portion about 60%, the left circumflex artery was patent where the stents were placed, minimal irregularities, the RCA was totally occluded in the proximal portion, there was collateral from the LAD to distal RCA, patient then was discharged from the hospital and he came back to the hospital because of urinary retention, ended up having Garcia catheter placed and he was seen in consultation by urology who recommended for the patient to have a Agrcia catheter and follow-up with Dr. Lambert as an outpatient after he was started on Flomax 0.4 mg once every day, he also was found to have a significant dysphagia at that time, he had esophagram that showed evidence of significant stricture at the base of the esophagus with irregularities he was seen at that time by Dr. Cabello, it was recommended for the patient to have an EGD as an outpatient, patient was not able to eat or drink much, he was complaining of significant pain in the throat, he was not able to eat much, his hemoglobin did drop to 7.4 from 9.8, therefore the patient was admitted to the hospital for evaluation by gastroenterology, we will monitor the patient hemoglobin very closely, start the patient on Protonix 40 mg IV push every 12 hours, patient also will be admitted to the hospital he will be seen in consultation by gastroenterology for possible EGD tomorrow morning, he will be also seen in consultation by nephrology for hemodialysis ordered. 06/29: Patient is laying down in bed in no apparent distress, he did receive 1 unit of packed red blood cells earlier today, because his hemoglobin is down to 6.7, he complains of black tarry stool, he has no appetite, he has difficulty swallowing, he feels nauseated, he was seen in consultation by nephrology as well as gastroenterology scheduled to go for EGD tomorrow at 4 PM, he will go for hemodialysis this afternoon as well as tomorrow morning, I will follow-up with the patient very closely, patient continues to be off antiplatelet therapy for now, we will monitor the patient very closely 06/30: Patient is laying down in bed in no apparent distress, he is feeling better today, he denies any chest pain, shortness of breath, he had episode of chest pain yesterday, he was seen in consultation by cardiology who recommended current treatment plan, patient underwent upper endoscopy by Dr. 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 07/01: Patient sitting up in bed no apparent distress, his sister was at the bedside, patient is ready be discharged home, he will follow-up with us as an outpatient next week. Discharge diagnoses: 1. Severe dysphagia with worsening anemia. Status post EGD that showed evidence of arteriovenous malformation about 5 mm, with moderate size hiatal hernia status post gold probe treatment. 2. 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 End-stage renal disease on hemodialysis Thursday and Thursday. 4. Generalized weakness likely related to poor oral intake as well as worsening anemia. 5. Coronary artery disease status post recent heart catheterization 06/17/2024 that showed stable disease with patent stented arteries of the LAD and LCx. 6. Hypertension and hypertensive cardiovascular disease. 7. Mixed hyperlipidemia. 8. PAD. 9. Diabetes mellitus type 2 . 10. History of CVA in the past with left-sided weakness and recurrent TIA. 11. Enlarged prostate with urinary retention. 12. History of gout. 13. History of anxiety and depressive disorder. Patient Condition at Discharge: Fair Plan - Discharge Summary Discharge Rx Participant: No New Discharge Prescriptions: New Isosorbide Mononitrate ER [Imdur] 30 mg PO DAILY #90 tab Pen Needle, Diabetic [Pen (Gill) Needle 4mm 32G (BD)] 1 needle SQ DIRECTED 90 Days #400 each Insulin Lispro [humaLOG Kwikpen] 3 unit SQ ACHS 90 Days #10.8 ml Insulin Glargine,Hum.rec.anlog [Lantus Solostar Pen] 7 units SQ DAILY 90 Days #6.3 ml Continue Pantoprazole [Protonix] 40 mg PO BID Tamsulosin [Flomax] 0.4 mg PO BID Citalopram Hydrobromide [CeleXA] 20 mg PO DAILY allopurinoL [Zyloprim] 100 mg PO DAILY Atorvastatin [Lipitor] 80 mg PO HS Citalopram Hydrobromide [CeleXA] 40 mg PO DAILY Furosemide [Lasix] 80 mg PO DAILY Nitroglycerin Sl Tabs [Nitrostat] 0.4 mg SL Q5M PRN PRN Reason: Chest Pain Calcium Carbonate [Tums] 500 mg PO TID Loratadine [Claritin] 10 mg PO DAILY #30 tab Folic Acid/Vit B Complex and C [Nephro-Cirilo Tablet] 0.8 mg PO DAILY Metoprolol Succinate (ER) [Toprol XL] 50 mg PO DAILY Losartan [Cozaar] 25 mg PO DAILY Ranolazine [Ranexa] 500 mg PO Q12HR #60 tab hydrALAZINE HCL [Apresoline] 50 mg PO TID Clopidogrel [Plavix] 75 mg PO DAILY Aspirin 81 mg PO DAILY Oxymetazoline 0.05% Nasl [place] [Afrin 0.05% Nasal [place]] 2 spray NASAL BID PRN #1 dispenser PRN Reason: Congestion Discontinued NIFEdipine XL [Procardia XL] 60 mg PO DAILY Isosorbide Mononitrate ER [Imdur] 15 mg PO DAILY Midodrine [ProAmatine] 5 mg PO DAILY PRN #30 tab PRN Reason: dialysis Discharge Medication List Pantoprazole [Protonix] 40 mg PO BID 11/05/17 [History] Tamsulosin [Flomax] 0.4 mg PO BID 11/05/17 [History] Citalopram Hydrobromide [CeleXA] 20 mg PO DAILY 12/12/18 [History] allopurinoL [Zyloprim] 100 mg PO DAILY 04/05/19 [History] Atorvastatin [Lipitor] 80 mg PO HS 12/30/19 [History] Citalopram Hydrobromide [CeleXA] 40 mg PO DAILY 06/29/20 [History] Folic Acid/Vit B Complex and C [Nephro-Cirilo Tablet] 0.8 mg PO DAILY 05/05/23 [History] Losartan [Cozaar] 25 mg PO DAILY 09/19/23 [History] Metoprolol Succinate (ER) [Toprol XL] 50 mg PO DAILY 09/19/23 [History] Ranolazine [Ranexa] 500 mg PO Q12HR #60 tab 09/21/23 [Rx] Furosemide [Lasix] 80 mg PO DAILY 10/16/23 [History] Nitroglycerin Sl Tabs [Nitrostat] 0.4 mg SL Q5M PRN 10/16/23 [History] hydrALAZINE HCL [Apresoline] 50 mg PO TID 04/12/24 [History] Calcium Carbonate [Tums] 500 mg PO TID 06/16/24 [History] Clopidogrel [Plavix] 75 mg PO DAILY 06/16/24 [History] Aspirin 81 mg PO DAILY 06/20/24 [History] Loratadine [Claritin] 10 mg PO DAILY #30 tab 06/24/24 [Rx] Oxymetazoline 0.05% Nasl [place] [Afrin 0.05% Nasal [place]] 2 spray NASAL BID PRN #1 dispenser 06/24/24 [Rx] Insulin Glargine,Hum.rec.anlog [Lantus Solostar Pen] 7 units SQ DAILY 90 Days #6.3 ml 07/01/24 [Rx] Insulin Lispro [humaLOG Kwikpen] 3 unit SQ ACHS 90 Days #10.8 ml 07/01/24 [Rx] Isosorbide Mononitrate ER [Imdur] 30 mg PO DAILY #90 tab 07/01/24 [Rx] Pen Needle, Diabetic [Pen (Gill) Needle 4mm 32G (BD)] 1 needle SQ DIRECTED 90 Days #400 each 07/01/24 [Rx] Follow up Appointment(s)/Referral(s): [facility], [NON-STAFF] - As Needed Guerrero Avendaño MD [STAFF PHYSICIAN] - 1 Week Diana Broderick MD [Primary Care Provider] - 1 Week Activity/Diet/Wound Care/Special Instructions: [place] Choice [place] Documents and Provider Information Nursing homes used to be the only choice for older or disabled persons who needed help caring for themselves. Today there are many choices that allow individuals to live independently while receiving nursing facility level of care in their home or in a community setting. One program run by [place] Medicaid is the [place] Program. It began in 1991 as the Home and Community Based Services for the Elderly and Disabled (HCBS/ED) waiver program. We now know it as the [place] Choice [place], or simply, "the waiver." Through [facility], eligible adults who meet income and asset criteria can receive Medicaid-covered services like those provided by nursing homes but can stay in their own home or another residential setting. The waiver became available in all [facility] March 22, 1998. Each participant can receive the basic services [place] Medicaid covers, supports coordination, and one or more of the following services in the waiver: Adult day health (adult day care) Chore services Community health worker Community living supports Community transportation Counseling Environmental accessibility adaptations Matt intermediary Goods and services Home delivered meals Nursing services Personal emergency response systems (PERS) Private duty nursing/respiratory care Respite services Specialized medical equipment and supplies Training in a variety of independent living skills Discharge/Stand Alone Forms: Who Do I Call?, Community Resources, Help In The Home Discharge Disposition: HOME WITH HOME HEALTH SERVICES
--- NOTE | 2024-07-01 20:52 | P.PN ---
Subjective Patient is seen for follow-up for end-stage renal disease. Status post hemodialysis yesterday Status post EGD which showed angiodysplasia status post cauterization No significant complaints. Objective - Vital Signs Vital signs: Vital Signs Temp 97.6 F 07/01/24 14:31 Pulse 62 07/01/24 14:31 Resp 14 07/01/24 14:31 BP 119/55 07/01/24 14:31 Pulse Ox 99 07/01/24 14:31 FiO2 Intake & Output 07/01/24 07/01/24 07/02/24 06:59 18:59 06:59 Intake Total 118 Output Total 400 Balance -400 118 Weight 79.379 kg Intake: Oral 118 Output: Urine 400 Other: Voiding Method Indwelling Catheter # Voids 1 # Bowel Movements 1 - Exam Patient is awake, comfortable, no acute distress. He appears euvolemic. No edema noted in the lower extremities. Abdomen is soft nontender ATHLETIC COORDINATOR exam grossly intact Patient is alert oriented x 3 - Labs CBC & Chem 7: 07/01/24 03:50 07/01/24 03:50 Labs: Abnormal Lab Results - Last 24 Hours (Table) 06/30/24 07/01/24 07/01/24 Range/Units 20:39 03:50 03:50 WBC 10.36 H (4.50-10.00) X 10*3/uL RBC 2.75 L (4.40-5.60) X 10*6/uL Hgb 8.0 L (13.0-17.0) g/dL Hct 24.2 L (39.6-50.0) % RDW 15.1 H (11.5-14.5) % Plt Count 112 L (140-440) X 10*3/uL MPV 9.1 L (9.5-12.2) FL Immature Gran # 0.05 H (0.00-0.04) X 10*3/uL Neutrophils # 8.41 H (1.80-7.70) X 10*3/uL Sodium 133 L (135-145) mmol/L Chloride 95 L (96-109) mmol/L Creatinine 4.2 H (0.6-1.5) mg/dL Est GFR (CKD-EPI) 16 L (>=60) BUN/Creatinine Ratio 4.98 L (12.00-20.00) Ratio POC Glucose (mg/dL) 252 H (70-110) mg/dL Calcium 7.9 L (8.7-10.3) mg/dL Total Protein 6.0 L (6.2-8.2) g/dL Albumin 3.7 L (3.8-4.9) g/dL 07/01/24 Range/Units 12:07 WBC (4.50-10.00) X 10*3/uL RBC (4.40-5.60) X 10*6/uL Hgb (13.0-17.0) g/dL Hct (39.6-50.0) % RDW (11.5-14.5) % Plt Count (140-440) X 10*3/uL MPV (9.5-12.2) FL Immature Gran # (0.00-0.04) X 10*3/uL Neutrophils # (1.80-7.70) X 10*3/uL Sodium (135-145) mmol/L Chloride (96-109) mmol/L Creatinine (0.6-1.5) mg/dL Est GFR (CKD-EPI) (>=60) BUN/Creatinine Ratio (12.00-20.00) Ratio POC Glucose (mg/dL) 250 H (70-110) mg/dL Calcium (8.7-10.3) mg/dL Total Protein (6.2-8.2) g/dL Albumin (3.8-4.9) g/dL Assessment and Plan Assessment: 1. End-stage renal disease on hemodialysis on Thursday s mitchell. 2. Anemia from GI bleed, status post EGD and cauterization of AVM in the stomach 3. CKD mineral bone disorder 4. Urine retention with indwelling Garcia catheter 5. Coronary artery disease with coronary artery stents Plan: Hemodialysis in a.m. Maintain patient on Aranesp Continue with oral Lasix Continue with Tums for hypocalcemia in between meals. No need to take with meals as a binder as phosphorus is low.
== END 2024-07-01 15:52 | disposition home health service (06) | DRG 377 ==
LOC: EC 11:49 → 6NMEDSUR 15:04 → OBSVTOIN 15:13 → 6NMEDSUR 16:43
PROVIDERS: ADMIT Internal Medicine; ATTEND Internal Medicine
PROC: 5A1D70Z Performance of Urinary Filtration, Intermittent, Less than 6 Hours Per Day (ICD-10-PCS; 2024-06-29)
PROC: 30233N1 Transfusion of Nonautologous Red Blood Cells into Peripheral Vein, Percutaneous Approach (ICD-10-PCS; 2024-06-29)
PROC: 0W3P8ZZ Control Bleeding in Gastrointestinal Tract, Via Natural or Artificial Opening Endoscopic (ICD-10-PCS; principal; 2024-06-30 16:55)
DX: K31.811 Angiodysplasia of stomach and duodenum with bleeding (principal); N18.6 End stage renal disease; D62 Acute posthemorrhagic anemia; I13.11 Hypertensive heart and chronic kidney disease without heart failure, with stage 5 chronic kidney disease, or end stage renal disease; I69.354 Hemiplegia and hemiparesis following cerebral infarction affecting left non-dominant side; N39.0 Urinary tract infection, site not specified; R13.10 Dysphagia, unspecified; Z99.2 Dependence on renal dialysis; E11.22 Type 2 diabetes mellitus with diabetic chronic kidney disease; R53.1 Weakness; I25.118 Atherosclerotic heart disease of native coronary artery with other forms of angina pectoris; E78.2 Mixed hyperlipidemia; N40.1 Benign prostatic hyperplasia with lower urinary tract symptoms; R33.8 Other retention of urine; F41.9 Anxiety disorder, unspecified; F32.A Depression, unspecified; D69.6 Thrombocytopenia, unspecified; M06.9 Rheumatoid arthritis, unspecified; R19.7 Diarrhea, unspecified; D63.1 Anemia in chronic kidney disease; E11.42 Type 2 diabetes mellitus with diabetic polyneuropathy; H54.8 Legal blindness, as defined in USA; H91.90 Unspecified hearing loss, unspecified ear; I25.2 Old myocardial infarction; K44.9 Diaphragmatic hernia without obstruction or gangrene; M89.8X9 Other specified disorders of bone, unspecified site; Z79.02 Long term (current) use of antithrombotics/antiplatelets; Z79.4 Long term (current) use of insulin; Z79.82 Long term (current) use of aspirin; Z79.899 Other long term (current) drug therapy; Z82.49 Family history of ischemic heart disease and other diseases of the circulatory system; Z95.5 Presence of coronary angioplasty implant and graft; Z88.5 Allergy status to narcotic agent; Z88.8 Allergy status to other drugs, medicaments and biological substances; Z91.041 Radiographic dye allergy status
CPT/HCPCS: 36415; 43270; 71046; 80053; 81001; 82728; 83036; 83540; 83550; 83605; 83735; 84100; 84484; 85025; 85610; 85730; 86706; 86850; 86900; 86901; 86920; 87340; 87636; 90935; 93005; 94760; 96361; 96374; 99285

== ENCOUNTER 2024-07-12 14:28 | Emergency (ER) | payer MEDICARE ==
[2024-07-12 14:34] VITALS: PULSE 60; RESP 18; TEMP 97.3
[2024-07-12 16:17] LABS: Anisocytosis Slight; Basophils % (A) 0 %; Eosinophils # (A) 0.1 k/uL (0-0.7); Eosinophils % (A) 2 %; HCT 25.4 % (39.0-53.0); HGB 8.6 gm/dL (13.0-17.5); Lymphocytes # (A) 0.7 k/uL (1.0-4.8); Lymphocytes % (A) 15 %; MCH 30.2 pg (25.0-35.0); MCHC 33.8 g/dL (31.0-37.0); MCV 89.3 fL (80.0-100.0); Mean Platelet Volume 6.9; Monocytes # (A) 0.3 k/uL (0-1.0); Monocytes % (A) 7 %; Neutrophils # (A) 3.5 k/uL (1.3-7.7); Neutrophils % (A) 74 %; Platelet Count 124 k/uL (150-450); RBC 2.85 m/uL (4.30-5.90); RDW 16.1 % (11.5-15.5); WBC 4.7 k/uL (3.8-10.6)
[2024-07-12 16:21] LABS: Partial Thromboplastin Time 24.5 sec (22.0-30.0); Prothrombin Time 10.9 sec (10.0-12.5)
[2024-07-12 16:47] LABS: ALT 54 U/L (4-49); AST 33 U/L (17-59); African American GFR (CKD) 27 (>60 ml/min/1.73 sqM); Alkaline Phosphatase 95 U/L (38-126); Anion Gap 9 mmol/L; Blood Urea Nitrogen 39 mg/dL (9-20); Calcium 8.4 mg/dL (8.4-10.2); Carbon Dioxide 32 mmol/L (22-30); Chloride 94 mmol/L (98-107); Glucose 318 mg/dL (74-99); Non-African American GFR(CKD) 24 (>60 ml/min/1.73 sqM); Sodium 135 mmol/L (137-145); Total Bilirubin 0.6 mg/dL (0.2-1.3); Total Protein 6.6 g/dL (6.3-8.2)
[2024-07-12 16:56] LABS: NT-Pro-B-Type Natriuretic Pept 3380 pg/mL
--- NOTE | 2024-07-12 17:03 | XR ---
EXAMINATION TYPE: XR chest 2V DATE OF EXAM: 07/12/2024 4:51 PM COMPARISON: Chest radiographs from 06/28/2024 CLINICAL INDICATION: Male, 58 years old with history of Cough/pain; TECHNIQUE: XR chest 2V Frontal and lateral views of the chest. FINDINGS: Lungs/Pleura: There is no evidence of pleural effusion, focal consolidation, or pneumothorax. Pulmonary vascularity: Unremarkable. Heart/mediastinum: Cardiomediastinal silhouette is unremarkable. Musculoskeletal: No acute osseous pathology. IMPRESSION: No acute cardiopulmonary disease/process. [facility], , 07/12/2024 5:01 PM
--- NOTE | 2024-07-12 17:20 | ED ---
Chest Pain HPI - General Chief Complaint: Chest Pain Stated Complaint: Chest pain Time Seen by Provider: 07/12/24 15:16 Source: patient Mode of arrival: EMS Limitations: no limitations - History of Present Illness Initial Comments: 58-year-old male with past medical history of coronary artery disease, end-stage renal disease on hemodialysis who presents to the emergency department from dialysis. Patient was reporting chest pain and so the dialysis center discontinued his dialysis early. He typically goes Thursday, and Thursday. He received 2 out of his 4 hours when he started complaining of chest pain. They transported the patient immediately to the hospital without decannulating him. He was provided with 2 nitro. They noted that his glucose was 441. Patient admits that he takes 3 units of insulin with his meals. He did take 3 units this morning with breakfast. He has not had any lunch or insulin at lunchtime. He has a Dexcom. Patient has been hospitalized several times in the past for chest pain. Patient had a heart cath less than 1 month ago where it was recommended that the patient have optimal management of his medications. He has been taking all of his medications as they are instructed. He denies any fevers chills or cough. No ripping or tearing station to his back. No numbness, tingling or weakness in his extremities. No other alleviating, precipitating or modifying factors - Related Data Home Medications Medication Instructions Recorded Confirmed Pantoprazole [Protonix] 40 mg PO BID 11/05/17 07/12/24 Tamsulosin [Flomax] 0.4 mg PO BID 11/05/17 07/12/24 Citalopram Hydrobromide [CeleXA] 20 mg PO DAILY 12/12/18 07/12/24 allopurinoL [Zyloprim] 100 mg PO DAILY 04/05/19 07/12/24 Atorvastatin [Lipitor] 80 mg PO HS 12/30/19 07/12/24 Citalopram Hydrobromide [CeleXA] 40 mg PO DAILY 06/29/20 07/12/24 Folic Acid/Vit B Complex and C 0.8 mg PO DAILY 05/05/23 07/12/24 [Nephro-Cirilo Tablet] Losartan [Cozaar] 25 mg PO DAILY 09/19/23 07/12/24 Metoprolol Succinate (ER) [Toprol 50 mg PO DAILY 09/19/23 07/12/24 XL] Furosemide [Lasix] 80 mg PO DAILY 10/16/23 07/12/24 Nitroglycerin Sl Tabs [Nitrostat] 0.4 mg SL Q5M PRN 10/16/23 07/12/24 hydrALAZINE HCL [Apresoline] 50 mg PO TID 04/12/24 07/12/24 Calcium Carbonate [Tums] 500 mg PO TID 06/16/24 07/12/24 Clopidogrel [Plavix] 75 mg PO DAILY 06/16/24 07/12/24 Aspirin 81 mg PO DAILY 06/20/24 07/12/24 Insulin Glargine,Hum.rec.anlog 10 units SQ DAILY 07/12/24 07/12/24 [Lantus Solostar Pen] Insulin Lispro [humaLOG Kwikpen] 5 unit SQ ACHS 07/12/24 07/12/24 Previous Rx's Medication Instructions Recorded Ranolazine [Ranexa] 500 mg PO Q12HR #60 tab 09/21/23 Loratadine [Claritin] 10 mg PO DAILY #30 tab 06/24/24 Oxymetazoline 0.05% Nasl [place] 2 spray NASAL BID PRN #1 dispenser 06/24/24 [Afrin 0.05% Nasal [place]] Isosorbide Mononitrate ER [Imdur] 30 mg PO DAILY #90 tab 07/01/24 Allergies Allergy/AdvReac Type Severity Reaction Status Date / Time hydromorphone AdvReac Confusion Verified 07/12/24 15:57 Iodinated Contrast Media AdvReac Nausea & Verified 07/12/24 15:57 [Iodinated Contrast- Oral Vomiting and IV Dye] sucralfate AdvReac Nausea & Verified 07/12/24 15:57 Vomiting Review of Systems ROS Statement: Those systems with pertinent positive or pertinent negative responses have been documented in the HPI. ROS Other: All systems not noted in ROS Statement are negative. Past Medical History Past Medical History: Coronary Artery Disease (CAD), Chest Pain / Angina, CVA/TIA, Diabetes Mellitus, Eye Disorder, GERD/Reflux, Hearing Disorder / Deafness, Hyperlipidemia, Hypertension, Myocardial Infarction ([place]), Prostate Disorder, Renal Disease, Rheumatoid Arthritis (RA) Additional Past Medical History / Comment(s): [place] X2 in 2014 and 02/2023., 02 3L/NC., Hx stroke Apr 2017. , hx tia's ., left side weakness., Migranes., Diabetic neuropathy arms and legs, tremors off and on, circulation problems, uses quad cane and wheelchair., Kidney disease with dialysis [facility]. Hx Pancreatitis., Legally blind, some trouble hearing. Enlarged prostate, trouble urinating. , hx of recent uti's., anemia., constipation Last Myocardial Infarction Date:: 02/2023 History of Any Multi-Drug Resistant Organisms: None Reported Past Surgical History: Cholecystectomy, Heart Catheterization, Heart Catheterization With Stent, Heart Catheterization With Stent, Hernia Repair, Prostate Surgery Additional Past Surgical History / Comment(s): Dialysis Port Placed - 03/14/23, HIATAL HERNIA REPAIR - 01/23/21., states hx 5 heart caths with 5 stents. Past Anesthesia/Blood Transfusion Reactions: No Reported Reaction Additional Past Anesthesia/Blood Transfusion Reaction / Comment(s): . Date of Last Stent Placement:: 05/07/23 Past Psychological History: Anxiety, Depression Smoking Status: Never smoker Past Alcohol Use History: None Reported Past Drug Use History: None Reported - Past Family History Mother Family Medical History: CVA/TIA, Diabetes Mellitus, Hypertension Additional Family Medical History / Comment(s): Parkinson's. Father Family Medical History: Myocardial Infarction ([place]) Additional Family Medical History / Comment(s): Father of a [place] in his 50s. General Exam Limitations: no limitations General appearance: alert, in no apparent distress Head exam: Present: atraumatic, normocephalic, normal inspection Eye exam: Present: normal appearance, PERRL, EOMI. Absent: scleral icterus, conjunctival injection, periorbital swelling ENT exam: Present: normal exam, mucous membranes moist Neck exam: Present: normal inspection. Absent: tenderness, meningismus, lymphadenopathy Respiratory exam: Present: normal lung sounds bilaterally. Absent: respiratory distress, wheezes, rales, rhonchi, stridor Cardiovascular Exam: Present: regular rate, normal rhythm, normal heart sounds. Absent: systolic murmur, diastolic murmur, rubs, gallop, clicks GI/Abdominal exam: Present: soft, normal bowel sounds. Absent: distended, tenderness, guarding, rebound, rigid Extremities exam: Present: normal inspection, full ROM, normal capillary refill. Absent: tenderness, pedal edema, joint swelling, calf tenderness Back exam: Present: normal inspection Neurological exam: Present: alert, oriented X3, CN II-XII intact Psychiatric exam: Present: normal affect, normal mood Skin exam: Present: warm, dry, intact, normal color. Absent: rash Course Vital Signs 07/12/24 07/12/24 14:30 17:53 Temperature 97.3 F L Pulse Rate 60 60 Respiratory 18 18 Rate Blood Pressure 122/62 120/58 O2 Sat by Pulse 100 95 Oximetry Chest Pain MDM - MDM Was pt. sent in by a medical professional or institution (, [place], [facility], urgent care, hospital, or [place] [facility]...) When possible be specific @ -[No] Did you speak to anyone other than the patient for history (EMS, parent, family, police, friend...)? What history was obtained from this source @ -[No] Did you review nursing and triage notes (agree or disagree)? Why? @ -[I reviewed and agree with nursing and triage notes] Were old charts reviewed (outside hosp., previous admission, EMS record, old EKG, old radiological studies, urgent care reports/EKG's, [place] [facility] records)? Report findings @ -[No old charts were reviewed] Differential Diagnosis (chest pain, altered mental status, abdominal pain women, abdominal pain men, vaginal bleeding, weakness, fever, dyspnea, syncope, headache, dizziness, GI bleed, back pain, seizure, CVA, palpatations, mental health, musculoskeletal)? @ -[not applicable] EKG interpreted by me (3pts min.). @ -Yes and demonstrates sinus rhythm with a rate of 61. NV interval 166. QRS 102. QTc of 479. No acute ST segment elevations or depressions X-rays interpreted by me (1pt min.). @ -[None done] CT interpreted by me (1pt min.). @ -[None done] U/S interpreted by me (1pt. min.). @ -[None done] What testing was considered but not performed or refused? (CT, X-rays, U/S, labs)? Why? @ -[None] What meds were considered but not given or refused? Why? @ -[None] Did you discuss the management of the patient with other professionals (professionals i.e. , PA, [facility], lab, RT, psych nurse, social human services assistants, trailer mechanic, teacher, associate loan officer, returned case inspector)? Give summary @ -[No] Was smoking cessation discussed for >3mins.? @ -[No] Was critical care preformed (if so, how long)? @ -[No] Were there social determinants of health that impacted care today? How? ( Homelessness, low income, unemployed, alcoholism, drug addiction, transportation, low edu. Level, literacy, decrease access to med. care, [place] [facility], rehab)? @ -[No] Was there de-escalation of care discussed even if they declined (Discuss DNR or withdrawal of care, Hospice)? DNR status @ -[No] What co-morbidities impacted this encounter? (DM, HTN, Smoking, COPD, CAD, Cancer, CVA, ARF, Chemo, Hep., AIDS, mental health diagnosis, sleep apnea, morbid obesity)? @ -[None] Was patient admitted / discharged? Hospital course, mention meds given and route, prescriptions, significant lab abnormalities, going to OR and other pertinent info. @ -[hospital course] Undiagnosed new problem with uncertain prognosis? @ -[No] Drug Therapy requiring intensive monitoring for toxicity (Heparin, Nitro, Insulin, Cardizem)? @ -[No] Were any procedures done? @ -[No] Diagnosis/symptom? @ -[default] Acute, or Chronic, or Acute on Chronic? @ -[default] Uncomplicated (without systemic symptoms) or Complicated (systemic symptoms)? @ -[default] Side effects of treatment? @ -[No] Exacerbation, Progression, or Severe Exacerbation? @ -[No] Poses a threat to life or bodily function? How? (Chest pain, [place], [place], pneumonia, PE, COPD, DKA, ARF, appy, cholecystitis, CVA, Diverticulitis, Homicidal, Suicidal, threat to staff... and all critical care pts) @ -[No] Disposition Clinical Impression: Chest pain, Hyperglycemia Disposition: HOME SELF-CARE Condition: Stable Instructions (If sedation given, give patient instructions): Diabetic Hyperglycemia (ED) Additional Instructions: Dr. Broderick would like you to take 5 units of your insulin with meals and 10 units at nighttime of your long-acting. He is expecting to see you in office within the next 3 to 5 days for reevaluation of your symptoms. Return for any new or worsening symptoms Is patient prescribed a controlled substance at d/c from ED?: No Referrals: Diana Broderick MD [Primary Care Provider] - 1-2 days Time of Disposition: 17:20
[2024-07-12] MEDS: INSULIN REGULAR 100 UNIT/ML VIAL (IM/SQ) SQ ONE (17:50)
[2024-07-12 17:54] VITALS: BP 120/58
== END 2024-07-12 17:58 | disposition home or self-care (01) ==
LOC: EC 14:28
DX: R07.9 Chest pain, unspecified (principal); E11.65 Type 2 diabetes mellitus with hyperglycemia; Z88.8 Allergy status to other drugs, medicaments and biological substances; Z91.041 Radiographic dye allergy status
CPT/HCPCS: 36415; 71046; 80053; 82009; 83880; 84484; 85025; 85610; 85730; 93005; 99285

== ENCOUNTER 2024-07-20 14:10 | Emergency (ER) | payer MEDICARE ==
[2024-07-20 15:17] VITALS: RESP 16
[2024-07-20] MEDS: SODIUM CHLORIDE 0.9% 500 ML 500 ML IV STA (15:22)
[2024-07-20] MEDS: NITROGLYCERIN SL TABS 0.4 MG TAB SUBLINGUAL STA (15:48)
[2024-07-20 16:02] LABS: Partial Thromboplastin Time 27.5 sec (22.0-30.0); Prothrombin Time 11.3 sec (10.0-12.5)
[2024-07-20 16:06] LABS: ALT 31 U/L (4-49); AST 27 U/L (17-59); African American GFR (CKD) 16 (>60 ml/min/1.73 sqM); Albumin 3.7 g/dL (3.5-5.0); Alkaline Phosphatase 95 U/L (38-126); Anion Gap 10 mmol/L; Blood Urea Nitrogen 45 mg/dL (9-20); Calcium 7.7 mg/dL (8.4-10.2); Carbon Dioxide 31 mmol/L (22-30); Chloride 97 mmol/L (98-107); Glucose 205 mg/dL (74-99); Magnesium 1.9 mg/dL (1.6-2.3); Non-African American GFR(CKD) 14 (>60 ml/min/1.73 sqM); Potassium 4.1 mmol/L (3.5-5.1); Sodium 138 mmol/L (137-145); Total Bilirubin 0.7 mg/dL (0.2-1.3); Total Protein 6.1 g/dL (6.3-8.2)
--- NOTE | 2024-07-20 16:17 | XR ---
EXAMINATION TYPE: XR chest 2V DATE OF EXAM: 07/20/2024 3:45 PM COMPARISON: 07/12/2024 CLINICAL INDICATION: Male, 58 years old with history of Chest Pain, , TECHNIQUE: AP and lateral views FINDINGS: Low lung volumes and lordotic positioning limits assessment. Heart is normal in size. Hazy densities relating to body habitus. No marly consolidation or pleural effusion. IMPRESSION: Hypoventilatory changes. No definite acute process. [facility], Workstation: [email or web address], 07/20/2024 4:14 PM
[2024-07-20 16:52] LABS: Anisocytosis Slight; Basophils % (A) 0 %; Eosinophils # (A) 0.1 k/uL (0-0.7); Eosinophils % (A) 2 %; HCT 25.9 % (39.0-53.0); HGB 8.7 gm/dL (13.0-17.5); Lymphocytes % (A) 18 %; MCHC 33.6 g/dL (31.0-37.0); MCV 92.3 fL (80.0-100.0); Mean Platelet Volume 7.7; Monocytes # (A) 0.5 k/uL (0-1.0); Monocytes % (A) 8 %; Neutrophils % (A) 70 %; Platelet Count 186 k/uL (150-450); Poikilocytosis Slight; RDW 17.4 % (11.5-15.5); WBC 5.8 k/uL (3.8-10.6)
[2024-07-20] MEDS: MORPHINE SULFATE 4 MG/ML SYRINGE IVP STA (17:03)
[2024-07-20] MEDS: LIDOCAINE 4% PATCH TOPICAL ONE (17:34)
[2024-07-20 20:53] LABS: Appearance,Urine Clear (Clear); Bilirubin,Urine Negative (Negative); Blood,Urine Negative (Negative); Color,Urine Yellow; Glucose,Urine (UA) Negative (Negative); Ketones,Urine Negative (Negative); Leukocyte Esterase,Urine Negative (Negative); Mucus,Urine Rare /hpf; Nitrite,Urine Negative (Negative); PH, Urine 7.5 (5.0-8.0); Protein,Urine 1+ (Negative); RBC,Urine 1 /hpf (0-5); Specific Gravity,Urine 1.015 (1.001-1.035); Squamous Epithelial Cell,Urine <1 /hpf (0-4); Urobilinogen,Urine <2.0 mg/dL (<2.0); WBC,Urine 4 /hpf (0-5)
--- NOTE | 2024-07-20 21:29 | ED ---
General Adult HPI - General Chief complaint: Chest Pain Stated complaint: chest pain Time Seen by Provider: 07/20/24 21:23 Source: patient, EMS, RN notes reviewed, old records reviewed Mode of arrival: EMS Limitations: no limitations - History of Present Illness Initial comments: Patient is a 58-year-old male who presents emerged department complaint of chest pain. Patient has a history of chronic chest pain as well as CAD. Describes the pain is over the right side of his chest with radiation towards his right shoulder. States he has been in physical therapy lately as well. Symptoms have been ongoing for multiple days. Slightly worse this morning at 3 AM. Is here frequently for similar complaints. Presents for further evaluation. Is ESRD on hemodialysis however has not missed any runs of dialysis. - Related Data Home Medications Medication Instructions Recorded Confirmed Pantoprazole [Protonix] 40 mg PO BID 11/05/17 07/12/24 Tamsulosin [Flomax] 0.4 mg PO BID 11/05/17 07/12/24 Citalopram Hydrobromide [CeleXA] 20 mg PO DAILY 12/12/18 07/12/24 allopurinoL [Zyloprim] 100 mg PO DAILY 04/05/19 07/12/24 Atorvastatin [Lipitor] 80 mg PO HS 12/30/19 07/12/24 Citalopram Hydrobromide [CeleXA] 40 mg PO DAILY 06/29/20 07/12/24 Folic Acid/Vit B Complex and C 0.8 mg PO DAILY 05/05/23 07/12/24 [Nephro-Cirilo Tablet] Losartan [Cozaar] 25 mg PO DAILY 09/19/23 07/12/24 Metoprolol Succinate (ER) [Toprol 50 mg PO DAILY 09/19/23 07/12/24 XL] Furosemide [Lasix] 80 mg PO DAILY 10/16/23 07/12/24 Nitroglycerin Sl Tabs [Nitrostat] 0.4 mg SL Q5M PRN 10/16/23 07/12/24 hydrALAZINE HCL [Apresoline] 50 mg PO TID 04/12/24 07/12/24 Calcium Carbonate [Tums] 500 mg PO TID 06/16/24 07/12/24 Clopidogrel [Plavix] 75 mg PO DAILY 06/16/24 07/12/24 Aspirin 81 mg PO DAILY 06/20/24 07/12/24 Insulin Glargine,Hum.rec.anlog 10 units SQ DAILY 07/12/24 07/12/24 [Lantus Solostar Pen] Insulin Lispro [humaLOG Kwikpen] 5 unit SQ ACHS 07/12/24 07/12/24 Previous Rx's Medication Instructions Recorded Ranolazine [Ranexa] 500 mg PO Q12HR #60 tab 09/21/23 Loratadine [Claritin] 10 mg PO DAILY #30 tab 06/24/24 Oxymetazoline 0.05% Nasl [place] 2 spray NASAL BID PRN #1 dispenser 06/24/24 [Afrin 0.05% Nasal [place]] Isosorbide Mononitrate ER [Imdur] 30 mg PO DAILY #90 tab 07/01/24 Allergies Allergy/AdvReac Type Severity Reaction Status Date / Time hydromorphone AdvReac Confusion Verified 07/20/24 14:21 Iodinated Contrast Media AdvReac Nausea & Verified 07/20/24 14:21 [Iodinated Contrast- Oral Vomiting and IV Dye] sucralfate AdvReac Nausea & Verified 07/20/24 14:21 Vomiting Review of Systems ROS Statement: Those systems with pertinent positive or pertinent negative responses have been documented in the HPI. Review of Systems: CONST: Denies fever EYES: Denies blurry vision ENT: Denies nasal congestion C/V: Endorses chest pain RESP: Denies shortness of breath GI: Denies abdominal pain : Denies dysuria SKIN: Denies rash. MSK: Denies joint pain. NEURO: Denies headache ROS Other: All systems not noted in ROS Statement are negative. Past Medical History Past Medical History: Coronary Artery Disease (CAD), Chest Pain / Angina, CV A/TIA, Diabetes Mellitus, Eye Disorder, GERD/Reflux, Hearing Disorder / Deafness, Hyperlipidemia, Hypertension, Myocardial Infarction (RI), Prostate Disorder, Renal Disease, Rheumatoid Arthritis (RA) Additional Past Medical History / Comment(s): RI X2 in 2014 and 02/2023., 02 3L/NC., Hx stroke Apr 2017. , hx tia's ., left side weakness., Migranes., Diabetic neuropathy arms and legs, tremors off and on, circulation problems, uses quad cane and wheelchair., Kidney disease with dialysis [facility]. Hx Pancreatitis., Legally blind, some trouble hearing. Enlarged prostate, trouble urinating. , hx of recent uti's., anemia., constipation Last Myocardial Infarction Date:: 02/2023 History of Any Multi-Drug Resistant Organisms: None Reported Past Surgical History: Cholecystectomy, Heart Catheterization, Heart Catheterization With Stent, Heart Catheterization With Stent, Hernia Repair, Prostate Surgery Additional Past Surgical History / Comment(s): Dialysis Port Placed - 03/14/23, HIATAL HERNIA REPAIR - 01/23/21., states hx 5 heart caths with 5 stents. Past Anesthesia/Blood Transfusion Reactions: No Reported Reaction Additional Past Anesthesia/Blood Transfusion Reaction / Comment(s): . Date of Last Stent Placement:: 05/07/23 Past Psychological History: Anxiety, Depression Smoking Status: Never smoker Past Alcohol Use History: None Reported Past Drug Use History: None Reported - Past Family History Mother Family Medical History: CVA/TIA, Diabetes Mellitus, Hypertension Additional Family Medical History / Comment(s): Parkinson's. Father Family Medical History: Myocardial Infarction (RI) Additional Family Medical History / Comment(s): Father of a RI in his 50s. General Exam - General Exam Comments Initial Comments: General: Appears in no acute distress. HEAD: Normal with no signs of head trauma. EYES: PERRLA, EOMI, conjunctiva normal, no discharge. ENT: Hearing grossly intact, normal oropharynx. RESPIRATORY: Clear breath sounds bilaterally. No wheezes, rales, or rhonchi. C/V: Regular rate and rhythm. S1 and S2 auscultated, no edema, peripheral pulses 2+ and intact throughout. Patient has chest wall pain on palpation over the right chest wall. Worse with movements. ABD: Abd is soft, nontender, nondistended EXT: Normal range of motion, no obvious deformity SKIN: No rashes or lesions observed on exposed skin. NEURO: Alert and oriented x 4. Limitations: no limitations Course Vital Signs 07/20/24 07/20/24 07/20/24 14:14 15:16 16:03 Temperature 97.7 F Pulse Rate 66 64 64 Respiratory 18 16 16 Rate Blood Pressure 117/60 93/54 114/58 O2 Sat by Pulse 99 97 97 Oximetry 07/20/24 17:30 Temperature Pulse Rate 65 Respiratory 16 Rate Blood Pressure 127/64 O2 Sat by Pulse 97 Oximetry Medical Decision Making - Medical Decision Making Was pt. sent in by a medical professional or institution (, RADHA, COMPUTED TOMOGRAPHY TECHNICIAN, urgent care, hospital, or usp...) When possible be specific @ -No Did you speak to anyone other than the patient for history (EMS, parent, family, police, friend...)? What history was obtained from this source @ -No Did you review nursing and triage notes (agree or disagree)? Why? @ -I reviewed and agree with nursing and triage notes Were old charts reviewed (outside hosp., previous admission, EMS record, old EKG, old radiological studies, urgent care reports/EKG's, usp records)? Report findings @ -Agree to prior EKGs from visit in June 2024 with no dynamic changes on today's EKG. Differential Diagnosis (chest pain, altered mental status, abdominal pain women, abdominal pain men, vaginal bleeding, weakness, fever, dyspnea, syncope, headache, dizziness, GI bleed, back pain, seizure, CVA, palpatations, mental h ealth, musculoskeletal)? @ -Differential Chest Pain: Stable Angina, Unstable Angina, STEMI, NSTEMI Aortic Dissection, Pneumothorax, Musculoskeletal, Esophageal Spasm GERD, Cholecystitis, Pancreatitis, Zoster, this is not meant to be an all-inclusive list. EKG interpreted by me (3pts min.). @ -As above X-rays interpreted by me (1pt min.). @ -Chest x-ray reveals no obvious acute cardiopulmonary process. CT interpreted by me (1pt min.). @ -None done U/S interpreted by me (1pt. min.). @ -None done What testing was considered but not performed or refused? (CT, X-rays, U/S, labs)? Why? @ -None What meds were considered but not given or refused? Why? @ -None Did you discuss the management of the patient with other professionals (professionals i.e. RADHA Moya, COMPUTED TOMOGRAPHY TECHNICIAN, lab, RT, psych nurse, social problems specialist, library circulation clerk, teacher, senior grants officer, case therapist)? Give summary @ -Discussed with Dr. Broderick who, is in agreement plan for 2 troponins and discharge. Can follow-up with him in the office. Was smoking cessation discussed for >3mins.? @ -No Was critical care preformed (if so, how long)? @ -No Were there social determinants of health that impacted care today? How? (Homelessness, low income, unemployed, alcoholism, drug addiction, transportation, low edu. Level, literacy, decrease access to med. care, usp, rehab)? @ -No Was there de-escalation of care discussed even if they declined (Discuss DNR or withdrawal of care, Hospice)? DNR status @ -No What co-morbidities impacted this encounter? (DM, HTN, Smoking, COPD, CAD, Cancer, CVA, ARF, Chemo, Hep., AIDS, mental health diagnosis, sleep apnea, morbid obesity)? @ -None Was patient admitted / discharged? Hospital course, mention meds given and route, prescriptions, significant lab abnormalities, going to OR and other pertinent info. @ -Patient presents emergency department complaining of chest pain. Has some chronic chest pain however this seems to be more musculoskeletal chest pain. Is not his typical left-sided chest pain but rather chest wall pain on the right side. Has been going to physical therapy and lately. Has been present for a few days however worse today. No other complaints. Patient will be given anal gesia medications. Attempt with nitro prior to arrival which did not improve patient's chest pain. He was given a small fluid bolus. Vitals are within acceptable limits. EKG shows no signs of acute ischemia. Chest x-ray unremarkable. Labs remarkable for chronic anemia and is stable. Elevated BUN and creatinine in the setting of ESRD and has been at baseline. Troponin is undetectable. After the patient. Pain is improved. I did order morphine however it was not provide his pain resolved on its own. We did discuss and he was in agreement that is likely chest wall pain. I spoke with his PCP, Dr. Broderick who was also in agreement and requested to troponins and discharged home with follow-up with him. He was in agreement this plan. We also obtain a urinalysis. Urinalysis returned unremarkable. Repeat troponin undetectable. Patient be discharged home at this time. He remains asymptomatic. Patient was in agreement this plan. I instructed the patient to follow up with their PCP in the next 1-3 days. I explained that the patient should return to the emergency department if they experience any worsening symptoms. Strict return precautions were discussed with the patient. The patient expressed understanding of these instructions. I answered all questions that the patient had. The patient was discharged home in good condition with their prescriptions and follow up information. Undiagnosed new problem with uncertain prognosis? @ -No Drug Therapy requiring intensive monitoring for toxicity (Heparin, Nitro, Insulin, Cardizem)? @ -No Were any procedures done? @ -No Diagnosis/symptom? @ -Chest wall pain Acute, or Chronic, or Acute on Chronic? @ -Acute Uncomplicated (without systemic symptoms) or Complicated (systemic symptoms)? @ -uncomplicated Side effects of treatment? @ -No Exacerbation, Progression, or Severe Exacerbation? @ -No Poses a threat to life or bodily function? How? (Chest pain, [place], RI, pneumonia, PE, COPD, DKA, ARF, appy, cholecystitis, CVA, Diverticulitis, Homicidal, Suicidal, threat to staff... and all critical care pts) @ -Unlikely at this time - Lab Data Result diagrams: 07/20/24 15:13 07/20/24 15:13 Lab Results 07/20/24 07/20/24 07/20/24 Range/Units 15:13 15:13 15:13 WBC 5.8 (3.8-10.6) k/uL RBC 2.80 L (4.30-5.90) m/uL Hgb 8.7 L (13.0-17.5) gm/dL Hct 25.9 L (39.0-53.0) % MCV 92.3 (80.0-100.0) fL MCH 31.0 (25.0-35.0) pg MCHC 33.6 (31.0-37.0) g/dL RDW 17.4 H (11.5-15.5) % Plt Count 186 (150-450) k/uL MPV 7.7 Neutrophils % 70 % Lymphocytes % 18 % Monocytes % 8 % Eosinophils % 2 % Basophils % 0 % Neutrophils # 4.0 (1.3-7.7) k/uL Lymphocytes # 1.0 (1.0-4.8) k/uL Monocytes # 0.5 (0-1.0) k/uL Eosinophils # 0.1 (0-0.7) k/uL Basophils # 0.0 (0-0.2) k/uL Poikilocytosis Slight Anisocytosis Slight PT 11.3 (10.0-12.5) sec INR 1.0 (<1.2) APTT 27.5 (22.0-30.0) sec Sodium 138 (137-145) mmol/L Potassium 4.1 (3.5-5.1) mmol/L Chloride 97 L (98-107) mmol/L Carbon Dioxide 31 H (22-30) mmol/L Anion Gap 10 mmol/L BUN 45 H (9-20) mg/dL Creatinine 4.43 H (0.66-1.25) mg/dL Est GFR (CKD-EPI)AfAm 16 (>60 ml/min/1.73 sqM) Est GFR (CKD-EPI)NonAf 14 (>60 ml/min/1.73 sqM) Glucose 205 H (74-99) mg/dL Calcium 7.7 L (8.4-10.2) mg/dL Magnesium 1.9 (1.6-2.3) mg/dL Total Bilirubin 0.7 (0.2-1.3) mg/dL AST 27 (17-59) U/L ALT 31 (4-49) U/L Alkaline Phosphatase 95 (38-126) U/L Troponin I (0.000-0.034) ng/mL Total Protein 6.1 L (6.3-8.2) g/dL Albumin 3.7 (3.5-5.0) g/dL Urine Color Urine Appearance (Clear) Urine pH (5.0-8.0) Ur Specific [place] (1.001-1.035) Urine Protein (Negative) Urine Glucose (UA) (Negative) Urine Ketones (Negative) Urine Blood (Negative) Urine Nitrite (Negative) Urine Bilirubin (Negative) Urine Urobilinogen (<2.0) mg/dL Ur Leukocyte Esterase (Negative) Urine RBC (0-5) /hpf Urine WBC (0-5) /hpf Ur Squamous Epith Cells (0-4) /hpf Urine Mucus (None) /hpf 07/20/24 07/20/24 07/20/24 Range/Units 15:13 18:28 20:02 WBC (3.8-10.6) k/uL RBC (4.30-5.90) m/uL Hgb (13.0-17.5) gm/dL Hct (39.0-53.0) % MCV (80.0-100.0) fL MCH (25.0-35.0) pg MCHC (31.0-37.0) g/dL RDW (11.5-15.5) % Plt Count (150-450) k/uL MPV Neutrophils % % Lymphocytes % % Monocytes % % Eosinophils % % Basophils % % Neutrophils # (1.3-7.7) k/uL Lymphocytes # (1.0-4.8) k/uL Monocytes # (0-1.0) k/uL Eosinophils # (0-0.7) k/uL Basophils # (0-0.2) k/uL Poikilocytosis Anisocytosis PT (10.0-12.5) sec INR (<1.2) APTT (22.0-30.0) sec Sodium (137-145) mmol/L Potassium (3.5-5.1) mmol/L Chloride (98-107) mmol/L Carbon Dioxide (22-30) mmol/L Anion Gap mmol/L BUN (9-20) mg/dL Creatinine (0.66-1.25) mg/dL Est GFR (CKD-EPI)AfAm (>60 ml/min/1.73 sqM) Est GFR (CKD-EPI)NonAf (>60 ml/min/1.73 sqM) Glucose (74-99) mg/dL Calcium (8.4-10.2) mg/dL Magnesium (1.6-2.3) mg/dL Total Bilirubin (0.2-1.3) mg/dL AST (17-59) U/L ALT (4-49) U/L Alkaline Phosphatase (38-126) U/L Troponin I <0.012 <0.012 (0.000-0.034) ng/mL Total Protein (6.3-8.2) g/dL Albumin (3.5-5.0) g/dL Urine Color Yellow Urine Appearance Clear (Clear) Urine pH 7.5 (5.0-8.0) Ur Specific [place] 1.015 (1.001-1.035) Urine Protein 1+ H (Negative) Urine Glucose (UA) Negative (Negative) Urine Ketones Negative (Negative) Urine Blood Negative (Negative) Urine Nitrite Negative (Negative) Urine Bilirubin Negative (Negative) Urine Urobilinogen <2.0 (<2.0) mg/dL Ur Leukocyte Esterase Negative (Negative) Urine RBC 1 (0-5) /hpf Urine WBC 4 (0-5) /hpf Ur Squamous Epith Cells <1 (0-4) /hpf Urine Mucus Rare H (None) /hpf - EKG Data -: EKG Interpreted by Me EKG Comments: 12-lead Electrocardiogram Interpretation Note EKG was reviewed and interpreted by myself. 12-lead ECG performed at 1431 is interpreted by me as revealing normal sinus rhythm at a rate of 66 beats per minute. [place]ard is normal. NE interval is 190 ms, QRS duration is 118 ms, QTc is 487 ms.. There were no ST or T wave abnormalities to suggest myocardial ischemia or injury. R wave progression across the precordium was satisfactory. By my interpretation this EKG is non-diagnostic for acute ischemia. Disposition Clinical Impression: Chest wall pain Disposition: HOME SELF-CARE Condition: Good Instructions (If sedation given, give patient instructions): Chest Wall Pain (ED) Is patient prescribed a controlled substance at d/c from ED?: No Referrals: Diana Broderick MD [Primary Care Provider] - 1-2 days Time of Disposition: 21:28
[2024-07-20 21:47] VITALS: BP 125/65; PULSE 62; TEMP 98.3
== END 2024-07-20 21:48 | disposition home or self-care (01) ==
LOC: EC 14:10
DX: R07.89 Other chest pain (principal); Z88.5 Allergy status to narcotic agent; Z91.041 Radiographic dye allergy status; Z88.8 Allergy status to other drugs, medicaments and biological substances
CPT/HCPCS: 36415; 71046; 80053; 81001; 83735; 84484; 85025; 85610; 85730; 93005; 96360; 99285

== ENCOUNTER 2024-08-09 10:08 | Observation (INO) | payer MEDICARE, OTHER ==
--- NOTE | 2024-08-09 11:17 | ED ---
General Adult HPI - General Chief complaint: Nausea/Vomiting/Diarrhea Stated complaint: Vomiting Time Seen by Provider: 08/09/24 10:19 Source: patient, RN/MD, RN notes reviewed Mode of arrival: wheelchair Limitations: no limitations - History of Present Illness Initial comments: Patient is a 58-year-old male present to the emergency department with concerns with nausea and vomiting. Onset of symptoms was a couple of days ago. Patient has vomiting around 3 times or so per day. Patient states usually when he tries to eat. Patient is also having some abdominal discomfort and constipation, last bowel movement around 3 days ago. No fever. No congestion or upper respiratory symptoms. Abdominal discomfort is only mild. - Related Data Home Medications Medication Instructions Recorded Confirmed Pantoprazole [Protonix] 40 mg PO BID 11/05/17 07/12/24 Tamsulosin [Flomax] 0.4 mg PO BID 11/05/17 07/12/24 Citalopram Hydrobromide [CeleXA] 20 mg PO DAILY 12/12/18 07/12/24 allopurinoL [Zyloprim] 100 mg PO DAILY 04/05/19 07/12/24 Atorvastatin [Lipitor] 80 mg PO HS 12/30/19 07/12/24 Citalopram Hydrobromide [CeleXA] 40 mg PO DAILY 06/29/20 07/12/24 Folic Acid/Vit B Complex and C 0.8 mg PO DAILY 05/05/23 07/12/24 [Nephro-Cirilo Tablet] Losartan [Cozaar] 25 mg PO DAILY 09/19/23 07/12/24 Metoprolol Succinate (ER) [Toprol 50 mg PO DAILY 09/19/23 07/12/24 XL] Furosemide [Lasix] 80 mg PO DAILY 10/16/23 07/12/24 Nitroglycerin Sl Tabs [Nitrostat] 0.4 mg SL Q5M PRN 10/16/23 07/12/24 hydrALAZINE HCL [Apresoline] 50 mg PO TID 04/12/24 07/12/24 Calcium Carbonate [Tums] 500 mg PO TID 06/16/24 07/12/24 Clopidogrel [Plavix] 75 mg PO DAILY 06/16/24 07/12/24 Aspirin 81 mg PO DAILY 06/20/24 07/12/24 Insulin Glargine,Hum.rec.anlog 10 units SQ DAILY 07/12/24 07/12/24 [Lantus Solostar Pen] Insulin Lispro [humaLOG Kwikpen] 5 unit SQ ACHS 07/12/24 07/12/24 Previous Rx's Medication Instructions Recorded Ranolazine [Ranexa] 500 mg PO Q12HR #60 tab 09/21/23 Loratadine [Claritin] 10 mg PO DAILY #30 tab 06/24/24 Oxymetazoline 0.05% Nasl [place] 2 spray NASAL BID PRN #1 dispenser 06/24/24 [Afrin 0.05% Nasal [place]] Isosorbide Mononitrate ER [Imdur] 30 mg PO DAILY #90 tab 07/01/24 Allergies Allergy/AdvReac Type Severity Reaction Status Date / Time hydromorphone AdvReac Confusion Verified 08/09/24 10:47 Iodinated Contrast Media AdvReac Nausea & Verified 08/09/24 10:47 [Iodinated Contrast- Oral Vomiting and IV Dye] sucralfate AdvReac Nausea & Verified 08/09/24 10:47 Vomiting Review of Systems ROS Statement: Those systems with pertinent positive or pertinent negative responses have been documented in the HPI. ROS Other: All systems not noted in ROS Statement are negative. Constitutional: Denies: fever Eyes: Denies: eye pain ENT: Denies: ear pain Respiratory: Denies: cough, dyspnea Cardiovascular: Denies: chest pain Endocrine: Denies: fatigue Gastrointestinal: Reports: as per HPI, nausea, vomiting, constipation Genitourinary: Denies: dysuria Musculoskeletal: Denies: back pain Skin: Denies: lesions Past Medical History Past Medical History: Coronary Artery Disease (CAD), Chest Pain / Angina, CVA/TIA, Diabetes Mellitus, Eye Disorder, GERD/Reflux, Hearing Disorder / Deafness, Hyperlipidemia, Hypertension, Myocardial Infarction ([place]), Prostate Disorder, Renal Disease, Rheumatoid Arthritis (RA) Additional Past Medical History / Comment(s): [place] X2 in 2014 and 02/2023., 02 3L/NC., Hx stroke Apr 2017. , hx tia's ., left side weakness., Migranes., Diabetic neuropathy arms and legs, tremors off and on, circulation problems, uses quad cane and wheelchair., Kidney disease with dialysis TUTHSA. Hx Pancreatitis., Legally blind, some trouble hearing. Enlarged prostate, trouble urinating. , hx of recent uti's., anemia., constipation Last Myocardial Infarction Date:: 02/2023 History of Any Multi-Drug Resistant Organisms: None Reported Past Surgical History: Cholecystectomy, Heart Catheterization, Heart Catheteri zation With Stent, Heart Catheterization With Stent, Hernia Repair, Prostate Surgery Additional Past Surgical History / Comment(s): Dialysis Port Placed - 03/14/23, HIATAL HERNIA REPAIR - 01/23/21., states hx 5 heart caths with 5 stents. Past Anesthesia/Blood Transfusion Reactions: No Reported Reaction Additional Past Anesthesia/Blood Transfusion Reaction / Comment(s): . Date of Last Stent Placement:: 05/07/23 Past Psychological History: Anxiety, Depression Smoking Status: Never smoker Past Alcohol Use History: None Reported Past Drug Use History: None Reported - Past Family History Mother Family Medical History: CVA/TIA, Diabetes Mellitus, Hypertension Additional Family Medical History / Comment(s): Parkinson's. Father Family Medical History: Myocardial Infarction ([place]) Additional Family Medical History / Comment(s): Father of a [place] in his 50s. General Exam Limitations: no limitations General appearance: alert, in no apparent distress Head exam: Present: normocephalic Eye exam: Present: normal appearance Neck exam: Present: normal inspection Respiratory exam: Present: normal lung sounds bilaterally Cardiovascular Exam: Present: regular rate, normal rhythm GI/Abdominal exam: Present: soft. Absent: tenderness, pulsatile mass Extremities exam: Present: normal inspection. Absent: pedal edema, calf tende rness Neurological exam: Present: alert Psychiatric exam: Present: normal affect, normal mood Skin exam: Present: normal color Course Vital Signs 08/09/24 08/09/24 10:44 12:05 Temperature 97.6 F Pulse Rate 73 66 Respiratory 18 18 Rate Blood Pressure 122/85 186/84 O2 Sat by Pulse 99 100 Oximetry Procedures - Procedures Initial comment: Fecal disimpaction with mild results. Enema to follow Medical Decision Making - Medical Decision Making Was pt. sent in by a medical professional or institution (, PA, DATA MANAGEMENT CONSULTANT, urgent care, hospital, or custodial...) When possible be specific @ -Patient was sent in by Dr. Love her Did you speak to anyone other than the patient for history (EMS, parent, family, police, friend...)? What history was obtained from this source @ -I did speak with Dr. Love her regarding patient symptoms prior to patient arrival Did you review nursing and triage notes (agree or disagree)? Why? @ -I reviewed and agree with nursing and triage notes Were old charts reviewed (outside hosp., previous admission, EMS record, old EKG, old radiological studies, urgent care reports/EKG's, custodial records)? Report findings @ -No old charts were reviewed Differential Diagnosis (chest pain, altered mental status, abdominal pain women, abdominal pain men, vaginal bleeding, weakness, fever, dyspnea, syncope, h eadache, dizziness, GI bleed, back pain, seizure, CVA, palpatations, mental health, musculoskeletal)? @ -Differential Abdominal Pain Men: Appendicitis, cholecystitis, diverticulosis, ischemic bowel, pancreatitis, hepatitis, UTI, gastroenteritis, AAA, incarcerated hernia, bowel obstruction, constipation, inflammatory bowel, hepatitis, peptic ulcer disease, splenic infarction, perforated viscus, testicular torsion, this is not meant to be an all-inclusive list EKG interpreted by me (3pts min.). @ -As above X-rays interpreted by me (1pt min.). @ -None done CT interpreted by me (1pt min.). @ -CT scan of the abdomen pelvis shows large fecal bolus U/S interpreted by me (1pt. min.). @ -None done What testing was considered but not performed or refused? (CT, X-rays, U/S, labs)? Why? @ -None What meds were considered but not given or refused? Why? @ -None Did you discuss the management of the patient with other professionals (professionals i.e. , PA, DATA MANAGEMENT CONSULTANT, lab, RT, psych nurse, social media executive, water regulator and valve repairer, teacher, loan servicing officer, window caser)? Give summary @ -Case again discussed with Dr. Baez who will keep this patient for observation Was smoking cessation discussed for >3mins.? @ -No Was critical care preformed (if so, how long)? @ -No Were there social determinants of health that impacted care today? How? (Homelessness, low income, unemployed, alcoholism, drug addiction, t ransportation, low edu. Level, literacy, decrease access to med. care, residential, rehab)? @ -No Was there de-escalation of care discussed even if they declined (Discuss DNR or withdrawal of care, Hospice)? DNR status @ -No What co-morbidities impacted this encounter? (DM, HTN, Smoking, COPD, CAD, Cance r, CVA, ARF, Chemo, Hep., AIDS, mental health diagnosis, sleep apnea, morbid obesity)? @ -None Was patient admitted / discharged? Hospital course, mention meds given and route, prescriptions, significant lab abnormalities, going to OR and other pertinent info. @ -Patient presents with nausea vomiting and abdominal discomfort and concerns for constipation and rectal pain. Patient does have fecal bolus. Only able to remove a small amount with digital disimpaction. First enema without improvem ent. Patient will be admitted for further enemas. Patient updated on plan. Admission orders written. Undiagnosed new problem with uncertain prognosis? @ -No Drug Therapy requiring intensive monitoring for toxicity (Heparin, Nitro, Insulin, Cardizem)? @ -No Were any procedures done? @ -Disimpaction with minimal improvement Diagnosis/symptom? @ -Constipation, rectal impaction Acute, or Chronic, or Acute on Chronic? @ -Acute, acute Uncomplicated (without systemic symptoms) or Complicated (systemic symptoms)? @ -Default Side effects of treatment? @ -No Exacerbation, Progression, or Severe Exacerbation? @ -No Poses a threat to life or bodily function? How? (Chest pain, [place], [place], pneumonia, PE, COPD, DKA, ARF, appy, cholecystitis, CVA, Diverticulitis, Homicidal, Suicidal, threat to staff... and all critical care pts) @ -No - Lab Data Result diagrams: 08/09/24 10:19 08/09/24 10:19 Lab Results 08/09/24 08/09/24 08/09/24 Range/Units 10:19 10:19 10:19 WBC 6.3 (3.8-10.6) k/uL RBC 2.56 L (4.30-5.90) m/uL Hgb 7.8 L (13.0-17.5) gm/dL Hct 23.5 L (39.0-53.0) % MCV 91.8 (80.0-100.0) fL MCH 30.7 (25.0-35.0) pg MCHC 33.4 (31.0-37.0) g/dL RDW 14.8 (11.5-15.5) % Plt Count 129 L (150-450) k/uL MPV 7.1 Neutrophils % 79 % Lymphocytes % 10 % Monocytes % 7 % Eosinophils % 2 % Basophils % 0 % Neutrophils # 5.0 (1.3-7.7) k/uL Lymphocytes # 0.6 L (1.0-4.8) k/uL Monocytes # 0.4 (0-1.0) k/uL Eosinophils # 0.2 (0-0.7) k/uL Basophils # 0.0 (0-0.2) k/uL PT 11.8 (10.0-12.5) sec INR 1.1 (<1.2) APTT 26.9 (22.0-30.0) sec Sodium 138 (137-145) mmol/L Potassium 3.9 (3.5-5.1) mmol/L Chloride 101 (98-107) mmol/L Carbon Dioxide 23 (22-30) mmol/L Anion Gap 14 mmol/L BUN 50 H (9-20) mg/dL Creatinine 4.46 H (0.66-1.25) mg/dL Est GFR (CKD-EPI)AfAm 16 (>60 ml/min/1.73 sqM) Est GFR (CKD-EPI)NonAf 14 (>60 ml/min/1.73 sqM) Glucose 187 H (74-99) mg/dL Calcium 8.7 (8.4-10.2) mg/dL Total Bilirubin 0.7 (0.2-1.3) mg/dL AST 27 (17-59) U/L ALT 33 (4-49) U/L Alkaline Phosphatase 101 (38-126) U/L Total Protein 6.8 (6.3-8.2) g/dL Albumin 4.3 (3.5-5.0) g/dL Amylase 79 (30-110) U/L Lipase 130 (23-300) U/L Disposition Clinical Impression: Constipation Disposition: ADMITTED IP TO THIS HOSP Is patient prescribed a controlled substance at d/c from ED?: No Referrals: Diana Broderick MD [Primary Care Provider] - 1-2 days Time of Disposition: 14:46
--- NOTE | 2024-08-09 11:24 | CT ---
EXAMINATION TYPE: CT abdomen pelvis wo con CT DLP: 593.6 mGycm, Automated exposure control for dose reduction was used. DATE OF EXAM: 08/09/2024 11:08 AM COMPARISON: CT abdomen pelvis 12/08/2023 CLINICAL INDICATION:Male, 58 years old with history of abdominal pain; Abdominal pain, no bowel movem ent x 3 days TECHNIQUE: Standard CT of the abdomen and pelvis without IV or oral contrast. Lack of IV or oral co ntrast limits evaluation of solid and hollow organ viscera. Coronal and sagittal reformats were perfo rmed. FINDINGS: LOWER CHEST: Visualized lung bases are clear. Mild cardiomegaly. Coronary artery calcification. Bilat eral gynecomastia. ABDOMEN LIVER: Unremarkable noncontrast appearance GALLBLADDER AND BILE DUCTS: The gallbladder is surgically absent. No biliary ductal dilatation. PANCREAS: Unremarkable noncontrast appearance SPLEEN: Unremarkable noncontrast appearance ADRENAL GLANDS: Unremarkable noncontrast appearance. KIDNEYS AND URETERS: No evidence of hydronephrosis or renal calculus. Similar bilateral perinephric f at stranding. PELVIS BLADDER: Nondistended with Garcia catheter in place. REPRODUCTIVE: Calcification of bilateral vas deferens suggesting diabetes. ABDOMEN & PELVIS STOMACH AND BOWEL: Postsurgical changes from hiatal hernia repair with small to moderate size hiatal hernia demonstrated.Rectal fecaloma measuring up to 9.0 cm in diameter. There is some presacral fat s tranding. Mild to moderate amount of stool is present in the colon. The appendix is not visualized. N o evidence of bowel obstruction. PERITONEUM: No evidence of pneumoperitoneum. Trace free fluid in the pelvis. VASCULATURE: Mild atherosclerotic calcifications are present throughout the abdominal aorta and its b ranches. No evidence of aortic aneurysm. MUSCULOSKELETAL: No acute osseous abnormalities LYMPH NODES: No gross evidence for lymphadenopathy. SOFT TISSUE/ABDOMINAL WALL: Small fat filled umbilical hernia. IMPRESSION: 1. Rectal fecaloma with some presacral fat stranding and trace free fluid in the pelvis. Raises poss ibility of stercoral colitis. Correlate clinically. 2. Mild to moderate colonic stool burden. 3. Small to moderate size hiatal hernia with postsurgical changes from hernia repair. [facility], , 08/09/2024 11:22 AM
[2024-08-09 11:35] LABS: Basophils % (A) 0 %; Eosinophils # (A) 0.2 k/uL (0-0.7); Eosinophils % (A) 2 %; HCT 23.5 % (39.0-53.0); HGB 7.8 gm/dL (13.0-17.5); Lymphocytes # (A) 0.6 k/uL (1.0-4.8); Lymphocytes % (A) 10 %; MCH 30.7 pg (25.0-35.0); MCHC 33.4 g/dL (31.0-37.0); MCV 91.8 fL (80.0-100.0); Mean Platelet Volume 7.1; Monocytes # (A) 0.4 k/uL (0-1.0); Monocytes % (A) 7 %; Neutrophils % (A) 79 %; Platelet Count 129 k/uL (150-450); RBC 2.56 m/uL (4.30-5.90); RDW 14.8 % (11.5-15.5); WBC 6.3 k/uL (3.8-10.6)
[2024-08-09 11:44] LABS: INR 1.1 (<1.2); Partial Thromboplastin Time 26.9 sec (22.0-30.0); Prothrombin Time 11.8 sec (10.0-12.5)
[2024-08-09 11:49] LABS: ALT 33 U/L (4-49); AST 27 U/L (17-59); African American GFR (CKD) 16 (>60 ml/min/1.73 sqM); Albumin 4.3 g/dL (3.5-5.0); Alkaline Phosphatase 101 U/L (38-126); Amylase 79 U/L (30-110); Anion Gap 14 mmol/L; Blood Urea Nitrogen 50 mg/dL (9-20); Calcium 8.7 mg/dL (8.4-10.2); Carbon Dioxide 23 mmol/L (22-30); Chloride 101 mmol/L (98-107); Glucose 187 mg/dL (74-99); Lipase 130 U/L (23-300); Non-African American GFR(CKD) 14 (>60 ml/min/1.73 sqM); Potassium 3.9 mmol/L (3.5-5.1); Sodium 138 mmol/L (137-145); Total Bilirubin 0.7 mg/dL (0.2-1.3); Total Protein 6.8 g/dL (6.3-8.2)
[2024-08-09] MEDS: ONDANSETRON 4 MG/2 ML VIAL IVP STA (12:01)
[2024-08-09] MEDS: FAMOTIDINE 20 MG/2 ML VIAL IV STA (12:03)
[2024-08-09] MEDS ORDERED: NALOXONE 0.4 MG/ML 1 ML VIAL IV PRN (14:49)
[2024-08-09] MEDS: LACTULOSE 20 GM/30 ML CUP PO ONE (15:05)
[2024-08-09] MEDS: SODIUM CHLORIDE 0.9% 1,000 ML IV SCH (16:21)
[2024-08-09] MEDS ORDERED: NITROGLYCERIN SL TABS 0.4 MG TAB SUBLINGUAL PRN (17:44)
[2024-08-09] MEDS ORDERED: OXYMETAZOLINE 0.05% NASL SPRAY 1 SPRAY BOTTLE NASAL PRN (17:44)
[2024-08-09] MEDS ORDERED: prednisoLONE ACETATE 1% OPHTH DROPS 5 ML BTL BOTH EYES SCH (17:45)
[2024-08-09] MEDS ORDERED: OFLOXACIN 0.3% OPHTH DROPS 5 ML BOTTLE BOTH EYES SCH (17:45)
[2024-08-09] MEDS ORDERED: KETOROLAC 0.5% OPHTH DROPS 5 ML BTL BOTH EYES SCH (17:45)
[2024-08-09] MEDS ORDERED: HYDROcodone/APAP 5-325MG 1 EACH TAB PO PRN (17:46)
[2024-08-09] MEDS: NA PHOS,M-B/NA PHOS,DI-BA 133 ML ENEMA RECTAL PRN (17:47)
[2024-08-09 23:20] LABS: Glucose,Whole Blood 191 mg/dL (70-110)
[2024-08-09] MEDS: INSULIN DETEMIR (LEVEMIR) 100 UNIT/ML SYR SQ SCH (23:21)
[2024-08-09] MEDS: INSULIN ASPART (NovoLOG) 100 UNIT/ML VIAL SQ SCH (23:22)
[2024-08-09] MEDS: hydrALAZINE HCL 50 MG TAB PO SCH (23:23)
[2024-08-09] MEDS: CALCIUM CARBONATE 500 MG CHEWABLE PO SCH (23:23)
[2024-08-09] MEDS: TAMSULOSIN 0.4 MG CAP.ER.24H PO SCH (23:23)
[2024-08-09] MEDS: RANOLAZINE 500 MG TAB.ER.12H PO SCH (23:23)
[2024-08-09] MEDS: ATORVASTATIN 80 MG TAB PO SCH (23:24)
[2024-08-10 05:57] LABS: Glucose,Whole Blood 104 mg/dL (70-110)
[2024-08-10] MEDS: PANTOPRAZOLE 40 MG TABLET PO SCH (05:58)
[2024-08-10] MEDS: bisacodyL 10 MG SUPP RECTAL SCH (05:59)
[2024-08-10 08:48] LABS: Basophils # (A) 0.02 X 10*3/uL (0.00-0.10); Basophils % (A) 0.4 %; Eosinophils # (A) 0.23 X 10*3/uL (0.04-0.35); Eosinophils % (A) 4.3 %; HCT 21.9 % (39.6-50.0); HGB 7.1 g/dL (13.0-17.0); Lymphocytes # (A) 1.06 X 10*3/uL (0.90-5.00); Lymphocytes % (A) 19.6 %; MCH 30.1 pg (27.0-32.0); MCHC 32.4 g/dL (32.0-37.0); MCV 92.8 FL (80.0-97.0); Mean Platelet Volume 8.6 FL (9.5-12.2); Monocytes # (A) 0.61 X 10*3/uL (0.20-1.00); Monocytes % (A) 11.3 %; NRBC Per 100 WBC 0 X 10*3/uL (0.00-0.01); Neutrophils # (A) 3.48 X 10*3/uL (1.80-7.70); Neutrophils % (A) 64.2 %; Platelet Count 104 X 10*3/uL (140-440); RBC 2.36 X 10*6/uL (4.40-5.60); RDW 14.3 % (11.5-14.5); WBC 5.41 X 10*3/uL (4.50-10.00)
[2024-08-10 08:59] LABS: ALT 26 U/L (10-49); AST 22 U/L (14-35); Albumin 3.7 g/dL (3.8-4.9); Albumin/Globulin Ratio 1.76 Ratio (1.60-3.17); Alkaline Phosphatase 87 U/L (41-126); BUN/Creat Ratio 11.16 Ratio (12.00-20.00); Blood Urea Nitrogen 49.1 mg/dL (9.0-27.0); Carbon Dioxide 24.2 mmol/L (21.6-31.8); Chloride 106 mmol/L (96-109); Globulin 2.1 g/dL (1.6-3.3); Glucose 100 mg/dL (70-110); Potassium 3.6 mmol/L (3.5-5.5); Sodium 141 mmol/L (135-145); Total Bilirubin 0.3 mg/dL (0.3-1.2); Total Protein 5.8 g/dL (6.2-8.2)
[2024-08-10] MEDS ORDERED: CITALOPRAM HYDROBROMIDE 20 MG TAB PO SCH (09:00)
[2024-08-10] MEDS: FUROSEMIDE 80 MG TAB PO SCH (09:55)
[2024-08-10] MEDS: CLOPIDOGREL 75 MG TAB PO SCH (09:55)
[2024-08-10] MEDS: CITALOPRAM HYDROBROMIDE 20 MG TAB PO SCH (09:55)
[2024-08-10] MEDS: LORATADINE 10 MG TAB PO SCH (09:55)
[2024-08-10] MEDS: ISOSORBIDE MONONITRATE ER 30 MG TAB.ER.24H PO SCH (09:55)
[2024-08-10] MEDS: allopurinoL 100 MG TAB PO SCH (09:55)
[2024-08-10] MEDS: METOPROLOL SUCCINATE (ER) 50 MG TAB.ER.24H PO SCH (09:55)
[2024-08-10] MEDS: LOSARTAN 25 MG TAB PO SCH (09:55)
[2024-08-10] MEDS: ASPIRIN 81 MG PO SCH (09:55)
[2024-08-10] MEDS: FOLIC ACID-VIT B COMPLEX-VIT C 1 CAP PO SCH (09:55)
[2024-08-10] MEDS: LACTULOSE 20 GM/30 ML CUP PO SCH (11:35)
[2024-08-10 11:55] LABS: Glucose,Whole Blood 217 mg/dL (70-110)
[2024-08-10] MEDS: ONDANSETRON 4 MG/2 ML VIAL IVP PRN (12:41)
[2024-08-10 17:28] LABS: Glucose,Whole Blood 80 mg/dL (70-110)
[2024-08-10 19:38] LABS: Glucose,Whole Blood 160 mg/dL (70-110)
--- NOTE | 2024-08-10 20:30 | P.NPCON ---
History of Present Illness - Reason for Consult end stage renal disease - History of Present Illness Patient is a 58-year-old male with end-stage renal disease on hemodialysis on Thursday schedule. He is admitted to the hospital with complaints of abdominal pain discomfort and nausea. He states he has not been feeling well for past few days. He is noted to have significant constipation. No history of fever chills No history of cough Patient missed his dialysis yesterday. He will be dialyzed today. Serum potassium 3.6. No evidence of fluid overload. Past Medical History Past Medical History: Coronary Artery Disease (CAD), Chest Pain / Angina, CVA/TIA, Diabetes Mellitus, Eye Disorder, GERD/Reflux, Hearing Disorder / Deafness, Hyperlipidemia, Hypertension, Myocardial Infarction ([place]), Prostate Disorder, Renal Disease, Rheumatoid Arthritis (RA) Additional Past Medical History / Comment(s): [place] X2 in 2014 and 02/2023., 02 3L/NC., Hx stroke Apr 2017. , hx tia's ., left side weakness., Migranes., Diabetic neuropathy arms and legs, tremors off and on, circulation problems, uses quad cane and wheelchair., Kidney disease with dialysis TUTHSA. Hx Pancreatitis., Legally blind, some trouble hearing. Enlarged prostate, trouble urinating. , hx of recent uti's., anemia., constipation Last Myocardial Infarction Date:: 02/2023 History of Any Multi-Drug Resistant Organisms: None Reported Past Surgical History: Cholecystectomy, Heart Catheterization, Heart Catheterization With Stent, Heart Catheterization With Stent, Hernia Repair, Prostate Surgery Additional Past Surgical History / Comment(s): Dialysis Port Placed - 03/14/23, HIATAL HERNIA REPAIR - 01/23/21., states hx 5 heart caths with 5 stents. Past Anesthesia/Blood Transfusion Reactions: No Reported Reaction Additional Past Anesthesia/Blood Transfusion Reaction / Comment(s): . Date of Last Stent Placement:: 05/07/23 Past Psychological History: Anxiety, Depression Additional Psychological History / Comment(s): He uses a quad cane or walker to ambulate. He is legally blind. He reads minimally with magnifying glass and signs his name only now. Smoking Status: Never smoker Past Alcohol Use History: None Reported Past Drug Use History: None Reported - Past Family History Mother Family Medical History: CVA/TIA, Diabetes Mellitus, Hypertension Additional Family Medical History / Comment(s): Parkinson's. Father Family Medical History: Myocardial Infarction ([place]) Additional Family Medical History / Comment(s): Father of a NE in his 50s. Medications and Allergies Home Medications Medication Instructions Recorded Confirmed Type Pantoprazole [Protonix] 40 mg PO BID 11/05/17 08/09/24 History Tamsulosin [Flomax] 0.4 mg PO BID 11/05/17 08/09/24 History Citalopram Hydrobromide [CeleXA] 20 mg PO DAILY 12/12/18 08/09/24 History allopurinoL [Zyloprim] 100 mg PO DAILY 04/05/19 08/09/24 History Atorvastatin [Lipitor] 80 mg PO HS 12/30/19 08/09/24 History Citalopram Hydrobromide [CeleXA] 40 mg PO DAILY 06/29/20 08/09/24 History Folic Acid/Vit B Complex and C 0.8 mg PO DAILY 05/05/23 08/09/24 History [Nephro-Cirilo Tablet] Losartan [Cozaar] 25 mg PO DAILY 09/19/23 08/09/24 History Metoprolol Succinate (ER) [Toprol 50 mg PO DAILY 09/19/23 08/09/24 History XL] Ranolazine [Ranexa] 500 mg PO Q12HR #60 tab 09/21/23 08/09/24 Rx Furosemide [Lasix] 80 mg PO DAILY 10/16/23 08/09/24 History Nitroglycerin Sl Tabs [Nitrostat] 0.4 mg SL Q5M PRN 10/16/23 08/09/24 History hydrALAZINE HCL [Apresoline] 50 mg PO TID 04/12/24 08/09/24 History Calcium Carbonate [Tums] 500 mg PO TID 06/16/24 08/09/24 History Clopidogrel [Plavix] 75 mg PO DAILY 06/16/24 08/09/24 History Aspirin 81 mg PO DAILY 06/20/24 08/09/24 History Loratadine [Claritin] 10 mg PO DAILY #30 tab 06/24/24 08/09/24 Rx Oxymetazoline 0.05% Nasl [place] 2 spray NASAL BID PRN #1 dispenser 06/24/24 08/09/24 Rx [Afrin 0.05% Nasal Lipan] Isosorbide Mononitrate ER [Imdur] 30 mg PO DAILY #90 tab 07/01/24 08/09/24 Rx Insulin Glargine,Hum.rec.anlog 17 units SQ HS 07/12/24 08/09/24 History [Lantus Solostar Pen] Insulin Lispro [humaLOG Kwikpen] 9 unit SQ ACHS 07/12/24 08/09/24 History Ketorolac 0.5% Ophth Soln [Acular 1 drop BOTH EYES DIRECTED 08/09/24 08/09/24 History 0.5%] Ofloxacin 0.3% Ophth Soln [Ocuflox 1 drop BOTH EYES DIRECTED 08/09/24 08/09/24 History Ophth Soln] prednisoLONE ACETATE 1% OPHTH 1 drop BOTH EYES DIRECTED 08/09/24 08/09/24 History [Pred Forte 1%] Allergies Allergy/AdvReac Type Severity Reaction Status Date / Time hydromorphone AdvReac Confusion Verified 08/09/24 17:19 Iodinated Contrast Media AdvReac Nausea & Verified 08/09/24 17:19 [Iodinated Contrast- Oral Vomiting and IV Dye] sucralfate AdvReac Nausea & Verified 08/09/24 17:19 Vomiting Physical Exam Vitals: Vital Signs Temp Pulse Resp BP Pulse Ox 08/10/24 19:00 98 F 60 16 136/71 08/10/24 18:39 62 151/73 100 08/10/24 14:42 97.5 F L 58 L 16 154/67 100 08/10/24 13:06 15 08/10/24 09:49 15 08/10/24 07:00 97.8 F 65 16 162/68 100 08/10/24 02:41 98.2 F 67 15 125/68 98 08/09/24 21:51 98.1 F 76 15 119/75 99 Intake and Output 08/10/24 08/10/24 08/10/24 06:59 14:59 22:59 Intake Total 339 400 Output Total 420 4400 Balance -81 -4000 Intake: Oral 339 Hemodialysis 400 Output: Urine 420 Hemodialysis 2400 Hemodialysis Net Amount 2000 Other: Voiding Method Indwelling Catheter # Voids 2 1 # Bowel Movements 1 Weight 81.193 kg Patient is awake, comfortable, no acute distress. Examination of the heart S1 and S2 Examination of the lungs bilateral breath sounds are heard Abdomen is soft nontender Examination of lower extremities shows no significant edema METAL FINISHER exam grossly intact Results - Lab Results Most recent lab results Calcium 8.0 mg/dL (8.7-10.3) L 08/10/24 05:37 08/10/24 05:37 08/10/24 05:37 Assessment and Plan Assessment: 1. End-stage renal disease on hemodialysis on Thursday schedule 2. Abdominal pain from significant constipation 3. CKD mineral bone disorder 4. Coronary artery disease with history of coronary stents Plan: Hemodialysis today and again in a.m. Add lactulose for constipation. Avoid Fleet enema given underlying end-stage renal disease. Thank you for the consultation. We will continue to follow the patient with you during his hospitalization.
--- NOTE | 2024-08-11 06:08 | P.HPIM ---
History of Present Illness H&P Date: 08/10/24 Chief Complaint: Severe constipation with left side stercocolitis HISTORY OF PRESENT ILLNESS: This is a 58-year-old male with a previous medical history significant for coronary artery disease status post myocardial infarction back in 2014 and in 2022 status post PCI of the LAD as well as LCx, last stent placed was in 2022, hypertension and hypertensive cardiovascular disease, mixed hyperlipidemia, diabetes mellitus type 2, legally blind, history of ischemic c erebrovascular accident in the past with left-sided weakness, history of recurrent TIA, history of enlarged prostate, history of anxiety and depressive disorder, history of end-stage renal disease on hemodialysis Thursday and Thursday via fistula in the left upper extremity, patient was recently hospitalized at [facility] on June 16, 2024 after he was admitted for chest pain, at that time he underwent left heart catheterization bilaterally that showed normal LV diastolic and pressure, it did show a normal left main artery, LAD was normal with minimal stenosis in the midportion to the distal portion about 60%, the left circumflex artery was patent where the stents were placed, minimal irregularities, the RCA was totally occluded in the proximal portion, there was collateral from the LAD to distal RCA, patient then was discharged from the hospital, patient has been following up with me as an outpatient in a regular basis, apparently yesterday came to the office with increased abdominal pain associated with intractable nausea and vomiting not able to keep anything down, patient stated that he has not had a bowel movement in the past 7 days, patient was referred to the emergency department for evaluation, he had a CT scan of the abdomen pelvis that did show evidence of severe constipation with rectal fecaloma with stercoral colitis he was disimpacted in the emergency department, did receive 2 enema, he started to have some bowel movement, did receive Dulcolax suppository as well, he was admitted to hospital for further evaluation recommendation, he was started initially on clear liquid diet. That would be advanced to a consistent carbohydrate/renal diet. REVIEW OF SYSTEMS: Constitutional: No documented fever, no chills, no night sweats. Significant weight change. Generalized weakness, fatigue or lethargy. No daytime sleepiness. EENT: No headache. Patient is legally blind, positive for loss of vision. No loss of Hearing, no ringing in the ears, no dizziness. No nasal drainage or congestion. No epistaxis. No sore throat. Lungs: Positive for shortness of breath, no cough, no sputum production. No wheezing. Reports dyspnea with activity. Cardiovascular: Positive for chest pain, no lower extremity edema. No palpitations. No paroxysmal nocturnal dyspnea. No orthopnea. No lightheadedness or dizziness. No syncopal episodes. Abdominal: Reports abdominal pain. Positive for nausea, vomiting. No diarrhea. Positive for constipation. No bloody stool reports loss of appetite. Genitourinary: No dysuria, increased frequency, urgency. No urinary retention. Musculoskeletal: No myalgias. No muscle weakness, no gait dysfunction, no frequent falls. No back pain. No neck pain. Integumentary: No wounds, no lesions. No rash or pruritus. No unusual bruising. No change in hair or nails. Neurologic: No aphasia. No facial droop. No change in mentation. No head injury. No headache. No paralysis. Positive for paresthesia due to diabetic polyneuropathy Psychiatric: Positive for depression. No anxiety. No mood swings. Endocrine: Positive for abnormal blood sugars. Significant weight change. PAST MEDICAL HISTORY: End-stage renal disease on hemodialysis Thursday and Thursday. Hypertension and hypertensive cardiovascular disease. Mixed hyperlipidemia. Coronary artery disease status post PCI of the LAD and LCx. Diabetes mellitus type 2. CVA with left-sided weakness Recurrent TIA. Enlarged prostate with urinary retention. Anemia Anxiety and depressive disorder. Osteoarthritis. PAST SURGICAL HISTORY: Cholecystectomy. Left heart catheterization last 1 was in June 17, 2024 Left heart catheterization with PCI in 2022. Left heart catheterization 2014. Hemodialysis port placed 03/14/2023 AV fistula of the left upper extremity Hiatal hernia repair. 01/23/2021 Prostate surgery. SOCIAL HISTORY: Patient is a lifelong non-smoker, he denies any alcohol ingestion, he denies any drug use or abuse, he recently lost his after she from metastatic uterine cancer and hospice program. He is legally blind, uses a quad cane as well as a wheelchair, he does not drive at this point in time. FAMILY HISTORY: Father in his 50s from myocardial infarction had history of CVA diabetes h ypertension, mother at the age of 78 from Parkinson and had hypertension diabetes and history of CVA, patient had 3 brothers 1 at the age of 45 from OR the other 2 from suicide, 2 sisters one 70-year-old and the other one 60-year-old no major medical problem patient has no kids. PHYSICAL EXAMINATION: General: 58-year-old male laying down in bed in no apparent distress. HEENT: Head is atraumatic, normocephalic, pupils were equal round reactive to light and recommendation, extraocular muscle movement were intact, sclera nonicteric, conjunctivae were pale, mucous membranes of the mouth are somewhat dry. Neck: Supple, no JVP, normal carotid upstroke bilaterally, no lymphadenopathy. Chest: Decreased breath sounds at the bases, few rhonchi, no expiratory wheezes, no chest wall tenderness, no intercostal retractions. Heart: First heart sound is normal, second heart sounds normal systolic ejection murmur 2/6 located in the left sternal border. Abdomen: Soft, mild tenderness in the epigastric as well as left lower quadrant mildly distended, positive bowel sounds. Extremities: There is no edema no calf tenderness DP +2 bilaterally. Neurologic examination: Patient is awake alert and oriented x3, cranial nerves II-12 appear grossly intact, left-sided weakness that has been chronic. ASSESSMENT AND PLAN: 1. Severe constipation with left-sided stercoral colitis patient did have enemas in the emergency department, he was started back on lactulose, and current bowel regimen, will keep the patient hospital for another 24 hours, advance diet as tolerated. 2. End-stage renal disease on hemodialysis Thursday and Thursday. Consult nephrology for hemodialysis ordered. 3. Generalized weakness likely related to poor oral intake as well as worsening anemia. Continue treatment as in previous paragraphs. 4. Coronary artery disease status post recent heart catheterization 06/17/2024 that showed stable disease with patent stented arteries of the LAD and LCx. Continue patient on metoprolol ER 50 mg orally once every day, isosorbide mononitrate 30 mg orally once every day, hydralazine 50 mg orally 3 times every day, atorvastatin 80 mg once every day, ranolazine 500 mg orally twice every day, continue aspirin and Plavix 5. Hypertension and hypertensive cardiovascular disease. Continue patient on metoprolol ER 50 mg once every day, hydralazine 50 mg orally 3 times every day, losartan 25 mg once every day. 6. Mixed hyperlipidemia. Continue patient on atorvastatin 80 mg once every day, monitor the patient lipid panel, keep LDL 55 7. PAD. Stable at this time. Continue atorvastatin for secondary prevention. 8. Diabetes mellitus type 2 . Continue patient on Levemir 17 units at bedtime along with 9 units before each meal 3 times every day, monitor the patient blood sugar before each meal and bedtime. 9. History of CVA in the past with left-sided weakness and recurrent TIA. Continue patient on atorvastatin 80 mg once every day, continue patient on Plavix 75 mg once every day as well as aspirin 80 mg every day. 10. Enlarged prostate with urinary retention. Continue Flomax 0.4 mg orally twice every day. 11. History of gout. Continue patient on allopurinol 100 mg once every day. 12. History of anxiety and depressive disorder. Continue citalopram 60 mg orally once every day. 13. Anemia multifactorial monitor the patient hemoglobin very closely, transfuse for hemoglobin less than 7. Start the patient on Venofer 100 mg IV mag every 24 hours. 14. Observation. 15. Full code. Past Medical History Past Medical History: Coronary Artery Disease (CAD), Chest Pain / Angina, CVA/TIA, Diabetes Mellitus, Eye Disorder, GERD/Reflux, Hearing Disorder / Deafness, Hyperlipidemia, Hypertension, Myocardial Infarction (OR), Prostate Disorder, Renal Disease, Rheumatoid Arthritis (RA) Additional Past Medical History / Comment(s): OR X2 in 2014 and 02/2023., 02 3L/NC., Hx stroke Apr 2017. , hx tia's ., left side weakness., Migranes., Diabetic neuropathy arms and legs, tremors off and on, circulation problems, uses quad cane and wheelchair., Kidney disease with dialysis [facility]. Hx Pancreatitis., Legally blind, some trouble hearing. Enlarged prostate, trouble urinating. , hx of recent uti's., anemia., constipation Last Myocardial Infarction Date:: 02/2023 History of Any Multi-Drug Resistant Organisms: None Reported Past Surgical History: Cholecystectomy, Heart Catheterization, Heart Catheterization With Stent, Heart Catheterization With Stent, Hernia Repair, Prostate Surgery Additional Past Surgical History / Comment(s): Dialysis Port Placed - 03/14/23, HIATAL HERNIA REPAIR - 01/23/21., states hx 5 heart caths with 5 stents. Past Anesthesia/Blood Transfusion Reactions: No Reported Reaction Additional Past Anesthesia/Blood Transfusion Reaction / Comment(s): . Date of Last Stent Placement:: 05/07/23 Past Psychological History: Anxiety, Depression Additional Psychological History / Comment(s): He uses a quad cane or walker to ambulate. He is legally blind. He reads minimally with magnifying glass and signs his name only now. Smoking Status: Never smoker Past Alcohol Use History: None Reported Past Drug Use History: None Reported - Past Family History Mother Family Medical History: CVA/TIA, Diabetes Mellitus, Hypertension Additional Family Medical History / Comment(s): Parkinson's. Father Family Medical History: Myocardial Infarction (OR) Additional Family Medical History / Comment(s): Father of a OR in his 50s. Medications and Allergies Home Medications Medication Instructions Recorded Confirmed Type Pantoprazole [Protonix] 40 mg PO BID 11/05/17 08/09/24 History Tamsulosin [Flomax] 0.4 mg PO BID 11/05/17 08/09/24 History Citalopram Hydrobromide [CeleXA] 20 mg PO DAILY 12/12/18 08/09/24 History allopurinoL [Zyloprim] 100 mg PO DAILY 04/05/19 08/09/24 History Atorvastatin [Lipitor] 80 mg PO HS 12/30/19 08/09/24 History Citalopram Hydrobromide [CeleXA] 40 mg PO DAILY 06/29/20 08/09/24 History Folic Acid/Vit B Complex and C 0.8 mg PO DAILY 05/05/23 08/09/24 History [Nephro-Cirilo Tablet] Losartan [Cozaar] 25 mg PO DAILY 09/19/23 08/09/24 History Metoprolol Succinate (ER) [Toprol 50 mg PO DAILY 09/19/23 08/09/24 History XL] Ranolazine [Ranexa] 500 mg PO Q12HR #60 tab 09/21/23 08/09/24 Rx Furosemide [Lasix] 80 mg PO DAILY 10/16/23 08/09/24 History Nitroglycerin Sl Tabs [Nitrostat] 0.4 mg SL Q5M PRN 10/16/23 08/09/24 History hydrALAZINE HCL [Apresoline] 50 mg PO TID 04/12/24 08/09/24 History Calcium Carbonate [Tums] 500 mg PO TID 06/16/24 08/09/24 History Clopidogrel [Plavix] 75 mg PO DAILY 06/16/24 08/09/24 History Aspirin 81 mg PO DAILY 06/20/24 08/09/24 History Loratadine [Claritin] 10 mg PO DAILY #30 tab 06/24/24 08/09/24 Rx Oxymetazoline 0.05% Nasl [place] 2 spray NASAL BID PRN #1 dispenser 06/24/24 08/09/24 Rx [Afrin 0.05% Nasal [place]] Isosorbide Mononitrate ER [Imdur] 30 mg PO DAILY #90 tab 07/01/24 08/09/24 Rx Insulin Glargine,Hum.rec.anlog 17 units SQ HS 07/12/24 08/09/24 History [Lantus Solostar Pen] Insulin Lispro [humaLOG Kwikpen] 9 unit SQ ACHS 07/12/24 08/09/24 History Ketorolac 0.5% Ophth Soln [Acular 1 drop BOTH EYES DIRECTED 08/09/24 08/09/24 History 0.5%] Ofloxacin 0.3% Ophth Soln [Ocuflox 1 drop BOTH EYES DIRECTED 08/09/24 08/09/24 History Ophth Soln] prednisoLONE ACETATE 1% OPHTH 1 drop BOTH EYES DIRECTED 08/09/24 08/09/24 History [Pred Forte 1%] Allergies Allergy/AdvReac Type Severity Reaction Status Date / Time hydromorphone AdvReac Confusion Verified 08/09/24 17:19 Iodinated Contrast Media AdvReac Nausea & Verified 08/09/24 17:19 [Iodinated Contrast- Oral Vomiting and IV Dye] sucralfate AdvReac Nausea & Verified 08/09/24 17:19 Vomiting Physical Exam Vitals: Vital Signs Temp Pulse Pulse Resp BP BP Pulse Ox 08/10/24 09:49 15 08/10/24 07:00 97.8 F 65 16 162/68 100 08/10/24 02:41 98.2 F 67 15 125/68 98 08/09/24 21:51 98.1 F 76 15 119/75 99 08/09/24 20:00 76 15 08/09/24 15:44 82 16 207/99 97 08/09/24 12:05 66 18 186/84 100 08/09/24 10:44 97.6 F 73 18 122/85 99 Intake and Output 08/09/24 08/10/24 08/10/24 22:59 06:59 14:59 Other: Voiding Method Indwelling Catheter Indwelling Catheter # Voids 2 2 Weight 81.193 kg Results CBC & Chem 7: 08/10/24 05:37 08/10/24 05:37 Labs: Abnormal Lab Results - Last 24 Hours (Table) 08/09/24 08/09/24 08/09/24 Range/Units 10:19 10:19 23:19 RBC 2.56 L (4.30-5.90) m/uL Hgb 7.8 L (13.0-17.5) gm/dL Hct 23.5 L (39.0-53.0) % Plt Count 129 L (150-450) k/uL MPV (9.5-12.2) FL Lymphocytes # 0.6 L (1.0-4.8) k/uL BUN 50 H (9-20) mg/dL Creatinine 4.46 H (0.66-1.25) mg/dL Est GFR (CKD-EPI) (>=60) BUN/Creatinine Ratio (12.00-20.00) Ratio Glucose 187 H (74-99) mg/dL POC Glucose (mg/dL) 191 H (70-110) mg/dL Calcium (8.7-10.3) mg/dL Total Protein (6.2-8.2) g/dL Albumin (3.8-4.9) g/dL 08/10/24 08/10/24 Range/Units 05:37 05:37 RBC 2.36 L (4.30-5.90) m/uL Hgb 7.1 L (13.0-17.5) gm/dL Hct 21.9 L (39.0-53.0) % Plt Count 104 L (150-450) k/uL MPV 8.6 L (9.5-12.2) FL Lymphocytes # (1.0-4.8) k/uL BUN 49.1 H (9-20) mg/dL Creatinine 4.4 H (0.66-1.25) mg/dL Est GFR (CKD-EPI) 15 L (>=60) BUN/Creatinine Ratio 11.16 L (12.00-20.00) Ratio Glucose (74-99) mg/dL POC Glucose (mg/dL) (70-110) mg/dL Calcium 8.0 L (8.7-10.3) mg/dL Total Protein 5.8 L (6.2-8.2) g/dL Albumin 3.7 L (3.8-4.9) g/dL Thrombosis Risk Factor Assmnt - Choose All That Apply Any of the Below Risk Factors Present?: Yes Each Factor Represents 1 point: Age 41-60 years, Obesity (BMI >25) Other Risk Factors: No Other congenital or acquired thrombophilia - If yes, enter type in comment: No Thrombosis Risk Factor Assessment Total Risk Factor Score: 2 Thrombosis Risk Factor Assessment Level: Low Risk
[2024-08-11 06:16] LABS: Glucose,Whole Blood 110 mg/dL (70-110)
[2024-08-11 07:04] LABS: Basophils % (A) 0 %; Eosinophils # (A) 0.2 k/uL (0-0.7); Eosinophils % (A) 3 %; HCT 22.5 % (39.0-53.0); HGB 7.8 gm/dL (13.0-17.5); Lymphocytes # (A) 0.8 k/uL (1.0-4.8); Lymphocytes % (A) 15 %; MCH 30.9 pg (25.0-35.0); MCHC 34.7 g/dL (31.0-37.0); MCV 89.3 fL (80.0-100.0); Mean Platelet Volume 7.9; Monocytes # (A) 0.4 k/uL (0-1.0); Monocytes % (A) 7 %; Neutrophils % (A) 73 %; Platelet Count 127 k/uL (150-450); Poikilocytosis Slight; RBC 2.52 m/uL (4.30-5.90); RDW 14.5 % (11.5-15.5); WBC 5.4 k/uL (3.8-10.6)
[2024-08-11 07:27] LABS: ALT 27 U/L (4-49); AST 24 U/L (17-59); African American GFR (CKD) 21 (>60 ml/min/1.73 sqM); Albumin 3.6 g/dL (3.5-5.0); Albumin/Globulin Ratio 1.4; Alkaline Phosphatase 81 U/L (38-126); Anion Gap 8 mmol/L; Blood Urea Nitrogen 25 mg/dL (9-20); Calcium 8.2 mg/dL (8.4-10.2); Carbon Dioxide 30 mmol/L (22-30); Chloride 96 mmol/L (98-107); Globulin 2.6 g/dL; Glucose 97 mg/dL (74-99); Non-African American GFR(CKD) 18 (>60 ml/min/1.73 sqM); Potassium 3.8 mmol/L (3.5-5.1); Sodium 134 mmol/L (137-145); Total Bilirubin 0.6 mg/dL (0.2-1.3); Total Protein 6.2 g/dL (6.3-8.2)
[2024-08-11] MEDS: SODIUM FERRIC GLUCONAT-SUCROSE 125 MG in SODIUM CHLORIDE 0.9% 100 ML IVPB ONE (07:59)
[2024-08-11 12:49] LABS: Glucose,Whole Blood 104 mg/dL (70-110)
[2024-08-11 17:43] LABS: Glucose,Whole Blood 118 mg/dL (70-110)
[2024-08-11 20:21] LABS: Glucose,Whole Blood 168 mg/dL (70-110)
[2024-08-11] MEDS: INSULIN GLARGINE (LANTUS) 100 UNIT/ML SYR SQ SCH (21:29)
[2024-08-11] MEDS: DARBEPOETIN ALFA 60 MCG/0.3 ML SYRINGE SQ SCH (22:42)
[2024-08-12 04:19] VITALS: PULSE 63
[2024-08-12 05:42] LABS: Glucose,Whole Blood 108 mg/dL (70-110)
--- NOTE | 2024-08-12 06:03 | P.PN ---
Subjective Progress Note Date: 08/11/24 HISTORY OF PRESENT ILLNESS: This is a 58-year-old male with a previous medical history significant for coronary artery disease status post myocardial infarction back in 2014 and in 2022 status post PCI of the LAD as well as LCx, last stent placed was in 2022, hypertension and hypertensive cardiovascular disease, mixed hyperlipidemia, diabetes mellitus type 2, legally blind, history of ischemic cerebrovascular accident in the past with left-sided weakness, history of recurrent TIA, history of enlarged prostate, history of anxiety and depressive disorder, history of end-stage renal disease on hemodialysis Thursday and Thursday via fistula in the left upper extremity, patient was recently hospitalized at [facility] on June 16, 2024 after he was admitted for chest pain, at that time he underwent left heart catheterization bilaterally that showed normal LV diastolic and pressure, it did show a normal left main artery, LAD was normal with minimal stenosis in the midportion to the distal portion about 60%, the left circumflex artery was patent where the stents were placed, minimal irregularities, the RCA was totally occluded in the proximal portion, there was collateral from the LAD to distal RCA, patient then was discharged from the hospital, patient has been following up with me as an outpatient in a regular basis, apparently yesterday came to the office with increased abdominal pain associated with intractable nausea and vomiting not able to keep anything down, patient stated that he has not had a bowel movement in the past 7 days, patient was referred to the emergency department for evaluation, he had a CT scan of the abdomen pelvis that did show evidence of severe constipation with rectal fecaloma with stercoral colitis he was disimpacted in the emergency department, did receive 2 enema, he started to have some bowel movement, did receive Dulcolax suppository as well, he was admitted to hospital for further evaluation recommendation, he was started initially on clear liquid diet. That would be advanced to a consistent carbohydrate/renal diet. 08/11: Patient did have hemodialysis today, he is sitting up in recliner chair, he is feeling a bit better, he continues to have some issues with going to the bathroom, he continues to be somewhat anemic, will repeat the patient hemoglobin tomorrow morning, if the hemoglobin is stable he can be discharged and follow-up with us as an outpatient. REVIEW OF SYSTEMS: Constitutional: No documented fever, no chills, no night sweats. Significant weight change. Generalized weakness, fatigue or lethargy. No daytime sleepiness. EENT: No headache. Patient is legally blind, positive for loss of vision. No loss of Hearing, no ringing in the ears, no dizziness. No nasal drainage or c ongestion. No epistaxis. No sore throat. Lungs: Positive for shortness of breath, no cough, no sputum production. No wheezing. Reports dyspnea with activity. Cardiovascular: Positive for chest pain, no lower extremity edema. No palpitations. No paroxysmal nocturnal dyspnea. No orthopnea. No lightheadedness or dizziness. No syncopal episodes. Abdominal: Reports abdominal pain. Positive for nausea, vomiting. No diarrhea. Positive for constipation. No bloody stool reports loss of appetite. Genitourinary: No dysuria, increased frequency, urgency. No urinary retention. Musculoskeletal: No myalgias. No muscle weakness, no gait dysfunction, no frequent falls. No back pain. No neck pain. Integumentary: No wounds, no lesions. No rash or pruritus. No unusual bruising. No change in hair or nails. Neurologic: No aphasia. No facial droop. No change in mentation. No head injury. No headache. No paralysis. Positive for paresthesia due to diabetic polyneuropathy Psychiatric: Positive for depression. No anxiety. No mood swings. Endocrine: Positive for abnormal blood sugars. Significant weight change. PHYSICAL EXAMINATION: General: 58-year-old male laying down in bed in no apparent distress. HEENT: Head is atraumatic, normocephalic, pupils were equal round reactive to light and recommendation, extraocular muscle movement were intact, sclera nonicteric, conjunctivae were pale, mucous membranes of the mouth are somewhat dry. Neck: Supple, no JVP, normal carotid upstroke bilaterally, no lymphadenopathy. Chest: Decreased breath sounds at the bases, few rhonchi, no expiratory wheezes, no chest wall tenderness, no intercostal retractions. Heart: First heart sound is normal, second heart sounds normal systolic ejection murmur 2/6 located in the left sternal border. Abdomen: Soft, mild tenderness in the epigastric as well as left lower quadrant mildly distended, positive bowel sounds. Extremities: There is no edema no calf tenderness DP +2 bilaterally. Neurologic examination: Patient is awake alert and oriented x3, cranial nerves II-12 appear grossly intact, left-sided weakness that has been chronic. ASSESSMENT AND PLAN: 1. Severe constipation with left-sided stercoral colitis patient did have enemas in the emergency department, he was started back on lactulose, and current bowel regimen, will keep the patient hospital for another 24 hours, advance diet as tolerated. 2. End-stage renal disease on hemodialysis Thursday and Thursday. Consult nephrology for hemodialysis ordered. 3. Generalized weakness likely related to poor oral intake as well as worsening anemia. Continue treatment as in previous paragraphs. 4. Coronary artery disease status post recent heart catheterization 06/17/2024 that showed stable disease with patent stented arteries of the LAD and LCx. Continue patient on metoprolol ER 50 mg orally once every day, isosorbide mononitrate 30 mg orally once every day, hydralazine 50 mg orally 3 times every day, atorvastatin 80 mg once every day, ranolazine 500 mg orally twice every day, continue aspirin and Plavix 5. Hypertension and hypertensive cardiovascular disease. Continue patient on metoprolol ER 50 mg once every day, hydralazine 50 mg orally 3 times every day, losartan 25 mg once every day. 6. Mixed hyperlipidemia. Continue patient on atorvastatin 80 mg once every day, monitor the patient lipid panel, keep LDL 55 7. PAD. Stable at this time. Continue atorvastatin for secondary prevention. 8. Diabetes mellitus type 2 . Continue patient on Levemir 17 units at bedtime along with 9 units before each meal 3 times every day, monitor the patient blood sugar before each meal and bedtime. 9. History of CVA in the past with left-sided weakness and recurrent TIA. Continue patient on atorvastatin 80 mg once every day, continue patient on Plavix 75 mg once every day as well as aspirin 80 mg every day. 10. Enlarged prostate with urinary retention. Continue Flomax 0.4 mg orally twice every day. 11. History of gout. Continue patient on allopurinol 100 mg once every day. 12. History of anxiety and depressive disorder. Continue citalopram 60 mg orally once every day. 13. Anemia multifactorial monitor the patient hemoglobin very closely, transfuse for hemoglobin less than 7. Start the patient on Venofer 100 mg IV mag every 24 hours x24. 14. likely home tomorrow morning Objective - Vital Signs Vital signs: Vital Signs Temp 98.4 F 02/20/25 02:00 Pulse 66 08/11/24 02:00 Resp 17 08/11/24 02:00 BP 125/61 08/11/24 02:00 Pulse Ox 99 08/11/24 02:00 FiO2 Intake & Output 08/10/24 08/10/24 08/11/24 06:59 18:59 06:59 Intake Total 879 400 Output Total 420 4850 Balance 459 -4450 Weight 81.193 kg Intake: Oral 879 Hemodialysis 400 Output: Urine 420 450 Hemodialysis 2400 Hemodialysis Net Amount 2000 Other: Voiding Method Indwelling Catheter Indwelling Catheter Indwelling Catheter # Voids 2 1 # Bowel Movements 1 - Labs CBC & Chem 7: 08/11/24 06:29 08/11/24 06:29 Labs: Abnormal Lab Results - Last 24 Hours (Table) 08/10/24 08/10/24 08/10/24 Range/Units 05:37 05:37 11:52 RBC 2.36 L (4.40-5.60) X 10*6/uL Hgb 7.1 L (13.0-17.0) g/dL Hct 21.9 L (39.6-50.0) % Plt Count 104 L (140-440) X 10*3/uL MPV 8.6 L (9.5-12.2) FL BUN 49.1 H (9.0-27.0) mg/dL Creatinine 4.4 H (0.6-1.5) mg/dL Est GFR (CKD-EPI) 15 L (>=60) BUN/Creatinine Ratio 11.16 L (12.00-20.00) Ratio POC Glucose (mg/dL) 217 H (70-110) mg/dL Calcium 8.0 L (8.7-10.3) mg/dL Total Protein 5.8 L (6.2-8.2) g/dL Albumin 3.7 L (3.8-4.9) g/dL 08/10/24 Range/Units 19:36 RBC (4.40-5.60) X 10*6/uL Hgb (13.0-17.0) g/dL Hct (39.6-50.0) % Plt Count (140-440) X 10*3/uL MPV (9.5-12.2) FL BUN (9.0-27.0) mg/dL Creatinine (0.6-1.5) mg/dL Est GFR (CKD-EPI) (>=60) BUN/Creatinine Ratio (12.00-20.00) Ratio POC Glucose (mg/dL) 160 H (70-110) mg/dL Calcium (8.7-10.3) mg/dL Total Protein (6.2-8.2) g/dL Albumin (3.8-4.9) g/dL
[2024-08-12 06:53] LABS: Basophils % (A) 1 %; Eosinophils # (A) 0.2 k/uL (0-0.7); Eosinophils % (A) 3 %; HCT 22.3 % (39.0-53.0); HGB 7.4 gm/dL (13.0-17.5); Lymphocytes # (A) 1.1 k/uL (1.0-4.8); Lymphocytes % (A) 20 %; MCHC 33.3 g/dL (31.0-37.0); MCV 90.2 fL (80.0-100.0); Mean Platelet Volume 6.6; Monocytes # (A) 0.4 k/uL (0-1.0); Monocytes % (A) 7 %; Neutrophils # (A) 3.9 k/uL (1.3-7.7); Neutrophils % (A) 68 %; Platelet Count 127 k/uL (150-450); RBC 2.47 m/uL (4.30-5.90); RDW 14.1 % (11.5-15.5); WBC 5.7 k/uL (3.8-10.6)
[2024-08-12 07:01] LABS: ALT 27 U/L (4-49); AST 24 U/L (17-59); African American GFR (CKD) 19 (>60 ml/min/1.73 sqM); Albumin 3.5 g/dL (3.5-5.0); Albumin/Globulin Ratio 1.4; Alkaline Phosphatase 79 U/L (38-126); Anion Gap 9 mmol/L; Blood Urea Nitrogen 27 mg/dL (9-20); Carbon Dioxide 31 mmol/L (22-30); Chloride 93 mmol/L (98-107); Globulin 2.5 g/dL; Glucose 98 mg/dL (74-99); Non-African American GFR(CKD) 17 (>60 ml/min/1.73 sqM); Potassium 3.8 mmol/L (3.5-5.1); Sodium 133 mmol/L (137-145); Total Bilirubin 0.6 mg/dL (0.2-1.3)
[2024-08-12 07:41] VITALS: BP 157/73; RESP 16; TEMP 97.9
[2024-08-12] MEDS: SODIUM FERRIC GLUCONAT-SUCROSE 125 MG in SODIUM CHLORIDE 0.9% 100 ML IVPB ONE (08:42)
--- NOTE | 2024-09-01 18:11 | P.DS ---
Providers Date of admission: 08/09/24 14:50 Expected date of discharge: 08/12/24 Attending physician: Diana Broderick Consults: 08/09/24 17:48 Consult Physician Routine Consulting Provider: Kristina Gomez Consult Reason/Comments: HD Do you want consulting provider notified?: Yes Primary care physician: Diana Broderick Hospital Course: HISTORY OF PRESENT ILLNESS: This is a 58-year-old male with a previous medical history significant for coronary artery disease status post myocardial infarction back in 2014 and in 2022 status post PCI of the LAD as well as LCx, last stent placed was in 2022, hypertension and hypertensive cardiovascular disease, mixed hyperlipidemia, diabetes mellitus type 2, legally blind, history of ischemic cerebrovascular accident in the past with left-sided weakness, history of recurrent TIA, history of enlarged prostate, history of anxiety and depressive disorder, history of end-stage renal disease on hemodialysis Thursday and Thursday via fistula in the left upper extremity, patient was recently hospitalized at [facility] on June 16, 2024 after he was admitted for chest pain, at that time he underwent left heart catheterization bilaterally that showed normal LV diastolic and pressure, it did show a normal left main artery, LAD was normal with minimal stenosis in the midportion to the distal portion about 60%, the left circumflex artery was patent where the stents were placed, minimal irregularities, the RCA was totally occluded in the proximal portion, there was collateral from the LAD to distal RCA, patient then was discharged from the hospital, patient has been following up with me as an outpatient in a regular basis, apparently yesterday came to the office with increased abdominal pain associated with intractable nausea and vomiting not able to keep anything down, patient stated that he has not had a bowel movement in the past 7 days, patient was referred to the emergency department for evalu ation, he had a CT scan of the abdomen pelvis that did show evidence of severe constipation with rectal fecaloma with stercoral colitis he was disimpacted in the emergency department, did receive 2 enema, he started to have some bowel movement, did receive Dulcolax suppository as well, he was admitted to hospital for further evaluation recommendation, he was started initially on clear liquid diet. That would be advanced to a consistent carbohydrate/renal diet. 08/11: Patient did have hemodialysis today, he is sitting up in recliner chair, he is feeling a bit better, he continues to have some issues with going to the bathroom, he continues to be somewhat anemic, will repeat the patient hemoglobin tomorrow morning, if the hemoglobin is stable he can be discharged and follow-up with us as an outpatient. 08/12: Patient is doing better today, he will receive another dose of iron today, if his hemoglobin is stable patient can be discharged home to follow-up with me as an outpatient next week. He is to resume his dialysis on Thursday as planned. Discharge diagnoses: 1. Severe constipation with left-sided stercoral colitis 2. End-stage renal disease on hemodialysis Thursday and Thursday. 3. Generalized weakness likely related to poor oral intake as well as worsening anemia. 4. Coronary artery disease status post recent heart catheterization 06/17/2024 that showed stable disease with patent stented arteries of the LAD and LCx. 5. Hypertension and hypertensive cardiovascular disease. 6. Mixed hyperlipidemia. 7. PAD. 8. Diabetes mellitus type 2 . 9. History of CVA in the past with left-sided weakness and recurrent TIA. 10. Enlarged prostate with urinary retention. 11. History of gout. 12. History of anxiety and depressive disorder. 13. Anemia multifactorial Plan - Discharge Summary New Discharge Prescriptions: No Action Pantoprazole [Protonix] 40 mg PO BID Tamsulosin [Flomax] 0.4 mg PO BID Citalopram Hydrobromide [CeleXA] 20 mg PO DAILY allopurinoL [Zyloprim] 100 mg PO DAILY Atorvastatin [Lipitor] 80 mg PO HS Citalopram Hydrobromide [CeleXA] 40 mg PO DAILY Furosemide [Lasix] 80 mg PO DAILY Nitroglycerin Sl Tabs [Nitrostat] 0.4 mg SL Q5M PRN PRN Reason: Chest Pain Calcium Carbonate [Tums] 500 mg PO TID Loratadine [Claritin] 10 mg PO DAILY #30 tab Isosorbide Mononitrate ER [Imdur] 30 mg PO DAILY #90 tab Insulin Glargine,Hum.rec.anlog [Lantus Solostar Pen] 17 units SQ HS Insulin Lispro [humaLOG Kwikpen] 9 unit SQ ACHS prednisoLONE ACETATE 1% OPHTH [Pred Forte 1%] 1 drop BOTH EYES DIRECTED Folic Acid/Vit B Complex and C [Nephro-Cirilo Tablet] 0.8 mg PO DAILY Metoprolol Succinate (ER) [Toprol XL] 50 mg PO DAILY Losartan [Cozaar] 25 mg PO DAILY Ranolazine [Ranexa] 500 mg PO Q12HR #60 tab hydrALAZINE HCL [Apresoline] 50 mg PO TID Clopidogrel [Plavix] 75 mg PO DAILY Aspirin 81 mg PO DAILY Oxymetazoline 0.05% Nasl Weldon [Afrin 0.05% Nasal [place]] 2 spray NASAL BID PRN #1 dispenser PRN Reason: Congestion Ofloxacin 0.3% Ophth Soln [Ocuflox Ophth Soln] 1 drop BOTH EYES DIRECTED Ketorolac 0.5% Ophth Soln [Acular 0.5%] 1 drop BOTH EYES DIRECTED Discharge Medication List Pantoprazole [Protonix] 40 mg PO BID 11/05/17 [History] Tamsulosin [Flomax] 0.4 mg PO BID 11/05/17 [History] Citalopram Hydrobromide [CeleXA] 20 mg PO DAILY 12/12/18 [History] allopurinoL [Zyloprim] 100 mg PO DAILY 04/05/19 [History] Atorvastatin [Lipitor] 80 mg PO HS 12/30/19 [History] Citalopram Hydrobromide [CeleXA] 40 mg PO DAILY 06/29/20 [History] Folic Acid/Vit B Complex and C [Nephro-Cirilo Tablet] 0.8 mg PO DAILY 05/05/23 [History] Losartan [Cozaar] 25 mg PO DAILY 09/19/23 [History] Metoprolol Succinate (ER) [Toprol XL] 50 mg PO DAILY 09/19/23 [History] Ranolazine [Ranexa] 500 mg PO Q12HR #60 tab 09/21/23 [Rx] Furosemide [Lasix] 80 mg PO DAILY 10/16/23 [History] Nitroglycerin Sl Tabs [Nitrostat] 0.4 mg SL Q5M PRN 10/16/23 [History] hydrALAZINE HCL [Apresoline] 50 mg PO TID 04/12/24 [History] Calcium Carbonate [Tums] 500 mg PO TID 06/16/24 [History] Clopidogrel [Plavix] 75 mg PO DAILY 06/16/24 [History] Aspirin 81 mg PO DAILY 06/20/24 [History] Loratadine [Claritin] 10 mg PO DAILY #30 tab 06/24/24 [Rx] Oxymetazoline 0.05% Nasl Weldon [Afrin 0.05% Nasal Weldon] 2 spray NASAL BID PRN #1 dispenser 06/24/24 [Rx] Isosorbide Mononitrate ER [Imdur] 30 mg PO DAILY #90 tab 07/01/24 [Rx] Insulin Glargine,Hum.rec.anlog [Lantus Solostar Pen] 17 units SQ HS 07/12/24 [History] Insulin Lispro [humaLOG Kwikpen] 9 unit SQ ACHS 07/12/24 [History] Ketorolac 0.5% Ophth Soln [Acular 0.5%] 1 drop BOTH EYES DIRECTED 08/09/24 [History] Ofloxacin 0.3% Ophth Soln [Ocuflox Ophth Soln] 1 drop BOTH EYES DIRECTED 08/09/24 [History] prednisoLONE ACETATE 1% OPHTH [Pred Forte 1%] 1 drop BOTH EYES DIRECTED 08/09/24 [History] Follow up Appointment(s)/Referral(s): [facility], [NON-STAFF] - As Needed Diana Broderick MD [Primary Care Provider] - 1-2 days
== END 2024-08-12 12:08 | disposition home health service (06) ==
LOC: EC 10:08 → 6NMEDSUR 14:50
PROVIDERS: ADMIT Internal Medicine; ATTEND Internal Medicine
DX: K51.50 Left sided colitis without complications (principal); I25.10 Atherosclerotic heart disease of native coronary artery without angina pectoris; E11.40 Type 2 diabetes mellitus with diabetic neuropathy, unspecified; E78.2 Mixed hyperlipidemia; K21.9 Gastro-esophageal reflux disease without esophagitis; I13.11 Hypertensive heart and chronic kidney disease without heart failure, with stage 5 chronic kidney disease, or end stage renal disease; N18.6 End stage renal disease; E11.22 Type 2 diabetes mellitus with diabetic chronic kidney disease; N40.1 Benign prostatic hyperplasia with lower urinary tract symptoms; R33.8 Other retention of urine; F32.A Depression, unspecified; F41.9 Anxiety disorder, unspecified; D63.1 Anemia in chronic kidney disease; M19.90 Unspecified osteoarthritis, unspecified site; R53.1 Weakness; M10.9 Gout, unspecified; I25.2 Old myocardial infarction; I69.354 Hemiplegia and hemiparesis following cerebral infarction affecting left non-dominant side; Z95.5 Presence of coronary angioplasty implant and graft; Z79.02 Long term (current) use of antithrombotics/antiplatelets; Z79.4 Long term (current) use of insulin; Z79.82 Long term (current) use of aspirin; Z79.899 Other long term (current) drug therapy; Z88.5 Allergy status to narcotic agent
CPT/HCPCS: 96376 ×2; 90935 ×2; 96365; 96366 ×2; 96372; 96374; 96375; 99285; 36415; 80053 ×4; 82150; 83690; 85025 ×4; 85610; 85730; 74176; G0378 ×4; J2405 ×4; J3490; J2916 ×2; J0882

== ENCOUNTER 2024-08-23 12:26 | Inpatient (IN) | payer MEDICARE, OTHER ==
[2024-08-23 13:57] LABS: ALT 27 U/L (4-49); AST 29 U/L (17-59); African American GFR (CKD) 14 (>60 ml/min/1.73 sqM); Albumin 4.5 g/dL (3.5-5.0); Alkaline Phosphatase 107 U/L (38-126); Amylase 69 U/L (30-110); Anion Gap 14 mmol/L; Blood Urea Nitrogen 35 mg/dL (9-20); Calcium 8.8 mg/dL (8.4-10.2); Carbon Dioxide 21 mmol/L (22-30); Chloride 100 mmol/L (98-107); Glucose 145 mg/dL (74-99); Lipase 121 U/L (23-300); Non-African American GFR(CKD) 12 (>60 ml/min/1.73 sqM); Potassium 4.7 mmol/L (3.5-5.1); Sodium 135 mmol/L (137-145); Total Bilirubin 0.5 mg/dL (0.2-1.3); Total Protein 7.3 g/dL (6.3-8.2)
[2024-08-23 14:01] LABS: Basophils % (A) 0 %; Eosinophils # (A) 0.1 k/uL (0-0.7); Eosinophils % (A) 1 %; HGB 8.8 gm/dL (13.0-17.5); Lymphocytes % (A) 16 %; MCH 29.7 pg (25.0-35.0); MCHC 32.7 g/dL (31.0-37.0); MCV 90.8 fL (80.0-100.0); Mean Platelet Volume 6.9; Monocytes # (A) 0.3 k/uL (0-1.0); Monocytes % (A) 5 %; Neutrophils # (A) 4.6 k/uL (1.3-7.7); Neutrophils % (A) 75 %; Platelet Count 173 k/uL (150-450); RBC 2.97 m/uL (4.30-5.90); WBC 6.1 k/uL (3.8-10.6)
[2024-08-23 14:15] LABS: Appearance,Urine Clear (Clear); Bacteria,Urine Rare /hpf; Bilirubin,Urine Negative (Negative); Blood,Urine Large (Negative); Color,Urine Yellow; Glucose,Urine (UA) Negative (Negative); Ketones,Urine Negative (Negative); Leukocyte Esterase,Urine Negative (Negative); Mucus,Urine Rare /hpf; Nitrite,Urine Negative (Negative); PH, Urine 8.5 (5.0-8.0); Protein,Urine 3+ (Negative); RBC,Urine >182 /hpf (0-5); Specific Gravity,Urine 1.013 (1.001-1.035); Urobilinogen,Urine <2.0 mg/dL (<2.0); WBC,Urine 5 /hpf (0-5)
--- NOTE | 2024-08-23 14:36 | XR ---
EXAMINATION TYPE: XR chest 2V DATE OF EXAM: 08/23/2024 2:30 PM COMPARISON: Chest radiographs from 07/20/2024 CLINICAL INDICATION: Male, 58 years old with history of Cough/pain; TECHNIQUE: XR chest 2V Frontal and lateral views of the chest. FINDINGS: Lungs/Pleura: There is no evidence of pleural effusion, focal consolidation, or pneumothorax. Pulmonary vascularity: Unremarkable. Heart/mediastinum: Cardiomediastinal silhouette is unremarkable. Musculoskeletal: No acute osseous pathology. IMPRESSION: No acute cardiopulmonary disease/process. [facility], , 08/23/2024 2:33 PM
--- NOTE | 2024-08-23 14:37 | XR ---
EXAMINATION TYPE: XR abdomen 2V DATE OF EXAM: 08/23/2024 2:30 PM COMPARISON: None CLINICAL INDICATION: Male, 58 years old with history of abd pain; TECHNIQUE: Two views of the abdomen were obtained. FINDINGS: Moderate amount stool throughout the colon. The bowel gas pattern is nonspecific without di lated loops of small or large bowel. There is no evidence for organomegaly or pneumoperitoneum. The osseous structures are intact. No abnormal calcifications are present. Fecal material and gas are de monstrated throughout the colon and rectum. IMPRESSION: Nonspecific bowel gas pattern without radiographic evidence for acute process. [facility], , 08/23/2024 2:34 PM
--- NOTE | 2024-08-23 15:10 | ED ---
General Adult HPI - General Chief complaint: Nausea/Vomiting/Diarrhea Stated complaint: vomiting Time Seen by Provider: 08/23/24 13:15 Source: patient, family Mode of arrival: ambulatory Limitations: no limitations - History of Present Illness Initial comments: 58-year-old male with past medical history of end-stage renal disease on hemodialysis, diabetes, hypertension who presents the emergency department reporting nausea vomiting. States he has been on antibiotics for urinary tract infection. He has been taking Bactrim. States that he has had nausea and vomiting. He went into Dr. Baez's office yesterday and this was changed to do xycycline as he was concerned that he was not tolerating the medication. Patient states that today he continues to have nausea and vomiting to the point where he can go to dialysis. He reports of burning and pain in his genital region. He does have a catheter in place. States that he has a home care nurse that changes it every month. He denies any fevers. No chest pain or difficulty breathing. No other alleviating, precipitating or modifying factors - Related Data Home Medications Medication Instructions Recorded Confirmed Pantoprazole [Protonix] 40 mg PO BID 11/05/17 08/23/24 Tamsulosin [Flomax] 0.4 mg PO BID 11/05/17 08/23/24 Citalopram Hydrobromide [CeleXA] 20 mg PO DAILY 12/12/18 08/23/24 allopurinoL [Zyloprim] 100 mg PO DAILY 04/05/19 08/23/24 Atorvastatin [Lipitor] 80 mg PO HS 12/30/19 08/23/24 Citalopram Hydrobromide [CeleXA] 40 mg PO DAILY 06/29/20 08/23/24 Folic Acid/Vit B Complex and C 0.8 mg PO DAILY 05/05/23 08/23/24 [Nephro-Cirilo Tablet] Losartan [Cozaar] 25 mg PO DAILY 09/19/23 08/23/24 Metoprolol Succinate (ER) [Toprol 50 mg PO DAILY 09/19/23 08/23/24 XL] Furosemide [Lasix] 80 mg PO DAILY 10/16/23 08/23/24 Nitroglycerin Sl Tabs [Nitrostat] 0.4 mg SL Q5M PRN 10/16/23 08/23/24 hydrALAZINE HCL [Apresoline] 50 mg PO TID 04/12/24 08/23/24 Calcium Carbonate [Tums] 500 mg PO TID 06/16/24 08/23/24 Clopidogrel [Plavix] 75 mg PO DAILY 06/16/24 08/23/24 Aspirin 81 mg PO DAILY 06/20/24 08/23/24 Insulin Glargine,Hum.rec.anlog 17 units SQ HS 07/12/24 08/23/24 [Lantus Solostar Pen] Insulin Lispro [humaLOG Kwikpen] 9 unit SQ ACHS 07/12/24 08/23/24 Ketorolac 0.5% Ophth Soln [Acular 1 drop BOTH EYES DIRECTED 08/09/24 08/23/24 0.5%] Ofloxacin 0.3% Ophth Soln [Ocuflox 1 drop BOTH EYES DIRECTED 08/09/24 08/23/24 Ophth Soln] prednisoLONE ACETATE 1% OPHTH 1 drop BOTH EYES DIRECTED 08/09/24 08/23/24 [Pred Forte 1%] Doxycycline Hyclate 100 mg PO BID 08/23/24 08/23/24 Previous Rx's Medication Instructions Recorded Ranolazine [Ranexa] 500 mg PO Q12HR #60 tab 09/21/23 Loratadine [Claritin] 10 mg PO DAILY #30 tab 06/24/24 Oxymetazoline 0.05% Nasl [place] 2 spray NASAL BID PRN #1 dispenser 06/24/24 [Afrin 0.05% Nasal [place]] Isosorbide Mononitrate ER [Imdur] 30 mg PO DAILY #90 tab 07/01/24 Allergies Allergy/AdvReac Type Severity Reaction Status Date / Time hydromorphone AdvReac Confusion Verified 08/23/24 16:26 Iodinated Contrast Media AdvReac Nausea & Verified 08/23/24 16:26 [Iodinated Contrast- Oral Vomiting and IV Dye] sucralfate AdvReac Nausea & Verified 08/23/24 16:26 Vomiting Review of Systems ROS Statement: Those systems with pertinent positive or pertinent negative responses have been documented in the HPI. ROS Other: All systems not noted in ROS Statement are negative. Past Medical History Past Medical History: Coronary Artery Disease (CAD), Chest Pain / Angina, CVA/TIA, Diabetes Mellitus, Eye Disorder, GERD/Reflux, Hearing Disorder / Deafness, Hyperlipidemia, Hypertension, Myocardial Infarction ([place]), Prostate Disorder, Renal Disease, Rheumatoid Arthritis (RA) Additional Past Medical History / Comment(s): [place] X2 in 2014 and 02/2023., 02 3L/NC., Hx stroke Apr 2017. , hx tia's ., left side weakness., Migranes., Diabetic neuropathy arms and legs, tremors off and on, circulation problems, us es quad cane and wheelchair., Kidney disease with dialysis TUTHSA. Hx Pancreatitis., Legally blind, some trouble hearing. Enlarged prostate, trouble urinating. , hx of recent uti's., anemia., constipation Last Myocardial Infarction Date:: 02/2023 History of Any Multi-Drug Resistant Organisms: CRE, Other MDRO Date of last positivie culture/infection: 08/14/24 MDRO Source:: urine Past Surgical History: Cholecystectomy, Heart Catheterization, Heart Catheterization With Stent, Heart Catheterization With Stent, Hernia Repair, Prostate Surgery Additional Past Surgical History / Comment(s): Dialysis Port Placed - 03/14/23, HIATAL HERNIA REPAIR - 01/23/21., states hx 5 heart caths with 5 stents. Past Anesthesia/Blood Transfusion Reactions: No Reported Reaction Additional Past Anesthesia/Blood Transfusion Reaction / Comment(s): . Date of Last Stent Placement:: 05/07/23 Past Psychological History: Anxiety, Depression Smoking Status: Never smoker Past Alcohol Use History: None Reported Past Drug Use History: None Reported - Past Family History Mother Family Medical History: CVA/TIA, Diabetes Mellitus, Hypertension Additional Family Medical History / Comment(s): Parkinson's. Father Family Medical History: Myocardial Infarction ([place]) Additional Family Medical History / Comment(s): Father of a [place] in his 50s. General Exam Limitations: no limitations General appearance: alert, in no apparent distress Head exam: Present: atraumatic, normocephalic, normal inspection Eye exam: Present: normal appearance, PERRL, EOMI. Absent: scleral icterus, conjunctival injection, periorbital swelling ENT exam: Present: normal exam, mucous membranes moist Neck exam: Present: normal inspection. Absent: tenderness, meningismus, lymphadenopathy Respiratory exam: Present: normal lung sounds bilaterally. Absent: respiratory distress, wheezes, rales, rhonchi, stridor Cardiovascular Exam: Present: regular rate, normal rhythm, normal heart sounds. Absent: systolic murmur, diastolic murmur, rubs, gallop, clicks GI/Abdominal exam: Present: soft, normal bowel sounds. Absent: distended, tenderness, guarding, rebound, rigid Extremities exam: Present: normal inspection, full ROM, normal capillary refill. Absent: tenderness, pedal edema, joint swelling, calf tenderness Back exam: Present: normal inspection Neurological exam: Present: alert, oriented X3, CN II-XII intact Psychiatric exam: Present: normal affect, normal mood Skin exam: Present: warm, dry, intact, normal color. Absent: rash Course Vital Signs 08/23/24 08/23/24 08/23/24 13:12 16:12 16:13 Temperature 98.4 F 99.1 F Pulse Rate 74 68 Respiratory 20 20 Rate Blood Pressure 176/104 208/90 210/81 O2 Sat by Pulse 98 98 Oximetry 08/23/24 08/23/24 08/23/24 16:14 18:34 21:55 Temperature 98.7 F 98.1 F Pulse Rate 68 69 69 Respiratory 21 18 18 Rate Blood Pressure 203/82 186/78 159/69 O2 Sat by Pulse 99 100 99 Oximetry 08/24/24 08/24/24 08/24/24 05:13 07:51 09:38 Temperature 97.8 F 98.5 F Pulse Rate 60 76 70 Respiratory 18 16 20 Rate Blood Pressure 142/77 139/76 130/70 O2 Sat by Pulse 98 96 96 Oximetry 08/24/24 08/24/24 08/24/24 10:49 12:00 13:00 Temperature Pulse Rate 59 L 59 L 55 L Respiratory 18 18 18 Rate Blood Pressure 135/73 135/68 134/70 O2 Sat by Pulse 99 99 99 Oximetry 08/24/24 08/24/24 08/24/24 14:05 15:00 17:00 Temperature 98.0 F Pulse Rate 57 L 57 L 57 L Respiratory 18 18 16 Rate Blood Pressure 134/68 127/62 133/63 O2 Sat by Pulse 99 100 100 Oximetry 08/24/24 08/24/24 18:00 20:12 Temperature Pulse Rate 59 L 58 L Respiratory 18 17 Rate Blood Pressure 119/63 128/67 O2 Sat by Pulse 98 100 Oximetry Medical Decision Making - Medical Decision Making Was pt. sent in by a medical professional or institution (, RADHA, EDUCATION DIAGNOSTICIAN, urgent care, hospital, or fci...) When possible be specific @ -No Did you speak to anyone other than the patient for history (EMS, parent, family, police, friend...)? What history was obtained from this source @ -Sister for history Did you review nursing and triage notes (agree or disagree)? Why? @ -I reviewed and agree with nursing and triage notes Were old charts reviewed (outside hosp., previous admission, EMS record, old EKG, old radiological studies, urgent care reports/EKG's, fci records)? Report findings @ -I reviewed the patient's microbiology culture from August 14 Differential Diagnosis (chest pain, altered mental status, abdominal pain women, abdominal pain men, vaginal bleeding, weakness, fever, dyspnea, syncope, headache, dizziness, GI bleed, back pain, seizure, CVA, palpatations, mental health, musculoskeletal)? @ -Differential Abdominal Pain Men: Appendicitis, cholecystitis, diverticulosis, ischemic bowel, pancreatitis, hepatitis, UTI, gastroenteritis, AAA, incarcerated hernia, bowel obstruction, constipation, inflammatory bowel, hepatitis, peptic ulcer disease, splenic infarction, perforated viscus, testicular torsion, this is not meant to be an all-inclusive list EKG interpreted by me (3pts min.). @ -yes, and demonstrates sinus rhythm with a rate of 71. NV interval 173. QRS 102. Qtc 457. No st segment elevation X-rays interpreted by me (1pt min.). @ -Yes which demonstrates no acute process CT interpreted by me (1pt min.). @ -None done U/S interpreted by me (1pt. min.). @ -None done What testing was considered but not performed or refused? (CT, X-rays, U/S, labs)? Why? @ -None What meds were considered but not given or refused? Why? @ -None Did you discuss the management of the patient with other professionals (professionals i.e. , RADHA, EDUCATION DIAGNOSTICIAN, lab, RT, psych nurse, social work associate, grout pump operator, teacher, employment officer, nurse case management)? Give summary @ -Spoke with Dr. Broderick for admission Was smoking cessation discussed for >3mins.? @ -No Was critical care preformed (if so, how long)? @ -No Were there social determinants of health that impacted care today? How? (Homelessness, low income, unemployed, alcoholism, drug addiction, transportation, low edu. Level, literacy, decrease access to med. care, prison, rehab)? @ -No Was there de-escalation of care discussed even if they declined (Discuss DNR or withdrawal of care, Hospice)? DNR status @ -No What co-morbidities impacted this encounter? (DM, HTN, Smoking, COPD, CAD, Ca ncer, CVA, ARF, Chemo, Hep., AIDS, mental health diagnosis, sleep apnea, morbid obesity)? @ -End-stage renal disease on hemodialysis, diabetes, chronic urinary retention Was patient admitted / discharged? Hospital course, mention meds given and route, prescriptions, significant lab abnormalities, going to OR and other pertinent info. @ -Upon arrival patient seen and evaluated in the waiting room. Thorough history and physical exam was performed. IV access was established. Laboratory studies are conducted. Patient was given Zofran for nausea. Chest x-ray and abdominal x-ray are performed. I did discuss results with the patient. I discussed the results with Dr. Broderick. He agrees to admitting the patient. Last urine cultures showed resistance to several antibiotics. Patient will be placed on Fortaz. Dr. Angel and Dr. Gomez will be consulted. Patient was agreeable to admission. Undiagnosed new problem with uncertain prognosis? @ -No Drug Therapy requiring intensive monitoring for toxicity (Heparin, Nitro, Insulin, Cardizem)? @ -No Were any procedures done? @ -No Diagnosis/symptom? @ -acute nausea and vomiting, bustos catheter pain, acute uti, esrd on hd Acute, or Chronic, or Acute on Chronic? @ -Acute Uncomplicated (without systemic symptoms) or Complicated (systemic symptoms)? @ -Complicated Side effects of treatment? @ -No Exacerbation, Progression, or Severe Exacerbation? @ -No Poses a threat to life or bodily function? How? (Chest pain, [place], [place], pneumonia, PE, COPD, DKA, ARF, appy, cholecystitis, CVA, Diverticulitis, Homicidal, Suicidal, threat to staff... and all critical care pts) @ -No - Lab Data Result diagrams: 08/24/24 06:36 08/24/24 06:36 Lab Results 08/23/24 08/23/24 08/23/24 Range/Units 13:31 13:31 13:31 WBC 6.1 (3.8-10.6) k/uL RBC 2.97 L (4.30-5.90) m/uL Hgb 8.8 L (13.0-17.5) gm/dL Hct 27.0 L (39.0-53.0) % MCV 90.8 (80.0-100.0) fL MCH 29.7 (25.0-35.0) pg MCHC 32.7 (31.0-37.0) g/dL RDW 15.0 (11.5-15.5) % Plt Count 173 (150-450) k/uL MPV 6.9 Neutrophils % 75 % Lymphocytes % 16 % Monocytes % 5 % Eosinophils % 1 % Basophils % 0 % Neutrophils # 4.6 (1.3-7.7) k/uL Lymphocytes # 1.0 (1.0-4.8) k/uL Monocytes # 0.3 (0-1.0) k/uL Eosinophils # 0.1 (0-0.7) k/uL Basophils # 0.0 (0-0.2) k/uL Sodium 135 L (137-145) mmol/L Potassium 4.7 (3.5-5.1) mmol/L Chloride 100 (98-107) mmol/L Carbon Dioxide 21 L (22-30) mmol/L Anion Gap 14 mmol/L BUN 35 H (9-20) mg/dL Creatinine 5.07 H (0.66-1.25) mg/dL Est GFR (CKD-EPI)AfAm 14 (>60 ml/min/1.73 sqM) Est GFR (CKD-EPI)NonAf 12 (>60 ml/min/1.73 sqM) Glucose 145 H (74-99) mg/dL Calcium 8.8 (8.4-10.2) mg/dL Total Bilirubin 0.5 (0.2-1.3) mg/dL AST 29 (17-59) U/L ALT 27 (4-49) U/L Alkaline Phosphatase 107 (38-126) U/L Total Protein 7.3 (6.3-8.2) g/dL Albumin 4.5 (3.5-5.0) g/dL Amylase 69 (30-110) U/L Lipase 121 (23-300) U/L Urine Color Yellow Urine Appearance Clear (Clear) Urine pH 8.5 H (5.0-8.0) Ur Specific [place] 1.013 (1.001-1.035) Urine Protein 3+ H (Negative) Urine Glucose (UA) Negative (Negative) Urine Ketones Negative (Negative) Urine Blood Large H (Negative) Urine Nitrite Negative (Negative) Urine Bilirubin Negative (Negative) Urine Urobilinogen <2.0 (<2.0) mg/dL Ur Leukocyte Esterase Negative (Negative) Urine RBC >182 H (0-5) /hpf Urine WBC 5 (0-5) /hpf Urine Bacteria Rare H (None) /hpf Urine Mucus Rare H (None) /hpf Disposition Clinical Impression: Nausea & vomiting, ESRD (end stage renal disease) on dialysis, UTI (urinary tract infection) Disposition: ADMITTED IP TO [facility] Condition: Stable Is patient prescribed a controlled substance at d/c from ED?: No Time of Disposition: 15:41 Decision to Admit Reason: Admit from EC Decision Date: 08/23/24 Decision Time: 15:41
[2024-08-23] MEDS ORDERED: NALOXONE 0.4 MG/ML 1 ML VIAL IV PRN (15:41)
[2024-08-23] MEDS: ONDANSETRON 4 MG/2 ML VIAL IVP STA (15:50)
[2024-08-23] MEDS ORDERED: CITALOPRAM HYDROBROMIDE 20 MG TAB PO SCH ×2 (16:30→17:00)
[2024-08-23] MEDS ORDERED: NITROGLYCERIN SL TABS 0.4 MG TAB SUBLINGUAL PRN (16:30)
[2024-08-23] MEDS: ISOSORBIDE MONONITRATE ER 30 MG TAB.ER.24H PO SCH (17:14)
[2024-08-23] MEDS: METOPROLOL SUCCINATE (ER) 50 MG TAB.ER.24H PO SCH (17:14)
[2024-08-23] MEDS: FUROSEMIDE 80 MG TAB PO SCH (17:14)
[2024-08-23] MEDS: hydrALAZINE HCL 50 MG TAB PO SCH (17:14)
[2024-08-23] MEDS: CLOPIDOGREL 75 MG TAB PO SCH (17:15)
[2024-08-23] MEDS: PANTOPRAZOLE 40 MG TABLET PO SCH (17:15)
[2024-08-23] MEDS: allopurinoL 100 MG TAB PO SCH (17:15)
[2024-08-23] MEDS: CITALOPRAM HYDROBROMIDE 20 MG TAB PO SCH (17:15)
[2024-08-23] MEDS: LOSARTAN 25 MG TAB PO SCH (17:15)
[2024-08-23] MEDS: ASPIRIN 81 MG PO SCH (17:16)
[2024-08-23] MEDS: prednisoLONE ACETATE 1% OPHTH DROPS 5 ML BTL BOTH EYES SCH (17:42)
[2024-08-23] MEDS: OFLOXACIN 0.3% OPHTH DROPS 5 ML BOTTLE BOTH EYES SCH (17:43)
[2024-08-23] MEDS: KETOROLAC 0.5% OPHTH DROPS 5 ML BTL BOTH EYES SCH (17:43)
[2024-08-23 17:49] LABS: Glucose,Whole Blood 101 mg/dL (70-110)
[2024-08-23] MEDS: INSULIN LISPRO (HumaLOG) 100 UNIT/ML 10 mL VL SQ SCH (17:56)
[2024-08-23] MEDS: CEFTAZIDIME/AVIBACTAM 0.94 GM in SODIUM CHLORIDE 0.9% 50 ML IVPB SCH (18:30)
[2024-08-23 21:27] LABS: Glucose,Whole Blood 122 mg/dL (70-110)
[2024-08-23] MEDS: ATORVASTATIN 80 MG TAB PO SCH (21:50)
[2024-08-23] MEDS: CALCIUM CARBONATE 500 MG CHEWABLE PO SCH (21:50)
[2024-08-23] MEDS: TAMSULOSIN 0.4 MG CAP.ER.24H PO SCH (21:50)
[2024-08-23] MEDS: INSULIN GLARGINE (LANTUS) 100 UNIT/ML SYR SQ SCH (21:50)
[2024-08-23] MEDS: RANOLAZINE 500 MG TAB.ER.12H PO SCH (21:50)
[2024-08-23 23:03] LABS: Glucose,Whole Blood 214 mg/dL (70-110)
[2024-08-24] MEDS: ONDANSETRON 4 MG/2 ML VIAL IVP PRN (01:19)
[2024-08-24] MEDS: LORATADINE 10 MG TAB PO SCH (07:46)
[2024-08-24 07:53] LABS: Glucose,Whole Blood 95 mg/dL (70-110)
[2024-08-24] MEDS: FOLIC ACID-VIT B COMPLEX-VIT C 1 CAP PO SCH (09:47)
[2024-08-24 10:45] LABS: Basophils # (A) 0.03 X 10*3/uL (0.00-0.10); Basophils % (A) 0.5 %; Eosinophils # (A) 0.14 X 10*3/uL (0.04-0.35); Eosinophils % (A) 2.1 %; HCT 23.9 % (39.6-50.0); HGB 7.8 g/dL (13.0-17.0); Lymphocytes # (A) 1.22 X 10*3/uL (0.90-5.00); Lymphocytes % (A) 18.7 %; MCH 30.4 pg (27.0-32.0); MCHC 32.6 g/dL (32.0-37.0); Mean Platelet Volume 8.7 FL (9.5-12.2); Monocytes # (A) 0.65 X 10*3/uL (0.20-1.00); NRBC Per 100 WBC 0 X 10*3/uL (0.00-0.01); Neutrophils # (A) 4.46 X 10*3/uL (1.80-7.70); Neutrophils % (A) 68.4 %; Platelet Count 144 X 10*3/uL (140-440); RBC 2.57 X 10*6/uL (4.40-5.60); RDW 14.5 % (11.5-14.5); WBC 6.52 X 10*3/uL (4.50-10.00)
[2024-08-24 10:48] LABS: ALT 25 U/L (10-49); AST 25 U/L (14-35); Albumin 3.8 g/dL (3.8-4.9); Albumin/Globulin Ratio 1.73 Ratio (1.60-3.17); Alkaline Phosphatase 99 U/L (41-126); BUN/Creat Ratio 7.45 Ratio (12.00-20.00); Calcium 8.3 mg/dL (8.7-10.3); Carbon Dioxide 22.7 mmol/L (21.6-31.8); Chloride 103 mmol/L (96-109); Globulin 2.2 g/dL (1.6-3.3); Glucose 107 mg/dL (70-110); Potassium 5.3 mmol/L (3.5-5.5); Sodium 137 mmol/L (135-145); Total Bilirubin 0.4 mg/dL (0.3-1.2)
--- NOTE | 2024-08-24 12:18 | P.NPCON ---
History of Present Illness - Reason for Consult Consult date: 08/24/24 - History of Present Illness Reason for consult: ESRD on hemodialysis 58-year-old man with PMH of ESRD on hemodialysis, on a T/T/S schedule w/AV fistula present in the LUE, diabetes, hypertension who presents to the emergency department due to nausea and vomiting. States he has not been feeling well for the past week and a half. Was diagnosed with a UTI at his last admission, which was 2 weeks ago. He has an indwelling bustos catheter. Notes continued nausea and vomiting. HOwever no vomiting since arriving at the hospital. No history of fever or chills. No history of cough. Patient missed hemodialysis yesterday. Plan is to be dialyzed today. Serum potassium on arrival 4.7. No evidence of fluid overload. Chest x-ray done in the ED showed no acute cardiopulmonary process/disease Abdominal x-ray done in the ED showed nonspecific bowel gas pattern without radiologic evidence of acute process EKG done in the ED showed normal sinus rhythm with a rate of 71 Sodium on arrival 135 BUN on arrival 35 Creatinine on arrival 5.07 Past Medical History Past Medical History: Coronary Artery Disease (CAD), Chest Pain / Angina, CVA/TIA, Diabetes Mellitus, Eye Disorder, GERD/Reflux, Hearing Disorder / Deafness, Hyperlipidemia, Hypertension, Myocardial Infarction ([place]), Prostate Disorder, Renal Disease, Rheumatoid Arthritis (RA) Additional Past Medical History / Comment(s): [place] X2 in 2014 and 02/2023., 02 3L/NC., Hx stroke Apr 2017. , hx tia's ., left side weakness., Migranes., Diabetic neuropathy arms and legs, tremors off and on, circulation problems, uses quad cane and wheelchair., Kidney disease with dialysis TUTHSA. Hx Pancreatitis., Legally blind, some trouble hearing. Enlarged prostate, trouble urinating. , hx of recent uti's., anemia., constipation Last Myocardial Infarction Date:: 02/2023 History of Any Multi-Drug Resistant Organisms: CRE, Other MDRO Date of last positivie culture/infection: 08/14/24 MDRO Source:: urine Past Surgical History: Cholecystectomy, Heart Catheterization, Heart Catheterization With Stent, Heart Catheterization With Stent, Hernia Repair, Prostate Surgery Additional Past Surgical History / Comment(s): Dialysis Port Placed - 03/14/23, HIATAL HERNIA REPAIR - 01/23/21., states hx 5 heart caths with 5 stents. Past Anesthesia/Blood Transfusion Reactions: No Reported Reaction Additional Past Anesthesia/Blood Transfusion Reaction / Comment(s): . Date of Last Stent Placement:: 05/07/23 Past Psychological History: Anxiety, Depression Smoking Status: Never smoker Past Alcohol Use History: None Reported Past Drug Use History: None Reported - Past Family History Mother Family Medical History: CVA/TIA, Diabetes Mellitus, Hypertension Additional Family Medical History / Comment(s): Parkinson's. Father Family Medical History: Myocardial Infarction ([place]) Additional Family Medical History / Comment(s): Father of a [place] in his 50s. Medications and Allergies Home Medications Medication Instructions Recorded Confirmed Type Pantoprazole [Protonix] 40 mg PO BID 11/05/17 08/23/24 History Tamsulosin [Flomax] 0.4 mg PO BID 11/05/17 08/23/24 History Citalopram Hydrobromide [CeleXA] 20 mg PO DAILY 12/12/18 08/23/24 History allopurinoL [Zyloprim] 100 mg PO DAILY 04/05/19 08/23/24 History Atorvastatin [Lipitor] 80 mg PO HS 12/30/19 08/23/24 History Citalopram Hydrobromide [CeleXA] 40 mg PO DAILY 06/29/20 08/23/24 History Folic Acid/Vit B Complex and C 0.8 mg PO DAILY 05/05/23 08/23/24 History [Nephro-Cirilo Tablet] Losartan [Cozaar] 25 mg PO DAILY 09/19/23 08/23/24 History Metoprolol Succinate (ER) [Toprol 50 mg PO DAILY 09/19/23 08/23/24 History XL] Ranolazine [Ranexa] 500 mg PO Q12HR #60 tab 09/21/23 08/23/24 Rx Furosemide [Lasix] 80 mg PO DAILY 10/16/23 08/23/24 History Nitroglycerin Sl Tabs [Nitrostat] 0.4 mg SL Q5M PRN 10/16/23 08/23/24 History hydrALAZINE HCL [Apresoline] 50 mg PO TID 04/12/24 08/23/24 History Calcium Carbonate [Tums] 500 mg PO TID 06/16/24 08/23/24 History Clopidogrel [Plavix] 75 mg PO DAILY 06/16/24 08/23/24 History Aspirin 81 mg PO DAILY 06/20/24 08/23/24 History Loratadine [Claritin] 10 mg PO DAILY #30 tab 06/24/24 08/23/24 Rx Oxymetazoline 0.05% Nasl [place] 2 spray NASAL BID PRN #1 dispenser 06/24/24 08/23/24 Rx [Afrin 0.05% Nasal [place]] Isosorbide Mononitrate ER [Imdur] 30 mg PO DAILY #90 tab 07/01/24 08/23/24 Rx Insulin Glargine,Hum.rec.anlog 17 units SQ HS 07/12/24 08/23/24 History [Lantus Solostar Pen] Insulin Lispro [humaLOG Kwikpen] 9 unit SQ ACHS 07/12/24 08/23/24 History Ketorolac 0.5% Ophth Soln [Acular 1 drop BOTH EYES DIRECTED 08/09/24 08/23/24 History 0.5%] Ofloxacin 0.3% Ophth Soln [Ocuflox 1 drop BOTH EYES DIRECTED 08/09/24 08/23/24 History Ophth Soln] prednisoLONE ACETATE 1% OPHTH 1 drop BOTH EYES DIRECTED 08/09/24 08/23/24 History [Pred Forte 1%] Doxycycline Hyclate 100 mg PO BID 08/23/24 08/23/24 History Allergies Allergy/AdvReac Type Severity Reaction Status Date / Time hydromorphone AdvReac Confusion Verified 08/23/24 16:26 Iodinated Contrast Media AdvReac Nausea & Verified 08/23/24 16:26 [Iodinated Contrast- Oral Vomiting and IV Dye] sucralfate AdvReac Nausea & Verified 08/23/24 16:26 Vomiting Physical Exam Vitals: Vital Signs Temp Pulse Resp BP Pulse Ox 08/24/24 09:38 70 20 130/70 96 08/24/24 07:51 98.5 F 76 16 139/76 96 08/24/24 05:13 97.8 F 60 18 142/77 98 08/23/24 21:55 98.1 F 69 18 159/69 99 08/23/24 18:34 98.7 F 69 18 186/78 100 08/23/24 16:14 68 21 203/82 99 08/23/24 16:13 210/81 08/23/24 16:12 99.1 F 68 20 208/90 98 08/23/24 13:12 98.4 F 74 20 176/104 98 Intake and Output 08/23/24 08/24/24 08/24/24 22:59 06:59 14:59 Output Total 400 Balance -400 Output: Urine 400 Coude 400 Patient is awake, comfortable, no acute distress. Bustos catheter in place. Heart: S1 and S2 heard Lungs: Bilateral breath sounds are heard Abdomen: Soft and nontender Lower extremities: No edema POULTRY OFFAL ICER: grossly intact Results - Lab Results Most recent lab results Calcium 8.8 mg/dL (8.4-10.2) 08/23/24 13:31 08/25/24 03:18 08/25/24 03:18 Assessment and Plan Assessment: #ESRD on hemodialysis on T/T/S schedule #Recent UTI, N/V possibly related to antibiotic use #CKD mineral bone disorder, maintained on Tums as phosphate binder, Calcium this morning 8.3 #Anemia of CKD, hemoglobin this morning 7.8 #Chronic indwelling bustos catheter, secondary to hypotonic neurogenic bladder, follows with urology; maintained on Flomax #CAD w/ history of coronary stents Plan: -Hemodialysis today, again tomorrow a.m. -Monitor BMP, phosphorous and CBC in the morning -Initiate on Aranesp 60 mg once weekly -UA showed pH 8.5, protein 3+, blood large amounts, >182 RBCs; Bustos specimen, no evidence of active UTI Thank you for this consultation. Will continue to follow the patient during his hospital stay. Pt is seen and examined. Agree with resident's findings assessment and plan.
[2024-08-24 12:27] LABS: Glucose,Whole Blood 97 mg/dL (70-110)
[2024-08-24] MEDS: BARIUM SULFATE 2% - 450 ML ORAL.SUSP BOTTLE PO PRN (13:00)
[2024-08-24] MEDS: DARBEPOETIN ALFA 60 MCG/0.3 ML SYRINGE SQ SCH (13:03)
--- NOTE | 2024-08-24 14:30 | P.HPIM ---
History of Present Illness H&P Date: 08/23/24 Chief Complaint: Enterobacter UTI/intractable nausea and vomiting HISTORY OF PRESENT ILLNESS: This is a 58-year-old male with a previous medical history significant for coronary artery disease status post myocardial infarction back in 2014 and in 2022 status post PCI of the LAD as well as LCx, last stent placed was in 2022, hypertension and hypertensive cardiovascular disease, mixed hyperlipidemia, diabetes mellitus type 2, legally blind, history of ischemic c erebrovascular accident in the past with left-sided weakness, history of recurrent TIA, history of enlarged prostate, history of anxiety and depressive disorder, history of end-stage renal disease on hemodialysis Thursday and Thursday via fistula in the left upper extremity, patient was recently hospitalized at [facility] initially on June 16, 2024 after he was admitted for chest pain, at that time he underwent left heart catheterization bilaterally that showed normal LV diastolic and pressure, it did show a normal left main artery, LAD was normal with minimal stenosis in the midportion to the distal portion about 60%, the left circumflex artery was patent where the stents were placed, minimal irregularities, the RCA was totally occluded in the proximal portion, there was collateral from the LAD to distal RCA, patient then was discharged from the hospital, patient has been following up with me as an outpatient in a regular basis, apparently yesterday came to the office with increased abdominal pain associated with intractable nausea and vomiting not able to keep anything down, I have seen the patient in my office twice in the last week and he has been complaining of increased abdominal pain associated with intractable nausea and vomiting not able to keep anything down, patient was sent to the emergency department for evaluation initially was placed by Dr. Ra perez on Bactrim for Enterobacter however he was not able to tolerate the antibiotic very well, therefore he came to my office and put him on doxycycline 100 mg orally twice every day which she could not tolerate either he was sent to the ER for treatment of Enterobacter UTI due to Garcia catheterization and he was started on Fortaz and he was admitted to hospital for evaluation patient has missed his dialysis today his last dialysis was on Thursday, because of that he was admitted to the hospital for evaluation by infectious disease, urology as well as nephrology. REVIEW OF SYSTEMS: Constitutional: No documented fever, no chills, no night sweats. Significant weight change. Generalized weakness, fatigue or lethargy. No daytime sleepiness. EENT: No headache. Patient is legally blind, positive for loss of vision. No loss of Hearing, no ringing in the ears, no dizziness. No nasal drainage or congestion. No epistaxis. No sore throat. Lungs: Positive for shortness of breath, no cough, no sputum production. No wheezing. Reports dyspnea with activity. Cardiovascular: Positive for chest pain, no lower extremity edema. No palpitations. No paroxysmal nocturnal dyspnea. No orthopnea. No lightheadedness or dizziness. No syncopal episodes. Abdominal: Reports abdominal pain. Positive for nausea, vomiting. No diarrhea. Positive for constipation. No bloody stool reports loss of appetite. Genitourinary: No dysuria, increased frequency, urgency. No urinary retention. Musculoskeletal: No myalgias. No muscle weakness, no gait dysfunction, no frequent falls. No back pain. No neck pain. Integumentary: No wounds, no lesions. No rash or pruritus. No unusual bruising. No change in hair or nails. Neurologic: No aphasia. No facial droop. No change in mentation. No head injury. No headache. No paralysis. Positive for paresthesia due to diabetic polyneuropathy Psychiatric: Positive for depression. No anxiety. No mood swings. Endocrine: Positive for abnormal blood sugars. Significant weight change. PAST MEDICAL HISTORY: End-stage renal disease on hemodialysis Thursday and Thursday. Hypertension and hypertensive cardiovascular disease. Mixed hyperlipidemia. Coronary artery disease status post PCI of the LAD and LCx. Diabetes mellitus type 2. CVA with left-sided weakness Recurrent TIA. Enlarged prostate with urinary retention. Anemia Anxiety and depressive disorder. Osteoarthritis. PAST SURGICAL HISTORY: Cholecystectomy. Left heart catheterization last 1 was in June 17, 2024 Left heart catheterization with PCI in 2022. Left heart catheterization 2014. Hemodialysis port placed 03/14/2023 AV fistula of the left upper extremity Hiatal hernia repair. 01/23/2021 Prostate surgery. SOCIAL HISTORY: Patient is a lifelong non-smoker, he denies any alcohol ingestion, he denies any drug use or abuse, he recently lost his after she from metastatic uterine cancer and hospice program. He is legally blind, uses a quad cane as w ell as a wheelchair, he does not drive at this point in time. FAMILY HISTORY: Father in his 50s from myocardial infarction had history of CVA diabetes hypertension, mother at the age of 78 from Parkinson and had hypertension diabetes and history of CVA, patient had 3 brothers 1 at the age of 45 from [place] the other 2 from suicide, 2 sisters one 70-year-old and the other one 60-year-old no major medical problem patient has no kids. PHYSICAL EXAMINATION: General: 58-year-old male laying down in bed in no apparent distress. HEENT: Head is atraumatic, normocephalic, pupils were equal round reactive to light and recommendation, extraocular muscle movement were intact, sclera nonicteric, conjunctivae were pale, mucous membranes of the mouth are somewhat dry. Neck: Supple, no JVP, normal carotid upstroke bilaterally, no lymphadenopathy. Chest: Decreased breath sounds at the bases, few rhonchi, no expiratory wheezes, no chest wall tenderness, no intercostal retractions. Heart: First heart sound is normal, second heart sounds normal systolic ejection murmur 2/6 located in the left sternal border. Abdomen: Soft, mild tenderness in the epigastric as well as left lower quadrant mildly distended, positive bowel sounds. Extremities: There is no edema no calf tenderness DP +2 bilaterally. Neurologic examination: Patient is awake alert and oriented x3, cranial nerves II-12 appear grossly intact, left-sided weakness that has been chronic. ASSESSMENT AND PLAN: 1. Enterobacter UTI due to chronic indwelling Garcia catheterization discontinue doxycycline start the patient on Fortaz 1 g piggyback every 12 hours, infectious disease consultation, urology consultation as well, continue patient on Flomax 0.4 mg orally twice every day for now. Patient did a void trial as an outpatient and could not void at this point in time. 2. End-stage renal disease on hemodialysis Thursday and Thursday. Consult nephrology for hemodialysis ordered. 3. Generalized weakness likely related to poor oral intake as well as worsening anemia. Continue treatment as in previous paragraphs. 4. Coronary artery disease status post recent heart catheterization 06/17/2024 that showed stable disease with patent stented arteries of the LAD and LCx. Continue patient on metoprolol ER 50 mg orally once every day, isosorbide mononitrate 30 mg orally once every day, hydralazine 50 mg orally 3 times every day, atorvastatin 80 mg once every day, ranolazine 500 mg orally twice every day, continue aspirin and Plavix 5. Hypertension and hypertensive cardiovascular disease. Continue patient on metoprolol ER 50 mg once every day, hydralazine 50 mg orally 3 times every day, losartan 25 mg once every day. 6. Mixed hyperlipidemia. Continue patient on atorvastatin 80 mg once every day, monitor the patient lipid panel, keep LDL 55 7. PAD. Stable at this time. Continue atorvastatin for secondary prevention. 8. Diabetes mellitus type 2 . Continue patient on Levemir 17 units at bedtime along with 9 units before each meal 3 times every day, monitor the patient blood sugar before each meal and bedtime. 9. History of CVA in the past with left-sided weakness and recurrent TIA. Continue patient on atorvastatin 80 mg once every day, continue patient on Plavix 75 mg once every day as well as aspirin 80 mg every day. 10. Enlarged prostate with urinary retention. Continue Flomax 0.4 mg orally twice every day. 11. History of gout. Continue patient on allopurinol 100 mg once every day. 12. History of anxiety and depressive disorder. Continue citalopram 60 mg orally once every day. 13. Anemia multifactorial monitor the patient hemoglobin very closely, transfuse for hemoglobin less than 7. 14. Observation. 15. Full code. Past Medical History Past Medical History: Coronary Artery Disease (CAD), Chest Pain / Angina, CVA/TIA, Diabetes Mellitus, Eye Disorder, GERD/Reflux, Hearing Disorder / Deaf ness, Hyperlipidemia, Hypertension, Myocardial Infarction ([place]), Prostate Disorder, Renal Disease, Rheumatoid Arthritis (RA) Additional Past Medical History / Comment(s): [place] X2 in 2014 and 02/2023., 02 3L/NC., Hx stroke Apr 2017. , hx tia's ., left side weakness., Migranes., D iabetic neuropathy arms and legs, tremors off and on, circulation problems, uses quad cane and wheelchair., Kidney disease with dialysis TUTHSA. Hx Pancreatitis., Legally blind, some trouble hearing. Enlarged prostate, trouble urinating. , hx of recent uti's., anemia., constipation Last Myocardial Infarction Date:: 02/2023 History of Any Multi-Drug Resistant Organisms: CRE, Other MDRO Date of last positivie culture/infection: 08/14/24 MDRO Source:: urine Past Surgical History: Cholecystectomy, Heart Catheterization, Heart Catheterization With Stent, Heart Catheterization With Stent, Hernia Repair, Prostate Surgery Additional Past Surgical History / Comment(s): Dialysis Port Placed - 03/14/23, HIATAL HERNIA REPAIR - 01/23/21., states hx 5 heart caths with 5 stents. Past Anesthesia/Blood Transfusion Reactions: No Reported Reaction Additional Past Anesthesia/Blood Transfusion Reaction / Comment(s): . Date of Last Stent Placement:: 05/07/23 Past Psychological History: Anxiety, Depression Smoking Status: Never smoker Past Alcohol Use History: None Reported Past Drug Use History: None Reported - Past Family History Mother Family Medical History: CVA/TIA, Diabetes Mellitus, Hypertension Additional Family Medical History / Comment(s): Parkinson's. Father Family Medical History: Myocardial Infarction ([place]) Additional Family Medical History / Comment(s): Father of a [place] in his 50s. Medications and Allergies Home Medications Medication Instructions Recorded Confirmed Type Pantoprazole [Protonix] 40 mg PO BID 11/05/17 08/23/24 History Tamsulosin [Flomax] 0.4 mg PO BID 11/05/17 08/23/24 History Citalopram Hydrobromide [CeleXA] 20 mg PO DAILY 12/12/18 08/23/24 History allopurinoL [Zyloprim] 100 mg PO DAILY 04/05/19 08/23/24 History Atorvastatin [Lipitor] 80 mg PO HS 12/30/19 08/23/24 History Citalopram Hydrobromide [CeleXA] 40 mg PO DAILY 06/29/20 08/23/24 History Folic Acid/Vit B Complex and C 0.8 mg PO DAILY 05/05/23 08/23/24 History [Nephro-Cirilo Tablet] Losartan [Cozaar] 25 mg PO DAILY 09/19/23 08/23/24 History Metoprolol Succinate (ER) [Toprol 50 mg PO DAILY 09/19/23 08/23/24 History XL] Ranolazine [Ranexa] 500 mg PO Q12HR #60 tab 09/21/23 08/23/24 Rx Furosemide [Lasix] 80 mg PO DAILY 10/16/23 08/23/24 History Nitroglycerin Sl Tabs [Nitrostat] 0.4 mg SL Q5M PRN 10/16/23 08/23/24 History hydrALAZINE HCL [Apresoline] 50 mg PO TID 04/12/24 08/23/24 History Calcium Carbonate [Tums] 500 mg PO TID 06/16/24 08/23/24 History Clopidogrel [Plavix] 75 mg PO DAILY 06/16/24 08/23/24 History Aspirin 81 mg PO DAILY 06/20/24 08/23/24 History Loratadine [Claritin] 10 mg PO DAILY #30 tab 06/24/24 08/23/24 Rx Oxymetazoline 0.05% Nasl [place] 2 spray NASAL BID PRN #1 dispenser 06/24/24 08/23/24 Rx [Afrin 0.05% Nasal [place]] Isosorbide Mononitrate ER [Imdur] 30 mg PO DAILY #90 tab 07/01/24 08/23/24 Rx Insulin Glargine,Hum.rec.anlog 17 units SQ HS 07/12/24 08/23/24 History [Lantus Solostar Pen] Insulin Lispro [humaLOG Kwikpen] 9 unit SQ ACHS 07/12/24 08/23/24 History Ketorolac 0.5% Ophth Soln [Acular 1 drop BOTH EYES DIRECTED 08/09/24 08/23/24 History 0.5%] Ofloxacin 0.3% Ophth Soln [Ocuflox 1 drop BOTH EYES DIRECTED 08/09/24 08/23/24 History Ophth Soln] prednisoLONE ACETATE 1% OPHTH 1 drop BOTH EYES DIRECTED 08/09/24 08/23/24 History [Pred Forte 1%] Doxycycline Hyclate 100 mg PO BID 08/23/24 08/23/24 History Allergies Allergy/AdvReac Type Severity Reaction Status Date / Time hydromorphone AdvReac Confusion Verified 08/23/24 16:26 Iodinated Contrast Media AdvReac Nausea & Verified 08/23/24 16:26 [Iodinated Contrast- Oral Vomiting and IV Dye] sucralfate AdvReac Nausea & Verified 08/23/24 16:26 Vomiting Physical Exam Vitals: Vital Signs Temp Pulse Resp BP Pulse Ox 08/23/24 16:14 68 21 203/82 99 08/23/24 16:13 210/81 08/23/24 16:12 99.1 F 68 20 208/90 98 08/23/24 13:12 98.4 F 74 20 176/104 98 Intake and Output 08/23/24 08/23/24 08/23/24 06:59 14:59 22:59 Other: Weight 80.286 kg Results CBC & Chem 7: 08/24/24 06:36 08/24/24 06:36 Labs: Abnormal Lab Results - Last 24 Hours (Table) 08/23/24 08/23/24 08/23/24 Range/Units 13:31 13:31 13:31 RBC 2.97 L (4.30-5.90) m/uL Hgb 8.8 L (13.0-17.5) gm/dL Hct 27.0 L (39.0-53.0) % Sodium 135 L (137-145) mmol/L Carbon Dioxide 21 L (22-30) mmol/L BUN 35 H (9-20) mg/dL Creatinine 5.07 H (0.66-1.25) mg/dL Glucose 145 H (74-99) mg/dL Urine pH 8.5 H (5.0-8.0) Urine Protein 3+ H (Negative) Urine Blood Large H (Negative) Urine RBC >182 H (0-5) /hpf Urine Bacteria Rare H (None) /hpf Urine Mucus Rare H (None) /hpf
[2024-08-24 15:04] LABS: Appearance,Urine Clear (Clear); Bilirubin,Urine Negative (Negative); Blood,Urine Negative (Negative); Color,Urine Light Yellow; Glucose,Urine (UA) Negative (Negative); Ketones,Urine Negative (Negative); Leukocyte Esterase,Urine Small (Negative); Nitrite,Urine Negative (Negative); Protein,Urine 1+ (Negative); RBC,Urine 5 /hpf (0-5); Specific Gravity,Urine 1.011 (1.001-1.035); Squamous Epithelial Cell,Urine <1 /hpf (0-4); Urobilinogen,Urine <2.0 mg/dL (<2.0); WBC,Urine 11 /hpf (0-5)
--- NOTE | 2024-08-24 16:41 | CT ---
EXAMINATION TYPE: CT abdomen pelvis wo con DATE OF EXAM: 08/24/2024 COMPARISON: 08/09/2024 CLINICAL INDICATION: Male, 58 years old with history of Abdominal pain vomiting; PHH, Abdominal pain vomiting TECHNIQUE: CT scan of the abdomen and pelvis is performed without oral or IV contrast. CT DLP: 558.[address] CTDI: mGy Automated exposure control for dose reduction was used. FINDINGS: Within the limitations of a non-contrast study, the following observations are made The lungs are clear. There is a moderate hiatal hernia and postsurgical changes at the GE junction There is surgical absence of the gallbladder.. There is no biliary ductal dilatation. There is no organomegaly of the liver, pancreas, spleen or adrenal glands. There are no renal calcifications or hydronephrosis. The caliber of the abdominal aorta is normal and there is no retroperitoneal adenopathy or hemorrhage . The bowel loops are normal in caliber is no evidence of obstruction. No inflammatory changes are iden tified in the mesentery and there is no free intraperitoneal air or fluid. There is no change in the large amount of stool within the rectum. There is no pelvic mass, free fluid, abscess or adenopathy. There is a Garcia catheter within the urin brandy bladder. The prostate gland is not visualized raising question of prostatectomy and clinical kumar elation is recommended. The osseous structures and soft tissues are unremarkable. IMPRESSION: 1. Moderate hiatal hernia and postsurgical changes in the GE junction. Stable compared to previous 2. No change in large amount of stool within the rectum but no bowel obstruction. 3. Garcia catheter in urinary bladder. Prostate gland not clearly identified. Question of prostatectom y and correlation with surgical history is recommended. [facility], , 08/24/2024 4:38 PM
--- NOTE | 2024-08-24 17:17 | P.GSCN ---
History of Present Illness Consult date: 08/24/24 Reason for Consult: Urinary retention History of present illness: This is a 58-year-old male known patient to Dr. Harris with history of urinary retention secondary to a hypotonic bladder. He underwent a TURP back in 2018 for his urinary retention, continued to have difficulty void postsurgery subsequent cystoscopy showed wide open prostatic fossa. Patient did have a period of 1 year without a Garcia catheter and was able to urinate, but s ubsequently a Garcia catheter was placed back in May and he has been catheter dependent since that time. Patient is on hemodialysis at this time. He indicated his catheter was last changed approximately 3 weeks ago. He cannot quantify the amount of urine he makes over 24-hour. Denies any gross hematuria or recent UTIs Review of Systems - Constitutional Denies fever, Denies weight loss - Respiratory Denies cough, Denies 7 - Gastrointestinal Reports abdominal pain, Reports nausea, Reports vomiting - Genitourinary Denies dysuria, Denies hematuria - Neurological Denies headaches, Denies syncope Past Medical History Past Medical History: Coronary Artery Disease (CAD), Chest Pain / Angina, CV A/TIA, Diabetes Mellitus, Eye Disorder, GERD/Reflux, Hearing Disorder / Deafness, Hyperlipidemia, Hypertension, Myocardial Infarction ([place]), Prostate Disorder, Renal Disease, Rheumatoid Arthritis (RA) Additional Past Medical History / Comment(s): [place] X2 in 2014 and 02/2023., 02 3L/NC., Hx stroke Apr 2017. , hx tia's ., left side weakness., Migranes., Diabetic neuropathy arms and legs, tremors off and on, circulation problems, uses quad cane and wheelchair., Kidney disease with dialysis TUTHSA. Hx Pancreatitis., Legally blind, some trouble hearing. Enlarged prostate, trouble urinating. , hx of recent uti's., anemia., constipation Last Myocardial Infarction Date:: 02/2023 History of Any Multi-Drug Resistant Organisms: CRE, Other MDRO Year Discovered:: 08/14/24 MDRO Source:: urine Past Surgical History: Cholecystectomy, Heart Catheterization, Heart Catheterization With Stent, Heart Catheterization With Stent, Hernia Repair, Prostate Surgery Additional Past Surgical History / Comment(s): Dialysis Port Placed - 03/14/23, HIATAL HERNIA REPAIR - 01/23/21., states hx 5 heart caths with 5 stents. Past Anesthesia/Blood Transfusion Reactions: No Reported Reaction Additional Past Anesthesia/Blood Transfusion Reaction / Comm: . Date of Last Stent Placement:: 05/07/23 Past Psychological History: Anxiety, Depression Smoking Status: Never smoker Past Alcohol Use History: None Reported Past Drug Use History: None Reported - Past Family History Mother Family Medical History: CVA/TIA, Diabetes Mellitus, Hypertension Additional Family Medical History / Comment(s): Parkinson's. Father Family Medical History: Myocardial Infarction ([place]) Additional Family Medical History / Comment(s): Father of a [place] in his 50s. Medications and Allergies Home Medications Medication Instructions Recorded Confirmed Type RX: Pantoprazole [Protonix] 40 mg PO BID 11/05/17 08/23/24 History RX: Tamsulosin [Flomax] 0.4 mg PO BID 11/05/17 08/23/24 History RX: Citalopram Hydrobromide 20 mg PO DAILY 12/12/18 08/23/24 History [CeleXA] RX: allopurinoL [Zyloprim] 100 mg PO DAILY 04/05/19 08/23/24 History RX: Atorvastatin [Lipitor] 80 mg PO HS 12/30/19 08/23/24 History RX: Citalopram Hydrobromide 40 mg PO DAILY 06/29/20 08/23/24 History [CeleXA] RX: Folic Acid/Vit B Complex and C 0.8 mg PO DAILY 05/05/23 08/23/24 History [Nephro-Cirilo Tablet] RX: Losartan [Cozaar] 25 mg PO DAILY 09/19/23 08/23/24 History RX: Metoprolol Succinate (ER) 50 mg PO DAILY 09/19/23 08/23/24 History [Toprol XL] RX: Ranolazine [Ranexa] 500 mg PO Q12HR #60 tab 09/21/23 08/23/24 Rx RX: Furosemide [Lasix] 80 mg PO DAILY 10/16/23 08/23/24 History RX: Nitroglycerin Sl Tabs 0.4 mg SL Q5M PRN 10/16/23 08/23/24 History [Nitrostat] RX: hydrALAZINE HCL [Apresoline] 50 mg PO TID 04/12/24 08/23/24 History RX: Calcium Carbonate [Tums] 500 mg PO TID 06/16/24 08/23/24 History RX: Clopidogrel [Plavix] 75 mg PO DAILY 06/16/24 08/23/24 History RX: Aspirin 81 mg PO DAILY 06/20/24 08/23/24 History RX: Loratadine [Claritin] 10 mg PO DAILY #30 tab 06/24/24 08/23/24 Rx RX: Oxymetazoline 0.05% Nasl [place] 2 spray NASAL BID PRN #1 dispenser 06/24/24 08/23/24 Rx [Afrin 0.05% Nasal [place]] RX: Isosorbide Mononitrate ER 30 mg PO DAILY #90 tab 07/01/24 08/23/24 Rx [Imdur] Insulin Glargine,Hum.rec.anlog 17 units SQ HS 07/12/24 08/23/24 History [Lantus Solostar Pen] Insulin Lispro [humaLOG Kwikpen] 9 unit SQ ACHS 07/12/24 08/23/24 History Ketorolac 0.5% Ophth Soln [Acular 1 drop BOTH EYES DIRECTED 08/09/24 08/23/24 History 0.5%] Ofloxacin 0.3% Ophth Soln [Ocuflox 1 drop BOTH EYES DIRECTED 08/09/24 08/23/24 History Ophth Soln] prednisoLONE ACETATE 1% OPHTH 1 drop BOTH EYES DIRECTED 08/09/24 08/23/24 History [Pred Forte 1%] RX: Doxycycline Hyclate 100 mg PO BID 08/23/24 08/23/24 History Allergies Allergy/AdvReac Type Severity Reaction Status Date / Time hydromorphone AdvReac Confusion Verified 08/23/24 16:26 Iodinated Contrast Media AdvReac Nausea & Verified 08/23/24 16:26 [Iodinated Contrast- Oral Vomiting and IV Dye] sucralfate AdvReac Nausea & Verified 08/23/24 16:26 Vomiting Surgical - Exam Vital Signs Temp Pulse Resp BP Pulse Ox 98.4 F 74 20 176/104 98 08/23/24 13:12 08/23/24 13:12 08/23/24 13:12 08/23/24 13:12 08/23/24 13:12 - General no distress, no pain - Eyes normal ocular movement, no pale - ENT normal nares, normal mucosa - Respiratory normal expansion, normal respiratory effort - Abdomen Abdomen: soft, non tender, no distended Results - Labs 08/24/24 06:36 08/24/24 06:36 Abnormal Lab Results - Last 24 Hours (Table) 08/23/24 08/23/24 08/24/24 Range/Units 21:25 23:02 06:36 RBC (4.40-5.60) X 10*6/uL Hgb (13.0-17.0) g/dL Hct (39.6-50.0) % MPV (9.5-12.2) FL BUN 41.0 H (9.0-27.0) mg/dL Creatinine 5.5 H (0.6-1.5) mg/dL Est GFR (CKD-EPI) 11 L (>=60) BUN/Creatinine Ratio 7.45 L (12.00-20.00) Ratio POC Glucose (mg/dL) 122 H 214 H (70-110) mg/dL Calcium 8.3 L (8.7-10.3) mg/dL Total Protein 6.0 L (6.2-8.2) g/dL Urine Protein (Negative) Ur Leukocyte Esterase (Negative) Urine WBC (0-5) /hpf 08/24/24 08/24/24 Range/Units 06:36 13:31 RBC 2.57 L (4.40-5.60) X 10*6/uL Hgb 7.8 L (13.0-17.0) g/dL Hct 23.9 L (39.6-50.0) % MPV 8.7 L (9.5-12.2) FL BUN (9.0-27.0) mg/dL Creatinine (0.6-1.5) mg/dL Est GFR (CKD-EPI) (>=60) BUN/Creatinine Ratio (12.00-20.00) Ratio POC Glucose (mg/dL) (70-110) mg/dL Calcium (8.7-10.3) mg/dL Total Protein (6.2-8.2) g/dL Urine Protein 1+ H (Negative) Ur Leukocyte Esterase Small H (Negative) Urine WBC 11 H (0-5) /hpf Diabetes panel 08/24/24 Range/Units 06:36 Sodium 137 (135-145) mmol/L Potassium 5.3 (3.5-5.5) mmol/L Chloride 103 (96-109) mmol/L Carbon Dioxide 22.7 (21.6-31.8) mmol/L BUN 41.0 H (9.0-27.0) mg/dL Creatinine 5.5 H (0.6-1.5) mg/dL Glucose 107 (70-110) mg/dL Calcium 8.3 L (8.7-10.3) mg/dL AST 25 (14-35) U/L ALT 25 (10-49) U/L Alkaline Phosphatase 99 (41-126) U/L Total Protein 6.0 L (6.2-8.2) g/dL Albumin 3.8 (3.8-4.9) g/dL Calcium panel 08/24/24 Range/Units 06:36 Calcium 8.3 L (8.7-10.3) mg/dL Albumin 3.8 (3.8-4.9) g/dL Pituitary panel 08/24/24 Range/Units 06:36 Sodium 137 (135-145) mmol/L Potassium 5.3 (3.5-5.5) mmol/L Chloride 103 (96-109) mmol/L Carbon Dioxide 22.7 (21.6-31.8) mmol/L BUN 41.0 H (9.0-27.0) mg/dL Creatinine 5.5 H (0.6-1.5) mg/dL Glucose 107 (70-110) mg/dL Calcium 8.3 L (8.7-10.3) mg/dL Adrenal panel 08/24/24 Range/Units 06:36 Sodium 137 (135-145) mmol/L Potassium 5.3 (3.5-5.5) mmol/L Chloride 103 (96-109) mmol/L Carbon Dioxide 22.7 (21.6-31.8) mmol/L BUN 41.0 H (9.0-27.0) mg/dL Creatinine 5.5 H (0.6-1.5) mg/dL Glucose 107 (70-110) mg/dL Calcium 8.3 L (8.7-10.3) mg/dL Total Bilirubin 0.4 (0.3-1.2) mg/dL AST 25 (14-35) U/L ALT 25 (10-49) U/L Alkaline Phosphatase 99 (41-126) U/L Total Protein 6.0 L (6.2-8.2) g/dL Albumin 3.8 (3.8-4.9) g/dL Assessment and Plan Assessment: 58-year-old male with history of chronic retention follows up with Dr. Lambert history of TURP back in 2019, has a hypotonic bladder. He has been catheter dependent. Patient is on hemodialysis. From my and he can continue with monthly catheter changes and follow-up as an outpatient with Dr. Harris given his multiple failed trial voids and chronic retention.
[2024-08-24] MEDS: LACTULOSE 20 GM/30 ML CUP PO SCH (17:43)
[2024-08-24 20:54] LABS: Glucose,Whole Blood 121 mg/dL (70-110)
[2024-08-25 04:01] LABS: Basophils % (A) 0 %; Eosinophils # (A) 0.1 k/uL (0-0.7); Eosinophils % (A) 2 %; HGB 8.5 gm/dL (13.0-17.5); Lymphocytes # (A) 1.2 k/uL (1.0-4.8); Lymphocytes % (A) 22 %; MCH 30.2 pg (25.0-35.0); MCHC 32.8 g/dL (31.0-37.0); Mean Platelet Volume 7.3; Monocytes # (A) 0.3 k/uL (0-1.0); Monocytes % (A) 6 %; Neutrophils # (A) 3.8 k/uL (1.3-7.7); Neutrophils % (A) 68 %; Platelet Count 140 k/uL (150-450); RBC 2.83 m/uL (4.30-5.90); RDW 15.1 % (11.5-15.5); WBC 5.6 k/uL (3.8-10.6)
[2024-08-25 04:14] LABS: African American GFR (CKD) 17 (>60 ml/min/1.73 sqM); Anion Gap 9 mmol/L; Blood Urea Nitrogen 22 mg/dL (9-20); Carbon Dioxide 31 mmol/L (22-30); Chloride 89 mmol/L (98-107); Glucose 222 mg/dL (74-99); Non-African American GFR(CKD) 15 (>60 ml/min/1.73 sqM); Phosphorus 3.8 mg/dL (2.5-4.5); Potassium 4.1 mmol/L (3.5-5.1); Sodium 129 mmol/L (137-145)
[2024-08-25 06:22] LABS: Glucose,Whole Blood 170 mg/dL (70-110)
[2024-08-25 09:06] LABS: Glucose,Whole Blood 80 mg/dL (70-110)
--- NOTE | 2024-08-25 09:43 | P.CONS ---
History of Present Illness - Reason for Consult Consult date: 08/24/24 Abnormal UA Requesting physician: Kylie Arcos - Chief Complaint Nausea vomiting abdominal pain x few days - History of Present Illness Patient is a 58-year-old male with a past medical history significant for hypertension hyperlipidemia reflux diabetes mellitus CVA TIA coronary artery disease end-stage renal disease on dialysis patient still makes urine and did have indwelling Garcia catheter apparently patient has been diagnosed with a UTI in the outpatient setting and has been treated with the Bactrim DS patient seem to have problem with the nausea and vomiting antibiotic was subsequently switched over to doxycycline with persistent symptoms he was advised to go to the hospital patient denies high-grade fever or any chills and no fever has been recorded on presentation to the hospital his main symptom has been nausea and vomiting some vague lower abdominal discomfort denies having any diarrhea or constipation he still have a Garcia catheter that has been there for few weeks now he is not very clear when the last time it was changed admission has been placed for retention pharmacist did review his culture data and noticed that he did grew multidrug-resistant Enterobacter cloacae on 08/14/2024 that was intermediate to cefepime sensitive to Avycaz gentamicin and Bactrim DS is antibiotic has been switched over to Avycaz is pending evaluation this morning, patient denies having any headache or URI symptoms no chest pain shortness of breath or cough no abdominal pain and no diarrhea Review of Systems Positive point and negatives has been mentioned in the HPI, complete review of systems was performed and all other systems are negative Past Medical History Past Medical History: Coronary Artery Disease (CAD), Chest Pain / Angina, CVA/TIA, Diabetes Mellitus, Eye Disorder, GERD/Reflux, Hearing Disorder / Deafness, Hyperlipidemia, Hypertension, Myocardial Infarction (PA), Prostate Disorder, Renal Disease, Rheumatoid Arthritis (RA) Additional Past Medical History / Comment(s): PA X2 in 2014 and 02/2023., 02 3L/NC., Hx stroke Apr 2017. , hx tia's ., left side weakness., Migranes., Diabetic neuropathy arms and legs, tremors off and on, circulation problems, uses quad cane and wheelchair., Kidney disease with dialysis [facility]. Hx Pancreatitis., Legally blind, some trouble hearing. Enlarged prostate, trouble urinating. , hx of recent uti's., anemia., constipation Last Myocardial Infarction Date:: 02/2023 History of Any Multi-Drug Resistant Organisms: CRE, Other MDRO Year Discovered:: 08/14/24 MDRO Source:: urine Past Surgical History: Cholecystectomy, Heart Catheterization, Heart Catheterization With Stent, Heart Catheterization With Stent, Hernia Repair, Prostate Surgery Additional Past Surgical History / Comment(s): Dialysis Port Placed - 03/14/23, HIATAL HERNIA REPAIR - 01/23/21., states hx 5 heart caths with 5 stents. Past Anesthesia/Blood Transfusion Reactions: No Reported Reaction Additional Past Anesthesia/Blood Transfusion Reaction / Comm: . Date of Last Stent Placement:: 05/07/23 Past Psychological History: Anxiety, Depression Smoking Status: Never smoker Past Alcohol Use History: None Reported Past Drug Use History: None Reported - Past Family History Mother Family Medical History: CVA/TIA, Diabetes Mellitus, Hypertension Additional Family Medical History / Comment(s): Parkinson's. Father Family Medical History: Myocardial Infarction (PA) Additional Family Medical History / Comment(s): Father of a PA in his 50s. Medications and Allergies Home Medications Medication Instructions Recorded Confirmed Type Pantoprazole [Protonix] 40 mg PO BID 11/05/17 08/23/24 History Tamsulosin [Flomax] 0.4 mg PO BID 11/05/17 08/23/24 History Citalopram Hydrobromide [CeleXA] 20 mg PO DAILY 12/12/18 08/23/24 History allopurinoL [Zyloprim] 100 mg PO DAILY 04/05/19 08/23/24 History Atorvastatin [Lipitor] 80 mg PO HS 12/30/19 08/23/24 History Citalopram Hydrobromide [CeleXA] 40 mg PO DAILY 06/29/20 08/23/24 History Folic Acid/Vit B Complex and C 0.8 mg PO DAILY 05/05/23 08/23/24 History [Nephro-Cirilo Tablet] Losartan [Cozaar] 25 mg PO DAILY 09/19/23 08/23/24 History Metoprolol Succinate (ER) [Toprol 50 mg PO DAILY 09/19/23 08/23/24 History XL] Ranolazine [Ranexa] 500 mg PO Q12HR #60 tab 09/21/23 08/23/24 Rx Furosemide [Lasix] 80 mg PO DAILY 10/16/23 08/23/24 History Nitroglycerin Sl Tabs [Nitrostat] 0.4 mg SL Q5M PRN 10/16/23 08/23/24 History hydrALAZINE HCL [Apresoline] 50 mg PO TID 04/12/24 08/23/24 History Calcium Carbonate [Tums] 500 mg PO TID 06/16/24 08/23/24 History Clopidogrel [Plavix] 75 mg PO DAILY 06/16/24 08/23/24 History Aspirin 81 mg PO DAILY 06/20/24 08/23/24 History Loratadine [Claritin] 10 mg PO DAILY #30 tab 06/24/24 08/23/24 Rx Oxymetazoline 0.05% Nasl [place] 2 spray NASAL BID PRN #1 dispenser 06/24/24 08/23/24 Rx [Afrin 0.05% Nasal [place]] Isosorbide Mononitrate ER [Imdur] 30 mg PO DAILY #90 tab 07/01/24 08/23/24 Rx Insulin Glargine,Hum.rec.anlog 17 units SQ HS 07/12/24 08/23/24 History [Lantus Solostar Pen] Insulin Lispro [humaLOG Kwikpen] 9 unit SQ ACHS 07/12/24 08/23/24 History Ketorolac 0.5% Ophth Soln [Acular 1 drop BOTH EYES DIRECTED 08/09/24 08/23/24 History 0.5%] Ofloxacin 0.3% Ophth Soln [Ocuflox 1 drop BOTH EYES DIRECTED 08/09/24 08/23/24 History Ophth Soln] prednisoLONE ACETATE 1% OPHTH 1 drop BOTH EYES DIRECTED 08/09/24 08/23/24 History [Pred Forte 1%] Doxycycline Hyclate 100 mg PO BID 08/23/24 08/23/24 History Allergies Allergy/AdvReac Type Severity Reaction Status Date / Time hydromorphone AdvReac Confusion Verified 08/23/24 16:26 Iodinated Contrast Media AdvReac Nausea & Verified 08/23/24 16:26 [Iodinated Contrast- Oral Vomiting and IV Dye] sucralfate AdvReac Nausea & Verified 08/23/24 16:26 Vomiting Physical Exam Vitals: Vital Signs Temp Pulse Resp BP Pulse Ox 08/24/24 10:49 59 L 18 135/73 99 08/24/24 09:38 70 20 130/70 96 08/24/24 07:51 98.5 F 76 16 139/76 96 08/24/24 05:13 97.8 F 60 18 142/77 98 08/23/24 21:55 98.1 F 69 18 159/69 99 08/23/24 18:34 98.7 F 69 18 186/78 100 08/23/24 16:14 68 21 203/82 99 08/23/24 16:13 210/81 08/23/24 16:12 99.1 F 68 20 208/90 98 08/23/24 13:12 98.4 F 74 20 176/104 98 Intake and Output 08/23/24 08/24/24 08/24/24 22:59 06:59 14:59 Output Total 400 Balance -400 Output: Urine 400 Coude 400 GENERAL DESCRIPTION: Middle-age male lying in bed, no distress. No tachypnea or accessory muscle of respiration use. HEENT: Shows Pallor , no scleral icterus. Oral mucous membrane is dry. NECK: Trachea central, no thyromegaly. LUNGS: Unlabored breathing. Clear to auscultation anteriorly. No wheeze or crackle. HEART: S1, S2, regular rate and rhythm. No loud murmur ABDOMEN: Soft, no tenderness , guarding or rigidity, no organomegaly EXTREMITIES: No edema of feet. SKIN: No rash, no masses palpable. NEUROLOGICAL: The patient is awake, alert, oriented x3, mood and affect normal. Results CBC & Chem 7: 08/25/24 03:18 08/25/24 03:18 Labs: Abnormal Lab Results - Last 24 Hours (Table) 08/23/24 08/23/24 08/23/24 Range/Units 13:31 13:31 13:31 RBC 2.97 L (4.30-5.90) m/uL Hgb 8.8 L (13.0-17.5) gm/dL Hct 27.0 L (39.0-53.0) % MPV (9.5-12.2) FL Sodium 135 L (137-145) mmol/L Carbon Dioxide 21 L (22-30) mmol/L BUN 35 H (9-20) mg/dL Creatinine 5.07 H (0.66-1.25) mg/dL Est GFR (CKD-EPI) (>=60) BUN/Creatinine Ratio (12.00-20.00) Ratio Glucose 145 H (74-99) mg/dL POC Glucose (mg/dL) (70-110) mg/dL Calcium (8.7-10.3) mg/dL Total Protein (6.2-8.2) g/dL Urine pH 8.5 H (5.0-8.0) Urine Protein 3+ H (Negative) Urine Blood Large H (Negative) Urine RBC >182 H (0-5) /hpf Urine Bacteria Rare H (None) /hpf Urine Mucus Rare H (None) /hpf 08/23/24 08/23/24 08/24/24 Range/Units 21:25 23:02 06:36 RBC (4.30-5.90) m/uL Hgb (13.0-17.5) gm/dL Hct (39.0-53.0) % MPV (9.5-12.2) FL Sodium (137-145) mmol/L Carbon Dioxide (22-30) mmol/L BUN 41.0 H (9-20) mg/dL Creatinine 5.5 H (0.66-1.25) mg/dL Est GFR (CKD-EPI) 11 L (>=60) BUN/Creatinine Ratio 7.45 L (12.00-20.00) Ratio Glucose (74-99) mg/dL POC Glucose (mg/dL) 122 H 214 H (70-110) mg/dL Calcium 8.3 L (8.7-10.3) mg/dL Total Protein 6.0 L (6.2-8.2) g/dL Urine pH (5.0-8.0) Urine Protein (Negative) Urine Blood (Negative) Urine RBC (0-5) /hpf Urine Bacteria (None) /hpf Urine Mucus (None) /hpf 08/24/24 Range/Units 06:36 RBC 2.57 L (4.30-5.90) m/uL Hgb 7.8 L (13.0-17.5) gm/dL Hct 23.9 L (39.0-53.0) % MPV 8.7 L (9.5-12.2) FL Sodium (137-145) mmol/L Carbon Dioxide (22-30) mmol/L BUN (9-20) mg/dL Creatinine (0.66-1.25) mg/dL Est GFR (CKD-EPI) (>=60) BUN/Creatinine Ratio (12.00-20.00) Ratio Glucose (74-99) mg/dL POC Glucose (mg/dL) (70-110) mg/dL Calcium (8.7-10.3) mg/dL Total Protein (6.2-8.2) g/dL Urine pH (5.0-8.0) Urine Protein (Negative) Urine Blood (Negative) Urine RBC (0-5) /hpf Urine Bacteria (None) /hpf Urine Mucus (None) /hpf Assessment and Plan (1) Nausea & vomiting Current Visit: Yes Status: Acute Code(s): R11.2 - NAUSEA WITH VOMITING, UNSPECIFIED SNOMED Code(s): 72876679 (2) UTI (urinary tract infection) Current Visit: Yes Status: Acute Code(s): N39.0 - URINARY TRACT INFECTION, SITE NOT SPECIFIED SNOMED Code(s): 85135215 Plan: 1-patient presented hospital with nausea vomiting lower abdominal discomfort in this patient who recently did have a urine culture positive on 08/14/2024 with a multiresistant Enterobacter with the patient and also wanted to Bactrim, tetracycline now with persistent symptoms however the UA has not been significantly positive with a question of possible other abdominal source for his symptoms. 2-we will obtain a CT of abdominal pelvis to better define underlying pathology and repeat a UA and culture as initial urine was not significantly positive 3-for now continue with empiric Avycaz on the basis of recent urine culture positive for multidrug-resistant Enterobacter while waiting for the workup to be completed We will follow on clinical condition and cultures to further adjust medication if needed Thank you for this consultation we will follow the patient along with you Dictation was produced using [employer] dictation software. please excuse any grammatical, word or spelling errors. Time with Patient: Less than 30
[2024-08-25 11:55] LABS: Glucose,Whole Blood 234 mg/dL (70-110)
--- NOTE | 2024-08-25 12:39 | P.PN ---
Subjective Progress Note Date: 08/25/24 Patient seen for follow-up for ESRD on hemodialysis. Was scheduled to undergo hemodialysis yesterday, 2.5 L were removed. Will undergo hemodialysis this morning, with 1 L removed. Urine culture preliminarily positive for gram-negative bacilli. No active complaints at this time. Serum potassium this morning 4.1, sodium 129. Patient does not appear to be fluid overloaded. Objective - Vital Signs Vital signs: Vital Signs Temp 98.0 F 08/25/24 07:00 Pulse 59 L 08/25/24 07:00 Resp 17 08/25/24 07:00 BP 154/74 08/25/24 07:00 Pulse Ox 100 08/25/24 07:00 FiO2 Intake & Output 08/24/24 08/25/24 08/25/24 18:59 06:59 18:59 Intake Total 591 Balance 591 Weight 80.286 kg Intake: Oral 591 Other: Voiding Method Indwelling Catheter # Bowel Movements 0 - Exam Patient is awake, comfortable, no acute distress. Bustos catheter in place. Heart: S1 and S2 heard Lungs: Bilateral breath sounds are heard Abdomen: Soft and nontender Lower extremities: No edema ROTOR WINDER: grossly intact - Labs CBC & Chem 7: 08/26/24 03:20 08/26/24 03:20 Labs: Abnormal Lab Results - Last 24 Hours (Table) 08/24/24 08/24/24 08/24/24 Range/Units 06:36 06:36 13:31 RBC 2.57 L (4.40-5.60) X 10*6/uL Hgb 7.8 L (13.0-17.0) g/dL Hct 23.9 L (39.6-50.0) % Plt Count (150-450) k/uL MPV 8.7 L (9.5-12.2) FL Sodium (137-145) mmol/L Chloride (98-107) mmol/L Carbon Dioxide (22-30) mmol/L BUN 41.0 H (9.0-27.0) mg/dL Creatinine 5.5 H (0.6-1.5) mg/dL Est GFR (CKD-EPI) 11 L (>=60) BUN/Creatinine Ratio 7.45 L (12.00-20.00) Ratio Glucose (74-99) mg/dL POC Glucose (mg/dL) (70-110) mg/dL Calcium 8.3 L (8.7-10.3) mg/dL Total Protein 6.0 L (6.2-8.2) g/dL Urine Protein 1+ H (Negative) Ur Leukocyte Esterase Small H (Negative) Urine WBC 11 H (0-5) /hpf 08/24/24 08/25/24 08/25/24 Range/Units 20:52 03:18 03:18 RBC 2.83 L (4.40-5.60) X 10*6/uL Hgb 8.5 L (13.0-17.0) g/dL Hct 26.0 L (39.6-50.0) % Plt Count 140 L (150-450) k/uL MPV (9.5-12.2) FL Sodium 129 L (137-145) mmol/L Chloride 89 L (98-107) mmol/L Carbon Dioxide 31 H (22-30) mmol/L BUN 22 H (9.0-27.0) mg/dL Creatinine 4.22 H (0.6-1.5) mg/dL Est GFR (CKD-EPI) (>=60) BUN/Creatinine Ratio (12.00-20.00) Ratio Glucose 222 H (74-99) mg/dL POC Glucose (mg/dL) 121 H (70-110) mg/dL Calcium 8.0 L (8.7-10.3) mg/dL Total Protein (6.2-8.2) g/dL Urine Protein (Negative) Ur Leukocyte Esterase (Negative) Urine WBC (0-5) /hpf 08/25/24 Range/Units 06:21 RBC (4.40-5.60) X 10*6/uL Hgb (13.0-17.0) g/dL Hct (39.6-50.0) % Plt Count (150-450) k/uL MPV (9.5-12.2) FL Sodium (137-145) mmol/L Chloride (98-107) mmol/L Carbon Dioxide (22-30) mmol/L BUN (9.0-27.0) mg/dL Creatinine (0.6-1.5) mg/dL Est GFR (CKD-EPI) (>=60) BUN/Creatinine Ratio (12.00-20.00) Ratio Glucose (74-99) mg/dL POC Glucose (mg/dL) 170 H (70-110) mg/dL Calcium (8.7-10.3) mg/dL Total Protein (6.2-8.2) g/dL Urine Protein (Negative) Ur Leukocyte Esterase (Negative) Urine WBC (0-5) /hpf Assessment and Plan Assessment: #ESRD on hemodialysis on T/T/S schedule #Recent UTI, N/V possibly related to antibiotic use #CKD mineral bone disorder, maintained on Tums as phosphate binder, Calcium this morning 8.0 #Anemia of CKD, hemoglobin this morning 8.5 #Chronic indwelling bustos catheter, secondary to hypotonic neurogenic bladder, follows with urology; maintained on Flomax #CAD w/ history of coronary stents Plan: -Hemodialysis done today, again on Thursday if he remains inpatient -Monitor BMP, CBC in the morning -Initiate on Aranesp 60 mg once weekly -UA showed pH 8.5, protein 3+, blood large amounts, >182 RBCs; Bustos specimen, no evidence of active UTI; urine culture preliminarily positive for gram- negative bacilli -Repeat UA showed pH 7.0, 1+ protein, small amount of urine leukocyte esterase, and 11 urine WBCs - -Stable for discharge from nephrology standpoint; continue his usual T/T/S dialysis schedule. Agree with resident's findings, assessment and plan. Patient is seen and examined.
--- NOTE | 2024-08-25 15:00 | P.PN ---
Subjective Progress Note Date: 08/24/24 HISTORY OF PRESENT ILLNESS: This is a 58-year-old male with a previous medical history significant for coronary artery disease status post myocardial infarction back in 2014 and in 2022 status post PCI of the LAD as well as LCx, last stent placed was in 2022, hypertension and hypertensive cardiovascular disease, mixed hyperlipidemia, diabetes mellitus type 2, legally blind, history of ischemic cerebrovascular accident in the past with left-sided weakness, history of recurrent TIA, history of enlarged prostate, history of anxiety and depressive disorder, history of end-stage renal disease on hemodialysis Thursday and Thursday via fistula in the left upper extremity, patient was recently hospitalized at [facility] initially on June 16, 2024 after he was admitted for chest pain, at that time he underwent left heart catheterization bilaterally that showed normal LV diastolic and pressure, it did show a normal left main artery, LAD was normal with minimal stenosis in the midportion to the distal portion about 60%, the left circumflex artery was patent where the stents were placed, minimal irregularities, the RCA was totally occluded in the proximal portion, there was collateral from the LAD to distal RCA, patient then was discharged from the hospital, patient has been following up with me as an outpatient in a regular basis, apparently yesterday came to the office with increased abdominal pain associated with intractable nausea and vomiting not able to keep anything down, I have seen the patient in my office twice in the last week and he has been complaining of increased abdominal pain associated with intractable nausea and vomiting not able to keep anything down, patient was sent to the emergency department for evaluation initially was placed by Dr. Chahal on Bactrim for Enterobacter however he was not able to tolerate the antibiotic very well, therefore he came to my office and put him on doxycycline 100 mg orally twice every day which she could not tolerate either he was sent to the ER for treatment of Enterobacter UTI due to Garcia catheterization and he was started on Fortaz and he was admitted to hospital for evaluation patient has missed his dialysis today his last dialysis was on Thursday, because of that he was admitted to the hospital for evaluation by infectious disease, urology as well as nephrology. 08/24: Patient is laying down in bed in no apparent distress, he is drinking the oral contrast for his CT scan of the abdomen pelvis that ordered with oral contrast by infectious ease, he denies any chest pain, he has no shortness of breath, his blood pressure is much better, he is getting his hemodialysis, he is planning to hopefully get out of the hospital in the next 24 hours if you get the results of the culture, patient had failed outpatient treatment with Bactrim as well as doxycycline, he does have Enterobacter on the last culture, we will continue current IV antibiotic as planned by ID Avycaz 2.5 g IV piggyback daily. REVIEW OF SYSTEMS: Constitutional: No documented fever, no chills, no night sweats. Significant weight change. Generalized weakness, fatigue or lethargy. No daytime sleepiness. EENT: No headache. Patient is legally blind, positive for loss of vision. No loss of Hearing, no ringing in the ears, no dizziness. No nasal drainage or congestion. No epistaxis. No sore throat. Lungs: Positive for shortness of breath, no cough, no sputum production. No wheezing. Reports dyspnea with activity. Cardiovascular: Positive for chest pain, no lower extremity edema. No palpitations. No paroxysmal nocturnal dyspnea. No orthopnea. No lightheadedness or dizziness. No syncopal episodes. Abdominal: Reports abdominal pain. Positive for nausea, vomiting. No diarrhea. Positive for constipation. No bloody stool reports loss of appetite. Genitourinary: No dysuria, increased frequency, urgency. No urinary retention. Musculoskeletal: No myalgias. No muscle weakness, no gait dysfunction, no frequent falls. No back pain. No neck pain. Integumentary: No wounds, no lesions. No rash or pruritus. No unusual bruising. No change in hair or nails. Neurologic: No aphasia. No facial droop. No change in mentation. No head injury. No headache. No paralysis. Positive for paresthesia due to diabetic polyneuropathy Psychiatric: Positive for depression. No anxiety. No mood swings. Endocrine: Positive for abnormal blood sugars. Significant weight change. PHYSICAL EXAMINATION: General: 58-year-old male laying down in bed in no apparent distress. HEENT: Head is atraumatic, normocephalic, pupils were equal round reactive to light and recommendation, extraocular muscle movement were intact, sclera nonicteric, conjunctivae were pale, mucous membranes of the mouth are somewhat dry. Neck: Supple, no JVP, normal carotid upstroke bilaterally, no lymphadenopathy. Chest: Decreased breath sounds at the bases, few rhonchi, no expiratory wheezes, no chest wall tenderness, no intercostal retractions. Heart: First heart sound is normal, second heart sounds normal systolic ejection murmur 2/6 located in the left sternal border. Abdomen: Soft, mild tenderness in the epigastric as well as left lower quadrant mildly distended, positive bowel sounds. Extremities: There is no edema no calf tenderness DP +2 bilaterally. Neurologic examination: Patient is awake alert and oriented x3, cranial nerves II-12 appear grossly intact, left-sided weakness that has been chronic. ASSESSMENT AND PLAN: 1. Enterobacter UTI due to chronic indwelling Garcia catheterization continue patient on Avycaz 2-1/2 g IV piggyback daily, awaiting the final result of the culture still showing gram-negative bacilli, Garcia catheter has been changed, urology consultation and infectious disease consultation appreciated. 2. End-stage renal disease on hemodialysis Thursday and Thursday. Consult nephrology for hemodialysis ordered. 3. Generalized weakness likely related to poor oral intake as well as worsening anemia. Continue treatment as in previous paragraphs. 4. Coronary artery disease status post recent heart catheterization 06/17/2024 that showed stable disease with patent stented arteries of the LAD and LCx. Continue patient on metoprolol ER 50 mg orally once every day, isosorbide mononitrate 30 mg orally once every day, hydralazine 50 mg orally 3 times every day, atorvastatin 80 mg once every day, ranolazine 500 mg orally twice every day, continue aspirin and Plavix 5. Hypertension and hypertensive cardiovascular disease. Continue patient on metoprolol ER 50 mg once every day, hydralazine 50 mg orally 3 times every day, losartan 25 mg once every day. 6. Mixed hyperlipidemia. Continue patient on atorvastatin 80 mg once every day, monitor the patient lipid panel, keep LDL 55 7. PAD. Stable at this time. Continue atorvastatin for secondary prevention. 8. Diabetes mellitus type 2 . Continue patient on Levemir 17 units at bedtime along with 9 units before each meal 3 times every day, monitor the patient blood sugar before each meal and bedtime. 9. History of CVA in the past with left-sided weakness and recurrent TIA. Continue patient on atorvastatin 80 mg once every day, continue patient on Plavix 75 mg once every day as well as aspirin 80 mg every day. 10. Enlarged prostate with urinary retention. Continue Flomax 0.4 mg orally twice every day. 11. History of gout. Continue patient on allopurinol 100 mg once every day. 12. History of anxiety and depressive disorder. Continue citalopram 60 mg orally once every day. 13. Anemia multifactorial monitor the patient hemoglobin very closely, transfuse for hemoglobin less than 7. 14. Observation 15. Full code Objective - Vital Signs Vital signs: Vital Signs Temp 98.0 F 08/24/24 14:05 Pulse 57 L 08/24/24 14:05 Resp 18 08/24/24 14:05 BP 134/68 08/24/24 14:05 Pulse Ox 99 08/24/24 14:05 FiO2 Intake & Output 08/23/24 08/24/24 08/24/24 18:59 06:59 18:59 Output Total 400 Balance -400 Weight 80.286 kg Output: Urine 400 Coude 400 - Labs CBC & Chem 7: 08/25/24 03:18 08/25/24 03:18 Labs: Abnormal Lab Results - Last 24 Hours (Table) 08/23/24 08/23/24 08/24/24 Range/Units 21:25 23:02 06:36 RBC (4.40-5.60) X 10*6/uL Hgb (13.0-17.0) g/dL Hct (39.6-50.0) % MPV (9.5-12.2) FL BUN 41.0 H (9.0-27.0) mg/dL Creatinine 5.5 H (0.6-1.5) mg/dL Est GFR (CKD-EPI) 11 L (>=60) BUN/Creatinine Ratio 7.45 L (12.00-20.00) Ratio POC Glucose (mg/dL) 122 H 214 H (70-110) mg/dL Calcium 8.3 L (8.7-10.3) mg/dL Total Protein 6.0 L (6.2-8.2) g/dL 08/24/24 Range/Units 06:36 RBC 2.57 L (4.40-5.60) X 10*6/uL Hgb 7.8 L (13.0-17.0) g/dL Hct 23.9 L (39.6-50.0) % MPV 8.7 L (9.5-12.2) FL BUN (9.0-27.0) mg/dL Creatinine (0.6-1.5) mg/dL Est GFR (CKD-EPI) (>=60) BUN/Creatinine Ratio (12.00-20.00) Ratio POC Glucose (mg/dL) (70-110) mg/dL Calcium (8.7-10.3) mg/dL Total Protein (6.2-8.2) g/dL
--- NOTE | 2024-08-25 15:26 | P.PN ---
Subjective Progress Note Date: 08/25/24 Principal diagnosis: Reason for follow-up is a UTI Patient is a 58-year-old male with a past medical history significant for hypertension hyperlipidemia reflux diabetes mellitus CVA TIA coronary artery disease end-stage renal disease on dialysis patient still makes urine and did have indwelling Garcia catheter with recent outpatient culture positive for drug-resistant Enterobacter presented to hospital with nausea and vomiting and concern for failing outpatient therapy. On today's evaluation that is 08/25/2024,the patient remains to be afebrile, patient is on room air not requiring supplemental oxygen and denies any shortness of breath no chest pain or cough.Patient denies having any nausea or vomiting, no abdominal pain and no diarrhea has been reported. Patient white count is 5.6, creatinine is 4.22 urine is now growing a gram- negative CT abdominal pelvis did not mention any acute findings Objective - Vital Signs Vital signs: Vital Signs Temp 98.0 F 08/25/24 07:00 Pulse 62 08/25/24 13:56 Resp 16 08/25/24 13:56 BP 134/71 08/25/24 13:56 Pulse Ox 99 08/25/24 13:56 FiO2 Intake & Output 08/24/24 08/25/24 08/25/24 18:59 06:59 18:59 Intake Total 591 1698 Output Total 2400 Balance 591 -702 Weight 80.286 kg Intake: Oral 591 1298 Hemodialysis 400 Output: Hemodialysis 1400 Hemodialysis Net Amount 1000 Other: Voiding Method Indwelling Catheter Indwelling Catheter # Bowel Movements 0 - Exam GENERAL DESCRIPTION: Middle-age male lying in bed in no distress RESPIRATORY SYSTEM: Unlabored breathing , decreased breath sounds at bases HEART: S1 S2 regular rate and rhythm , ABDOMEN: Soft , no tenderness EXTREMITIES: No edema feet - Labs CBC & Chem 7: 08/25/24 03:18 08/25/24 03:18 Labs: Abnormal Lab Results - Last 24 Hours (Table) 08/24/24 08/25/24 08/25/24 Range/Units 20:52 03:18 03:18 RBC 2.83 L (4.30-5.90) m/uL Hgb 8.5 L (13.0-17.5) gm/dL Hct 26.0 L (39.0-53.0) % Plt Count 140 L (150-450) k/uL Sodium 129 L (137-145) mmol/L Chloride 89 L (98-107) mmol/L Carbon Dioxide 31 H (22-30) mmol/L BUN 22 H (9-20) mg/dL Creatinine 4.22 H (0.66-1.25) mg/dL Glucose 222 H (74-99) mg/dL POC Glucose (mg/dL) 121 H (70-110) mg/dL Calcium 8.0 L (8.4-10.2) mg/dL 08/25/24 08/25/24 Range/Units 06:21 11:54 RBC (4.30-5.90) m/uL Hgb (13.0-17.5) gm/dL Hct (39.0-53.0) % Plt Count (150-450) k/uL Sodium (137-145) mmol/L Chloride (98-107) mmol/L Carbon Dioxide (22-30) mmol/L BUN (9-20) mg/dL Creatinine (0.66-1.25) mg/dL Glucose (74-99) mg/dL POC Glucose (mg/dL) 170 H 234 H (70-110) mg/dL Calcium (8.4-10.2) mg/dL Microbiology - Last 24 Hours (Table) 08/23/24 17:50 Urine Culture - Preliminary Urine,Catheterized Gram Neg Bacilli Assessment and Plan (1) Nausea & vomiting Current Visit: Yes Status: Acute Code(s): R11.2 - NAUSEA WITH VOMITING, UNSPECIFIED SNOMED Code(s): 89370263 (2) UTI (urinary tract infection) Current Visit: Yes Status: Acute Code(s): N39.0 - URINARY TRACT INFECTION, SITE NOT SPECIFIED SNOMED Code(s): 19584541 Plan: 1-patient presented hospital with nausea vomiting lower abdominal discomfort in this patient who recently did have a urine culture positive on 08/14/2024 with a multiresistant Enterobacter with the patient and also wanted to Bactrim, tetracycline now with persistent symptoms however the UA has not been significantly positive with a question of possible other abdominal source for his symptoms. 2-patient did have CT of abdominal pelvis did not show any colitis abscess or hydronephrosis 3-urine is growing gram-negative bacilli, while continue with empiric Avycaz while waiting for the culture to finalize recommend to change his Garcia catheter Dictation was produced using [employer] software. please excuse any grammatical, word or spelling errors.
[2024-08-25 17:51] LABS: Glucose,Whole Blood 122 mg/dL (70-110)
[2024-08-25] MEDS: HEPARIN SODIUM,PORCINE 5,000 UNIT/ML 1 ML VIAL SQ SCH (20:12)
[2024-08-25 20:47] LABS: Glucose,Whole Blood 196 mg/dL (70-110)
[2024-08-26 03:43] LABS: Amorphous Sediment,Urine Rare /hpf; Appearance,Urine Cloudy (Clear); Bacteria,Urine Occasional /hpf; Bilirubin,Urine Negative (Negative); Blood,Urine Negative (Negative); Color,Urine Yellow; Glucose,Urine (UA) Negative (Negative); Hyaline Casts,Urine 162 /lpf (0-2); Ketones,Urine Negative (Negative); Leukocyte Esterase,Urine Large (Negative); Mucus,Urine Rare /hpf; Nitrite,Urine Negative (Negative); PH, Urine 5.5 (5.0-8.0); Protein,Urine 1+ (Negative); RBC,Urine 9 /hpf (0-5); Specific Gravity,Urine 1.014 (1.001-1.035); Squamous Epithelial Cell,Urine <1 /hpf (0-4); Urobilinogen,Urine <2.0 mg/dL (<2.0); WBC,Urine 38 /hpf (0-5)
[2024-08-26 06:35] LABS: Glucose,Whole Blood 95 mg/dL (70-110)
[2024-08-26 08:22] LABS: Basophils # (A) 0.03 X 10*3/uL (0.00-0.10); Basophils % (A) 0.4 %; Eosinophils # (A) 0.11 X 10*3/uL (0.04-0.35); Eosinophils % (A) 1.6 %; HCT 23.9 % (39.6-50.0); HGB 7.9 g/dL (13.0-17.0); Lymphocytes % (A) 20.9 %; MCH 30.3 pg (27.0-32.0); MCHC 33.1 g/dL (32.0-37.0); MCV 91.6 FL (80.0-97.0); Monocytes # (A) 0.62 X 10*3/uL (0.20-1.00); Monocytes % (A) 9.3 %; NRBC Per 100 WBC 0 X 10*3/uL (0.00-0.01); Neutrophils # (A) 4.51 X 10*3/uL (1.80-7.70); Neutrophils % (A) 67.5 %; Platelet Count 117 X 10*3/uL (140-440); RBC 2.61 X 10*6/uL (4.40-5.60); RDW 14.2 % (11.5-14.5); WBC 6.69 X 10*3/uL (4.50-10.00)
[2024-08-26 08:27] LABS: ALT 24 U/L (10-49); AST 22 U/L (14-35); Albumin/Globulin Ratio 1.67 Ratio (1.60-3.17); Alkaline Phosphatase 99 U/L (41-126); BUN/Creat Ratio 4.64 Ratio (12.00-20.00); Blood Urea Nitrogen 19.5 mg/dL (9.0-27.0); Carbon Dioxide 28.6 mmol/L (21.6-31.8); Chloride 94 mmol/L (96-109); Globulin 2.4 g/dL (1.6-3.3); Glucose 94 mg/dL (70-110); Potassium 4.6 mmol/L (3.5-5.5); Sodium 133 mmol/L (135-145); Total Bilirubin 0.3 mg/dL (0.3-1.2); Total Protein 6.4 g/dL (6.2-8.2)
--- NOTE | 2024-08-26 10:49 | P.PN ---
Subjective Progress Note Date: 08/26/24 Patient seen for follow-up for ESRD on hemodialysis. Underwent hemodialysis yesterday, 1 L were removed. He will undergo hemodialysis tomorrow if patient remains in the hospital Urine culture preliminarily positive for gram-negative bacilli; started on ceftazidime/avibactam 0.94 g daily as per infectious disease No active complaints at this time. Serum potassium this morning 4.6, sodium 133. Patient does not appear to be fluid overloaded. Objective - Vital Signs Vital signs: Vital Signs Temp 97.7 F 08/26/24 07:00 Pulse 62 08/26/24 07:00 Resp 16 08/26/24 07:00 BP 150/69 08/26/24 07:00 Pulse Ox 100 08/26/24 07:00 FiO2 Intake & Output 08/25/24 08/26/24 08/26/24 18:59 06:59 18:59 Intake Total 1698 118 Output Total 2400 70 Balance -702 -70 118 Intake: Oral 1298 118 Hemodialysis 400 Output: Urine 70 Hemodialysis 1400 Hemodialysis Net Amount 1000 Other: Voiding Method Indwelling Catheter Indwelling Catheter - Exam Patient is awake, comfortable, no acute distress. Bustos catheter in place. Heart: S1 and S2 heard Lungs: Bilateral breath sounds are heard Abdomen: Soft and nontender Lower extremities: No edema [employer]: grossly intact - Labs CBC & Chem 7: 08/26/24 03:20 08/26/24 03:20 Labs: Abnormal Lab Results - Last 24 Hours (Table) 08/25/24 08/25/24 08/25/24 Range/Units 11:54 17:49 20:45 RBC (4.40-5.60) X 10*6/uL Hgb (13.0-17.0) g/dL Hct (39.6-50.0) % Plt Count (140-440) X 10*3/uL MPV (9.5-12.2) FL Sodium (135-145) mmol/L Chloride (96-109) mmol/L Creatinine (0.6-1.5) mg/dL Est GFR (CKD-EPI) (>=60) BUN/Creatinine Ratio (12.00-20.00) Ratio POC Glucose (mg/dL) 234 H 122 H 196 H (70-110) mg/dL Calcium (8.7-10.3) mg/dL Urine Protein (Negative) Ur Leukocyte Esterase (Negative) Urine RBC (0-5) /hpf Urine WBC (0-5) /hpf Amorphous Sediment (None) /hpf Urine Bacteria (None) /hpf Hyaline Casts (0-2) /lpf Urine Mucus (None) /hpf 08/26/24 08/26/24 08/26/24 Range/Units 02:46 03:20 03:20 RBC 2.61 L (4.40-5.60) X 10*6/uL Hgb 7.9 L (13.0-17.0) g/dL Hct 23.9 L (39.6-50.0) % Plt Count 117 L (140-440) X 10*3/uL MPV 9.0 L (9.5-12.2) FL Sodium 133 L (135-145) mmol/L Chloride 94 L (96-109) mmol/L Creatinine 4.2 H (0.6-1.5) mg/dL Est GFR (CKD-EPI) 16 L (>=60) BUN/Creatinine Ratio 4.64 L (12.00-20.00) Ratio POC Glucose (mg/dL) (70-110) mg/dL Calcium 8.0 L (8.7-10.3) mg/dL Urine Protein 1+ H (Negative) Ur Leukocyte Esterase Large H (Negative) Urine RBC 9 H (0-5) /hpf Urine WBC 38 H (0-5) /hpf Amorphous Sediment Rare H (None) /hpf Urine Bacteria Occasional H (None) /hpf Hyaline Casts 162 H (0-2) /lpf Urine Mucus Rare H (None) /hpf Microbiology - Last 24 Hours (Table) 08/23/24 17:50 Urine Culture - Preliminary Urine,Catheterized Gram Neg Bacilli Assessment and Plan Assessment: #ESRD on hemodialysis on T/T/S schedule #Recent UTI, N/V possibly related to antibiotic use #CKD mineral bone disorder, maintained on Tums as phosphate binder, Calcium this morning 8.0 #Anemia of CKD, hemoglobin this morning 7.9 #Chronic indwelling bustos catheter, secondary to hypotonic neurogenic bladder, follows with urology; maintained on Flomax #CAD w/ history of coronary stents Plan: -Hemodialysis scheduled for tomorrow if he remains inpatient -Monitor BMP in the morning Continue Aranesp 60 mg once weekly -UA showed pH 8.5, protein 3+, blood large amounts, >182 RBCs; Bustos specimen, no evidence of active UTI; urine culture preliminarily positive for gram- negative bacilli -initiated on Avycaz 0.94 g daily -Repeat UA showed pH 7.0, 1+ protein, small amount of urine leukocyte esterase, and 11 urine WBCs -Stable for discharge from nephrology standpoint; continue his usual T/T/S dialysis schedule. Agree with resident's findings, assessment and plan.
[2024-08-26 12:03] LABS: Glucose,Whole Blood 120 mg/dL (70-110)
--- NOTE | 2024-08-26 14:49 | P.PN ---
Subjective Progress Note Date: 08/26/24 Principal diagnosis: Reason for follow-up is a UTI Patient is a 58-year-old male with a past medical history significant for hypertension hyperlipidemia reflux diabetes mellitus CVA TIA coronary artery disease end-stage renal disease on dialysis patient still makes urine and did have indwelling Garcia catheter with recent outpatient culture positive for drug-resistant Enterobacter presented to hospital with nausea and vomiting and concern for failing outpatient therapy. On today's evaluation that is 08/26/2024, the patient continues to be afebrile, the patient is on room air and breathing comfortably, the Pt denies having any chest pain or cough, the patient denies having any abdominal pain did have some nausea but no vomiting Garcia catheter has been changed. White count 6.69, creatinine is 4.2 repeat UA still positive urine has been finalized with drug-resistant Enterobacter Objective - Vital Signs Vital signs: Vital Signs Temp 97.7 F 08/26/24 07:00 Pulse 62 08/26/24 07:00 Resp 16 08/26/24 07:00 BP 150/69 08/26/24 07:00 Pulse Ox 100 08/26/24 07:00 FiO2 Intake & Output 08/25/24 08/26/24 08/26/24 18:59 06:59 18:59 Intake Total 1698 118 Output Total 2400 70 Balance -702 -70 118 Intake: Oral 1298 118 Hemodialysis 400 Output: Urine 70 Hemodialysis 1400 Hemodialysis Net Amount 1000 Other: Voiding Method Indwelling Catheter Indwelling Catheter Indwelling Catheter - Exam GENERAL DESCRIPTION: Middle-age male lying in bed in no distress RESPIRATORY SYSTEM: Unlabored breathing , decreased breath sounds at bases HEART: S1 S2 regular rate and rhythm , ABDOMEN: Soft , no tenderness EXTREMITIES: No edema feet - Labs CBC & Chem 7: 08/26/24 03:20 08/26/24 03:20 Labs: Abnormal Lab Results - Last 24 Hours (Table) 08/25/24 08/25/24 08/25/24 Range/Units 11:54 17:49 20:45 RBC (4.40-5.60) X 10*6/uL Hgb (13.0-17.0) g/dL Hct (39.6-50.0) % Plt Count (140-440) X 10*3/uL MPV (9.5-12.2) FL Sodium (135-145) mmol/L Chloride (96-109) mmol/L Creatinine (0.6-1.5) mg/dL Est GFR (CKD-EPI) (>=60) BUN/Creatinine Ratio (12.00-20.00) Ratio POC Glucose (mg/dL) 234 H 122 H 196 H (70-110) mg/dL Calcium (8.7-10.3) mg/dL Urine Protein (Negative) Ur Leukocyte Esterase (Negative) Urine RBC (0-5) /hpf Urine WBC (0-5) /hpf Amorphous Sediment (None) /hpf Urine Bacteria (None) /hpf Hyaline Casts (0-2) /lpf Urine Mucus (None) /hpf 08/26/24 08/26/24 08/26/24 Range/Units 02:46 03:20 03:20 RBC 2.61 L (4.40-5.60) X 10*6/uL Hgb 7.9 L (13.0-17.0) g/dL Hct 23.9 L (39.6-50.0) % Plt Count 117 L (140-440) X 10*3/uL MPV 9.0 L (9.5-12.2) FL Sodium 133 L (135-145) mmol/L Chloride 94 L (96-109) mmol/L Creatinine 4.2 H (0.6-1.5) mg/dL Est GFR (CKD-EPI) 16 L (>=60) BUN/Creatinine Ratio 4.64 L (12.00-20.00) Ratio POC Glucose (mg/dL) (70-110) mg/dL Calcium 8.0 L (8.7-10.3) mg/dL Urine Protein 1+ H (Negative) Ur Leukocyte Esterase Large H (Negative) Urine RBC 9 H (0-5) /hpf Urine WBC 38 H (0-5) /hpf Amorphous Sediment Rare H (None) /hpf Urine Bacteria Occasional H (None) /hpf Hyaline Casts 162 H (0-2) /lpf Urine Mucus Rare H (None) /hpf Microbiology - Last 24 Hours (Table) 08/23/24 17:50 Urine Culture - Preliminary Urine,Catheterized Gram Neg Bacilli Assessment and Plan (1) Nausea & vomiting Current Visit: Yes Status: Acute Code(s): R11.2 - NAUSEA WITH VOMITING, UNSPECIFIED SNOMED Code(s): 59794560 (2) UTI (urinary tract infection) Current Visit: Yes Status: Acute Code(s): N39.0 - URINARY TRACT INFECTION, SITE NOT SPECIFIED SNOMED Code(s): 80353700 Plan: 1-patient presented hospital with nausea vomiting lower abdominal discomfort in this patient who recently did have a urine culture positive on 08/14/2024 with a multiresistant Enterobacter with the patient and also wanted to Bactrim, tetracycline now with persistent symptoms however the UA has not been significantly positive with a question of possible other abdominal source for his symptoms. 2-patient did have CT of abdominal pelvis did not show any colitis abscess or hydronephrosis 3-urine is growing multidrug-resistant Enterobacter sensitive to Avycaz which will be continued recommending a total of 7-day course of antibiotic should be enough Dictation was produced using [employer] dictation software. please excuse any grammatical, word or spelling errors. Time with Patient: Less than 30
[2024-08-26 17:17] LABS: Glucose,Whole Blood 145 mg/dL (70-110)
[2024-08-26] MEDS: OXYMETAZOLINE 0.05% NASL SPRAY 1 SPRAY BOTTLE NASAL PRN (18:25)
[2024-08-26 19:54] LABS: Glucose,Whole Blood 89 mg/dL (70-110)
[2024-08-27 05:50] LABS: Glucose,Whole Blood 132 mg/dL (70-110)
--- NOTE | 2024-08-27 09:26 | P.PN ---
Subjective Progress Note Date: 08/26/24 HISTORY OF PRESENT ILLNESS: This is a 58-year-old male with a previous medical history significant for coronary artery disease status post myocardial infarction back in 2014 and in 2022 status post PCI of the LAD as well as LCx, last stent placed was in 2022, hypertension and hypertensive cardiovascular disease, mixed hyperlipidemia, diabetes mellitus type 2, legally blind, history of ischemic cerebrovascular accident in the past with left-sided weakness, history of recurrent TIA, history of enlarged prostate, history of anxiety and depressive disorder, history of end-stage renal disease on hemodialysis Thursday and Thursday via fistula in the left upper extremity, patient was recently hospitalized at [facility] initially on June 16, 2024 after he was admitted for chest pain, at that time he underwent left heart catheterization bilaterally that showed normal LV diastolic and pressure, it did show a normal left main artery, LAD was normal with minimal stenosis in the midportion to the distal portion about 60%, the left circumflex artery was patent where the stents were placed, minimal irregularities, the RCA was totally occluded in the proximal portion, there was collateral from the LAD to distal RCA, patient then was discharged from the hospital, patient has been following up with me as an outpatient in a regular basis, apparently yesterday came to the office with increased abdominal pain associated with intractable nausea and vomiting not able to keep anything down, I have seen the patient in my office twice in the last week and he has been complaining of increased abdominal pain associated with intractable nausea and vomiting not able to keep anything down, patient was sent to the emergency department for evaluation initially was placed by Dr. Chahal on Bactrim for Enterobacter however he was not able to tolerate the antibiotic very well, therefore he came to my office and put him on doxycycline 100 mg orally twice every day which she could not tolerate either he was sent to the ER for treatment of Enterobacter UTI due to Garcia catheterization and he was started on Fortaz and he was admitted to hospital for evaluation patient has missed his dialysis today his last dialysis was on Thursday, because of that he was admitted to the hospital for evaluation by infectious disease, urology as well as nephrology. 08/24: Patient is laying down in bed in no apparent distress, he is drinking the oral contrast for his CT scan of the abdomen pelvis that ordered with oral contrast by infectious ease, he denies any chest pain, he has no shortness of breath, his blood pressure is much better, he is getting his hemodialysis, he is planning to hopefully get out of the hospital in the next 24 hours if you get the results of the culture, patient had failed outpatient treatment with Bactrim as well as doxycycline, he does have Enterobacter on the last culture, we will continue current IV antibiotic as planned by ID Avycaz 2.5 g IV piggyback daily. 08/25: Patient is feeling better today, he had an episode of nausea and vomiting CAT scan of the abdomen/pelvis that was done did not show evidence of acute colitis or any hydronephrosis did show evidence of constipation, continue current bowel care, continue with dialysis as indicated, urine culture showing gram-negative bacilli, we will continue with Avycaz 2.5 g piggyback every 24 hours, infectious disease following, Garcia catheter has been changed, patient will likely be discharged home in the next 24 hours if urine culture is back. 08/26: Patient is laying down in bed in no apparent distress, he did not have any fever or chills at this time, he has been tolerating his IV antibiotic Avycaz 2.5 g IV piggyback every 24 hours, that is sensitive the urine culture showing Enterobacter Conway that is resistant to a lot of antibiotic, and the patient had failed outpatient treatment with Bactrim as well as doxycycline, due to intractable nausea and vomiting, therefore will continue patient on IV antibiotic for a total of 7 days, patient will likely require to finish 7-day course of IV antibiotic. REVIEW OF SYSTEMS: Constitutional: No documented fever, no chills, no night sweats. Significant weight change. Generalized weakness, fatigue or lethargy. No daytime sleepiness. EENT: No headache. Patient is legally blind, positive for loss of vision. No loss of Hearing, no ringing in the ears, no dizziness. No nasal drainage or congestion. No epistaxis. No sore throat. Lungs: Positive for shortness of breath, no cough, no sputum production. No wheezing. Reports dyspnea with activity. Cardiovascular: Positive for chest pain, no lower extremity edema. No palpitations. No paroxysmal nocturnal dyspnea. No orthopnea. No lightheadedness or dizziness. No syncopal episodes. Abdominal: Reports abdominal pain. Positive for nausea, vomiting. No diarrhea. Positive for constipation. No bloody stool reports loss of appetite. Genitourinary: No dysuria, increased frequency, urgency. No urinary retention. Musculoskeletal: No myalgias. No muscle weakness, no gait dysfunction, no frequent falls. No back pain. No neck pain. Integumentary: No wounds, no lesions. No rash or pruritus. No unusual bruising. No change in hair or nails. Neurologic: No aphasia. No facial droop. No change in mentation. No head injury. No headache. No paralysis. Positive for paresthesia due to diabetic polyneuropathy Psychiatric: Positive for depression. No anxiety. No mood swings. Endocrine: Positive for abnormal blood sugars. Significant weight change. PHYSICAL EXAMINATION: General: 58-year-old male laying down in bed in no apparent distress. HEENT: Head is atraumatic, normocephalic, pupils were equal round reactive to light and recommendation, extraocular muscle movement were intact, sclera nonicteric, conjunctivae were pale, mucous membranes of the mouth are somewhat dry. Neck: Supple, no JVP, normal carotid upstroke bilaterally, no lymphadenopathy. Chest: Decreased breath sounds at the bases, few rhonchi, no expiratory wheezes, no chest wall tenderness, no intercostal retractions. Heart: First heart sound is normal, second heart sounds normal systolic ejection murmur 2/6 located in the left sternal border. Abdomen: Soft, mild tenderness in the epigastric as well as left lower quadrant mildly distended, positive bowel sounds. Extremities: There is no edema no calf tenderness DP +2 bilaterally. Neurologic examination: Patient is awake alert and oriented x3, cranial nerves II-12 appear grossly intact, left-sided weakness that has been chronic. ASSESSMENT AND PLAN: 1. Enterobacter cloacae UTI due to chronic indwelling Garcia catheterization continue patient on Avycaz 2-1/2 g IV piggyback daily the urine culture is sensitive to the same antibiotic we will continue the same for 7 days. 2. End-stage renal disease on hemodialysis Thursday and Thursday. Consult nephrology for hemodialysis ordered. 3. Generalized weakness likely related to poor oral intake as well as worsening anemia. Continue treatment as in previous paragraphs. 4. Coronary artery disease status post recent heart catheterization 06/17/2024 that showed stable disease with patent stented arteries of the LAD and LCx. Continue patient on metoprolol ER 50 mg orally once every day, isosorbide mononitrate 30 mg orally once every day, hydralazine 50 mg orally 3 times every day, atorvastatin 80 mg once every day, ranolazine 500 mg orally twice every day, continue aspirin and Plavix 5. Hypertension and hypertensive cardiovascular disease. Continue patient on metoprolol ER 50 mg once every day, hydralazine 50 mg orally 3 times every day, losartan 25 mg once every day. 6. Mixed hyperlipidemia. Continue patient on atorvastatin 80 mg once every day, monitor the patient lipid panel, keep LDL 55 7. PAD. Stable at this time. Continue atorvastatin for secondary prevention. 8. Diabetes mellitus type 2 . Continue patient on Levemir 17 units at bedtime along with 9 units before each meal 3 times every day, monitor the patient blood sugar before each meal and bedtime. 9. History of CVA in the past with left-sided weakness and recurrent TIA. Continue patient on atorvastatin 80 mg once every day, continue patient on Plavix 75 mg once every day as well as aspirin 80 mg every day. 10. Enlarged prostate with urinary retention. Continue Flomax 0.4 mg orally twice every day. 11. History of gout. Continue patient on allopurinol 100 mg once every day. 12. History of anxiety and depressive disorder. Continue citalopram 60 mg orally once every day. 13. Anemia multifactorial monitor the patient hemoglobin very closely, t ransfuse for hemoglobin less than 7. 14. GI prophylaxis. Continue patient on Protonix 40 mg orally twice every day. 15. DVT prophylaxis. Start the patient on heparin 5000 subcutaneous every 12 hours. 16. Patient will stay in the hospital for 7-day course of IV antibiotic otherwise he will have to have an IV antibiotic as an outpatient which I found him possible since the patient is legally blind and he does not have any help at home. Objective - Vital Signs Vital signs: Vital Signs Temp 98.2 F 08/26/24 14:30 Pulse 61 08/26/24 14:30 Resp 16 08/26/24 14:30 BP 144/63 08/26/24 14:30 Pulse Ox 100 08/26/24 14:30 FiO2 Intake & Output 08/25/24 08/26/24 08/26/24 18:59 06:59 18:59 Intake Total 1698 368 Output Total 2400 70 Balance -702 -70 368 Intake: Oral 1298 368 Hemodialysis 400 Output: Urine 70 Hemodialysis 1400 Hemodialysis Net Amount 1000 Other: Voiding Method Indwelling Catheter Indwelling Catheter Indwelling Catheter - Labs CBC & Chem 7: 08/26/24 03:20 08/26/24 03:20 Labs: Abnormal Lab Results - Last 24 Hours (Table) 08/25/24 08/25/24 08/26/24 Range/Units 17:49 20:45 02:46 RBC (4.40-5.60) X 10*6/uL Hgb (13.0-17.0) g/dL Hct (39.6-50.0) % Plt Count (140-440) X 10*3/uL MPV (9.5-12.2) FL Sodium (135-145) mmol/L Chloride (96-109) mmol/L Creatinine (0.6-1.5) mg/dL Est GFR (CKD-EPI) (>=60) BUN/Creatinine Ratio (12.00-20.00) Ratio POC Glucose (mg/dL) 122 H 196 H (70-110) mg/dL Calcium (8.7-10.3) mg/dL Urine Protein 1+ H (Negative) Ur Leukocyte Esterase Large H (Negative) Urine RBC 9 H (0-5) /hpf Urine WBC 38 H (0-5) /hpf Amorphous Sediment Rare H (None) /hpf Urine Bacteria Occasional H (None) /hpf Hyaline Casts 162 H (0-2) /lpf Urine Mucus Rare H (None) /hpf 08/26/24 08/26/24 08/26/24 Range/Units 03:20 03:20 12:02 RBC 2.61 L (4.40-5.60) X 10*6/uL Hgb 7.9 L (13.0-17.0) g/dL Hct 23.9 L (39.6-50.0) % Plt Count 117 L (140-440) X 10*3/uL MPV 9.0 L (9.5-12.2) FL Sodium 133 L (135-145) mmol/L Chloride 94 L (96-109) mmol/L Creatinine 4.2 H (0.6-1.5) mg/dL Est GFR (CKD-EPI) 16 L (>=60) BUN/Creatinine Ratio 4.64 L (12.00-20.00) Ratio POC Glucose (mg/dL) 120 H (70-110) mg/dL Calcium 8.0 L (8.7-10.3) mg/dL Urine Protein (Negative) Ur Leukocyte Esterase (Negative) Urine RBC (0-5) /hpf Urine WBC (0-5) /hpf Amorphous Sediment (None) /hpf Urine Bacteria (None) /hpf Hyaline Casts (0-2) /lpf Urine Mucus (None) /hpf Microbiology - Last 24 Hours (Table) 08/23/24 17:50 Urine Culture - Final Urine,Catheterized Enterobacter cloacae
--- NOTE | 2024-08-27 09:26 | P.PN ---
Subjective Progress Note Date: 08/25/24 HISTORY OF PRESENT ILLNESS: This is a 58-year-old male with a previous medical history significant for coronary artery disease status post myocardial infarction back in 2014 and in 2022 status post PCI of the LAD as well as LCx, last stent placed was in 2022, hypertension and hypertensive cardiovascular disease, mixed hyperlipidemia, diabetes mellitus type 2, legally blind, history of ischemic cerebrovascular accident in the past with left-sided weakness, history of recurrent TIA, history of enlarged prostate, history of anxiety and depressive disorder, history of end-stage renal disease on hemodialysis Thursday and Thursday via fistula in the left upper extremity, patient was recently hospitalized at [facility] initially on June 16, 2024 after he was admitted for chest pain, at that time he underwent left heart catheterization bilaterally that showed normal LV diastolic and pressure, it did show a normal left main artery, LAD was normal with minimal stenosis in the midportion to the distal portion about 60%, the left circumflex artery was patent where the stents were placed, minimal irregularities, the RCA was totally occluded in the proximal portion, there was collateral from the LAD to distal RCA, patient then was discharged from the hospital, patient has been following up with me as an outpatient in a regular basis, apparently yesterday came to the office with increased abdominal pain associated with intractable nausea and vomiting not able to keep anything down, I have seen the patient in my office twice in the last week and he has been complaining of increased abdominal pain associated with intractable nausea and vomiting not able to keep anything down, patient was sent to the emergency department for evaluation initially was placed by Dr. Chahal on Bactrim for Enterobacter however he was not able to tolerate the antibiotic very well, therefore he came to my office and put him on doxycycline 100 mg orally twice every day which she could not tolerate either he was sent to the ER for treatment of Enterobacter UTI due to Garcia catheterization and he was started on Fortaz and he was admitted to hospital for evaluation patient has missed his dialysis today his last dialysis was on Thursday, because of that he was admitted to the hospital for evaluation by infectious disease, urology as well as nephrology. 08/24: Patient is laying down in bed in no apparent distress, he is drinking the oral contrast for his CT scan of the abdomen pelvis that ordered with oral contrast by infectious ease, he denies any chest pain, he has no shortness of breath, his blood pressure is much better, he is getting his hemodialysis, he is planning to hopefully get out of the hospital in the next 24 hours if you get the results of the culture, patient had failed outpatient treatment with Bactrim as well as doxycycline, he does have Enterobacter on the last culture, we will continue current IV antibiotic as planned by ID Avycaz 2.5 g IV piggyback daily. 08/25: Patient is feeling better today, he had an episode of nausea and vomiting CAT scan of the abdomen/pelvis that was done did not show evidence of acute colitis or any hydronephrosis did show evidence of constipation, continue current bowel care, continue with dialysis as indicated, urine culture showing gram-negative bacilli, we will continue with Avycaz 2.5 g piggyback every 24 hours, infectious disease following, Garcia catheter has been changed, patient will likely be discharged home in the next 24 hours if urine culture is back. REVIEW OF SYSTEMS: Constitutional: No documented fever, no chills, no night sweats. Significant weight change. Generalized weakness, fatigue or lethargy. No daytime sleepiness. EENT: No headache. Patient is legally blind, positive for loss of vision. No loss of Hearing, no ringing in the ears, no dizziness. No nasal drainage or congestion. No epistaxis. No sore throat. Lungs: Positive for shortness of breath, no cough, no sputum production. No wheezing. Reports dyspnea with activity. Cardiovascular: Positive for chest pain, no lower extremity edema. No palpitations. No paroxysmal nocturnal dyspnea. No orthopnea. No lightheadedn ess or dizziness. No syncopal episodes. Abdominal: Reports abdominal pain. Positive for nausea, vomiting. No diarrhea. Positive for constipation. No bloody stool reports loss of appetite. Genitourinary: No dysuria, increased frequency, urgency. No urinary retention. Musculoskeletal: No myalgias. No muscle weakness, no gait dysfunction, no frequent falls. No back pain. No neck pain. Integumentary: No wounds, no lesions. No rash or pruritus. No unusual bruising. No change in hair or nails. Neurologic: No aphasia. No facial droop. No change in mentation. No head injury. No headache. No paralysis. Positive for paresthesia due to diabetic polyneuropathy Psychiatric: Positive for depression. No anxiety. No mood swings. Endocrine: Positive for abnormal blood sugars. Significant weight change. PHYSICAL EXAMINATION: General: 58-year-old male laying down in bed in no apparent distress. HEENT: Head is atraumatic, normocephalic, pupils were equal round reactive to l ight and recommendation, extraocular muscle movement were intact, sclera nonicteric, conjunctivae were pale, mucous membranes of the mouth are somewhat dry. Neck: Supple, no JVP, normal carotid upstroke bilaterally, no lymphadenopathy. Chest: Decreased breath sounds at the bases, few rhonchi, no expiratory wheezes, no chest wall tenderness, no intercostal retractions. Heart: First heart sound is normal, second heart sounds normal systolic ejection murmur 2/6 located in the left sternal border. Abdomen: Soft, mild tenderness in the epigastric as well as left lower quadrant mildly distended, positive bowel sounds. Extremities: There is no edema no calf tenderness DP +2 bilaterally. Neurologic examination: Patient is awake alert and oriented x3, cranial nerves II-12 appear grossly intact, left-sided weakness that has been chronic. ASSESSMENT AND PLAN: 1. Enterobacter UTI due to chronic indwelling Garcia catheterization continue patient on Avycaz 2-1/2 g IV piggyback daily, awaiting the final result of the culture still showing gram-negative bacilli, Garcia catheter has been changed, urology consultation and infectious disease consultation appreciated. 2. End-stage renal disease on hemodialysis Thursday and Thursday. Consult nephrology for hemodialysis ordered. 3. Generalized weakness likely related to poor oral intake as well as worsening anemia. Continue treatment as in previous paragraphs. 4. Coronary artery disease status post recent heart catheterization 06/17/2024 that showed stable disease with patent stented arteries of the LAD and LCx. Continue patient on metoprolol ER 50 mg orally once every day, isosorbide mononitrate 30 mg orally once every day, hydralazine 50 mg orally 3 times every day, atorvastatin 80 mg once every day, ranolazine 500 mg orally twice every day, continue aspirin and Plavix 5. Hypertension and hypertensive cardiovascular disease. Continue patient on metoprolol ER 50 mg once every day, hydralazine 50 mg orally 3 times every day, losartan 25 mg once every day. 6. Mixed hyperlipidemia. Continue patient on atorvastatin 80 mg once every day, monitor the patient lipid panel, keep LDL 55 7. PAD. Stable at this time. Continue atorvastatin for secondary prevention. 8. Diabetes mellitus type 2 . Continue patient on Levemir 17 units at bedtime along with 9 units before each meal 3 times every day, monitor the patient blood sugar before each meal and bedtime. 9. History of CVA in the past with left-sided weakness and recurrent TIA. Continue patient on atorvastatin 80 mg once every day, continue patient on Plavix 75 mg once every day as well as aspirin 80 mg every day. 10. Enlarged prostate with urinary retention. Continue Flomax 0.4 mg orally twice every day. 11. History of gout. Continue patient on allopurinol 100 mg once every day. 12. History of anxiety and depressive disorder. Continue citalopram 60 mg orally once every day. 13. Anemia multifactorial monitor the patient hemoglobin very closely, transfuse for hemoglobin less than 7. 14. GI prophylaxis. Continue patient on Protonix 40 mg orally twice every day. 15. DVT prophylaxis. Start the patient on heparin 5000 subcutaneous every 12 hours. 16. Likely home in the next 24 hours if cultures are back. Objective - Vital Signs Vital signs: Vital Signs Temp 98.0 F 08/25/24 07:00 Pulse 62 08/25/24 13:56 Resp 16 08/25/24 13:56 BP 134/71 08/25/24 13:56 Pulse Ox 99 08/25/24 13:56 FiO2 Intake & Output 08/24/24 08/25/24 08/25/24 18:59 06:59 18:59 Intake Total 591 1580 Output Total 2400 Balance 591 -820 Weight 80.286 kg Intake: Oral 591 1180 Hemodialysis 400 Output: Hemodialysis 1400 Hemodialysis Net Amount 1000 Other: Voiding Method Indwelling Catheter Indwelling Catheter # Bowel Movements 0 - Labs CBC & Chem 7: 08/25/24 03:18 08/25/24 03:18 Labs: Abnormal Lab Results - Last 24 Hours (Table) 08/24/24 08/24/24 08/25/24 Range/Units 13:31 20:52 03:18 RBC 2.83 L (4.30-5.90) m/uL Hgb 8.5 L (13.0-17.5) gm/dL Hct 26.0 L (39.0-53.0) % Plt Count 140 L (150-450) k/uL Sodium (137-145) mmol/L Chloride (98-107) mmol/L Carbon Dioxide (22-30) mmol/L BUN (9-20) mg/dL Creatinine (0.66-1.25) mg/dL Glucose (74-99) mg/dL POC Glucose (mg/dL) 121 H (70-110) mg/dL Calcium (8.4-10.2) mg/dL Urine Protein 1+ H (Negative) Ur Leukocyte Esterase Small H (Negative) Urine WBC 11 H (0-5) /hpf 08/25/24 08/25/24 08/25/24 Range/Units 03:18 06:21 11:54 RBC (4.30-5.90) m/uL Hgb (13.0-17.5) gm/dL Hct (39.0-53.0) % Plt Count (150-450) k/uL Sodium 129 L (137-145) mmol/L Chloride 89 L (98-107) mmol/L Carbon Dioxide 31 H (22-30) mmol/L BUN 22 H (9-20) mg/dL Creatinine 4.22 H (0.66-1.25) mg/dL Glucose 222 H (74-99) mg/dL POC Glucose (mg/dL) 170 H 234 H (70-110) mg/dL Calcium 8.0 L (8.4-10.2) mg/dL Urine Protein (Negative) Ur Leukocyte Esterase (Negative) Urine WBC (0-5) /hpf Microbiology - Last 24 Hours (Table) 08/23/24 17:50 Urine Culture - Preliminary Urine,Catheterized Gram Neg Bacilli
[2024-08-27 09:43] LABS: Basophils # (A) 0.03 X 10*3/uL (0.00-0.10); Basophils % (A) 0.6 %; Eosinophils # (A) 0.12 X 10*3/uL (0.04-0.35); Eosinophils % (A) 2.3 %; HCT 23.2 % (39.6-50.0); HGB 7.5 g/dL (13.0-17.0); Lymphocytes # (A) 1.79 X 10*3/uL (0.90-5.00); Lymphocytes % (A) 33.6 %; MCH 30.5 pg (27.0-32.0); MCHC 32.3 g/dL (32.0-37.0); MCV 94.3 FL (80.0-97.0); Mean Platelet Volume 9.8 FL (9.5-12.2); Monocytes # (A) 0.46 X 10*3/uL (0.20-1.00); Monocytes % (A) 8.6 %; NRBC Per 100 WBC 0 X 10*3/uL (0.00-0.01); Neutrophils # (A) 2.91 X 10*3/uL (1.80-7.70); Neutrophils % (A) 54.5 %; Platelet Count 107 X 10*3/uL (140-440); RBC 2.46 X 10*6/uL (4.40-5.60); RDW 14.2 % (11.5-14.5); WBC 5.33 X 10*3/uL (4.50-10.00)
--- NOTE | 2024-08-27 11:18 | P.PN ---
Subjective Progress Note Date: 08/27/24 HISTORY OF PRESENT ILLNESS: This is a 58-year-old male with a previous medical history significant for coronary artery disease status post myocardial infarction back in 2014 and in 2022 status post PCI of the LAD as well as LCx, last stent placed was in 2022, hypertension and hypertensive cardiovascular disease, mixed hyperlipidemia, diabetes mellitus type 2, legally blind, history of ischemic cerebrovascular accident in the past with left-sided weakness, history of recurrent TIA, history of enlarged prostate, history of anxiety and depressive disorder, history of end-stage renal disease on hemodialysis Thursday and Thursday via fistula in the left upper extremity, patient was recently hospitalized at [facility] initially on June 16, 2024 after he was admitted for chest pain, at that time he underwent left heart catheterization bilaterally that showed normal LV diastolic and pressure, it did show a normal left main artery, LAD was normal with minimal stenosis in the midportion to the distal portion about 60%, the left circumflex artery was patent where the stents were placed, minimal irregularities, the RCA was totally occluded in the proximal portion, there was collateral from the LAD to distal RCA, patient then was discharged from the hospital, patient has been following up with me as an outpatient in a regular basis, apparently yesterday came to the office with increased abdominal pain associated with intractable nausea and vomiting not able to keep anything down, I have seen the patient in my office twice in the last week and he has been complaining of increased abdominal pain associated with intractable nausea and vomiting not able to keep anything down, patient was sent to the emergency department for evaluation initially was placed by Dr. Chahal on Bactrim for Enterobacter however he was not able to tolerate the antibiotic very well, therefore he came to my office and put him on doxycycline 100 mg orally twice every day which she could not tolerate either he was sent to the ER for treatment of Enterobacter UTI due to Garcia catheterization and he was started on Fortaz and he was admitted to hospital for evaluation patient has missed his dialysis today his last dialysis was on Thursday, because of that he was admitted to the hospital for evaluation by infectious disease, urology as well as nephrology. 08/24: Patient is laying down in bed in no apparent distress, he is drinking the oral contrast for his CT scan of the abdomen pelvis that ordered with oral contrast by infectious ease, he denies any chest pain, he has no shortness of breath, his blood pressure is much better, he is getting his hemodialysis, he is planning to hopefully get out of the hospital in the next 24 hours if you get the results of the culture, patient had failed outpatient treatment with Bactrim as well as doxycycline, he does have Enterobacter on the last culture, we will continue current IV antibiotic as planned by ID Avycaz 2.5 g IV piggyback daily. 08/25: Patient is feeling better today, he had an episode of nausea and vomiting CAT scan of the abdomen/pelvis that was done did not show evidence of acute colitis or any hydronephrosis did show evidence of constipation, continue current bowel care, continue with dialysis as indicated, urine culture showing gram-negative bacilli, we will continue with Avycaz 2.5 g piggyback every 24 hours, infectious disease following, Garcia catheter has been changed, patient will likely be discharged home in the next 24 hours if urine culture is back. 08/26: Patient is laying down in bed in no apparent distress, he did not have any fever or chills at this time, he has been tolerating his IV antibiotic Avycaz 2.5 g IV piggyback every 24 hours, that is sensitive the urine culture showing Enterobacter [place] that is resistant to a lot of antibiotic, and the patient had failed outpatient treatment with Bactrim as well as doxycycline, due to intractable nausea and vomiting, therefore will continue patient on IV antibiotic for a total of 7 days, patient will likely require to finish 7-day course of IV antibiotic. 08/27: Patient sitting up in bed is feeling a lot better today, he has been treated for multidrug-resistant organism including Enterobacter Clocae with Avycaz 2.5 g of piggyback every 24 hours, this is day 4 of 7 he will be done with the treatment on Thursday and then he can be discharged after dialysis. Patient was not able to tolerate oral doxycycline and oral Bactrim due to intrac table nausea and vomiting REVIEW OF SYSTEMS: Constitutional: No documented fever, no chills, no night sweats. Significant weight change. Generalized weakness, fatigue or lethargy. No daytime sle epiness. EENT: No headache. Patient is legally blind, positive for loss of vision. No loss of Hearing, no ringing in the ears, no dizziness. No nasal drainage or congestion. No epistaxis. No sore throat. Lungs: Positive for shortness of breath, no cough, no sputum production. No wheezing. Reports dyspnea with activity. Cardiovascular: Positive for chest pain, no lower extremity edema. No p alpitations. No paroxysmal nocturnal dyspnea. No orthopnea. No lightheadedness or dizziness. No syncopal episodes. Abdominal: Reports abdominal pain. Positive for nausea, vomiting. No diarrhea. Positive for constipation. No bloody stool reports loss of appetite. Genitourinary: No dysuria, increased frequency, urgency. No urinary retention. Musculoskeletal: No myalgias. No muscle weakness, no gait dysfunction, no frequent falls. No back pain. No neck pain. Integumentary: No wounds, no lesions. No rash or pruritus. No unusual bruising. No change in hair or nails. Neurologic: No aphasia. No facial droop. No change in mentation. No head injury. No headache. No paralysis. Positive for paresthesia due to diabetic polyneuropathy Psychiatric: Positive for depression. No anxiety. No mood swings. Endocrine: Positive for abnormal blood sugars. Significant weight change. PHYSICAL EXAMINATION: General: 58-year-old male laying down in bed in no apparent distress. HEENT: Head is atraumatic, normocephalic, pupils were equal round reactive to light and recommendation, extraocular muscle movement were intact, sclera nonicteric, conjunctivae were pale, mucous membranes of the mouth are somewhat dry. Neck: Supple, no JVP, normal carotid upstroke bilaterally, no lymphadenopathy. Chest: Decreased breath sounds at the bases, few rhonchi, no expiratory wheezes, no chest wall tenderness, no intercostal retractions. Heart: First heart sound is normal, second heart sounds normal systolic ejection murmur 2/6 located in the left sternal border. Abdomen: Soft, mild tenderness in the epigastric as well as left lower quadrant mildly distended, positive bowel sounds. Extremities: There is no edema no calf tenderness DP +2 bilaterally. Neurologic examination: Patient is awake alert and oriented x3, cranial nerves II-12 appear grossly intact, left-sided weakness that has been chronic. ASSESSMENT AND PLAN: 1. Enterobacter cloacae UTI due to chronic indwelling Garcia catheterization continue patient on Avycaz 2-1/2 g IV piggyback daily the urine culture is sensi tive to the same antibiotic we will continue the same this is day 2. End-stage renal disease on hemodialysis Thursday and Thursday. Consult nephrology for hemodialysis ordered. 3. Generalized weakness likely related to poor oral intake as well as worsening anemia. Continue treatment as in previous paragraphs. 4. Coronary artery disease status post recent heart catheterization 06/17/2024 that showed stable disease with patent stented arteries of the LAD and LCx. Continue patient on metoprolol ER 50 mg orally once every day, isosorbide mononitrate 30 mg orally once every day, hydralazine 50 mg orally 3 times every day, atorvastatin 80 mg once every day, ranolazine 500 mg orally twice every day, continue aspirin and Plavix 5. Hypertension and hypertensive cardiovascular disease. Continue patient on metoprolol ER 50 mg once every day, hydralazine 50 mg orally 3 times every day, losartan 25 mg once every day. 6. Mixed hyperlipidemia. Continue patient on atorvastatin 80 mg once every day, monitor the patient lipid panel, keep LDL 55 7. PAD. Stable at this time. Continue atorvastatin for secondary prevention. 8. Diabetes mellitus type 2 . Continue patient on Levemir 17 units at bedtime along with 9 units before each meal 3 times every day, monitor the patient blood sugar before each meal and bedtime. 9. History of CVA in the past with left-sided weakness and recurrent TIA. Continue patient on atorvastatin 80 mg once every day, continue patient on Plavix 75 mg once every day as well as aspirin 80 mg every day. 10. Enlarged prostate with urinary retention. Continue Flomax 0.4 mg orally twice every day. 11. History of gout. Continue patient on allopurinol 100 mg once every day. 12. History of anxiety and depressive disorder. Continue citalopram 60 mg orally once every day. 13. Anemia multifactorial monitor the patient hemoglobin very closely, transfuse for hemoglobin less than 7. 14. GI prophylaxis. Continue patient on Protonix 40 mg orally twice every day. 15. DVT prophylaxis. Start the patient on heparin 5000 subcutaneous every 12 hours. 16. Patient will stay in the hospital for 7-day course of IV antibiotic o therwise he will have to have an IV antibiotic as an outpatient which I found him possible since the patient is legally blind and he does not have any help at home. Objective - Vital Signs Vital signs: Vital Signs Temp 97.8 F 08/27/24 07:28 Pulse 61 08/27/24 07:28 Resp 17 08/27/24 07:28 BP 156/76 08/27/24 07:28 Pulse Ox 97 08/27/24 07:28 FiO2 Intake & Output 08/26/24 08/27/24 08/27/24 18:59 06:59 18:59 Intake Total 368 118 Output Total 300 1000 Balance 68 -882 Intake: Oral 368 118 Output: Urine 300 1000 Other: Voiding Method Indwelling Catheter Indwelling Catheter - Labs CBC & Chem 7: 08/27/24 02:44 08/26/24 03:20 Labs: Abnormal Lab Results - Last 24 Hours (Table) 08/26/24 08/26/24 08/27/24 Range/Units 12:02 17:15 05:47 POC Glucose (mg/dL) 120 H 145 H 132 H (70-110) mg/dL Microbiology - Last 24 Hours (Table) 08/26/24 02:46 Urine Culture - Final Urine,Voided 08/23/24 17:50 Urine Culture - Final Urine,Catheterized Enterobacter cloacae
[2024-08-27 11:32] LABS: BUN/Creat Ratio 6.26 Ratio (12.00-20.00); Blood Urea Nitrogen 33.2 mg/dL (9.0-27.0); Carbon Dioxide 26.4 mmol/L (21.6-31.8); Chloride 96 mmol/L (96-109); Glucose 122 mg/dL (70-110); Potassium 5.8 mmol/L (3.5-5.5); Sodium 132 mmol/L (135-145)
[2024-08-27 11:33] LABS: ALT 21 U/L (10-49); AST 20 U/L (14-35); Albumin 3.8 g/dL (3.8-4.9); Alkaline Phosphatase 94 U/L (41-126); Calcium 7.5 mg/dL (8.7-10.3); Total Bilirubin <0.2 mg/dL (0.3-1.2); Total Protein 5.8 g/dL (6.2-8.2)
[2024-08-27 12:10] LABS: Glucose,Whole Blood 215 mg/dL (70-110)
--- NOTE | 2024-08-27 13:16 | P.PN ---
Subjective Progress Note Date: 08/27/24 following for ESRD on hemodialysis. patient seen and examined today plan for HD later today No active complaints at this time. Objective - Vital Signs Vital signs: Vital Signs Temp 97.8 F 08/27/24 07:28 Pulse 61 08/27/24 07:28 Resp 17 08/27/24 07:28 BP 156/76 08/27/24 07:28 Pulse Ox 97 08/27/24 07:28 FiO2 Intake & Output 08/26/24 08/27/24 08/27/24 18:59 06:59 18:59 Intake Total 368 118 Output Total 300 1000 800 Balance 68 -312 -800 Intake: Oral 368 118 Output: Urine 300 1000 800 Other: Voiding Method Indwelling Catheter Indwelling Catheter Indwelling Catheter - Exam Patient is awake, comfortable, no acute distress. Bustos catheter in place. 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 - Labs CBC & Chem 7: 08/27/24 02:44 08/27/24 02:44 Labs: Abnormal Lab Results - Last 24 Hours (Table) 08/26/24 08/27/24 08/27/24 Range/Units 17:15 02:44 02:44 RBC 2.46 L (4.40-5.60) X 10*6/uL Hgb 7.5 L (13.0-17.0) g/dL Hct 23.2 L (39.6-50.0) % Plt Count 107 L (140-440) X 10*3/uL Sodium 132 L (135-145) mmol/L Potassium 5.8 H (3.5-5.5) mmol/L BUN 33.2 H (9.0-27.0) mg/dL Creatinine 5.3 H (0.6-1.5) mg/dL Est GFR (CKD-EPI) 12 L (>=60) BUN/Creatinine Ratio 6.26 L (12.00-20.00) Ratio Glucose 122 H (70-110) mg/dL POC Glucose (mg/dL) 145 H (70-110) mg/dL Calcium 7.5 L (8.7-10.3) mg/dL Total Bilirubin <0.2 L (0.3-1.2) mg/dL Total Protein 5.8 L (6.2-8.2) g/dL 08/27/24 08/27/24 Range/Units 05:47 12:08 RBC (4.40-5.60) X 10*6/uL Hgb (13.0-17.0) g/dL Hct (39.6-50.0) % Plt Count (140-440) X 10*3/uL Sodium (135-145) mmol/L Potassium (3.5-5.5) mmol/L BUN (9.0-27.0) mg/dL Creatinine (0.6-1.5) mg/dL Est GFR (CKD-EPI) (>=60) BUN/Creatinine Ratio (12.00-20.00) Ratio Glucose (70-110) mg/dL POC Glucose (mg/dL) 132 H 215 H (70-110) mg/dL Calcium (8.7-10.3) mg/dL Total Bilirubin (0.3-1.2) mg/dL Total Protein (6.2-8.2) g/dL Microbiology - Last 24 Hours (Table) 08/26/24 02:46 Urine Culture - Final Urine,Voided 08/23/24 17:50 Urine Culture - Final Urine,Catheterized Enterobacter cloacae Assessment and Plan Assessment: #ESRD on hemodialysis on T/T/S schedule #Recent UTI, N/V possibly related to antibiotic use #CKD mineral bone disorder, maintained on Tums as phosphate binder, Calcium this morning 8.0 #Anemia of CKD, hemoglobin this morning 7.9 #Chronic indwelling bustos catheter, secondary to hypotonic neurogenic bladder, follows with urology; maintained on Flomax #CAD w/ history of coronary stents Plan: -Hemodialysis today per T/T/S schedule -Monitor BMP in the morning -Continue Aranesp 60 mg once weekly -urine culture preliminarily positive for gram-negative bacilli -initiated on Avycaz 0.94 g daily, plan to continue inpatient antibiotics for 7 days total , today is day #4 -Stable for discharge from nephrology standpoint; continue his usual T/T/S dialysis schedule.
--- NOTE | 2024-08-27 13:42 | P.PN ---
Subjective Progress Note Date: 08/27/24 Principal diagnosis: Reason for follow-up is a UTI Patient is a 58-year-old male with a past medical history significant for hypertension hyperlipidemia reflux diabetes mellitus CVA TIA coronary artery disease end-stage renal disease on dialysis patient still makes urine and did have indwelling Garcia catheter with recent outpatient culture positive for drug-resistant Enterobacter presented to hospital with nausea and vomiting and concern for failing outpatient therapy. On today's evaluation that is 08/27/2024, patient did not have any fever and denies any chills, patient is breathing comfortably on room air, patient with no chest pain or cough patient did not have any abdominal pain nausea vomiting or any loose stools. The patient white count is 5.33, creatinine is 5.3 repeat urine is now coming back negative Objective - Vital Signs Vital signs: Vital Signs Temp 97.8 F 08/27/24 07:28 Pulse 61 08/27/24 07:28 Resp 17 08/27/24 07:28 BP 156/76 08/27/24 07:28 Pulse Ox 97 08/27/24 07:28 FiO2 Intake & Output 08/26/24 08/27/24 08/27/24 18:59 06:59 18:59 Intake Total 368 118 Output Total 300 1000 Balance 68 -882 Intake: Oral 368 118 Output: Urine 300 1000 Other: Voiding Method Indwelling Catheter Indwelling Catheter Indwelling Catheter - Exam GENERAL DESCRIPTION: Middle-age male lying in bed in no distress RESPIRATORY SYSTEM: Unlabored breathing , decreased breath sounds at bases HEART: S1 S2 regular rate and rhythm , ABDOMEN: Soft , no tenderness EXTREMITIES: No edema feet - Labs CBC & Chem 7: 08/27/24 02:44 08/27/24 02:44 Labs: Abnormal Lab Results - Last 24 Hours (Table) 08/26/24 08/26/24 08/27/24 Range/Units 12:02 17:15 02:44 RBC 2.46 L (4.40-5.60) X 10*6/uL Hgb 7.5 L (13.0-17.0) g/dL Hct 23.2 L (39.6-50.0) % Plt Count 107 L (140-440) X 10*3/uL Sodium (135-145) mmol/L Potassium (3.5-5.5) mmol/L BUN (9.0-27.0) mg/dL Creatinine (0.6-1.5) mg/dL Est GFR (CKD-EPI) (>=60) BUN/Creatinine Ratio (12.00-20.00) Ratio Glucose (70-110) mg/dL POC Glucose (mg/dL) 120 H 145 H (70-110) mg/dL Calcium (8.7-10.3) mg/dL Total Bilirubin (0.3-1.2) mg/dL Total Protein (6.2-8.2) g/dL 08/27/24 08/27/24 Range/Units 02:44 05:47 RBC (4.40-5.60) X 10*6/uL Hgb (13.0-17.0) g/dL Hct (39.6-50.0) % Plt Count (140-440) X 10*3/uL Sodium 132 L (135-145) mmol/L Potassium 5.8 H (3.5-5.5) mmol/L BUN 33.2 H (9.0-27.0) mg/dL Creatinine 5.3 H (0.6-1.5) mg/dL Est GFR (CKD-EPI) 12 L (>=60) BUN/Creatinine Ratio 6.26 L (12.00-20.00) Ratio Glucose 122 H (70-110) mg/dL POC Glucose (mg/dL) 132 H (70-110) mg/dL Calcium 7.5 L (8.7-10.3) mg/dL Total Bilirubin <0.2 L (0.3-1.2) mg/dL Total Protein 5.8 L (6.2-8.2) g/dL Microbiology - Last 24 Hours (Table) 08/26/24 02:46 Urine Culture - Final Urine,Voided 08/23/24 17:50 Urine Culture - Final Urine,Catheterized Enterobacter cloacae Assessment and Plan (1) Nausea & vomiting Current Visit: Yes Status: Acute Code(s): R11.2 - NAUSEA WITH VOMITING, UNSPECIFIED SNOMED Code(s): 32016502 (2) UTI (urinary tract infection) Current Visit: Yes Status: Acute Code(s): N39.0 - URINARY TRACT INFECTION, SITE NOT SPECIFIED SNOMED Code(s): 38324334 Plan: 1-patient presented hospital with nausea vomiting lower abdominal discomfort in this patient who recently did have a urine culture positive on 08/14/2024 with a multiresistant Enterobacter with the patient and also wanted to Bactrim, tetracycline now with persistent symptoms however the UA has not been significantly positive with a question of possible other abdominal source for his symptoms. 2-patient did have CT of abdominal pelvis did not show any colitis abscess or hydronephrosis 3-urine is growing multidrug-resistant Enterobacter sensitive to Avycaz which will be continued while inpatient however no need for any antibiotic on discharge as repeat urine now coming back negative Dictation was produced using [employer] dictation software. please excuse any grammatical, word or spelling errors. Time with Patient: Less than 30
[2024-08-27 17:16] LABS: Glucose,Whole Blood 98 mg/dL (70-110)
[2024-08-27 19:50] LABS: Glucose,Whole Blood 217 mg/dL (70-110)
[2024-08-28 05:33] LABS: Glucose,Whole Blood 158 mg/dL (70-110)
--- NOTE | 2024-08-28 12:14 | P.PN ---
Subjective Progress Note Date: 08/28/24 HISTORY OF PRESENT ILLNESS: This is a 58-year-old male with a previous medical history significant for coronary artery disease status post myocardial infarction back in 2014 and in 2022 status post PCI of the LAD as well as LCx, last stent placed was in 2022, hypertension and hypertensive cardiovascular disease, mixed hyperlipidemia, diabetes mellitus type 2, legally blind, history of ischemic cerebrovascular accident in the past with left-sided weakness, history of recurrent TIA, history of enlarged prostate, history of anxiety and depressive disorder, history of end-stage renal disease on hemodialysis Thursday and Thursday via fistula in the left upper extremity, patient was recently hospitalized at [facility] initially on June 16, 2024 after he was admitted for chest pain, at that time he underwent left heart catheterization bilaterally that showed normal LV diastolic and pressure, it did show a normal left main artery, LAD was normal with minimal stenosis in the midportion to the distal portion about 60%, the left circumflex artery was patent where the stents were placed, minimal irregularities, the RCA was totally occluded in the proximal portion, there was collateral from the LAD to distal RCA, patient then was discharged from the hospital, patient has been following up with me as an outpatient in a regular basis, apparently yesterday came to the office with increased abdominal pain associated with intractable nausea and vomiting not able to keep anything down, I have seen the patient in my office twice in the last week and he has been complaining of increased abdominal pain associated with intractable nausea and vomiting not able to keep anything down, patient was sent to the emergency department for evaluation initially was placed by Dr. Chahal on Bactrim for Enterobacter however he was not able to tolerate the antibiotic very well, therefore he came to my office and put him on doxycycline 100 mg orally twice every day which she could not tolerate either he was sent to the ER for treatment of Enterobacter UTI due to Garcia catheterization and he was started on Fortaz and he was admitted to hospital for evaluation patient has missed his dialysis today his last dialysis was on Thursday, because of that he was admitted to the hospital for evaluation by infectious disease, urology as well as nephrology. 08/24: Patient is laying down in bed in no apparent distress, he is drinking the oral contrast for his CT scan of the abdomen pelvis that ordered with oral contrast by infectious ease, he denies any chest pain, he has no shortness of breath, his blood pressure is much better, he is getting his hemodialysis, he is planning to hopefully get out of the hospital in the next 24 hours if you get the results of the culture, patient had failed outpatient treatment with Bactrim as well as doxycycline, he does have Enterobacter on the last culture, we will continue current IV antibiotic as planned by ID Avycaz 2.5 g IV piggyback daily. 08/25: Patient is feeling better today, he had an episode of nausea and vomiting CAT scan of the abdomen/pelvis that was done did not show evidence of acute colitis or any hydronephrosis did show evidence of constipation, continue current bowel care, continue with dialysis as indicated, urine culture showing gram-negative bacilli, we will continue with Avycaz 2.5 g piggyback every 24 hours, infectious disease following, Garcia catheter has been changed, patient will likely be discharged home in the next 24 hours if urine culture is back. 08/26: Patient is laying down in bed in no apparent distress, he did not have any fever or chills at this time, he has been tolerating his IV antibiotic Avycaz 2.5 g IV piggyback every 24 hours, that is sensitive the urine culture showing Enterobacter [place] that is resistant to a lot of antibiotic, and the patient had failed outpatient treatment with Bactrim as well as doxycycline, due to intractable nausea and vomiting, therefore will continue patient on IV antibiotic for a total of 7 days, patient will likely require to finish 7-day course of IV antibiotic. 08/27: Patient sitting up in bed is feeling a lot better today, he has been treated for multidrug-resistant organism including Enterobacter Clocae with Avycaz 2.5 g of piggyback every 24 hours, this is day 4 of 7 he will be done with the treatment on Thursday and then he can be discharged after dialysis. Patient was not able to tolerate oral doxycycline and oral Bactrim due to intrac table nausea and vomiting 08/28: Patient is sitting up in bed in no apparent distress, he is feeling a lot better, he denies any chest pain, shortness of breath, he is tolerating his diet very well, he has no fever or chills at this time, his urine is clear, he has been treated for multidrug-resistant organism with Enterobacter currently on Avycaz 2.5 g every back every 24 hours, will continue with that today is day #5 of 7, patient will be maintained on that for a few more days and he can be dis charged home after that. REVIEW OF SYSTEMS: Constitutional: No documented fever, no chills, no night sweats. Significant weight change. Generalized weakness, fatigue or lethargy. No daytime slee piness. EENT: No headache. Patient is legally blind, positive for loss of vision. No loss of Hearing, no ringing in the ears, no dizziness. No nasal drainage or congestion. No epistaxis. No sore throat. Lungs: Positive for shortness of breath, no cough, no sputum production. No wheezing. Reports dyspnea with activity. Cardiovascular: Positive for chest pain, no lower extremity edema. No pa lpitations. No paroxysmal nocturnal dyspnea. No orthopnea. No lightheadedness or dizziness. No syncopal episodes. Abdominal: Reports abdominal pain. Positive for nausea, vomiting. No diarrhea. Positive for constipation. No bloody stool reports loss of appetite. Genitourinary: No dysuria, increased frequency, urgency. No urinary retention. Musculoskeletal: No myalgias. No muscle weakness, no gait dysfunction, no frequent falls. No back pain. No neck pain. Integumentary: No wounds, no lesions. No rash or pruritus. No unusual bruising. No change in hair or nails. Neurologic: No aphasia. No facial droop. No change in mentation. No head injury. No headache. No paralysis. Positive for paresthesia due to diabetic polyneuropathy Psychiatric: Positive for depression. No anxiety. No mood swings. Endocrine: Positive for abnormal blood sugars. Significant weight change. PHYSICAL EXAMINATION: General: 58-year-old male laying down in bed in no apparent distress. HEENT: Head is atraumatic, normocephalic, pupils were equal round reactive to light and recommendation, extraocular muscle movement were intact, sclera nonicteric, conjunctivae were pale, mucous membranes of the mouth are somewhat dry. Neck: Supple, no JVP, normal carotid upstroke bilaterally, no lymphadenopathy. Chest: Decreased breath sounds at the bases, few rhonchi, no expiratory wheezes, no chest wall tenderness, no intercostal retractions. Heart: First heart sound is normal, second heart sounds normal systolic ejection murmur 2/6 located in the left sternal border. Abdomen: Soft, mild tenderness in the epigastric as well as left lower quadrant mildly distended, positive bowel sounds. Extremities: There is no edema no calf tenderness DP +2 bilaterally. Neurologic examination: Patient is awake alert and oriented x3, cranial nerves II-12 appear grossly intact, left-sided weakness that has been chronic. ASSESSMENT AND PLAN: 1. Enterobacter cloacae UTI due to chronic indwelling Garcia catheterization continue patient on Avycaz 2-1/2 g IV piggyback daily the urine culture is sensitive to the same antibiotic we will continue the same this is day 2. End-stage renal disease on hemodialysis Thursday and Thursday. Consult nephrology for hemodialysis ordered. 3. anemia of chronic kidney disease continue with Aranesp 60 mcg subcutaneously once every week. 4. Coronary artery disease status post recent heart catheterization 06/17/2024 that showed stable disease with patent stented arteries of the LAD and LCx. Continue patient on metoprolol ER 50 mg orally once every day, isosorbide mononitrate 30 mg orally once every day, hydralazine 50 mg orally 3 times every day, atorvastatin 80 mg once every day, ranolazine 500 mg orally twice every day, continue aspirin and Plavix 5. Hypertension and hypertensive cardiovascular disease. Continue patient on metoprolol ER 50 mg once every day, hydralazine 50 mg orally 3 times every day, losartan 25 mg once every day. 6. Mixed hyperlipidemia. Continue patient on atorvastatin 80 mg once every day, monitor the patient lipid panel, keep LDL 55 7. PAD. Stable at this time. Continue atorvastatin for secondary prevention. 8. Diabetes mellitus type 2 . Continue patient on Levemir 17 units at bedtime along with 9 units before each meal 3 times every day, monitor the patient blood sugar before each meal and bedtime. 9. History of CVA in the past with left-sided weakness and recurrent TIA. Continue patient on atorvastatin 80 mg once every day, continue patient on Plavix 75 mg once every day as well as aspirin 80 mg every day. 10. urinary retention due to hypotonic bladder status post chronic Garcia catheterization, patient has been on Flomax 0.4 mg once every day has been following with Dr. Chahal as an outpatient, patient may need to self catheterize himself however he is legally blind therefore he will continue with Garcia catheter force of his life. 11. History of gout. Continue patient on allopurinol 100 mg once every day. 12. History of anxiety and depressive disorder. Continue citalopram 60 mg orally once every day. 13. Anemia in part due to chronic kidney disease still in part due to hiatal hernia and possible GI loss continue patient on Aranesp 60 mcg subcutaneously once every week. 14. GI prophylaxis. Continue patient on Protonix 40 mg orally twice every day. 15. DVT prophylaxis. Start the patient on heparin 5000 subcutaneous every 12 hours. 16. Patient will be discharged home on Thursday after completing 7 days of Avycaz. Objective - Vital Signs Vital signs: Vital Signs Temp 97.9 F 08/28/24 07:02 Pulse 61 08/28/24 07:02 Resp 18 08/28/24 07:02 BP 126/73 08/28/24 07:02 Pulse Ox 100 08/28/24 07:02 FiO2 Intake & Output 08/27/24 08/28/24 08/28/24 17:59 06:59 18:59 Intake Total Output Total Balance Intake: Oral Hemodialysis Output: Urine Hemodialysis Hemodialysis Net Amount Other: Voiding Method - Labs CBC & Chem 7: 08/27/24 02:44 08/27/24 02:44 Labs: Abnormal Lab Results - Last 24 Hours (Table) 08/27/24 08/27/24 08/27/24 Range/Units 02:44 02:44 12:08 RBC 2.46 L (4.40-5.60) X 10*6/uL Hgb 7.5 L (13.0-17.0) g/dL Hct 23.2 L (39.6-50.0) % Plt Count 107 L (140-440) X 10*3/uL Sodium 132 L (135-145) mmol/L Potassium 5.8 H (3.5-5.5) mmol/L BUN 33.2 H (9.0-27.0) mg/dL Creatinine 5.3 H (0.6-1.5) mg/dL Est GFR (CKD-EPI) 12 L (>=60) BUN/Creatinine Ratio 6.26 L (12.00-20.00) Ratio Glucose 122 H (70-110) mg/dL POC Glucose (mg/dL) 215 H (70-110) mg/dL Calcium 7.5 L (8.7-10.3) mg/dL Total Bilirubin <0.2 L (0.3-1.2) mg/dL Total Protein 5.8 L (6.2-8.2) g/dL 08/27/24 08/28/24 Range/Units 19:45 05:32 RBC (4.40-5.60) X 10*6/uL Hgb (13.0-17.0) g/dL Hct (39.6-50.0) % Plt Count (140-440) X 10*3/uL Sodium (135-145) mmol/L Potassium (3.5-5.5) mmol/L BUN (9.0-27.0) mg/dL Creatinine (0.6-1.5) mg/dL Est GFR (CKD-EPI) (>=60) BUN/Creatinine Ratio (12.00-20.00) Ratio Glucose (70-110) mg/dL POC Glucose (mg/dL) 217 H 158 H (70-110) mg/dL Calcium (8.7-10.3) mg/dL Total Bilirubin (0.3-1.2) mg/dL Total Protein (6.2-8.2) g/dL Microbiology - Last 24 Hours (Table) 08/26/24 02:46 Urine Culture - Final Urine,Voided
[2024-08-28 12:34] LABS: Glucose,Whole Blood 128 mg/dL (70-110)
--- NOTE | 2024-08-28 14:46 | P.PN ---
Subjective Progress Note Date: 08/28/24 Following for ESRD on hemodialysis. patient seen and examined today No active complaints at this time HD yesterday , tolerated 1.5 L UF Objective - Vital Signs Vital signs: Vital Signs Temp 97.4 F L 08/28/24 14:00 Pulse 59 L 08/28/24 14:00 Resp 17 08/28/24 14:00 BP 120/66 08/28/24 14:00 Pulse Ox 100 08/28/24 14:00 FiO2 Intake & Output 08/27/24 08/28/24 08/28/24 17:59 06:59 18:59 Intake Total 480 Output Total 400 Balance 80 Intake: Oral 480 Hemodialysis Output: Urine 400 Hemodialysis Hemodialysis Net Amount Other: Voiding Method Indwelling Catheter - Exam Patient is awake, comfortable, no acute distress. Bustos catheter in place. Heart: S1 and S2 heard Lungs: Bilateral breath sounds are heard Abdomen: Soft and nontender Lower extremities: No edema [employer]: grossly intact - Labs CBC & Chem 7: 08/27/24 02:44 08/27/24 02:44 Labs: Abnormal Lab Results - Last 24 Hours (Table) 08/27/24 08/28/24 08/28/24 Range/Units 19:45 05:32 12:25 POC Glucose (mg/dL) 217 H 158 H 128 H (70-110) mg/dL Microbiology - Last 24 Hours (Table) 08/26/24 02:46 Urine Culture - Final Urine,Voided Assessment and Plan Assessment: #ESRD on hemodialysis on T/T/S schedule #Recent UTI, N/V possibly related to antibiotic use #CKD mineral bone disorder, maintained on Tums as phosphate binder, Calcium this morning 8.0 #Anemia of CKD, hemoglobin this morning 7.9 #Chronic indwelling bustos catheter, secondary to hypotonic neurogenic bladder, follows with urology; maintained on Flomax #CAD w/ history of coronary stents Plan: -Hemodialysis today per T/T/S schedule -Monitor BMP in the morning -Continue Aranesp 60 mg once weekly -urine culture preliminarily positive for gram-negative bacilli -initiated on Avycaz 0.94 g daily, plan to continue inpatient antibiotics for 7 days total , today is day #4 -Stable for discharge from nephrology standpoint; continue his usual T/T/S dialysis schedule.
--- NOTE | 2024-08-28 15:45 | P.PN ---
Subjective Progress Note Date: 08/28/24 Principal diagnosis: Reason for follow-up is a UTI Patient is a 58-year-old male with a past medical history significant for hypertension hyperlipidemia reflux diabetes mellitus CVA TIA coronary artery disease end-stage renal disease on dialysis patient still makes urine and did have indwelling Garcia catheter with recent outpatient culture positive for drug-resistant Enterobacter presented to hospital with nausea and vomiting and concern for failing outpatient therapy. On today's evaluation that is 08/28/2024, Patient is afebrile patient is currently on room air and denies having any shortness of breath, the patient denies any chest pain or cough, the patient denies any nausea vomiting did not have any abdominal pain and no diarrhea. No new lab has been repeated today Objective - Vital Signs Vital signs: Vital Signs Temp 97.4 F L 08/28/24 14:00 Pulse 59 L 08/28/24 14:00 Resp 17 08/28/24 14:00 BP 120/66 08/28/24 14:00 Pulse Ox 100 08/28/24 14:00 FiO2 Intake & Output 08/27/24 08/28/24 08/28/24 17:59 06:59 18:59 Intake Total 480 Output Total 400 Balance 80 Intake: Oral 480 Hemodialysis Output: Urine 400 Hemodialysis Hemodialysis Net Amount Other: Voiding Method Indwelling Catheter - Exam GENERAL DESCRIPTION: Middle-age male lying in bed in no distress RESPIRATORY SYSTEM: Unlabored breathing , decreased breath sounds at bases HEART: S1 S2 regular rate and rhythm , ABDOMEN: Soft , no tenderness EXTREMITIES: No edema feet - Labs CBC & Chem 7: 08/27/24 02:44 08/27/24 02:44 Labs: Abnormal Lab Results - Last 24 Hours (Table) 08/27/24 08/28/24 08/28/24 Range/Units 19:45 05:32 12:25 POC Glucose (mg/dL) 217 H 158 H 128 H (70-110) mg/dL Assessment and Plan (1) Nausea & vomiting Current Visit: Yes Status: Acute Code(s): R11.2 - NAUSEA WITH VOMITING, UNSPECIFIED SNOMED Code(s): 60147419 (2) UTI (urinary tract infection) Current Visit: Yes Status: Acute Code(s): N39.0 - URINARY TRACT INFECTION, SITE NOT SPECIFIED SNOMED Code(s): 97844543 Plan: 1-patient presented hospital with nausea vomiting lower abdominal discomfort in this patient who recently did have a urine culture positive on 08/14/2024 with a multiresistant Enterobacter with the patient and also wanted to Bactrim, tetracycline now with persistent symptoms however the UA has not been significantly positive with a question of possible other abdominal source for his symptoms. 2-patient did have CT of abdominal pelvis did not show any colitis abscess or hydronephrosis 3-urine is growing multidrug-resistant Enterobacter sensitive to Avycaz which will be continued in view of clinical improvement to finish his course of therapy and monitor clinical course closely Dictation was produced using [employer] dictation software. please excuse any grammatical, word or spelling errors. Time with Patient: Less than 30
[2024-08-28 17:59] LABS: Glucose,Whole Blood 95 mg/dL (70-110)
[2024-08-28 20:34] LABS: Glucose,Whole Blood 194 mg/dL (70-110)
[2024-08-29 06:15] LABS: Glucose,Whole Blood 92 mg/dL (70-110)
[2024-08-29 08:21] LABS: ALT 24 U/L (10-49); AST 25 U/L (14-35); Albumin 3.9 g/dL (3.8-4.9); Albumin/Globulin Ratio 1.77 Ratio (1.60-3.17); Alkaline Phosphatase 91 U/L (41-126); BUN/Creat Ratio 6.43 Ratio (12.00-20.00); Blood Urea Nitrogen 31.5 mg/dL (9.0-27.0); Calcium 8.2 mg/dL (8.7-10.3); Chloride 98 mmol/L (96-109); Globulin 2.2 g/dL (1.6-3.3); Glucose 87 mg/dL (70-110); Potassium 5.2 mmol/L (3.5-5.5); Sodium 136 mmol/L (135-145); Total Bilirubin <0.2 mg/dL (0.3-1.2); Total Protein 6.1 g/dL (6.2-8.2)
--- NOTE | 2024-08-29 08:24 | P.PN ---
Subjective Patient is seen in follow-up for end-stage renal disease. Resting in bed. No active complaints. Vital signs are stable. General: No acute distress. HEENT: Head exam is unremarkable. LUNGS: No audible rhonchi or wheezes. HEART: Rate and Rhythm are regular. ABDOMEN: Nontender. EXTREMITITES: No edema. Objective - Vital Signs Vital signs: Vital Signs Temp 97.8 F 08/29/24 07:00 Pulse 59 L 08/29/24 07:00 Resp 16 08/29/24 07:00 BP 127/67 08/29/24 07:00 Pulse Ox 99 08/29/24 07:00 FiO2 Intake & Output 08/28/24 08/29/24 08/29/24 18:59 06:59 18:59 Intake Total 480 200 Output Total 850 900 Balance -370 -700 Intake: Oral 480 200 Output: Urine 850 900 Other: Voiding Method Indwelling Catheter Indwelling Catheter - Labs CBC & Chem 7: 08/27/24 02:44 08/29/24 05:10 Labs: Abnormal Lab Results - Last 24 Hours (Table) 08/28/24 08/28/24 08/29/24 Range/Units 12:25 20:33 05:10 BUN 31.5 H (9.0-27.0) mg/dL Creatinine 4.9 H (0.6-1.5) mg/dL Est GFR (CKD-EPI) 13 L (>=60) BUN/Creatinine Ratio 6.43 L (12.00-20.00) Ratio POC Glucose (mg/dL) 128 H 194 H (70-110) mg/dL Calcium 8.2 L (8.7-10.3) mg/dL Total Bilirubin <0.2 L (0.3-1.2) mg/dL Total Protein 6.1 L (6.2-8.2) g/dL Assessment and Plan Plan: Assessment: 1. End-stage renal disease maintained on hemodialysis on Thursday schedule. 2. 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 Garcia catheter changed this admission. Follows with urology. On Flomax. 3. UTI on antibiotics. Urine culture positive for Enterobacter. ID following. 4. Anemia of chronic kidney disease maintained on Aranesp. 5. Diabetes mellitus. 6. Hypertension with chronic kidney disease. Stable. Plan: Hemodialysis tomorrow.
[2024-08-29 08:54] LABS: Basophils # (A) 0.03 X 10*3/uL (0.00-0.10); Basophils % (A) 0.5 %; Eosinophils # (A) 0.17 X 10*3/uL (0.04-0.35); HCT 23.9 % (39.6-50.0); HGB 7.7 g/dL (13.0-17.0); Lymphocytes # (A) 1.33 X 10*3/uL (0.90-5.00); Lymphocytes % (A) 23.8 %; MCHC 32.2 g/dL (32.0-37.0); Mean Platelet Volume 9.4 FL (9.5-12.2); Monocytes % (A) 7.2 %; NRBC Per 100 WBC 0 X 10*3/uL (0.00-0.01); Neutrophils # (A) 3.62 X 10*3/uL (1.80-7.70); Neutrophils % (A) 64.8 %; Platelet Count 105 X 10*3/uL (140-440); RBC 2.57 X 10*6/uL (4.40-5.60); RDW 14.5 % (11.5-14.5); WBC 5.59 X 10*3/uL (4.50-10.00)
[2024-08-29 12:07] LABS: Glucose,Whole Blood 165 mg/dL (70-110)
[2024-08-29 14:54] LABS: Glucose,Whole Blood 247 mg/dL (70-110)
--- NOTE | 2024-08-29 16:03 | P.PN ---
Subjective Progress Note Date: 08/29/24 Principal diagnosis: Reason for follow-up is a UTI Patient is a 58-year-old male with a past medical history significant for hypertension hyperlipidemia reflux diabetes mellitus CVA TIA coronary artery disease end-stage renal disease on dialysis patient still makes urine and did have indwelling Garcia catheter with recent outpatient culture positive for drug-resistant Enterobacter presented to hospital with nausea and vomiting and concern for failing outpatient therapy. On today's evaluation that is 08/29/2024, patient has been afebrile, patient is breathing comfortably and is currently on room air, patient denies having any significant cough no chest pain, patient denies nausea vomiting or diarrhea and no abdominal pain. Patient white count is 5.59, creatinine is 4.9 Objective - Vital Signs Vital signs: Vital Signs Temp 97.8 F 08/29/24 07:00 Pulse 59 L 08/29/24 07:00 Resp 16 08/29/24 07:00 BP 127/67 08/29/24 07:00 Pulse Ox 99 08/29/24 07:00 FiO2 Intake & Output 08/28/24 08/29/24 08/29/24 18:59 06:59 18:59 Intake Total 480 200 118 Output Total 850 900 Balance -370 -700 118 Intake: Oral 480 200 118 Output: Urine 850 900 Other: Voiding Method Indwelling Catheter Indwelling Catheter - Exam GENERAL DESCRIPTION: Middle-age male lying in bed in no distress RESPIRATORY SYSTEM: Unlabored breathing , decreased breath sounds at bases HEART: S1 S2 regular rate and rhythm , ABDOMEN: Soft , no tenderness EXTREMITIES: No edema feet - Labs CBC & Chem 7: 08/29/24 05:10 08/29/24 05:10 Labs: Abnormal Lab Results - Last 24 Hours (Table) 08/28/24 08/28/24 08/29/24 Range/Units 12:25 20:33 05:10 RBC 2.57 L (4.40-5.60) X 10*6/uL Hgb 7.7 L (13.0-17.0) g/dL Hct 23.9 L (39.6-50.0) % Plt Count 105 L (140-440) X 10*3/uL MPV 9.4 L (9.5-12.2) FL BUN (9.0-27.0) mg/dL Creatinine (0.6-1.5) mg/dL Est GFR (CKD-EPI) (>=60) BUN/Creatinine Ratio (12.00-20.00) Ratio POC Glucose (mg/dL) 128 H 194 H (70-110) mg/dL Calcium (8.7-10.3) mg/dL Total Bilirubin (0.3-1.2) mg/dL Total Protein (6.2-8.2) g/dL 08/29/24 Range/Units 05:10 RBC (4.40-5.60) X 10*6/uL Hgb (13.0-17.0) g/dL Hct (39.6-50.0) % Plt Count (140-440) X 10*3/uL MPV (9.5-12.2) FL BUN 31.5 H (9.0-27.0) mg/dL Creatinine 4.9 H (0.6-1.5) mg/dL Est GFR (CKD-EPI) 13 L (>=60) BUN/Creatinine Ratio 6.43 L (12.00-20.00) Ratio POC Glucose (mg/dL) (70-110) mg/dL Calcium 8.2 L (8.7-10.3) mg/dL Total Bilirubin <0.2 L (0.3-1.2) mg/dL Total Protein 6.1 L (6.2-8.2) g/dL Assessment and Plan (1) Nausea & vomiting Current Visit: Yes Status: Acute Code(s): R11.2 - NAUSEA WITH VOMITING, UNSPECIFIED SNOMED Code(s): 67600322 (2) UTI (urinary tract infection) Current Visit: Yes Status: Acute Code(s): N39.0 - URINARY TRACT INFECTION, SITE NOT SPECIFIED SNOMED Code(s): 99305636 Plan: 1-patient presented hospital with nausea vomiting lower abdominal discomfort in this patient who recently did have a urine culture positive on 08/14/2024 with a multiresistant Enterobacter with the patient and also wanted to Bactrim, tetracycline now with persistent symptoms however the UA has not been significantly positive with a question of possible other abdominal source for his symptoms. 2-patient did have CT of abdominal pelvis did not show any colitis abscess or hydronephrosis 3-patient urine culture did grew multidrug-resistant Enterobacter sensitive to Avycaz and the patient has clinically responded to it with finish his course of therapy while inpatient no need for antibiotic on discharge Dictation was produced using [employer] dictation software. please excuse any grammatical, word or spelling errors.
[2024-08-29 17:15] LABS: Glucose,Whole Blood 148 mg/dL (70-110)
--- NOTE | 2024-08-29 18:48 | P.PN ---
Subjective Progress Note Date: 08/29/24 HISTORY OF PRESENT ILLNESS: This is a 58-year-old male with a previous medical history significant for coronary artery disease status post myocardial infarction back in 2014 and in 2022 status post PCI of the LAD as well as LCx, last stent placed was in 2022, hypertension and hypertensive cardiovascular disease, mixed hyperlipidemia, diabetes mellitus type 2, legally blind, history of ischemic cerebrovascular accident in the past with left-sided weakness, history of recurrent TIA, history of enlarged prostate, history of anxiety and depressive disorder, history of end-stage renal disease on hemodialysis Thursday and Thursday via fistula in the left upper extremity, patient was recently hospitalized at [facility] initially on June 16, 2024 after he was admitted for chest pain, at that time he underwent left heart catheterization bilaterally that showed normal LV diastolic and pressure, it did show a normal left main artery, LAD was normal with minimal stenosis in the midportion to the distal portion about 60%, the left circumflex artery was patent where the stents were placed, minimal irregularities, the RCA was totally occluded in the proximal portion, there was collateral from the LAD to distal RCA, patient then was discharged from the hospital, patient has been following up with me as an outpatient in a regular basis, apparently yesterday came to the office with increased abdominal pain associated with intractable nausea and vomiting not able to keep anything down, I have seen the patient in my office twice in the last week and he has been complaining of increased abdominal pain associated with intractable nausea and vomiting not able to keep anything down, patient was sent to the emergency department for evaluation initially was placed by Dr. Chahal on Bactrim for Enterobacter however he was not able to tolerate the antibiotic very well, therefore he came to my office and put him on doxycycline 100 mg orally twice every day which she could not tolerate either he was sent to the ER for treatment of Enterobacter UTI due to Garcia catheterization and he was started on Fortaz and he was admitted to hospital for evaluation patient has missed his dialysis today his last dialysis was on Thursday, because of that he was admitted to the hospital for evaluation by infectious disease, urology as well as nephrology. 08/24: Patient is laying down in bed in no apparent distress, he is drinking the oral contrast for his CT scan of the abdomen pelvis that ordered with oral contrast by infectious ease, he denies any chest pain, he has no shortness of breath, his blood pressure is much better, he is getting his hemodialysis, he is planning to hopefully get out of the hospital in the next 24 hours if you get the results of the culture, patient had failed outpatient treatment with Bactrim as well as doxycycline, he does have Enterobacter on the last culture, we will continue current IV antibiotic as planned by ID Avycaz 2.5 g IV piggyback daily. 08/25: Patient is feeling better today, he had an episode of nausea and vomiting CAT scan of the abdomen/pelvis that was done did not show evidence of acute colitis or any hydronephrosis did show evidence of constipation, continue current bowel care, continue with dialysis as indicated, urine culture showing gram-negative bacilli, we will continue with Avycaz 2.5 g piggyback every 24 hours, infectious disease following, Garcia catheter has been changed, patient will likely be discharged home in the next 24 hours if urine culture is back. 08/26: Patient is laying down in bed in no apparent distress, he did not have any fever or chills at this time, he has been tolerating his IV antibiotic Avycaz 2.5 g IV piggyback every 24 hours, that is sensitive the urine culture showing Enterobacter La[place] that is resistant to a lot of antibiotic, and the patient had failed outpatient treatment with Bactrim as well as doxycycline, due to intractable nausea and vomiting, therefore will continue patient on IV antibiotic for a total of 7 days, patient will likely require to finish 7-day course of IV antibiotic. 08/27: Patient sitting up in bed is feeling a lot better today, he has been treated for multidrug-resistant organism including Enterobacter Clocae with Avycaz 2.5 g of piggyback every 24 hours, this is day 4 of 7 he will be done with the treatment on Thursday and then he can be discharged after dialysis. Patient was not able to tolerate oral doxycycline and oral Bactrim due to intrac table nausea and vomiting 08/28: Patient is sitting up in bed in no apparent distress, he is feeling a lot better, he denies any chest pain, shortness of breath, he is tolerating his diet very well, he has no fever or chills at this time, his urine is clear, he has been treated for multidrug-resistant organism with Enterobacter currently on Avycaz 2.5 g every back every 24 hours, will continue with that today is day #5 of 7, patient will be maintained on that for a few more days and he can be dis charged home after that. 08/29: Patient is doing a lot better today, he denies any chest pain, shortness of breath, he is sitting up in bed in no apparent distress, he has not had a bowel movement today, he scheduled for dialysis tomorrow morning, patient is getting Avycaz 2.5 g IV piggyback every 24 hours, will continue that for another 24 hours, patient will conclude his treatment by tomorrow morning will finish dialysis and can be discharged home tomorrow morning no need for IV antibiotic after that REVIEW OF SYSTEMS: Constitutional: No documented fever, no chills, no night sweats. Significant weight change. Generalized weakness, fatigue or lethargy. No daytime sleepiness. EENT: No headache. Patient is legally blind, positive for loss of vision. No loss of Hearing, no ringing in the ears, no dizziness. No nasal drainage or congestion. No epistaxis. No sore throat. Lungs: Positive for shortness of breath, no cough, no sputum production. No wheezing. Reports dyspnea with activity. Cardiovascular: Positive for chest pain, no lower extremity edema. No palpitations. No paroxysmal nocturnal dyspnea. No orthopnea. No lightheadedness or dizziness. No syncopal episodes. Abdominal: Reports abdominal pain. Positive for nausea, vomiting. No diarrhea. Positive for constipation. No bloody stool reports loss of appetite. Genitourinary: No dysuria, increased frequency, urgency. No urinary retention. Musculoskeletal: No myalgias. No muscle weakness, no gait dysfunction, no frequent falls. No back pain. No neck pain. Integumentary: No wounds, no lesions. No rash or pruritus. No unusual bruising. No change in hair or nails. Neurologic: No aphasia. No facial droop. No change in mentation. No head injury. No headache. No paralysis. Positive for paresthesia due to diabetic polyneuropathy Psychiatric: Positive for depression. No anxiety. No mood swings. Endocrine: Positive for abnormal blood sugars. Significant weight change. PHYSICAL EXAMINATION: General: 58-year-old male laying down in bed in no apparent distress. HEENT: Head is atraumatic, normocephalic, pupils were equal round reactive to light and recommendation, extraocular muscle movement were intact, sclera nonicteric, conjunctivae were pale, mucous membranes of the mouth are somewhat dry. Neck: Supple, no JVP, normal carotid upstroke bilaterally, no lymphadenopathy. Chest: Decreased breath sounds at the bases, few rhonchi, no expiratory wheezes, no chest wall tenderness, no intercostal retractions. Heart: First heart sound is normal, second heart sounds normal systolic ejection murmur 2/6 located in the left sternal border. Abdomen: Soft, mild tenderness in the epigastric as well as left lower quadrant mildly distended, positive bowel sounds. Extremities: There is no edema no calf tenderness DP +2 bilaterally. Neurologic examination: Patient is awake alert and oriented x3, cranial nerves II-12 appear grossly intact, left-sided weakness that has been chronic. ASSESSMENT AND PLAN: 1. Enterobacter cloacae UTI due to chronic indwelling Garcia catheterization continue patient on Avycaz 2-1/2 g IV piggyback daily the urine culture is sensitive to the same antibiotic we will continue the same this is 2. End-stage renal disease on hemodialysis Thursday and Thursday. Consult nephrology for hemodialysis ordered. 3. anemia of chronic kidney disease continue with Aranesp 60 mcg subcutaneously once every week. 4. Coronary artery disease status post recent heart catheterization 06/17/2024 that showed stable disease with patent stented arteries of the LAD and LCx. Continue patient on metoprolol ER 50 mg orally once every day, isosorbide mononitrate 30 mg orally once every day, hydralazine 50 mg orally 3 times every day, atorvastatin 80 mg once every day, ranolazine 500 mg orally twice every day, continue aspirin and Plavix 5. Hypertension and hypertensive cardiovascular disease. Continue patient on metoprolol ER 50 mg once every day, hydralazine 50 mg orally 3 times every day, losartan 25 mg once every day. 6. Mixed hyperlipidemia. Continue patient on atorvastatin 80 mg once every day, monitor the patient lipid panel, keep LDL 55 7. PAD. Stable at this time. Continue atorvastatin for secondary prevention. 8. Diabetes mellitus type 2 . Continue patient on Levemir 17 units at bedtime along with 9 units before each meal 3 times every day, monitor the patient blood sugar before each meal and bedtime. 9. History of CVA in the past with left-sided weakness and recurrent TIA. Continue patient on atorvastatin 80 mg once every day, continue patient on Plavix 75 mg once every day as well as aspirin 80 mg every day. 10. urinary retention due to hypotonic bladder status post chronic Garcia catheterization, patient has been on Flomax 0.4 mg once every day has been following with Dr. Chahal as an outpatient, patient may need to self catheterize himself however he is legally blind therefore he will continue with Garcia catheter force of his life. 11. History of gout. Continue patient on allopurinol 100 mg once every day. 12. History of anxiety and depressive disorder. Continue citalopram 60 mg orally once every day. 13. Anemia in part due to chronic kidney disease still in part due to hiatal hernia and possible GI loss continue patient on Aranesp 60 mcg subcutaneously once every week. 14. GI prophylaxis. Continue patient on Protonix 40 mg orally twice every day. 15. DVT prophylaxis. Start the patient on heparin 5000 subcutaneous every 12 hours. 16. Patient will be discharged home tomorrow morning after dialysis Objective - Vital Signs Vital signs: Vital Signs Temp 98.1 F 08/29/24 02:21 Pulse 58 L 08/29/24 02:21 Resp 14 08/29/24 02:21 BP 148/57 08/29/24 02:21 Pulse Ox 99 08/29/24 02:21 FiO2 Intake & Output 08/28/24 08/29/24 08/29/24 18:59 06:59 18:59 Intake Total 480 200 Output Total 850 900 Balance -370 -700 Intake: Oral 480 200 Output: Urine 850 900 Other: Voiding Method Indwelling Catheter Indwelling Catheter - Labs CBC & Chem 7: 08/29/24 05:10 08/29/24 05:10 Labs: Abnormal Lab Results - Last 24 Hours (Table) 08/28/24 08/28/24 Range/Units 12:25 20:33 POC Glucose (mg/dL) 128 H 194 H (70-110) mg/dL
[2024-08-29 20:35] LABS: Glucose,Whole Blood 215 mg/dL (70-110)
[2024-08-30 05:53] LABS: Glucose,Whole Blood 120 mg/dL (70-110)
--- NOTE | 2024-08-30 09:48 | P.DS ---
Providers Date of admission: 08/23/24 15:49 Expected date of discharge: 08/30/24 Attending physician: Diana Broderick Consults: 08/23/24 15:41 Consult Physician Urgent Consulting Provider: Lauren Angel Consult Reason/Comments: abnormal ua Do you want consulting provider notified?: Yes Consult Physician Urgent Consulting Provider: Kristina Gomez Consult Reason/Comments: esrd on hd Do you want consulting provider notified?: Yes 08/23/24 16:00 Consult Physician Urgent Consulting Provider: Fransico Chahal Consult Reason/Comments: Urinary Do you want consulting provider notified?: Yes Primary care physician: Diana Broderick Hospital Course: HISTORY OF PRESENT ILLNESS: This is a 58-year-old male with a previous medical history significant for coronary artery disease status post myocardial infarction back in 2014 and in 2022 status post PCI of the LAD as well as LCx, last stent placed was in 2022, hypertension and hypertensive cardiovascular disease, mixed hyperlip idemia, diabetes mellitus type 2, legally blind, history of ischemic cerebrovascular accident in the past with left-sided weakness, history of recurrent TIA, history of enlarged prostate, history of anxiety and depressive disorder, history of end-stage renal disease on hemodialysis Thursday and Thursday via fistula in the left upper extremity, patient was recently hospitalized at [facility] initially on June 16, 2024 after he was admitted for chest pain, at that time he underwent left heart catheterization bilaterally that showed normal LV diastolic and pressure, it did show a normal left main artery, LAD was normal with minimal stenosis in the midportion to the distal portion about 60%, the left circumflex artery was patent where the stents were placed, minimal irregularities, the RCA was totally occluded in the proximal portion, there was collateral from the LAD to distal RCA, patient then was discharged from the hospital, patient has been following up with me as an outpatient in a regular basis, apparently yesterday came to the office with increased abdominal pain associated with intractable nausea and vomiting not able to keep anything down, I have seen the patient in my office twice in the last week and he has been complaining of increased abdominal pain associated with intractable nausea and vomiting not able to keep anything down, patient was sent to the emergency department for evaluation initially was placed by Dr. Chahal on Bactrim for Enterobacter however he was not able to tolerate the antibiotic very well, therefore he came to my office and put him on doxycycline 100 mg orally twice every day which she could not tolerate either he was sent to the ER for treatment of Enterobacter UTI due to Garcia catheterization and he was started on Fortaz and he was admitted to hospital for evaluation patient has missed his dialysis today his last dialysis was on Thursday, because of that he was admitted to the hospital for evaluation by infectious disease, urology as well as nephrology. 08/24: Patient is laying down in bed in no apparent distress, he is drinking the oral contrast for his CT scan of the abdomen pelvis that ordered with oral contr ast by infectious ease, he denies any chest pain, he has no shortness of breath, his blood pressure is much better, he is getting his hemodialysis, he is planning to hopefully get out of the hospital in the next 24 hours if you get the results of the culture, patient had failed outpatient treatment with Bactrim as well as doxycycline, he does have Enterobacter on the last culture, we will continue current IV antibiotic as planned by ID Avycaz 2.5 g IV piggyback daily. 08/25: Patient is feeling better today, he had an episode of nausea and vomiting CAT scan of the abdomen/pelvis that was done did not show evidence of acute colitis or any hydronephrosis did show evidence of constipation, continue current bowel care, continue with dialysis as indicated, urine culture showing gram-negative bacilli, we will continue with Avycaz 2.5 g piggyback every 24 hours, infectious disease following, Garcia catheter has been changed, patient will likely be discharged home in the next 24 hours if urine culture is back. 08/26: Patient is laying down in bed in no apparent distress, he did not have any fever or chills at this time, he has been tolerating his IV antibiotic Avycaz 2.5 g IV piggyback every 24 hours, that is sensitive the urine culture showing Enterobacter [place] that is resistant to a lot of antibiotic, and the patient had failed outpatient treatment with Bactrim as well as doxycycline, due to intractable nausea and vomiting, therefore will continue patient on IV antibiotic for a total of 7 days, patient will likely require to finish 7-day course of IV antibiotic. 08/27: Patient sitting up in bed is feeling a lot better today, he has been treated for multidrug-resistant organism including Enterobacter Clocae with Avycaz 2.5 g of piggyback every 24 hours, this is day 4 he will be done with the treatment on Thursday and then he can be discharged after dialysis. Patient was not able to tolerate oral doxycycline and oral Bactrim due to intractable nausea and vomiting 08/28: Patient is sitting up in bed in no apparent distress, he is feeling a lot better, he denies any chest pain, shortness of breath, he is tolerating his diet very well, he has no fever or chills at this time, his urine is clear, he has been treated for multidrug-resistant organism with Enterobacter currently on Avycaz 2.5 g every back every 24 hours, will continue with that today is day #5 of 7, patient will be maintained on that for a few more days and he can be discharged home after that. 08/29: Patient is doing a lot better today, he denies any chest pain, shortness of breath, he is sitting up in bed in no apparent distress, he has not had a bowel movement today, he scheduled for dialysis tomorrow morning, patient is getting Avycaz 2.5 g IV piggyback every 24 hours, will continue that for another 24 hours, patient will conclude his treatment by tomorrow morning will finish dialysis and can be discharged home tomorrow morning no need for IV antibiotic after that 08/30: Patient will be finishing day #7 of IV antibiotic Avycaz no more antibiotic is needed as an outpatient, patient will be getting hemodialysis today, and he will be discharged home and follow-up with me as an outpatient in 1 week. Discharge diagnoses: 1. Enterobacter cloacae UTI due to chronic indwelling Garcia catheterization continue patient on Avycaz 2-1/2 g IV piggyback daily did receive 7 out of 7 days. 2. End-stage renal disease on hemodialysis Thursday and Thursday. 3. anemia of chronic kidney disease 4. Coronary artery disease status post recent heart catheterization 06/17/2024 that showed stable disease with patent stented arteries of the LAD and LCx. 5. Hypertension and hypertensive cardiovascular disease. 6. Mixed hyperlipidemia. 7. PAD. 8. Diabetes mellitus type 2 . 9. History of CVA in the past with left-sided weakness and recurrent TIA. 10. urinary retention due to hypotonic bladder status post chronic Garcia catheterization, 11. History of gout. 12. History of anxiety and depressive disorder. 13. Anemia in part due to chronic kidney disease Patient Condition at Discharge: Stable Plan - Discharge Summary New Discharge Prescriptions: No Action Pantoprazole [Protonix] 40 mg PO BID Tamsulosin [Flomax] 0.4 mg PO BID Citalopram Hydrobromide [CeleXA] 20 mg PO DAILY allopurinoL [Zyloprim] 100 mg PO DAILY Atorvastatin [Lipitor] 80 mg PO HS Citalopram Hydrobromide [CeleXA] 40 mg PO DAILY Furosemide [Lasix] 80 mg PO DAILY Nitroglycerin Sl Tabs [Nitrostat] 0.4 mg SL Q5M PRN PRN Reason: Chest Pain Calcium Carbonate [Tums] 500 mg PO TID Loratadine [Claritin] 10 mg PO DAILY #30 tab Isosorbide Mononitrate ER [Imdur] 30 mg PO DAILY #90 tab Insulin Glargine,Hum.rec.anlog [Lantus Solostar Pen] 17 units SQ HS Insulin Lispro [humaLOG Kwikpen] 9 unit SQ ACHS prednisoLONE ACETATE 1% OPHTH [Pred Forte 1%] 1 drop BOTH EYES DIRECTED Folic Acid/Vit B Complex and C [Nephro-Cirilo Tablet] 0.8 mg PO DAILY Metoprolol Succinate (ER) [Toprol XL] 50 mg PO DAILY Losartan [Cozaar] 25 mg PO DAILY Ranolazine [Ranexa] 500 mg PO Q12HR #60 tab hydrALAZINE HCL [Apresoline] 50 mg PO TID Clopidogrel [Plavix] 75 mg PO DAILY Aspirin 81 mg PO DAILY Oxymetazoline 0.05% Nasl Keo [Afrin 0.05% Nasal Keo] 2 spray NASAL BID IN N #1 dispenser PRN Reason: Congestion Ofloxacin 0.3% Ophth Soln [Ocuflox Ophth Soln] 1 drop BOTH EYES DIRECTED Ketorolac 0.5% Ophth Soln [Acular 0.5%] 1 drop BOTH EYES DIRECTED Doxycycline Hyclate 100 mg PO BID Discharge Medication List Pantoprazole [Protonix] 40 mg PO BID 11/05/17 [History] Tamsulosin [Flomax] 0.4 mg PO BID 11/05/17 [History] Citalopram Hydrobromide [CeleXA] 20 mg PO DAILY 12/12/18 [History] allopurinoL [Zyloprim] 100 mg PO DAILY 04/05/19 [History] Atorvastatin [Lipitor] 80 mg PO HS 12/30/19 [History] Citalopram Hydrobromide [CeleXA] 40 mg PO DAILY 06/29/20 [History] Folic Acid/Vit B Complex and C [Nephro-Cirilo Tablet] 0.8 mg PO DAILY 05/05/23 [History] Losartan [Cozaar] 25 mg PO DAILY 09/19/23 [History] Metoprolol Succinate (ER) [Toprol XL] 50 mg PO DAILY 09/19/23 [History] Ranolazine [Ranexa] 500 mg PO Q12HR #60 tab 09/21/23 [Rx] Furosemide [Lasix] 80 mg PO DAILY 10/16/23 [History] Nitroglycerin Sl Tabs [Nitrostat] 0.4 mg SL Q5M PRN 10/16/23 [History] hydrALAZINE HCL [Apresoline] 50 mg PO TID 04/12/24 [History] Calcium Carbonate [Tums] 500 mg PO TID 06/16/24 [History] Clopidogrel [Plavix] 75 mg PO DAILY 06/16/24 [History] Aspirin 81 mg PO DAILY 06/20/24 [History] Loratadine [Claritin] 10 mg PO DAILY #30 tab 06/24/24 [Rx] Oxymetazoline 0.05% Nasl Keo [Afrin 0.05% Nasal Keo] 2 spray NASAL BID PRN #1 dispenser 06/24/24 [Rx] Isosorbide Mononitrate ER [Imdur] 30 mg PO DAILY #90 tab 07/01/24 [Rx] Insulin Glargine,Hum.rec.anlog [Lantus Solostar Pen] 17 units SQ HS 07/12/24 [History] Insulin Lispro [humaLOG Kwikpen] 9 unit SQ ACHS 07/12/24 [History] Ketorolac 0.5% Ophth Soln [Acular 0.5%] 1 drop BOTH EYES DIRECTED 08/09/24 [History] Ofloxacin 0.3% Ophth Soln [Ocuflox Ophth Soln] 1 drop BOTH EYES DIRECTED 08/09/24 [History] prednisoLONE ACETATE 1% OPHTH [Pred Forte 1%] 1 drop BOTH EYES DIRECTED 08/09/24 [History] Doxycycline Hyclate 100 mg PO BID 08/23/24 [History] Follow up Appointment(s)/Referral(s): [facility], [NON-STAFF] - As Needed Diana Broderick MD [Primary Care Provider] - 1-2 days [facility] [NON-[facility]FF] - As Needed ([id number] @ [id number])
--- NOTE | 2024-08-30 12:25 | P.PN ---
Subjective Patient is seen in follow-up for end-stage renal disease. Resting in bed. No active complaints. Scheduled for dialysis today. Vital signs are stable. General: No acute distress. HEENT: Head exam is unremarkable. LUNGS: No audible rhonchi or wheezes. HEART: Rate and Rhythm are regular. ABDOMEN: Nontender. EXTREMITITES: No edema. Objective - Vital Signs Vital signs: Vital Signs Temp 97.7 F 08/30/24 08:00 Pulse 67 08/30/24 08:00 Resp 16 08/30/24 08:00 BP 111/59 08/30/24 08:00 Pulse Ox 99 08/30/24 08:00 FiO2 Intake & Output 08/29/24 08/30/24 08/30/24 18:59 06:59 18:59 Intake Total 236 118 Output Total 800 875 Balance -564 -875 118 Intake: Oral 236 118 Output: Urine 800 875 Other: Voiding Method Indwelling Catheter Indwelling Catheter # Voids 3 # Bowel Movements 0 - Labs CBC & Chem 7: 08/29/24 05:10 08/29/24 05:10 Labs: Abnormal Lab Results - Last 24 Hours (Table) 08/29/24 08/29/24 08/29/24 Range/Units 14:52 17:14 20:34 POC Glucose (mg/dL) 247 H 148 H 215 H (70-110) mg/dL 08/30/24 Range/Units 05:51 POC Glucose (mg/dL) 120 H (70-110) mg/dL Assessment and Plan Plan: Assessment: 1. End-stage renal disease maintained on hemodialysis on Thursday schedule. 2. 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 Garcia catheter changed this admission. Follows with urology. On Flomax. 3. UTI on antibiotics. Urine culture positive for Enterobacter. ID following. 4. Anemia of chronic kidney disease maintained on Aranesp. 5. Diabetes mellitus. 6. Hypertension with chronic kidney disease. Stable. Plan: Hemodialysis today.
--- NOTE | 2024-08-30 12:59 | P.PN ---
Subjective Progress Note Date: 08/30/24 Principal diagnosis: Reason for follow-up is a UTI Patient is a 58-year-old male with a past medical history significant for hypertension hyperlipidemia reflux diabetes mellitus CVA TIA coronary artery disease end-stage renal disease on dialysis patient still makes urine and did have indwelling Garcia catheter with recent outpatient culture positive for drug-resistant Enterobacter presented to hospital with nausea and vomiting and concern for failing outpatient therapy. On today's evaluation that is 08/30/2024, Patient is afebrile this morning patient denies having any chest pain shortness of breath or cough, the patient is currently on room air, patient denies any abdominal pain no diarrhea no nausea no vomiting, feeling better no new symptoms. No new lab has been repeated today repeat urine is negative Objective - Vital Signs Vital signs: Vital Signs Temp 97.7 F 08/30/24 08:00 Pulse 67 08/30/24 08:00 Resp 16 08/30/24 08:00 BP 111/59 08/30/24 08:00 Pulse Ox 99 08/30/24 08:00 FiO2 Intake & Output 08/29/24 08/30/24 08/30/24 18:59 06:59 18:59 Intake Total 236 118 Output Total 800 875 Balance -564 -875 118 Intake: Oral 236 118 Output: Urine 800 875 Other: Voiding Method Indwelling Catheter Indwelling Catheter # Voids 3 # Bowel Movements 0 - Exam GENERAL DESCRIPTION: Middle-age male lying in bed in no distress RESPIRATORY SYSTEM: Unlabored breathing , decreased breath sounds at bases HEART: S1 S2 regular rate and rhythm , ABDOMEN: Soft , no tenderness EXTREMITIES: No edema feet - Labs CBC & Chem 7: 08/29/24 05:10 08/29/24 05:10 Labs: Abnormal Lab Results - Last 24 Hours (Table) 08/29/24 08/29/24 08/29/24 Range/Units 12:06 14:52 17:14 POC Glucose (mg/dL) 165 H 247 H 148 H (70-110) mg/dL 08/29/24 08/30/24 Range/Units 20:34 05:51 POC Glucose (mg/dL) 215 H 120 H (70-110) mg/dL Assessment and Plan (1) Nausea & vomiting Current Visit: Yes Status: Acute Code(s): R11.2 - NAUSEA WITH VOMITING, UNSPECIFIED SNOMED Code(s): 89986382 (2) UTI (urinary tract infection) Current Visit: Yes Status: Acute Code(s): N39.0 - URINARY TRACT INFECTION, SITE NOT SPECIFIED SNOMED Code(s): 37465280 Plan: 1-patient presented hospital with nausea vomiting lower abdominal discomfort in this patient who recently did have a urine culture positive on 08/14/2024 with a multiresistant Enterobacter with the patient and also wanted to Bactrim, tetracycline now with persistent symptoms however the UA has not been significantly positive with a question of possible other abdominal source for his symptoms. 2-patient did have CT of abdominal pelvis did not show any colitis abscess or hydronephrosis 3-patient urine culture did grew multidrug-resistant Enterobacter sensitive to Avycaz, patient will receive his last dose after dialysis today can be given earlier instead of 6 PM and can go home from ID standpoint discussed with the nursing staff Dictation was produced using [employer] dictation software. please excuse any grammatical, word or spelling errors. Time with Patient: Less than 30
[2024-08-30 13:12] LABS: Glucose,Whole Blood 117 mg/dL (70-110)
[2024-08-30] MEDS: CEFTAZIDIME/AVIBACTAM 0.94 GM in SODIUM CHLORIDE 0.9% 50 ML IVPB SCH (13:48)
[2024-08-30 14:11] VITALS: BMI 26.1
[2024-08-30 16:22] VITALS: BP 120/54; PULSE 63; RESP 16; TEMP 98
== END 2024-08-30 16:14 | disposition home health service (06) | DRG 698 ==
LOC: EC 12:26 → 6NMEDSUR 15:48 → OBSVTOIN 15:49 → 6NMEDSUR 20:45
PROVIDERS: ADMIT Internal Medicine; ATTEND Internal Medicine
PROC: 5A1D70Z Performance of Urinary Filtration, Intermittent, Less than 6 Hours Per Day (ICD-10-PCS; principal; 2024-08-24)
DX: T83.511A Infection and inflammatory reaction due to indwelling urethral catheter, initial encounter (principal); N18.6 End stage renal disease; I13.11 Hypertensive heart and chronic kidney disease without heart failure, with stage 5 chronic kidney disease, or end stage renal disease; D63.1 Anemia in chronic kidney disease; E83.9 Disorder of mineral metabolism, unspecified; I69.354 Hemiplegia and hemiparesis following cerebral infarction affecting left non-dominant side; E11.22 Type 2 diabetes mellitus with diabetic chronic kidney disease; M06.9 Rheumatoid arthritis, unspecified; F32.A Depression, unspecified; Z16.24 Resistance to multiple antibiotics; E11.40 Type 2 diabetes mellitus with diabetic neuropathy, unspecified; E11.51 Type 2 diabetes mellitus with diabetic peripheral angiopathy without gangrene; Z79.4 Long term (current) use of insulin; B96.89 Other specified bacterial agents as the cause of diseases classified elsewhere; N31.2 Flaccid neuropathic bladder, not elsewhere classified; N40.1 Benign prostatic hyperplasia with lower urinary tract symptoms; R33.8 Other retention of urine; K21.9 Gastro-esophageal reflux disease without esophagitis; M19.90 Unspecified osteoarthritis, unspecified site; M10.9 Gout, unspecified; K59.00 Constipation, unspecified; Y84.6 Urinary catheterization as the cause of abnormal reaction of the patient, or of later complication, without mention of misadventure at the time of the procedure; R25.1 Tremor, unspecified; N39.0 Urinary tract infection, site not specified; E78.2 Mixed hyperlipidemia; F41.9 Anxiety disorder, unspecified; H54.8 Legal blindness, as defined in USA; H91.90 Unspecified hearing loss, unspecified ear; I25.10 Atherosclerotic heart disease of native coronary artery without angina pectoris; I25.2 Old myocardial infarction; K44.9 Diaphragmatic hernia without obstruction or gangrene; Z79.02 Long term (current) use of antithrombotics/antiplatelets; Z79.82 Long term (current) use of aspirin; Z79.899 Other long term (current) drug therapy; Z90.79 Acquired absence of other genital organ(s); Z95.5 Presence of coronary angioplasty implant and graft; Z88.5 Allergy status to narcotic agent; Z88.8 Allergy status to other drugs, medicaments and biological substances; Z91.041 Radiographic dye allergy status; Z71.3 Dietary counseling and surveillance
CPT/HCPCS: 36415; 71046; 74019; 74176; 80048; 80053; 81001; 82150; 83690; 84100; 85025; 87077; 87086; 87186; 90935; 93005; 96365; 96366; 96372; 96375; 96376; 99285

== ENCOUNTER 2024-10-01 20:07 | Emergency (ER) | payer MEDICARE, OTHER ==
[2024-10-01 20:14] VITALS: RESP 18
--- NOTE | 2024-10-01 20:41 | ED ---
Chest Pain HPI - General Chief Complaint: Chest Pain Stated Complaint: Chest Pain,Numbness in both legs Time Seen by Provider: 10/01/24 20:23 Source: patient Mode of arrival: wheelchair Limitations: no limitations - History of Present Illness Initial Comments: Kashmir Tinajero is a 59-year-old gentleman with a history of insulin-dependent diabetes, end-stage renal disease on dialysis Thursday. Patient presents the ER for evaluation of pain in the right breast and numbness of his bilateral lower extremities. Patient reports pain began in his right breast in the fall he reported it to his sister in May and discussed it with his primary care doctor last month and was advised that the tenderness under the right nipple is likely related to a side effect of the medication he is on no patient is not certain what medication could be causing this. Patient states that it has becoming more bothersome though is not noted any swelling or discoloration or drainage from the nipple. Pain is worse with palpation but occasionally tender just with soft touch or as close rubbing over the area. Patient also notes that he has numbness of his bilateral lower extremities, he has talked to his senior analyst about this he has been given creams for it he cannot take any regular medication for peripheral neuropathy due to his kidney function. Patient states that the numbness seems to be more bothersome recently. - Related Data Home Medications Medication Instructions Recorded Confirmed Pantoprazole [Protonix] 40 mg PO BID 11/05/17 08/23/24 Tamsulosin [Flomax] 0.4 mg PO BID 11/05/17 08/23/24 Citalopram Hydrobromide [CeleXA] 20 mg PO DAILY 12/12/18 08/23/24 allopurinoL [Zyloprim] 100 mg PO DAILY 04/05/19 08/23/24 Atorvastatin [Lipitor] 80 mg PO HS 12/30/19 08/23/24 Citalopram Hydrobromide [CeleXA] 40 mg PO DAILY 06/29/20 08/23/24 Folic Acid/Vit B Complex and C 0.8 mg PO DAILY 05/05/23 08/23/24 [Nephro-Cirilo Tablet] Losartan [Cozaar] 25 mg PO DAILY 09/19/23 08/23/24 Metoprolol Succinate (ER) [Toprol 50 mg PO DAILY 09/19/23 08/23/24 XL] Furosemide [Lasix] 80 mg PO DAILY 10/16/23 08/23/24 Nitroglycerin Sl Tabs [Nitrostat] 0.4 mg SL Q5M PRN 10/16/23 08/23/24 hydrALAZINE HCL [Apresoline] 50 mg PO TID 04/12/24 08/23/24 Calcium Carbonate [Tums] 500 mg PO TID 06/16/24 08/23/24 Clopidogrel [Plavix] 75 mg PO DAILY 06/16/24 08/23/24 Aspirin 81 mg PO DAILY 06/20/24 08/23/24 Insulin Glargine,Hum.rec.anlog 17 units SQ HS 07/12/24 08/23/24 [Lantus Solostar Pen] Insulin Lispro [humaLOG Kwikpen] 9 unit SQ ACHS 07/12/24 08/23/24 Ketorolac 0.5% Ophth Soln [Acular 1 drop BOTH EYES DIRECTED 08/09/24 08/23/24 0.5%] Ofloxacin 0.3% Ophth Soln [Ocuflox 1 drop BOTH EYES DIRECTED 08/09/24 08/23/24 Ophth Soln] prednisoLONE ACETATE 1% OPHTH 1 drop BOTH EYES DIRECTED 08/09/24 08/23/24 [Pred Forte 1%] Previous Rx's Medication Instructions Recorded Ranolazine [Ranexa] 500 mg PO Q12HR #60 tab 09/21/23 Loratadine [Claritin] 10 mg PO DAILY #30 tab 06/24/24 Oxymetazoline 0.05% Nasl [place] 2 spray NASAL BID PRN #1 dispenser 06/24/24 [Afrin 0.05% Nasal [place]] Isosorbide Mononitrate ER [Imdur] 30 mg PO DAILY #90 tab 07/01/24 Lactulose [Cephulac] 30 gm PO BID #1800 ml 08/30/24 Allergies Allergy/AdvReac Type Severity Reaction Status Date / Time hydromorphone AdvReac Confusion Verified 10/01/24 20:14 Iodinated Contrast Media AdvReac Nausea & Verified 10/01/24 20:14 [Iodinated Contrast- Oral Vomiting and IV Dye] sucralfate AdvReac Nausea & Verified 10/01/24 20:14 Vomiting Review of Systems ROS Statement: Those systems with pertinent positive or pertinent negative responses have been documented in the HPI. ROS Other: All systems not noted in ROS Statement are negative. EKG Findings - EKG Comments: EKG Findings:: EKG interpreted by me EKG obtained due to chest pain EKG obtained at 2024 rate is 60 rhythm sinus normal axis, normal intervals AR 186 QRS 101 QTc is 496 this is borderline prolonged, there are no acute ST elevations or depressions there is no evidence of ischemia or infarction Past Medical History Past Medical History: Coronary Artery Disease (CAD), Chest Pain / Angina, CVA/TIA, Diabetes Mellitus, Eye Disorder, GERD/Reflux, Hearing Disorder / Deafness, Hyperlipidemia, Hypertension, Myocardial Infarction (AL), Prostate Disorder, Renal Disease, Rheumatoid Arthritis (RA) Additional Past Medical History / Comment(s): AL X2 in 2014 and 02/2023., 02 3L/NC., Hx stroke Apr 2017. , hx tia's ., left side weakness., Migranes., Diabetic neuropathy arms and legs, tremors off and on, circulation problems, uses quad cane and wheelchair., Kidney disease with dialysis [facility]. Hx Pancreatitis., Legally blind, some trouble hearing. Enlarged prostate, trouble urinating. , hx of recent uti's., anemia., constipation Last Myocardial Infarction Date:: 02/2023 History of Any Multi-Drug Resistant Organisms: CRE, Other MDRO Date of last positivie culture/infection: 08/14/24 MDRO Source:: urine Past Surgical History: Cholecystectomy, Heart Catheterization, Heart Catheterization With Stent, Heart Catheterization With Stent, Hernia Repair, Prostate Surgery Additional Past Surgical History / Comment(s): Dialysis Port Placed - 03/14/23, HIATAL HERNIA REPAIR - 01/23/21., states hx 5 heart caths with 5 stents. Past Anesthesia/Blood Transfusion Reactions: No Reported Reaction Additional Past Anesthesia/Blood Transfusion Reaction / Comment(s): . Date of Last Stent Placement:: 05/07/23 Past Psychological History: Anxiety, Depression Smoking Status: Never smoker Past Alcohol Use History: None Reported Past Drug Use History: None Reported - Past Family History Mother Family Medical History: CVA/TIA, Diabetes Mellitus, Hypertension Additional Family Medical History / Comment(s): Parkinson's. Father Family Medical History: Myocardial Infarction (AL) Additional Family Medical History / Comment(s): Father of a AL in his 50s. General Exam - General Exam Comments Initial Comments: Physical Exam GENERAL: Chronically ill-appearing gentleman, appears older than stated age, no acute distress HENT: Normocephalic, Atraumatic. EYES: PERRL, EOMI PULMONARY: Unlabored respirations. CARDIOVASCULAR: RRR Fistula in the right forearm ABDOMEN: Non-distended SKIN: Pale, dry Lower extremities are thin, hairless : Deferred NEUROLOGIC: Alert and oriented MUSCULOSKELETAL: Moving all extremities with no apparent injury PSYCHIATRIC: No SI/HI Limitations: no limitations Course Vital Signs 10/01/24 10/01/24 10/01/24 20:09 21:31 22:23 Temperature 98.0 F Pulse Rate 62 58 L 56 L Respiratory 18 18 18 Rate Blood Pressure 164/70 139/81 148/71 O2 Sat by Pulse 99 97 98 Oximetry Chest Pain MDM - MDM Was pt. sent in by a medical professional or institution (, PA, HEAD USHER, urgent care, hospital, or skilled nursing...) When possible be specific @ -No Did you speak to anyone other than the patient for history (EMS, parent, family, police, friend...)? What history was obtained from this source @ -Sister at bedside Did you review nursing and triage notes (agree or disagree)? Why? @ -I reviewed and agree with nursing and triage notes Were old charts reviewed (outside hosp., previous admission, EMS record, old EKG, old radiological studies, urgent care reports/EKG's, skilled nursing records)? Report findings @ -No old charts were reviewed Differential Diagnosis (chest pain, altered mental status, abdominal pain women, abdominal pain men, vaginal bleeding, weakness, fever, dyspnea, syncope, headache, dizziness, GI bleed, back pain, seizure, CVA, palpatations, mental health)? @ Gynecomastia, abscess, cellulitis, EKG interpreted by me (3pts min.). @ -As above X-rays interpreted by me (1pt min.). @ -No acute findings CT interpreted by me (1pt min.). @ -None done U/S interpreted by me (1pt. min.). @ -None done What testing was considered but not performed or refused? (CT, X-rays, U/S, labs)? Why? @ -US of the breast - can be completed out patient What meds were considered but not given or refused? Why? @ -None Did you discuss the management of the patient with other professionals (professionals i.e. , PA, HEAD USHER, lab, RT, psych nurse, secondary social studies teacher, bark press operator, teacher, examining officer, telephonic case manager)? Give summary @ -No Was smoking cessation discussed for >3mins.? @ -No Was critical care preformed (if so, how long)? @ -No Were there social determinants of health that impacted care today? How? (Homelessness, low income, unemployed, alcoholism, drug addiction, transportation, low edu. Level, literacy, decrease access to med. care, [facility], rehab)? @ -No Was there de-escalation of care discussed even if they declined (Discuss DNR or withdrawal of care, Hospice)? DNR status @ -No What co-morbidities impacted this encounter? (DM, HTN, Smoking, COPD, CAD, Cancer, CVA, ARF, Chemo, Hep., AIDS, mental health diagnosis, sleep apnea, morbid obesity)? @ -ESRD on Dialysis, Insulin dependent diabetes Was patient admitted / discharged? Hospital course, mention meds given and route, prescriptions, significant lab abnormalities, going to OR and other pertinent info. @ -Patient was seen and evaluated, history was obtained from the patient and sister at bedside Patient with multiple months of right sided breast pain that is tender to touch but no changes in the tissue, been worsening sister brought him in today worried that this could be his heart Patient also complains of peripheral neuropathy being progressively worsening he is following with podiatry for this Labs are obtained and are expected for dialysis patient there is no critical electrolyte abnormalities. Troponin is not elevated Results were discussed with patient and sister, I recommend continued supportive care possibly an outpatient ultrasound to evaluate for breast tissue. Undiagnosed new problem with uncertain prognosis? @ -No Drug Therapy requiring intensive monitoring for toxicity (Heparin, Nitro, Insulin, Cardizem)? @ -No Were any procedures done? @ -No Diagnosis/symptom? @ -Right sided breast pain, peripheral neuropathy Acute, or Chronic, or Acute on Chronic? @ -Default Uncomplicated (without systemic symptoms) or Complicated (systemic symptoms)? @ -Default Side effects of treatment? @ -No Exacerbation, Progression, or Severe Exacerbation? @ -No Poses a threat to life or bodily function? How? (Chest pain, [place], AL, pneumonia, PE, COPD, DKA, ARF, appy, cholecystitis, CVA, Diverticulitis, Homicidal, Suicidal, threat to staff... and all critical care pts) @ -No Disposition Clinical Impression: Breast pain, right, Peripheral neuropathy Disposition: HOME SELF-CARE Condition: Stable Instructions (If sedation given, give patient instructions): Gynecomastia (ED) Is patient prescribed a controlled substance at d/c from ED?: No Referrals: Diana Broderick MD [Primary Care Provider] - 1-2 days
[2024-10-01 20:50] LABS: Basophils # (A) 0.03 10*3/uL (0.00-0.10); Basophils % (A) 0.5 %; Eosinophils # (A) 0.12 10*3/uL (0.04-0.35); Eosinophils % (A) 2.1 %; HCT 35.7 % (39.6-50.0); HGB 12.2 g/dL (13.0-17.0); Lymphocytes # (A) 1.42 10*3/uL (0.90-5.00); Lymphocytes % (A) 24.3 %; MCH 33.2 pg (27.0-32.0); MCHC 34.2 g/dL (32.0-37.0); MCV 97.3 fL (80.0-97.0); Mean Platelet Volume 8.2 fL (9.5-12.2); Monocytes # (A) 0.58 10*3/uL (0.20-1.00); Monocytes % (A) 9.9 %; Neutrophils # (A) 3.69 10*3/uL (1.80-7.70); Platelet Count 106 10*3/uL (140-440); RBC 3.67 10*6/uL (4.40-5.60); WBC 5.85 10*3/uL (4.50-10.00)
--- NOTE | 2024-10-01 21:00 | XR ---
EXAMINATION TYPE: XR chest 2V DATE OF EXAM: 10/01/2024 8:53 PM COMPARISON: 08/23/2024 CLINICAL INDICATION: Male, 59 years old with history of Chest Pain, TECHNIQUE: XR chest 2V view(s) obtained. FINDINGS: The heart size is normal. The pulmonary vasculature is normal. The lungs are clear. IMPRESSION: 1. No acute pulmonary process. [facility], , 10/01/2024 8:57 PM
[2024-10-01 21:01] LABS: ALT 40 U/L (4-49); AST 34 U/L (17-59); African American GFR (CKD) 23 (>60 ml/min/1.73 sqM); Albumin 4.4 g/dL (3.5-5.0); Alkaline Phosphatase 87 U/L (38-126); Anion Gap 9 mmol/L; Blood Urea Nitrogen 33 mg/dL (9-20); Calcium 8.3 mg/dL (8.4-10.2); Carbon Dioxide 33 mmol/L (22-30); Chloride 94 mmol/L (98-107); Glucose 147 mg/dL (74-99); Magnesium 1.9 mg/dL (1.6-2.3); Non-African American GFR(CKD) 20 (>60 ml/min/1.73 sqM); Potassium 3.8 mmol/L (3.5-5.1); Sodium 136 mmol/L (137-145); Total Bilirubin 0.5 mg/dL (0.2-1.3)
[2024-10-01 21:02] LABS: Partial Thromboplastin Time 25.1 sec (22.0-30.0); Prothrombin Time 10.9 sec (10.0-12.5)
[2024-10-01] MEDS: ONDANSETRON 4 MG/2 ML VIAL IVP STA (21:29)
[2024-10-01 22:23] VITALS: BP 148/71; PULSE 56
[2024-10-01 22:49] VITALS: TEMP 97.8
== END 2024-10-01 22:50 | disposition home or self-care (01) ==
LOC: EC 20:07
DX: N64.4 Mastodynia (principal); E11.42 Type 2 diabetes mellitus with diabetic polyneuropathy; E11.22 Type 2 diabetes mellitus with diabetic chronic kidney disease; N18.6 End stage renal disease; Z86.73 Personal history of transient ischemic attack (TIA), and cerebral infarction without residual deficits; Z88.5 Allergy status to narcotic agent; Z88.8 Allergy status to other drugs, medicaments and biological substances; Z91.041 Radiographic dye allergy status; Z99.2 Dependence on renal dialysis
CPT/HCPCS: 99285; 96374; 36415; 93005; 80053; 83735; 84484; 85025; 85610; 85730; 71046; J2405

== ENCOUNTER → 2024-10-28 | Outpatient (CLI) | payer MEDICARE, OTHER ==
--- NOTE | 2024-10-28 13:23 | MM ---
Reason for Exam: Clinical finding. Baseline mammogram. Indicated Problems: Pain of the right side (Global) for 1 Month(s). Prior Study Comparison: Patient's first Mammogram. Tissue Density: The breasts are almost entirely fatty. Findings: Analyzed By CAD. Fibroglandular tissue posterior to the nipple bilaterally. Findings compatible with gynecomastia. No new suspicious masses, calcifications or distortions. Overall Assessment: Benign, BI-RAD 2 Management: Screening Mammogram of both breasts in 1 year. Results were given to the patient verbally at the time of exam. Patient should continue monthly self-breast exams. A clinical breast exam by your physician is recommended on an annual basis. This exam should not preclude additional follow-up of suspicious palpable abnormalities. Note on Faith scores and lifetime risk: 1. A Faith score greater than 3% is considered moderate risk. If this is the case, consider specialist referral to assess eligibility for a risk reducing agent. 2. If overall lifetime risk for the development of breast cancer is 20% or higher, the patient may qualify for future screening with alternating mammogram and breast MRI. [facility], , 10/28/2024 1:19 PM. Electronically signed and approved by: Jeffrey Thompson DO
== END | disposition home or self-care (01) ==
LOC: RADMAMWWP 12:52
PROVIDERS: ATTEND Internal Medicine
DX: R92.313 Mammographic fatty tissue density, bilateral breasts (principal); R07.89 Other chest pain
CPT/HCPCS: 77066; G0279; 77062

== ENCOUNTER 2024-11-03 08:09 | Day surgery (SDC) | payer MEDICARE, OTHER ==
[2024-10-31 13:56] VITALS: BMI 25.9
[~2024-11-03 08:09] MED LIST changes: -DEXAMETHASONE SOD PHOSPHATE 4 MG/ML 1 ML VIAL IV ONE; -HYDROmorphone 0.5 MG/0.5 ML SYRINGE IVP PRN; -LACTATED RINGERS 1,000 ML IV SCH; +SODIUM CHLORIDE 0.9% 500 ML 500 ML IV SCH
[2024-11-03 08:44] VITALS: RESP 16; TEMP 98.2
[2024-11-03] MEDS: IV FLUID CONTINUATION 1,000 ML IV ONE (08:44)
[2024-11-03 08:47] LABS: Glucose,Whole Blood 212 mg/dL (70-110)
[2024-11-03] MEDS: fentaNYL (PF) 50 MCG/1 ML VIAL IVP ONE (09:36)
[2024-11-03] MEDS: MIDAZOLAM 2 MG/2 ML VIAL IVP ONE (09:36)
[2024-11-03] MEDS: LIDOCAINE 1% INJ 10MG/ML (20 ML MDV) SQ ONE (09:39)
[2024-11-03] MEDS: IOPAMIDOL-370 100ML BTL INJ ONE (10:01)
--- NOTE | 2024-11-03 10:21 | P.OP ---
Date of Procedure: 11/03/24 Description of Procedure: Preoperative diagnosis: Malfunctioning AV fistula Postoperative diagnosis: Same Procedure: [Ultrasound-guided right upper extremity cephalic vein access Fistulogram Percutaneous transluminal balloon angioplasty with 6 x 60 and 5 x 40 balloon inflow anastomosis and cephalic vein Moderate consultation with personal monitoring certified RN administration x 22 minutes] Surgeon: Ashly Garcia D.O. EBL: [Less than 10 cc see records] IV fluids: [] See records Urine output: [Not measured] Drains: [None] Complications: [None immediately apparent] Condition: [Stable to recovery] Operative indication and findings: [Patient is a 59-year-old male with a radiocephalic fistula in his right upper extremity. He has been utilizing it well without any significant issues. On recent ultrasound imaging there was evidence of diminished flow through the mid and distal portion of the fistula therefore he is here today for fistulogram. Risks and benefits are discussed. He seemed understood and is willing to proceed.] Procedure in detail: [Patient was taken to the special suite placed in supine position. The right upper extremities prepped and draped in usual sterile fashion. A preprocedural timeout performed, all parties were in agreement. Using the ultrasound, the cephalic vein was identified at the proximal forearm. In retrograde fashion, the vein was accessed with ultrasound guidance using Seldinger technique a 6 Bengali sheath was placed. A venogram was performed. Ca theters wires were used to access the radial artery. A repeat fistulogram was performed showing evidence of inflow stenosis for approximately 4 to 5 cm of the proximal inflow including the anastomosis itself. Decision was made to go forward with a balloon angioplasty using a 6 x 60 and 5 x 40 balloon at the anastomosis and cephalic vein. Repeat venogram was performed showing significant improvement with adequate thrill. Catheters wires were then removed. A [id number] suture was placed at the access site.] Plan - Discharge Summary Discharge Rx Participant: No New Discharge Prescriptions: No Action Pantoprazole [Protonix] 40 mg PO BID Tamsulosin [Flomax] 0.4 mg PO BID Citalopram Hydrobromide [CeleXA] 60 mg PO DAILY allopurinoL [Zyloprim] 100 mg PO DAILY Atorvastatin [Lipitor] 80 mg PO HS Furosemide [Lasix] 80 mg PO DAILY Nitroglycerin Sl Tabs [Nitrostat] 0.4 mg SL Q5M PRN PRN Reason: Chest Pain Calcium Carbonate [Tums] 500 mg PO TID Loratadine [Claritin] 10 mg PO DAILY #30 tab Isosorbide Mononitrate ER [Imdur] 30 mg PO DAILY #90 tab Insulin Glargine,Hum.rec.anlog [Lantus Solostar Pen] 17 units SQ HS Insulin Lispro [humaLOG Kwikpen] 9 unit SQ ACHS prednisoLONE ACETATE 1% OPHTH [Pred Forte 1%] 1 drop LEFT EYE DIRECTED cycloSPORINE 0.05% OPHTH SOLN [Restasis] 1 applicator BOTH EYES BID Folic Acid/Vit B Complex and C [Nephro-Cirilo Tablet] 0.8 mg PO DAILY Metoprolol Succinate (ER) [Toprol XL] 50 mg PO DAILY Losartan [Cozaar] 25 mg PO DAILY Ranolazine [Ranexa] 500 mg PO Q12HR #60 tab hydrALAZINE HCL [Apresoline] 50 mg PO TID Clopidogrel [Plavix] 75 mg PO DAILY Aspirin 81 mg PO DAILY Oxymetazoline 0.05% Nasl [place] [Afrin 0.05% Nasal [place]] 2 spray NASAL BID PRN #1 dispenser PRN Reason: Congestion Discharge Medication List Pantoprazole [Protonix] 40 mg PO BID 11/05/17 [History] Tamsulosin [Flomax] 0.4 mg PO BID 11/05/17 [History] Citalopram Hydrobromide [CeleXA] 60 mg PO DAILY 12/12/18 [History] allopurinoL [Zyloprim] 100 mg PO DAILY 04/05/19 [History] Atorvastatin [Lipitor] 80 mg PO HS 12/30/19 [History] Folic Acid/Vit B Complex and C [Nephro-Cirilo Tablet] 0.8 mg PO DAILY 05/05/23 [History] Losartan [Cozaar] 25 mg PO DAILY 09/19/23 [History] Metoprolol Succinate (ER) [Toprol XL] 50 mg PO DAILY 09/19/23 [History] Ranolazine [Ranexa] 500 mg PO Q12HR #60 tab 09/21/23 [Rx] Furosemide [Lasix] 80 mg PO DAILY 10/16/23 [History] Nitroglycerin Sl Tabs [Nitrostat] 0.4 mg SL Q5M PRN 10/16/23 [History] hydrALAZINE HCL [Apresoline] 50 mg PO TID 04/12/24 [History] Calcium Carbonate [Tums] 500 mg PO TID 06/16/24 [History] Clopidogrel [Plavix] 75 mg PO DAILY 06/16/24 [History] Aspirin 81 mg PO DAILY 06/20/24 [History] Loratadine [Claritin] 10 mg PO DAILY #30 tab 06/24/24 [Rx] Oxymetazoline 0.05% Nasl [place] [Afrin 0.05% Nasal [place]] 2 spray NASAL BID PRN #1 dispenser 06/24/24 [Rx] Isosorbide Mononitrate ER [Imdur] 30 mg PO DAILY #90 tab 07/01/24 [Rx] Insulin Glargine,Hum.rec.anlog [Lantus Solostar Pen] 17 units SQ HS 07/12/24 [History] Insulin Lispro [humaLOG Kwikpen] 9 unit SQ ACHS 07/12/24 [History] prednisoLONE ACETATE 1% OPHTH [Pred Forte 1%] 1 drop LEFT EYE DIRECTED 08/09/24 [History] cycloSPORINE 0.05% OPHTH SOLN [Restasis] 1 applicator BOTH EYES BID 10/31/24 [History]
[2024-11-03 18:53] VITALS: BP 119/59; PULSE 59
--- NOTE | 2024-11-06 09:07 | IR ---
EXAMINATION TYPE: IR fistula/abscess/sinus tract DATE OF EXAM: 11/04/2024 5:30 PM COMPARISON: Pre Operative Images if available both CT/MRI or plain film CLINICAL INDICATION: Male, 59 years old with history of Right forearm fistula, 4.5 Fl, 0.998 DAP; TECHNIQUE: IR fistula/abscess/sinus tract, multiple fluoroscopic images provided for procedure. DAP: 0.998 mGym2 Gycm2 uGym2 cGycm2 or equivalent. FINDINGS: IMPRESSION: 1. Report was generated for administrative purposes only. 2. Please see the operative/procedural note for further details. [facility], , 11/06/2024 9:05 AM
== END 2024-11-03 12:07 | disposition home or self-care (01) ==
LOC: CATHCVL 08:09
PROVIDERS: ATTEND Surgery
DX: I77.0 Arteriovenous fistula, acquired (principal); I25.10 Atherosclerotic heart disease of native coronary artery without angina pectoris; N18.6 End stage renal disease; E11.9 Type 2 diabetes mellitus without complications; E78.5 Hyperlipidemia, unspecified; Z86.73 Personal history of transient ischemic attack (TIA), and cerebral infarction without residual deficits; Z79.02 Long term (current) use of antithrombotics/antiplatelets; Z79.82 Long term (current) use of aspirin; Z79.899 Other long term (current) drug therapy
CPT/HCPCS: 76937; 36902; C1894; C1769 ×3; C1725 ×2; J2250; J2003; Q9967; J3010

== ENCOUNTER 2024-11-10 18:46 | Emergency (ER) | payer MEDICARE, OTHER ==
[2024-11-10 18:51] VITALS: TEMP 98
--- NOTE | 2024-11-10 19:12 | ED ---
Male Urogenital HPI - General Chief complaint: Urogenital Stated complaint: Urogenital Time Seen by Provider: 11/10/24 18:56 Source: patient, RN notes reviewed Mode of arrival: ambulatory Limitations: no limitations - History of Present Illness Initial comments: 59-year-old male presented to the emergency department for concerns of urinary retention. Patient states that he had outpatient appointment with Dr. Harris yesterday where Garcia catheter was removed. Patient states that he has been unable to urinate over the past 16 hours and has a urinary urgency. Endorses mild suprapubic tenderness. Denies nausea, vomiting. Denies current antibiotic use. - Related Data Home Medications Medication Instructions Recorded Confirmed Pantoprazole [Protonix] 40 mg PO BID 11/05/17 10/31/24 Tamsulosin [Flomax] 0.4 mg PO BID 11/05/17 10/31/24 Citalopram Hydrobromide [CeleXA] 60 mg PO DAILY 12/12/18 10/31/24 allopurinoL [Zyloprim] 100 mg PO DAILY 04/05/19 10/31/24 Atorvastatin [Lipitor] 80 mg PO HS 12/30/19 10/31/24 Folic Acid/Vit B Complex and C 0.8 mg PO DAILY 05/05/23 10/31/24 [Nephro-Cirilo Tablet] Losartan [Cozaar] 25 mg PO DAILY 09/19/23 10/31/24 Metoprolol Succinate (ER) [Toprol 50 mg PO DAILY 09/19/23 10/31/24 XL] Furosemide [Lasix] 80 mg PO DAILY 10/16/23 10/31/24 Nitroglycerin Sl Tabs [Nitrostat] 0.4 mg SL Q5M PRN 10/16/23 11/03/24 hydrALAZINE HCL [Apresoline] 50 mg PO TID 04/12/24 10/31/24 Calcium Carbonate [Tums] 500 mg PO TID 06/16/24 10/31/24 Clopidogrel [Plavix] 75 mg PO DAILY 06/16/24 11/03/24 Aspirin 81 mg PO DAILY 06/20/24 10/31/24 Insulin Glargine,Hum.rec.anlog 17 units SQ HS 07/12/24 10/31/24 [Lantus Solostar Pen] Insulin Lispro [humaLOG Kwikpen] 9 unit SQ ACHS 07/12/24 10/31/24 prednisoLONE ACETATE 1% OPHTH 1 drop LEFT EYE DIRECTED 08/09/24 10/31/24 [Pred Forte 1%] cycloSPORINE 0.05% OPHTH SOLN 1 applicator BOTH EYES BID 10/31/24 10/31/24 [Restasis] Previous Rx's Medication Instructions Recorded Ranolazine [Ranexa] 500 mg PO Q12HR #60 tab 09/21/23 Loratadine [Claritin] 10 mg PO DAILY #30 tab 06/24/24 Oxymetazoline 0.05% Nasl [place] 2 spray NASAL BID PRN #1 dispenser 06/24/24 [Afrin 0.05% Nasal [place]] Isosorbide Mononitrate ER [Imdur] 30 mg PO DAILY #90 tab 07/01/24 Ciprofloxacin HCl [Cipro] 500 mg PO Q12HR #27 tablet 11/10/24 Allergies Allergy/AdvReac Type Severity Reaction Status Date / Time hydromorphone AdvReac Confusion Verified 11/10/24 18:51 Iodinated Contrast Media AdvReac Nausea & Verified 11/10/24 18:51 [Iodinated Contrast- Oral Vomiting and IV Dye] sucralfate AdvReac Nausea & Verified 11/10/24 18:51 Vomiting Review of Systems ROS Statement: Those systems with pertinent positive or pertinent negative responses have been documented in the HPI. ROS Other: All systems not noted in ROS Statement are negative. Past Medical History Past Medical History: Coronary Artery Disease (CAD), Chest Pain / Angina, CVA/TIA, Diabetes Mellitus, Eye Disorder, GERD/Reflux, Hearing Disorder / Deafness, Hyperlipidemia, Hypertension, Myocardial Infarction (ND), Prostate Disorder, Renal Disease, Rheumatoid Arthritis (RA) Additional Past Medical History / Comment(s): [place] X2 in 2014 and 02/2023., 02 3L/NC., Hx stroke Apr 2017. , hx tia's ., left side weakness., Migranes., Diabetic neuropathy arms and legs, tremors off and on, circulation problems, uses quad cane and wheelchair., Kidney disease with dialysis [facility]. Hx Pancreatitis., Legally blind, some trouble hearing. Enlarged prostate, trouble urinating. , hx of uti's., anemia., constipation, arm surgery/fistula Last Myocardial Infarction Date:: 02/2023 History of Any Multi-Drug Resistant Organisms: CRE, Other MDRO Date of last positivie culture/infection: 08/14/24 MDRO Source:: urine Past Surgical History: Cholecystectomy, Heart Catheterization, Heart Catheterization With Stent, Heart Catheterization With Stent, Hernia Repair, Prostate Surgery Additional Past Surgical History / Comment(s): Dialysis Port Placed - 03/14/23, HIATAL HERNIA REPAIR - 01/23/21., states hx 5 heart caths with 5 stents., fistula on right arm, bilateral cataracts removed Past Anesthesia/Blood Transfusion Reactions: No Reported Reaction Additional Past Anesthesia/Blood Transfusion Reaction / Comment(s): . Date of Last Stent Placement:: 05/07/23 Past Psychological History: Anxiety, Depression Smoking Status: Never smoker Past Alcohol Use History: None Reported Past Drug Use History: None Reported - Past Family History Mother Family Medical History: CVA/TIA, Diabetes Mellitus, Hypertension Additional Family Medical History / Comment(s): Parkinson's. Father Family Medical History: Myocardial Infarction (ND) Additional Family Medical History / Comment(s): Father of a ND in his 50s. General Exam Limitations: no limitations General appearance: alert, in no apparent distress Neck exam: Present: normal inspection. Absent: tenderness, meningismus, lymphadenopathy Respiratory exam: Present: normal lung sounds bilaterally. Absent: respiratory distress, wheezes, rales, rhonchi, stridor Cardiovascular Exam: Present: regular rate, normal rhythm, normal heart sounds. Absent: systolic murmur, diastolic murmur, rubs, gallop, clicks GI/Abdominal exam: Present: soft, tenderness (suprapubic), normal bowel sounds. Absent: distended, guarding, rebound, rigid Extremities exam: Present: normal inspection, full ROM, normal capillary refill. Absent: tenderness, pedal edema, joint swelling, calf tenderness Back exam: Present: normal inspection. Absent: CVA tenderness (R), CVA tenderness (L) Skin exam: Present: warm, dry, intact, normal color. Absent: rash Course Vital Signs 11/10/24 11/10/24 18:47 20:29 Temperature 98.0 F Pulse Rate 73 66 Respiratory 17 18 Rate Blood Pressure 136/67 134/66 O2 Sat by Pulse 99 99 Oximetry Medical Decision Making - Medical Decision Making Was pt. sent in by a medical professional or institution (RADHA Moya, LINE ERECTOR, urgent care, hospital, or skilled nursing...) When possible be specific @ -No Did you speak to anyone other than the patient for history (EMS, parent, family, police, friend...)? What history was obtained from this source @ -No Did you review nursing and triage notes (agree or disagree)? Why? @ -I reviewed and agree with nursing and triage notes Were old charts reviewed (outside hosp., previous admission, EMS record, old EKG, old radiological studies, urgent care reports/EKG's, skilled nursing records)? Report findings @ -No old charts were reviewed Differential Diagnosis (chest pain, altered mental status, abdominal pain women, abdominal pain men, vaginal bleeding, weakness, fever, dyspnea, syncope, headache, dizziness, GI bleed, back pain, seizure, CVA, palpatations, mental health, musculoskeletal)? @ -Urinary retention, urinary tract infection, nephrolithiasis, this is not all- inclusive EKG interpreted by me (3pts min.). @ -None X-rays interpreted by me (1pt min.). @ -None done CT interpreted by me (1pt min.). @ -None done U/S interpreted by me (1pt. min.). @ -None done What testing was considered but not performed or refused? (CT, X-rays, U/S, labs)? Why? @ -None What meds were considered but not given or refused? Why? @ -None Did you discuss the management of the patient with other professionals (professionals i.e. RADHA Moya, LINE ERECTOR, lab, RT, psych nurse, drug abuse social worker, management consulting, teacher, chief executive officer, case packer)? Give summary @ -No Was smoking cessation discussed for >3mins.? @ -No Was critical care preformed (if so, how long)? @ -No Were there social determinants of health that impacted care today? How? (Homelessness, low income, unemployed, alcoholism, drug addiction, transportation, low edu. Level, literacy, decrease access to med. care, fci, rehab)? @ -No Was there de-escalation of care discussed even if they declined (Discuss DNR or withdrawal of care, Hospice)? DNR status @ -No What co-morbidities impacted this encounter? (DM, HTN, Smoking, COPD, CAD, Cancer, CVA, ARF, Chemo, Hep., AIDS, mental health diagnosis, sleep apnea, morbid obesity)? @ -None Was patient admitted / discharged? Hospital course, mention meds given and route, prescriptions, significant lab abnormalities, going to OR and other pertinent info. @ -Discharge. 59-year-old male presented emergency department with urinary ret ention. Bladder scan completed reveals a volume of 408 mL. Patient has a mildly distended bladder on examination that is tender to palpation. Garcia catheter is placed with immediate return of urine by nursing staff. Patient's urine is concerning for infection with large leukocyte esterase and greater than 182 white cells. Patient is provided with initial dose of Cipro and course of antibiotics sent to the pharmacy. Urine sent for culture. Patient is discharged with Garcia catheter in place and instructed to follow-up with urologist. Case discussed with Dr. Cox Undiagnosed new problem with uncertain prognosis? @ -No Drug Therapy requiring intensive monitoring for toxicity (Heparin, Nitro, Insulin, Cardizem)? @ -No Were any procedures done? @ -No Diagnosis/symptom? @ -Urinary retention, urinary tract infection Acute, or Chronic, or Acute on Chronic? @ -Acute Uncomplicated (without systemic symptoms) or Complicated (systemic symptoms)? @ -Uncomplicated Side effects of treatment? @ -No Exacerbation, Progression, or Severe Exacerbation? @ -No Poses a threat to life or bodily function? How? (Chest pain, USA, ND, pneumonia, PE, COPD, DKA, ARF, appy, cholecystitis, CVA, Diverticulitis, Homicidal, Suicidal, threat to staff... and all critical care pts) @ -No - Lab Data Lab Results 11/10/24 Range/Units 19:32 Urine Color Yellow Urine Appearance Cloudy (Clear) Urine pH 8.0 (5.0-8.0) Ur Specific [place] 1.015 (1.001-1.035) Urine Protein 1+ H (Negative) Urine Glucose (UA) Trace H (Negative) Urine Ketones Negative (Negative) Urine Blood Negative (Negative) Urine Nitrite Negative (Negative) Urine Bilirubin Negative (Negative) Urine Urobilinogen <2.0 (<2.0) mg/dL Ur Leukocyte Esterase Large H (Negative) Urine RBC 3 (0-5) /hpf Urine WBC >182 H (0-5) /hpf Ur Squamous Epith Cells <1 (0-4) /hpf Urine Mucus Rare H (None) /hpf Disposition Clinical Impression: Retention of urine, UTI (urinary tract infection) Disposition: HOME SELF-CARE Condition: Stable Instructions (If sedation given, give patient instructions): Urinary Tract Infection in Men (ED) Additional Instructions: Please return to the Emergency Department if symptoms worsen or any other concerns. Prescriptions: Ciprofloxacin HCl [Cipro] 500 mg PO Q12HR #27 tablet Is patient prescribed a controlled substance at d/c from ED?: No Referrals: Diana Broderick MD [Primary Care Provider] - 1-2 days Time of Disposition: 19:58
[2024-11-10 19:53] LABS: Appearance,Urine Cloudy (Clear); Bilirubin,Urine Negative (Negative); Blood,Urine Negative (Negative); Color,Urine Yellow; Glucose,Urine (UA) Trace (Negative); Ketones,Urine Negative (Negative); Leukocyte Esterase,Urine Large (Negative); Mucus,Urine Rare /hpf; Nitrite,Urine Negative (Negative); Protein,Urine 1+ (Negative); RBC,Urine 3 /hpf (0-5); Specific Gravity,Urine 1.015 (1.001-1.035); Squamous Epithelial Cell,Urine <1 /hpf (0-4); Urobilinogen,Urine <2.0 mg/dL (<2.0); WBC,Urine >182 /hpf (0-5)
[2024-11-10] MEDS: LEVOFLOXACIN 500 MG TAB PO STA (20:28)
[2024-11-10 20:30] VITALS: BP 134/66; PULSE 66; RESP 18
== END 2024-11-10 20:29 | disposition home or self-care (01) ==
LOC: EC 18:46
DX: N39.0 Urinary tract infection, site not specified (principal); R33.9 Retention of urine, unspecified; Z88.5 Allergy status to narcotic agent; Z91.041 Radiographic dye allergy status; Z88.8 Allergy status to other drugs, medicaments and biological substances; Z86.73 Personal history of transient ischemic attack (TIA), and cerebral infarction without residual deficits
CPT/HCPCS: 51702; 51798; 81001; 87086; 99284

== ENCOUNTER 2024-12-17 14:22 | Emergency (ER) | payer MEDICARE, OTHER ==
[2024-12-17 15:27] LABS: Basophils # (A) 0.04 10*3/uL (0.00-0.10); Basophils % (A) 0.7 %; Eosinophils # (A) 0.13 10*3/uL (0.04-0.35); Eosinophils % (A) 2.1 %; HCT 26.2 % (39.6-50.0); HGB 8.6 g/dL (13.0-17.0); Lymphocytes # (A) 1.15 10*3/uL (0.90-5.00); Lymphocytes % (A) 18.8 %; MCH 33.7 pg (27.0-32.0); MCHC 32.8 g/dL (32.0-37.0); MCV 102.7 fL (80.0-97.0); Mean Platelet Volume 9.4 fL (9.5-12.2); Monocytes # (A) 0.64 10*3/uL (0.20-1.00); Monocytes % (A) 10.5 %; Neutrophils # (A) 4.12 10*3/uL (1.80-7.70); Neutrophils % (A) 67.2 %; Platelet Count 106 10*3/uL (140-440); RBC 2.55 10*6/uL (4.40-5.60); RDW 19.7 % (11.5-14.5); WBC 6.12 10*3/uL (4.50-10.00)
[2024-12-17 15:41] LABS: ALT 23 U/L (4-49); African American GFR (CKD) 20 (>60 ml/min/1.73 sqM); Albumin 3.8 g/dL (3.5-5.0); Anion Gap 8 mmol/L; Blood Urea Nitrogen 27 mg/dL (9-20); Calcium 8.1 mg/dL (8.4-10.2); Carbon Dioxide 33 mmol/L (22-30); Chloride 93 mmol/L (98-107); Glucose 88 mg/dL (74-99); Non-African American GFR(CKD) 18 (>60 ml/min/1.73 sqM); Sodium 134 mmol/L (137-145); Total Bilirubin 0.7 mg/dL (0.2-1.3); Total Protein 6.3 g/dL (6.3-8.2)
[2024-12-17 15:42] LABS: AST 37 U/L (17-59); Alkaline Phosphatase 69 U/L (38-126); Magnesium 1.9 mg/dL (1.6-2.3); Potassium 3.6 mmol/L (3.5-5.1)
[2024-12-17 15:48] LABS: NT-Pro-B-Type Natriuretic Pept 3110 pg/mL
[2024-12-17 15:54] LABS: Partial Thromboplastin Time 25.7 sec (22.0-30.0); Prothrombin Time 10.9 sec (10.0-12.5)
--- NOTE | 2024-12-17 16:07 | XR ---
EXAMINATION TYPE: XR chest 2V DATE OF EXAM: 12/17/2024 3:58 PM COMPARISON: Chest radiographs from 10/01/2024 CLINICAL INDICATION: Male, 59 years old with history of Chest Pain; LOCATED [facility]IN [facility] TECHNIQUE: XR chest 2V Frontal and lateral views of the chest. FINDINGS: Lungs/Pleura: There is no evidence of pleural effusion, focal consolidation, or pneumothorax. Pulmonary vascularity: Unremarkable. Heart/mediastinum: Cardiomediastinal silhouette is unremarkable. Musculoskeletal: No acute osseous pathology. IMPRESSION: No acute cardiopulmonary disease/process. [facility], , 12/17/2024 4:04 PM
[2024-12-17] MEDS: ONDANSETRON 4 MG/2 ML VIAL IVP STA (18:16)
--- NOTE | 2024-12-17 18:16 | ED ---
Chest Pain HPI - General Chief Complaint: Chest Pain Stated Complaint: Chest Pain Time Seen by Provider: 12/17/24 14:56 Source: patient, EMS Mode of arrival: EMS Limitations: no limitations - History of Present Illness Initial Comments: 59-year-old male with past medical history of end-stage renal disease on hemodialysis, coronary artery disease who presents to the emergency department reporting chest pain. Patient is well-known to the emergency department for similar complaints. States that he was getting dialysis today when he was [facility] through. He started having chest pain. They did disconnect the patient and sent him to the hospital. He describes it as an elephant sitting on his chest. EMS did provide him with 2 nitro and 324 of aspirin. States that his pain is improved at this time. He denies fevers, chills or cough. No ripping or tearing sensation to his back. No other alleviating, precipitating or modifying factors - Related Data Home Medications Medication Instructions Recorded Confirmed Pantoprazole [Protonix] 40 mg PO BID 11/05/17 10/31/24 Tamsulosin [Flomax] 0.4 mg PO BID 11/05/17 10/31/24 Citalopram Hydrobromide [CeleXA] 60 mg PO DAILY 12/12/18 10/31/24 allopurinoL [Zyloprim] 100 mg PO DAILY 04/05/19 10/31/24 Atorvastatin [Lipitor] 80 mg PO HS 12/30/19 10/31/24 Folic Acid/Vit B Complex and C 0.8 mg PO DAILY 05/05/23 10/31/24 [Nephro-Cirilo Tablet] Losartan [Cozaar] 25 mg PO DAILY 09/19/23 10/31/24 Metoprolol Succinate (ER) [Toprol 50 mg PO DAILY 09/19/23 10/31/24 XL] Furosemide [Lasix] 80 mg PO DAILY 10/16/23 10/31/24 Nitroglycerin Sl Tabs [Nitrostat] 0.4 mg SL Q5M PRN 10/16/23 11/03/24 hydrALAZINE HCL [Apresoline] 50 mg PO TID 04/12/24 10/31/24 Calcium Carbonate [Tums] 500 mg PO TID 06/16/24 10/31/24 Clopidogrel [Plavix] 75 mg PO DAILY 06/16/24 11/03/24 Aspirin 81 mg PO DAILY 06/20/24 10/31/24 Insulin Glargine,Hum.rec.anlog 17 units SQ HS 07/12/24 10/31/24 [Lantus Solostar Pen] Insulin Lispro [humaLOG Kwikpen] 9 unit SQ ACHS 07/12/24 10/31/24 prednisoLONE ACETATE 1% OPHTH 1 drop LEFT EYE DIRECTED 08/09/24 10/31/24 [Pred Forte 1%] cycloSPORINE 0.05% OPHTH SOLN 1 applicator BOTH EYES BID 10/31/24 10/31/24 [Restasis] Previous Rx's Medication Instructions Recorded Ranolazine [Ranexa] 500 mg PO Q12HR #60 tab 09/21/23 Loratadine [Claritin] 10 mg PO DAILY #30 tab 06/24/24 Oxymetazoline 0.05% Nasl [place] 2 spray NASAL BID PRN #1 dispenser 06/24/24 [Afrin 0.05% Nasal [place]] Isosorbide Mononitrate ER [Imdur] 30 mg PO DAILY #90 tab 07/01/24 Ciprofloxacin HCl [Cipro] 500 mg PO Q12HR #27 tablet 11/10/24 Allergies Allergy/AdvReac Type Severity Reaction Status Date / Time hydromorphone AdvReac Confusion Verified 12/17/24 14:35 Iodinated Contrast Media AdvReac Nausea & Verified 12/17/24 14:35 [Iodinated Contrast- Oral Vomiting and IV Dye] sucralfate AdvReac Nausea & Verified 12/17/24 14:35 Vomiting Review of Systems ROS Statement: Those systems with pertinent positive or pertinent negative responses have been documented in the HPI. ROS Other: All systems not noted in ROS Statement are negative. Past Medical History Past Medical History: Coronary Artery Disease (CAD), Chest Pain / Angina, CVA/TIA, Diabetes Mellitus, Eye Disorder, GERD/Reflux, Hearing Disorder / Deafness, Hyperlipidemia, Hypertension, Myocardial Infarction (RI), Prostate Disorder, Renal Disease, Rheumatoid Arthritis (RA) Additional Past Medical History / Comment(s): [place] X2 in 2014 and 02/2023., 02 3L/NC., Hx stroke Apr 2017. , hx tia's ., left side weakness., Migranes., Diabetic neuropathy arms and legs, tremors off and on, circulation problems, uses quad cane and wheelchair., Kidney disease with dialysis [facility]. Hx Pancreatitis., Legally blind, some trouble hearing. Enlarged prostate, trouble urinating. , hx of uti's., anemia., constipation, arm surgery/fistula Last Myocardial Infarction Date:: 02/2023 History of Any Multi-Drug Resistant Organisms: CRE, Other MDRO Date of last positivie culture/infection: 08/14/24 MDRO Source:: urine Past Surgical History: Cholecystectomy, Heart Catheterization, Heart Catheterization With Stent, Heart Catheterization With Stent, Hernia Repair, Prostate Surgery Additional Past Surgical History / Comment(s): Dialysis Port Placed - 03/14/23, HIATAL HERNIA REPAIR - 01/23/21., states hx 5 heart caths with 5 stents., fistula on right arm, bilateral cataracts removed Past Anesthesia/Blood Transfusion Reactions: No Reported Reaction Additional Past Anesthesia/Blood Transfusion Reaction / Comment(s): . Date of Last Stent Placement:: 05/07/23 Past Psychological History: Anxiety, Depression Smoking Status: Never smoker Past Alcohol Use History: None Reported Past Drug Use History: None Reported - Past Family History Mother Family Medical History: CVA/TIA, Diabetes Mellitus, Hypertension Additional Family Medical History / Comment(s): Parkinson's. Father Family Medical History: Myocardial Infarction (RI) Additional Family Medical History / Comment(s): Father of a RI in his 50s. General Exam Limitations: no limitations General appearance: alert, in no apparent distress Head exam: Present: atraumatic, normocephalic, normal inspection Eye exam: Present: normal appearance, PERRL, EOMI. Absent: scleral icterus, conjunctival injection, periorbital swelling ENT exam: Present: normal exam, mucous membranes moist Neck exam: Present: normal inspection. Absent: tenderness, meningismus, l ymphadenopathy Respiratory exam: Present: normal lung sounds bilaterally. Absent: respiratory distress, wheezes, rales, rhonchi, stridor Cardiovascular Exam: Present: regular rate, normal rhythm, normal heart sounds. Absent: systolic murmur, diastolic murmur, rubs, gallop, clicks GI/Abdominal exam: Present: soft, normal bowel sounds. Absent: distended, tenderness, guarding, rebound, rigid Extremities exam: Present: normal inspection, full ROM, normal capillary refill. Absent: tenderness, pedal edema, joint swelling, calf tenderness Back exam: Present: normal inspection Neurological exam: Present: alert, oriented X3, CN II-XII intact Psychiatric exam: Present: normal affect, normal mood Skin exam: Present: warm, dry, intact, normal color. Absent: rash Course Vital Signs 12/17/24 12/17/24 12/17/24 14:31 15:37 16:19 Temperature 97.8 F Pulse Rate 64 58 L 59 L Respiratory 18 18 18 Rate Blood Pressure 102/57 114/90 O2 Sat by Pulse 98 98 99 Oximetry 12/17/24 12/17/24 18:15 19:28 Temperature 97.8 F 98.5 F Pulse Rate 56 L 57 L Respiratory 18 16 Rate Blood Pressure 116/57 114/60 O2 Sat by Pulse 99 99 Oximetry Chest Pain MDM - MDM Was pt. sent in by a medical professional or institution (, PA, HEEL NAIL RASPER, urgent care, hospital, or alf...) When possible be specific @ -Patient sent in from dialysis clinic Did you speak to anyone other than the patient for history (EMS, parent, family, police, friend...)? What history was obtained from this source @ -Spoke with EMS for history Did you review nursing and triage notes (agree or disagree)? Why? @ -I reviewed and agree with nursing and triage notes Were old charts reviewed (outside hosp., previous admission, EMS record, old EKG, old radiological studies, urgent care reports/EKG's, alf records)? Report findings @ -No old charts were reviewed Differential Diagnosis (chest pain, altered mental status, abdominal pain women, abdominal pain men, vaginal bleeding, weakness, fever, dyspnea, syncope, headache, dizziness, GI bleed, back pain, seizure, CVA, palpatations, mental health, musculoskeletal)? @ -Differential Chest Pain: Stable Angina, Unstable Angina, STEMI, NSTEMI Aortic Dissection, Pneumothorax, Musculoskeletal, Esophageal Spasm GERD, Cholecystitis, Pancreatitis, Zoster, this is not meant to be an all-inclusive list. EKG interpreted by me (3pts min.). @ -Yes and demonstrates sinus bradycardia with a rate of 58. IA interval 176. QRS 105. QTc of 436. No acute ST segment elevations or depressions X-rays interpreted by me (1pt min.). @ -Yes which demonstrates no acute process CT interpreted by me (1pt min.). @ -None done U/S interpreted by me (1pt. min.). @ -None done What testing was considered but not performed or refused? (CT, X-rays, U/S, labs)? Why? @ -None What meds were considered but not given or refused? Why? @ -None Did you discuss the management of the patient with other professionals (professionals i.e. , PA, HEEL NAIL RASPER, lab, RT, psych nurse, social work administrator, caul fat puller, teacher, air antisubmarine officer, insurance case manager)? Give summary @ -No Was smoking cessation discussed for >3mins.? @ -No Was critical care preformed (if so, how long)? @ -No Were there social determinants of health that impacted care today? How? (Homelessness, low income, unemployed, alcoholism, drug addiction, transportation, low edu. Level, literacy, decrease access to med. care, halfway, rehab)? @ -No Was there de-escalation of care discussed even if they declined (Discuss DNR or withdrawal of care, Hospice)? DNR status @ -No What co-morbidities impacted this encounter? (DM, HTN, Smoking, COPD, CAD, Cancer, CVA, ARF, Chemo, Hep., AIDS, mental health diagnosis, sleep apnea, morbid obesity)? @ -Coronary disease, end-stage renal disease on hemodialysis Was patient admitted / discharged? Hospital course, mention meds given and route, prescriptions, significant lab abnormalities, going to OR and other pertinent info. @ -Upon arrival patient seen and evaluated in bed 27. Thorough history and physical exam was performed. IV access was established. Laboratory studies are conducted. Chest x-ray was performed. Results are discussed with the patient. At this time he will be discharged home and instructed follow-up with his scientific investigator. Return for any new or worsening symptoms. Patient agreeable to plan was discharged in stable condition Undiagnosed new problem with uncertain prognosis? @ -No Drug Therapy requiring intensive monitoring for toxicity (Heparin, Nitro, Insulin, Cardizem)? @ -No Were any procedures done? @ -No Diagnosis/symptom? @ -Acute on chronic chest pain Acute, or Chronic, or Acute on Chronic? @ -Acute on chronic Uncomplicated (without systemic symptoms) or Complicated (systemic symptoms)? @ -Complicated Side effects of treatment? @ -No Exacerbation, Progression, or Severe Exacerbation? @ -No Poses a threat to life or bodily function? How? (Chest pain, [place], [place], pneumonia, PE, COPD, DKA, ARF, appy, cholecystitis, CVA, Diverticulitis, Homicidal, Suicidal, threat to staff... and all critical care pts) @ -No Disposition Clinical Impression: Chest pain Disposition: HOME SELF-CARE Condition: Stable Instructions (If sedation given, give patient instructions): Chest Pain (ED) Additional Instructions: Please follow-up with your scientific investigator in regards to your symptoms Is patient prescribed a controlled substance at d/c from ED?: No Referrals: Diana Broderick MD [Primary Care Provider] - 1-2 days Time of Disposition: 18:27
[2024-12-17 19:35] VITALS: BP 114/60; PULSE 57; RESP 16; TEMP 98.5
[2024-12-17] MEDS: MORPHINE SULFATE 2 MG/ML SYRINGE IVP ONE (19:35)
== END 2024-12-17 19:28 | disposition home or self-care (01) ==
LOC: EC 14:22
DX: R07.9 Chest pain, unspecified (principal); I13.11 Hypertensive heart and chronic kidney disease without heart failure, with stage 5 chronic kidney disease, or end stage renal disease; N18.6 End stage renal disease; Z91.041 Radiographic dye allergy status; Z88.8 Allergy status to other drugs, medicaments and biological substances; Z99.2 Dependence on renal dialysis
CPT/HCPCS: 36415; 93005; 83880; 80053; 83735; 84484; 85025; 85610; 85730; 71046; 99285; 96374; J2405

== ENCOUNTER 2025-01-01 00:34 | Inpatient (IN) | payer MEDICARE, OTHER ==
--- NOTE | 2025-01-01 01:12 | ED ---
Male Urogenital HPI - General Chief complaint: Urogenital Stated complaint: painful urination Time Seen by Provider: 01/01/25 00:39 Source: patient, RN notes reviewed, old records reviewed Mode of arrival: ambulatory Limitations: no limitations - History of Present Illness Initial comments: This is a 59-year-old male to the ER for evaluation well-known to this ER coming in for indwelling Garcia recent diagnosis of UTI and persistent symptoms here in the ER with severe pain both abdominal pain as well as pain in his penis, groin region. Burning and feelings of increased sensation, no fevers MD Complaint: dysuria -: days(s) Location: penis, abdomen Radiation: none Severity: moderate Severity scale (1-10): 4 Quality: aching, burning Consistency: constant Improves with: none Worsens with: none indwelling catheter Reports: denies other symptoms - Related Data Home Medications Medication Instructions Recorded Confirmed Tamsulosin [Flomax] 0.4 mg PO BID 11/05/17 01/01/25 Citalopram Hydrobromide [CeleXA] 20 mg PO DAILY 12/12/18 01/01/25 allopurinoL [Zyloprim] 100 mg PO DAILY 04/05/19 01/01/25 Atorvastatin [Lipitor] 80 mg PO HS 12/30/19 01/01/25 Losartan [Cozaar] 25 mg PO DAILY 09/19/23 01/01/25 Metoprolol Succinate (ER) [Toprol 50 mg PO DAILY 09/19/23 01/01/25 XL] Furosemide [Lasix] 80 mg PO DAILY 10/16/23 01/01/25 Nitroglycerin Sl Tabs [Nitrostat] 0.4 mg SL Q5M PRN 10/16/23 01/01/25 hydrALAZINE HCL [Apresoline] 50 mg PO TID 04/12/24 01/01/25 Clopidogrel [Plavix] 75 mg PO DAILY 06/16/24 01/01/25 Insulin Glargine,Hum.rec.anlog 17 units SQ HS 07/12/24 01/01/25 [Lantus Solostar Pen] Insulin Lispro [humaLOG Kwikpen] 9 unit SQ AC-TID 07/12/24 01/01/25 cycloSPORINE 0.05% OPHTH SOLN 1 applicator BOTH EYES BID 10/31/24 01/01/25 [Restasis] Linaclotide [Linzess] 72 mcg PO DAILY 01/01/25 01/01/25 Previous Rx's Medication Instructions Recorded Ranolazine [Ranexa] 500 mg PO Q12HR #60 tab 09/21/23 Isosorbide Mononitrate ER [Imdur] 30 mg PO DAILY #90 tab 07/01/24 Cholestyramine Resin [Questran 4 gm PO BID@1000,1800 #60 packet 01/06/25 Packet] Fluticasone Nasal [place] [Flonase 1 spray EA NOSTRIL BID #0 ml 01/06/25 Nasal [place]] Loratadine [Claritin] 10 mg PO DAILY tab 01/06/25 Allergies Allergy/AdvReac Type Severity Reaction Status Date / Time hydromorphone AdvReac Confusion Verified 01/01/25 13:57 Iodinated Contrast Media AdvReac Nausea & Verified 01/01/25 13:57 [Iodinated Contrast- Oral Vomiting and IV Dye] sucralfate AdvReac Nausea & Verified 01/01/25 13:57 Vomiting Review of Systems ROS Statement: Those systems with pertinent positive or pertinent negative responses have been documented in the HPI. ROS Other: All systems not noted in ROS Statement are negative. Past Medical History Past Medical History: Coronary Artery Disease (CAD), Chest Pain / Angina, CVA/TIA, Diabetes Mellitus, Eye Disorder, GERD/Reflux, Hearing Disorder / Deafness, Hyperlipidemia, Hypertension, Myocardial Infarction (DE), Prostate Disorder, Renal Disease, Rheumatoid Arthritis (RA) Additional Past Medical History / Comment(s): DE X2 in 2014 and 02/2023., 02 3L/NC., Hx stroke Apr 2017. , hx tia's ., left side weakness., Migranes., Diabetic neuropathy arms and legs, tremors off and on, circulation problems, uses quad cane and wheelchair., Kidney disease with dialysis [facility]. Hx Pa ncreatitis., Legally blind, some trouble hearing. Enlarged prostate, trouble urinating. , hx of uti's., anemia., constipation, arm surgery/fistula Last Myocardial Infarction Date:: 02/2023 History of Any Multi-Drug Resistant Organisms: CRE, Other MDRO Date of last positivie culture/infection: 08/14/24 MDRO Source:: urine Past Surgical History: Cholecystectomy, Heart Catheterization, Heart Catheterization With Stent, Heart Catheterization With Stent, Hernia Repair, Prostate Surgery Additional Past Surgical History / Comment(s): Dialysis Port Placed - 03/14/23, HIATAL HERNIA REPAIR - 01/23/21., states hx 5 heart caths with 5 stents., fistula on right arm, bilateral cataracts removed Past Anesthesia/Blood Transfusion Reactions: No Reported Reaction Additional Past Anesthesia/Blood Transfusion Reaction / Comment(s): . Date of Last Stent Placement:: 05/07/23 Past Psychological History: Anxiety, Depression Smoking Status: Never smoker Past Alcohol Use History: None Reported Past Drug Use History: None Reported - Past Family History Mother Family Medical History: CVA/TIA, Diabetes Mellitus, Hypertension Additional Family Medical History / Comment(s): Parkinson's. Father Family Medical History: Myocardial Infarction (DE) Additional Family Medical History / Comment(s): Father of a DE in his 50s. General Exam Limitations: no limitations General appearance: alert, in no apparent distress Head exam: Present: atraumatic, normocephalic, normal inspection Eye exam: Present: normal appearance, PERRL, EOMI. Absent: scleral icterus, conjunctival injection, periorbital swelling ENT exam: Present: normal exam, mucous membranes moist Neck exam: Present: normal inspection. Absent: tenderness, meningismus, lymphadenopathy Respiratory exam: Present: normal lung sounds bilaterally. Absent: respiratory distress, wheezes, rales, rhonchi, stridor Cardiovascular Exam: Present: regular rate, normal rhythm, normal heart sounds. Absent: systolic murmur, diastolic murmur, rubs, gallop, clicks GI/Abdominal exam: Present: soft, normal bowel sounds. Absent: distended, tenderness, guarding, rebound, rigid Extremities exam: Present: normal inspection, full ROM, normal capillary refill. Absent: tenderness, pedal edema, joint swelling, calf tenderness Back exam: Present: normal inspection Neurological exam: Present: alert, oriented X3, CN II-XII intact Psychiatric exam: Present: normal affect, normal mood Skin exam: Present: warm, dry, intact, normal color. Absent: rash Course Vital Signs 01/01/25 01/01/25 00:37 03:29 Temperature 98.3 F 98.6 F Pulse Rate 62 65 Respiratory 18 18 Rate Blood Pressure 143/69 131/60 O2 Sat by Pulse 98 98 Oximetry - Reevaluation(s) Reevaluation #1: 01/01/25 02:17 Medical records reviewed Reevaluation #2: 01/01/25 03:00 Patient symptoms persistent here in the ER Reevaluation #3: 01/01/25 03:00 Patient informed of results questions answered Reevaluation #4: Was pt. sent in by a medical professional or institution (RADHA Moya, IRRIGATION TEACHER, urgent ca re, hospital, or correction...) When possible be specific @ -no Did you speak to anyone other than the patient for history (EMS, parent, family, police, friend...)? What history was obtained from this source @ -no Did you review nursing and triage notes (agree or disagree)? Why? @ -agree Are old charts reviewed (outside hosp., previous admission, EMS record, old EKG, old radiological studies, urgent care reports/EKG's, correction records)? Report findings @ -yes Differential Diagnosis (chest pain, altered mental status, abdominal pain women, abdominal pain men, vaginal bleeding, weakness, fever, dyspnea, syncope, headache, dizziness, GI bleed, back pain, seizure, CVA, palpatations, mental health, musculoskeletal)? @ -prior EKG interpreted by me (3pts min.). @ -yes X-rays interpreted by me (1pt min.). @ -no CT interpreted by me (1pt min.). @ -no U/S interpreted by me (1pt. min.). @ -no What testing was considered but not performed or refused? (CT, X-rays, U/S, labs)? Why? @ -none What meds were considered but not given or refused? Why? @ -none Did you discuss the management of the patient with other professionals (professionals i.e. RADHA Moya, IRRIGATION TEACHER, lab, RT, psych nurse, executive secretary social welfare, knitting machine fixer, teacher, mail officer, corrections caseworker)? Give summary @ -no Was smoking cessation discussed for >3mins.? @ -no Was critical care preformed (if so, how long)? @ -no Were there social determinants of health that impacted care today? How? (Homelessness, low income, unemployed, alcoholism, drug addiction, transportation, low edu. Level, literacy, decrease access to med. care, senior care, rehab)? @ -none Was there de-escalation of care discussed even if they declined (Discuss DNR or withdrawal of care, Hospice)? DNR status @ -no What co-morbidities impacted this encounter? (DM, HTN, Smoking, COPD, CAD, Cancer, CVA, ARF, Chemo, Hep., AIDS, mental health diagnosis, sleep apnea, morbid obesity)? @ -none Was patient admitted / discharged? Hospital course, mention meds given and route, prescriptions, significant lab abnormalities, going to OR and other pertinent info. @ - 59 male patient will be admitted for IV antibiotics UTI known indwelling Garcia catheter urinary retention, patient will admit for IV antibiotics Admitted Undiagnosed new problem with uncertain prognosis? @ -no Drug Therapy requiring intensive monitoring for toxicity (Heparin, Nitro, Insulin, Cardizem)? @ -no Were any procedures done? @ -no Diagnosis/symptom? @ -UTI indwelling Garcia failed outpatient treatment Acute, or Chronic, or Acute on Chronic? @ -Acute Uncomplicated (without systemic symptoms) or Complicated (systemic symptoms)? @ -Complicated Side effects of treatment? @ -no Exacerbation, Progression, or Severe Exacerbation? @ -exacerbation Poses a threat to life or bodily function? How? (Chest pain, [place], DE, pneumonia, PE, COPD, DKA, ARF, appy, cholecystitis, CVA, Diverticulitis, Homicidal, Suicidal, threat to staff... and all critical care pts) @ -yes multiple comorbid conditions and chronic disease Reevaluation #5: Differential Abdominal Pain Men: Appendicitis, cholecystitis, diverticulosis, ischemic bowel, pancreatitis, hepatitis, UTI, gastroenteritis, AAA, incarcerated hernia, bowel obstruction, constipation, inflammatory bowel, hepatitis, peptic ulcer disease, splenic infarction, perforated viscus, testicular torsion, this is not meant to be an all-inclusive list - Consultations Consultation #1: Spoke with Dr. Broderick who agrees to admit this patient Medical Decision Making - Medical Decision Making 59 male patient will be admitted for IV antibiotics UTI known indwelling Garcia catheter urinary retention, patient will admit for IV antibiotics - Lab Data Result diagrams: 01/07/25 15:12 01/07/25 15:12 Lab Results 01/01/25 01/01/25 01/01/25 Range/Units 01:52 01:52 01:52 WBC 6.16 (4.50-10.00) 10*3/uL RBC 2.86 L (4.40-5.60) 10*6/uL Hgb 9.7 L (13.0-17.0) g/dL Hct 30.2 L (39.6-50.0) % MCV 105.6 H (80.0-97.0) fL MCH 33.9 H (27.0-32.0) pg MCHC 32.1 (32.0-37.0) g/dL Plt Count 126 L (140-440) 10*3/uL MPV 8.9 L (9.5-12.2) fL Immature Gran % (Auto) 0.2 % Neutrophils % 64.7 % Lymphocytes % 19.5 % Monocytes % 11.9 % Eosinophils % 3.2 % Basophils % 0.5 % Immature Gran # 0.01 (0.00-0.04) 10*3/uL Neutrophils # 3.99 (1.80-7.70) 10*3/uL Lymphocytes # 1.20 (0.90-5.00) 10*3/uL Monocytes # 0.73 (0.20-1.00) 10*3/uL Eosinophils # 0.20 (0.04-0.35) 10*3/uL Basophils # 0.03 (0.00-0.10) 10*3/uL Sodium 137 (137-145) mmol/L Potassium 4.0 (3.5-5.1) mmol/L Chloride 93 L (98-107) mmol/L Carbon Dioxide 33 H (22-30) mmol/L Anion Gap 11 mmol/L BUN 27 H (9-20) mg/dL Creatinine 4.05 H (0.66-1.25) mg/dL Est GFR (CKD-EPI)AfAm 18 (>60 ml/min/1.73 sqM) Est GFR (CKD-EPI)NonAf 15 (>60 ml/min/1.73 sqM) Glucose 138 H (74-99) mg/dL Plasma Lactic Acid Preet 1.4 (0.7-2.0) mmol/L Calcium 8.3 L (8.4-10.2) mg/dL Phosphorus 3.9 (2.5-4.5) mg/dL Magnesium 1.9 (1.6-2.3) mg/dL Total Bilirubin 0.6 (0.2-1.3) mg/dL AST 32 (17-59) U/L ALT 22 (4-49) U/L Alkaline Phosphatase 94 (38-126) U/L Troponin I (0.000-0.034) ng/mL Total Protein 6.7 (6.3-8.2) g/dL Albumin 4.1 (3.5-5.0) g/dL Urine Color Urine Appearance (Clear) Urine pH (5.0-8.0) Ur Specific [place] (1.001-1.035) Urine Protein (Negative) Urine Glucose (UA) (Negative) Urine Ketones (Negative) Urine Blood (Negative) Urine Nitrite (Negative) Urine Bilirubin (Negative) Urine Urobilinogen (<2.0) mg/dL Ur Leukocyte Esterase (Negative) Urine RBC (0-5) /hpf Urine WBC (0-5) /hpf Urine WBC Clumps (None) /hpf Amorphous Sediment (None) /hpf Urine Bacteria (None) /hpf Hyaline Casts (0-2) /lpf Urine Mucus (None) /hpf 01/01/25 01/01/25 Range/Units 01:52 02:33 WBC (4.50-10.00) 10*3/uL RBC (4.40-5.60) 10*6/uL Hgb (13.0-17.0) g/dL Hct (39.6-50.0) % MCV (80.0-97.0) fL MCH (27.0-32.0) pg MCHC (32.0-37.0) g/dL Plt Count (140-440) 10*3/uL MPV (9.5-12.2) fL Immature Gran % (Auto) % Neutrophils % % Lymphocytes % % Monocytes % % Eosinophils % % Basophils % % Immature Gran # (0.00-0.04) 10*3/uL Neutrophils # (1.80-7.70) 10*3/uL Lymphocytes # (0.90-5.00) 10*3/uL Monocytes # (0.20-1.00) 10*3/uL Eosinophils # (0.04-0.35) 10*3/uL Basophils # (0.00-0.10) 10*3/uL Sodium (137-145) mmol/L Potassium (3.5-5.1) mmol/L Chloride (98-107) mmol/L Carbon Dioxide (22-30) mmol/L Anion Gap mmol/L BUN (9-20) mg/dL Creatinine (0.66-1.25) mg/dL Est GFR (CKD-EPI)AfAm (>60 ml/min/1.73 sqM) Est GFR (CKD-EPI)NonAf (>60 ml/min/1.73 sqM) Glucose (74-99) mg/dL Plasma Lactic Acid Preet (0.7-2.0) mmol/L Calcium (8.4-10.2) mg/dL Phosphorus (2.5-4.5) mg/dL Magnesium (1.6-2.3) mg/dL Total Bilirubin (0.2-1.3) mg/dL AST (17-59) U/L ALT (4-49) U/L Alkaline Phosphatase (38-126) U/L Troponin I <0.012 (0.000-0.034) ng/mL Total Protein (6.3-8.2) g/dL Albumin (3.5-5.0) g/dL Urine Color Yellow Urine Appearance Turbid (Clear) Urine pH 6.0 (5.0-8.0) Ur Specific [place] 1.021 (1.001-1.035) Urine Protein 2+ H (Negative) Urine Glucose (UA) Negative (Negative) Urine Ketones Negative (Negative) Urine Blood Moderate H (Negative) Urine Nitrite Negative (Negative) Urine Bilirubin Negative (Negative) Urine Urobilinogen 2.0 (<2.0) mg/dL Ur Leukocyte Esterase Large H (Negative) Urine RBC 52 H (0-5) /hpf Urine WBC >182 H (0-5) /hpf Urine WBC Clumps Many H (None) /hpf Amorphous Sediment Moderate H (None) /hpf Urine Bacteria Many H (None) /hpf Hyaline Casts 63 H (0-2) /lpf Urine Mucus Rare H (None) /hpf Disposition Clinical Impression: Malfunction of Garcia catheter, Retention of urine, unspecified, Abdominal pain, ESRD (end stage renal disease) on dialysis, Generalized weakness, UTI (urinary tract infection), Hemodialysis patient Disposition: ADMITTED IP TO THIS [facility] Condition: Fair Is patient prescribed a controlled substance at d/c from ED?: No Time of Disposition: 03:00
[2025-01-01] MEDS: SODIUM CHLORIDE 0.9% 1,000 ML IV SCH ×2 (02:09→04:06)
[2025-01-01 02:19] LABS: Basophils # (A) 0.03 10*3/uL (0.00-0.10); Basophils % (A) 0.5 %; Eosinophils # (A) 0.20 10*3/uL (0.04-0.35); Eosinophils % (A) 3.2 %; HCT 30.2 % (39.6-50.0); HGB 9.7 g/dL (13.0-17.0); Lymphocytes # (A) 1.20 10*3/uL (0.90-5.00); Lymphocytes % (A) 19.5 %; MCH 33.9 pg (27.0-32.0); MCHC 32.1 g/dL (32.0-37.0); Monocytes # (A) 0.73 10*3/uL (0.20-1.00); Monocytes % (A) 11.9 %; Neutrophils # (A) 3.99 10*3/uL (1.80-7.70); Neutrophils % (A) 64.7 %; Platelet Count 126 10*3/uL (140-440); RBC 2.86 10*6/uL (4.40-5.60); RDW 17.7 % (11.5-14.5); WBC 6.16 10*3/uL (4.50-10.00)
[2025-01-01 02:30] LABS: MCV 105.6 fL (80.0-97.0)
[2025-01-01 02:31] LABS: ALT 22 U/L (4-49); AST 32 U/L (17-59); African American GFR (CKD) 18 (>60 ml/min/1.73 sqM); Albumin 4.1 g/dL (3.5-5.0); Alkaline Phosphatase 94 U/L (38-126); Anion Gap 11 mmol/L; Blood Urea Nitrogen 27 mg/dL (9-20); Calcium 8.3 mg/dL (8.4-10.2); Carbon Dioxide 33 mmol/L (22-30); Chloride 93 mmol/L (98-107); Glucose 138 mg/dL (74-99); Magnesium 1.9 mg/dL (1.6-2.3); Non-African American GFR(CKD) 15 (>60 ml/min/1.73 sqM); Potassium 4.0 mmol/L (3.5-5.1); Sodium 137 mmol/L (137-145); Total Protein 6.7 g/dL (6.3-8.2)
[2025-01-01] MEDS ORDERED: NALOXONE 0.4 MG/ML 1 ML VIAL IV PRN (02:58)
[2025-01-01 03:09] LABS: Amorphous Sediment,Urine Moderate /hpf; Bacteria,Urine Many /hpf; Bilirubin,Urine Negative (Negative); Blood,Urine Moderate (Negative); Color,Urine Yellow; Glucose,Urine (UA) Negative (Negative); Hyaline Casts,Urine 63 /lpf (0-2); Ketones,Urine Negative (Negative); Leukocyte Esterase,Urine Large (Negative); Mucus,Urine Rare /hpf; Nitrite,Urine Negative (Negative); PH, Urine 6.0 (5.0-8.0); Protein,Urine 2+ (Negative); RBC,Urine 52 /hpf (0-5); Specific Gravity,Urine 1.021 (1.001-1.035); Urobilinogen,Urine 2.0 mg/dL (<2.0); WBC,Urine >182 /hpf (0-5)
[2025-01-01] MEDS: MORPHINE SULFATE 4 MG/ML SYRINGE IV PRN (04:40)
[2025-01-01 07:47] LABS: Glucose,Whole Blood 213 mg/dL (70-110)
[2025-01-01] MEDS: PANTOPRAZOLE 40 MG/10 ML VIAL IV SCH (08:30)
--- NOTE | 2025-01-01 12:02 | P.HPIM ---
History of Present Illness H&P Date: 01/01/25 Chief Complaint: Complicated UTI with SIRS HISTORY OF PRESENT ILLNESS: This is a 59-year-old male with a previous medical history significant for coronary artery disease status post myocardial infarction back in 2014 and in 2022 status post PCI of the LAD as well as LCx, last stent placed was in 2022, hypertension and hypertensive cardiovascular disease, mixed h yperlipidemia, diabetes mellitus type 2, legally blind, history of ischemic cerebrovascular accident in the past with left-sided weakness, history of recurrent TIA, history of enlarged prostate, history of anxiety and depressive disorder, history of end-stage renal disease on hemodialysis Thursday and Thursday via fistula in the left upper extremity, patient was recently seen in the office for symptoms suggestive of urinary tract infection that is complicated UTI, he was started on ciprofloxacin 500 mg orally once every day and the patient ended up coming back to the emergency department because he was not doing better, he was seen in the emergency department at [facility] today with increased burning sensation and pain in the suprapubic area, his urinalysis was quite positive, last time he was in the hospital his urine culture was positive for enterobacteria clocae that was resistant to a lot of antibiotics including ceftriaxone and he did receive IV antibiotic at that time, in any regard patient was admitted to the hospital for evaluation of failed outpatient treatment of a complicated UTI with multidrug-resistant organism, infectious disease consultation was obtained, Discontinue ceftriaxone start the patient on Fortaz 1 g IV piggyback every 24 hours, he may need to be started on Avycaz REVIEW OF SYSTEMS: Constitutional: No documented fever, no chills, no night sweats. Significant weight change. Generalized weakness, fatigue or lethargy. No daytime sleepiness. EENT: No headache. Patient is legally blind, positive for loss of vision. No loss of Hearing, no ringing in the ears, no dizziness. No nasal drainage or congestion. No epistaxis. No sore throat. Lungs: No shortness of breath, no cough, no sputum production. No wheezing. Reports dyspnea with activity. Cardiovascular: No chest pain, no lower extremity edema. No palpitations. No paroxysmal nocturnal dyspnea. No orthopnea. No lightheadedness or dizziness. No syncopal episodes. Abdominal: Reports prepubic abdominal pain. Positive for nausea, vomiting. No diarrhea. Positive for constipation. No bloody stool reports loss of appetite. Genitourinary: Positive for dysuria, increased frequency, urgency, Garcia catheter in place. Musculoskeletal: No myalgias. No muscle weakness, no gait dysfunction, no frequent falls. No back pain. No neck pain. Integumentary: No wounds, no lesions. No rash or pruritus. No unusual bruising. No change in hair or nails. Neurologic: No aphasia. No facial droop. No change in mentation. No head injury. No headache. No paralysis. Positive for paresthesia due to diabetic polyneuropathy Psychiatric: Positive for depression. No anxiety. No mood swings. Endocrine: Positive for abnormal blood sugars. Significant weight change. PAST MEDICAL HISTORY: End-stage renal disease on hemodialysis Thursday and Thursday. Hypertension and hypertensive cardiovascular disease. Mixed hyperlipidemia. Coronary artery disease status post PCI of the LAD and LCx. Diabetes mellitus type 2. CVA with left-sided weakness Recurrent TIA. Enlarged prostate with urinary retention. Anemia Anxiety and depressive disorder. Osteoarthritis. PAST SURGICAL HISTORY: Cholecystectomy. Left heart catheterization last 1 was in June 17, 2024 Left heart catheterization with PCI in 2022. Left heart catheterization 2014. Hemodialysis port placed 03/14/2023 AV fistula of the left upper extremity Hiatal hernia repair. 01/23/2021 Prostate surgery. SOCIAL HISTORY: Patient is a lifelong non-smoker, he denies any alcohol ingestion, he denies any drug use or abuse, he recently lost his after she from metastatic uterine cancer and hospice program. He is legally blind, uses a quad cane as well as a wheelchair, he does not drive at this point in time. FAMILY HISTORY: Father in his 50s from myocardial infarction had history of CVA diabetes hypertension, mother at the age of 78 from Parkinson and had hypertension diabetes and history of CVA, patient had 3 brothers 1 at the age of 45 from [place] the other 2 from suicide, 2 sisters one 70-year-old and the other one 60-year-old no major medical problem patient has no kids. PHYSICAL EXAMINATION: General: 59-year-old male laying down in bed in no apparent distress. HEENT: Head is atraumatic, normocephalic, pupils were equal round reactive to light and recommendation, extraocular muscle movement were intact, sclera nonicteric, conjunctivae were pale, mucous membranes of the mouth are somewhat dry. Neck: Supple, no JVP, normal carotid upstroke bilaterally, no lymphadenopathy. Chest: Decreased breath sounds at the bases, few rhonchi, no expiratory wheezes, no chest wall tenderness, no intercostal retractions. Heart: First heart sound is normal, second heart sounds normal systolic ejection murmur 2/6 located in the left sternal border. Abdomen: Soft, mild tenderness in the epigastric as well as left lower quadrant mildly distended, positive bowel sounds. Extremities: There is no edema no calf tenderness DP +2 bilaterally. Neurologic examination: Patient is awake alert and oriented x3, cranial nerves II-12 appear grossly intact, left-sided weakness that has been chronic. ASSESSMENT AND PLAN: 1. complicated UTI with SIRS due to chronic indwelling Garcia catheterization . Discontinue ceftriaxone, start the patient on Fortaz 1 g piggyback every 24 hours, may need to be started on Avycaz infectious disease consultation with Dr. Angel. 2. End-stage renal disease on hemodialysis Thursday and Thursday. Consult nephrology for hemodialysis ordered. 3. Generalized weakness likely related to poor oral intake as well as worsening anemia. Continue treatment as in previous paragraphs. 4. Coronary artery disease status post recent heart catheterization 06/17/2024 that showed stable disease with patent stented arteries of the LAD and LCx. Continue patient on metoprolol ER 50 mg orally once every day, isosorbide mononitrate 30 mg orally once every day, hydralazine 50 mg orally 3 times every day, atorvastatin 80 mg once every day, ranolazine 500 mg orally twice every day, continue aspirin and Plavix 5. Hypertension and hypertensive cardiovascular disease. Continue patient on metoprolol ER 50 mg once every day, hydralazine 50 mg orally 3 times every day, losartan 25 mg once every day. 6. Mixed hyperlipidemia. Continue patient on atorvastatin 80 mg once every day, monitor the patient lipid panel, keep LDL 55 7. PAD. Stable at this time. Continue atorvastatin for secondary prevention. 8. Diabetes mellitus type 2 . Continue patient on Levemir 17 units at bedtime along with 9 units before each meal 3 times every day, monitor the patient blood sugar before each meal and bedtime. 9. History of CVA in the past with left-sided weakness and recurrent TIA. Continue patient on atorvastatin 80 mg once every day, continue patient on Plavix 75 mg once every day as well as aspirin 80 mg every day. 10. Enlarged prostate with urinary retention. Continue Flomax 0.4 mg orally twice every day. 11. History of gout. Continue patient on allopurinol 100 mg once every day. 12. History of anxiety and depressive disorder. Continue citalopram 60 mg orally once every day. 13. Anemia multifactorial monitor the patient hemoglobin very closely, transfuse for hemoglobin less than 7. 14. Observation. 15. Full code. Past Medical History Past Medical History: Coronary Artery Disease (CAD), Chest Pain / Angina, CVA/TIA, Diabetes Mellitus, Eye Disorder, GERD/Reflux, Hearing Disorder / Deafness, Hyperlipidemia, Hypertension, Myocardial Infarction ([place]), Prostate Disorder, Renal Disease, Rheumatoid Arthritis (RA) Additional Past Medical History / Comment(s): [place] X2 in 2014 and 02/2023., 02 3L/[place] prn., Hx stroke Apr 2017. , hx tia's ., left side weakness., Migranes., Diabetic neuropathy arms and legs, tremors off and on, circulation problems, uses quad cane and wheelchair prn., Kidney disease with dialysis TUTHSA. Hx P ancreatitis., Legally blind, some trouble hearing. Enlarged prostate, trouble urinating. , hx of uti's., anemia., constipation, arm surgery/fistula Last Myocardial Infarction Date:: 02/2023 History of Any Multi-Drug Resistant Organisms: CRE, Other MDRO Date of last positivie culture/infection: 08/14/24 MDRO Source:: urine Past Surgical History: Cholecystectomy, Heart Catheterization, Heart Catheterization With Stent, Heart Catheterization With Stent, Hernia Repair, Prostate Surgery Additional Past Surgical History / Comment(s): Dialysis Port Placed - 03/14/23, HIATAL HERNIA REPAIR - 01/23/21., states hx 5 heart caths with 5 stents., fistula on right arm, bilateral cataracts removed Past Anesthesia/Blood Transfusion Reactions: No Reported Reaction Additional Past Anesthesia/Blood Transfusion Reaction / Comment(s): . Date of Last Stent Placement:: 05/07/23 Past Psychological History: Anxiety, Depression Additional Psychological History / Comment(s): He uses a quad cane or walker to ambulate. He is legally blind. He reads minimally with magnifying glass and signs his name only now. Smoking Status: Never smoker Past Alcohol Use History: None Reported Past Drug Use History: None Reported - Past Family History Mother Family Medical History: CVA/TIA, Diabetes Mellitus, Hypertension Additional Family Medical History / Comment(s): Parkinson's. Father Family Medical History: Myocardial Infarction ([place]) Additional Family Medical History / Comment(s): Father of a [place] in his 50s. Medications and Allergies Home Medications Medication Instructions Recorded Confirmed Type Pantoprazole [Protonix] 40 mg PO BID 11/05/17 10/31/24 History Tamsulosin [Flomax] 0.4 mg PO BID 11/05/17 10/31/24 History Citalopram Hydrobromide [CeleXA] 60 mg PO DAILY 12/12/18 10/31/24 History allopurinoL [Zyloprim] 100 mg PO DAILY 04/05/19 10/31/24 History Atorvastatin [Lipitor] 80 mg PO HS 12/30/19 10/31/24 History Folic Acid/Vit B Complex and C 0.8 mg PO DAILY 05/05/23 10/31/24 History [Nephro-Cirilo Tablet] Losartan [Cozaar] 25 mg PO DAILY 09/19/23 10/31/24 History Metoprolol Succinate (ER) [Toprol 50 mg PO DAILY 09/19/23 10/31/24 History XL] Ranolazine [Ranexa] 500 mg PO Q12HR #60 tab 09/21/23 10/31/24 Rx Furosemide [Lasix] 80 mg PO DAILY 10/16/23 10/31/24 History Nitroglycerin Sl Tabs [Nitrostat] 0.4 mg SL Q5M PRN 10/16/23 11/03/24 History hydrALAZINE HCL [Apresoline] 50 mg PO TID 04/12/24 10/31/24 History Calcium Carbonate [Tums] 500 mg PO TID 06/16/24 10/31/24 History Clopidogrel [Plavix] 75 mg PO DAILY 06/16/24 11/03/24 History Aspirin 81 mg PO DAILY 06/20/24 10/31/24 History Loratadine [Claritin] 10 mg PO DAILY #30 tab 06/24/24 10/31/24 Rx Oxymetazoline 0.05% Nasl [place] 2 spray NASAL BID PRN #1 dispenser 06/24/24 10/31/24 Rx [Afrin 0.05% Nasal [place]] Isosorbide Mononitrate ER [Imdur] 30 mg PO DAILY #90 tab 07/01/24 10/31/24 Rx Insulin Glargine,Hum.rec.anlog 17 units SQ HS 07/12/24 10/31/24 History [Lantus Solostar Pen] Insulin Lispro [humaLOG Kwikpen] 9 unit SQ ACHS 07/12/24 10/31/24 History prednisoLONE ACETATE 1% OPHTH 1 drop LEFT EYE DIRECTED 08/09/24 10/31/24 History [Pred Forte 1%] cycloSPORINE 0.05% OPHTH SOLN 1 applicator BOTH EYES BID 10/31/24 10/31/24 History [Restasis] Ciprofloxacin HCl [Cipro] 500 mg PO Q12HR #27 tablet 11/10/24 Rx Allergies Allergy/AdvReac Type Severity Reaction Status Date / Time hydromorphone AdvReac Confusion Verified 01/01/25 00:40 Iodinated Contrast Media AdvReac Nausea & Verified 01/01/25 00:40 [Iodinated Contrast- Oral Vomiting and IV Dye] sucralfate AdvReac Nausea & Verified 01/01/25 00:40 Vomiting Physical Exam Vitals: Vital Signs Temp Pulse Pulse Resp BP BP Pulse Ox 01/01/25 08:00 98.1 F 62 17 145/66 96 01/01/25 03:46 98.4 F 69 16 174/70 99 01/01/25 03:29 98.6 F 65 18 131/60 98 01/01/25 00:37 98.3 F 62 18 143/69 98 Intake and Output 12/31/24 01/01/25 01/01/25 22:59 06:59 14:59 Intake Total 180 Balance 180 Intake: Oral 180 Other: Weight 88.224 kg Results CBC & Chem 7: 01/01/25 01:52 01/01/25 01:52 Labs: Abnormal Lab Results - Last 24 Hours (Table) 01/01/25 01/01/25 01/01/25 Range/Units 01:52 01:52 02:33 RBC 2.86 L (4.40-5.60) 10*6/uL Hgb 9.7 L (13.0-17.0) g/dL Hct 30.2 L (39.6-50.0) % MCV 105.6 H (80.0-97.0) fL MCH 33.9 H (27.0-32.0) pg Plt Count 126 L (140-440) 10*3/uL MPV 8.9 L (9.5-12.2) fL Chloride 93 L (98-107) mmol/L Carbon Dioxide 33 H (22-30) mmol/L BUN 27 H (9-20) mg/dL Creatinine 4.05 H (0.66-1.25) mg/dL Glucose 138 H (74-99) mg/dL POC Glucose (mg/dL) (70-110) mg/dL Calcium 8.3 L (8.4-10.2) mg/dL Urine Protein 2+ H (Negative) Urine Blood Moderate H (Negative) Ur Leukocyte Esterase Large H (Negative) Urine RBC 52 H (0-5) /hpf Urine WBC >182 H (0-5) /hpf Urine WBC Clumps Many H (None) /hpf Amorphous Sediment Moderate H (None) /hpf Urine Bacteria Many H (None) /hpf Hyaline Casts 63 H (0-2) /lpf Urine Mucus Rare H (None) /hpf 01/01/25 Range/Units 07:24 RBC (4.40-5.60) 10*6/uL Hgb (13.0-17.0) g/dL Hct (39.6-50.0) % MCV (80.0-97.0) fL MCH (27.0-32.0) pg Plt Count (140-440) 10*3/uL MPV (9.5-12.2) fL Chloride (98-107) mmol/L Carbon Dioxide (22-30) mmol/L BUN (9-20) mg/dL Creatinine (0.66-1.25) mg/dL Glucose (74-99) mg/dL POC Glucose (mg/dL) 213 H (70-110) mg/dL Calcium (8.4-10.2) mg/dL Urine Protein (Negative) Urine Blood (Negative) Ur Leukocyte Esterase (Negative) Urine RBC (0-5) /hpf Urine WBC (0-5) /hpf Urine WBC Clumps (None) /hpf Amorphous Sediment (None) /hpf Urine Bacteria (None) /hpf Hyaline Casts (0-2) /lpf Urine Mucus (None) /hpf Thrombosis Risk Factor Assmnt - Choose All That Apply Any of the Below Risk Factors Present?: Yes Each Factor Represents 1 point: Age 41-60 years, Obesity (BMI >25) Other Risk Factors: Yes Other congenital or acquired thrombophilia - If yes, enter type in comment: No Thrombosis Risk Factor Assessment Total Risk Factor Score: 2 Thrombosis Risk Factor Assessment Level: Low Risk
[2025-01-01 12:21] LABS: Glucose,Whole Blood 228 mg/dL (70-110)
--- NOTE | 2025-01-01 12:38 | P.NPCON ---
History of Present Illness - Reason for Consult Consult date: 01/01/25 - Chief Complaint UTI - History of Present Illness This is a 59-year-old male to the ER for evaluation well-known to this ER coming in for indwelling Garcia recent diagnosis of UTI and persistent symptoms here in the ER with severe pain both abdominal pain as well as pain in his penis, groin region. Burning and feelings of increased sensation, no fevers. Had full treatment of HD yesterday. No other complaints. General: No acute distress. LUNGS: No audible rhonchi or wheezes. HEART: Rate and Rhythm are regular. ABDOMEN: Nontender. EXTREMITITES: No edema. Review of Systems Constitutional: Reports as per HPI Past Medical History Past Medical History: Coronary Artery Disease (CAD), Chest Pain / Angina, CVA/TIA, Diabetes Mellitus, Eye Disorder, GERD/Reflux, Hearing Disorder / Deafness, Hyperlipidemia, Hypertension, Myocardial Infarction ([place]), Prostate Disorder, Renal Disease, Rheumatoid Arthritis ([place]) Additional Past Medical History / Comment(s): [place] X2 in 2014 and 02/2023., 02 3L/N C prn., Hx stroke Apr 2017. , hx tia's ., left side weakness., Migranes., Diabetic neuropathy arms and legs, tremors off and on, circulation problems, uses quad cane and wheelchair prn., Kidney disease with dialysis TUTHSA. Hx Pancreatitis., Legally blind, some trouble hearing. Enlarged prostate, trouble urinating. , hx of uti's., anemia., constipation, arm surgery/fistula Last Myocardial Infarction Date:: 02/2023 History of Any Multi-Drug Resistant Organisms: CRE, Other MDRO Date of last positivie culture/infection: 08/14/24 MDRO Source:: urine Past Surgical History: Cholecystectomy, Heart Catheterization, Heart Catheterization With Stent, Heart Catheterization With Stent, Hernia Repair, Prostate Surgery Additional Past Surgical History / Comment(s): Dialysis Port Placed - 03/14/23, HIATAL HERNIA REPAIR - 01/23/21., states hx 5 heart caths with 5 stents., fistula on right arm, bilateral cataracts removed Past Anesthesia/Blood Transfusion Reactions: No Reported Reaction Additional Past Anesthesia/Blood Transfusion Reaction / Comment(s): . Date of Last Stent Placement:: 05/07/23 Past Psychological History: Anxiety, Depression Additional Psychological History / Comment(s): He uses a quad cane or walker to ambulate. He is legally blind. He reads minimally with magnifying glass and signs his name only now. Smoking Status: Never smoker Past Alcohol Use History: None Reported Past Drug Use History: None Reported - Past Family History Mother Family Medical History: CVA/TIA, Diabetes Mellitus, Hypertension Additional Family Medical History / Comment(s): Parkinson's. Father Family Medical History: Myocardial Infarction ([place]) Additional Family Medical History / Comment(s): Father of a [place] in his 50s. Medications and Allergies Home Medications Medication Instructions Recorded Confirmed Type Pantoprazole [Protonix] 40 mg PO BID 11/05/17 10/31/24 History Tamsulosin [Flomax] 0.4 mg PO BID 11/05/17 10/31/24 History Citalopram Hydrobromide [CeleXA] 60 mg PO DAILY 12/12/18 10/31/24 History allopurinoL [Zyloprim] 100 mg PO DAILY 04/05/19 10/31/24 History Atorvastatin [Lipitor] 80 mg PO HS 12/30/19 10/31/24 History Folic Acid/Vit B Complex and C 0.8 mg PO DAILY 05/05/23 10/31/24 History [Nephro-Cirilo Tablet] Losartan [Cozaar] 25 mg PO DAILY 09/19/23 10/31/24 History Metoprolol Succinate (ER) [Toprol 50 mg PO DAILY 09/19/23 10/31/24 History XL] Ranolazine [Ranexa] 500 mg PO Q12HR #60 tab 09/21/23 10/31/24 Rx Furosemide [Lasix] 80 mg PO DAILY 10/16/23 10/31/24 History Nitroglycerin Sl Tabs [Nitrostat] 0.4 mg SL Q5M PRN 10/16/23 11/03/24 History hydrALAZINE HCL [Apresoline] 50 mg PO TID 04/12/24 10/31/24 History Calcium Carbonate [Tums] 500 mg PO TID 06/16/24 10/31/24 History Clopidogrel [Plavix] 75 mg PO DAILY 06/16/24 11/03/24 History Aspirin 81 mg PO DAILY 06/20/24 10/31/24 History Loratadine [Claritin] 10 mg PO DAILY #30 tab 06/24/24 10/31/24 Rx Oxymetazoline 0.05% Nasl [place] 2 spray NASAL BID PRN #1 dispenser 06/24/24 10/31/24 Rx [Afrin 0.05% Nasal [place]] Isosorbide Mononitrate ER [Imdur] 30 mg PO DAILY #90 tab 07/01/24 10/31/24 Rx Insulin Glargine,Hum.rec.anlog 17 units SQ HS 07/12/24 10/31/24 History [Lantus Solostar Pen] Insulin Lispro [humaLOG Kwikpen] 9 unit SQ ACHS 07/12/24 10/31/24 History prednisoLONE ACETATE 1% OPHTH 1 drop LEFT EYE DIRECTED 08/09/24 10/31/24 History [Pred Forte 1%] cycloSPORINE 0.05% OPHTH SOLN 1 applicator BOTH EYES BID 10/31/24 10/31/24 History [Restasis] Ciprofloxacin HCl [Cipro] 500 mg PO Q12HR #27 tablet 11/10/24 Rx Allergies Allergy/AdvReac Type Severity Reaction Status Date / Time hydromorphone AdvReac Confusion Verified 01/01/25 00:40 Iodinated Contrast Media AdvReac Nausea & Verified 01/01/25 00:40 [Iodinated Contrast- Oral Vomiting and IV Dye] sucralfate AdvReac Nausea & Verified 01/01/25 00:40 Vomiting Physical Exam Vitals: Vital Signs Temp Pulse Pulse Resp BP BP Pulse Ox 01/01/25 08:00 98.1 F 62 17 145/66 96 01/01/25 03:46 98.4 F 69 16 174/70 99 01/01/25 03:29 98.6 F 65 18 131/60 98 01/01/25 00:37 98.3 F 62 18 143/69 98 Intake and Output 12/31/24 01/01/25 01/01/25 22:59 06:59 14:59 Intake Total 180 Output Total 300 Balance 180 -300 Intake: Oral 180 Output: Urine 300 Other: Voiding Method Indwelling Catheter Weight 88.224 kg Results - Lab Results Most recent lab results Calcium 8.3 mg/dL (8.4-10.2) L 01/01/25 01:52 Phosphorus 3.9 mg/dL (2.5-4.5) 01/01/25 01:52 Magnesium 1.9 mg/dL (1.6-2.3) 01/01/25 01:52 01/01/25 01:52 01/01/25 01:52 Assessment and Plan Assessment: 1. End-stage renal disease maintained on hemodialysis on Thursday schedule. 2. 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 Garcia catheter changed this admission. Follows with urology. On Flomax. 3. UTI on antibiotics. Urine culture 12/26 negative 4. Anemia of chronic kidney disease maintained on Aranesp. 5. Diabetes mellitus. 6. Hypertension with chronic kidney disease. Plan: Continue HD TTS schedule Await urine cultures ABX per ID
[2025-01-01] MEDS ORDERED: NITROGLYCERIN SL TABS 0.4 MG TAB SUBLINGUAL PRN (14:30)
[2025-01-01] MEDS: MEROPENEM 500 MG in SODIUM CHLORIDE 0.9% 100 ML IVPB SCH (16:33)
[2025-01-01 17:30] LABS: Glucose,Whole Blood 217 mg/dL (70-110)
[2025-01-01] MEDS: INSULIN LISPRO (HumaLOG) 100 UNIT/ML 10 mL VL SQ SCH (17:50)
[2025-01-01 20:35] LABS: Glucose,Whole Blood 113 mg/dL (70-110)
[2025-01-01] MEDS: TAMSULOSIN 0.4 MG CAP.ER.24H PO SCH (20:55)
[2025-01-01] MEDS: ATORVASTATIN 80 MG TAB PO SCH (20:55)
[2025-01-01] MEDS: HEPARIN SODIUM,PORCINE 5,000 UNIT/ML 1 ML VIAL SQ SCH (20:56)
[2025-01-01] MEDS: RANOLAZINE 500 MG TAB.ER.12H PO SCH (20:56)
[2025-01-01 22:36] LABS: Glucose,Whole Blood 103 mg/dL (70-110)
--- NOTE | 2025-01-01 22:41 | P.CONS ---
History of Present Illness - Reason for Consult Consult date: 01/01/25 UTI Requesting physician: Diana Broderick - Chief Complaint Abdominal pain and burning micturition x days - History of Present Illness Patient is a 59-year-old male with a past medical history significant for end-stage renal disease on dialysis via right arm AV fistula patient still makes urine he did have history of recurrent UTI with the last urine culture done back in his August 2024 did grew into resistant Enterobacter cloacae patient apparently was recent diagnosis of presenting with UTI and has been treated with oral Cipro however the patient did not have any improvement in his symptoms and came to the hospital complaining of increasing burning sensation and pain in the suprapubic area with symptoms unimproved with oral Cipro patient describing his pain to be moderate without radiation some nausea but no vomiting and denies having hematuria no high-grade fever or chills patient on presentation the hospital was afebrile patient was not tachycardic hypotensive or hypoxic patient did have white year of 6.16 creatinine is 4.05 liver enzymes are normal urine has been positive patient was started on Fortaz infectious he was consulted for further management of antibiotic therapy Review of Systems Positive point and negatives has been mentioned in the HPI, complete review of systems was performed and all other systems are negative Past Medical History Past Medical History: Coronary Artery Disease (CAD), Chest Pain / Angina, CVA/TIA, Diabetes Mellitus, Eye Disorder, GERD/Reflux, Hearing Disorder / Deafness, Hyperlipidemia, Hypertension, Myocardial Infarction (RI), Prostate Di sorder, Renal Disease, Rheumatoid Arthritis (RA) Additional Past Medical History / Comment(s): RI X2 in 2014 and 02/2023., 02 3L/NC prn., Hx stroke Apr 2017. , hx tia's ., left side weakness., Migranes., Diabetic neuropathy arms and legs, tremors off and on, circulation problems, uses quad cane and wheelchair prn., Kidney disease with dialysis [facility]. Hx Pancreatitis., Legally blind, some trouble hearing. Enlarged prostate, trouble urinating. , hx of uti's., anemia., constipation, arm surgery/fistula Last Myocardial Infarction Date:: 02/2023 History of Any Multi-Drug Resistant Organisms: CRE, Other MDRO Year Discovered:: 08/14/24 MDRO Source:: urine Past Surgical History: Cholecystectomy, Heart Catheterization, Heart Catheterization With Stent, Heart Catheterization With Stent, Hernia Repair, Prostate Surgery Additional Past Surgical History / Comment(s): Dialysis Port Placed - 03/14/23, HIATAL HERNIA REPAIR - 01/23/21., states hx 5 heart caths with 5 stents., fistula on right arm, bilateral cataracts removed Past Anesthesia/Blood Transfusion Reactions: No Reported Reaction Additional Past Anesthesia/Blood Transfusion Reaction / Comm: . Date of Last Stent Placement:: 05/07/23 Past Psychological History: Anxiety, Depression Additional Psychological History / Comment(s): He uses a quad cane or walker to ambulate. He is legally blind. He reads minimally with magnifying glass and signs his name only now. Smoking Status: Never smoker Past Alcohol Use History: None Reported Past Drug Use History: None Reported - Past Family History Mother Family Medical History: CVA/TIA, Diabetes Mellitus, Hypertension Additional Family Medical History / Comment(s): Parkinson's. Father Family Medical History: Myocardial Infarction (RI) Additional Family Medical History / Comment(s): Father of a RI in his 50s. Medications and Allergies Home Medications Medication Instructions Recorded Confirmed Type Tamsulosin [Flomax] 0.4 mg PO BID 11/05/17 01/01/25 History Citalopram Hydrobromide [CeleXA] 20 mg PO DAILY 12/12/18 01/01/25 History allopurinoL [Zyloprim] 100 mg PO DAILY 04/05/19 01/01/25 History Atorvastatin [Lipitor] 80 mg PO HS 12/30/19 01/01/25 History Losartan [Cozaar] 25 mg PO DAILY 09/19/23 01/01/25 History Metoprolol Succinate (ER) [Toprol 50 mg PO DAILY 09/19/23 01/01/25 History XL] Ranolazine [Ranexa] 500 mg PO Q12HR #60 tab 09/21/23 01/01/25 Rx Furosemide [Lasix] 80 mg PO DAILY 10/16/23 01/01/25 History Nitroglycerin Sl Tabs [Nitrostat] 0.4 mg SL Q5M PRN 10/16/23 01/01/25 History hydrALAZINE HCL [Apresoline] 50 mg PO TID 04/12/24 01/01/25 History Clopidogrel [Plavix] 75 mg PO DAILY 06/16/24 01/01/25 History Isosorbide Mononitrate ER [Imdur] 30 mg PO DAILY #90 tab 07/01/24 01/01/25 Rx Insulin Glargine,Hum.rec.anlog 17 units SQ HS 07/12/24 01/01/25 History [Lantus Solostar Pen] Insulin Lispro [humaLOG Kwikpen] 9 unit SQ AC-TID 07/12/24 01/01/25 History cycloSPORINE 0.05% OPHTH SOLN 1 applicator BOTH EYES BID 10/31/24 01/01/25 History [Restasis] Linaclotide [Linzess] 72 mcg PO DAILY 01/01/25 01/01/25 History Allergies Allergy/AdvReac Type Severity Reaction Status Date / Time hydromorphone AdvReac Confusion Verified 01/01/25 13:57 Iodinated Contrast Media AdvReac Nausea & Verified 01/01/25 13:57 [Iodinated Contrast- Oral Vomiting and IV Dye] sucralfate AdvReac Nausea & Verified 01/01/25 13:57 Vomiting Physical Exam Vitals: Vital Signs Temp Pulse Pulse Resp BP BP Pulse Ox 01/01/25 08:00 98.1 F 62 17 145/66 96 01/01/25 03:46 98.4 F 69 16 174/70 99 01/01/25 03:29 98.6 F 65 18 131/60 98 01/01/25 00:37 98.3 F 62 18 143/69 98 Intake and Output 12/31/24 01/01/25 01/01/25 22:59 06:59 14:59 Intake Total 180 Output Total 300 Balance 180 -300 Intake: Oral 180 Output: Urine 300 Other: Voiding Method Indwelling Catheter Weight 88.224 kg GENERAL DESCRIPTION: Middle-age male lying in bed, no distress. No tachypnea or accessory muscle of respiration use. HEENT: Shows Pallor , no scleral icterus. Oral mucous membrane is dry. NECK: Trachea central, no thyromegaly. LUNGS: Unlabored breathing. Clear to auscultation anteriorly. No wheeze or crackle. HEART: S1, S2, regular rate and rhythm. No loud murmur ABDOMEN: Soft, no tenderness , EXTREMITIES: No edema of feet. SKIN: No rash, no masses palpable. NEUROLOGICAL: The patient is awake, alert, oriented x3, mood and affect normal. Results CBC & Chem 7: 01/01/25 01:52 01/01/25 01:52 Labs: Abnormal Lab Results - Last 24 Hours (Table) 01/01/25 01/01/25 01/01/25 Range/Units 01:52 01:52 02:33 RBC 2.86 L (4.40-5.60) 10*6/uL Hgb 9.7 L (13.0-17.0) g/dL Hct 30.2 L (39.6-50.0) % MCV 105.6 H (80.0-97.0) fL MCH 33.9 H (27.0-32.0) pg Plt Count 126 L (140-440) 10*3/uL MPV 8.9 L (9.5-12.2) fL Chloride 93 L (98-107) mmol/L Carbon Dioxide 33 H (22-30) mmol/L BUN 27 H (9-20) mg/dL Creatinine 4.05 H (0.66-1.25) mg/dL Glucose 138 H (74-99) mg/dL POC Glucose (mg/dL) (70-110) mg/dL Calcium 8.3 L (8.4-10.2) mg/dL Urine Protein 2+ H (Negative) Urine Blood Moderate H (Negative) Ur Leukocyte Esterase Large H (Negative) Urine RBC 52 H (0-5) /hpf Urine WBC >182 H (0-5) /hpf Urine WBC Clumps Many H (None) /hpf Amorphous Sediment Moderate H (None) /hpf Urine Bacteria Many H (None) /hpf Hyaline Casts 63 H (0-2) /lpf Urine Mucus Rare H (None) /hpf 01/01/25 01/01/25 Range/Units 07:24 12:20 RBC (4.40-5.60) 10*6/uL Hgb (13.0-17.0) g/dL Hct (39.6-50.0) % MCV (80.0-97.0) fL MCH (27.0-32.0) pg Plt Count (140-440) 10*3/uL MPV (9.5-12.2) fL Chloride (98-107) mmol/L Carbon Dioxide (22-30) mmol/L BUN (9-20) mg/dL Creatinine (0.66-1.25) mg/dL Glucose (74-99) mg/dL POC Glucose (mg/dL) 213 H 228 H (70-110) mg/dL Calcium (8.4-10.2) mg/dL Urine Protein (Negative) Urine Blood (Negative) Ur Leukocyte Esterase (Negative) Urine RBC (0-5) /hpf Urine WBC (0-5) /hpf Urine WBC Clumps (None) /hpf Amorphous Sediment (None) /hpf Urine Bacteria (None) /hpf Hyaline Casts (0-2) /lpf Urine Mucus (None) /hpf Assessment and Plan (1) UTI (urinary tract infection) Current Visit: Yes Status: Acute Code(s): N39.0 - URINARY TRACT INFECTION, SITE NOT SPECIFIED SNOMED Code(s): 99943067 (2) Failure of outpatient treatment Current Visit: Yes Status: Acute Code(s): Z78.9 - OTHER SPECIFIED HEALTH STATUS SNOMED Code(s): 767946677 Plan: 1patient presented hospital with burning urine suprapubic discomfort and significantly positive UA concerning for symptomatic UTI in this patient who recently did go to a drug-resistant Enterobacter feeling outpatient oral Cipro therapy 2-we will obtain ultrasound of the kidney bladder because of recurrent UTI to mention evidence of any structural abnormality 3-discontinue Fortaz 4-we will start the patient on meropenem 500 mg daily dose just to the kidney function while waiting for the culture to finalize We will follow on clinical condition and cultures to further adjust medication if needed Thank you for this consultation we will follow the patient along with you Dictation was produced using Megathread dictation software. please excuse any grammatical, word or spelling errors. Time with Patient: Greater than 30
[2025-01-01] MEDS: INSULIN GLARGINE (LANTUS) 100 UNIT/ML SYR SQ SCH (22:56)
[2025-01-02 07:23] LABS: Glucose,Whole Blood 180 mg/dL (70-110)
[2025-01-02 07:51] LABS: HCT 31.6 % (39.6-50.0); HGB 9.7 g/dL (13.0-17.0); MCH 32.6 pg (27.0-32.0); MCHC 30.7 g/dL (32.0-37.0); MCV 106.0 FL (80.0-97.0); NRBC Per 100 WBC 0 X 10*3/uL (0.00-0.01); Platelet Count 106 X 10*3/uL (140-440); RBC 2.98 X 10*6/uL (4.40-5.60); RDW 17.0 % (11.5-14.5); WBC 5.28 X 10*3/uL (4.50-10.00)
[2025-01-02 08:03] LABS: Magnesium 2.0 mg/dL (1.5-2.4)
[2025-01-02 08:10] LABS: Basophils # (A) 0.03 X 10*3/uL (0.00-0.10); Basophils % (A) 0.6 %; Eosinophils # (A) 0.19 X 10*3/uL (0.04-0.35); Eosinophils % (A) 3.6 %; Immature Grans, Automated 0.40 %; Lymphocytes # (A) 1.16 X 10*3/uL (0.90-5.00); Lymphocytes % (A) 22.0 %; Monocytes # (A) 0.63 X 10*3/uL (0.20-1.00); Monocytes % (A) 11.9 %; Neutrophils # (A) 3.25 X 10*3/uL (1.80-7.70); Neutrophils % (A) 61.5 %
--- NOTE | 2025-01-02 08:11 | P.PN ---
Subjective Patient is seen in follow-up for end-stage renal disease. He is maintained on hemodialysis on Thursday schedule. No active complaints. Has chronic Garcia catheter. Vital signs are stable. General: No acute distress. HEENT: Head exam is unremarkable. LUNGS: No audible rhonchi or wheezes. HEART: Rate and Rhythm are regular. ABDOMEN: Nontender. EXTREMITITES: No edema. Objective - Vital Signs Vital signs: Vital Signs Temp 98 F 01/02/25 01:13 Pulse 60 01/02/25 01:13 Resp 16 01/02/25 01:13 BP 128/79 01/02/25 01:13 Pulse Ox 99 01/02/25 01:13 FiO2 Intake & Output 01/01/25 01/02/25 01/02/25 18:59 06:59 18:59 Intake Total 1320 Output Total 600 500 Balance 720 -500 Intake: Oral 1320 Output: Urine 600 500 Other: Voiding Method Indwelling Catheter Indwelling Catheter - Labs CBC & Chem 7: 01/02/25 03:59 01/01/25 01:52 Labs: Abnormal Lab Results - Last 24 Hours (Table) 01/01/25 01/01/25 01/01/25 Range/Units 12:20 17:19 20:34 RBC (4.40-5.60) X 10*6/uL Hgb (13.0-17.0) g/dL Hct (39.6-50.0) % MCV (80.0-97.0) FL MCH (27.0-32.0) pg MCHC (32.0-37.0) g/dL RDW (11.5-14.5) % Plt Count (140-440) X 10*3/uL POC Glucose (mg/dL) 228 H 217 H 113 H (70-110) mg/dL 01/02/25 01/02/25 Range/Units 03:59 07:07 RBC 2.98 L (4.40-5.60) X 10*6/uL Hgb 9.7 L (13.0-17.0) g/dL Hct 31.6 L (39.6-50.0) % MCV 106.0 H (80.0-97.0) FL MCH 32.6 H (27.0-32.0) pg MCHC 30.7 L (32.0-37.0) g/dL RDW 17.0 H (11.5-14.5) % Plt Count 106 L (140-440) X 10*3/uL POC Glucose (mg/dL) 180 H (70-110) mg/dL Assessment and Plan Plan: Assessment: 1. End-stage renal disease maintained on hemodialysis on Thursday schedule. 2. UTI on antibiotics. 3. 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 Follows with urology outpatient. 4. Anemia of chronic kidney disease maintained on Aranesp. 5. Hypertension with chronic kidney disease. Stable. 6. Diabetes mellitus. Plan: Hemodialysis tomorrow. Antibiotics per ID
[2025-01-02 08:16] LABS: ALT 26 U/L (10-49); AST 37 U/L (14-35); Albumin 3.9 g/dL (3.8-4.9); Albumin/Globulin Ratio 1.56 Ratio (1.60-3.17); Alkaline Phosphatase 94 U/L (41-126); Anion Gap 12.30 mmol/L (4.00-12.00); BUN/Creat Ratio 6.16 Ratio (12.00-20.00); Blood Urea Nitrogen 33.9 mg/dL (9.0-27.0); Calcium 8.0 mg/dL (8.7-10.3); Carbon Dioxide 26.7 mmol/L (21.6-31.8); Chloride 97 mmol/L (96-109); Globulin 2.5 g/dL (1.6-3.3); Glucose 149 mg/dL (70-110); Potassium 5.2 mmol/L (3.5-5.5); Sodium 136 mmol/L (135-145); Total Protein 6.4 g/dL (6.2-8.2)
[2025-01-02] MEDS: CITALOPRAM HYDROBROMIDE 20 MG TAB PO SCH (08:20)
[2025-01-02] MEDS: FUROSEMIDE 80 MG TAB PO SCH (08:21)
[2025-01-02] MEDS: METOPROLOL SUCCINATE (ER) 50 MG TAB.ER.24H PO SCH (08:21)
[2025-01-02] MEDS: ISOSORBIDE MONONITRATE ER 30 MG TAB.ER.24H PO SCH (08:21)
[2025-01-02] MEDS: LOSARTAN 25 MG TAB PO SCH (08:21)
[2025-01-02] MEDS: CLOPIDOGREL 75 MG TAB PO SCH (08:21)
[2025-01-02] MEDS: NON FORMULARY DRUG (Linaclotide [Linzess] 72 MCG Capsule) PO SCH (08:21)
--- NOTE | 2025-01-02 08:34 | US ---
EXAMINATION TYPE: US kidneys/renal and bladder DATE OF EXAM: 01/02/2025 COMPARISON: CT CLINICAL INDICATION: Male, 59 years old with history of Recurrent UTI; bladder bustos TECHNIQUE: Grayscale imaging of the bilateral kidneys and urinary bladder: FINDINGS: EXAM MEASUREMENTS: Right Kidney: 9.6 x 4.6 x 5.1 cm Left Kidney: 10.3 x 5.1 x 4.9 cm Right Kidney: lower mid anechoic area = 1.0 x 1.2 x 1.0 cm Left Kidney: No hydronephrosis or masses seen Bladder: bladder bustos Bilateral Jets not seen due to bladder bustos There is no evidence for hydronephrosis at this point in time. No nephrolithiasis is seen. No derek s are identified. The urinary bladder is anechoic. IMPRESSION: 1. No evidence for obstructive uropathy or renal calculus. 2. Bustos catheter in place. 3. Simple appearing right renal cyst. [facility], , 01/02/2025 8:31 AM
[2025-01-02] MEDS: DARBEPOETIN ALFA 40 MCG/0.4 ML SYRINGE SQ SCH (10:31)
[2025-01-02 11:58] LABS: Glucose,Whole Blood 137 mg/dL (70-110)
[2025-01-02] MEDS: diphenhydrAMINE 25 MG CAP PO PRN (14:36)
[2025-01-02] MEDS: ONDANSETRON 4 MG/2 ML VIAL IVP PRN (14:41)
[2025-01-02 17:30] LABS: Glucose,Whole Blood 176 mg/dL (70-110)
--- NOTE | 2025-01-02 18:58 | P.PN ---
Subjective Progress Note Date: 01/02/25 HISTORY OF PRESENT ILLNESS: This is a 59-year-old male with a previous medical history significant for coronary artery disease status post myocardial infarction back in 2014 and in 2022 status post PCI of the LAD as well as LCx, last stent placed was in 2022, hypertension and hypertensive cardiovascular disease, mixed hyperlipidemia, diabetes mellitus type 2, legally blind, history of ischemic cerebrovascular accident in the past with left-sided weakness, history of recurrent TIA, history of enlarged prostate, history of anxiety and depressive disorder, history of end-stage renal disease on hemodialysis Thursday and Thursday via fistula in the left upper extremity, patient was recently seen in the office for symptoms suggestive of urinary tract infection that is complicated UTI, he was started on ciprofloxacin 500 mg orally once every day and the patient ended up coming back to the emergency department because he was not doing better, he was seen in the emergency department at [facility] today with increased burning sensation and pain in the suprapubic area, his urinalysis was quite positive, last time he was in the hospital his urine culture was positive for enterobacteria clocae that was resistant to a lot of antibiotics including ceftriaxone and he did receive IV antibiotic at that time, in any regard patient was admitted to the hospital for evaluation of failed outpatient treatment of a complicated UTI with multidrug-resistant organism, infectious disease consultation was obtained, Discontinue ceftriaxone start the patient on Fortaz 1 g IV piggyback every 24 hours, he may need to be started on Avycaz 01/02: Patient is laying down in bed in no apparent distress, he continues to have some pain at the tip of the penis, his urine culture came back negative so far, patient was on oral antibiotic in the form of ciprofloxacin prior to the arrival, continue meropenem, continue to follow-up with the patient very closely, patient did have an ultrasound of the abdomen did not show evidence of acute abnormalities, will change his Garcia catheter, and will discuss with infectious disease the plan of action hemodialysis tomorrow morning REVIEW OF SYSTEMS: Constitutional: No documented fever, no chills, no night sweats. Significant weight change. Generalized weakness, fatigue or lethargy. No daytime sleepiness. EENT: No headache. Patient is legally blind, positive for loss of vision. No loss of Hearing, no ringing in the ears, no dizziness. No nasal drainage or congestion. No epistaxis. No sore throat. Lungs: No shortness of breath, no cough, no sputum production. No wheezing. Reports dyspnea with activity. Cardiovascular: No chest pain, no lower extremity edema. No palpitations. No paroxysmal nocturnal dyspnea. No orthopnea. No lightheadedness or dizziness. No syncopal episodes. Abdominal: Reports prepubic abdominal pain. Positive for nausea, vomiting. No diarrhea. Positive for constipation. No bloody stool reports loss of appetite. Genitourinary: Positive for dysuria, increased frequency, urgency, Garcia gagan ter in place. Musculoskeletal: No myalgias. No muscle weakness, no gait dysfunction, no frequent falls. No back pain. No neck pain. Integumentary: No wounds, no lesions. No rash or pruritus. No unusual bruising. No change in hair or nails. Neurologic: No aphasia. No facial droop. No change in mentation. No head injury. No headache. No paralysis. Positive for paresthesia due to diabetic poly neuropathy Psychiatric: Positive for depression. No anxiety. No mood swings. Endocrine: Positive for abnormal blood sugars. Significant weight change. PHYSICAL EXAMINATION: General: 59-year-old male laying down in bed in no apparent distress. HEENT: Head is atraumatic, normocephalic, pupils were equal round reactive to light and recommendation, extraocular muscle movement were intact, sclera nonicteric, conjunctivae were pale, mucous membranes of the mouth are somewhat dry. Neck: Supple, no JVP, normal carotid upstroke bilaterally, no lymphadenopathy. Chest: Decreased breath sounds at the bases, few rhonchi, no expiratory wheezes, no chest wall tenderness, no intercostal retractions. Heart: First heart sound is normal, second heart sounds normal systolic ejection murmur 2/6 located in the left sternal border. Abdomen: Soft, mild tenderness in the epigastric as well as left lower quadrant mildly distended, positive bowel sounds. Extremities: There is no edema no calf tenderness DP +2 bilaterally. Neurologic examination: Patient is awake alert and oriented x3, cranial nerves II-12 appear grossly intact, left-sided weakness that has been chronic. ASSESSMENT AND PLAN: 1. complicated UTI with SIRS due to chronic indwelling Garcia catheterization . continue meropenem 1 g a piggyback every 24 hours, urine culture so far is negative patient was on antibiotic prior to the arrival, change Garcia catheter, infectious's consultation appreciated, ultrasound of the kidneys did not show evidence of acute abnormalities 2. End-stage renal disease on hemodialysis Thursday and Thursday. Consult nephrology for hemodialysis ordered. 3. Generalized weakness likely related to poor oral intake as well as worsening anemia. Continue treatment as in previous paragraphs. 4. Coronary artery disease status post recent heart catheterization 06/17/2024 that showed stable disease with patent stented arteries of the LAD and LCx. Continue patient on metoprolol ER 50 mg orally once every day, isosorbide mononitrate 30 mg orally once every day, hydralazine 50 mg orally 3 times every day, atorvastatin 80 mg once every day, ranolazine 500 mg orally twice every day, continue aspirin and Plavix 5. Hypertension and hypertensive cardiovascular disease. Continue patient on metoprolol ER 50 mg once every day, hydralazine 50 mg orally 3 times every day, losartan 25 mg once every day. 6. Mixed hyperlipidemia. Continue patient on atorvastatin 80 mg once every day, monitor the patient lipid panel, keep LDL 55 7. PAD. Stable at this time. Continue atorvastatin for secondary prevention. 8. Diabetes mellitus type 2 . Continue patient on Levemir 17 units at bedtime along with 9 units before each meal 3 times every day, monitor the patient blood sugar before each meal and bedtime. 9. History of CVA in the past with left-sided weakness and recurrent TIA. Continue patient on atorvastatin 80 mg once every day, continue patient on Plavix 75 mg once every day as well as aspirin 80 mg every day. 10. Enlarged prostate with urinary retention. Continue Flomax 0.4 mg orally twice every day. 11. History of gout. Continue patient on allopurinol 100 mg once every day. 12. History of anxiety and depressive disorder. Continue citalopram 60 mg orally once every day. 13. Anemia multifactorial monitor the patient hemoglobin very closely, tra nsfuse for hemoglobin less than 7. 14. 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 Objective - Vital Signs Vital signs: Vital Signs Temp 97.6 F 01/02/25 08:00 Pulse 58 L 01/02/25 08:00 Resp 17 01/02/25 08:00 BP 157/76 01/02/25 08:00 Pulse Ox 99 01/02/25 08:00 FiO2 Intake & Output 01/01/25 01/02/25 01/02/25 18:59 06:59 18:59 Intake Total 1320 Output Total 600 500 Balance 720 -500 Intake: Oral 1320 Output: Urine 600 500 Other: Voiding Method Indwelling Catheter Indwelling Catheter - Labs CBC & Chem 7: 01/02/25 03:59 01/02/25 03:59 Labs: Abnormal Lab Results - Last 24 Hours (Table) 01/01/25 01/01/25 01/01/25 Range/Units 12:20 17:19 20:34 RBC (4.40-5.60) X 10*6/uL Hgb (13.0-17.0) g/dL Hct (39.6-50.0) % MCV (80.0-97.0) FL MCH (27.0-32.0) pg MCHC (32.0-37.0) g/dL RDW (11.5-14.5) % Plt Count (140-440) X 10*3/uL Anion Gap (4.00-12.00) mmol/L BUN (9.0-27.0) mg/dL Creatinine (0.6-1.5) mg/dL Est GFR (CKD-EPI) (>=60) BUN/Creatinine Ratio (12.00-20.00) Ratio Glucose (70-110) mg/dL POC Glucose (mg/dL) 228 H 217 H 113 H (70-110) mg/dL Calcium (8.7-10.3) mg/dL AST (14-35) U/L Albumin/Globulin Ratio (1.60-3.17) Ratio 01/02/25 01/02/25 01/02/25 Range/Units 03:59 03:59 07:07 RBC 2.98 L (4.40-5.60) X 10*6/uL Hgb 9.7 L (13.0-17.0) g/dL Hct 31.6 L (39.6-50.0) % MCV 106.0 H (80.0-97.0) FL MCH 32.6 H (27.0-32.0) pg MCHC 30.7 L (32.0-37.0) g/dL RDW 17.0 H (11.5-14.5) % Plt Count 106 L (140-440) X 10*3/uL Anion Gap 12.30 H (4.00-12.00) mmol/L BUN 33.9 H (9.0-27.0) mg/dL Creatinine 5.5 H (0.6-1.5) mg/dL Est GFR (CKD-EPI) 11 L (>=60) BUN/Creatinine Ratio 6.16 L (12.00-20.00) Ratio Glucose 149 H (70-110) mg/dL POC Glucose (mg/dL) 180 H (70-110) mg/dL Calcium 8.0 L (8.7-10.3) mg/dL AST 37 H (14-35) U/L Albumin/Globulin Ratio 1.56 L (1.60-3.17) Ratio
[2025-01-02 20:19] LABS: Glucose,Whole Blood 68 mg/dL (70-110)
[2025-01-02 20:37] LABS: Glucose,Whole Blood 92 mg/dL (70-110)
[2025-01-02 21:07] LABS: Glucose,Whole Blood 103 mg/dL (70-110)
[2025-01-03 07:04] LABS: Glucose,Whole Blood 219 mg/dL (70-110)
[2025-01-03 08:20] LABS: Basophils # (A) 0.01 X 10*3/uL (0.00-0.10); Basophils % (A) 0.2 %; Eosinophils # (A) 0.18 X 10*3/uL (0.04-0.35); Eosinophils % (A) 3.7 %; HCT 30.4 % (39.6-50.0); HGB 9.4 g/dL (13.0-17.0); Immature Grans, Automated 0.60 %; Lymphocytes # (A) 0.77 X 10*3/uL (0.90-5.00); Lymphocytes % (A) 15.6 %; MCH 32.4 pg (27.0-32.0); MCHC 30.9 g/dL (32.0-37.0); MCV 104.8 FL (80.0-97.0); Monocytes # (A) 0.46 X 10*3/uL (0.20-1.00); Monocytes % (A) 9.3 %; NRBC Per 100 WBC 0 X 10*3/uL (0.00-0.01); Neutrophils # (A) 3.48 X 10*3/uL (1.80-7.70); Neutrophils % (A) 70.6 %; Platelet Count 122 X 10*3/uL (140-440); RBC 2.90 X 10*6/uL (4.40-5.60); RDW 16.9 % (11.5-14.5); WBC 4.93 X 10*3/uL (4.50-10.00)
[2025-01-03 08:59] LABS: ALT 23 U/L (10-49); AST 24 U/L (14-35); Albumin 4.0 g/dL (3.8-4.9); Albumin/Globulin Ratio 1.74 Ratio (1.60-3.17); Alkaline Phosphatase 100 U/L (41-126); Anion Gap 14.70 mmol/L (4.00-12.00); BUN/Creat Ratio 7.07 Ratio (12.00-20.00); Blood Urea Nitrogen 43.1 mg/dL (9.0-27.0); Calcium 7.6 mg/dL (8.7-10.3); Carbon Dioxide 24.3 mmol/L (21.6-31.8); Chloride 97 mmol/L (96-109); Globulin 2.3 g/dL (1.6-3.3); Glucose 162 mg/dL (70-110); Potassium 4.8 mmol/L (3.5-5.5); Sodium 136 mmol/L (135-145); Total Protein 6.3 g/dL (6.2-8.2)
--- NOTE | 2025-01-03 11:12 | P.PN ---
Subjective Patient is seen in follow-up for end-stage renal disease. He is maintained on hemodialysis on Thursday schedule. No active complaints. Has chronic Garcia catheter. Scheduled for dialysis today. No active complaints. Vital signs are stable. General: No acute distress. HEENT: Head exam is unremarkable. LUNGS: No audible rhonchi or wheezes. HEART: Rate and Rhythm are regular. ABDOMEN: Nontender. EXTREMITITES: No edema. Objective - Vital Signs Vital signs: Vital Signs Temp 97.9 F 01/03/25 07:49 Pulse 67 01/03/25 07:49 Resp 18 01/03/25 07:49 BP 149/71 01/03/25 07:49 Pulse Ox 97 01/03/25 07:49 FiO2 Intake & Output 01/02/25 01/03/25 01/03/25 18:59 06:59 18:59 Intake Total 1080 Output Total 500 500 Balance 580 -500 Intake: Oral 1080 Output: Urine 500 500 Uretheral (Garcia) 200 Other: Voiding Method Indwelling Catheter Indwelling Catheter - Labs CBC & Chem 7: 01/03/25 05:03 01/03/25 05:03 Labs: Abnormal Lab Results - Last 24 Hours (Table) 01/02/25 01/02/25 01/02/25 Range/Units 11:50 17:25 20:13 RBC (4.40-5.60) X 10*6/uL Hgb (13.0-17.0) g/dL Hct (39.6-50.0) % MCV (80.0-97.0) FL MCH (27.0-32.0) pg MCHC (32.0-37.0) g/dL RDW (11.5-14.5) % Plt Count (140-440) X 10*3/uL MPV (9.5-12.2) FL Lymphocytes # (0.90-5.00) X 10*3/uL Anion Gap (4.00-12.00) mmol/L BUN (9.0-27.0) mg/dL Creatinine (0.6-1.5) mg/dL Est GFR (CKD-EPI) (>=60) BUN/Creatinine Ratio (12.00-20.00) Ratio Glucose (70-110) mg/dL POC Glucose (mg/dL) 137 H 176 H 68 L (70-110) mg/dL Calcium (8.7-10.3) mg/dL 01/03/25 01/03/25 01/03/25 Range/Units 05:03 05:03 07:03 RBC 2.90 L (4.40-5.60) X 10*6/uL Hgb 9.4 L (13.0-17.0) g/dL Hct 30.4 L (39.6-50.0) % MCV 104.8 H (80.0-97.0) FL MCH 32.4 H (27.0-32.0) pg MCHC 30.9 L (32.0-37.0) g/dL RDW 16.9 H (11.5-14.5) % Plt Count 122 L (140-440) X 10*3/uL MPV 9.2 L (9.5-12.2) FL Lymphocytes # 0.77 L (0.90-5.00) X 10*3/uL Anion Gap 14.70 H (4.00-12.00) mmol/L BUN 43.1 H (9.0-27.0) mg/dL Creatinine 6.1 H (0.6-1.5) mg/dL Est GFR (CKD-EPI) 10 L (>=60) BUN/Creatinine Ratio 7.07 L (12.00-20.00) Ratio Glucose 162 H (70-110) mg/dL POC Glucose (mg/dL) 219 H (70-110) mg/dL Calcium 7.6 L (8.7-10.3) mg/dL Microbiology - Last 24 Hours (Table) 01/01/25 01:52 Blood Culture - Preliminary Blood 01/01/25 02:33 Urine Culture - Final Urine,Voided Assessment and Plan Plan: Assessment: 1. End-stage renal disease maintained on hemodialysis on Thursday schedule. 2. UTI on antibiotics. 3. 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 Follows with urology outpatient. 4. Anemia of chronic kidney disease maintained on Aranesp. 5. Hypertension with chronic kidney disease. Stable. 6. Diabetes mellitus. Plan: Hemodialysis today. Antibiotics per ID
[2025-01-03 12:06] LABS: Glucose,Whole Blood 124 mg/dL (70-110)
--- NOTE | 2025-01-03 13:16 | P.PN ---
Subjective Progress Note Date: 01/03/25 HISTORY OF PRESENT ILLNESS: This is a 59-year-old male with a previous medical history significant for coronary artery disease status post myocardial infarction back in 2014 and in 2022 status post PCI of the LAD as well as LCx, last stent placed was in 2022, hypertension and hypertensive cardiovascular disease, mixed hyperlipidemia, diabetes mellitus type 2, legally blind, history of ischemic cerebrovascular accident in the past with left-sided weakness, history of recurrent TIA, history of enlarged prostate, history of anxiety and depressive disorder, history of end-stage renal disease on hemodialysis Thursday and Thursday via fistula in the left upper extremity, patient was recently seen in the office for symptoms suggestive of urinary tract infection that is complicated UTI, he was started on ciprofloxacin 500 mg orally once every day and the patient ended up coming back to the emergency department because he was not doing better, he was seen in the emergency department at [facility] today with increased burning sensation and pain in the suprapubic area, his urinalysis was quite positive, last time he was in the hospital his urine culture was positive for enterobacteria clocae that was resistant to a lot of antibiotics including ceftriaxone and he did receive IV antibiotic at that time, in any regard patient was admitted to the hospital for evaluation of failed outpatient treatment of a complicated UTI with multidrug-resistant organism, infectious disease consultation was obtained, Discontinue ceftriaxone start the patient on Fortaz 1 g IV piggyback every 24 hours, he may need to be started on Avycaz 01/02: Patient is laying down in bed in no apparent distress, he continues to have some pain at the tip of the penis, his urine culture came back negative so far, patient was on oral antibiotic in the form of ciprofloxacin prior to the arrival, continue meropenem, continue to follow-up with the patient very closely, patient did have an ultrasound of the abdomen did not show evidence of acute abnormalities, will change his Garcia catheter, and will discuss with infectious disease the plan of action hemodialysis tomorrow morning 01/03: Patient is laying down in bed in no apparent distress, he is getting his hemodialysis, he complained of some suprapubic pain at this time, he continued to have the pain in his penis, his Garcia catheter was changed, urine culture was repeated, left worse: Urine culture was contamination, continue meropenem 1 g piggyback every 24 hours after dialysis, follow-up with the patient very closely REVIEW OF SYSTEMS: Constitutional: No documented fever, no chills, no night sweats. Significant weight change. Generalized weakness, fatigue or lethargy. No daytime sleepiness. EENT: No headache. Patient is legally blind, positive for loss of vision. No loss of Hearing, no ringing in the ears, no dizziness. No nasal drainage or congestion. No epistaxis. No sore throat. Lungs: No shortness of breath, no cough, no sputum production. No wheezing. Reports dyspnea with activity. Cardiovascular: No chest pain, no lower extremity edema. No palpitations. No paroxysmal nocturnal dyspnea. No orthopnea. No lightheadedness or dizziness. No syncopal episodes. Abdominal: Reports prepubic abdominal pain. Positive for nausea, vomiting. No diarrhea. Positive for constipation. No bloody stool reports loss of appetite. Genitourinary: Positive for dysuria, increased frequency, urgency, Garcia cathet er in place. Musculoskeletal: No myalgias. No muscle weakness, no gait dysfunction, no frequent falls. No back pain. No neck pain. Integumentary: No wounds, no lesions. No rash or pruritus. No unusual bruising. No change in hair or nails. Neurologic: No aphasia. No facial droop. No change in mentation. No head injury. No headache. No paralysis. Positive for paresthesia due to diabetic polyn europathy Psychiatric: Positive for depression. No anxiety. No mood swings. Endocrine: Positive for abnormal blood sugars. Significant weight change. PHYSICAL EXAMINATION: General: 59-year-old male laying down in bed in no apparent distress. HEENT: Head is atraumatic, normocephalic, pupils were equal round reactive to light and recommendation, extraocular muscle movement were intact, sclera nonicteric, conjunctivae were pale, mucous membranes of the mouth are somewhat dry. Neck: Supple, no JVP, normal carotid upstroke bilaterally, no lymphadenopathy. Chest: Decreased breath sounds at the bases, few rhonchi, no expiratory wheezes, no chest wall tenderness, no intercostal retractions. Heart: First heart sound is normal, second heart sounds normal systolic ejection murmur 2/6 located in the left sternal border. Abdomen: Soft, mild tenderness in the epigastric as well as left lower quadrant mildly distended, positive bowel sounds. Extremities: There is no edema no calf tenderness DP +2 bilaterally. Neurologic examination: Patient is awake alert and oriented x3, cranial nerves II-12 appear grossly intact, left-sided weakness that has been chronic. ASSESSMENT AND PLAN: 1. complicated UTI with SIRS due to chronic indwelling Garcia catheterization . continue meropenem 1 g a piggyback every 24 hours, urine culture so far is negative patient was on antibiotic prior to the arrival, change Garcia catheter, infectious's consultation appreciated, ultrasound of the kidneys did not show evidence of acute abnormalities 2. End-stage renal disease on hemodialysis Thursday and Thursday. Consult nephrology for hemodialysis ordered. 3. Generalized weakness likely related to poor oral intake as well as worsening anemia. Continue treatment as in previous paragraphs. 4. Coronary artery disease status post recent heart catheterization 06/17/2024 that showed stable disease with patent stented arteries of the LAD and LCx. Continue patient on metoprolol ER 50 mg orally once every day, isosorbide mononitrate 30 mg orally once every day, hydralazine 50 mg orally 3 times every day, atorvastatin 80 mg once every day, ranolazine 500 mg orally twice every day, continue aspirin and Plavix 5. Hypertension and hypertensive cardiovascular disease. Continue patient on metoprolol ER 50 mg once every day, hydralazine 50 mg orally 3 times every day, losartan 25 mg once every day. 6. Mixed hyperlipidemia. Continue patient on atorvastatin 80 mg once every day, monitor the patient lipid panel, keep LDL 55 7. PAD. Stable at this time. Continue atorvastatin for secondary prevention. 8. Diabetes mellitus type 2 . Continue patient on Levemir 17 units at bedtime along with 9 units before each meal 3 times every day, monitor the patient blood sugar before each meal and bedtime. 9. History of CVA in the past with left-sided weakness and recurrent TIA. Continue patient on atorvastatin 80 mg once every day, continue patient on Plavix 75 mg once every day as well as aspirin 80 mg every day. 10. Enlarged prostate with urinary retention. Continue Flomax 0.4 mg orally twice every day. 11. History of gout. Continue patient on allopurinol 100 mg once every day. 12. History of anxiety and depressive disorder. Continue citalopram 60 mg orally once every day. 13. Anemia multifactorial monitor the patient hemoglobin very closely, galan sfuse for hemoglobin less than 7. 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 Objective - Vital Signs Vital signs: Vital Signs Temp 97.9 F 01/03/25 07:49 Pulse 67 01/03/25 07:49 Resp 18 01/03/25 07:49 BP 149/71 01/03/25 07:49 Pulse Ox 97 01/03/25 07:49 FiO2 Intake & Output 01/02/25 01/03/25 01/03/25 18:59 06:59 18:59 Intake Total 1080 Output Total 500 500 Balance 580 -500 Intake: Oral 1080 Output: Urine 500 500 Uretheral (Garcia) 200 Other: Voiding Method Indwelling Catheter Indwelling Catheter - Labs CBC & Chem 7: 01/03/25 05:03 01/03/25 05:03 Labs: Abnormal Lab Results - Last 24 Hours (Table) 01/02/25 01/02/25 01/02/25 Range/Units 11:50 17:25 20:13 RBC (4.40-5.60) X 10*6/uL Hgb (13.0-17.0) g/dL Hct (39.6-50.0) % MCV (80.0-97.0) FL MCH (27.0-32.0) pg MCHC (32.0-37.0) g/dL RDW (11.5-14.5) % Plt Count (140-440) X 10*3/uL MPV (9.5-12.2) FL Lymphocytes # (0.90-5.00) X 10*3/uL Anion Gap (4.00-12.00) mmol/L BUN (9.0-27.0) mg/dL Creatinine (0.6-1.5) mg/dL Est GFR (CKD-EPI) (>=60) BUN/Creatinine Ratio (12.00-20.00) Ratio Glucose (70-110) mg/dL POC Glucose (mg/dL) 137 H 176 H 68 L (70-110) mg/dL Calcium (8.7-10.3) mg/dL 01/03/25 01/03/25 01/03/25 Range/Units 05:03 05:03 07:03 RBC 2.90 L (4.40-5.60) X 10*6/uL Hgb 9.4 L (13.0-17.0) g/dL Hct 30.4 L (39.6-50.0) % MCV 104.8 H (80.0-97.0) FL MCH 32.4 H (27.0-32.0) pg MCHC 30.9 L (32.0-37.0) g/dL RDW 16.9 H (11.5-14.5) % Plt Count 122 L (140-440) X 10*3/uL MPV 9.2 L (9.5-12.2) FL Lymphocytes # 0.77 L (0.90-5.00) X 10*3/uL Anion Gap 14.70 H (4.00-12.00) mmol/L BUN 43.1 H (9.0-27.0) mg/dL Creatinine 6.1 H (0.6-1.5) mg/dL Est GFR (CKD-EPI) 10 L (>=60) BUN/Creatinine Ratio 7.07 L (12.00-20.00) Ratio Glucose 162 H (70-110) mg/dL POC Glucose (mg/dL) 219 H (70-110) mg/dL Calcium 7.6 L (8.7-10.3) mg/dL Microbiology - Last 24 Hours (Table) 01/01/25 01:52 Blood Culture - Preliminary Blood 01/01/25 02:33 Urine Culture - Final Urine,Voided
[2025-01-03 14:36] LABS: Bacteria,Urine Rare /hpf; Bilirubin,Urine Negative (Negative); Blood,Urine Trace (Negative); Color,Urine Light Yellow; Glucose,Urine (UA) Negative (Negative); Ketones,Urine Negative (Negative); Leukocyte Esterase,Urine Moderate (Negative); Mucus,Urine Rare /hpf; Nitrite,Urine Negative (Negative); PH, Urine 7.5 (5.0-8.0); Protein,Urine 1+ (Negative); RBC,Urine 5 /hpf (0-5); Specific Gravity,Urine 1.010 (1.001-1.035); Squamous Epithelial Cell,Urine <1 /hpf (0-4); Urobilinogen,Urine <2.0 mg/dL (<2.0); WBC,Urine 13 /hpf (0-5)
--- NOTE | 2025-01-03 15:59 | P.PN ---
Subjective Progress Note Date: 01/02/25 Principal diagnosis: Reason for follow-up is UTI Patient is a 59-year-old male with a past medical history significant for end-stage renal disease on dialysis via right arm AV fistula patient still makes urine he did have history of recurrent UTI with the last urine culture done back in his August 2024 did grew into resistant Enterobacter cloacae presented to hospital with significant burning of urine and suprapubic pain positive with concern for symptomatic UTI. On today's evaluation that is 01/02/2025, patient has been afebrile, patient is breathing comfortably and is currently on room air, patient denies having any chest pain and cough, patient denies nausea vomiting or diarrhea patient mentions some improvement in the lower abdominal discomfort and urinary symptoms. Patient white count is 5.28 creatinine is 5.5 Objective - Vital Signs Vital signs: Vital Signs Temp 97.6 F 01/02/25 12:57 Pulse 62 01/02/25 12:57 Resp 19 01/02/25 12:57 BP 142/63 01/02/25 12:57 Pulse Ox 96 01/02/25 12:57 FiO2 Intake & Output 01/01/25 01/02/25 01/02/25 18:59 06:59 18:59 Intake Total 1320 Output Total 600 500 200 Balance 720 -500 -200 Intake: Oral 1320 Output: Urine 600 500 200 Uretheral (Garcia) 200 Other: Voiding Method Indwelling Catheter Indwelling Catheter Indwelling Catheter - Exam GENERAL DESCRIPTION: Middle-age male lying in bed in no distress RESPIRATORY SYSTEM: Unlabored breathing , decreased breath sounds at bases HEART: S1 S2 regular rate and rhythm , ABDOMEN: Soft , no tenderness EXTREMITIES: No edema feet - Labs CBC & Chem 7: 01/03/25 05:03 01/03/25 05:03 Labs: Abnormal Lab Results - Last 24 Hours (Table) 01/01/25 01/01/25 01/02/25 Range/Units 17:19 20:34 03:59 RBC 2.98 L (4.40-5.60) X 10*6/uL Hgb 9.7 L (13.0-17.0) g/dL Hct 31.6 L (39.6-50.0) % MCV 106.0 H (80.0-97.0) FL MCH 32.6 H (27.0-32.0) pg MCHC 30.7 L (32.0-37.0) g/dL RDW 17.0 H (11.5-14.5) % Plt Count 106 L (140-440) X 10*3/uL Anion Gap (4.00-12.00) mmol/L BUN (9.0-27.0) mg/dL Creatinine (0.6-1.5) mg/dL Est GFR (CKD-EPI) (>=60) BUN/Creatinine Ratio (12.00-20.00) Ratio Glucose (70-110) mg/dL POC Glucose (mg/dL) 217 H 113 H (70-110) mg/dL Calcium (8.7-10.3) mg/dL AST (14-35) U/L Albumin/Globulin Ratio (1.60-3.17) Ratio 01/02/25 01/02/25 01/02/25 Range/Units 03:59 07:07 11:50 RBC (4.40-5.60) X 10*6/uL Hgb (13.0-17.0) g/dL Hct (39.6-50.0) % MCV (80.0-97.0) FL MCH (27.0-32.0) pg MCHC (32.0-37.0) g/dL RDW (11.5-14.5) % Plt Count (140-440) X 10*3/uL Anion Gap 12.30 H (4.00-12.00) mmol/L BUN 33.9 H (9.0-27.0) mg/dL Creatinine 5.5 H (0.6-1.5) mg/dL Est GFR (CKD-EPI) 11 L (>=60) BUN/Creatinine Ratio 6.16 L (12.00-20.00) Ratio Glucose 149 H (70-110) mg/dL POC Glucose (mg/dL) 180 H 137 H (70-110) mg/dL Calcium 8.0 L (8.7-10.3) mg/dL AST 37 H (14-35) U/L Albumin/Globulin Ratio 1.56 L (1.60-3.17) Ratio Microbiology - Last 24 Hours (Table) 01/01/25 01:52 Blood Culture - Preliminary Blood 01/01/25 02:33 Urine Culture - Final Urine,Voided Assessment and Plan (1) UTI (urinary tract infection) Current Visit: Yes Status: Acute Code(s): N39.0 - URINARY TRACT INFECTION, SITE NOT SPECIFIED SNOMED Code(s): 41263888 (2) Failure of outpatient treatment Current Visit: Yes Status: Acute Code(s): Z78.9 - OTHER SPECIFIED HEALTH STATUS SNOMED Code(s): 982286002 Plan: 1patient presented hospital with burning urine suprapubic discomfort and significantly positive UA concerning for symptomatic UTI in this patient who r ecently did go to a drug-resistant Enterobacter feeling outpatient oral Cipro therapy 2-we will obtain ultrasound of the kidney bladder because of recurrent UTI to mention evidence of any structural abnormality 3-patient mention some improvement send to continue meropenem 500 mg daily while waiting for the culture to finalize Dictation was produced using [employer] dictation software. please excuse any grammatical, word or spelling errors. Time with Patient: Less than 30
--- NOTE | 2025-01-03 16:00 | P.PN ---
Subjective Progress Note Date: 01/03/25 Principal diagnosis: Reason for follow-up is UTI Patient is a 59-year-old male with a past medical history significant for end-stage renal disease on dialysis via right arm AV fistula patient still makes urine he did have history of recurrent UTI with the last urine culture done back in his August 2024 did grew into resistant Enterobacter cloacae presented to hospital with significant burning of urine and suprapubic pain positive with concern for symptomatic UTI. On today's evaluation that is 01/03/2025, Patient is afebrile this morning patient denies having any chest pain shortness of breath or cough, the patient is currently on room air, patient denies any abdominal pain no diarrhea no nausea no vomiting did have improvement in the abdominal pain and urinary symptoms. Patient white count 4.93, creatinine 6.1. Cultures came back negative Objective - Vital Signs Vital signs: Vital Signs Temp 97.8 F 01/03/25 13:33 Pulse 64 01/03/25 13:33 Resp 18 01/03/25 13:33 BP 136/50 01/03/25 13:33 Pulse Ox 98 01/03/25 13:09 FiO2 Intake & Output 01/02/25 01/03/25 01/03/25 18:59 06:59 18:59 Intake Total 1080 400 Output Total 305 498 3189 Balance 580 -500 -3000 Intake: Oral 1080 Hemodialysis 400 Output: Urine 500 500 Uretheral (Garcia) 200 Hemodialysis 1900 Hemodialysis Net Amount 1500 Other: Voiding Method Indwelling Catheter Indwelling Catheter - Exam GENERAL DESCRIPTION: Middle-age male lying in bed in no distress RESPIRATORY SYSTEM: Unlabored breathing , decreased breath sounds at bases HEART: S1 S2 regular rate and rhythm , ABDOMEN: Soft , no tenderness EXTREMITIES: No edema feet - Labs CBC & Chem 7: 01/03/25 05:03 01/03/25 05:03 Labs: Abnormal Lab Results - Last 24 Hours (Table) 01/02/25 01/02/25 01/03/25 Range/Units 17:25 20:13 05:03 RBC 2.90 L (4.40-5.60) X 10*6/uL Hgb 9.4 L (13.0-17.0) g/dL Hct 30.4 L (39.6-50.0) % MCV 104.8 H (80.0-97.0) FL MCH 32.4 H (27.0-32.0) pg MCHC 30.9 L (32.0-37.0) g/dL RDW 16.9 H (11.5-14.5) % Plt Count 122 L (140-440) X 10*3/uL MPV 9.2 L (9.5-12.2) FL Lymphocytes # 0.77 L (0.90-5.00) X 10*3/uL Anion Gap (4.00-12.00) mmol/L BUN (9.0-27.0) mg/dL Creatinine (0.6-1.5) mg/dL Est GFR (CKD-EPI) (>=60) BUN/Creatinine Ratio (12.00-20.00) Ratio Glucose (70-110) mg/dL POC Glucose (mg/dL) 176 H 68 L (70-110) mg/dL Calcium (8.7-10.3) mg/dL Urine Protein (Negative) Urine Blood (Negative) Ur Leukocyte Esterase (Negative) Urine WBC (0-5) /hpf Urine Bacteria (None) /hpf Urine Mucus (None) /hpf 01/03/25 01/03/25 01/03/25 Range/Units 05:03 07:03 12:05 RBC (4.40-5.60) X 10*6/uL Hgb (13.0-17.0) g/dL Hct (39.6-50.0) % MCV (80.0-97.0) FL MCH (27.0-32.0) pg MCHC (32.0-37.0) g/dL RDW (11.5-14.5) % Plt Count (140-440) X 10*3/uL MPV (9.5-12.2) FL Lymphocytes # (0.90-5.00) X 10*3/uL Anion Gap 14.70 H (4.00-12.00) mmol/L BUN 43.1 H (9.0-27.0) mg/dL Creatinine 6.1 H (0.6-1.5) mg/dL Est GFR (CKD-EPI) 10 L (>=60) BUN/Creatinine Ratio 7.07 L (12.00-20.00) Ratio Glucose 162 H (70-110) mg/dL POC Glucose (mg/dL) 219 H 124 H (70-110) mg/dL Calcium 7.6 L (8.7-10.3) mg/dL Urine Protein (Negative) Urine Blood (Negative) Ur Leukocyte Esterase (Negative) Urine WBC (0-5) /hpf Urine Bacteria (None) /hpf Urine Mucus (None) /hpf 01/03/25 Range/Units 13:47 RBC (4.40-5.60) X 10*6/uL Hgb (13.0-17.0) g/dL Hct (39.6-50.0) % MCV (80.0-97.0) FL MCH (27.0-32.0) pg MCHC (32.0-37.0) g/dL RDW (11.5-14.5) % Plt Count (140-440) X 10*3/uL MPV (9.5-12.2) FL Lymphocytes # (0.90-5.00) X 10*3/uL Anion Gap (4.00-12.00) mmol/L BUN (9.0-27.0) mg/dL Creatinine (0.6-1.5) mg/dL Est GFR (CKD-EPI) (>=60) BUN/Creatinine Ratio (12.00-20.00) Ratio Glucose (70-110) mg/dL POC Glucose (mg/dL) (70-110) mg/dL Calcium (8.7-10.3) mg/dL Urine Protein 1+ H (Negative) Urine Blood Trace H (Negative) Ur Leukocyte Esterase Moderate H (Negative) Urine WBC 13 H (0-5) /hpf Urine Bacteria Rare H (None) /hpf Urine Mucus Rare H (None) /hpf Microbiology - Last 24 Hours (Table) 01/01/25 01:52 Blood Culture - Preliminary Blood 01/01/25 02:33 Urine Culture - Final Urine,Voided Assessment and Plan (1) UTI (urinary tract infection) Current Visit: Yes Status: Acute Code(s): N39.0 - URINARY TRACT INFECTION, SITE NOT SPECIFIED SNOMED Code(s): 56017068 (2) Failure of outpatient treatment Current Visit: Yes Status: Acute Code(s): Z78.9 - OTHER SPECIFIED HEALTH STATUS SNOMED Code(s): 065933360 Plan: 1patient presented hospital with burning urine suprapubic discomfort and significantly positive UA concerning for symptomatic UTI in this patient who recently did go to a drug-resistant Enterobacter feeling outpatient oral Cipro therapy 2-we will obtain ultrasound of the kidney bladder because of recurrent UTI to mention evidence of any structural abnormality 3-patient did have improvement in his symptoms however urine cultures came back negative I will repeat a UA continue with the meropenem will consider a short total 5-day course of therapy Dictation was produced using [employer] dictation software. please excuse any grammatical, word or spelling errors. Time with Patient: Less than 30
[2025-01-03 17:33] LABS: Glucose,Whole Blood 124 mg/dL (70-110)
[2025-01-03 20:13] LABS: Glucose,Whole Blood 185 mg/dL (70-110)
[2025-01-04 06:59] LABS: Glucose,Whole Blood 142 mg/dL (70-110)
[2025-01-04 08:02] LABS: Basophils # (A) 0.03 10*3/uL (0.00-0.10); Basophils % (A) 0.6 %; Eosinophils # (A) 0.17 10*3/uL (0.04-0.35); Eosinophils % (A) 3.4 %; HCT 30.0 % (39.6-50.0); HGB 9.9 g/dL (13.0-17.0); Lymphocytes # (A) 0.74 10*3/uL (0.90-5.00); Lymphocytes % (A) 14.8 %; MCH 33.6 pg (27.0-32.0); MCHC 33.0 g/dL (32.0-37.0); MCV 101.7 fL (80.0-97.0); Monocytes # (A) 0.45 10*3/uL (0.20-1.00); Monocytes % (A) 9.0 %; Neutrophils # (A) 3.57 10*3/uL (1.80-7.70); Neutrophils % (A) 71.6 %; Platelet Count 111 10*3/uL (140-440); RBC 2.95 10*6/uL (4.40-5.60); RDW 16.0 % (11.5-14.5); WBC 4.99 10*3/uL (4.50-10.00)
[2025-01-04 08:40] LABS: ALT 22 U/L (4-49); African American GFR (CKD) 18 (>60 ml/min/1.73 sqM); Albumin 3.9 g/dL (3.5-5.0); Albumin/Globulin Ratio 1.6; Anion Gap 10 mmol/L; Blood Urea Nitrogen 28 mg/dL (9-20); Calcium 8.1 mg/dL (8.4-10.2); Carbon Dioxide 24 mmol/L (22-30); Chloride 102 mmol/L (98-107); Globulin 2.5 g/dL; Glucose 117 mg/dL (74-99); Non-African American GFR(CKD) 15 (>60 ml/min/1.73 sqM); Sodium 136 mmol/L (137-145); Total Protein 6.4 g/dL (6.3-8.2)
[2025-01-04 08:53] LABS: AST 37 U/L (17-59); Alkaline Phosphatase 76 U/L (38-126); Potassium 4.9 mmol/L (3.5-5.1)
--- NOTE | 2025-01-04 10:40 | P.PN ---
Subjective Patient is seen in follow-up for end-stage renal disease. He is maintained on hemodialysis on Thursday schedule. No active complaints. Has chronic Garcia catheter. No problems with dialysis yesterday. Vital signs are stable. General: No acute distress. HEENT: Head exam is unremarkable. LUNGS: No audible rhonchi or wheezes. HEART: Rate and Rhythm are regular. ABDOMEN: Nontender. EXTREMITITES: No edema. Objective - Vital Signs Vital signs: Vital Signs Temp 97.7 F 01/04/25 07:29 Pulse 72 01/04/25 08:16 Resp 15 01/04/25 08:16 BP 165/75 01/04/25 07:29 Pulse Ox 97 01/04/25 07:29 FiO2 Intake & Output 01/03/25 01/04/25 01/04/25 18:59 06:59 18:59 Intake Total 400 520 Output Total 3850 500 Balance -3450 20 Intake: Oral 520 Hemodialysis 400 Output: Urine 450 500 Uretheral (Garcia) 500 Hemodialysis 1900 Hemodialysis Net Amount 1500 Other: Voiding Method Indwelling Catheter Indwelling Catheter # Bowel Movements 1 - Labs CBC & Chem 7: 01/04/25 07:41 01/04/25 07:41 Labs: Abnormal Lab Results - Last 24 Hours (Table) 01/03/25 01/03/25 01/03/25 Range/Units 12:05 13:47 17:31 RBC (4.40-5.60) 10*6/uL Hgb (13.0-17.0) g/dL Hct (39.6-50.0) % MCV (80.0-97.0) fL MCH (27.0-32.0) pg RDW (11.5-14.5) % Plt Count (140-440) 10*3/uL MPV (9.5-12.2) fL Lymphocytes # (0.90-5.00) 10*3/uL Sodium (137-145) mmol/L BUN (9-20) mg/dL Creatinine (0.66-1.25) mg/dL Glucose (74-99) mg/dL POC Glucose (mg/dL) 124 H 124 H (70-110) mg/dL Calcium (8.4-10.2) mg/dL Urine Protein 1+ H (Negative) Urine Blood Trace H (Negative) Ur Leukocyte Esterase Moderate H (Negative) Urine WBC 13 H (0-5) /hpf Urine Bacteria Rare H (None) /hpf Urine Mucus Rare H (None) /hpf 01/03/25 01/04/25 01/04/25 Range/Units 20:12 06:59 07:41 RBC 2.95 L (4.40-5.60) 10*6/uL Hgb 9.9 L (13.0-17.0) g/dL Hct 30.0 L (39.6-50.0) % MCV 101.7 H (80.0-97.0) fL MCH 33.6 H (27.0-32.0) pg RDW 16.0 H (11.5-14.5) % Plt Count 111 L (140-440) 10*3/uL MPV 9.1 L (9.5-12.2) fL Lymphocytes # 0.74 L (0.90-5.00) 10*3/uL Sodium (137-145) mmol/L BUN (9-20) mg/dL Creatinine (0.66-1.25) mg/dL Glucose (74-99) mg/dL POC Glucose (mg/dL) 185 H 142 H (70-110) mg/dL Calcium (8.4-10.2) mg/dL Urine Protein (Negative) Urine Blood (Negative) Ur Leukocyte Esterase (Negative) Urine WBC (0-5) /hpf Urine Bacteria (None) /hpf Urine Mucus (None) /hpf 01/04/25 Range/Units 07:41 RBC (4.40-5.60) 10*6/uL Hgb (13.0-17.0) g/dL Hct (39.6-50.0) % MCV (80.0-97.0) fL MCH (27.0-32.0) pg RDW (11.5-14.5) % Plt Count (140-440) 10*3/uL MPV (9.5-12.2) fL Lymphocytes # (0.90-5.00) 10*3/uL Sodium 136 L (137-145) mmol/L BUN 28 H (9-20) mg/dL Creatinine 4.03 H (0.66-1.25) mg/dL Glucose 117 H (74-99) mg/dL POC Glucose (mg/dL) (70-110) mg/dL Calcium 8.1 L (8.4-10.2) mg/dL Urine Protein (Negative) Urine Blood (Negative) Ur Leukocyte Esterase (Negative) Urine WBC (0-5) /hpf Urine Bacteria (None) /hpf Urine Mucus (None) /hpf Microbiology - Last 24 Hours (Table) 01/01/25 01:52 Blood Culture - Preliminary Blood Assessment and Plan Plan: Assessment: 1. End-stage renal disease maintained on hemodialysis on Thursday schedule. 2. UTI on antibiotics. 3. 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 Follows with urology outpatient. 4. Anemia of chronic kidney disease maintained on Aranesp. 5. Hypertension with chronic kidney disease. Stable. 6. Diabetes mellitus. Plan: Hemodialysis tomorrow. Antibiotics per ID.
[2025-01-04 12:26] LABS: Glucose,Whole Blood 114 mg/dL (70-110)
--- NOTE | 2025-01-04 13:49 | P.PN ---
Subjective Progress Note Date: 01/04/25 HISTORY OF PRESENT ILLNESS: This is a 59-year-old male with a previous medical history significant for coronary artery disease status post myocardial infarction back in 2014 and in 2022 status post PCI of the LAD as well as LCx, last stent placed was in 2022, hypertension and hypertensive cardiovascular disease, mixed hyperlipidemia, diabetes mellitus type 2, legally blind, history of ischemic cerebrovascular accident in the past with left-sided weakness, history of recurrent TIA, history of enlarged prostate, history of anxiety and depressive disorder, history of end-stage renal disease on hemodialysis Thursday and Thursday via fistula in the left upper extremity, patient was recently seen in the office for symptoms suggestive of urinary tract infection that is complicated UTI, he was started on ciprofloxacin 500 mg orally once every day and the patient ended up coming back to the emergency department because he was not doing better, he was seen in the emergency department at [facility] today with increased burning sensation and pain in the suprapubic area, his urinalysis was quite positive, last time he was in the hospital his urine culture was positive for enterobacteria clocae that was resistant to a lot of antibiotics including ceftriaxone and he did receive IV antibiotic at that time, in any regard patient was admitted to the hospital for evaluation of failed outpatient treatment of a complicated UTI with multidrug-resistant organism, infectious disease consultation was obtained, Discontinue ceftriaxone start the patient on Fortaz 1 g IV piggyback every 24 hours, he may need to be started on Avycaz 01/02: Patient is laying down in bed in no apparent distress, he continues to have some pain at the tip of the penis, his urine culture came back negative so far, patient was on oral antibiotic in the form of ciprofloxacin prior to the arrival, continue meropenem, continue to follow-up with the patient very closely, patient did have an ultrasound of the abdomen did not show evidence of acute abnormalities, will change his Garcia catheter, and will discuss with infectious disease the plan of action hemodialysis tomorrow morning 01/03: Patient is laying down in bed in no apparent distress, he is getting his hemodialysis, he complained of some suprapubic pain at this time, he continued to have the pain in his penis, his Garcia catheter was changed, urine culture was repeated, left worse: Urine culture was contamination, continue meropenem 1 g piggyback every 24 hours after dialysis, follow-up with the patient very closely 01/04: Patient is laying down in bed in no apparent distress, he did have dialysis yesterday, he is not having fever or chills at this point in time, he seems to be tolerating treatment well, he did have a good bowel movement yesterday, patient also had his Garcia catheter reinserted, infectious disease service recommended to repeat a urine culture from the new Garcia catheter, continue current treatment with meropenem 1 g piggyback every 24 hours, follow- up with the patient very closely, further recommendation is to follow the patient progression and the analytical consultant recommendation. REVIEW OF SYSTEMS: Constitutional: No documented fever, no chills, no night sweats. Significant weight change. Generalized weakness, fatigue or lethargy. No daytime sleepiness. EENT: No headache. Patient is legally blind, positive for loss of vision. No loss of Hearing, no ringing in the ears, no dizziness. No nasal drainage or congestion. No epistaxis. No sore throat. Lungs: No shortness of breath, no cough, no sputum production. No wheezing. Reports dyspnea with activity. Cardiovascular: No chest pain, no lower extremity edema. No palpitations. No paroxysmal nocturnal dyspnea. No orthopnea. No lightheadedness or dizziness. No syncopal episodes. Abdominal: Reports prepubic abdominal pain. Positive for nausea, vomiting. No diarrhea. Positive for constipation. No bloody stool reports loss of ap petite. Genitourinary: Positive for dysuria, increased frequency, urgency, Garcia catheter in place. Musculoskeletal: No myalgias. No muscle weakness, no gait dysfunction, no frequent falls. No back pain. No neck pain. Integumentary: No wounds, no lesions. No rash or pruritus. No unusual bruisin g. No change in hair or nails. Neurologic: No aphasia. No facial droop. No change in mentation. No head injury. No headache. No paralysis. Positive for paresthesia due to diabetic polyneuropathy Psychiatric: Positive for depression. No anxiety. No mood swings. Endocrine: Positive for abnormal blood sugars. Significant weight change. PHYSICAL EXAMINATION: General: 59-year-old male laying down in bed in no apparent distress. HEENT: Head is atraumatic, normocephalic, pupils were equal round reactive to light and recommendation, extraocular muscle movement were intact, sclera n onicteric, conjunctivae were pale, mucous membranes of the mouth are somewhat dry. Neck: Supple, no JVP, normal carotid upstroke bilaterally, no lymphadenopathy. Chest: Decreased breath sounds at the bases, few rhonchi, no expiratory wheezes, no chest wall tenderness, no intercostal retractions. Heart: First heart sound is normal, second heart sounds normal systolic ejection murmur 2/6 located in the left sternal border. Abdomen: Soft, mild tenderness in the epigastric as well as left lower quadrant mildly distended, positive bowel sounds. Extremities: There is no edema no calf tenderness DP +2 bilaterally. Neurologic examination: Patient is awake alert and oriented x3, cranial nerves II-12 appear grossly intact, left-sided weakness that has been chronic. ASSESSMENT AND PLAN: 1. complicated UTI with SIRS due to chronic indwelling Garcia catheterization . continue meropenem 1 g a piggyback every 24 hours, urine culture so far is negative patient was on antibiotic prior to the arrival, change Garcia catheter, infectious's consultation appreciated, ultrasound of the kidneys did not show evidence of acute abnormalities 2. End-stage renal disease on hemodialysis Thursday and Thursday. Consult nephrology for hemodialysis ordered. 3. Generalized weakness likely related to poor oral intake as well as worsening anemia. Continue treatment as in previous paragraphs. 4. Coronary artery disease status post recent heart catheterization 06/17/2024 that showed stable disease with patent stented arteries of the LAD and LCx. Continue patient on metoprolol ER 50 mg orally once every day, isosorbide mononitrate 30 mg orally once every day, hydralazine 50 mg orally 3 times every day, atorvastatin 80 mg once every day, ranolazine 500 mg orally twice every day, continue aspirin and Plavix 5. Hypertension and hypertensive cardiovascular disease. Continue patient on metoprolol ER 50 mg once every day, hydralazine 50 mg orally 3 times every day, losartan 25 mg once every day. 6. Mixed hyperlipidemia. Continue patient on atorvastatin 80 mg once every day, monitor the patient lipid panel, keep LDL 55 7. PAD. Stable at this time. Continue atorvastatin for secondary prevention. 8. Diabetes mellitus type 2 . Continue patient on Levemir 17 units at bedtime along with 9 units before each meal 3 times every day, monitor the patient blood sugar before each meal and bedtime. 9. History of CVA in the past with left-sided weakness and recurrent TIA. Cont inue patient on atorvastatin 80 mg once every day, continue patient on Plavix 75 mg once every day as well as aspirin 80 mg every day. 10. Enlarged prostate with urinary retention. Continue Flomax 0.4 mg orally twice every day. 11. History of gout. Continue patient on allopurinol 100 mg once every day. 12. History of anxiety and depressive disorder. Continue citalopram 60 mg orally once every day. 13. Anemia multifactorial monitor the patient hemoglobin very closely, transfuse for hemoglobin less than 7. 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 Objective - Vital Signs Vital signs: Vital Signs Temp 98.0 F 01/04/25 01:05 Pulse 69 01/04/25 01:05 Resp 14 01/04/25 01:05 BP 127/62 01/04/25 01:05 Pulse Ox 98 01/04/25 01:05 FiO2 Intake & Output 01/03/25 01/04/25 01/04/25 18:59 06:59 18:59 Intake Total 400 520 Output Total 3850 500 Balance -3450 20 Intake: Oral 520 Hemodialysis 400 Output: Urine 450 500 Uretheral (Garcia) 500 Hemodialysis 1900 Hemodialysis Net Amount 1500 Other: Voiding Method Indwelling Catheter # Bowel Movements 1 - Labs CBC & Chem 7: 01/03/25 05:03 01/03/25 05:03 Labs: Abnormal Lab Results - Last 24 Hours (Table) 01/03/25 01/03/25 01/03/25 Range/Units 05:03 05:03 12:05 RBC 2.90 L (4.40-5.60) X 10*6/uL Hgb 9.4 L (13.0-17.0) g/dL Hct 30.4 L (39.6-50.0) % MCV 104.8 H (80.0-97.0) FL MCH 32.4 H (27.0-32.0) pg MCHC 30.9 L (32.0-37.0) g/dL RDW 16.9 H (11.5-14.5) % Plt Count 122 L (140-440) X 10*3/uL MPV 9.2 L (9.5-12.2) FL Lymphocytes # 0.77 L (0.90-5.00) X 10*3/uL Anion Gap 14.70 H (4.00-12.00) mmol/L BUN 43.1 H (9.0-27.0) mg/dL Creatinine 6.1 H (0.6-1.5) mg/dL Est GFR (CKD-EPI) 10 L (>=60) BUN/Creatinine Ratio 7.07 L (12.00-20.00) Ratio Glucose 162 H (70-110) mg/dL POC Glucose (mg/dL) 124 H (70-110) mg/dL Calcium 7.6 L (8.7-10.3) mg/dL Urine Protein (Negative) Urine Blood (Negative) Ur Leukocyte Esterase (Negative) Urine WBC (0-5) /hpf Urine Bacteria (None) /hpf Urine Mucus (None) /hpf 01/03/25 01/03/25 01/03/25 Range/Units 13:47 17:31 20:12 RBC (4.40-5.60) X 10*6/uL Hgb (13.0-17.0) g/dL Hct (39.6-50.0) % MCV (80.0-97.0) FL MCH (27.0-32.0) pg MCHC (32.0-37.0) g/dL RDW (11.5-14.5) % Plt Count (140-440) X 10*3/uL MPV (9.5-12.2) FL Lymphocytes # (0.90-5.00) X 10*3/uL Anion Gap (4.00-12.00) mmol/L BUN (9.0-27.0) mg/dL Creatinine (0.6-1.5) mg/dL Est GFR (CKD-EPI) (>=60) BUN/Creatinine Ratio (12.00-20.00) Ratio Glucose (70-110) mg/dL POC Glucose (mg/dL) 124 H 185 H (70-110) mg/dL Calcium (8.7-10.3) mg/dL Urine Protein 1+ H (Negative) Urine Blood Trace H (Negative) Ur Leukocyte Esterase Moderate H (Negative) Urine WBC 13 H (0-5) /hpf Urine Bacteria Rare H (None) /hpf Urine Mucus Rare H (None) /hpf 01/04/25 Range/Units 06:59 RBC (4.40-5.60) X 10*6/uL Hgb (13.0-17.0) g/dL Hct (39.6-50.0) % MCV (80.0-97.0) FL MCH (27.0-32.0) pg MCHC (32.0-37.0) g/dL RDW (11.5-14.5) % Plt Count (140-440) X 10*3/uL MPV (9.5-12.2) FL Lymphocytes # (0.90-5.00) X 10*3/uL Anion Gap (4.00-12.00) mmol/L BUN (9.0-27.0) mg/dL Creatinine (0.6-1.5) mg/dL Est GFR (CKD-EPI) (>=60) BUN/Creatinine Ratio (12.00-20.00) Ratio Glucose (70-110) mg/dL POC Glucose (mg/dL) 142 H (70-110) mg/dL Calcium (8.7-10.3) mg/dL Urine Protein (Negative) Urine Blood (Negative) Ur Leukocyte Esterase (Negative) Urine WBC (0-5) /hpf Urine Bacteria (None) /hpf Urine Mucus (None) /hpf Microbiology - Last 24 Hours (Table) 01/01/25 01:52 Blood Culture - Preliminary Blood
[2025-01-04 17:05] LABS: Glucose,Whole Blood 80 mg/dL (70-110)
[2025-01-04 20:50] LABS: Glucose,Whole Blood 110 mg/dL (70-110)
[2025-01-05 07:03] LABS: Glucose,Whole Blood 115 mg/dL (70-110)
--- NOTE | 2025-01-05 08:14 | P.PN ---
Subjective Progress Note Date: 01/04/25 Principal diagnosis: Reason for follow-up is UTI Patient is a 59-year-old male with a past medical history significant for end-stage renal disease on dialysis via right arm AV fistula patient still makes urine he did have history of recurrent UTI with the last urine culture done back in his August 2024 did grew into resistant Enterobacter cloacae presented to hospital with significant burning of urine and suprapubic pain positive with concern for symptomatic UTI. On today's evaluation that is 01/04/2025,the patient denies any fever or any chills, patient is breathing comfortably on room air, the patient denies chest pain shortness of breath and no significant cough, patient lower abdominal discomfort has improved no nausea no vomiting. Patient white count is 4.99, creatinine is 4.03-second urine culture negative as well Objective - Vital Signs Vital signs: Vital Signs Temp 98.1 F 01/04/25 18:54 Pulse 66 01/04/25 18:54 Resp 17 01/04/25 18:54 BP 135/64 01/04/25 18:54 Pulse Ox 97 01/04/25 18:54 FiO2 Intake & Output 01/04/25 01/04/25 01/05/25 06:59 18:59 06:59 Intake Total 520 Output Total 500 300 Balance 20 -300 Intake: Oral 520 Output: Urine 500 300 Uretheral (Garcia) 500 Other: Voiding Method Indwelling Catheter Indwelling Catheter Indwelling Catheter # Bowel Movements 1 1 - Exam GENERAL DESCRIPTION: Middle-age male lying in bed in no distress RESPIRATORY SYSTEM: Unlabored breathing , decreased breath sounds at bases HEART: S1 S2 regular rate and rhythm , ABDOMEN: Soft , no tenderness EXTREMITIES: No edema feet - Labs CBC & Chem 7: 01/04/25 07:41 01/04/25 07:41 Labs: Abnormal Lab Results - Last 24 Hours (Table) 01/04/25 01/04/25 01/04/25 Range/Units 06:59 07:41 07:41 RBC 2.95 L (4.40-5.60) 10*6/uL Hgb 9.9 L (13.0-17.0) g/dL Hct 30.0 L (39.6-50.0) % MCV 101.7 H (80.0-97.0) fL MCH 33.6 H (27.0-32.0) pg RDW 16.0 H (11.5-14.5) % Plt Count 111 L (140-440) 10*3/uL MPV 9.1 L (9.5-12.2) fL Lymphocytes # 0.74 L (0.90-5.00) 10*3/uL Sodium 136 L (137-145) mmol/L BUN 28 H (9-20) mg/dL Creatinine 4.03 H (0.66-1.25) mg/dL Glucose 117 H (74-99) mg/dL POC Glucose (mg/dL) 142 H (70-110) mg/dL Calcium 8.1 L (8.4-10.2) mg/dL 01/04/25 Range/Units 12:25 RBC (4.40-5.60) 10*6/uL Hgb (13.0-17.0) g/dL Hct (39.6-50.0) % MCV (80.0-97.0) fL MCH (27.0-32.0) pg RDW (11.5-14.5) % Plt Count (140-440) 10*3/uL MPV (9.5-12.2) fL Lymphocytes # (0.90-5.00) 10*3/uL Sodium (137-145) mmol/L BUN (9-20) mg/dL Creatinine (0.66-1.25) mg/dL Glucose (74-99) mg/dL POC Glucose (mg/dL) 114 H (70-110) mg/dL Calcium (8.4-10.2) mg/dL Microbiology - Last 24 Hours (Table) 01/03/25 13:47 Urine Culture - Final Urine,Voided 01/01/25 01:52 Blood Culture - Preliminary Blood Assessment and Plan (1) UTI (urinary tract infection) Current Visit: Yes Status: Acute Code(s): N39.0 - URINARY TRACT INFECTION, SITE NOT SPECIFIED SNOMED Code(s): 05751690 (2) Failure of outpatient treatment Current Visit: Yes Status: Acute Code(s): Z78.9 - OTHER SPECIFIED HEALTH STATUS SNOMED Code(s): 813215875 Plan: 1patient presented hospital with burning urine suprapubic discomfort and significantly positive UA concerning for symptomatic UTI in this patient who recently did go to a drug-resistant Enterobacter feeling outpatient oral Cipro therapy 2-we will obtain ultrasound of the kidney bladder because of recurrent UTI to mention evidence of any structural abnormality 3-patient did have improvement in his symptoms however urine cultures came back negative, repeat UA is positive however culture remains to be negative patient is currently on day 4 out of 5 of the meropenem therapy Dictation was produced using [employer] dictation software. please excuse any grammatical, word or spelling errors. Time with Patient: Less than 30
--- NOTE | 2025-01-05 11:30 | P.PN ---
Subjective Patient is seen in follow-up for end-stage renal disease. He is maintained on hemodialysis on Thursday schedule. No active complaints. Has chronic Garcia catheter. Tolerating dialysis well. Vital signs are stable. General: No acute distress. HEENT: Head exam is unremarkable. LUNGS: No audible rhonchi or wheezes. HEART: Rate and Rhythm are regular. ABDOMEN: Nontender. EXTREMITITES: No edema. Objective - Vital Signs Vital signs: Vital Signs Temp 97.7 F 01/05/25 07:51 Pulse 66 01/05/25 08:00 Resp 16 01/05/25 08:00 BP 170/75 01/05/25 07:51 Pulse Ox 99 01/05/25 07:51 FiO2 Intake & Output 01/04/25 01/05/25 01/05/25 18:59 06:59 18:59 Output Total 300 650 Balance -300 -650 Output: Urine 300 650 Other: Voiding Method Indwelling Catheter Indwelling Catheter Indwelling Catheter # Bowel Movements 1 - Labs CBC & Chem 7: 01/04/25 07:41 01/04/25 07:41 Labs: Abnormal Lab Results - Last 24 Hours (Table) 01/04/25 01/05/25 Range/Units 12:25 07:01 POC Glucose (mg/dL) 114 H 115 H (70-110) mg/dL Microbiology - Last 24 Hours (Table) 01/03/25 13:47 Urine Culture - Final Urine,Voided 01/01/25 01:52 Blood Culture - Preliminary Blood Assessment and Plan Plan: Assessment: 1. End-stage renal disease maintained on hemodialysis on Thursday schedule. 2. UTI on antibiotics. 3. 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 Follows with urology outpatient. 4. Anemia of chronic kidney disease maintained on Aranesp. 5. Hypertension with chronic kidney disease. Stable. 6. Diabetes mellitus. Plan: Currently seen while undergoing hemodialysis. Antibiotics per ID.
--- NOTE | 2025-01-05 11:44 | P.PN ---
Subjective Progress Note Date: 01/05/25 HISTORY OF PRESENT ILLNESS: This is a 59-year-old male with a previous medical history significant for coronary artery disease status post myocardial infarction back in 2014 and in 2022 status post PCI of the LAD as well as LCx, last stent placed was in 2022, hypertension and hypertensive cardiovascular disease, mixed hyperlipidemia, diabetes mellitus type 2, legally blind, history of ischemic cerebrovascular accident in the past with left-sided weakness, history of recurrent TIA, history of enlarged prostate, history of anxiety and depressive disorder, history of end-stage renal disease on hemodialysis Thursday and Thursday via fistula in the left upper extremity, patient was recently seen in the office for symptoms suggestive of urinary tract infection that is complicated UTI, he was started on ciprofloxacin 500 mg orally once every day and the patient ended up coming back to the emergency department because he was not doing better, he was seen in the emergency department at [facility] today with increased burning sensation and pain in the suprapubic area, his urinalysis was quite positive, last time he was in the hospital his urine culture was positive for enterobacteria clocae that was resistant to a lot of antibiotics including ceftriaxone and he did receive IV antibiotic at that time, in any regard patient was admitted to the hospital for evaluation of failed outpatient treatment of a complicated UTI with multidrug-resistant organism, infectious disease consultation was obtained, Discontinue ceftriaxone start the patient on Fortaz 1 g IV piggyback every 24 hours, he may need to be started on Avycaz 01/02: Patient is laying down in bed in no apparent distress, he continues to have some pain at the tip of the penis, his urine culture came back negative so far, patient was on oral antibiotic in the form of ciprofloxacin prior to the arrival, continue meropenem, continue to follow-up with the patient very closely, patient did have an ultrasound of the abdomen did not show evidence of acute abnormalities, will change his Garcia catheter, and will discuss with infectious disease the plan of action hemodialysis tomorrow morning 01/03: Patient is laying down in bed in no apparent distress, he is getting his hemodialysis, he complained of some suprapubic pain at this time, he continued to have the pain in his penis, his Garcia catheter was changed, urine culture was repeated, left worse: Urine culture was contamination, continue meropenem 1 g piggyback every 24 hours after dialysis, follow-up with the patient very closely 01/04: Patient is laying down in bed in no apparent distress, he did have dialysis yesterday, he is not having fever or chills at this point in time, he seems to be tolerating treatment well, he did have a good bowel movement yesterday, patient also had his Garcia catheter reinserted, infectious disease service recommended to repeat a urine culture from the new Garcia catheter, continue current treatment with meropenem 1 g piggyback every 24 hours, follow- up with the patient very closely, further recommendation is to follow the patient progression and the underwriting consultant recommendation. 01/05: Patient is laying down in bed in no apparent distress, is feeling nauseated today with significant postnasal drip,, he has no pain in the penis, he has been tolerating treatment very well, today would be stay at 5 antibiotic, I will start the patient on Flonase nasal spray 1 puff in each nostril twice every day as well as loratadine 10 mg once every day. Follow-up with the patient very closely. REVIEW OF SYSTEMS: Constitutional: No documented fever, no chills, no night sweats. Significant weight change. Generalized weakness, fatigue or lethargy. No daytime sleepiness. EENT: No headache. Patient is legally blind, positive for loss of vision. No loss of Hearing, no ringing in the ears, no dizziness. No nasal drainage or congestion. No epistaxis. No sore throat. Lungs: No shortness of breath, no cough, no sputum production. No wheezing. Reports dyspnea with activity. Cardiovascular: No chest pain, no lower extremity edema. No palpitations. No paroxysmal nocturnal dyspnea. No orthopnea. No lightheadedness or dizziness. No syncopal episodes. Abdominal: Reports prepubic abdominal pain. Positive for nausea, vomiting. No diarrhea. Positive for constipation. No bloody stool reports loss of appetite. Genitourinary: Positive for dysuria, increased frequency, urgency, Garcia catheter in place. Musculoskeletal: No myalgias. No muscle weakness, no gait dysfunction, no frequent falls. No back pain. No neck pain. Integumentary: No wounds, no lesions. No rash or pruritus. No unusual bruising. No change in hair or nails. Neurologic: No aphasia. No facial droop. No change in mentation. No head injury. No headache. No paralysis. 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 No anxiety. No mood swings. Endocrine: Positive for abnormal blood sugars. Significant weight change. PHYSICAL EXAMINATION: General: 59-year-old male laying down in bed in no apparent distress. HEENT: Head is atraumatic, normocephalic, pupils were equal round reactive to light and recommendation, extraocular muscle movement were intact, sclera nonicteric, conjunctivae were pale, mucous membranes of the mouth are somewhat dry. Neck: Supple, no JVP, normal carotid upstroke bilaterally, no lymphadenopathy. Chest: Decreased breath sounds at the bases, few rhonchi, no expiratory wheezes, no chest wall tenderness, no intercostal retractions. Heart: First heart sound is normal, second heart sounds normal systolic ejection murmur 2/6 located in the left sternal border. Abdomen: Soft, mild tenderness in the epigastric as well as left lower quadrant mildly distended, positive bowel sounds. Extremities: There is no edema no calf tenderness DP +2 bilaterally. Neurologic examination: Patient is awake alert and oriented x3, cranial nerves II-12 appear grossly intact, left-sided weakness that has been chronic. ASSESSMENT AND PLAN: 1. complicated UTI with SIRS due to chronic indwelling Garcia catheterization . continue meropenem 1 g a piggyback every 24 hours, urine culture so far is negative patient was on antibiotic prior to the arrival, Garcia catheter has been changed, patient is on meropenem 1 g IV every 20 home tomorrow morning 2. End-stage renal disease on hemodialysis Thursday and Thursday. Consult nephrology for hemodialysis ordered. 3. Generalized weakness likely related to poor oral intake as well as worsening anemia. Continue treatment as in previous paragraphs. 4. Coronary artery disease status post recent heart catheterization 06/17/2024 that showed stable disease with patent stented arteries of the LAD and LCx. Continue patient on metoprolol ER 50 mg orally once every day, isosorbide m ononitrate 30 mg orally once every day, hydralazine 50 mg orally 3 times every day, atorvastatin 80 mg once every day, ranolazine 500 mg orally twice every day, continue aspirin and Plavix 5. Hypertension and hypertensive cardiovascular disease. Continue patient on metoprolol ER 50 mg once every day, hydralazine 50 mg orally 3 times every day, losartan 25 mg once every day. 6. Mixed hyperlipidemia. Continue patient on atorvastatin 80 mg once every day, monitor the patient lipid panel, keep LDL 55 7. PAD. Stable at this time. Continue atorvastatin for secondary prevention. 8. Diabetes mellitus type 2 . Continue patient on Levemir 17 units at bedtime along with 9 units before each meal 3 times every day, monitor the patient blood sugar before each meal and bedtime. 9. History of CVA in the past with left-sided weakness and recurrent TIA. Continue patient on atorvastatin 80 mg once every day, continue patient on Plavix 75 mg once every day as well as aspirin 80 mg every day. 10. Enlarged prostate with urinary retention. Continue Flomax 0.4 mg orally twice every day. 11. History of gout. Continue patient on allopurinol 100 mg once every day. 12. History of anxiety and depressive disorder. Continue citalopram 60 mg orally once every day. 13. Anemia multifactorial monitor the patient hemoglobin very closely, transfuse for hemoglobin less than 7. 14. button station worker consultation for discharge planning. 15. Home tomorrow morning for Objective - Vital Signs Vital signs: Vital Signs Temp 97.7 F 01/05/25 07:51 Pulse 66 01/05/25 07:51 Resp 16 01/05/25 07:51 BP 170/75 01/05/25 07:51 Pulse Ox 99 01/05/25 07:51 FiO2 Intake & Output 01/04/25 01/05/25 01/05/25 18:59 06:59 18:59 Output Total 300 650 Balance -300 -650 Output: Urine 300 650 Other: Voiding Method Indwelling Catheter Indwelling Catheter # Bowel Movements 1 - Labs CBC & Chem 7: 01/04/25 07:41 01/04/25 07:41 Labs: Abnormal Lab Results - Last 24 Hours (Table) 01/04/25 01/05/25 Range/Units 12:25 07:01 POC Glucose (mg/dL) 114 H 115 H (70-110) mg/dL Microbiology - Last 24 Hours (Table) 01/03/25 13:47 Urine Culture - Final Urine,Voided 01/01/25 01:52 Blood Culture - Preliminary Blood
[2025-01-05 12:10] LABS: Glucose,Whole Blood 97 mg/dL (70-110)
[2025-01-05 12:58] VITALS: BMI 28.7
[2025-01-05] MEDS: LORATADINE 10 MG TAB PO SCH (13:18)
--- NOTE | 2025-01-05 14:14 | P.PN ---
Subjective Progress Note Date: 01/05/25 Principal diagnosis: Reason for follow-up is UTI Patient is a 59-year-old male with a past medical history significant for end-stage renal disease on dialysis via right arm AV fistula patient still makes urine he did have history of recurrent UTI with the last urine culture done back in his August 2024 did grew into resistant Enterobacter cloacae presented to hospital with significant burning of urine and suprapubic pain positive with concern for symptomatic UTI. On today's evaluation that is 01/05/2025,the patient remains to be afebrile, patient is on room air not requiring supplemental oxygen and mentioned breathing comfortably with no chest pain or cough.Patient denies having any nausea or vomiting, no abdominal pain however has been complaining of diarrhea. No new lab has been obtained today urine culture have been negative Objective - Vital Signs Vital signs: Vital Signs Temp 97.8 F 01/05/25 14:06 Pulse 64 01/05/25 14:06 Resp 19 01/05/25 14:06 BP 169/87 01/05/25 14:06 Pulse Ox 98 01/05/25 13:01 FiO2 Intake & Output 01/04/25 01/05/25 01/05/25 18:59 06:59 18:59 Intake Total 400 Output Total 155 163 1328 Balance -300 -650 -4000 Weight 88.224 kg Intake: Hemodialysis 400 Output: Urine 300 650 Hemodialysis 2400 Hemodialysis Net Amount 2000 Other: Voiding Method Indwelling Catheter Indwelling Catheter Indwelling Catheter # Bowel Movements 1 1 - Exam GENERAL DESCRIPTION: Middle-age male lying in bed in no distress RESPIRATORY SYSTEM: Unlabored breathing , decreased breath sounds at bases HEART: S1 S2 regular rate and rhythm , ABDOMEN: Soft , no tenderness EXTREMITIES: No edema feet - Labs CBC & Chem 7: 01/04/25 07:41 01/04/25 07:41 Labs: Abnormal Lab Results - Last 24 Hours (Table) 01/05/25 Range/Units 07:01 POC Glucose (mg/dL) 115 H (70-110) mg/dL Microbiology - Last 24 Hours (Table) 01/03/25 13:47 Urine Culture - Final Urine,Voided 01/01/25 01:52 Blood Culture - Preliminary Blood Assessment and Plan (1) UTI (urinary tract infection) Current Visit: Yes Status: Acute Code(s): N39.0 - URINARY TRACT INFECTION, SITE NOT SPECIFIED SNOMED Code(s): 86355570 (2) Failure of outpatient treatment Current Visit: Yes Status: Acute Code(s): Z78.9 - OTHER SPECIFIED HEALTH STATUS SNOMED Code(s): 482385136 (3) Diarrhea Current Visit: Yes Status: Acute Code(s): R19.7 - DIARRHEA, UNSPECIFIED SNOMED Code(s): 61087011 Plan: 1patient presented hospital with burning urine suprapubic discomfort and significantly positive UA concerning for symptomatic UTI in this patient who recently did go to a drug-resistant Enterobacter feeling outpatient oral Cipro therapy 2-we will obtain ultrasound of the kidney bladder because of recurrent UTI to mention evidence of any structural abnormality 3-patient did have improvement in his symptoms however urine cultures came back negative, repeat UA is positive patient to finish his treatment with meropenem today and will be discontinued after today's dose 4diarrhea possible antibiotic associated check stool for C. difficile treat if positive add Questran for symptomatic relief Dictation was produced using [employer] dictation software. please excuse any grammatical, word or spelling errors. Time with Patient: Less than 30
[2025-01-05] MEDS ORDERED: ZINC OXIDE PASTE (Z-GUARD) 1 APPLIC TOPICAL PRN (14:31)
[2025-01-05] MEDS: CHOLESTYRAMINE RESIN 4 GM PACKET PO SCH (15:32)
[2025-01-05 17:18] LABS: Glucose,Whole Blood 184 mg/dL (70-110)
[2025-01-05 20:03] LABS: Glucose,Whole Blood 131 mg/dL (70-110)
[2025-01-05] MEDS: FLUTICASONE NASAL 50MCG/SPRAY 16GM BTL EA NOSTRIL SCH (20:18)
[2025-01-06 07:10] LABS: Glucose,Whole Blood 108 mg/dL (70-110)
--- NOTE | 2025-01-06 09:30 | P.DS ---
Providers Date of admission: 01/01/25 02:59 Expected date of discharge: 01/06/25 Attending physician: Diana Broderick Consults: 01/01/25 10:02 Consult Physician Routine Consulting Provider: Lauren Angel Consult Reason/Comments: Complicated UTI Do you want consulting provider notified?: Yes 01/01/25 10:03 Consult Physician Routine Consulting Provider: Jeff Zheng Consult Reason/Comments: HD Do you want consulting provider notified?: Yes Primary care physician: Diana Broderick Hospital Course: HISTORY OF PRESENT ILLNESS: This is a 59-year-old male with a previous medical history significant for coronary artery disease status post myocardial infarction back in 2014 and in 2022 status post PCI of the LAD as well as LCx, last stent placed was in 2022, hypertension and hypertensive cardiovascular disease, mixed hyperlipidemia, diabetes mellitus type 2, legally blind, history of ischemic cerebrovascular accident in the past with left-sided weakness, history of rec urrent TIA, history of enlarged prostate, history of anxiety and depressive disorder, history of end-stage renal disease on hemodialysis Thursday and Thursday via fistula in the left upper extremity, patient was recently seen in the office for symptoms suggestive of urinary tract infection that is complicated UTI, he was started on ciprofloxacin 500 mg orally once every day and the patient ended up coming back to the emergency department because he was not doing better, he was seen in the emergency department at [facility] today with increased burning sensation and pain in the suprapubic area, his urinalysis was quite positive, last time he was in the hospital his urine culture was positive for enterobacteria clocae that was resistant to a lot of antibiotics including ceftriaxone and he did receive IV antibiotic at that time, in any regard patient was admitted to the hospital for evaluation of failed outpatient treatment of a complicated UTI with multidrug-resistant organism, infectious disease consultation was obtained, Discontinue ceftriaxone start the patient on Fortaz 1 g IV piggyback every 24 hours, he may need to be started on Avycaz 01/02: Patient is laying down in bed in no apparent distress, he continues to have some pain at the tip of the penis, his urine culture came back negative so far, patient was on oral antibiotic in the form of ciprofloxacin prior to the arrival, continue meropenem, continue to follow-up with the patient very closely, patient did have an ultrasound of the abdomen did not show evidence of acute abnormalities, will change his Garcia catheter, and will discuss with infectious disease the plan of action hemodialysis tomorrow morning 01/03: Patient is laying down in bed in no apparent distress, he is getting his hemodialysis, he complained of some suprapubic pain at this time, he continued to have the pain in his penis, his Garcia catheter was changed, urine culture was repeated, left worse: Urine culture was contamination, continue meropenem 1 g piggyback every 24 hours after dialysis, follow-up with the patient very closely 01/04: Patient is laying down in bed in no apparent distress, he did have dialysis yesterday, he is not having fever or chills at this point in time, he seems to be tolerating treatment well, he did have a good bowel movement yesterday, patient also had his Garcia catheter reinserted, infectious disease service recommended to repeat a urine culture from the new Garcia catheter, continue current treatment with meropenem 1 g piggyback every 24 hours, follow- up with the patient very closely, further recommendation is to follow the patient progression and the managed security sales consultant recommendation. 01/05: Patient is laying down in bed in no apparent distress, is feeling nauseated today with significant postnasal drip,, he has no pain in the penis, he has been tolerating treatment very well, today would be stay at 5 antibiotic, I will start the patient on Flonase nasal spray 1 puff in each nostril twice every day as well as loratadine 10 mg once every day. Follow-up with the patient very closely. 01/06: Patient has been seen and followed by infectious disease. He has been treated with meropenem and plan is that he completed his course of IV antibiotic yesterday. ID has determined the patient does not require oral antibiotics following this. Patient has been afebrile, heart rate in the 60s and 70s, blood pressure has been elevated up to 217/100. Hydralazine will be increased. If blood pressure is better this afternoon we will plan on discharge home today. DISCHARGE DIAGNOSES: 1. complicated UTI with SIRS due to chronic indwelling Garcia catheterization . 2. End-stage renal disease on hemodialysis Thursday and Thursday. 3. Generalized weakness likely related to poor oral intake as well as worsening anemia. 4. Coronary artery disease status post recent heart catheterization 06/17/2024 that showed stable disease with patent stented arteries of the LAD and LCx. 5. Hypertension and hypertensive cardiovascular disease. 6. Mixed hyperlipidemia. 7. PAD. Stable at this time. 8. Diabetes mellitus type 2 . 9. History of CVA in the past with left-sided weakness and recurrent TIA. 10. Enlarged prostate with urinary retention. 11. History of gout. 12. History of anxiety and depressive disorder. 13. Anemia multifactorial Greater than 35 minutes was utilized and coordinating patient's discharge. Impression and plan of care have been directed as dictated by the signing physician. Cee Hughes nurse practitioner acting as scribe for signing physician. Patient Condition at Discharge: Fair Plan - Discharge Summary New Discharge Prescriptions: New Loratadine [Claritin] 10 mg PO DAILY tab Fluticasone Nasal Gideon [Flonase Nasal Gideon] 1 spray EA NOSTRIL BID #0 ml Cholestyramine Resin [Questran Packet] 4 gm PO BID@1000,1800 #60 packet Continue Tamsulosin [Flomax] 0.4 mg PO BID Citalopram Hydrobromide [CeleXA] 20 mg PO DAILY allopurinoL [Zyloprim] 100 mg PO DAILY Atorvastatin [Lipitor] 80 mg PO HS Furosemide [Lasix] 80 mg PO DAILY Nitroglycerin Sl Tabs [Nitrostat] 0.4 mg SL Q5M PRN PRN Reason: Chest Pain Isosorbide Mononitrate ER [Imdur] 30 mg PO DAILY #90 tab Insulin Glargine,Hum.rec.anlog [Lantus Solostar Pen] 17 units SQ HS Insulin Lispro [humaLOG Kwikpen] 9 unit SQ AC-TID cycloSPORINE 0.05% OPHTH SOLN [Restasis] 1 applicator BOTH EYES BID Metoprolol Succinate (ER) [Toprol XL] 50 mg PO DAILY Losartan [Cozaar] 25 mg PO DAILY Ranolazine [Ranexa] 500 mg PO Q12HR #60 tab hydrALAZINE HCL [Apresoline] 50 mg PO TID Clopidogrel [Plavix] 75 mg PO DAILY Linaclotide [Linzess] 72 mcg PO DAILY Discharge Medication List Tamsulosin [Flomax] 0.4 mg PO BID 11/05/17 [History] Citalopram Hydrobromide [CeleXA] 20 mg PO DAILY 12/12/18 [History] allopurinoL [Zyloprim] 100 mg PO DAILY 04/05/19 [History] Atorvastatin [Lipitor] 80 mg PO HS 12/30/19 [History] Losartan [Cozaar] 25 mg PO DAILY 09/19/23 [History] Metoprolol Succinate (ER) [Toprol XL] 50 mg PO DAILY 09/19/23 [History] Ranolazine [Ranexa] 500 mg PO Q12HR #60 tab 09/21/23 [Rx] Furosemide [Lasix] 80 mg PO DAILY 10/16/23 [History] Nitroglycerin Sl Tabs [Nitrostat] 0.4 mg SL Q5M PRN 10/16/23 [History] hydrALAZINE HCL [Apresoline] 50 mg PO TID 04/12/24 [History] Clopidogrel [Plavix] 75 mg PO DAILY 06/16/24 [History] Isosorbide Mononitrate ER [Imdur] 30 mg PO DAILY #90 tab 07/01/24 [Rx] Insulin Glargine,Hum.rec.anlog [Lantus Solostar Pen] 17 units SQ HS 07/12/24 [History] Insulin Lispro [humaLOG Kwikpen] 9 unit SQ AC-TID 07/12/24 [History] cycloSPORINE 0.05% OPHTH SOLN [Restasis] 1 applicator BOTH EYES BID 10/31/24 [History] Linaclotide [Linzess] 72 mcg PO DAILY 01/01/25 [History] Cholestyramine Resin [Questran Packet] 4 gm PO BID@1000,1800 #60 packet 01/06/25 [Rx] Fluticasone Nasal Gideon [Flonase Nasal Gideon] 1 spray EA NOSTRIL BID #0 ml 01/06/25 [Rx] Loratadine [Claritin] 10 mg PO DAILY tab 01/06/25 [Rx] Follow up Appointment(s)/Referral(s): Diana Broderick MD [Primary Care Provider] - 1 Week Lauren Angel MD [STAFF PHYSICIAN] - 1 Week Discharge Disposition: HOME WITH HOME HEALTH SERVICES
--- NOTE | 2025-01-06 10:36 | XR ---
EXAMINATION TYPE: XR abdomen 2V DATE OF EXAM: 01/06/2025 10:28 AM COMPARISON: 08/23/2024 CLINICAL INDICATION: Male, 59 years old with history of abd pain; [facility] TECHNIQUE: Two views of the abdomen were obtained. FINDINGS: Moderate amount stool throughout the colon. The bowel gas pattern is nonspecific without d ilated loops of small or large bowel. . Fecal material and gas are demonstrated throughout the colon and rectum. There is no evidence for organomegaly or pneumoperitoneum. No acute osseous process. No abnormal calcifications are present. Calcified vas deferens bilaterally. IMPRESSION: Nonspecific bowel gas pattern without radiographic evidence for acute process. [facility], , 01/06/2025 10:34 AM
--- NOTE | 2025-01-06 10:59 | P.PN ---
Subjective Patient is seen in follow-up for end-stage renal disease. He is maintained on hemodialysis on Thursday schedule. No active complaints. Has chronic Garcia catheter. No problems with dialysis yesterday. Vital signs are stable. General: No acute distress. HEENT: Head exam is unremarkable. LUNGS: No audible rhonchi or wheezes. HEART: Rate and Rhythm are regular. ABDOMEN: Nontender. EXTREMITITES: No edema. Objective - Vital Signs Vital signs: Vital Signs Temp 98.1 F 01/06/25 06:59 Pulse 72 01/06/25 06:59 Resp 16 01/06/25 06:59 BP 165/81 01/06/25 09:13 Pulse Ox 100 01/06/25 06:59 FiO2 Intake & Output 01/05/25 01/06/25 01/06/25 18:59 06:59 18:59 Intake Total 400 Output Total 4400 550 Balance -4000 -550 Weight 88.224 kg Intake: Hemodialysis 400 Output: Urine 550 Uretheral (Garcia) 250 Hemodialysis 2400 Hemodialysis Net Amount 1999 Other: Voiding Method Indwelling Catheter Indwelling Catheter Indwelling Catheter # Bowel Movements 1 - Labs CBC & Chem 7: 01/04/25 07:41 01/04/25 07:41 Labs: Abnormal Lab Results - Last 24 Hours (Table) 01/05/25 01/05/25 Range/Units 17:17 20:02 POC Glucose (mg/dL) 184 H 131 H (70-110) mg/dL Assessment and Plan Plan: Assessment: 1. End-stage renal disease maintained on hemodialysis on Thursday schedule. 2. UTI on antibiotics. 3. 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 Follows with urology outpatient. 4. Anemia of chronic kidney disease maintained on Aranesp. 5. Hypertension with chronic kidney disease. Hydralazine dose increased. 6. Diabetes mellitus. Plan: Hemodialysis tomorrow. Antibiotics per ID.
[2025-01-06 12:08] LABS: Glucose,Whole Blood 81 mg/dL (70-110)
[2025-01-06] MEDS ORDERED: LOPERAMIDE 2 MG CAP PO PRN (12:54)
[2025-01-06] MEDS: LOPERAMIDE 2 MG CAP PO STA (13:03)
[2025-01-06] MEDS: LOSARTAN 25 MG TAB PO STA (13:03)
[2025-01-06] MEDS ORDERED: IOPAMIDOL CONTRAST (ORAL USE) VIAL PO PRN (13:38)
[2025-01-06] MEDS: BARIUM SULFATE 2% - 450 ML ORAL.SUSP BOTTLE PO PRN (14:22)
[2025-01-06] MEDS: ONDANSETRON 4 MG/2 ML VIAL IVP STA (14:23)
[2025-01-06] MEDS: diphenhydrAMINE 50 MG/ML 1 ML VIAL IVP ONE (14:38)
[2025-01-06] MEDS: FAMOTIDINE 20 MG/2 ML VIAL IV ONE (14:39)
[2025-01-06] MEDS: methylPREDNISolone SOD SUCCI 125 MG/2 ML VIAL IV ONE (14:39)
--- NOTE | 2025-01-06 15:15 | P.PN ---
Subjective Progress Note Date: 01/06/25 HISTORY OF PRESENT ILLNESS: This is a 59-year-old male with a previous medical history significant for coronary artery disease status post myocardial infarction back in 2014 and in 2022 status post PCI of the LAD as well as LCx, last stent placed was in 2022, hypertension and hypertensive cardiovascular disease, mixed hyperlipidemia, diabetes mellitus type 2, legally blind, history of ischemic cerebrovascular accident in the past with left-sided weakness, history of recurrent TIA, history of enlarged prostate, history of anxiety and depressive disorder, history of end-stage renal disease on hemodialysis Thursday and Thursday via fistula in the left upper extremity, patient was recently seen in the office for symptoms suggestive of urinary tract infection that is complicated UTI, he was started on ciprofloxacin 500 mg orally once every day and the patient ended up coming back to the emergency department because he was not doing better, he was seen in the emergency department at [facility] today with increased burning sensation and pain in the suprapubic area, his urinalysis was quite positive, last time he was in the hospital his urine culture was positive for enterobacteria clocae that was resistant to a lot of antibiotics including ceftriaxone and he did receive IV antibiotic at that time, in any regard patient was admitted to the hospital for evaluation of failed outpatient treatment of a complicated UTI with multidrug-resistant organism, infectious disease consultation was obtained, Discontinue ceftriaxone start the patient on Fortaz 1 g IV piggyback every 24 hours, he may need to be started on Avycaz 01/02: Patient is laying down in bed in no apparent distress, he continues to have some pain at the tip of the penis, his urine culture came back negative so far, patient was on oral antibiotic in the form of ciprofloxacin prior to the arrival, continue meropenem, continue to follow-up with the patient very closely, patient did have an ultrasound of the abdomen did not show evidence of acute abnormalities, will change his Garcia catheter, and will discuss with infectious disease the plan of action hemodialysis tomorrow morning 01/03: Patient is laying down in bed in no apparent distress, he is getting his hemodialysis, he complained of some suprapubic pain at this time, he continued to have the pain in his penis, his Garcia catheter was changed, urine culture was repeated, left worse: Urine culture was contamination, continue meropenem 1 g piggyback every 24 hours after dialysis, follow-up with the patient very closely 01/04: Patient is laying down in bed in no apparent distress, he did have dialysis yesterday, he is not having fever or chills at this point in time, he seems to be tolerating treatment well, he did have a good bowel movement yesterday, patient also had his Garcia catheter reinserted, infectious disease service recommended to repeat a urine culture from the new Garcia catheter, continue current treatment with meropenem 1 g piggyback every 24 hours, follow- up with the patient very closely, further recommendation is to follow the patient progression and the loans consultant recommendation. 01/05: Patient is laying down in bed in no apparent distress, is feeling nauseated today with significant postnasal drip,, he has no pain in the penis, he has been tolerating treatment very well, today would be stay at 5 antibiotic, I will start the patient on Flonase nasal spray 1 puff in each nostril twice every day as well as loratadine 10 mg once every day. Follow-up with the patient very closely. 01/06: Patient continues to be somewhat nauseated, he is not able to keep anything down, he did not have any breakfast today, he did have diarrhea, abdominal x-ray was done, and that showed evidence of fecal material throughout the colon, patient will be sent for a CT scan of the abdomen pelvis with oral contrast, I will start the patient on Dulcolax suppository 10 mg x 1, patient will really stay in the hospital since he is not able to keep anything down and he has diabetes, therefore we will cancel discharge, and keep the patient in the hospital for another 24 hours, pending the result of the CT scan of the abdomen and pelvis, hopefully he will be able to discharge home tomorrow morning. REVIEW OF SYSTEMS: Constitutional: No documented fever, no chills, no night sweats. Significant weight change. Generalized weakness, fatigue or lethargy. No daytime sleepiness. EENT: No headache. Patient is legally blind, positive for loss of vision. No loss of Hearing, no ringing in the ears, no dizziness. No nasal drainage or congestion. No epistaxis. No sore throat. Lungs: No shortness of breath, occasional cough, no sputum production. No wheezing. Reports dyspnea with activity. Cardiovascular: No chest pain, no lower extremity edema. No palpitations. No paroxysmal nocturnal dyspnea. No orthopnea. No lightheadedness or dizziness. No syncopal episodes. Abdominal: Reports prepubic abdominal pain. Positive for nausea, positive for vomiting. No diarrhea. Positive for constipation. No bloody stool reports loss of appetite. Genitourinary: Positive for dysuria, increased frequency, urgency, Garcia catheter in place. Musculoskeletal: No myalgias. No muscle weakness, no gait dysfunction, no frequent falls. No back pain. No neck pain. Integumentary: No wounds, no lesions. No rash or pruritus. No unusual bruising. No change in hair or nails. Neurologic: No aphasia. No facial droop. No change in mentation. No head injury. No headache. No paralysis. Positive for paresthesia due to diabetic polyneuropathy Psychiatric: Positive for depression. No anxiety. No mood swings. Endocrine: Positive for abnormal blood sugars. Significant weight change. PHYSICAL EXAMINATION: General: 59-year-old male laying down in bed in no apparent distress. HEENT: Head is atraumatic, normocephalic, pupils were equal round reactive to light and recommendation, extraocular muscle movement were intact, sclera nonicteric, conjunctivae were pale, mucous membranes of the mouth are somewhat dry. Neck: Supple, no JVP, normal carotid upstroke bilaterally, no lymphadenopathy. Chest: Decreased breath sounds at the bases, few rhonchi, no expiratory wheezes, no chest wall tenderness, no intercostal retractions. Heart: First heart sound is normal, second heart sounds normal systolic ejection murmur 2/6 located in the left sternal border. Abdomen: Soft, mild tenderness in the epigastric as well as left lower quadrant mildly distended, positive bowel sounds. Extremities: There is no edema no calf tenderness DP +2 bilaterally. Neurologic examination: Patient is awake alert and oriented x3, cranial nerves II-12 appear grossly intact, left-sided weakness that has been chronic. ASSESSMENT AND PLAN: 1. complicated UTI with SIRS due to chronic indwelling Garcia catheterization . Patient was treated with 5-day course of meropenem 1 g IV piggyback every 24 hours, monitor the patient symptoms very closely. Likely the patient will be discharged home in the next 24 hours. 2. Intractable nausea and vomiting likely combination of IV antibiotic as well as fecal stasis. Despite the fact that the patient is having some diarrhea, the patient is having issues with constipation, I will give the patient Dulcolax suppository 10 mg x 1, continue with Linzess, continue to monitor the patient very closely, I will obtain CT scan of the abdomen and pelvis with oral contrast only and reevaluate the patient in the next 24 hours. 2. End-stage renal disease on hemodialysis Thursday and Thursday. We will continue with current treatment plan. 3. Generalized weakness likely related to poor oral intake as well as worsening anemia. Continue treatment as in previous paragraphs. 4. Coronary artery disease status post recent heart catheterization 06/17/2024 that showed stable disease with patent stented arteries of the LAD and LCx. Continue patient on metoprolol ER 50 mg orally once every day, isosorbide mononitrate 30 mg orally once every day, hydralazine 50 mg orally 3 times every day, atorvastatin 80 mg once every day, ranolazine 500 mg orally twice every day, continue aspirin and Plavix 5. Hypertension and hypertensive cardiovascular disease. Continue patient on metoprolol ER 50 mg once every day, increase hydralazine 100 mg orally 3 times every day, losartan 25 mg once every day. 6. Mixed hyperlipidemia. Continue patient on atorvastatin 80 mg once every day, monitor the patient lipid panel, keep LDL 55 7. PAD. Stable at this time. Continue atorvastatin for secondary prevention. 8. Diabetes mellitus type 2 . Continue patient on Levemir 17 units at bedtime along with 9 units before each meal 3 times every day, monitor the patient blood sugar before each meal and bedtime. 9. History of CVA in the past with left-sided weakness and recurrent TIA. Continue patient on atorvastatin 80 mg once every day, continue patient on Plavix 75 mg once every day as well as aspirin 80 mg every day. 10. Enlarged prostate with urinary retention. Continue Flomax 0.4 mg orally twice every day. 11. History of gout. Continue patient on allopurinol 100 mg once every day. 12. History of anxiety and depressive disorder. Continue citalopram 60 mg orally once every day. 13. Anemia multifactorial monitor the patient hemoglobin very closely, transfuse for hemoglobin less than 7. 14. Likely home tomorrow morning pending the result of the CT scan of the abdomen and pelvis today. Objective - Vital Signs Vital signs: Vital Signs Temp 97.8 F 01/06/25 11:37 Pulse 64 01/06/25 11:37 Resp 16 01/06/25 11:37 BP 173/75 01/06/25 11:37 Pulse Ox 100 01/06/25 11:37 FiO2 Intake & Output 01/05/25 01/06/25 01/06/25 18:59 06:59 18:59 Intake Total 400 Output Total 4400 550 Balance -4000 -550 Weight 88.224 kg Intake: Hemodialysis 400 Output: Urine 550 Uretheral (Garcia) 250 Hemodialysis 2400 Hemodialysis Net Amount 2000 Other: Voiding Method Indwelling Catheter Indwelling Catheter Indwelling Catheter # Bowel Movements 1 - Labs CBC & Chem 7: 01/04/25 07:41 01/04/25 07:41 Labs: Abnormal Lab Results - Last 24 Hours (Table) 01/05/25 01/05/25 Range/Units 17:17 20:02 POC Glucose (mg/dL) 184 H 131 H (70-110) mg/dL Microbiology - Last 24 Hours (Table) 01/01/25 01:52 Blood Culture - Final Blood
--- NOTE | 2025-01-06 15:41 | P.PN ---
Subjective Progress Note Date: 01/06/25 Principal diagnosis: Reason for follow-up is UTI Patient is a 59-year-old male with a past medical history significant for end-stage renal disease on dialysis via right arm AV fistula patient still makes urine he did have history of recurrent UTI with the last urine culture done back in his August 2024 did grew into resistant Enterobacter cloacae presented to hospital with significant burning of urine and suprapubic pain positive with concern for symptomatic UTI. On today's evaluation that is 01/06/2025, the patient continues to be afebrile, the patient is on room air and breathing comfortably, the Pt denies having any chest pain or cough, the patient mention improvement in the lower abdominal discomfort still having some diarrhea. No new lab has been obtained today stool for C. difficile is negative Objective - Vital Signs Vital signs: Vital Signs Temp 98.1 F 01/06/25 06:59 Pulse 72 01/06/25 06:59 Resp 16 01/06/25 06:59 BP 165/81 01/06/25 09:13 Pulse Ox 100 01/06/25 06:59 FiO2 Intake & Output 01/05/25 01/06/25 01/06/25 18:59 06:59 18:59 Intake Total 400 Output Total 4400 550 Balance -4000 -550 Weight 88.224 kg Intake: Hemodialysis 400 Output: Urine 550 Uretheral (Garcia) 250 Hemodialysis 2400 Hemodialysis Net Amount 2000 Other: Voiding Method Indwelling Catheter Indwelling Catheter Indwelling Catheter # Bowel Movements 1 - Exam GENERAL DESCRIPTION: Middle-age male lying in bed in no distress RESPIRATORY SYSTEM: Unlabored breathing , decreased breath sounds at bases HEART: S1 S2 regular rate and rhythm , ABDOMEN: Soft , no tenderness EXTREMITIES: No edema feet - Labs CBC & Chem 7: 01/04/25 07:41 01/04/25 07:41 Labs: Abnormal Lab Results - Last 24 Hours (Table) 01/05/25 01/05/25 Range/Units 17:17 20:02 POC Glucose (mg/dL) 184 H 131 H (70-110) mg/dL Assessment and Plan (1) UTI (urinary tract infection) Current Visit: Yes Status: Acute Code(s): N39.0 - URINARY TRACT INFECTION, SITE NOT SPECIFIED SNOMED Code(s): 03290225 (2) Failure of outpatient treatment Current Visit: Yes Status: Acute Code(s): Z78.9 - OTHER SPECIFIED HEALTH STATUS SNOMED Code(s): 030518337 (3) Diarrhea Current Visit: Yes Status: Acute Code(s): R19.7 - DIARRHEA, UNSPECIFIED SNOMED Code(s): 72802797 Plan: 1patient presented hospital with burning urine suprapubic discomfort and significantly positive UA concerning for symptomatic UTI in this patient who recently did go to a drug-resistant Enterobacter feeling outpatient oral Cipro therapy 2-we will obtain ultrasound of the kidney bladder because of recurrent UTI to mention evidence of any structural abnormality 3-patient did have improvement in his urinary symptoms however urine cultures came back negative, repeat UA is positive patient received adequate meropenem while inpatient would not need any IV biotic on discharge 4diarrhea possible antibiotic associated stool for C. difficile negative continue with the Questran for symptomatic relief Dictation was produced using [employer] dictation software. please excuse any grammatical, word or spelling errors.
[2025-01-06 17:12] LABS: Glucose,Whole Blood 94 mg/dL (70-110)
--- NOTE | 2025-01-06 18:36 | CT ---
EXAMINATION TYPE: CT abdomen pelvis wo con DATE OF EXAM: 01/06/2025 6:16 PM COMPARISON: CT abdomen pelvis most recent from 08/24/2024 CLINICAL INDICATION: Male, 59 years old with history of diarrhea and abd pain; Diarrhea and abdominal pain TECHNIQUE: Axial CT abdomen pelvis wo con;Sagittal and coronal reformats were created on a separate workstation. Contrast used: mL of , (none if empty) Oral contrast used: with Oral Contrast (none if empty) CT DLP: 941.1 mGycm, Automated exposure control for dose reduction was used. FINDINGS: LOWER CHEST: Moderate hiatal hernia. ABDOMEN LIVER: Unremarkable GALLBLADDER AND BILE DUCTS: The gallbladder is surgically absent. PANCREAS: Unremarkable. SPLEEN: Unremarkable. ADRENAL GLANDS: Unremarkable. KIDNEYS AND URETERS: No evidence of hydronephrosis or obstructing renal calculus. The ureters are unr emarkable. PELVIS BLADDER: Nondistended with Garcia catheter in place. REPRODUCTIVE: Unremarkable. ABDOMEN & PELVIS STOMACH AND BOWEL: No evidence of bowel obstruction. Rectal wall thickening somewhat eccentric. The a ppendix is normal. PERITONEUM/RETROPERITONEUM: No evidence of pneumoperitoneum or free fluid. VASCULATURE: No evidence of aortic aneurysm. MUSCULOSKELETAL: No acute osseous abnormalities LYMPH NODES: No gross evidence for lymphadenopathy. SOFT TISSUE/ABDOMINAL WALL: Fat-containing umbilical hernia. Fat-containing inguinal hernias left gre ater than right. IMPRESSION: 1. Extensive circumferential wall thickening of the rectum which is new from 08/24/2024. Correlate for proctitis. Consider direct visualization to rule out developing adenocarcinoma. 2. Moderate hiatal hernia. 3. Bilateral fat-containing inguinal hernias. 4. Garcia catheter in place with fluid in the urinary bladder correlate for Garcia catheter malfunctio n. [facility], , 01/06/2025 6:34 PM
[2025-01-06 20:11] LABS: Glucose,Whole Blood 96 mg/dL (70-110)
[2025-01-07 07:06] LABS: Glucose,Whole Blood 133 mg/dL (70-110)
[2025-01-07] MEDS: METOCLOPRAMIDE 5 MG/ML 2 ML VIAL IVP PRN (09:46)
[2025-01-07] MEDS: LOSARTAN 50 MG TAB PO SCH (10:45)
--- NOTE | 2025-01-07 11:50 | P.PN ---
Subjective Patient is seen for follow-up for end-stage renal disease. Currently seen on hemodialysis. No significant complaints today Overall feeling better. Objective - Vital Signs Vital signs: Vital Signs Temp 98.5 F 01/07/25 06:47 Pulse 75 01/07/25 08:00 Resp 17 01/07/25 08:00 BP 146/84 01/07/25 09:49 Pulse Ox 98 01/07/25 06:47 FiO2 Intake & Output 01/06/25 01/07/25 01/07/25 18:59 06:59 18:59 Intake Total 1320 240 Output Total 400 300 Balance 920 -60 Intake: Oral 1320 240 Output: Urine 400 300 Other: Voiding Method Indwelling Catheter Indwelling Catheter Indwelling Catheter # Bowel Movements 1 1 - Exam Patient is awake, comfortable, no acute distress Examination of the heart S1 and S2 Examination of the lungs bilateral breath sounds are heard Abdomen is soft nontender Examination of lower extremities shows no evidence of edema [employer]LEMENT[employer]OR exam grossly intact. - Labs CBC & Chem 7: 01/04/25 07:41 01/04/25 07:41 Labs: Abnormal Lab Results - Last 24 Hours (Table) 01/07/25 Range/Units 06:50 POC Glucose (mg/dL) 133 H (70-110) mg/dL Microbiology - Last 24 Hours (Table) 01/01/25 01:52 Blood Culture - Final Blood Assessment and Plan Assessment: 1. End-stage renal disease maintained on hemodialysis on Thursday schedule. 2. UTI on antibiotics. 3. 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 Follows with urology outpatient. 4. Anemia of chronic kidney disease maintained on Aranesp. 5. Hypertension with chronic kidney disease. Hydralazine dose increased. 6. Diabetes mellitus. Plan: Stable for discharge from nephrology standpoint Continue with antibiotics as per ID.
[2025-01-07 11:53] LABS: Glucose,Whole Blood 208 mg/dL (70-110)
--- NOTE | 2025-01-07 14:33 | P.PN ---
Subjective Progress Note Date: 01/07/25 Principal diagnosis: Reason for follow-up is UTI Patient is a 59-year-old male with a past medical history significant for end-stage renal disease on dialysis via right arm AV fistula patient still makes urine he did have history of recurrent UTI with the last urine culture done back in his August 2024 did grew into resistant Enterobacter cloacae presented to hospital with significant burning of urine and suprapubic pain positive with concern for symptomatic UTI. On today's evaluation that is 01/08/2024, patient did have a temperature of 99.2 F this morning and denies having any chills, patient is on room air and breathing comfortably no chest pain or cough, the patient is complaining of nausea lower abdominal discomfort and diarrhea slightly decreased in intensity. No new labs has been obtained today stool for C. difficile was negative blood urine culture have been negative Objective - Vital Signs Vital signs: Vital Signs Temp 99.2 F 01/07/25 11:48 Pulse 80 01/07/25 11:48 Resp 16 01/07/25 11:48 BP 125/66 01/07/25 11:48 Pulse Ox 99 01/07/25 11:48 FiO2 Intake & Output 01/06/25 01/07/25 01/07/25 18:59 06:59 18:59 Intake Total 1320 240 Output Total 400 300 Balance 920 -60 Intake: Oral 1320 240 Output: Urine 400 300 Other: Voiding Method Indwelling Catheter Indwelling Catheter Indwelling Catheter # Bowel Movements 1 1 3 - Exam GENERAL DESCRIPTION: Middle-age male lying in bed in no distress RESPIRATORY SYSTEM: Unlabored breathing , decreased breath sounds at bases HEART: S1 S2 regular rate and rhythm , ABDOMEN: Soft , no tenderness EXTREMITIES: No edema feet - Labs CBC & Chem 7: 01/04/25 07:41 01/04/25 07:41 Labs: Abnormal Lab Results - Last 24 Hours (Table) 01/07/25 01/07/25 Range/Units 06:50 11:51 POC Glucose (mg/dL) 133 H 208 H (70-110) mg/dL Microbiology - Last 24 Hours (Table) 01/01/25 01:52 Blood Culture - Final Blood Assessment and Plan (1) UTI (urinary tract infection) Current Visit: Yes Status: Acute Code(s): N39.0 - URINARY TRACT INFECTION, SITE NOT SPECIFIED SNOMED Code(s): 46409243 (2) Failure of outpatient treatment Current Visit: Yes Status: Acute Code(s): Z78.9 - OTHER SPECIFIED HEALTH STATUS SNOMED Code(s): 670329129 (3) Diarrhea Current Visit: Yes Status: Acute Code(s): R19.7 - DIARRHEA, UNSPECIFIED SNOMED Code(s): 31325593 Plan: 1patient presented hospital with burning urine suprapubic discomfort and significantly positive UA concerning for symptomatic UTI in this patient who recently did go to a drug-resistant Enterobacter feeling outpatient oral Cipro therapy 2-we will obtain ultrasound of the kidney bladder because of recurrent UTI to mention evidence of any structural abnormality 3-patient did have improvement in his urinary symptoms however urine cultures came back negative, repeat UA is positive patient received adequate meropenem while inpatient and was discontinued yesterday 4patient now with symptoms of nausea and diarrhea possible antibiotic associated stool for C. difficile negative will be advised to continue with the Questran for symptomatic relief Dictation was produced using [employer] dictation software. please excuse any grammatical, word or spelling errors. Time with Patient: Less than 30
[2025-01-07 15:24] LABS: Basophils # (A) 0.04 10*3/uL (0.00-0.10); Basophils % (A) 0.6 %; Eosinophils # (A) 0.05 10*3/uL (0.04-0.35); Eosinophils % (A) 0.8 %; HCT 32.7 % (39.6-50.0); HGB 10.8 g/dL (13.0-17.0); Lymphocytes # (A) 0.65 10*3/uL (0.90-5.00); Lymphocytes % (A) 10.4 %; MCH 33.2 pg (27.0-32.0); MCHC 33.0 g/dL (32.0-37.0); MCV 100.6 fL (80.0-97.0); Monocytes # (A) 0.49 10*3/uL (0.20-1.00); Monocytes % (A) 7.8 %; Neutrophils # (A) 5.01 10*3/uL (1.80-7.70); Neutrophils % (A) 80.1 %; Platelet Count 131 10*3/uL (140-440); RBC 3.25 10*6/uL (4.40-5.60); RDW 16.0 % (11.5-14.5); WBC 6.26 10*3/uL (4.50-10.00)
[2025-01-07] MEDS: ONDANSETRON 4 MG/2 ML VIAL IVP PRN (15:42)
[2025-01-07 15:55] LABS: ALT 65 U/L (4-49); AST 65 U/L (17-59); African American GFR (CKD) 25 (>60 ml/min/1.73 sqM); Albumin 4.4 g/dL (3.5-5.0); Albumin/Globulin Ratio 1.6; Alkaline Phosphatase 104 U/L (38-126); Anion Gap 12 mmol/L; Blood Urea Nitrogen 15 mg/dL (9-20); Calcium 8.9 mg/dL (8.4-10.2); Carbon Dioxide 28 mmol/L (22-30); Chloride 94 mmol/L (98-107); Globulin 2.7 g/dL; Glucose 168 mg/dL (74-99); Non-African American GFR(CKD) 21 (>60 ml/min/1.73 sqM); Potassium 4.0 mmol/L (3.5-5.1); Sodium 134 mmol/L (137-145); Total Protein 7.1 g/dL (6.3-8.2)
--- NOTE | 2025-01-07 16:08 | P.PN ---
Subjective Progress Note Date: 01/07/25 HISTORY OF PRESENT ILLNESS: This is a 59-year-old male with a previous medical history significant for coronary artery disease status post myocardial infarction back in 2014 and in 2022 status post PCI of the LAD as well as LCx, last stent placed was in 2022, hypertension and hypertensive cardiovascular disease, mixed hyperlipidemia, diabetes mellitus type 2, legally blind, history of ischemic cerebrovascular accident in the past with left-sided weakness, history of recurrent TIA, history of enlarged prostate, history of anxiety and depressive disorder, history of end-stage renal disease on hemodialysis Thursday and Thursday via fistula in the left upper extremity, patient was recently seen in the office for symptoms suggestive of urinary tract infection that is complicated UTI, he was started on ciprofloxacin 500 mg orally once every day and the patient ended up coming back to the emergency department because he was not doing better, he was seen in the emergency department at [facility] today with increased burning sensation and pain in the suprapubic area, his urinalysis was quite positive, last time he was in the hospital his urine culture was positive for enterobacteria clocae that was resistant to a lot of antibiotics including ceftriaxone and he did receive IV antibiotic at that time, in any regard patient was admitted to the hospital for evaluation of failed outpatient treatment of a complicated UTI with multidrug-resistant organism, infectious disease consultation was obtained, Discontinue ceftriaxone start the patient on Fortaz 1 g IV piggyback every 24 hours, he may need to be started on Avycaz 01/02: Patient is laying down in bed in no apparent distress, he continues to have some pain at the tip of the penis, his urine culture came back negative so far, patient was on oral antibiotic in the form of ciprofloxacin prior to the arrival, continue meropenem, continue to follow-up with the patient very closely, patient did have an ultrasound of the abdomen did not show evidence of acute abnormalities, will change his Garcia catheter, and will discuss with infectious disease the plan of action hemodialysis tomorrow morning 01/03: Patient is laying down in bed in no apparent distress, he is getting his hemodialysis, he complained of some suprapubic pain at this time, he continued to have the pain in his penis, his Garcia catheter was changed, urine culture was repeated, left worse: Urine culture was contamination, continue meropenem 1 g piggyback every 24 hours after dialysis, follow-up with the patient very closely 01/04: Patient is laying down in bed in no apparent distress, he did have dialysis yesterday, he is not having fever or chills at this point in time, he seems to be tolerating treatment well, he did have a good bowel movement yesterday, patient also had his Garcia catheter reinserted, infectious disease service recommended to repeat a urine culture from the new Garcia catheter, continue current treatment with meropenem 1 g piggyback every 24 hours, follow- up with the patient very closely, further recommendation is to follow the patient progression and the [employer] consultant recommendation. 01/05: Patient is laying down in bed in no apparent distress, is feeling nauseated today with significant postnasal drip,, he has no pain in the penis, he has been tolerating treatment very well, today would be stay at 5 antibiotic, I will start the patient on Flonase nasal spray 1 puff in each nostril twice every day as well as loratadine 10 mg once every day. Follow-up with the patient very closely. 01/06: Patient continues to be somewhat nauseated, he is not able to keep anything down, he did not have any breakfast today, he did have diarrhea, abdominal x-ray was done, and that showed evidence of fecal material throughout the colon, patient will be sent for a CT scan of the abdomen pelvis with oral contrast, I will start the patient on Dulcolax suppository 10 mg x 1, patient will really stay in the hospital since he is not able to keep anything down and he has diabetes, therefore we will cancel discharge, and keep the patient in the hospital for another 24 hours, pending the result of the CT scan of the abdomen and pelvis, hopefully he will be able to discharge home tomorrow morning. 01/07: Patient is laying down in bed in no apparent distress, he continues to be somewhat nauseated at this time, he is eating better than yesterday he continues to have some soft stool, he was started on Questran by infectious disease, feeling a bit better, not out of the cuadra, his CT scan of the abdomen pelvis showed significant circumferential wall thickening of the rectum suggestive of proctitis rule out adenocarcinoma, I will consult general surgery for possible direct visualization, patient is off antibiotic at this time, follow-up with the patient very closely REVIEW OF SYSTEMS: Constitutional: No documented fever, no chills, no night sweats. Significant weight change. Generalized weakness, fatigue or lethargy. No daytime sleepiness. EENT: No headache. Patient is legally blind, positive for loss of vision. No loss of Hearing, no ringing in the ears, no dizziness. No nasal drainage or congestion. No epistaxis. No sore throat. Lungs: No shortness of breath, occasional cough, no sputum production. No wheezing. Reports dyspnea with activity. Cardiovascular: No chest pain, no lower extremity edema. No palpitations. No paroxysmal nocturnal dyspnea. No orthopnea. No lightheadedness or dizziness. No syncopal episodes. Abdominal: Reports abdominal pain. Positive for nausea, no vomiting. occasiona; diarrhea. Positive for constipation. No bloody stool reports loss of appetite. Genitourinary: Positive for dysuria, increased frequency, urgency, Garcia catheter in place. Musculoskeletal: No myalgias. No muscle weakness, no gait dysfunction, no frequent falls. No back pain. No neck pain. Integumentary: No wounds, no lesions. No rash or pruritus. No unusual bruising. No change in hair or nails. Neurologic: No aphasia. No facial droop. No change in mentation. No head injury. No headache. No paralysis. Positive for paresthesia due to diabetic polyneuropathy Psychiatric: Positive for depression. No anxiety. No mood swings. Endocrine: Positive for abnormal blood sugars. Significant weight change. PHYSICAL EXAMINATION: General: 59-year-old male laying down in bed in no apparent distress. HEENT: Head is atraumatic, normocephalic, pupils were equal round reactive to light and recommendation, extraocular muscle movement were intact, sclera nonict ryan, conjunctivae were pale, mucous membranes of the mouth are somewhat dry. Neck: Supple, no JVP, normal carotid upstroke bilaterally, no lymphadenopathy. Chest: Decreased breath sounds at the bases, few rhonchi, no expiratory wheezes, no chest wall tenderness, no intercostal retractions. Heart: First heart sound is normal, second heart sounds normal systolic ejection murmur 2/6 located in the left sternal border. Abdomen: Soft, mild tenderness in the epigastric as well as left lower quadrant mildly distended, positive bowel sounds. Extremities: There is no edema no calf tenderness DP +2 bilaterally. Neurologic examination: Patient is awake alert and oriented x3, cranial nerves II-12 appear grossly intact, left-sided weakness that has been chronic. ASSESSMENT AND PLAN: 1. complicated UTI with SIRS due to chronic indwelling Garcia catheterization . Patient was treated with 5-day course of meropenem 1 g IV piggyback every 24 hours, monitor the patient symptoms very closely. Currently off antibiotic 2. Intractable nausea and vomiting likely combination of IV antibiotic as well as fecal stasis. Patient did have a CT scan of the abdomen pelvis that showed evidence of extensive circumferential wall thickening of the rectum suggestive of proctitis rule out adenocarcinoma, consult general surgery For direct visualization. 2. End-stage renal disease on hemodialysis Thursday and Thursday. We will continue with current treatment plan. 3. Generalized weakness likely related to poor oral intake as well as worsening anemia. Continue treatment as in previous paragraphs. 4. Coronary artery disease status post recent heart catheterization 06/17/2024 that showed stable disease with patent stented arteries of the LAD and LCx. Continue patient on metoprolol ER 50 mg orally once every day, isosorbide mononitrate 30 mg orally once every day, hydralazine 50 mg orally 3 times every day, atorvastatin 80 mg once every day, ranolazine 500 mg orally twice every day , continue aspirin and Plavix 5. Hypertension and hypertensive cardiovascular disease. Continue patient on metoprolol ER 50 mg once every day, increase hydralazine 100 mg orally 3 times every day, losartan 25 mg once every day. 6. Mixed hyperlipidemia. Continue patient on atorvastatin 80 mg once every day, monitor the patient lipid panel, keep LDL 55 7. PAD. Stable at this time. Continue atorvastatin for secondary prevention. 8. Diabetes mellitus type 2 . Continue patient on Levemir 17 units at bedtime along with 9 units before each meal 3 times every day, monitor the patient blood sugar before each meal and bedtime. 9. History of CVA in the past with left-sided weakness and recurrent TIA. Continue patient on atorvastatin 80 mg once every day, continue patient on Plavix 75 mg once every day as well as aspirin 80 mg every day. 10. Enlarged prostate with urinary retention. Continue Flomax 0.4 mg orally twice every day. 11. History of gout. Continue patient on allopurinol 100 mg once every day. 12. History of anxiety and depressive disorder. Continue citalopram 60 mg orally once every day. 13. Anemia multifactorial monitor the patient hemoglobin very closely, transfuse for hemoglobin less than 7. 14. we will repeat labs tomorrow morning. Objective - Vital Signs Vital signs: Vital Signs Temp 98.6 F 01/07/25 14:46 Pulse 80 01/07/25 14:46 Resp 16 01/07/25 14:46 BP 155/73 01/07/25 14:46 Pulse Ox 99 01/07/25 11:48 FiO2 Intake & Output 01/06/25 01/07/25 01/07/25 18:59 06:59 18:59 Intake Total 1320 240 400 Output Total 282 095 7283 Balance Intake: Oral 1320 240 Hemodialysis 400 Output: Urine 400 300 Hemodialysis 2400 Hemodialysis Net Amount 2000 Other: Voiding Method Indwelling Catheter Indwelling Catheter Indwelling Catheter # Bowel Movements 1 1 3 - Labs CBC & Chem 7: 01/07/25 15:12 01/07/25 15:12 Labs: Abnormal Lab Results - Last 24 Hours (Table) 01/07/25 01/07/25 01/07/25 Range/Units 06:50 11:51 15:12 RBC 3.25 L (4.40-5.60) 10*6/uL Hgb 10.8 L (13.0-17.0) g/dL Hct 32.7 L (39.6-50.0) % MCV 100.6 H (80.0-97.0) fL MCH 33.2 H (27.0-32.0) pg RDW 16.0 H (11.5-14.5) % Plt Count 131 L (140-440) 10*3/uL MPV 9.1 L (9.5-12.2) fL Lymphocytes # 0.65 L (0.90-5.00) 10*3/uL Sodium (137-145) mmol/L Chloride (98-107) mmol/L Creatinine (0.66-1.25) mg/dL Glucose (74-99) mg/dL POC Glucose (mg/dL) 133 H 208 H (70-110) mg/dL AST (17-59) U/L ALT (4-49) U/L 01/07/25 Range/Units 15:12 RBC (4.40-5.60) 10*6/uL Hgb (13.0-17.0) g/dL Hct (39.6-50.0) % MCV (80.0-97.0) fL MCH (27.0-32.0) pg RDW (11.5-14.5) % Plt Count (140-440) 10*3/uL MPV (9.5-12.2) fL Lymphocytes # (0.90-5.00) 10*3/uL Sodium 134 L (137-145) mmol/L Chloride 94 L (98-107) mmol/L Creatinine 3.09 H (0.66-1.25) mg/dL Glucose 168 H (74-99) mg/dL POC Glucose (mg/dL) (70-110) mg/dL AST 65 H (17-59) U/L ALT 65 H (4-49) U/L Microbiology - Last 24 Hours (Table) 01/01/25 01:52 Blood Culture - Final Blood
[2025-01-07 17:16] LABS: Glucose,Whole Blood 207 mg/dL (70-110)
[2025-01-07 20:22] LABS: Glucose,Whole Blood 90 mg/dL (70-110)
[2025-01-08 07:03] LABS: Glucose,Whole Blood 159 mg/dL (70-110)
--- NOTE | 2025-01-08 08:52 | P.PN ---
Subjective Progress Note Date: 01/08/25 HISTORY OF PRESENT ILLNESS: This is a 59-year-old male with a previous medical history significant for coronary artery disease status post myocardial infarction back in 2014 and in 2022 status post PCI of the LAD as well as LCx, last stent placed was in 2022, hypertension and hypertensive cardiovascular disease, mixed hyperlipidemia, diabetes mellitus type 2, legally blind, history of ischemic cerebrovascular accident in the past with left-sided weakness, history of recurrent TIA, history of enlarged prostate, history of anxiety and depressive disorder, history of end-stage renal disease on hemodialysis Thursday and Thursday via fistula in the left upper extremity, patient was recently seen in the office for symptoms suggestive of urinary tract infection that is complicated UTI, he was started on ciprofloxacin 500 mg orally once every day and the patient ended up coming back to the emergency department because he was not doing better, he was seen in the emergency department at [facility] today with increased burning sensation and pain in the suprapubic area, his urinalysis was quite positive, last time he was in the hospital his urine culture was positive for enterobacteria clocae that was resistant to a lot of antibiotics including ceftriaxone and he did receive IV antibiotic at that time, in any regard patient was admitted to the hospital for evaluation of failed outpatient treatment of a complicated UTI with multidrug-resistant organism, infectious disease consultation was obtained, Discontinue ceftriaxone start the patient on Fortaz 1 g IV piggyback every 24 hours, he may need to be started on Avycaz 01/02: Patient is laying down in bed in no apparent distress, he continues to have some pain at the tip of the penis, his urine culture came back negative so far, patient was on oral antibiotic in the form of ciprofloxacin prior to the arrival, continue meropenem, continue to follow-up with the patient very closely, patient did have an ultrasound of the abdomen did not show evidence of acute abnormalities, will change his Garcia catheter, and will discuss with infectious disease the plan of action hemodialysis tomorrow morning 01/03: Patient is laying down in bed in no apparent distress, he is getting his hemodialysis, he complained of some suprapubic pain at this time, he continued to have the pain in his penis, his Garcia catheter was changed, urine culture was repeated, left worse: Urine culture was contamination, continue meropenem 1 g piggyback every 24 hours after dialysis, follow-up with the patient very closely 01/04: Patient is laying down in bed in no apparent distress, he did have dialysis yesterday, he is not having fever or chills at this point in time, he seems to be tolerating treatment well, he did have a good bowel movement yesterday, patient also had his Garcia catheter reinserted, infectious disease service recommended to repeat a urine culture from the new Garcia catheter, continue current treatment with meropenem 1 g piggyback every 24 hours, follow- up with the patient very closely, further recommendation is to follow the patient progression and the leasing consultant recommendation. 01/05: Patient is laying down in bed in no apparent distress, is feeling nauseated today with significant postnasal drip,, he has no pain in the penis, he has been tolerating treatment very well, today would be stay at 5 antibiotic, I will start the patient on Flonase nasal spray 1 puff in each nostril twice every day as well as loratadine 10 mg once every day. Follow-up with the patient very closely. 01/06: Patient continues to be somewhat nauseated, he is not able to keep anything down, he did not have any breakfast today, he did have diarrhea, abdominal x-ray was done, and that showed evidence of fecal material throughout the colon, patient will be sent for a CT scan of the abdomen pelvis with oral contrast, I will start the patient on Dulcolax suppository 10 mg x 1, patient will really stay in the hospital since he is not able to keep anything down and he has diabetes, therefore we will cancel discharge, and keep the patient in the hospital for another 24 hours, pending the result of the CT scan of the abdomen and pelvis, hopefully he will be able to discharge home tomorrow morning. 01/07: Patient is laying down in bed in no apparent distress, he continues to be somewhat nauseated at this time, he is eating better than yesterday he continues to have some soft stool, he was started on Questran by infectious disease, feeling a bit better, not out of the cuadra, his CT scan of the abdomen pelvis showed significant circumferential wall thickening of the rectum suggestive of proctitis rule out adenocarcinoma, I will consult general surgery for possible direct visualization, patient is off antibiotic at this time, follow-up with the patient very closely 01/08: Patient is sitting up in bed in no apparent distress, he did eat breakfast today, he denies any nausea or vomiting at this time, he continues to have some pressure in the rectum, await general surgery evaluation for the circumferential thickness of the rectum, patient is scheduled to go for colonoscopy next week, francis was seen by Surgery and he is scheduled for Colonoscopy in AM REVIEW OF SYSTEMS: Constitutional: No documented fever, no chills, no night sweats. Significant weight change. Generalized weakness, fatigue or lethargy. No daytime sleepiness. EENT: No headache. Patient is legally blind, positive for loss of vision. No loss of Hearing, no ringing in the ears, no dizziness. No nasal drainage or congestion. No epistaxis. No sore throat. Lungs: No shortness of breath, occasional cough, no sputum production. No wheezing. Reports dyspnea with activity. Cardiovascular: No chest pain, no lower extremity edema. No palpitations. No paroxysmal nocturnal dyspnea. No orthopnea. No lightheadedness or dizziness. No syncopal episodes. Abdominal: Reports abdominal pain. Positive for nausea, no vomiting. occasiona; diarrhea. Positive for constipation. No bloody stool reports loss of appetite. Genitourinary: Positive for dysuria, increased frequency, urgency, Garcia catheter in place. Musculoskeletal: No myalgias. No muscle weakness, no gait dysfunction, no frequent falls. No back pain. No neck pain. Integumentary: No wounds, no lesions. No rash or pruritus. No unusual bruising. No change in hair or nails. Neurologic: No aphasia. No facial droop. No change in mentation. No head injury. No headache. No paralysis. Positive for paresthesia due to diabetic polyneuropathy Psychiatric: Positive for depression. No anxiety. No mood swings. Endocrine: Positive for abnormal blood sugars. Significant weight change. PHYSICAL EXAMINATION: General: 59-year-old male laying down in bed in no apparent distress. HEENT: Head is atraumatic, normocephalic, pupils were equal round reactive to light and recommendation, extraocular muscle movement were intact, sclera nonicteric, conjunctivae were pale, mucous membranes of the mouth are somewhat dry. Neck: Supple, no JVP, normal carotid upstroke bilaterally, no lymphadenopathy. Chest: Decreased breath sounds at the bases, few rhonchi, no expiratory wheezes, no chest wall tenderness, no intercostal retractions. Heart: First heart sound is normal, second heart sounds normal systolic ejection murmur 2/6 located in the left sternal border. Abdomen: Soft, mild tenderness in the epigastric as well as left lower quadrant mildly distended, positive bowel sounds. Extremities: There is no edema no calf tenderness DP +2 bilaterally. Neurologic examination: Patient is awake alert and oriented x3, cranial nerves II-12 appear grossly intact, left-sided weakness that has been chronic. ASSESSMENT AND PLAN: 1. complicated UTI with SIRS due to chronic indwelling Garcia catheterization . Patient was treated with 5-day course of meropenem 1 g IV piggyback every 24 hours, monitor the patient symptoms very closely. Currently off antibiotic 2. Intractable nausea and vomiting likely combination of IV antibiotic as well as fecal stasis. Patient did have a CT scan of the abdomen pelvis that showed evidence of extensive circumferential wall thickening of the rectum suggestive of proctitis rule out adenocarcinoma, consult general surgery Dr. Mckinney if he is cleared by surgery patient is scheduled for Colonoscopy in AM 2. End-stage renal disease on hemodialysis Thursday and Thursday. We will continue with current treatment plan. 3. Generalized weakness likely related to poor oral intake as well as worsening anemia. Continue treatment as in previous paragraphs. 4. Coronary artery disease status post recent heart catheterization 06/17/2024 that showed stable disease with patent stented arteries of the LAD and LCx. Continue patient on metoprolol ER 50 mg orally once every day, isosorbide mononitrate 30 mg orally once every day, hydralazine 50 mg orally 3 times every day, atorvastatin 80 mg once every day, ranolazine 500 mg orally twice every day, continue aspirin and Plavix 5. Hypertension and hypertensive cardiovascular disease. Continue patient on metoprolol ER 50 mg once every day, increase hydralazine 100 mg orally 3 times every day, losartan 25 mg once every day. 6. Mixed hyperlipidemia. Continue patient on atorvastatin 80 mg once every day, monitor the patient lipid panel, keep LDL 55 7. PAD. Stable at this time. Continue atorvastatin for secondary prevention. 8. Diabetes mellitus type 2 . Continue patient on Levemir 17 units at bedtime along with 9 units before each meal 3 times every day, monitor the patient blood sugar before each meal and bedtime. 9. History of CVA in the past with left-sided weakness and recurrent TIA. Continue patient on atorvastatin 80 mg once every day, continue patient on Plavix 75 mg once every day as well as aspirin 80 mg every day. 10. Enlarged prostate with urinary retention. Continue Flomax 0.4 mg orally twice every day. 11. History of gout. Continue patient on allopurinol 100 mg once every day. 12. History of anxiety and depressive disorder. Continue citalopram 60 mg orally once every day. 13. Anemia multifactorial monitor the patient hemoglobin very closely, transfuse for hemoglobin less than 7. 14. Patient is scheduled for colonoscopy in AM Objective - Vital Signs Vital signs: Vital Signs Temp 98.2 F 01/08/25 06:58 Pulse 78 01/08/25 06:58 Resp 16 01/08/25 06:58 BP 171/82 01/08/25 06:58 Pulse Ox 99 01/08/25 06:58 FiO2 Intake & Output 01/07/25 01/08/25 01/08/25 18:59 06:59 18:59 Intake Total 1720 240 Output Total 4550 100 Balance -2830 140 Intake: Oral 1320 240 Hemodialysis 400 Output: Urine 150 100 Hemodialysis 2400 Hemodialysis Net Amount 2000 Other: Voiding Method Indwelling Catheter Indwelling Catheter # Bowel Movements 1 - Labs CBC & Chem 7: 01/07/25 15:12 01/07/25 15:12 Labs: Abnormal Lab Results - Last 24 Hours (Table) 01/07/25 01/07/25 01/07/25 Range/Units 11:51 15:12 15:12 RBC 3.25 L (4.40-5.60) 10*6/uL Hgb 10.8 L (13.0-17.0) g/dL Hct 32.7 L (39.6-50.0) % MCV 100.6 H (80.0-97.0) fL MCH 33.2 H (27.0-32.0) pg RDW 16.0 H (11.5-14.5) % Plt Count 131 L (140-440) 10*3/uL MPV 9.1 L (9.5-12.2) fL Lymphocytes # 0.65 L (0.90-5.00) 10*3/uL Sodium 134 L (137-145) mmol/L Chloride 94 L (98-107) mmol/L Creatinine 3.09 H (0.66-1.25) mg/dL Glucose 168 H (74-99) mg/dL POC Glucose (mg/dL) 208 H (70-110) mg/dL AST 65 H (17-59) U/L ALT 65 H (4-49) U/L 01/07/25 01/08/25 Range/Units 17:12 07:01 RBC (4.40-5.60) 10*6/uL Hgb (13.0-17.0) g/dL Hct (39.6-50.0) % MCV (80.0-97.0) fL MCH (27.0-32.0) pg RDW (11.5-14.5) % Plt Count (140-440) 10*3/uL MPV (9.5-12.2) fL Lymphocytes # (0.90-5.00) 10*3/uL Sodium (137-145) mmol/L Chloride (98-107) mmol/L Creatinine (0.66-1.25) mg/dL Glucose (74-99) mg/dL POC Glucose (mg/dL) 207 H 159 H (70-110) mg/dL AST (17-59) U/L ALT (4-49) U/L
--- NOTE | 2025-01-08 10:52 | P.GSCN ---
History of Present Illness Consult date: 01/08/25 Reason for Consult: Rectal thickening, diarrhea History of present illness: 59-year-old male whose had complaints of some vague abdominal pain, diarrhea. His CAT scan shows evidence of new rectal thickening. Patient had been scheduled for an outpatient colonoscopy which needs to be rescheduled. Past Medical History Past Medical History: Coronary Artery Disease (CAD), Chest Pain / Angina, CVA/TIA, Diabetes Mellitus, Eye Disorder, GERD/Reflux, Hearing Disorder / Deafness, Hyperlipidemia, Hypertension, Myocardial Infarction (MD), Prostate Disorder, Renal Disease, Rheumatoid Arthritis (RA) Additional Past Medical History / Comment(s): MD X2 in 2014 and 02/2023., 02 3L/NC prn., Hx stroke Apr 2017. , hx tia's ., left side weakness., Migranes., Diabetic neuropathy arms and legs, tremors off and on, circulation problems, uses quad cane and wheelchair prn., Kidney disease with dialysis [facility]. Hx Pancreatitis., Legally blind, some trouble hearing. Enlarged prostate, trouble urinating. , hx of uti's., anemia., constipation, arm surgery/fistula Last Myocardial Infarction Date:: 02/2023 History of Any Multi-Drug Resistant Organisms: CRE, Other MDRO Year Discovered:: 08/14/24 MDRO Source:: urine Past Surgical History: Cholecystectomy, Heart Catheterization, Heart Catheterization With Stent, Heart Catheterization With Stent, Hernia Repair, Prostate Surgery Additional Past Surgical History / Comment(s): Dialysis Port Placed - 03/14/23, HIATAL HERNIA REPAIR - 01/23/21., states hx 5 heart caths with 5 stents., fistula on right arm, bilateral cataracts removed Past Anesthesia/Blood Transfusion Reactions: No Reported Reaction Additional Past Anesthesia/Blood Transfusion Reaction / Comm: . Date of Last Stent Placement:: 05/07/23 Past Psychological History: Anxiety, Depression Additional Psychological History / Comment(s): He uses a quad cane or walker to ambulate. He is legally blind. He reads minimally with magnifying glass and signs his name only now. Smoking Status: Never smoker Past Alcohol Use History: None Reported Past Drug Use History: None Reported - Past Family History Mother Family Medical History: CVA/TIA, Diabetes Mellitus, Hypertension Additional Family Medical History / Comment(s): Parkinson's. Father Family Medical History: Myocardial Infarction (MD) Additional Family Medical History / Comment(s): Father of a MD in his 50s. Medications and Allergies Home Medications Medication Instructions Recorded Confirmed Type Tamsulosin [Flomax] 0.4 mg PO BID 11/05/17 01/01/25 History Citalopram Hydrobromide [CeleXA] 20 mg PO DAILY 12/12/18 01/01/25 History allopurinoL [Zyloprim] 100 mg PO DAILY 04/05/19 01/01/25 History Atorvastatin [Lipitor] 80 mg PO HS 12/30/19 01/01/25 History Losartan [Cozaar] 25 mg PO DAILY 09/19/23 01/01/25 History Metoprolol Succinate (ER) [Toprol 50 mg PO DAILY 09/19/23 01/01/25 History XL] Ranolazine [Ranexa] 500 mg PO Q12HR #60 tab 09/21/23 01/01/25 Rx Furosemide [Lasix] 80 mg PO DAILY 10/16/23 01/01/25 History Nitroglycerin Sl Tabs [Nitrostat] 0.4 mg SL Q5M PRN 10/16/23 01/01/25 History hydrALAZINE HCL [Apresoline] 50 mg PO TID 04/12/24 01/01/25 History Clopidogrel [Plavix] 75 mg PO DAILY 06/16/24 01/01/25 History Isosorbide Mononitrate ER [Imdur] 30 mg PO DAILY #90 tab 07/01/24 01/01/25 Rx Insulin Glargine,Hum.rec.anlog 17 units SQ HS 07/12/24 01/01/25 History [Lantus Solostar Pen] Insulin Lispro [humaLOG Kwikpen] 9 unit SQ AC-TID 07/12/24 01/01/25 History cycloSPORINE 0.05% OPHTH SOLN 1 applicator BOTH EYES BID 10/31/24 01/01/25 History [Restasis] Linaclotide [Linzess] 72 mcg PO DAILY 01/01/25 01/01/25 History Cholestyramine Resin [Questran 4 gm PO BID@1000,1800 #60 packet 01/06/25 Rx Packet] Fluticasone Nasal [place]ell [Flonase 1 spray EA NOSTRIL BID #0 ml 01/06/25 Rx Nasal Sidell] Loratadine [Claritin] 10 mg PO DAILY tab 01/06/25 Rx Allergies Allergy/AdvReac Type Severity Reaction Status Date / Time hydromorphone AdvReac Confusion Verified 01/01/25 13:57 Iodinated Contrast Media AdvReac Nausea & Verified 01/01/25 13:57 [Iodinated Contrast- Oral Vomiting and IV Dye] sucralfate AdvReac Nausea & Verified 01/01/25 13:57 Vomiting Surgical - Exam Vital Signs Temp Pulse Resp BP Pulse Ox 98.3 F 62 18 143/69 98 01/01/25 00:37 01/01/25 00:37 01/01/25 00:37 01/01/25 00:37 01/01/25 00:37 - General well developed, well nourished, no distress - Eyes PERRL - ENT normal pinna - Respiratory normal expansion - Cardiovascular Rhythm: regular - Abdomen Abdomen: soft, non tender Results - Labs 01/07/25 15:12 01/07/25 15:12 Abnormal Lab Results - Last 24 Hours (Table) 01/07/25 01/07/25 01/07/25 Range/Units 11:51 15:12 15:12 RBC 3.25 L (4.40-5.60) 10*6/uL Hgb 10.8 L (13.0-17.0) g/dL Hct 32.7 L (39.6-50.0) % MCV 100.6 H (80.0-97.0) fL MCH 33.2 H (27.0-32.0) pg RDW 16.0 H (11.5-14.5) % Plt Count 131 L (140-440) 10*3/uL MPV 9.1 L (9.5-12.2) fL Lymphocytes # 0.65 L (0.90-5.00) 10*3/uL Sodium 134 L (137-145) mmol/L Chloride 94 L (98-107) mmol/L Creatinine 3.09 H (0.66-1.25) mg/dL Glucose 168 H (74-99) mg/dL POC Glucose (mg/dL) 208 H (70-110) mg/dL AST 65 H (17-59) U/L ALT 65 H (4-49) U/L 01/07/25 01/08/25 Range/Units 17:12 07:01 RBC (4.40-5.60) 10*6/uL Hgb (13.0-17.0) g/dL Hct (39.6-50.0) % MCV (80.0-97.0) fL MCH (27.0-32.0) pg RDW (11.5-14.5) % Plt Count (140-440) 10*3/uL MPV (9.5-12.2) fL Lymphocytes # (0.90-5.00) 10*3/uL Sodium (137-145) mmol/L Chloride (98-107) mmol/L Creatinine (0.66-1.25) mg/dL Glucose (74-99) mg/dL POC Glucose (mg/dL) 207 H 159 H (70-110) mg/dL AST (17-59) U/L ALT (4-49) U/L Diabetes panel 01/07/25 Range/Units 15:12 Sodium 134 L (137-145) mmol/L Potassium 4.0 (3.5-5.1) mmol/L Chloride 94 L (98-107) mmol/L Carbon Dioxide 28 (22-30) mmol/L BUN 15 (9-20) mg/dL Creatinine 3.09 H (0.66-1.25) mg/dL Glucose 168 H (74-99) mg/dL Calcium 8.9 (8.4-10.2) mg/dL AST 65 H (17-59) U/L ALT 65 H (4-49) U/L Alkaline Phosphatase 104 (38-126) U/L Total Protein 7.1 (6.3-8.2) g/dL Albumin 4.4 (3.5-5.0) g/dL Calcium panel 01/07/25 Range/Units 15:12 Calcium 8.9 (8.4-10.2) mg/dL Albumin 4.4 (3.5-5.0) g/dL Pituitary panel 01/07/25 Range/Units 15:12 Sodium 134 L (137-145) mmol/L Potassium 4.0 (3.5-5.1) mmol/L Chloride 94 L (98-107) mmol/L Carbon Dioxide 28 (22-30) mmol/L BUN 15 (9-20) mg/dL Creatinine 3.09 H (0.66-1.25) mg/dL Glucose 168 H (74-99) mg/dL Calcium 8.9 (8.4-10.2) mg/dL Adrenal panel 01/07/25 Range/Units 15:12 Sodium 134 L (137-145) mmol/L Potassium 4.0 (3.5-5.1) mmol/L Chloride 94 L (98-107) mmol/L Carbon Dioxide 28 (22-30) mmol/L BUN 15 (9-20) mg/dL Creatinine 3.09 H (0.66-1.25) mg/dL Glucose 168 H (74-99) mg/dL Calcium 8.9 (8.4-10.2) mg/dL Total Bilirubin 0.6 (0.2-1.3) mg/dL AST 65 H (17-59) U/L ALT 65 H (4-49) U/L Alkaline Phosphatase 104 (38-126) U/L Total Protein 7.1 (6.3-8.2) g/dL Albumin 4.4 (3.5-5.0) g/dL - Imaging CT scan - abdomen: report reviewed (Rectal wall thickening cannot rule out adenocarcinoma, bilateral inguinal hernias) Assessment and Plan Assessment: The patient was given the option to reschedule outpatient colonoscopy or have a colonoscopy formed tomorrow. Patient has opted to stay and have the colonoscopy performed tomorrow. He will receive bowel prep today. We will schedule him for colonoscopy.
[2025-01-08 12:14] LABS: Glucose,Whole Blood 181 mg/dL (70-110)
[2025-01-08] MEDS: PEG 3350 (236 GM/BTL) + LYTES 4,000 ML BOTTLE PO ONE (12:30)
[2025-01-08 17:14] LABS: Glucose,Whole Blood 167 mg/dL (70-110)
--- NOTE | 2025-01-08 18:05 | P.PN ---
Subjective Progress Note Date: 01/08/25 Principal diagnosis: Reason for follow-up is UTI Patient is a 59-year-old male with a past medical history significant for end-stage renal disease on dialysis via right arm AV fistula patient still makes urine he did have history of recurrent UTI with the last urine culture done back in his August 2024 did grew into resistant Enterobacter cloacae presented to hospital with significant burning of urine and suprapubic pain positive with concern for symptomatic UTI. On today's evaluation that is 01/08/2025, Patient is afebrile patient is currently on room air and denies having any shortness of breath, the patient denies any chest pain or cough, the patient denies any nausea vomiting did not have any abdominal pain and did have improvement in diarrhea. No new lab has been obtained today Objective - Vital Signs Vital signs: Vital Signs Temp 98.2 F 01/08/25 06:58 Pulse 79 01/08/25 09:00 Resp 18 01/08/25 09:00 BP 165/74 01/08/25 09:00 Pulse Ox 99 01/08/25 06:58 FiO2 Intake & Output 01/07/25 01/08/25 01/08/25 18:59 06:59 18:59 Intake Total 1720 240 Output Total 4550 100 Balance -2830 140 Intake: Oral 1320 240 Hemodialysis 400 Output: Urine 150 100 Hemodialysis 2400 Hemodialysis Net Amount 2000 Other: Voiding Method Indwelling Catheter Indwelling Catheter Indwelling Catheter # Bowel Movements 1 - Exam GENERAL DESCRIPTION: Middle-age male lying in bed in no distress RESPIRATORY SYSTEM: Unlabored breathing , decreased breath sounds at bases HEART: S1 S2 regular rate and rhythm , ABDOMEN: Soft , no tenderness EXTREMITIES: No edema feet - Labs CBC & Chem 7: 01/07/25 15:12 01/07/25 15:12 Labs: Abnormal Lab Results - Last 24 Hours (Table) 01/07/25 01/07/25 01/07/25 Range/Units 11:51 15:12 15:12 RBC 3.25 L (4.40-5.60) 10*6/uL Hgb 10.8 L (13.0-17.0) g/dL Hct 32.7 L (39.6-50.0) % MCV 100.6 H (80.0-97.0) fL MCH 33.2 H (27.0-32.0) pg RDW 16.0 H (11.5-14.5) % Plt Count 131 L (140-440) 10*3/uL MPV 9.1 L (9.5-12.2) fL Lymphocytes # 0.65 L (0.90-5.00) 10*3/uL Sodium 134 L (137-145) mmol/L Chloride 94 L (98-107) mmol/L Creatinine 3.09 H (0.66-1.25) mg/dL Glucose 168 H (74-99) mg/dL POC Glucose (mg/dL) 208 H (70-110) mg/dL AST 65 H (17-59) U/L ALT 65 H (4-49) U/L 01/07/25 01/08/25 Range/Units 17:12 07:01 RBC (4.40-5.60) 10*6/uL Hgb (13.0-17.0) g/dL Hct (39.6-50.0) % MCV (80.0-97.0) fL MCH (27.0-32.0) pg RDW (11.5-14.5) % Plt Count (140-440) 10*3/uL MPV (9.5-12.2) fL Lymphocytes # (0.90-5.00) 10*3/uL Sodium (137-145) mmol/L Chloride (98-107) mmol/L Creatinine (0.66-1.25) mg/dL Glucose (74-99) mg/dL POC Glucose (mg/dL) 207 H 159 H (70-110) mg/dL AST (17-59) U/L ALT (4-49) U/L Assessment and Plan (1) UTI (urinary tract infection) Current Visit: Yes Status: Acute Code(s): N39.0 - URINARY TRACT INFECTION, SITE NOT SPECIFIED SNOMED Code(s): 35533639 (2) Failure of outpatient treatment Current Visit: Yes Status: Acute Code(s): Z78.9 - OTHER SPECIFIED HEALTH STATUS SNOMED Code(s): 099580418 (3) Diarrhea Current Visit: Yes Status: Acute Code(s): R19.7 - DIARRHEA, UNSPECIFIED SNOMED Code(s): 16415235 Plan: 1patient presented hospital with burning urine suprapubic discomfort and significantly positive UA concerning for symptomatic UTI in this patient who recently did go to a drug-resistant Enterobacter feeling outpatient oral Cipro therapy 2-we will obtain ultrasound of the kidney bladder because of recurrent UTI to mention evidence of any structural abnormality 3-patient did have improvement in his urinary symptoms however urine cultures came back negative, repeat UA is positive patient received adequate meropenem while inpatient which has been discontinued 4patient did have resolution of his GI symptoms however CT was suggestive of possible proctitis General Surgery has seen the patient planning for colonoscopy tomorrow results will be followed Dictation was produced using [employer] dictation software. please excuse any grammatical, word or spelling errors.
[2025-01-08 20:14] LABS: Glucose,Whole Blood 271 mg/dL (70-110)
[2025-01-09 07:14] LABS: Glucose,Whole Blood 178 mg/dL (70-110)
[2025-01-09 07:20] LABS: Basophils # (A) 0.03 10*3/uL (0.00-0.10); Basophils % (A) 0.4 %; Eosinophils # (A) 0.03 10*3/uL (0.04-0.35); Eosinophils % (A) 0.4 %; HCT 31.1 % (39.6-50.0); HGB 11.1 g/dL (13.0-17.0); Lymphocytes # (A) 0.84 10*3/uL (0.90-5.00); Lymphocytes % (A) 9.9 %; MCH 33.8 pg (27.0-32.0); MCHC 35.7 g/dL (32.0-37.0); MCV 94.8 fL (80.0-97.0); Monocytes # (A) 0.71 10*3/uL (0.20-1.00); Monocytes % (A) 8.3 %; Neutrophils # (A) 6.88 10*3/uL (1.80-7.70); Neutrophils % (A) 80.6 %; Platelet Count 134 10*3/uL (140-440); RBC 3.28 10*6/uL (4.40-5.60); RDW 16.0 % (11.5-14.5); WBC 8.52 10*3/uL (4.50-10.00)
[2025-01-09 07:41] LABS: ALT 77 U/L (4-49); African American GFR (CKD) 15 (>60 ml/min/1.73 sqM); Albumin 4.5 g/dL (3.5-5.0); Albumin/Globulin Ratio 1.6; Anion Gap 15 mmol/L; Blood Urea Nitrogen 35 mg/dL (9-20); Calcium 8.6 mg/dL (8.4-10.2); Carbon Dioxide 22 mmol/L (22-30); Chloride 95 mmol/L (98-107); Globulin 2.8 g/dL; Glucose 159 mg/dL (74-99); Non-African American GFR(CKD) 13 (>60 ml/min/1.73 sqM); Sodium 132 mmol/L (137-145); Total Protein 7.3 g/dL (6.3-8.2)
[2025-01-09 07:48] LABS: AST 85 U/L (17-59); Alkaline Phosphatase 91 U/L (38-126); Potassium 4.1 mmol/L (3.5-5.1)
[2025-01-09] MEDS: LOSARTAN 50 MG TAB PO SCH (08:19)
[2025-01-09] MEDS: amLODIPine 5 MG TAB PO SCH (09:57)
[2025-01-09 12:15] LABS: Glucose,Whole Blood 163 mg/dL (70-110)
--- NOTE | 2025-01-09 12:16 | P.PN ---
Subjective Patient is seen for follow-up for end-stage renal disease. No significant complaints today Scheduled for colonoscopy today Objective - Vital Signs Vital signs: Vital Signs Temp 98.4 F 01/09/25 07:10 Pulse 82 01/09/25 07:10 Resp 16 01/09/25 07:10 BP 169/67 01/09/25 09:37 Pulse Ox 99 01/09/25 07:10 FiO2 Intake & Output 01/08/25 01/09/25 01/09/25 18:59 06:59 18:59 Intake Total 176 Output Total 300 300 Balance -300 -124 Intake: Oral 176 Output: Urine 300 300 Other: Voiding Method Indwelling Catheter Indwelling Catheter Indwelling Catheter # Bowel Movements 3 1 - Exam Patient is awake, comfortable, no acute distress Examination of lower extremities shows no evidence of edema 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 - Labs CBC & Chem 7: 01/09/25 06:34 01/09/25 06:34 Labs: Abnormal Lab Results - Last 24 Hours (Table) 01/08/25 01/08/25 01/09/25 Range/Units 17:09 20:13 06:34 RBC 3.28 L (4.40-5.60) 10*6/uL Hgb 11.1 L (13.0-17.0) g/dL Hct 31.1 L (39.6-50.0) % MCH 33.8 H (27.0-32.0) pg RDW 16.0 H (11.5-14.5) % Plt Count 134 L (140-440) 10*3/uL MPV 9.0 L (9.5-12.2) fL Lymphocytes # 0.84 L (0.90-5.00) 10*3/uL Eosinophils # 0.03 L (0.04-0.35) 10*3/uL Sodium (137-145) mmol/L Chloride (98-107) mmol/L BUN (9-20) mg/dL Creatinine (0.66-1.25) mg/dL Glucose (74-99) mg/dL POC Glucose (mg/dL) 167 H 271 H (70-110) mg/dL AST (17-59) U/L ALT (4-49) U/L 01/09/25 01/09/25 01/09/25 Range/Units 06:34 07:13 12:14 RBC (4.40-5.60) 10*6/uL Hgb (13.0-17.0) g/dL Hct (39.6-50.0) % MCH (27.0-32.0) pg RDW (11.5-14.5) % Plt Count (140-440) 10*3/uL MPV (9.5-12.2) fL Lymphocytes # (0.90-5.00) 10*3/uL Eosinophils # (0.04-0.35) 10*3/uL Sodium 132 L (137-145) mmol/L Chloride 95 L (98-107) mmol/L BUN 35 H (9-20) mg/dL Creatinine 4.73 H (0.66-1.25) mg/dL Glucose 159 H (74-99) mg/dL POC Glucose (mg/dL) 178 H 163 H (70-110) mg/dL AST 85 H (17-59) U/L ALT 77 H (4-49) U/L Assessment and Plan Assessment: 1. End-stage renal disease maintained on hemodialysis on Thursday schedule. 2. UTI on antibiotics. 3. 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 Follows with urology outpatient. 4. Anemia of chronic kidney disease maintained on Aranesp. 5. Hypertension with chronic kidney disease. Hydralazine dose increased. 6. Diabetes mellitus. Plan: Hemodialysis in a.m. Continue with antibiotics as per ID.
--- NOTE | 2025-01-09 12:52 | P.PN ---
Subjective Progress Note Date: 01/09/25 SURGICAL PROGRESS NOTE CHIEF COMPLAINT: Rectal thickening, diarrhea HISTORY OF PRESENT ILLNESS: Patient scheduled for colonoscopy today. CT scan had reported rectal thickening. Patient completed most of the bowel prep. He is still having some thicker stools. He did receive Plavix yesterday morning. WBC 8 hemoglobin 11.1. PHYSICAL EXAM: VITAL SIGNS: Reviewed. GENERAL: Well-developed in no acute distress. ABDOMEN: Soft. Nondistended. Nontender. NEUROLOGIC: Alert and oriented. Cranial nerves II through XII grossly intact. ASSESSMENT: 1. Rectal wall thickening noted on CT scan PLAN: -Patient scheduled for colonoscopy today with Dr. Kuo Physician Operations Associate note has been reviewed by physician. Signing provider agrees with the documented findings, assessment, and plan of care. Objective - Vital Signs Vital signs: Vital Signs Temp 98.4 F 01/09/25 07:10 Pulse 82 01/09/25 07:10 Resp 16 01/09/25 07:10 BP 169/67 01/09/25 09:37 Pulse Ox 99 01/09/25 07:10 FiO2 Intake & Output 01/08/25 01/09/25 01/09/25 18:59 06:59 18:59 Intake Total 176 Output Total 300 300 Balance -300 -124 Intake: Oral 176 Output: Urine 300 300 Other: Voiding Method Indwelling Catheter Indwelling Catheter Indwelling Catheter # Bowel Movements 3 1 - Labs CBC & Chem 7: 01/09/25 06:34 01/09/25 06:34 Labs: Abnormal Lab Results - Last 24 Hours (Table) 01/08/25 01/08/25 01/08/25 Range/Units 12:11 17:09 20:13 RBC (4.40-5.60) 10*6/uL Hgb (13.0-17.0) g/dL Hct (39.6-50.0) % MCH (27.0-32.0) pg RDW (11.5-14.5) % Plt Count (140-440) 10*3/uL MPV (9.5-12.2) fL Lymphocytes # (0.90-5.00) 10*3/uL Eosinophils # (0.04-0.35) 10*3/uL Sodium (137-145) mmol/L Chloride (98-107) mmol/L BUN (9-20) mg/dL Creatinine (0.66-1.25) mg/dL Glucose (74-99) mg/dL POC Glucose (mg/dL) 181 H 167 H 271 H (70-110) mg/dL AST (17-59) U/L ALT (4-49) U/L 01/09/25 01/09/25 01/09/25 Range/Units 06:34 06:34 07:13 RBC 3.28 L (4.40-5.60) 10*6/uL Hgb 11.1 L (13.0-17.0) g/dL Hct 31.1 L (39.6-50.0) % MCH 33.8 H (27.0-32.0) pg RDW 16.0 H (11.5-14.5) % Plt Count 134 L (140-440) 10*3/uL MPV 9.0 L (9.5-12.2) fL Lymphocytes # 0.84 L (0.90-5.00) 10*3/uL Eosinophils # 0.03 L (0.04-0.35) 10*3/uL Sodium 132 L (137-145) mmol/L Chloride 95 L (98-107) mmol/L BUN 35 H (9-20) mg/dL Creatinine 4.73 H (0.66-1.25) mg/dL Glucose 159 H (74-99) mg/dL POC Glucose (mg/dL) 178 H (70-110) mg/dL AST 85 H (17-59) U/L ALT 77 H (4-49) U/L
[2025-01-09] MEDS ORDERED: PROPOFOL 10 MG/ML 20 ML VIAL IV ONE (15:08)
[2025-01-09] MEDS: IV FLUID CONTINUATION 1,000 ML IV ONE (15:10)
--- NOTE | 2025-01-09 15:30 | P.OP ---
Date of Procedure: 01/09/25 Preoperative Diagnosis: Diarrhea Proctitis Postoperative Diagnosis: Poor colon prep Procedure(s) Performed: Colonoscopy Anesthesia: MAC Surgeon: Evan Kuo Pathology: none sent Condition: stable Disposition: PACU Description of Procedure: The patient was placed on the endoscopy table in the lateral position. He received IV sedation. Digital rectal exam was performed. There was a large amount of liquid stool in the rectum. The colonoscope was then placed the patient's anus and then placed into the rectum. There was a large amount of liquid stool which limited the view of the mucosa. The scope was advanced into the proximal rectum and the liquid stool prevented any visualization of the c olon. At this point the scope was withdrawn. The patient will need to be reprepped for colonoscopy as an outpatient.
[2025-01-09 17:14] LABS: Glucose,Whole Blood 132 mg/dL (70-110)
[2025-01-09 20:14] LABS: Glucose,Whole Blood 157 mg/dL (70-110)
--- NOTE | 2025-01-09 22:22 | P.PN ---
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 On today's evaluation that is 01/09/2025, patient has been afebrile, patient is breathing comfortably and is currently on room air, patient denies having any chest pain and cough, patient denies nausea vomiting did have diarrhea from the bowel prep that he received this morning. Patient white count is 8.52 creatinine is 4.73 Objective - Vital Signs Vital signs: Vital Signs Temp 98.7 F 01/09/25 12:14 Pulse 72 01/09/25 12:14 Resp 14 01/09/25 12:14 BP 169/74 01/09/25 12:14 Pulse Ox 98 01/09/25 12:14 FiO2 Intake & Output 01/08/25 01/09/25 01/09/25 18:59 06:59 18:59 Intake Total 176 Output Total 300 300 Balance -300 -124 Intake: Oral 176 Output: Urine 300 300 Other: Voiding Method Indwelling Catheter Indwelling Catheter Indwelling Catheter # Bowel Movements 3 1 - Exam GENERAL DESCRIPTION: Middle-age male lying in bed in no distress RESPIRATORY SYSTEM: Unlabored breathing , decreased breath sounds at bases HEART: S1 S2 regular rate and rhythm , ABDOMEN: Soft , no tenderness EXTREMITIES: No edema feet - Labs CBC & Chem 7: 01/09/25 06:34 01/09/25 06:34 Labs: Abnormal Lab Results - Last 24 Hours (Table) 01/08/25 01/08/25 01/09/25 Range/Units 17:09 20:13 06:34 RBC 3.28 L (4.40-5.60) 10*6/uL Hgb 11.1 L (13.0-17.0) g/dL Hct 31.1 L (39.6-50.0) % MCH 33.8 H (27.0-32.0) pg RDW 16.0 H (11.5-14.5) % Plt Count 134 L (140-440) 10*3/uL MPV 9.0 L (9.5-12.2) fL Lymphocytes # 0.84 L (0.90-5.00) 10*3/uL Eosinophils # 0.03 L (0.04-0.35) 10*3/uL Sodium (137-145) mmol/L Chloride (98-107) mmol/L BUN (9-20) mg/dL Creatinine (0.66-1.25) mg/dL Glucose (74-99) mg/dL POC Glucose (mg/dL) 167 H 271 H (70-110) mg/dL AST (17-59) U/L ALT (4-49) U/L 01/09/25 01/09/25 01/09/25 Range/Units 06:34 07:13 12:14 RBC (4.40-5.60) 10*6/uL Hgb (13.0-17.0) g/dL Hct (39.6-50.0) % MCH (27.0-32.0) pg RDW (11.5-14.5) % Plt Count (140-440) 10*3/uL MPV (9.5-12.2) fL Lymphocytes # (0.90-5.00) 10*3/uL Eosinophils # (0.04-0.35) 10*3/uL Sodium 132 L (137-145) mmol/L Chloride 95 L (98-107) mmol/L BUN 35 H (9-20) mg/dL Creatinine 4.73 H (0.66-1.25) mg/dL Glucose 159 H (74-99) mg/dL POC Glucose (mg/dL) 178 H 163 H (70-110) mg/dL AST 85 H (17-59) U/L ALT 77 H (4-49) U/L Assessment and Plan (1) UTI (urinary tract infection) Current Visit: Yes Status: Acute Code(s): N39.0 - URINARY TRACT INFECTION, SITE NOT SPECIFIED SNOMED Code(s): 62825151 (2) Failure of outpatient treatment Current Visit: Yes Status: Acute Code(s): Z78.9 - OTHER SPECIFIED HEALTH STATUS SNOMED Code(s): 490649535 (3) Diarrhea Current Visit: Yes Status: Acute Code(s): R19.7 - DIARRHEA, UNSPECIFIED SNOMED Code(s): 59330130 Plan: 1patient presented hospital with burning urine suprapubic discomfort and significantly positive UA concerning for symptomatic UTI in this patient who recently did go to a drug-resistant Enterobacter feeling outpatient oral Cipro therapy 2-we will obtain ultrasound of the kidney bladder because of recurrent UTI to mention evidence of any structural abnormality 3-patient did have improvement in his urinary symptoms however urine cultures came back negative, repeat UA is positive patient received adequate meropenem while inpatient which has been discontinued 4patient CT was suggestive of possible proctitis General Surgery patient is currently undergoing bowel prep for colonoscopy scheduled for this afternoon results will be followed Dictation was produced using [employer] dictation software. please excuse any grammatical, word or spelling errors. Time with Patient: Less than 30
[2025-01-10 07:07] LABS: Glucose,Whole Blood 132 mg/dL (70-110)
--- NOTE | 2025-01-10 09:54 | P.PN ---
Subjective Progress Note Date: 01/09/25 HISTORY OF PRESENT ILLNESS: This is a 59-year-old male with a previous medical history significant for coronary artery disease status post myocardial infarction back in 2014 and in 2022 status post PCI of the LAD as well as LCx, last stent placed was in 2022, hypertension and hypertensive cardiovascular disease, mixed hyperlipidemia, diabetes mellitus type 2, legally blind, history of ischemic cerebrovascular accident in the past with left-sided weakness, history of recurrent TIA, history of enlarged prostate, history of anxiety and depressive disorder, history of end-stage renal disease on hemodialysis Thursday and Thursday via fistula in the left upper extremity, patient was recently seen in the office for symptoms suggestive of urinary tract infection that is complicated UTI, he was started on ciprofloxacin 500 mg orally once every day and the patient ended up coming back to the emergency department because he was not doing better, he was seen in the emergency department at [facility] today with increased burning sensation and pain in the suprapubic area, his urinalysis was quite positive, last time he was in the hospital his urine culture was positive for enterobacteria clocae that was resistant to a lot of antibiotics including ceftriaxone and he did receive IV antibiotic at that time, in any regard patient was admitted to the hospital for evaluation of failed outpatient treatment of a complicated UTI with multidrug-resistant organism, infectious disease consultation was obtained, Discontinue ceftriaxone start the patient on Fortaz 1 g IV piggyback every 24 hours, he may need to be started on Avycaz 01/02: Patient is laying down in bed in no apparent distress, he continues to have some pain at the tip of the penis, his urine culture came back negative so far, patient was on oral antibiotic in the form of ciprofloxacin prior to the arrival, continue meropenem, continue to follow-up with the patient very closely, patient did have an ultrasound of the abdomen did not show evidence of acute abnormalities, will change his Garcia catheter, and will discuss with infectious disease the plan of action hemodialysis tomorrow morning 01/03: Patient is laying down in bed in no apparent distress, he is getting his hemodialysis, he complained of some suprapubic pain at this time, he continued to have the pain in his penis, his Garcia catheter was changed, urine culture was repeated, left worse: Urine culture was contamination, continue meropenem 1 g piggyback every 24 hours after dialysis, follow-up with the patient very closely 01/04: Patient is laying down in bed in no apparent distress, he did have dialysis yesterday, he is not having fever or chills at this point in time, he seems to be tolerating treatment well, he did have a good bowel movement yesterday, patient also had his Garcia catheter reinserted, infectious disease service recommended to repeat a urine culture from the new Garcia catheter, continue current treatment with meropenem 1 g piggyback every 24 hours, follow- up with the patient very closely, further recommendation is to follow the patient progression and the webmethods consultant recommendation. 01/05: Patient is laying down in bed in no apparent distress, is feeling nauseated today with significant postnasal drip,, he has no pain in the penis, he has been tolerating treatment very well, today would be stay at 5 antibiotic, I will start the patient on Flonase nasal spray 1 puff in each nostril twice every day as well as loratadine 10 mg once every day. Follow-up with the patient very closely. 01/06: Patient continues to be somewhat nauseated, he is not able to keep anything down, he did not have any breakfast today, he did have diarrhea, abdominal x-ray was done, and that showed evidence of fecal material throughout the colon, patient will be sent for a CT scan of the abdomen pelvis with oral contrast, I will start the patient on Dulcolax suppository 10 mg x 1, patient will really stay in the hospital since he is not able to keep anything down and he has diabetes, therefore we will cancel discharge, and keep the patient in the hospital for another 24 hours, pending the result of the CT scan of the abdomen and pelvis, hopefully he will be able to discharge home tomorrow morning. 01/07: Patient is laying down in bed in no apparent distress, he continues to be somewhat nauseated at this time, he is eating better than yesterday he continues to have some soft stool, he was started on Questran by infectious disease, feeling a bit better, not out of the cuadra, his CT scan of the abdomen pelvis showed significant circumferential wall thickening of the rectum suggestive of proctitis rule out adenocarcinoma, I will consult general surgery for possible direct visualization, patient is off antibiotic at this time, follow-up with the patient very closely 01/08: Patient is sitting up in bed in no apparent distress, he did eat breakfast today, he denies any nausea or vomiting at this time, he continues to have some pressure in the rectum, await general surgery evaluation for the circumferential thickness of the rectum, patient is scheduled to go for colonoscopy next week, francis was seen by Surgery and he is scheduled for Colonoscopy in AM 01/09: Patient is laying down in bed in no apparent distress, he continues to have uncontrolled hypertension, I will increase his losartan to 100 mg once every day, continue hydralazine 100 mg 3 times every day, continue also metoprolol 50 mg once every day, patient scheduled to go for colonoscopy today, if the colonoscopy is okay patient hopefully can be discharged home in the afternoon otherwise he will stay for tomorrow morning, patient appears to be stable at this point in time for discharge home. REVIEW OF SYSTEMS: Constitutional: No documented fever, no chills, no night sweats. Significant weight change. Generalized weakness, fatigue or lethargy. No daytime sleepiness. EENT: No headache. Patient is legally blind, positive for loss of vision. No loss of Hearing, no ringing in the ears, no dizziness. No nasal drainage or congestion. No epistaxis. No sore throat. Lungs: No shortness of breath, occasional cough, no sputum production. No wheezing. Reports dyspnea with activity. Cardiovascular: No chest pain, no lower extremity edema. No palpitations. No paroxysmal nocturnal dyspnea. No orthopnea. No lightheadedness or dizziness. No syncopal episodes. Abdominal: Reports abdominal pain. Positive for nausea, no vomiting. occasiona; diarrhea. Positive for constipation. No bloody stool reports loss of appetite. Genitourinary: Positive for dysuria, increased frequency, urgency, Garcia catheter in place. Musculoskeletal: No myalgias. No muscle weakness, no gait dysfunction, no frequent falls. No back pain. No neck pain. Integumentary: No wounds, no lesions. No rash or pruritus. No unusual bruising. No change in hair or nails. Neurologic: No aphasia. No facial droop. No change in mentation. No head injury. No headache. No paralysis. Positive for paresthesia due to diabetic polyneuropathy Psychiatric: Positive for depression. No anxiety. No mood swings. Endocrine: Positive for abnormal blood sugars. Significant weight change. PHYSICAL EXAMINATION: General: 59-year-old male laying down in bed in no apparent distress. HEENT: Head is atraumatic, normocephalic, pupils were equal round reactive to light and recommendation, extraocular muscle movement were intact, sclera nonict ryan, conjunctivae were pale, mucous membranes of the mouth are somewhat dry. Neck: Supple, no JVP, normal carotid upstroke bilaterally, no lymphadenopathy. Chest: Decreased breath sounds at the bases, few rhonchi, no expiratory wheezes, no chest wall tenderness, no intercostal retractions. Heart: First heart sound is normal, second heart sounds normal systolic ejection murmur 2/6 located in the left sternal border. Abdomen: Soft, mild tenderness in the epigastric as well as left lower quadrant mildly distended, positive bowel sounds. Extremities: There is no edema no calf tenderness DP +2 bilaterally. Neurologic examination: Patient is awake alert and oriented x3, cranial nerves II-12 appear grossly intact, left-sided weakness that has been chronic. ASSESSMENT AND PLAN: 1. complicated UTI with SIRS due to chronic indwelling Garcia catheterization . Patient was treated with 5-day course of meropenem 2. Intractable nausea and vomiting likely combination of IV antibiotic as well as fecal stasis. Patient did have a CT scan of the abdomen pelvis that showed evidence of extensive circumferential wall thickening of the rectum suggestive of proctitis rule out adenocarcinoma, patient is scheduled for colonoscopy today. 2. End-stage renal disease on hemodialysis Thursday and Thursday. We will continue with current treatment plan. 3. Generalized weakness likely related to poor oral intake as well as worsening anemia. Continue treatment as in previous paragraphs. 4. Coronary artery disease status post recent heart catheterization 06/17/2024 that showed stable disease with patent stented arteries of the LAD and LCx. Continue patient on metoprolol ER 50 mg orally once every day, isosorbide mononitrate 30 mg orally once every day, hydralazine 50 mg orally 3 times every day, atorvastatin 80 mg once every day, ranolazine 500 mg orally twice every day, continue aspirin and Plavix 5. Hypertension and hypertensive cardiovascular disease. Continue patient on metoprolol ER 50 mg once every day, increase hydralazine 100 mg orally 3 times every day, increase losartan to 100 mg once every day, continue metoprolol 50 mg orally once every day monitor the patient blood pressure very closely. 6. Mixed hyperlipidemia. Continue patient on atorvastatin 80 mg once every day, monitor the patient lipid panel, keep LDL 55 7. PAD. Stable at this time. Continue atorvastatin for secondary prevention. 8. Diabetes mellitus type 2 . Continue patient on Levemir 17 units at bedtime along with 9 units before each meal 3 times every day, monitor the patient blood sugar before each meal and bedtime. 9. History of CVA in the past with left-sided weakness and recurrent TIA. Continue patient on atorvastatin 80 mg once every day, continue patient on Plavi x 75 mg once every day as well as aspirin 80 mg every day. 10. Enlarged prostate with urinary retention. Continue Flomax 0.4 mg orally twice every day. 11. History of gout. Continue patient on allopurinol 100 mg once every day. 12. History of anxiety and depressive disorder. Continue citalopram 60 mg orally once every day. 13. Anemia multifactorial monitor the patient hemoglobin very closely, transfuse for hemoglobin less than 7. 14. if the patient cleared after colonoscopy can be discharged home this afternoon or tomorrow morning. Objective - Vital Signs Vital signs: Vital Signs Temp 98.1 F 01/09/25 01:19 Pulse 72 01/09/25 01:19 Resp 14 01/09/25 01:19 BP 178/76 01/09/25 01:19 Pulse Ox 99 01/09/25 01:19 FiO2 Intake & Output 01/08/25 01/08/25 01/09/25 06:59 18:59 06:59 Intake Total 240 176 Output Total 100 300 200 Balance 140 -300 -24 Intake: Oral 240 176 Output: Urine 100 300 200 Other: Voiding Method Indwelling Catheter Indwelling Catheter Indwelling Catheter # Bowel Movements 3 1 - Labs CBC & Chem 7: 01/07/25 15:12 01/07/25 15:12 Labs: Abnormal Lab Results - Last 24 Hours (Table) 01/08/25 01/08/25 01/08/25 Range/Units 07:01 12:11 17:09 POC Glucose (mg/dL) 159 H 181 H 167 H (70-110) mg/dL 01/08/25 Range/Units 20:13 POC Glucose (mg/dL) 271 H (70-110) mg/dL
--- NOTE | 2025-01-10 10:16 | P.PN ---
Subjective Progress Note Date: 01/10/25 SURGICAL PROGRESS NOTE CHIEF COMPLAINT: Rectal thickening, diarrhea HISTORY OF PRESENT ILLNESS: Patient sitting in bed comfortably. He is to get hemodialysis this morning. He does report some nausea and some mild abdominal discomfort. Colonoscopy had reported poor bowel prep. PHYSICAL EXAM: VITAL SIGNS: Reviewed. GENERAL: Well-developed in no acute distress. ABDOMEN: Soft. Nondistended. Mild diffuse tenderness NEUROLOGIC: Alert and oriented. Cranial nerves II through XII grossly intact. ASSESSMENT: 1. Rectal wall thickening noted on CT scan PLAN: - Colonoscopy with poor bowel prep. Recommend outpatient colonoscopy Physician Funeral Assistant note has been reviewed by physician. Signing provider agrees with the documented findings, assessment, and plan of care. Objective - Vital Signs Vital signs: Vital Signs Temp 98.7 F 01/10/25 07:29 Pulse 73 01/10/25 07:29 Resp 18 01/10/25 07:29 BP 167/71 01/10/25 07:29 Pulse Ox 100 01/10/25 07:29 FiO2 Intake & Output 01/09/25 01/10/25 01/10/25 18:59 06:59 18:59 Intake Total 1120 240 Output Total 550 300 Balance 570 -60 Intake: IV 300 Oral 820 240 Output: Urine 550 300 Other: Voiding Method Indwelling Catheter Indwelling Catheter # Bowel Movements 2 - Labs CBC & Chem 7: 01/09/25 06:34 01/09/25 06:34 Labs: Abnormal Lab Results - Last 24 Hours (Table) 01/09/25 01/09/25 01/09/25 Range/Units 12:14 17:13 20:13 POC Glucose (mg/dL) 163 H 132 H 157 H (70-110) mg/dL 01/10/25 Range/Units 07:06 POC Glucose (mg/dL) 132 H (70-110) mg/dL
[2025-01-10 12:30] LABS: Glucose,Whole Blood 120 mg/dL (70-110)
--- NOTE | 2025-01-10 12:59 | P.DS ---
Providers Date of admission: 01/01/25 03:00 Expected date of discharge: 01/10/25 Attending physician: Diana Broderick Consults: 01/01/25 10:02 Consult Physician Routine Consulting Provider: Lauren Angel Consult Reason/Comments: Complicated UTI Do you want consulting provider notified?: Yes 01/01/25 10:03 Consult Physician Routine Consulting Provider: Jeff Zheng Consult Reason/Comments: HD Do you want consulting provider notified?: Yes 01/09/25 12:47 Consult Physician Routine Consulting Provider: Evan Kuo Consult Reason/Comments: rectal thickening Do you want consulting provider notified?: Already Contacted Primary care physician: Diana Broderick [facility] Course: HISTORY OF PRESENT ILLNESS: This is a 59-year-old male with a previous medical history significant for coronary artery disease status post myocardial infarction back in 2014 and in 2022 status post PCI of the LAD as well as LCx, last stent placed was in 2022, hypertension and hypertensive cardiovascular disease, mixed hyperlipidemia, diabetes mellitus type 2, legally blind, history of ischemic cerebrovascular accident in the past with left-sided weakness, history of recurrent TIA, history of enlarged prostate, history of anxiety and depressive disorder, history of end-stage renal disease on hemodialysis Thursday and Thursday via fistula in the left upper extremity, patient was recently seen in the office for symptoms suggestive of urinary tract infection that is complicated UTI, he was started on ciprofloxacin 500 mg orally once every day and the patient ended up coming back to the emergency department because he was not doing better, he was seen in the emergency department at [facility] today with increased burning sensation and pain in the suprapubic area, his urinalysis was quite positive, last time he was in the hospital his urine culture was positive for enterobacteria clocae that was resistant to a lot of antibiotics including ceftriaxone and he did receive IV antibiotic at that time, in any regard patient was admitted to the hospital for evaluation of failed outpatient treatment of a complicated UTI with multidrug-resistant organism, infectious disease consultation was obtained, Discontinue ceftriaxone start the patient on Fortaz 1 g IV piggyback every 24 hours, he may need to be started on Avycaz 01/02: Patient is laying down in bed in no apparent distress, he continues to have some pain at the tip of the penis, his urine culture came back negative so far, patient was on oral antibiotic in the form of ciprofloxacin prior to the ar rival, continue meropenem, continue to follow-up with the patient very closely, patient did have an ultrasound of the abdomen did not show evidence of acute abnormalities, will change his Garcia catheter, and will discuss with infectious disease the plan of action hemodialysis tomorrow morning 01/03: Patient is laying down in bed in no apparent distress, he is getting his hemodialysis, he complained of some suprapubic pain at this time, he continued to have the pain in his penis, his Garcia catheter was changed, urine culture was repeated, left worse: Urine culture was contamination, continue meropenem 1 g piggyback every 24 hours after dialysis, follow-up with the patient very closely 01/04: Patient is laying down in bed in no apparent distress, he did have dialysis yesterday, he is not having fever or chills at this point in time, he seems to be tolerating treatment well, he did have a good bowel movement yesterday, patient also had his Garcia catheter reinserted, infectious disease service recommended to repeat a urine culture from the new Garcia catheter, continue current treatment with meropenem 1 g piggyback every 24 hours, follow- up with the patient very closely, further recommendation is to follow the patient progression and the strategic solutions consultant recommendation. 01/05: Patient is laying down in bed in no apparent distress, is feeling nauseated today with significant postnasal drip,, he has no pain in the penis, he has been tolerating treatment very well, today would be stay at 5 antibiotic, I will start the patient on Flonase nasal spray 1 puff in each nostril twice every day as well as loratadine 10 mg once every day. Follow-up with the patient very closely. 01/06: Patient continues to be somewhat nauseated, he is not able to keep anything down, he did not have any breakfast today, he did have diarrhea, abdominal x-ray was done, and that showed evidence of fecal material throughout the colon, patient will be sent for a CT scan of the abdomen pelvis with oral contrast, I will start the patient on Dulcolax suppository 10 mg x 1, patient will really stay in the hospital since he is not able to keep anything down and he has diabetes, therefore we will cancel discharge, and keep the patient in the hospital for another 24 hours, pending the result of the CT scan of the abdomen and pelvis, hopefully he will be able to discharge home tomorrow morning. 01/07: Patient is laying down in bed in no apparent distress, he continues to be somewhat nauseated at this time, he is eating better than yesterday he continues to have some soft stool, he was started on Questran by infectious disease, feeling a bit better, not out of the cuadra, his CT scan of the abdomen pelvis showed significant circumferential wall thickening of the rectum suggestive of proctitis rule out adenocarcinoma, I will consult general surgery for possible direct visualization, patient is off antibiotic at this time, follow-up with the patient very closely 01/08: Patient is sitting up in bed in no apparent distress, he did eat breakfast today, he denies any nausea or vomiting at this time, he continues to have some pressure in the rectum, await general surgery evaluation for the circumferential thickness of the rectum, patient is scheduled to go for colonoscopy next week, francis was seen by Surgery and he is scheduled for Colonoscopy in AM 01/09: Patient is laying down in bed in no apparent distress, he continues to have uncontrolled hypertension, I will increase his losartan to 100 mg once every day, continue hydralazine 100 mg 3 times every day, continue also metoprolol 50 mg once every day, patient scheduled to go for colonoscopy today, if the colonoscopy is okay patient hopefully can be discharged home in the afternoon otherwise he will stay for tomorrow morning, patient appears to be stable at this point in time for discharge home. 01/10: Patient is laying down in bed in no apparent distress, he is getting his hemodialysis, his colon prep was not very good yesterday, colonoscopy was useless, patient will need to have a repeated colonoscopy as an outpatient will take care of that when the patient is discharged, patient is medically stable for discharge, his prescription were sent to the pharmacy, after dialysis patient will be given lunch and if he is tolerating his lunch he can be discharged home and follow-up with me as an outpatient next week. Discharge Diagnoses: 1. complicated UTI with SIRS due to chronic indwelling Garcia catheterization . 2. Intractable nausea and vomiting likely combination of IV antibiotic as well as fecal stasis. 2. End-stage renal disease on hemodialysis Thursday and Thursday. 3. Generalized weakness likely related to poor oral intake as well as worsening anemia. 4. Coronary artery disease status post recent heart catheterization 06/17/2024 that showed stable disease with patent stented arteries of the LAD and LCx. 5. Hypertension and hypertensive cardiovascular disease. 6. Mixed hyperlipidemia. 7. PAD. 8. Diabetes mellitus type 2 . 9. History of CVA in the past with left-sided weakness and recurrent TIA. 10. Enlarged prostate 11. History of gout. 12. History of anxiety and depressive disorder. 13. Anemia multifactorial 14. Urinary retention due to bladder Atony Patient Condition at Discharge: Fair Plan - Discharge Summary New Discharge Prescriptions: New Loratadine [Claritin] 10 mg PO DAILY tab Fluticasone Nasal [place] [Flonase Nasal [place]] 1 spray EA NOSTRIL BID #0 ml hydrALAZINE HCL [Apresoline] 100 mg PO TID #90 tab Losartan [Cozaar] 100 mg PO DAILY #30 tab Cholestyramine Resin [Questran Packet] 4 gm PO BID@1000,1800 #60 packet amLODIPine [Norvasc] 5 mg PO DAILY #30 tab Continue Tamsulosin [Flomax] 0.4 mg PO BID Citalopram Hydrobromide [CeleXA] 20 mg PO DAILY allopurinoL [Zyloprim] 100 mg PO DAILY Atorvastatin [Lipitor] 80 mg PO HS Furosemide [Lasix] 80 mg PO DAILY Nitroglycerin Sl Tabs [Nitrostat] 0.4 mg SL Q5M PRN PRN Reason: Chest Pain Isosorbide Mononitrate ER [Imdur] 30 mg PO DAILY #90 tab Insulin Glargine,Hum.rec.anlog [Lantus Solostar Pen] 17 units SQ HS Insulin Lispro [humaLOG Kwikpen] 9 unit SQ AC-TID cycloSPORINE 0.05% OPHTH SOLN [Restasis] 1 applicator BOTH EYES BID Metoprolol Succinate (ER) [Toprol XL] 50 mg PO DAILY Ranolazine [Ranexa] 500 mg PO Q12HR #60 tab Clopidogrel [Plavix] 75 mg PO DAILY Linaclotide [Linzess] 72 mcg PO DAILY Discontinued Losartan [Cozaar] 25 mg PO DAILY hydrALAZINE HCL [Apresoline] 50 mg PO TID Discharge Medication List Tamsulosin [Flomax] 0.4 mg PO BID 11/05/17 [History] Citalopram Hydrobromide [CeleXA] 20 mg PO DAILY 12/12/18 [History] allopurinoL [Zyloprim] 100 mg PO DAILY 04/05/19 [History] Atorvastatin [Lipitor] 80 mg PO HS 12/30/19 [History] Metoprolol Succinate (ER) [Toprol XL] 50 mg PO DAILY 09/19/23 [History] Ranolazine [Ranexa] 500 mg PO Q12HR #60 tab 09/21/23 [Rx] Furosemide [Lasix] 80 mg PO DAILY 10/16/23 [History] Nitroglycerin Sl Tabs [Nitrostat] 0.4 mg SL Q5M PRN 10/16/23 [History] Clopidogrel [Plavix] 75 mg PO DAILY 06/16/24 [History] Isosorbide Mononitrate ER [Imdur] 30 mg PO DAILY #90 tab 07/01/24 [Rx] Insulin Glargine,Hum.rec.anlog [Lantus Solostar Pen] 17 units SQ HS 07/12/24 [History] Insulin Lispro [humaLOG Kwikpen] 9 unit SQ AC-TID 07/12/24 [History] cycloSPORINE 0.05% OPHTH SOLN [Restasis] 1 applicator BOTH EYES BID 10/31/24 [History] Linaclotide [Linzess] 72 mcg PO DAILY 01/01/25 [History] Cholestyramine Resin [Questran Packet] 4 gm PO BID@1000,1800 #60 packet 01/06/25 [Rx] Fluticasone Nasal [place] [Flonase Nasal [place]] 1 spray EA NOSTRIL BID #0 ml 01/06/25 [Rx] Loratadine [Claritin] 10 mg PO DAILY tab 01/06/25 [Rx] Losartan [Cozaar] 100 mg PO DAILY #30 tab 01/10/25 [Rx] amLODIPine [Norvasc] 5 mg PO DAILY #30 tab 01/10/25 [Rx] hydrALAZINE HCL [Apresoline] 100 mg PO TID #90 tab 01/10/25 [Rx] Follow up Appointment(s)/Referral(s): Diana Broderick MD [Primary Care Provider] - 01/17/25 1:45 pm (Appointment is with Velma SERRANO) Lauren Angel MD [STAFF PHYSICIAN] - 01/16/25 2:15 pm () Patient Instructions/Handouts: Cholestyramine (By mouth), Hydralazine (By mouth), Amlodipine (By mouth), Losartan (By mouth), Urinary Tract Infection in Men (DC), End Stage Kidney Disease (DC) Discharge Disposition: HOME WITH HOME HEALTH SERVICES
[2025-01-10 13:21] VITALS: BP 164/71; PULSE 69; RESP 20; TEMP 97.2
--- NOTE | 2025-01-10 15:14 | P.PN ---
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 On today's evaluation that is 01/10/2025, Patient is afebrile this morning patient denies having any chest pain shortness of breath or cough, the patient is currently on room air, patient denies any abdominal pain no diarrhea no nausea no vomiting, patient mention feeling better wants to go home. No new lab has been obtained today multiple culture negative Objective - Vital Signs Vital signs: Vital Signs Temp 97.2 F L 01/10/25 13:20 Pulse 69 01/10/25 13:20 Resp 20 01/10/25 13:20 BP 164/71 01/10/25 13:20 Pulse Ox 99 01/10/25 13:20 FiO2 Intake & Output 01/09/25 01/10/25 01/10/25 18:59 06:59 18:59 Intake Total 1120 240 600 Output Total 257 140 7965 Balance Intake: IV 300 Oral 820 240 Hemodialysis 600 Output: Urine 550 300 Hemodialysis 2700 Hemodialysis Net Amount 2100 Other: Voiding Method Indwelling Catheter Indwelling Catheter Indwelling Catheter # Bowel Movements 2 - Exam GENERAL DESCRIPTION: Middle-age male lying in bed in no distress RESPIRATORY SYSTEM: Unlabored breathing , decreased breath sounds at bases HEART: S1 S2 regular rate and rhythm , ABDOMEN: Soft , no tenderness EXTREMITIES: No edema feet - Labs CBC & Chem 7: 01/09/25 06:34 01/09/25 06:34 Labs: Abnormal Lab Results - Last 24 Hours (Table) 01/09/25 01/09/25 01/10/25 Range/Units 17:13 20:13 07:06 POC Glucose (mg/dL) 132 H 157 H 132 H (70-110) mg/dL 01/10/25 Range/Units 12:29 POC Glucose (mg/dL) 120 H (70-110) mg/dL Assessment and Plan (1) UTI (urinary tract infection) Current Visit: Yes Status: Acute Code(s): N39.0 - URINARY TRACT INFECTION, SITE NOT SPECIFIED SNOMED Code(s): 85679395 (2) Failure of outpatient treatment Current Visit: Yes Status: Acute Code(s): Z78.9 - OTHER SPECIFIED HEALTH STATUS SNOMED Code(s): 421625230 (3) Diarrhea Current Visit: Yes Status: Acute Code(s): R19.7 - DIARRHEA, UNSPECIFIED SNOMED Code(s): 93203549 Plan: 1patient presented hospital with burning urine suprapubic discomfort and significantly positive UA concerning for symptomatic UTI in this patient who recently did go to a drug-resistant Enterobacter feeling outpatient oral Cipro therapy 2-we will obtain ultrasound of the kidney bladder because of recurrent UTI to mention evidence of any structural abnormality 3-patient did have improvement in his urinary symptoms however urine cultures came back negative, repeat UA is positive patient received adequate meropenem while inpatient which has been discontinued 4patient CT was suggestive of possible proctitis General Surgery patient is status post colonoscopy with a poor prep patient did have resolution of his symptoms feeling better wants to go home no need for antibiotics on discharge Dictation was produced using [employer] dictation software. please excuse any grammatical, word or spelling errors.
== END 2025-01-10 15:27 | disposition home or self-care (01) | DRG 698 ==
LOC: EC 00:34 → 5NMEDONC 02:59 → OBSVTOIN 03:00 → 5NMEDONC 03:20
PROVIDERS: ADMIT Internal Medicine; ATTEND Internal Medicine
PROC: 5A1D70Z Performance of Urinary Filtration, Intermittent, Less than 6 Hours Per Day (ICD-10-PCS; 2025-01-06)
PROC: 0DJD8ZZ Inspection of Lower Intestinal Tract, Via Natural or Artificial Opening Endoscopic (ICD-10-PCS; principal; 2025-01-09 07:45)
DX: T83.511A Infection and inflammatory reaction due to indwelling urethral catheter, initial encounter (principal); N18.6 End stage renal disease; I13.11 Hypertensive heart and chronic kidney disease without heart failure, with stage 5 chronic kidney disease, or end stage renal disease; D63.1 Anemia in chronic kidney disease; I69.354 Hemiplegia and hemiparesis following cerebral infarction affecting left non-dominant side; R65.10 Systemic inflammatory response syndrome (SIRS) of non-infectious origin without acute organ dysfunction; E11.22 Type 2 diabetes mellitus with diabetic chronic kidney disease; Z99.2 Dependence on renal dialysis; M06.9 Rheumatoid arthritis, unspecified; F32.A Depression, unspecified; Z16.24 Resistance to multiple antibiotics; E11.42 Type 2 diabetes mellitus with diabetic polyneuropathy; Z79.4 Long term (current) use of insulin; Y84.6 Urinary catheterization as the cause of abnormal reaction of the patient, or of later complication, without mention of misadventure at the time of the procedure; N39.0 Urinary tract infection, site not specified; R53.1 Weakness; I25.10 Atherosclerotic heart disease of native coronary artery without angina pectoris; N40.1 Benign prostatic hyperplasia with lower urinary tract symptoms; R33.8 Other retention of urine; F41.9 Anxiety disorder, unspecified; E78.2 Mixed hyperlipidemia; K59.89 Other specified functional intestinal disorders; H91.90 Unspecified hearing loss, unspecified ear; I25.2 Old myocardial infarction; K59.00 Constipation, unspecified; H54.8 Legal blindness, as defined in USA; K62.89 Other specified diseases of anus and rectum; N31.2 Flaccid neuropathic bladder, not elsewhere classified; Z79.02 Long term (current) use of antithrombotics/antiplatelets; Z79.82 Long term (current) use of aspirin; Z79.899 Other long term (current) drug therapy; Z82.49 Family history of ischemic heart disease and other diseases of the circulatory system; Z87.440 Personal history of urinary (tract) infections; Z98.61 Coronary angioplasty status; Z98.42 Cataract extraction status, left eye; Z98.41 Cataract extraction status, right eye; Z90.49 Acquired absence of other specified parts of digestive tract; Z87.19 Personal history of other diseases of the digestive system
CPT/HCPCS: 36415; 45378; 51702; 74019; 74176; 76770; 80053; 81001; 83605; 83735; 84100; 84484; 85025; 87040; 87086; 87324; 90935; 96365; 99284